=== PATIENT | male | born 1930 | race Caucasian/White ===

== ENCOUNTER 2016-05-01 14:32 | Inpatient (IN) | payer OTHER ==
[~2016-05-01] VITALS: Ht 172.7 cm; Wt 63.2 kg
[~2016-05-01 14:32] MED LIST: ETOMIDATE 20 MG INJ ONE; SUCCINYLCHOLINE CHLORIDE 100 MG/5 ML SYG IV ONE
[2016-05-01 18:00] VITALS: BP 103/57; PULSE 79; RESP 17
[2016-05-01 18:35] VITALS: Ht 172.7 cm; Wt 63.2 kg
[2016-05-01 18:42] VITALS: PULSE 85
[2016-05-01 20:00] VITALS: BP 113/59; RESP 18
[2016-05-01 20:10] VITALS: PULSE 79
--- NOTE | 2016-05-01 20:27 | QN ---
Documentation Comment [id number] HOLLI LINDER MD May 01, 2016 20:27
[2016-05-01] MEDS ORDERED: ONDANSETRON 4 MG INJ IV PRN (20:30)
[2016-05-01] MEDS ORDERED: NACL 0.9% 3 ML SYG IV SCH (20:30)
[2016-05-01] MEDS ORDERED: BISACODYL 10 MG SUPP PR PRN (20:30)
[2016-05-01] MEDS ORDERED: ACETAMINOPHEN 650 MG SUPP PR PRN (20:30)
[2016-05-01] MEDS ORDERED: MAGNESIUM HYDROXIDE 30ML CUP PO PRN (20:30)
[2016-05-01] MEDS ORDERED: NA PHOSPHATE/BIPHOS 133 ML ENEMA PR PRN (20:30)
[2016-05-01] MEDS ORDERED: BISACODYL (EC) 5 MG TAB PO PRN (20:30)
[2016-05-01] MEDS ORDERED: LEVOFLOXACIN 500MG/D5W (PMX) 100 ML IVPB SCH (20:30)
[2016-05-01 21:49] LABS: TROPONIN-I 0.02 ng/ml (0.00-0.12)
[2016-05-01 21:50] LABS: CK-MB 3.87 ng/ml (0.0-2.4)
[2016-05-01] MEDS: METHYLPREDNISOLONE 40 MG INJ IV SCH (22:27)
[2016-05-02] VITALS (13 sets, daily range): BP systolic 102–120; BP diastolic 55–78; PULSE 83–90; RESP 15–84
--- NOTE | 2016-05-02 01:03 | HP ---
DATE OF ADMISSION: 05/01/2016 HISTORY OF PRESENT ILLNESS: An elderly male who himself is unable to give any detailed history pres ented from [facility] with shortness of breath, noted to have bronchitis and is being admit aislinn for further management. There is no family member at bedside, and the record from the transferr [facility] is limited. PAST MEDICAL HISTORY: Cannot be obtained. ALLERGY HISTORY, FAMILY HISTORY, SOCIAL HISTORY: Not available. REVIEW OF SYSTEMS: Cannot be obtained. PHYSICAL EXAMINATION: GENERAL: The patient is awake, weak, slow and lethargic but is mumbling at this point. VITAL SIGNS: Pulse 85, blood pressure 103/57. HEENT: Head is atraumatic, normocephalic. Right eye is cloudy. Mouth is dry, and patient is bleed ing from mouth and has no oral thrush noted. NECK: Supple. LUNGS: Few rhonchi, some wheezes. CARDIOVASCULAR: S1, S2 normal. ABDOMEN: Soft, nontender. Bowel sounds plus. No palpable mass. EXTREMITIES: There is no cyanosis, clubbing or edema. CENTRAL NERVOUS SYSTEM: The patient is awake, alert, moving both upper and lower extremities by him self. LABORATORY DATA: From this admission are not available. IMPRESSION: 1. Incomplete database. 2. Bronchitis, rule out pneumonia, rule out underlying coronary artery disease, rule out ischemic h eart disease. 3. History of glaucoma. 4. Incomplete database. PLAN: Get detailed history when family members are available, review home medication which is not a vailable. The patient will be on bronchodilator, antibiotic, steroid, DVT prophylaxis. A 2D echo w ill be ordered. Troponin will be sent. Orders were done. Dictated By: HOLLI LINDER MD BS/NTS Conf#: [id number] DID#: [id number]
[2016-05-02 03:35] LABS: TROPONIN-I 0.026 ng/ml (0.00-0.12)
[2016-05-02 03:57] LABS: CK-MB 3.74 ng/ml (0.0-2.4)
[2016-05-02] MEDS: PANTOPRAZOLE 40 MG INJ IV SCH (05:14)
[2016-05-02] MEDS: ALBUTEROL/IPRATROPIUM (NEB) 3 ML AMP HHN SCH ×4 (05:48→21:11)
[2016-05-02 07:49] LABS: ADD SCAN DIFF NO
[2016-05-02 08:00] LABS: BASOPHILS % 0.1 % (0.0-2.0); HEMATOCRIT 43.4 % (42.0-52.0); LYMPHOCYTES # 0.6 10^3/ul (0.8-2.9); MEAN CORPUSCULAR HEMOGLOBIN 30.1 pg (29.0-33.0); MEAN CORPUSCULAR HGB CONC 32.3 g/dl (32.0-37.0); MEAN CORPUSCULAR VOLUME 93.3 fl (82.0-101.0); MEAN PLATELET VOLUME 11.4 fl (7.4-10.4); MONOCYTE # 0.5 10^3/ul (0.3-0.9); MONOCYTES % 2.4 % (0.0-11.0); NEUTROPHIL # 18.9 10^3/ul (1.6-7.5); NEUTROPHILS % 93.9 % (39.0-77.0); PLATELET COUNT 259 10^3/UL (140-415); RED BLOOD COUNT 4.65 10^6/ul (4.70-6.10); RED CELL DISTRIBUTION WIDTH 13.6 % (11.5-14.5); WHITE BLOOD COUNT 20.2 10^3/ul (4.8-10.8)
[2016-05-02 08:29] LABS: ALBUMIN 3.6 g/dl (3.3-4.9)
[2016-05-02 08:32] LABS: ALBUMIN/GLOBULIN RATIO 0.92; BILIRUBIN,INDIRECT 0.1 mg/dl (0-1.1); BILIRUBIN,TOTAL 0.1 mg/dl (0.2-1.3); CREATININE 1.23 mg/dl (0.61-1.24); TOTAL PROTEIN 7.5 g/dl (6.1-8.1)
[2016-05-02 08:33] LABS: CALCIUM 9.3 mg/dl (8.4-10.2)
[2016-05-02] MEDS: METHYLPREDNISOLONE 40 MG INJ IV SCH ×2 (08:43→22:02)
[2016-05-02] MEDS: ENOXAPARIN 30 MG/0.3 ML SYG SC SCH (08:54)
--- NOTE | 2016-05-02 11:40 | RADRPT ---
PROCEDURE: XR Chest. CLINICAL INDICATION: Cough and pneumonia. TECHNIQUE: Single frontal view. COMPARISON: None. FINDINGS: There is mild atelectasis at the lung bases. The lung bases are otherwise normal. The heart is enlarged. There is calcification in the aorta consistent with atherosclerosis. There is a right-sided dual lead permanent pacemaker. There is no pleural effusion. There is no pneumothorax. IMPRESSION: 1. Mild atelectasis at the lung bases. 2. Cardiomegaly and atherosclerosis. 3. Right-sided dual lead permanent pacemaker. RPTAT: QQ .Henrik Reyna MD, MD Date Time Electronically viewed and signed by .Henrik Reyna MD, MD on 05/02/2016 11:39 .R/
--- NOTE | 2016-05-02 20:17 | RADRPT ---
Echocardiogram Report Patient Name: MAME HERBERT Gender: Male Date: 1930 Study Date: 02-May-2016 Hand Cell Tuber: Lew Dickens [facility] [place] Location: 508 Ref. Physician: HOLLI LINDER Quality: Good Procedures: Transthoracic echocardiogram with complete 2D, M-Mode, and doppler examination. Indications: Coronary Artery Disease. 2D/M Mode Doppler Measurement Value Normal Ranges Measurement Value Normal Ranges LVIDd 2D 6.5 3.5 - 5.6 cm AV Peak Ulices 1.1 m/sec LVIDs 2D 4.5 2.1 - 4.1 cm AV Peak PG 4.8 mmHg LVPWd 2D 0.9 0.6 - 1.1 cm AI Peak PG 40.4 mmHg IVSd 2D 1.0 0.6 - 1.1 cm AI Peak Ulices 3.2 m/sec AoR Diam 2D 2.8 2.0 - 3.7 cm AI PHT 921.2 msec EDV 2D 217.9 cm3 LVOT Peak Ulices 0.7 m/sec ESV 2D 90.2 cm3 LVOT Peak PG 2.1 mmHg LA Dimen 2D 3.7 2.3 - 4.0 cm MV E Peak Ulices 0.9 m/sec MV A Peak Ulices 0.5 m/sec MV E/A 1.7 MV Decel Time 93 msec MV Decel [place] 9 MV E/A 1.7 TR Peak Ulices 2.5 m/sec TR Peak PG 24.8 mmHg RVSP 33.0 mmHg Findings Left Ventricle: Normal left ventricular wall thickness. Moderate enlargement of left ventricle cavity. Severe global left ventricular systolic dysfunction. Ejection fraction is visually estimated at 2530 %. Right Ventricle: Pacemaker right heart. Left Atrium: The left atrium is normal in size. Right Atrium: The right atrium is normal in size. Mitral Valve: Mitral valve leaflets appear mildly thickened. Mild mitral annular calcification. Moderate mitral valve regurgitation. The regurgitation jet is eccentrically directed which may underestimate the severity of mitral regurgitation. Aortic Valve: No hemodynamically significant aortic stenosis by doppler. Aortic cusps appear mildly calcified. Mild aortic valve regurgitation. Tricuspid Valve: Normal appearance and function of the tricuspid valve with trace physiologic regurgitation. Normal right ventricular systolic pressure. Pulmonic Valve: Pulmonic valve not well visualized. Pericardium: Normal pericardium with no significant pericardial effusion. Aorta: Normal aortic root. IVC: Dilated IVC with respiratory collapse consistent with elevated right atrial pressure. Conclusions 1.Normal left ventricular wall thickness. Moderate enlargement of left ventricle cavity. Severe global left ventricular dysfunction. Estimated LVEF 25-30%. 2.Moderate mitral valve regurgitation. The regurgitation jet is eccentrically directed which may underestimate the severity of mitral regurgitation. 3.Mild aortic valve regurgitation. 4.Normal appearance and function of the tricuspid valve with trace physiologic regurgitation. 5.Normal right ventricular systolic pressure. 6.Pacemaker right heart. Electronically Signed By: Clyde Kendrick 02-May-2016 20:16:22 -0800 Patient Name: MAME HERBERT Study Date: 02-May-2016 [id number]
--- NOTE | 2016-05-02 21:18 | PN ---
Date/Time of Note Date/Time of Note DATE: 05/02/16 TIME: 21:16 Assessment/Plan VTE Prophylaxis VTE Prophylaxis Intervention: other Lines/Catheters IV [facility]from [facility] Saline Lock Assessment/Plan Chief Complaint/Hosp Course IMPRESSION: The patient has 1. Chronic obstructive pulmonary disease. 2. Obesity. 3. Hypertension. 4. anxiety 5. PACEMAKER HX plan cardio eval Problems: Subjective 24 Hr Interval Summary Respiratory: no complaints Cardiovascular: no complaints Exam/Review of Systems Vital Signs Vitals Vital Signs Date Time Temp Pulse Resp B/P Pulse Ox O2 Delivery O2 Flow Rate FiO2 05/02/16 21:13 2.0 05/02/16 21:13 50 20 Nasal Cannula 05/02/16 15:04 98.8 102/55 95 05/02/16 05:49 32 Intake and Output 05/01/16 05/01/16 05/02/16 15:00 23:00 07:00 Intake Total 50 ml Output Total 1000 ml Balance -950 ml Exam Respiratory: clear to auscultation Cardiovascular: regular rate and rhythm Gastrointestinal: bowel sounds (+), soft Results Result Diagram: 05/02/16 0655 05/02/16 0655 Results 24 hrs Laboratory Tests Test 05/02/16 02:00 05/02/16 06:55 Creatine Kinase 78 Creatine Kinase Index 4.8 Creatinine Kinase MB (Mass) 3.74 H Troponin I 0.026 Alanine Aminotransferase (ALT/SGPT) 30 Albumin 3.6 Albumin/Globulin Ratio 0.92 Alkaline Phosphatase 38 L Anion Gap 19 H Aspartate Amino Transf (AST/SGOT) 32 B-Type Natriuretic Peptide 3260 H Basophils # 0.0 Basophils % 0.1 Blood Urea Nitrogen 37 H Calcium Level 9.3 Carbon Dioxide Level 25 Chloride Level 101 Creatinine 1.23 Direct Bilirubin 0.00 Eosinophils # 0.0 Eosinophils % 0.0 Globulin 3.90 H Glucose Level 137 Hematocrit 43.4 Hemoglobin 14.0 Indirect Bilirubin 0.1 Lymphocytes # 0.6 L Lymphocytes % 3.0 L Mean Corpuscular Hemoglobin 30.1 Mean Corpuscular Hemoglobin Concent 32.3 Mean Corpuscular Volume 93.3 Mean Platelet Volume 11.4 H Monocytes # 0.5 Monocytes % 2.4 Neutrophils # 18.9 H Neutrophils % 93.9 H Nucleated Red Blood Cells # 0.0 Nucleated Red Blood Cells % 0.0 Platelet Count 259 Potassium Level 4.0 Red Blood Count 4.65 L Red Cell Distribution Width 13.6 Sodium Level 141 Thyroid Stimulating Hormone (TSH) 0.785 Total Bilirubin 0.1 L Total Protein 7.5 White Blood Count 20.2 H Medications Medications Current Medications Ondansetron HCl (Zofran Inj) 4 mg Q6H PRN IV NAUSEA AND/OR VOMITING; Start 05/01 at 20:30 Acetaminophen (Tylenol Tab) 650 mg Q6H PRN PO PAIN LEVEL 1-3 OR FEVER; Start at 20:30 Acetaminophen (Tylenol Supp) 650 mg Q6H PRN ND PAIN LEVEL 1-3 OR FEVER; Start 05/01/16 at 20:30 Docusate Sodium (Colace) 100 mg Q12H PRN PO CONSTIPATION; Start 05/01/16 at 20: 30 Magnesium Hydroxide (Milk Of Mag) 30 ml DAILY PRN PO CONSTIPATION; Start at 20:30 Bisacodyl (Dulcolax) 5 mg DAILY PRN PO CONSTIPATION; Start 05/01/16 at 20:30 Bisacodyl (Dulcolax Supp) 10 mg DAILY PRN [place] CONSTIPATION; Start 05/01/16 at 20: 30 Sodium Biphosphate/ Sodium Phosphate (Fleet Enema) 133 ml DAILY PRN ND CONSTIPATION; Start 05/01/16 at 20:30 Pantoprazole (Protonix Iv) 40 mg DAILY@06 IV Last administered on 05/02/16 05: 14; Admin Dose 40 MG; Start 05/02/16 at 06:00 Enoxaparin Sodium (Lovenox) 30 mg DAILY SC Last administered on 05/02/16 08:54 ; Admin Dose 30 MG; Start 05/02/16 at 09:00 Methylprednisolone Sodium Succinate 40 mg 40 mg Q12 IV Last administered on 05/02 08:43; Admin Dose 40 MG; Start 05/01/16 at 21:00 Levofloxacin/ Dextrose (Levaquin 250 Mg/ D5W 50 ml (Pmx)) 50 ml @ 100 mls/hr Q24H IVPB ; Start 05/02/16 at 23:00 Lisinopril (Zestril) 2.5 mg DAILY PO ; Start 05/03/16 at 09:00 HOLLI LINDER MD May 02, 2016 21:18
--- NOTE | 2016-05-02 21:29 | CONS ---
DATE OF ADMISSION: 05/01/2016 DATE OF CONSULTATION: 05/02/2016 REASON FOR CONSULTATION: Permanent pacemaker, assess function, as well as shortness of breath, asse ss for congestive heart failure. REQUESTING PHYSICIAN: Dr. Bladimir Linder HISTORY OF PRESENT ILLNESS: Mr. Mcdaniels is an 85-year-old male with a history of bradycardia, status permanent pacemaker, glaucoma, legally blind, BPH, also asthma medications who initially presented t o the outside hospital with worsening shortness of breath, wheezing noted by son who is at bedside. Additionally, the patient had complaints of abdominal pain. At outside hospital, temperature 96.7, pulse of 82, respiratory rate 20, saturating 93%, blood pressure 124/82. The patient's labs with w gio cell count of 16.8, hemoglobin 13.7, platelet count 272. Sodium 139, BUN 26, creatinine 1.0. Troponin less than 0.01. K of 4.8. The patient was initially treated with bronchodilators, antibio tics of levofloxacin, and thereafter transferred to [facility] due to insurance re asons. Since arrival at [facility], the patient has had relatively stable blood p ressures in the lower end of 100 to 120, pulses in the 80s to 90s and has had a regular rhythm by te lemetry, most likely consistent with sinus rhythm versus atrial flutter due to baseline artifact. T he patient's labs are notable for white cell count elevated at 20.2, hemoglobin 14, platelet count 2 59. Negative troponin. Sodium 141, potassium 4.0, creatinine 1.23, BUN of 37. The patient has had a chest x-ray revealing mild atelectasis at the lung bases, cardiomegaly, atherosclerosis, right-si ded dual-lead permanent pacemaker. PAST MEDICAL HISTORY: As above in HPI. MEDICATIONS CURRENTLY IN HOSPITAL: 1. Levofloxacin. 2. Lovenox 30 mg subq daily. 3. DuoNebs. 4. Protonix 40 mg IV daily. 5. Solu-Medrol 40 mg IV q.12h. 6. Zofran p.r.n. 7. Tylenol p.r.n. 8. Colace p.r.n. 9. Dulcolax p.r.n. ALLERGIES: NO KNOWN DRUG ALLERGIES. SOCIAL HISTORY: Prior tobacco intake times multiple years. No ETOH or illicit drug use. FAMILY HISTORY: No history of sudden cardiac or early CAD. REVIEW OF SYSTEMS: As above in HPI. CONSTITUTIONAL: No fevers, chills. PULMONARY: Shortness of breath. CARDIOVASCULAR: No current chest pain. GASTROINTESTINAL: No vomiting. GENITOURINARY: No hematuria. MUSCULOSKELETAL: Degenerative joint disease. PSYCHIATRIC: No documented psychiatric history. NEUROLOGIC: No documented history of CVA. PHYSICAL EXAMINATION: VITAL SIGNS: Temperature 98.8, blood pressure 105/55, pulse 72, respiratory rate 20, satting 95%. GENERAL: The patient is awake, not communicating. NECK: JVP approximately 9 cm of water. CHEST: Upper airway chest rhonchorous sounds. HEART: Regular rate and rhythm. Normal S1, increased S2, I/ systolic murmur, nondisplaced PMI. ABDOMEN: Positive bowel sounds, soft. EXTREMITIES: No pitting edema, 1+ pulses bilaterally, posterior tibial. LABORATORIES: Most recent from today: Sodium 141, potassium 4.0, creatinine 1.23, BUN 27. Troponi n negative x2. White blood cell count 20.2, hemoglobin 14, platelet count 259. IMAGING STUDIES: As above in HPI. No further imaging studies for my review at this time. ELECTROCARDIOGRAM: No electrocardiograms for my review at this time. IMPRESSION: 1. Shortness of breath, assess for congestive heart failure. 2. Permanent pacemaker, assess function. 3. Possible cardiac arrhythmia. 4. History of asthma/chronic obstructive pulmonary disease. 5. Glaucoma. 6. History of bradycardia. 7. Hypertension, labile. 8. Leukocytosis. 9. Altered mental state. RECOMMENDATIONS: 1. At this time would maintain patient on telemetry monitoring to follow rhythm and rate control cl osely. 2. Would complete the patient's rule out for myocardial infarction to ensure the patient's constell ation of systems are not due to an acute coronary syndrome, such as acute myocardial infarction. Th us, send a final troponin. 3. Continue the patient's current antibiotics, steroids, and bronchodilators. 4. Check a BNP to further assess patient's current volume status. 5. Check a 2D echocardiogram to further assess patient's ejection fraction, wall motion, and rule o ut any major valve abnormalities. Thank you for allowing me to take part in the care of this patient. I will continue to follow along very closely with you with further recommendations will be made as the patient progresses through h is inpatient hospital clinical course. Dictated By: JAYA FAY/TRACY Conf#: [id number] DID#: [id number] CC: BLADIMIR LINDER MD;*EndCC*
[2016-05-03] VITALS (13 sets, daily range): BP systolic 114–142; BP diastolic 56–65; PULSE 80–91; RESP 17–20
[2016-05-03] MEDS: LEVOFLOXACIN 250MG/D5W (PMX) 50 ML IVPB SCH ×2 (01:07→23:25)
[2016-05-03 06:54] LABS: ADD SCAN DIFF NO
[2016-05-03 07:03] LABS: ABNORMAL IP MESSAGE 1; HEMATOCRIT 41.6 % (42.0-52.0); HEMOGLOBIN 13.5 g/dl (14.0-18.0); MEAN CORPUSCULAR HEMOGLOBIN 30.8 pg (29.0-33.0); MEAN CORPUSCULAR HGB CONC 32.5 g/dl (32.0-37.0); MEAN CORPUSCULAR VOLUME 94.8 fl (82.0-101.0); MEAN PLATELET VOLUME 11.5 fl (7.4-10.4); PLATELET COUNT 261 10^3/UL (140-415); RED BLOOD COUNT 4.39 10^6/ul (4.70-6.10); RED CELL DISTRIBUTION WIDTH 13.5 % (11.5-14.5); WHITE BLOOD COUNT 25.3 10^3/ul (4.8-10.8)
[2016-05-03 07:15] LABS: ALBUMIN 3.2 g/dl (3.3-4.9); POTASSIUM 4.6 mmol/L (3.5-5.1)
[2016-05-03 07:17] LABS: CREATININE 1.15 mg/dl (0.61-1.24)
[2016-05-03 07:18] LABS: BILIRUBIN,INDIRECT 0.1 mg/dl (0-1.1); BILIRUBIN,TOTAL 0.1 mg/dl (0.2-1.3); CALCIUM 9.3 mg/dl (8.4-10.2); TOTAL PROTEIN 6.4 g/dl (6.1-8.1)
[2016-05-03] MEDS: PANTOPRAZOLE 40 MG INJ IV SCH (07:29)
[2016-05-03 07:40] LABS: CHOL/HDL RATIO 2.4 RATIO
[2016-05-03] MEDS: ALBUTEROL/IPRATROPIUM (NEB) 3 ML AMP HHN SCH ×3 (08:26→20:01)
[2016-05-03] MEDS: LISINOPRIL 5 MG TAB PO SCH (09:14)
[2016-05-03] MEDS: METHYLPREDNISOLONE 40 MG INJ IV SCH ×2 (09:14→20:54)
[2016-05-03] MEDS: ENOXAPARIN 30 MG/0.3 ML SYG SC SCH (09:39)
[2016-05-03 09:58] LABS: LYMPHOCYTES # 1.5 10^3/ul (0.8-2.9); NEUTROPHIL # 22.8 10^3/ul (1.6-7.5)
[2016-05-03] MEDS: DOCUSATE SODIUM 100 MG CAP PO PRN (11:52)
--- NOTE | 2016-05-03 12:53 | CONS ---
Date/Time of Note Date/Time of Note DATE: 05/03/16 TIME: 12:46 Assessment/Plan Assessment/Plan Chief Complaint/Hosp Course IMPRESSION: 1. Shortness of breath, assess for congestive heart failure- 2.CHF-systolic acute on chronic LVEF 25-30% by echo this admit. negative troponin x 3 this admit 3. Permanent pacemaker, assess function. 4. Possible cardiac arrhythmia. 5. History of asthma/chronic obstructive pulmonary disease. 6. Glaucoma. 7. History of bradycardia. 8. Hypertension, labile. 9. Leukocytosis. 10. Altered mental state. Recc: -Tele -serial ecg's -Continue ACEI and start BB low dose -Will start gentle daily alsix diuresis and follow volume status closely -Continue steroids/bronchodilators Problems: Consultation Date/Type/Reason Admit Date/Time May 01, 2016 at 20:18 Initial Consult Date 05/02/16 Type of Consultation: Cardiology Reason for Consultation CHF/sob Referring Provider: HOLLI LINDER Exam/Review of Systems Vital Signs Vitals Vital Signs Date Time Temp Pulse Resp B/P Pulse Ox O2 Delivery O2 Flow Rate FiO2 05/03/16 12:09 80 05/03/16 11:45 97.5 18 122/60 96 05/03/16 08:27 Nasal Cannula 2.0 05/02/16 05:49 32 Intake and Output 05/02/16 05/02/16 05/03/16 15:00 23:00 07:00 Intake Total 320 ml 200 ml Output Total 350 ml 350 ml Balance -30 ml -150 ml Exam Review of Systems: CONSTITUTIONAL: No fevers, chills. PULMONARY: Mild sob CARDIOVASCULAR: No chest pain/palpitations GASTROINTESTINAL: No nausea/vomiting. GENITOURINARY: No hematuria/dysuria. MUSCULOSKELETAL: No myagias/arthalgias. PSYCHIATRIC: The patient denies depression. NEUROLOGIC: lethargic Constitutional: alert Psych: no complaints Head: normocephalic ENMT: mucosa pink and moist Neck: jvd (9cm water), supple Respiratory: diminished breath sounds (at bases/B) Cardiovascular: regular rate and rhythm Gastrointestinal: non-tender, soft Musculoskeletal: muscle tone (normal) Extremities: edema (none) Neurological: other (No focal deficits) Results Result Diagram: 05/03/16 0614 05/03/16613 Results 24 hrs Laboratory Tests Test 05/03/16 00:30 05/03/16 06:14 Troponin I 0.055 0.037 Alanine Aminotransferase (ALT/SGPT) 28 Albumin 3.2 L Albumin/Globulin Ratio 1.00 Alkaline Phosphatase 33 L Anion Gap 15 Aspartate Amino Transf (AST/SGOT) 32 Blood Urea Nitrogen 48 #H Calcium Level 9.3 Carbon Dioxide Level 29 Chloride Level 104 Cholesterol Level 105 Cholesterol/HDL Ratio 2.4 Creatinine 1.15 Direct Bilirubin 0.00 Globulin 3.20 Glucose Level 125 HDL Cholesterol 43 Hematocrit 41.6 L Hemoglobin 13.5 L Indirect Bilirubin 0.1 LDL Cholesterol, Calculated 52 Lymphocytes # 1.5 Lymphocytes % 6.0 L Mean Corpuscular Hemoglobin 30.8 Mean Corpuscular Hemoglobin Concent 32.5 Mean Corpuscular Volume 94.8 Mean Platelet Volume 11.5 H Monocytes # 1.0 H Monocytes % 4.0 Neutrophils # 22.8 H Neutrophils % 90.0 H Platelet Count 261 Potassium Level 4.6 Red Blood Count 4.39 L Red Cell Distribution Width 13.5 Sodium Level 143 Total Bilirubin 0.1 L Total Protein 6.4 # Triglycerides Level 51 White Blood Count 25.3 #H Medications Medications Current Medications Ondansetron HCl (Zofran Inj) 4 mg Q6H PRN IV NAUSEA AND/OR VOMITING; Start 05/01 at 20:30 Acetaminophen (Tylenol Tab) 650 mg Q6H PRN PO PAIN LEVEL 1-3 OR FEVER; Start at 20:30 Acetaminophen (Tylenol Supp) 650 mg Q6H PRN [place] PAIN LEVEL 1-3 OR FEVER; Start 05/01/16 at 20:30 Docusate Sodium (Colace) 100 mg Q12H PRN PO CONSTIPATION Last administered on 11:52; Admin Dose 100 MG; Start 05/01/16 at 20:30 Magnesium Hydroxide (Milk Of Mag) 30 ml DAILY PRN PO CONSTIPATION Last administered on 05/03/16 11:52; Admin Dose 30 ML; Start 05/01/16 at 20:30 Bisacodyl (Dulcolax) 5 mg DAILY PRN PO CONSTIPATION; Start 05/01/16 at 20:30 Bisacodyl (Dulcolax Supp) 10 mg DAILY PRN [place] CONSTIPATION; Start 05/01/16 at 20: 30 Sodium Biphosphate/ Sodium Phosphate (Fleet Enema) 133 ml DAILY PRN [place] CONSTIPATION; Start 05/01/16 at 20:30 Pantoprazole (Protonix Iv) 40 mg DAILY@06 IV Last administered on 05/03/16 07: 29; Admin Dose 40 MG; Start 05/02/16 at 06:00 Enoxaparin Sodium (Lovenox) 30 mg DAILY SC Last administered on 05/03/16 09:39 ; Admin Dose 30 MG; Start 05/02/16 at 09:00 Methylprednisolone Sodium Succinate 40 mg 40 mg Q12 IV Last administered on 05/03 09:14; Admin Dose 40 MG; Start 05/01/16 at 21:00 Levofloxacin/ Dextrose (Levaquin 250 Mg/ D5W 50 ml (Pmx)) 50 ml @ 100 mls/hr Q24H IVPB Last administered on 05/03/16 01:07; Admin Dose 100 MLS/HR; Start 05/02/16 at 23:00 Lisinopril (Zestril) 2.5 mg DAILY PO Last administered on 05/03/16 09:14; Admin Dose 2.5 MG; Start 05/03/16 at 09:00 JAYA GORE May 03, 2016 12:53
[2016-05-03] MEDS: METOPROLOL (XL) 25 MG TAB PO SCH (13:53)
[2016-05-03] MEDS: FUROSEMIDE 20 MG INJ IV SCH (13:54)
--- NOTE | 2016-05-03 15:32 | PN ---
Date/Time of Note Date/Time of Note DATE: 05/03/16 TIME: 15:29 Assessment/Plan VTE Prophylaxis VTE Prophylaxis Intervention: other Lines/Catheters IV Catheter Type (from Nrs): Saline Lock Urinary Cath still in place: Yes Reason Cath still needed: other (indicate) Assessment/Plan Chief Complaint/Hosp Course IMPRESSION: The patient has 1. Chronic obstructive pulmonary disease. 2. Obesity. 3. Hypertension. 4. anxiety 5. PACEMAKER HX 6 low ef 7 leucocytosis plan cardio eval dec steroid Problems: Subjective 24 Hr Interval Summary Respiratory: shortness of breath (better) Cardiovascular: no complaints Exam/Review of Systems Vital Signs Vitals Vital Signs Date Time Temp Pulse Resp B/P Pulse Ox O2 Delivery O2 Flow Rate FiO2 05/03/16 15:01 85 16 95 Nasal Cannula 2.0 05/03/16 11:45 97.5 122/60 05/02/16 05:49 32 Intake and Output 05/02/16 05/02/16 05/03/16 15:00 23:00 07:00 Intake Total 320 ml 200 ml Output Total 350 ml 350 ml Balance -30 ml -150 ml Exam Neck: supple Respiratory: clear to auscultation Cardiovascular: regular rate and rhythm Gastrointestinal: soft Musculoskeletal: nl extremities to inspection Results Result Diagram: 05/03/1614 05/03/16 0614 Results 24 hrs Laboratory Tests Test 05/03/16 00:30 05/03/16 06:14 Troponin I 0.055 0.037 Alanine Aminotransferase (ALT/SGPT) 28 Albumin 3.2 L Albumin/Globulin Ratio 1.00 Alkaline Phosphatase 33 L Anion Gap 15 Aspartate Amino Transf (AST/SGOT) 32 Blood Urea Nitrogen 48 #H Calcium Level 9.3 Carbon Dioxide Level 29 Chloride Level 104 Cholesterol Level 105 Cholesterol/HDL Ratio 2.4 Creatinine 1.15 Direct Bilirubin 0.00 Globulin 3.20 Glucose Level 125 HDL Cholesterol 43 Hematocrit 41.6 L Hemoglobin 13.5 L Indirect Bilirubin 0.1 LDL Cholesterol, Calculated 52 Lymphocytes # 1.5 Lymphocytes % 6.0 L Mean Corpuscular Hemoglobin 30.8 Mean Corpuscular Hemoglobin Concent 32.5 Mean Corpuscular Volume 94.8 Mean Platelet Volume 11.5 H Monocytes # 1.0 H Monocytes % 4.0 Neutrophils # 22.8 H Neutrophils % 90.0 H Platelet Count 261 Potassium Level 4.6 Red Blood Count 4.39 L Red Cell Distribution Width 13.5 Sodium Level 143 Total Bilirubin 0.1 L Total Protein 6.4 # Triglycerides Level 51 White Blood Count 25.3 #H Medications Medications Current Medications Ondansetron HCl (Zofran Inj) 4 mg Q6H PRN IV NAUSEA AND/OR VOMITING; Start 05/01 at 20:30 Acetaminophen (Tylenol Tab) 650 mg Q6H PRN PO PAIN LEVEL 1-3 OR FEVER; Start at 20:30 Acetaminophen (Tylenol Supp) 650 mg Q6H PRN [place] PAIN LEVEL 1-3 OR FEVER; Start 05/01/16 at 20:30 Docusate Sodium (Colace) 100 mg Q12H PRN PO CONSTIPATION Last administered on 11:52; Admin Dose 100 MG; Start 05/01/16 at 20:30 Magnesium Hydroxide (Milk Of Mag) 30 ml DAILY PRN PO CONSTIPATION Last administered on 05/03/16 11:52; Admin Dose 30 ML; Start 05/01/16 at 20:30 Bisacodyl (Dulcolax) 5 mg DAILY PRN PO CONSTIPATION; Start 05/01/16 at 20:30 Bisacodyl (Dulcolax Supp) 10 mg DAILY PRN [place] CONSTIPATION; Start 05/01/16 at 20: 30 Sodium Biphosphate/ Sodium Phosphate (Fleet Enema) 133 ml DAILY PRN PA CONSTIPATION; Start 05/01/16 at 20:30 Pantoprazole (Protonix Iv) 40 mg DAILY@06 IV Last administered on 05/03/16 07: 29; Admin Dose 40 MG; Start 05/02/16 at 06:00 Enoxaparin Sodium (Lovenox) 30 mg DAILY SC Last administered on 05/03/16 09:39 ; Admin Dose 30 MG; Start 05/02/16 at 09:00 Methylprednisolone Sodium Succinate 40 mg 40 mg Q12 IV Last administered on 05/03 09:14; Admin Dose 40 MG; Start 05/01/16 at 21:00 Levofloxacin/ Dextrose (Levaquin 250 Mg/ D5W 50 ml (Pmx)) 50 ml @ 100 mls/hr Q24H IVPB Last administered on 05/03/16 01:07; Admin Dose 100 MLS/HR; Start 05/02/16 at 23:00 Lisinopril (Zestril) 2.5 mg DAILY PO Last administered on 05/03/16 09:14; Admin Dose 2.5 MG; Start 05/03/16 at 09:00 Metoprolol Succinate (Toprol Xl) 12.5 mg DAILY PO Last administered on 13:53; Admin Dose 12.5 MG; Start 05/03/16 at 14:00 Furosemide (Lasix) 20 mg DAILY IV Last administered on 05/03/16 13:54; Admin Dose 20 MG; Start 05/03/16 at 13:00 Tamsulosin HCl (Flomax) 0.4 mg HS PO ; Start 05/03/16 at 21:00; Status HOLLI SHERIFF MD May 03, 2016 15:31
--- NOTE | 2016-05-03 16:01 | RADRPT ---
Vent Rate: 84 bpm RR Interval: 0 msec [place] Interval: 188 msec QRS Duration: 136 msec QT Interval: 476 msec QTC Interval: 562 msec P-R-T [employer]: 130 - -32 - 135 degrees Possible Atrial Flutter Left axis deviation Right bundle branch block Minimal voltage criteria for LVH, may be normal variant Septal infarct , age undetermined T wave abnormality, consider lateral ischemia Abnormal ECG Electronically Signed By: Clyde Kendrick [id number]
[2016-05-03] MEDS: TAMSULOSIN (SR) 0.4 MG CAP PO SCH (20:54)
[2016-05-04] VITALS (13 sets, daily range): BP systolic 92–159; BP diastolic 47–75; PULSE 64–100; RESP 18–26
[2016-05-04] MEDS: PANTOPRAZOLE 40 MG INJ IV SCH (07:07)
[2016-05-04] MEDS: ASPIRIN 325 MG TAB PO SCH (08:25)
[2016-05-04] MEDS: LISINOPRIL 5 MG TAB PO SCH (08:26)
[2016-05-04] MEDS: FUROSEMIDE 20 MG INJ IV SCH (08:27)
[2016-05-04] MEDS: METOPROLOL (XL) 25 MG TAB PO SCH (08:27)
[2016-05-04] MEDS: METHYLPREDNISOLONE 40 MG INJ IV SCH ×2 (08:30→20:34)
[2016-05-04] MEDS: ALBUTEROL/IPRATROPIUM (NEB) 3 ML AMP HHN SCH ×3 (08:57→20:24)
[2016-05-04] MEDS ORDERED: ENOXAPARIN 40 MG/0.4 ML SYG SC SCH (09:00)
[2016-05-04] MEDS: ACETAMINOPHEN 325 MG TAB PO PRN (12:04)
--- NOTE | 2016-05-04 13:01 | PQ ---
Date/Time of Note Date/Time of Note DATE: 05/04/16 TIME: 12:31 Physician Query Documentation Request The following is also documented in the medical record: [___] Ejection fraction of % [___] Peripheral Edema [__x_] Left ventrical enlargement [___] Systolic dysfunction [__x] Shortness of breath [___] Jugular Venous Distension (JVD) [___] AZALIA Inhibitor [___] Other: [___] In response to this query: Condition(s): Present on Admission Y N U W Heart Failure: [___] Acute Systolic (Reduced EF) Heart Failure [___] [___] [___] [___] [___] Acute Diastolic (Preserved EF) Heart Failure [___] [___] [___] [___] [___] Acute Combined Systolic & Diastolic Heart Failure [___] [___] [___] [___] [___] Chronic Systolic (Reduced EF) Heart Failure [___] [___] [___] [___] [___] Chronic Diastolic (Preserved EF) Heart Failure [___] [___] [___] [___] [___] Chronic Combined Systolic & Diastolic Heart Failure [___] [___] [___] [___ ] [___] Acute on Chronic Systolic (Reduced EF) Heart Failure [___] [___] [___] [__ _] [___] Acute on Chronic Diastolic (Preserved EF) Heart Failure [___] [___] [___] [___] [___] Acute on Chronic Combined Systolic & Diastolic Heart Failure [___] [___] [ ___] [___] [___] Congestive Heart Failure [___] [___] [___] [___] [___] Rheumatic Heart Failure [___] [___] [___] [___] [___] Heart Failure Unspecified [___] [___] [___] [___] [___] Pleural Effusion, Unspecified [___] [___] [___] [___] [___] Pleural Effusion, Malignant [___] [___] [___] [___] [___] Fluid Overload, Unspecified [___] [___] [___] [___] [___] Acute Pulmonary Edema [___] [___] [___] [___] [___] Other: [___] [___] [___] [___] BAN ALVA May 04, 2016 12:47
--- NOTE | 2016-05-04 13:17 | CONS ---
Date/Time of Note Date/Time of Note DATE: 05/04/16 TIME: 13:13 Assessment/Plan Assessment/Plan Chief Complaint/Hosp Course IMPRESSION: 1. Shortness of breath, assess for congestive heart failure- 2. 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 negative troponin x 3 this admit 3. Permanent pacemaker, assess function. 4. Possible cardiac arrhythmia. 5. History of asthma/chronic obstructive pulmonary disease. 6. Glaucoma. 7. History of bradycardia. 8. Hypertension, labile. 9. Leukocytosis. 10. Altered mental state. Recc: -Tele -serial ecg's -Continue ACEI/BB -Contineu gentle daily lasix diuresis and follow volume status closely -Continue steroids/bronchodilators Problems: Consultation Date/Type/Reason Admit Date/Time May 01, 2016 at 20:18 Initial Consult Date 05/02/16 Type of Consultation: Cardiology Reason for Consultation CHF Referring Provider: HOLLI LINDER MD Exam/Review of Systems Vital Signs Vitals Vital Signs Date Time Temp Pulse Resp B/P Pulse Ox O2 Delivery O2 Flow Rate FiO2 05/04/16 12:10 92 05/04/16 11:00 97.8 18 92/47 95 05/04/16 08:57 3.0 05/04/16 08:57 Nasal Cannula 05/02/16 05:49 32 Intake and Output 05/03/16 05/03/16 05/04/16 15:00 23:00 07:00 Intake Total 720 ml 350 ml Output Total 750 ml 500 ml Balance -30 ml -150 ml Exam Review of Systems: CONSTITUTIONAL: No fevers, chills. PULMONARY: ongoing sob CARDIOVASCULAR: No chest pain/palpitations GASTROINTESTINAL: No nausea/vomiting. GENITOURINARY: No hematuria/dysuria. MUSCULOSKELETAL: No myagias/arthalgias. PSYCHIATRIC: The patient denies depression. NEUROLOGIC: No weakness Constitutional: alert, oriented Psych: no complaints Head: normocephalic ENMT: mucosa pink and moist Neck: jvd, supple Respiratory: diminished breath sounds Cardiovascular: regular rate and rhythm Gastrointestinal: non-tender, soft Musculoskeletal: muscle tone Extremities: edema (none) Neurological: other (No foxcal deficits) Results Result Diagram: 05/03/1661305/03/16613 Medications Medications Current Medications Ondansetron HCl (Zofran Inj) 4 mg Q6H PRN IV NAUSEA AND/OR VOMITING; Start 05/01 at 20:30 Acetaminophen (Tylenol Tab) 650 mg Q6H PRN PO PAIN LEVEL 1-3 OR FEVER Last administered on 05/04/16 12:04; Admin Dose 650 MG; Start 05/01/16 at 20:30 Acetaminophen (Tylenol Supp) 650 mg Q6H PRN [place] PAIN LEVEL 1-3 OR FEVER; Start 05/01/16 at 20:30 Docusate Sodium (Colace) 100 mg Q12H PRN PO CONSTIPATION Last administered on 11:52; Admin Dose 100 MG; Start 05/01/16 at 20:30 Magnesium Hydroxide (Milk Of Mag) 30 ml DAILY PRN PO CONSTIPATION Last administered on 05/03/16 11:52; Admin Dose 30 ML; Start 05/01/16 at 20:30 Bisacodyl (Dulcolax) 5 mg DAILY PRN PO CONSTIPATION; Start 05/01/16 at 20:30 Bisacodyl (Dulcolax Supp) 10 mg DAILY PRN [place] CONSTIPATION; Start 05/01/16 at 20: 30 Sodium Biphosphate/ Sodium Phosphate (Fleet Enema) 133 ml DAILY PRN [place] CONSTIPATION; Start 05/01/16 at 20:30 Pantoprazole 40 mg 40 mg DAILY@06 IV Last administered on 05/04/16 07:07; Admin Dose 40 MG; Start 05/02/16 at 06:00 Levofloxacin/ Dextrose (Levaquin 250 Mg/ D5W 50 ml (Pmx)) 50 ml @ 100 mls/hr Q24H IVPB Last administered on 05/03/16 23:25; Admin Dose 100 MLS/HR; Start 05/02/16 at 23:00 Lisinopril (Zestril) 2.5 mg DAILY PO Last administered on 05/04/16 08:26; Admin Dose 2.5 MG; Start 05/03/16 at 09:00 Metoprolol Succinate (Toprol Xl) 12.5 mg DAILY PO Last administered on 08:27; Admin Dose 12.5 MG; Start 05/03/16 at 14:00 Furosemide (Lasix) 20 mg DAILY IV Last administered on 05/04/16 08:27; Admin Dose 20 MG; Start 05/03/16 at 13:00 Tamsulosin HCl (Flomax) 0.4 mg HS PO Last administered on 05/03/16 20:54; Admin Dose 0.4 MG; Start 05/03/16 at 21:00 Methylprednisolone Sodium Succinate (Solu-Medrol) 20 mg Q12 IV Last administered on 05/04/16 08:30; Admin Dose 20 MG; Start 05/03/16 at 21:00 Enoxaparin Sodium (Lovenox) 40 mg DAILY SC Last administered on 05/04/16 08:30 ; Admin Dose 40 MG; Start 05/04/16 at 09:00 Aspirin (Aspirin) 325 mg DAILY PO Last administered on 05/04/16 08:25; Admin Dose 325 MG; Start 05/04/16 at 09:00 JAYA GORE May 04, 2016 13:16
--- NOTE | 2016-05-04 20:35 | RADRPT ---
Vent Rate: 99 bpm RR Interval: 0 msec MD Interval: 0 msec QRS Duration: 132 msec QT Interval: 414 msec QTC Interval: 531 msec P-R-T Rarden: 0 - -41 - 99 degrees Probable sinus rhythm Left axis deviation Right bundle branch block Minimal voltage criteria for LVH, may be normal variant Septal infarct , age undetermined Abnormal ECG Electronically Signed By: Clyde Kendrick [id number]
[2016-05-04] MEDS: TAMSULOSIN (SR) 0.4 MG CAP PO SCH (21:00)
--- NOTE | 2016-05-04 21:06 | PN ---
Date/Time of Note Date/Time of Note DATE: 05/04/16 TIME: 21:04 Assessment/Plan VTE Prophylaxis VTE Prophylaxis Intervention: other Lines/Catheters IV Catheter Type (from Nrsg): Saline Lock Urinary Cath still in place: Yes Reason Cath still needed: other (indicate) Assessment/Plan Chief Complaint/Hosp Course IMPRESSION: The patient has 1. Chronic obstructive pulmonary disease. 2. Obesity. 3. Hypertension. 4. anxiety 5. PACEMAKER HX 6 low ef 7 leucocytosis plan cardio eval dec steroid Problems: Subjective 24 Hr Interval Summary Respiratory: shortness of breath (+) Exam/Review of Systems Vital Signs Vitals Vital Signs Date Time Temp Pulse Resp B/P Pulse Ox O2 Delivery O2 Flow Rate FiO2 05/04/16 20:30 82 22 96 Nasal Cannula 4.0 05/04/16 19:47 97.6 159/58 05/02/16 05:49 32 Intake and Output 05/03/16 05/03/16 05/04/16 15:00 23:00 07:00 Intake Total 720 ml 350 ml Output Total 750 ml 500 ml Balance -30 ml -150 ml Exam Respiratory: clear to auscultation Cardiovascular: regular rate and rhythm Gastrointestinal: soft Musculoskeletal: nl extremities to inspection Results Result Diagram: 05/03/1661305/03/16613 Medications Medications Current Medications Ondansetron HCl (Zofran Inj) 4 mg Q6H PRN IV NAUSEA AND/OR VOMITING; Start 05/01 at 20:30 Acetaminophen (Tylenol Tab) 650 mg Q6H PRN PO PAIN LEVEL 1-3 OR FEVER Last administered on 05/04/16 12:04; Admin Dose 650 MG; Start 05/01/16 at 20:30 Acetaminophen (Tylenol Supp) 650 mg Q6H PRN [place] PAIN LEVEL 1-3 OR FEVER; Start 05/01/16 at 20:30 Docusate Sodium (Colace) 100 mg Q12H PRN PO CONSTIPATION Last administered on 11:52; Admin Dose 100 MG; Start 05/01/16 at 20:30 Magnesium Hydroxide (Milk Of Mag) 30 ml DAILY PRN PO CONSTIPATION Last administered on 05/03/16 11:52; Admin Dose 30 ML; Start 05/01/16 at 20:30 Bisacodyl (Dulcolax) 5 mg DAILY PRN PO CONSTIPATION; Start 05/01/16 at 20:30 Bisacodyl (Dulcolax Supp) 10 mg DAILY PRN [place] CONSTIPATION; Start 05/01/16 at 20: 30 Sodium Biphosphate/ Sodium Phosphate (Fleet Enema) 133 ml DAILY PRN [place] CONSTIPATION; Start 05/01/16 at 20:30 Pantoprazole 40 mg 40 mg DAILY@06 IV Last administered on 05/04/16 07:07; Admin Dose 40 MG; Start 05/02/16 at 06:00 Levofloxacin/ Dextrose (Levaquin 250 Mg/ D5W 50 ml (Pmx)) 50 ml @ 100 mls/hr Q24H IVPB Last administered on 05/03/16 23:25; Admin Dose 100 MLS/HR; Start 05/02/16 at 23:00 Lisinopril (Zestril) 2.5 mg DAILY PO Last administered on 05/04/16 08:26; Admin Dose 2.5 MG; Start 05/03/16 at 09:00 Metoprolol Succinate (Toprol Xl) 12.5 mg DAILY PO Last administered on 08:27; Admin Dose 12.5 MG; Start 05/03/16 at 14:00 Furosemide (Lasix) 20 mg DAILY IV Last administered on 05/04/16 08:27; Admin Dose 20 MG; Start 05/03/16 at 13:00 Tamsulosin HCl (Flomax) 0.4 mg HS PO Last administered on 05/03/16 20:54; Admin Dose 0.4 MG; Start 05/03/16 at 21:00 Methylprednisolone Sodium Succinate (Solu-Medrol) 20 mg Q12 IV Last administered on 05/04/16 20:34; Admin Dose 20 MG; Start 05/03/16 at 21:00 Enoxaparin Sodium (Lovenox) 40 mg DAILY SC Last administered on 05/04/16 08:30 ; Admin Dose 40 MG; Start 05/04/16 at 09:00 Aspirin (Aspirin) 325 mg DAILY PO Last administered on 05/04/16 08:25; Admin Dose 325 MG; Start 05/04/16 at 09:00 HOLLI LINDER MD May 04, 2016 21:05
[2016-05-04 22:20] LABS: ADD SCAN DIFF NO
[2016-05-04 22:22] LABS: ABNORMAL IP MESSAGE 1; HEMOGLOBIN 14.4 g/dl (14.0-18.0); MEAN CORPUSCULAR HEMOGLOBIN 30.4 pg (29.0-33.0); MEAN CORPUSCULAR VOLUME 94.9 fl (82.0-101.0); MEAN PLATELET VOLUME 11.2 fl (7.4-10.4); PLATELET COUNT 321 10^3/UL (140-415); RED BLOOD COUNT 4.74 10^6/ul (4.70-6.10); RED CELL DISTRIBUTION WIDTH 13.5 % (11.5-14.5); WHITE BLOOD COUNT 27.9 10^3/ul (4.8-10.8)
[2016-05-04 23:07] LABS: LYMPHOCYTES # 0.3 10^3/ul (0.8-2.9); MONOCYTE # 0.6 10^3/ul (0.3-0.9); NEUTROPHIL # 27.1 10^3/ul (1.6-7.5)
[2016-05-04] MEDS: LEVOFLOXACIN 250MG/D5W (PMX) 50 ML IVPB SCH (23:11)
[2016-05-05] VITALS (61 sets, daily range): BP systolic 39–157; BP diastolic 24–88; PULSE 80–109; RESP 13–28
[2016-05-05] MEDS: PANTOPRAZOLE 40 MG INJ IV SCH (05:27)
[2016-05-05] MEDS: METHYLPREDNISOLONE 40 MG INJ IV SCH (08:28)
[2016-05-05] MEDS: FUROSEMIDE 20 MG INJ IV SCH (08:29)
[2016-05-05] MEDS: METOPROLOL (XL) 25 MG TAB PO SCH (08:30)
[2016-05-05] MEDS: ASPIRIN 325 MG TAB PO SCH (08:30)
[2016-05-05] MEDS: LISINOPRIL 5 MG TAB PO SCH (08:31)
[2016-05-05] MEDS: ALBUTEROL/IPRATROPIUM (NEB) 3 ML AMP HHN SCH ×2 (09:02→14:00)
[2016-05-05] MEDS ORDERED: REGADENOSON 0.4 MG/5 ML SYG ONE (10:53)
--- NOTE | 2016-05-05 11:34 | CONS ---
Date/Time of Note Date/Time of Note DATE: 05/05/16 TIME: 11:32 Assessment/Plan Assessment/Plan Chief Complaint/Hosp Course IMPRESSION: 1. Shortness of breath with systolic congestive heart failure acute on chronic 2. 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 negative troponin x 3 this admit 3. Permanent pacemaker, assess function. 4. Possible cardiac arrhythmia. 5. History of asthma/chronic obstructive pulmonary disease. 6. Glaucoma. 7. History of bradycardia. 8. Hypertension, labile. 9. Leukocytosis. 10. Altered mental state. Recc: -Tele -serial ecg's -Continue ACEI/BB with slight increase -Continue gentle daily lasix diuresis and follow volume status closely -Continue steroids/bronchodilators -Lexiscan stress test today Problems: Consultation Date/Type/Reason Admit Date/Time May 01, 2016 at 20:18 Initial Consult Date 05/02/16 Type of Consultation: Cardiology Reason for Consultation CHF Referring Provider: HOLLI LINDER MD Exam/Review of Systems Vital Signs Vitals Vital Signs Date Time Temp Pulse Resp B/P Pulse Ox O2 Delivery O2 Flow Rate FiO2 05/05/16 10:00 98.3 103 18 152/70 93 05/05/16 09:06 Aerosol 35 Aerosol Mask 05/05/16 07:44 8.0 Intake and Output 05/04/16 05/04/16 05/05/16 15:00 23:00 07:00 Intake Total 1200 ml 130 ml Output Total 500 ml 500 ml Balance 700 ml -370 ml Exam Review of Systems: CONSTITUTIONAL: No fevers, chills. PULMONARY: moderate sob CARDIOVASCULAR: No chest pain/palpitations GASTROINTESTINAL: No nausea/vomiting. GENITOURINARY: No hematuria/dysuria. MUSCULOSKELETAL: No myagias/arthalgias. PSYCHIATRIC: The patient denies depression. NEUROLOGIC: Gen weakness Constitutional: alert Psych: no complaints Head: normocephalic ENMT: mucosa pink and moist Neck: jvd (9-10 cm water), supple Respiratory: diminished breath sounds (at bases/B) Cardiovascular: regular rate and rhythm Gastrointestinal: non-tender, soft Musculoskeletal: muscle weakness (generalized) Extremities: edema (none) Neurological: lethargic Results Result Diagram: 05/04/16 2211 05/03/16 0614 Results 24 hrs Laboratory Tests Test 05/04/16 22:11 Hematocrit 45.0 Hemoglobin 14.4 Lymphocytes # 0.3 L Lymphocytes % 1.0 L Mean Corpuscular Hemoglobin 30.4 Mean Corpuscular Hemoglobin Concent 32.0 Mean Corpuscular Volume 94.9 Mean Platelet Volume 11.2 H Monocytes # 0.6 Monocytes % 2.0 Neutrophils # 27.1 H Neutrophils % 97.0 H Platelet Count 321 # Red Blood Count 4.74 Red Cell Distribution Width 13.5 White Blood Count 27.9 H Medications Medications Current Medications Ondansetron HCl (Zofran Inj) 4 mg Q6H PRN IV NAUSEA AND/OR VOMITING; Start 05/01 at 20:30 Acetaminophen (Tylenol Tab) 650 mg Q6H PRN PO PAIN LEVEL 1-3 OR FEVER Last administered on 05/04/16 12:04; Admin Dose 650 MG; Start 05/01/16 at 20:30 Acetaminophen (Tylenol Supp) 650 mg Q6H PRN [place] PAIN LEVEL 1-3 OR FEVER; Start 05/01/16 at 20:30 Docusate Sodium (Colace) 100 mg Q12H PRN PO CONSTIPATION Last administered on 11:52; Admin Dose 100 MG; Start 05/01/16 at 20:30 Magnesium Hydroxide (Milk Of Mag) 30 ml DAILY PRN PO CONSTIPATION Last administered on 05/03/16 11:52; Admin Dose 30 ML; Start 05/01/16 at 20:30 Bisacodyl (Dulcolax) 5 mg DAILY PRN PO CONSTIPATION; Start 05/01/16 at 20:30 Bisacodyl (Dulcolax Supp) 10 mg DAILY PRN [place] CONSTIPATION; Start 05/01/16 at 20: 30 Sodium Biphosphate/ Sodium Phosphate (Fleet Enema) 133 ml DAILY PRN [place] CONSTIPATION; Start 05/01/16 at 20:30 Pantoprazole 40 mg 40 mg DAILY@06 IV Last administered on 05/05/16 05:27; Admin Dose 40 MG; Start 05/02/16 at 06:00 Levofloxacin/ Dextrose (Levaquin 250 Mg/ D5W 50 ml (Pmx)) 50 ml @ 100 mls/hr Q24H IVPB Last administered on 05/04/16 23:11; Admin Dose 100 MLS/HR; Start 05/02/16 at 23:00 Lisinopril (Zestril) 2.5 mg DAILY PO Last administered on 05/04/16 08:26; Admin Dose 2.5 MG; Start 05/03/16 at 09:00 Metoprolol Succinate (Toprol Xl) 12.5 mg DAILY PO Last administered on 08:27; Admin Dose 12.5 MG; Start 05/03/16 at 14:00 Furosemide (Lasix) 20 mg DAILY IV Last administered on 05/05/16 08:29; Admin Dose 20 MG; Start 05/03/16 at 13:00 Tamsulosin HCl (Flomax) 0.4 mg HS PO Last administered on 05/03/16 20:54; Admin Dose 0.4 MG; Start 05/03/16 at 21:00 Aspirin (Aspirin) 325 mg DAILY PO Last administered on 05/04/16 08:25; Admin Dose 325 MG; Start 05/04/16 at 09:00 Methylprednisolone Sodium Succinate (Solu-Medrol) 20 mg DAILY IV Last administered on 05/05/16 08:28; Admin Dose 20 MG; Start 05/05/16 at 09:00 JAYA GORE May 05, 2016 11:34
--- NOTE | 2016-05-05 12:05 | CARRPT ---
DATE OF PROCEDURE: 05/05/2016 REASON FOR STRESS TESTING: Cardiomyopathy ,decreased left ventricular ejection fraction, abnormal electrocardiogram, assess for ischemia. BASELINE VITAL SIGNS AND ELECTROCARDIOGRAM: Pulse 108, blood pressure 137/81. Electrocardiogram r eveals a probable sinus rhythm, sinus tachycardia at a rate 108 with borderline left axis deviation, right bundle branch block, secondary repolarization abnormalities with deep anterior T-wave inversi ons and lateral T-wave inversions. PROCEDURE: The patient underwent standard Lexiscan infusion protocol over 10 seconds followed by ra diolabeled tracer. The patient's test was stopped due to completion of protocol. Maximal achieved blood pressure during the test 170/70. Maximal heart rate during the test 115. ELECTROCARDIOGRAM FINDINGS: During Lexiscan infusion, the patient did not develop any new Lexiscan- induced ST or T-wave changes from baseline abnormalities, taken at occasional PVCs during stress rush ting. SYMPTOMS: Patient had ongoing shortness of breath pre- and post-stress testing, no definite chest p ain. IMPRESSION: 1. No Lexiscan-induced ST or T-wave changes from baseline abnormalities diagnostic for cardiac isch emia. 2. Shortness of breath during stress testing. 3. Positive premature ventricular contractions during stress testing. 4. Report of nuclear images to follow in separate dictation. Dictated By: JAYA FAY/TRACY Conf#: [id number] DID#: [id number] CC: HOLLI LINDER MD;*EndCC*
--- NOTE | 2016-05-05 13:32 | RADRPT ---
PROCEDURE: Nuclear medicine myocardial perfusion scan CLINICAL INDICATION: Chest pain TECHNIQUE: 30.7 mCi of technetium 99m Cardiolite was administered for the stress study. 9.6 mCi o f technetium 99m Cardiolite was administered for the resting study. The patient was stressed with 0. 4 mg of Lexiscan. Images were reviewed in the short axis, vertical long axis, and horizontal long a xis views. Wall motion was assessed and ejection fraction was calculated as well. Images were revie wed on a high-resolution PACS workstation. COMPARISON: None available FINDINGS: Left ventricular size is severely dilated. There is moderate soft tissue and bowel attenuation maurice fact. The stress tomographic images demonstrate a large area of moderate diminished perfusion along the basal to distal inferior and inferolateral wall. There is a small area of diminished perfusion along the distal anteroseptal wall. The resting tomographic images demonstrate a similar pattern. There is no evidence for reversible ischemia. Wall motion is remarkable for significant inferior w all akinesis and apical hypokinesis. The ejection fraction is calculated at 22%. IMPRESSION: 1. 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 2. Small area of diminished perfusion along the distal anteroseptal wall, presumably related to an old small SC as well. 3. Severe left ventricular dilatation. 4. No definite evidence for significant reversible ischemia. 5. Severe inferior wall akinesis with distal apical hypokinesis. 6. Severely depressed ejection fraction of 22%. RPTAT: HMJB .Konstantin Acuna MD, MD Date Time Electronically viewed and signed by .Konstantin Acuna MD, MD on 05/05/2016 13:31 .B/
[2016-05-05 14:34] LABS: AADO2 Arterial 48.7 mmHg (7.0-24.0); Allen Test ACCEPTAB; Arterial Base Excess -1.3 mmol/L (-3.0-3); Arterial COHb 0.1 % (0.0-3.0); Arterial Fraction of Oxyhgb 96.3 % (93.0-99.0); Arterial HCO3 26.6 mmol/L (22.0-26.0); Arterial MetHb 0.5 % (0.0-1.5); Arterial Total Hemglobin 16.4 g/dl (12.0-18.0); MODE TRACH COLLAR
[2016-05-05] MEDS ORDERED: PROPOFOL 100 ML ONE (14:51)
[2016-05-05 14:56] LABS: ADD SCAN DIFF NO
[2016-05-05 14:59] LABS: ABNORMAL IP MESSAGE 1; HEMATOCRIT 50.6 % (42.0-52.0); HEMOGLOBIN 15.5 g/dl (14.0-18.0); MEAN CORPUSCULAR HEMOGLOBIN 30.6 pg (29.0-33.0); MEAN CORPUSCULAR HGB CONC 30.6 g/dl (32.0-37.0); MEAN PLATELET VOLUME 11.4 fl (7.4-10.4); PLATELET COUNT 324 10^3/UL (140-415); RED BLOOD COUNT 5.06 10^6/ul (4.70-6.10); RED CELL DISTRIBUTION WIDTH 13.8 % (11.5-14.5); WHITE BLOOD COUNT 25.3 10^3/ul (4.8-10.8)
[2016-05-05] MEDS ORDERED: NORepinephrine 8MG/250 ML (PMX 250 ML ONE (15:04)
[2016-05-05 15:16] LABS: CREATININE 2.27 mg/dl (0.61-1.24)
[2016-05-05 15:17] LABS: CALCIUM 9.8 mg/dl (8.4-10.2)
[2016-05-05 15:26] LABS: LYMPHOCYTES # 1.8 10^3/ul (0.8-2.9); NEUTROPHIL # 22.5 10^3/ul (1.6-7.5)
[2016-05-05] MEDS ORDERED: LIDOCAINE 1% (MDV) 20 ML INJ SC ONE (15:30)
[2016-05-05 15:52] LABS: POTASSIUM 5.4 mmol/L (3.5-5.1)
--- NOTE | 2016-05-05 15:56 | RADRPT ---
PROCEDURE: XR Chest. CLINICAL INDICATION: Shortness of breath. TECHNIQUE: Single frontal view. COMPARISON: 05/02/2016. FINDINGS: The endotracheal tube has been inserted in satisfactory position. The right-sided dual lead permane nt pacemaker is once again noted. There is mild atelectasis at the lung bases, unchanged. The lung s are otherwise clear. The heart is enlarged. There is no pleural effusion. There is no pneumothorax. IMPRESSION: 1. Endotracheal tube inserted in satisfactory position. 2. No other change from 05/02/2016. RPTAT: QQ .Henrik Reyna MD, MD Date Time Electronically viewed and signed by .Henrik Reyna MD, MD on 05/05/2016 15:56 .R/
[2016-05-05 16:07] LABS: AADO2 Arterial 233.9 mmHg (7.0-24.0); Allen Test ACCEPTAB; Arterial Base Excess -0.7 mmol/L (-3.0-3); Arterial COHb 0.2 % (0.0-3.0); Arterial Fraction of Oxyhgb 98.7 % (93.0-99.0); Arterial HCO3 25.5 mmol/L (22.0-26.0); Arterial MetHb 0.5 % (0.0-1.5); Arterial Total Hemglobin 15.4 g/dl (12.0-18.0); MODE VENT - AC
--- NOTE | 2016-05-05 16:08 | CONS ---
Date/Time of Note Date/Time of Note DATE: 05/05/16 TIME: 16:02 Assessment/Plan Assessment/Plan Additional Assessment/Plan Ventilator settings, assist control 14, tidal volume 500, PEEP of 5, 100% FiO2. Patient also is on Levophed at 15 mics per minute. Assessment recommendations; 1. Patient admitted with acute bronchitis/acute exacerbation with clinical decompensation likely from underlying cardia myopathy and congestive heart failure. Repeat chest x-ray from today is pending after intubation. 2. Prerenal azotemia with worsening renal function. 3. Cannot rule out superimposed pneumonia. 4. History of cardiac arrhythmia. 5. History of dementia. 6. Hypotension possibly from diuresis. Continue current treatment. Will obtain a chest x-ray. ABG has been done, results are pending. Once the x-ray and ABG are done , I will review them and make further recommendations. Meanwhile discontinued further diuresis. Give the patient fluid bolus of a liter D5 water. Start patient on free water via NG tube to 50 ML every 6 hours for correction of hypernatremia. Will obtain a follow-up chest x-ray daily as long as patient is intubated. Consultation Date/Type/Reason Admit Date/Time May 01, 2016 at 20:18 Date of Consultation: May 05, 2016 Type of Consultation: Pulmonary/critical care Reason for Consultation Pulmonary consultation obtained for patient with respiratory failure. History presenting any; patient is a 85-year-old white male who was admitted on the sixth of this month with complaints of not doing well. Patient was diagnosed with COPD exacerbation acute bronchitis was being treated on the medical floor however a short while with the patient decompensated a rapid response was called and the patient had to be intubated by the ER physician transferred to ICU. Apparently patient has history of advanced dementia and despite being off sedation patient is completely unresponsive currently. She was obtained from medical records. Past medical history; 1. COPD. 2. Cardiac arrhythmia status post implantation. 3. Cardio myopathy with poor ejection fraction. 4. Apparently history of dementia. 5. Patient currently developing renal insufficiency. Medications; were reviewed. Allergies; are none. Social history; patient has a history of smoking in the past. Family history; currently not available. Occupational history; not available. Review of systems; not obtainable. General exam; elderly male, orally intubated unresponsive. Respiratory: shortness of breath (+) Cardiovascular: no complaints Psychological: no complaints Social History Smoking Status: Former smoker Exam/Review of Systems Vital Signs Vitals Vital Signs Date Time Temp Pulse Resp B/P Pulse Ox O2 Delivery O2 Flow Rate FiO2 05/05/16 15:00 90 05/05/16 14:50 14 100 100 05/05/16 14:31 98.3 141/69 Mask 05/05/16 07:44 8.0 Intake and Output 05/04/16 05/04/16 05/05/16 15:00 23:00 07:00 Intake Total 1200 ml 130 ml Output Total 500 ml 500 ml Balance 700 ml -370 ml Exam HEENT exam is; supple neck, positive JVD. No lymphadenopathy. Patient is edentulous. Pupils are small bilaterally with corneal decreasing. No thyromegaly no neck masses. Orally intubated. Chest examination; diminished but clear vessel bilaterally. S1-S2 audible, no murmurs. Regular rhythm. Pacemaker in the left chest wall. Abdomen; soft, nondistended. No organomegaly. Bowel sounds audible. Extremity exam is; no peripheral edema. 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 Results Result Diagram: 05/05/16 1445 05/05/16 1445 Results 24 hrs Laboratory Tests Test 05/04/16 22:11 05/05/16 13:42 05/05/16 14:45 Hematocrit 45.0 50.6 Hemoglobin 14.4 15.5 Lymphocytes # 0.3 L 1.8 Lymphocytes % 1.0 L 7.0 L Mean Corpuscular Hemoglobin 30.4 30.6 Mean Corpuscular Hemoglobin Concent 32.0 30.6 L Mean Corpuscular Volume 94.9 100.0 Mean Platelet Volume 11.2 H 11.4 H Monocytes # 0.6 1.0 H Monocytes % 2.0 4.0 Neutrophils # 27.1 H 22.5 H Neutrophils % 97.0 H 89.0 H Platelet Count 321 # 324 Red Blood Count 4.74 5.06 Red Cell Distribution Width 13.5 13.8 White Blood Count 27.9 H 25.3 H Arterial Blood HCO3 26.6 H Arterial Blood Base Excess -1.3 Arterial Blood Oxygen Saturation 96.9 Zaid Test ACCEPTAB Arterial Blood Gas Puncture Site Right Radial Arterial Blood Carboxyhemoglobin 0.1 Arterial Blood Date Drawn 05/05/2016 2:15:17 PM Arterial Blood Methemoglobin 0.5 Arterial Blood pCO2 (Temp correct) 56.4 H Arterial Blood pH (Temp corrected) 7.291 *L Arterial Blood pO2 (Temp corrected) 98.9 H Blood Gas A-a O2 Differential 48.7 H Blood Gas Critical Value Read Back A MAGALIE RN Blood Gas Modality TRACH COLLAR Blood Gas Notified Time 05/05/2016 2:34:01 PM Blood Gas Notified Whom JLD Blood Gas Specimen Source Blood arterial Blood Gas Temperature 37.0 FiO2 30.0 Oxyhemoglobin Percent 96.3 Total Hemoglobin 16.4 Anion Gap 18 H B-Type Natriuretic Peptide 40160 H Blood Urea Nitrogen 90 H Calcium Level 9.8 Carbon Dioxide Level 35 H Chloride Level 105 Creatinine 2.27 H Glucose Level 190 Lactic Acid Level 1.7 Potassium Level 5.4 H Sodium Level 153 H Medications Medications Current Medications Ondansetron HCl (Zofran Inj) 4 mg Q6H PRN IV NAUSEA AND/OR VOMITING; Start 05/01 at 20:30 Acetaminophen (Tylenol Tab) 650 mg Q6H PRN PO PAIN LEVEL 1-3 OR FEVER Last administered on 05/04/16 12:04; Admin Dose 650 MG; Start 05/01/16 at 20:30 Acetaminophen (Tylenol Supp) 650 mg Q6H PRN [place] PAIN LEVEL 1-3 OR FEVER; Start 05/01/16 at 20:30 Docusate Sodium (Colace) 100 mg Q12H PRN PO CONSTIPATION Last administered on 11:52; Admin Dose 100 MG; Start 05/01/16 at 20:30 Magnesium Hydroxide (Milk Of Mag) 30 ml DAILY PRN PO CONSTIPATION Last administered on 05/03/16 11:52; Admin Dose 30 ML; Start 05/01/16 at 20:30 Bisacodyl (Dulcolax) 5 mg DAILY PRN PO CONSTIPATION; Start 05/01/16 at 20:30 Bisacodyl (Dulcolax Supp) 10 mg DAILY PRN [place] CONSTIPATION; Start 05/01/16 at 20: 30 Sodium Biphosphate/ Sodium Phosphate (Fleet Enema) 133 ml DAILY PRN [place] CONSTIPATION; Start 05/01/16 at 20:30 Pantoprazole 40 mg 40 mg DAILY@06 IV Last administered on 05/05/16 05:27; Admin Dose 40 MG; Start 05/02/16 at 06:00 Levofloxacin/ Dextrose (Levaquin 250 Mg/ D5W 50 ml (Pmx)) 50 ml @ 100 mls/hr Q24H IVPB Last administered on 05/04/16 23:11; Admin Dose 100 MLS/HR; Start 05/02/16 at 23:00 Lisinopril (Zestril) 2.5 mg DAILY PO Last administered on 05/04/16 08:26; Admin Dose 2.5 MG; Start 05/03/16 at 09:00 Metoprolol Succinate (Toprol Xl) 12.5 mg DAILY PO Last administered on 08:27; Admin Dose 12.5 MG; Start 05/03/16 at 14:00 Tamsulosin HCl (Flomax) 0.4 mg HS PO Last administered on 05/03/16 20:54; Admin Dose 0.4 MG; Start 05/03/16 at 21:00 Aspirin (Aspirin) 325 mg DAILY PO Last administered on 05/04/16 08:25; Admin Dose 325 MG; Start 05/04/16 at 09:00 Methylprednisolone Sodium Succinate 20 mg 20 mg DAILY IV Last administered on 08:28; Admin Dose 20 MG; Start 05/05/16 at 09:00 Norepinephrine (Levophed) 250 ml @ 1.875 mls/ hr TITRATE IV ; Start 05/05/16 at 15:30 GERALDINE CUNNINGHAM 10, 2017 16:08
[2016-05-05] MEDS ORDERED: FUROSEMIDE 20 MG INJ IV SCH (18:00)
[2016-05-05] MEDS ORDERED: SOD CHLORIDE 0.9% 1,000 ML IV SCH (18:00)
--- NOTE | 2016-05-05 18:09 | EN ---
Date/Time of Note Date/Time of Note DATE: 05/05/16 TIME: 18:07 ER Progress Note Procedure: Intubation The ICU called for an intubation. The patient is on BiPAP and is still having some respiratory difficulty with decreased mental status, low oxygenation and elevated CO2. The primary care physician requested the patient be intubated. On arrival the patient is on BiPAP with an O2 sat level of 90. He is having some agonal respirations but is not in acute respiratory distress/failure. Endotracheal Intubation by me: Pre assessment performed. See preceding note for details. Pre-oxygenation performed with 100% oxygen RSI: Performed w/o complication or hypoxic events. Medications as ordered. Blade: [Mac 4] ET Tube: [7.5] cm Depth: [23] cm at the lip Intubation confirmed by colorimetric CO2, equal breath sounds, quiet over the stomach. Patient tolerated the procedure well and no complication JAMES SENA DO May 05, 2016 18:09
--- NOTE | 2016-05-05 18:26 | PN ---
Date/Time of Note Date/Time of Note DATE: 05/05/16 TIME: 18:24 Assessment/Plan VTE Prophylaxis VTE Prophylaxis Intervention: other Lines/Catheters IV Catheter Type (from Nrs): Peripheral IV Urinary Cath still in place: Yes Reason Cath still needed: other (indicate) Assessment/Plan Chief Complaint/Hosp Course IMPRESSION: The patient has 1. ACUTE RES FAILURE 2. Obesity. 3. Hypertension. 4. anxiety 5. PACEMAKER HX 6 low ef 7 leucocytosis 8 RHINA SEPSIS plan cardio eval dec steroid TRA ICU PUL CONSULT Problems: Subjective 24 Hr Interval Summary Respiratory: shortness of breath (+) Exam/Review of Systems Vital Signs Vitals Vital Signs Date Time Temp Pulse Resp B/P Pulse Ox O2 Delivery O2 Flow Rate FiO2 05/05/16 18:00 93 14 137/77 96 05/05/16 17:50 30 05/05/16 16:00 98.6 05/05/16 14:31 Mask 05/05/16 07:44 8.0 Intake and Output 05/04/16 05/04/16 05/05/16 15:00 23:00 07:00 Intake Total 1200 ml 130 ml Output Total 500 ml 500 ml Balance 700 ml -370 ml Exam Respiratory: diminished breath sounds Cardiovascular: regular rate and rhythm Gastrointestinal: soft Musculoskeletal: nl extremities to inspection Extremities: normal pulses Results Result Diagram: 05/05/16 1445 05/05/16 1445 Results 24 hrs Laboratory Tests Test 05/04/16 22:11 05/05/16 13:42 05/05/16 14:45 05/05/16 15:45 Hematocrit 45.0 50.6 Hemoglobin 14.4 15.5 Lymphocytes # 0.3 L 1.8 Lymphocytes % 1.0 L 7.0 L Mean Corpuscular Hemoglobin 30.4 30.6 Mean Corpuscular Hemoglobin Concent 32.0 30.6 L Mean Corpuscular Volume 94.9 100.0 Mean Platelet Volume 11.2 H 11.4 H Monocytes # 0.6 1.0 H Monocytes % 2.0 4.0 Neutrophils # 27.1 H 22.5 H Neutrophils % 97.0 H 89.0 H Platelet Count 321 # 324 Red Blood Count 4.74 5.06 Red Cell Distribution Width 13.5 13.8 White Blood Count 27.9 H 25.3 H Arterial Blood HCO3 26.6 H 25.5 Arterial Blood Base Excess -1.3 -0.7 Arterial Blood Oxygen Saturation 96.9 99.4 Zaid Test ACCEPTAB ACCEPTAB Arterial Blood Gas Puncture Site Right Radial Left Radial Arterial Blood Carboxyhemoglobin 0.1 0.2 Arterial Blood Date Drawn 05/05/2016 2:15:17 PM 05/05/2016 4:02:50 PM Arterial Blood Methemoglobin 0.5 0.5 Arterial Blood pCO2 (Temp correct) 56.4 H 47.7 H Arterial Blood pH (Temp corrected) 7.291 *L 7.346 L Arterial Blood pO2 (Temp corrected) 98.9 H 431.4 H Blood Gas A-a O2 Differential 48.7 H 233.9 H Blood Gas Critical Value Read Back A MAGALIE CHRISTINE Blood Gas Modality TRACH COLLAR VENT - AC Blood Gas Notified Time 05/05/2016 2:34:01 PM 05/05/2016 4:07:33 PM Blood Gas Notified Whom JOANNA MARSHALL Blood Gas Specimen Source Blood arterial Blood arterial Blood Gas Temperature 37.0 37.0 FiO2 30.0 100.0 Oxyhemoglobin Percent 96.3 98.7 Total Hemoglobin 16.4 15.4 Anion Gap 18 H B-Type Natriuretic Peptide 86415 H Blood Urea Nitrogen 90 H Calcium Level 9.8 Carbon Dioxide Level 35 H Chloride Level 105 Creatinine 2.27 H Glucose Level 190 Lactic Acid Level 1.7 Potassium Level 5.4 H Sodium Level 153 H Blood Gas Actual Respiration Rate 14 Blood Gas Low PEEP Setting 5.0 Blood Gas Respiration Rate 14.0 Blood Gas Tidal Volume 500.0 Medications Medications Current Medications Ondansetron HCl (Zofran Inj) 4 mg Q6H PRN IV NAUSEA AND/OR VOMITING; Start 05/01 at 20:30 Acetaminophen (Tylenol Tab) 650 mg Q6H PRN PO PAIN LEVEL 1-3 OR FEVER Last administered on 05/04/16 12:04; Admin Dose 650 MG; Start 05/01/16 at 20:30 Acetaminophen (Tylenol Supp) 650 mg Q6H PRN [place] PAIN LEVEL 1-3 OR FEVER; Start 05/01/16 at 20:30 Docusate Sodium (Colace) 100 mg Q12H PRN PO CONSTIPATION Last administered on 11:52; Admin Dose 100 MG; Start 05/01/16 at 20:30 Magnesium Hydroxide (Milk Of Mag) 30 ml DAILY PRN PO CONSTIPATION Last administered on 05/03/16 11:52; Admin Dose 30 ML; Start 05/01/16 at 20:30 Bisacodyl (Dulcolax) 5 mg DAILY PRN PO CONSTIPATION; Start 05/01/16 at 20:30 Bisacodyl (Dulcolax Supp) 10 mg DAILY PRN [place] CONSTIPATION; Start 05/01/16 at 20: 30 Sodium Biphosphate/ Sodium Phosphate (Fleet Enema) 133 ml DAILY PRN [place] CONSTIPATION; Start 05/01/16 at 20:30 Pantoprazole 40 mg 40 mg DAILY@06 IV Last administered on 05/05/16 05:27; Admin Dose 40 MG; Start 05/02/16 at 06:00 Levofloxacin/ Dextrose (Levaquin 250 Mg/ D5W 50 ml (Pmx)) 50 ml @ 100 mls/hr Q24H IVPB Last administered on 05/04/16 23:11; Admin Dose 100 MLS/HR; Start 05/02/16 at 23:00 Lisinopril (Zestril) 2.5 mg DAILY PO Last administered on 05/04/16 08:26; Admin Dose 2.5 MG; Start 05/03/16 at 09:00 Metoprolol Succinate (Toprol Xl) 12.5 mg DAILY PO Last administered on 08:27; Admin Dose 12.5 MG; Start 05/03/16 at 14:00 Tamsulosin HCl (Flomax) 0.4 mg HS PO Last administered on 05/03/16 20:54; Admin Dose 0.4 MG; Start 05/03/16 at 21:00 Aspirin (Aspirin) 325 mg DAILY PO Last administered on 05/04/16 08:25; Admin Dose 325 MG; Start 05/04/16 at 09:00 Methylprednisolone Sodium Succinate 20 mg 20 mg DAILY IV Last administered on 08:28; Admin Dose 20 MG; Start 05/05/16 at 09:00 Norepinephrine 250 ml @ 1.875 mls/ hr TITRATE IV ; Start 05/05/16 at 15:30 Dextrose (D5W) 1,000 ml @ 500 mls/hr Q2H IV ; Start 05/05/16 at 16:30 Lorazepam (Ativan) 2 mg Q2 PRN IV AGITATION; Start 05/05/16 at 18:00 Morphine Sulfate 2 mg 2 mg Q2H PRN IV PAIN; Start 05/05/16 at 18:00 Sodium Chloride (NS) 1,000 ml @ 75 mls/hr [id number] IV ; Start 05/05/16 at 18:00 Sodium Polystyrene Sulfonate (Kayexalate) 30 gm ONCE ONCE PO ; Start 05/05/16 at 18:30; Stop 05/05/16 at 18:31; Status UNHOLLI ACOSTA MD May 05, 2016 18:26
[2016-05-05] MEDS ORDERED: NA POLYST SULFON 15 GM/60 ML BTL PO ONE (18:30)
[2016-05-05] MEDS: NORepinephrine 8MG/250 ML (PMX 250 ML IV SCH (18:31)
[2016-05-05] MEDS: DEXTROSE 5% 1,000 ML IV SCH ×3 (18:55→20:30)
[2016-05-05] MEDS: PROPOFOL 100 ML IV SCH (19:00)
[2016-05-05] MEDS: TAMSULOSIN (SR) 0.4 MG CAP PO SCH (21:31)
[2016-05-06] VITALS (107 sets, daily range): BP systolic 64–164; BP diastolic 43–100; PULSE 83–135; RESP 14–31
[2016-05-06] MEDS: LEVOFLOXACIN 250MG/D5W (PMX) 50 ML IVPB SCH (00:11)
[2016-05-06] MEDS: IPRATROPIUM (HFA) 12.9 GM INHALER INH SCH ×4 (02:48→19:48)
[2016-05-06] MEDS: ALBUTEROL HFA 8 GM INHALER INH SCH ×4 (02:49→19:48)
[2016-05-06] MEDS: NORepinephrine 8MG/250 ML (PMX 250 ML IV SCH ×2 (03:17→13:40)
[2016-05-06 05:00] LABS: ADD SCAN DIFF NO
[2016-05-06] MEDS: morphine 2 MG INJ IV PRN ×2 (05:15→10:23)
[2016-05-06 05:16] LABS: ABNORMAL IP MESSAGE 1; BASOPHILS % 0.1 % (0.0-2.0); HEMATOCRIT 43.8 % (42.0-52.0); LYMPHOCYTES % 3.8 % (15.0-51.0); MEAN CORPUSCULAR HEMOGLOBIN 30.2 pg (29.0-33.0); MEAN CORPUSCULAR VOLUME 94.6 fl (82.0-101.0); MEAN PLATELET VOLUME 11.7 fl (7.4-10.4); MONOCYTE # 1.1 10^3/ul (0.3-0.9); MONOCYTES % 4.4 % (0.0-11.0); PLATELET COUNT 227 10^3/UL (140-415); POTASSIUM 3.5 mmol/L (3.5-5.1); RED BLOOD COUNT 4.63 10^6/ul (4.70-6.10); RED CELL DISTRIBUTION WIDTH 13.9 % (11.5-14.5); WHITE BLOOD COUNT 25.2 10^3/ul (4.8-10.8)
[2016-05-06 05:18] LABS: CREATININE 1.95 mg/dl (0.61-1.24)
[2016-05-06 05:19] LABS: ALBUMIN/GLOBULIN RATIO 0.88; BILIRUBIN,INDIRECT 0.3 mg/dl (0-1.1); BILIRUBIN,TOTAL 0.3 mg/dl (0.2-1.3); CALCIUM 8.7 mg/dl (8.4-10.2); TOTAL PROTEIN 6.4 g/dl (6.1-8.1)
[2016-05-06] MEDS: PANTOPRAZOLE 40 MG INJ IV SCH (06:40)
[2016-05-06] MEDS: METOPROLOL (XL) 25 MG TAB PO SCH (08:14)
[2016-05-06] MEDS: LISINOPRIL 5 MG TAB PO SCH (08:14)
[2016-05-06] MEDS: METHYLPREDNISOLONE 40 MG INJ IV SCH (08:23)
[2016-05-06] MEDS: ASPIRIN 325 MG TAB PO SCH (08:23)
[2016-05-06] MEDS: PROPOFOL 100 ML IV SCH ×2 (08:23→19:00)
[2016-05-06] MEDS: ACETAMINOPHEN 325 MG TAB PO PRN (08:23)
[2016-05-06] MEDS: DEXTROSE 5%-0.45% NACL 1,000 ML IV SCH (09:24)
[2016-05-06] MEDS: VASOPRESSIN 60 UNIT in DEXTROSE 5% 57 ML IV SCH ×2 (10:41→21:26)
--- NOTE | 2016-05-06 11:08 | CONS ---
Date/Time of Note Date/Time of Note DATE: 05/06/16 TIME: 11:03 Assessment/Plan Assessment/Plan Additional Assessment/Plan Ventilator settings; AC of 14, tidal volume 500, PEEP of 5, 30% FiO2. Next Patient currently on Levophed 18 mics per minute, vasopressin 0.04 U/min, propofol 5 mics per kilogram per minute. Assessment and recommendations; 1. Patient admitted for respiratory failure due to COPD exacerbation with acute bronchitis. 2. Hypotension, requiring high-dose pressor support. 3. Acute renal insufficiency. 4. Severe leukocytosis. 5. History of hypertension. 6. Mild CHF. 7. History of BPH. Hold sedation to assess mental status. Continue current supportive care. Once the patient is off sedative effect he will be evaluated for possible weaning from ventilator if the patient is able to withstand decreasing doses of pressor support. Consultation Date/Type/Reason Admit Date/Time May 01, 2016 at 20:18 Initial Consult Date 05/05/16 Type of Consultation: Pulmonary/critical care Referring Provider: HOLLI LINDER MD 24 HR Interval Summary Free Text/Dictation Patient's condition remains critical. Still requiring full ventilator support. Also requiring pressor support with Levophed. General exam; elderly male, orally intubated, sedated. Currently in no distress. Exam/Review of Systems Vital Signs Vitals Vital Signs Date Time Temp Pulse Resp B/P Pulse Ox O2 Delivery O2 Flow Rate FiO2 05/06/16 10:00 96 21 101/70 97 Mechanical Ventilator 05/06/16 09:45 100.8 05/06/16 09:29 30 05/05/16 07:44 8.0 Intake and Output 05/05/16 05/05/16 05/06/16 15:00 23:00 07:00 Intake Total 1233.68 ml 280.5 ml Output Total 510 ml 310 ml 285 ml Balance -510 ml 923.68 ml -4.5 ml Exam HEENT exam; supple neck, has bilateral clouded cornea. Patient is edentulous. Orally intubated. No neck masses. No thyromegaly. Chest examination; diminished but clear breath sounds bilaterally. S1-S2 audible, no murmurs. Regular rhythm. Next Abdomen examination; soft, nondistended. No organomegaly. Bowel sounds audible. Extremity examination; no peripheral edema. 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 Results Result Diagram: 3/11/17 0440 05/06/16 0440 Results 24 hrs Laboratory Tests Test 05/05/16 13:42 05/05/16 14:45 05/05/16 15:45 05/06/16 04:40 Arterial Blood HCO3 26.6 H 25.5 Arterial Blood Base Excess -1.3 -0.7 Arterial Blood Oxygen Saturation 96.9 99.4 Zaid Test ACCEPTAB ACCEPTAB Arterial Blood Gas Puncture Site Right Radial Left Radial Arterial Blood Carboxyhemoglobin 0.1 0.2 Arterial Blood Date Drawn 05/05/2016 2:15:17 PM 05/05/2016 4:02:50 PM Arterial Blood Methemoglobin 0.5 0.5 Arterial Blood pCO2 (Temp correct) 56.4 H 47.7 H Arterial Blood pH (Temp corrected) 7.291 *L 7.346 L Arterial Blood pO2 (Temp corrected) 98.9 H 431.4 H Blood Gas A-a O2 Differential 48.7 H 233.9 H Blood Gas Critical Value Read Back A MAGALIE CHRISTINE Blood Gas Modality TRACH COLLAR VENT - AC Blood Gas Notified Time 05/05/2016 2:34:01 PM 05/05/2016 4:07:33 PM Blood Gas Notified Whom JOANNA MARSHALL Blood Gas Specimen Source Blood arterial Blood arterial Blood Gas Temperature 37.0 37.0 FiO2 30.0 100.0 Oxyhemoglobin Percent 96.3 98.7 Total Hemoglobin 16.4 15.4 Anion Gap 18 H 17 H B-Type Natriuretic Peptide 55291 H Blood Urea Nitrogen 90 H 94 H Calcium Level 9.8 8.7 Carbon Dioxide Level 35 H 29 Chloride Level 105 106 Creatinine 2.27 H 1.95 H Glucose Level 190 93 # Hematocrit 50.6 43.8 Hemoglobin 15.5 14.0 Lactic Acid Level 1.7 Lymphocytes # 1.8 1.0 Lymphocytes % 7.0 L 3.8 L Mean Corpuscular Hemoglobin 30.6 30.2 Mean Corpuscular Hemoglobin Concent 30.6 L 32.0 Mean Corpuscular Volume 100.0 94.6 Mean Platelet Volume 11.4 H 11.7 H Monocytes # 1.0 H 1.1 H Monocytes % 4.0 4.4 Neutrophils # 22.5 H 23.0 H Neutrophils % 89.0 H 91.0 H Platelet Count 324 227 # Potassium Level 5.4 H 3.5 Red Blood Count 5.06 4.63 L Red Cell Distribution Width 13.8 13.9 Sodium Level 153 H 148 H White Blood Count 25.3 H 25.2 H Blood Gas Actual Respiration Rate 14 Blood Gas Low PEEP Setting 5.0 Blood Gas Respiration Rate 14.0 Blood Gas Tidal Volume 500.0 Alanine Aminotransferase (ALT/SGPT) 24 Albumin 3.0 L Albumin/Globulin Ratio 0.88 Alkaline Phosphatase 33 L Aspartate Amino Transf (AST/SGOT) 32 Basophils # 0.0 Basophils % 0.1 Direct Bilirubin 0.00 Eosinophils # 0.0 Eosinophils % 0.0 Globulin 3.40 H Indirect Bilirubin 0.3 Nucleated Red Blood Cells # 0.0 Nucleated Red Blood Cells % 0.0 Total Bilirubin 0.3 Total Protein 6.4 Medications Medications Current Medications Ondansetron HCl (Zofran Inj) 4 mg Q6H PRN IV NAUSEA AND/OR VOMITING; Start 05/01 at 20:30 Acetaminophen (Tylenol Tab) 650 mg Q6H PRN PO PAIN LEVEL 1-3 OR FEVER Last administered on 05/06/16 08:23; Admin Dose 650 MG; Start 05/01/16 at 20:30 Acetaminophen (Tylenol Supp) 650 mg Q6H PRN [place] PAIN LEVEL 1-3 OR FEVER; Start 05/01/16 at 20:30 Docusate Sodium (Colace) 100 mg Q12H PRN PO CONSTIPATION Last administered on 11:52; Admin Dose 100 MG; Start 05/01/16 at 20:30 Magnesium Hydroxide (Milk Of Mag) 30 ml DAILY PRN PO CONSTIPATION Last administered on 05/03/16 11:52; Admin Dose 30 ML; Start 05/01/16 at 20:30 Bisacodyl (Dulcolax) 5 mg DAILY PRN PO CONSTIPATION; Start 05/01/16 at 20:30 Bisacodyl (Dulcolax Supp) 10 mg DAILY PRN [place] CONSTIPATION; Start 05/01/16 at 20: 30 Sodium Biphosphate/ Sodium Phosphate (Fleet Enema) 133 ml DAILY PRN [place] CONSTIPATION; Start 05/01/16 at 20:30 Pantoprazole (Protonix Iv) 40 mg DAILY@06 IV Last administered on 05/06/16 06: 40; Admin Dose 40 MG; Start 05/02/16 at 06:00 Lisinopril (Zestril) 2.5 mg DAILY PO Last administered on 05/04/16 08:26; Admin Dose 2.5 MG; Start 05/03/16 at 09:00 Metoprolol Succinate (Toprol Xl) 12.5 mg DAILY PO Last administered on 08:27; Admin Dose 12.5 MG; Start 05/03/16 at 14:00 Tamsulosin HCl (Flomax) 0.4 mg HS PO Last administered on 05/05/16 21:31; Admin Dose 0.4 MG; Start 05/03/16 at 21:00 Aspirin (Aspirin) 325 mg DAILY PO Last administered on 05/06/16 08:23; Admin Dose 325 MG; Start 05/04/16 at 09:00 Methylprednisolone Sodium Succinate 20 mg 20 mg DAILY IV Last administered on 08:23; Admin Dose 20 MG; Start 05/05/16 at 09:00 Norepinephrine (Levophed) 250 ml @ 1.875 mls/ hr TITRATE IV Last administered on 05/06/16 03:17; Admin Dose 16.688 MLS/HR; Start 05/05/16 at 15:30 Lorazepam (Ativan) 2 mg Q2 PRN IV AGITATION; Start 05/05/16 at 18:00 Morphine Sulfate 2 mg 2 mg Q2H PRN IV PAIN Last administered on 05/06/16 10:23 ; Admin Dose 2 MG; Start 05/05/16 at 18:00 Propofol 100 ml @ 1.896 mls/ hr Q12H IV Last administered on 05/06/16 08:23; Admin Dose 1.896 MLS/HR; Start 05/05/16 at 19:00 Dextrose/Sodium Chloride 1,000 ml @ 45 mls/hr [id number] IV Last administered on 05/06/16 09:24; Admin Dose 45 MLS/HR; Start 05/06/16 at 09:30 Vasopressin 60 unit/Dextrose 60 ml @ 1.2 mls/hr Q12H IV Last administered on 10:41; Admin Dose 2.4 MLS/HR; Start 05/06/16 at 10:30 Piperacillin Sod/ Tazobactam Sod (Zosyn 2.25gm/ 50ml (Pmx)) 50 ml @ 100 mls/hr Q6 IVPB ; Start 05/06/16 at 12:00 GERALDINE CUNNINGHAM May 06, 2016 11:08
--- NOTE | 2016-05-06 12:12 | RADRPT ---
PROCEDURE: XR Chest. CLINICAL INDICATION: Respiratory distress. Left PICC line placement. TECHNIQUE: AP view of the chest was performed. COMPARISON: May 05, 2016 FINDINGS: There is an ET tube in good positioning 6 cm above the letty. There is a left PICC line with the t ip in the superior vena cava. This line is ready for use. The heart size is stable. There is stable mild bibasilar atelectasis. No pneumothorax, pleural eff usion or pulmonary edema. The osseous structures are intact. IMPRESSION: Right PICC line in good positioning and ready for use. ET tube 6 cm above the letty. Mild bibasil ar atelectasis. Overall, no interval change. RPTAT: QQ. .Brandi Martell MD, Date Time Electronically viewed and signed by .Brandi Martell MD, MD on 05/06/2016 12:12 .F/
[2016-05-06] MEDS: PIPER-TAZO 2.25 GM (PMX) 50 ML IVPB SCH ×2 (12:43→18:10)
--- NOTE | 2016-05-06 13:12 | PN ---
Date/Time of Note Date/Time of Note DATE: 05/06/16 TIME: 13:06 Assessment/Plan VTE Prophylaxis VTE Prophylaxis Intervention: SCD's Lines/Catheters IV Catheter Type (from Nrsg): Peripheral IV Central line still needed: Yes Urinary Cath still in place: Yes Reason Cath still needed: urinary retention Assessment/Plan Chief Complaint/Hosp Course 1. ACUTE RES FAILURE, pt is on ventilator support, sedated with propofol 2. Obesity. 3. sepsis, pt is on pressors, new central line inserted today 4. leucocytosis, pt is on a/b. care was coordinated with dr Kaur and nursing Problems: Subjective 24 Hr Interval Summary Subjective hx not possible: pt non-verbal Exam/Review of Systems Vital Signs Vitals Vital Signs Date Time Temp Pulse Resp B/P Pulse Ox O2 Delivery O2 Flow Rate FiO2 05/06/16 10:00 96 21 101/70 97 Mechanical Ventilator 05/06/16 09:45 100.8 05/06/16 09:29 30 05/05/16 07:44 8.0 Intake and Output 05/05/16 05/05/16 05/06/16 15:00 23:00 07:00 Intake Total 1233.68 ml 280.5 ml Output Total 510 ml 310 ml 285 ml Balance -510 ml 923.68 ml -4.5 ml Exam Constitutional: other (sedated with propofol) Head: normocephalic Eyes: nl conjunctiva ENMT: nl external ears & nose Neck: supple Respiratory: crackles/rales Cardiovascular: regular rate and rhythm Gastrointestinal: other (OG tube), soft Genitourinary - Male: other (muñoz in) Musculoskeletal: nl extremities to inspection Extremities: normal pulses Results Result Diagram: 05/06/1643905/06/160 Results 24 hrs Laboratory Tests Test 05/05/16 13:42 05/05/16 14:45 05/05/16 15:45 05/06/16 04:40 Arterial Blood HCO3 26.6 H 25.5 Arterial Blood Base Excess -1.3 -0.7 Arterial Blood Oxygen Saturation 96.9 99.4 Zaid Test ACCEPTAB ACCEPTAB Arterial Blood Gas Puncture Site Right Radial Left Radial Arterial Blood Carboxyhemoglobin 0.1 0.2 Arterial Blood Date Drawn 05/05/2016 2:15:17 PM 05/05/2016 4:02:50 PM Arterial Blood Methemoglobin 0.5 0.5 Arterial Blood pCO2 (Temp correct) 56.4 H 47.7 H Arterial Blood pH (Temp corrected) 7.291 *L 7.346 L Arterial Blood pO2 (Temp corrected) 98.9 H 431.4 H Blood Gas A-a O2 Differential 48.7 H 233.9 H Blood Gas Critical Value Read Back A MAGALIE RN Blood Gas Modality TRACH COLLAR VENT - AC Blood Gas Notified Time 05/05/2016 2:34:01 PM 05/05/2016 4:07:33 PM Blood Gas Notified Whom JOANNA MARSHALL Blood Gas Specimen Source Blood arterial Blood arterial Blood Gas Temperature 37.0 37.0 FiO2 30.0 100.0 Oxyhemoglobin Percent 96.3 98.7 Total Hemoglobin 16.4 15.4 Anion Gap 18 H 17 H B-Type Natriuretic Peptide 21418 H Blood Urea Nitrogen 90 H 94 H Calcium Level 9.8 8.7 Carbon Dioxide Level 35 H 29 Chloride Level 105 106 Creatinine 2.27 H 1.95 H Glucose Level 190 93 # Hematocrit 50.6 43.8 Hemoglobin 15.5 14.0 Lactic Acid Level 1.7 Lymphocytes # 1.8 1.0 Lymphocytes % 7.0 L 3.8 L Mean Corpuscular Hemoglobin 30.6 30.2 Mean Corpuscular Hemoglobin Concent 30.6 L 32.0 Mean Corpuscular Volume 100.0 94.6 Mean Platelet Volume 11.4 H 11.7 H Monocytes # 1.0 H 1.1 H Monocytes % 4.0 4.4 Neutrophils # 22.5 H 23.0 H Neutrophils % 89.0 H 91.0 H Platelet Count 324 227 # Potassium Level 5.4 H 3.5 Red Blood Count 5.06 4.63 L Red Cell Distribution Width 13.8 13.9 Sodium Level 153 H 148 H White Blood Count 25.3 H 25.2 H Blood Gas Actual Respiration Rate 14 Blood Gas Low PEEP Setting 5.0 Blood Gas Respiration Rate 14.0 Blood Gas Tidal Volume 500.0 Alanine Aminotransferase (ALT/SGPT) 24 Albumin 3.0 L Albumin/Globulin Ratio 0.88 Alkaline Phosphatase 33 L Aspartate Amino Transf (AST/SGOT) 32 Basophils # 0.0 Basophils % 0.1 Direct Bilirubin 0.00 Eosinophils # 0.0 Eosinophils % 0.0 Globulin 3.40 H Indirect Bilirubin 0.3 Nucleated Red Blood Cells # 0.0 Nucleated Red Blood Cells % 0.0 Total Bilirubin 0.3 Total Protein 6.4 Medications Medications Current Medications Ondansetron HCl (Zofran Inj) 4 mg Q6H PRN IV NAUSEA AND/OR VOMITING; Start 05/01 at 20:30 Acetaminophen (Tylenol Tab) 650 mg Q6H PRN PO PAIN LEVEL 1-3 OR FEVER Last administered on 05/06/16 08:23; Admin Dose 650 MG; Start 05/01/16 at 20:30 Acetaminophen (Tylenol Supp) 650 mg Q6H PRN [place] PAIN LEVEL 1-3 OR FEVER; Start 05/01/16 at 20:30 Docusate Sodium (Colace) 100 mg Q12H PRN PO CONSTIPATION Last administered on 11:52; Admin Dose 100 MG; Start 05/01/16 at 20:30 Magnesium Hydroxide (Milk Of Mag) 30 ml DAILY PRN PO CONSTIPATION Last administered on 05/03/16 11:52; Admin Dose 30 ML; Start 05/01/16 at 20:30 Bisacodyl (Dulcolax) 5 mg DAILY PRN PO CONSTIPATION; Start 05/01/16 at 20:30 Bisacodyl (Dulcolax Supp) 10 mg DAILY PRN IN CONSTIPATION; Start 05/01/16 at 20: 30 Sodium Biphosphate/ Sodium Phosphate (Fleet Enema) 133 ml DAILY PRN IN CONSTIPATION; Start 05/01/16 at 20:30 Pantoprazole (Protonix Iv) 40 mg DAILY@06 IV Last administered on 05/06/16 06: 40; Admin Dose 40 MG; Start 05/02/16 at 06:00 Lisinopril (Zestril) 2.5 mg DAILY PO Last administered on 05/04/16 08:26; Admin Dose 2.5 MG; Start 05/03/16 at 09:00 Metoprolol Succinate (Toprol Xl) 12.5 mg DAILY PO Last administered on 08:27; Admin Dose 12.5 MG; Start 05/03/16 at 14:00 Tamsulosin HCl (Flomax) 0.4 mg HS PO Last administered on 05/05/16 21:31; Admin Dose 0.4 MG; Start 05/03/16 at 21:00 Aspirin (Aspirin) 325 mg DAILY PO Last administered on 05/06/16 08:23; Admin Dose 325 MG; Start 05/04/16 at 09:00 Methylprednisolone Sodium Succinate 20 mg 20 mg DAILY IV Last administered on 08:23; Admin Dose 20 MG; Start 05/05/16 at 09:00 Norepinephrine (Levophed) 250 ml @ 1.875 mls/ hr TITRATE IV Last administered on 05/06/16 03:17; Admin Dose 16.688 MLS/HR; Start 05/05/16 at 15:30 Lorazepam (Ativan) 2 mg Q2 PRN IV AGITATION; Start 05/05/16 at 18:00 Morphine Sulfate 2 mg 2 mg Q2H PRN IV PAIN Last administered on 05/06/16 10:23 ; Admin Dose 2 MG; Start 05/05/16 at 18:00 Propofol 100 ml @ 1.896 mls/ hr Q12H IV Last administered on 05/06/16 08:23; Admin Dose 1.896 MLS/HR; Start 05/05/16 at 19:00 Dextrose/Sodium Chloride 1,000 ml @ 45 mls/hr [id number] IV Last administered on 05/06/16 09:24; Admin Dose 45 MLS/HR; Start 05/06/16 at 09:30 Vasopressin 60 unit/Dextrose 60 ml @ 1.2 mls/hr Q12H IV Last administered on 10:41; Admin Dose 2.4 MLS/HR; Start 05/06/16 at 10:30 Piperacillin Sod/ Tazobactam Sod (Zosyn 2.25gm/ 50ml (Pmx)) 50 ml @ 100 mls/hr Q6 IVPB Last administered on 05/06/16 12:43; Admin Dose 100 MLS/HR; Start 01/12 at 12:00 IV Flush (NS 10 ml) 10 ml PRN PRN IV FLUSH LINE; Start 05/06/16 at 13:00 WANG BELL 11, 2017 13:12
--- NOTE | 2016-05-06 13:25 | CONS ---
Date/Time of Note Date/Time of Note DATE: 05/06/16 TIME: 13:18 Assessment/Plan Assessment/Plan Chief Complaint/Hosp Course IMPRESSION: 1. Shortness of breath with systolic congestive heart failure acute on chronic 2. 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 negative troponin x 3 this admit. s/p lexsiacn LVEF 22%/no ischemia/prior MA 3. Permanent pacemaker, assess function. 4. Possible cardiac arrhythmia-?PAFL 5. History of asthma/chronic obstructive pulmonary disease. 6. Glaucoma. 7. History of bradycardia. 8. Hypertension, labile. 9. Leukocytosis. 10. Altered mental state. 11. Fevers 12.Respiratory failure s/o intubation Recc: -Tele -serial ecg's -Hold ACEI/BB whil tam pressors -s/p intubation overnight -Continue levo/vasopressin but would try to wean vasopressin as pure afterload -Continue steroids/bronchodilators -Start lovenox Problems: Consultation Date/Type/Reason Admit Date/Time May 01, 2016 at 20:18 Initial Consult Date 05/02/16 Type of Consultation: Cardiology Reason for Consultation CHF/cardiomyopathy Referring Provider: HOLLI LINDER MD Exam/Review of Systems Vital Signs Vitals Vital Signs Date Time Temp Pulse Resp B/P Pulse Ox O2 Delivery O2 Flow Rate FiO2 05/06/16 12:00 89 05/06/16 10:00 21 101/70 97 Mechanical Ventilator 05/06/16 09:45 100.8 05/06/16 09:29 30 05/05/16 07:44 8.0 Intake and Output 05/05/16 05/05/16 05/06/16 15:00 23:00 07:00 Intake Total 1233.68 ml 280.5 ml Output Total 510 ml 310 ml 285 ml Balance -510 ml 923.68 ml -4.5 ml Exam Review of Systems: CONSTITUTIONAL: No fevers, chills. PULMONARY: intubated CARDIOVASCULAR: No obvious chest pain/palpitations GASTROINTESTINAL: No nausea/vomiting. GENITOURINARY: No hematuria/dysuria. MUSCULOSKELETAL: No obvious myagias/arthalgias. PSYCHIATRIC: No docuemented depression. NEUROLOGIC: sedated Constitutional: other (intubated) Psych: no complaints Head: normocephalic ENMT: mucosa pink and moist Neck: jvd, supple Respiratory: diminished breath sounds Gastrointestinal: non-tender, soft Musculoskeletal: muscle tone Extremities: edema (none) Neurological: other (No focal defects) Results Result Diagram: 05/06/160 05/06/16 044 Results 24 hrs Laboratory Tests Test 05/05/16 13:42 05/05/16 14:45 05/05/16 15:45 05/06/16 04:40 Arterial Blood HCO3 26.6 H 25.5 Arterial Blood Base Excess -1.3 -0.7 Arterial Blood Oxygen Saturation 96.9 99.4 Zaid Test ACCEPTAB ACCEPTAB Arterial Blood Gas Puncture Site Right Radial Left Radial Arterial Blood Carboxyhemoglobin 0.1 0.2 Arterial Blood Date Drawn 05/05/2016 2:15:17 PM 05/05/2016 4:02:50 PM Arterial Blood Methemoglobin 0.5 0.5 Arterial Blood pCO2 (Temp correct) 56.4 H 47.7 H Arterial Blood pH (Temp corrected) 7.291 *L 7.346 L Arterial Blood pO2 (Temp corrected) 98.9 H 431.4 H Blood Gas A-a O2 Differential 48.7 H 233.9 H Blood Gas Critical Value Read Back A MAGALIE RN Blood Gas Modality TRACH COLLAR VENT - AC Blood Gas Notified Time 05/05/2016 2:34:01 PM 05/05/2016 4:07:33 PM Blood Gas Notified Whom JOANNA MARSHALL Blood Gas Specimen Source Blood arterial Blood arterial Blood Gas Temperature 37.0 37.0 FiO2 30.0 100.0 Oxyhemoglobin Percent 96.3 98.7 Total Hemoglobin 16.4 15.4 Anion Gap 18 H 17 H B-Type Natriuretic Peptide 09478 H Blood Urea Nitrogen 90 H 94 H Calcium Level 9.8 8.7 Carbon Dioxide Level 35 H 29 Chloride Level 105 106 Creatinine 2.27 H 1.95 H Glucose Level 190 93 # Hematocrit 50.6 43.8 Hemoglobin 15.5 14.0 Lactic Acid Level 1.7 Lymphocytes # 1.8 1.0 Lymphocytes % 7.0 L 3.8 L Mean Corpuscular Hemoglobin 30.6 30.2 Mean Corpuscular Hemoglobin Concent 30.6 L 32.0 Mean Corpuscular Volume 100.0 94.6 Mean Platelet Volume 11.4 H 11.7 H Monocytes # 1.0 H 1.1 H Monocytes % 4.0 4.4 Neutrophils # 22.5 H 23.0 H Neutrophils % 89.0 H 91.0 H Platelet Count 324 227 # Potassium Level 5.4 H 3.5 Red Blood Count 5.06 4.63 L Red Cell Distribution Width 13.8 13.9 Sodium Level 153 H 148 H White Blood Count 25.3 H 25.2 H Blood Gas Actual Respiration Rate 14 Blood Gas Low PEEP Setting 5.0 Blood Gas Respiration Rate 14.0 Blood Gas Tidal Volume 500.0 Alanine Aminotransferase (ALT/SGPT) 24 Albumin 3.0 L Albumin/Globulin Ratio 0.88 Alkaline Phosphatase 33 L Aspartate Amino Transf (AST/SGOT) 32 Basophils # 0.0 Basophils % 0.1 Direct Bilirubin 0.00 Eosinophils # 0.0 Eosinophils % 0.0 Globulin 3.40 H Indirect Bilirubin 0.3 Nucleated Red Blood Cells # 0.0 Nucleated Red Blood Cells % 0.0 Total Bilirubin 0.3 Total Protein 6.4 Medications Medications Current Medications Ondansetron HCl (Zofran Inj) 4 mg Q6H PRN IV NAUSEA AND/OR VOMITING; Start 05/01 at 20:30 Acetaminophen (Tylenol Tab) 650 mg Q6H PRN PO PAIN LEVEL 1-3 OR FEVER Last administered on 05/06/16 08:23; Admin Dose 650 MG; Start 05/01/16 at 20:30 Acetaminophen (Tylenol Supp) 650 mg Q6H PRN [place] PAIN LEVEL 1-3 OR FEVER; Start 05/01/16 at 20:30 Docusate Sodium (Colace) 100 mg Q12H PRN PO CONSTIPATION Last administered on 11:52; Admin Dose 100 MG; Start 05/01/16 at 20:30 Magnesium Hydroxide (Milk Of Mag) 30 ml DAILY PRN PO CONSTIPATION Last administered on 05/03/16 11:52; Admin Dose 30 ML; Start 05/01/16 at 20:30 Bisacodyl (Dulcolax) 5 mg DAILY PRN PO CONSTIPATION; Start 05/01/16 at 20:30 Bisacodyl (Dulcolax Supp) 10 mg DAILY PRN [place] CONSTIPATION; Start 05/01/16 at 20: 30 Sodium Biphosphate/ Sodium Phosphate (Fleet Enema) 133 ml DAILY PRN [place] CONSTIPATION; Start 05/01/16 at 20:30 Pantoprazole (Protonix Iv) 40 mg DAILY@06 IV Last administered on 05/06/16 06: 40; Admin Dose 40 MG; Start 05/02/16 at 06:00 Lisinopril (Zestril) 2.5 mg DAILY PO Last administered on 05/04/16 08:26; Admin Dose 2.5 MG; Start 05/03/16 at 09:00 Metoprolol Succinate (Toprol Xl) 12.5 mg DAILY PO Last administered on 08:27; Admin Dose 12.5 MG; Start 05/03/16 at 14:00 Tamsulosin HCl (Flomax) 0.4 mg HS PO Last administered on 05/05/16 21:31; Admin Dose 0.4 MG; Start 05/03/16 at 21:00 Aspirin (Aspirin) 325 mg DAILY PO Last administered on 05/06/16 08:23; Admin Dose 325 MG; Start 05/04/16 at 09:00 Methylprednisolone Sodium Succinate 20 mg 20 mg DAILY IV Last administered on 08:23; Admin Dose 20 MG; Start 05/05/16 at 09:00 Norepinephrine (Levophed) 250 ml @ 1.875 mls/ hr TITRATE IV Last administered on 05/06/16 03:17; Admin Dose 16.688 MLS/HR; Start 05/05/16 at 15:30 Lorazepam (Ativan) 2 mg Q2 PRN IV AGITATION; Start 05/05/16 at 18:00 Morphine Sulfate 2 mg 2 mg Q2H PRN IV PAIN Last administered on 05/06/16 10:23 ; Admin Dose 2 MG; Start 05/05/16 at 18:00 Propofol 100 ml @ 1.896 mls/ hr Q12H IV Last administered on 05/06/16 08:23; Admin Dose 1.896 MLS/HR; Start 05/05/16 at 19:00 Dextrose/Sodium Chloride 1,000 ml @ 45 mls/hr [id number] IV Last administered on 05/06/16 09:24; Admin Dose 45 MLS/HR; Start 05/06/16 at 09:30 Vasopressin 60 unit/Dextrose 60 ml @ 1.2 mls/hr Q12H IV Last administered on 10:41; Admin Dose 2.4 MLS/HR; Start 05/06/16 at 10:30 Piperacillin Sod/ Tazobactam Sod (Zosyn 2.25gm/ 50ml (Pmx)) 50 ml @ 100 mls/hr Q6 IVPB Last administered on 05/06/16t 12:43; Admin Dose 100 MLS/HR; Start 01/12 at 12:00 IV Flush (NS 10 ml) 10 ml PRN PRN IV FLUSH LINE; Start 05/06/16 at 13:00 JAYA GORE May 06, 2016 13:25
[2016-05-06] MEDS: ENOXAPARIN 60 MG/0.6 ML SYG SC SCH (13:41)
[2016-05-06] MEDS: DIGOXIN 500 MCG INJ IV SCH ×2 (15:46→21:26)
[2016-05-06] MEDS ORDERED: SOD CHLORIDE 0.9% 100 ML ONE (16:43)
--- NOTE | 2016-05-06 17:36 | RADRPT ---
Vent Rate: 92 bpm RR Interval: 0 msec ID Interval: 170 msec QRS Duration: 142 msec QT Interval: 444 msec QTC Interval: 549 msec P-R-T [place]: 93 - -65 - 91 degrees Probabl atrail flutter Right bundle branch block Left anterior fascicular block Bifascicular block Septal infarct , age undetermined T wave abnormality, consider lateral ischemia Abnormal ECG Electronically Signed By: Clyde Kendrick [id number]
--- NOTE | 2016-05-06 17:37 | RADRPT ---
Vent Rate: 134 bpm RR Interval: 0 msec [place] Interval: 68 msec QRS Duration: 124 msec QT Interval: 370 msec QTC Interval: 552 msec P-R-T [place]: 0 - -76 - 89 degrees Sinus tachycardia with short [place] with occasional premature ventricular complexes Right bundle branch block Left anterior fascicular block Bifascicular block Septal infarct , age undetermined Abnormal ECG Electronically Signed By: Clyde Kendrick [id number]
--- NOTE | 2016-05-06 18:28 | RADRPT ---
PROCEDURE: US guidance for PICC line CLINICAL INDICATION: PICC line placement TECHNIQUE: Multiple real-time images were acquired of the patient's arm utilizing a high resolutio n transducer. This was performed by the PICC line nurse for venous access. COMPARISON: None FINDINGS: Ultrasound guidance for PICC line placement. IMPRESSION: Ultrasound guidance for PICC line placement. RPTAT: AA .Mikey Espinoza MD, MD Date Time Electronically viewed and signed by .Mikey Espinoza MD, on 05/06/2016 18:27 .S/
--- NOTE | 2016-05-06 20:35 | RADRPT ---
PROCEDURE: XR Abdomen. CLINICAL INDICATION: Abdomen pain. TECHNIQUE: AP supine abdomen x-ray. COMPARISON: None. FINDINGS: The bowel gas pattern is normal with no evidence of obstruction. There is a nasogastric tube with the tip in the second part of the duodenum. A dual lead permanent pacemaker is noted. There are no abnormal calcifications overlying the urinary tracts. There are degenerative changes of the spine and hips. IMPRESSION: 1. No evidence of bowel obstruction. Over the nasogastric tube tip in the second part of the duode num. 3. Dual lead permanent pacemaker. 4. Degenerative changes of the spine and hips. RPTAT: QQ .Henrik Reyna MD, MD Date Time Electronically viewed and signed by .Henrik Reyna MD, MD on 05/06/2016 20:35 .R/
[2016-05-06] MEDS: TAMSULOSIN (SR) 0.4 MG CAP PO SCH (21:25)
[2016-05-07] VITALS (102 sets, daily range): BP systolic 75–153; BP diastolic 44–88; PULSE 69–96; RESP 16–29
[2016-05-07] MEDS: PIPER-TAZO 2.25 GM (PMX) 50 ML IVPB SCH ×5 (00:37→23:37)
[2016-05-07] MEDS: ALBUTEROL HFA 8 GM INHALER INH SCH ×4 (01:20→19:37)
[2016-05-07] MEDS: IPRATROPIUM (HFA) 12.9 GM INHALER INH SCH ×4 (01:20→19:37)
[2016-05-07] MEDS: PANTOPRAZOLE 40 MG INJ IV SCH (06:02)
[2016-05-07] MEDS: PROPOFOL 100 ML IV SCH ×2 (06:03→17:52)
[2016-05-07] MEDS: METHYLPREDNISOLONE 40 MG INJ IV SCH (08:30)
[2016-05-07] MEDS: DEXTROSE 5%-0.45% NACL 1,000 ML IV SCH (08:30)
[2016-05-07] MEDS: ASPIRIN 325 MG TAB PO SCH (08:30)
[2016-05-07] MEDS: ENOXAPARIN 60 MG/0.6 ML SYG SC SCH (08:31)
[2016-05-07] MEDS: VASOPRESSIN 60 UNIT in DEXTROSE 5% 57 ML IV SCH ×2 (10:30→20:35)
--- NOTE | 2016-05-07 11:34 | RADRPT ---
PROCEDURE: XR Chest. CLINICAL INDICATION: Shortness of breath. TECHNIQUE: Single frontal view. COMPARISON: 05/06/2016. FINDINGS: The endotracheal tube, nasogastric tube, and left arm PICC line remain in satisfactory position. Th ere is a right-sided dual lead permanent pacemaker in satisfactory position. There is mild atelecta sis at the lung bases, unchanged. The heart size is normal. There is calcification in the aorta consistent with atherosclerosis. There is no pleural effusion. There is no pneumothorax. IMPRESSION: 1. No change from 05/06/2016. RPTAT: QQ .Henrik Reyna MD, MD Date Time Electronically viewed and signed by .Henrik Reyna MD, MD on 05/07/2016 11:34 .R/
--- NOTE | 2016-05-07 11:54 | CONS ---
Date/Time of Note Date/Time of Note DATE: 05/07/16 TIME: 11:50 Assessment/Plan Assessment/Plan Additional Assessment/Plan Chest x-ray was reviewed from today which is essentially clear. Endotracheal tube is at an adequate level. Next Ventilator settings; AC of 14, tidal volume 500, PEEP of 5, 35% FiO2. Assessment recommendations; 1. Patient admitted for COPD exacerbation leading to respiratory failure. 2. Acute bronchitis. 3. Acute renal insufficiency. 4. Hypertension. 5. History of CHF. 6. History of BPH. Switch the patient to CPAP mode, obtain blood gas in 30 minutes and if the patient meets criteria to extubate him. Meanwhile continue current supportive care. Consultation Date/Type/Reason Admit Date/Time May 01, 2016 at 20:18 Initial Consult Date 05/05/16 Type of Consultation: Pulmonary/critical care Referring Provider: HOLLI LINDER MD 24 HR Interval Summary Free Text/Dictation Patient condition is critical but stable. Patient has been off sedation since last night is awake. She was briefly assessed at bedside on CPAP mode currently has adequate weaning parameters. General exam; elderly male, orally intubated, awake. Currently in no distress. Exam/Review of Systems Vital Signs Vitals Vital Signs Date Time Temp Pulse Resp B/P Pulse Ox O2 Delivery O2 Flow Rate FiO2 05/07/16 11:00 84 18 89/52 96 05/07/16 09:30 35 05/07/16 08:00 99.0 05/07/16 04:00 Mechanical Ventilator 05/05/16 07:44 8.0 Intake and Output 05/06/16 05/06/16 05/07/16 15:00 23:00 07:00 Intake Total 469.5 ml 660 ml 61.87 ml Output Total 165 ml 230 ml 370 ml Balance 304.5 ml 430 ml -308.13 ml Exam H EENT exam; supple neck, no JVD. No lymphadenopathy. Midline trachea. No thyromegaly. Orally intubated. Patient bilateral corneal opacities. Chest examination of [place] diminished but clear breath sounds bilaterally. S1 -S2 audible, no murmurs. Regular rhythm. Abdomen examination; soft, nontender, no organomegaly. Bowel sounds audible. Extremity examination; no peripheral edema. 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 Results Result Diagram: 3/11/17 0440 3/11/17 0440 Medications Medications Current Medications Ondansetron HCl (Zofran Inj) 4 mg Q6H PRN IV NAUSEA AND/OR VOMITING; Start 05/01 at 20:30 Acetaminophen (Tylenol Tab) 650 mg Q6H PRN PO PAIN LEVEL 1-3 OR FEVER Last administered on 05/06/16 08:23; Admin Dose 650 MG; Start 05/01/16 at 20:30 Acetaminophen (Tylenol Supp) 650 mg Q6H PRN [place] PAIN LEVEL 1-3 OR FEVER; Start 05/01/16 at 20:30 Docusate Sodium (Colace) 100 mg Q12H PRN PO CONSTIPATION Last administered on 11:52; Admin Dose 100 MG; Start 05/01/16 at 20:30 Magnesium Hydroxide (Milk Of Mag) 30 ml DAILY PRN PO CONSTIPATION Last administered on 05/03/16 11:52; Admin Dose 30 ML; Start 05/01/16 at 20:30 Bisacodyl (Dulcolax) 5 mg DAILY PRN PO CONSTIPATION; Start 05/01/16 at 20:30 Bisacodyl (Dulcolax Supp) 10 mg DAILY PRN [place] CONSTIPATION; Start 05/01/16 at 20: 30 Sodium Biphosphate/ Sodium Phosphate (Fleet Enema) 133 ml DAILY PRN [place] CONSTIPATION; Start 05/01/16 at 20:30 Pantoprazole (Protonix Iv) 40 mg DAILY@06 IV Last administered on 05/07/16 06: 02; Admin Dose 40 MG; Start 05/02/16 at 06:00 Lisinopril (Zestril) 2.5 mg DAILY PO Last administered on 05/04/16 08:26; Admin Dose 2.5 MG; Start 05/03/16 at 09:00; Status Future Hold Metoprolol Succinate (Toprol Xl) 12.5 mg DAILY PO Last administered on 08:27; Admin Dose 12.5 MG; Start 05/03/16 at 14:00; Status Future Hold Tamsulosin HCl (Flomax) 0.4 mg HS PO Last administered on 05/06/16 21:25; Admin Dose 0.4 MG; Start 05/03/16 at 21:00 Aspirin (Aspirin) 325 mg DAILY PO Last administered on 05/07/16 08:30; Admin Dose 325 MG; Start 05/04/16 at 09:00 Methylprednisolone Sodium Succinate (Solu-Medrol) 20 mg DAILY IV Last administered on 05/07/16 08:30; Admin Dose 20 MG; Start 05/05/16 at 09:00 Lorazepam (Ativan) 2 mg Q2 PRN IV AGITATION; Start 05/05/16 at 18:00 Morphine Sulfate 2 mg 2 mg Q2H PRN IV PAIN Last administered on 05/06/16 10:23 ; Admin Dose 2 MG; Start 05/05/16 at 18:00 Propofol 100 ml @ 1.896 mls/ hr Q12H IV Last administered on 05/06/16 08:23; Admin Dose 1.896 MLS/HR; Start 05/05/16 at 19:00 Dextrose/Sodium Chloride 1,000 ml @ 45 mls/hr [id number] IV Last administered on 05/07/16 08:30; Admin Dose 45 MLS/HR; Start 05/06/16 at 09:30 Vasopressin 60 unit/Dextrose 60 ml @ 1.2 mls/hr Q12H IV Last administered on 10:41; Admin Dose 2.4 MLS/HR; Start 05/06/16 at 10:30 Piperacillin Sod/ Tazobactam Sod (Zosyn 2.25gm/ 50ml (Pmx)) 50 ml @ 100 mls/hr Q6 IVPB Last administered on 05/07/16 11:06; Admin Dose 100 MLS/HR; Start 01/12 at 12:00 IV Flush (NS 10 ml) 10 ml PRN PRN IV FLUSH LINE; Start 05/06/16 at 13:00 Enoxaparin Sodium 60 mg 60 mg DAILY SC Last administered on 05/07/16 08:31; Admin Dose 60 MG; Start 05/06/16 at 13:30 Norepinephrine/ Dextrose (Levophed/D5W) 500 ml @ 1.87 mls/hr TITRATE IV Last administered on 05/07/16 06:40; Admin Dose 16.83 MLS/HR; Start 05/06/16 at 16: 30 GERALDINE CUNNINGHAM 12, 2017 11:53
--- NOTE | 2016-05-07 13:04 | CONS ---
Date/Time of Note Date/Time of Note DATE: 05/07/16 TIME: 12:56 Assessment/Plan Assessment/Plan Chief Complaint/Hosp Course IMPRESSION: 1. Respiratory failure s/p intubation 2. 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 negative troponin x 3 this admit. s/p lexsican LVEF 22%/no ischemia/prior SD 3. 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 Possible cardiac arrhythmia-PAFL now rate controlled s/p IVP digoxin 5. History of asthma/chronic obstructive pulmonary disease. 6. Glaucoma. 7. History of bradycardia. 8. Hypotension on pressors 9. Leukocytosis. 10. Altered mental state. 11. Fevers 12.ARF Recc: -Tele -serial ecg's -Hold ACEI/BB while on pressors -Continue levo with weaning as tolerated -Continue steroids/bronchodilators -Continue lovenox -Follow volume status closely and renal fxn Problems: Consultation Date/Type/Reason Admit Date/Time May 01, 2016 at 20:18 Initial Consult Date 05/02/16 Type of Consultation: Cardiology Reason for Consultation cardiomyopathy/CHF Referring Provider: HOLLI LINDER MD Exam/Review of Systems Vital Signs Vitals Vital Signs Date Time Temp Pulse Resp B/P Pulse Ox O2 Delivery O2 Flow Rate FiO2 05/07/16 12:30 84 25 115/64 94 05/07/16 12:00 99.4 05/07/16 09:30 35 05/07/16 04:00 Mechanical Ventilator 05/05/16 07:44 8.0 Intake and Output 05/06/16 05/06/16 05/07/16 15:00 23:00 07:00 Intake Total 469.5 ml 660 ml 61.87 ml Output Total 165 ml 230 ml 370 ml Balance 304.5 ml 430 ml -308.13 ml Exam Review of Systems: CONSTITUTIONAL: No fevers, chills. PULMONARY: intubated CARDIOVASCULAR: No obvious chest pain/palpitations GASTROINTESTINAL: No nausea/vomiting. GENITOURINARY: No hematuria/dysuria. MUSCULOSKELETAL: No obvious myagias/arthalgias. PSYCHIATRIC: No documented depression. NEUROLOGIC: sedated Constitutional: other (sedated) Psych: no complaints Head: normocephalic ENMT: intubated Neck: jvd (9 cm water), supple Respiratory: other (upper airway rhocherous transmission) Cardiovascular: regular rate and rhythm Gastrointestinal: non-tender, soft Musculoskeletal: muscle tone (normal) Extremities: edema (none) Neurological: other (sedated) Results Result Diagram: 05/06/1643905/06/16439 Medications Medications Current Medications Ondansetron HCl (Zofran Inj) 4 mg Q6H PRN IV NAUSEA AND/OR VOMITING; Start 05/01 at 20:30 Acetaminophen (Tylenol Tab) 650 mg Q6H PRN PO PAIN LEVEL 1-3 OR FEVER Last administered on 05/06/16 08:23; Admin Dose 650 MG; Start 05/01/16 at 20:30 Acetaminophen (Tylenol Supp) 650 mg Q6H PRN [place] PAIN LEVEL 1-3 OR FEVER; Start 05/01/16 at 20:30 Docusate Sodium (Colace) 100 mg Q12H PRN PO CONSTIPATION Last administered on 11:52; Admin Dose 100 MG; Start 05/01/16 at 20:30 Magnesium Hydroxide (Milk Of Mag) 30 ml DAILY PRN PO CONSTIPATION Last administered on 05/03/16 11:52; Admin Dose 30 ML; Start 05/01/16 at 20:30 Bisacodyl (Dulcolax) 5 mg DAILY PRN PO CONSTIPATION; Start 05/01/16 at 20:30 Bisacodyl (Dulcolax Supp) 10 mg DAILY PRN [place] CONSTIPATION; Start 05/01/16 at 20: 30 Sodium Biphosphate/ Sodium Phosphate (Fleet Enema) 133 ml DAILY PRN NM CONSTIPATION; Start 05/01/16 at 20:30 Pantoprazole (Protonix Iv) 40 mg DAILY@06 IV Last administered on 05/07/16 06: 02; Admin Dose 40 MG; Start 05/02/16 at 06:00 Lisinopril (Zestril) 2.5 mg DAILY PO Last administered on 05/04/16 08:26; Admin Dose 2.5 MG; Start 05/03/16 at 09:00; Status Future Hold Metoprolol Succinate (Toprol Xl) 12.5 mg DAILY PO Last administered on 08:27; Admin Dose 12.5 MG; Start 05/03/16 at 14:00; Status Future Hold Tamsulosin HCl (Flomax) 0.4 mg HS PO Last administered on 05/06/16 21:25; Admin Dose 0.4 MG; Start 05/03/16 at 21:00 Aspirin (Aspirin) 325 mg DAILY PO Last administered on 05/07/16 08:30; Admin Dose 325 MG; Start 05/04/16 at 09:00 Methylprednisolone Sodium Succinate (Solu-Medrol) 20 mg DAILY IV Last administered on 05/07/16 08:30; Admin Dose 20 MG; Start 05/05/16 at 09:00 Lorazepam (Ativan) 2 mg Q2 PRN IV AGITATION; Start 05/05/16 at 18:00 Morphine Sulfate 2 mg 2 mg Q2H PRN IV PAIN Last administered on 05/06/16 10:23 ; Admin Dose 2 MG; Start 05/05/16 at 18:00 Propofol 100 ml @ 1.896 mls/ hr Q12H IV Last administered on 05/06/16 08:23; Admin Dose 1.896 MLS/HR; Start 05/05/16 at 19:00 Dextrose/Sodium Chloride 1,000 ml @ 45 mls/hr [id number] IV Last administered on 05/07/16 08:30; Admin Dose 45 MLS/HR; Start 05/06/16 at 09:30 Vasopressin 60 unit/Dextrose 60 ml @ 1.2 mls/hr Q12H IV Last administered on 10:41; Admin Dose 2.4 MLS/HR; Start 05/06/16 at 10:30 Piperacillin Sod/ Tazobactam Sod (Zosyn 2.25gm/ 50ml (Pmx)) 50 ml @ 100 mls/hr Q6 IVPB Last administered on 05/07/16 11:06; Admin Dose 100 MLS/HR; Start 01/12 at 12:00 IV Flush (NS 10 ml) 10 ml PRN PRN IV FLUSH LINE; Start 05/06/16 at 13:00 Enoxaparin Sodium 60 mg 60 mg DAILY SC Last administered on 05/07/16 08:31; Admin Dose 60 MG; Start 05/06/16 at 13:30 Norepinephrine/ Dextrose (Levophed/D5W) 500 ml @ 1.87 mls/hr TITRATE IV Last administered on 3/12/17at 06:40; Admin Dose 16.83 MLS/HR; Start 05/06/16 at 16: 30 JAYA GORE May 07, 2016 13:03
[2016-05-07 14:16] LABS: AADO2 Arterial 121.5 mmHg (7.0-24.0); Arterial COHb 0.3 % (0.0-3.0); Arterial Fraction of Oxyhgb 96.4 % (93.0-99.0); Arterial HCO3 23.6 mmol/L (22.0-26.0); Arterial MetHb 0.4 % (0.0-1.5); Arterial Total Hemglobin 14.8 g/dl (12.0-18.0); Blood Gas PS 10; MODE VENT - CPAP
--- NOTE | 2016-05-07 16:32 | PN ---
Date/Time of Note Date/Time of Note DATE: 05/07/16 TIME: 16:31 Assessment/Plan VTE Prophylaxis VTE Prophylaxis Intervention: other Lines/Catheters IV Catheter Type (from Nrsg): PICC Line Central line still needed: Yes Urinary Cath still in place: Yes Reason Cath still needed: other (indicate) Assessment/Plan Chief Complaint/Hosp Course IMPRESSION: The patient has 1. ACUTE RES FAILURE 2. Obesity. 3. Hypertension. 4. anxiety 5. PACEMAKER HX 6 low ef 7 leucocytosis 8 RHINA SEPSIS plan cardio eval dec steroid TRA ICU PUL CONSULT ANTIBIOTIC Problems: Subjective 24 Hr Interval Summary Subjective hx not possible: other (ON VENT) Exam/Review of Systems Vital Signs Vitals Vital Signs Date Time Temp Pulse Resp B/P Pulse Ox O2 Delivery O2 Flow Rate FiO2 05/07/16 15:45 83 24 120/68 96 05/07/16 15:26 35 05/07/16 12:00 99.4 05/07/16 04:00 Mechanical Ventilator 05/05/16 07:44 8.0 Intake and Output 05/06/16 05/06/16 05/07/16 15:00 23:00 07:00 Intake Total 469.5 ml 660 ml 61.87 ml Output Total 165 ml 230 ml 370 ml Balance 304.5 ml 430 ml -308.13 ml Exam Respiratory: diminished breath sounds Cardiovascular: regular rate and rhythm Gastrointestinal: soft Musculoskeletal: nl extremities to inspection Extremities: No calf tenderness Results Result Diagram: 05/06/160 05/06/16 0440 Results 24 hrs Laboratory Tests Test 05/07/16 14:00 Arterial Blood HCO3 23.6 Arterial Blood Base Excess 1.0 Arterial Blood Oxygen Saturation 97.1 Zaid Test N/A Arterial Blood Gas Puncture Site Right Brachial Arterial Blood Carboxyhemoglobin 0.3 Arterial Blood Date Drawn 05/07/2016 2:05:04 PM Arterial Blood Methemoglobin 0.4 Arterial Blood pCO2 (Temp correct) 31.8 L Arterial Blood pH (Temp corrected) 7.488 H Arterial Blood pO2 (Temp corrected) 91.1 H Blood Gas A-a O2 Differential 121.5 H Blood Gas Actual Respiration Rate 25 Blood Gas Low PEEP Setting 5.0 Blood Gas Modality VENT - CPAP Blood Gas Notified Time 05/07/2016 2:16:09 PM Blood Gas Notified Whom AT Blood Gas Pressure Support 10 Blood Gas Specimen Source Blood arterial Blood Gas Temperature 37.0 FiO2 35.0 Oxyhemoglobin Percent 96.4 Total Hemoglobin 14.8 Medications Medications Current Medications Ondansetron HCl (Zofran Inj) 4 mg Q6H PRN IV NAUSEA AND/OR VOMITING; Start 05/01 at 20:30 Acetaminophen (Tylenol Tab) 650 mg Q6H PRN PO PAIN LEVEL 1-3 OR FEVER Last administered on 05/06/16 08:23; Admin Dose 650 MG; Start 05/01/16 at 20:30 Acetaminophen (Tylenol Supp) 650 mg Q6H PRN [place] PAIN LEVEL 1-3 OR FEVER; Start 05/01/16 at 20:30 Docusate Sodium (Colace) 100 mg Q12H PRN PO CONSTIPATION Last administered on 11:52; Admin Dose 100 MG; Start 05/01/16 at 20:30 Magnesium Hydroxide (Milk Of Mag) 30 ml DAILY PRN PO CONSTIPATION Last administered on 05/03/16 11:52; Admin Dose 30 ML; Start 05/01/16 at 20:30 Bisacodyl (Dulcolax) 5 mg DAILY PRN PO CONSTIPATION; Start 05/01/16 at 20:30 Bisacodyl (Dulcolax Supp) 10 mg DAILY PRN [place] CONSTIPATION; Start 05/01/16 at 20: 30 Sodium Biphosphate/ Sodium Phosphate (Fleet Enema) 133 ml DAILY PRN LA CONSTIPATION; Start 05/01/16 at 20:30 Pantoprazole (Protonix Iv) 40 mg DAILY@06 IV Last administered on 05/07/16 06: 02; Admin Dose 40 MG; Start 05/02/16 at 06:00 Lisinopril (Zestril) 2.5 mg DAILY PO Last administered on 05/04/16 08:26; Admin Dose 2.5 MG; Start 05/03/16 at 09:00; Status Future Hold Metoprolol Succinate (Toprol Xl) 12.5 mg DAILY PO Last administered on 08:27; Admin Dose 12.5 MG; Start 05/03/16 at 14:00; Status Future Hold Tamsulosin HCl (Flomax) 0.4 mg HS PO Last administered on 05/06/16 21:25; Admin Dose 0.4 MG; Start 05/03/16 at 21:00 Aspirin (Aspirin) 325 mg DAILY PO Last administered on 05/07/16 08:30; Admin Dose 325 MG; Start 05/04/16 at 09:00 Methylprednisolone Sodium Succinate (Solu-Medrol) 20 mg DAILY IV Last administered on 05/07/16 08:30; Admin Dose 20 MG; Start 05/05/16 at 09:00 Lorazepam (Ativan) 2 mg Q2 PRN IV AGITATION; Start 05/05/16 at 18:00 Morphine Sulfate 2 mg 2 mg Q2H PRN IV PAIN Last administered on 05/06/16 10:23 ; Admin Dose 2 MG; Start 05/05/16 at 18:00 Propofol 100 ml @ 1.896 mls/ hr Q12H IV Last administered on 05/06/16 08:23; Admin Dose 1.896 MLS/HR; Start 05/05/16 at 19:00 Dextrose/Sodium Chloride 1,000 ml @ 45 mls/hr [id number] IV Last administered on 05/07/16 08:30; Admin Dose 45 MLS/HR; Start 05/06/16 at 09:30 Vasopressin 60 unit/Dextrose 60 ml @ 1.2 mls/hr Q12H IV Last administered on 10:41; Admin Dose 2.4 MLS/HR; Start 05/06/16 at 10:30 Piperacillin Sod/ Tazobactam Sod (Zosyn 2.25gm/ 50ml (Pmx)) 50 ml @ 100 mls/hr Q6 IVPB Last administered on 05/07/16 11:06; Admin Dose 100 MLS/HR; Start 01/12 at 12:00 IV Flush (NS 10 ml) 10 ml PRN PRN IV FLUSH LINE; Start 05/06/16 at 13:00 Enoxaparin Sodium 60 mg 60 mg DAILY SC Last administered on 05/07/16 08:31; Admin Dose 60 MG; Start 05/06/16 at 13:30 Norepinephrine/ Dextrose (Levophed/D5W) 500 ml @ 1.87 mls/hr TITRATE IV Last administered on 05/07/16 06:40; Admin Dose 16.83 MLS/HR; Start 05/06/16 at 16: 30 HOLLI LINDER MD May 07, 2016 16:32
[2016-05-07] MEDS: FLUCONAZOLE 200 MG/NS (PMX) 100 ML IVPB SCH (17:52)
--- NOTE | 2016-05-07 20:55 | CONS ---
DATE OF ADMISSION: 05/01/2016 DATE OF CONSULTATION: 05/07/2016 TYPE OF CONSULTATION: Infectious Disease. REASON FOR CONSULTATION: Antibiotic management. HISTORY OF PRESENT ILLNESS: Shira Mcdaniels is an 85-year-old male who was transferred from [facility] with shortness of breath and with bronchitis. The patient has: 1. Bronchitis. 2. History of bradycardia, status post permanent pacemaker. 3. Glaucoma, legally blind. 4. BPH. 5. Asthmatic. The patient presented to an outside hospital with shortness of breath and complaints of abdominal pa in. His white count on admission was 16.8, hemoglobin 13.7, platelet count 272,000. BUN and creati nine 26 over 1.0. He was treated initially with bronchodilators, antibiotics such as Levaquin and t ransferred to [facility]. Chest x-ray shows mild atelectasis at the lung base, cardiomegal y, right-sided dual lead permanent pacemaker. HOSPITAL COURSE: The patient was seen by a number of different consultants. He was seen by ___ _ in pulmonary consultation, who notes that he was admitted with bronchitis and had to be intubated. He decompensated, was intubated in the emergency room and transferred to the ICU, has a history of advanced dementia. The patient was completely unresponsive on 05/05. His white count on the was 25.3. He was seen again by ____ on the . Chest x-ray was essentially clear, endotrache al tube in an adequate position and was thought to be a candidate for extubation. His chest x-ray t noble showed an ET tube, NG tube, left arm PICC line, right-sided dual lead permanent pacemaker, no a cute changes. The patient is currently on fluconazole. He is on Zosyn. He was on norepinephrine f or his blood pressure. Blood cultures x2 were negative. Urine is negative. His sputum grew out a staph species but not Staph aureus and 4+ Emily albicans, which is probably just contaminant. PAST MEDICAL HISTORY: Operations as outlined. FAMILY HISTORY: Noncontributory. SOCIAL HISTORY: No history of smoking, drinking or abuse of drugs. ALLERGIES: NONE TO PENICILLIN, SULFA OR FOODS. MEDICATIONS: Per chart. REVIEW OF SYSTEMS: As per HPI. PHYSICAL EXAMINATION: GENERAL: The patient is a well-developed, well-nourished elderly-appearing male, intubated on a res pirator. He has an ET tube, NG tube. He has, as noted, a dual chamber pacemaker as well as being o n a variety of different antibiotics. VITAL SIGNS: Stable. He is afebrile. SKIN: Without generalized rash. HEENT: Within normal limits. NECK: Supple. LYMPH NODES: None palpable. CHEST: Decreased breath sounds at the bases with scattered rhonchi. HEART: Without murmur or gallop. ABDOMEN: Soft, nontender without organosplenomegaly or masses. EXTREMITIES: Without cyanosis, clubbing or edema. RECTAL AND GENITAL: Deferred. NEUROLOGIC: The patient is lethargic, barely arousable. IMPRESSION AND PLAN: Continue him on current therapy, extubate when appropriate. Will be happy to follow in his course. I will dictate my findings to Dr. Ramirez and to the consultants aforementioned . Dictated By: RASHIDA CAMPBELL MD, JD/TRACY Conf#: [id number] DID#: [id number]
[2016-05-07] MEDS: TAMSULOSIN (SR) 0.4 MG CAP PO SCH (22:25)
[2016-05-08] VITALS (94 sets, daily range): BP systolic 87–139; BP diastolic 45–87; PULSE 63–87; RESP 19–28
[2016-05-08] MEDS: IPRATROPIUM (HFA) 12.9 GM INHALER INH SCH ×4 (01:34→19:42)
[2016-05-08] MEDS: ALBUTEROL HFA 8 GM INHALER INH SCH ×4 (01:34→19:42)
[2016-05-08 04:41] LABS: ADD SCAN DIFF NO
[2016-05-08 04:54] LABS: ABNORMAL IP MESSAGE 1; BASOPHILS % 0.1 % (0.0-2.0); HEMATOCRIT 41.5 % (42.0-52.0); LYMPHOCYTES # 0.8 10^3/ul (0.8-2.9); LYMPHOCYTES % 3.1 % (15.0-51.0); MEAN CORPUSCULAR HEMOGLOBIN 30.3 pg (29.0-33.0); MEAN CORPUSCULAR HGB CONC 31.3 g/dl (32.0-37.0); MEAN CORPUSCULAR VOLUME 96.7 fl (82.0-101.0); MEAN PLATELET VOLUME 12.2 fl (7.4-10.4); MONOCYTE # 0.6 10^3/ul (0.3-0.9); MONOCYTES % 2.3 % (0.0-11.0); NEUTROPHIL # 23.3 10^3/ul (1.6-7.5); NEUTROPHILS % 93.8 % (39.0-77.0); PLATELET COUNT 162 10^3/UL (140-415); RED BLOOD COUNT 4.29 10^6/ul (4.70-6.10); RED CELL DISTRIBUTION WIDTH 14.1 % (11.5-14.5); WHITE BLOOD COUNT 24.9 10^3/ul (4.8-10.8)
[2016-05-08 05:13] LABS: CREATININE 1.56 mg/dl (0.61-1.24)
[2016-05-08 05:14] LABS: BILIRUBIN,INDIRECT 0.2 mg/dl (0-1.1); BILIRUBIN,TOTAL 0.2 mg/dl (0.2-1.3); CALCIUM 7.8 mg/dl (8.4-10.2)
[2016-05-08] MEDS: DEXTROSE 5%-0.45% NACL 1,000 ML IV SCH (05:15)
[2016-05-08] MEDS: PIPER-TAZO 2.25 GM (PMX) 50 ML IVPB SCH ×4 (05:15→23:11)
[2016-05-08] MEDS: PANTOPRAZOLE 40 MG INJ IV SCH (05:15)
[2016-05-08] MEDS: PROPOFOL 100 ML IV SCH (07:00)
[2016-05-08] MEDS: METHYLPREDNISOLONE 40 MG INJ IV SCH (08:26)
[2016-05-08] MEDS: ASPIRIN 325 MG TAB PO SCH (08:26)
[2016-05-08] MEDS: ENOXAPARIN 60 MG/0.6 ML SYG SC SCH (08:29)
[2016-05-08 08:30] LABS: ALBUMIN 2.4 g/dl (3.3-4.9); ALBUMIN/GLOBULIN RATIO 0.92
[2016-05-08 08:35] LABS: POTASSIUM 2.7 mmol/L (3.5-5.1)
[2016-05-08] MEDS ORDERED: POTASSIUM CHLORIDE 250 ML IVPB ONE (09:00)
[2016-05-08] MEDS: VASOPRESSIN 60 UNIT in DEXTROSE 5% 57 ML IV SCH (10:14)
--- NOTE | 2016-05-08 11:31 | PN ---
DATE: 05/08/2016 INFECTIOUS DISEASE PROGRESS NOTE SUBJECTIVE: No acute events, no changes. The patient is lying comfortably in bed. He is afebrile. The patient is on CPAP, still lethargic. VITAL SIGNS: Temperature 98.8, pulse 73, respirations 20, blood pressure 108/47, saturation 99% on 35 FiO2. WBC 24.9, H and H 13 and 41.5, platelets 162, neutrophils 96.8. No bands. BUN 74, creatinine 1.56. MICROBIOLOGY: Blood and urine cultures remain negative. Sputum culture grew coagulase-negative sta ph species and Emily albicans. INDWELLINGS: Endotracheal tube, NG tube, left upper extremity PICC line, Alfonso. ANTIMICROBIALS: 1. Fluconazole. 2. Zosyn. DIAGNOSTICS: Chest x-ray from yesterday revealed no change. PHYSICAL EXAMINATION: GENERAL: This is a fragile, elderly man who is lying comfortably in bed. HEENT: Head atraumatic, normocephalic. Sclerae anicteric. Buccal mucosa dry. NECK: Supple, trachea midline. CHEST: Rise symmetrical. Breath sounds diminished to bases. HEART: S1, S2. ABDOMEN: Soft, bowel tones present. EXTREMITIES: Without cyanosis. ASSESSMENT 1. Sepsis. 2. Acute respiratory failure. 3. Chronic obstructive pulmonary disease exacerbation with acute bronchitis. 4. Hypertension. 5. History of benign prostatic hypertrophy. 6. Persistent leukocytosis, likely steroids induced. 7. Acute renal failure. PLAN: The patient remains hemodynamically stable. Tolerates CPAP trials. He is covered with approp riate antimicrobials. Pulmonary on case. Continue present care. Dictated By: JOSE G CUNNINGHAM MEDICAL SURGICAL TECH for RASHIDA HUSSEIN/TRACY Conf#: [id number] DID#: [id number]
--- NOTE | 2016-05-08 11:58 | PN ---
DATE: REASON FOR FOLLOWUP: Respiratory failure. SUBJECTIVE: The patient, Mr. Mcdaniels, remains on mechanical ventilation, intubated and sedated, opens eyes, but not following commands. VITAL SIGNS: Currently afebrile, pulse is 84, blood pressure 114/59, O2 saturation 96%, FIO2 of 35% . NECK: Supple, no JVD or lymphadenopathy. HEENT: Dry mucus membranes. Pupils equal, round and reactive to light. CARDIAC: S1, S2. No added sounds or murmurs. CHEST: Diminished air entry bilaterally. ABDOMEN: Soft, nontender. No guarding or rebound. EXTREMITIES: No cyanosis, clubbing, edema. NEUROLOGIC: Generalized weakness, unable to assess. LABORATORY DATA: White count 24.9, hemoglobin 13, platelets 162. BUN 74, creatinine 1.56. Arteria l blood gas pH 7.48, pCO2 of 31, PaO2 of 91. IMPRESSION AND PLAN: 1. Hypoxemic respiratory failure. 2. Possible aspiration pneumonia. 3. History of chronic obstructive pulmonary disease. 4. History of renal failure. 5. Hypertension. PLAN: 1. Continue CPAP weaning trial. 2. Hold off extubation until reintubation status established with family. Given patient's advanced age and confusion and inability to protect airway he is at risk of a reintubation. CRITICAL CARE TIME: 40 minutes. Dictated By: KAVON BARR/TRACY Conf#: [id number] DID#: [id number]
[2016-05-08] MEDS: POTASSIUM CHLORIDE 50 ML IVPB PRN ×4 (13:41→23:10)
--- NOTE | 2016-05-08 15:29 | CONS ---
Date/Time of Note Date/Time of Note DATE: 05/08/16 TIME: 15:26 Assessment/Plan Assessment/Plan Chief Complaint/Hosp Course IMPRESSION: 1. Respiratory failure s/p intubation 2. 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 negative troponin x 3 this admit. s/p lexsican LVEF 22%/no ischemia/prior NM 3. 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 Possible cardiac arrhythmia-PAFL now rate controlled s/p IVP digoxin 5. History of asthma/chronic obstructive pulmonary disease. 6. Glaucoma. 7. History of bradycardia. 8. Hypotension on pressors 9. Leukocytosis. 10. Altered mental state. 11. Fevers 12.ARF 14.Hypokalemia 15.Hypernatremia Recc: -Tele -serial ecg's -Hold ACEI/BB while on pressors -Continue levo with weaning as tolerated -Continue steroids/bronchodilators -Continue lovenox -Follow volume status closely and renal fxn -Dose lasix and follow volume status Problems: Consultation Date/Type/Reason Admit Date/Time May 01, 2016 at 20:18 Initial Consult Date 05/02/16 Type of Consultation: Cardiology Reason for Consultation cardiomyopathy Referring Provider: HOLLI LINDER MD Exam/Review of Systems Vital Signs Vitals Vital Signs Date Time Temp Pulse Resp B/P Pulse Ox O2 Delivery O2 Flow Rate FiO2 05/08/16 15:16 85 23 98 35 05/08/16 15:00 129/77 CPAP 05/08/16 12:00 97.8 05/05/16 07:44 8.0 Intake and Output 05/07/16 05/07/16 05/08/16 15:00 23:00 07:00 Intake Total 556.25 ml 404.74 ml 505.00 ml Output Total 425 ml 325 ml 305 ml Balance 131.25 ml 79.74 ml 200.00 ml Exam Review of Systems: CONSTITUTIONAL: No fevers, chills. PULMONARY: intubated CARDIOVASCULAR: No obvious chest pain/palpitations GASTROINTESTINAL: No nausea/vomiting. GENITOURINARY: No hematuria/dysuria. MUSCULOSKELETAL: No obvious myagias/arthalgias. PSYCHIATRIC: The patient denies depression. NEUROLOGIC: No weakness Constitutional: alert Psych: no complaints Head: normocephalic ENMT: mucosa pink and moist Neck: jvd (9cm water), supple Respiratory: diminished breath sounds (at upper airway rhochi) Cardiovascular: irregular rhythm Gastrointestinal: non-tender, soft Musculoskeletal: muscle tone (normal) Extremities: edema (trace/B) Neurological: other (sedated) Results Result Diagram: 05/08/160 05/08/16 0400 Results 24 hrs Laboratory Tests Test 05/08/16 04:00 Alanine Aminotransferase (ALT/SGPT) 26 Albumin 2.4 L Albumin/Globulin Ratio 0.92 Alkaline Phosphatase 33 L Anion Gap 14 Aspartate Amino Transf (AST/SGOT) 31 Basophils # 0.0 Basophils % 0.1 Blood Urea Nitrogen 74 H Calcium Level 7.8 L Carbon Dioxide Level 30 Chloride Level 109 Creatinine 1.56 H Direct Bilirubin 0.00 Eosinophils # 0.0 Eosinophils % 0.0 Globulin 2.60 Glucose Level 153 Hematocrit 41.5 L Hemoglobin 13.0 L Indirect Bilirubin 0.2 Lymphocytes # 0.8 Lymphocytes % 3.1 L Mean Corpuscular Hemoglobin 30.3 Mean Corpuscular Hemoglobin Concent 31.3 L Mean Corpuscular Volume 96.7 Mean Platelet Volume 12.2 H Monocytes # 0.6 Monocytes % 2.3 Neutrophils # 23.3 H Neutrophils % 93.8 H Nucleated Red Blood Cells # 0.0 Nucleated Red Blood Cells % 0.0 Platelet Count 162 # Potassium Level 2.7 *L Red Blood Count 4.29 L Red Cell Distribution Width 14.1 Sodium Level 150 H Total Bilirubin 0.2 Total Protein 5.0 #L White Blood Count 24.9 H Medications Medications Current Medications Ondansetron HCl (Zofran Inj) 4 mg Q6H PRN IV NAUSEA AND/OR VOMITING; Start 05/01 at 20:30 Acetaminophen (Tylenol Tab) 650 mg Q6H PRN PO PAIN LEVEL 1-3 OR FEVER Last administered on 05/06/16 08:23; Admin Dose 650 MG; Start 05/01/16 at 20:30 Acetaminophen (Tylenol Supp) 650 mg Q6H PRN [place] PAIN LEVEL 1-3 OR FEVER; Start 05/01/16 at 20:30 Docusate Sodium (Colace) 100 mg Q12H PRN PO CONSTIPATION Last administered on 11:52; Admin Dose 100 MG; Start 05/01/16 at 20:30 Magnesium Hydroxide (Milk Of Mag) 30 ml DAILY PRN PO CONSTIPATION Last administered on 05/03/16 11:52; Admin Dose 30 ML; Start 05/01/16 at 20:30 Bisacodyl (Dulcolax) 5 mg DAILY PRN PO CONSTIPATION; Start 05/01/16 at 20:30 Bisacodyl (Dulcolax Supp) 10 mg DAILY PRN [place] CONSTIPATION; Start 05/01/16 at 20: 30 Sodium Biphosphate/ Sodium Phosphate (Fleet Enema) 133 ml DAILY PRN DC CONSTIPATION; Start 05/01/16 at 20:30 Pantoprazole (Protonix Iv) 40 mg DAILY@06 IV Last administered on 05/08/16 05: 15; Admin Dose 40 MG; Start 05/02/16 at 06:00 Lisinopril (Zestril) 2.5 mg DAILY PO Last administered on 05/04/16 08:26; Admin Dose 2.5 MG; Start 05/03/16 at 09:00; Status Future Hold Metoprolol Succinate (Toprol Xl) 12.5 mg DAILY PO Last administered on 08:27; Admin Dose 12.5 MG; Start 05/03/16 at 14:00; Status Future Hold Tamsulosin HCl (Flomax) 0.4 mg HS PO Last administered on 05/07/16 22:25; Admin Dose 0.4 MG; Start 05/03/16 at 21:00 Aspirin (Aspirin) 325 mg DAILY PO Last administered on 05/08/16 08:26; Admin Dose 325 MG; Start 05/04/16 at 09:00 Methylprednisolone Sodium Succinate (Solu-Medrol) 20 mg DAILY IV Last administered on 05/08/16 08:26; Admin Dose 20 MG; Start 05/05/16 at 09:00 Lorazepam (Ativan) 2 mg Q2 PRN IV AGITATION; Start 05/05/16 at 18:00 Morphine Sulfate 2 mg 2 mg Q2H PRN IV PAIN Last administered on 05/06/16 10:23 ; Admin Dose 2 MG; Start 05/05/16 at 18:00 Dextrose/Sodium Chloride 1,000 ml @ 45 mls/hr [id number] IV Last administered on 05/08/16 05:15; Admin Dose 45 MLS/HR; Start 05/06/16 at 09:30 Piperacillin Sod/ Tazobactam Sod (Zosyn 2.25gm/ 50ml (Pmx)) 50 ml @ 100 mls/hr Q6 IVPB Last administered on 05/08/16 13:40; Admin Dose 100 MLS/HR; Start 01/12 at 12:00 IV Flush (NS 10 ml) 10 ml PRN PRN IV FLUSH LINE; Start 05/06/16 at 13:00 Enoxaparin Sodium 60 mg 60 mg DAILY SC Last administered on 05/08/16 08:29; Admin Dose 60 MG; Start 05/06/16 at 13:30 Norepinephrine 16 mg/Dextrose 500 ml @ 1.87 mls/hr TITRATE IV Last administered on 05/07/16 06:40; Admin Dose 16.83 MLS/HR; Start 05/06/16 at 16: 30 Fluconazole (Diflucan 200 Mg/ NS (Pmx)) 100 ml @ 100 mls/hr Q24H IVPB Last administered on 05/07/16 17:52; Admin Dose 100 MLS/HR; Start 05/07/16 at 18:00 JAYA GORE 13, 2017 15:29
[2016-05-08] MEDS ORDERED: FUROSEMIDE 20 MG INJ IV ONE (15:30)
[2016-05-08] MEDS: FLUCONAZOLE 200 MG/NS (PMX) 100 ML IVPB SCH (17:12)
[2016-05-08] MEDS: TAMSULOSIN (SR) 0.4 MG CAP PO SCH (21:39)
[2016-05-08] MEDS: DOCUSATE SODIUM 10 MG/ML (10ML CUP) NGT SCH (21:39)
--- NOTE | 2016-05-08 23:07 | PN ---
Date/Time of Note Date/Time of Note DATE: 05/08/16 TIME: 23:05 Assessment/Plan VTE Prophylaxis VTE Prophylaxis Intervention: other Lines/Catheters IV Catheter Type (from Nrs): Saline Lock Urinary Cath still in place: Yes Reason Cath still needed: other (indicate) Assessment/Plan Chief Complaint/Hosp Course IMPRESSION: The patient has 1. ACUTE RES FAILURE 2. hypernatremia 3. Hypertension. 4. anxiety 5. PACEMAKER HX 6 low ef 7 leucocytosis 8 RHINA SEPSIS plan cardio eval dec steroid per id ANTIBIOTIC Problems: Subjective 24 Hr Interval Summary Respiratory: shortness of breath (+) Exam/Review of Systems Vital Signs Vitals Vital Signs Date Time Temp Pulse Resp B/P Pulse Ox O2 Delivery O2 Flow Rate FiO2 05/08/16 22:00 76 19 127/59 96 CPAP 05/08/16 20:01 35 05/08/16 20:00 98.0 05/05/16 07:44 8.0 Intake and Output 05/07/16 05/07/16 05/08/16 15:00 23:00 07:00 Intake Total 556.25 ml 404.74 ml 505.00 ml Output Total 425 ml 325 ml 305 ml Balance 131.25 ml 79.74 ml 200.00 ml Exam Neck: supple Respiratory: diminished breath sounds Cardiovascular: regular rate and rhythm Gastrointestinal: soft Extremities: No edema Results Result Diagram: 05/08/16 0400 05/08/16 1850 Results 24 hrs Laboratory Tests Test 05/08/16 04:00 05/08/16 18:50 Alanine Aminotransferase (ALT/SGPT) 26 Albumin 2.4 L Albumin/Globulin Ratio 0.92 Alkaline Phosphatase 33 L Anion Gap 14 Aspartate Amino Transf (AST/SGOT) 31 Basophils # 0.0 Basophils % 0.1 Blood Urea Nitrogen 74 H Calcium Level 7.8 L Carbon Dioxide Level 30 Chloride Level 109 Creatinine 1.56 H Direct Bilirubin 0.00 Eosinophils # 0.0 Eosinophils % 0.0 Globulin 2.60 Glucose Level 153 Hematocrit 41.5 L Hemoglobin 13.0 L Indirect Bilirubin 0.2 Lymphocytes # 0.8 Lymphocytes % 3.1 L Mean Corpuscular Hemoglobin 30.3 Mean Corpuscular Hemoglobin Concent 31.3 L Mean Corpuscular Volume 96.7 Mean Platelet Volume 12.2 H Monocytes # 0.6 Monocytes % 2.3 Neutrophils # 23.3 H Neutrophils % 93.8 H Nucleated Red Blood Cells # 0.0 Nucleated Red Blood Cells % 0.0 Platelet Count 162 # Potassium Level 2.7 *L 3.6 Red Blood Count 4.29 L Red Cell Distribution Width 14.1 Sodium Level 150 H Total Bilirubin 0.2 Total Protein 5.0 #L White Blood Count 24.9 H Medications Medications Current Medications Ondansetron HCl (Zofran Inj) 4 mg Q6H PRN IV NAUSEA AND/OR VOMITING; Start 05/01 at 20:30 Acetaminophen (Tylenol Tab) 650 mg Q6H PRN PO PAIN LEVEL 1-3 OR FEVER Last administered on 05/06/16 08:23; Admin Dose 650 MG; Start 05/01/16 at 20:30 Acetaminophen (Tylenol Supp) 650 mg Q6H PRN [place] PAIN LEVEL 1-3 OR FEVER; Start 05/01/16 at 20:30 Docusate Sodium (Colace) 100 mg Q12H PRN PO CONSTIPATION Last administered on 11:52; Admin Dose 100 MG; Start 05/01/16 at 20:30 Magnesium Hydroxide (Milk Of Mag) 30 ml DAILY PRN PO CONSTIPATION Last administered on 05/03/16 11:52; Admin Dose 30 ML; Start 05/01/16 at 20:30 Bisacodyl (Dulcolax) 5 mg DAILY PRN PO CONSTIPATION; Start 05/01/16 at 20:30 Bisacodyl (Dulcolax Supp) 10 mg DAILY PRN [place] CONSTIPATION; Start 05/01/16 at 20: 30 Sodium Biphosphate/ Sodium Phosphate (Fleet Enema) 133 ml DAILY PRN [place] CONSTIPATION; Start 05/01/16 at 20:30 Pantoprazole (Protonix Iv) 40 mg DAILY@06 IV Last administered on 05/08/16 05: 15; Admin Dose 40 MG; Start 05/02/16 at 06:00 Lisinopril (Zestril) 2.5 mg DAILY PO Last administered on 05/04/16 08:26; Admin Dose 2.5 MG; Start 05/03/16 at 09:00; Status Future Hold Metoprolol Succinate (Toprol Xl) 12.5 mg DAILY PO Last administered on 08:27; Admin Dose 12.5 MG; Start 05/03/16 at 14:00; Status Future Hold Tamsulosin HCl (Flomax) 0.4 mg HS PO Last administered on 05/08/16 21:39; Admin Dose 0.4 MG; Start 05/03/16 at 21:00 Aspirin (Aspirin) 325 mg DAILY PO Last administered on 05/08/16 08:26; Admin Dose 325 MG; Start 05/04/16 at 09:00 Methylprednisolone Sodium Succinate (Solu-Medrol) 20 mg DAILY IV Last administered on 05/08/16 08:26; Admin Dose 20 MG; Start 05/05/16 at 09:00 Lorazepam (Ativan) 2 mg Q2 PRN IV AGITATION; Start 05/05/16 at 18:00 Morphine Sulfate 2 mg 2 mg Q2H PRN IV PAIN Last administered on 05/06/16 10:23 ; Admin Dose 2 MG; Start 05/05/16 at 18:00 Dextrose/Sodium Chloride 1,000 ml @ 45 mls/hr [id number] IV Last administered on 05/08/16 05:15; Admin Dose 45 MLS/HR; Start 05/06/16 at 09:30 Piperacillin Sod/ Tazobactam Sod (Zosyn 2.25gm/ 50ml (Pmx)) 50 ml @ 100 mls/hr Q6 IVPB Last administered on 05/08/16 17:12; Admin Dose 100 MLS/HR; Start 01/12 at 12:00 IV Flush (NS 10 ml) 10 ml PRN PRN IV FLUSH LINE; Start 05/06/16 at 13:00 Enoxaparin Sodium 60 mg 60 mg DAILY SC Last administered on 05/08/16 08:29; Admin Dose 60 MG; Start 05/06/16 at 13:30 Norepinephrine 16 mg/Dextrose 500 ml @ 1.87 mls/hr TITRATE IV Last administered on 05/07/16 06:40; Admin Dose 16.83 MLS/HR; Start 05/06/16 at 16: 30 Fluconazole (Diflucan 200 Mg/ NS (Pmx)) 100 ml @ 100 mls/hr Q24H IVPB Last administered on 05/08/16 17:12; Admin Dose 100 MLS/HR; Start 05/07/16 at 18:00 Docusate Sodium (Colace Liquid Cup) 100 mg TID NGT Last administered on t 21:39; Admin Dose 100 MG; Start 05/08/16 at 21:00 Polyethylene Glycol (Miralax) 17 gm DAILY GTB ; Start 05/09/16 at 09:00 HOLLI LINDER MD May 08, 2016 23:06
[2016-05-09] VITALS (36 sets, daily range): BP systolic 89–148; BP diastolic 44–85; PULSE 68–98; RESP 14–30
[2016-05-09] MEDS: POTASSIUM CHLORIDE 50 ML IVPB PRN (00:30)
[2016-05-09] MEDS: ALBUTEROL HFA 8 GM INHALER INH SCH ×4 (01:31→19:47)
[2016-05-09] MEDS: IPRATROPIUM (HFA) 12.9 GM INHALER INH SCH ×4 (01:31→19:47)
[2016-05-09] MEDS: DEXTROSE 5%-0.45% NACL 1,000 ML IV SCH ×2 (01:35→20:32)
[2016-05-09] MEDS: morphine 2 MG INJ IV PRN (01:35)
[2016-05-09 04:52] LABS: ADD SCAN DIFF NO
[2016-05-09 05:05] LABS: RED BLOOD COUNT 3.97 10^6/ul (4.70-6.10); WHITE BLOOD COUNT 22.9 10^3/ul (4.8-10.8)
[2016-05-09 05:06] LABS: ABNORMAL IP MESSAGE 1; BASOPHILS % 0.1 % (0.0-2.0); HEMATOCRIT 39.1 % (42.0-52.0); HEMOGLOBIN 11.9 g/dl (14.0-18.0); LYMPHOCYTES # 0.7 10^3/ul (0.8-2.9); LYMPHOCYTES % 3.2 % (15.0-51.0); MEAN CORPUSCULAR HGB CONC 30.4 g/dl (32.0-37.0); MEAN CORPUSCULAR VOLUME 98.5 fl (82.0-101.0); MEAN PLATELET VOLUME 11.8 fl (7.4-10.4); MONOCYTE # 0.7 10^3/ul (0.3-0.9); MONOCYTES % 2.9 % (0.0-11.0); NEUTROPHIL # 21.2 10^3/ul (1.6-7.5); NEUTROPHILS % 92.3 % (39.0-77.0); PLATELET COUNT 120 10^3/UL (140-415); RED CELL DISTRIBUTION WIDTH 14.1 % (11.5-14.5)
[2016-05-09 05:20] LABS: ALBUMIN 2.3 g/dl (3.3-4.9); POTASSIUM 3.7 mmol/L (3.5-5.1)
[2016-05-09 05:22] LABS: CREATININE 1.67 mg/dl (0.61-1.24)
[2016-05-09 05:23] LABS: ALBUMIN/GLOBULIN RATIO 0.74; BILIRUBIN,INDIRECT 0.1 mg/dl (0-1.1); BILIRUBIN,TOTAL 0.1 mg/dl (0.2-1.3); TOTAL PROTEIN 5.4 g/dl (6.1-8.1)
[2016-05-09] MEDS: PANTOPRAZOLE 40 MG INJ IV SCH (05:41)
[2016-05-09] MEDS: PIPER-TAZO 2.25 GM (PMX) 50 ML IVPB SCH ×3 (05:41→18:24)
[2016-05-09] MEDS: DOCUSATE SODIUM 10 MG/ML (10ML CUP) NGT SCH ×3 (08:08→20:31)
[2016-05-09] MEDS: ASPIRIN 325 MG TAB PO SCH (08:08)
[2016-05-09] MEDS: POLYETHYLENE GLYCOL 17 GM PACKET GTB SCH (08:09)
[2016-05-09] MEDS: METHYLPREDNISOLONE 40 MG INJ IV SCH (08:09)
[2016-05-09] MEDS: ENOXAPARIN 60 MG/0.6 ML SYG SC SCH (08:10)
--- NOTE | 2016-05-09 08:52 | CONS ---
Date/Time of Note Date/Time of Note DATE: 05/09/16 TIME: 08:46 Assessment/Plan Assessment/Plan Additional Assessment/Plan 1. Respiratory failure s/p intubation - stable on vent, pulm team follows - con 't to follow 2. 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 negative troponin x 3 this admit. s/p lexsican LVEF 22%/no ischemia/prior [place] - con't to keep euvolemic 3. Permanent pacemaker- no signs of dysfunction - paced intermittently 4. Possible cardiac arrhythmia-PAFL now rate controlled s/p IVP digoxin - A. fib now - rate mostly controlled 5. History of asthma/chronic obstructive pulmonary disease. 6. Glaucoma. 7. History of bradycardia - pacer in place 8. Hypotension on pressors 9. Leukocytosis - on anti-bx, con't med rx. 10. Altered mental state. 11. Fevers 12.ARF - renal team follows, avoid nephrotoxic meds 14.Hypokalemia 15.Hypernatremia Consultation Date/Type/Reason Admit Date/Time May 01, 2016 at 20:18 Initial Consult Date 05/05/16 Type of Consultation: Cardiology Referring Provider: HOLLI LINDER MD 24 HR Interval Summary Free Text/Dictation NO acute change - rate controlled- still in a. fib - pacer for sundeep support. ROS: No fever, no chills, no nausea, no vomiting, no diarrhea/constipation No recent weight changes No chest pain, no PND, no orthopnea No dizziness, blurred vision No thirst, no heat or cold intolerance (per nurse) Exam/Review of Systems Vital Signs Vitals Vital Signs Date Time Temp Pulse Resp B/P Pulse Ox O2 Delivery O2 Flow Rate FiO2 05/09/16 06:00 74 15 106/63 98 05/09/16 05:25 35 05/09/16 04:00 Mechanical Ventilator 05/09/16 00:00 98.2 05/05/16 07:44 8.0 Intake and Output 05/08/16 05/08/16 05/09/16 15:00 23:00 07:00 Intake Total 298.09 ml 536.24 ml 195 ml Output Total 280 ml 705 ml 255 ml Balance 18.09 ml -168.76 ml -60 ml Exam General: WN/WD/NAD, AOx 0 HEENT: Unicetric/atraumatic/EOMI (does not follow commands) NECK: JVD elevated, no thyromegaly, intub Lymph: no lymphadenopathy HEART: regular with no S3, II/ systolic murmur at apex LUNGS: Coarse sounds ABD: soft, NT, ND, +BS : Intact Neuro: non focal SKIN: chronic changes EXT: trace edema Results Result Diagram: 05/09/16 0400 05/09/16 0400 Results 24 hrs Laboratory Tests Test 05/08/16 18:50 05/09/16 04:00 Potassium Level 3.6 3.7 Alanine Aminotransferase (ALT/SGPT) 23 Albumin 2.3 L Albumin/Globulin Ratio 0.74 Alkaline Phosphatase 37 L Anion Gap 15 Aspartate Amino Transf (AST/SGOT) 28 Basophils # 0.0 Basophils % 0.1 Blood Urea Nitrogen 72 H Calcium Level 8.0 L Carbon Dioxide Level 29 Chloride Level 114 H Creatinine 1.67 H Direct Bilirubin 0.00 Eosinophils # 0.0 Eosinophils % 0.0 Globulin 3.10 Glucose Level 141 Hematocrit 39.1 L Hemoglobin 11.9 L Indirect Bilirubin 0.1 Lymphocytes # 0.7 L Lymphocytes % 3.2 L Mean Corpuscular Hemoglobin 30.0 Mean Corpuscular Hemoglobin Concent 30.4 L Mean Corpuscular Volume 98.5 Mean Platelet Volume 11.8 H Monocytes # 0.7 Monocytes % 2.9 Neutrophils # 21.2 H Neutrophils % 92.3 H Nucleated Red Blood Cells # 0.0 Nucleated Red Blood Cells % 0.0 Platelet Count 120 #L Red Blood Count 3.97 L Red Cell Distribution Width 14.1 Sodium Level 154 H Total Bilirubin 0.1 L Total Protein 5.4 L White Blood Count 22.9 H Medications Medications Current Medications Ondansetron HCl (Zofran Inj) 4 mg Q6H PRN IV NAUSEA AND/OR VOMITING; Start 05/01 at 20:30 Acetaminophen (Tylenol Tab) 650 mg Q6H PRN PO PAIN LEVEL 1-3 OR FEVER Last administered on 05/06/16t 08:23; Admin Dose 650 MG; Start 05/01/16 at 20:30 Acetaminophen (Tylenol Supp) 650 mg Q6H PRN [place] PAIN LEVEL 1-3 OR FEVER; Start 05/01/16 at 20:30 Docusate Sodium (Colace) 100 mg Q12H PRN PO CONSTIPATION Last administered on 11:52; Admin Dose 100 MG; Start 05/01/16 at 20:30 Magnesium Hydroxide (Milk Of Mag) 30 ml DAILY PRN PO CONSTIPATION Last administered on 05/03/16 11:52; Admin Dose 30 ML; Start 05/01/16 at 20:30 Bisacodyl (Dulcolax) 5 mg DAILY PRN PO CONSTIPATION; Start 05/01/16 at 20:30 Bisacodyl (Dulcolax Supp) 10 mg DAILY PRN [place] CONSTIPATION; Start 05/01/16 at 20: 30 Sodium Biphosphate/ Sodium Phosphate (Fleet Enema) 133 ml DAILY PRN [place] CONSTIPATION; Start 05/01/16 at 20:30 Pantoprazole (Protonix Iv) 40 mg DAILY@06 IV Last administered on 05/09/16 05: 41; Admin Dose 40 MG; Start 05/02/16 at 06:00 Lisinopril (Zestril) 2.5 mg DAILY PO Last administered on 05/04/16 08:26; Admin Dose 2.5 MG; Start 05/03/16 at 09:00; Status Future Hold Metoprolol Succinate (Toprol Xl) 12.5 mg DAILY PO Last administered on 08:27; Admin Dose 12.5 MG; Start 05/03/16 at 14:00; Status Future Hold Tamsulosin HCl (Flomax) 0.4 mg HS PO Last administered on 05/08/16 21:39; Admin Dose 0.4 MG; Start 05/03/16 at 21:00 Aspirin (Aspirin) 325 mg DAILY PO Last administered on 05/09/16 08:08; Admin Dose 325 MG; Start 05/04/16 at 09:00 Methylprednisolone Sodium Succinate (Solu-Medrol) 20 mg DAILY IV Last administered on 05/09/16 08:09; Admin Dose 20 MG; Start 05/05/16 at 09:00 Lorazepam (Ativan) 2 mg Q2 PRN IV AGITATION; Start 05/05/16 at 18:00 Morphine Sulfate 2 mg 2 mg Q2H PRN IV PAIN Last administered on 05/09/16 01:35 ; Admin Dose 2 MG; Start 05/05/16 at 18:00 Dextrose/Sodium Chloride 1,000 ml @ 45 mls/hr [id number] IV Last administered on 05/09/16 01:35; Admin Dose 45 MLS/HR; Start 05/06/16 at 09:30 Piperacillin Sod/ Tazobactam Sod (Zosyn 2.25gm/ 50ml (Pmx)) 50 ml @ 100 mls/hr Q6 IVPB Last administered on 05/09/16 05:41; Admin Dose 100 MLS/HR; Start 01/12 at 12:00 IV Flush (NS 10 ml) 10 ml PRN PRN IV FLUSH LINE; Start 05/06/16 at 13:00 Enoxaparin Sodium 60 mg 60 mg DAILY SC Last administered on 05/09/16 08:10; Admin Dose 60 MG; Start 05/06/16 at 13:30 Norepinephrine 16 mg/Dextrose 500 ml @ 1.87 mls/hr TITRATE IV Last administered on 05/07/16 06:40; Admin Dose 16.83 MLS/HR; Start 05/06/16 at 16: 30 Fluconazole (Diflucan 200 Mg/ NS (Pmx)) 100 ml @ 100 mls/hr Q24H IVPB Last administered on 05/08/16 17:12; Admin Dose 100 MLS/HR; Start 05/07/16 at 18:00 Docusate Sodium (Colace Liquid Cup) 100 mg TID NGT Last administered on 08:08; Admin Dose 100 MG; Start 05/08/16 at 21:00 Polyethylene Glycol (Miralax) 17 gm DAILY GTB Last administered on 05/09/16 08 :09; Admin Dose 17 GM; Start 05/09/16 at 09:00 ZEUS CHAPPELL MD May 09, 2016 08:52
[2016-05-09] MEDS ORDERED: SOD CHLORIDE 0.9% 250 ML IV ONE (09:00)
--- NOTE | 2016-05-09 10:59 | PN ---
DATE: 05/09/2016 SUBJECTIVE: Patient remains stable. He seems more alert. Eyes open, not consistently following co mmands, but hemodynamically stable. PHYSICAL EXAMINATION: VITAL SIGNS: Temperature 98, pulse 74, blood pressure 106/63, O2 saturation 96%, FIO2 of 35%. HEENT: Dry mucous membranes. Pupils equal and reactive to light. CARDIAC: S1, S2, no added sounds or murmurs. CHEST: Diminished air entry bilaterally. ABDOMEN: Soft, nontender. No guarding or rebound. EXTREMITIES: No cyanosis, clubbing, edema. NEUROLOGIC: Generalized weakness. LABORATORY DATA: White count 22.9, hemoglobin 11.9, platelets 120, BUN 72, creatinine 1.67. Sodium 154. IMAGING: Chest x-ray was reviewed, shows bibasilar infiltrates. IMPRESSION AND PLAN: 1. Hypoxemic respiratory failure. I attempted CPAP weaning trial this morning, patient on the last 15 minutes before having significant tachypnea. 2. Possible history of aspiration pneumonia. 3. History of dementia. 4. Bradycardia with pacemaker. 5. History of heart failure with systolic dysfunction. Patient will require: 1. Continued mechanical ventilation. 2. Decrease FIO2 as tolerated. 3. Will attempt CPAP weaning trial on a daily basis. 4. Family meeting regarding goals of care, specifically code status and need for tracheostomy if th e patient is unable to come off the ventilator. Dictated By: KAVON BARR/TRACY Conf#: [id number] DID#: [id number]
[2016-05-09] MEDS ORDERED: FUROSEMIDE 20 MG INJ IV ONE (11:30)
[2016-05-09 11:55] LABS: AADO2 Arterial 106.9 mmHg (7.0-24.0); Allen Test ACCEPTAB; Arterial Base Excess 2.7 mmol/L (-3.0-3); Arterial COHb 0.3 % (0.0-3.0); Arterial Fraction of Oxyhgb 97.8 % (93.0-99.0); Arterial HCO3 23.6 mmol/L (22.0-26.0); Arterial MetHb 0.4 % (0.0-1.5); Arterial Total Hemglobin 13.6 g/dl (12.0-18.0); MODE VENT - SIMV
[2016-05-09 11:57] LABS: Blood Gas PS 14
[2016-05-09] MEDS: LORAZEPAM 2 MG INJ IV PRN (12:35)
--- NOTE | 2016-05-09 14:48 | PN ---
DATE: SUBJECTIVE: No acute changes overnight. The patient is anuric, status post fluid bolus received an d still no output. No fevers. VITAL SIGNS: Temperature 98, pulse 83, respirations 23, blood pressure 112/68, saturation 97 on 35% FIO2. WBC 22.9, H and H 11.9 and 39.1, platelets 120, neutrophils 92.3. BUN 72, creatinine 1.67. INDWELLINGS: Endotracheal tube, NG tube, Alfonso catheter, PICC line placed on 05/06. ANTIMICROBIALS: 1. Fluconazole. 2. Zosyn. PHYSICAL EXAMINATION: GENERAL: This is a chronically ill-appearing, elderly man who is lying comfortably in bed. HEENT: Head atraumatic, normocephalic. Sclerae anicteric. Buccal mucosa dry. NECK: Supple, trachea midline. CHEST: Rise symmetrical. Breath sounds diminished. HEART: S1, S2. ABDOMEN: Soft, bowel tones present. EXTREMITIES: Without cyanosis. ASSESSMENT: 1. Acute hypoxemic respiratory failure. 2. Possible aspiration pneumonia. 3. Acute renal failure with anuria. 4. Chronic obstructive pulmonary disease exacerbation. 5. Hypertension by history. 6. History of benign prostatic hypertrophy. 7. Leukocytosis; patient remains on steroids. PLAN: Patient remains hemodynamically stable now with worsening renal function and anuria. Nephrol ogy on case. Continue present care, antibiotics. Follow chest x-ray. Panculture p.r.n. Dictated By: JOSE G CUNNINGHAM PARACHUTE FOLDER for RASHIDA HUSSEIN/TRACY Conf#: [id number] DID#: [id number]
[2016-05-09] MEDS: FLUCONAZOLE 200 MG/NS (PMX) 100 ML IVPB SCH (18:54)
[2016-05-09] MEDS: TAMSULOSIN (SR) 0.4 MG CAP PO SCH (20:31)
--- NOTE | 2016-05-09 20:40 | PN ---
Date/Time of Note Date/Time of Note DATE: 05/09/16 TIME: 20:39 Assessment/Plan VTE Prophylaxis VTE Prophylaxis Intervention: other Lines/Catheters IV Catheter Type (from Nrsg): PICC Line Central line still needed: Yes Urinary Cath still in place: Yes Reason Cath still needed: other (indicate) Assessment/Plan Chief Complaint/Hosp Course IMPRESSION: The patient has 1. ACUTE RES FAILURE 2. hypernatremia 3. Hypertension. 4. anxiety 5. PACEMAKER HX 6 low ef 7 leucocytosis 8 RHINA SEPSIS plan cardio eval dec steroid per id ANTIBIOTIC Problems: Exam/Review of Systems Vital Signs Vitals Vital Signs Date Time Temp Pulse Resp B/P Pulse Ox O2 Delivery O2 Flow Rate FiO2 05/09/16 19:42 85 18 100 35 05/09/16 19:00 89/56 05/09/16 18:00 Mechanical Ventilator 05/09/16 16:00 98.5 05/05/16 07:44 8.0 Intake and Output 05/08/16 05/08/16 05/09/16 15:00 23:00 07:00 Intake Total 298.09 ml 536.24 ml 240 ml Output Total 280 ml 705 ml 285 ml Balance 18.09 ml -168.76 ml -45 ml Exam Neck: supple Respiratory: clear to auscultation, diminished breath sounds Cardiovascular: regular rate and rhythm Gastrointestinal: soft Extremities: normal pulses Results Result Diagram: 05/09/16 0400 05/09/16 0400 Results 24 hrs Laboratory Tests Test 05/09/16 04:00 05/09/16 11:30 Alanine Aminotransferase (ALT/SGPT) 23 Albumin 2.3 L Albumin/Globulin Ratio 0.74 Alkaline Phosphatase 37 L Anion Gap 15 Aspartate Amino Transf (AST/SGOT) 28 Basophils # 0.0 Basophils % 0.1 Blood Urea Nitrogen 72 H Calcium Level 8.0 L Carbon Dioxide Level 29 Chloride Level 114 H Creatinine 1.67 H Direct Bilirubin 0.00 Eosinophils # 0.0 Eosinophils % 0.0 Globulin 3.10 Glucose Level 141 Hematocrit 39.1 L Hemoglobin 11.9 L Indirect Bilirubin 0.1 Lymphocytes # 0.7 L Lymphocytes % 3.2 L Mean Corpuscular Hemoglobin 30.0 Mean Corpuscular Hemoglobin Concent 30.4 L Mean Corpuscular Volume 98.5 Mean Platelet Volume 11.8 H Monocytes # 0.7 Monocytes % 2.9 Neutrophils # 21.2 H Neutrophils % 92.3 H Nucleated Red Blood Cells # 0.0 Nucleated Red Blood Cells % 0.0 Platelet Count 120 #L Potassium Level 3.7 Red Blood Count 3.97 L Red Cell Distribution Width 14.1 Sodium Level 154 H Total Bilirubin 0.1 L Total Protein 5.4 L White Blood Count 22.9 H Arterial Blood HCO3 23.6 Arterial Blood Base Excess 2.7 Arterial Blood Oxygen Saturation 98.5 Zaid Test ACCEPTAB Arterial Blood Gas Puncture Site Right Radial Arterial Blood Carboxyhemoglobin 0.3 Arterial Blood Date Drawn 05/09/2016 11:38:00 AM Arterial Blood Methemoglobin 0.4 Arterial Blood pCO2 (Temp correct) 26.5 L Arterial Blood pH (Temp corrected) 7.567 *H Arterial Blood pO2 (Temp corrected) 111.8 H Blood Gas A-a O2 Differential 106.9 H Blood Gas Actual Respiration Rate 27 Blood Gas Critical Value Read Back Jaleesa MENJIVAR RN Blood Gas Low PEEP Setting 5.0 Blood Gas Modality VENT - SIMV Blood Gas Notified Time 05/09/2016 11:54:00 AM Blood Gas Notified Whom JLD Blood Gas Pressure Support 14 Blood Gas Respiration Rate 10.0 Blood Gas Specimen Source Blood arterial Blood Gas Temperature 37.0 Blood Gas Tidal Volume 500.0 FiO2 35.0 Oxyhemoglobin Percent 97.8 Total Hemoglobin 13.6 Medications Medications Current Medications Ondansetron HCl (Zofran Inj) 4 mg Q6H PRN IV NAUSEA AND/OR VOMITING; Start 05/01 at 20:30 Acetaminophen (Tylenol Tab) 650 mg Q6H PRN PO PAIN LEVEL 1-3 OR FEVER Last administered on 05/06/16 08:23; Admin Dose 650 MG; Start 05/01/16 at 20:30 Acetaminophen (Tylenol Supp) 650 mg Q6H PRN [place] PAIN LEVEL 1-3 OR FEVER; Start 05/01/16 at 20:30 Docusate Sodium (Colace) 100 mg Q12H PRN PO CONSTIPATION Last administered on 11:52; Admin Dose 100 MG; Start 05/01/16 at 20:30 Magnesium Hydroxide (Milk Of Mag) 30 ml DAILY PRN PO CONSTIPATION Last administered on 05/03/16 11:52; Admin Dose 30 ML; Start 05/01/16 at 20:30 Bisacodyl (Dulcolax) 5 mg DAILY PRN PO CONSTIPATION; Start 05/01/16 at 20:30 Bisacodyl (Dulcolax Supp) 10 mg DAILY PRN [place] CONSTIPATION; Start 05/01/16 at 20: 30 Sodium Biphosphate/ Sodium Phosphate (Fleet Enema) 133 ml DAILY PRN [place] CONSTIPATION; Start 05/01/16 at 20:30 Pantoprazole (Protonix Iv) 40 mg DAILY@06 IV Last administered on 05/09/16 05: 41; Admin Dose 40 MG; Start 05/02/16 at 06:00 Lisinopril (Zestril) 2.5 mg DAILY PO Last administered on 05/04/16 08:26; Admin Dose 2.5 MG; Start 05/03/16 at 09:00; Status Future Hold Metoprolol Succinate (Toprol Xl) 12.5 mg DAILY PO Last administered on 08:27; Admin Dose 12.5 MG; Start 05/03/16 at 14:00; Status Future Hold Tamsulosin HCl (Flomax) 0.4 mg HS PO Last administered on 05/09/16 20:31; Admin Dose 0.4 MG; Start 05/03/16 at 21:00 Aspirin (Aspirin) 325 mg DAILY PO Last administered on 05/09/16 08:08; Admin Dose 325 MG; Start 05/04/16 at 09:00 Methylprednisolone Sodium Succinate (Solu-Medrol) 20 mg DAILY IV Last administered on 05/09/16 08:09; Admin Dose 20 MG; Start 05/05/16 at 09:00 Lorazepam (Ativan) 2 mg Q2 PRN IV AGITATION Last administered on 05/09/16 12: 35; Admin Dose 2 MG; Start 05/05/16 at 18:00 Morphine Sulfate 2 mg 2 mg Q2H PRN IV PAIN Last administered on 05/09/16 01:35 ; Admin Dose 2 MG; Start 05/05/16 at 18:00 Dextrose/Sodium Chloride 1,000 ml @ 45 mls/hr [id number] IV Last administered on 05/09/16 20:32; Admin Dose 45 MLS/HR; Start 05/06/16 at 09:30 Piperacillin Sod/ Tazobactam Sod (Zosyn 2.25gm/ 50ml (Pmx)) 50 ml @ 100 mls/hr Q6 IVPB Last administered on 05/09/16 18:24; Admin Dose 100 MLS/HR; Start 01/12 at 12:00 IV Flush (NS 10 ml) 10 ml PRN PRN IV FLUSH LINE; Start 05/06/16 at 13:00 Enoxaparin Sodium 60 mg 60 mg DAILY SC Last administered on 05/09/16 08:10; Admin Dose 60 MG; Start 05/06/16 at 13:30 Norepinephrine 16 mg/Dextrose 500 ml @ 1.87 mls/hr TITRATE IV Last administered on 05/07/16 06:40; Admin Dose 16.83 MLS/HR; Start 05/06/16 at 16: 30 Fluconazole (Diflucan 200 Mg/ NS (Pmx)) 100 ml @ 100 mls/hr Q24H IVPB Last administered on 05/09/16 18:54; Admin Dose 100 MLS/HR; Start 05/07/16 at 18:00 Docusate Sodium (Colace Liquid Cup) 100 mg TID NGT Last administered on 20:31; Admin Dose 100 MG; Start 05/08/16 at 21:00 Polyethylene Glycol (Miralax) 17 gm DAILY GTB Last administered on 05/09/16 08 :09; Admin Dose 17 GM; Start 05/09/16 at 09:00 HOLLI LINDER MD May 09, 2016 20:40
[2016-05-10] VITALS (35 sets, daily range): BP systolic 92–137; BP diastolic 49–77; PULSE 65–100; RESP 14–32
[2016-05-10] MEDS: PIPER-TAZO 2.25 GM (PMX) 50 ML IVPB SCH ×5 (00:32→23:58)
[2016-05-10] MEDS: IPRATROPIUM (HFA) 12.9 GM INHALER INH SCH ×4 (01:30→20:20)
[2016-05-10] MEDS: ALBUTEROL HFA 8 GM INHALER INH SCH ×4 (01:30→20:20)
[2016-05-10 05:31] LABS: ADD SCAN DIFF NO
[2016-05-10] MEDS: PANTOPRAZOLE 40 MG INJ IV SCH (05:46)
[2016-05-10 05:50] LABS: ABNORMAL IP MESSAGE 1; HEMATOCRIT 39.4 % (42.0-52.0); HEMOGLOBIN 12.2 g/dl (14.0-18.0); MEAN CORPUSCULAR HEMOGLOBIN 30.5 pg (29.0-33.0); MEAN CORPUSCULAR VOLUME 98.5 fl (82.0-101.0); MEAN PLATELET VOLUME 13.1 fl (7.4-10.4); PLATELET COUNT 98 10^3/UL (140-415); WHITE BLOOD COUNT 27.8 10^3/ul (4.8-10.8)
[2016-05-10 06:03] LABS: POTASSIUM 4.1 mmol/L (3.5-5.1)
[2016-05-10 06:05] LABS: CREATININE 1.9 mg/dl (0.61-1.24)
[2016-05-10 06:06] LABS: CALCIUM 8.2 mg/dl (8.4-10.2); MAGNESIUM 2.6 mg/dl (1.7-2.5); PHOSPHORUS 3.6 mg/dl (2.5-4.9)
[2016-05-10] MEDS: ASPIRIN 325 MG TAB PO SCH (09:00)
[2016-05-10] MEDS: METHYLPREDNISOLONE 40 MG INJ IV SCH (09:02)
[2016-05-10] MEDS: POLYETHYLENE GLYCOL 17 GM PACKET GTB SCH (09:02)
[2016-05-10] MEDS: DOCUSATE SODIUM 10 MG/ML (10ML CUP) NGT SCH ×3 (09:02→21:13)
--- NOTE | 2016-05-10 09:50 | RADRPT ---
PROCEDURE: XR Chest. CLINICAL INDICATION: Respiratory failure TECHNIQUE: A single AP view of the chest was obtained. COMPARISON: Chest x-ray dated 05/07/2016 FINDINGS: The endotracheal tube tip is in the mid trachea. The letty is not well visualized. The tip of the enteric tube extends below the left diaphragm. There is a left upper extremity PICC line with tip in the mid SVC. There is a right subclavian dual chamber pacemaker. There are coarse bibasilar interstitial opacities. No pleural effusion or pneumothorax is seen. Th e cardiomediastinal silhouette is within normal limits for size. Calcifications are seen within the aortic arch. The osseous structures demonstrate senescent changes. IMPRESSION: 1. Coarse bilateral basilar interstitial opacities, suggesting chronic lung changes. Overall, no s ignificant interval change. 2. Aortic atherosclerosis. 3. Tubes and lines, as described above. RPTAT: HH .Kaitlin Vieira MD, MD Date Time Electronically viewed and signed by .Kaitlin Vieira MD, on 05/10/2016 09:49 .G/
[2016-05-10 10:36] LABS: LYMPHOCYTES # 0.8 10^3/ul (0.8-2.9); MONOCYTE # 0.6 10^3/ul (0.3-0.9); MYELOCYTES # 0.3; NEUTROPHIL # 25.6 10^3/ul (1.6-7.5)
--- NOTE | 2016-05-10 10:58 | PN ---
DATE: 05/10/2016 REASON FOR FOLLOWUP: Respiratory failure. The patient Arslan failed CPAP trial yesterday, lasting only a few minute this morning, remains largely somnolent. VITAL SIGNS: Temperature 98, pulse 74, blood pressure 128/52, O2 saturation 96% on 30% FIO2. HEENT: Orally intubated. Dry mucous membranes. Pupils are equal and reactive to light. CARDIAC: S1, S2, no added sounds or murmurs. CHEST: Diminished air entry bilaterally. ABDOMEN: Obese, soft, nontender, no guarding, no rebound. EXTREMITIES: No cyanosis, clubbing or edema. NEUROLOGIC: Generalized weakness. LABORATORY DATA: White count 27, hemoglobin 12.2, platelets of 98, BUN 75, creatinine 1.9, sodium 1 53. ABG is pending at time of this dictation. IMPRESSION AND PLAN: 1. Hypoxemic respiratory failure. 2. History of dementia. 3. Hyponatremia. 4. History of chronic obstructive pulmonary disease. PLAN: 1. Continue mechanical ventilation. At this point, it does not look like the patient will be safel y extubated. I did have an extensive discussion with the patient's next of kin at bedside yesterday . They are not grasping the severity of his illness and possible need for tracheostomy. We will jovel ve assistance from social work and palliative care if okay with primary care physician. 2. Continue tube feeding. 3. Continue DVT and GI prophylaxis. Dictated By: KAVON BARR/TRACY Conf#: [id number] DID#: [id number]
--- NOTE | 2016-05-10 11:35 | CONS ---
Date/Time of Note Date/Time of Note DATE: 05/10/16 TIME: 11:32 Assessment/Plan Assessment/Plan Chief Complaint/Hosp Course IMPRESSION: 1. Respiratory failure s/p intubation 2. 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 negative troponin x 3 this admit. s/p lexsican LVEF 22%/no ischemia/prior NM 3. 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 Possible cardiac arrhythmia-PAFL now rate controlled s/p IVP digoxin 5. History of asthma/chronic obstructive pulmonary disease. 6. Glaucoma. 7. History of bradycardia. 8. Hypotension-improved off pressors 9. Leukocytosis. 10. Altered mental state. 11. Fevers 12.ARF 14.Hemtauria 15.Hypernatremia Recc: -Tele -serial ecg's -Resume BB now that BP improved and hold ACEI given renal failure -Start hydralazine afterload reduction -Continue steroids/bronchodilators -Continue lovenox but follow for bleeding/hematuria -Follow volume status closely and renal fxn Problems: Consultation Date/Type/Reason Admit Date/Time May 01, 2016 at 20:18 Initial Consult Date 05/02/16 Type of Consultation: Cardiology Reason for Consultation Cardiomyopathy/CHF Referring Provider: HOLLI LINDER MD Exam/Review of Systems Vital Signs Vitals Vital Signs Date Time Temp Pulse Resp B/P Pulse Ox O2 Delivery O2 Flow Rate FiO2 05/10/16 10:15 66 19 98 30 05/10/16 06:00 128/52 Mechanical Ventilator 05/10/16 04:00 99.0 Intake and Output 05/09/16 05/09/16 05/10/16 15:00 23:00 07:00 Intake Total 460 ml 620 ml 700 ml Output Total 25 ml 1025 ml 230 ml Balance 435 ml -405 ml 470 ml Exam Review of Systems: CONSTITUTIONAL: No fevers, chills. PULMONARY: intubated CARDIOVASCULAR: No obvious chest pain/palpitations GASTROINTESTINAL: No nausea/vomiting. GENITOURINARY: No hematuria/dysuria. MUSCULOSKELETAL: No obvious myagias/arthalgias. PSYCHIATRIC: No documented depression. NEUROLOGIC: sedated Constitutional: other (sedated) Head: normocephalic ENMT: intubated Neck: jvd (9 cm water) Cardiovascular: irregular rhythm, other (decreased BS at bases/B), regular rate and rhythm Gastrointestinal: non-tender, soft Musculoskeletal: muscle tone Extremities: edema (none) Neurological: other (sedated) Results Result Diagram: 05/10/16 0400 05/10/16 0400 Results 24 hrs Laboratory Tests Test 05/10/16 04:00 Anion Gap 13 Band Neutrophils % 1.0 Blood Urea Nitrogen 75 H Calcium Level 8.2 L Carbon Dioxide Level 29 Chloride Level 115 H Creatinine 1.90 H Glucose Level 159 Hematocrit 39.4 L Hemoglobin 12.2 L Lymphocytes # 0.8 Lymphocytes % 3.0 L Magnesium Level 2.6 H Mean Corpuscular Hemoglobin 30.5 Mean Corpuscular Hemoglobin Concent 31.0 L Mean Corpuscular Volume 98.5 Mean Platelet Volume 13.1 H Metamyelocytes # 0.3 Metamyelocytes % 1.0 H Monocytes # 0.6 Monocytes % 2.0 Myelocytes # 0.3 Myelocytes % 1.0 H Neutrophils # 25.6 H Neutrophils % 92.0 H Phosphorus Level 3.6 Platelet Count 98 L Potassium Level 4.1 Red Blood Count 4.00 L Red Cell Distribution Width 14.0 Sodium Level 153 H White Blood Count 27.8 #H Medications Medications Current Medications Ondansetron HCl (Zofran Inj) 4 mg Q6H PRN IV NAUSEA AND/OR VOMITING; Start 05/01 at 20:30 Acetaminophen (Tylenol Tab) 650 mg Q6H PRN PO PAIN LEVEL 1-3 OR FEVER Last administered on 05/06/16 08:23; Admin Dose 650 MG; Start 05/01/16 at 20:30 Acetaminophen (Tylenol Supp) 650 mg Q6H PRN [place] PAIN LEVEL 1-3 OR FEVER; Start 05/01/16 at 20:30 Docusate Sodium (Colace) 100 mg Q12H PRN PO CONSTIPATION Last administered on 11:52; Admin Dose 100 MG; Start 05/01/16 at 20:30 Magnesium Hydroxide (Milk Of Mag) 30 ml DAILY PRN PO CONSTIPATION Last administered on 05/03/16 11:52; Admin Dose 30 ML; Start 05/01/16 at 20:30 Bisacodyl (Dulcolax) 5 mg DAILY PRN PO CONSTIPATION; Start 05/01/16 at 20:30 Bisacodyl (Dulcolax Supp) 10 mg DAILY PRN [place] CONSTIPATION; Start 05/01/16 at 20: 30 Sodium Biphosphate/ Sodium Phosphate (Fleet Enema) 133 ml DAILY PRN [place] CONSTIPATION; Start 05/01/16 at 20:30 Pantoprazole (Protonix Iv) 40 mg DAILY@06 IV Last administered on 05/10/16 05: 46; Admin Dose 40 MG; Start 05/02/16 at 06:00 Lisinopril (Zestril) 2.5 mg DAILY PO Last administered on 05/04/16 08:26; Admin Dose 2.5 MG; Start 05/03/16 at 09:00; Status Future Hold Metoprolol Succinate (Toprol Xl) 12.5 mg DAILY PO Last administered on 08:27; Admin Dose 12.5 MG; Start 05/03/16 at 14:00; Status Future Hold Tamsulosin HCl (Flomax) 0.4 mg HS PO Last administered on 05/09/16 20:31; Admin Dose 0.4 MG; Start 05/03/16 at 21:00 Aspirin (Aspirin) 325 mg DAILY PO Last administered on 05/09/16 08:08; Admin Dose 325 MG; Start 05/04/16 at 09:00 Methylprednisolone Sodium Succinate (Solu-Medrol) 20 mg DAILY IV Last administered on 05/09/16 08:09; Admin Dose 20 MG; Start 05/05/16 at 09:00 Lorazepam (Ativan) 2 mg Q2 PRN IV AGITATION Last administered on 05/09/16 12: 35; Admin Dose 2 MG; Start 05/05/16 at 18:00 Morphine Sulfate 2 mg 2 mg Q2H PRN IV PAIN Last administered on 05/09/16 01:35 ; Admin Dose 2 MG; Start 05/05/16 at 18:00 Dextrose/Sodium Chloride 1,000 ml @ 45 mls/hr [id number] IV Last administered on 05/09/16 20:32; Admin Dose 45 MLS/HR; Start 05/06/16 at 09:30 Piperacillin Sod/ Tazobactam Sod (Zosyn 2.25gm/ 50ml (Pmx)) 50 ml @ 100 mls/hr Q6 IVPB Last administered on 05/10/16 05:44; Admin Dose 100 MLS/HR; Start 01/12 at 12:00 IV Flush (NS 10 ml) 10 ml PRN PRN IV FLUSH LINE; Start 05/06/16 at 13:00 Enoxaparin Sodium 60 mg 60 mg DAILY SC Last administered on 05/09/16 08:10; Admin Dose 60 MG; Start 05/06/16 at 13:30 Norepinephrine 16 mg/Dextrose 500 ml @ 1.87 mls/hr TITRATE IV Last administered on 05/07/16 06:40; Admin Dose 16.83 MLS/HR; Start 05/06/16 at 16: 30 Fluconazole (Diflucan 200 Mg/ NS (Pmx)) 100 ml @ 100 mls/hr Q24H IVPB Last administered on 05/09/16 18:54; Admin Dose 100 MLS/HR; Start 05/07/16 at 18:00 Docusate Sodium (Colace Liquid Cup) 100 mg TID NGT Last administered on 20:31; Admin Dose 100 MG; Start 05/08/16 at 21:00 Polyethylene Glycol (Miralax) 17 gm DAILY GTB Last administered on 05/09/16 08 :09; Admin Dose 17 GM; Start 05/09/16 at 09:00 JAYA GORE May 10, 2016 11:35
--- NOTE | 2016-05-10 12:02 | CONS ---
Date/Time of Note Date/Time of Note DATE: 05/10/16 TIME: 11:59 Assessment/Plan Assessment/Plan Chief Complaint/Hosp Course SUBJECTIVE: No acute changes overnight. The patient is lying comfortably in bed. No fevers. INDWELLINGS: Endotracheal tube, NG tube, Alfonso catheter, PICC line placed on . ANTIMICROBIALS: 1. Fluconazole. 2. Zosyn. PHYSICAL EXAMINATION: GENERAL: This is a chronically ill-appearing, elderly man who is lying comfortably in bed. HEENT: Head atraumatic, normocephalic. Sclerae anicteric. Buccal mucosa dry. NECK: Supple, trachea midline. CHEST: Rise symmetrical. Breath sounds diminished. HEART: S1, S2. ABDOMEN: Soft, bowel tones present. EXTREMITIES: Without cyanosis. ASSESSMENT: 1. Acute hypoxemic respiratory failure. 2. Possible aspiration pneumonia. 3. Acute renal failure. 4. Chronic obstructive pulmonary disease exacerbation. 5. Hypertension by history. 6. History of benign prostatic hypertrophy. 7. Leukocytosis==> patient remains on steroids==> tapering. PLAN: Patient remains hemodynamically stable, continue abx, start Doxycycline for Staph that grows in his sputum. DW staff Problems: Consultation Date/Type/Reason Admit Date/Time May 01, 2016 at 20:18 Initial Consult Date 05/05/16 Type of Consultation: ID Referring Provider: HOLLI LINDER MD Exam/Review of Systems Vital Signs Vitals Vital Signs Date Time Temp Pulse Resp B/P Pulse Ox O2 Delivery O2 Flow Rate FiO2 05/10/16 10:15 66 19 98 30 05/10/16 06:00 128/52 Mechanical Ventilator 05/10/16 04:00 99.0 Intake and Output 05/09/16 05/09/16 05/10/16 15:00 23:00 07:00 Intake Total 460 ml 620 ml 700 ml Output Total 25 ml 1025 ml 230 ml Balance 435 ml -405 ml 470 ml Results Result Diagram: 05/10/160 05/10/16 0400 Results 24 hrs Laboratory Tests Test 05/10/16 04:00 Anion Gap 13 Band Neutrophils % 1.0 Blood Urea Nitrogen 75 H Calcium Level 8.2 L Carbon Dioxide Level 29 Chloride Level 115 H Creatinine 1.90 H Glucose Level 159 Hematocrit 39.4 L Hemoglobin 12.2 L Lymphocytes # 0.8 Lymphocytes % 3.0 L Magnesium Level 2.6 H Mean Corpuscular Hemoglobin 30.5 Mean Corpuscular Hemoglobin Concent 31.0 L Mean Corpuscular Volume 98.5 Mean Platelet Volume 13.1 H Metamyelocytes # 0.3 Metamyelocytes % 1.0 H Monocytes # 0.6 Monocytes % 2.0 Myelocytes # 0.3 Myelocytes % 1.0 H Neutrophils # 25.6 H Neutrophils % 92.0 H Phosphorus Level 3.6 Platelet Count 98 L Potassium Level 4.1 Red Blood Count 4.00 L Red Cell Distribution Width 14.0 Sodium Level 153 H White Blood Count 27.8 #H Medications Medications Current Medications Ondansetron HCl (Zofran Inj) 4 mg Q6H PRN IV NAUSEA AND/OR VOMITING; Start 05/01 at 20:30 Acetaminophen (Tylenol Tab) 650 mg Q6H PRN PO PAIN LEVEL 1-3 OR FEVER Last administered on 05/06/16 08:23; Admin Dose 650 MG; Start 05/01/16 at 20:30 Acetaminophen (Tylenol Supp) 650 mg Q6H PRN NE PAIN LEVEL 1-3 OR FEVER; Start 05/01/16 at 20:30 Docusate Sodium (Colace) 100 mg Q12H PRN PO CONSTIPATION Last administered on 11:52; Admin Dose 100 MG; Start 05/01/16 at 20:30 Magnesium Hydroxide (Milk Of Mag) 30 ml DAILY PRN PO CONSTIPATION Last administered on 05/03/16 11:52; Admin Dose 30 ML; Start 05/01/16 at 20:30 Bisacodyl (Dulcolax) 5 mg DAILY PRN PO CONSTIPATION; Start 05/01/16 at 20:30 Bisacodyl (Dulcolax Supp) 10 mg DAILY PRN [place] CONSTIPATION; Start 05/01/16 at 20: 30 Sodium Biphosphate/ Sodium Phosphate (Fleet Enema) 133 ml DAILY PRN [place] CONSTIPATION; Start 05/01/16 at 20:30 Pantoprazole (Protonix Iv) 40 mg DAILY@06 IV Last administered on 05/10/16 05: 46; Admin Dose 40 MG; Start 05/02/16 at 06:00 Tamsulosin HCl (Flomax) 0.4 mg HS PO Last administered on 05/09/16 20:31; Admin Dose 0.4 MG; Start 05/03/16 at 21:00 Aspirin (Aspirin) 325 mg DAILY PO Last administered on 05/09/16 08:08; Admin Dose 325 MG; Start 05/04/16 at 09:00; Status Future Hold Methylprednisolone Sodium Succinate (Solu-Medrol) 20 mg DAILY IV Last administered on 05/09/16 08:09; Admin Dose 20 MG; Start 05/05/16 at 09:00 Lorazepam (Ativan) 2 mg Q2 PRN IV AGITATION Last administered on 05/09/16 12: 35; Admin Dose 2 MG; Start 05/05/16 at 18:00 Morphine Sulfate 2 mg 2 mg Q2H PRN IV PAIN Last administered on 05/09/16 01:35 ; Admin Dose 2 MG; Start 05/05/16 at 18:00 Dextrose/Sodium Chloride 1,000 ml @ 45 mls/hr [id number] IV Last administered on 05/09/16 20:32; Admin Dose 45 MLS/HR; Start 05/06/16 at 09:30 Piperacillin Sod/ Tazobactam Sod (Zosyn 2.25gm/ 50ml (Pmx)) 50 ml @ 100 mls/hr Q6 IVPB Last administered on 05/10/16 05:44; Admin Dose 100 MLS/HR; Start 01/12 at 12:00 IV Flush (NS 10 ml) 10 ml PRN PRN IV FLUSH LINE; Start 05/06/16 at 13:00 Enoxaparin Sodium 60 mg 60 mg DAILY SC Last administered on 05/09/16 08:10; Admin Dose 60 MG; Start 05/06/16 at 13:30 Norepinephrine 16 mg/Dextrose 500 ml @ 1.87 mls/hr TITRATE IV Last administered on 05/07/16 06:40; Admin Dose 16.83 MLS/HR; Start 05/06/16 at 16: 30 Fluconazole (Diflucan 200 Mg/ NS (Pmx)) 100 ml @ 100 mls/hr Q24H IVPB Last administered on 05/09/16 18:54; Admin Dose 100 MLS/HR; Start 05/07/16 at 18:00 Docusate Sodium (Colace Liquid Cup) 100 mg TID NGT Last administered on 3/14/ 17at 20:31; Admin Dose 100 MG; Start 05/08/16 at 21:00 Polyethylene Glycol (Miralax) 17 gm DAILY GTB Last administered on 05/09/16t 08 :09; Admin Dose 17 GM; Start 05/09/16 at 09:00 Carvedilol (Coreg) 3.125 mg BID NGT ; Start 05/10/16 at 21:00 Hydralazine HCl (Apresoline) 10 mg Q8 PO ; Start 05/10/16 at 14:00 JOSE G CUNNINGHAM NP May 10, 2016 12:02
[2016-05-10] MEDS: ENOXAPARIN 60 MG/0.6 ML SYG SC SCH (13:01)
[2016-05-10] MEDS: FLUCONAZOLE 200 MG/NS (PMX) 100 ML IVPB SCH (19:52)
--- NOTE | 2016-05-10 20:11 | PN ---
Date/Time of Note Date/Time of Note DATE: 05/10/16 TIME: 20:10 Assessment/Plan VTE Prophylaxis VTE Prophylaxis Intervention: other Lines/Catheters IV Catheter Type (from Nrs): Saline Lock Urinary Cath still in place: Yes Reason Cath still needed: other (indicate) Assessment/Plan Chief Complaint/Hosp Course IMPRESSION: The patient has 1. ACUTE RES FAILURE 2. hypernatremia 3. Hypertension. 4. anxiety 5. PACEMAKER HX 6 low ef 7 leucocytosis 8 RHINA SEPSIS plan cardio eval dec steroid per id ANTIBIOTIC Problems: Subjective 24 Hr Interval Summary Subjective hx not possible: other (on vent,d/w sons) Exam/Review of Systems Vital Signs Vitals Vital Signs Date Time Temp Pulse Resp B/P Pulse Ox O2 Delivery O2 Flow Rate FiO2 05/10/16 19:00 100 18 118/77 97 05/10/16 18:00 Mechanical Ventilator 05/10/16 17:14 30 05/10/16 16:00 98.5 Intake and Output 05/09/16 05/09/16 05/10/16 15:00 23:00 07:00 Intake Total 460 ml 620 ml 700 ml Output Total 25 ml 1025 ml 230 ml Balance 435 ml -405 ml 470 ml Exam Respiratory: diminished breath sounds Cardiovascular: regular rate and rhythm Gastrointestinal: bowel sounds (+), soft Extremities: edema (+) Results Result Diagram: 05/10/16 0400 05/10/16 0400 Results 24 hrs Laboratory Tests Test 05/10/16 04:00 Anion Gap 13 Band Neutrophils % 1.0 Blood Urea Nitrogen 75 H Calcium Level 8.2 L Carbon Dioxide Level 29 Chloride Level 115 H Creatinine 1.90 H Glucose Level 159 Hematocrit 39.4 L Hemoglobin 12.2 L Lymphocytes # 0.8 Lymphocytes % 3.0 L Magnesium Level 2.6 H Mean Corpuscular Hemoglobin 30.5 Mean Corpuscular Hemoglobin Concent 31.0 L Mean Corpuscular Volume 98.5 Mean Platelet Volume 13.1 H Metamyelocytes # 0.3 Metamyelocytes % 1.0 H Monocytes # 0.6 Monocytes % 2.0 Myelocytes # 0.3 Myelocytes % 1.0 H Neutrophils # 25.6 H Neutrophils % 92.0 H Phosphorus Level 3.6 Platelet Count 98 L Potassium Level 4.1 Red Blood Count 4.00 L Red Cell Distribution Width 14.0 Sodium Level 153 H White Blood Count 27.8 #H Medications Medications Current Medications Ondansetron HCl (Zofran Inj) 4 mg Q6H PRN IV NAUSEA AND/OR VOMITING; Start 05/01 at 20:30 Acetaminophen (Tylenol Tab) 650 mg Q6H PRN PO PAIN LEVEL 1-3 OR FEVER Last administered on 05/06/16 08:23; Admin Dose 650 MG; Start 05/01/16 at 20:30 Acetaminophen (Tylenol Supp) 650 mg Q6H PRN [place] PAIN LEVEL 1-3 OR FEVER; Start 05/01/16 at 20:30 Docusate Sodium (Colace) 100 mg Q12H PRN PO CONSTIPATION Last administered on 11:52; Admin Dose 100 MG; Start 05/01/16 at 20:30 Magnesium Hydroxide (Milk Of Mag) 30 ml DAILY PRN PO CONSTIPATION Last administered on 05/03/16 11:52; Admin Dose 30 ML; Start 05/01/16 at 20:30 Bisacodyl (Dulcolax) 5 mg DAILY PRN PO CONSTIPATION; Start 05/01/16 at 20:30 Bisacodyl (Dulcolax Supp) 10 mg DAILY PRN [place] CONSTIPATION; Start 05/01/16 at 20: 30 Sodium Biphosphate/ Sodium Phosphate (Fleet Enema) 133 ml DAILY PRN [place] CONSTIPATION; Start 05/01/16 at 20:30 Pantoprazole (Protonix Iv) 40 mg DAILY@06 IV Last administered on 05/10/16 05: 46; Admin Dose 40 MG; Start 05/02/16 at 06:00 Tamsulosin HCl (Flomax) 0.4 mg HS PO Last administered on 05/09/16 20:31; Admin Dose 0.4 MG; Start 05/03/16 at 21:00 Aspirin (Aspirin) 325 mg DAILY PO Last administered on 05/09/16 08:08; Admin Dose 325 MG; Start 05/04/16 at 09:00; Status Future Hold Methylprednisolone Sodium Succinate (Solu-Medrol) 20 mg DAILY IV Last administered on 05/10/16 09:02; Admin Dose 20 MG; Start 05/05/16 at 09:00 Lorazepam (Ativan) 2 mg Q2 PRN IV AGITATION Last administered on 05/09/16 12: 35; Admin Dose 2 MG; Start 05/05/16 at 18:00 Morphine Sulfate 2 mg 2 mg Q2H PRN IV PAIN Last administered on 05/09/16 01:35 ; Admin Dose 2 MG; Start 05/05/16 at 18:00 Dextrose/Sodium Chloride 1,000 ml @ 45 mls/hr [id number] IV Last administered on 05/09/16 20:32; Admin Dose 45 MLS/HR; Start 05/06/16 at 09:30 Piperacillin Sod/ Tazobactam Sod (Zosyn 2.25gm/ 50ml (Pmx)) 50 ml @ 100 mls/hr Q6 IVPB Last administered on 05/10/16 18:04; Admin Dose 100 MLS/HR; Start 01/12 at 12:00 IV Flush (NS 10 ml) 10 ml PRN PRN IV FLUSH LINE; Start 05/06/16 at 13:00 Enoxaparin Sodium 60 mg 60 mg DAILY SC Last administered on 05/10/16 13:01; Admin Dose 60 MG; Start 05/06/16 at 13:30 Norepinephrine 16 mg/Dextrose 500 ml @ 1.87 mls/hr TITRATE IV Last administered on 05/07/16 06:40; Admin Dose 16.83 MLS/HR; Start 05/06/16 at 16: 30 Fluconazole (Diflucan 200 Mg/ NS (Pmx)) 100 ml @ 100 mls/hr Q24H IVPB Last administered on 05/10/16 19:52; Admin Dose 100 MLS/HR; Start 05/07/16 at 18:00 Docusate Sodium (Colace Liquid Cup) 100 mg TID NGT Last administered on 13:03; Admin Dose 100 MG; Start 05/08/16 at 21:00 Polyethylene Glycol (Miralax) 17 gm DAILY GTB Last administered on 05/10/16 09 :02; Admin Dose 17 GM; Start 05/09/16 at 09:00 Carvedilol (Coreg) 3.125 mg BID NGT ; Start 05/10/16 at 21:00 Hydralazine HCl (Apresoline) 10 mg Q8 PO Last administered on 05/10/16 14:15; Admin Dose 10 MG; Start 05/10/16 at 14:00 Doxycycline Hyclate (Vibramycin) 100 mg BID PO ; Start 05/10/16 at 21:00 HOLLI LINDER MD May 10, 2016 20:11
[2016-05-10] MEDS: TAMSULOSIN (SR) 0.4 MG CAP PO SCH (21:13)
[2016-05-10] MEDS: DOXYCYCLINE 100 MG TAB PO SCH (21:14)
[2016-05-10] MEDS: DEXTROSE 5%-0.45% NACL 1,000 ML IV SCH (22:49)
[2016-05-11] VITALS (42 sets, daily range): BP systolic 77–127; BP diastolic 46–74; PULSE 65–89; RESP 16–29
[2016-05-11] MEDS: IPRATROPIUM (HFA) 12.9 GM INHALER INH SCH ×3 (01:25→14:00)
[2016-05-11] MEDS: ALBUTEROL HFA 8 GM INHALER INH SCH ×3 (01:25→14:00)
[2016-05-11 04:51] LABS: ADD SCAN DIFF NO
[2016-05-11 05:06] LABS: POTASSIUM 4.2 mmol/L (3.5-5.1)
[2016-05-11 05:08] LABS: CREATININE 1.37 mg/dl (0.61-1.24)
[2016-05-11 05:09] LABS: CALCIUM 8.1 mg/dl (8.4-10.2); MAGNESIUM 2.3 mg/dl (1.7-2.5); PHOSPHORUS 2.7 mg/dl (2.5-4.9)
[2016-05-11 05:31] LABS: ABNORMAL IP MESSAGE 1; HEMATOCRIT 39.8 % (42.0-52.0); HEMOGLOBIN 12.3 g/dl (14.0-18.0); MEAN CORPUSCULAR HEMOGLOBIN 30.6 pg (29.0-33.0); MEAN CORPUSCULAR HGB CONC 30.9 g/dl (32.0-37.0); MEAN PLATELET VOLUME 11.9 fl (7.4-10.4); PLATELET COUNT 112 10^3/UL (140-415); RED BLOOD COUNT 4.02 10^6/ul (4.70-6.10); RED CELL DISTRIBUTION WIDTH 14.4 % (11.5-14.5); WHITE BLOOD COUNT 35.3 10^3/ul (4.8-10.8)
[2016-05-11] MEDS: PANTOPRAZOLE 40 MG INJ IV SCH (06:38)
[2016-05-11] MEDS: PIPER-TAZO 2.25 GM (PMX) 50 ML IVPB SCH ×3 (06:38→17:55)
--- NOTE | 2016-05-11 09:25 | RADRPT ---
PROCEDURE: XR Chest. CLINICAL INDICATION: Shortness of breath. TECHNIQUE: Single frontal view. COMPARISON: 05/10/2016. FINDINGS: The endotracheal tube, nasogastric tube, left arm PICC line, and right-sided dual lead permanent pac emaker remain in position. There is mild interstitial disease at the lung bases, unchanged. The lungs are otherwise clear. Th e heart size is normal. There is calcification in the aorta consistent with atherosclerosis. There is no pleural effusion. There is no pneumothorax. IMPRESSION: 1. No change from 05/10/2016. RPTAT: QQ .Henrik Reyna MD, MD Date Time Electronically viewed and signed by .Henrik Reyna MD, MD on 05/11/2016 09:25 .R/
--- NOTE | 2016-05-11 09:37 | CONS ---
Date/Time of Note Date/Time of Note DATE: 05/11/16 TIME: 09:26 Assessment/Plan Assessment/Plan Additional Assessment/Plan Ventilator settings; SIMV of 8, tidal volume 500, pressure support of 14, 30% FiO2, 5 of PEEP. Chest x-ray was reviewed from yesterday which is essentially unremarkable. There is Seen in right chest wall. Assessment recommendations; 1. Patient admitted for COPD exacerbation and acute respiratory failure with possibly some element of bibasilar pneumonia. Clinically and radiologically improved. 2. History of BPH. 3. History of CHF., Clinically compensated. 4. Stable hypertension. 5. History of cardiac arrhythmia. 6. Improving renal function. With normalization of serum creatinine. 7. Persistent leukocytosis. Continue current supportive care. Switch the patient to CPAP mode. Blood gas in 30 minutes. Decrease pressure support of 12. Once ABGs done I will reviewed and assessed the patient for possible weaning from ventilator. Meanwhile continue current treatment. Consultation Date/Type/Reason Admit Date/Time May 01, 2016 at 20:18 Initial Consult Date 05/05/16 Type of Consultation: Pulmonary/critical care Referring Provider: HOLLI LINDER MD 24 HR Interval Summary Free Text/Dictation Patient's condition remains critical. Still requiring full ventilator support. Patient however is not always completely awake and alert and follows commands. Has remained hemodynamically stable. General exam; elderly male, orally intubated, awake and alert. Currently in no distress. Exam/Review of Systems Vital Signs Vitals Vital Signs Date Time Temp Pulse Resp B/P Pulse Ox O2 Delivery O2 Flow Rate FiO2 05/11/16 07:42 85 19 98 30 05/11/16 07:00 108/53 Mechanical Ventilator 05/11/16 04:00 98.2 Intake and Output 05/10/16 05/10/16 05/11/16 15:00 23:00 07:00 Intake Total 830 ml 690 ml 930 ml Output Total 305 ml 330 ml 370 ml Balance 525 ml 360 ml 560 ml Exam H EENT examination; supple neck, no JVD. No lymphadenopathy. Midline trachea. There are bilateral corneal opacities present. Orally intubated. No neck masses. No thyromegaly. Chest examination; diminished but clear breath sounds bilaterally. S1-S2 audible, no murmurs. Regular rhythm. Abdomen examination; soft, nondistended. No organomegaly. Bowel sounds audible. Extremity examination; no peripheral edema. Pulses 1+ bilaterally. WEATHERCASTER exam is; no focal deficit. Results Result Diagram: 05/11/16 0400 05/11/16 0400 Results 24 hrs Laboratory Tests Test 05/11/16 04:00 Anion Gap 13 Blood Urea Nitrogen 65 H Calcium Level 8.1 L Carbon Dioxide Level 29 Chloride Level 116 H Creatinine 1.37 H Glucose Level 173 Hematocrit 39.8 L Hemoglobin 12.3 L Magnesium Level 2.3 Mean Corpuscular Hemoglobin 30.6 Mean Corpuscular Hemoglobin Concent 30.9 L Mean Corpuscular Volume 99.0 Mean Platelet Volume 11.9 H Phosphorus Level 2.7 Platelet Count 112 L Potassium Level 4.2 Red Blood Count 4.02 L Red Cell Distribution Width 14.4 Sodium Level 154 H White Blood Count 35.3 #H Medications Medications Current Medications Ondansetron HCl (Zofran Inj) 4 mg Q6H PRN IV NAUSEA AND/OR VOMITING; Start 05/01 at 20:30 Acetaminophen (Tylenol Tab) 650 mg Q6H PRN PO PAIN LEVEL 1-3 OR FEVER Last administered on 05/06/16 08:23; Admin Dose 650 MG; Start 05/01/16 at 20:30 Acetaminophen (Tylenol Supp) 650 mg Q6H PRN [place] PAIN LEVEL 1-3 OR FEVER; Start 05/01/16 at 20:30 Docusate Sodium (Colace) 100 mg Q12H PRN PO CONSTIPATION Last administered on 11:52; Admin Dose 100 MG; Start 05/01/16 at 20:30 Magnesium Hydroxide (Milk Of Mag) 30 ml DAILY PRN PO CONSTIPATION Last administered on 05/03/16 11:52; Admin Dose 30 ML; Start 05/01/16 at 20:30 Bisacodyl (Dulcolax) 5 mg DAILY PRN PO CONSTIPATION; Start 05/01/16 at 20:30 Bisacodyl (Dulcolax Supp) 10 mg DAILY PRN [place] CONSTIPATION; Start 05/01/16 at 20: 30 Sodium Biphosphate/ Sodium Phosphate (Fleet Enema) 133 ml DAILY PRN [place] CONSTIPATION; Start 05/01/16 at 20:30 Pantoprazole (Protonix Iv) 40 mg DAILY@06 IV Last administered on 05/11/16 06: 38; Admin Dose 40 MG; Start 05/02/16 at 06:00 Tamsulosin HCl (Flomax) 0.4 mg HS PO Last administered on 05/10/16 21:13; Admin Dose 0.4 MG; Start 05/03/16 at 21:00 Aspirin (Aspirin) 325 mg DAILY PO Last administered on 05/09/16 08:08; Admin Dose 325 MG; Start 05/04/16 at 09:00; Status Future Hold Methylprednisolone Sodium Succinate (Solu-Medrol) 20 mg DAILY IV Last administered on 05/10/16 09:02; Admin Dose 20 MG; Start 05/05/16 at 09:00 Lorazepam (Ativan) 2 mg Q2 PRN IV AGITATION Last administered on 05/09/16 12: 35; Admin Dose 2 MG; Start 05/05/16 at 18:00 Morphine Sulfate 2 mg 2 mg Q2H PRN IV PAIN Last administered on 05/09/16 01:35 ; Admin Dose 2 MG; Start 05/05/16 at 18:00 Dextrose/Sodium Chloride 1,000 ml @ 45 mls/hr [id number] IV Last administered on 05/10/16 22:49; Admin Dose 45 MLS/HR; Start 05/06/16 at 09:30 Piperacillin Sod/ Tazobactam Sod (Zosyn 2.25gm/ 50ml (Pmx)) 50 ml @ 100 mls/hr Q6 IVPB Last administered on 05/11/16 06:38; Admin Dose 100 MLS/HR; Start 01/12 at 12:00 IV Flush (NS 10 ml) 10 ml PRN PRN IV FLUSH LINE; Start 05/06/16 at 13:00 Enoxaparin Sodium 60 mg 60 mg DAILY SC Last administered on 05/10/16 13:01; Admin Dose 60 MG; Start 05/06/16 at 13:30 Norepinephrine 16 mg/Dextrose 500 ml @ 1.87 mls/hr TITRATE IV Last administered on 05/07/16 06:40; Admin Dose 16.83 MLS/HR; Start 05/06/16 at 16: 30 Fluconazole (Diflucan 200 Mg/ NS (Pmx)) 100 ml @ 100 mls/hr Q24H IVPB Last administered on 05/10/16 19:52; Admin Dose 100 MLS/HR; Start 05/07/16 at 18:00 Docusate Sodium (Colace Liquid Cup) 100 mg TID NGT Last administered on 21:13; Admin Dose 100 MG; Start 05/08/16 at 21:00 Polyethylene Glycol (Miralax) 17 gm DAILY GTB Last administered on 05/10/16 09 :02; Admin Dose 17 GM; Start 05/09/16 at 09:00 Carvedilol (Coreg) 3.125 mg BID NGT Last administered on 05/10/16 21:13; Admin Dose 3.125 MG; Start 05/10/16 at 21:00 Hydralazine HCl (Apresoline) 10 mg Q8 PO Last administered on 05/10/16 21:14; Admin Dose 10 MG; Start 05/10/16 at 14:00 Doxycycline Hyclate (Vibramycin) 100 mg BID PO Last administered on 05/10/16 21:14; Admin Dose 100 MG; Start 05/10/16 at 21:00 GERALDINE CUNNINGHAM May 11, 2016 09:36
[2016-05-11] MEDS: ENOXAPARIN 60 MG/0.6 ML SYG SC SCH (10:02)
[2016-05-11] MEDS: DOXYCYCLINE 100 MG TAB PO SCH ×2 (10:02→21:00)
[2016-05-11] MEDS: METHYLPREDNISOLONE 40 MG INJ IV SCH (10:02)
[2016-05-11] MEDS: DOCUSATE SODIUM 10 MG/ML (10ML CUP) NGT SCH ×3 (10:02→21:00)
[2016-05-11] MEDS: POLYETHYLENE GLYCOL 17 GM PACKET GTB SCH (10:03)
[2016-05-11 10:08] LABS: MONOCYTE # 1.1 10^3/ul (0.3-0.9); NEUTROPHIL # 34.2 10^3/ul (1.6-7.5)
[2016-05-11 10:15] LABS: AADO2 Arterial 90.1 mmHg (7.0-24.0); Allen Test ACCEPTAB; Arterial Base Excess 2.9 mmol/L (-3.0-3); Arterial COHb 0.3 % (0.0-3.0); Arterial Fraction of Oxyhgb 95.9 % (93.0-99.0); Arterial HCO3 25.7 mmol/L (22.0-26.0); Arterial MetHb 0.4 % (0.0-1.5); Arterial Total Hemglobin 13.4 g/dl (12.0-18.0); Blood Gas PS 12; MODE VENT - CPAP
--- NOTE | 2016-05-11 10:43 | CONS ---
Date/Time of Note Date/Time of Note DATE: 05/11/16 TIME: 10:41 Assessment/Plan Assessment/Plan Chief Complaint/Hosp Course IMPRESSION: 1. Respiratory failure s/p extubation 2. 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 negative troponin x 3 this admit. s/p lexsican LVEF 22%/no ischemia/prior DC 3. 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 Possible cardiac arrhythmia-PAFL now rate controlled s/p IVP digoxin 5. History of asthma/chronic obstructive pulmonary disease. 6. Glaucoma. 7. History of bradycardia. 8. Hypotension-improved off pressors 9. Leukocytosis. 10. Altered mental state. 11. Fevers 12.ARF 14.Hemtauria 15.Hypernatremia Recc: -Tele -serial ecg's -Continue BB and hydralazine afterload reduction as tolerated -Continue steroids/bronchodilators -Continue lovenox but follow for bleeding/hematuria -Follow volume status closely and renal fxn Problems: Consultation Date/Type/Reason Admit Date/Time May 01, 2016 at 20:18 Initial Consult Date 05/02/16 Type of Consultation: Cardiology Reason for Consultation CHF Referring Provider: HOLLI LINDER MD Exam/Review of Systems Vital Signs Vitals Vital Signs Date Time Temp Pulse Resp B/P Pulse Ox O2 Delivery O2 Flow Rate FiO2 05/11/16 10:00 74 27 98/56 98 Mechanical Ventilator 05/11/16 09:39 30 05/11/16 08:00 99.7 Intake and Output 05/10/16 05/10/16 05/11/16 15:00 23:00 07:00 Intake Total 830 ml 690 ml 930 ml Output Total 305 ml 330 ml 370 ml Balance 525 ml 360 ml 560 ml Exam Review of Systems: CONSTITUTIONAL: No fevers, chills. PULMONARY: s/p extubation CARDIOVASCULAR: No chest pain/palpitations GASTROINTESTINAL: No nausea/vomiting. GENITOURINARY: No hematuria/dysuria. MUSCULOSKELETAL: No myagias/arthalgias. PSYCHIATRIC: The patient denies depression. NEUROLOGIC: No weakness Constitutional: other (sleeping) Head: normocephalic ENMT: mucosa pink and moist Neck: jvd (9 cm water), supple Respiratory: diminished breath sounds Cardiovascular: regular rate and rhythm Gastrointestinal: non-tender, soft Musculoskeletal: muscle tone (normal) Extremities: edema (none) Neurological: lethargic, other (No focal deficits) Results Result Diagram: 05/11/16 0400 05/11/16 0400 Results 24 hrs Laboratory Tests Test 05/11/16 04:00 05/11/16 10:00 Anion Gap 13 Blood Urea Nitrogen 65 H Calcium Level 8.1 L Carbon Dioxide Level 29 Chloride Level 116 H Creatinine 1.37 H Glucose Level 173 Hematocrit 39.8 L Hemoglobin 12.3 L Magnesium Level 2.3 Mean Corpuscular Hemoglobin 30.6 Mean Corpuscular Hemoglobin Concent 30.9 L Mean Corpuscular Volume 99.0 Mean Platelet Volume 11.9 H Monocytes # 1.1 H Monocytes % 3.0 Neutrophils # 34.2 H Neutrophils % 97.0 H Phosphorus Level 2.7 Platelet Count 112 L Potassium Level 4.2 Red Blood Count 4.02 L Red Cell Distribution Width 14.4 Sodium Level 154 H White Blood Count 35.3 #H Arterial Blood HCO3 25.7 Arterial Blood Base Excess 2.9 Arterial Blood Oxygen Saturation 96.6 Zaid Test ACCEPTAB Arterial Blood Gas Puncture Site Right Radial Arterial Blood Carboxyhemoglobin 0.3 Arterial Blood Date Drawn 05/11/2016 10:05:27 AM Arterial Blood Methemoglobin 0.4 Arterial Blood pCO2 (Temp correct) 33.8 L Arterial Blood pH (Temp corrected) 7.499 H Arterial Blood pO2 (Temp corrected) 84.1 Blood Gas A-a O2 Differential 90.1 H Blood Gas Actual Respiration Rate 28 Blood Gas Low PEEP Setting 5.0 Blood Gas Modality VENT - CPAP Blood Gas Notified Time 05/11/2016 10:15:05 AM Blood Gas Notified Whom JLD Blood Gas Pressure Support 12 Blood Gas Specimen Source Blood arterial Blood Gas Temperature 37.0 FiO2 30.0 Oxyhemoglobin Percent 95.9 Total Hemoglobin 13.4 Medications Medications Current Medications Ondansetron HCl (Zofran Inj) 4 mg Q6H PRN IV NAUSEA AND/OR VOMITING; Start 05/01 at 20:30 Acetaminophen (Tylenol Tab) 650 mg Q6H PRN PO PAIN LEVEL 1-3 OR FEVER Last administered on 05/06/16t 08:23; Admin Dose 650 MG; Start 05/01/16 at 20:30 Acetaminophen (Tylenol Supp) 650 mg Q6H PRN [place] PAIN LEVEL 1-3 OR FEVER; Start 05/01/16 at 20:30 Docusate Sodium (Colace) 100 mg Q12H PRN PO CONSTIPATION Last administered on 11:52; Admin Dose 100 MG; Start 05/01/16 at 20:30 Magnesium Hydroxide (Milk Of Mag) 30 ml DAILY PRN PO CONSTIPATION Last administered on 05/03/16 11:52; Admin Dose 30 ML; Start 05/01/16 at 20:30 Bisacodyl (Dulcolax) 5 mg DAILY PRN PO CONSTIPATION; Start 05/01/16 at 20:30 Bisacodyl (Dulcolax Supp) 10 mg DAILY PRN [place] CONSTIPATION; Start 05/01/16 at 20: 30 Sodium Biphosphate/ Sodium Phosphate (Fleet Enema) 133 ml DAILY PRN [place] CONSTIPATION; Start 05/01/16 at 20:30 Pantoprazole (Protonix Iv) 40 mg DAILY@06 IV Last administered on 05/11/16 06: 38; Admin Dose 40 MG; Start 05/02/16 at 06:00 Tamsulosin HCl (Flomax) 0.4 mg HS PO Last administered on 05/10/16 21:13; Admin Dose 0.4 MG; Start 05/03/16 at 21:00 Aspirin (Aspirin) 325 mg DAILY PO Last administered on 05/09/16 08:08; Admin Dose 325 MG; Start 05/04/16 at 09:00; Status Future Hold Methylprednisolone Sodium Succinate (Solu-Medrol) 20 mg DAILY IV Last administered on 05/11/16 10:02; Admin Dose 20 MG; Start 05/05/16 at 09:00 Lorazepam (Ativan) 2 mg Q2 PRN IV AGITATION Last administered on 05/09/16 12: 35; Admin Dose 2 MG; Start 05/05/16 at 18:00 Morphine Sulfate 2 mg 2 mg Q2H PRN IV PAIN Last administered on 05/09/16 01:35 ; Admin Dose 2 MG; Start 05/05/16 at 18:00 Dextrose/Sodium Chloride 1,000 ml @ 45 mls/hr [id number] IV Last administered on 05/10/16 22:49; Admin Dose 45 MLS/HR; Start 05/06/16 at 09:30 Piperacillin Sod/ Tazobactam Sod (Zosyn 2.25gm/ 50ml (Pmx)) 50 ml @ 100 mls/hr Q6 IVPB Last administered on 05/11/16 06:38; Admin Dose 100 MLS/HR; Start 01/12 at 12:00 IV Flush (NS 10 ml) 10 ml PRN PRN IV FLUSH LINE; Start 05/06/16 at 13:00 Enoxaparin Sodium 60 mg 60 mg DAILY SC Last administered on 05/11/16 10:02; Admin Dose 60 MG; Start 05/06/16 at 13:30 Norepinephrine 16 mg/Dextrose 500 ml @ 1.87 mls/hr TITRATE IV Last administered on 05/07/16 06:40; Admin Dose 16.83 MLS/HR; Start 05/06/16 at 16: 30 Fluconazole (Diflucan 200 Mg/ NS (Pmx)) 100 ml @ 100 mls/hr Q24H IVPB Last administered on 05/10/16 19:52; Admin Dose 100 MLS/HR; Start 05/07/16 at 18:00 Docusate Sodium (Colace Liquid Cup) 100 mg TID NGT Last administered on 10:02; Admin Dose 100 MG; Start 05/08/16 at 21:00 Polyethylene Glycol (Miralax) 17 gm DAILY GTB Last administered on 05/11/16 10 :03; Admin Dose 17 GM; Start 05/09/16 at 09:00 Carvedilol (Coreg) 3.125 mg BID NGT Last administered on 05/10/16 21:13; Admin Dose 3.125 MG; Start 05/10/16 at 21:00 Hydralazine HCl (Apresoline) 10 mg Q8 PO Last administered on 05/10/16 21:14; Admin Dose 10 MG; Start 05/10/16 at 14:00 Doxycycline Hyclate (Vibramycin) 100 mg BID PO Last administered on 05/11/16 10:02; Admin Dose 100 MG; Start 05/10/16 at 21:00 JAYA GORE 16, 2017 10:43
--- NOTE | 2016-05-11 13:54 | CONS ---
Date/Time of Note Date/Time of Note DATE: 05/11/16 TIME: 13:52 Assessment/Plan Assessment/Plan Chief Complaint/Hosp Course SUBJECTIVE: Extubated this am, lethargic, lying comfortably in bed. No fevers. INDWELLINGS: Alfonso catheter, PICC line placed on 05/06. ANTIMICROBIALS: 1. Fluconazole. 2. Zosyn. 3. Doxycycline PHYSICAL EXAMINATION: GENERAL: This is a chronically ill-appearing, elderly man who is lying comfortably in bed. HEENT: Head atraumatic, normocephalic. Sclerae anicteric. Buccal mucosa dry. NECK: Supple, trachea midline. CHEST: Rise symmetrical. Breath sounds diminished to bases. HEART: S1, S2. ABDOMEN: Soft, bowel tones present. EXTREMITIES: Without cyanosis. ASSESSMENT: 1. Acute hypoxemic respiratory failure==> extubated. 2. Possible aspiration pneumonia. 3. Acute renal failure. 4. Chronic obstructive pulmonary disease exacerbation. 5. Hypertension 6. History of benign prostatic hypertrophy. 7. Leukocytosis==> patient remains on steroids==> tapering. PLAN: Patient remains stable post extubation, continue abx, aspiration precautions, f/u pulmonary/card rec-s. DW staff Problems: Consultation Date/Type/Reason Admit Date/Time May 01, 2016 at 20:18 Initial Consult Date 05/05/16 Type of Consultation: id Referring Provider: HOLLI LINDER MD Exam/Review of Systems Vital Signs Vitals Vital Signs Date Time Temp Pulse Resp B/P Pulse Ox O2 Delivery O2 Flow Rate FiO2 05/11/16 12:00 72 05/11/16 10:00 30 05/11/16 10:00 27 98/56 98 Mechanical Ventilator 05/11/16 08:00 99.7 Intake and Output 05/10/16 05/10/16 05/11/16 15:00 23:00 07:00 Intake Total 830 ml 690 ml 930 ml Output Total 305 ml 330 ml 370 ml Balance 525 ml 360 ml 560 ml Results Result Diagram: 05/11/16 0400 05/11/16 0400 Results 24 hrs Laboratory Tests Test 05/11/16 04:00 05/11/16 10:00 Anion Gap 13 Blood Urea Nitrogen 65 H Calcium Level 8.1 L Carbon Dioxide Level 29 Chloride Level 116 H Creatinine 1.37 H Glucose Level 173 Hematocrit 39.8 L Hemoglobin 12.3 L Magnesium Level 2.3 Mean Corpuscular Hemoglobin 30.6 Mean Corpuscular Hemoglobin Concent 30.9 L Mean Corpuscular Volume 99.0 Mean Platelet Volume 11.9 H Monocytes # 1.1 H Monocytes % 3.0 Neutrophils # 34.2 H Neutrophils % 97.0 H Phosphorus Level 2.7 Platelet Count 112 L Potassium Level 4.2 Red Blood Count 4.02 L Red Cell Distribution Width 14.4 Sodium Level 154 H White Blood Count 35.3 #H Arterial Blood HCO3 25.7 Arterial Blood Base Excess 2.9 Arterial Blood Oxygen Saturation 96.6 Zaid Test ACCEPTAB Arterial Blood Gas Puncture Site Right Radial Arterial Blood Carboxyhemoglobin 0.3 Arterial Blood Date Drawn 05/11/2016 10:05:27 AM Arterial Blood Methemoglobin 0.4 Arterial Blood pCO2 (Temp correct) 33.8 L Arterial Blood pH (Temp corrected) 7.499 H Arterial Blood pO2 (Temp corrected) 84.1 Blood Gas A-a O2 Differential 90.1 H Blood Gas Actual Respiration Rate 28 Blood Gas Low PEEP Setting 5.0 Blood Gas Modality VENT - CPAP Blood Gas Notified Time 05/11/2016 10:15:05 AM Blood Gas Notified Whom JLD Blood Gas Pressure Support 12 Blood Gas Specimen Source Blood arterial Blood Gas Temperature 37.0 FiO2 30.0 Oxyhemoglobin Percent 95.9 Total Hemoglobin 13.4 Medications Medications Current Medications Ondansetron HCl (Zofran Inj) 4 mg Q6H PRN IV NAUSEA AND/OR VOMITING; Start 05/01 at 20:30 Acetaminophen (Tylenol Tab) 650 mg Q6H PRN PO PAIN LEVEL 1-3 OR FEVER Last administered on 05/06/16 08:23; Admin Dose 650 MG; Start 05/01/16 at 20:30 Acetaminophen (Tylenol Supp) 650 mg Q6H PRN [place] PAIN LEVEL 1-3 OR FEVER; Start 05/01/16 at 20:30 Docusate Sodium (Colace) 100 mg Q12H PRN PO CONSTIPATION Last administered on 11:52; Admin Dose 100 MG; Start 05/01/16 at 20:30 Magnesium Hydroxide (Milk Of Mag) 30 ml DAILY PRN PO CONSTIPATION Last administered on 05/03/16 11:52; Admin Dose 30 ML; Start 05/01/16 at 20:30 Bisacodyl (Dulcolax) 5 mg DAILY PRN PO CONSTIPATION; Start 05/01/16 at 20:30 Bisacodyl (Dulcolax Supp) 10 mg DAILY PRN [place] CONSTIPATION; Start 05/01/16 at 20: 30 Sodium Biphosphate/ Sodium Phosphate (Fleet Enema) 133 ml DAILY PRN [place] CONSTIPATION; Start 05/01/16 at 20:30 Pantoprazole (Protonix Iv) 40 mg DAILY@06 IV Last administered on 05/11/16 06: 38; Admin Dose 40 MG; Start 05/02/16 at 06:00 Tamsulosin HCl (Flomax) 0.4 mg HS PO Last administered on 05/10/16 21:13; Admin Dose 0.4 MG; Start 05/03/16 at 21:00 Aspirin (Aspirin) 325 mg DAILY PO Last administered on 05/09/16 08:08; Admin Dose 325 MG; Start 05/04/16 at 09:00; Status Future Hold Methylprednisolone Sodium Succinate (Solu-Medrol) 20 mg DAILY IV Last administered on 05/11/16 10:02; Admin Dose 20 MG; Start 05/05/16 at 09:00 Lorazepam (Ativan) 2 mg Q2 PRN IV AGITATION Last administered on 05/09/16 12: 35; Admin Dose 2 MG; Start 05/05/16 at 18:00 Morphine Sulfate 2 mg 2 mg Q2H PRN IV PAIN Last administered on 05/09/16 01:35 ; Admin Dose 2 MG; Start 05/05/16 at 18:00 Dextrose/Sodium Chloride 1,000 ml @ 45 mls/hr [id number] IV Last administered on 05/10/16 22:49; Admin Dose 45 MLS/HR; Start 05/06/16 at 09:30 Piperacillin Sod/ Tazobactam Sod (Zosyn 2.25gm/ 50ml (Pmx)) 50 ml @ 100 mls/hr Q6 IVPB Last administered on 05/11/16 12:44; Admin Dose 100 MLS/HR; Start 01/12 at 12:00 IV Flush (NS 10 ml) 10 ml PRN PRN IV FLUSH LINE; Start 05/06/16 at 13:00 Enoxaparin Sodium 60 mg 60 mg DAILY SC Last administered on 05/11/16 10:02; Admin Dose 60 MG; Start 05/06/16 at 13:30 Norepinephrine 16 mg/Dextrose 500 ml @ 1.87 mls/hr TITRATE IV Last administered on 05/07/16 06:40; Admin Dose 16.83 MLS/HR; Start 05/06/16 at 16: 30 Fluconazole (Diflucan 200 Mg/ NS (Pmx)) 100 ml @ 100 mls/hr Q24H IVPB Last administered on 05/10/16 19:52; Admin Dose 100 MLS/HR; Start 05/07/16 at 18:00 Docusate Sodium (Colace Liquid Cup) 100 mg TID NGT Last administered on 10:02; Admin Dose 100 MG; Start 05/08/16 at 21:00 Polyethylene Glycol (Miralax) 17 gm DAILY GTB Last administered on 05/11/16 10 :03; Admin Dose 17 GM; Start 05/09/16 at 09:00 Carvedilol (Coreg) 3.125 mg BID NGT Last administered on 05/10/16 21:13; Admin Dose 3.125 MG; Start 05/10/16 at 21:00 Hydralazine HCl (Apresoline) 10 mg Q8 PO Last administered on 05/10/16 21:14; Admin Dose 10 MG; Start 05/10/16 at 14:00 Doxycycline Hyclate (Vibramycin) 100 mg BID PO Last administered on 05/11/16 10:02; Admin Dose 100 MG; Start 05/10/16 at 21:00 JOSE G CUNNINGHAM NP May 11, 2016 13:54
[2016-05-11] MEDS: FLUCONAZOLE 200 MG/NS (PMX) 100 ML IVPB SCH (17:55)
[2016-05-11] MEDS ORDERED: D5-0.2 NACL + KCL 20 MEQ 1,000 ML IV SCH (19:00)
--- NOTE | 2016-05-11 19:00 | PN ---
Date/Time of Note Date/Time of Note DATE: 05/11/16 TIME: 18:59 Assessment/Plan VTE Prophylaxis VTE Prophylaxis Intervention: other Lines/Catheters IV Catheter Type (from Nrs): PICC Line Central line still needed: Yes Urinary Cath still in place: Yes Reason Cath still needed: other (indicate) Assessment/Plan Chief Complaint/Hosp Course IMPRESSION: The patient has 1. ACUTE RES FAILURE 2. hypernatremia 3. Hypertension. 4. anxiety 5. PACEMAKER HX 6 low ef 7 leucocytosis 8 RHINA SEPSIS plan cardio eval dec steroid per id ANTIBIOTIC CHANGE IV FLUID Problems: Subjective 24 Hr Interval Summary Subjective hx not possible: other (OFF VENT) Exam/Review of Systems Vital Signs Vitals Vital Signs Date Time Temp Pulse Resp B/P Pulse Ox O2 Delivery O2 Flow Rate FiO2 05/11/16 16:00 69 05/11/16 15:00 24 108/54 99 Nasal Cannula 4.0 05/11/16 12:00 97.4 05/11/16 10:00 30 Intake and Output 05/10/16 05/10/16 05/11/16 15:00 23:00 07:00 Intake Total 830 ml 690 ml 930 ml Output Total 305 ml 330 ml 370 ml Balance 525 ml 360 ml 560 ml Exam Respiratory: clear to auscultation Cardiovascular: regular rate and rhythm Gastrointestinal: soft Musculoskeletal: nl extremities to inspection Results Result Diagram: 05/11/16 0400 05/11/16 0400 Results 24 hrs Laboratory Tests Test 05/11/16 04:00 05/11/16 10:00 Anion Gap 13 Blood Urea Nitrogen 65 H Calcium Level 8.1 L Carbon Dioxide Level 29 Chloride Level 116 H Creatinine 1.37 H Glucose Level 173 Hematocrit 39.8 L Hemoglobin 12.3 L Magnesium Level 2.3 Mean Corpuscular Hemoglobin 30.6 Mean Corpuscular Hemoglobin Concent 30.9 L Mean Corpuscular Volume 99.0 Mean Platelet Volume 11.9 H Monocytes # 1.1 H Monocytes % 3.0 Neutrophils # 34.2 H Neutrophils % 97.0 H Phosphorus Level 2.7 Platelet Count 112 L Potassium Level 4.2 Red Blood Count 4.02 L Red Cell Distribution Width 14.4 Sodium Level 154 H White Blood Count 35.3 #H Arterial Blood HCO3 25.7 Arterial Blood Base Excess 2.9 Arterial Blood Oxygen Saturation 96.6 Zaid Test ACCEPTAB Arterial Blood Gas Puncture Site Right Radial Arterial Blood Carboxyhemoglobin 0.3 Arterial Blood Date Drawn 05/11/2016 10:05:27 AM Arterial Blood Methemoglobin 0.4 Arterial Blood pCO2 (Temp correct) 33.8 L Arterial Blood pH (Temp corrected) 7.499 H Arterial Blood pO2 (Temp corrected) 84.1 Blood Gas A-a O2 Differential 90.1 H Blood Gas Actual Respiration Rate 28 Blood Gas Low PEEP Setting 5.0 Blood Gas Modality VENT - CPAP Blood Gas Notified Time 05/11/2016 10:15:05 AM Blood Gas Notified Whom JLD Blood Gas Pressure Support 12 Blood Gas Specimen Source Blood arterial Blood Gas Temperature 37.0 FiO2 30.0 Oxyhemoglobin Percent 95.9 Total Hemoglobin 13.4 Medications Medications Current Medications Ondansetron HCl (Zofran Inj) 4 mg Q6H PRN IV NAUSEA AND/OR VOMITING; Start 05/01 at 20:30 Acetaminophen (Tylenol Tab) 650 mg Q6H PRN PO PAIN LEVEL 1-3 OR FEVER Last administered on 05/06/16 08:23; Admin Dose 650 MG; Start 05/01/16 at 20:30 Acetaminophen (Tylenol Supp) 650 mg Q6H PRN [place] PAIN LEVEL 1-3 OR FEVER; Start 05/01/16 at 20:30 Docusate Sodium (Colace) 100 mg Q12H PRN PO CONSTIPATION Last administered on 11:52; Admin Dose 100 MG; Start 05/01/16 at 20:30 Magnesium Hydroxide (Milk Of Mag) 30 ml DAILY PRN PO CONSTIPATION Last administered on 05/03/16 11:52; Admin Dose 30 ML; Start 05/01/16 at 20:30 Bisacodyl (Dulcolax) 5 mg DAILY PRN PO CONSTIPATION; Start 05/01/16 at 20:30 Bisacodyl (Dulcolax Supp) 10 mg DAILY PRN [place] CONSTIPATION; Start 05/01/16 at 20: 30 Sodium Biphosphate/ Sodium Phosphate (Fleet Enema) 133 ml DAILY PRN [place] CONSTIPATION; Start 05/01/16 at 20:30 Pantoprazole (Protonix Iv) 40 mg DAILY@06 IV Last administered on 05/11/16 06: 38; Admin Dose 40 MG; Start 05/02/16 at 06:00 Tamsulosin HCl (Flomax) 0.4 mg HS PO Last administered on 05/10/16 21:13; Admin Dose 0.4 MG; Start 05/03/16 at 21:00 Aspirin (Aspirin) 325 mg DAILY PO Last administered on 05/09/16 08:08; Admin Dose 325 MG; Start 05/04/16 at 09:00; Status Future Hold Methylprednisolone Sodium Succinate (Solu-Medrol) 20 mg DAILY IV Last administered on 05/11/16 10:02; Admin Dose 20 MG; Start 05/05/16 at 09:00 Lorazepam (Ativan) 2 mg Q2 PRN IV AGITATION Last administered on 05/09/16 12: 35; Admin Dose 2 MG; Start 05/05/16 at 18:00 Morphine Sulfate 2 mg 2 mg Q2H PRN IV PAIN Last administered on 05/09/16 01:35 ; Admin Dose 2 MG; Start 05/05/16 at 18:00 Dextrose/Sodium Chloride 1,000 ml @ 45 mls/hr [id number] IV Last administered on 05/10/16 22:49; Admin Dose 45 MLS/HR; Start 05/06/16 at 09:30 Piperacillin Sod/ Tazobactam Sod (Zosyn 2.25gm/ 50ml (Pmx)) 50 ml @ 100 mls/hr Q6 IVPB Last administered on 05/11/16 17:55; Admin Dose 100 MLS/HR; Start 01/12 at 12:00 IV Flush (NS 10 ml) 10 ml PRN PRN IV FLUSH LINE; Start 05/06/16 at 13:00 Enoxaparin Sodium 60 mg 60 mg DAILY SC Last administered on 05/11/16 10:02; Admin Dose 60 MG; Start 05/06/16 at 13:30 Norepinephrine 16 mg/Dextrose 500 ml @ 1.87 mls/hr TITRATE IV Last administered on 05/07/16 06:40; Admin Dose 16.83 MLS/HR; Start 05/06/16 at 16: 30 Fluconazole (Diflucan 200 Mg/ NS (Pmx)) 100 ml @ 100 mls/hr Q24H IVPB Last administered on 05/11/16 17:55; Admin Dose 100 MLS/HR; Start 05/07/16 at 18:00 Docusate Sodium (Colace Liquid Cup) 100 mg TID NGT Last administered on 10:02; Admin Dose 100 MG; Start 05/08/16 at 21:00 Polyethylene Glycol (Miralax) 17 gm DAILY GTB Last administered on 05/11/16 10 :03; Admin Dose 17 GM; Start 05/09/16 at 09:00 Carvedilol (Coreg) 3.125 mg BID NGT Last administered on 05/10/16 21:13; Admin Dose 3.125 MG; Start 05/10/16 at 21:00 Hydralazine HCl (Apresoline) 10 mg Q8 PO Last administered on 05/10/16 21:14; Admin Dose 10 MG; Start 05/10/16 at 14:00 Doxycycline Hyclate (Vibramycin) 100 mg BID PO Last administered on 05/11/16 10:02; Admin Dose 100 MG; Start 05/10/16 at 21:00 HOLLI LINDER MD May 11, 2016 19:00
[2016-05-11 19:17] LABS: AADO2 Arterial 104.4 mmHg (7.0-24.0); Allen Test ACCEPTAB; Arterial Base Excess 3.4 mmol/L (-3.0-3); Arterial COHb 0.3 % (0.0-3.0); Arterial Fraction of Oxyhgb 94.4 % (93.0-99.0); Arterial HCO3 26.1 mmol/L (22.0-26.0); Arterial MetHb 0.4 % (0.0-1.5); Arterial Total Hemglobin 12.9 g/dl (12.0-18.0); MODE NASAL CANNULA
[2016-05-11] MEDS: TAMSULOSIN (SR) 0.4 MG CAP PO SCH (21:00)
[2016-05-12] VITALS (22 sets, daily range): BP systolic 105–125; BP diastolic 51–66; PULSE 63–74; RESP 14–28
[2016-05-12] MEDS: PIPER-TAZO 2.25 GM (PMX) 50 ML IVPB SCH ×5 (00:45→22:58)
[2016-05-12 05:24] LABS: ADD SCAN DIFF NO
[2016-05-12 05:38] LABS: ABNORMAL IP MESSAGE 1; HEMATOCRIT 37.8 % (42.0-52.0); HEMOGLOBIN 11.4 g/dl (14.0-18.0); MEAN CORPUSCULAR HGB CONC 30.2 g/dl (32.0-37.0); MEAN CORPUSCULAR VOLUME 99.5 fl (82.0-101.0); MEAN PLATELET VOLUME 13.2 fl (7.4-10.4); PLATELET COUNT 90 10^3/UL (140-415); RED CELL DISTRIBUTION WIDTH 14.6 % (11.5-14.5)
[2016-05-12 05:51] LABS: ALBUMIN 2.2 g/dl (3.3-4.9)
[2016-05-12 05:53] LABS: CREATININE 1.27 mg/dl (0.61-1.24)
[2016-05-12 05:54] LABS: ALBUMIN/GLOBULIN RATIO 0.73; BILIRUBIN,INDIRECT 0.1 mg/dl (0-1.1); BILIRUBIN,TOTAL 0.1 mg/dl (0.2-1.3); TOTAL PROTEIN 5.2 g/dl (6.1-8.1)
[2016-05-12 05:55] LABS: CALCIUM 7.9 mg/dl (8.4-10.2)
[2016-05-12] MEDS: PANTOPRAZOLE 40 MG INJ IV SCH (06:33)
[2016-05-12 07:39] LABS: LYMPHOCYTES # 1.6 10^3/ul (0.8-2.9); MONOCYTE # 0.8 10^3/ul (0.3-0.9); NEUTROPHIL # 37.6 10^3/ul (1.6-7.5)
--- NOTE | 2016-05-12 07:48 | CONS ---
Date/Time of Note Date/Time of Note DATE: 05/12/16 TIME: 07:45 Assessment/Plan Assessment/Plan Additional Assessment/Plan Labs were reviewed from today patient still mildly hyponatremic. Renal function is markedly improved. Still has significant leukocytosis. Next Assessment recommendations; 1. Patient admitted for respiratory failure secondary to COPD exacerbation possibly some element of aspiration pneumonia with marked overall clinical improvement. Extremities yesterday afternoon. 2. History of renal insufficiency, much improved now. 3. Hyponatremia. 4. History of BPH 5. History of hypertension. 6. History of COPD. Continue current treatment. Monitor white cell count. Administer free water for correction of hypernatremia. Patient was transferred to the medical floor. Consultation Date/Type/Reason Admit Date/Time May 01, 2016 at 20:18 Initial Consult Date 05/05/16 Type of Consultation: Pulmonary/critical care Referring Provider: HOLLI LINDER MD 24 HR Interval Summary Free Text/Dictation Patient condition is stable. Remains awake and alert. Was successfully extubated yesterday afternoon. General exam; elderly male, currently in no distress. Awake. Patient however is appearing to be a phasic possibly from recent endotracheal intubation. Exam/Review of Systems Vital Signs Vitals Vital Signs Date Time Temp Pulse Resp B/P Pulse Ox O2 Delivery O2 Flow Rate FiO2 05/12/16 07:00 67 20 114/60 96 Nasal Cannula 3.0 05/12/16 04:00 97.8 05/11/16 10:00 30 Intake and Output 05/11/16 05/11/16 05/12/16 15:00 23:00 07:00 Intake Total 442.5 ml 520 ml 660 ml Output Total 410 ml 325 ml 380 ml Balance 32.5 ml 195 ml 280 ml Exam H EENT examination; supple neck, no lymphadenopathy. No thyromegaly. Midline trachea. Patient is edentulous. Has bilateral corneal opacities. No neck masses. Chest examination; diminished but clear breath sounds bilaterally. No added salt. S1-S2 audible, no murmurs. Regular rhythm. Abdomen examination of [place] soft, nondistended. No organomegaly. Bowel sounds audible. Nontender. Extremity exam is; no peripheral edema. [employer] examination a micro patient is awake alert follows simple commands moves all 4 extremities. Results Result Diagram: 05/12/16 0445 05/12/16 0445 Results 24 hrs Laboratory Tests Test 05/11/16 10:00 05/11/16 19:07 05/12/16 04:45 Arterial Blood HCO3 25.7 26.1 H Arterial Blood Base Excess 2.9 3.4 H Arterial Blood Oxygen Saturation 96.6 95.1 Zaid Test ACCEPTAB ACCEPTAB Arterial Blood Gas Puncture Site Right Radial Left Radial Arterial Blood Carboxyhemoglobin 0.3 0.3 Arterial Blood Date Drawn 05/11/2016 10:05:27 AM 05/11/2016 7:00:50 PM Arterial Blood Methemoglobin 0.4 0.4 Arterial Blood pCO2 (Temp correct) 33.8 L 33.6 L Arterial Blood pH (Temp corrected) 7.499 H 7.508 H Arterial Blood pO2 (Temp corrected) 84.1 70.0 L Blood Gas A-a O2 Differential 90.1 H 104.4 H Blood Gas Actual Respiration Rate 28 Blood Gas Low PEEP Setting 5.0 Blood Gas Modality VENT - CPAP NASAL CANNULA Blood Gas Notified Time 05/11/2016 10:15:05 AM 05/11/2016 7:17:39 PM Blood Gas Notified Whom JOANNA SLATER Blood Gas Pressure Support 12 Blood Gas Specimen Source Blood arterial Blood arterial Blood Gas Temperature 37.0 37.0 FiO2 30.0 30.0 Oxyhemoglobin Percent 95.9 94.4 Total Hemoglobin 13.4 12.9 Alanine Aminotransferase (ALT/SGPT) 29 Albumin 2.2 L Albumin/Globulin Ratio 0.73 Alkaline Phosphatase 47 Anion Gap 12 Aspartate Amino Transf (AST/SGOT) 26 Blood Urea Nitrogen 52 H Calcium Level 7.9 L Carbon Dioxide Level 30 Chloride Level 115 H Creatinine 1.27 H Direct Bilirubin 0.00 Globulin 3.00 Glucose Level 113 # Hematocrit 37.8 L Hemoglobin 11.4 L Indirect Bilirubin 0.1 Lymphocytes # 1.6 Lymphocytes % 4.0 L Mean Corpuscular Hemoglobin 30.0 Mean Corpuscular Hemoglobin Concent 30.2 L Mean Corpuscular Volume 99.5 Mean Platelet Volume 13.2 H Monocytes # 0.8 Monocytes % 2.0 Neutrophils # 37.6 H Neutrophils % 94.0 H Platelet Count 90 L Potassium Level 4.0 Red Blood Count 3.80 L Red Cell Distribution Width 14.6 H Sodium Level 153 H Total Bilirubin 0.1 L Total Protein 5.2 L White Blood Count 40.0 H Medications Medications Current Medications Ondansetron HCl (Zofran Inj) 4 mg Q6H PRN IV NAUSEA AND/OR VOMITING; Start 05/01 at 20:30 Acetaminophen (Tylenol Tab) 650 mg Q6H PRN PO PAIN LEVEL 1-3 OR FEVER Last administered on 05/06/16 08:23; Admin Dose 650 MG; Start 05/01/16 at 20:30 Acetaminophen (Tylenol Supp) 650 mg Q6H PRN [place] PAIN LEVEL 1-3 OR FEVER; Start 05/01/16 at 20:30 Docusate Sodium (Colace) 100 mg Q12H PRN PO CONSTIPATION Last administered on 11:52; Admin Dose 100 MG; Start 05/01/16 at 20:30 Magnesium Hydroxide (Milk Of Mag) 30 ml DAILY PRN PO CONSTIPATION Last administered on 05/03/16 11:52; Admin Dose 30 ML; Start 05/01/16 at 20:30 Bisacodyl (Dulcolax) 5 mg DAILY PRN PO CONSTIPATION; Start 05/01/16 at 20:30 Bisacodyl (Dulcolax Supp) 10 mg DAILY PRN [place] CONSTIPATION; Start 05/01/16 at 20: 30 Sodium Biphosphate/ Sodium Phosphate (Fleet Enema) 133 ml DAILY PRN [place] CONSTIPATION; Start 05/01/16 at 20:30 Pantoprazole (Protonix Iv) 40 mg DAILY@06 IV Last administered on 05/12/16 06: 33; Admin Dose 40 MG; Start 05/02/16 at 06:00 Tamsulosin HCl (Flomax) 0.4 mg HS PO Last administered on 05/10/16 21:13; Admin Dose 0.4 MG; Start 05/03/16 at 21:00 Aspirin (Aspirin) 325 mg DAILY PO Last administered on 05/09/16 08:08; Admin Dose 325 MG; Start 05/04/16 at 09:00; Status Future Hold Methylprednisolone Sodium Succinate (Solu-Medrol) 20 mg DAILY IV Last administered on 05/11/16 10:02; Admin Dose 20 MG; Start 05/05/16 at 09:00 Lorazepam (Ativan) 2 mg Q2 PRN IV AGITATION Last administered on 05/09/16 12: 35; Admin Dose 2 MG; Start 05/05/16 at 18:00 Morphine Sulfate 2 mg 2 mg Q2H PRN IV PAIN Last administered on 05/09/16 01:35 ; Admin Dose 2 MG; Start 05/05/16 at 18:00 Piperacillin Sod/ Tazobactam Sod (Zosyn 2.25gm/ 50ml (Pmx)) 50 ml @ 100 mls/hr Q6 IVPB Last administered on 05/12/16 06:33; Admin Dose 100 MLS/HR; Start 01/12 at 12:00 IV Flush (NS 10 ml) 10 ml PRN PRN IV FLUSH LINE; Start 05/06/16 at 13:00 Enoxaparin Sodium 60 mg 60 mg DAILY SC Last administered on 05/11/16 10:02; Admin Dose 60 MG; Start 05/06/16 at 13:30 Norepinephrine 16 mg/Dextrose 500 ml @ 1.87 mls/hr TITRATE IV Last administered on 05/07/16 06:40; Admin Dose 16.83 MLS/HR; Start 05/06/16 at 16: 30 Fluconazole (Diflucan 200 Mg/ NS (Pmx)) 100 ml @ 100 mls/hr Q24H IVPB Last administered on 05/11/16 17:55; Admin Dose 100 MLS/HR; Start 05/07/16 at 18:00 Docusate Sodium (Colace Liquid Cup) 100 mg TID NGT Last administered on 10:02; Admin Dose 100 MG; Start 05/08/16 at 21:00 Polyethylene Glycol (Miralax) 17 gm DAILY GTB Last administered on 05/11/16 10 :03; Admin Dose 17 GM; Start 05/09/16 at 09:00 Carvedilol (Coreg) 3.125 mg BID NGT Last administered on 05/10/16 21:13; Admin Dose 3.125 MG; Start 05/10/16 at 21:00 Hydralazine HCl (Apresoline) 10 mg Q8 PO Last administered on 05/10/16 21:14; Admin Dose 10 MG; Start 05/10/16 at 14:00 Doxycycline Hyclate 100 mg 100 mg BID PO Last administered on 05/11/16 10:02; Admin Dose 100 MG; Start 05/10/16 at 21:00 Potassium Chloride/Dextrose/ Sod Cl (D5-1/4ns + KCl 20 Meq) 1,000 ml @ 70 mls/ hr [id number] IV Last administered on 05/11/16t 19:00; Admin Dose 70 MLS/HR; Start 05/11/16 at 19:00 GERALDINE CUNNINGHAM May 12, 2016 07:48
[2016-05-12] MEDS: DOCUSATE SODIUM 10 MG/ML (10ML CUP) NGT SCH ×3 (09:00→21:00)
[2016-05-12] MEDS: POLYETHYLENE GLYCOL 17 GM PACKET GTB SCH (09:00)
[2016-05-12] MEDS: DOXYCYCLINE 100 MG TAB PO SCH ×2 (09:00→21:00)
--- NOTE | 2016-05-12 09:05 | PN ---
Date/Time of Note Date/Time of Note DATE: 05/12/16 TIME: 09:00 Assessment/Plan VTE Prophylaxis VTE Prophylaxis Intervention: SCD's Lines/Catheters IV Catheter Type (from Nrsg): PICC Line Central line still needed: Yes Urinary Cath still in place: Yes Reason Cath still needed: urinary retention Assessment/Plan Chief Complaint/Hosp Course 1. ACUTE RES FAILURE, improvement 2. hypernatremia, change IVF to Dextrose 5 water 50 ml hour 3. Hypertension. 4. anxiety 5. pt will undergo swallow evaluatio for nutrition 6.SEPSIS, increase WBC comparing yesterday, ID per Dr Kapadia Care was coordinated with dr Kaur and nursing Problems: Subjective 24 Hr Interval Summary Constitutional: other (lethargic) Eyes: no complaints ENT: no complaints Respiratory: no complaints Cardiovascular: no complaints Gastrointestinal: no complaints Genitourinary: no complaints Musculoskeletal: no complaints Skin: no complaints Exam/Review of Systems Vital Signs Vitals Vital Signs Date Time Temp Pulse Resp B/P Pulse Ox O2 Delivery O2 Flow Rate FiO2 05/12/16 07:00 67 20 114/60 96 Nasal Cannula 3.0 05/12/16 04:00 97.8 05/11/16 10:00 30 Intake and Output 05/11/16 05/11/16 05/12/16 15:00 23:00 07:00 Intake Total 442.5 ml 520 ml 660 ml Output Total 410 ml 325 ml 380 ml Balance 32.5 ml 195 ml 280 ml Exam Constitutional: alert Psych: nl mood/affect, no complaints Head: atraumatic, normocephalic Eyes: EOMI, nl conjunctiva, nl lids Neck: supple Respiratory: clear to auscultation Cardiovascular: regular rate and rhythm Gastrointestinal: nl liver, spleen, soft Genitourinary - Male: nl penis Extremities: normal pulses Results Result Diagram: 05/12/16 0445 05/12/16 0445 Results 24 hrs Laboratory Tests Test 05/11/16 10:00 05/11/16 19:07 05/12/16 04:45 Arterial Blood HCO3 25.7 26.1 H Arterial Blood Base Excess 2.9 3.4 H Arterial Blood Oxygen Saturation 96.6 95.1 Zaid Test ACCEPTAB ACCEPTAB Arterial Blood Gas Puncture Site Right Radial Left Radial Arterial Blood Carboxyhemoglobin 0.3 0.3 Arterial Blood Date Drawn 05/11/2016 10:05:27 AM 05/11/2016 7:00:50 PM Arterial Blood Methemoglobin 0.4 0.4 Arterial Blood pCO2 (Temp correct) 33.8 L 33.6 L Arterial Blood pH (Temp corrected) 7.499 H 7.508 H Arterial Blood pO2 (Temp corrected) 84.1 70.0 L Blood Gas A-a O2 Differential 90.1 H 104.4 H Blood Gas Actual Respiration Rate 28 Blood Gas Low PEEP Setting 5.0 Blood Gas Modality VENT - CPAP NASAL CANNULA Blood Gas Notified Time 05/11/2016 10:15:05 AM 05/11/2016 7:17:39 PM Blood Gas Notified Whom JOANNA SLATER Blood Gas Pressure Support 12 Blood Gas Specimen Source Blood arterial Blood arterial Blood Gas Temperature 37.0 37.0 FiO2 30.0 30.0 Oxyhemoglobin Percent 95.9 94.4 Total Hemoglobin 13.4 12.9 Alanine Aminotransferase (ALT/SGPT) 29 Albumin 2.2 L Albumin/Globulin Ratio 0.73 Alkaline Phosphatase 47 Anion Gap 12 Aspartate Amino Transf (AST/SGOT) 26 Blood Urea Nitrogen 52 H Calcium Level 7.9 L Carbon Dioxide Level 30 Chloride Level 115 H Creatinine 1.27 H Direct Bilirubin 0.00 Globulin 3.00 Glucose Level 113 # Hematocrit 37.8 L Hemoglobin 11.4 L Indirect Bilirubin 0.1 Lymphocytes # 1.6 Lymphocytes % 4.0 L Mean Corpuscular Hemoglobin 30.0 Mean Corpuscular Hemoglobin Concent 30.2 L Mean Corpuscular Volume 99.5 Mean Platelet Volume 13.2 H Monocytes # 0.8 Monocytes % 2.0 Neutrophils # 37.6 H Neutrophils % 94.0 H Platelet Count 90 L Potassium Level 4.0 Red Blood Count 3.80 L Red Cell Distribution Width 14.6 H Sodium Level 153 H Total Bilirubin 0.1 L Total Protein 5.2 L White Blood Count 40.0 H Medications Medications Current Medications Ondansetron HCl (Zofran Inj) 4 mg Q6H PRN IV NAUSEA AND/OR VOMITING; Start 05/01 at 20:30 Acetaminophen (Tylenol Tab) 650 mg Q6H PRN PO PAIN LEVEL 1-3 OR FEVER Last administered on 05/06/16 08:23; Admin Dose 650 MG; Start 05/01/16 at 20:30 Acetaminophen (Tylenol Supp) 650 mg Q6H PRN [place] PAIN LEVEL 1-3 OR FEVER; Start 05/01/16 at 20:30 Docusate Sodium (Colace) 100 mg Q12H PRN PO CONSTIPATION Last administered on 11:52; Admin Dose 100 MG; Start 05/01/16 at 20:30 Magnesium Hydroxide (Milk Of Mag) 30 ml DAILY PRN PO CONSTIPATION Last administered on 05/03/16 11:52; Admin Dose 30 ML; Start 05/01/16 at 20:30 Bisacodyl (Dulcolax) 5 mg DAILY PRN PO CONSTIPATION; Start 05/01/16 at 20:30 Bisacodyl (Dulcolax Supp) 10 mg DAILY PRN [place] CONSTIPATION; Start 05/01/16 at 20: 30 Sodium Biphosphate/ Sodium Phosphate (Fleet Enema) 133 ml DAILY PRN [place] CONSTIPATION; Start 05/01/16 at 20:30 Pantoprazole (Protonix Iv) 40 mg DAILY@06 IV Last administered on 05/12/16 06: 33; Admin Dose 40 MG; Start 05/02/16 at 06:00 Tamsulosin HCl (Flomax) 0.4 mg HS PO Last administered on 05/10/16 21:13; Admin Dose 0.4 MG; Start 05/03/16 at 21:00 Aspirin (Aspirin) 325 mg DAILY PO Last administered on 05/09/16 08:08; Admin Dose 325 MG; Start 05/04/16 at 09:00; Status Future Hold Lorazepam (Ativan) 2 mg Q2 PRN IV AGITATION Last administered on 05/09/16 12: 35; Admin Dose 2 MG; Start 05/05/16 at 18:00 Morphine Sulfate 2 mg 2 mg Q2H PRN IV PAIN Last administered on 05/09/16 01:35 ; Admin Dose 2 MG; Start 05/05/16 at 18:00 Piperacillin Sod/ Tazobactam Sod (Zosyn 2.25gm/ 50ml (Pmx)) 50 ml @ 100 mls/hr Q6 IVPB Last administered on 05/12/16 06:33; Admin Dose 100 MLS/HR; Start 01/12 at 12:00 IV Flush (NS 10 ml) 10 ml PRN PRN IV FLUSH LINE; Start 05/06/16 at 13:00 Enoxaparin Sodium 60 mg 60 mg DAILY SC Last administered on 05/11/16 10:02; Admin Dose 60 MG; Start 05/06/16 at 13:30 Norepinephrine 16 mg/Dextrose 500 ml @ 1.87 mls/hr TITRATE IV Last administered on 05/07/16 06:40; Admin Dose 16.83 MLS/HR; Start 05/06/16 at 16: 30 Fluconazole (Diflucan 200 Mg/ NS (Pmx)) 100 ml @ 100 mls/hr Q24H IVPB Last administered on 05/11/16 17:55; Admin Dose 100 MLS/HR; Start 05/07/16 at 18:00 Docusate Sodium (Colace Liquid Cup) 100 mg TID NGT Last administered on 10:02; Admin Dose 100 MG; Start 05/08/16 at 21:00 Polyethylene Glycol (Miralax) 17 gm DAILY GTB Last administered on 05/11/16 10 :03; Admin Dose 17 GM; Start 05/09/16 at 09:00 Carvedilol (Coreg) 3.125 mg BID NGT Last administered on 05/10/16 21:13; Admin Dose 3.125 MG; Start 05/10/16 at 21:00 Hydralazine HCl (Apresoline) 10 mg Q8 PO Last administered on 05/10/16 21:14; Admin Dose 10 MG; Start 05/10/16 at 14:00 Doxycycline Hyclate 100 mg 100 mg BID PO Last administered on 05/11/16 10:02; Admin Dose 100 MG; Start 05/10/16 at 21:00 Potassium Chloride/Dextrose/ Sod Cl (D5-1/4ns + KCl 20 Meq) 1,000 ml @ 70 mls/ hr [id number] IV Last administered on 05/11/16 19:00; Admin Dose 70 MLS/HR; Start 05/11/16 at 19:00 WANG BELL 17, 2017 09:05
[2016-05-12] MEDS: DEXTROSE 5% 1,000 ML IV SCH ×2 (09:59→21:55)
[2016-05-12] MEDS: ENOXAPARIN 60 MG/0.6 ML SYG SC SCH (10:01)
--- NOTE | 2016-05-12 11:21 | CONS ---
Date/Time of Note Date/Time of Note DATE: 05/12/16 TIME: 11:20 Assessment/Plan Assessment/Plan Chief Complaint/Hosp Course IMPRESSION: 1. Respiratory failure s/p extubation 2. 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 negative troponin x 3 this admit. s/p lexsican LVEF 22%/no ischemia/prior SD 3. 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 Possible cardiac arrhythmia-PAFL now rate controlled s/p IVP digoxin 5. History of asthma/chronic obstructive pulmonary disease. 6. Glaucoma. 7. History of bradycardia. 8. Hypotension-improved off pressors 9. Leukocytosis. 10. Altered mental state. 11. Fevers 12.ARF 14.Hemtauria 15.Hypernatremia Recc: -Tele -serial ecg's -Continue BB and hydralazine afterload reduction as tolerated -Continue steroids/bronchodilators -Continue lovenox but follow for bleeding/hematuria -Follow volume status closely and renal fxn Problems: Consultation Date/Type/Reason Admit Date/Time May 01, 2016 at 20:18 Initial Consult Date 05/02/16 Type of Consultation: Cardiology Reason for Consultation chf./cmy Referring Provider: HOLLI LINDER MD Exam/Review of Systems Vital Signs Vitals Vital Signs Date Time Temp Pulse Resp B/P Pulse Ox O2 Delivery O2 Flow Rate FiO2 05/12/16 09:00 68 16 125/62 97 Nasal Cannula 3.0 05/12/16 08:00 98.2 05/11/16 10:00 30 Intake and Output 05/11/16 05/11/16 05/12/16 15:00 23:00 07:00 Intake Total 442.5 ml 520 ml 660 ml Output Total 410 ml 325 ml 380 ml Balance 32.5 ml 195 ml 280 ml Exam Review of Systems: CONSTITUTIONAL: No fevers, chills. PULMONARY: No sob CARDIOVASCULAR: No chest pain/palpitations GASTROINTESTINAL: No nausea/vomiting. GENITOURINARY: No hematuria/dysuria. MUSCULOSKELETAL: No myagias/arthalgias. PSYCHIATRIC: The patient denies depression. NEUROLOGIC: No weakness Constitutional: alert Psych: no complaints Head: normocephalic ENMT: mucosa pink and moist Neck: jvd (9 cm water4) Respiratory: diminished breath sounds (at bases/B) Cardiovascular: regular rate and rhythm Gastrointestinal: non-tender, soft Musculoskeletal: muscle tone (Normal) Extremities: edema (none) Neurological: lethargic Results Result Diagram: 05/12/16 0445 05/12/165 Results 24 hrs Laboratory Tests Test 05/11/16 19:07 05/12/16 04:45 Arterial Blood HCO3 26.1 H Arterial Blood Base Excess 3.4 H Arterial Blood Oxygen Saturation 95.1 Zaid Test ACCEPTAB Arterial Blood Gas Puncture Site Left Radial Arterial Blood Carboxyhemoglobin 0.3 Arterial Blood Date Drawn 05/11/2016 7:00:50 PM Arterial Blood Methemoglobin 0.4 Arterial Blood pCO2 (Temp correct) 33.6 L Arterial Blood pH (Temp corrected) 7.508 H Arterial Blood pO2 (Temp corrected) 70.0 L Blood Gas A-a O2 Differential 104.4 H Blood Gas Modality NASAL CANNULA Blood Gas Notified Time 05/11/2016 7:17:39 PM Blood Gas Notified Whom MA Blood Gas Specimen Source Blood arterial Blood Gas Temperature 37.0 FiO2 30.0 Oxyhemoglobin Percent 94.4 Total Hemoglobin 12.9 Alanine Aminotransferase (ALT/SGPT) 29 Albumin 2.2 L Albumin/Globulin Ratio 0.73 Alkaline Phosphatase 47 Anion Gap 12 Aspartate Amino Transf (AST/SGOT) 26 Blood Urea Nitrogen 52 H Calcium Level 7.9 L Carbon Dioxide Level 30 Chloride Level 115 H Creatinine 1.27 H Direct Bilirubin 0.00 Globulin 3.00 Glucose Level 113 # Hematocrit 37.8 L Hemoglobin 11.4 L Indirect Bilirubin 0.1 Lymphocytes # 1.6 Lymphocytes % 4.0 L Mean Corpuscular Hemoglobin 30.0 Mean Corpuscular Hemoglobin Concent 30.2 L Mean Corpuscular Volume 99.5 Mean Platelet Volume 13.2 H Monocytes # 0.8 Monocytes % 2.0 Neutrophils # 37.6 H Neutrophils % 94.0 H Platelet Count 90 L Potassium Level 4.0 Red Blood Count 3.80 L Red Cell Distribution Width 14.6 H Sodium Level 153 H Total Bilirubin 0.1 L Total Protein 5.2 L White Blood Count 40.0 H Medications Medications Current Medications Ondansetron HCl (Zofran Inj) 4 mg Q6H PRN IV NAUSEA AND/OR VOMITING; Start 05/01 at 20:30 Acetaminophen (Tylenol Tab) 650 mg Q6H PRN PO PAIN LEVEL 1-3 OR FEVER Last administered on 05/06/16 08:23; Admin Dose 650 MG; Start 05/01/16 at 20:30 Acetaminophen (Tylenol Supp) 650 mg Q6H PRN [place] PAIN LEVEL 1-3 OR FEVER; Start 05/01/16 at 20:30 Docusate Sodium (Colace) 100 mg Q12H PRN PO CONSTIPATION Last administered on 11:52; Admin Dose 100 MG; Start 05/01/16 at 20:30 Magnesium Hydroxide (Milk Of Mag) 30 ml DAILY PRN PO CONSTIPATION Last administered on 05/03/16 11:52; Admin Dose 30 ML; Start 05/01/16 at 20:30 Bisacodyl (Dulcolax) 5 mg DAILY PRN PO CONSTIPATION; Start 05/01/16 at 20:30 Bisacodyl (Dulcolax Supp) 10 mg DAILY PRN [place] CONSTIPATION; Start 05/01/16 at 20: 30 Sodium Biphosphate/ Sodium Phosphate (Fleet Enema) 133 ml DAILY PRN [place] CONSTIPATION; Start 05/01/16 at 20:30 Pantoprazole (Protonix Iv) 40 mg DAILY@06 IV Last administered on 05/12/16 06: 33; Admin Dose 40 MG; Start 05/02/16 at 06:00 Tamsulosin HCl (Flomax) 0.4 mg HS PO Last administered on 05/10/16 21:13; Admin Dose 0.4 MG; Start 05/03/16 at 21:00 Aspirin (Aspirin) 325 mg DAILY PO Last administered on 05/09/16 08:08; Admin Dose 325 MG; Start 05/04/16 at 09:00; Status Future Hold Lorazepam (Ativan) 2 mg Q2 PRN IV AGITATION Last administered on 05/09/16 12: 35; Admin Dose 2 MG; Start 05/05/16 at 18:00 Morphine Sulfate 2 mg 2 mg Q2H PRN IV PAIN Last administered on 05/09/16 01:35 ; Admin Dose 2 MG; Start 05/05/16 at 18:00 Piperacillin Sod/ Tazobactam Sod (Zosyn 2.25gm/ 50ml (Pmx)) 50 ml @ 100 mls/hr Q6 IVPB Last administered on 05/12/16 06:33; Admin Dose 100 MLS/HR; Start 01/12 at 12:00 IV Flush (NS 10 ml) 10 ml PRN PRN IV FLUSH LINE; Start 05/06/16 at 13:00 Enoxaparin Sodium 60 mg 60 mg DAILY SC Last administered on 05/12/16 10:01; Admin Dose 60 MG; Start 05/06/16 at 13:30 Norepinephrine 16 mg/Dextrose 500 ml @ 1.87 mls/hr TITRATE IV Last administered on 05/07/16 06:40; Admin Dose 16.83 MLS/HR; Start 05/06/16 at 16: 30 Fluconazole (Diflucan 200 Mg/ NS (Pmx)) 100 ml @ 100 mls/hr Q24H IVPB Last administered on 05/11/16 17:55; Admin Dose 100 MLS/HR; Start 05/07/16 at 18:00 Docusate Sodium (Colace Liquid Cup) 100 mg TID NGT Last administered on 10:02; Admin Dose 100 MG; Start 05/08/16 at 21:00 Polyethylene Glycol (Miralax) 17 gm DAILY GTB Last administered on 05/11/16 10 :03; Admin Dose 17 GM; Start 05/09/16 at 09:00 Carvedilol (Coreg) 3.125 mg BID NGT Last administered on 05/10/16 21:13; Admin Dose 3.125 MG; Start 05/10/16 at 21:00 Hydralazine HCl (Apresoline) 10 mg Q8 PO Last administered on 05/10/16 21:14; Admin Dose 10 MG; Start 05/10/16 at 14:00 Doxycycline Hyclate 100 mg 100 mg BID PO Last administered on 05/11/16 10:02; Admin Dose 100 MG; Start 05/10/16 at 21:00 Dextrose (D5W) 1,000 ml @ 50 mls/hr Q20H IV Last administered on 05/12/16 09: 59; Admin Dose 50 MLS/HR; Start 05/12/16 at 09:30 JAYA GORE 17, 2017 11:21
[2016-05-12] MEDS ORDERED: FUROSEMIDE 20 MG INJ IV ONE (11:30)
--- NOTE | 2016-05-12 14:11 | CONS ---
Date/Time of Note Date/Time of Note DATE: 05/12/16 TIME: 14:10 Assessment/Plan Assessment/Plan Chief Complaint/Hosp Course SUBJECTIVE: lethargic, lying comfortably in bed. No fevers. INDWELLINGS: Alfonso catheter, PICC line placed on 05/06. ANTIMICROBIALS: 1. Fluconazole. 2. Zosyn. 3. Doxycycline PHYSICAL EXAMINATION: GENERAL: This is a chronically ill-appearing, elderly man who is lying comfortably in bed. HEENT: Head atraumatic, normocephalic. Sclerae anicteric. Buccal mucosa dry. NECK: Supple, trachea midline. CHEST: Rise symmetrical. Breath sounds diminished to bases. HEART: S1, S2. ABDOMEN: Soft, bowel tones present. EXTREMITIES: Without cyanosis. ASSESSMENT: 1. Acute hypoxemic respiratory failure==> extubated. 2. Possible aspiration pneumonia. 3. Acute renal failure. 4. Chronic obstructive pulmonary disease exacerbation. 5. Hypertension 6. History of benign prostatic hypertrophy. 7. Leukocytosis==> s/p steroids. PLAN: Patient remains stable post extubation, continue abx, aspiration precautions, f/u pulmonary/card rec-s, repeat cultures. DW staff Problems: Consultation Date/Type/Reason Admit Date/Time May 01, 2016 at 20:18 Initial Consult Date 05/05/16 Type of Consultation: id Referring Provider: HOLLI LINDER MD Exam/Review of Systems Vital Signs Vitals Vital Signs Date Time Temp Pulse Resp B/P Pulse Ox O2 Delivery O2 Flow Rate FiO2 05/12/16 09:00 68 16 125/62 97 Nasal Cannula 3.0 05/12/16 08:00 98.2 05/11/16 10:00 30 Intake and Output 05/11/16 05/11/16 05/12/16 15:00 23:00 07:00 Intake Total 442.5 ml 520 ml 660 ml Output Total 410 ml 325 ml 380 ml Balance 32.5 ml 195 ml 280 ml Results Result Diagram: 05/12/16 0445 05/12/16 0445 Results 24 hrs Laboratory Tests Test 05/11/16 19:07 05/12/16 04:45 Arterial Blood HCO3 26.1 H Arterial Blood Base Excess 3.4 H Arterial Blood Oxygen Saturation 95.1 Zaid Test ACCEPTAB Arterial Blood Gas Puncture Site Left Radial Arterial Blood Carboxyhemoglobin 0.3 Arterial Blood Date Drawn 05/11/2016 7:00:50 PM Arterial Blood Methemoglobin 0.4 Arterial Blood pCO2 (Temp correct) 33.6 L Arterial Blood pH (Temp corrected) 7.508 H Arterial Blood pO2 (Temp corrected) 70.0 L Blood Gas A-a O2 Differential 104.4 H Blood Gas Modality NASAL CANNULA Blood Gas Notified Time 05/11/2016 7:17:39 PM Blood Gas Notified Whom MA Blood Gas Specimen Source Blood arterial Blood Gas Temperature 37.0 FiO2 30.0 Oxyhemoglobin Percent 94.4 Total Hemoglobin 12.9 Alanine Aminotransferase (ALT/SGPT) 29 Albumin 2.2 L Albumin/Globulin Ratio 0.73 Alkaline Phosphatase 47 Anion Gap 12 Aspartate Amino Transf (AST/SGOT) 26 B-Type Natriuretic Peptide 5890 H Blood Urea Nitrogen 52 H Calcium Level 7.9 L Carbon Dioxide Level 30 Chloride Level 115 H Creatinine 1.27 H Direct Bilirubin 0.00 Globulin 3.00 Glucose Level 113 # Hematocrit 37.8 L Hemoglobin 11.4 L Indirect Bilirubin 0.1 Lymphocytes # 1.6 Lymphocytes % 4.0 L Mean Corpuscular Hemoglobin 30.0 Mean Corpuscular Hemoglobin Concent 30.2 L Mean Corpuscular Volume 99.5 Mean Platelet Volume 13.2 H Monocytes # 0.8 Monocytes % 2.0 Neutrophils # 37.6 H Neutrophils % 94.0 H Platelet Count 90 L Potassium Level 4.0 Red Blood Count 3.80 L Red Cell Distribution Width 14.6 H Sodium Level 153 H Total Bilirubin 0.1 L Total Protein 5.2 L White Blood Count 40.0 H Medications Medications Current Medications Ondansetron HCl (Zofran Inj) 4 mg Q6H PRN IV NAUSEA AND/OR VOMITING; Start 05/01 at 20:30 Acetaminophen (Tylenol Tab) 650 mg Q6H PRN [place] PAIN LEVEL 1-3 OR FEVER Last administered on 05/06/16 08:23; Admin Dose 650 MG; Start 05/01/16 at 20:30 Acetaminophen (Tylenol Supp) 650 mg Q6H PRN [place] PAIN LEVEL 1-3 OR FEVER; Start 05/01/16 at 20:30 Docusate Sodium (Colace) 100 mg Q12H PRN PO CONSTIPATION Last administered on 11:52; Admin Dose 100 MG; Start 05/01/16 at 20:30 Magnesium Hydroxide (Milk Of Mag) 30 ml DAILY PRN PO CONSTIPATION Last administered on 05/03/16 11:52; Admin Dose 30 ML; Start 05/01/16 at 20:30 Bisacodyl (Dulcolax) 5 mg DAILY PRN PO CONSTIPATION; Start 05/01/16 at 20:30 Bisacodyl (Dulcolax Supp) 10 mg DAILY PRN [place] CONSTIPATION; Start 05/01/16 at 20: 30 Sodium Biphosphate/ Sodium Phosphate (Fleet Enema) 133 ml DAILY PRN [place] CONSTIPATION; Start 05/01/16 at 20:30 Pantoprazole (Protonix Iv) 40 mg DAILY@06 IV Last administered on 05/12/16 06: 33; Admin Dose 40 MG; Start 05/02/16 at 06:00 Tamsulosin HCl (Flomax) 0.4 mg HS PO Last administered on 05/10/16 21:13; Admin Dose 0.4 MG; Start 05/03/16 at 21:00 Aspirin (Aspirin) 325 mg DAILY PO Last administered on 05/09/16 08:08; Admin Dose 325 MG; Start 05/04/16 at 09:00; Status Future Hold Lorazepam (Ativan) 2 mg Q2 PRN IV AGITATION Last administered on 05/09/16 12: 35; Admin Dose 2 MG; Start 05/05/16 at 18:00 Morphine Sulfate 2 mg 2 mg Q2H PRN IV PAIN Last administered on 05/09/16 01:35 ; Admin Dose 2 MG; Start 05/05/16 at 18:00 Piperacillin Sod/ Tazobactam Sod (Zosyn 2.25gm/ 50ml (Pmx)) 50 ml @ 100 mls/hr Q6 IVPB Last administered on 05/12/16 11:48; Admin Dose 100 MLS/HR; Start 01/12 at 12:00 IV Flush (NS 10 ml) 10 ml PRN PRN IV FLUSH LINE; Start 05/06/16 at 13:00 Enoxaparin Sodium 60 mg 60 mg DAILY SC Last administered on 05/12/16 10:01; Admin Dose 60 MG; Start 05/06/16 at 13:30 Norepinephrine 16 mg/Dextrose 500 ml @ 1.87 mls/hr TITRATE IV Last administered on 05/07/16 06:40; Admin Dose 16.83 MLS/HR; Start 05/06/16 at 16: 30 Fluconazole (Diflucan 200 Mg/ NS (Pmx)) 100 ml @ 100 mls/hr Q24H IVPB Last administered on 05/11/16 17:55; Admin Dose 100 MLS/HR; Start 05/07/16 at 18:00 Docusate Sodium (Colace Liquid Cup) 100 mg TID NGT Last administered on 10:02; Admin Dose 100 MG; Start 05/08/16 at 21:00 Polyethylene Glycol (Miralax) 17 gm DAILY GTB Last administered on 05/11/16 10 :03; Admin Dose 17 GM; Start 05/09/16 at 09:00 Carvedilol (Coreg) 3.125 mg BID NGT Last administered on 05/10/16 21:13; Admin Dose 3.125 MG; Start 05/10/16 at 21:00 Hydralazine HCl (Apresoline) 10 mg Q8 PO Last administered on 05/10/16 21:14; Admin Dose 10 MG; Start 05/10/16 at 14:00 Doxycycline Hyclate 100 mg 100 mg BID PO Last administered on 05/11/16 10:02; Admin Dose 100 MG; Start 05/10/16 at 21:00 Dextrose (D5W) 1,000 ml @ 50 mls/hr Q20H IV Last administered on 05/12/16 09: 59; Admin Dose 50 MLS/HR; Start 05/12/16 at 09:30 JOSE G CUNNINGHAM NP May 12, 2016 14:11
[2016-05-12] MEDS: TAMSULOSIN (SR) 0.4 MG CAP PO SCH (21:00)
[2016-05-12] MEDS: FLUCONAZOLE 200 MG/NS (PMX) 100 ML IVPB SCH (21:56)
[2016-05-13] VITALS (13 sets, daily range): BP systolic 104–146; BP diastolic 58–73; PULSE 69–87; RESP 17–20
[2016-05-13] MEDS: PANTOPRAZOLE 40 MG INJ IV SCH (05:36)
[2016-05-13] MEDS: PIPER-TAZO 2.25 GM (PMX) 50 ML IVPB SCH ×2 (05:37→11:33)
[2016-05-13] MEDS: POLYETHYLENE GLYCOL 17 GM PACKET GTB SCH (08:42)
[2016-05-13] MEDS: DOCUSATE SODIUM 10 MG/ML (10ML CUP) NGT SCH ×3 (08:42→21:36)
[2016-05-13] MEDS: DOXYCYCLINE 100 MG TAB PO SCH (08:42)
[2016-05-13] MEDS: ENOXAPARIN 60 MG/0.6 ML SYG SC SCH (08:51)
--- NOTE | 2016-05-13 12:21 | PN ---
DATE: REASON FOR FOLLOWUP: Respiratory failure. SUBJECTIVE: The patient remains largely unchanged. He is confused, not consistently following comm ands. PHYSICAL EXAMINATION: VITAL SIGNS: Temperature 98, pulse 90, blood pressure 131/60, O2 saturation 96% on FIO2 of 3 liters . NECK: Supple. No JVD or lymphadenopathy. Moist mucous membranes. Pupils are equal and reactive t o light. CARDIAC EXAM: S1, S2. No added sounds or murmurs. CHEST: Diminished air entry bilaterally. ABDOMEN: Soft, nontender. No guarding or rebound. EXTREMITIES: No cyanosis, clubbing or edema. NEUROLOGIC: Generalized weakness. LABORATORY: White count 40, hemoglobin 11.4, platelets of 90. BUN 52, creatinine 1.27. Arterial b lood gas is pending at the time of this dictation. Chest x-ray was reviewed, shows mild interstitial edema. IMPRESSION AND PLAN: 1. Status post hypoxemic respiratory failure, with intubation and mechanical ventilation. 2. Significant leukocytosis. Questionable underlying malignancy. 3. Dementia. 4. Dysphagia. 5. History of renal insufficiency. 6. History of chronic obstructive pulmonary disease. The patient will need: 1. Continued broad-spectrum antibiotic coverage. 2. Continue bronchodilators. 3. Consider hematology/oncology evaluation for significant leukocytosis. This is unlikely to be re lated to steroids and/or infection. Dictated By: KAVON BARR/TRACY Conf#: [id number] DID#: [id number]
--- NOTE | 2016-05-13 13:41 | PN ---
Date/Time of Note Date/Time of Note DATE: 05/13/16 TIME: 13:36 Assessment/Plan VTE Prophylaxis VTE Prophylaxis Intervention: SCD's Lines/Catheters IV Catheter Type (from Nrsg): PICC Line Central line still needed: Yes Urinary Cath still in place: Yes Reason Cath still needed: urinary retention Assessment/Plan Chief Complaint/Hosp Course 1. ACUTE RES FAILURE, improvement 2. hypernatremia,better 3. Hypertension, stable. 4. anxiety 5. pt will undergo swallow evaluation for nutrition possible aspiration pneumonia. If family agrees NG tube will be placed for nutrition 6.SEPSIS, increased WBC comparing yesterday, ID per Dr Kapadia 7. Acute renal failure Care was coordinated with dr Kaur and nursing Problems: Assessment/Plan 1. Swallow evaluation and possible NG tube placement 2. Continue A/b, IV hydration Subjective 24 Hr Interval Summary Constitutional: no complaints Eyes: no complaints ENT: no complaints Exam/Review of Systems Vital Signs Vitals Vital Signs Date Time Temp Pulse Resp B/P Pulse Ox O2 Delivery O2 Flow Rate FiO2 05/13/16 12:31 87 05/13/16 11:52 98.4 20 131/58 96 05/13/16 09:38 Nasal Cannula 3.0 05/11/16 10:00 30 Intake and Output 05/12/16 05/12/16 05/13/16 15:00 23:00 07:00 Intake Total 490 ml 100 ml Output Total 1025 ml 525 ml Balance -535 ml -425 ml Exam Constitutional: alert, oriented Psych: no complaints Head: normocephalic Eyes: nl conjunctiva Respiratory: diminished breath sounds Cardiovascular: regular rate and rhythm Gastrointestinal: soft Genitourinary - Male: nl penis Extremities: normal pulses Results Result Diagram: 05/12/165 05/12/16444 Medications Medications Current Medications Ondansetron HCl (Zofran Inj) 4 mg Q6H PRN IV NAUSEA AND/OR VOMITING; Start 05/01 at 20:30 Acetaminophen (Tylenol Tab) 650 mg Q6H PRN PO PAIN LEVEL 1-3 OR FEVER Last administered on 05/06/16 08:23; Admin Dose 650 MG; Start 05/01/16 at 20:30 Acetaminophen (Tylenol Supp) 650 mg Q6H PRN [place] PAIN LEVEL 1-3 OR FEVER; Start 05/01/16 at 20:30 Docusate Sodium (Colace) 100 mg Q12H PRN PO CONSTIPATION Last administered on 11:52; Admin Dose 100 MG; Start 05/01/16 at 20:30 Magnesium Hydroxide (Milk Of Mag) 30 ml DAILY PRN PO CONSTIPATION Last administered on 05/03/16 11:52; Admin Dose 30 ML; Start 05/01/16 at 20:30 Bisacodyl (Dulcolax) 5 mg DAILY PRN PO CONSTIPATION; Start 05/01/16 at 20:30 Bisacodyl (Dulcolax Supp) 10 mg DAILY PRN [place] CONSTIPATION; Start 05/01/16 at 20: 30 Sodium Biphosphate/ Sodium Phosphate (Fleet Enema) 133 ml DAILY PRN [place] CONSTIPATION; Start 05/01/16 at 20:30 Pantoprazole (Protonix Iv) 40 mg DAILY@06 IV Last administered on 05/13/16 05: 36; Admin Dose 40 MG; Start 05/02/16 at 06:00 Tamsulosin HCl (Flomax) 0.4 mg HS PO Last administered on 05/10/16 21:13; Admin Dose 0.4 MG; Start 05/03/16 at 21:00 Aspirin (Aspirin) 325 mg DAILY PO Last administered on 05/09/16 08:08; Admin Dose 325 MG; Start 05/04/16 at 09:00; Status Future Hold Lorazepam (Ativan) 2 mg Q2 PRN IV AGITATION Last administered on 05/09/16 12: 35; Admin Dose 2 MG; Start 05/05/16 at 18:00 Morphine Sulfate 2 mg 2 mg Q2H PRN IV PAIN Last administered on 05/09/16 01:35 ; Admin Dose 2 MG; Start 05/05/16 at 18:00 Piperacillin Sod/ Tazobactam Sod (Zosyn 2.25gm/ 50ml (Pmx)) 50 ml @ 100 mls/hr Q6 IVPB Last administered on 05/13/16 11:33; Admin Dose 100 MLS/HR; Start 01/12 at 12:00 IV Flush (NS 10 ml) 10 ml PRN PRN IV FLUSH LINE; Start 05/06/16 at 13:00 Enoxaparin Sodium 60 mg 60 mg DAILY SC Last administered on 05/13/16 08:51; Admin Dose 60 MG; Start 05/06/16 at 13:30 Fluconazole (Diflucan 200 Mg/ NS (Pmx)) 100 ml @ 100 mls/hr Q24H IVPB Last administered on 05/12/16 21:56; Admin Dose 100 MLS/HR; Start 05/07/16 at 18:00 Docusate Sodium (Colace Liquid Cup) 100 mg TID NGT Last administered on 10:02; Admin Dose 100 MG; Start 05/08/16 at 21:00 Polyethylene Glycol (Miralax) 17 gm DAILY GTB Last administered on 05/11/16 10 :03; Admin Dose 17 GM; Start 05/09/16 at 09:00 Carvedilol (Coreg) 3.125 mg BID NGT Last administered on 05/10/16 21:13; Admin Dose 3.125 MG; Start 05/10/16 at 21:00 Hydralazine HCl (Apresoline) 10 mg Q8 PO Last administered on 05/10/16 21:14; Admin Dose 10 MG; Start 05/10/16 at 14:00 Doxycycline Hyclate 100 mg 100 mg BID PO Last administered on 05/11/16 10:02; Admin Dose 100 MG; Start 05/10/16 at 21:00 Dextrose (D5W) 1,000 ml @ 50 mls/hr Q20H IV Last administered on 05/12/16 21: 55; Admin Dose 50 MLS/HR; Start 05/12/16 at 09:30 WANG BELL 18, 2017 13:40
--- NOTE | 2016-05-13 14:45 | CONS ---
Date/Time of Note Date/Time of Note DATE: 05/13/16 TIME: 14:43 Assessment/Plan Assessment/Plan Additional Assessment/Plan 1. Respiratory failure s/p extubation - better now, stable resp status 2. 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 negative troponin x 3 this admit. s/p lexsican LVEF 22%/no ischemia/prior SC - NO CP, no significant ectopy noted 3. 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 Possible cardiac arrhythmia-PAFL now rate controlled s/p IVP digoxin 5. History of asthma/chronic obstructive pulmonary disease. 6. Glaucoma. 7. History of bradycardia- pacer noted 8. Hypotension-improved off pressors 0- IMPROVED 9. Leukocytosis. 10. Altered mental state. 11. Fevers 12.ARF 14.Hemtauria 15.Hypernatremia Consultation Date/Type/Reason Admit Date/Time May 01, 2016 at 20:18 Initial Consult Date 05/05/16 Type of Consultation: id Referring Provider: HOLLI LINDER MD 24 HR Interval Summary Free Text/Dictation NO acute change - out of ICU to tele - pacer in place - BP stable ROS: No fever, no chills, no nausea, no vomiting, no diarrhea/constipation No recent weight changes No chest pain, no PND, no orthopnea No dizziness, blurred vision No thirst, no heat or cold intolerance Exam/Review of Systems Vital Signs Vitals Vital Signs Date Time Temp Pulse Resp B/P Pulse Ox O2 Delivery O2 Flow Rate FiO2 05/13/16 12:31 87 05/13/16 11:52 98.4 20 131/58 96 05/13/16 09:38 Nasal Cannula 3.0 05/11/16 10:00 30 Intake and Output 05/12/16 05/12/16 05/13/16 15:00 23:00 07:00 Intake Total 490 ml 100 ml Output Total 1025 ml 525 ml Balance -535 ml -425 ml Exam General: WN/WD/NAD, AOx 0 HEENT: Unicetric/atraumatic/EOMI (does not follow commands) NECK: JVD elevated, no thyromegaly Lymph: no lymphadenopathy HEART: regular with no S3, II/ systolic murmur at apex LUNGS: Coarse sounds ABD: soft, NT, ND, +BS : Intact Neuro: non focal SKIN: chronic changes EXT: trace edema Results Result Diagram: 05/12/1644405/12/16444 Medications Medications Current Medications Ondansetron HCl (Zofran Inj) 4 mg Q6H PRN IV NAUSEA AND/OR VOMITING; Start 05/01 at 20:30 Acetaminophen (Tylenol Tab) 650 mg Q6H PRN PO PAIN LEVEL 1-3 OR FEVER Last administered on 05/06/16 08:23; Admin Dose 650 MG; Start 05/01/16 at 20:30 Acetaminophen (Tylenol Supp) 650 mg Q6H PRN [place] PAIN LEVEL 1-3 OR FEVER; Start 05/01/16 at 20:30 Docusate Sodium (Colace) 100 mg Q12H PRN PO CONSTIPATION Last administered on 11:52; Admin Dose 100 MG; Start 05/01/16 at 20:30 Magnesium Hydroxide (Milk Of Mag) 30 ml DAILY PRN PO CONSTIPATION Last administered on 05/03/16 11:52; Admin Dose 30 ML; Start 05/01/16 at 20:30 Bisacodyl (Dulcolax) 5 mg DAILY PRN PO CONSTIPATION; Start 05/01/16 at 20:30 Bisacodyl (Dulcolax Supp) 10 mg DAILY PRN [place] CONSTIPATION; Start 05/01/16 at 20: 30 Sodium Biphosphate/ Sodium Phosphate (Fleet Enema) 133 ml DAILY PRN [place] CONSTIPATION; Start 05/01/16 at 20:30 Pantoprazole (Protonix Iv) 40 mg DAILY@06 IV Last administered on 05/13/16 05: 36; Admin Dose 40 MG; Start 05/02/16 at 06:00 Tamsulosin HCl (Flomax) 0.4 mg HS PO Last administered on 05/10/16 21:13; Admin Dose 0.4 MG; Start 05/03/16 at 21:00 Aspirin (Aspirin) 325 mg DAILY PO Last administered on 05/09/16 08:08; Admin Dose 325 MG; Start 05/04/16 at 09:00; Status Future Hold Lorazepam (Ativan) 2 mg Q2 PRN IV AGITATION Last administered on 05/09/16 12: 35; Admin Dose 2 MG; Start 05/05/16 at 18:00 Morphine Sulfate 2 mg 2 mg Q2H PRN IV PAIN Last administered on 05/09/16 01:35 ; Admin Dose 2 MG; Start 05/05/16 at 18:00 Piperacillin Sod/ Tazobactam Sod (Zosyn 2.25gm/ 50ml (Pmx)) 50 ml @ 100 mls/hr Q6 IVPB Last administered on 05/13/16 11:33; Admin Dose 100 MLS/HR; Start 01/12 at 12:00 IV Flush (NS 10 ml) 10 ml PRN PRN IV FLUSH LINE; Start 05/06/16 at 13:00 Enoxaparin Sodium 60 mg 60 mg DAILY SC Last administered on 05/13/16 08:51; Admin Dose 60 MG; Start 05/06/16 at 13:30 Fluconazole (Diflucan 200 Mg/ NS (Pmx)) 100 ml @ 100 mls/hr Q24H IVPB Last administered on 05/12/16 21:56; Admin Dose 100 MLS/HR; Start 05/07/16 at 18:00 Docusate Sodium (Colace Liquid Cup) 100 mg TID NGT Last administered on 10:02; Admin Dose 100 MG; Start 05/08/16 at 21:00 Polyethylene Glycol (Miralax) 17 gm DAILY GTB Last administered on 05/11/16 10 :03; Admin Dose 17 GM; Start 05/09/16 at 09:00 Carvedilol (Coreg) 3.125 mg BID NGT Last administered on 05/10/16 21:13; Admin Dose 3.125 MG; Start 05/10/16 at 21:00 Hydralazine HCl (Apresoline) 10 mg Q8 PO Last administered on 05/10/16 21:14; Admin Dose 10 MG; Start 05/10/16 at 14:00 Doxycycline Hyclate 100 mg 100 mg BID PO Last administered on 05/11/16 10:02; Admin Dose 100 MG; Start 05/10/16 at 21:00 Dextrose (D5W) 1,000 ml @ 50 mls/hr Q20H IV Last administered on 05/12/16 21: 55; Admin Dose 50 MLS/HR; Start 05/12/16 at 09:30 ZEUS CHAPPELL MD May 13, 2016 14:44
--- NOTE | 2016-05-13 15:19 | CONS ---
Date/Time of Note Date/Time of Note DATE: 05/13/16 TIME: 15:18 Assessment/Plan Assessment/Plan Chief Complaint/Hosp Course SUBJECTIVE: lethargic, lying comfortably in bed. No fevers. INDWELLINGS: Alfonso catheter, PICC line placed on 05/06. ANTIMICROBIALS: 1. Fluconazole. 2. Zosyn. 3. Doxycycline PHYSICAL EXAMINATION: GENERAL: This is a chronically ill-appearing, elderly man who is lying comfortably in bed. HEENT: Head atraumatic, normocephalic. Sclerae anicteric. Buccal mucosa dry. NECK: Supple, trachea midline. CHEST: Rise symmetrical. Breath sounds diminished to bases. HEART: S1, S2. ABDOMEN: Soft, bowel tones present. EXTREMITIES: Without cyanosis. ASSESSMENT: 1. Acute hypoxemic respiratory failure==> extubated. 2. Possible aspiration pneumonia. 3. Acute renal failure. 4. Chronic obstructive pulmonary disease exacerbation. 5. Hypertension 6. History of benign prostatic hypertrophy. 7. Leukocytosis==> s/p steroids ?Leukemoid r-n ? C dif. PLAN: Clinically stable, will start empiric Flagyl, dc abx, f/u repeat cx's, continue abx, aspiration precautions, f/u pulmonary/card rec-s DW staff Problems: Consultation Date/Type/Reason Admit Date/Time May 01, 2016 at 20:18 Initial Consult Date 05/05/16 Type of Consultation: id Referring Provider: HOLLI LINDER MD Exam/Review of Systems Vital Signs Vitals Vital Signs Date Time Temp Pulse Resp B/P Pulse Ox O2 Delivery O2 Flow Rate FiO2 05/13/16 12:31 87 05/13/16 11:52 98.4 20 131/58 96 05/13/16 09:38 Nasal Cannula 3.0 05/11/16 10:00 30 Intake and Output 05/12/16 05/12/16 05/13/16 15:00 23:00 07:00 Intake Total 490 ml 100 ml Output Total 1025 ml 525 ml Balance -535 ml -425 ml Results Result Diagram: 05/12/16 0445 05/12/165 Medications Medications Current Medications Ondansetron HCl (Zofran Inj) 4 mg Q6H PRN IV NAUSEA AND/OR VOMITING; Start 05/01 at 20:30 Acetaminophen (Tylenol Tab) 650 mg Q6H PRN PO PAIN LEVEL 1-3 OR FEVER Last administered on 05/06/16 08:23; Admin Dose 650 MG; Start 05/01/16 at 20:30 Acetaminophen (Tylenol Supp) 650 mg Q6H PRN [place] PAIN LEVEL 1-3 OR FEVER; Start 05/01/16 at 20:30 Docusate Sodium (Colace) 100 mg Q12H PRN PO CONSTIPATION Last administered on 11:52; Admin Dose 100 MG; Start 05/01/16 at 20:30 Magnesium Hydroxide (Milk Of Mag) 30 ml DAILY PRN PO CONSTIPATION Last administered on 05/03/16 11:52; Admin Dose 30 ML; Start 05/01/16 at 20:30 Bisacodyl (Dulcolax) 5 mg DAILY PRN PO CONSTIPATION; Start 05/01/16 at 20:30 Bisacodyl (Dulcolax Supp) 10 mg DAILY PRN [place] CONSTIPATION; Start 05/01/16 at 20: 30 Sodium Biphosphate/ Sodium Phosphate (Fleet Enema) 133 ml DAILY PRN [place] CONSTIPATION; Start 05/01/16 at 20:30 Pantoprazole (Protonix Iv) 40 mg DAILY@06 IV Last administered on 05/13/16 05: 36; Admin Dose 40 MG; Start 05/02/16 at 06:00 Tamsulosin HCl (Flomax) 0.4 mg HS PO Last administered on 05/10/16 21:13; Admin Dose 0.4 MG; Start 05/03/16 at 21:00 Aspirin (Aspirin) 325 mg DAILY PO Last administered on 05/09/16 08:08; Admin Dose 325 MG; Start 05/04/16 at 09:00; Status Future Hold Lorazepam (Ativan) 2 mg Q2 PRN IV AGITATION Last administered on 05/09/16 12: 35; Admin Dose 2 MG; Start 05/05/16 at 18:00 Morphine Sulfate 2 mg 2 mg Q2H PRN IV PAIN Last administered on 05/09/16 01:35 ; Admin Dose 2 MG; Start 05/05/16 at 18:00 Piperacillin Sod/ Tazobactam Sod (Zosyn 2.25gm/ 50ml (Pmx)) 50 ml @ 100 mls/hr Q6 IVPB Last administered on 05/13/16 11:33; Admin Dose 100 MLS/HR; Start 01/12 at 12:00 IV Flush (NS 10 ml) 10 ml PRN PRN IV FLUSH LINE; Start 05/06/16 at 13:00 Enoxaparin Sodium 60 mg 60 mg DAILY SC Last administered on 05/13/16 08:51; Admin Dose 60 MG; Start 05/06/16 at 13:30 Fluconazole (Diflucan 200 Mg/ NS (Pmx)) 100 ml @ 100 mls/hr Q24H IVPB Last administered on 05/12/16 21:56; Admin Dose 100 MLS/HR; Start 05/07/16 at 18:00 Docusate Sodium (Colace Liquid Cup) 100 mg TID NGT Last administered on 10:02; Admin Dose 100 MG; Start 05/08/16 at 21:00 Polyethylene Glycol (Miralax) 17 gm DAILY GTB Last administered on 05/11/16 10 :03; Admin Dose 17 GM; Start 05/09/16 at 09:00 Carvedilol (Coreg) 3.125 mg BID NGT Last administered on 05/10/16 21:13; Admin Dose 3.125 MG; Start 05/10/16 at 21:00 Hydralazine HCl (Apresoline) 10 mg Q8 PO Last administered on 05/10/16 21:14; Admin Dose 10 MG; Start 05/10/16 at 14:00 Doxycycline Hyclate 100 mg 100 mg BID PO Last administered on 05/11/16 10:02; Admin Dose 100 MG; Start 05/10/16 at 21:00 Dextrose (D5W) 1,000 ml @ 50 mls/hr Q20H IV Last administered on 05/12/16 21: 55; Admin Dose 50 MLS/HR; Start 05/12/16 at 09:30 JOSE G CUNNINGHAM NP May 13, 2016 15:19
[2016-05-13] MEDS: FLUCONAZOLE 200 MG/NS (PMX) 100 ML IVPB SCH (17:37)
--- NOTE | 2016-05-13 21:16 | RADRPT ---
PROCEDURE: XR Chest. CLINICAL INDICATION: Check nasogastric tube position. TECHNIQUE: Single frontal view. COMPARISON: 05/11/2016. FINDINGS: The nasogastric tube tip is in the stomach and the left arm PICC line tip is in the superior vena ca va. The endotracheal tube has been removed. The right side permanent pacemaker with leads in the r ight atrium and right ventricle is unchanged. Mild interstitial disease at the lung bases is slight ly worse than seen previously. The lungs are otherwise clear. The heart size is normal. There is calcification in the aorta consistent with atherosclerosis. There are new small bilateral pleural effusions. There is no pneumothorax. IMPRESSION: 1. Nasogastric tube tip in the stomach. 2. Endotracheal tube removed. 3. New small bilateral pleural effusions. 4. Slightly worse appearance of the lung bases. RPTAT: QQ .Henrik Reyna MD, MD Date Time Electronically viewed and signed by .Henrik Reyna MD, on 05/13/2016 21:16 .R/
[2016-05-13] MEDS: TAMSULOSIN (SR) 0.4 MG CAP PO SCH (21:35)
[2016-05-13] MEDS: metroNIDAZOLE 500 MG TAB NGT SCH (21:36)
[2016-05-13] MEDS: DEXTROSE 5% 1,000 ML IV SCH (22:16)
--- NOTE | 2016-05-13 23:56 | RADRPT ---
PROCEDURE: XR Chest. CLINICAL INDICATION: Nasogastric tube placement. TECHNIQUE: Single frontal view of the chest was obtained COMPARISON: Plain film chest dated 05/13/2016. FINDINGS: New nasogastric tube again seen with tip and sideport likely in the distal stomach versus proximal d uodenum. Tip and side port off the bottom of the film. Right anterior chest wall dual chamber cardiac pacer again seen with lead tips overlying the expecte d location the right atrium right ventricle, without significant change in position over interval. Left central venous line again seen with tip in the right atrium, and the tip appears to have been a dvanced over interval. Recommend withdrawing same about 5 cm and re-imaging. Cardiomegaly and atherosclerotic calcifications in the tortuous thoracic aorta. Mild bilateral patc hy air space disease and small bilateral pleural effusions. There is no pneumothorax. IMPRESSION: 1. New nasogastric tube in place with tip and sideport likely in the distal stomach versus proximal duodenum. 2. Mild bibasilar air space disease and small bilateral pleural effusions. 3. Recommend withdrawing left central venous line about 5 cm and re-imaging, and is tip currently p rojects over expected location of the right atrium. RPTAT: [facility] Physician Blessing Date Time Electronically viewed and signed by Physician Blessing on 05/13/2016 23:56 RS/
[2016-05-14] VITALS (13 sets, daily range): BP systolic 87–116; BP diastolic 51–57; PULSE 66–88; RESP 16–18
[2016-05-14] MEDS: DEXTROSE 5% 1,000 ML IV SCH ×2 (01:30→21:30)
[2016-05-14] MEDS: PANTOPRAZOLE 40 MG INJ IV SCH (05:30)
[2016-05-14] MEDS: metroNIDAZOLE 500 MG TAB NGT SCH ×3 (05:30→22:07)
[2016-05-14 07:47] LABS: ADD SCAN DIFF NO
[2016-05-14 07:59] LABS: ABNORMAL IP MESSAGE 1; HEMOGLOBIN 11.3 g/dl (14.0-18.0); MEAN CORPUSCULAR HEMOGLOBIN 29.8 pg (29.0-33.0); MEAN CORPUSCULAR HGB CONC 30.5 g/dl (32.0-37.0); MEAN CORPUSCULAR VOLUME 97.6 fl (82.0-101.0); MEAN PLATELET VOLUME 13.2 fl (7.4-10.4); PLATELET COUNT 140 10^3/UL (140-415); RED BLOOD COUNT 3.79 10^6/ul (4.70-6.10); RED CELL DISTRIBUTION WIDTH 14.5 % (11.5-14.5); WHITE BLOOD COUNT 24.8 10^3/ul (4.8-10.8)
[2016-05-14 08:30] LABS: POTASSIUM 3.2 mmol/L (3.5-5.1)
[2016-05-14 08:32] LABS: CREATININE 1.5 mg/dl (0.61-1.24)
[2016-05-14 08:33] LABS: PHOSPHORUS 3.6 mg/dl (2.5-4.9)
[2016-05-14 08:34] LABS: CALCIUM 7.9 mg/dl (8.4-10.2); MAGNESIUM 2.2 mg/dl (1.7-2.5)
[2016-05-14] MEDS: POLYETHYLENE GLYCOL 17 GM PACKET GTB SCH (08:34)
[2016-05-14] MEDS: DOCUSATE SODIUM 10 MG/ML (10ML CUP) NGT SCH ×3 (08:34→21:00)
[2016-05-14] MEDS: ENOXAPARIN 60 MG/0.6 ML SYG SC SCH (08:39)
[2016-05-14 09:21] LABS: LYMPHOCYTES # 0.7 10^3/ul (0.8-2.9); MONOCYTE # 0.2 10^3/ul (0.3-0.9); NEUTROPHIL # 23.8 10^3/ul (1.6-7.5)
[2016-05-14] MEDS: POTASSIUM CHLORIDE 50 ML IVPB SCH ×3 (12:09→13:55)
--- NOTE | 2016-05-14 15:09 | PN ---
Date/Time of Note Date/Time of Note DATE: 05/14/16 TIME: 15:06 Assessment/Plan VTE Prophylaxis VTE Prophylaxis Intervention: other Lines/Catheters IV Catheter Type (from Nrs): PICC Line Central line still needed: Yes Urinary Cath still in place: Yes Reason Cath still needed: other (indicate) Assessment/Plan Chief Complaint/Hosp Course IMPRESSION: The patient has 1. s/p ACUTE RES FAILURE 2. hypernatremia better 3. Hypertension. 4. anxiety 5. PACEMAKER HX 6 low ef 7 leucocytosis 8 RHINA 9 hypokalemia 10 SEPSIS plan cardio eval kcl peg Problems: Subjective 24 Hr Interval Summary Subjective hx not possible: other (weakness,will need peg family refused for now) Exam/Review of Systems Vital Signs Vitals Vital Signs Date Time Temp Pulse Resp B/P Pulse Ox O2 Delivery O2 Flow Rate FiO2 05/14/16 12:07 73 05/14/16 12:03 97.8 18 97/54 94 05/14/16 08:28 3.0 05/14/16 08:00 Nasal Cannula 05/11/16 10:00 30 Intake and Output 05/13/16 05/13/16 05/14/16 15:00 23:00 07:00 Intake Total 700 ml 960 ml Output Total 500 ml 400 ml Balance 200 ml 560 ml Exam Respiratory: diminished breath sounds Cardiovascular: regular rate and rhythm Gastrointestinal: soft Musculoskeletal: nl extremities to inspection Extremities: normal pulses Results Result Diagram: 05/14/16 0644 05/14/16 0643 Results 24 hrs Laboratory Tests Test 05/14/16 06:43 05/14/16 06:44 Anion Gap 14 Blood Urea Nitrogen 44 H Calcium Level 7.9 L Carbon Dioxide Level 26 Chloride Level 111 H Creatinine 1.50 H Glucose Level 152 Magnesium Level 2.2 Phosphorus Level 3.6 Potassium Level 3.2 L Sodium Level 148 H Hematocrit 37.0 L Hemoglobin 11.3 L Lymphocytes # 0.7 L Lymphocytes % 3.0 L Mean Corpuscular Hemoglobin 29.8 Mean Corpuscular Hemoglobin Concent 30.5 L Mean Corpuscular Volume 97.6 Mean Platelet Volume 13.2 H Monocytes # 0.2 L Monocytes % 1.0 Neutrophils # 23.8 H Neutrophils % 96.0 H Platelet Count 140 # Red Blood Count 3.79 L Red Cell Distribution Width 14.5 White Blood Count 24.8 #H Medications Medications Current Medications Ondansetron HCl (Zofran Inj) 4 mg Q6H PRN IV NAUSEA AND/OR VOMITING; Start 05/01 at 20:30 Acetaminophen (Tylenol Tab) 650 mg Q6H PRN PO PAIN LEVEL 1-3 OR FEVER Last administered on 05/06/16 08:23; Admin Dose 650 MG; Start 05/01/16 at 20:30 Acetaminophen (Tylenol Supp) 650 mg Q6H PRN [place] PAIN LEVEL 1-3 OR FEVER; Start 05/01/16 at 20:30 Docusate Sodium (Colace) 100 mg Q12H PRN PO CONSTIPATION Last administered on 11:52; Admin Dose 100 MG; Start 05/01/16 at 20:30 Magnesium Hydroxide (Milk Of Mag) 30 ml DAILY PRN PO CONSTIPATION Last administered on 05/03/16 11:52; Admin Dose 30 ML; Start 05/01/16 at 20:30 Bisacodyl (Dulcolax) 5 mg DAILY PRN PO CONSTIPATION; Start 05/01/16 at 20:30 Bisacodyl (Dulcolax Supp) 10 mg DAILY PRN [place] CONSTIPATION; Start 05/01/16 at 20: 30 Sodium Biphosphate/ Sodium Phosphate (Fleet Enema) 133 ml DAILY PRN [place] CONSTIPATION; Start 05/01/16 at 20:30 Pantoprazole (Protonix Iv) 40 mg DAILY@06 IV Last administered on 05/14/16 05: 30; Admin Dose 40 MG; Start 05/02/16 at 06:00 Tamsulosin HCl (Flomax) 0.4 mg HS PO Last administered on 05/13/16 21:35; Admin Dose 0.4 MG; Start 05/03/16 at 21:00 Aspirin (Aspirin) 325 mg DAILY PO Last administered on 05/09/16 08:08; Admin Dose 325 MG; Start 05/04/16 at 09:00; Status Future Hold Lorazepam (Ativan) 2 mg Q2 PRN IV AGITATION Last administered on 05/09/16 12: 35; Admin Dose 2 MG; Start 05/05/16 at 18:00 Morphine Sulfate (morphine) 2 mg Q2H PRN IV PAIN Last administered on 01:35; Admin Dose 2 MG; Start 05/05/16 at 18:00 IV Flush (NS 10 ml) 10 ml PRN PRN IV FLUSH LINE; Start 05/06/16 at 13:00 Enoxaparin Sodium 60 mg 60 mg DAILY SC Last administered on 05/14/16 08:39; Admin Dose 60 MG; Start 05/06/16 at 13:30 Fluconazole (Diflucan 200 Mg/ NS (Pmx)) 100 ml @ 100 mls/hr Q24H IVPB Last administered on 05/13/16 17:37; Admin Dose 100 MLS/HR; Start 05/07/16 at 18:00 Docusate Sodium (Colace Liquid Cup) 100 mg TID NGT Last administered on 08:34; Admin Dose 100 MG; Start 05/08/16 at 21:00 Polyethylene Glycol (Miralax) 17 gm DAILY GTB Last administered on 05/14/16 08 :34; Admin Dose 17 GM; Start 05/09/16 at 09:00 Carvedilol (Coreg) 3.125 mg BID NGT Last administered on 05/13/16 21:35; Admin Dose 3.125 MG; Start 05/10/16 at 21:00 Hydralazine HCl 10 mg 10 mg Q8 PO Last administered on 05/13/16 21:36; Admin Dose 10 MG; Start 05/10/16 at 14:00 Dextrose (D5W) 1,000 ml @ 50 mls/hr Q20H IV Last administered on 05/13/16 22: 16; Admin Dose 50 MLS/HR; Start 05/12/16 at 09:30 Metronidazole (Flagyl) 500 mg Q8 NGT Last administered on 05/14/16 13:51; Admin Dose 500 MG; Start 05/13/16 at 22:00 HOLLI LINDER MD May 14, 2016 15:09
--- NOTE | 2016-05-14 15:29 | CONS ---
Date/Time of Note Date/Time of Note DATE: 05/14/16 TIME: 15:28 Assessment/Plan Assessment/Plan Chief Complaint/Hosp Course SUBJECTIVE: lethargic, opens eyes to voice, lying comfortably in bed. No fevers. INDWELLINGS: Alfonso catheter, PICC line placed on 05/06. ANTIMICROBIALS: Flagyl, Diflucan PHYSICAL EXAMINATION: GENERAL: This is a chronically ill-appearing, elderly man who is lying comfortably in bed. HEENT: Head atraumatic, normocephalic. Sclerae anicteric. Buccal mucosa dry. NECK: Supple, trachea midline. CHEST: Rise symmetrical. Breath sounds diminished to bases. HEART: S1, S2. ABDOMEN: Soft, bowel tones present. EXTREMITIES: Without cyanosis. ASSESSMENT: 1. Acute hypoxemic respiratory failure==> extubated. 2. Possible aspiration pneumonia. 3. Acute renal failure. 4. Chronic obstructive pulmonary disease exacerbation. 5. Hypertension 6. History of benign prostatic hypertrophy. 7. Leukocytosis==> s/p steroids ?Leukemoid r-n ? C dif. PLAN: Clinically stable, wbc decreasing, continue abx, aspiration precautions , f/u pulmonary/card rec-s DW staff Problems: Consultation Date/Type/Reason Admit Date/Time May 01, 2016 at 20:18 Initial Consult Date 05/05/16 Type of Consultation: id Referring Provider: HOLLI LINDER MD Exam/Review of Systems Vital Signs Vitals Vital Signs Date Time Temp Pulse Resp B/P Pulse Ox O2 Delivery O2 Flow Rate FiO2 05/14/16 15:23 3.0 05/14/16 12:07 73 05/14/16 12:03 97.8 18 97/54 94 05/14/16 08:00 Nasal Cannula 05/11/16 10:00 30 Intake and Output 05/13/16 05/13/16 05/14/16 15:00 23:00 07:00 Intake Total 700 ml 960 ml Output Total 500 ml 400 ml Balance 200 ml 560 ml Results Result Diagram: 05/14/16 0644 05/14/16 0643 Results 24 hrs Laboratory Tests Test 05/14/16 06:43 05/14/16 06:44 Anion Gap 14 Blood Urea Nitrogen 44 H Calcium Level 7.9 L Carbon Dioxide Level 26 Chloride Level 111 H Creatinine 1.50 H Glucose Level 152 Magnesium Level 2.2 Phosphorus Level 3.6 Potassium Level 3.2 L Sodium Level 148 H Hematocrit 37.0 L Hemoglobin 11.3 L Lymphocytes # 0.7 L Lymphocytes % 3.0 L Mean Corpuscular Hemoglobin 29.8 Mean Corpuscular Hemoglobin Concent 30.5 L Mean Corpuscular Volume 97.6 Mean Platelet Volume 13.2 H Monocytes # 0.2 L Monocytes % 1.0 Neutrophils # 23.8 H Neutrophils % 96.0 H Platelet Count 140 # Red Blood Count 3.79 L Red Cell Distribution Width 14.5 White Blood Count 24.8 #H Medications Medications Current Medications Ondansetron HCl (Zofran Inj) 4 mg Q6H PRN IV NAUSEA AND/OR VOMITING; Start 05/01 at 20:30 Acetaminophen (Tylenol Tab) 650 mg Q6H PRN PO PAIN LEVEL 1-3 OR FEVER Last administered on 05/06/16 08:23; Admin Dose 650 MG; Start 05/01/16 at 20:30 Acetaminophen (Tylenol Supp) 650 mg Q6H PRN [place] PAIN LEVEL 1-3 OR FEVER; Start 05/01/16 at 20:30 Docusate Sodium (Colace) 100 mg Q12H PRN PO CONSTIPATION Last administered on 11:52; Admin Dose 100 MG; Start 05/01/16 at 20:30 Magnesium Hydroxide (Milk Of Mag) 30 ml DAILY PRN PO CONSTIPATION Last administered on 05/03/16 11:52; Admin Dose 30 ML; Start 05/01/16 at 20:30 Bisacodyl (Dulcolax) 5 mg DAILY PRN PO CONSTIPATION; Start 05/01/16 at 20:30 Bisacodyl (Dulcolax Supp) 10 mg DAILY PRN [place] CONSTIPATION; Start 05/01/16 at 20: 30 Sodium Biphosphate/ Sodium Phosphate (Fleet Enema) 133 ml DAILY PRN [place] CONSTIPATION; Start 05/01/16 at 20:30 Pantoprazole (Protonix Iv) 40 mg DAILY@06 IV Last administered on 05/14/16 05: 30; Admin Dose 40 MG; Start 05/02/16 at 06:00 Tamsulosin HCl (Flomax) 0.4 mg HS PO Last administered on 05/13/16 21:35; Admin Dose 0.4 MG; Start 05/03/16 at 21:00 Aspirin (Aspirin) 325 mg DAILY PO Last administered on 05/09/16 08:08; Admin Dose 325 MG; Start 05/04/16 at 09:00; Status Future Hold Lorazepam (Ativan) 2 mg Q2 PRN IV AGITATION Last administered on 05/09/16 12: 35; Admin Dose 2 MG; Start 05/05/16 at 18:00 Morphine Sulfate (morphine) 2 mg Q2H PRN IV PAIN Last administered on 01:35; Admin Dose 2 MG; Start 05/05/16 at 18:00 IV Flush (NS 10 ml) 10 ml PRN PRN IV FLUSH LINE; Start 05/06/16 at 13:00 Enoxaparin Sodium 60 mg 60 mg DAILY SC Last administered on 05/14/16 08:39; Admin Dose 60 MG; Start 05/06/16 at 13:30 Fluconazole (Diflucan 200 Mg/ NS (Pmx)) 100 ml @ 100 mls/hr Q24H IVPB Last administered on 05/13/16 17:37; Admin Dose 100 MLS/HR; Start 05/07/16 at 18:00 Docusate Sodium (Colace Liquid Cup) 100 mg TID NGT Last administered on 08:34; Admin Dose 100 MG; Start 05/08/16 at 21:00 Polyethylene Glycol (Miralax) 17 gm DAILY GTB Last administered on 05/14/16 08 :34; Admin Dose 17 GM; Start 05/09/16 at 09:00 Carvedilol (Coreg) 3.125 mg BID NGT Last administered on 05/13/16 21:35; Admin Dose 3.125 MG; Start 05/10/16 at 21:00 Hydralazine HCl 10 mg 10 mg Q8 PO Last administered on 05/13/16 21:36; Admin Dose 10 MG; Start 05/10/16 at 14:00 Dextrose (D5W) 1,000 ml @ 50 mls/hr Q20H IV Last administered on 05/13/16 22: 16; Admin Dose 50 MLS/HR; Start 05/12/16 at 09:30 Metronidazole (Flagyl) 500 mg Q8 NGT Last administered on 05/14/16 13:51; Admin Dose 500 MG; Start 05/13/16 at 22:00 JOSE G CUNNINGHAM NP May 14, 2016 15:29
--- NOTE | 2016-05-14 17:19 | PN ---
DATE: 05/14/2016 SUBJECTIVE: Patient now remains clinically stable, still confused, which may be his baseline. PHYSICAL EXAMINATION: VITAL SIGNS: Temperature 98, pulse is 73, blood pressure 97/54, O2 saturation 96% on 3 liters. NECK: Supple. No JVD or lymphadenopathy. CARDIAC: S1, S2, II/ systolic ejection murmur. CHEST: Diminished air entry bilaterally. ABDOMEN: Soft, nontender. No guarding or rebound. EXTREMITIES: No cyanosis, clubbing. Edema +1. NEUROLOGIC: Unable to assess. LABORATORY DATA: White count 24.8, hemoglobin 11.3, platelets of 140. Chemistry: Sodium 148, pota ssium 3.2, BUN 44, creatinine 1.5. IMAGING: Chest x-ray was reviewed, shows small bilateral pleural effusions. IMPRESSION AND PLAN: 1. Status post hypoxemic respiratory failure. 2. Possible aspiration pneumonia. 3. Encephalopathy, possible component of underlying dementia. 4. History of dysphagia. PLAN: 1. Continue antibiotics. 2. Aspiration precautions. 3. Correct electrolyte disturbance. 4. Discuss goals of care with the patient's family. Overall prognosis is guarded. Dictated By: KAVON TROY MD SV/NTS Conf#: [id number] DID#: [id number] CC: HOLLI LINDER MD;*EndCC*
[2016-05-14] MEDS: FLUCONAZOLE 200 MG/NS (PMX) 100 ML IVPB SCH (18:01)
--- NOTE | 2016-05-14 19:03 | RADRPT ---
PROCEDURE: XR Chest. CLINICAL INDICATION: Shortness of breath. TECHNIQUE: Single frontal view. COMPARISON: 05/13/2016. FINDINGS: The nasogastric tube tip is in the stomach and the left arm PICC line tip is in the superior vena ca va. There is a right-sided dual lead permanent pacemaker, unchanged. The heart is enlarged. There is calcification in the aorta consistent with atherosclerosis. Mild atelectasis at the lung bases is worse than seen previously. Superimposed pneumonia cannot be excluded. The lungs are otherwise clear. There are small bilateral pleural effusions. There is no pneumothorax. IMPRESSION: 1. Worse appearance of the lung bases. 2. No other change from 05/13/2016. RPTAT: QQ .Henrik Reyna MD, MD Date Time Electronically viewed and signed by .Henrik Reyna MD, MD on 05/14/2016 19:03 .R/
--- NOTE | 2016-05-14 19:13 | CONS ---
Date/Time of Note Date/Time of Note DATE: 05/14/16 TIME: 19:11 Assessment/Plan Assessment/Plan Additional Assessment/Plan 1. Respiratory failure s/p extubation - better now, stable resp status - pulmonary team follows 2. 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 negative troponin x 3 this admit. s/p lexsican LVEF 22%/no ischemia/prior PA - NO CP, no significant ectopy noted 3. 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 Possible cardiac arrhythmia-PAFL now rate controlled s/p IVP digoxin 5. History of asthma/chronic obstructive pulmonary disease. 6. Glaucoma. 7. History of bradycardia- pacer noted 8. Hypotension-improved off pressors - IMPROVED 9. Leukocytosis - on antibx per ID 10. Altered mental state- lethargic,. 11. Fevers 12.ARF 14.Hemtauria 15.Hypernatremia Consultation Date/Type/Reason Admit Date/Time May 01, 2016 at 20:18 Initial Consult Date 05/05/16 Type of Consultation: id Referring Provider: HOLLI LINDER MD 24 HR Interval Summary Free Text/Dictation NO acute change - VS stable - lethargic. On anti-bx. Resp Rx in place. ROS: No fever, no chills, no nausea, no vomiting, no diarrhea/constipation No recent weight changes No chest pain, no PND, no orthopnea No dizziness, blurred vision No thirst, no heat or cold intolerance (per nurse) Exam/Review of Systems Vital Signs Vitals Vital Signs Date Time Temp Pulse Resp B/P Pulse Ox O2 Delivery O2 Flow Rate FiO2 05/14/16 16:13 98.1 72 18 101/52 93 05/14/16 15:23 3.0 05/14/16 08:00 Nasal Cannula 05/11/16 10:00 30 Intake and Output 05/13/16 05/13/16 05/14/16 15:00 23:00 07:00 Intake Total 700 ml 960 ml Output Total 500 ml 400 ml Balance 200 ml 560 ml Exam General: WN/WD/NAD, AOx 0 HEENT: Unicetric/atraumatic/EOMI (does not follow commands) NECK: JVD elevated, no thyromegaly Lymph: no lymphadenopathy HEART: regular with no S3, II/ systolic murmur at apex LUNGS: Coarse sounds ABD: soft, NT, ND, +BS : Intact Neuro: non focal SKIN: chronic changes EXT: trace edema Results Result Diagram: 05/14/16 0644 05/14/16 0643 Results 24 hrs Laboratory Tests Test 05/14/16 06:43 05/14/16 06:44 Anion Gap 14 Blood Urea Nitrogen 44 H Calcium Level 7.9 L Carbon Dioxide Level 26 Chloride Level 111 H Creatinine 1.50 H Glucose Level 152 Magnesium Level 2.2 Phosphorus Level 3.6 Potassium Level 3.2 L Sodium Level 148 H Hematocrit 37.0 L Hemoglobin 11.3 L Lymphocytes # 0.7 L Lymphocytes % 3.0 L Mean Corpuscular Hemoglobin 29.8 Mean Corpuscular Hemoglobin Concent 30.5 L Mean Corpuscular Volume 97.6 Mean Platelet Volume 13.2 H Monocytes # 0.2 L Monocytes % 1.0 Neutrophils # 23.8 H Neutrophils % 96.0 H Platelet Count 140 # Red Blood Count 3.79 L Red Cell Distribution Width 14.5 White Blood Count 24.8 #H Medications Medications Current Medications Ondansetron HCl (Zofran Inj) 4 mg Q6H PRN IV NAUSEA AND/OR VOMITING; Start 05/01 at 20:30 Acetaminophen (Tylenol Tab) 650 mg Q6H PRN PO PAIN LEVEL 1-3 OR FEVER Last administered on 05/06/16 08:23; Admin Dose 650 MG; Start 05/01/16 at 20:30 Acetaminophen (Tylenol Supp) 650 mg Q6H PRN [place] PAIN LEVEL 1-3 OR FEVER; Start 05/01/16 at 20:30 Docusate Sodium (Colace) 100 mg Q12H PRN PO CONSTIPATION Last administered on 11:52; Admin Dose 100 MG; Start 05/01/16 at 20:30 Magnesium Hydroxide (Milk Of Mag) 30 ml DAILY PRN PO CONSTIPATION Last administered on 05/03/16 11:52; Admin Dose 30 ML; Start 05/01/16 at 20:30 Bisacodyl (Dulcolax) 5 mg DAILY PRN PO CONSTIPATION; Start 05/01/16 at 20:30 Bisacodyl (Dulcolax Supp) 10 mg DAILY PRN [place] CONSTIPATION; Start 05/01/16 at 20: 30 Sodium Biphosphate/ Sodium Phosphate (Fleet Enema) 133 ml DAILY PRN [place] CONSTIPATION; Start 05/01/16 at 20:30 Pantoprazole (Protonix Iv) 40 mg DAILY@06 IV Last administered on 05/14/16 05: 30; Admin Dose 40 MG; Start 05/02/16 at 06:00 Tamsulosin HCl (Flomax) 0.4 mg HS PO Last administered on 05/13/16 21:35; Admin Dose 0.4 MG; Start 05/03/16 at 21:00 Aspirin (Aspirin) 325 mg DAILY PO Last administered on 05/09/16 08:08; Admin Dose 325 MG; Start 05/04/16 at 09:00; Status Future Hold Lorazepam (Ativan) 2 mg Q2 PRN IV AGITATION Last administered on 05/09/16 12: 35; Admin Dose 2 MG; Start 05/05/16 at 18:00 Morphine Sulfate (morphine) 2 mg Q2H PRN IV PAIN Last administered on 01:35; Admin Dose 2 MG; Start 05/05/16 at 18:00 IV Flush (NS 10 ml) 10 ml PRN PRN IV FLUSH LINE; Start 05/06/16 at 13:00 Enoxaparin Sodium 60 mg 60 mg DAILY SC Last administered on 05/14/16 08:39; Admin Dose 60 MG; Start 05/06/16 at 13:30 Fluconazole (Diflucan 200 Mg/ NS (Pmx)) 100 ml @ 100 mls/hr Q24H IVPB Last administered on 05/14/16 18:01; Admin Dose 100 MLS/HR; Start 05/07/16 at 18:00 Docusate Sodium (Colace Liquid Cup) 100 mg TID NGT Last administered on 08:34; Admin Dose 100 MG; Start 05/08/16 at 21:00 Polyethylene Glycol (Miralax) 17 gm DAILY GTB Last administered on 05/14/16 08 :34; Admin Dose 17 GM; Start 05/09/16 at 09:00 Carvedilol (Coreg) 3.125 mg BID NGT Last administered on 05/13/16 21:35; Admin Dose 3.125 MG; Start 05/10/16 at 21:00 Hydralazine HCl 10 mg 10 mg Q8 PO Last administered on 05/13/16 21:36; Admin Dose 10 MG; Start 05/10/16 at 14:00 Dextrose (D5W) 1,000 ml @ 50 mls/hr Q20H IV Last administered on 05/13/16 22: 16; Admin Dose 50 MLS/HR; Start 05/12/16 at 09:30 Metronidazole (Flagyl) 500 mg Q8 NGT Last administered on 05/14/16 13:51; Admin Dose 500 MG; Start 05/13/16 at 22:00 ZEUS CHAPPELL MD May 14, 2016 19:13
--- NOTE | 2016-05-14 19:55 | CONS ---
DATE OF ADMISSION: 05/01/2016 DATE OF CONSULTATION: TYPE OF CONSULTATION: Gastroenterology. REFERRING PHYSICIAN: Dr. Bladimir Linder REASON FOR CONSULTATION: Dysphagia and placement of G-tube. HISTORY OF PRESENT ILLNESS: The patient is an 85-year-old male admitted on 05/02/2016 with a diagno sis of shortness of breath. The patient was found to have bronchitis. He was treated initially wit h a bronchodilator, cardiology consult was called in. Patient has a pacemaker which is functional. A 2D echo was done, ejection fraction was 25 to 50%. Patient's condition deteriorated and went int o respiratory failure requiring intubation, ID consult and pulmonary consult was called in. The srinivas gnosis of aspiration pneumonia was made. Subsequently, the patient got stabilized, extubated and tr ansferred to the floor. He failed swallow study, so GI consult was called in for replacement of G-tu be. At present, patient is being fed through the NG tube. PAST MEDICAL HISTORY: BPH, glaucoma, legally blind. Pacemaker insertion. Asthmatic bronchitis. ALLERGIES: NONE. SOCIAL HISTORY: Does not smoke or drink. MEDICATIONS: As per reconciliation list. PHYSICAL EXAMINATION GENERAL: Patient is lying comfortably, has got an NG tube. CARDIOVASCULAR: No murmur, gallop or click. LUNGS: Air entry diminished. ABDOMEN: Benign. EXTREMITIES: No edema. CENTRAL NERVOUS SYSTEM: Moves all the extremities. The patient is legally blind. LABORATORY DATA: The patent's BUN is 44, creatinine is 1.5. WBC is 24,000, hematocrit is 37. MEDICATIONS: The medication all reviewed. Patient is on: 1. Flagyl. 2. Coreg. 3. Miralax. 4. Hydralazine. 5. Lovenox. 6. Fluconazole. 7. Flomax. 8. Protonix. Chest x-ray showed bilateral infiltrates. IMPRESSION: 1. Aspiration pneumonia. 2. Leukocytosis. 3. Status post pacemaker insertion. 4. Benign prostatic hypertrophy. 5. Legally blind. 6. Status post extubation. 7. History of bronchial asthma. 8. Cardiomyopathy with EF of 25% to 30%. PLAN: At this point, is to continue antibiotics. Once the patient agrees will put G-tube. Patient 's condition needs to be optimized before placing the G-tube. Dictated By: NEVAEH CHIN/TRACY Conf#: [id number] DID#: [id number] CC: BLADIMIR LINDER MD;*End*
[2016-05-14] MEDS: TAMSULOSIN (SR) 0.4 MG CAP PO SCH (22:08)
[2016-05-15] VITALS (12 sets, daily range): BP systolic 88–116; BP diastolic 49–60; PULSE 66–85; RESP 16–18
[2016-05-15] MEDS: PANTOPRAZOLE 40 MG INJ IV SCH (05:25)
[2016-05-15] MEDS: metroNIDAZOLE 500 MG TAB NGT SCH ×3 (05:25→21:27)
[2016-05-15 08:06] LABS: CREATININE 1.22 mg/dl (0.61-1.24)
[2016-05-15 08:07] LABS: CALCIUM 7.4 mg/dl (8.4-10.2)
[2016-05-15 08:15] LABS: POTASSIUM 2.9 mmol/L (3.5-5.1)
[2016-05-15] MEDS ORDERED: POTASSIUM CHLORIDE 250 ML IVPB ONE (08:30)
[2016-05-15] MEDS: POLYETHYLENE GLYCOL 17 GM PACKET GTB SCH (09:01)
[2016-05-15] MEDS: DOCUSATE SODIUM 10 MG/ML (10ML CUP) NGT SCH ×3 (09:01→20:13)
[2016-05-15] MEDS: ENOXAPARIN 60 MG/0.6 ML SYG SC SCH (09:02)
--- NOTE | 2016-05-15 13:21 | CONS ---
Date/Time of Note Date/Time of Note DATE: 05/15/16 TIME: 13:20 Assessment/Plan Assessment/Plan Chief Complaint/Hosp Course SUBJECTIVE: lethargic, opens eyes to voice, lying comfortably in bed. No fevers. INDWELLINGS: Alfonso catheter, PICC line placed on 05/06. ANTIMICROBIALS: Flagyl, Diflucan PHYSICAL EXAMINATION: GENERAL: This is a chronically ill-appearing, elderly man who is lying comfortably in bed. HEENT: Head atraumatic, normocephalic. Sclerae anicteric. Buccal mucosa dry. NECK: Supple, trachea midline. CHEST: Rise symmetrical. Breath sounds diminished to bases. HEART: S1, S2. ABDOMEN: Soft, bowel tones present. EXTREMITIES: Without cyanosis. ASSESSMENT: 1. Acute hypoxemic respiratory failure==> extubated. 2. Possible aspiration pneumonia. 3. Acute renal failure. 4. Chronic obstructive pulmonary disease exacerbation. 5. Hypertension 6. History of benign prostatic hypertrophy. 7. Leukocytosis==> s/p steroids ?Leukemoid r-n ? C dif. PLAN: Clinically stable, continue abx, aspiration precautions, f/u pulmonary/ card rec-s, dc Diflucan. Will order labs in am DW staff Problems: Consultation Date/Type/Reason Admit Date/Time May 01, 2016 at 20:18 Initial Consult Date 05/05/16 Type of Consultation: id Referring Provider: HOLLI LINDER MD Exam/Review of Systems Vital Signs Vitals Vital Signs Date Time Temp Pulse Resp B/P Pulse Ox O2 Delivery O2 Flow Rate FiO2 05/15/16 12:32 98.3 62 18 116/56 94 05/15/16 09:50 Nasal Cannula 3.0 05/11/16 10:00 30 Intake and Output 05/14/16 05/14/16 05/15/16 15:00 23:00 07:00 Intake Total 100 ml 1080 ml 1130 ml Output Total 300 ml 500 ml Balance 100 ml 780 ml 630 ml Results Result Diagram: 05/14/16 0644 05/15/16 0640 Results 24 hrs Laboratory Tests Test 05/15/16 06:40 Anion Gap 13 Blood Urea Nitrogen 39 H Calcium Level 7.4 L Carbon Dioxide Level 25 Chloride Level 108 Creatinine 1.22 Glucose Level 123 Potassium Level 2.9 *L Sodium Level 143 Medications Medications Current Medications Ondansetron HCl (Zofran Inj) 4 mg Q6H PRN IV NAUSEA AND/OR VOMITING; Start 05/01 at 20:30 Acetaminophen (Tylenol Tab) 650 mg Q6H PRN PO PAIN LEVEL 1-3 OR FEVER Last administered on 05/06/16 08:23; Admin Dose 650 MG; Start 05/01/16 at 20:30 Acetaminophen (Tylenol Supp) 650 mg Q6H PRN [place] PAIN LEVEL 1-3 OR FEVER; Start 05/01/16 at 20:30 Docusate Sodium (Colace) 100 mg Q12H PRN PO CONSTIPATION Last administered on 11:52; Admin Dose 100 MG; Start 05/01/16 at 20:30 Magnesium Hydroxide (Milk Of Mag) 30 ml DAILY PRN PO CONSTIPATION Last administered on 05/03/16 11:52; Admin Dose 30 ML; Start 05/01/16 at 20:30 Bisacodyl (Dulcolax) 5 mg DAILY PRN PO CONSTIPATION; Start 05/01/16 at 20:30 Bisacodyl (Dulcolax Supp) 10 mg DAILY PRN [place] CONSTIPATION; Start 05/01/16 at 20: 30 Sodium Biphosphate/ Sodium Phosphate (Fleet Enema) 133 ml DAILY PRN [place] CONSTIPATION; Start 05/01/16 at 20:30 Pantoprazole (Protonix Iv) 40 mg DAILY@06 IV Last administered on 05/15/16 05: 25; Admin Dose 40 MG; Start 05/02/16 at 06:00 Tamsulosin HCl (Flomax) 0.4 mg HS PO Last administered on 05/14/16 22:08; Admin Dose 0.4 MG; Start 05/03/16 at 21:00 Aspirin (Aspirin) 325 mg DAILY PO Last administered on 05/09/16 08:08; Admin Dose 325 MG; Start 05/04/16 at 09:00; Status Future Hold Lorazepam (Ativan) 2 mg Q2 PRN IV AGITATION Last administered on 05/09/16 12: 35; Admin Dose 2 MG; Start 05/05/16 at 18:00 Morphine Sulfate (morphine) 2 mg Q2H PRN IV PAIN Last administered on 01:35; Admin Dose 2 MG; Start 05/05/16 at 18:00 IV Flush (NS 10 ml) 10 ml PRN PRN IV FLUSH LINE; Start 05/06/16 at 13:00 Enoxaparin Sodium 60 mg 60 mg DAILY SC Last administered on 05/15/16 09:02; Admin Dose 60 MG; Start 05/06/16 at 13:30 Fluconazole (Diflucan 200 Mg/ NS (Pmx)) 100 ml @ 100 mls/hr Q24H IVPB Last administered on 05/14/16 18:01; Admin Dose 100 MLS/HR; Start 05/07/16 at 18:00 Docusate Sodium (Colace Liquid Cup) 100 mg TID NGT Last administered on 13:13; Admin Dose 100 MG; Start 05/08/16 at 21:00 Polyethylene Glycol (Miralax) 17 gm DAILY GTB Last administered on 05/15/16 09 :01; Admin Dose 17 GM; Start 05/09/16 at 09:00 Carvedilol (Coreg) 3.125 mg BID NGT Last administered on 05/15/16 09:01; Admin Dose 3.125 MG; Start 05/10/16 at 21:00 Hydralazine HCl 10 mg 10 mg Q8 PO Last administered on 05/15/16 13:13; Admin Dose 10 MG; Start 05/10/16 at 14:00 Dextrose (D5W) 1,000 ml @ 50 mls/hr Q20H IV Last administered on 05/14/16 21: 30; Admin Dose 50 MLS/HR; Start 05/12/16 at 09:30 Metronidazole (Flagyl) 500 mg Q8 NGT Last administered on 05/15/16 13:13; Admin Dose 500 MG; Start 05/13/16 at 22:00 JOSE G CUNNINGHAM NP May 15, 2016 13:20
--- NOTE | 2016-05-15 14:35 | CONS ---
Date/Time of Note Date/Time of Note DATE: 05/15/16 TIME: 14:33 Assessment/Plan Assessment/Plan Additional Assessment/Plan Assessment recommendations; 1. Patient admitted for bilateral pneumonia status post extubation with continually improving clinical status. 2. Renal insufficiency, with continually improving serum creatinine level as well. 3. Persistent leukocytosis, patient currently on appropriate antibiotic regimen. With a slight downward trend today. 4. BPH. 5. COPD. 6. Hypertension. 7. Hypernatremia, with interval improvement. 8. Hypokalemia, patient currently on replacement treatment. Continue current treatment. Consultation Date/Type/Reason Admit Date/Time May 01, 2016 at 20:18 Initial Consult Date 05/05/16 Type of Consultation: Pulmonary Referring Provider: HOLLI LINDER MD 24 HR Interval Summary Free Text/Dictation Patient condition is stable. Still requiring BiPAP off and on. He remains awake and alert. Able to talk. Also able to eat. General exam; elderly male, currently in no distress. Exam/Review of Systems Vital Signs Vitals Vital Signs Date Time Temp Pulse Resp B/P Pulse Ox O2 Delivery O2 Flow Rate FiO2 05/15/16 12:32 98.3 62 18 116/56 94 05/15/16 09:50 Nasal Cannula 3.0 05/11/16 10:00 30 Intake and Output 05/14/16 05/14/16 05/15/16 15:00 23:00 07:00 Intake Total 100 ml 1080 ml 1130 ml Output Total 300 ml 500 ml Balance 100 ml 780 ml 630 ml Exam HEENT examination; supple neck, no JVD. No lymphadenopathy. Midline trachea. Patient is edentulous. Pupils are small bilaterally. No neck masses. Chest examination; diminished but clear breath sounds bilaterally. S1-S2 audible, no murmurs. Regular rhythm. Abdomen examination; soft, nontender. No organomegaly. Bowel sounds audible. Extremity exam is; no peripheral edema. 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 Results Result Diagram: 05/14/16 0644 05/15/16 0640 Results 24 hrs Laboratory Tests Test 05/15/16 06:40 Anion Gap 13 Blood Urea Nitrogen 39 H Calcium Level 7.4 L Carbon Dioxide Level 25 Chloride Level 108 Creatinine 1.22 Glucose Level 123 Potassium Level 2.9 *L Sodium Level 143 Medications Medications Current Medications Ondansetron HCl (Zofran Inj) 4 mg Q6H PRN IV NAUSEA AND/OR VOMITING; Start 05/01 at 20:30 Acetaminophen (Tylenol Tab) 650 mg Q6H PRN PO PAIN LEVEL 1-3 OR FEVER Last administered on 05/06/16 08:23; Admin Dose 650 MG; Start 05/01/16 at 20:30 Acetaminophen (Tylenol Supp) 650 mg Q6H PRN [place] PAIN LEVEL 1-3 OR FEVER; Start 05/01/16 at 20:30 Docusate Sodium (Colace) 100 mg Q12H PRN PO CONSTIPATION Last administered on 11:52; Admin Dose 100 MG; Start 05/01/16 at 20:30 Magnesium Hydroxide (Milk Of Mag) 30 ml DAILY PRN PO CONSTIPATION Last administered on 05/03/16 11:52; Admin Dose 30 ML; Start 05/01/16 at 20:30 Bisacodyl (Dulcolax) 5 mg DAILY PRN PO CONSTIPATION; Start 05/01/16 at 20:30 Bisacodyl (Dulcolax Supp) 10 mg DAILY PRN [place] CONSTIPATION; Start 05/01/16 at 20: 30 Sodium Biphosphate/ Sodium Phosphate (Fleet Enema) 133 ml DAILY PRN [place] CONSTIPATION; Start 05/01/16 at 20:30 Pantoprazole (Protonix Iv) 40 mg DAILY@06 IV Last administered on 05/15/16 05: 25; Admin Dose 40 MG; Start 05/02/16 at 06:00 Tamsulosin HCl (Flomax) 0.4 mg HS PO Last administered on 05/14/16 22:08; Admin Dose 0.4 MG; Start 05/03/16 at 21:00 Aspirin (Aspirin) 325 mg DAILY PO Last administered on 05/09/16 08:08; Admin Dose 325 MG; Start 05/04/16 at 09:00; Status Future Hold Lorazepam (Ativan) 2 mg Q2 PRN IV AGITATION Last administered on 05/09/16 12: 35; Admin Dose 2 MG; Start 05/05/16 at 18:00 Morphine Sulfate (morphine) 2 mg Q2H PRN IV PAIN Last administered on 01:35; Admin Dose 2 MG; Start 05/05/16 at 18:00 IV Flush (NS 10 ml) 10 ml PRN PRN IV FLUSH LINE; Start 05/06/16 at 13:00 Enoxaparin Sodium (Lovenox) 60 mg DAILY SC Last administered on 05/15/16 09:02 ; Admin Dose 60 MG; Start 05/06/16 at 13:30 Docusate Sodium (Colace Liquid Cup) 100 mg TID NGT Last administered on 13:13; Admin Dose 100 MG; Start 05/08/16 at 21:00 Polyethylene Glycol (Miralax) 17 gm DAILY GTB Last administered on 05/15/16 09 :01; Admin Dose 17 GM; Start 05/09/16 at 09:00 Carvedilol (Coreg) 3.125 mg BID NGT Last administered on 05/15/16 09:01; Admin Dose 3.125 MG; Start 05/10/16 at 21:00 Hydralazine HCl 10 mg 10 mg Q8 PO Last administered on 05/15/16 13:13; Admin Dose 10 MG; Start 05/10/16 at 14:00 Dextrose (D5W) 1,000 ml @ 50 mls/hr Q20H IV Last administered on 05/14/16 21: 30; Admin Dose 50 MLS/HR; Start 05/12/16 at 09:30 Metronidazole (Flagyl) 500 mg Q8 NGT Last administered on 05/15/16 13:13; Admin Dose 500 MG; Start 05/13/16 at 22:00 GERALDINE CUNNINGHAM 20, 2017 14:35
--- NOTE | 2016-05-15 16:38 | CONS ---
Date/Time of Note Date/Time of Note DATE: 05/15/16 TIME: 16:36 Assessment/Plan Assessment/Plan Additional Assessment/Plan IMPRESSION: 1. Aspiration pneumonia. 2. Leukocytosis. 3. Status post pacemaker insertion. 4. Benign prostatic hypertrophy. 5. Legally blind. 6. Status post extubation. 7. History of bronchial asthma. 8. Cardiomyopathy with EF of 25% to 30%. 9.hypokalemia Plan continue present care correction of electrolytes PEG once family signs consent Consultation Date/Type/Reason Admit Date/Time May 01, 2016 at 20:18 Initial Consult Date 05/05/16 Type of Consultation: Pulmonary Referring Provider: HOLLI LINDER MD 24 HR Interval Summary Constitutional: no complaints Exam/Review of Systems Vital Signs Vitals Vital Signs Date Time Temp Pulse Resp B/P Pulse Ox O2 Delivery O2 Flow Rate FiO2 05/15/16 15:43 98.2 63 16 107/60 05/15/16 12:32 94 05/15/16 09:50 Nasal Cannula 3.0 05/11/16 10:00 30 Intake and Output 05/14/16 05/14/16 05/15/16 15:00 23:00 07:00 Intake Total 100 ml 1080 ml 1130 ml Output Total 300 ml 500 ml Balance 100 ml 780 ml 630 ml Exam Constitutional: alert, oriented, well developed Psych: nl mood/affect, no complaints Head: atraumatic, normocephalic Eyes: EOMI, PERRL, nl conjunctiva, nl lids, nl sclera ENMT: nl external ears & nose, nl lips & teeth, nl nasal mucosa & septum Neck: non-tender, supple Respiratory: clear to auscultation, normal air movement Cardiovascular: nl pulses, regular rate and rhythm Gastrointestinal: nl liver, spleen, non-tender, soft Musculoskeletal: nl extremities to inspection, nl gait and stance Extremities: normal pulses Neurological: [employer] II-XII intact, nl mental status, nl speech, nl strength Skin: nl turgor, No rash or lesions Lymph: nl lymph nodes Results Result Diagram: 05/14/16 0644 05/15/16 0640 Results 24 hrs Laboratory Tests Test 05/15/16 06:40 Anion Gap 13 Blood Urea Nitrogen 39 H Calcium Level 7.4 L Carbon Dioxide Level 25 Chloride Level 108 Creatinine 1.22 Glucose Level 123 Potassium Level 2.9 *L Sodium Level 143 Medications Medications Current Medications Ondansetron HCl (Zofran Inj) 4 mg Q6H PRN IV NAUSEA AND/OR VOMITING; Start 05/01 at 20:30 Acetaminophen (Tylenol Tab) 650 mg Q6H PRN PO PAIN LEVEL 1-3 OR FEVER Last administered on 05/06/16 08:23; Admin Dose 650 MG; Start 05/01/16 at 20:30 Acetaminophen (Tylenol Supp) 650 mg Q6H PRN [place] PAIN LEVEL 1-3 OR FEVER; Start 05/01/16 at 20:30 Docusate Sodium (Colace) 100 mg Q12H PRN PO CONSTIPATION Last administered on 11:52; Admin Dose 100 MG; Start 05/01/16 at 20:30 Magnesium Hydroxide (Milk Of Mag) 30 ml DAILY PRN PO CONSTIPATION Last administered on 05/03/16 11:52; Admin Dose 30 ML; Start 05/01/16 at 20:30 Bisacodyl (Dulcolax) 5 mg DAILY PRN PO CONSTIPATION; Start 05/01/16 at 20:30 Bisacodyl (Dulcolax Supp) 10 mg DAILY PRN [place] CONSTIPATION; Start 05/01/16 at 20: 30 Sodium Biphosphate/ Sodium Phosphate (Fleet Enema) 133 ml DAILY PRN [place] CONSTIPATION; Start 05/01/16 at 20:30 Pantoprazole (Protonix Iv) 40 mg DAILY@06 IV Last administered on 05/15/16 05: 25; Admin Dose 40 MG; Start 05/02/16 at 06:00 Tamsulosin HCl (Flomax) 0.4 mg HS PO Last administered on 05/14/16 22:08; Admin Dose 0.4 MG; Start 05/03/16 at 21:00 Aspirin (Aspirin) 325 mg DAILY PO Last administered on 05/09/16 08:08; Admin Dose 325 MG; Start 05/04/16 at 09:00; Status Future Hold Lorazepam (Ativan) 2 mg Q2 PRN IV AGITATION Last administered on 05/09/16 12: 35; Admin Dose 2 MG; Start 05/05/16 at 18:00 Morphine Sulfate (morphine) 2 mg Q2H PRN IV PAIN Last administered on 01:35; Admin Dose 2 MG; Start 05/05/16 at 18:00 IV Flush (NS 10 ml) 10 ml PRN PRN IV FLUSH LINE; Start 05/06/16 at 13:00 Enoxaparin Sodium (Lovenox) 60 mg DAILY SC Last administered on 05/15/16 09:02 ; Admin Dose 60 MG; Start 05/06/16 at 13:30 Docusate Sodium (Colace Liquid Cup) 100 mg TID NGT Last administered on 13:13; Admin Dose 100 MG; Start 05/08/16 at 21:00 Polyethylene Glycol (Miralax) 17 gm DAILY GTB Last administered on 05/15/16 09 :01; Admin Dose 17 GM; Start 05/09/16 at 09:00 Carvedilol (Coreg) 3.125 mg BID NGT Last administered on 05/15/16 09:01; Admin Dose 3.125 MG; Start 05/10/16 at 21:00 Hydralazine HCl 10 mg 10 mg Q8 PO Last administered on 05/15/16 13:13; Admin Dose 10 MG; Start 05/10/16 at 14:00 Dextrose (D5W) 1,000 ml @ 50 mls/hr Q20H IV Last administered on 05/14/16 21: 30; Admin Dose 50 MLS/HR; Start 05/12/16 at 09:30 Metronidazole (Flagyl) 500 mg Q8 NGT Last administered on 05/15/16 13:13; Admin Dose 500 MG; Start 05/13/16 at 22:00 NEVAEH WOODSON MD May 15, 2016 16:38
[2016-05-15] MEDS: DEXTROSE 5% 1,000 ML IV SCH (16:40)
--- NOTE | 2016-05-15 17:08 | CONS ---
Date/Time of Note Date/Time of Note DATE: 05/15/16 TIME: 17:05 Assessment/Plan Assessment/Plan Chief Complaint/Hosp Course IMPRESSION: 1. Respiratory failure s/p extubation 2. 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 negative troponin x 3 this admit. s/p lexsican LVEF 22%/no ischemia/prior [place] 3. 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 Possible cardiac arrhythmia-PAFL now rate controlled s/p IVP digoxin 5. History of asthma/chronic obstructive pulmonary disease. 6. Glaucoma. 7. History of bradycardia. 8. Hypotension-improved off pressors 9. Leukocytosis. 10. Altered mental state. 11. Fevers 12.ARF-slowly improving 14.Hypernatremia Recc: -Tele -serial ecg's -Continue BB and hydralazine afterload reduction as tolerated -Continue steroids/bronchodilators -Continue lovenox but follow for bleeding/hematuria -Follow volume status closely and renal fxn closely which is slowly improving Problems: Consultation Date/Type/Reason Admit Date/Time May 01, 2016 at 20:18 Initial Consult Date 05/02/16 Type of Consultation: Cardiology Reason for Consultation CHF Referring Provider: HOLLI LINDER MD Exam/Review of Systems Vital Signs Vitals Vital Signs Date Time Temp Pulse Resp B/P Pulse Ox O2 Delivery O2 Flow Rate FiO2 05/15/16 16:38 85 05/15/16 15:43 98.2 16 107/60 05/15/16 12:32 94 05/15/16 09:50 Nasal Cannula 3.0 05/11/16 10:00 30 Intake and Output 05/14/16 05/14/16 05/15/16 15:00 23:00 07:00 Intake Total 100 ml 1080 ml 1130 ml Output Total 300 ml 500 ml Balance 100 ml 780 ml 630 ml Exam Review of Systems: CONSTITUTIONAL: No fevers, chills. PULMONARY: No sob CARDIOVASCULAR: No chest pain/palpitations GASTROINTESTINAL: No nausea/vomiting. GENITOURINARY: No hematuria/dysuria. MUSCULOSKELETAL: No myagias/arthalgias. PSYCHIATRIC: The patient denies depression. NEUROLOGIC: encephalopathic Constitutional: other (sleeping) Head: normocephalic ENMT: mucosa pink and moist Neck: jvd (9 cm water), supple Respiratory: diminished breath sounds (at bases/B) Cardiovascular: regular rate and rhythm Gastrointestinal: non-tender, soft Musculoskeletal: muscle weakness (generalized) Extremities: edema (none) Neurological: lethargic Results Result Diagram: 05/14/16 0644 05/15/16 0640 Results 24 hrs Laboratory Tests Test 05/15/16 06:40 Anion Gap 13 Blood Urea Nitrogen 39 H Calcium Level 7.4 L Carbon Dioxide Level 25 Chloride Level 108 Creatinine 1.22 Glucose Level 123 Potassium Level 2.9 *L Sodium Level 143 Medications Medications Current Medications Ondansetron HCl (Zofran Inj) 4 mg Q6H PRN IV NAUSEA AND/OR VOMITING; Start 05/01 at 20:30 Acetaminophen (Tylenol Tab) 650 mg Q6H PRN PO PAIN LEVEL 1-3 OR FEVER Last administered on 05/06/16 08:23; Admin Dose 650 MG; Start 05/01/16 at 20:30 Acetaminophen (Tylenol Supp) 650 mg Q6H PRN [place] PAIN LEVEL 1-3 OR FEVER; Start 05/01/16 at 20:30 Docusate Sodium (Colace) 100 mg Q12H PRN PO CONSTIPATION Last administered on 11:52; Admin Dose 100 MG; Start 05/01/16 at 20:30 Magnesium Hydroxide (Milk Of Mag) 30 ml DAILY PRN PO CONSTIPATION Last administered on 05/03/16 11:52; Admin Dose 30 ML; Start 05/01/16 at 20:30 Bisacodyl (Dulcolax) 5 mg DAILY PRN PO CONSTIPATION; Start 05/01/16 at 20:30 Bisacodyl (Dulcolax Supp) 10 mg DAILY PRN [place] CONSTIPATION; Start 05/01/16 at 20: 30 Sodium Biphosphate/ Sodium Phosphate (Fleet Enema) 133 ml DAILY PRN [place] CONSTIPATION; Start 05/01/16 at 20:30 Pantoprazole (Protonix Iv) 40 mg DAILY@06 IV Last administered on 05/15/16 05: 25; Admin Dose 40 MG; Start 05/02/16 at 06:00 Tamsulosin HCl (Flomax) 0.4 mg HS PO Last administered on 05/14/16 22:08; Admin Dose 0.4 MG; Start 05/03/16 at 21:00 Aspirin (Aspirin) 325 mg DAILY PO Last administered on 05/09/16 08:08; Admin Dose 325 MG; Start 05/04/16 at 09:00; Status Future Hold Lorazepam (Ativan) 2 mg Q2 PRN IV AGITATION Last administered on 05/09/16 12: 35; Admin Dose 2 MG; Start 05/05/16 at 18:00 Morphine Sulfate (morphine) 2 mg Q2H PRN IV PAIN Last administered on 01:35; Admin Dose 2 MG; Start 05/05/16 at 18:00 IV Flush (NS 10 ml) 10 ml PRN PRN IV FLUSH LINE; Start 05/06/16 at 13:00 Enoxaparin Sodium (Lovenox) 60 mg DAILY SC Last administered on 05/15/16 09:02 ; Admin Dose 60 MG; Start 05/06/16 at 13:30 Docusate Sodium (Colace Liquid Cup) 100 mg TID NGT Last administered on 13:13; Admin Dose 100 MG; Start 05/08/16 at 21:00 Polyethylene Glycol (Miralax) 17 gm DAILY GTB Last administered on 05/15/16 09 :01; Admin Dose 17 GM; Start 05/09/16 at 09:00 Carvedilol (Coreg) 3.125 mg BID NGT Last administered on 05/15/16 09:01; Admin Dose 3.125 MG; Start 05/10/16 at 21:00 Hydralazine HCl 10 mg 10 mg Q8 PO Last administered on 05/15/16 13:13; Admin Dose 10 MG; Start 05/10/16 at 14:00 Dextrose (D5W) 1,000 ml @ 50 mls/hr Q20H IV Last administered on 05/14/16 21: 30; Admin Dose 50 MLS/HR; Start 05/12/16 at 09:30 Metronidazole (Flagyl) 500 mg Q8 NGT Last administered on 05/15/16 13:13; Admin Dose 500 MG; Start 05/13/16 at 22:00 JAYA GORE 20, 2017 17:08
[2016-05-15] MEDS: TAMSULOSIN (SR) 0.4 MG CAP PO SCH (20:06)
[2016-05-16] VITALS (13 sets, daily range): BP systolic 93–147; BP diastolic 53–70; PULSE 64–127; RESP 15–19
[2016-05-16] MEDS: metroNIDAZOLE 500 MG TAB NGT SCH ×3 (04:36→21:34)
[2016-05-16] MEDS: PANTOPRAZOLE 40 MG INJ IV SCH (04:36)
[2016-05-16 07:44] LABS: ADD SCAN DIFF NO
[2016-05-16 07:52] LABS: ABNORMAL IP MESSAGE 1; HEMOGLOBIN 10.3 g/dl (14.0-18.0); MEAN CORPUSCULAR HEMOGLOBIN 30.4 pg (29.0-33.0); MEAN CORPUSCULAR HGB CONC 32.2 g/dl (32.0-37.0); MEAN CORPUSCULAR VOLUME 94.4 fl (82.0-101.0); MEAN PLATELET VOLUME 12.7 fl (7.4-10.4); PLATELET COUNT 124 10^3/UL (140-415); RED BLOOD COUNT 3.39 10^6/ul (4.70-6.10); RED CELL DISTRIBUTION WIDTH 14.3 % (11.5-14.5)
--- NOTE | 2016-05-16 09:03 | CONS ---
Date/Time of Note Date/Time of Note DATE: 05/16/16 TIME: 08:57 Assessment/Plan Assessment/Plan Additional Assessment/Plan 1. Respiratory failure s/p extubation - better now, stable resp status - pulmonary team follows - improved overall. 2. 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 negative troponin x 3 this admit. s/p lexsican LVEF 22%/no ischemia/prior [place] - NO CP, no significant ectopy noted 3. Permanent pacemaker- no signs of dysfunction - paced at times - will monitor clinically 4. Possible cardiac arrhythmia-PAFL now rate controlled s/p IVP digoxin 5. History of asthma/chronic obstructive pulmonary disease. 6. Glaucoma. 7. History of bradycardia- pacer noted 8. Hypotension-improved off pressors - IMPROVED 9. Leukocytosis - on antibx per ID=- unchanged 10. Altered mental state- lethargic,. 11. Fevers 12.ARF 14.Hemtauria 15.Hypernatremia Consultation Date/Type/Reason Admit Date/Time May 01, 2016 at 20:18 Initial Consult Date 05/05/16 Type of Consultation: Cardiology Referring Provider: HOLLI LINDER MD 24 HR Interval Summary Free Text/Dictation NO acute change - intermittent pacing noted. ROS: No fever, no chills, no nausea, no vomiting, no diarrhea/constipation No recent weight changes No chest pain, no PND, no orthopnea No dizziness, blurred vision No thirst, no heat or cold intolerance Exam/Review of Systems Vital Signs Vitals Vital Signs Date Time Temp Pulse Resp B/P Pulse Ox O2 Delivery O2 Flow Rate FiO2 05/16/16 08:36 98.5 68 18 129/60 96 05/16/16 02:20 3.0 05/15/16 19:53 Nasal Cannula Intake and Output 05/15/16 05/15/16 05/16/16 15:00 23:00 07:00 Intake Total 250 ml 580 ml Output Total 450 ml Balance 250 ml 130 ml Exam General: WN/WD/NAD, AOx 2-3 HEENT: Unicetric/atraumatic/EOMI (follows commands) NECK: JVD elevated, no thyromegaly Lymph: no lymphadenopathy HEART: regular with no S3, II/ systolic murmur at apex, pacer LUNGS: Coarse sounds ABD: soft, NT, ND, +BS : Intact Neuro: non focal SKIN: chronic changes EXT: trace edema Results Result Diagram: 05/16/16 0633 05/15/16 0640 Results 24 hrs Laboratory Tests Test 05/16/16 06:33 Hematocrit 32.0 L Hemoglobin 10.3 L Mean Corpuscular Hemoglobin 30.4 Mean Corpuscular Hemoglobin Concent 32.2 Mean Corpuscular Volume 94.4 Mean Platelet Volume 12.7 H Platelet Count 124 L Red Blood Count 3.39 L Red Cell Distribution Width 14.3 White Blood Count 25.0 H Medications Medications Current Medications Ondansetron HCl (Zofran Inj) 4 mg Q6H PRN IV NAUSEA AND/OR VOMITING; Start 05/01 at 20:30 Acetaminophen (Tylenol Tab) 650 mg Q6H PRN PO PAIN LEVEL 1-3 OR FEVER Last administered on 05/06/16 08:23; Admin Dose 650 MG; Start 05/01/16 at 20:30 Acetaminophen (Tylenol Supp) 650 mg Q6H PRN [place] PAIN LEVEL 1-3 OR FEVER; Start 05/01/16 at 20:30 Docusate Sodium (Colace) 100 mg Q12H PRN PO CONSTIPATION Last administered on 11:52; Admin Dose 100 MG; Start 05/01/16 at 20:30 Magnesium Hydroxide (Milk Of Mag) 30 ml DAILY PRN PO CONSTIPATION Last administered on 05/03/16 11:52; Admin Dose 30 ML; Start 05/01/16 at 20:30 Bisacodyl (Dulcolax) 5 mg DAILY PRN PO CONSTIPATION; Start 05/01/16 at 20:30 Bisacodyl (Dulcolax Supp) 10 mg DAILY PRN [place] CONSTIPATION; Start 05/01/16 at 20: 30 Sodium Biphosphate/ Sodium Phosphate (Fleet Enema) 133 ml DAILY PRN [place] CONSTIPATION; Start 05/01/16 at 20:30 Pantoprazole (Protonix Iv) 40 mg DAILY@06 IV Last administered on 05/16/16 04: 36; Admin Dose 40 MG; Start 05/02/16 at 06:00 Tamsulosin HCl (Flomax) 0.4 mg HS PO Last administered on 05/15/16 20:06; Admin Dose 0.4 MG; Start 05/03/16 at 21:00 Aspirin (Aspirin) 325 mg DAILY PO Last administered on 05/09/16 08:08; Admin Dose 325 MG; Start 05/04/16 at 09:00; Status Future Hold Lorazepam (Ativan) 2 mg Q2 PRN IV AGITATION Last administered on 05/09/16 12: 35; Admin Dose 2 MG; Start 05/05/16 at 18:00 Morphine Sulfate (morphine) 2 mg Q2H PRN IV PAIN Last administered on 01:35; Admin Dose 2 MG; Start 05/05/16 at 18:00 IV Flush (NS 10 ml) 10 ml PRN PRN IV FLUSH LINE; Start 05/06/16 at 13:00 Enoxaparin Sodium (Lovenox) 60 mg DAILY SC Last administered on 05/15/16 09:02 ; Admin Dose 60 MG; Start 05/06/16 at 13:30 Docusate Sodium (Colace Liquid Cup) 100 mg TID NGT Last administered on 20:13; Admin Dose 100 MG; Start 05/08/16 at 21:00 Polyethylene Glycol (Miralax) 17 gm DAILY GTB Last administered on 05/15/16 09 :01; Admin Dose 17 GM; Start 05/09/16 at 09:00 Carvedilol (Coreg) 3.125 mg BID NGT Last administered on 05/15/16 09:01; Admin Dose 3.125 MG; Start 05/10/16 at 21:00 Hydralazine HCl 10 mg 10 mg Q8 PO Last administered on 05/16/16 04:43; Admin Dose 10 MG; Start 05/10/16 at 14:00 Dextrose (D5W) 1,000 ml @ 50 mls/hr Q20H IV Last administered on 05/14/16 21: 30; Admin Dose 50 MLS/HR; Start 05/12/16 at 09:30 Metronidazole (Flagyl) 500 mg Q8 NGT Last administered on 05/16/16 04:36; Admin Dose 500 MG; Start 05/13/16 at 22:00 ZEUS CHAPPELL MD May 16, 2016 09:03
[2016-05-16] MEDS: DOCUSATE SODIUM 10 MG/ML (10ML CUP) NGT SCH ×3 (10:37→20:50)
[2016-05-16] MEDS: ENOXAPARIN 60 MG/0.6 ML SYG SC SCH (10:37)
[2016-05-16] MEDS: POLYETHYLENE GLYCOL 17 GM PACKET GTB SCH (10:37)
--- NOTE | 2016-05-16 11:01 | PN ---
DATE: 05/16/2016 SUBJECTIVE: The patient remains largely somnolent. Continues nasogastric tube feeding. OBJECTIVE: VITAL SIGNS: Temperature 98, pulse is 68, blood pressure 129/60, O2 saturation 96%, FIO 2 of 2 liters. NECK: Supple. No JVD or lymphadenopathy. CARDIAC: S1, S2, no added sounds or murmurs. CHEST: Diminished air entry bilaterally. ABDOMEN: Soft, nontender. No guarding or rebound. EXTREMITIES: No cyanosis, clubbing or edema. NEUROLOGIC: Generalized weakness. LABORATORY DATA: White count 25, hemoglobin 10, hematocrit ____, platelets of 124, BUN 39, creatini ne 1.2. IMPRESSION AND PLAN: 1. Status post hypoxemic respiratory failure. 2. Advanced dementia. 3. Dysphagia. 4. Renal insufficiency. 5. History of chronic obstructive pulmonary disease. PLAN: 1. Continued supplemental O2. 2. Continue aspiration precautions. 3. Speech therapy and GI recommendations. Patient will likely need PEG tube. 4. DVT and GI prophylaxis. Dictated By: KAVON BARR/TRACY Conf#: [id number] DID#: [id number]
--- NOTE | 2016-05-16 11:23 | CONS ---
Date/Time of Note Date/Time of Note DATE: 05/16/16 TIME: 11:21 Assessment/Plan Assessment/Plan Additional Assessment/Plan Additional Assessment/Plan IMPRESSION: 1. Aspiration pneumonia. 2. Leukocytosis. 3. Status post pacemaker insertion. 4. Benign prostatic hypertrophy. 5. Legally blind. 6. Status post extubation. 7. History of bronchial asthma. 8. Cardiomyopathy with EF of 25% 9.hypokalemia,better Plan continue present care correction of electrolytes PEG once family signs consent discussed with son and wants to wait for few more days before he signs consent Consultation Date/Type/Reason Admit Date/Time May 01, 2016 at 20:18 Initial Consult Date 05/05/16 Type of Consultation: Cardiology Referring Provider: HOLLI LINDER MD 24 HR Interval Summary Constitutional: no complaints Exam/Review of Systems Vital Signs Vitals Vital Signs Date Time Temp Pulse Resp B/P Pulse Ox O2 Delivery O2 Flow Rate FiO2 05/16/16 08:36 98.5 68 18 129/60 96 05/16/16 02:20 3.0 05/15/16 19:53 Nasal Cannula Intake and Output 05/15/16 05/15/16 05/16/16 15:00 23:00 07:00 Intake Total 250 ml 580 ml Output Total 450 ml Balance 250 ml 130 ml Exam Constitutional: alert, oriented, well developed Psych: nl mood/affect, no complaints Head: atraumatic, normocephalic Eyes: EOMI, PERRL, nl conjunctiva, nl lids, nl sclera ENMT: nl external ears & nose, nl lips & teeth, nl nasal mucosa & septum Neck: non-tender, supple Respiratory: clear to auscultation, normal air movement Cardiovascular: nl pulses, regular rate and rhythm Gastrointestinal: nl liver, spleen, non-tender, soft Musculoskeletal: nl extremities to inspection, nl gait and stance Extremities: normal pulses Neurological: 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 II-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 intact, nl mental status, nl speech, nl strength Skin: nl turgor, No rash or lesions Lymph: nl lymph nodes Results Result Diagram: 05/16/16 0633 05/15/16 0640 Results 24 hrs Laboratory Tests Test 05/16/16 06:33 Hematocrit 32.0 L Hemoglobin 10.3 L Mean Corpuscular Hemoglobin 30.4 Mean Corpuscular Hemoglobin Concent 32.2 Mean Corpuscular Volume 94.4 Mean Platelet Volume 12.7 H Platelet Count 124 L Red Blood Count 3.39 L Red Cell Distribution Width 14.3 White Blood Count 25.0 H Medications Medications Current Medications Ondansetron HCl (Zofran Inj) 4 mg Q6H PRN IV NAUSEA AND/OR VOMITING; Start 05/01 at 20:30 Acetaminophen (Tylenol Tab) 650 mg Q6H PRN PO PAIN LEVEL 1-3 OR FEVER Last administered on 05/06/16 08:23; Admin Dose 650 MG; Start 05/01/16 at 20:30 Acetaminophen (Tylenol Supp) 650 mg Q6H PRN [place] PAIN LEVEL 1-3 OR FEVER; Start 05/01/16 at 20:30 Docusate Sodium (Colace) 100 mg Q12H PRN PO CONSTIPATION Last administered on 11:52; Admin Dose 100 MG; Start 05/01/16 at 20:30 Magnesium Hydroxide (Milk Of Mag) 30 ml DAILY PRN PO CONSTIPATION Last administered on 05/03/16 11:52; Admin Dose 30 ML; Start 05/01/16 at 20:30 Bisacodyl (Dulcolax) 5 mg DAILY PRN PO CONSTIPATION; Start 05/01/16 at 20:30 Bisacodyl (Dulcolax Supp) 10 mg DAILY PRN [place] CONSTIPATION; Start 05/01/16 at 20: 30 Sodium Biphosphate/ Sodium Phosphate (Fleet Enema) 133 ml DAILY PRN [place] CONSTIPATION; Start 05/01/16 at 20:30 Pantoprazole (Protonix Iv) 40 mg DAILY@06 IV Last administered on 05/16/16 04: 36; Admin Dose 40 MG; Start 05/02/16 at 06:00 Tamsulosin HCl (Flomax) 0.4 mg HS PO Last administered on 05/15/16 20:06; Admin Dose 0.4 MG; Start 05/03/16 at 21:00 Aspirin (Aspirin) 325 mg DAILY PO Last administered on 05/09/16 08:08; Admin Dose 325 MG; Start 05/04/16 at 09:00; Status Future Hold Lorazepam (Ativan) 2 mg Q2 PRN IV AGITATION Last administered on 05/09/16 12: 35; Admin Dose 2 MG; Start 05/05/16 at 18:00 Morphine Sulfate (morphine) 2 mg Q2H PRN IV PAIN Last administered on 01:35; Admin Dose 2 MG; Start 05/05/16 at 18:00 IV Flush (NS 10 ml) 10 ml PRN PRN IV FLUSH LINE; Start 05/06/16 at 13:00 Enoxaparin Sodium (Lovenox) 60 mg DAILY SC Last administered on 05/16/16 10:37 ; Admin Dose 60 MG; Start 05/06/16 at 13:30 Docusate Sodium (Colace Liquid Cup) 100 mg TID NGT Last administered on 10:37; Admin Dose 100 MG; Start 05/08/16 at 21:00 Polyethylene Glycol (Miralax) 17 gm DAILY GTB Last administered on 05/16/16 10 :37; Admin Dose 17 GM; Start 05/09/16 at 09:00 Carvedilol (Coreg) 3.125 mg BID NGT Last administered on 05/16/16 10:38; Admin Dose 3.125 MG; Start 05/10/16 at 21:00 Hydralazine HCl 10 mg 10 mg Q8 PO Last administered on 05/16/16 04:43; Admin Dose 10 MG; Start 05/10/16 at 14:00 Dextrose (D5W) 1,000 ml @ 50 mls/hr Q20H IV Last administered on 05/14/16 21: 30; Admin Dose 50 MLS/HR; Start 05/12/16 at 09:30 Metronidazole (Flagyl) 500 mg Q8 NGT Last administered on 05/16/16 04:36; Admin Dose 500 MG; Start 05/13/16 at 22:00 NEVAEH WOODSON MD May 16, 2016 11:22
[2016-05-16 11:35] LABS: NEUTROPHIL # 23.5 10^3/ul (1.6-7.5)
[2016-05-16] MEDS: DEXTROSE 5% 1,000 ML IV SCH (13:30)
--- NOTE | 2016-05-16 13:59 | RADRPT ---
PROCEDURE: XR Chest. CLINICAL INDICATION: Shortness of breath. TECHNIQUE: Single frontal view. COMPARISON: 05/14/2016. FINDINGS: The nasogastric tube tip is in the stomach and the left arm PICC line tip is in the lower superior v anel cava. There is a right-sided dual lead permanent pacemaker, unchanged. The heart is enlarged. There is calcification in the aorta consistent with atherosclerosis. Mild atelectasis at the lung bases is unchanged. Superimposed pneumonia cannot be excluded. The nubia ngs are otherwise clear. There are small bilateral pleural effusions. There is no pneumothorax. There are degenerative changes of both shoulders. IMPRESSION: 1. No change from 05/14/2016. RPTAT: QQ .Henrik Reyna MD, MD Date Time Electronically viewed and signed by .Henrik Reyna MD, MD on 05/16/2016 13:58 .R/
--- NOTE | 2016-05-16 14:16 | CONS ---
Date/Time of Note Date/Time of Note DATE: 05/16/16 TIME: 14:14 Assessment/Plan Assessment/Plan Chief Complaint/Hosp Course SUBJECTIVE: lethargic, lying comfortably in bed. No fevers. INDWELLINGS: Alfonso catheter, PICC line placed on 05/06. ANTIMICROBIALS: Flagyl PHYSICAL EXAMINATION: GENERAL: This is a chronically ill-appearing, elderly man who is lying comfortably in bed. HEENT: Head atraumatic, normocephalic. Sclerae anicteric. Buccal mucosa dry. NECK: Supple, trachea midline. CHEST: Rise symmetrical. Breath sounds diminished to bases. HEART: S1, S2. ABDOMEN: Soft, bowel tones present. EXTREMITIES: Without cyanosis. ASSESSMENT: 1. Acute hypoxemic respiratory failure==> extubated. 2. Possible aspiration pneumonia. 3. Acute renal failure. 4. Chronic obstructive pulmonary disease exacerbation. 5. Hypertension 6. History of benign prostatic hypertrophy. 7. Leukocytosis==> s/p steroids ?Leukemoid r-n ? C dif. PLAN: Clinically unchanged, continue abx, aspiration precautions, f/u pulmonary/card rec-s DW staff Problems: Consultation Date/Type/Reason Admit Date/Time May 01, 2016 at 20:18 Initial Consult Date 05/05/16 Type of Consultation: id Referring Provider: HOLLI LINDER MD Exam/Review of Systems Vital Signs Vitals Vital Signs Date Time Temp Pulse Resp B/P Pulse Ox O2 Delivery O2 Flow Rate FiO2 05/16/16 12:00 64 05/16/16 11:49 97.8 18 147/70 95 05/16/16 02:20 3.0 05/15/16 19:53 Nasal Cannula Intake and Output 05/15/16 05/15/16 05/16/16 15:00 23:00 07:00 Intake Total 250 ml 580 ml Output Total 450 ml Balance 250 ml 130 ml Results Result Diagram: 05/16/16 0633 05/15/16 0640 Results 24 hrs Laboratory Tests Test 05/16/16 06:33 Band Neutrophils % 2.0 Hematocrit 32.0 L Hemoglobin 10.3 L Lymphocytes # 1.0 Lymphocytes % 4.0 L Mean Corpuscular Hemoglobin 30.4 Mean Corpuscular Hemoglobin Concent 32.2 Mean Corpuscular Volume 94.4 Mean Platelet Volume 12.7 H Neutrophils # 23.5 H Neutrophils % 94.0 H Platelet Count 124 L Red Blood Count 3.39 L Red Cell Distribution Width 14.3 White Blood Count 25.0 H Medications Medications Current Medications Ondansetron HCl (Zofran Inj) 4 mg Q6H PRN IV NAUSEA AND/OR VOMITING; Start 05/01 at 20:30 Acetaminophen (Tylenol Tab) 650 mg Q6H PRN PO PAIN LEVEL 1-3 OR FEVER Last administered on 05/06/16 08:23; Admin Dose 650 MG; Start 05/01/16 at 20:30 Acetaminophen (Tylenol Supp) 650 mg Q6H PRN [place] PAIN LEVEL 1-3 OR FEVER; Start 05/01/16 at 20:30 Docusate Sodium (Colace) 100 mg Q12H PRN PO CONSTIPATION Last administered on 11:52; Admin Dose 100 MG; Start 05/01/16 at 20:30 Magnesium Hydroxide (Milk Of Mag) 30 ml DAILY PRN PO CONSTIPATION Last administered on 05/03/16 11:52; Admin Dose 30 ML; Start 05/01/16 at 20:30 Bisacodyl (Dulcolax) 5 mg DAILY PRN PO CONSTIPATION; Start 05/01/16 at 20:30 Bisacodyl (Dulcolax Supp) 10 mg DAILY PRN [place] CONSTIPATION; Start 05/01/16 at 20: 30 Sodium Biphosphate/ Sodium Phosphate (Fleet Enema) 133 ml DAILY PRN [place] CONSTIPATION; Start 05/01/16 at 20:30 Pantoprazole (Protonix Iv) 40 mg DAILY@06 IV Last administered on 05/16/16 04: 36; Admin Dose 40 MG; Start 05/02/16 at 06:00 Tamsulosin HCl (Flomax) 0.4 mg HS PO Last administered on 05/15/16 20:06; Admin Dose 0.4 MG; Start 05/03/16 at 21:00 Aspirin (Aspirin) 325 mg DAILY PO Last administered on 05/09/16 08:08; Admin Dose 325 MG; Start 05/04/16 at 09:00; Status Future Hold Lorazepam (Ativan) 2 mg Q2 PRN IV AGITATION Last administered on 05/09/16 12: 35; Admin Dose 2 MG; Start 05/05/16 at 18:00 Morphine Sulfate (morphine) 2 mg Q2H PRN IV PAIN Last administered on 01:35; Admin Dose 2 MG; Start 05/05/16 at 18:00 IV Flush (NS 10 ml) 10 ml PRN PRN IV FLUSH LINE; Start 05/06/16 at 13:00 Enoxaparin Sodium (Lovenox) 60 mg DAILY SC Last administered on 05/16/16 10:37 ; Admin Dose 60 MG; Start 05/06/16 at 13:30 Docusate Sodium (Colace Liquid Cup) 100 mg TID NGT Last administered on 13:18; Admin Dose 100 MG; Start 05/08/16 at 21:00 Polyethylene Glycol (Miralax) 17 gm DAILY GTB Last administered on 05/16/16 10 :37; Admin Dose 17 GM; Start 05/09/16 at 09:00 Carvedilol (Coreg) 3.125 mg BID NGT Last administered on 05/16/16 10:38; Admin Dose 3.125 MG; Start 05/10/16 at 21:00 Hydralazine HCl 10 mg 10 mg Q8 PO Last administered on 05/16/16 13:19; Admin Dose 10 MG; Start 05/10/16 at 14:00 Dextrose (D5W) 1,000 ml @ 50 mls/hr Q20H IV Last administered on 05/14/16 21: 30; Admin Dose 50 MLS/HR; Start 05/12/16 at 09:30 Metronidazole (Flagyl) 500 mg Q8 NGT Last administered on 05/16/16 13:18; Admin Dose 500 MG; Start 05/13/16 at 22:00 JOSE G CUNNINGHAM NP May 16, 2016 14:15
[2016-05-16] MEDS: TAMSULOSIN (SR) 0.4 MG CAP PO SCH (20:53)
--- NOTE | 2016-05-16 22:28 | PN ---
Date/Time of Note Date/Time of Note DATE: 05/16/16 TIME: 22:26 Assessment/Plan VTE Prophylaxis VTE Prophylaxis Intervention: other Lines/Catheters IV Catheter Type (from Nrsg): PICC Line Central line still needed: Yes Urinary Cath still in place: Yes Reason Cath still needed: other (indicate) Assessment/Plan Chief Complaint/Hosp Course IMPRESSION: The patient has 1. s/p ACUTE RES FAILURE 2. hypernatremia better 3. Hypertension. 4. anxiety 5. PACEMAKER HX 6 low ef 7 leucocytosis 8 RHINA 9 hypokalemia 10 SEPSIS plan cardio eval bmp peg Problems: Subjective 24 Hr Interval Summary Subjective hx not possible: other (peg refused by family for now) Exam/Review of Systems Vital Signs Vitals Vital Signs Date Time Temp Pulse Resp B/P Pulse Ox O2 Delivery O2 Flow Rate FiO2 05/16/16 20:32 76 05/16/16 19:44 3.0 05/16/16 19:28 Nasal Cannula 05/16/16 17:17 97.8 18 93/55 95 Intake and Output 05/15/16 05/15/16 05/16/16 14:59 22:59 06:59 Intake Total 250 ml 580 ml Output Total 450 ml Balance 250 ml 130 ml Exam Respiratory: clear to auscultation Cardiovascular: regular rate and rhythm Gastrointestinal: soft Results Result Diagram: 05/16/16 0633 05/15/16 0640 Results 24 hrs Laboratory Tests Test 05/16/16 06:33 Band Neutrophils % 2.0 Hematocrit 32.0 L Hemoglobin 10.3 L Lymphocytes # 1.0 Lymphocytes % 4.0 L Mean Corpuscular Hemoglobin 30.4 Mean Corpuscular Hemoglobin Concent 32.2 Mean Corpuscular Volume 94.4 Mean Platelet Volume 12.7 H Neutrophils # 23.5 H Neutrophils % 94.0 H Platelet Count 124 L Red Blood Count 3.39 L Red Cell Distribution Width 14.3 White Blood Count 25.0 H Medications Medications Current Medications Ondansetron HCl (Zofran Inj) 4 mg Q6H PRN IV NAUSEA AND/OR VOMITING; Start 05/01 at 20:30 Acetaminophen (Tylenol Tab) 650 mg Q6H PRN PO PAIN LEVEL 1-3 OR FEVER Last administered on 05/06/16t 08:23; Admin Dose 650 MG; Start 05/01/16 at 20:30 Acetaminophen (Tylenol Supp) 650 mg Q6H PRN [place] PAIN LEVEL 1-3 OR FEVER; Start 05/01/16 at 20:30 Docusate Sodium (Colace) 100 mg Q12H PRN PO CONSTIPATION Last administered on 11:52; Admin Dose 100 MG; Start 05/01/16 at 20:30 Magnesium Hydroxide (Milk Of Mag) 30 ml DAILY PRN PO CONSTIPATION Last administered on 05/03/16 11:52; Admin Dose 30 ML; Start 05/01/16 at 20:30 Bisacodyl (Dulcolax) 5 mg DAILY PRN PO CONSTIPATION; Start 05/01/16 at 20:30 Bisacodyl (Dulcolax Supp) 10 mg DAILY PRN [place] CONSTIPATION; Start 05/01/16 at 20: 30 Sodium Biphosphate/ Sodium Phosphate (Fleet Enema) 133 ml DAILY PRN [place] CONSTIPATION; Start 05/01/16 at 20:30 Pantoprazole (Protonix Iv) 40 mg DAILY@06 IV Last administered on 05/16/16 04: 36; Admin Dose 40 MG; Start 05/02/16 at 06:00 Tamsulosin HCl (Flomax) 0.4 mg HS PO Last administered on 05/16/16 20:53; Admin Dose 0.4 MG; Start 05/03/16 at 21:00 Aspirin (Aspirin) 325 mg DAILY PO Last administered on 05/09/16 08:08; Admin Dose 325 MG; Start 05/04/16 at 09:00; Status Future Hold Lorazepam (Ativan) 2 mg Q2 PRN IV AGITATION Last administered on 05/09/16 12: 35; Admin Dose 2 MG; Start 05/05/16 at 18:00 Morphine Sulfate (morphine) 2 mg Q2H PRN IV PAIN Last administered on 01:35; Admin Dose 2 MG; Start 05/05/16 at 18:00 IV Flush (NS 10 ml) 10 ml PRN PRN IV FLUSH LINE; Start 05/06/16 at 13:00 Enoxaparin Sodium (Lovenox) 60 mg DAILY SC Last administered on 05/16/16 10:37 ; Admin Dose 60 MG; Start 05/06/16 at 13:30 Docusate Sodium (Colace Liquid Cup) 100 mg TID NGT Last administered on 13:18; Admin Dose 100 MG; Start 05/08/16 at 21:00 Polyethylene Glycol (Miralax) 17 gm DAILY GTB Last administered on 05/16/16 10 :37; Admin Dose 17 GM; Start 05/09/16 at 09:00 Carvedilol (Coreg) 3.125 mg BID NGT Last administered on 05/16/16 10:38; Admin Dose 3.125 MG; Start 05/10/16 at 21:00 Hydralazine HCl 10 mg 10 mg Q8 PO Last administered on 05/16/16 21:34; Admin Dose 10 MG; Start 05/10/16 at 14:00 Dextrose (D5W) 1,000 ml @ 50 mls/hr Q20H IV Last administered on 05/14/16 21: 30; Admin Dose 50 MLS/HR; Start 05/12/16 at 09:30 Metronidazole (Flagyl) 500 mg Q8 NGT Last administered on 05/16/16 21:34; Admin Dose 500 MG; Start 05/13/16 at 22:00 HOLLI LINDER MD May 16, 2016 22:28
[2016-05-17] VITALS (12 sets, daily range): BP systolic 103–165; BP diastolic 5–69; PULSE 63–82; RESP 15–20
[2016-05-17] MEDS: PANTOPRAZOLE 40 MG INJ IV SCH (05:18)
[2016-05-17] MEDS: metroNIDAZOLE 500 MG TAB NGT SCH ×3 (05:18→21:22)
[2016-05-17 07:55] LABS: POTASSIUM 3.2 mmol/L (3.5-5.1)
[2016-05-17 07:58] LABS: CALCIUM 7.5 mg/dl (8.4-10.2); CREATININE 0.98 mg/dl (0.61-1.24)
[2016-05-17] MEDS: DOCUSATE SODIUM 10 MG/ML (10ML CUP) NGT SCH ×3 (09:27→21:21)
[2016-05-17] MEDS: POLYETHYLENE GLYCOL 17 GM PACKET GTB SCH (09:27)
[2016-05-17] MEDS: ENOXAPARIN 60 MG/0.6 ML SYG SC SCH (09:29)
[2016-05-17] MEDS: DEXTROSE 5% 1,000 ML IV SCH (09:30)
--- NOTE | 2016-05-17 11:15 | PN ---
DATE: 05/17/2016 SUBJECTIVE: Patient May relatively unchanged, remains somnolent, nasogastric tube in place. VITAL SIGNS: Temperature 98, pulse 82, blood pressure 165/70, O2 saturation 96% on 3 liters. NECK: Supple. No JVD or lymphadenopathy. CARDIAC: S1, S2, no added sounds or murmurs. CHEST: Diminished air entry bilaterally. ABDOMEN: Soft, nontender. No guarding or rebound. EXTREMITIES: No cyanosis, clubbing, edema. NEUROLOGIC: Generalized weakness. LABORATORY DATA: Pending at time of this dictation. IMPRESSION: 1. Recent aspiration pneumonia. 2. Status post hypoxemic respiratory failure. 3. Hypoxemia. 4. Dysphagia. 5. Dementia. PLAN: 1. Continue tube feeding. 2. Continue antibiotics. 3. Aspiration precautions. 4. Consider palliative care consult. His overall prognosis is very poor. Dictated By: KAVON BARR/TRACY Conf#: [id number] DID#: [id number]
--- NOTE | 2016-05-17 14:02 | PN ---
DATE: 05/17/2016 INFECTIOUS DISEASE PROGRESS NOTE SUBJECTIVE: No acute events. The patient is noncommunicative. Opens eyes, looks comfortable. As pe r staff, he has copious secretions and requires suctioning. INDWELLINGS: NG tube, Alfonso catheter, PICC line. ANTIMICROBIALS: The patient had been on Flagyl; however, no more diarrhea. PHYSICAL EXAMINATION: GENERAL: This is a fragile, elderly man in no distress. HEENT: Head atraumatic, normocephalic. Sclerae anicteric. Buccal mucosa dry. NECK: Supple, trachea midline. CHEST: Rise symmetrical. Breath sounds diminished to bases. HEART: S1, S2. ABDOMEN: Soft, bowel tones present. EXTREMITIES: Without cyanosis. ASSESSMENT: 1. Persistent leukocytosis, status post steroids, blood culture on May 12 negative. 2. Status post pneumonia. 3. Respiratory failure. 4. Dysphagia. 5. History of benign prostatic hypertrophy. PLAN: The patient remains stable. Chest x-ray from yesterday revealed no change. He is being foll owed by multiple consultants, pending PEG placement. With repeat urine culture today. Dictated By: JOSE G CUNNINGHAM CELL BIOLOGIST for RASHIDA CAMPBELL MD NI/NTS Conf#: [id number] DID#: [id number]
--- NOTE | 2016-05-17 19:24 | CONS ---
Date/Time of Note Date/Time of Note DATE: 05/17/16 TIME: 19:23 Assessment/Plan Assessment/Plan Additional Assessment/Plan IMPRESSION: 1. Aspiration pneumonia. 2. Leukocytosis. 3. Status post pacemaker insertion. 4. Benign prostatic hypertrophy. 5. Legally blind. 6. Status post extubation. 7. History of bronchial asthma. 8. 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 dysphagia ,tolerating NG tube feeding Plan continue present care correction of electrolytes PEG once family signs consent discussed with son and wants to wait for few more days before he signs consent Consultation Date/Type/Reason Admit Date/Time May 01, 2016 at 20:18 Initial Consult Date 05/05/16 Type of Consultation: id Referring Provider: HOLLI LINDER MD 24 HR Interval Summary Constitutional: no complaints Exam/Review of Systems Vital Signs Vitals Vital Signs Date Time Temp Pulse Resp B/P Pulse Ox O2 Delivery O2 Flow Rate FiO2 05/17/16 16:16 82 05/17/16 16:00 98.6 19 125/59 94 05/17/16 14:16 3.0 05/17/16 08:00 Nasal Cannula Intake and Output 05/16/16 05/16/16 05/17/16 15:00 23:00 07:00 Intake Total 580 ml Output Total 800 ml Balance -220 ml Exam Constitutional: alert, oriented, well developed Psych: nl mood/affect, no complaints Head: atraumatic, normocephalic Eyes: EOMI, PERRL, nl conjunctiva, nl lids, nl sclera ENMT: nl external ears & nose, nl lips & teeth, nl nasal mucosa & septum Neck: non-tender, supple Respiratory: clear to auscultation, normal air movement Cardiovascular: nl pulses, regular rate and rhythm Gastrointestinal: nl liver, spleen, non-tender, soft Musculoskeletal: nl extremities to inspection, nl gait and stance Extremities: normal pulses Neurological: 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 intact, nl mental status, nl speech, nl strength Skin: nl turgor, No rash or lesions Lymph: nl lymph nodes Results Result Diagram: 05/16/16 0633 05/17/16 0703 Results 24 hrs Laboratory Tests Test 05/17/16 07:03 Sodium Level 138 Potassium Level 3.2 L Chloride Level 103 Carbon Dioxide Level 27 Anion Gap 11 Blood Urea Nitrogen 26 H Creatinine 0.98 Glucose Level 131 Calcium Level 7.5 L Medications Medications Current Medications Ondansetron HCl (Zofran Inj) 4 mg Q6H PRN IV NAUSEA AND/OR VOMITING; Start 05/01 at 20:30 Acetaminophen (Tylenol Tab) 650 mg Q6H PRN PO PAIN LEVEL 1-3 OR FEVER Last administered on 05/06/16 08:23; Admin Dose 650 MG; Start 05/01/16 at 20:30 Acetaminophen (Tylenol Supp) 650 mg Q6H PRN [place] PAIN LEVEL 1-3 OR FEVER; Start 05/01/16 at 20:30 Docusate Sodium (Colace) 100 mg Q12H PRN PO CONSTIPATION Last administered on 11:52; Admin Dose 100 MG; Start 05/01/16 at 20:30 Magnesium Hydroxide (Milk Of Mag) 30 ml DAILY PRN PO CONSTIPATION Last administered on 05/03/16 11:52; Admin Dose 30 ML; Start 05/01/16 at 20:30 Bisacodyl (Dulcolax) 5 mg DAILY PRN PO CONSTIPATION; Start 05/01/16 at 20:30 Bisacodyl (Dulcolax Supp) 10 mg DAILY PRN [place] CONSTIPATION; Start 05/01/16 at 20: 30 Sodium Biphosphate/ Sodium Phosphate (Fleet Enema) 133 ml DAILY PRN [place] CONSTIPATION; Start 05/01/16 at 20:30 Pantoprazole (Protonix Iv) 40 mg DAILY@06 IV Last administered on 05/17/16 05: 18; Admin Dose 40 MG; Start 05/02/16 at 06:00 Tamsulosin HCl (Flomax) 0.4 mg HS PO Last administered on 05/16/16 20:53; Admin Dose 0.4 MG; Start 05/03/16 at 21:00 Aspirin (Aspirin) 325 mg DAILY PO Last administered on 05/09/16 08:08; Admin Dose 325 MG; Start 05/04/16 at 09:00; Status Future Hold Lorazepam (Ativan) 2 mg Q2 PRN IV AGITATION Last administered on 05/09/16 12: 35; Admin Dose 2 MG; Start 05/05/16 at 18:00 Morphine Sulfate (morphine) 2 mg Q2H PRN IV PAIN Last administered on 3/14/ 17at 01:35; Admin Dose 2 MG; Start 05/05/16 at 18:00 IV Flush (NS 10 ml) 10 ml PRN PRN IV FLUSH LINE; Start 05/06/16 at 13:00 Enoxaparin Sodium (Lovenox) 60 mg DAILY SC Last administered on 05/17/16 09:29 ; Admin Dose 60 MG; Start 05/06/16 at 13:30 Docusate Sodium (Colace Liquid Cup) 100 mg TID NGT Last administered on 15:07; Admin Dose 100 MG; Start 05/08/16 at 21:00 Polyethylene Glycol (Miralax) 17 gm DAILY GTB Last administered on 05/17/16 09 :27; Admin Dose 17 GM; Start 05/09/16 at 09:00 Carvedilol (Coreg) 3.125 mg BID NGT Last administered on 05/17/16 09:27; Admin Dose 3.125 MG; Start 05/10/16 at 21:00 Hydralazine HCl 10 mg 10 mg Q8 PO Last administered on 05/17/16 15:08; Admin Dose 10 MG; Start 05/10/16 at 14:00 Dextrose (D5W) 1,000 ml @ 50 mls/hr Q20H IV Last administered on 05/14/16 21: 30; Admin Dose 50 MLS/HR; Start 05/12/16 at 09:30 Metronidazole (Flagyl) 500 mg Q8 NGT Last administered on 05/17/16 15:07; Admin Dose 500 MG; Start 05/13/16 at 22:00 NEVAEH WOODSON MD May 17, 2016 19:24
--- NOTE | 2016-05-17 19:24 | CONS ---
Date/Time of Note Date/Time of Note DATE: 05/17/16 TIME: 19:18 Assessment/Plan Assessment/Plan Chief Complaint/Hosp Course IMPRESSION: 1. Respiratory failure s/p extubation 2. 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 negative troponin x 3 this admit. s/p lexsican LVEF 22%/no ischemia/prior [place] 3. 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 Possible cardiac arrhythmia-AFL/AF now rate controlled s/p IVP digoxin 5. History of asthma/chronic obstructive pulmonary disease. 6. Glaucoma. 7. History of bradycardia. 8. Hypotension-improved off pressors 9. Leukocytosis. 10. Altered mental state. 11. 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 -Continue steroids/bronchodilators -Continue lovenox but follow for bleeding/hematuria -Follow volume status closely and renal fxn closely which is slowly improving Problems: Consultation Date/Type/Reason Admit Date/Time May 01, 2016 at 20:18 Initial Consult Date 05/02/16 Type of Consultation: Cardiology Reason for Consultation cardiomyopathy Referring Provider: HOLLI LINDER MD Exam/Review of Systems Vital Signs Vitals Vital Signs Date Time Temp Pulse Resp B/P Pulse Ox O2 Delivery O2 Flow Rate FiO2 05/17/16 16:16 82 05/17/16 16:00 98.6 19 125/59 94 05/17/16 14:16 3.0 05/17/16 08:00 Nasal Cannula Intake and Output 05/16/16 05/16/16 05/17/16 15:00 23:00 07:00 Intake Total 580 ml Output Total 800 ml Balance -220 ml Exam Review of Systems: CONSTITUTIONAL: No fevers, chills. PULMONARY: No sob CARDIOVASCULAR: No chest pain/palpitations GASTROINTESTINAL: No nausea/vomiting. GENITOURINARY: No hematuria/dysuria. MUSCULOSKELETAL: No myagias/arthalgias. PSYCHIATRIC: The patient denies depression. NEUROLOGIC: No weakness Constitutional: alert Psych: no complaints Head: normocephalic ENMT: mucosa pink and moist Neck: jvd (9 cm water), supple Respiratory: diminished breath sounds (at bases/B) Cardiovascular: regular rate and rhythm Gastrointestinal: non-tender, soft Musculoskeletal: muscle tone Extremities: normal pulses Neurological: lethargic Results Result Diagram: 05/16/16 0633 05/17/16 0703 Results 24 hrs Laboratory Tests Test 05/17/16 07:03 Sodium Level 138 Potassium Level 3.2 L Chloride Level 103 Carbon Dioxide Level 27 Anion Gap 11 Blood Urea Nitrogen 26 H Creatinine 0.98 Glucose Level 131 Calcium Level 7.5 L Medications Medications Current Medications Ondansetron HCl (Zofran Inj) 4 mg Q6H PRN IV NAUSEA AND/OR VOMITING; Start 05/01 at 20:30 Acetaminophen (Tylenol Tab) 650 mg Q6H PRN PO PAIN LEVEL 1-3 OR FEVER Last administered on 05/06/16 08:23; Admin Dose 650 MG; Start 05/01/16 at 20:30 Acetaminophen (Tylenol Supp) 650 mg Q6H PRN [place] PAIN LEVEL 1-3 OR FEVER; Start 05/01/16 at 20:30 Docusate Sodium (Colace) 100 mg Q12H PRN PO CONSTIPATION Last administered on 11:52; Admin Dose 100 MG; Start 05/01/16 at 20:30 Magnesium Hydroxide (Milk Of Mag) 30 ml DAILY PRN PO CONSTIPATION Last administered on 05/03/16 11:52; Admin Dose 30 ML; Start 05/01/16 at 20:30 Bisacodyl (Dulcolax) 5 mg DAILY PRN PO CONSTIPATION; Start 05/01/16 at 20:30 Bisacodyl (Dulcolax Supp) 10 mg DAILY PRN [place] CONSTIPATION; Start 05/01/16 at 20: 30 Sodium Biphosphate/ Sodium Phosphate (Fleet Enema) 133 ml DAILY PRN [place] CONSTIPATION; Start 05/01/16 at 20:30 Pantoprazole (Protonix Iv) 40 mg DAILY@06 IV Last administered on 05/17/16 05: 18; Admin Dose 40 MG; Start 05/02/16 at 06:00 Tamsulosin HCl (Flomax) 0.4 mg HS PO Last administered on 05/16/16 20:53; Admin Dose 0.4 MG; Start 05/03/16 at 21:00 Aspirin (Aspirin) 325 mg DAILY PO Last administered on 05/09/16 08:08; Admin Dose 325 MG; Start 05/04/16 at 09:00; Status Future Hold Lorazepam (Ativan) 2 mg Q2 PRN IV AGITATION Last administered on 05/09/16 12: 35; Admin Dose 2 MG; Start 05/05/16 at 18:00 Morphine Sulfate (morphine) 2 mg Q2H PRN IV PAIN Last administered on 01:35; Admin Dose 2 MG; Start 05/05/16 at 18:00 IV Flush (NS 10 ml) 10 ml PRN PRN IV FLUSH LINE; Start 05/06/16 at 13:00 Enoxaparin Sodium (Lovenox) 60 mg DAILY SC Last administered on 05/17/16 09:29 ; Admin Dose 60 MG; Start 05/06/16 at 13:30 Docusate Sodium (Colace Liquid Cup) 100 mg TID NGT Last administered on 15:07; Admin Dose 100 MG; Start 05/08/16 at 21:00 Polyethylene Glycol (Miralax) 17 gm DAILY GTB Last administered on 05/17/16 09 :27; Admin Dose 17 GM; Start 05/09/16 at 09:00 Carvedilol (Coreg) 3.125 mg BID NGT Last administered on 05/17/16 09:27; Admin Dose 3.125 MG; Start 05/10/16 at 21:00 Hydralazine HCl 10 mg 10 mg Q8 PO Last administered on 05/17/16 15:08; Admin Dose 10 MG; Start 05/10/16 at 14:00 Dextrose (D5W) 1,000 ml @ 50 mls/hr Q20H IV Last administered on 05/14/16 21: 30; Admin Dose 50 MLS/HR; Start 05/12/16 at 09:30 Metronidazole (Flagyl) 500 mg Q8 NGT Last administered on 05/17/16 15:07; Admin Dose 500 MG; Start 05/13/16 at 22:00 JAYA GORE May 17, 2016 19:24
[2016-05-17] MEDS ORDERED: POTASSIUM CHLORIDE 250 ML IVPB ONE (20:00)
[2016-05-17] MEDS: TAMSULOSIN (SR) 0.4 MG CAP PO SCH (21:22)
--- NOTE | 2016-05-17 23:48 | PN ---
Date/Time of Note Date/Time of Note DATE: 05/17/16 TIME: 23:47 Assessment/Plan VTE Prophylaxis VTE Prophylaxis Intervention: other Lines/Catheters IV Catheter Type (from Nrsg): PICC Line Central line still needed: Yes Urinary Cath still in place: Yes Reason Cath still needed: other (indicate) Assessment/Plan Chief Complaint/Hosp Course IMPRESSION: The patient has 1. s/p ACUTE RES FAILURE 2. hypernatremia better 3. Hypertension. 4. anxiety 5. PACEMAKER HX 6 low ef 7 leucocytosis 8 RHINA 9 hypokalemia 10 SEPSIS plan cardio eval bmp peg kcl Problems: Subjective 24 Hr Interval Summary Subjective hx not possible: pt non-verbal Respiratory: shortness of breath (+) Gastrointestinal: no complaints Exam/Review of Systems Vital Signs Vitals Vital Signs Date Time Temp Pulse Resp B/P Pulse Ox O2 Delivery O2 Flow Rate FiO2 05/17/16 23:18 3.0 05/17/16 20:46 76 05/17/16 20:15 98.7 18 103/53 92 05/17/16 08:00 Nasal Cannula Intake and Output 05/16/16 05/16/16 05/17/16 15:00 23:00 07:00 Intake Total 580 ml Output Total 800 ml Balance -220 ml Exam Respiratory: diminished breath sounds Cardiovascular: regular rate and rhythm Gastrointestinal: bowel sounds (+), soft Results Result Diagram: 05/16/16 0633 05/17/16 0703 Results 24 hrs Laboratory Tests Test 05/17/16 07:03 Sodium Level 138 Potassium Level 3.2 L Chloride Level 103 Carbon Dioxide Level 27 Anion Gap 11 Blood Urea Nitrogen 26 H Creatinine 0.98 Glucose Level 131 Calcium Level 7.5 L Medications Medications Current Medications Ondansetron HCl (Zofran Inj) 4 mg Q6H PRN IV NAUSEA AND/OR VOMITING; Start 05/01 at 20:30 Acetaminophen (Tylenol Tab) 650 mg Q6H PRN PO PAIN LEVEL 1-3 OR FEVER Last administered on 05/06/16 08:23; Admin Dose 650 MG; Start 05/01/16 at 20:30 Acetaminophen (Tylenol Supp) 650 mg Q6H PRN [place] PAIN LEVEL 1-3 OR FEVER; Start 05/01/16 at 20:30 Docusate Sodium (Colace) 100 mg Q12H PRN PO CONSTIPATION Last administered on 11:52; Admin Dose 100 MG; Start 05/01/16 at 20:30 Magnesium Hydroxide (Milk Of Mag) 30 ml DAILY PRN PO CONSTIPATION Last administered on 05/03/16 11:52; Admin Dose 30 ML; Start 05/01/16 at 20:30 Bisacodyl (Dulcolax) 5 mg DAILY PRN PO CONSTIPATION; Start 05/01/16 at 20:30 Bisacodyl (Dulcolax Supp) 10 mg DAILY PRN [place] CONSTIPATION; Start 05/01/16 at 20: 30 Sodium Biphosphate/ Sodium Phosphate (Fleet Enema) 133 ml DAILY PRN [place] CONSTIPATION; Start 05/01/16 at 20:30 Pantoprazole (Protonix Iv) 40 mg DAILY@06 IV Last administered on 05/17/16 05: 18; Admin Dose 40 MG; Start 05/02/16 at 06:00 Tamsulosin HCl (Flomax) 0.4 mg HS PO Last administered on 05/17/16 21:22; Admin Dose 0.4 MG; Start 05/03/16 at 21:00 Aspirin (Aspirin) 325 mg DAILY PO Last administered on 05/09/16 08:08; Admin Dose 325 MG; Start 05/04/16 at 09:00; Status Future Hold Lorazepam (Ativan) 2 mg Q2 PRN IV AGITATION Last administered on 05/09/16 12: 35; Admin Dose 2 MG; Start 05/05/16 at 18:00 Morphine Sulfate (morphine) 2 mg Q2H PRN IV PAIN Last administered on 01:35; Admin Dose 2 MG; Start 05/05/16 at 18:00 IV Flush (NS 10 ml) 10 ml PRN PRN IV FLUSH LINE; Start 05/06/16 at 13:00 Enoxaparin Sodium (Lovenox) 60 mg DAILY SC Last administered on 05/17/16 09:29 ; Admin Dose 60 MG; Start 05/06/16 at 13:30 Docusate Sodium (Colace Liquid Cup) 100 mg TID NGT Last administered on 21:21; Admin Dose 100 MG; Start 05/08/16 at 21:00 Polyethylene Glycol (Miralax) 17 gm DAILY GTB Last administered on 05/17/16 09 :27; Admin Dose 17 GM; Start 05/09/16 at 09:00 Carvedilol (Coreg) 3.125 mg BID NGT Last administered on 05/17/16 21:22; Admin Dose 3.125 MG; Start 05/10/16 at 21:00 Hydralazine HCl 10 mg 10 mg Q8 PO Last administered on 05/17/16 21:22; Admin Dose 10 MG; Start 05/10/16 at 14:00 Dextrose (D5W) 1,000 ml @ 50 mls/hr Q20H IV Last administered on 05/14/16 21: 30; Admin Dose 50 MLS/HR; Start 05/12/16 at 09:30 Metronidazole 500 mg 500 mg Q8 NGT Last administered on 05/17/16 21:22; Admin Dose 500 MG; Start 05/13/16 at 22:00 Potassium Chloride (KCl 40 MEQ/250 ML NS) 250 ml @ 62.5 mls/hr ONCE ONCE IVPB Last administered on 05/17/16 21:06; Admin Dose 62.5 MLS/HR; Start 05/17/16 at 20:00; Stop 05/17/16 at 23:59 Benazepril HCl (Lotensin) 10 mg DAILY PO ; Start 05/18/16 at 09:00 HOLLI LINDER MD May 17, 2016 23:48
[2016-05-18] VITALS (12 sets, daily range): BP systolic 90–133; BP diastolic 53–61; PULSE 60–83; RESP 18–20
[2016-05-18] MEDS: DEXTROSE 5% 1,000 ML IV SCH ×2 (05:30→14:59)
[2016-05-18] MEDS: metroNIDAZOLE 500 MG TAB NGT SCH ×2 (05:56→13:19)
[2016-05-18] MEDS: PANTOPRAZOLE 40 MG INJ IV SCH (05:56)
[2016-05-18 06:54] LABS: ADD SCAN DIFF NO
[2016-05-18 07:05] LABS: BASOPHILS % 0.1 % (0.0-2.0); EOSINOPHILS # 0.1 10^3/ul (0.0-0.5); EOSINOPHILS % 0.5 % (0.0-7.0); HEMATOCRIT 33.2 % (42.0-52.0); HEMOGLOBIN 10.9 g/dl (14.0-18.0); LYMPHOCYTES % 5.3 % (15.0-51.0); MEAN CORPUSCULAR HEMOGLOBIN 30.6 pg (29.0-33.0); MEAN CORPUSCULAR HGB CONC 32.8 g/dl (32.0-37.0); MEAN CORPUSCULAR VOLUME 93.3 fl (82.0-101.0); MEAN PLATELET VOLUME 12.4 fl (7.4-10.4); MONOCYTE # 0.9 10^3/ul (0.3-0.9); MONOCYTES % 4.7 % (0.0-11.0); NEUTROPHIL # 16.7 10^3/ul (1.6-7.5); NEUTROPHILS % 87.6 % (39.0-77.0); PLATELET COUNT 116 10^3/UL (140-415); RED BLOOD COUNT 3.56 10^6/ul (4.70-6.10); RED CELL DISTRIBUTION WIDTH 14.2 % (11.5-14.5)
[2016-05-18 07:06] LABS: POTASSIUM 3.8 mmol/L (3.5-5.1)
[2016-05-18 07:09] LABS: CREATININE 0.9 mg/dl (0.61-1.24)
[2016-05-18 07:10] LABS: CALCIUM 7.5 mg/dl (8.4-10.2)
[2016-05-18] MEDS: ENOXAPARIN 60 MG/0.6 ML SYG SC SCH (09:00)
[2016-05-18] MEDS: DOCUSATE SODIUM 10 MG/ML (10ML CUP) NGT SCH ×3 (10:39→21:06)
[2016-05-18] MEDS: POTASSIUM CHLORIDE (SR) 8 MEQ CAP PO SCH (10:39)
[2016-05-18] MEDS: POLYETHYLENE GLYCOL 17 GM PACKET GTB SCH (10:39)
[2016-05-18] MEDS: BENAZEPRIL 10 MG TAB PO SCH (10:42)
[2016-05-18] MEDS: DOCUSATE SODIUM 100 MG CAP PO PRN (13:14)
--- NOTE | 2016-05-18 13:56 | CONS ---
Date/Time of Note Date/Time of Note DATE: 05/18/16 TIME: 13:52 Assessment/Plan Assessment/Plan Chief Complaint/Hosp Course INFECTIOUS DISEASE PROGRESS NOTE SUBJECTIVE: No acute events. The patient is noncommunicative. Opens eyes, looks comfortable. As per staff, he has copious secretions and requires suctioning. INDWELLINGS: NG tube, Alfonso catheter, PICC line. PHYSICAL EXAMINATION: GENERAL: This is a fragile, elderly man in no distress. HEENT: Head atraumatic, normocephalic. Sclerae anicteric. Buccal mucosa dry. NECK: Supple, trachea midline. CHEST: Rise symmetrical. Breath sounds diminished to bases. HEART: S1, S2. ABDOMEN: Soft, bowel tones present. EXTREMITIES: Without cyanosis. ASSESSMENT: 1. Persistent leukocytosis, status post steroids, blood culture on May 12 negative. 2. Status post pneumonia. 3. Respiratory failure. 4. Dysphagia. 5. History of benign prostatic hypertrophy. PLAN: The patient remains stable. Continue present care, aspiration precautions , pending PEG. 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 Problems: Consultation Date/Type/Reason Admit Date/Time May 01, 2016 at 20:18 Initial Consult Date 05/05/16 Type of Consultation: id Referring Provider: HOLLI LINDER MD Exam/Review of Systems Vital Signs Vitals Vital Signs Date Time Temp Pulse Resp B/P Pulse Ox O2 Delivery O2 Flow Rate FiO2 05/18/16 12:29 83 05/18/16 12:01 98.3 19 90/53 96 05/17/16 23:18 3.0 05/17/16 20:00 Nasal Cannula Intake and Output 05/17/16 05/17/16 05/18/16 15:00 23:00 07:00 Intake Total 560 ml 1160 ml Output Total 950 ml 650 ml Balance -390 ml 510 ml Results Result Diagram: 05/18/16 0619 05/18/16 0619 Results 24 hrs Laboratory Tests Test 05/18/16 06:19 White Blood Count 19.0 #H Red Blood Count 3.56 L Hemoglobin 10.9 L Hematocrit 33.2 L Mean Corpuscular Volume 93.3 Mean Corpuscular Hemoglobin 30.6 Mean Corpuscular Hemoglobin Concent 32.8 Red Cell Distribution Width 14.2 Platelet Count 116 L Mean Platelet Volume 12.4 H Neutrophils % 87.6 H Lymphocytes % 5.3 L Monocytes % 4.7 Eosinophils % 0.5 Basophils % 0.1 Nucleated Red Blood Cells % 0.0 Neutrophils # 16.7 H Lymphocytes # 1.0 Monocytes # 0.9 Eosinophils # 0.1 Basophils # 0.0 Nucleated Red Blood Cells # 0.0 Sodium Level 138 Potassium Level 3.8 Chloride Level 103 Carbon Dioxide Level 27 Anion Gap 12 Blood Urea Nitrogen 25 H Creatinine 0.90 Glucose Level 101 Calcium Level 7.5 L Medications Medications Current Medications Ondansetron HCl (Zofran Inj) 4 mg Q6H PRN IV NAUSEA AND/OR VOMITING; Start 05/01 at 20:30 Acetaminophen (Tylenol Tab) 650 mg Q6H PRN PO PAIN LEVEL 1-3 OR FEVER Last administered on 05/06/16 08:23; Admin Dose 650 MG; Start 05/01/16 at 20:30 Acetaminophen (Tylenol Supp) 650 mg Q6H PRN [place] PAIN LEVEL 1-3 OR FEVER; Start 05/01/16 at 20:30 Docusate Sodium (Colace) 100 mg Q12H PRN PO CONSTIPATION Last administered on 13:14; Admin Dose 100 MG; Start 05/01/16 at 20:30 Magnesium Hydroxide (Milk Of Mag) 30 ml DAILY PRN PO CONSTIPATION Last administered on 05/03/16 11:52; Admin Dose 30 ML; Start 05/01/16 at 20:30 Bisacodyl (Dulcolax) 5 mg DAILY PRN PO CONSTIPATION; Start 05/01/16 at 20:30 Bisacodyl (Dulcolax Supp) 10 mg DAILY PRN [place] CONSTIPATION; Start 05/01/16 at 20: 30 Sodium Biphosphate/ Sodium Phosphate (Fleet Enema) 133 ml DAILY PRN [place] CONSTIPATION; Start 05/01/16 at 20:30 Pantoprazole (Protonix Iv) 40 mg DAILY@06 IV Last administered on 05/18/16 05: 56; Admin Dose 40 MG; Start 05/02/16 at 06:00 Tamsulosin HCl (Flomax) 0.4 mg HS PO Last administered on 05/17/16 21:22; Admin Dose 0.4 MG; Start 05/03/16 at 21:00 Aspirin (Aspirin) 325 mg DAILY PO Last administered on 05/09/16 08:08; Admin Dose 325 MG; Start 05/04/16 at 09:00; Status Future Hold Lorazepam (Ativan) 2 mg Q2 PRN IV AGITATION Last administered on 05/09/16 12: 35; Admin Dose 2 MG; Start 05/05/16 at 18:00 Morphine Sulfate (morphine) 2 mg Q2H PRN IV PAIN Last administered on 01:35; Admin Dose 2 MG; Start 05/05/16 at 18:00 IV Flush (NS 10 ml) 10 ml PRN PRN IV FLUSH LINE; Start 05/06/16 at 13:00 Enoxaparin Sodium (Lovenox) 60 mg DAILY SC Last administered on 05/17/16 09:29 ; Admin Dose 60 MG; Start 05/06/16 at 13:30 Docusate Sodium (Colace Liquid Cup) 100 mg TID NGT Last administered on 13:14; Admin Dose 100 MG; Start 05/08/16 at 21:00 Polyethylene Glycol (Miralax) 17 gm DAILY GTB Last administered on 05/18/16 10 :39; Admin Dose 17 GM; Start 05/09/16 at 09:00 Carvedilol (Coreg) 3.125 mg BID NGT Last administered on 05/18/16 10:40; Admin Dose 3.125 MG; Start 05/10/16 at 21:00 Hydralazine HCl 10 mg 10 mg Q8 PO Last administered on 05/18/16 05:57; Admin Dose 10 MG; Start 05/10/16 at 14:00 Dextrose (D5W) 1,000 ml @ 50 mls/hr Q20H IV Last administered on 05/14/16 21: 30; Admin Dose 50 MLS/HR; Start 05/12/16 at 09:30 Metronidazole (Flagyl) 500 mg Q8 NGT Last administered on 05/18/16 13:19; Admin Dose 500 MG; Start 05/13/16 at 22:00 Benazepril HCl (Lotensin) 10 mg DAILY PO Last administered on 05/18/16 10:42; Admin Dose 10 MG; Start 05/18/16 at 09:00 Potassium Chloride (Micro-K) 24 meq DAILY PO Last administered on 05/18/16 10: 39; Admin Dose 24 MEQ; Start 05/18/16 at 09:00 JOSE G CUNNINGHAM NP May 18, 2016 13:56
--- NOTE | 2016-05-18 17:45 | CONS ---
Date/Time of Note Date/Time of Note DATE: 05/18/16 TIME: 17:42 Assessment/Plan Assessment/Plan Chief Complaint/Hosp Course IMPRESSION: 1. Respiratory failure s/p extubation 2. 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 negative troponin x 3 this admit. s/p lexsican LVEF 22%/no ischemia/prior [place] 3. 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 Possible cardiac arrhythmia-AFL/AF now rate controlled s/p IVP digoxin 5. History of asthma/chronic obstructive pulmonary disease. 6. Glaucoma. 7. History of bradycardia. 8. Hypotension-improved off pressors 9. Leukocytosis. 10. Altered mental state. 11. Fevers 12.ARF-slowly improving 14.Hypernatremia Recc: -Tele -serial ecg's -Continue BB -Continue ACEI now that erp pm improved -Continue steroids/bronchodilators -Continue lovenox but follow for bleeding/hematuria -Follow volume status closely and renal fxn closely which is slowly improving Problems: Consultation Date/Type/Reason Admit Date/Time May 01, 2016 at 20:18 Initial Consult Date 05/02/16 Type of Consultation: Cardiology Reason for Consultation Cardiomyopathy Referring Provider: HOLLI LINDER MD Exam/Review of Systems Vital Signs Vitals Vital Signs Date Time Temp Pulse Resp B/P Pulse Ox O2 Delivery O2 Flow Rate FiO2 05/18/16 16:19 77 05/18/16 12:01 98.3 19 90/53 96 05/18/16 08:20 Nasal Cannula 3.0 Intake and Output 05/17/16 05/17/16 05/18/16 15:00 23:00 07:00 Intake Total 560 ml 1160 ml Output Total 950 ml 650 ml Balance -390 ml 510 ml Exam Review of Systems: CONSTITUTIONAL: No fevers, chills. PULMONARY: No sob CARDIOVASCULAR: No chest pain/palpitations GASTROINTESTINAL: No nausea/vomiting. GENITOURINARY: No hematuria/dysuria. MUSCULOSKELETAL: No myalgias/arthalgias. PSYCHIATRIC: The patient denies depression. NEUROLOGIC: lethargic Psych: no complaints Head: normocephalic ENMT: mucosa pink and moist Neck: jvd (9 cm water), supple Respiratory: diminished breath sounds (at bases/ZB) Cardiovascular: regular rate and rhythm Gastrointestinal: non-tender, soft Musculoskeletal: muscle tone (normal) Extremities: edema Neurological: other Results Result Diagram: 05/18/16 0619 05/18/16 0619 Results 24 hrs Laboratory Tests Test 05/18/16 06:19 White Blood Count 19.0 #H Red Blood Count 3.56 L Hemoglobin 10.9 L Hematocrit 33.2 L Mean Corpuscular Volume 93.3 Mean Corpuscular Hemoglobin 30.6 Mean Corpuscular Hemoglobin Concent 32.8 Red Cell Distribution Width 14.2 Platelet Count 116 L Mean Platelet Volume 12.4 H Neutrophils % 87.6 H Lymphocytes % 5.3 L Monocytes % 4.7 Eosinophils % 0.5 Basophils % 0.1 Nucleated Red Blood Cells % 0.0 Neutrophils # 16.7 H Lymphocytes # 1.0 Monocytes # 0.9 Eosinophils # 0.1 Basophils # 0.0 Nucleated Red Blood Cells # 0.0 Sodium Level 138 Potassium Level 3.8 Chloride Level 103 Carbon Dioxide Level 27 Anion Gap 12 Blood Urea Nitrogen 25 H Creatinine 0.90 Glucose Level 101 Calcium Level 7.5 L Medications Medications Current Medications Ondansetron HCl (Zofran Inj) 4 mg Q6H PRN IV NAUSEA AND/OR VOMITING; Start 05/01 at 20:30 Acetaminophen (Tylenol Tab) 650 mg Q6H PRN PO PAIN LEVEL 1-3 OR FEVER Last administered on 05/06/16 08:23; Admin Dose 650 MG; Start 05/01/16 at 20:30 Acetaminophen (Tylenol Supp) 650 mg Q6H PRN [place] PAIN LEVEL 1-3 OR FEVER; Start 05/01/16 at 20:30 Docusate Sodium (Colace) 100 mg Q12H PRN PO CONSTIPATION Last administered on 13:14; Admin Dose 100 MG; Start 05/01/16 at 20:30 Magnesium Hydroxide (Milk Of Mag) 30 ml DAILY PRN PO CONSTIPATION Last administered on 05/03/16 11:52; Admin Dose 30 ML; Start 05/01/16 at 20:30 Bisacodyl (Dulcolax) 5 mg DAILY PRN PO CONSTIPATION; Start 05/01/16 at 20:30 Bisacodyl (Dulcolax Supp) 10 mg DAILY PRN [place] CONSTIPATION; Start 05/01/16 at 20: 30 Sodium Biphosphate/ Sodium Phosphate (Fleet Enema) 133 ml DAILY PRN [place] CONSTIPATION; Start 05/01/16 at 20:30 Pantoprazole (Protonix Iv) 40 mg DAILY@06 IV Last administered on 05/18/16 05: 56; Admin Dose 40 MG; Start 05/02/16 at 06:00 Tamsulosin HCl (Flomax) 0.4 mg HS PO Last administered on 05/17/16 21:22; Admin Dose 0.4 MG; Start 05/03/16 at 21:00 Aspirin (Aspirin) 325 mg DAILY PO Last administered on 05/09/16 08:08; Admin Dose 325 MG; Start 05/04/16 at 09:00; Status Future Hold Lorazepam (Ativan) 2 mg Q2 PRN IV AGITATION Last administered on 05/09/16 12: 35; Admin Dose 2 MG; Start 05/05/16 at 18:00 Morphine Sulfate (morphine) 2 mg Q2H PRN IV PAIN Last administered on 01:35; Admin Dose 2 MG; Start 05/05/16 at 18:00 IV Flush (NS 10 ml) 10 ml PRN PRN IV FLUSH LINE; Start 05/06/16 at 13:00 Enoxaparin Sodium (Lovenox) 60 mg DAILY SC Last administered on 05/17/16 09:29 ; Admin Dose 60 MG; Start 05/06/16 at 13:30 Docusate Sodium (Colace Liquid Cup) 100 mg TID NGT Last administered on 13:14; Admin Dose 100 MG; Start 05/08/16 at 21:00 Polyethylene Glycol (Miralax) 17 gm DAILY GTB Last administered on 05/18/16 10 :39; Admin Dose 17 GM; Start 05/09/16 at 09:00 Carvedilol (Coreg) 3.125 mg BID NGT Last administered on 05/18/16 10:40; Admin Dose 3.125 MG; Start 05/10/16 at 21:00 Hydralazine HCl 10 mg 10 mg Q8 PO Last administered on 05/18/16 05:57; Admin Dose 10 MG; Start 05/10/16 at 14:00 Dextrose (D5W) 1,000 ml @ 50 mls/hr Q20H IV Last administered on 05/18/16 14: 59; Admin Dose 50 MLS/HR; Start 05/12/16 at 09:30 Benazepril HCl (Lotensin) 10 mg DAILY PO Last administered on 05/18/16 10:42; Admin Dose 10 MG; Start 05/18/16 at 09:00 Potassium Chloride (Micro-K) 24 meq DAILY PO Last administered on 05/18/16 10: 39; Admin Dose 24 MEQ; Start 05/18/16 at 09:00 JAYA GORE May 18, 2016 17:45
[2016-05-18] MEDS: TAMSULOSIN (SR) 0.4 MG CAP PO SCH (21:08)
--- NOTE | 2016-05-18 23:08 | PN ---
Date/Time of Note Date/Time of Note DATE: 05/18/16 TIME: 23:00 Assessment/Plan VTE Prophylaxis VTE Prophylaxis Intervention: other Lines/Catheters IV Catheter Type (from Nrsg): PICC Line Central line still needed: Yes Urinary Cath still in place: Yes Reason Cath still needed: urinary retention, other (indicate) Assessment/Plan Chief Complaint/Hosp Course IMPRESSION: The patient has 1. s/p ACUTE RES FAILURE 2. hypernatremia better 3. Hypertension. 4. anxiety 5. PACEMAKER HX 6 low ef 7 leucocytosis 8 RHINA 9 hypokalemia 10 SEPSIS plan cardio eval bmp peg kcl Problems: Exam/Review of Systems Vital Signs Vitals Vital Signs Date Time Temp Pulse Resp B/P Pulse Ox O2 Delivery O2 Flow Rate FiO2 05/18/16 20:41 75 05/18/16 20:07 97.8 18 128/60 93 05/18/16 20:03 4.0 05/18/16 19:15 Nasal Cannula Intake and Output 05/17/16 05/17/16 05/18/16 15:00 23:00 07:00 Intake Total 560 ml 1160 ml Output Total 950 ml 650 ml Balance -390 ml 510 ml Exam Respiratory: diminished breath sounds Cardiovascular: regular rate and rhythm Gastrointestinal: soft Results Result Diagram: 05/18/16 0619 05/18/16 0619 Results 24 hrs Laboratory Tests Test 05/18/16 06:19 White Blood Count 19.0 #H Red Blood Count 3.56 L Hemoglobin 10.9 L Hematocrit 33.2 L Mean Corpuscular Volume 93.3 Mean Corpuscular Hemoglobin 30.6 Mean Corpuscular Hemoglobin Concent 32.8 Red Cell Distribution Width 14.2 Platelet Count 116 L Mean Platelet Volume 12.4 H Neutrophils % 87.6 H Lymphocytes % 5.3 L Monocytes % 4.7 Eosinophils % 0.5 Basophils % 0.1 Nucleated Red Blood Cells % 0.0 Neutrophils # 16.7 H Lymphocytes # 1.0 Monocytes # 0.9 Eosinophils # 0.1 Basophils # 0.0 Nucleated Red Blood Cells # 0.0 Sodium Level 138 Potassium Level 3.8 Chloride Level 103 Carbon Dioxide Level 27 Anion Gap 12 Blood Urea Nitrogen 25 H Creatinine 0.90 Glucose Level 101 Calcium Level 7.5 L Medications Medications Current Medications Ondansetron HCl (Zofran Inj) 4 mg Q6H PRN IV NAUSEA AND/OR VOMITING; Start 3/6 /17 at 20:30 Acetaminophen (Tylenol Tab) 650 mg Q6H PRN PO PAIN LEVEL 1-3 OR FEVER Last administered on 05/06/16 08:23; Admin Dose 650 MG; Start 05/01/16 at 20:30 Acetaminophen (Tylenol Supp) 650 mg Q6H PRN [place] PAIN LEVEL 1-3 OR FEVER; Start 05/01/16 at 20:30 Docusate Sodium (Colace) 100 mg Q12H PRN PO CONSTIPATION Last administered on 13:14; Admin Dose 100 MG; Start 05/01/16 at 20:30 Magnesium Hydroxide (Milk Of Mag) 30 ml DAILY PRN PO CONSTIPATION Last administered on 05/03/16 11:52; Admin Dose 30 ML; Start 05/01/16 at 20:30 Bisacodyl (Dulcolax) 5 mg DAILY PRN PO CONSTIPATION; Start 05/01/16 at 20:30 Bisacodyl (Dulcolax Supp) 10 mg DAILY PRN [place] CONSTIPATION; Start 05/01/16 at 20: 30 Sodium Biphosphate/ Sodium Phosphate (Fleet Enema) 133 ml DAILY PRN [place] CONSTIPATION; Start 05/01/16 at 20:30 Pantoprazole (Protonix Iv) 40 mg DAILY@06 IV Last administered on 05/18/16 05: 56; Admin Dose 40 MG; Start 05/02/16 at 06:00 Tamsulosin HCl (Flomax) 0.4 mg HS PO Last administered on 05/18/16 21:08; Admin Dose 0.4 MG; Start 05/03/16 at 21:00 Aspirin (Aspirin) 325 mg DAILY PO Last administered on 05/09/16 08:08; Admin Dose 325 MG; Start 05/04/16 at 09:00; Status Future Hold Lorazepam (Ativan) 2 mg Q2 PRN IV AGITATION Last administered on 05/09/16 12: 35; Admin Dose 2 MG; Start 05/05/16 at 18:00 Morphine Sulfate (morphine) 2 mg Q2H PRN IV PAIN Last administered on 01:35; Admin Dose 2 MG; Start 05/05/16 at 18:00 IV Flush (NS 10 ml) 10 ml PRN PRN IV FLUSH LINE; Start 05/06/16 at 13:00 Enoxaparin Sodium (Lovenox) 60 mg DAILY SC Last administered on 05/18/16 09:00 ; Admin Dose 60 MG; Start 05/06/16 at 13:30 Docusate Sodium (Colace Liquid Cup) 100 mg TID NGT Last administered on 21:06; Admin Dose 100 MG; Start 05/08/16 at 21:00 Polyethylene Glycol (Miralax) 17 gm DAILY GTB Last administered on 05/18/16 10 :39; Admin Dose 17 GM; Start 05/09/16 at 09:00 Carvedilol 3.125 mg 3.125 mg BID NGT Last administered on 05/18/16 21:06; Admin Dose 3.125 MG; Start 05/10/16 at 21:00 Dextrose (D5W) 1,000 ml @ 50 mls/hr Q20H IV Last administered on 05/18/16 14: 59; Admin Dose 50 MLS/HR; Start 05/12/16 at 09:30 Benazepril HCl (Lotensin) 10 mg DAILY PO Last administered on 05/18/16 10:42; Admin Dose 10 MG; Start 05/18/16 at 09:00 Potassium Chloride (Micro-K) 24 meq DAILY PO Last administered on 05/18/16 10: 39; Admin Dose 24 MEQ; Start 05/18/16 at 09:00 HOLLI LINDER MD May 18, 2016 23:08
[2016-05-19] VITALS (13 sets, daily range): BP systolic 102–128; BP diastolic 57–87; PULSE 63–92; RESP 18–21
[2016-05-19] MEDS: DEXTROSE 5% 1,000 ML IV SCH ×3 (00:32→20:51)
[2016-05-19] MEDS: PANTOPRAZOLE 40 MG INJ IV SCH (05:38)
[2016-05-19 07:55] LABS: ADD SCAN DIFF NO
[2016-05-19 07:58] LABS: ABNORMAL IP MESSAGE 1; BASOPHILS % 0.2 % (0.0-2.0); EOSINOPHILS # 0.2 10^3/ul (0.0-0.5); EOSINOPHILS % 0.8 % (0.0-7.0); HEMATOCRIT 37.5 % (42.0-52.0); HEMOGLOBIN 11.8 g/dl (14.0-18.0); MEAN CORPUSCULAR HEMOGLOBIN 29.8 pg (29.0-33.0); MEAN CORPUSCULAR HGB CONC 31.5 g/dl (32.0-37.0); MEAN CORPUSCULAR VOLUME 94.7 fl (82.0-101.0); MEAN PLATELET VOLUME 13.7 fl (7.4-10.4); MONOCYTES % 5.1 % (0.0-11.0); NEUTROPHIL # 16.7 10^3/ul (1.6-7.5); NEUTROPHILS % 87.5 % (39.0-77.0); PLATELET COUNT 77 10^3/UL (140-415); RED BLOOD COUNT 3.96 10^6/ul (4.70-6.10); RED CELL DISTRIBUTION WIDTH 14.3 % (11.5-14.5)
[2016-05-19] MEDS: POLYETHYLENE GLYCOL 17 GM PACKET GTB SCH (10:22)
[2016-05-19] MEDS: POTASSIUM CHLORIDE (SR) 8 MEQ CAP PO SCH (10:22)
[2016-05-19] MEDS: BENAZEPRIL 10 MG TAB PO SCH (10:23)
[2016-05-19] MEDS: DOCUSATE SODIUM 10 MG/ML (10ML CUP) NGT SCH ×3 (10:23→20:51)
[2016-05-19] MEDS: ENOXAPARIN 60 MG/0.6 ML SYG SC SCH (10:34)
--- NOTE | 2016-05-19 12:37 | CONS ---
Date/Time of Note Date/Time of Note DATE: 05/19/16 TIME: 12:34 Assessment/Plan Assessment/Plan Chief Complaint/Hosp Course IMPRESSION: 1. Respiratory failure s/p extubation-stable 2. 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 negative troponin x 3 this admit. s/p lexsican LVEF 22%/no ischemia/prior [place] 3. 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 Possible cardiac arrhythmia-AFL/AF now rate controlled s/p IVP digoxin 5. History of asthma/chronic obstructive pulmonary disease. 6. Glaucoma. 7. History of bradycardia. 8. Hypotension-improved off pressors 9. Leukocytosis. 10. Altered mental state. 11. Fevers 12.ARF-slowly improving 14.Hypernatremia Recc: -Tele -serial ecg's -Continue BB/ACEI -Continue steroids/bronchodilators -Continue lovenox but follow for bleeding/hematuria -Follow volume status closely and renal fxn closely which is significantly improved with additional lasix as necessary Problems: Consultation Date/Type/Reason Admit Date/Time May 01, 2016 at 20:18 Initial Consult Date 05/02/16 Type of Consultation: Cardiology Reason for Consultation Cardiomyopathy Referring Provider: HOLLI LINDER MD Exam/Review of Systems Vital Signs Vitals Vital Signs Date Time Temp Pulse Resp B/P Pulse Ox O2 Delivery O2 Flow Rate FiO2 05/19/16 12:30 98.0 81 21 122/58 96 05/19/16 09:54 4.0 05/18/16 19:15 Nasal Cannula Intake and Output 05/18/16 05/18/16 05/19/16 15:00 23:00 07:00 Intake Total 380 ml 1500 ml Output Total 850 ml 600 ml Balance -470 ml 900 ml Exam Review of Systems: CONSTITUTIONAL: No fevers, chills. PULMONARY: No sob CARDIOVASCULAR: No chest pain/palpitations GASTROINTESTINAL: No nausea/vomiting. GENITOURINARY: No hematuria/dysuria. MUSCULOSKELETAL: No myagias/arthalgias. PSYCHIATRIC: The patient denies depression. NEUROLOGIC: lethargic Constitutional: other (sleeping) Psych: no complaints Head: normocephalic ENMT: mucosa pink and moist Neck: jvd (9 cm water), supple Respiratory: diminished breath sounds (at bases/B) Cardiovascular: regular rate and rhythm Gastrointestinal: non-tender, soft Musculoskeletal: muscle weakness (generalized) Extremities: edema (trace/B) Neurological: lethargic Results Result Diagram: 05/19/16 0652 05/18/16 0619 Results 24 hrs Laboratory Tests Test 05/19/16 06:52 White Blood Count 19.0 H Red Blood Count 3.96 L Hemoglobin 11.8 L Hematocrit 37.5 L Mean Corpuscular Volume 94.7 Mean Corpuscular Hemoglobin 29.8 Mean Corpuscular Hemoglobin Concent 31.5 L Red Cell Distribution Width 14.3 Platelet Count 77 #L Mean Platelet Volume 13.7 H Neutrophils % 87.5 H Lymphocytes % 5.0 L Monocytes % 5.1 Eosinophils % 0.8 Basophils % 0.2 Nucleated Red Blood Cells % 0.0 Neutrophils # 16.7 H Lymphocytes # 1.0 Monocytes # 1.0 H Eosinophils # 0.2 Basophils # 0.0 Nucleated Red Blood Cells # 0.0 Medications Medications Current Medications Ondansetron HCl (Zofran Inj) 4 mg Q6H PRN IV NAUSEA AND/OR VOMITING; Start 05/01 at 20:30 Acetaminophen (Tylenol Tab) 650 mg Q6H PRN PO PAIN LEVEL 1-3 OR FEVER Last administered on 05/06/16 08:23; Admin Dose 650 MG; Start 05/01/16 at 20:30 Acetaminophen (Tylenol Supp) 650 mg Q6H PRN [place] PAIN LEVEL 1-3 OR FEVER; Start 05/01/16 at 20:30 Docusate Sodium (Colace) 100 mg Q12H PRN PO CONSTIPATION Last administered on 13:14; Admin Dose 100 MG; Start 05/01/16 at 20:30 Magnesium Hydroxide (Milk Of Mag) 30 ml DAILY PRN PO CONSTIPATION Last administered on 05/03/16 11:52; Admin Dose 30 ML; Start 05/01/16 at 20:30 Bisacodyl (Dulcolax) 5 mg DAILY PRN PO CONSTIPATION; Start 05/01/16 at 20:30 Bisacodyl (Dulcolax Supp) 10 mg DAILY PRN [place] CONSTIPATION; Start 05/01/16 at 20: 30 Sodium Biphosphate/ Sodium Phosphate (Fleet Enema) 133 ml DAILY PRN [place] CONSTIPATION; Start 05/01/16 at 20:30 Pantoprazole (Protonix Iv) 40 mg DAILY@06 IV Last administered on 05/19/16 05: 38; Admin Dose 40 MG; Start 05/02/16 at 06:00 Tamsulosin HCl (Flomax) 0.4 mg HS PO Last administered on 05/18/16 21:08; Admin Dose 0.4 MG; Start 05/03/16 at 21:00 Aspirin (Aspirin) 325 mg DAILY PO Last administered on 05/09/16 08:08; Admin Dose 325 MG; Start 05/04/16 at 09:00; Status Future Hold Lorazepam (Ativan) 2 mg Q2 PRN IV AGITATION Last administered on 05/09/16 12: 35; Admin Dose 2 MG; Start 05/05/16 at 18:00 Morphine Sulfate (morphine) 2 mg Q2H PRN IV PAIN Last administered on 01:35; Admin Dose 2 MG; Start 05/05/16 at 18:00 IV Flush (NS 10 ml) 10 ml PRN PRN IV FLUSH LINE; Start 05/06/16 at 13:00 Enoxaparin Sodium (Lovenox) 60 mg DAILY SC Last administered on 05/19/16 10:34 ; Admin Dose 60 MG; Start 05/06/16 at 13:30 Docusate Sodium (Colace Liquid Cup) 100 mg TID NGT Last administered on 10:23; Admin Dose 100 MG; Start 05/08/16 at 21:00 Polyethylene Glycol (Miralax) 17 gm DAILY GTB Last administered on 05/19/16 10 :22; Admin Dose 17 GM; Start 05/09/16 at 09:00 Carvedilol 3.125 mg 3.125 mg BID NGT Last administered on 05/19/16 10:23; Admin Dose 3.125 MG; Start 05/10/16 at 21:00 Dextrose (D5W) 1,000 ml @ 50 mls/hr Q20H IV Last administered on 05/19/16 05: 50; Admin Dose 50 MLS/HR; Start 05/12/16 at 09:30 Benazepril HCl (Lotensin) 10 mg DAILY PO Last administered on 05/19/16 10:23; Admin Dose 10 MG; Start 05/18/16 at 09:00 Potassium Chloride (Micro-K) 24 meq DAILY PO Last administered on 05/19/16t 10: 22; Admin Dose 24 MEQ; Start 05/18/16 at 09:00 JAYA GORE May 19, 2016 12:37
--- NOTE | 2016-05-19 12:56 | CONS ---
Date/Time of Note Date/Time of Note DATE: 05/19/16 TIME: 12:55 Assessment/Plan Assessment/Plan Chief Complaint/Hosp Course INFECTIOUS DISEASE PROGRESS NOTE SUBJECTIVE: No acute events. The patient is noncommunicative. INDWELLINGS: NG tube, Alfonso catheter, PICC line. PHYSICAL EXAMINATION: GENERAL: This is a fragile, elderly man in no distress. HEENT: Head atraumatic, normocephalic. Sclerae anicteric. Buccal mucosa dry. NECK: Supple, trachea midline. CHEST: Rise symmetrical. Breath sounds diminished to bases. HEART: S1, S2. ABDOMEN: Soft, bowel tones present. EXTREMITIES: Without cyanosis. ASSESSMENT: 1. Persistent leukocytosis, status post steroids, repeat cx negative 2. Status post pneumonia. 3. Respiratory failure. 4. Dysphagia. 5. History of benign prostatic hypertrophy. PLAN: The patient remains stable. Off abx. Continue present care, aspiration precautions, pending PEG. DW staff Problems: Consultation Date/Type/Reason Admit Date/Time May 01, 2016 at 20:18 Initial Consult Date 05/05/16 Type of Consultation: ID Referring Provider: HOLLI LINDER MD Exam/Review of Systems Vital Signs Vitals Vital Signs Date Time Temp Pulse Resp B/P Pulse Ox O2 Delivery O2 Flow Rate FiO2 05/19/16 12:30 98.0 81 21 122/58 96 05/19/16 09:54 4.0 05/18/16 19:15 Nasal Cannula Intake and Output 05/18/16 05/18/16 05/19/16 15:00 23:00 07:00 Intake Total 380 ml 1500 ml Output Total 850 ml 600 ml Balance -470 ml 900 ml Results Result Diagram: 05/19/16 0652 05/18/16 0619 Results 24 hrs Laboratory Tests Test 05/19/16 06:52 White Blood Count 19.0 H Red Blood Count 3.96 L Hemoglobin 11.8 L Hematocrit 37.5 L Mean Corpuscular Volume 94.7 Mean Corpuscular Hemoglobin 29.8 Mean Corpuscular Hemoglobin Concent 31.5 L Red Cell Distribution Width 14.3 Platelet Count 77 #L Mean Platelet Volume 13.7 H Neutrophils % 87.5 H Lymphocytes % 5.0 L Monocytes % 5.1 Eosinophils % 0.8 Basophils % 0.2 Nucleated Red Blood Cells % 0.0 Neutrophils # 16.7 H Lymphocytes # 1.0 Monocytes # 1.0 H Eosinophils # 0.2 Basophils # 0.0 Nucleated Red Blood Cells # 0.0 Medications Medications Current Medications Ondansetron HCl (Zofran Inj) 4 mg Q6H PRN IV NAUSEA AND/OR VOMITING; Start 05/01 at 20:30 Acetaminophen (Tylenol Tab) 650 mg Q6H PRN PO PAIN LEVEL 1-3 OR FEVER Last administered on 05/06/16 08:23; Admin Dose 650 MG; Start 05/01/16 at 20:30 Acetaminophen (Tylenol Supp) 650 mg Q6H PRN [place] PAIN LEVEL 1-3 OR FEVER; Start 05/01/16 at 20:30 Docusate Sodium (Colace) 100 mg Q12H PRN PO CONSTIPATION Last administered on 13:14; Admin Dose 100 MG; Start 05/01/16 at 20:30 Magnesium Hydroxide (Milk Of Mag) 30 ml DAILY PRN PO CONSTIPATION Last administered on 05/03/16 11:52; Admin Dose 30 ML; Start 05/01/16 at 20:30 Bisacodyl (Dulcolax) 5 mg DAILY PRN PO CONSTIPATION; Start 05/01/16 at 20:30 Bisacodyl (Dulcolax Supp) 10 mg DAILY PRN [place] CONSTIPATION; Start 05/01/16 at 20: 30 Sodium Biphosphate/ Sodium Phosphate (Fleet Enema) 133 ml DAILY PRN [place] CONSTIPATION; Start 05/01/16 at 20:30 Pantoprazole (Protonix Iv) 40 mg DAILY@06 IV Last administered on 05/19/16 05: 38; Admin Dose 40 MG; Start 05/02/16 at 06:00 Tamsulosin HCl (Flomax) 0.4 mg HS PO Last administered on 05/18/16 21:08; Admin Dose 0.4 MG; Start 05/03/16 at 21:00 Aspirin (Aspirin) 325 mg DAILY PO Last administered on 05/09/16 08:08; Admin Dose 325 MG; Start 05/04/16 at 09:00; Status Future Hold Lorazepam (Ativan) 2 mg Q2 PRN IV AGITATION Last administered on 05/09/16 12: 35; Admin Dose 2 MG; Start 05/05/16 at 18:00 Morphine Sulfate (morphine) 2 mg Q2H PRN IV PAIN Last administered on 01:35; Admin Dose 2 MG; Start 05/05/16 at 18:00 IV Flush (NS 10 ml) 10 ml PRN PRN IV FLUSH LINE; Start 05/06/16 at 13:00 Enoxaparin Sodium (Lovenox) 60 mg DAILY SC Last administered on 05/19/16 10:34 ; Admin Dose 60 MG; Start 05/06/16 at 13:30 Docusate Sodium (Colace Liquid Cup) 100 mg TID NGT Last administered on 10:23; Admin Dose 100 MG; Start 05/08/16 at 21:00 Polyethylene Glycol (Miralax) 17 gm DAILY GTB Last administered on 05/19/16 10 :22; Admin Dose 17 GM; Start 05/09/16 at 09:00 Carvedilol 3.125 mg 3.125 mg BID NGT Last administered on 05/19/16 10:23; Admin Dose 3.125 MG; Start 05/10/16 at 21:00 Dextrose (D5W) 1,000 ml @ 50 mls/hr Q20H IV Last administered on 05/19/16 05: 50; Admin Dose 50 MLS/HR; Start 05/12/16 at 09:30 Benazepril HCl (Lotensin) 10 mg DAILY PO Last administered on 05/19/16 10:23; Admin Dose 10 MG; Start 05/18/16 at 09:00 Potassium Chloride (Micro-K) 24 meq DAILY PO Last administered on 05/19/16 10: 22; Admin Dose 24 MEQ; Start 05/18/16 at 09:00 JOSE G CUNNINGHAM NP May 19, 2016 12:56
--- NOTE | 2016-05-19 14:25 | CONS ---
Date/Time of Note Date/Time of Note DATE: 05/19/16 TIME: 14:25 Assessment/Plan Assessment/Plan Additional Assessment/Plan Assessment/Plan Additional Assessment/Plan IMPRESSION: 1. Aspiration pneumonia. 2. Leukocytosis. 3. Status post pacemaker insertion. 4. Benign prostatic hypertrophy. 5. Legally blind. 6. Status post extubation. 7. History of bronchial asthma. 8. 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 dysphagia ,tolerating NG tube feeding Plan continue present care correction of electrolytes PEG ,family agreed Consultation Date/Type/Reason Admit Date/Time May 01, 2016 at 20:18 Initial Consult Date 05/05/16 Type of Consultation: ID Referring Provider: HOLLI LINDER MD 24 HR Interval Summary Constitutional: no complaints Exam/Review of Systems Vital Signs Vitals Vital Signs Date Time Temp Pulse Resp B/P Pulse Ox O2 Delivery O2 Flow Rate FiO2 05/19/16 12:30 98.0 81 21 122/58 96 05/19/16 09:54 4.0 05/19/16 08:00 Nasal Cannula Intake and Output 05/18/16 05/18/16 05/19/16 15:00 23:00 07:00 Intake Total 380 ml 1500 ml Output Total 850 ml 600 ml Balance -470 ml 900 ml Exam Constitutional: alert, oriented, well developed Psych: nl mood/affect, no complaints Head: atraumatic, normocephalic Eyes: EOMI, PERRL, nl conjunctiva, nl lids, nl sclera ENMT: nl external ears & nose, nl lips & teeth, nl nasal mucosa & septum Neck: non-tender, supple Respiratory: clear to auscultation, normal air movement Cardiovascular: nl pulses, regular rate and rhythm Gastrointestinal: nl liver, spleen, non-tender, soft Musculoskeletal: nl extremities to inspection, nl gait and stance Extremities: normal pulses Neurological: STAFF RADIOGRAPHER II-XII intact, nl mental status, nl speech, nl strength Skin: nl turgor, No rash or lesions Lymph: nl lymph nodes Results Result Diagram: 05/19/16 0652 05/18/16 0619 Results 24 hrs Laboratory Tests Test 05/19/16 06:52 White Blood Count 19.0 H Red Blood Count 3.96 L Hemoglobin 11.8 L Hematocrit 37.5 L Mean Corpuscular Volume 94.7 Mean Corpuscular Hemoglobin 29.8 Mean Corpuscular Hemoglobin Concent 31.5 L Red Cell Distribution Width 14.3 Platelet Count 77 #L Mean Platelet Volume 13.7 H Neutrophils % 87.5 H Lymphocytes % 5.0 L Monocytes % 5.1 Eosinophils % 0.8 Basophils % 0.2 Nucleated Red Blood Cells % 0.0 Neutrophils # 16.7 H Lymphocytes # 1.0 Monocytes # 1.0 H Eosinophils # 0.2 Basophils # 0.0 Nucleated Red Blood Cells # 0.0 Medications Medications Current Medications Ondansetron HCl (Zofran Inj) 4 mg Q6H PRN IV NAUSEA AND/OR VOMITING; Start 05/01 at 20:30 Acetaminophen (Tylenol Tab) 650 mg Q6H PRN PO PAIN LEVEL 1-3 OR FEVER Last administered on 05/06/16 08:23; Admin Dose 650 MG; Start 05/01/16 at 20:30 Acetaminophen (Tylenol Supp) 650 mg Q6H PRN [place] PAIN LEVEL 1-3 OR FEVER; Start 05/01/16 at 20:30 Docusate Sodium (Colace) 100 mg Q12H PRN PO CONSTIPATION Last administered on 13:14; Admin Dose 100 MG; Start 05/01/16 at 20:30 Magnesium Hydroxide (Milk Of Mag) 30 ml DAILY PRN PO CONSTIPATION Last administered on 05/03/16 11:52; Admin Dose 30 ML; Start 05/01/16 at 20:30 Bisacodyl (Dulcolax) 5 mg DAILY PRN PO CONSTIPATION; Start 05/01/16 at 20:30 Bisacodyl (Dulcolax Supp) 10 mg DAILY PRN [place] CONSTIPATION; Start 05/01/16 at 20: 30 Sodium Biphosphate/ Sodium Phosphate (Fleet Enema) 133 ml DAILY PRN [place] CONSTIPATION; Start 05/01/16 at 20:30 Pantoprazole (Protonix Iv) 40 mg DAILY@06 IV Last administered on 05/19/16 05: 38; Admin Dose 40 MG; Start 05/02/16 at 06:00 Tamsulosin HCl (Flomax) 0.4 mg HS PO Last administered on 05/18/16 21:08; Admin Dose 0.4 MG; Start 05/03/16 at 21:00 Aspirin (Aspirin) 325 mg DAILY PO Last administered on 05/09/16 08:08; Admin Dose 325 MG; Start 05/04/16 at 09:00; Status Future Hold Lorazepam (Ativan) 2 mg Q2 PRN IV AGITATION Last administered on 05/09/16 12: 35; Admin Dose 2 MG; Start 05/05/16 at 18:00 Morphine Sulfate (morphine) 2 mg Q2H PRN IV PAIN Last administered on 01:35; Admin Dose 2 MG; Start 05/05/16 at 18:00 IV Flush (NS 10 ml) 10 ml PRN PRN IV FLUSH LINE; Start 05/06/16 at 13:00 Enoxaparin Sodium (Lovenox) 60 mg DAILY SC Last administered on 05/19/16 10:34 ; Admin Dose 60 MG; Start 05/06/16 at 13:30 Docusate Sodium (Colace Liquid Cup) 100 mg TID NGT Last administered on 14:23; Admin Dose 100 MG; Start 05/08/16 at 21:00 Polyethylene Glycol (Miralax) 17 gm DAILY GTB Last administered on 05/19/16 10 :22; Admin Dose 17 GM; Start 05/09/16 at 09:00 Carvedilol 3.125 mg 3.125 mg BID NGT Last administered on 05/19/16 10:23; Admin Dose 3.125 MG; Start 05/10/16 at 21:00 Dextrose (D5W) 1,000 ml @ 50 mls/hr Q20H IV Last administered on 05/19/16 05: 50; Admin Dose 50 MLS/HR; Start 05/12/16 at 09:30 Benazepril HCl (Lotensin) 10 mg DAILY PO Last administered on 05/19/16 10:23; Admin Dose 10 MG; Start 05/18/16 at 09:00 Potassium Chloride (Micro-K) 24 meq DAILY PO Last administered on 05/19/16 10: 22; Admin Dose 24 MEQ; Start 05/18/16 at 09:00 NEVAEH WOODSON MD May 19, 2016 14:25
--- NOTE | 2016-05-19 14:39 | PN ---
Date/Time of Note Date/Time of Note DATE: 05/19/16 TIME: 14:36 Assessment/Plan VTE Prophylaxis VTE Prophylaxis Intervention: SCD's Lines/Catheters IV [facility]): P[facility] Line Central line still needed: Yes Urinary Cath still in place: Yes Reason Cath still needed: urinary retention Assessment/Plan Chief Complaint/Hosp Course 1. Aspirational pneumonia. improved 2. Status post pneumonia. 3. Respiratory failure. 4. Dysphagia, NG tube in for feeding. 5. History of benign prostatic hypertrophy. Problems: Assessment/Plan 1. GT placement, son signed consent for PEG 2. After procedure transfer to [facility] Subjective 24 Hr Interval Summary Constitutional: improved, no complaints Eyes: no complaints ENT: no complaints Respiratory: no complaints Exam/Review of Systems Vital Signs Vitals Vital Signs Date Time Temp Pulse Resp B/P Pulse Ox O2 Delivery O2 Flow Rate FiO2 05/19/16 12:30 98.0 81 21 122/58 96 05/19/16 09:54 4.0 05/19/16 08:00 Nasal Cannula Intake and Output 05/18/16 05/18/16 05/19/16 15:00 23:00 07:00 Intake Total 380 ml 1500 ml Output Total 850 ml 600 ml Balance -470 ml 900 ml Exam Constitutional: alert, oriented Psych: no complaints Head: atraumatic, normocephalic Eyes: nl conjunctiva ENMT: nl external ears & nose, nl lips & teeth Neck: non-tender, supple Respiratory: clear to auscultation, diminished breath sounds, normal air movement Cardiovascular: regular rate and rhythm Gastrointestinal: other (NG tube), soft Genitourinary - Male: nl penis Extremities: normal pulses Results Result Diagram: 05/19/16 0652 05/18/16 0619 Results 24 hrs Laboratory Tests Test 05/19/16 06:52 White Blood Count 19.0 H Red Blood Count 3.96 L Hemoglobin 11.8 L Hematocrit 37.5 L Mean Corpuscular Volume 94.7 Mean Corpuscular Hemoglobin 29.8 Mean Corpuscular Hemoglobin Concent 31.5 L Red Cell Distribution Width 14.3 Platelet Count 77 #L Mean Platelet Volume 13.7 H Neutrophils % 87.5 H Lymphocytes % 5.0 L Monocytes % 5.1 Eosinophils % 0.8 Basophils % 0.2 Nucleated Red Blood Cells % 0.0 Neutrophils # 16.7 H Lymphocytes # 1.0 Monocytes # 1.0 H Eosinophils # 0.2 Basophils # 0.0 Nucleated Red Blood Cells # 0.0 Medications Medications Current Medications Ondansetron HCl (Zofran Inj) 4 mg Q6H PRN IV NAUSEA AND/OR VOMITING; Start 05/01 at 20:30 Acetaminophen (Tylenol Tab) 650 mg Q6H PRN PO PAIN LEVEL 1-3 OR FEVER Last administered on 05/06/16 08:23; Admin Dose 650 MG; Start 05/01/16 at 20:30 Acetaminophen (Tylenol Supp) 650 mg Q6H PRN [place] PAIN LEVEL 1-3 OR FEVER; Start 05/01/16 at 20:30 Docusate Sodium (Colace) 100 mg Q12H PRN PO CONSTIPATION Last administered on 13:14; Admin Dose 100 MG; Start 05/01/16 at 20:30 Magnesium Hydroxide (Milk Of Mag) 30 ml DAILY PRN PO CONSTIPATION Last administered on 05/03/16 11:52; Admin Dose 30 ML; Start 05/01/16 at 20:30 Bisacodyl (Dulcolax) 5 mg DAILY PRN PO CONSTIPATION; Start 05/01/16 at 20:30 Bisacodyl (Dulcolax Supp) 10 mg DAILY PRN [place] CONSTIPATION; Start 05/01/16 at 20: 30 Sodium Biphosphate/ Sodium Phosphate (Fleet Enema) 133 ml DAILY PRN [place] CONSTIPATION; Start 05/01/16 at 20:30 Pantoprazole (Protonix Iv) 40 mg DAILY@06 IV Last administered on 05/19/16 05: 38; Admin Dose 40 MG; Start 05/02/16 at 06:00 Tamsulosin HCl (Flomax) 0.4 mg HS PO Last administered on 05/18/16 21:08; Admin Dose 0.4 MG; Start 05/03/16 at 21:00 Aspirin (Aspirin) 325 mg DAILY PO Last administered on 05/09/16 08:08; Admin Dose 325 MG; Start 05/04/16 at 09:00; Status Future Hold Lorazepam (Ativan) 2 mg Q2 PRN IV AGITATION Last administered on 05/09/16 12: 35; Admin Dose 2 MG; Start 05/05/16 at 18:00 Morphine Sulfate (morphine) 2 mg Q2H PRN IV PAIN Last administered on 01:35; Admin Dose 2 MG; Start 05/05/16 at 18:00 IV Flush (NS 10 ml) 10 ml PRN PRN IV FLUSH LINE; Start 05/06/16 at 13:00 Enoxaparin Sodium (Lovenox) 60 mg DAILY SC Last administered on 05/19/16 10:34 ; Admin Dose 60 MG; Start 05/06/16 at 13:30 Docusate Sodium (Colace Liquid Cup) 100 mg TID NGT Last administered on 14:23; Admin Dose 100 MG; Start 05/08/16 at 21:00 Polyethylene Glycol (Miralax) 17 gm DAILY GTB Last administered on 05/19/16 10 :22; Admin Dose 17 GM; Start 05/09/16 at 09:00 Carvedilol 3.125 mg 3.125 mg BID NGT Last administered on 05/19/16 10:23; Admin Dose 3.125 MG; Start 05/10/16 at 21:00 Dextrose (D5W) 1,000 ml @ 50 mls/hr Q20H IV Last administered on 05/19/16 05: 50; Admin Dose 50 MLS/HR; Start 05/12/16 at 09:30 Benazepril HCl (Lotensin) 10 mg DAILY PO Last administered on 05/19/16 10:23; Admin Dose 10 MG; Start 05/18/16 at 09:00 Potassium Chloride (Micro-K) 24 meq DAILY PO Last administered on 05/19/16 10: 22; Admin Dose 24 MEQ; Start 05/18/16 at 09:00 WANG BELL 24, 2017 14:39
[2016-05-19] MEDS: TAMSULOSIN (SR) 0.4 MG CAP PO SCH (20:50)
[2016-05-20] VITALS (79 sets, daily range): BP systolic 40–130; BP diastolic 28–87; PULSE 58–95; RESP 16–33
[2016-05-20] MEDS: DEXTROSE 5% 1,000 ML IV SCH (03:28)
[2016-05-20] MEDS ORDERED: NORepinephrine 8MG/250 ML (PMX 250 ML ONE (05:30)
--- NOTE | 2016-05-20 05:58 | EN ---
Date/Time of Note Date/Time of Note DATE: 05/20/16 TIME: 05:48 Event Note Medicine Medicine Event Note RAPID RESPONSE TEAM: Rapid Response Team called at about 0448 to [facility] Room 5558. Patient was found to be pal, mouth breathing and had been placed on NRB at 15 LPM. He had been suctioned and his BP dropped. The first machine read 35/25, we could not get the second machine to read, but during attempts, patient was placed in a modified Trendelenberg position. His respirations became Agonal. He was satting at 94% and his HR was 60 BPM. Patient has a history of Pneumonia and CHF and an EF = 25% this admission, and he had already been intubated and extubated, spending time in the ICU. He is a Full Code. A bolus of NS was started. Patient's BP cam up to 61/35 with a HR = 60, still on 15 LPM via NRB. A Lia Cat was called, and Dr. Vasquez came up from the ED and successfully intubated patient. By 0509, patient had been intubated, underwent CPR with 1 round of Epi and he was taken to the ICU. His BP was still low despite the IVF and he was started on a Levophed Drip but maxed out quickly. Neosynepherine is on hand. His family was called about 0455 and notified that he was being moved to the ICU. SHEELA KLEIN DO May 20, 2016 05:58
[2016-05-20] MEDS ORDERED: PHENYLephrine 20MG IN 250 ML 250 ML IV SCH (06:00)
[2016-05-20] MEDS ORDERED: SOD CHLORIDE 0.9% 1,000 ML IV ONE (06:00)
[2016-05-20 06:08] LABS: Allen Test ACCEPTAB; Arterial Base Excess -6.2 mmol/L (-3.0-3); Arterial COHb 0.3 % (0.0-3.0); Arterial Fraction of Oxyhgb 98.6 % (93.0-99.0); Arterial HCO3 21.6 mmol/L (22.0-26.0); Arterial MetHb 0.5 % (0.0-1.5); Arterial Total Hemglobin 13.1 g/dl (12.0-18.0); MODE VENT - AC
[2016-05-20] MEDS: NORepinephrine 8MG/250 ML (PMX 250 ML IV SCH ×2 (06:16→11:30)
[2016-05-20] MEDS: PANTOPRAZOLE 40 MG INJ IV SCH (06:25)
--- NOTE | 2016-05-20 06:42 | QN ---
Documentation Comment Chief complaint: Acute respiratory distress History of present illness: The patient is a 55-year-old, presenting with acute respiratory distress, I was asked to evaluate patient. Upon arrival to the bedside, he was having agonal breathing, he was in immediately intubated. He then went to a systole. The code started at 5 AM and ended at 5:07 AM. He was treated with epinephrine 1 mg IV, Accu-Chek was 249. He had return of spontaneous circulation Cardiopulmonary Resuscitation by me: See code documentation for specific details. ACLS and BLS were performed with high quality chest compressions and minimal interruptions. Reversible causes were assessed and treated. Endotracheal Intubation by me: Pre assessment performed. See preceding note for details. Pre-oxygenation performed with 100% oxygen RSI: Performed w/o complication or hypoxic events. Medications as ordered. Blade: [place] scope ET Tube: 7.5 cm Depth: 23cm at the lip Intubation confirmed by colorimetric CO2, equal breath sounds, quiet over the stomach. Chest x-ray is pending\ Impression: #1 acute respiratory failure #2 s/p systole Disposition: I will not transfer the patient back to his physician for continued care. DEVORA ORTEGA MD May 20, 2016 06:42
[2016-05-20] MEDS ORDERED: ETOMIDATE 20 MG INJ ONE (07:00)
[2016-05-20] MEDS ORDERED: ROCURONIUM 50 MG INJ ONE (07:00)
[2016-05-20 08:39] LABS: ADD SCAN DIFF NO
[2016-05-20 08:52] LABS: ABNORMAL IP MESSAGE 1; BASOPHILS % 0.1 % (0.0-2.0); EOSINOPHILS % 0.1 % (0.0-7.0); HEMATOCRIT 33.7 % (42.0-52.0); HEMOGLOBIN 10.6 g/dl (14.0-18.0); LYMPHOCYTES # 0.9 10^3/ul (0.8-2.9); LYMPHOCYTES % 3.5 % (15.0-51.0); MEAN CORPUSCULAR HEMOGLOBIN 29.8 pg (29.0-33.0); MEAN CORPUSCULAR HGB CONC 31.5 g/dl (32.0-37.0); MEAN CORPUSCULAR VOLUME 94.7 fl (82.0-101.0); MONOCYTES % 3.7 % (0.0-11.0); NEUTROPHIL # 24.1 10^3/ul (1.6-7.5); NEUTROPHILS % 90.9 % (39.0-77.0); PLATELET COUNT 119 10^3/UL (140-415); RED BLOOD COUNT 3.56 10^6/ul (4.70-6.10); RED CELL DISTRIBUTION WIDTH 14.3 % (11.5-14.5); WHITE BLOOD COUNT 26.5 10^3/ul (4.8-10.8)
[2016-05-20 08:53] LABS: POTASSIUM 4.1 mmol/L (3.5-5.1)
[2016-05-20 08:55] LABS: CREATININE 1.08 mg/dl (0.61-1.24)
[2016-05-20 08:56] LABS: CALCIUM 7.4 mg/dl (8.4-10.2); INR 1.14; PROTIME 14.6 Sec (12.2-14.2); PT RATIO 1.1
[2016-05-20 08:57] LABS: PARTIAL THROMBOPLASTIN TIME 44.7 Sec (25.0-35.0)
[2016-05-20] MEDS: POLYETHYLENE GLYCOL 17 GM PACKET GTB SCH (09:00)
[2016-05-20] MEDS: BENAZEPRIL 10 MG TAB PO SCH (09:00)
[2016-05-20] MEDS: DOCUSATE SODIUM 10 MG/ML (10ML CUP) NGT SCH (09:00)
[2016-05-20] MEDS: POTASSIUM CHLORIDE (SR) 8 MEQ CAP PO SCH (09:00)
--- NOTE | 2016-05-20 09:01 | RADRPT ---
PROCEDURE: XR Chest. CLINICAL INDICATION: Post intubation. TECHNIQUE: Single frontal view of the chest was obtained COMPARISON: Chest x-ray 05/16/2016 01:13 p.m. FINDINGS: The soft tissues are normal. There are osteophytes in the thoracic spine. There is a dual chamber cardiac pacemaker over the upper right chest wall. The the heart is mildly enlarged but unchanged. The cardiomediastinal silhouette and hilar structures are normal. The pulmonary vasculature is uppe r limits of normal. There are vascular calcifications in the less aorta para there are interstitial infiltrates and atelectasis in the bases of the lungs which are stable. There are small pleural eff usions. IMPRESSION: 1. Satisfactory positioning of the endotracheal tube and nasogastric tube. 2. Mild cardiomegaly with bibasilar interstitial infiltrates and intermixed sub segmental atelectas is in the bases of the lungs. Bilateral small pleural effusions. 3. Dual chamber cardiac pacemaker. 4. No significant change as compared to 05/16/2016. RPTAT:AAJJ Physician Chema Date Time Electronically viewed and signed by Physician Chema on 05/20/2016 09:01 /
[2016-05-20] MEDS: ENOXAPARIN 60 MG/0.6 ML SYG SC SCH (10:39)
--- NOTE | 2016-05-20 10:41 | PN ---
Date/Time of Note Date/Time of Note DATE: 05/20/16 TIME: 10:37 Assessment/Plan VTE Prophylaxis VTE Prophylaxis Intervention: SCD's Lines/Catheters IV Catheter Type (from Nrs): PICC Line Central line still needed: Yes Urinary Cath still in place: Yes Reason Cath still needed: urinary retention Assessment/Plan Chief Complaint/Hosp Course 1. S/ p code, transfered Icu. CRITICAL CONDITION 2. Status post pneumonia. 3. Respiratory failure, INTUBATED ON ac MODE. 4. Dysphagia, NG tube in for feeding, npo NO FEED TODAY. 5. History of benign prostatic hypertrophy 6. IV hydration normal saline 50 ml/hour. Hypotension, on levophed support Problems: Assessment/Plan 1. Poor prognosis 2. 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 D/c lovenox due to low platelets and possible bleeding Subjective 24 Hr Interval Summary Subjective hx not possible: pt non-verbal Exam/Review of Systems Vital Signs Vitals Vital Signs Date Time Temp Pulse Resp B/P Pulse Ox O2 Delivery O2 Flow Rate FiO2 05/20/16 08:45 92 25 100/68 95 05/20/16 08:00 97.7 Mechanical Ventilator 05/20/16 05:20 50 05/20/16 00:40 5.0 Intake and Output 05/19/16 05/19/16 05/20/16 15:00 23:00 07:00 Intake Total 380 ml 1056.25 ml Output Total 850 ml Balance -470 ml 1056.25 ml Exam Constitutional: alert Psych: no complaints Head: normocephalic Eyes: nl conjunctiva ENMT: intubated Neck: supple Respiratory: diminished breath sounds Cardiovascular: irregular rhythm Gastrointestinal: other (NG tube), soft Genitourinary - Male: nl penis, other (muñoz in) Musculoskeletal: muscle weakness Results Result Diagram: 05/20/16 0815 05/20/16 0815 Results 24 hrs Laboratory Tests Test 05/20/16 05:06 05/20/16 05:36 05/20/16 08:15 Bedside Glucose 249 H Blood Gas Specimen Source Blood arterial Arterial Blood Date Drawn 05/20/2016 6:00:18 AM Arterial Blood pH (Temp corrected) 7.234 *L Arterial Blood pCO2 (Temp correct) 52.3 H Arterial Blood pO2 (Temp corrected) 366.7 H Arterial Blood HCO3 21.6 L Arterial Blood Base Excess -6.2 L Arterial Blood Oxygen Saturation 99.4 Zaid Test ACCEPTAB Arterial Blood Gas Puncture Site Right Radial Arterial Blood Carboxyhemoglobin 0.3 Arterial Blood Methemoglobin 0.5 Blood Gas A-a O2 Differential 294.0 H Oxyhemoglobin Percent 98.6 Total Hemoglobin 13.1 Blood Gas Temperature 37.0 Blood Gas Respiration Rate 16.0 Blood Gas Actual Respiration Rate 16 Blood Gas Modality VENT - AC FiO2 100.0 Blood Gas Tidal Volume 500.0 Blood Gas Low PEEP Setting 5.0 Blood Gas Inspiratory Pressure 26.0 Blood Gas Critical Value Read Back Aj CADET Blood Gas Notified Whom LW Blood Gas Notified Time 05/20/2016 6:07:33 AM White Blood Count 26.5 #H Red Blood Count 3.56 L Hemoglobin 10.6 L Hematocrit 33.7 L Mean Corpuscular Volume 94.7 Mean Corpuscular Hemoglobin 29.8 Mean Corpuscular Hemoglobin Concent 31.5 L Red Cell Distribution Width 14.3 Platelet Count 119 #L Mean Platelet Volume 13.0 H Neutrophils % 90.9 H Lymphocytes % 3.5 L Monocytes % 3.7 Eosinophils % 0.1 Basophils % 0.1 Nucleated Red Blood Cells % 0.0 Neutrophils # 24.1 H Lymphocytes # 0.9 Monocytes # 1.0 H Eosinophils # 0.0 Basophils # 0.0 Nucleated Red Blood Cells # 0.0 Prothrombin Time 14.6 H Prothrombin Time Ratio 1.1 INR International Normalized Ratio 1.14 Activated Partial Thromboplast Time 44.7 H Sodium Level 135 Potassium Level 4.1 Chloride Level 103 Carbon Dioxide Level 24 Anion Gap 12 Blood Urea Nitrogen 28 H Creatinine 1.08 Glucose Level 195 Calcium Level 7.4 L Medications Medications Current Medications Ondansetron HCl (Zofran Inj) 4 mg Q6H PRN IV NAUSEA AND/OR VOMITING; Start 05/01 at 20:30 Acetaminophen (Tylenol Tab) 650 mg Q6H PRN PO PAIN LEVEL 1-3 OR FEVER Last administered on 05/06/16 08:23; Admin Dose 650 MG; Start 05/01/16 at 20:30 Acetaminophen (Tylenol Supp) 650 mg Q6H PRN PA PAIN LEVEL 1-3 OR FEVER; Start 05/01/16 at 20:30 Docusate Sodium (Colace) 100 mg Q12H PRN PO CONSTIPATION Last administered on 13:14; Admin Dose 100 MG; Start 05/01/16 at 20:30 Magnesium Hydroxide (Milk Of Mag) 30 ml DAILY PRN PO CONSTIPATION Last administered on 05/03/16 11:52; Admin Dose 30 ML; Start 05/01/16 at 20:30 Bisacodyl (Dulcolax) 5 mg DAILY PRN PO CONSTIPATION; Start 05/01/16 at 20:30 Bisacodyl (Dulcolax Supp) 10 mg DAILY PRN PA CONSTIPATION; Start 05/01/16 at 20: 30 Sodium Biphosphate/ Sodium Phosphate (Fleet Enema) 133 ml DAILY PRN PA CONSTIPATION; Start 05/01/16 at 20:30 Pantoprazole (Protonix Iv) 40 mg DAILY@06 IV Last administered on 05/20/16 06: 25; Admin Dose 40 MG; Start 05/02/16 at 06:00 Tamsulosin HCl (Flomax) 0.4 mg HS PO Last administered on 05/19/16 20:50; Admin Dose 0.4 MG; Start 05/03/16 at 21:00 Aspirin (Aspirin) 325 mg DAILY PO Last administered on 05/09/16 08:08; Admin Dose 325 MG; Start 05/04/16 at 09:00; Status Future Hold Lorazepam (Ativan) 2 mg Q2 PRN IV AGITATION Last administered on 05/09/16 12: 35; Admin Dose 2 MG; Start 05/05/16 at 18:00 Morphine Sulfate (morphine) 2 mg Q2H PRN IV PAIN Last administered on 01:35; Admin Dose 2 MG; Start 05/05/16 at 18:00 IV Flush (NS 10 ml) 10 ml PRN PRN IV FLUSH LINE; Start 05/06/16 at 13:00 Enoxaparin Sodium (Lovenox) 60 mg DAILY SC Last administered on 05/19/16 10:34 ; Admin Dose 60 MG; Start 05/06/16 at 13:30 Docusate Sodium (Colace Liquid Cup) 100 mg TID NGT Last administered on 20:51; Admin Dose 100 MG; Start 05/08/16 at 21:00 Polyethylene Glycol (Miralax) 17 gm DAILY GTB Last administered on 05/19/16 10 :22; Admin Dose 17 GM; Start 05/09/16 at 09:00 Carvedilol 3.125 mg 3.125 mg BID NGT Last administered on 05/19/16 20:51; Admin Dose 3.125 MG; Start 05/10/16 at 21:00 Dextrose (D5W) 1,000 ml @ 50 mls/hr Q20H IV Last administered on 05/20/16 03: 28; Admin Dose 50 MLS/HR; Start 05/12/16 at 09:30 Benazepril HCl 10 mg 10 mg DAILY PO Last administered on 05/19/16 10:23; Admin Dose 10 MG; Start 05/18/16 at 09:00 Norepinephrine 250 ml @ 1.875 mls/ hr TITRATE IV Last administered on 06:16; Admin Dose 56.25 MLS/HR; Start 05/20/16 at 06:00; Stop 05/20/16 at 11:59 Phenylephrine HCl 250 ml @ 75 mls/hr TITRATE IV ; Start 05/20/16 at 06:00; Stop 05/20/16 at 11:59 Norepinephrine 16 mg/Dextrose 500 ml @ 1.87 mls/hr TITRATE IV ; Start 05/20/16 at 12:00 Phenylephrine HCl/ Dextrose (Nate-Syneph/D5W) 500 ml @ 75 mls/hr TITRATE IV ; Start 05/20/16 at 12:00 Potassium Chloride (Potassium Chloride Pwd/Soln) 20 meq DAILY NGT ; Start at 09:30 WANG BELL 25, 2017 10:41
[2016-05-20] MEDS: SOD CHLORIDE 0.9% 1,000 ML IV SCH (11:00)
[2016-05-20] MEDS ORDERED: PHENYLephrine 40 MG in DEXTROSE 5% 496 ML IV SCH (12:00)
--- NOTE | 2016-05-20 12:38 | CONS ---
Date/Time of Note Date/Time of Note DATE: 05/20/16 TIME: 12:35 Assessment/Plan Assessment/Plan Additional Assessment/Plan Additional Assessment/Plan IMPRESSION: 1. Aspiration pneumonia. 2. Leukocytosis. 3. Status post pacemaker insertion. 4. Benign prostatic hypertrophy. 5. Legally blind. 6. Status post extubation. 7. History of bronchial asthma. 8. 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 dysphagia ,tolerating NG tube feeding 11.respiratory failure on vent Plan continue present care correction of electrolytes PEG ,family agreed pt.responding to command,will proceed with PEG on Sunday,discussed with diamond broker and agreed. Consultation Date/Type/Reason Admit Date/Time May 01, 2016 at 20:18 Initial Consult Date 05/05/16 Type of Consultation: ID Referring Provider: HOLLI LINDER MD 24 HR Interval Summary Free Text/Dictation pr.went in to respiratory failure,requiring intubation Exam/Review of Systems Vital Signs Vitals Vital Signs Date Time Temp Pulse Resp B/P Pulse Ox O2 Delivery O2 Flow Rate FiO2 05/20/16 12:00 78 05/20/16 08:45 25 100/68 95 05/20/16 08:00 97.7 Mechanical Ventilator 05/20/16 05:20 50 05/20/16 00:40 5.0 Intake and Output 05/19/16 05/19/16 05/20/16 15:00 23:00 07:00 Intake Total 380 ml 1056.25 ml Output Total 850 ml Balance -470 ml 1056.25 ml Exam Constitutional: alert, oriented, well developed Psych: nl mood/affect, no complaints Head: atraumatic, normocephalic Eyes: EOMI, PERRL, nl conjunctiva, nl lids, nl sclera ENMT: nl external ears & nose, nl lips & teeth, nl nasal mucosa & septum Neck: non-tender, supple Respiratory: clear to auscultation, normal air movement Cardiovascular: nl pulses, regular rate and rhythm Gastrointestinal: nl liver, spleen, non-tender, soft Musculoskeletal: nl extremities to inspection, nl gait and stance Extremities: normal pulses 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, nl mental status, nl speech, nl strength Skin: nl turgor, No rash or lesions Lymph: nl lymph nodes Results Result Diagram: 05/20/16 0815 05/20/16 0815 Results 24 hrs Laboratory Tests Test 05/20/16 05:06 05/20/16 05:36 05/20/16 08:15 Bedside Glucose 249 H Blood Gas Specimen Source Blood arterial Arterial Blood Date Drawn 05/20/2016 6:00:18 AM Arterial Blood pH (Temp corrected) 7.234 *L Arterial Blood pCO2 (Temp correct) 52.3 H Arterial Blood pO2 (Temp corrected) 366.7 H Arterial Blood HCO3 21.6 L Arterial Blood Base Excess -6.2 L Arterial Blood Oxygen Saturation 99.4 Zaid Test ACCEPTAB Arterial Blood Gas Puncture Site Right Radial Arterial Blood Carboxyhemoglobin 0.3 Arterial Blood Methemoglobin 0.5 Blood Gas A-a O2 Differential 294.0 H Oxyhemoglobin Percent 98.6 Total Hemoglobin 13.1 Blood Gas Temperature 37.0 Blood Gas Respiration Rate 16.0 Blood Gas Actual Respiration Rate 16 Blood Gas Modality VENT - AC FiO2 100.0 Blood Gas Tidal Volume 500.0 Blood Gas Low PEEP Setting 5.0 Blood Gas Inspiratory Pressure 26.0 Blood Gas Critical Value Read Back Aj CADET Blood Gas Notified Whom LW Blood Gas Notified Time 05/20/2016 6:07:33 AM White Blood Count 26.5 #H Red Blood Count 3.56 L Hemoglobin 10.6 L Hematocrit 33.7 L Mean Corpuscular Volume 94.7 Mean Corpuscular Hemoglobin 29.8 Mean Corpuscular Hemoglobin Concent 31.5 L Red Cell Distribution Width 14.3 Platelet Count 119 #L Mean Platelet Volume 13.0 H Neutrophils % 90.9 H Lymphocytes % 3.5 L Monocytes % 3.7 Eosinophils % 0.1 Basophils % 0.1 Nucleated Red Blood Cells % 0.0 Neutrophils # 24.1 H Lymphocytes # 0.9 Monocytes # 1.0 H Eosinophils # 0.0 Basophils # 0.0 Nucleated Red Blood Cells # 0.0 Prothrombin Time 14.6 H Prothrombin Time Ratio 1.1 INR International Normalized Ratio 1.14 Activated Partial Thromboplast Time 44.7 H Sodium Level 135 Potassium Level 4.1 Chloride Level 103 Carbon Dioxide Level 24 Anion Gap 12 Blood Urea Nitrogen 28 H Creatinine 1.08 Glucose Level 195 Calcium Level 7.4 L Medications Medications Current Medications Ondansetron HCl (Zofran Inj) 4 mg Q6H PRN IV NAUSEA AND/OR VOMITING; Start 05/01 at 20:30 Acetaminophen (Tylenol Tab) 650 mg Q6H PRN PO PAIN LEVEL 1-3 OR FEVER Last administered on 05/06/16 08:23; Admin Dose 650 MG; Start 05/01/16 at 20:30 Acetaminophen (Tylenol Supp) 650 mg Q6H PRN [place] PAIN LEVEL 1-3 OR FEVER; Start 05/01/16 at 20:30 Docusate Sodium (Colace) 100 mg Q12H PRN PO CONSTIPATION Last administered on 13:14; Admin Dose 100 MG; Start 05/01/16 at 20:30 Magnesium Hydroxide (Milk Of Mag) 30 ml DAILY PRN PO CONSTIPATION Last administered on 05/03/16 11:52; Admin Dose 30 ML; Start 05/01/16 at 20:30 Bisacodyl (Dulcolax) 5 mg DAILY PRN PO CONSTIPATION; Start 05/01/16 at 20:30 Bisacodyl (Dulcolax Supp) 10 mg DAILY PRN [place] CONSTIPATION; Start 05/01/16 at 20: 30 Sodium Biphosphate/ Sodium Phosphate (Fleet Enema) 133 ml DAILY PRN GA CONSTIPATION; Start 05/01/16 at 20:30 Pantoprazole (Protonix Iv) 40 mg DAILY@06 IV Last administered on 05/20/16 06: 25; Admin Dose 40 MG; Start 05/02/16 at 06:00 Tamsulosin HCl (Flomax) 0.4 mg HS PO Last administered on 05/19/16 20:50; Admin Dose 0.4 MG; Start 05/03/16 at 21:00 Aspirin (Aspirin) 325 mg DAILY PO Last administered on 05/09/16 08:08; Admin Dose 325 MG; Start 05/04/16 at 09:00; Status Future Hold Lorazepam (Ativan) 2 mg Q2 PRN IV AGITATION Last administered on 05/09/16 12: 35; Admin Dose 2 MG; Start 05/05/16 at 18:00 Morphine Sulfate (morphine) 2 mg Q2H PRN IV PAIN Last administered on 01:35; Admin Dose 2 MG; Start 05/05/16 at 18:00 IV Flush (NS 10 ml) 10 ml PRN PRN IV FLUSH LINE; Start 05/06/16 at 13:00 Carvedilol (Coreg) 3.125 mg BID NGT Last administered on 05/19/16 20:51; Admin Dose 3.125 MG; Start 05/10/16 at 21:00 Benazepril HCl 10 mg 10 mg DAILY PO Last administered on 05/19/16 10:23; Admin Dose 10 MG; Start 05/18/16 at 09:00 Norepinephrine 16 mg/Dextrose 500 ml @ 1.87 mls/hr TITRATE IV ; Start 05/20/16 at 12:00 Phenylephrine HCl/ Dextrose (Nate-Syneph/D5W) 500 ml @ 75 mls/hr TITRATE IV ; Start 05/20/16 at 12:00 Potassium Chloride 20 meq 20 meq DAILY NGT ; Start 05/20/16 at 09:30 Sodium Chloride (NS) 1,000 ml @ 50 mls/hr Q20H IV ; Start 05/20/16 at 11:00 NEVAEH WOODSON MD May 20, 2016 12:38
--- NOTE | 2016-05-20 12:46 | CONS ---
Date/Time of Note Date/Time of Note DATE: 05/20/16 TIME: 12:41 Assessment/Plan Assessment/Plan Additional Assessment/Plan Chest x-ray was reviewed from today which is essentially clear. There is a pacemaker in the right chest wall. Endotracheal tube is at an adequate level. Ventilator settings; AC of 20, tidal volume 500, PEEP of 5, 50% FiO2. Next Assessment recommendations; 1. Patient initially admitted with bilateral pneumonia was successfully extubated and transferred to medical floor with the patient this morning had a cardiac arrest event. Possibly aspiration. 2. Hypotension, requiring high-dose Levophed. 3. Multiple other comorbidities including hypertension, COPD, arrhythmia, status post pacemaker. 4. Hypernatremia with interval resolution. 5. Persistent leukocytosis of indeterminate etiology. Continue current treatment. Wean down FiO2 to keep O2 saturation around 90-94% . The patient's family apparently has decided not to pursue a G-tube placement. Patient prognosis remains poor. Code status needs were discussed with the family. Consultation Date/Type/Reason Admit Date/Time May 01, 2016 at 20:18 Initial Consult Date 05/05/16 Type of Consultation: Pulmonary/critical care Reason for Consultation Patient condition is critical. The patient had a cardiac arrest event around 5 AM this morning CPR was done with revival of vital signs patient had to be intubated and transferred to ICU. By the time I saw him the patient is awake and somewhat responsive. Has remained hypotensive requiring Levophed drip. General exam; elderly male, awake. Orally intubated. Currently in no distress. Referring Provider: HOLLI LINDER MD Exam/Review of Systems Vital Signs Vitals Vital Signs Date Time Temp Pulse Resp B/P Pulse Ox O2 Delivery O2 Flow Rate FiO2 05/20/16 12:00 78 05/20/16 08:45 25 100/68 95 05/20/16 08:00 97.7 Mechanical Ventilator 05/20/16 05:20 50 05/20/16 00:40 5.0 Intake and Output 05/19/16 05/19/16 05/20/16 15:00 23:00 07:00 Intake Total 380 ml 1056.25 ml Output Total 850 ml Balance -470 ml 1056.25 ml Exam HEENT exam; supple neck, no JVD. No lymphadenopathy. Midline trachea. Orally intubated. Patient is edentulous. Has bilateral corneal opacities. No neck masses, or thyromegaly. Chest examination; diminished but clear breath sounds bilaterally. S1-S2 audible, no murmurs. Regular rhythm. Abdomen examination; no organomegaly. Nondistended. Bowel sounds audible. Extremity examination; no peripheral edema. 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 Results Result Diagram: 05/20/16 0815 05/20/16 0815 Results 24 hrs Laboratory Tests Test 05/20/16 05:06 05/20/16 05:36 05/20/16 08:15 Bedside Glucose 249 H Blood Gas Specimen Source Blood arterial Arterial Blood Date Drawn 05/20/2016 6:00:18 AM Arterial Blood pH (Temp corrected) 7.234 *L Arterial Blood pCO2 (Temp correct) 52.3 H Arterial Blood pO2 (Temp corrected) 366.7 H Arterial Blood HCO3 21.6 L Arterial Blood Base Excess -6.2 L Arterial Blood Oxygen Saturation 99.4 Zaid Test ACCEPTAB Arterial Blood Gas Puncture Site Right Radial Arterial Blood Carboxyhemoglobin 0.3 Arterial Blood Methemoglobin 0.5 Blood Gas A-a O2 Differential 294.0 H Oxyhemoglobin Percent 98.6 Total Hemoglobin 13.1 Blood Gas Temperature 37.0 Blood Gas Respiration Rate 16.0 Blood Gas Actual Respiration Rate 16 Blood Gas Modality VENT - AC FiO2 100.0 Blood Gas Tidal Volume 500.0 Blood Gas Low PEEP Setting 5.0 Blood Gas Inspiratory Pressure 26.0 Blood Gas Critical Value Read Back Aj CADET Blood Gas Notified Whom LW Blood Gas Notified Time 05/20/2016 6:07:33 AM White Blood Count 26.5 #H Red Blood Count 3.56 L Hemoglobin 10.6 L Hematocrit 33.7 L Mean Corpuscular Volume 94.7 Mean Corpuscular Hemoglobin 29.8 Mean Corpuscular Hemoglobin Concent 31.5 L Red Cell Distribution Width 14.3 Platelet Count 119 #L Mean Platelet Volume 13.0 H Neutrophils % 90.9 H Lymphocytes % 3.5 L Monocytes % 3.7 Eosinophils % 0.1 Basophils % 0.1 Nucleated Red Blood Cells % 0.0 Neutrophils # 24.1 H Lymphocytes # 0.9 Monocytes # 1.0 H Eosinophils # 0.0 Basophils # 0.0 Nucleated Red Blood Cells # 0.0 Prothrombin Time 14.6 H Prothrombin Time Ratio 1.1 INR International Normalized Ratio 1.14 Activated Partial Thromboplast Time 44.7 H Sodium Level 135 Potassium Level 4.1 Chloride Level 103 Carbon Dioxide Level 24 Anion Gap 12 Blood Urea Nitrogen 28 H Creatinine 1.08 Glucose Level 195 Calcium Level 7.4 L Medications Medications Current Medications Ondansetron HCl (Zofran Inj) 4 mg Q6H PRN IV NAUSEA AND/OR VOMITING; Start 05/01 at 20:30 Acetaminophen (Tylenol Tab) 650 mg Q6H PRN PO PAIN LEVEL 1-3 OR FEVER Last administered on 05/06/16 08:23; Admin Dose 650 MG; Start 05/01/16 at 20:30 Acetaminophen (Tylenol Supp) 650 mg Q6H PRN [place] PAIN LEVEL 1-3 OR FEVER; Start 05/01/16 at 20:30 Docusate Sodium (Colace) 100 mg Q12H PRN PO CONSTIPATION Last administered on 13:14; Admin Dose 100 MG; Start 05/01/16 at 20:30 Magnesium Hydroxide (Milk Of Mag) 30 ml DAILY PRN PO CONSTIPATION Last administered on 05/03/16 11:52; Admin Dose 30 ML; Start 05/01/16 at 20:30 Bisacodyl (Dulcolax) 5 mg DAILY PRN PO CONSTIPATION; Start 05/01/16 at 20:30 Bisacodyl (Dulcolax Supp) 10 mg DAILY PRN [place] CONSTIPATION; Start 05/01/16 at 20: 30 Sodium Biphosphate/ Sodium Phosphate (Fleet Enema) 133 ml DAILY PRN DE CONSTIPATION; Start 05/01/16 at 20:30 Pantoprazole (Protonix Iv) 40 mg DAILY@06 IV Last administered on 05/20/16 06: 25; Admin Dose 40 MG; Start 05/02/16 at 06:00 Tamsulosin HCl (Flomax) 0.4 mg HS PO Last administered on 05/19/16 20:50; Admin Dose 0.4 MG; Start 05/03/16 at 21:00 Aspirin (Aspirin) 325 mg DAILY PO Last administered on 05/09/16 08:08; Admin Dose 325 MG; Start 05/04/16 at 09:00; Status Future Hold Lorazepam (Ativan) 2 mg Q2 PRN IV AGITATION Last administered on 05/09/16 12: 35; Admin Dose 2 MG; Start 05/05/16 at 18:00 Morphine Sulfate (morphine) 2 mg Q2H PRN IV PAIN Last administered on 01:35; Admin Dose 2 MG; Start 05/05/16 at 18:00 IV Flush (NS 10 ml) 10 ml PRN PRN IV FLUSH LINE; Start 05/06/16 at 13:00 Carvedilol (Coreg) 3.125 mg BID NGT Last administered on 05/19/16 20:51; Admin Dose 3.125 MG; Start 05/10/16 at 21:00 Benazepril HCl 10 mg 10 mg DAILY PO Last administered on 05/19/16 10:23; Admin Dose 10 MG; Start 05/18/16 at 09:00 Norepinephrine 16 mg/Dextrose 500 ml @ 1.87 mls/hr TITRATE IV ; Start 05/20/16 at 12:00 Phenylephrine HCl/ Dextrose (Nate-Syneph/D5W) 500 ml @ 75 mls/hr TITRATE IV ; Start 05/20/16 at 12:00 Potassium Chloride 20 meq 20 meq DAILY NGT ; Start 05/20/16 at 09:30 Sodium Chloride (NS) 1,000 ml @ 50 mls/hr Q20H IV ; Start 05/20/16 at 11:00 GERALDINE CUNNINGHAM 25, 2017 12:46
[2016-05-20] MEDS: POTASSIUM CHLORIDE 20 MEQ POWDER FOR ORAL SOLN NGT SCH (12:47)
--- NOTE | 2016-05-20 14:09 | PN ---
DATE: 05/20/2016 CARDIOLOGY FOLLOWUP SUBJECTIVE: The patient apparently coded on the floor this morning and was intubated. The patient was transferred to ICU. He is on vasopressors and is unresponsive at this stage to all stimuli. He is not able to give any history. PHYSICAL EXAMINATION: VITAL SIGNS: Blood pressure is 100/68, heart rate of 78. He is afebrile. NECK: JVP is not raised. Carotid pulses with weak upstrokes without any bruits or murmurs. CHEST: Bilaterally symmetrical and nontender. HEART: PMI localized in the fourth intercostal space and 1 cm medial to midclavicular line. S1 and S2 regular. A I to II/ systolic murmur is heard at the apex. LUNGS: Clear to percussion and auscultation. ABDOMEN: Soft and nontender belly with bowel sounds present. No organomegaly appreciated. No abdo iggy palpable. No abdominal bruits are heard. EXTREMITIES: Good femoral and good pedal pulses. No femoral bruits. No pedal edema. No clubbing, no cyanosis. LABORATORY DATA: Reveals that his white count has gone up to 26,500, hemoglobin is low at 10.6, jimmy telet count is better than yesterday at 119,000. His chemistries reveal a slightly high BUN of 28. His telemetry is revealing ventricular-paced rhythm and atrial fibrillation at times in between. IMPRESSION: 1. Status post cardiorespiratory arrest, followed by intubation. 2. Congestive heart failure, systolic, acute on chronic, with ejection fraction of 25% to 30% by ec hocardiogram. Status post Lexiscan, revealed no ischemia. 3. Permanent pacemaker. 4. Atrial fibrillation at times. 5. Hypotension for which the patient is on vasopressors at this stage. RECOMMENDATIONS: 1. We will do serial enzymes to rule out the possibility of an acute myocardial infarction. 2. We will continue with the vasopressors that he is on. We will hold off the benazepril. Dictated By: GURJIT HAMILTON MD, RA/TRACY Conf#: [id number] DID#: [id number]
[2016-05-20] MEDS: PIPER-TAZO 3.375 GM IV (PMX) 100 ML IVPB SCH ×2 (15:23→21:40)
--- NOTE | 2016-05-20 17:08 | CONS ---
Date/Time of Note Date/Time of Note DATE: 05/20/16 TIME: 17:07 Assessment/Plan Assessment/Plan Chief Complaint/Hosp Course ID PROGRESS NOTE CURRENT ABX=> Zosyn #1 24H INTERVAL SUMMARY * 85 yo M transferred to ICU this am s/p cardiopulmonary arrest followed by ROSC. Patient is now orally intubated on the Ventilator. * CXR 05/20/16: IMPRESSION: 1. Satisfactory positioning of the endotracheal tube and nasogastric tube. 2. Mild cardiomegaly with bibasilar interstitial infiltrates and intermixed sub segmental atelectasis in the bases of the lungs. Bilateral small pleural effusions. 3. Dual chamber cardiac pacemaker. 4. No significant change as compared to 05/16/2016. PHYSICAL EXAMINATION: GENERAL:VSS, NAD HEENT: ETT->Secure to vent. NECK: Supple, trachea midline. CHEST: Rise symmetrical, without dyspnea on observation HEART: Pulse RRR ABDOMEN: soft EXTREMITIES: Warm ID ASSESSMENT 85 yo M admit with: 1. s/p 05/20/16 am cardiopulmonary arrest followed by ROSC. Patient is now orally intubated on the Ventilator. 2. Hypotensive shock -> cardiogenic (+/-) sepsis? * Persistent leukocytosis, status post steroids 3. Respiratory failure. 4. Dysphagia = Aspiration syndrome suspected, pending peg placement 5. Status post pneumonia-> now at risk for recurrent ASP PNA post oral intubation 6. Congestive heart failure, systolic, acute on chronic=> EFf 25%-30% by echocardiogram. * Status post Lexiscan, revealed no ischemia. 7. Paroxysmal Afib indwelling pacemaker (?ICD?) device (-)MRSA Nares INVASIVES: PIV, PICC, NGT, FC ABX ALLERGY: KNDA CURRENT ABX: Zosyn #1 ID RECOMMENDATIONS 1. Continue current ABX 2. Cardiology on the case w/cardiac enzymes on order 3. Repeat sputum in either tomorrow or Sunday am post intubation 4. Noted: remains on Full Code Status . Problems: Consultation Date/Type/Reason Admit Date/Time May 01, 2016 at 20:18 Initial Consult Date 05/05/16 Type of Consultation: ID Referring Provider: HOLLI LINDER MD Exam/Review of Systems Vital Signs Vitals Vital Signs Date Time Temp Pulse Resp B/P Pulse Ox O2 Delivery O2 Flow Rate FiO2 05/20/16 16:00 50 05/20/16 16:00 79 05/20/16 14:45 18 121/55 05/20/16 14:30 100 05/20/16 14:00 Mechanical Ventilator 05/20/16 12:00 97.7 05/20/16 00:40 5.0 Intake and Output 05/19/16 05/19/16 05/20/16 15:00 23:00 07:00 Intake Total 380 ml 1056.25 ml Output Total 850 ml Balance -470 ml 1056.25 ml Results Result Diagram: 05/20/16 0815 05/20/16 0815 Results 24 hrs Laboratory Tests Test 05/20/16 05:06 05/20/16 05:36 05/20/16 08:15 05/20/16 15:30 Bedside Glucose 249 H Blood Gas Specimen Source Blood arterial Arterial Blood Date Drawn 05/20/2016 6:00:18 AM Arterial Blood pH (Temp corrected) 7.234 *L Arterial Blood pCO2 (Temp correct) 52.3 H Arterial Blood pO2 (Temp corrected) 366.7 H Arterial Blood HCO3 21.6 L Arterial Blood Base Excess -6.2 L Arterial Blood Oxygen Saturation 99.4 Zaid Test ACCEPTAB Arterial Blood Gas Puncture Site Right Radial Arterial Blood Carboxyhemoglobin 0.3 Arterial Blood Methemoglobin 0.5 Blood Gas A-a O2 Differential 294.0 H Oxyhemoglobin Percent 98.6 Total Hemoglobin 13.1 Blood Gas Temperature 37.0 Blood Gas Respiration Rate 16.0 Blood Gas Actual Respiration Rate 16 Blood Gas Modality VENT - AC FiO2 100.0 Blood Gas Tidal Volume 500.0 Blood Gas Low PEEP Setting 5.0 Blood Gas Inspiratory Pressure 26.0 Blood Gas Critical Value Read Back Aj CADET Blood Gas Notified Whom LW Blood Gas Notified Time 05/20/2016 6:07:33 AM White Blood Count 26.5 #H Red Blood Count 3.56 L Hemoglobin 10.6 L Hematocrit 33.7 L Mean Corpuscular Volume 94.7 Mean Corpuscular Hemoglobin 29.8 Mean Corpuscular Hemoglobin Concent 31.5 L Red Cell Distribution Width 14.3 Platelet Count 119 #L Mean Platelet Volume 13.0 H Neutrophils % 90.9 H Lymphocytes % 3.5 L Monocytes % 3.7 Eosinophils % 0.1 Basophils % 0.1 Nucleated Red Blood Cells % 0.0 Neutrophils # 24.1 H Lymphocytes # 0.9 Monocytes # 1.0 H Eosinophils # 0.0 Basophils # 0.0 Nucleated Red Blood Cells # 0.0 Prothrombin Time 14.6 H Prothrombin Time Ratio 1.1 INR International Normalized Ratio 1.14 Activated Partial Thromboplast Time 44.7 H Sodium Level 135 Potassium Level 4.1 Chloride Level 103 Carbon Dioxide Level 24 Anion Gap 12 Blood Urea Nitrogen 28 H Creatinine 1.08 Glucose Level 195 Calcium Level 7.4 L Troponin I 0.084 Medications Medications Current Medications Ondansetron HCl (Zofran Inj) 4 mg Q6H PRN IV NAUSEA AND/OR VOMITING; Start 05/01 at 20:30 Acetaminophen (Tylenol Tab) 650 mg Q6H PRN PO PAIN LEVEL 1-3 OR FEVER Last administered on 05/06/16 08:23; Admin Dose 650 MG; Start 05/01/16 at 20:30 Acetaminophen (Tylenol Supp) 650 mg Q6H PRN [place] PAIN LEVEL 1-3 OR FEVER; Start 05/01/16 at 20:30 Docusate Sodium (Colace) 100 mg Q12H PRN PO CONSTIPATION Last administered on 13:14; Admin Dose 100 MG; Start 05/01/16 at 20:30 Magnesium Hydroxide (Milk Of Mag) 30 ml DAILY PRN PO CONSTIPATION Last administered on 05/03/16 11:52; Admin Dose 30 ML; Start 05/01/16 at 20:30 Bisacodyl (Dulcolax) 5 mg DAILY PRN PO CONSTIPATION; Start 05/01/16 at 20:30 Bisacodyl (Dulcolax Supp) 10 mg DAILY PRN [place] CONSTIPATION; Start 05/01/16 at 20: 30 Sodium Biphosphate/ Sodium Phosphate (Fleet Enema) 133 ml DAILY PRN ME CONSTIPATION; Start 05/01/16 at 20:30 Pantoprazole (Protonix Iv) 40 mg DAILY@06 IV Last administered on 05/20/16 06: 25; Admin Dose 40 MG; Start 05/02/16 at 06:00 Tamsulosin HCl (Flomax) 0.4 mg HS PO Last administered on 05/19/16 20:50; Admin Dose 0.4 MG; Start 05/03/16 at 21:00 Aspirin (Aspirin) 325 mg DAILY PO Last administered on 05/09/16 08:08; Admin Dose 325 MG; Start 05/04/16 at 09:00; Status Future Hold Lorazepam (Ativan) 2 mg Q2 PRN IV AGITATION Last administered on 05/09/16 12: 35; Admin Dose 2 MG; Start 05/05/16 at 18:00 Morphine Sulfate (morphine) 2 mg Q2H PRN IV PAIN Last administered on 01:35; Admin Dose 2 MG; Start 05/05/16 at 18:00 IV Flush 10 ml 10 ml PRN PRN IV FLUSH LINE; Start 05/06/16 at 13:00 Norepinephrine 16 mg/Dextrose 500 ml @ 1.87 mls/hr TITRATE IV ; Start 05/20/16 at 12:00 Phenylephrine HCl/ Dextrose (Nate-Syneph/D5W) 500 ml @ 75 mls/hr TITRATE IV ; Start 05/20/16 at 12:00 Potassium Chloride 20 meq 20 meq DAILY NGT Last administered on 05/20/16 12:47 ; Admin Dose 20 MEQ; Start 05/20/16 at 09:30 Sodium Chloride 1,000 ml @ 50 mls/hr Q20H IV Last administered on 05/20/16 11 :00; Admin Dose 50 MLS/HR; Start 05/20/16 at 11:00 Piperacillin Sod/ Tazobactam Sod (Zosyn 3.375gm/ 100 ml (Pmx)) 100 ml @ 200 mls /hr Q8 IVPB Last administered on 05/20/16 15:23; Admin Dose 200 MLS/HR; Start 05/20/16 at 14:00 LINDSAY LAGUNAS NP May 20, 2016 17:08
[2016-05-20] MEDS: TAMSULOSIN (SR) 0.4 MG CAP PO SCH (21:40)
[2016-05-21] VITALS (85 sets, daily range): BP systolic 76–145; BP diastolic 42–85; PULSE 40–89; RESP 18–27
[2016-05-21 04:39] LABS: ADD SCAN DIFF NO
[2016-05-21 04:56] LABS: ALBUMIN 1.9 g/dl (3.3-4.9)
[2016-05-21 04:57] LABS: BASOPHIL # 0.1 10^3/ul (0.0-0.1); BASOPHILS % 0.3 % (0.0-2.0); EOSINOPHILS # 0.1 10^3/ul (0.0-0.5); EOSINOPHILS % 0.4 % (0.0-7.0); HEMATOCRIT 30.1 % (42.0-52.0); HEMOGLOBIN 9.8 g/dl (14.0-18.0); LYMPHOCYTES # 1.4 10^3/ul (0.8-2.9); LYMPHOCYTES % 7.2 % (15.0-51.0); MEAN CORPUSCULAR HEMOGLOBIN 30.2 pg (29.0-33.0); MEAN CORPUSCULAR HGB CONC 32.6 g/dl (32.0-37.0); MEAN CORPUSCULAR VOLUME 92.6 fl (82.0-101.0); MONOCYTE # 0.9 10^3/ul (0.3-0.9); MONOCYTES % 4.5 % (0.0-11.0); NEUTROPHIL # 16.3 10^3/ul (1.6-7.5); NEUTROPHILS % 86.5 % (39.0-77.0); PLATELET COUNT 116 10^3/UL (140-415); POTASSIUM 4.2 mmol/L (3.5-5.1); RED BLOOD COUNT 3.25 10^6/ul (4.70-6.10); RED CELL DISTRIBUTION WIDTH 14.1 % (11.5-14.5); WHITE BLOOD COUNT 18.9 10^3/ul (4.8-10.8)
[2016-05-21 04:59] LABS: ALBUMIN/GLOBULIN RATIO 0.67; BILIRUBIN,INDIRECT 0.3 mg/dl (0-1.1); BILIRUBIN,TOTAL 0.3 mg/dl (0.2-1.3); CREATININE 1.03 mg/dl (0.61-1.24); TOTAL PROTEIN 4.7 g/dl (6.1-8.1)
[2016-05-21 05:00] LABS: CALCIUM 7.1 mg/dl (8.4-10.2)
[2016-05-21] MEDS: PIPER-TAZO 3.375 GM IV (PMX) 100 ML IVPB SCH ×3 (05:35→21:31)
[2016-05-21] MEDS: PANTOPRAZOLE 40 MG INJ IV SCH (05:35)
[2016-05-21] MEDS: SOD CHLORIDE 0.9% 1,000 ML IV SCH (05:35)
[2016-05-21] MEDS: morphine 2 MG INJ IV PRN (07:55)
[2016-05-21] MEDS ORDERED: FUROSEMIDE 20 MG INJ IV ONE (08:00)
[2016-05-21] MEDS: POTASSIUM CHLORIDE 20 MEQ POWDER FOR ORAL SOLN NGT SCH (09:00)
--- NOTE | 2016-05-21 09:58 | CONS ---
Date/Time of Note Date/Time of Note DATE: 05/21/16 TIME: 09:54 Assessment/Plan Assessment/Plan Additional Assessment/Plan Ventilator settings; AC of 20, tidal volume 500, PEEP of 5, 30% FiO2. Assessment recommendations; 1. Patient admitted for severe bilateral pneumonia was successfully extubated transferred to medical floor however the patient did have a cardiac arrest event requiring intubation and transfer to ICU. 2. Leukocytosis with slight interval improvement. Source is unclear. Patient chest x-ray are essentially unremarkable. 3. History of COPD. 4. History of cardiac arrhythmia. 5. History of hypertension. Continue current treatment. Will obtain a follow-up chest x-ray. Consultation Date/Type/Reason Admit Date/Time May 01, 2016 at 20:18 Initial Consult Date 05/05/16 Type of Consultation: Pulmonary/critical care Referring Provider: HOLLI LINDER MD 24 HR Interval Summary Free Text/Dictation Patient condition remains critical. Still requiring Levophed for blood pressure maintenance. General exam; elderly male, or intubated, currently in no distress. Awake. Exam/Review of Systems Vital Signs Vitals Vital Signs Date Time Temp Pulse Resp B/P Pulse Ox O2 Delivery O2 Flow Rate FiO2 05/21/16 08:15 71 05/21/16 06:30 23 105/52 95 05/21/16 06:00 Mechanical Ventilator 05/21/16 06:00 30 05/21/16 04:00 98.0 05/20/16 00:40 5.0 Intake and Output 05/20/16 05/20/16 05/21/16 15:00 23:00 07:00 Intake Total 487.725 ml 820.325 ml 612 ml Output Total 455 ml 435 ml 290 ml Balance 32.725 ml 385.325 ml 322 ml Exam HEENT examination; supple neck, no JVD. Edentulous. Orally intubated. Has bilateral corneal opacities. No neck masses. No thyromegaly. Chest examination; clear to auscultation bilaterally. S1-S2 audible, no murmurs. Regular rhythm. Abdomen examination; soft, no organomegaly. Bowel sounds audible. Extremity examination; no peripheral edema. [employer] OFF[employer] examination; patient is awake. Results Result Diagram: 05/21/16 0400 05/21/16 0400 Results 24 hrs Laboratory Tests Test 05/20/16 15:30 05/20/16 23:00 05/21/16 04:00 Troponin I 0.084 0.088 0.079 White Blood Count 18.9 #H Red Blood Count 3.25 L Hemoglobin 9.8 L Hematocrit 30.1 L Mean Corpuscular Volume 92.6 Mean Corpuscular Hemoglobin 30.2 Mean Corpuscular Hemoglobin Concent 32.6 Red Cell Distribution Width 14.1 Platelet Count 116 L Mean Platelet Volume 12.0 H Neutrophils % 86.5 H Lymphocytes % 7.2 L Monocytes % 4.5 Eosinophils % 0.4 Basophils % 0.3 Nucleated Red Blood Cells % 0.0 Neutrophils # 16.3 H Lymphocytes # 1.4 Monocytes # 0.9 Eosinophils # 0.1 Basophils # 0.1 Nucleated Red Blood Cells # 0.0 Sodium Level 136 Potassium Level 4.2 Chloride Level 108 Carbon Dioxide Level 23 Anion Gap 9 Blood Urea Nitrogen 29 H Creatinine 1.03 Glucose Level 149 # Calcium Level 7.1 L Total Bilirubin 0.3 Direct Bilirubin 0.00 Indirect Bilirubin 0.3 Aspartate Amino Transf (AST/SGOT) 38 Alanine Aminotransferase (ALT/SGPT) 41 Alkaline Phosphatase 67 Total Protein 4.7 L Albumin 1.9 L Globulin 2.80 Albumin/Globulin Ratio 0.67 Medications Medications Current Medications Ondansetron HCl (Zofran Inj) 4 mg Q6H PRN IV NAUSEA AND/OR VOMITING; Start 05/01 at 20:30 Acetaminophen (Tylenol Tab) 650 mg Q6H PRN PO PAIN LEVEL 1-3 OR FEVER Last administered on 05/06/16 08:23; Admin Dose 650 MG; Start 05/01/16 at 20:30 Acetaminophen (Tylenol Supp) 650 mg Q6H PRN [place] PAIN LEVEL 1-3 OR FEVER; Start 05/01/16 at 20:30 Docusate Sodium (Colace) 100 mg Q12H PRN PO CONSTIPATION Last administered on 13:14; Admin Dose 100 MG; Start 05/01/16 at 20:30 Magnesium Hydroxide (Milk Of Mag) 30 ml DAILY PRN PO CONSTIPATION Last administered on 05/03/16 11:52; Admin Dose 30 ML; Start 05/01/16 at 20:30 Bisacodyl (Dulcolax) 5 mg DAILY PRN PO CONSTIPATION; Start 05/01/16 at 20:30 Bisacodyl (Dulcolax Supp) 10 mg DAILY PRN [place] CONSTIPATION; Start 05/01/16 at 20: 30 Sodium Biphosphate/ Sodium Phosphate (Fleet Enema) 133 ml DAILY PRN AL CONSTIPATION; Start 05/01/16 at 20:30 Pantoprazole (Protonix Iv) 40 mg DAILY@06 IV Last administered on 05/21/16 05: 35; Admin Dose 40 MG; Start 05/02/16 at 06:00 Tamsulosin HCl (Flomax) 0.4 mg HS PO Last administered on 05/20/16 21:40; Admin Dose 0.4 MG; Start 05/03/16 at 21:00 Aspirin (Aspirin) 325 mg DAILY PO Last administered on 05/09/16 08:08; Admin Dose 325 MG; Start 05/04/16 at 09:00; Status Future Hold Lorazepam (Ativan) 2 mg Q2 PRN IV AGITATION Last administered on 05/09/16 12: 35; Admin Dose 2 MG; Start 05/05/16 at 18:00 Morphine Sulfate (morphine) 2 mg Q2H PRN IV PAIN Last administered on 07:55; Admin Dose 2 MG; Start 05/05/16 at 18:00 IV Flush 10 ml 10 ml PRN PRN IV FLUSH LINE; Start 05/06/16 at 13:00 Norepinephrine 16 mg/Dextrose 500 ml @ 1.87 mls/hr TITRATE IV Last administered on 05/20/16 18:25; Admin Dose 33.75 MLS/HR; Start 05/20/16 at 12: 00 Phenylephrine HCl/ Dextrose (Nate-Syneph/D5W) 500 ml @ 75 mls/hr TITRATE IV ; Start 05/20/16 at 12:00 Potassium Chloride 20 meq 20 meq DAILY NGT Last administered on 05/20/16 12:47 ; Admin Dose 20 MEQ; Start 05/20/16 at 09:30 Sodium Chloride 1,000 ml @ 50 mls/hr Q20H IV Last administered on 05/21/16 05 :35; Admin Dose 50 MLS/HR; Start 05/20/16 at 11:00 Piperacillin Sod/ Tazobactam Sod (Zosyn 3.375gm/ 100 ml (Pmx)) 100 ml @ 200 mls /hr Q8 IVPB Last administered on 05/21/16t 05:35; Admin Dose 200 MLS/HR; Start 05/20/16 at 14:00 GERALDINE CUNNINGHAM May 21, 2016 09:58
--- NOTE | 2016-05-21 11:31 | RADRPT ---
Vent Rate: 72 bpm RR Interval: 0 msec MS Interval: 352 msec QRS Duration: 118 msec QT Interval: 504 msec QTC Interval: 551 msec P-R-T [place]: 1 - -46 - 156 degrees Electronic ventricular pacemaker VVI Pacing Underlying Sinus rhythm with marked 1st degree block. No previous tracing available for comparison Electronically Signed By: Jaime Moreau [id number]
--- NOTE | 2016-05-21 11:35 | RADRPT ---
Vent Rate: 83 bpm RR Interval: 0 msec NE Interval: 0 msec QRS Duration: 148 msec QT Interval: 470 msec QTC Interval: 552 msec P-R-T [place]: 0 - -84 - 82 degrees Electronic ventricular pacemaker underlying sinus rhythm No previous tracing available for comparison Electronically Signed By: Jaime Moreau [id number]
--- NOTE | 2016-05-21 15:16 | PN ---
Date/Time of Note Date/Time of Note DATE: 05/21/16 TIME: 15:14 Assessment/Plan VTE Prophylaxis VTE Prophylaxis Intervention: other Lines/Catheters IV Catheter Type (from Nrs): PICC Line Central line still needed: Yes Urinary Cath still in place: Yes Reason Cath still needed: other (indicate) Assessment/Plan Chief Complaint/Hosp Course IMPRESSION: The patient has 1. ACUTE RES FAILURE 2. hypernatremia better 3. Hypertension. 4. anxiety 5. PACEMAKER HX 6 low ef 7 leucocytosis 8 RHINA 9 VDRF 10 SEPSIS plan cardio eval bmp peg Problems: Subjective 24 Hr Interval Summary Subjective hx not possible: other (ON VENT) Exam/Review of Systems Vital Signs Vitals Vital Signs Date Time Temp Pulse Resp B/P Pulse Ox O2 Delivery O2 Flow Rate FiO2 05/21/16 15:00 58 21 98/45 93 Mechanical Ventilator 05/21/16 12:15 97.5 05/21/16 06:00 30 05/20/16 00:40 5.0 Intake and Output 05/20/16 05/20/16 05/21/16 14:59 22:59 06:59 Intake Total 411.100 ml 827.950 ml 690 ml Output Total 230 ml 605 ml 345 ml Balance 181.100 ml 222.950 ml 345 ml Exam Respiratory: diminished breath sounds Cardiovascular: regular rate and rhythm Gastrointestinal: bowel sounds (+), soft Musculoskeletal: nl extremities to inspection Results Result Diagram: 05/21/16 0400 05/21/16 0400 Results 24 hrs Laboratory Tests Test 05/20/16 15:30 05/20/16 23:00 05/21/16 04:00 Troponin I 0.084 0.088 0.079 White Blood Count 18.9 #H Red Blood Count 3.25 L Hemoglobin 9.8 L Hematocrit 30.1 L Mean Corpuscular Volume 92.6 Mean Corpuscular Hemoglobin 30.2 Mean Corpuscular Hemoglobin Concent 32.6 Red Cell Distribution Width 14.1 Platelet Count 116 L Mean Platelet Volume 12.0 H Neutrophils % 86.5 H Lymphocytes % 7.2 L Monocytes % 4.5 Eosinophils % 0.4 Basophils % 0.3 Nucleated Red Blood Cells % 0.0 Neutrophils # 16.3 H Lymphocytes # 1.4 Monocytes # 0.9 Eosinophils # 0.1 Basophils # 0.1 Nucleated Red Blood Cells # 0.0 Sodium Level 136 Potassium Level 4.2 Chloride Level 108 Carbon Dioxide Level 23 Anion Gap 9 Blood Urea Nitrogen 29 H Creatinine 1.03 Glucose Level 149 # Calcium Level 7.1 L Total Bilirubin 0.3 Direct Bilirubin 0.00 Indirect Bilirubin 0.3 Aspartate Amino Transf (AST/SGOT) 38 Alanine Aminotransferase (ALT/SGPT) 41 Alkaline Phosphatase 67 Total Protein 4.7 L Albumin 1.9 L Globulin 2.80 Albumin/Globulin Ratio 0.67 Medications Medications Current Medications Ondansetron HCl (Zofran Inj) 4 mg Q6H PRN IV NAUSEA AND/OR VOMITING; Start 05/01 at 20:30 Acetaminophen (Tylenol Tab) 650 mg Q6H PRN PO PAIN LEVEL 1-3 OR FEVER Last administered on 05/06/16 08:23; Admin Dose 650 MG; Start 05/01/16 at 20:30 Acetaminophen (Tylenol Supp) 650 mg Q6H PRN [place] PAIN LEVEL 1-3 OR FEVER; Start 05/01/16 at 20:30 Docusate Sodium (Colace) 100 mg Q12H PRN PO CONSTIPATION Last administered on 13:14; Admin Dose 100 MG; Start 05/01/16 at 20:30 Magnesium Hydroxide (Milk Of Mag) 30 ml DAILY PRN PO CONSTIPATION Last administered on 05/03/16 11:52; Admin Dose 30 ML; Start 05/01/16 at 20:30 Bisacodyl (Dulcolax) 5 mg DAILY PRN PO CONSTIPATION; Start 05/01/16 at 20:30 Bisacodyl (Dulcolax Supp) 10 mg DAILY PRN ID CONSTIPATION; Start 05/01/16 at 20: 30 Sodium Biphosphate/ Sodium Phosphate (Fleet Enema) 133 ml DAILY PRN ID CONSTIPATION; Start 05/01/16 at 20:30 Pantoprazole (Protonix Iv) 40 mg DAILY@06 IV Last administered on 05/21/16 05: 35; Admin Dose 40 MG; Start 05/02/16 at 06:00 Tamsulosin HCl (Flomax) 0.4 mg HS PO Last administered on 05/20/16 21:40; Admin Dose 0.4 MG; Start 05/03/16 at 21:00 Aspirin (Aspirin) 325 mg DAILY PO Last administered on 05/09/16 08:08; Admin Dose 325 MG; Start 05/04/16 at 09:00; Status Future Hold Lorazepam (Ativan) 2 mg Q2 PRN IV AGITATION Last administered on 05/09/16 12: 35; Admin Dose 2 MG; Start 05/05/16 at 18:00 Morphine Sulfate (morphine) 2 mg Q2H PRN IV PAIN Last administered on 07:55; Admin Dose 2 MG; Start 05/05/16 at 18:00 IV Flush 10 ml 10 ml PRN PRN IV FLUSH LINE; Start 05/06/16 at 13:00 Norepinephrine 16 mg/Dextrose 500 ml @ 1.87 mls/hr TITRATE IV Last administered on 05/20/16 18:25; Admin Dose 33.75 MLS/HR; Start 05/20/16 at 12: 00 Phenylephrine HCl/ Dextrose (Nate-Syneph/D5W) 500 ml @ 75 mls/hr TITRATE IV ; Start 05/20/16 at 12:00 Potassium Chloride 20 meq 20 meq DAILY NGT Last administered on 05/21/16 09:00 ; Admin Dose 20 MEQ; Start 05/20/16 at 09:30 Sodium Chloride 1,000 ml @ 50 mls/hr Q20H IV Last administered on 05/21/16 05 :35; Admin Dose 50 MLS/HR; Start 05/20/16 at 11:00 Piperacillin Sod/ Tazobactam Sod (Zosyn 3.375gm/ 100 ml (Pmx)) 100 ml @ 200 mls /hr Q8 IVPB Last administered on 05/21/16 13:50; Admin Dose 200 MLS/HR; Start 05/20/16 at 14:00 HOLLI LINDER MD May 21, 2016 15:16
--- NOTE | 2016-05-21 16:23 | CONS ---
Date/Time of Note Date/Time of Note DATE: 05/21/16 TIME: 16:19 Assessment/Plan Assessment/Plan Chief Complaint/Hosp Course ID PROGRESS NOTE CURRENT ABX=> Zosyn #2 Result Diagram: 05/21/16 0400 05/21/16 0400 Results 24 hrs 24H INTERVAL SUMMARY * Stable post CPA 05/20/16 am => 85 yo M s/p cardiopulmonary arrest 05/20/16 followed by ROSC. Patient is now orally intubated on the Ventilator. * WBC slightly down -- started on Zosyn -- BCx, Urine, C.Diff still pending, UA not even available from order last night? PHYSICAL EXAMINATION: GENERAL:VSS, NAD HEENT: ETT->Secure to vent. NECK: Supple, trachea midline. CHEST: Rise symmetrical, without dyspnea on observation HEART: Pulse RRR ABDOMEN: soft EXTREMITIES: Warm ID ASSESSMENT 85 yo M admit with: 1. s/p 05/20/16 am cardiopulmonary arrest followed by ROSC. Patient is now orally intubated on the Ventilator. 2. Hypotensive shock -> cardiogenic (+/-) sepsis? * Persistent leukocytosis, status post steroids 3. Respiratory failure. 4. Dysphagia = Aspiration syndrome suspected, pending peg placement 5. Status post pneumonia-> now at risk for recurrent ASP PNA post oral intubation 6. Congestive heart failure, systolic, acute on chronic=> EFf 25%-30% by echocardiogram. * Status post Lexiscan, revealed no ischemia. 7. Paroxysmal Afib indwelling pacemaker (?ICD?) device (-)MRSA Nares INVASIVES: PIV, PICC, NGT, FC ABX ALLERGY: KNDA CURRENT ABX: Zosyn #2 ID RECOMMENDATIONS 1. Continue current ABX 2. Cardiology on the case w/cardiac enzymes on order 3. Repeat micro cultures sent and still pending: Blood, Urine, Respiratory, Stool for C.Diff (not collected yet) 4. Noted: remains on Full Code Status . Problems: Consultation Date/Type/Reason Admit Date/Time May 01, 2016 at 20:18 Initial Consult Date 05/05/16 Type of Consultation: ID Referring Provider: HOLLI LINDER MD Exam/Review of Systems Vital Signs Vitals Vital Signs Date Time Temp Pulse Resp B/P Pulse Ox O2 Delivery O2 Flow Rate FiO2 05/21/16 16:18 51 05/21/16 15:00 21 98/45 93 Mechanical Ventilator 05/21/16 12:15 97.5 05/21/16 06:00 30 05/20/16 00:40 5.0 Intake and Output 05/20/16 05/20/16 05/21/16 14:59 22:59 06:59 Intake Total 411.100 ml 827.950 ml 690 ml Output Total 230 ml 605 ml 345 ml Balance 181.100 ml 222.950 ml 345 ml Results Result Diagram: 05/21/16 0400 05/21/16 0400 Results 24 hrs Laboratory Tests Test 05/20/16 23:00 05/21/16 04:00 Troponin I 0.088 0.079 White Blood Count 18.9 #H Red Blood Count 3.25 L Hemoglobin 9.8 L Hematocrit 30.1 L Mean Corpuscular Volume 92.6 Mean Corpuscular Hemoglobin 30.2 Mean Corpuscular Hemoglobin Concent 32.6 Red Cell Distribution Width 14.1 Platelet Count 116 L Mean Platelet Volume 12.0 H Neutrophils % 86.5 H Lymphocytes % 7.2 L Monocytes % 4.5 Eosinophils % 0.4 Basophils % 0.3 Nucleated Red Blood Cells % 0.0 Neutrophils # 16.3 H Lymphocytes # 1.4 Monocytes # 0.9 Eosinophils # 0.1 Basophils # 0.1 Nucleated Red Blood Cells # 0.0 Sodium Level 136 Potassium Level 4.2 Chloride Level 108 Carbon Dioxide Level 23 Anion Gap 9 Blood Urea Nitrogen 29 H Creatinine 1.03 Glucose Level 149 # Calcium Level 7.1 L Total Bilirubin 0.3 Direct Bilirubin 0.00 Indirect Bilirubin 0.3 Aspartate Amino Transf (AST/SGOT) 38 Alanine Aminotransferase (ALT/SGPT) 41 Alkaline Phosphatase 67 Total Protein 4.7 L Albumin 1.9 L Globulin 2.80 Albumin/Globulin Ratio 0.67 Medications Medications Current Medications Ondansetron HCl (Zofran Inj) 4 mg Q6H PRN IV NAUSEA AND/OR VOMITING; Start 05/01 at 20:30 Acetaminophen (Tylenol Tab) 650 mg Q6H PRN PO PAIN LEVEL 1-3 OR FEVER Last administered on 05/06/16t 08:23; Admin Dose 650 MG; Start 05/01/16 at 20:30 Acetaminophen (Tylenol Supp) 650 mg Q6H PRN [place] PAIN LEVEL 1-3 OR FEVER; Start 05/01/16 at 20:30 Docusate Sodium (Colace) 100 mg Q12H PRN PO CONSTIPATION Last administered on 13:14; Admin Dose 100 MG; Start 05/01/16 at 20:30 Magnesium Hydroxide (Milk Of Mag) 30 ml DAILY PRN PO CONSTIPATION Last administered on 05/03/16 11:52; Admin Dose 30 ML; Start 05/01/16 at 20:30 Bisacodyl (Dulcolax) 5 mg DAILY PRN PO CONSTIPATION; Start 05/01/16 at 20:30 Bisacodyl (Dulcolax Supp) 10 mg DAILY PRN [place] CONSTIPATION; Start 05/01/16 at 20: 30 Sodium Biphosphate/ Sodium Phosphate (Fleet Enema) 133 ml DAILY PRN [place] CONSTIPATION; Start 05/01/16 at 20:30 Pantoprazole (Protonix Iv) 40 mg DAILY@06 IV Last administered on 05/21/16 05: 35; Admin Dose 40 MG; Start 05/02/16 at 06:00 Tamsulosin HCl (Flomax) 0.4 mg HS PO Last administered on 05/20/16 21:40; Admin Dose 0.4 MG; Start 05/03/16 at 21:00 Aspirin (Aspirin) 325 mg DAILY PO Last administered on 05/09/16 08:08; Admin Dose 325 MG; Start 05/04/16 at 09:00; Status Future Hold Lorazepam (Ativan) 2 mg Q2 PRN IV AGITATION Last administered on 05/09/16 12: 35; Admin Dose 2 MG; Start 05/05/16 at 18:00 Morphine Sulfate (morphine) 2 mg Q2H PRN IV PAIN Last administered on 07:55; Admin Dose 2 MG; Start 05/05/16 at 18:00 IV Flush 10 ml 10 ml PRN PRN IV FLUSH LINE; Start 05/06/16 at 13:00 Norepinephrine 16 mg/Dextrose 500 ml @ 1.87 mls/hr TITRATE IV Last administered on 05/20/16 18:25; Admin Dose 33.75 MLS/HR; Start 05/20/16 at 12: 00 Phenylephrine HCl/ Dextrose (Nate-Syneph/D5W) 500 ml @ 75 mls/hr TITRATE IV ; Start 05/20/16 at 12:00 Potassium Chloride 20 meq 20 meq DAILY NGT Last administered on 05/21/16 09:00 ; Admin Dose 20 MEQ; Start 05/20/16 at 09:30 Sodium Chloride 1,000 ml @ 50 mls/hr Q20H IV Last administered on 05/21/16 05 :35; Admin Dose 50 MLS/HR; Start 05/20/16 at 11:00 Piperacillin Sod/ Tazobactam Sod (Zosyn 3.375gm/ 100 ml (Pmx)) 100 ml @ 200 mls /hr Q8 IVPB Last administered on 05/21/16 13:50; Admin Dose 200 MLS/HR; Start 05/20/16 at 14:00 LINDSAY LAGUNAS NP May 21, 2016 16:23
--- NOTE | 2016-05-21 16:25 | PN ---
DATE: 05/21/2016 CARDIOLOGY FOLLOWUP SUBJECTIVE: On questioning, the patient is noncommunicating and only responds to painful stimuli. OBJECTIVE: GENERAL: The patient is intubated. VITAL SIGNS: His last vital signs showed blood pressure of 145/67, temperature of 98.2 degrees Fahr enheit. NECK: JVP is not raised. Carotid pulses with normal upstrokes. CHEST: Bilaterally symmetrical. HEART: S1, S2 are regular and a I/ systolic murmur is heard at the apex. LUNGS: Clear anteriorly to auscultation. ABDOMEN: Soft, nontender belly. EXTREMITIES: No edema. Good femoral pulses. LABORATORY DATA: Telemetry is revealing ventricular paced rhythm and at times there is AV pacing as well. White count is down to 18.9 today. Hemoglobin is slightly down at 9.8, platelet count is sl ightly lower at 116,000 and the BUN is slightly elevated at 29. IMAGING: His chest x-ray done yesterday showed mild cardiomegaly with bibasilar interstitial infilt rates and subsequent atelectasis and bilateral small pleural effusions, with a dual-chamber pace adelso er in place. IMPRESSION: 1. Respiratory insufficiency. 2. History of permanent pacemaker. 3. Congestive heart failure systolic acute on chronic, which is at present. Ejection fractio n of 25% to 20% by echo. Status post Lexiscan was negative for ischemia. 4. Permanent pacemaker. 5. Anemia. 6. Hypotension in the past, which is better now. RECOMMENDATIONS: Continue same treatment from cardiac standpoint. Dictated By: GURJIT HAMILTON MD, RA/TRACY Conf#: [id number] DID#: [id number]
--- NOTE | 2016-05-21 19:01 | CONS ---
Date/Time of Note Date/Time of Note DATE: 05/21/16 TIME: 19:00 Assessment/Plan Assessment/Plan Additional Assessment/Plan Additional Assessment/Plan IMPRESSION: 1. Aspiration pneumonia. 2. Leukocytosis. 3. Status post pacemaker insertion. 4. Benign prostatic hypertrophy. 5. Legally blind. 6. Status post extubation. 7. History of bronchial asthma. 8. 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 dysphagia ,tolerating NG tube feeding 11.respiratory failure on vent Plan continue present care correction of electrolytes PEG ,family agreed pt.responding to command,will proceed with PEG on Sunday,discussed with atomic physics professor and agreed. Consultation Date/Type/Reason Admit Date/Time May 01, 2016 at 20:18 Initial Consult Date 05/05/16 Type of Consultation: ID Referring Provider: HOLLI LINDER MD 24 HR Interval Summary Subjective hx not possible: pt non-verbal, pt critical Exam/Review of Systems Vital Signs Vitals Vital Signs Date Time Temp Pulse Resp B/P Pulse Ox O2 Delivery O2 Flow Rate FiO2 05/21/16 18:15 72 21 117/55 97 05/21/16 18:00 Mechanical Ventilator 05/21/16 16:00 99.5 05/21/16 06:00 30 05/20/16 00:40 5.0 Intake and Output 05/20/16 05/20/16 05/21/16 15:00 23:00 07:00 Intake Total 487.725 ml 820.325 ml 612 ml Output Total 455 ml 435 ml 320 ml Balance 32.725 ml 385.325 ml 292 ml Exam Constitutional: alert, oriented, well developed Psych: nl mood/affect, no complaints Head: atraumatic, normocephalic Eyes: EOMI, PERRL, nl conjunctiva, nl lids, nl sclera ENMT: nl external ears & nose, nl lips & teeth, nl nasal mucosa & septum Neck: non-tender, supple Respiratory: clear to auscultation, normal air movement Cardiovascular: nl pulses, regular rate and rhythm Gastrointestinal: nl liver, spleen, non-tender, soft Musculoskeletal: nl extremities to inspection, nl gait and stance Extremities: normal pulses Neurological: SILVER LAP MACHINE TENDER II-XII intact, nl mental status, nl speech, nl strength Skin: nl turgor, No rash or lesions Lymph: nl lymph nodes Results Result Diagram: 05/21/16 0400 05/21/16 0400 Results 24 hrs Laboratory Tests Test 05/20/16 23:00 05/21/16 04:00 Troponin I 0.088 0.079 White Blood Count 18.9 #H Red Blood Count 3.25 L Hemoglobin 9.8 L Hematocrit 30.1 L Mean Corpuscular Volume 92.6 Mean Corpuscular Hemoglobin 30.2 Mean Corpuscular Hemoglobin Concent 32.6 Red Cell Distribution Width 14.1 Platelet Count 116 L Mean Platelet Volume 12.0 H Neutrophils % 86.5 H Lymphocytes % 7.2 L Monocytes % 4.5 Eosinophils % 0.4 Basophils % 0.3 Nucleated Red Blood Cells % 0.0 Neutrophils # 16.3 H Lymphocytes # 1.4 Monocytes # 0.9 Eosinophils # 0.1 Basophils # 0.1 Nucleated Red Blood Cells # 0.0 Sodium Level 136 Potassium Level 4.2 Chloride Level 108 Carbon Dioxide Level 23 Anion Gap 9 Blood Urea Nitrogen 29 H Creatinine 1.03 Glucose Level 149 # Calcium Level 7.1 L Total Bilirubin 0.3 Direct Bilirubin 0.00 Indirect Bilirubin 0.3 Aspartate Amino Transf (AST/SGOT) 38 Alanine Aminotransferase (ALT/SGPT) 41 Alkaline Phosphatase 67 Total Protein 4.7 L Albumin 1.9 L Globulin 2.80 Albumin/Globulin Ratio 0.67 Medications Medications Current Medications Ondansetron HCl (Zofran Inj) 4 mg Q6H PRN IV NAUSEA AND/OR VOMITING; Start 05/01 at 20:30 Acetaminophen (Tylenol Tab) 650 mg Q6H PRN PO PAIN LEVEL 1-3 OR FEVER Last administered on 05/06/16 08:23; Admin Dose 650 MG; Start 05/01/16 at 20:30 Acetaminophen (Tylenol Supp) 650 mg Q6H PRN [place] PAIN LEVEL 1-3 OR FEVER; Start 05/01/16 at 20:30 Docusate Sodium (Colace) 100 mg Q12H PRN PO CONSTIPATION Last administered on 13:14; Admin Dose 100 MG; Start 05/01/16 at 20:30 Magnesium Hydroxide (Milk Of Mag) 30 ml DAILY PRN PO CONSTIPATION Last administered on 05/03/16 11:52; Admin Dose 30 ML; Start 05/01/16 at 20:30 Bisacodyl (Dulcolax) 5 mg DAILY PRN PO CONSTIPATION; Start 05/01/16 at 20:30 Bisacodyl (Dulcolax Supp) 10 mg DAILY PRN [place] CONSTIPATION; Start 05/01/16 at 20: 30 Sodium Biphosphate/ Sodium Phosphate (Fleet Enema) 133 ml DAILY PRN [place] CONSTIPATION; Start 05/01/16 at 20:30 Pantoprazole (Protonix Iv) 40 mg DAILY@06 IV Last administered on 05/21/16 05: 35; Admin Dose 40 MG; Start 05/02/16 at 06:00 Tamsulosin HCl (Flomax) 0.4 mg HS PO Last administered on 05/20/16 21:40; Admin Dose 0.4 MG; Start 05/03/16 at 21:00 Aspirin (Aspirin) 325 mg DAILY PO Last administered on 05/09/16 08:08; Admin Dose 325 MG; Start 05/04/16 at 09:00; Status Future Hold Lorazepam (Ativan) 2 mg Q2 PRN IV AGITATION Last administered on 05/09/16 12: 35; Admin Dose 2 MG; Start 05/05/16 at 18:00 Morphine Sulfate (morphine) 2 mg Q2H PRN IV PAIN Last administered on 07:55; Admin Dose 2 MG; Start 05/05/16 at 18:00 IV Flush 10 ml 10 ml PRN PRN IV FLUSH LINE; Start 05/06/16 at 13:00 Norepinephrine 16 mg/Dextrose 500 ml @ 1.87 mls/hr TITRATE IV Last administered on 05/20/16 18:25; Admin Dose 33.75 MLS/HR; Start 05/20/16 at 12: 00 Phenylephrine HCl/ Dextrose (Nate-Syneph/D5W) 500 ml @ 75 mls/hr TITRATE IV ; Start 05/20/16 at 12:00 Potassium Chloride 20 meq 20 meq DAILY NGT Last administered on 05/21/16 09:00 ; Admin Dose 20 MEQ; Start 05/20/16 at 09:30 Sodium Chloride 1,000 ml @ 50 mls/hr Q20H IV Last administered on 05/21/16 05 :35; Admin Dose 50 MLS/HR; Start 05/20/16 at 11:00 Piperacillin Sod/ Tazobactam Sod (Zosyn 3.375gm/ 100 ml (Pmx)) 100 ml @ 200 mls /hr Q8 IVPB Last administered on 05/21/16t 13:50; Admin Dose 200 MLS/HR; Start 05/20/16 at 14:00 NEVAEH WOODSON MD May 21, 2016 19:01
[2016-05-21] MEDS: TAMSULOSIN (SR) 0.4 MG CAP PO SCH (21:31)
[2016-05-22] VITALS (90 sets, daily range): BP systolic 84–144; BP diastolic 29–85; PULSE 51–90; RESP 19–27
[2016-05-22] MEDS: SOD CHLORIDE 0.9% 1,000 ML IV SCH (03:40)
[2016-05-22 05:17] LABS: ADD SCAN DIFF NO
[2016-05-22 05:26] LABS: BASOPHILS % 0.2 % (0.0-2.0); EOSINOPHILS # 0.1 10^3/ul (0.0-0.5); HEMATOCRIT 27.9 % (42.0-52.0); HEMOGLOBIN 8.8 g/dl (14.0-18.0); LYMPHOCYTES # 1.1 10^3/ul (0.8-2.9); MEAN CORPUSCULAR HEMOGLOBIN 29.5 pg (29.0-33.0); MEAN CORPUSCULAR HGB CONC 31.5 g/dl (32.0-37.0); MEAN CORPUSCULAR VOLUME 93.6 fl (82.0-101.0); MEAN PLATELET VOLUME 11.9 fl (7.4-10.4); MONOCYTE # 0.6 10^3/ul (0.3-0.9); MONOCYTES % 4.1 % (0.0-11.0); NEUTROPHIL # 11.7 10^3/ul (1.6-7.5); NEUTROPHILS % 86.1 % (39.0-77.0); PLATELET COUNT 144 10^3/UL (140-415); RED BLOOD COUNT 2.98 10^6/ul (4.70-6.10); RED CELL DISTRIBUTION WIDTH 14.6 % (11.5-14.5); WHITE BLOOD COUNT 13.6 10^3/ul (4.8-10.8)
[2016-05-22] MEDS: PIPER-TAZO 3.375 GM IV (PMX) 100 ML IVPB SCH ×3 (05:26→20:58)
[2016-05-22] MEDS: PANTOPRAZOLE 40 MG INJ IV SCH (05:26)
[2016-05-22 05:41] LABS: POTASSIUM 3.8 mmol/L (3.5-5.1)
[2016-05-22 05:43] LABS: BILIRUBIN,INDIRECT 0.3 mg/dl (0-1.1); BILIRUBIN,TOTAL 0.3 mg/dl (0.2-1.3); CREATININE 1.13 mg/dl (0.61-1.24)
[2016-05-22 05:44] LABS: ALBUMIN/GLOBULIN RATIO 0.66; CALCIUM 7.3 mg/dl (8.4-10.2)
--- NOTE | 2016-05-22 08:37 | RADRPT ---
PROCEDURE: XR Chest 1 View. CLINICAL INDICATION: Shortness of breath, pneumonia TECHNIQUE: AP view of the chest was obtained. COMPARISON: May 20, 2016 FINDINGS: The heart size is within normal limits. Calcified atherosclerosis is noted in the aorta. Endotrache al and nasogastric tubes are stable and appear in grossly appropriate location. Right-sided dual [place] pacemaker has its leads over the heart and is stable. Diffuse mild interstitial prominence in both lungs is unchanged. Patchy lower lobe infiltrates and small pleural effusions are unchanged. The osseous structures are stable. IMPRESSION: Calcified atherosclerosis in the aorta. Stable bilateral lower lobe infiltrates and small pleural effusions. Stable mild interstitial prominence in both lungs. RPTAT: AA .Fernando Santiago MD, Date Time Electronically viewed and signed by .Fernando Santiago MD, MD on 05/22/2016 08:37 .P/
[2016-05-22] MEDS: POTASSIUM CHLORIDE 20 MEQ POWDER FOR ORAL SOLN NGT SCH (09:00)
--- NOTE | 2016-05-22 11:00 | CONS ---
Date/Time of Note Date/Time of Note DATE: 05/22/16 TIME: 10:57 Consult Date/Type/Reason Admit Date/Time May 01, 2016 at 20:18 Initial Consult Date 05/05/16 Type of Consultation: intensive care/pulmonary Ordering Provider: HOLLI LINDER MD Subjective Patient remains somnolent on mechanical ventilation Currently still requiring vasopressor support Neurologically unchanged Objective Vital Signs Date Time Temp Pulse Resp B/P Pulse Ox O2 Delivery O2 Flow Rate FiO2 05/22/16 09:38 62 20 100 30 05/22/16 08:45 127/54 05/22/16 08:00 99.2 Mechanical Ventilator 05/20/16 00:40 5.0 Intake and Output 05/21/16 05/21/16 05/22/16 15:00 23:00 07:00 Intake Total 535.25 ml 417.50 ml 545.6 ml Output Total 380 ml 340 ml 285 ml Balance 155.25 ml 77.50 ml 260.6 ml Exam PHYSICAL EXAMINATION GENERAL: Elderly gentleman, intubated on mechanical ventilation, not opening eyes or following commands VITAL SIGNS: see below. HEENT: Pupils equal, round, and reactive to light. CARDIAC: S1, S2, 2 systolic ejection murmur CHEST: Diminished air entry bilaterally. ABDOMEN: Mildly distended. Bowel sounds present EXTREMITIES: No cyanosis, clubbing edema +1 NEUROLOGIC: Unable to assess Results/Medications Result Diagram: 05/22/16 0400 05/22/16 0400 Results 24 hrs Laboratory Tests Test 05/22/16 04:00 White Blood Count 13.6 #H Red Blood Count 2.98 L Hemoglobin 8.8 L Hematocrit 27.9 L Mean Corpuscular Volume 93.6 Mean Corpuscular Hemoglobin 29.5 Mean Corpuscular Hemoglobin Concent 31.5 L Red Cell Distribution Width 14.6 H Platelet Count 144 # Mean Platelet Volume 11.9 H Neutrophils % 86.1 H Lymphocytes % 8.0 L Monocytes % 4.1 Eosinophils % 1.0 Basophils % 0.2 Nucleated Red Blood Cells % 0.0 Neutrophils # 11.7 H Lymphocytes # 1.1 Monocytes # 0.6 Eosinophils # 0.1 Basophils # 0.0 Nucleated Red Blood Cells # 0.0 Sodium Level 140 Potassium Level 3.8 Chloride Level 111 H Carbon Dioxide Level 23 Anion Gap 10 Blood Urea Nitrogen 24 H Creatinine 1.13 Glucose Level 91 # Calcium Level 7.3 L Total Bilirubin 0.3 Direct Bilirubin 0.00 Indirect Bilirubin 0.3 Aspartate Amino Transf (AST/SGOT) 29 Alanine Aminotransferase (ALT/SGPT) 35 Alkaline Phosphatase 58 Total Protein 5.0 L Albumin 2.0 L Globulin 3.00 Albumin/Globulin Ratio 0.66 Medications Current Medications Ondansetron HCl (Zofran Inj) 4 mg Q6H PRN IV NAUSEA AND/OR VOMITING; Start 05/01 at 20:30 Acetaminophen (Tylenol Tab) 650 mg Q6H PRN PO PAIN LEVEL 1-3 OR FEVER Last administered on 05/06/16 08:23; Admin Dose 650 MG; Start 05/01/16 at 20:30 Acetaminophen (Tylenol Supp) 650 mg Q6H PRN [place] PAIN LEVEL 1-3 OR FEVER; Start 05/01/16 at 20:30 Docusate Sodium (Colace) 100 mg Q12H PRN PO CONSTIPATION Last administered on 13:14; Admin Dose 100 MG; Start 05/01/16 at 20:30 Magnesium Hydroxide (Milk Of Mag) 30 ml DAILY PRN PO CONSTIPATION Last administered on 05/03/16 11:52; Admin Dose 30 ML; Start 05/01/16 at 20:30 Bisacodyl (Dulcolax) 5 mg DAILY PRN PO CONSTIPATION; Start 05/01/16 at 20:30 Bisacodyl (Dulcolax Supp) 10 mg DAILY PRN [place] CONSTIPATION; Start 05/01/16 at 20: 30 Sodium Biphosphate/ Sodium Phosphate (Fleet Enema) 133 ml DAILY PRN [place] CONSTIPATION; Start 05/01/16 at 20:30 Pantoprazole (Protonix Iv) 40 mg DAILY@06 IV Last administered on 05/22/16 05: 26; Admin Dose 40 MG; Start 05/02/16 at 06:00 Tamsulosin HCl (Flomax) 0.4 mg HS PO Last administered on 05/21/16 21:31; Admin Dose 0.4 MG; Start 05/03/16 at 21:00 Aspirin (Aspirin) 325 mg DAILY PO Last administered on 05/09/16 08:08; Admin Dose 325 MG; Start 05/04/16 at 09:00; Status Future Hold Lorazepam (Ativan) 2 mg Q2 PRN IV AGITATION Last administered on 05/09/16 12: 35; Admin Dose 2 MG; Start 05/05/16 at 18:00 Morphine Sulfate (morphine) 2 mg Q2H PRN IV PAIN Last administered on 07:55; Admin Dose 2 MG; Start 05/05/16 at 18:00 IV Flush 10 ml 10 ml PRN PRN IV FLUSH LINE; Start 05/06/16 at 13:00 Norepinephrine 16 mg/Dextrose 500 ml @ 1.87 mls/hr TITRATE IV Last administered on 05/22/16 04:33; Admin Dose 9.37 MLS/HR; Start 05/20/16 at 12:00 Phenylephrine HCl/ Dextrose (Nate-Syneph/D5W) 500 ml @ 75 mls/hr TITRATE IV ; Start 05/20/16 at 12:00 Potassium Chloride 20 meq 20 meq DAILY NGT Last administered on 05/21/16 09:00 ; Admin Dose 20 MEQ; Start 05/20/16 at 09:30 Sodium Chloride 1,000 ml @ 50 mls/hr Q20H IV Last administered on 05/22/16 03 :40; Admin Dose 50 MLS/HR; Start 05/20/16 at 11:00 Piperacillin Sod/ Tazobactam Sod (Zosyn 3.375gm/ 100 ml (Pmx)) 100 ml @ 200 mls /hr Q8 IVPB Last administered on 05/22/16 05:26; Admin Dose 200 MLS/HR; Start 05/20/16 at 14:00 Assessment/Plan Chief Complaint/Hosp Course Assessment 1. Hypoxemic and hypercapnic respiratory failure 2. Likely recurrent aspiration 3. Dementia 4. History of dysphagia 5. Failure to thrive Plan 1. Continue mechanical ventilation.Primary care patient has stated patient scheduled for tracheostomy and PEG tube as per family's wishes 2. Continue to feeding as tolerated 3. Continue vasopressor support 4. DVT and GI prophylaxis Disposition Continue ICU care Consider palliative care consult as overall prognosis for this patient is very poor Problems: KAVON TROY MD, [facility] May 22, 2016 11:00
--- NOTE | 2016-05-22 11:17 | PN ---
DATE: 05/22/2016 SUBJECTIVE: The patient was reintubated over weekend he is on Levophed drip, sedated, in no distres s. No fevers. VITAL SIGNS: Temperature 99.2, pulse 62, respirations 20, blood pressure 127/54, saturation 96% on 30 FIO2. LABORATORIES: WBC 13.6, H and H 8.8 and 27.9, platelets 144, neutrophils 86.1, BUN 24, creatinine 1 .13 INDWELLINGS: Endotracheal tube, NG tube, Alfonso, PICC line placed on 05/06/2016. ANTIMICROBIALS: The patient is on Zosyn. PHYSICAL EXAMINATION: GENERAL: This is a chronically ill-appearing, elderly man who is lying comfortably in bed. HEENT: Head atraumatic, normocephalic. Sclerae anicteric. Buccal mucosa dry. NECK: Supple. CHEST: Rise symmetrical. Breath sounds diminished with scattered crackles to bases. HEART: S1, S2. ABDOMEN: Soft, bowel tones present. EXTREMITIES: Without cyanosis, mottled and cold to touch. ASSESSMENT: 1. Septic shock. 2. Recurrent pneumonia, possibly aspiration type. 3. Dysphagia. 4. Respiratory failure. 5. Paroxysmal atrial fibrillation status post permanent pacemaker. PLAN: The patient remains hemodynamically unstable. He is being seen by multiple consultants. Shahzad HAWLEY and trach. Dictated By: JOSE G C[place] HYDROELECTRIC MACHINERY MECHANIC for RASHIDA HUSSEIN/TRACY Conf#: [id number] DID#: [id number]
[2016-05-22] MEDS ORDERED: PROPOFOL 20 ML ONE (11:25)
[2016-05-22] MEDS ORDERED: GLYCOPYRROLATE 0.4 MG INJ ONE (11:26)
[2016-05-22] MEDS ORDERED: EPHEDrine SULFATE 50 MG/5 ML SYG ONE (11:26)
[2016-05-22] MEDS ORDERED: ETOMIDATE 20 MG INJ ONE (11:26)
[2016-05-22] MEDS ORDERED: LIDOCAINE 2% (SDV) 5 ML INJ ONE (11:26)
[2016-05-22] MEDS ORDERED: CEFAZOLIN 1 GM/50 ML (PMX) 50 ML IVPB ONE (11:28)
[2016-05-22] MEDS ORDERED: FENTAnyl 50 MCG/ML VIAL ONE (11:53)
[2016-05-22] MEDS ORDERED: PHENYLephrine (100 MCG/ML) 5ML SYG ONE (11:53)
--- NOTE | 2016-05-22 17:54 | CONS ---
Date/Time of Note Date/Time of Note DATE: 05/22/16 TIME: 17:47 Assessment/Plan Assessment/Plan Chief Complaint/Hosp Course IMPRESSION: 1. Respiratory failure s/p re-intubation 2. 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 negative troponin x 3 this admit. s/p lexsican LVEF 22%/no ischemia/prior [place] 3. 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 Possible cardiac arrhythmia-AFL/AF now rate controlled s/p IVP digoxin 5. History of asthma/chronic obstructive pulmonary disease. 6. Glaucoma. 7. History of bradycardia. 8. Hypotension-on low dose pressors 9. Leukocytosis. 10. Altered mental state. 11. Fevers 12.ARF-slowly improving 14.Hypernatremia Recc: -Now in ICU -Maintain Tele monitoring -Wean pressors as tolerated -Will hold on re-inititation of lovenox given acute drop in Hgb -Continue abx's and f/u cx data Problems: Consultation Date/Type/Reason Admit Date/Time May 01, 2016 at 20:18 Initial Consult Date 05/02/16 Type of Consultation: Cardiology Reason for Consultation CHF/cardiomyopathy Referring Provider: HOLLI LINDER MD Exam/Review of Systems Vital Signs Vitals Vital Signs Date Time Temp Pulse Resp B/P Pulse Ox O2 Delivery O2 Flow Rate FiO2 05/22/16 17:15 65 22 116/70 100 05/22/16 17:14 30 05/22/16 16:15 99.0 05/22/16 08:00 Mechanical Ventilator 05/20/16 00:40 5.0 Intake and Output 05/21/16 05/21/16 05/22/16 15:00 23:00 07:00 Intake Total 535.25 ml 417.50 ml 554.6 ml Output Total 380 ml 340 ml 315 ml Balance 155.25 ml 77.50 ml 239.6 ml Exam Review of Systems: CONSTITUTIONAL: No fevers, chills. PULMONARY: No sob CARDIOVASCULAR: No chest pain/palpitations GASTROINTESTINAL: No nausea/vomiting. GENITOURINARY: No hematuria/dysuria. MUSCULOSKELETAL: No myagias/arthalgias. PSYCHIATRIC: The patient denies depression. NEUROLOGIC: No weakness Constitutional: other (intubated) Psych: no complaints Head: normocephalic ENMT: mucosa pink and moist Neck: jvd (9 cm water), supple Respiratory: diminished breath sounds (at bases/B) Cardiovascular: regular rate and rhythm Gastrointestinal: non-tender, soft Musculoskeletal: muscle tone (normal) Extremities: edema (none) Neurological: other (No focal defiucits) Results Result Diagram: 05/22/16 0400 05/22/16 0400 Results 24 hrs Laboratory Tests Test 05/22/16 04:00 White Blood Count 13.6 #H Red Blood Count 2.98 L Hemoglobin 8.8 L Hematocrit 27.9 L Mean Corpuscular Volume 93.6 Mean Corpuscular Hemoglobin 29.5 Mean Corpuscular Hemoglobin Concent 31.5 L Red Cell Distribution Width 14.6 H Platelet Count 144 # Mean Platelet Volume 11.9 H Neutrophils % 86.1 H Lymphocytes % 8.0 L Monocytes % 4.1 Eosinophils % 1.0 Basophils % 0.2 Nucleated Red Blood Cells % 0.0 Neutrophils # 11.7 H Lymphocytes # 1.1 Monocytes # 0.6 Eosinophils # 0.1 Basophils # 0.0 Nucleated Red Blood Cells # 0.0 Sodium Level 140 Potassium Level 3.8 Chloride Level 111 H Carbon Dioxide Level 23 Anion Gap 10 Blood Urea Nitrogen 24 H Creatinine 1.13 Glucose Level 91 # Calcium Level 7.3 L Total Bilirubin 0.3 Direct Bilirubin 0.00 Indirect Bilirubin 0.3 Aspartate Amino Transf (AST/SGOT) 29 Alanine Aminotransferase (ALT/SGPT) 35 Alkaline Phosphatase 58 Total Protein 5.0 L Albumin 2.0 L Globulin 3.00 Albumin/Globulin Ratio 0.66 Medications Medications Current Medications Ondansetron HCl (Zofran Inj) 4 mg Q6H PRN IV NAUSEA AND/OR VOMITING; Start 05/01 at 20:30 Acetaminophen (Tylenol Tab) 650 mg Q6H PRN PO PAIN LEVEL 1-3 OR FEVER Last administered on 05/06/16 08:23; Admin Dose 650 MG; Start 05/01/16 at 20:30 Acetaminophen (Tylenol Supp) 650 mg Q6H PRN [place] PAIN LEVEL 1-3 OR FEVER; Start 05/01/16 at 20:30 Docusate Sodium (Colace) 100 mg Q12H PRN PO CONSTIPATION Last administered on 13:14; Admin Dose 100 MG; Start 05/01/16 at 20:30 Magnesium Hydroxide (Milk Of Mag) 30 ml DAILY PRN PO CONSTIPATION Last administered on 05/03/16 11:52; Admin Dose 30 ML; Start 05/01/16 at 20:30 Bisacodyl (Dulcolax) 5 mg DAILY PRN PO CONSTIPATION; Start 05/01/16 at 20:30 Bisacodyl (Dulcolax Supp) 10 mg DAILY PRN [place] CONSTIPATION; Start 05/01/16 at 20: 30 Sodium Biphosphate/ Sodium Phosphate (Fleet Enema) 133 ml DAILY PRN [place] CONSTIPATION; Start 05/01/16 at 20:30 Pantoprazole (Protonix Iv) 40 mg DAILY@06 IV Last administered on 05/22/16 05: 26; Admin Dose 40 MG; Start 05/02/16 at 06:00 Tamsulosin HCl (Flomax) 0.4 mg HS PO Last administered on 05/21/16 21:31; Admin Dose 0.4 MG; Start 05/03/16 at 21:00 Aspirin (Aspirin) 325 mg DAILY PO Last administered on 05/09/16 08:08; Admin Dose 325 MG; Start 05/04/16 at 09:00; Status Future Hold Lorazepam (Ativan) 2 mg Q2 PRN IV AGITATION Last administered on 05/09/16 12: 35; Admin Dose 2 MG; Start 05/05/16 at 18:00 Morphine Sulfate (morphine) 2 mg Q2H PRN IV PAIN Last administered on 07:55; Admin Dose 2 MG; Start 05/05/16 at 18:00 IV Flush 10 ml 10 ml PRN PRN IV FLUSH LINE; Start 05/06/16 at 13:00 Norepinephrine 16 mg/Dextrose 500 ml @ 1.87 mls/hr TITRATE IV Last administered on 05/22/16 04:33; Admin Dose 9.37 MLS/HR; Start 05/20/16 at 12:00 Phenylephrine HCl/ Dextrose (Nate-Syneph/D5W) 500 ml @ 75 mls/hr TITRATE IV ; Start 05/20/16 at 12:00 Potassium Chloride 20 meq 20 meq DAILY NGT Last administered on 05/21/16 09:00 ; Admin Dose 20 MEQ; Start 05/20/16 at 09:30 Sodium Chloride 1,000 ml @ 50 mls/hr Q20H IV Last administered on 05/22/16 03 :40; Admin Dose 50 MLS/HR; Start 05/20/16 at 11:00 Piperacillin Sod/ Tazobactam Sod (Zosyn 3.375gm/ 100 ml (Pmx)) 100 ml @ 200 mls /hr Q8 IVPB Last administered on 05/22/16 14:00; Admin Dose 200 MLS/HR; Start 05/20/16 at 14:00 JAYA GORE May 22, 2016 17:54
--- NOTE | 2016-05-22 18:10 | PN ---
Date/Time of Note Date/Time of Note DATE: 05/22/16 TIME: 18:09 Assessment/Plan VTE Prophylaxis VTE Prophylaxis Intervention: other Lines/Catheters IV Catheter Type (from Nrs): PICC Line Central line still needed: Yes Urinary Cath still in place: Yes Reason Cath still needed: other (indicate) Assessment/Plan Chief Complaint/Hosp Course IMPRESSION: The patient has 1. ACUTE RES FAILURE 2. hypernatremia better 3. Hypertension. 4. anxiety 5. PACEMAKER HX 6 low ef 7 leucocytosis 8 RHINA 9 VDRF 10 SEPSIS plan bmp peg and trac per id and pulmonary Problems: Subjective 24 Hr Interval Summary Subjective hx not possible: other (on vent) Exam/Review of Systems Vital Signs Vitals Vital Signs Date Time Temp Pulse Resp B/P Pulse Ox O2 Delivery O2 Flow Rate FiO2 05/22/16 17:15 65 22 116/70 100 05/22/16 17:14 30 05/22/16 16:15 99.0 05/22/16 08:00 Mechanical Ventilator 05/20/16 00:40 5.0 Intake and Output 05/21/16 05/21/16 05/22/16 14:59 22:59 06:59 Intake Total 424 ml 467.50 ml 606.85 ml Output Total 360 ml 345 ml 330 ml Balance 64 ml 122.50 ml 276.85 ml Exam Neck: supple Respiratory: diminished breath sounds Cardiovascular: regular rate and rhythm Musculoskeletal: nl extremities to inspection Extremities: normal pulses Results Result Diagram: 05/22/16 0400 05/22/16 0400 Results 24 hrs Laboratory Tests Test 05/22/16 04:00 White Blood Count 13.6 #H Red Blood Count 2.98 L Hemoglobin 8.8 L Hematocrit 27.9 L Mean Corpuscular Volume 93.6 Mean Corpuscular Hemoglobin 29.5 Mean Corpuscular Hemoglobin Concent 31.5 L Red Cell Distribution Width 14.6 H Platelet Count 144 # Mean Platelet Volume 11.9 H Neutrophils % 86.1 H Lymphocytes % 8.0 L Monocytes % 4.1 Eosinophils % 1.0 Basophils % 0.2 Nucleated Red Blood Cells % 0.0 Neutrophils # 11.7 H Lymphocytes # 1.1 Monocytes # 0.6 Eosinophils # 0.1 Basophils # 0.0 Nucleated Red Blood Cells # 0.0 Sodium Level 140 Potassium Level 3.8 Chloride Level 111 H Carbon Dioxide Level 23 Anion Gap 10 Blood Urea Nitrogen 24 H Creatinine 1.13 Glucose Level 91 # Calcium Level 7.3 L Total Bilirubin 0.3 Direct Bilirubin 0.00 Indirect Bilirubin 0.3 Aspartate Amino Transf (AST/SGOT) 29 Alanine Aminotransferase (ALT/SGPT) 35 Alkaline Phosphatase 58 Total Protein 5.0 L Albumin 2.0 L Globulin 3.00 Albumin/Globulin Ratio 0.66 Medications Medications Current Medications Ondansetron HCl (Zofran Inj) 4 mg Q6H PRN IV NAUSEA AND/OR VOMITING; Start 05/01 at 20:30 Acetaminophen (Tylenol Tab) 650 mg Q6H PRN PO PAIN LEVEL 1-3 OR FEVER Last administered on 05/06/16 08:23; Admin Dose 650 MG; Start 05/01/16 at 20:30 Acetaminophen (Tylenol Supp) 650 mg Q6H PRN [place] PAIN LEVEL 1-3 OR FEVER; Start 05/01/16 at 20:30 Docusate Sodium (Colace) 100 mg Q12H PRN PO CONSTIPATION Last administered on 13:14; Admin Dose 100 MG; Start 05/01/16 at 20:30 Magnesium Hydroxide (Milk Of Mag) 30 ml DAILY PRN PO CONSTIPATION Last administered on 05/03/16 11:52; Admin Dose 30 ML; Start 05/01/16 at 20:30 Bisacodyl (Dulcolax) 5 mg DAILY PRN PO CONSTIPATION; Start 05/01/16 at 20:30 Bisacodyl (Dulcolax Supp) 10 mg DAILY PRN [place] CONSTIPATION; Start 05/01/16 at 20: 30 Sodium Biphosphate/ Sodium Phosphate (Fleet Enema) 133 ml DAILY PRN [place] CONSTIPATION; Start 05/01/16 at 20:30 Pantoprazole (Protonix Iv) 40 mg DAILY@06 IV Last administered on 05/22/16 05: 26; Admin Dose 40 MG; Start 05/02/16 at 06:00 Tamsulosin HCl (Flomax) 0.4 mg HS PO Last administered on 05/21/16 21:31; Admin Dose 0.4 MG; Start 05/03/16 at 21:00 Aspirin (Aspirin) 325 mg DAILY PO Last administered on 05/09/16 08:08; Admin Dose 325 MG; Start 05/04/16 at 09:00; Status Future Hold Lorazepam (Ativan) 2 mg Q2 PRN IV AGITATION Last administered on 05/09/16 12: 35; Admin Dose 2 MG; Start 05/05/16 at 18:00 Morphine Sulfate (morphine) 2 mg Q2H PRN IV PAIN Last administered on 07:55; Admin Dose 2 MG; Start 05/05/16 at 18:00 IV Flush 10 ml 10 ml PRN PRN IV FLUSH LINE; Start 05/06/16 at 13:00 Norepinephrine/ Dextrose (Levophed/D5W) 500 ml @ 1.87 mls/hr TITRATE IV Last administered on 05/22/16 04:33; Admin Dose 9.37 MLS/HR; Start 05/20/16 at 12:00 Potassium Chloride 20 meq 20 meq DAILY NGT Last administered on 05/21/16 09:00 ; Admin Dose 20 MEQ; Start 05/20/16 at 09:30 Piperacillin Sod/ Tazobactam Sod (Zosyn 3.375gm/ 100 ml (Pmx)) 100 ml @ 200 mls /hr Q8 IVPB Last administered on 05/22/16 14:00; Admin Dose 200 MLS/HR; Start 05/20/16 at 14:00 HOLLI LINDER MD May 22, 2016 18:10
[2016-05-22] MEDS: TAMSULOSIN (SR) 0.4 MG CAP PO SCH (20:52)
[2016-05-23] VITALS (67 sets, daily range): BP systolic 82–116; BP diastolic 40–87; PULSE 67–90; RESP 16–25
--- NOTE | 2016-05-23 02:59 | GILP ---
DATE OF PROCEDURE: An 85-year-old male undergoing this procedure for dysphagia. He is intubated a second time. The ri sk of the procedure, related and unrelated complications, anesthetic risks, alternatives discussed a nd informed consent was obtained. The patient was brought to the GI lab, sedated by STEVE Cole, was given NSAID prior to the procedure. After optimum sedation, scope was passed with much ease int o esophagus, advanced further down into stomach and duodenum. There was no evidence of obstruction. Stomach mucosa had erosions produced by the NG tube. By transillumination and digital palpation t echnique, appropriate site was chosen on the anterior abdominal wall. Site was sterilized thoroughl y with chlorhexidine solution, 2% Xylocaine instilled by safe method. There were no organs coming b etween the anterior abdominal wall and the stomach. A small incision was made. Through that incisi on, trocar stylus passed into the stomach. Stylet was removed through the hole over the tip of the catheter. Insertion wire was passed and the entire procedure was completed by modified Sharlene techn ique. The patient was rescoped. The position of the internal bumper confirmed. External bumper se cured. The patient tolerated the procedure very well. IMPRESSION: Successful placement of G-tube done. PLAN: Resume feeding at 8:00 p.m. and all the medication at 6:00 a.m. Abdominal binder all the mae e. Dictated By: NEVAEH CHIN/NTS Conf#: [id number] DID#: [id number]
[2016-05-23 05:56] LABS: ADD SCAN DIFF NO
[2016-05-23] MEDS: PANTOPRAZOLE 40 MG INJ IV SCH (05:56)
[2016-05-23] MEDS: PIPER-TAZO 3.375 GM IV (PMX) 100 ML IVPB SCH ×3 (05:56→21:20)
[2016-05-23 06:01] LABS: BASOPHILS % 0.2 % (0.0-2.0); EOSINOPHILS # 0.1 10^3/ul (0.0-0.5); EOSINOPHILS % 0.6 % (0.0-7.0); HEMATOCRIT 27.1 % (42.0-52.0); HEMOGLOBIN 8.8 g/dl (14.0-18.0); LYMPHOCYTES # 0.9 10^3/ul (0.8-2.9); LYMPHOCYTES % 8.5 % (15.0-51.0); MEAN CORPUSCULAR HEMOGLOBIN 30.6 pg (29.0-33.0); MEAN CORPUSCULAR HGB CONC 32.5 g/dl (32.0-37.0); MEAN CORPUSCULAR VOLUME 94.1 fl (82.0-101.0); MEAN PLATELET VOLUME 11.6 fl (7.4-10.4); MONOCYTE # 0.4 10^3/ul (0.3-0.9); MONOCYTES % 3.9 % (0.0-11.0); NEUTROPHIL # 8.9 10^3/ul (1.6-7.5); NEUTROPHILS % 86.2 % (39.0-77.0); PLATELET COUNT 139 10^3/UL (140-415); RED BLOOD COUNT 2.88 10^6/ul (4.70-6.10); RED CELL DISTRIBUTION WIDTH 14.6 % (11.5-14.5); WHITE BLOOD COUNT 10.3 10^3/ul (4.8-10.8)
[2016-05-23 07:00] LABS: ALBUMIN 2.1 g/dl (3.3-4.9)
[2016-05-23 07:01] LABS: POTASSIUM 3.3 mmol/L (3.5-5.1)
[2016-05-23 07:03] LABS: ALBUMIN/GLOBULIN RATIO 0.67; BILIRUBIN,INDIRECT 0.3 mg/dl (0-1.1); BILIRUBIN,TOTAL 0.3 mg/dl (0.2-1.3); CALCIUM 7.5 mg/dl (8.4-10.2); CREATININE 0.98 mg/dl (0.61-1.24); TOTAL PROTEIN 5.2 g/dl (6.1-8.1)
--- NOTE | 2016-05-23 08:46 | CONS ---
Date/Time of Note Date/Time of Note DATE: 05/23/16 TIME: 08:43 Assessment/Plan Assessment/Plan Additional Assessment/Plan 1. Respiratory failure s/p re-intubation - likely will reqiuie trach - OK to proceed as needed 2. 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 negative troponin x 3 this admit. s/p lexsican LVEF 22%/no ischemia/prior [place] 3. Permanent pacemaker- no signs of dysfunction - now high % paced 4. Possible cardiac arrhythmia-AFL/AF now rate controlled s/p IVP digoxin 5. History of asthma/chronic obstructive pulmonary disease. 6. Glaucoma. 7. History of bradycardia- pacer 8. Hypotension-on low dose pressors- keep euvolemic 9. Leukocytosis - on anti-Bx 10. Altered mental state. 11. Fevers 12.ARF-slowly improving 14.Hypernatremia Consultation Date/Type/Reason Admit Date/Time May 01, 2016 at 20:18 Initial Consult Date 05/05/16 Type of Consultation: Cardiology Referring Provider: HOLLI LINDER MD 24 HR Interval Summary Free Text/Dictation No acute events - paced on tele - trach likely to follow ROS: No fever, no chills, no nausea, no vomiting, no diarrhea/constipation No recent weight changes No chest pain, no PND, no orthopnea No dizziness, blurred vision No thirst, no heat or cold intolerance (per nurse) Exam/Review of Systems Vital Signs Vitals Vital Signs Date Time Temp Pulse Resp B/P Pulse Ox O2 Delivery O2 Flow Rate FiO2 05/23/16 07:35 79 20 99 30 05/23/16 06:15 94/58 05/23/16 05:00 Mechanical Ventilator 05/23/16 04:00 97.9 05/20/16 00:40 5.0 Intake and Output 05/22/16 05/22/16 05/23/16 15:00 23:00 07:00 Intake Total 164 ml 179.35 ml 447.85 ml Output Total 405 ml 370 ml 280 ml Balance -241 ml -190.65 ml 167.85 ml Exam General: WN/WD/NAD, AOx 0 HEENT: Unicetric/atraumatic/EOMI (does not follow commands) NECK: JVD elevated, no thyromegaly, intubated Lymph: no lymphadenopathy HEART: regular with no S3, II/ systolic murmur at apex LUNGS: Coarse sounds ABD: soft, NT, ND, +BS : Intact Neuro: non focal SKIN: chronic changes EXT: trace edema Results Result Diagram: 05/23/1642905/23/16 043 Results 24 hrs Laboratory Tests Test 05/23/16 04:30 White Blood Count 10.3 # Red Blood Count 2.88 L Hemoglobin 8.8 L Hematocrit 27.1 L Mean Corpuscular Volume 94.1 Mean Corpuscular Hemoglobin 30.6 Mean Corpuscular Hemoglobin Concent 32.5 Red Cell Distribution Width 14.6 H Platelet Count 139 L Mean Platelet Volume 11.6 H Neutrophils % 86.2 H Lymphocytes % 8.5 L Monocytes % 3.9 Eosinophils % 0.6 Basophils % 0.2 Nucleated Red Blood Cells % 0.0 Neutrophils # 8.9 H Lymphocytes # 0.9 Monocytes # 0.4 Eosinophils # 0.1 Basophils # 0.0 Nucleated Red Blood Cells # 0.0 Sodium Level 137 Potassium Level 3.3 L Chloride Level 109 Carbon Dioxide Level 22 Anion Gap 9 Blood Urea Nitrogen 21 H Creatinine 0.98 Glucose Level 97 Calcium Level 7.5 L Total Bilirubin 0.3 Direct Bilirubin 0.00 Indirect Bilirubin 0.3 Aspartate Amino Transf (AST/SGOT) 44 # Alanine Aminotransferase (ALT/SGPT) 36 Alkaline Phosphatase 78 Total Protein 5.2 L Albumin 2.1 L Globulin 3.10 Albumin/Globulin Ratio 0.67 Medications Medications Current Medications Ondansetron HCl (Zofran Inj) 4 mg Q6H PRN IV NAUSEA AND/OR VOMITING; Start 05/01 at 20:30 Acetaminophen (Tylenol Tab) 650 mg Q6H PRN PO PAIN LEVEL 1-3 OR FEVER Last administered on 05/06/16 08:23; Admin Dose 650 MG; Start 05/01/16 at 20:30 Acetaminophen (Tylenol Supp) 650 mg Q6H PRN [place] PAIN LEVEL 1-3 OR FEVER; Start 05/01/16 at 20:30 Docusate Sodium (Colace) 100 mg Q12H PRN PO CONSTIPATION Last administered on 13:14; Admin Dose 100 MG; Start 05/01/16 at 20:30 Magnesium Hydroxide (Milk Of Mag) 30 ml DAILY PRN PO CONSTIPATION Last administered on 05/03/16 11:52; Admin Dose 30 ML; Start 05/01/16 at 20:30 Bisacodyl (Dulcolax) 5 mg DAILY PRN PO CONSTIPATION; Start 05/01/16 at 20:30 Bisacodyl (Dulcolax Supp) 10 mg DAILY PRN [place] CONSTIPATION; Start 05/01/16 at 20: 30 Sodium Biphosphate/ Sodium Phosphate (Fleet Enema) 133 ml DAILY PRN [place] CONSTIPATION; Start 05/01/16 at 20:30 Pantoprazole (Protonix Iv) 40 mg DAILY@06 IV Last administered on 05/23/16 05: 56; Admin Dose 40 MG; Start 05/02/16 at 06:00 Tamsulosin HCl (Flomax) 0.4 mg HS PO Last administered on 05/22/16 20:52; Admin Dose 0.4 MG; Start 05/03/16 at 21:00 Aspirin (Aspirin) 325 mg DAILY PO Last administered on 05/09/16 08:08; Admin Dose 325 MG; Start 05/04/16 at 09:00; Status Future Hold Lorazepam (Ativan) 2 mg Q2 PRN IV AGITATION Last administered on 05/09/16 12: 35; Admin Dose 2 MG; Start 05/05/16 at 18:00 Morphine Sulfate (morphine) 2 mg Q2H PRN IV PAIN Last administered on 07:55; Admin Dose 2 MG; Start 05/05/16 at 18:00 IV Flush 10 ml 10 ml PRN PRN IV FLUSH LINE; Start 05/06/16 at 13:00 Norepinephrine/ Dextrose (Levophed/D5W) 500 ml @ 1.87 mls/hr TITRATE IV Last administered on 05/22/16 04:33; Admin Dose 9.37 MLS/HR; Start 05/20/16 at 12:00 Potassium Chloride 20 meq 20 meq DAILY NGT Last administered on 05/21/16 09:00 ; Admin Dose 20 MEQ; Start 05/20/16 at 09:30 Piperacillin Sod/ Tazobactam Sod (Zosyn 3.375gm/ 100 ml (Pmx)) 100 ml @ 200 mls /hr Q8 IVPB Last administered on 05/23/16 05:56; Admin Dose 200 MLS/HR; Start 05/20/16 at 14:00 ZEUS CHAPPELL MD May 23, 2016 08:46
[2016-05-23] MEDS: POTASSIUM CHLORIDE 20 MEQ POWDER FOR ORAL SOLN NGT SCH (09:12)
--- NOTE | 2016-05-23 09:30 | RADRPT ---
PROCEDURE: XR Chest 1 view. CLINICAL INDICATION: Shortness of breath TECHNIQUE: AP views of the chest was obtained. COMPARISON: Yesterday FINDINGS: The heart is large. Calcified atherosclerosis is noted in the aorta. Endotracheal tube is stable an d appears in grossly appropriate location. Right-sided pacemaker has its leads over the heart and i s unchanged. Patchy infiltrates in the bilateral lower lobes are stable, given differences in techni que. Small left pleural effusion is likely present. The osseous structures are unchanged. IMPRESSION: Cardiomegaly with calcified atherosclerosis in the aorta. Stable patchy bilateral lower lobe infiltrates and small left pleural effusion. RPTAT: AA .Fernando Santiago MD, MD Date Time Electronically viewed and signed by .Fernando Santiago MD, on 05/23/2016 09:30 .P/
--- NOTE | 2016-05-23 10:45 | CONS ---
Date/Time of Note Date/Time of Note DATE: 05/23/16 TIME: 10:43 Consult Date/Type/Reason Admit Date/Time May 01, 2016 at 20:18 Initial Consult Date 05/05/16 Type of Consultation: pulmonary/intensive care Ordering Provider: HOLLI LINDER MD Subjective Patient has had PEG tube placed to feeding has been started Continues oral intubation and mechanical ventilation pending tracheostomy Neurologically unchanged Currently hemodynamically stable Objective Vital Signs Date Time Temp Pulse Resp B/P Pulse Ox O2 Delivery O2 Flow Rate FiO2 05/23/16 10:00 75 18 100/47 99 Mechanical Ventilator 05/23/16 08:00 99.2 05/23/16 07:35 30 05/20/16 00:40 5.0 Intake and Output 05/22/16 05/22/16 05/23/16 15:00 23:00 07:00 Intake Total 164 ml 179.35 ml 447.85 ml Output Total 405 ml 370 ml 280 ml Balance -241 ml -190.65 ml 167.85 ml Exam PHYSICAL EXAMINATION GENERAL: Elderly gentleman, intubated on mechanical ventilation, not opening eyes or following commands VITAL SIGNS: see below. HEENT: Pupils equal, round, and reactive to light. CARDIAC: S1, S2, 2 systolic ejection murmur CHEST: Diminished air entry bilaterally. ABDOMEN: Mildly distended. Bowel sounds present G-tube in place EXTREMITIES: No cyanosis, clubbing edema +1 NEUROLOGIC: Unable to assess Results/Medications Result Diagram: 05/23/16 0430 05/23/16 0430 Results 24 hrs Laboratory Tests Test 05/23/16 04:30 White Blood Count 10.3 # Red Blood Count 2.88 L Hemoglobin 8.8 L Hematocrit 27.1 L Mean Corpuscular Volume 94.1 Mean Corpuscular Hemoglobin 30.6 Mean Corpuscular Hemoglobin Concent 32.5 Red Cell Distribution Width 14.6 H Platelet Count 139 L Mean Platelet Volume 11.6 H Neutrophils % 86.2 H Lymphocytes % 8.5 L Monocytes % 3.9 Eosinophils % 0.6 Basophils % 0.2 Nucleated Red Blood Cells % 0.0 Neutrophils # 8.9 H Lymphocytes # 0.9 Monocytes # 0.4 Eosinophils # 0.1 Basophils # 0.0 Nucleated Red Blood Cells # 0.0 Sodium Level 137 Potassium Level 3.3 L Chloride Level 109 Carbon Dioxide Level 22 Anion Gap 9 Blood Urea Nitrogen 21 H Creatinine 0.98 Glucose Level 97 Calcium Level 7.5 L Total Bilirubin 0.3 Direct Bilirubin 0.00 Indirect Bilirubin 0.3 Aspartate Amino Transf (AST/SGOT) 44 # Alanine Aminotransferase (ALT/SGPT) 36 Alkaline Phosphatase 78 Total Protein 5.2 L Albumin 2.1 L Globulin 3.10 Albumin/Globulin Ratio 0.67 Medications Current Medications Ondansetron HCl (Zofran Inj) 4 mg Q6H PRN IV NAUSEA AND/OR VOMITING; Start 05/01 at 20:30 Acetaminophen (Tylenol Tab) 650 mg Q6H PRN PO PAIN LEVEL 1-3 OR FEVER Last administered on 05/06/16 08:23; Admin Dose 650 MG; Start 05/01/16 at 20:30 Acetaminophen (Tylenol Supp) 650 mg Q6H PRN [place] PAIN LEVEL 1-3 OR FEVER; Start 05/01/16 at 20:30 Docusate Sodium (Colace) 100 mg Q12H PRN PO CONSTIPATION Last administered on 13:14; Admin Dose 100 MG; Start 05/01/16 at 20:30 Magnesium Hydroxide (Milk Of Mag) 30 ml DAILY PRN PO CONSTIPATION Last administered on 05/03/16 11:52; Admin Dose 30 ML; Start 05/01/16 at 20:30 Bisacodyl (Dulcolax) 5 mg DAILY PRN PO CONSTIPATION; Start 05/01/16 at 20:30 Bisacodyl (Dulcolax Supp) 10 mg DAILY PRN [place] CONSTIPATION; Start 05/01/16 at 20: 30 Sodium Biphosphate/ Sodium Phosphate (Fleet Enema) 133 ml DAILY PRN [place] CONSTIPATION; Start 05/01/16 at 20:30 Pantoprazole (Protonix Iv) 40 mg DAILY@06 IV Last administered on 05/23/16 05: 56; Admin Dose 40 MG; Start 05/02/16 at 06:00 Tamsulosin HCl (Flomax) 0.4 mg HS PO Last administered on 05/22/16 20:52; Admin Dose 0.4 MG; Start 05/03/16 at 21:00 Aspirin (Aspirin) 325 mg DAILY PO Last administered on 05/09/16 08:08; Admin Dose 325 MG; Start 05/04/16 at 09:00; Status Future Hold Lorazepam (Ativan) 2 mg Q2 PRN IV AGITATION Last administered on 05/09/16 12: 35; Admin Dose 2 MG; Start 05/05/16 at 18:00 Morphine Sulfate (morphine) 2 mg Q2H PRN IV PAIN Last administered on 07:55; Admin Dose 2 MG; Start 05/05/16 at 18:00 IV Flush 10 ml 10 ml PRN PRN IV FLUSH LINE; Start 05/06/16 at 13:00 Norepinephrine/ Dextrose (Levophed/D5W) 500 ml @ 1.87 mls/hr TITRATE IV Last administered on 05/22/16 04:33; Admin Dose 9.37 MLS/HR; Start 05/20/16 at 12:00 Potassium Chloride 20 meq 20 meq DAILY NGT Last administered on 05/23/16 09:12 ; Admin Dose 20 MEQ; Start 05/20/16 at 09:30 Piperacillin Sod/ Tazobactam Sod (Zosyn 3.375gm/ 100 ml (Pmx)) 100 ml @ 200 mls /hr Q8 IVPB Last administered on 05/23/16 05:56; Admin Dose 200 MLS/HR; Start 05/20/16 at 14:00 Assessment/Plan Chief Complaint/Hosp Course Assessment 1. Hypoxemic and hypercapnic respiratory failure 2. Likely recurrent aspiration 3. Dementia 4. History of dysphagia now with G-tube in place 5. Failure to thrive Plan 1. Continue mechanical ventilation. Pending tracheostomy 2. Continue to feeding as tolerated, GI recommendations 3. Vasopressors if needed 4. DVT and GI prophylaxis Disposition Continue ICU care Problems: KAVON TROY MD, [facility] May 23, 2016 10:45
--- NOTE | 2016-05-23 11:11 | CONS ---
DATE OF ADMISSION: 05/01/2016 DATE OF CONSULTATION: REASON FOR CONSULTATION: Evaluation for tracheostomy. Thank you, Dr. Ramirez, for asking me to see this patient. HISTORY OF PRESENT ILLNESS: This is an 85-year-old male with a history of bradycardia. The patient has had a pacemaker. The patient is being admitted with frequent aspiration and pneumonia, unable to keep up with his secretions. The patient just underwent a percutaneous gastrostomy tube. He christy l be needing long-term tracheostomy for pulmonary toilet. PAST MEDICAL HISTORY: Hypertension, hyperlipidemia, glaucoma, COPD, renal insufficiency, hyponatrem ia. PAST SURGICAL HISTORY: PEG. ALLERGIES: NONE. SOCIAL HISTORY: No smoking, drinking or drug use. MEDICATIONS: List reviewed. PHYSICAL EXAMINATION: GENERAL: The patient is intubated, unresponsive. VITAL SIGNS: Blood pressure is 94/58, pulse is 85, respirations 20, saturation is 99% on 30% FIO2. CARDIOVASCULAR: Regular rate and rhythm. LUNGS: Clear. ABDOMEN: Soft. EXTREMITIES: Warm. LABORATORY VALUES: Significant for a white count of 10.3, hemoglobin 8.8, platelet count 139. IMPRESSION: Respiratory failure, unable to clear secretions, multiple bouts of pneumonia. RECOMMENDATIONS: We will proceed with the tracheostomy when consent is available. Discussed with t nursing staff. Dictated By: JO ANN CHOE/TRACY Conf#: [id number] DID#: [id number]
--- NOTE | 2016-05-23 12:25 | CONS ---
Date/Time of Note Date/Time of Note DATE: 05/23/16 TIME: 12:23 Assessment/Plan Assessment/Plan Chief Complaint/Hosp Course SUBJECTIVE: No acute events, looks comfortable, no fevers INDWELLINGS: Endotracheal tube, PEG, Alfonso, PICC line placed on 05/06/2016. ANTIMICROBIALS: Zosyn. PHYSICAL EXAMINATION: GENERAL: This is a chronically ill-appearing, elderly man who is lying comfortably in bed. HEENT: Head atraumatic, normocephalic. Sclerae anicteric. Buccal mucosa dry. NECK: Supple. CHEST: Rise symmetrical. Breath sounds diminished with scattered crackles to bases. HEART: S1, S2. ABDOMEN: Soft, bowel tones present. EXTREMITIES: Without cyanosis, mottled and cold to touch. ASSESSMENT: 1. Septic shock. 2. Recurrent pneumonia, possibly aspiration type. 3. Dysphagia==> s/p PEG 4. Respiratory failure. 5. Paroxysmal atrial fibrillation status post permanent pacemaker. PLAN: Stable off pressors, add Diflucan for C alb + sputum, continue abx, pending trach. DW staff Problems: Consultation Date/Type/Reason Admit Date/Time May 01, 2016 at 20:18 Initial Consult Date 05/05/16 Type of Consultation: ID Referring Provider: HOLLI LINDER MD Exam/Review of Systems Vital Signs Vitals Vital Signs Date Time Temp Pulse Resp B/P Pulse Ox O2 Delivery O2 Flow Rate FiO2 05/23/16 11:25 70 20 96 30 05/23/16 10:00 100/47 Mechanical Ventilator 05/23/16 08:00 99.2 05/20/16 00:40 5.0 Intake and Output 05/22/16 05/22/16 05/23/16 15:00 23:00 07:00 Intake Total 164 ml 179.35 ml 467.85 ml Output Total 405 ml 370 ml 330 ml Balance -241 ml -190.65 ml 137.85 ml Results Result Diagram: 05/23/16 0430 05/23/16 0430 Results 24 hrs Laboratory Tests Test 05/23/16 04:30 White Blood Count 10.3 # Red Blood Count 2.88 L Hemoglobin 8.8 L Hematocrit 27.1 L Mean Corpuscular Volume 94.1 Mean Corpuscular Hemoglobin 30.6 Mean Corpuscular Hemoglobin Concent 32.5 Red Cell Distribution Width 14.6 H Platelet Count 139 L Mean Platelet Volume 11.6 H Neutrophils % 86.2 H Lymphocytes % 8.5 L Monocytes % 3.9 Eosinophils % 0.6 Basophils % 0.2 Nucleated Red Blood Cells % 0.0 Neutrophils # 8.9 H Lymphocytes # 0.9 Monocytes # 0.4 Eosinophils # 0.1 Basophils # 0.0 Nucleated Red Blood Cells # 0.0 Sodium Level 137 Potassium Level 3.3 L Chloride Level 109 Carbon Dioxide Level 22 Anion Gap 9 Blood Urea Nitrogen 21 H Creatinine 0.98 Glucose Level 97 Calcium Level 7.5 L Total Bilirubin 0.3 Direct Bilirubin 0.00 Indirect Bilirubin 0.3 Aspartate Amino Transf (AST/SGOT) 44 # Alanine Aminotransferase (ALT/SGPT) 36 Alkaline Phosphatase 78 Total Protein 5.2 L Albumin 2.1 L Globulin 3.10 Albumin/Globulin Ratio 0.67 Medications Medications Current Medications Ondansetron HCl (Zofran Inj) 4 mg Q6H PRN IV NAUSEA AND/OR VOMITING; Start 05/01 at 20:30 Acetaminophen (Tylenol Tab) 650 mg Q6H PRN PO PAIN LEVEL 1-3 OR FEVER Last administered on 05/06/16 08:23; Admin Dose 650 MG; Start 05/01/16 at 20:30 Acetaminophen (Tylenol Supp) 650 mg Q6H PRN [place] PAIN LEVEL 1-3 OR FEVER; Start 05/01/16 at 20:30 Docusate Sodium (Colace) 100 mg Q12H PRN PO CONSTIPATION Last administered on 13:14; Admin Dose 100 MG; Start 05/01/16 at 20:30 Magnesium Hydroxide (Milk Of Mag) 30 ml DAILY PRN PO CONSTIPATION Last administered on 05/03/16 11:52; Admin Dose 30 ML; Start 05/01/16 at 20:30 Bisacodyl (Dulcolax) 5 mg DAILY PRN PO CONSTIPATION; Start 05/01/16 at 20:30 Bisacodyl (Dulcolax Supp) 10 mg DAILY PRN [place] CONSTIPATION; Start 05/01/16 at 20: 30 Sodium Biphosphate/ Sodium Phosphate (Fleet Enema) 133 ml DAILY PRN [place] CONSTIPATION; Start 05/01/16 at 20:30 Pantoprazole (Protonix Iv) 40 mg DAILY@06 IV Last administered on 05/23/16 05: 56; Admin Dose 40 MG; Start 05/02/16 at 06:00 Tamsulosin HCl (Flomax) 0.4 mg HS PO Last administered on 05/22/16 20:52; Admin Dose 0.4 MG; Start 05/03/16 at 21:00 Aspirin (Aspirin) 325 mg DAILY PO Last administered on 05/09/16 08:08; Admin Dose 325 MG; Start 05/04/16 at 09:00; Status Future Hold Lorazepam (Ativan) 2 mg Q2 PRN IV AGITATION Last administered on 05/09/16 12: 35; Admin Dose 2 MG; Start 05/05/16 at 18:00 Morphine Sulfate (morphine) 2 mg Q2H PRN IV PAIN Last administered on 07:55; Admin Dose 2 MG; Start 05/05/16 at 18:00 IV Flush 10 ml 10 ml PRN PRN IV FLUSH LINE; Start 05/06/16 at 13:00 Norepinephrine/ Dextrose (Levophed/D5W) 500 ml @ 1.87 mls/hr TITRATE IV Last administered on 05/22/16 04:33; Admin Dose 9.37 MLS/HR; Start 05/20/16 at 12:00 Potassium Chloride 20 meq 20 meq DAILY NGT Last administered on 05/23/16 09:12 ; Admin Dose 20 MEQ; Start 05/20/16 at 09:30 Piperacillin Sod/ Tazobactam Sod (Zosyn 3.375gm/ 100 ml (Pmx)) 100 ml @ 200 mls /hr Q8 IVPB Last administered on 05/23/16 05:56; Admin Dose 200 MLS/HR; Start 05/20/16 at 14:00 JOSE G CUNNINGHAM NP May 23, 2016 12:25
[2016-05-23] MEDS: FLUCONAZOLE 100 MG TAB PO SCH (12:30)
--- NOTE | 2016-05-23 17:59 | PN ---
Date/Time of Note Date/Time of Note DATE: 05/23/16 TIME: 17:58 Assessment/Plan Lines/Catheters IV Catheter Type (from Nrsg): PICC Line Alfonso in Place (from Nrsg): Yes Assessment/Plan Chief Complaint/Hosp Course IMPRESSION: Respiratory failure, unable to clear secretions, multiple bouts of pneumonia. RECOMMENDATIONS: We will proceed with the tracheostomy when consent is available. Discussed with the nursing staff. Problems: Subjective 24 Hr Interval Summary Constitutional: improved Pain Control: mild Exam/Review of Systems Vital Signs Vitals Vital Signs Date Time Temp Pulse Resp B/P Pulse Ox O2 Delivery O2 Flow Rate FiO2 05/23/16 17:20 78 20 98 30 05/23/16 15:00 96/40 Mechanical Ventilator 05/23/16 12:00 99.0 05/20/16 00:40 5.0 Intake and Output 05/22/16 05/22/16 05/23/16 15:00 23:00 07:00 Intake Total 164 ml 179.35 ml 467.85 ml Output Total 405 ml 370 ml 330 ml Balance -241 ml -190.65 ml 137.85 ml Exam Neck: non-tender, supple Respiratory: clear to auscultation, normal air movement Cardiovascular: nl pulses, regular rate and rhythm Gastrointestinal: nl liver, spleen, non-tender, soft Results Result Diagram: 05/23/1642905/23/16429 JO ANN KING MD May 23, 2016 17:59
--- NOTE | 2016-05-23 18:12 | PN ---
Date/Time of Note Date/Time of Note DATE: 05/23/16 TIME: 18:10 Assessment/Plan VTE Prophylaxis VTE Prophylaxis Intervention: other Lines/Catheters IV Catheter Type (from Nrs): PICC Line Central line still needed: Yes Urinary Cath still in place: Yes Reason Cath still needed: other (indicate) Assessment/Plan Chief Complaint/Hosp Course IMPRESSION: The patient has 1. ACUTE RES FAILURE 2. hypernatremia better 3. Hypertension. 4. anxiety 5. PACEMAKER HX 6 low ef 7 leucocytosis 8 RHINA 9 VDRF 10 SEPSIS plan bmp peg and trac per id and pulmonary d/w family Problems: Subjective 24 Hr Interval Summary Subjective hx not possible: other (on vent,d/w family they will decide about trac) Exam/Review of Systems Vital Signs Vitals Vital Signs Date Time Temp Pulse Resp B/P Pulse Ox O2 Delivery O2 Flow Rate FiO2 05/23/16 17:20 78 20 98 30 05/23/16 15:00 96/40 Mechanical Ventilator 05/23/16 12:00 99.0 05/20/16 00:40 5.0 Intake and Output 05/22/16 05/22/16 05/23/16 15:00 23:00 07:00 Intake Total 164 ml 179.35 ml 467.85 ml Output Total 405 ml 370 ml 330 ml Balance -241 ml -190.65 ml 137.85 ml Exam Neck: supple Respiratory: diminished breath sounds Cardiovascular: regular rate and rhythm Gastrointestinal: soft Musculoskeletal: nl extremities to inspection Extremities: normal pulses Results Result Diagram: 05/23/16 0430 05/23/16 0430 Results 24 hrs Laboratory Tests Test 05/23/16 04:30 White Blood Count 10.3 # Red Blood Count 2.88 L Hemoglobin 8.8 L Hematocrit 27.1 L Mean Corpuscular Volume 94.1 Mean Corpuscular Hemoglobin 30.6 Mean Corpuscular Hemoglobin Concent 32.5 Red Cell Distribution Width 14.6 H Platelet Count 139 L Mean Platelet Volume 11.6 H Neutrophils % 86.2 H Lymphocytes % 8.5 L Monocytes % 3.9 Eosinophils % 0.6 Basophils % 0.2 Nucleated Red Blood Cells % 0.0 Neutrophils # 8.9 H Lymphocytes # 0.9 Monocytes # 0.4 Eosinophils # 0.1 Basophils # 0.0 Nucleated Red Blood Cells # 0.0 Sodium Level 137 Potassium Level 3.3 L Chloride Level 109 Carbon Dioxide Level 22 Anion Gap 9 Blood Urea Nitrogen 21 H Creatinine 0.98 Glucose Level 97 Calcium Level 7.5 L Total Bilirubin 0.3 Direct Bilirubin 0.00 Indirect Bilirubin 0.3 Aspartate Amino Transf (AST/SGOT) 44 # Alanine Aminotransferase (ALT/SGPT) 36 Alkaline Phosphatase 78 Total Protein 5.2 L Albumin 2.1 L Globulin 3.10 Albumin/Globulin Ratio 0.67 Medications Medications Current Medications Ondansetron HCl (Zofran Inj) 4 mg Q6H PRN IV NAUSEA AND/OR VOMITING; Start 05/01 at 20:30 Acetaminophen (Tylenol Tab) 650 mg Q6H PRN PO PAIN LEVEL 1-3 OR FEVER Last administered on 05/06/16 08:23; Admin Dose 650 MG; Start 05/01/16 at 20:30 Acetaminophen (Tylenol Supp) 650 mg Q6H PRN [place] PAIN LEVEL 1-3 OR FEVER; Start 05/01/16 at 20:30 Docusate Sodium (Colace) 100 mg Q12H PRN PO CONSTIPATION Last administered on 13:14; Admin Dose 100 MG; Start 05/01/16 at 20:30 Magnesium Hydroxide (Milk Of Mag) 30 ml DAILY PRN PO CONSTIPATION Last administered on 05/03/16 11:52; Admin Dose 30 ML; Start 05/01/16 at 20:30 Bisacodyl (Dulcolax) 5 mg DAILY PRN PO CONSTIPATION; Start 05/01/16 at 20:30 Bisacodyl (Dulcolax Supp) 10 mg DAILY PRN [place] CONSTIPATION; Start 05/01/16 at 20: 30 Sodium Biphosphate/ Sodium Phosphate (Fleet Enema) 133 ml DAILY PRN [place] CONSTIPATION; Start 05/01/16 at 20:30 Pantoprazole (Protonix Iv) 40 mg DAILY@06 IV Last administered on 05/23/16 05: 56; Admin Dose 40 MG; Start 05/02/16 at 06:00 Tamsulosin HCl (Flomax) 0.4 mg HS PO Last administered on 05/22/16 20:52; Admin Dose 0.4 MG; Start 05/03/16 at 21:00 Aspirin (Aspirin) 325 mg DAILY PO Last administered on 05/09/16 08:08; Admin Dose 325 MG; Start 05/04/16 at 09:00; Status Future Hold Lorazepam (Ativan) 2 mg Q2 PRN IV AGITATION Last administered on 05/09/16 12: 35; Admin Dose 2 MG; Start 05/05/16 at 18:00 Morphine Sulfate (morphine) 2 mg Q2H PRN IV PAIN Last administered on 07:55; Admin Dose 2 MG; Start 05/05/16 at 18:00 IV Flush 10 ml 10 ml PRN PRN IV FLUSH LINE; Start 05/06/16 at 13:00 Norepinephrine/ Dextrose (Levophed/D5W) 500 ml @ 1.87 mls/hr TITRATE IV Last administered on 05/22/16 04:33; Admin Dose 9.37 MLS/HR; Start 05/20/16 at 12:00 Potassium Chloride 20 meq 20 meq DAILY NGT Last administered on 05/23/16 09:12 ; Admin Dose 20 MEQ; Start 05/20/16 at 09:30 Piperacillin Sod/ Tazobactam Sod (Zosyn 3.375gm/ 100 ml (Pmx)) 100 ml @ 200 mls /hr Q8 IVPB Last administered on 05/23/16 14:00; Admin Dose 200 MLS/HR; Start 05/20/16 at 14:00 Fluconazole (Diflucan) 100 mg DAILY PO Last administered on 05/23/16 12:30; Admin Dose 100 MG; Start 05/23/16 at 12:30 HOLLI LINDER MD May 23, 2016 18:12
[2016-05-23] MEDS: TAMSULOSIN (SR) 0.4 MG CAP PO SCH (21:20)
--- NOTE | 2016-05-23 23:10 | CONS ---
Date/Time of Note Date/Time of Note DATE: 05/23/16 TIME: 23:08 Assessment/Plan Assessment/Plan Additional Assessment/Plan IMPRESSION: 1. Aspiration pneumonia. 2. Leukocytosis. 3. Status post pacemaker insertion. 4. Benign prostatic hypertrophy. 5. Legally blind. 6. Status post extubation. 7. History of bronchial asthma. 8. 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 dysphagia ,s/p PEG,tolerating feeding 11.respiratory failure on vent Plan continue present care Consultation Date/Type/Reason Admit Date/Time May 01, 2016 at 20:18 Initial Consult Date 05/05/16 Type of Consultation: ID Referring Provider: HOLLI LINDER MD 24 HR Interval Summary Subjective hx not possible: pt non-verbal, pt critical Exam/Review of Systems Vital Signs Vitals Vital Signs Date Time Temp Pulse Resp B/P Pulse Ox O2 Delivery O2 Flow Rate FiO2 05/23/16 21:32 82 22 97 30 05/23/16 19:00 94/48 Mechanical Ventilator 05/23/16 16:00 98.8 05/20/16 00:40 5.0 Intake and Output 05/22/16 05/22/16 05/23/16 15:00 23:00 07:00 Intake Total 164 ml 179.35 ml 467.85 ml Output Total 405 ml 370 ml 330 ml Balance -241 ml -190.65 ml 137.85 ml Exam Constitutional: alert, oriented, well developed Psych: nl mood/affect, no complaints Head: atraumatic, normocephalic Eyes: EOMI, PERRL, nl conjunctiva, nl lids, nl sclera ENMT: nl external ears & nose, nl lips & teeth, nl nasal mucosa & septum Neck: non-tender, supple Respiratory: clear to auscultation, normal air movement Cardiovascular: nl pulses, regular rate and rhythm Gastrointestinal: nl liver, spleen, non-tender, soft Musculoskeletal: nl extremities to inspection, nl gait and stance Extremities: normal pulses Neurological: BLOCK PILER II-XII intact, nl mental status, nl speech, nl strength Skin: nl turgor, No rash or lesions Lymph: nl lymph nodes Results Result Diagram: 05/23/16 0430 05/23/16 0430 Results 24 hrs Laboratory Tests Test 05/23/16 04:30 White Blood Count 10.3 # Red Blood Count 2.88 L Hemoglobin 8.8 L Hematocrit 27.1 L Mean Corpuscular Volume 94.1 Mean Corpuscular Hemoglobin 30.6 Mean Corpuscular Hemoglobin Concent 32.5 Red Cell Distribution Width 14.6 H Platelet Count 139 L Mean Platelet Volume 11.6 H Neutrophils % 86.2 H Lymphocytes % 8.5 L Monocytes % 3.9 Eosinophils % 0.6 Basophils % 0.2 Nucleated Red Blood Cells % 0.0 Neutrophils # 8.9 H Lymphocytes # 0.9 Monocytes # 0.4 Eosinophils # 0.1 Basophils # 0.0 Nucleated Red Blood Cells # 0.0 Sodium Level 137 Potassium Level 3.3 L Chloride Level 109 Carbon Dioxide Level 22 Anion Gap 9 Blood Urea Nitrogen 21 H Creatinine 0.98 Glucose Level 97 Calcium Level 7.5 L Total Bilirubin 0.3 Direct Bilirubin 0.00 Indirect Bilirubin 0.3 Aspartate Amino Transf (AST/SGOT) 44 # Alanine Aminotransferase (ALT/SGPT) 36 Alkaline Phosphatase 78 Total Protein 5.2 L Albumin 2.1 L Globulin 3.10 Albumin/Globulin Ratio 0.67 Medications Medications Current Medications Ondansetron HCl (Zofran Inj) 4 mg Q6H PRN IV NAUSEA AND/OR VOMITING; Start 05/01 at 20:30 Acetaminophen (Tylenol Tab) 650 mg Q6H PRN PO PAIN LEVEL 1-3 OR FEVER Last administered on 05/06/16 08:23; Admin Dose 650 MG; Start 05/01/16 at 20:30 Acetaminophen (Tylenol Supp) 650 mg Q6H PRN [place] PAIN LEVEL 1-3 OR FEVER; Start 05/01/16 at 20:30 Docusate Sodium (Colace) 100 mg Q12H PRN PO CONSTIPATION Last administered on 13:14; Admin Dose 100 MG; Start 05/01/16 at 20:30 Magnesium Hydroxide (Milk Of Mag) 30 ml DAILY PRN PO CONSTIPATION Last administered on 05/03/16 11:52; Admin Dose 30 ML; Start 05/01/16 at 20:30 Bisacodyl (Dulcolax) 5 mg DAILY PRN PO CONSTIPATION; Start 05/01/16 at 20:30 Bisacodyl (Dulcolax Supp) 10 mg DAILY PRN [place] CONSTIPATION; Start 05/01/16 at 20: 30 Sodium Biphosphate/ Sodium Phosphate (Fleet Enema) 133 ml DAILY PRN [place] CONSTIPATION; Start 05/01/16 at 20:30 Pantoprazole (Protonix Iv) 40 mg DAILY@06 IV Last administered on 05/23/16 05: 56; Admin Dose 40 MG; Start 05/02/16 at 06:00 Tamsulosin HCl (Flomax) 0.4 mg HS PO Last administered on 05/23/16 21:20; Admin Dose 0.4 MG; Start 05/03/16 at 21:00 Aspirin (Aspirin) 325 mg DAILY PO Last administered on 05/09/16 08:08; Admin Dose 325 MG; Start 05/04/16 at 09:00; Status Future Hold Lorazepam (Ativan) 2 mg Q2 PRN IV AGITATION Last administered on 05/09/16 12: 35; Admin Dose 2 MG; Start 05/05/16 at 18:00 Morphine Sulfate (morphine) 2 mg Q2H PRN IV PAIN Last administered on 07:55; Admin Dose 2 MG; Start 05/05/16 at 18:00 IV Flush 10 ml 10 ml PRN PRN IV FLUSH LINE; Start 05/06/16 at 13:00 Norepinephrine/ Dextrose (Levophed/D5W) 500 ml @ 1.87 mls/hr TITRATE IV Last administered on 05/22/16 04:33; Admin Dose 9.37 MLS/HR; Start 05/20/16 at 12:00 Potassium Chloride 20 meq 20 meq DAILY NGT Last administered on 05/23/16 09:12 ; Admin Dose 20 MEQ; Start 05/20/16 at 09:30 Piperacillin Sod/ Tazobactam Sod (Zosyn 3.375gm/ 100 ml (Pmx)) 100 ml @ 200 mls /hr Q8 IVPB Last administered on 05/23/16 21:20; Admin Dose 200 MLS/HR; Start 05/20/16 at 14:00 Fluconazole (Diflucan) 100 mg DAILY PO Last administered on 05/23/16 12:30; Admin Dose 100 MG; Start 05/23/16 at 12:30 NEVAEH WOODSON MD May 23, 2016 23:10
[2016-05-24] VITALS (95 sets, daily range): BP systolic 76–124; BP diastolic 43–89; PULSE 45–93; RESP 16–32
[2016-05-24] MEDS: PANTOPRAZOLE 40 MG INJ IV SCH (05:41)
[2016-05-24] MEDS: PIPER-TAZO 3.375 GM IV (PMX) 100 ML IVPB SCH ×3 (05:42→22:23)
[2016-05-24 05:49] LABS: ADD SCAN DIFF NO
[2016-05-24 06:07] LABS: ABNORMAL IP MESSAGE 1; BASOPHILS % 0.2 % (0.0-2.0); EOSINOPHILS # 0.1 10^3/ul (0.0-0.5); EOSINOPHILS % 1.2 % (0.0-7.0); HEMATOCRIT 26.4 % (42.0-52.0); HEMOGLOBIN 8.3 g/dl (14.0-18.0); LYMPHOCYTES # 1.1 10^3/ul (0.8-2.9); LYMPHOCYTES % 10.4 % (15.0-51.0); MEAN CORPUSCULAR HEMOGLOBIN 29.6 pg (29.0-33.0); MEAN CORPUSCULAR HGB CONC 31.4 g/dl (32.0-37.0); MEAN CORPUSCULAR VOLUME 94.3 fl (82.0-101.0); MEAN PLATELET VOLUME 12.2 fl (7.4-10.4); MONOCYTE # 0.5 10^3/ul (0.3-0.9); MONOCYTES % 4.5 % (0.0-11.0); NEUTROPHIL # 8.8 10^3/ul (1.6-7.5); NEUTROPHILS % 83.1 % (39.0-77.0); PLATELET COUNT 94 10^3/UL (140-415); RED CELL DISTRIBUTION WIDTH 14.8 % (11.5-14.5); WHITE BLOOD COUNT 10.6 10^3/ul (4.8-10.8)
[2016-05-24 06:15] LABS: POTASSIUM 3.8 mmol/L (3.5-5.1)
[2016-05-24 06:17] LABS: CREATININE 1.01 mg/dl (0.61-1.24)
[2016-05-24 06:18] LABS: CALCIUM 7.7 mg/dl (8.4-10.2)
[2016-05-24] MEDS: POTASSIUM CHLORIDE 20 MEQ POWDER FOR ORAL SOLN NGT SCH (08:32)
[2016-05-24] MEDS: FLUCONAZOLE 100 MG TAB PO SCH (08:32)
--- NOTE | 2016-05-24 09:32 | CONS ---
Date/Time of Note Date/Time of Note DATE: 05/24/16 TIME: 09:28 Assessment/Plan Assessment/Plan Additional Assessment/Plan Ventilator settings are: AC of 20, tidal volume 500, PEEP of 5, 30% FiO2. Assessment and recommendations; 1. Patient initially admitted with severe bilateral pneumonia was successfully extubated transferred to the medical floor with the patient again had pneumonia possibly aspiration now requiring again invasive mechanical ventilation. 2. History of cardiac arrhythmia. 3. History of COPD. Next 4. Mild hypotension with interval improvement. Currently on 2 mics of Levophed per minute. Continue current treatment. The patient does have adequate weaning parameters however this is a second aspiration pneumonia the patient is a good candidate for tracheostomy and G-tube placement. Family is going to decide for that soon. Meanwhile continue current treatment. Consultation Date/Type/Reason Admit Date/Time May 01, 2016 at 20:18 Initial Consult Date 05/05/16 Type of Consultation: Pulmonary/critical care Referring Provider: HOLLI LINDER MD 24 HR Interval Summary Free Text/Dictation Patient condition remains critical but stable. Patient has remained hemodynamically stable. Currently on low-dose Levophed drip. Despite being on sedation patient is mildly arousable. General exam; elderly male, orally intubated, currently in no distress. Exam/Review of Systems Vital Signs Vitals Vital Signs Date Time Temp Pulse Resp B/P Pulse Ox O2 Delivery O2 Flow Rate FiO2 05/24/16 08:30 72 20 99 30 05/24/16 08:15 99/57 Mechanical Ventilator 05/24/16 08:00 99.2 Intake and Output 05/23/16 05/23/16 05/24/16 15:00 23:00 07:00 Intake Total 340 ml 267.48 ml 483.91 ml Output Total 430 ml 290 ml 275 ml Balance -90 ml -22.52 ml 208.91 ml Exam HEENT examination; supple neck, no JVD. No lymphadenopathy. Midline trachea. No thyromegaly. Patient is edentulous. Has bilateral corneal opacities present. No neck masses. Chest examination; diminished but clear breath sounds bilaterally. S1-S2 audible, no murmurs. Regular rhythm. There is a pacemaker in the right chest wall. Abdomen examination; soft, nondistended. No organomegaly. Bowel sounds audible. Extremity examination; no peripheral edema. [facility] examination; patient is sedated. Results Result Diagram: 3/29/17 0520 05/24/16 0520 Results 24 hrs Laboratory Tests Test 05/24/16 05:20 White Blood Count 10.6 Red Blood Count 2.80 L Hemoglobin 8.3 L Hematocrit 26.4 L Mean Corpuscular Volume 94.3 Mean Corpuscular Hemoglobin 29.6 Mean Corpuscular Hemoglobin Concent 31.4 L Red Cell Distribution Width 14.8 H Platelet Count 94 #L Mean Platelet Volume 12.2 H Neutrophils % 83.1 H Lymphocytes % 10.4 L Monocytes % 4.5 Eosinophils % 1.2 Basophils % 0.2 Nucleated Red Blood Cells % 0.0 Neutrophils # 8.8 H Lymphocytes # 1.1 Monocytes # 0.5 Eosinophils # 0.1 Basophils # 0.0 Nucleated Red Blood Cells # 0.0 Sodium Level 138 Potassium Level 3.8 Chloride Level 110 Carbon Dioxide Level 23 Anion Gap 9 Blood Urea Nitrogen 20 Creatinine 1.01 Glucose Level 142 # Calcium Level 7.7 L Medications Medications Current Medications Ondansetron HCl (Zofran Inj) 4 mg Q6H PRN IV NAUSEA AND/OR VOMITING; Start 05/01 at 20:30 Acetaminophen (Tylenol Tab) 650 mg Q6H PRN PO PAIN LEVEL 1-3 OR FEVER Last administered on 05/06/16 08:23; Admin Dose 650 MG; Start 05/01/16 at 20:30 Acetaminophen (Tylenol Supp) 650 mg Q6H PRN [place] PAIN LEVEL 1-3 OR FEVER; Start 05/01/16 at 20:30 Docusate Sodium (Colace) 100 mg Q12H PRN PO CONSTIPATION Last administered on 13:14; Admin Dose 100 MG; Start 05/01/16 at 20:30 Magnesium Hydroxide (Milk Of Mag) 30 ml DAILY PRN PO CONSTIPATION Last administered on 05/03/16 11:52; Admin Dose 30 ML; Start 05/01/16 at 20:30 Bisacodyl (Dulcolax) 5 mg DAILY PRN PO CONSTIPATION; Start 05/01/16 at 20:30 Bisacodyl (Dulcolax Supp) 10 mg DAILY PRN [place] CONSTIPATION; Start 05/01/16 at 20: 30 Sodium Biphosphate/ Sodium Phosphate (Fleet Enema) 133 ml DAILY PRN [place] CONSTIPATION; Start 05/01/16 at 20:30 Pantoprazole (Protonix Iv) 40 mg DAILY@06 IV Last administered on 05/24/16 05: 41; Admin Dose 40 MG; Start 05/02/16 at 06:00 Tamsulosin HCl (Flomax) 0.4 mg HS PO Last administered on 05/23/16 21:20; Admin Dose 0.4 MG; Start 05/03/16 at 21:00 Aspirin (Aspirin) 325 mg DAILY PO Last administered on 05/09/16 08:08; Admin Dose 325 MG; Start 05/04/16 at 09:00; Status Future Hold Lorazepam (Ativan) 2 mg Q2 PRN IV AGITATION Last administered on 05/09/16 12: 35; Admin Dose 2 MG; Start 05/05/16 at 18:00 Morphine Sulfate (morphine) 2 mg Q2H PRN IV PAIN Last administered on 07:55; Admin Dose 2 MG; Start 05/05/16 at 18:00 IV Flush 10 ml 10 ml PRN PRN IV FLUSH LINE; Start 05/06/16 at 13:00 Norepinephrine/ Dextrose (Levophed/D5W) 500 ml @ 1.87 mls/hr TITRATE IV Last administered on 05/23/16 19:00; Admin Dose 1.87 MLS/HR; Start 05/20/16 at 12:00 Potassium Chloride 20 meq 20 meq DAILY NGT Last administered on 05/24/16 08:32 ; Admin Dose 20 MEQ; Start 05/20/16 at 09:30 Piperacillin Sod/ Tazobactam Sod (Zosyn 3.375gm/ 100 ml (Pmx)) 100 ml @ 200 mls /hr Q8 IVPB Last administered on 05/24/16 05:42; Admin Dose 200 MLS/HR; Start 05/20/16 at 14:00 Fluconazole (Diflucan) 100 mg DAILY PO Last administered on 05/24/16 08:32; Admin Dose 100 MG; Start 05/23/16 at 12:30 GERALDINE CUNINNGHAM May 24, 2016 09:31
--- NOTE | 2016-05-24 09:58 | PN ---
Date/Time of Note Date/Time of Note DATE: 05/24/16 TIME: 09:57 Assessment/Plan Lines/Catheters IV Catheter Type (from Nrsg): PICC Line Alfonso in Place (from Nrsg): Yes Assessment/Plan Chief Complaint/Hosp Course IMPRESSION: Respiratory failure, unable to clear secretions, multiple bouts of pneumonia. RECOMMENDATIONS: We will proceed with the tracheostomy . Discussed with the nursing staff. Problems: Subjective 24 Hr Interval Summary Constitutional: improved Pain Control: mild Exam/Review of Systems Vital Signs Vitals Vital Signs Date Time Temp Pulse Resp B/P Pulse Ox O2 Delivery O2 Flow Rate FiO2 05/24/16 09:30 61 23 112/47 100 Mechanical Ventilator 05/24/16 08:30 30 05/24/16 08:00 99.2 Intake and Output 05/23/16 05/23/16 05/24/16 15:00 23:00 07:00 Intake Total 340 ml 267.48 ml 487.66 ml Output Total 430 ml 290 ml 275 ml Balance -90 ml -22.52 ml 212.66 ml Exam Neck: non-tender, supple Respiratory: clear to auscultation, normal air movement Cardiovascular: nl pulses, regular rate and rhythm Gastrointestinal: nl liver, spleen, non-tender, soft Results Result Diagram: 05/24/1651905/24/16519 JO ANN KING MD May 24, 2016 09:58
--- NOTE | 2016-05-24 12:24 | PN ---
DATE: 05/24/2016 SUBJECTIVE: No events overnight. The patient is intubated, lying comfortably in bed, tolerates tube feeding. He is afebrile. OBJECTIVE: VITAL SIGNS: Temperature 99.2, pulse 68, respirations 20, blood pressure 103/54, saturation 100 on 30 FIO2. WBC 10.6, H and H 8.3 and 26.4, platelets 94, neutrophils 83.1, no bands. BUN 20, creatinine 1.01. ANTIMICROBIALS: 1. Zosyn. 2. Fluconazole. INDWELLINGS: Endotracheal tube, PEG, Alfonso, PICC line. PHYSICAL EXAMINATION: GENERAL: This is a chronically ill-appearing, elderly man who is in no distress. HEENT: Head atraumatic, normocephalic. Sclerae anicteric. Buccal mucosa dry. NECK: Supple, trachea midline. CHEST: Rise symmetrical. Breath sounds diminished to bases. HEART: S1, S2. ABDOMEN: Soft, bowel tones present. EXTREMITIES: Without cyanosis. SKIN: No jaundice, no cyanosis. NEUROMUSCULAR: Generalized edema. ASSESSMENT: 1. Sepsis with shock. 2. Acute respiratory failure. 3. Pneumonia, possibly aspiration type. 4. Dysphagia, status post percutaneous endoscopic gastrostomy. 5. Coronary artery disease with a history of pacemaker placement. PLAN: The patient remains unchanged, pending trach. Continue present care, antibiotics. Follow recommendations of consultants. Dictated By: JOSE G CUNNINGHAM INK BLENDER for RASHIDA HUSSEIN/NTS Conf#: [id number] DID#: [id number]
--- NOTE | 2016-05-24 14:28 | CONS ---
Date/Time of Note Date/Time of Note DATE: 05/24/16 TIME: 14:24 Assessment/Plan Assessment/Plan Chief Complaint/Hosp Course IMPRESSION: 1. Respiratory failure s/p re-intubation 2. 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 negative troponin x 3 this admit. s/p lexsican LVEF 22%/no ischemia/prior SC 3. 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 Possible cardiac arrhythmia-AFL/AF currently rate controlled 5. History of asthma/chronic obstructive pulmonary disease. 6. Glaucoma. 7. History of bradycardia. 8. Hypotension-on low dose pressors 9. Leukocytosis. 10. Altered mental state. 11. Fevers 12.ARF-improved Recc: -Now in ICU -Maintain Tele monitoring -Wean pressors as tolerated -Will hold on re-inititation of lovenox given recent acute drop in Hgb -Continue abx's and f/u cx data Problems: Consultation Date/Type/Reason Admit Date/Time May 01, 2016 at 20:18 Initial Consult Date 05/02/16 Type of Consultation: Cardiology Reason for Consultation cardiomyopathy Referring Provider: HOLLI LINDER MD Exam/Review of Systems Vital Signs Vitals Vital Signs Date Time Temp Pulse Resp B/P Pulse Ox O2 Delivery O2 Flow Rate FiO2 05/24/16 13:40 88 20 100 30 05/24/16 12:30 110/59 Mechanical Ventilator 05/24/16 12:00 98.0 Intake and Output 05/23/16 05/23/16 05/24/16 15:00 23:00 07:00 Intake Total 340 ml 267.48 ml 487.66 ml Output Total 430 ml 290 ml 275 ml Balance -90 ml -22.52 ml 212.66 ml Exam Review of Systems: CONSTITUTIONAL: No fevers, chills. PULMONARY: No sob CARDIOVASCULAR: No chest pain/palpitations GASTROINTESTINAL: No nausea/vomiting. GENITOURINARY: No hematuria/dysuria. MUSCULOSKELETAL: No myagias/arthalgias. PSYCHIATRIC: The patient denies depression. NEUROLOGIC: lethargic Constitutional: other (sleeping) Psych: no complaints Head: normocephalic ENMT: intubated, mucosa pink and moist Neck: supple Respiratory: other (upper airway rhocherous sounds) Cardiovascular: irregular rhythm Gastrointestinal: non-tender, soft Musculoskeletal: muscle weakness (generalized) Extremities: other (none) Neurological: lethargic Results Result Diagram: 05/24/16 0520 05/24/16 0520 Results 24 hrs Laboratory Tests Test 05/24/16 05:20 White Blood Count 10.6 Red Blood Count 2.80 L Hemoglobin 8.3 L Hematocrit 26.4 L Mean Corpuscular Volume 94.3 Mean Corpuscular Hemoglobin 29.6 Mean Corpuscular Hemoglobin Concent 31.4 L Red Cell Distribution Width 14.8 H Platelet Count 94 #L Mean Platelet Volume 12.2 H Neutrophils % 83.1 H Lymphocytes % 10.4 L Monocytes % 4.5 Eosinophils % 1.2 Basophils % 0.2 Nucleated Red Blood Cells % 0.0 Neutrophils # 8.8 H Lymphocytes # 1.1 Monocytes # 0.5 Eosinophils # 0.1 Basophils # 0.0 Nucleated Red Blood Cells # 0.0 Sodium Level 138 Potassium Level 3.8 Chloride Level 110 Carbon Dioxide Level 23 Anion Gap 9 Blood Urea Nitrogen 20 Creatinine 1.01 Glucose Level 142 # Calcium Level 7.7 L Medications Medications Current Medications Ondansetron HCl (Zofran Inj) 4 mg Q6H PRN IV NAUSEA AND/OR VOMITING; Start 05/01 at 20:30 Acetaminophen (Tylenol Tab) 650 mg Q6H PRN PO PAIN LEVEL 1-3 OR FEVER Last administered on 05/06/16 08:23; Admin Dose 650 MG; Start 05/01/16 at 20:30 Acetaminophen (Tylenol Supp) 650 mg Q6H PRN [place] PAIN LEVEL 1-3 OR FEVER; Start 05/01/16 at 20:30 Docusate Sodium (Colace) 100 mg Q12H PRN PO CONSTIPATION Last administered on 13:14; Admin Dose 100 MG; Start 05/01/16 at 20:30 Magnesium Hydroxide (Milk Of Mag) 30 ml DAILY PRN PO CONSTIPATION Last administered on 05/03/16 11:52; Admin Dose 30 ML; Start 05/01/16 at 20:30 Bisacodyl (Dulcolax) 5 mg DAILY PRN PO CONSTIPATION; Start 05/01/16 at 20:30 Bisacodyl (Dulcolax Supp) 10 mg DAILY PRN [place] CONSTIPATION; Start 05/01/16 at 20: 30 Sodium Biphosphate/ Sodium Phosphate (Fleet Enema) 133 ml DAILY PRN [place] CONSTIPATION; Start 05/01/16 at 20:30 Pantoprazole (Protonix Iv) 40 mg DAILY@06 IV Last administered on 05/24/16 05: 41; Admin Dose 40 MG; Start 05/02/16 at 06:00 Tamsulosin HCl (Flomax) 0.4 mg HS PO Last administered on 05/23/16 21:20; Admin Dose 0.4 MG; Start 05/03/16 at 21:00 Aspirin (Aspirin) 325 mg DAILY PO Last administered on 05/09/16 08:08; Admin Dose 325 MG; Start 05/04/16 at 09:00; Status Future Hold Lorazepam (Ativan) 2 mg Q2 PRN IV AGITATION Last administered on 05/09/16 12: 35; Admin Dose 2 MG; Start 05/05/16 at 18:00 Morphine Sulfate (morphine) 2 mg Q2H PRN IV PAIN Last administered on 07:55; Admin Dose 2 MG; Start 05/05/16 at 18:00 IV Flush 10 ml 10 ml PRN PRN IV FLUSH LINE; Start 05/06/16 at 13:00 Norepinephrine/ Dextrose (Levophed/D5W) 500 ml @ 1.87 mls/hr TITRATE IV Last administered on 05/23/16 19:00; Admin Dose 1.87 MLS/HR; Start 05/20/16 at 12:00 Potassium Chloride 20 meq 20 meq DAILY NGT Last administered on 05/24/16 08:32 ; Admin Dose 20 MEQ; Start 05/20/16 at 09:30 Piperacillin Sod/ Tazobactam Sod (Zosyn 3.375gm/ 100 ml (Pmx)) 100 ml @ 200 mls /hr Q8 IVPB Last administered on 05/24/16 05:42; Admin Dose 200 MLS/HR; Start 05/20/16 at 14:00 Fluconazole (Diflucan) 100 mg DAILY PO Last administered on 05/24/16 08:32; Admin Dose 100 MG; Start 05/23/16 at 12:30 JAYA GORE 29, 2017 14:28
--- NOTE | 2016-05-24 17:42 | CONS ---
Date/Time of Note Date/Time of Note DATE: 05/24/16 TIME: 17:42 Assessment/Plan Assessment/Plan Additional Assessment/Plan Additional Assessment/Plan IMPRESSION: 1. Aspiration pneumonia. 2. Leukocytosis. 3. Status post pacemaker insertion. 4. Benign prostatic hypertrophy. 5. Legally blind. 6. Status post extubation. 7. History of bronchial asthma. 8. 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 dysphagia ,s/p PEG,tolerating feeding 11.respiratory failure on vent Plan continue present care increase feeding to 50 ml /hr. Consultation Date/Type/Reason Admit Date/Time May 01, 2016 at 20:18 Initial Consult Date 05/05/16 Type of Consultation: Cardiology Referring Provider: HOLLI LINDER MD 24 HR Interval Summary Subjective hx not possible: pt critical Constitutional: improved Exam/Review of Systems Vital Signs Vitals Vital Signs Date Time Temp Pulse Resp B/P Pulse Ox O2 Delivery O2 Flow Rate FiO2 05/24/16 16:45 75 25 120/50 100 Mechanical Ventilator 05/24/16 16:00 98.6 05/24/16 15:31 30 Intake and Output 05/23/16 05/23/16 05/24/16 15:00 23:00 07:00 Intake Total 340 ml 267.48 ml 487.66 ml Output Total 430 ml 290 ml 275 ml Balance -90 ml -22.52 ml 212.66 ml Exam Constitutional: alert, oriented, well developed Psych: nl mood/affect, no complaints Head: atraumatic, normocephalic Eyes: EOMI, PERRL, nl conjunctiva, nl lids, nl sclera ENMT: nl external ears & nose, nl lips & teeth, nl nasal mucosa & septum Neck: non-tender, supple Respiratory: clear to auscultation, normal air movement Cardiovascular: nl pulses, regular rate and rhythm Gastrointestinal: nl liver, spleen, non-tender, soft Musculoskeletal: nl extremities to inspection, nl gait and stance Extremities: normal pulses Neurological: INDUSTRIAL DESIGN ENGINEER II-XII intact, nl mental status, nl speech, nl strength Skin: nl turgor, No rash or lesions Lymph: nl lymph nodes Results Result Diagram: 05/24/16 0520 05/24/16 0520 Results 24 hrs Laboratory Tests Test 05/24/16 05:20 White Blood Count 10.6 Red Blood Count 2.80 L Hemoglobin 8.3 L Hematocrit 26.4 L Mean Corpuscular Volume 94.3 Mean Corpuscular Hemoglobin 29.6 Mean Corpuscular Hemoglobin Concent 31.4 L Red Cell Distribution Width 14.8 H Platelet Count 94 #L Mean Platelet Volume 12.2 H Neutrophils % 83.1 H Lymphocytes % 10.4 L Monocytes % 4.5 Eosinophils % 1.2 Basophils % 0.2 Nucleated Red Blood Cells % 0.0 Neutrophils # 8.8 H Lymphocytes # 1.1 Monocytes # 0.5 Eosinophils # 0.1 Basophils # 0.0 Nucleated Red Blood Cells # 0.0 Sodium Level 138 Potassium Level 3.8 Chloride Level 110 Carbon Dioxide Level 23 Anion Gap 9 Blood Urea Nitrogen 20 Creatinine 1.01 Glucose Level 142 # Calcium Level 7.7 L Medications Medications Current Medications Ondansetron HCl (Zofran Inj) 4 mg Q6H PRN IV NAUSEA AND/OR VOMITING; Start 05/01 at 20:30 Acetaminophen (Tylenol Tab) 650 mg Q6H PRN PO PAIN LEVEL 1-3 OR FEVER Last administered on 05/06/16 08:23; Admin Dose 650 MG; Start 05/01/16 at 20:30 Acetaminophen (Tylenol Supp) 650 mg Q6H PRN [place] PAIN LEVEL 1-3 OR FEVER; Start 05/01/16 at 20:30 Docusate Sodium (Colace) 100 mg Q12H PRN PO CONSTIPATION Last administered on 13:14; Admin Dose 100 MG; Start 05/01/16 at 20:30 Magnesium Hydroxide (Milk Of Mag) 30 ml DAILY PRN PO CONSTIPATION Last administered on 05/03/16 11:52; Admin Dose 30 ML; Start 05/01/16 at 20:30 Bisacodyl (Dulcolax) 5 mg DAILY PRN PO CONSTIPATION; Start 05/01/16 at 20:30 Bisacodyl (Dulcolax Supp) 10 mg DAILY PRN [place] CONSTIPATION; Start 05/01/16 at 20: 30 Sodium Biphosphate/ Sodium Phosphate (Fleet Enema) 133 ml DAILY PRN [place] CONSTIPATION; Start 05/01/16 at 20:30 Pantoprazole (Protonix Iv) 40 mg DAILY@06 IV Last administered on 05/24/16 05: 41; Admin Dose 40 MG; Start 05/02/16 at 06:00 Tamsulosin HCl (Flomax) 0.4 mg HS PO Last administered on 05/23/16 21:20; Admin Dose 0.4 MG; Start 05/03/16 at 21:00 Aspirin (Aspirin) 325 mg DAILY PO Last administered on 05/09/16 08:08; Admin Dose 325 MG; Start 05/04/16 at 09:00; Status Future Hold Lorazepam (Ativan) 2 mg Q2 PRN IV AGITATION Last administered on 05/09/16 12: 35; Admin Dose 2 MG; Start 05/05/16 at 18:00 Morphine Sulfate (morphine) 2 mg Q2H PRN IV PAIN Last administered on 07:55; Admin Dose 2 MG; Start 05/05/16 at 18:00 IV Flush 10 ml 10 ml PRN PRN IV FLUSH LINE; Start 05/06/16 at 13:00 Norepinephrine/ Dextrose (Levophed/D5W) 500 ml @ 1.87 mls/hr TITRATE IV Last administered on 05/23/16 19:00; Admin Dose 1.87 MLS/HR; Start 05/20/16 at 12:00 Potassium Chloride 20 meq 20 meq DAILY NGT Last administered on 05/24/16 08:32 ; Admin Dose 20 MEQ; Start 05/20/16 at 09:30 Piperacillin Sod/ Tazobactam Sod (Zosyn 3.375gm/ 100 ml (Pmx)) 100 ml @ 200 mls /hr Q8 IVPB Last administered on 05/24/16 14:53; Admin Dose 200 MLS/HR; Start 05/20/16 at 14:00 Fluconazole (Diflucan) 100 mg DAILY PO Last administered on 05/24/16 08:32; Admin Dose 100 MG; Start 05/23/16 at 12:30 NEVAEH WOODSON MD May 24, 2016 17:42
--- NOTE | 2016-05-24 19:06 | PN ---
Date/Time of Note Date/Time of Note DATE: 05/24/16 TIME: 19:03 Assessment/Plan VTE Prophylaxis VTE Prophylaxis Intervention: other Lines/Catheters IV Catheter Type (from Nrs): PICC Line Central line still needed: Yes Urinary Cath still in place: Yes Reason Cath still needed: other (indicate) Assessment/Plan Chief Complaint/Hosp Course IMPRESSION: The patient has 1. ACUTE RES FAILURE on vent 2. hypernatremia better 3. Hypertension. 4. anxiety 5. PACEMAKER HX 6 low ef 7 leucocytosis 8 RHINA 9 VDRF 10 SEPSIS 11 s/p peg plan bmp per id and pulmonary d/w family Problems: Subjective 24 Hr Interval Summary Subjective hx not possible: other (on vent) Exam/Review of Systems Vital Signs Vitals Vital Signs Date Time Temp Pulse Resp B/P Pulse Ox O2 Delivery O2 Flow Rate FiO2 05/24/16 18:00 83 22 117/68 100 Mechanical Ventilator 05/24/16 17:25 30 05/24/16 16:00 98.6 Intake and Output 05/23/16 05/23/16 05/24/16 15:00 23:00 07:00 Intake Total 340 ml 267.48 ml 487.66 ml Output Total 430 ml 290 ml 275 ml Balance -90 ml -22.52 ml 212.66 ml Exam Respiratory: diminished breath sounds Cardiovascular: regular rate and rhythm Gastrointestinal: bowel sounds (+), other (peg+), soft Musculoskeletal: nl extremities to inspection Extremities: normal pulses Results Result Diagram: 05/24/16 0520 05/24/16 0520 Results 24 hrs Laboratory Tests Test 05/24/16 05:20 White Blood Count 10.6 Red Blood Count 2.80 L Hemoglobin 8.3 L Hematocrit 26.4 L Mean Corpuscular Volume 94.3 Mean Corpuscular Hemoglobin 29.6 Mean Corpuscular Hemoglobin Concent 31.4 L Red Cell Distribution Width 14.8 H Platelet Count 94 #L Mean Platelet Volume 12.2 H Neutrophils % 83.1 H Lymphocytes % 10.4 L Monocytes % 4.5 Eosinophils % 1.2 Basophils % 0.2 Nucleated Red Blood Cells % 0.0 Neutrophils # 8.8 H Lymphocytes # 1.1 Monocytes # 0.5 Eosinophils # 0.1 Basophils # 0.0 Nucleated Red Blood Cells # 0.0 Sodium Level 138 Potassium Level 3.8 Chloride Level 110 Carbon Dioxide Level 23 Anion Gap 9 Blood Urea Nitrogen 20 Creatinine 1.01 Glucose Level 142 # Calcium Level 7.7 L Medications Medications Current Medications Ondansetron HCl (Zofran Inj) 4 mg Q6H PRN IV NAUSEA AND/OR VOMITING; Start 05/01 at 20:30 Acetaminophen (Tylenol Tab) 650 mg Q6H PRN PO PAIN LEVEL 1-3 OR FEVER Last administered on 05/06/16 08:23; Admin Dose 650 MG; Start 05/01/16 at 20:30 Acetaminophen (Tylenol Supp) 650 mg Q6H PRN [place] PAIN LEVEL 1-3 OR FEVER; Start 05/01/16 at 20:30 Docusate Sodium (Colace) 100 mg Q12H PRN PO CONSTIPATION Last administered on 13:14; Admin Dose 100 MG; Start 05/01/16 at 20:30 Magnesium Hydroxide (Milk Of Mag) 30 ml DAILY PRN PO CONSTIPATION Last administered on 05/03/16 11:52; Admin Dose 30 ML; Start 05/01/16 at 20:30 Bisacodyl (Dulcolax) 5 mg DAILY PRN PO CONSTIPATION; Start 05/01/16 at 20:30 Bisacodyl (Dulcolax Supp) 10 mg DAILY PRN [place] CONSTIPATION; Start 05/01/16 at 20: 30 Sodium Biphosphate/ Sodium Phosphate (Fleet Enema) 133 ml DAILY PRN [place] CONSTIPATION; Start 05/01/16 at 20:30 Pantoprazole (Protonix Iv) 40 mg DAILY@06 IV Last administered on 05/24/16 05: 41; Admin Dose 40 MG; Start 05/02/16 at 06:00 Tamsulosin HCl (Flomax) 0.4 mg HS PO Last administered on 05/23/16 21:20; Admin Dose 0.4 MG; Start 05/03/16 at 21:00 Aspirin (Aspirin) 325 mg DAILY PO Last administered on 05/09/16 08:08; Admin Dose 325 MG; Start 05/04/16 at 09:00; Status Future Hold Lorazepam (Ativan) 2 mg Q2 PRN IV AGITATION Last administered on 05/09/16 12: 35; Admin Dose 2 MG; Start 05/05/16 at 18:00 Morphine Sulfate (morphine) 2 mg Q2H PRN IV PAIN Last administered on 07:55; Admin Dose 2 MG; Start 05/05/16 at 18:00 IV Flush 10 ml 10 ml PRN PRN IV FLUSH LINE; Start 05/06/16 at 13:00 Norepinephrine/ Dextrose (Levophed/D5W) 500 ml @ 1.87 mls/hr TITRATE IV Last administered on 05/23/16 19:00; Admin Dose 1.87 MLS/HR; Start 05/20/16 at 12:00 Potassium Chloride 20 meq 20 meq DAILY NGT Last administered on 05/24/16 08:32 ; Admin Dose 20 MEQ; Start 05/20/16 at 09:30 Piperacillin Sod/ Tazobactam Sod (Zosyn 3.375gm/ 100 ml (Pmx)) 100 ml @ 200 mls /hr Q8 IVPB Last administered on 05/24/16 14:53; Admin Dose 200 MLS/HR; Start 05/20/16 at 14:00 Fluconazole (Diflucan) 100 mg DAILY PO Last administered on 05/24/16 08:32; Admin Dose 100 MG; Start 05/23/16 at 12:30 HOLLI LINDER MD May 24, 2016 19:06
[2016-05-24] MEDS: TAMSULOSIN (SR) 0.4 MG CAP PO SCH (21:11)
[2016-05-25] VITALS (104 sets, daily range): BP systolic 72–115; BP diastolic 37–75; PULSE 47–89; RESP 16–29
[2016-05-25 05:41] LABS: ADD SCAN DIFF NO
[2016-05-25] MEDS: PANTOPRAZOLE 40 MG INJ IV SCH (05:48)
[2016-05-25] MEDS: PIPER-TAZO 3.375 GM IV (PMX) 100 ML IVPB SCH ×3 (05:48→21:30)
[2016-05-25 05:54] LABS: BASOPHILS % 0.1 % (0.0-2.0); EOSINOPHILS # 0.2 10^3/ul (0.0-0.5); EOSINOPHILS % 1.6 % (0.0-7.0); HEMOGLOBIN 8.2 g/dl (14.0-18.0); LYMPHOCYTES # 1.3 10^3/ul (0.8-2.9); LYMPHOCYTES % 13.6 % (15.0-51.0); MEAN CORPUSCULAR HEMOGLOBIN 29.5 pg (29.0-33.0); MEAN CORPUSCULAR HGB CONC 31.5 g/dl (32.0-37.0); MEAN CORPUSCULAR VOLUME 93.5 fl (82.0-101.0); MONOCYTE # 0.5 10^3/ul (0.3-0.9); MONOCYTES % 4.8 % (0.0-11.0); NEUTROPHIL # 7.8 10^3/ul (1.6-7.5); NEUTROPHILS % 79.3 % (39.0-77.0); PLATELET COUNT 161 10^3/UL (140-415); RED BLOOD COUNT 2.78 10^6/ul (4.70-6.10); RED CELL DISTRIBUTION WIDTH 14.7 % (11.5-14.5); WHITE BLOOD COUNT 9.8 10^3/ul (4.8-10.8)
[2016-05-25] MEDS ORDERED: SOD CHLORIDE 0.9% 500 ML IV ONE (09:00)
[2016-05-25] MEDS: POTASSIUM CHLORIDE 20 MEQ POWDER FOR ORAL SOLN NGT SCH (09:25)
[2016-05-25] MEDS: FLUCONAZOLE 100 MG TAB PO SCH (09:25)
--- NOTE | 2016-05-25 09:36 | CONS ---
Date/Time of Note Date/Time of Note DATE: 05/25/16 TIME: 09:34 Assessment/Plan Assessment/Plan Additional Assessment/Plan Ventilator settings; AC of 20, tidal volume 500, PEEP of 5, 30% FiO2. Assessment recommendations; 1. Patient initially admitted with bilateral pneumonia was successfully extubated transferred to medical floor with the patient apparently developed aspiration pneumonia. 2. Likely dysphagia. Status post G-tube placement. 3. History of COPD. 4. History of cardiac arrhythmia. 5. Mild hypotension, currently on Levophed at 2 mics per minute. Continue current treatment. Give the patient half a liter of normal saline fluid bolus and taper off the Levophed as tolerated. Patient's family has agreed for tracheostomy. Prognosis remains guarded. Consultation Date/Type/Reason Admit Date/Time May 01, 2016 at 20:18 Initial Consult Date 05/05/16 Type of Consultation: Pulmonary/critical care Referring Provider: HOLLI LINDER MD 24 HR Interval Summary Free Text/Dictation Patient condition remains critical. Still requiring Levophed however at a very low-dose. Patient is somewhat arousable. Has been off sedation. General exam; elderly male, orally intubated, somewhat arousable. Currently in no distress. Exam/Review of Systems Vital Signs Vitals Vital Signs Date Time Temp Pulse Resp B/P Pulse Ox O2 Delivery O2 Flow Rate FiO2 05/25/16 09:00 60 20 97/48 100 Mechanical Ventilator 05/25/16 08:39 30 05/25/16 08:00 98.3 Intake and Output 05/24/16 05/24/16 05/25/16 15:00 23:00 07:00 Intake Total 286.24 ml 433.74 ml 426.84 ml Output Total 410 ml 360 ml 470 ml Balance -123.76 ml 73.74 ml -43.16 ml Exam HEENT examination; supple neck, no JVD. No lymphadenopathy. Midline trachea. Orally intubated. Patient is edentulous. Has bilateral corneal opacities. Chest examination; diminished but clear breath sounds. S1-S2 audible, no murmurs. Regular rhythm. Abdomen examination; soft, G-tube in place. Bowel sounds audible. No organomegaly. Extremity exam is; no peripheral edema. Next FREIGHT ENGINEER examination; patient is somewhat arousable. Still exhibiting poor mental status. Results Result Diagram: 05/25/16 0450 05/24/16 0520 Results 24 hrs Laboratory Tests Test 05/25/16 04:50 White Blood Count 9.8 Red Blood Count 2.78 L Hemoglobin 8.2 L Hematocrit 26.0 L Mean Corpuscular Volume 93.5 Mean Corpuscular Hemoglobin 29.5 Mean Corpuscular Hemoglobin Concent 31.5 L Red Cell Distribution Width 14.7 H Platelet Count 161 # Mean Platelet Volume 12.0 H Neutrophils % 79.3 H Lymphocytes % 13.6 L Monocytes % 4.8 Eosinophils % 1.6 Basophils % 0.1 Nucleated Red Blood Cells % 0.0 Neutrophils # 7.8 H Lymphocytes # 1.3 Monocytes # 0.5 Eosinophils # 0.2 Basophils # 0.0 Nucleated Red Blood Cells # 0.0 Medications Medications Current Medications Ondansetron HCl (Zofran Inj) 4 mg Q6H PRN IV NAUSEA AND/OR VOMITING; Start 05/01 at 20:30 Acetaminophen (Tylenol Tab) 650 mg Q6H PRN PO PAIN LEVEL 1-3 OR FEVER Last administered on 05/06/16 08:23; Admin Dose 650 MG; Start 05/01/16 at 20:30 Acetaminophen (Tylenol Supp) 650 mg Q6H PRN [place] PAIN LEVEL 1-3 OR FEVER; Start 05/01/16 at 20:30 Docusate Sodium (Colace) 100 mg Q12H PRN PO CONSTIPATION Last administered on 13:14; Admin Dose 100 MG; Start 05/01/16 at 20:30 Magnesium Hydroxide (Milk Of Mag) 30 ml DAILY PRN PO CONSTIPATION Last administered on 05/03/16 11:52; Admin Dose 30 ML; Start 05/01/16 at 20:30 Bisacodyl (Dulcolax) 5 mg DAILY PRN PO CONSTIPATION; Start 05/01/16 at 20:30 Bisacodyl (Dulcolax Supp) 10 mg DAILY PRN [place] CONSTIPATION; Start 05/01/16 at 20: 30 Sodium Biphosphate/ Sodium Phosphate (Fleet Enema) 133 ml DAILY PRN [place] CONSTIPATION; Start 05/01/16 at 20:30 Pantoprazole (Protonix Iv) 40 mg DAILY@06 IV Last administered on 05/25/16 05: 48; Admin Dose 40 MG; Start 05/02/16 at 06:00 Tamsulosin HCl (Flomax) 0.4 mg HS PO Last administered on 05/24/16 21:11; Admin Dose 0.4 MG; Start 05/03/16 at 21:00 Aspirin (Aspirin) 325 mg DAILY PO Last administered on 05/09/16 08:08; Admin Dose 325 MG; Start 05/04/16 at 09:00; Status Future Hold Lorazepam (Ativan) 2 mg Q2 PRN IV AGITATION Last administered on 05/09/16 12: 35; Admin Dose 2 MG; Start 05/05/16 at 18:00 Morphine Sulfate (morphine) 2 mg Q2H PRN IV PAIN Last administered on 07:55; Admin Dose 2 MG; Start 05/05/16 at 18:00 IV Flush 10 ml 10 ml PRN PRN IV FLUSH LINE; Start 05/06/16 at 13:00 Norepinephrine/ Dextrose (Levophed/D5W) 500 ml @ 1.87 mls/hr TITRATE IV Last administered on 05/23/16 19:00; Admin Dose 1.87 MLS/HR; Start 05/20/16 at 12:00 Potassium Chloride 20 meq 20 meq DAILY NGT Last administered on 05/25/16 09:25 ; Admin Dose 20 MEQ; Start 05/20/16 at 09:30 Piperacillin Sod/ Tazobactam Sod (Zosyn 3.375gm/ 100 ml (Pmx)) 100 ml @ 200 mls /hr Q8 IVPB Last administered on 05/25/16 05:48; Admin Dose 200 MLS/HR; Start 05/20/16 at 14:00 Fluconazole 100 mg 100 mg DAILY PO Last administered on 05/25/16 09:25; Admin Dose 100 MG; Start 05/23/16 at 12:30 Sodium Chloride (NS) 500 ml @ 500 mls/hr Q1H ONCE IV Last administered on 05/25 09:26; Admin Dose 500 MLS/HR; Start 05/25/16 at 09:00; Stop 05/25/16 at 09 :59 GERALDINE CUNNINGHAM May 25, 2016 09:36
--- NOTE | 2016-05-25 10:29 | CONS ---
Date/Time of Note Date/Time of Note DATE: 05/25/16 TIME: 10:28 Assessment/Plan Assessment/Plan Additional Assessment/Plan Assessment/Plan Additional Assessment/Plan Additional Assessment/Plan IMPRESSION: 1. Aspiration pneumonia. 2. Leukocytosis. 3. Status post pacemaker insertion. 4. Benign prostatic hypertrophy. 5. Legally blind. 6. Status post extubation. 7. History of bronchial asthma. 8. 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 dysphagia ,s/p PEG,tolerating feeding 11.respiratory failure on vent Plan continue present care increase feeding to 50 ml /hr. patient was still on feeding at 20 cc/h. I have discussed with the staff to increase to 50 cc/h and for some reason it was not done. I discussed with the staff again and she has agreed to increase it. Consultation Date/Type/Reason Admit Date/Time May 01, 2016 at 20:18 Initial Consult Date 05/05/16 Type of Consultation: Pulmonary/critical care Referring Provider: HOLLI LINDER MD 24 HR Interval Summary Subjective hx not possible: pt critical Constitutional: no complaints Exam/Review of Systems Vital Signs Vitals Vital Signs Date Time Temp Pulse Resp B/P Pulse Ox O2 Delivery O2 Flow Rate FiO2 05/25/16 10:20 67 20 100 30 05/25/16 10:15 104/55 05/25/16 10:00 Mechanical Ventilator 05/25/16 08:00 98.3 Intake and Output 05/24/16 05/24/16 05/25/16 15:00 23:00 07:00 Intake Total 286.24 ml 433.74 ml 428.84 ml Output Total 410 ml 360 ml 470 ml Balance -123.76 ml 73.74 ml -41.16 ml Exam Constitutional: alert, oriented, well developed Psych: nl mood/affect, no complaints Head: atraumatic, normocephalic Eyes: EOMI, PERRL, nl conjunctiva, nl lids, nl sclera ENMT: nl external ears & nose, nl lips & teeth, nl nasal mucosa & septum Neck: non-tender, supple Respiratory: clear to auscultation, normal air movement Cardiovascular: nl pulses, regular rate and rhythm Gastrointestinal: nl liver, spleen, non-tender, soft Musculoskeletal: nl extremities to inspection, nl gait and stance Extremities: normal pulses Neurological: SUSTAINABILITY ANALYST II-XII intact, nl mental status, nl speech, nl strength Skin: nl turgor, No rash or lesions Lymph: nl lymph nodes Results Result Diagram: 05/25/16 0450 05/24/16 0520 Results 24 hrs Laboratory Tests Test 05/25/16 04:50 White Blood Count 9.8 Red Blood Count 2.78 L Hemoglobin 8.2 L Hematocrit 26.0 L Mean Corpuscular Volume 93.5 Mean Corpuscular Hemoglobin 29.5 Mean Corpuscular Hemoglobin Concent 31.5 L Red Cell Distribution Width 14.7 H Platelet Count 161 # Mean Platelet Volume 12.0 H Neutrophils % 79.3 H Lymphocytes % 13.6 L Monocytes % 4.8 Eosinophils % 1.6 Basophils % 0.1 Nucleated Red Blood Cells % 0.0 Neutrophils # 7.8 H Lymphocytes # 1.3 Monocytes # 0.5 Eosinophils # 0.2 Basophils # 0.0 Nucleated Red Blood Cells # 0.0 Medications Medications Current Medications Ondansetron HCl (Zofran Inj) 4 mg Q6H PRN IV NAUSEA AND/OR VOMITING; Start 05/01 at 20:30 Acetaminophen (Tylenol Tab) 650 mg Q6H PRN PO PAIN LEVEL 1-3 OR FEVER Last administered on 05/06/16 08:23; Admin Dose 650 MG; Start 05/01/16 at 20:30 Acetaminophen (Tylenol Supp) 650 mg Q6H PRN [place] PAIN LEVEL 1-3 OR FEVER; Start 05/01/16 at 20:30 Docusate Sodium (Colace) 100 mg Q12H PRN PO CONSTIPATION Last administered on 13:14; Admin Dose 100 MG; Start 05/01/16 at 20:30 Magnesium Hydroxide (Milk Of Mag) 30 ml DAILY PRN PO CONSTIPATION Last administered on 05/03/16 11:52; Admin Dose 30 ML; Start 05/01/16 at 20:30 Bisacodyl (Dulcolax) 5 mg DAILY PRN PO CONSTIPATION; Start 05/01/16 at 20:30 Bisacodyl (Dulcolax Supp) 10 mg DAILY PRN [place] CONSTIPATION; Start 05/01/16 at 20: 30 Sodium Biphosphate/ Sodium Phosphate (Fleet Enema) 133 ml DAILY PRN [place] CONSTIPATION; Start 05/01/16 at 20:30 Pantoprazole (Protonix Iv) 40 mg DAILY@06 IV Last administered on 05/25/16 05: 48; Admin Dose 40 MG; Start 05/02/16 at 06:00 Tamsulosin HCl (Flomax) 0.4 mg HS PO Last administered on 05/24/16 21:11; Admin Dose 0.4 MG; Start 05/03/16 at 21:00 Aspirin (Aspirin) 325 mg DAILY PO Last administered on 05/09/16 08:08; Admin Dose 325 MG; Start 05/04/16 at 09:00; Status Future Hold Lorazepam (Ativan) 2 mg Q2 PRN IV AGITATION Last administered on 05/09/16 12: 35; Admin Dose 2 MG; Start 05/05/16 at 18:00 Morphine Sulfate (morphine) 2 mg Q2H PRN IV PAIN Last administered on 07:55; Admin Dose 2 MG; Start 05/05/16 at 18:00 IV Flush 10 ml 10 ml PRN PRN IV FLUSH LINE; Start 05/06/16 at 13:00 Norepinephrine/ Dextrose (Levophed/D5W) 500 ml @ 1.87 mls/hr TITRATE IV Last administered on 05/23/16 19:00; Admin Dose 1.87 MLS/HR; Start 05/20/16 at 12:00 Potassium Chloride 20 meq 20 meq DAILY NGT Last administered on 05/25/16 09:25 ; Admin Dose 20 MEQ; Start 05/20/16 at 09:30 Piperacillin Sod/ Tazobactam Sod (Zosyn 3.375gm/ 100 ml (Pmx)) 100 ml @ 200 mls /hr Q8 IVPB Last administered on 05/25/16 05:48; Admin Dose 200 MLS/HR; Start 05/20/16 at 14:00 Fluconazole (Diflucan) 100 mg DAILY PO Last administered on 05/25/16 09:25; Admin Dose 100 MG; Start 05/23/16 at 12:30 NEVAEH WOODSON MD May 25, 2016 10:29
--- NOTE | 2016-05-25 11:30 | PN ---
DATE: 05/25/2016 SUBJECTIVE: No events overnight. The patient remains intubated on low dose of Levophed drip. No f harris. VITAL SIGNS: Temperature 98.3, pulse 67, respirations 20, blood pressure 104/55, saturation 100 on 30 FIO2. WBC 9.8, H and H 8.2 and 26, platelets 161, neutrophils 79.3, BUN 20, creatinine 1.01. ANTIMICROBIALS: 1. Zosyn. 2. Fluconazole. INDWELLINGS: Endotracheal tube, PEG, Alfonso, PICC line. PHYSICAL EXAMINATION: GENERAL: This is a chronically ill-appearing, elderly man who is in no distress. HEENT: Head atraumatic, normocephalic. Sclerae anicteric. Buccal mucosa dry. NECK: Supple, trachea midline. CHEST: Rise symmetrical. Breath sounds diminished to bases. HEART: S1, S2. ABDOMEN: Soft, bowel tones present. EXTREMITIES: Without cyanosis. Bilateral trace edema. ASSESSMENT: 1. Septic shock. 2. Acute respiratory failure. 3. Healthcare-acquired pneumonia, also aspiration pneumonia. 4. Dysphagia, status post percutaneous endoscopic gastrostomy. 5. History of permanent pacemaker placement. 6. Dementia. PLAN: The patient remains hemodynamically unstable and clinically unchanged. He is on appropriate antimicrobials pending tracheostomy. Dictated By: JOSE G CUNNINGHAM [employer] OPERATOR for RASHIDA HUSSEIN/TRACY Conf#: [id number] DID#: [id number]
--- NOTE | 2016-05-25 12:09 | CONS ---
Date/Time of Note Date/Time of Note DATE: 05/25/16 TIME: 12:04 Assessment/Plan Assessment/Plan Chief Complaint/Hosp Course IMPRESSION: 1. Respiratory failure s/p re-intubation 2. 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 negative troponin x 3 this admit. s/p lexsican LVEF 22%/no ischemia/prior [place] 3. 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 Possible cardiac arrhythmia-AFL/AF currently rate controlled 5. History of asthma/chronic obstructive pulmonary disease. 6. Glaucoma. 7. History of bradycardia. 8. Hypotension-currrently ogg levo but with low BP.marginal BP 9. Leukocytosis. 10. Altered mental state. 11. Fevers 12.ARF-improved Recc: -Now in ICU -Maintain Tele monitoring -Follow BP closely with possible need to restart pressors -Will hold on re-inititation of lovenox given recent acute drop in Hgb -Continue abx's and f/u cx data -Give small IVF bolus and follow BP closely as above -pnding trach Problems: Consultation Date/Type/Reason Admit Date/Time May 01, 2016 at 20:18 Initial Consult Date 05/02/16 Type of Consultation: Cardiology Reason for Consultation CHF/cardiomyopathy Referring Provider: HOLLI LINDER MD Exam/Review of Systems Vital Signs Vitals Vital Signs Date Time Temp Pulse Resp B/P Pulse Ox O2 Delivery O2 Flow Rate FiO2 05/25/16 10:20 67 20 100 30 05/25/16 10:15 104/55 05/25/16 10:00 Mechanical Ventilator 05/25/16 08:00 98.3 Intake and Output 05/24/16 05/24/16 05/25/16 15:00 23:00 07:00 Intake Total 286.24 ml 433.74 ml 428.84 ml Output Total 410 ml 360 ml 470 ml Balance -123.76 ml 73.74 ml -41.16 ml Exam Review of Systems: CONSTITUTIONAL: No fevers, chills. PULMONARY: intubated CARDIOVASCULAR: No obviouos chest pain/palpitations GASTROINTESTINAL: No nausea/vomiting. GENITOURINARY: No hematuria/dysuria. MUSCULOSKELETAL: No obvious myagias/arthalgias. PSYCHIATRIC: The patient denies depression. NEUROLOGIC: No weakness Constitutional: alert Psych: no complaints Head: normocephalic ENMT: mucosa pink and moist Neck: jvd (9 cm water), supple Respiratory: diminished breath sounds (at bases/B) Cardiovascular: regular rate and rhythm Gastrointestinal: soft Musculoskeletal: muscle tone Extremities: normal pulses Neurological: other (No focal deficits) Results Result Diagram: 05/25/16 0450 05/24/16 0520 Results 24 hrs Laboratory Tests Test 05/25/16 04:50 White Blood Count 9.8 Red Blood Count 2.78 L Hemoglobin 8.2 L Hematocrit 26.0 L Mean Corpuscular Volume 93.5 Mean Corpuscular Hemoglobin 29.5 Mean Corpuscular Hemoglobin Concent 31.5 L Red Cell Distribution Width 14.7 H Platelet Count 161 # Mean Platelet Volume 12.0 H Neutrophils % 79.3 H Lymphocytes % 13.6 L Monocytes % 4.8 Eosinophils % 1.6 Basophils % 0.1 Nucleated Red Blood Cells % 0.0 Neutrophils # 7.8 H Lymphocytes # 1.3 Monocytes # 0.5 Eosinophils # 0.2 Basophils # 0.0 Nucleated Red Blood Cells # 0.0 Medications Medications Current Medications Ondansetron HCl (Zofran Inj) 4 mg Q6H PRN IV NAUSEA AND/OR VOMITING; Start 05/01 at 20:30 Acetaminophen (Tylenol Tab) 650 mg Q6H PRN PO PAIN LEVEL 1-3 OR FEVER Last administered on 05/06/16 08:23; Admin Dose 650 MG; Start 05/01/16 at 20:30 Acetaminophen (Tylenol Supp) 650 mg Q6H PRN [place] PAIN LEVEL 1-3 OR FEVER; Start 05/01/16 at 20:30 Docusate Sodium (Colace) 100 mg Q12H PRN PO CONSTIPATION Last administered on 13:14; Admin Dose 100 MG; Start 05/01/16 at 20:30 Magnesium Hydroxide (Milk Of Mag) 30 ml DAILY PRN PO CONSTIPATION Last administered on 05/03/16 11:52; Admin Dose 30 ML; Start 05/01/16 at 20:30 Bisacodyl (Dulcolax) 5 mg DAILY PRN PO CONSTIPATION; Start 05/01/16 at 20:30 Bisacodyl (Dulcolax Supp) 10 mg DAILY PRN [place] CONSTIPATION; Start 05/01/16 at 20: 30 Sodium Biphosphate/ Sodium Phosphate (Fleet Enema) 133 ml DAILY PRN [place] CONSTIPATION; Start 05/01/16 at 20:30 Pantoprazole (Protonix Iv) 40 mg DAILY@06 IV Last administered on 05/25/16 05: 48; Admin Dose 40 MG; Start 05/02/16 at 06:00 Tamsulosin HCl (Flomax) 0.4 mg HS PO Last administered on 05/24/16 21:11; Admin Dose 0.4 MG; Start 05/03/16 at 21:00 Aspirin (Aspirin) 325 mg DAILY PO Last administered on 05/09/16 08:08; Admin Dose 325 MG; Start 05/04/16 at 09:00; Status Future Hold Lorazepam (Ativan) 2 mg Q2 PRN IV AGITATION Last administered on 05/09/16 12: 35; Admin Dose 2 MG; Start 05/05/16 at 18:00 Morphine Sulfate (morphine) 2 mg Q2H PRN IV PAIN Last administered on 07:55; Admin Dose 2 MG; Start 05/05/16 at 18:00 IV Flush 10 ml 10 ml PRN PRN IV FLUSH LINE; Start 05/06/16 at 13:00 Norepinephrine/ Dextrose (Levophed/D5W) 500 ml @ 1.87 mls/hr TITRATE IV Last administered on 05/23/16 19:00; Admin Dose 1.87 MLS/HR; Start 05/20/16 at 12:00 Potassium Chloride 20 meq 20 meq DAILY NGT Last administered on 05/25/16 09:25 ; Admin Dose 20 MEQ; Start 05/20/16 at 09:30 Piperacillin Sod/ Tazobactam Sod (Zosyn 3.375gm/ 100 ml (Pmx)) 100 ml @ 200 mls /hr Q8 IVPB Last administered on 05/25/16 05:48; Admin Dose 200 MLS/HR; Start 05/20/16 at 14:00 Fluconazole (Diflucan) 100 mg DAILY PO Last administered on 05/25/16 09:25; Admin Dose 100 MG; Start 05/23/16 at 12:30 JAYA GORE May 25, 2016 12:09
[2016-05-25] MEDS ORDERED: SOD CHLORIDE 0.9% 250 ML IV ONE (12:30)
--- NOTE | 2016-05-25 20:07 | PN ---
Date/Time of Note Date/Time of Note DATE: 05/25/16 TIME: 20:06 Assessment/Plan VTE Prophylaxis VTE Prophylaxis Intervention: other Lines/Catheters IV Catheter Type (from Nrsg): PICC Line Central line still needed: Yes Urinary Cath still in place: Yes Reason Cath still needed: other (indicate) Assessment/Plan Chief Complaint/Hosp Course IMPRESSION: The patient has 1. ACUTE RES FAILURE on vent 2. hypernatremia better 3. Hypertension. 4. anxiety 5. PACEMAKER HX 6 low ef 7 leucocytosis 8 RHINA 9 VDRF 10 SEPSIS 11 s/p peg plan bmp per id and pulmonary d/w family [facility] am Problems: Subjective 24 Hr Interval Summary Subjective hx not possible: other (d/w dr harrison [facility] am) Exam/Review of Systems Vital Signs Vitals Vital Signs Date Time Temp Pulse Resp B/P Pulse Ox O2 Delivery O2 Flow Rate FiO2 05/25/16 20:00 98.2 73 21 83/50 98 Mechanical Ventilator 05/25/16 19:15 30 Intake and Output 05/24/16 05/24/16 05/25/16 15:00 23:00 07:00 Intake Total 286.24 ml 433.74 ml 428.84 ml Output Total 410 ml 360 ml 470 ml Balance -123.76 ml 73.74 ml -41.16 ml Exam Neck: supple Respiratory: clear to auscultation Cardiovascular: regular rate and rhythm Gastrointestinal: soft Musculoskeletal: nl extremities to inspection Extremities: normal pulses Results Result Diagram: 05/25/16 0450 05/24/16 0520 Results 24 hrs Laboratory Tests Test 05/25/16 04:50 White Blood Count 9.8 Red Blood Count 2.78 L Hemoglobin 8.2 L Hematocrit 26.0 L Mean Corpuscular Volume 93.5 Mean Corpuscular Hemoglobin 29.5 Mean Corpuscular Hemoglobin Concent 31.5 L Red Cell Distribution Width 14.7 H Platelet Count 161 # Mean Platelet Volume 12.0 H Neutrophils % 79.3 H Lymphocytes % 13.6 L Monocytes % 4.8 Eosinophils % 1.6 Basophils % 0.1 Nucleated Red Blood Cells % 0.0 Neutrophils # 7.8 H Lymphocytes # 1.3 Monocytes # 0.5 Eosinophils # 0.2 Basophils # 0.0 Nucleated Red Blood Cells # 0.0 Medications Medications Current Medications Ondansetron HCl (Zofran Inj) 4 mg Q6H PRN IV NAUSEA AND/OR VOMITING; Start 05/01 at 20:30 Acetaminophen (Tylenol Tab) 650 mg Q6H PRN PO PAIN LEVEL 1-3 OR FEVER Last administered on 05/06/16 08:23; Admin Dose 650 MG; Start 05/01/16 at 20:30 Acetaminophen (Tylenol Supp) 650 mg Q6H PRN [place] PAIN LEVEL 1-3 OR FEVER; Start 05/01/16 at 20:30 Docusate Sodium (Colace) 100 mg Q12H PRN PO CONSTIPATION Last administered on 13:14; Admin Dose 100 MG; Start 05/01/16 at 20:30 Magnesium Hydroxide (Milk Of Mag) 30 ml DAILY PRN PO CONSTIPATION Last administered on 05/03/16 11:52; Admin Dose 30 ML; Start 05/01/16 at 20:30 Bisacodyl (Dulcolax) 5 mg DAILY PRN PO CONSTIPATION; Start 05/01/16 at 20:30 Bisacodyl (Dulcolax Supp) 10 mg DAILY PRN [place] CONSTIPATION; Start 05/01/16 at 20: 30 Sodium Biphosphate/ Sodium Phosphate (Fleet Enema) 133 ml DAILY PRN [place] CONSTIPATION; Start 05/01/16 at 20:30 Pantoprazole (Protonix Iv) 40 mg DAILY@06 IV Last administered on 05/25/16 05: 48; Admin Dose 40 MG; Start 05/02/16 at 06:00 Tamsulosin HCl (Flomax) 0.4 mg HS PO Last administered on 05/24/16 21:11; Admin Dose 0.4 MG; Start 05/03/16 at 21:00 Aspirin (Aspirin) 325 mg DAILY PO Last administered on 05/09/16 08:08; Admin Dose 325 MG; Start 05/04/16 at 09:00; Status Future Hold Lorazepam (Ativan) 2 mg Q2 PRN IV AGITATION Last administered on 05/09/16 12: 35; Admin Dose 2 MG; Start 05/05/16 at 18:00 Morphine Sulfate (morphine) 2 mg Q2H PRN IV PAIN Last administered on 07:55; Admin Dose 2 MG; Start 05/05/16 at 18:00 IV Flush 10 ml 10 ml PRN PRN IV FLUSH LINE; Start 05/06/16 at 13:00 Norepinephrine/ Dextrose (Levophed/D5W) 500 ml @ 1.87 mls/hr TITRATE IV Last administered on 05/23/16 19:00; Admin Dose 1.87 MLS/HR; Start 05/20/16 at 12:00 Potassium Chloride 20 meq 20 meq DAILY NGT Last administered on 05/25/16 09:25 ; Admin Dose 20 MEQ; Start 05/20/16 at 09:30 Piperacillin Sod/ Tazobactam Sod (Zosyn 3.375gm/ 100 ml (Pmx)) 100 ml @ 200 mls /hr Q8 IVPB Last administered on 05/25/16 14:36; Admin Dose 200 MLS/HR; Start 05/20/16 at 14:00 Fluconazole (Diflucan) 100 mg DAILY PO Last administered on 05/25/16 09:25; Admin Dose 100 MG; Start 05/23/16 at 12:30 HOLLI LINDER MD May 25, 2016 20:07
[2016-05-25] MEDS: TAMSULOSIN (SR) 0.4 MG CAP PO SCH (20:37)
--- NOTE | 2016-05-25 21:43 | PN ---
Date/Time of Note Date/Time of Note DATE: 05/25/16 TIME: 21:42 Assessment/Plan VTE Prophylaxis VTE Prophylaxis Intervention: other Lines/Catheters IV [facility]ter Type (from [facility]): Central line still needed: No Urinary Cath still in place: No Assessment/Plan Chief Complaint/Hosp Course IMPRESSION: Respiratory failure, unable to clear secretions, multiple bouts of pneumonia. RECOMMENDATIONS: We will proceed with the tracheostomy tomorrow . Discussed with the nursing staff. Problems: Subjective 24 Hr Interval Summary Cardiovascular: no complaints Gastrointestinal: no complaints Genitourinary: no complaints Musculoskeletal: no complaints Skin: no complaints Exam/Review of Systems Vital Signs Vitals Vital Signs Date Time Temp Pulse Resp B/P Pulse Ox O2 Delivery O2 Flow Rate FiO2 05/25/16 21:22 60 25 100 30 05/25/16 21:15 90/47 Mechanical Ventilator 05/25/16 20:00 98.2 Intake and Output 05/24/16 05/24/16 05/25/16 15:00 23:00 07:00 Intake Total 286.24 ml 433.74 ml 428.84 ml Output Total 410 ml 360 ml 470 ml Balance -123.76 ml 73.74 ml -41.16 ml Exam Neck: non-tender, supple Respiratory: clear to auscultation, normal air movement Cardiovascular: nl pulses, regular rate and rhythm Gastrointestinal: nl liver, spleen, non-tender, soft Results Result Diagram: 05/25/16 0450 05/24/16 0520 Results 24 hrs Laboratory Tests Test 05/25/16 04:50 White Blood Count 9.8 Red Blood Count 2.78 L Hemoglobin 8.2 L Hematocrit 26.0 L Mean Corpuscular Volume 93.5 Mean Corpuscular Hemoglobin 29.5 Mean Corpuscular Hemoglobin Concent 31.5 L Red Cell Distribution Width 14.7 H Platelet Count 161 # Mean Platelet Volume 12.0 H Neutrophils % 79.3 H Lymphocytes % 13.6 L Monocytes % 4.8 Eosinophils % 1.6 Basophils % 0.1 Nucleated Red Blood Cells % 0.0 Neutrophils # 7.8 H Lymphocytes # 1.3 Monocytes # 0.5 Eosinophils # 0.2 Basophils # 0.0 Nucleated Red Blood Cells # 0.0 Medications Medications Current Medications Ondansetron HCl (Zofran Inj) 4 mg Q6H PRN IV NAUSEA AND/OR VOMITING; Start 05/01 at 20:30 Acetaminophen (Tylenol Tab) 650 mg Q6H PRN PO PAIN LEVEL 1-3 OR FEVER Last administered on 05/06/16 08:23; Admin Dose 650 MG; Start 05/01/16 at 20:30 Acetaminophen (Tylenol Supp) 650 mg Q6H PRN [place] PAIN LEVEL 1-3 OR FEVER; Start 05/01/16 at 20:30 Docusate Sodium (Colace) 100 mg Q12H PRN PO CONSTIPATION Last administered on 13:14; Admin Dose 100 MG; Start 05/01/16 at 20:30 Magnesium Hydroxide (Milk Of Mag) 30 ml DAILY PRN PO CONSTIPATION Last administered on 05/03/16 11:52; Admin Dose 30 ML; Start 05/01/16 at 20:30 Bisacodyl (Dulcolax) 5 mg DAILY PRN PO CONSTIPATION; Start 05/01/16 at 20:30 Bisacodyl (Dulcolax Supp) 10 mg DAILY PRN [place] CONSTIPATION; Start 05/01/16 at 20: 30 Sodium Biphosphate/ Sodium Phosphate (Fleet Enema) 133 ml DAILY PRN [place] CONSTIPATION; Start 05/01/16 at 20:30 Pantoprazole (Protonix Iv) 40 mg DAILY@06 IV Last administered on 05/25/16 05: 48; Admin Dose 40 MG; Start 05/02/16 at 06:00 Tamsulosin HCl (Flomax) 0.4 mg HS PO Last administered on 05/25/16 20:37; Admin Dose 0.4 MG; Start 05/03/16 at 21:00 Aspirin (Aspirin) 325 mg DAILY PO Last administered on 05/09/16 08:08; Admin Dose 325 MG; Start 05/04/16 at 09:00; Status Future Hold Lorazepam (Ativan) 2 mg Q2 PRN IV AGITATION Last administered on 05/09/16 12: 35; Admin Dose 2 MG; Start 05/05/16 at 18:00 Morphine Sulfate (morphine) 2 mg Q2H PRN IV PAIN Last administered on 07:55; Admin Dose 2 MG; Start 05/05/16 at 18:00 IV Flush 10 ml 10 ml PRN PRN IV FLUSH LINE; Start 05/06/16 at 13:00 Norepinephrine/ Dextrose (Levophed/D5W) 500 ml @ 1.87 mls/hr TITRATE IV Last administered on 05/23/16 19:00; Admin Dose 1.87 MLS/HR; Start 05/20/16 at 12:00 Potassium Chloride 20 meq 20 meq DAILY NGT Last administered on 05/25/16 09:25 ; Admin Dose 20 MEQ; Start 05/20/16 at 09:30 Piperacillin Sod/ Tazobactam Sod (Zosyn 3.375gm/ 100 ml (Pmx)) 100 ml @ 200 mls /hr Q8 IVPB Last administered on 05/25/16 21:30; Admin Dose 200 MLS/HR; Start 05/20/16 at 14:00 Fluconazole (Diflucan) 100 mg DAILY PO Last administered on 05/25/16 09:25; Admin Dose 100 MG; Start 05/23/16 at 12:30 JO ANN KING MD May 25, 2016 21:43
[2016-05-26] VITALS (112 sets, daily range): BP systolic 66–145; BP diastolic 34–119; PULSE 60–121; RESP 17–30
[2016-05-26 04:56] LABS: ADD SCAN DIFF NO
[2016-05-26 05:00] LABS: BASOPHILS % 0.2 % (0.0-2.0); EOSINOPHILS # 0.2 10^3/ul (0.0-0.5); EOSINOPHILS % 1.9 % (0.0-7.0); HEMATOCRIT 24.1 % (42.0-52.0); HEMOGLOBIN 7.8 g/dl (14.0-18.0); LYMPHOCYTES # 1.3 10^3/ul (0.8-2.9); MEAN CORPUSCULAR HEMOGLOBIN 30.2 pg (29.0-33.0); MEAN CORPUSCULAR HGB CONC 32.4 g/dl (32.0-37.0); MEAN CORPUSCULAR VOLUME 93.4 fl (82.0-101.0); MEAN PLATELET VOLUME 11.1 fl (7.4-10.4); MONOCYTE # 0.6 10^3/ul (0.3-0.9); MONOCYTES % 5.6 % (0.0-11.0); NEUTROPHIL # 7.9 10^3/ul (1.6-7.5); NEUTROPHILS % 78.2 % (39.0-77.0); PLATELET COUNT 164 10^3/UL (140-415); RED BLOOD COUNT 2.58 10^6/ul (4.70-6.10); RED CELL DISTRIBUTION WIDTH 14.8 % (11.5-14.5); WHITE BLOOD COUNT 10.1 10^3/ul (4.8-10.8)
[2016-05-26 05:10] LABS: INR 1.19; PROTIME 15.2 Sec (12.2-14.2); PT RATIO 1.2
[2016-05-26 05:11] LABS: PARTIAL THROMBOPLASTIN TIME 39.8 Sec (25.0-35.0)
[2016-05-26 05:21] LABS: POTASSIUM 3.8 mmol/L (3.5-5.1)
[2016-05-26 05:23] LABS: CREATININE 0.96 mg/dl (0.61-1.24)
[2016-05-26 05:24] LABS: CALCIUM 7.7 mg/dl (8.4-10.2)
[2016-05-26] MEDS: PIPER-TAZO 3.375 GM IV (PMX) 100 ML IVPB SCH ×3 (05:51→22:08)
[2016-05-26] MEDS: PANTOPRAZOLE 40 MG INJ IV SCH (05:51)
[2016-05-26] MEDS: FLUCONAZOLE 100 MG TAB PO SCH (08:02)
[2016-05-26] MEDS: POTASSIUM CHLORIDE 20 MEQ POWDER FOR ORAL SOLN NGT SCH (08:02)
--- NOTE | 2016-05-26 08:19 | CONS ---
Date/Time of Note Date/Time of Note DATE: 05/26/16 TIME: 08:16 Assessment/Plan Assessment/Plan Additional Assessment/Plan Data settings; AC of 20, tidal volume 500, PEEP of 5, 30% FiO2. Assessment and recommendations; 1. Patient initially admitted with bilateral pneumonia with respiratory failure was successfully extubated and transferred to medical floor with the patient had likely another aspiration event requiring reintubation. 2. Underlying COPD. 3. History of dementia. 4. History of cardiac arrhythmia. 5. Status post G-tube placement. 6. Recurrent pneumonia and respiratory failure. 7. Anemia. Continue current treatment. Continue current supportive care , ventilator setting. Patient will be transfused 1 unit of packed RBC today and is scheduled for tracheostomy. Overall prognosis remains guarded. Consultation Date/Type/Reason Admit Date/Time May 01, 2016 at 20:18 Initial Consult Date 05/05/16 Type of Consultation: Pulmonary/critical care Referring Provider: HOLLI LINDER MD 24 HR Interval Summary Free Text/Dictation Patient condition remains critical. Patient still requiring very low-dose Levophed for blood pressure maintenance. He is scheduled for tracheostomy today. General exam; elderly male, orally intubated, somewhat arousable. Currently in no distress. Exam/Review of Systems Vital Signs Vitals Vital Signs Date Time Temp Pulse Resp B/P Pulse Ox O2 Delivery O2 Flow Rate FiO2 05/26/16 06:00 72 20 96/51 99 Mechanical Ventilator 05/26/16 05:20 30 05/26/16 04:00 98.7 Intake and Output 05/25/16 05/25/16 05/26/16 15:00 23:00 07:00 Intake Total 1275 ml 705 ml 153.87 ml Output Total 475 ml 425 ml 560 ml Balance 800 ml 280 ml -406.13 ml Exam HEENT exam is; supple neck, no JVD. No lymphadenopathy. Midline trachea. No thyromegaly. Patient bilateral corneal opacities. He is edentulous. Orally intubated. No neck masses. Chest examination; diminished but clear vessel bilaterally. S1-S2 audible, no murmurs. Abdomen examination; soft, G-tube in place. No organomegaly. Bowel sounds are audible. Extremity examination; no peripheral edema. Patient has multiple ecchymosis involving all 4 extremities. Pulses 1+ bilaterally. 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 Results Result Diagram: 05/26/16 0445 05/26/16 0445 Results 24 hrs Laboratory Tests Test 05/26/16 04:45 White Blood Count 10.1 Red Blood Count 2.58 L Hemoglobin 7.8 L Hematocrit 24.1 L Mean Corpuscular Volume 93.4 Mean Corpuscular Hemoglobin 30.2 Mean Corpuscular Hemoglobin Concent 32.4 Red Cell Distribution Width 14.8 H Platelet Count 164 Mean Platelet Volume 11.1 H Neutrophils % 78.2 H Lymphocytes % 13.0 L Monocytes % 5.6 Eosinophils % 1.9 Basophils % 0.2 Nucleated Red Blood Cells % 0.0 Neutrophils # 7.9 H Lymphocytes # 1.3 Monocytes # 0.6 Eosinophils # 0.2 Basophils # 0.0 Nucleated Red Blood Cells # 0.0 Prothrombin Time 15.2 H Prothrombin Time Ratio 1.2 INR International Normalized Ratio 1.19 Activated Partial Thromboplast Time 39.8 H Sodium Level 135 Potassium Level 3.8 Chloride Level 106 Carbon Dioxide Level 25 Anion Gap 8 Blood Urea Nitrogen 18 Creatinine 0.96 Glucose Level 84 # Calcium Level 7.7 L Medications Medications Current Medications Ondansetron HCl (Zofran Inj) 4 mg Q6H PRN IV NAUSEA AND/OR VOMITING; Start 05/01 at 20:30 Acetaminophen (Tylenol Tab) 650 mg Q6H PRN PO PAIN LEVEL 1-3 OR FEVER Last administered on 05/06/16 08:23; Admin Dose 650 MG; Start 05/01/16 at 20:30 Acetaminophen (Tylenol Supp) 650 mg Q6H PRN [place] PAIN LEVEL 1-3 OR FEVER; Start 05/01/16 at 20:30 Docusate Sodium (Colace) 100 mg Q12H PRN PO CONSTIPATION Last administered on 13:14; Admin Dose 100 MG; Start 05/01/16 at 20:30 Magnesium Hydroxide (Milk Of Mag) 30 ml DAILY PRN PO CONSTIPATION Last administered on 05/03/16 11:52; Admin Dose 30 ML; Start 05/01/16 at 20:30 Bisacodyl (Dulcolax) 5 mg DAILY PRN PO CONSTIPATION; Start 05/01/16 at 20:30 Bisacodyl (Dulcolax Supp) 10 mg DAILY PRN [place] CONSTIPATION; Start 05/01/16 at 20: 30 Sodium Biphosphate/ Sodium Phosphate (Fleet Enema) 133 ml DAILY PRN [place] CONSTIPATION; Start 05/01/16 at 20:30 Pantoprazole (Protonix Iv) 40 mg DAILY@06 IV Last administered on 05/26/16 05: 51; Admin Dose 40 MG; Start 05/02/16 at 06:00 Tamsulosin HCl (Flomax) 0.4 mg HS PO Last administered on 05/25/16 20:37; Admin Dose 0.4 MG; Start 05/03/16 at 21:00 Aspirin (Aspirin) 325 mg DAILY PO Last administered on 05/09/16 08:08; Admin Dose 325 MG; Start 05/04/16 at 09:00; Status Future Hold Lorazepam (Ativan) 2 mg Q2 PRN IV AGITATION Last administered on 05/09/16 12: 35; Admin Dose 2 MG; Start 05/05/16 at 18:00 Morphine Sulfate (morphine) 2 mg Q2H PRN IV PAIN Last administered on 07:55; Admin Dose 2 MG; Start 05/05/16 at 18:00 IV Flush 10 ml 10 ml PRN PRN IV FLUSH LINE; Start 05/06/16 at 13:00 Norepinephrine/ Dextrose (Levophed/D5W) 500 ml @ 1.87 mls/hr TITRATE IV Last administered on 05/23/16 19:00; Admin Dose 1.87 MLS/HR; Start 05/20/16 at 12:00 Potassium Chloride 20 meq 20 meq DAILY NGT Last administered on 05/26/16 08:02 ; Admin Dose 20 MEQ; Start 05/20/16 at 09:30 Piperacillin Sod/ Tazobactam Sod (Zosyn 3.375gm/ 100 ml (Pmx)) 100 ml @ 200 mls /hr Q8 IVPB Last administered on 05/26/16 05:51; Admin Dose 200 MLS/HR; Start 05/20/16 at 14:00 Fluconazole (Diflucan) 100 mg DAILY PO Last administered on 05/26/16 08:02; Admin Dose 100 MG; Start 05/23/16 at 12:30 GERALDINE CUNNINGHAM May 26, 2016 08:19
--- NOTE | 2016-05-26 10:45 | CONS ---
Date/Time of Note Date/Time of Note DATE: 05/26/16 TIME: 10:41 Assessment/Plan Assessment/Plan Chief Complaint/Hosp Course IMPRESSION: 1. Respiratory failure s/p re-intubation 2. 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 negative troponin x 3 this admit. s/p lexsican LVEF 22%/no ischemia/prior [place] 3. 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 Possible cardiac arrhythmia-AFL/AF currently rate controlled 5. History of asthma/chronic obstructive pulmonary disease. 6. Glaucoma. 7. History of bradycardia. 8. Hypotension-currrently ogg levo but with low BP.marginal BP 9. Leukocytosis. 10. Altered mental state. 11. Fevers 12.ARF-improved 14. Anemia-worsening getting transfusion PRBC's Recc: -Now in ICU -Maintain Tele monitoring -Follow BP closely with possible need to restart pressors -Will hold on re-inititation of lovenox given recent acute drop in Hgb with patient ow receiving transfusion -Continue abx's and f/u cx data -pnding trach today Problems: Consultation Date/Type/Reason Admit Date/Time May 01, 2016 at 20:18 Initial Consult Date 05/02/16 Type of Consultation: Cardiology Reason for Consultation Hypotension/cardiomyopathy/CHF Referring Provider: HOLLI LINDER MD Exam/Review of Systems Vital Signs Vitals Vital Signs Date Time Temp Pulse Resp B/P Pulse Ox O2 Delivery O2 Flow Rate FiO2 05/26/16 10:30 98.9 98 25 105/46 100 05/26/16 10:00 Mechanical Ventilator 05/26/16 08:30 30 Intake and Output 05/25/16 05/25/16 05/26/16 15:00 23:00 07:00 Intake Total 1275 ml 705 ml 153.87 ml Output Total 475 ml 425 ml 670 ml Balance 800 ml 280 ml -516.13 ml Exam Review of Systems: CONSTITUTIONAL: No fevers, chills. PULMONARY: intubated CARDIOVASCULAR: No obvious chest pain/palpitations GASTROINTESTINAL: No nausea/vomiting. GENITOURINARY: No hematuria/dysuria. MUSCULOSKELETAL: No obvious myagias/arthalgias. PSYCHIATRIC: The patient denies depression. NEUROLOGIC: Encephlopathy Constitutional: alert Psych: no complaints Head: normocephalic ENMT: mucosa pink and moist Neck: jvd, supple Respiratory: diminished breath sounds (at bases/B) Cardiovascular: irregular rhythm Gastrointestinal: non-tender Musculoskeletal: muscle tone (normal) Extremities: edema (trace/B) Neurological: lethargic Results Result Diagram: 05/26/1644405/26/16444 Results 24 hrs Laboratory Tests Test 05/26/16 04:45 White Blood Count 10.1 Red Blood Count 2.58 L Hemoglobin 7.8 L Hematocrit 24.1 L Mean Corpuscular Volume 93.4 Mean Corpuscular Hemoglobin 30.2 Mean Corpuscular Hemoglobin Concent 32.4 Red Cell Distribution Width 14.8 H Platelet Count 164 Mean Platelet Volume 11.1 H Neutrophils % 78.2 H Lymphocytes % 13.0 L Monocytes % 5.6 Eosinophils % 1.9 Basophils % 0.2 Nucleated Red Blood Cells % 0.0 Neutrophils # 7.9 H Lymphocytes # 1.3 Monocytes # 0.6 Eosinophils # 0.2 Basophils # 0.0 Nucleated Red Blood Cells # 0.0 Prothrombin Time 15.2 H Prothrombin Time Ratio 1.2 INR International Normalized Ratio 1.19 Activated Partial Thromboplast Time 39.8 H Sodium Level 135 Potassium Level 3.8 Chloride Level 106 Carbon Dioxide Level 25 Anion Gap 8 Blood Urea Nitrogen 18 Creatinine 0.96 Glucose Level 84 # Calcium Level 7.7 L Medications Medications Current Medications Ondansetron HCl (Zofran Inj) 4 mg Q6H PRN IV NAUSEA AND/OR VOMITING; Start 05/01 at 20:30 Acetaminophen (Tylenol Tab) 650 mg Q6H PRN PO PAIN LEVEL 1-3 OR FEVER Last administered on 05/06/16 08:23; Admin Dose 650 MG; Start 05/01/16 at 20:30 Acetaminophen (Tylenol Supp) 650 mg Q6H PRN [place] PAIN LEVEL 1-3 OR FEVER; Start 05/01/16 at 20:30 Docusate Sodium (Colace) 100 mg Q12H PRN PO CONSTIPATION Last administered on 13:14; Admin Dose 100 MG; Start 05/01/16 at 20:30 Magnesium Hydroxide (Milk Of Mag) 30 ml DAILY PRN PO CONSTIPATION Last administered on 05/03/16 11:52; Admin Dose 30 ML; Start 05/01/16 at 20:30 Bisacodyl (Dulcolax) 5 mg DAILY PRN PO CONSTIPATION; Start 05/01/16 at 20:30 Bisacodyl (Dulcolax Supp) 10 mg DAILY PRN [place] CONSTIPATION; Start 05/01/16 at 20: 30 Sodium Biphosphate/ Sodium Phosphate (Fleet Enema) 133 ml DAILY PRN [place] CONSTIPATION; Start 05/01/16 at 20:30 Pantoprazole (Protonix Iv) 40 mg DAILY@06 IV Last administered on 05/26/16 05: 51; Admin Dose 40 MG; Start 05/02/16 at 06:00 Tamsulosin HCl (Flomax) 0.4 mg HS PO Last administered on 05/25/16 20:37; Admin Dose 0.4 MG; Start 05/03/16 at 21:00 Aspirin (Aspirin) 325 mg DAILY PO Last administered on 05/09/16 08:08; Admin Dose 325 MG; Start 05/04/16 at 09:00; Status Future Hold Lorazepam (Ativan) 2 mg Q2 PRN IV AGITATION Last administered on 05/09/16 12: 35; Admin Dose 2 MG; Start 05/05/16 at 18:00 Morphine Sulfate (morphine) 2 mg Q2H PRN IV PAIN Last administered on 07:55; Admin Dose 2 MG; Start 05/05/16 at 18:00 IV Flush 10 ml 10 ml PRN PRN IV FLUSH LINE; Start 05/06/16 at 13:00 Norepinephrine/ Dextrose (Levophed/D5W) 500 ml @ 1.87 mls/hr TITRATE IV Last administered on 05/26/16 07:30; Admin Dose 1.87 MLS/HR; Start 05/20/16 at 12:00 Potassium Chloride 20 meq 20 meq DAILY NGT Last administered on 05/26/16 08:02 ; Admin Dose 20 MEQ; Start 05/20/16 at 09:30 Piperacillin Sod/ Tazobactam Sod (Zosyn 3.375gm/ 100 ml (Pmx)) 100 ml @ 200 mls /hr Q8 IVPB Last administered on 05/26/16 05:51; Admin Dose 200 MLS/HR; Start 05/20/16 at 14:00 Fluconazole (Diflucan) 100 mg DAILY PO Last administered on 3/31/17at 08:02; Admin Dose 100 MG; Start 05/23/16 at 12:30 JAYA GORE May 26, 2016 10:45
[2016-05-26] MEDS ORDERED: ETOMIDATE 20 MG INJ ONE (11:13)
[2016-05-26] MEDS ORDERED: FENTAnyl 50 MCG/ML VIAL ONE ×2 (11:13→11:14)
[2016-05-26] MEDS ORDERED: PHENYLephrine (100 MCG/ML) 5ML SYG ONE (11:14)
[2016-05-26] MEDS ORDERED: LIDOCAINE 2%/EPI (MDV) 20ML INJ ONE (11:35)
[2016-05-26] MEDS ORDERED: LIDOCAINE 1%/EPI (MDV) 20 ML INJ ONE (11:47)
[2016-05-26] MEDS ORDERED: POTASSIUM CHLORIDE (SR) 20 MEQ TAB PO STA (12:18)
--- NOTE | 2016-05-26 12:24 | PN ---
Date/Time of Note Date/Time of Note DATE: 05/26/16 TIME: 12:20 Assessment/Plan VTE Prophylaxis VTE Prophylaxis Intervention: SCD's Lines/Catheters IV Catheter Type (from Nrs): PICC Line Central line still needed: Yes Urinary Cath still in place: Yes Reason Cath still needed: urinary retention Assessment/Plan Chief Complaint/Hosp Course 1. S/p tracheostomy, still under anesthesia 2. Renal failure 3. Respiratory failure on vent 4. anxiety 5. PACEMAKER HX 6 low ef 7 leucocytosis 8. SEPSIS 11 s/p peg Problems: Assessment/Plan 1. Continue ICU 2. Continue vent support and a/biotics 3. Continue levophed support 4 mcg/min Subjective 24 Hr Interval Summary Subjective hx not possible: other (recent anesthesia) Exam/Review of Systems Vital Signs Vitals Vital Signs Date Time Temp Pulse Resp B/P Pulse Ox O2 Delivery O2 Flow Rate FiO2 05/26/16 12:15 99.2 05/26/16 10:30 98 25 105/46 100 05/26/16 10:00 Mechanical Ventilator 05/26/16 08:30 30 Intake and Output 05/25/16 05/25/16 05/26/16 15:00 23:00 07:00 Intake Total 1275 ml 705 ml 153.87 ml Output Total 475 ml 425 ml 670 ml Balance 800 ml 280 ml -516.13 ml Exam Constitutional: other (lethargic) Head: normocephalic Eyes: nl conjunctiva ENMT: other (tracheostomy midline) Respiratory: diminished breath sounds Cardiovascular: regular rate and rhythm Gastrointestinal: soft Extremities: normal pulses Results Result Diagram: 05/26/16 0445 05/26/16 0445 Results 24 hrs Laboratory Tests Test 05/26/16 04:45 White Blood Count 10.1 Red Blood Count 2.58 L Hemoglobin 7.8 L Hematocrit 24.1 L Mean Corpuscular Volume 93.4 Mean Corpuscular Hemoglobin 30.2 Mean Corpuscular Hemoglobin Concent 32.4 Red Cell Distribution Width 14.8 H Platelet Count 164 Mean Platelet Volume 11.1 H Neutrophils % 78.2 H Lymphocytes % 13.0 L Monocytes % 5.6 Eosinophils % 1.9 Basophils % 0.2 Nucleated Red Blood Cells % 0.0 Neutrophils # 7.9 H Lymphocytes # 1.3 Monocytes # 0.6 Eosinophils # 0.2 Basophils # 0.0 Nucleated Red Blood Cells # 0.0 Prothrombin Time 15.2 H Prothrombin Time Ratio 1.2 INR International Normalized Ratio 1.19 Activated Partial Thromboplast Time 39.8 H Sodium Level 135 Potassium Level 3.8 Chloride Level 106 Carbon Dioxide Level 25 Anion Gap 8 Blood Urea Nitrogen 18 Creatinine 0.96 Glucose Level 84 # Calcium Level 7.7 L Medications Medications Current Medications Ondansetron HCl (Zofran Inj) 4 mg Q6H PRN IV NAUSEA AND/OR VOMITING; Start 05/01 at 20:30 Acetaminophen (Tylenol Tab) 650 mg Q6H PRN PO PAIN LEVEL 1-3 OR FEVER Last administered on 05/06/16 08:23; Admin Dose 650 MG; Start 05/01/16 at 20:30 Acetaminophen (Tylenol Supp) 650 mg Q6H PRN [place] PAIN LEVEL 1-3 OR FEVER; Start 05/01/16 at 20:30 Docusate Sodium (Colace) 100 mg Q12H PRN PO CONSTIPATION Last administered on 13:14; Admin Dose 100 MG; Start 05/01/16 at 20:30 Magnesium Hydroxide (Milk Of Mag) 30 ml DAILY PRN PO CONSTIPATION Last administered on 05/03/16 11:52; Admin Dose 30 ML; Start 05/01/16 at 20:30 Bisacodyl (Dulcolax) 5 mg DAILY PRN PO CONSTIPATION; Start 05/01/16 at 20:30 Bisacodyl (Dulcolax Supp) 10 mg DAILY PRN MD CONSTIPATION; Start 05/01/16 at 20: 30 Sodium Biphosphate/ Sodium Phosphate (Fleet Enema) 133 ml DAILY PRN MD CONSTIPATION; Start 05/01/16 at 20:30 Pantoprazole (Protonix Iv) 40 mg DAILY@06 IV Last administered on 05/26/16 05: 51; Admin Dose 40 MG; Start 05/02/16 at 06:00 Tamsulosin HCl (Flomax) 0.4 mg HS PO Last administered on 05/25/16 20:37; Admin Dose 0.4 MG; Start 05/03/16 at 21:00 Aspirin (Aspirin) 325 mg DAILY PO Last administered on 05/09/16 08:08; Admin Dose 325 MG; Start 05/04/16 at 09:00; Status Future Hold Lorazepam (Ativan) 2 mg Q2 PRN IV AGITATION Last administered on 05/09/16 12: 35; Admin Dose 2 MG; Start 05/05/16 at 18:00 Morphine Sulfate (morphine) 2 mg Q2H PRN IV PAIN Last administered on 07:55; Admin Dose 2 MG; Start 05/05/16 at 18:00 IV Flush 10 ml 10 ml PRN PRN IV FLUSH LINE; Start 05/06/16 at 13:00 Norepinephrine/ Dextrose (Levophed/D5W) 500 ml @ 1.87 mls/hr TITRATE IV Last administered on 05/26/16 07:30; Admin Dose 1.87 MLS/HR; Start 05/20/16 at 12:00 Potassium Chloride 20 meq 20 meq DAILY NGT Last administered on 05/26/16 08:02 ; Admin Dose 20 MEQ; Start 05/20/16 at 09:30 Piperacillin Sod/ Tazobactam Sod (Zosyn 3.375gm/ 100 ml (Pmx)) 100 ml @ 200 mls /hr Q8 IVPB Last administered on 05/26/16 05:51; Admin Dose 200 MLS/HR; Start 05/20/16 at 14:00 Fluconazole (Diflucan) 100 mg DAILY PO Last administered on 05/26/16 08:02; Admin Dose 100 MG; Start 05/23/16 at 12:30 WANG BELL May 26, 2016 12:24
[2016-05-26] MEDS ORDERED: MIDAZOLAM 1 MG/ML 2 ML INJ IV PRN (13:00)
[2016-05-26] MEDS ORDERED: EPHEDrine SULFATE 50 MG/5 ML SYG IV PRN (13:00)
[2016-05-26] MEDS ORDERED: FENTAnyl 50 MCG/ML VIAL IV PRN ×3 (13:00)
[2016-05-26] MEDS ORDERED: POTASSIUM CHLORIDE 20 MEQ POWDER FOR ORAL SOLN PEG ONE (13:30)
--- NOTE | 2016-05-26 14:51 | PN ---
DATE: 05/26/2016 SUBJECTIVE: No acute changes. The patient is lying comfortably in bed. He is arousable. No fever s. He is in no distress. VITAL SIGNS: Temperature 99.2, pulse 91, respirations 20, blood pressure 91/57, saturation 98 on 30 % FIO2. LABORATORY DATA: WBC 10.1, H and H 7.8 and 24.1, platelets 164, neutrophils 78.2. BUN 18, creatini ne 0.96. ANTIMICROBIALS: 1. Fluconazole. 2. Zosyn. INDWELLINGS: Endotracheal tube, PEG, Alfonso, PICC line. PHYSICAL EXAMINATION: GENERAL: This is a chronically ill-appearing, elderly man who is in no distress. HEENT: Head atraumatic, normocephalic. Sclerae anicteric. Buccal mucosa dry. NECK: Supple, trachea midline. CHEST: Rise symmetrical. Breath sounds diminished to bases. HEART: S1, S2. ABDOMEN: Soft. Bowel sounds present. EXTREMITIES: Without cyanosis. ASSESSMENT: 1. Sepsis. 2. Acute respiratory failure. 3. Pneumonia, possibly aspiration type. 4. Coronary artery disease with a history of permanent pacemaker. 5. Dysphagia, status post percutaneous endoscopic gastrostomy. PLAN: The patient remains unchanged. Continue present care. Complete antibiotics. Pending trach placement. Dictated By: JOSE G CUNNINGHAM FLEXIBLE NANNY for RASHIDA HUSSEIN/TRACY Conf#: [id number] DID#: [id number]
[2016-05-26] MEDS: ALTEPLASE (CATHFLO) 2 MG INJ CATHETER PRN ×2 (15:51→15:54)
--- NOTE | 2016-05-26 19:19 | CONS ---
Date/Time of Note Date/Time of Note DATE: 05/26/16 TIME: 19:18 Assessment/Plan Assessment/Plan Additional Assessment/Plan Additional Assessment/Plan IMPRESSION: 1. Aspiration pneumonia. 2. Leukocytosis. 3. Status post pacemaker insertion. 4. Benign prostatic hypertrophy. 5. Legally blind. 6. Status post extubation. 7. History of bronchial asthma. 8. 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 dysphagia ,s/p PEG,tolerating feeding 11.respiratory failure on vent 12. Status post trach Plan continue present care Patient is tolerating feeding at 50 cc/h Consultation Date/Type/Reason Admit Date/Time May 01, 2016 at 20:18 Initial Consult Date 05/05/16 Type of Consultation: Cardiology Referring Provider: HOLLI LINDER MD 24 HR Interval Summary Subjective hx not possible: pt non-verbal, pt critical Constitutional: improved, no complaints Exam/Review of Systems Vital Signs Vitals Vital Signs Date Time Temp Pulse Resp B/P Pulse Ox O2 Delivery O2 Flow Rate FiO2 05/26/16 18:45 101 23 86/48 100 05/26/16 18:00 Mechanical Ventilator 05/26/16 16:30 30 05/26/16 16:00 98.9 Intake and Output 05/25/16 05/25/16 05/26/16 15:00 23:00 07:00 Intake Total 1275 ml 705 ml 153.87 ml Output Total 475 ml 425 ml 670 ml Balance 800 ml 280 ml -516.13 ml Exam Constitutional: alert, oriented, well developed Psych: nl mood/affect, no complaints Head: atraumatic, normocephalic Eyes: EOMI, PERRL, nl conjunctiva, nl lids, nl sclera ENMT: nl external ears & nose, nl lips & teeth, nl nasal mucosa & septum Neck: non-tender, supple Respiratory: clear to auscultation, normal air movement Cardiovascular: nl pulses, regular rate and rhythm Gastrointestinal: nl liver, spleen, non-tender, soft Musculoskeletal: nl extremities to inspection, nl gait and stance Extremities: normal pulses Neurological: HE[employer] INFORMATION MANAGERS II-XII intact, nl mental status, nl speech, nl strength Skin: nl turgor, No rash or lesions Lymph: nl lymph nodes Results Result Diagram: 05/26/165 05/26/16444 Results 24 hrs Laboratory Tests Test 05/26/16 04:45 White Blood Count 10.1 Red Blood Count 2.58 L Hemoglobin 7.8 L Hematocrit 24.1 L Mean Corpuscular Volume 93.4 Mean Corpuscular Hemoglobin 30.2 Mean Corpuscular Hemoglobin Concent 32.4 Red Cell Distribution Width 14.8 H Platelet Count 164 Mean Platelet Volume 11.1 H Neutrophils % 78.2 H Lymphocytes % 13.0 L Monocytes % 5.6 Eosinophils % 1.9 Basophils % 0.2 Nucleated Red Blood Cells % 0.0 Neutrophils # 7.9 H Lymphocytes # 1.3 Monocytes # 0.6 Eosinophils # 0.2 Basophils # 0.0 Nucleated Red Blood Cells # 0.0 Prothrombin Time 15.2 H Prothrombin Time Ratio 1.2 INR International Normalized Ratio 1.19 Activated Partial Thromboplast Time 39.8 H Sodium Level 135 Potassium Level 3.8 Chloride Level 106 Carbon Dioxide Level 25 Anion Gap 8 Blood Urea Nitrogen 18 Creatinine 0.96 Glucose Level 84 # Calcium Level 7.7 L Medications Medications Current Medications Ondansetron HCl (Zofran Inj) 4 mg Q6H PRN IV NAUSEA AND/OR VOMITING; Start 05/01 at 20:30 Acetaminophen (Tylenol Tab) 650 mg Q6H PRN PO PAIN LEVEL 1-3 OR FEVER Last administered on 05/06/16 08:23; Admin Dose 650 MG; Start 05/01/16 at 20:30 Acetaminophen (Tylenol Supp) 650 mg Q6H PRN [place] PAIN LEVEL 1-3 OR FEVER; Start 05/01/16 at 20:30 Docusate Sodium (Colace) 100 mg Q12H PRN PO CONSTIPATION Last administered on 13:14; Admin Dose 100 MG; Start 05/01/16 at 20:30 Magnesium Hydroxide (Milk Of Mag) 30 ml DAILY PRN PO CONSTIPATION Last administered on 05/03/16 11:52; Admin Dose 30 ML; Start 05/01/16 at 20:30 Bisacodyl (Dulcolax) 5 mg DAILY PRN PO CONSTIPATION; Start 05/01/16 at 20:30 Bisacodyl (Dulcolax Supp) 10 mg DAILY PRN [place] CONSTIPATION; Start 05/01/16 at 20: 30 Sodium Biphosphate/ Sodium Phosphate (Fleet Enema) 133 ml DAILY PRN [place] CONSTIPATION; Start 05/01/16 at 20:30 Pantoprazole (Protonix Iv) 40 mg DAILY@06 IV Last administered on 05/26/16 05: 51; Admin Dose 40 MG; Start 05/02/16 at 06:00 Tamsulosin HCl (Flomax) 0.4 mg HS PO Last administered on 05/25/16 20:37; Admin Dose 0.4 MG; Start 05/03/16 at 21:00 Aspirin (Aspirin) 325 mg DAILY PO Last administered on 05/09/16 08:08; Admin Dose 325 MG; Start 05/04/16 at 09:00; Status Future Hold Lorazepam (Ativan) 2 mg Q2 PRN IV AGITATION Last administered on 05/09/16 12: 35; Admin Dose 2 MG; Start 05/05/16 at 18:00 Morphine Sulfate (morphine) 2 mg Q2H PRN IV PAIN Last administered on 07:55; Admin Dose 2 MG; Start 05/05/16 at 18:00 IV Flush 10 ml 10 ml PRN PRN IV FLUSH LINE; Start 05/06/16 at 13:00 Norepinephrine/ Dextrose (Levophed/D5W) 500 ml @ 1.87 mls/hr TITRATE IV Last administered on 05/26/16 18:06; Admin Dose 1.87 MLS/HR; Start 05/20/16 at 12:00 Potassium Chloride 20 meq 20 meq DAILY NGT Last administered on 05/26/16 08:02 ; Admin Dose 20 MEQ; Start 05/20/16 at 09:30 Piperacillin Sod/ Tazobactam Sod (Zosyn 3.375gm/ 100 ml (Pmx)) 100 ml @ 200 mls /hr Q8 IVPB Last administered on 05/26/16 14:10; Admin Dose 200 MLS/HR; Start 05/20/16 at 14:00 Fluconazole (Diflucan) 100 mg DAILY PO Last administered on 05/26/16 08:02; Admin Dose 100 MG; Start 05/23/16 at 12:30 NEVAEH WOODSON MD May 26, 2016 19:18
[2016-05-26] MEDS: DIGOXIN 500 MCG INJ IV SCH (20:12)
[2016-05-26] MEDS: TAMSULOSIN (SR) 0.4 MG CAP PO SCH (20:12)
[2016-05-26] MEDS: LORAZEPAM 2 MG INJ IV PRN (20:47)
[2016-05-27] VITALS (102 sets, daily range): BP systolic 72–140; BP diastolic 41–98; PULSE 74–99; RESP 12–35
[2016-05-27] MEDS: DIGOXIN 500 MCG INJ IV SCH (00:11)
--- NOTE | 2016-05-27 02:03 | OPR ---
DATE OF OPERATION: PREOPERATIVE DIAGNOSIS: Respiratory failure. POSTOPERATIVE DIAGNOSIS: Respiratory failure. PROCEDURE: Tracheostomy. SURGEON: Jo Ann Fam MD ANESTHESIA: Local. INFORMED CONSENT: Risks, benefits, complications, alternative therapies explained to the patient an d the family, consent obtained. OPERATIVE TECHNIQUE: The patient was placed in supine position, prepped and draped in the usual deborah rile fashion, 1% lidocaine was used throughout the operation for local anesthesia. I made a 2 cm in cision 1 fingerbreadth superior to the sternal notch. Incision was taken down to subcutaneous tissu e which was then opened using Metzenbaum scissors. Access was gained into the trachea. Guidewire w as advanced through without any difficulty. Subcutaneous tissues dilated using progressively larger dilators. Endotracheal tube removed, 8 cuffed tube was placed into the trachea, secured to the ski n using 4-0 nylon sutures and a trach tie. Adequate ventilation was obtained. The patient tolerate d procedure well. Dictated By: JO ANN FAM MD FM/NTS Conf#: [id number] DID#: [id number] CC: HOLLI LINDER MD; NEVAEH WOODSON MD;*End*
[2016-05-27 04:35] LABS: ADD SCAN DIFF NO
[2016-05-27 04:41] LABS: BASOPHILS % 0.2 % (0.0-2.0); EOSINOPHILS # 0.2 10^3/ul (0.0-0.5); EOSINOPHILS % 1.4 % (0.0-7.0); HEMATOCRIT 29.1 % (42.0-52.0); HEMOGLOBIN 9.3 g/dl (14.0-18.0); LYMPHOCYTES # 1.9 10^3/ul (0.8-2.9); LYMPHOCYTES % 16.2 % (15.0-51.0); MEAN CORPUSCULAR HEMOGLOBIN 29.4 pg (29.0-33.0); MEAN CORPUSCULAR VOLUME 92.1 fl (82.0-101.0); MEAN PLATELET VOLUME 11.6 fl (7.4-10.4); MONOCYTE # 0.9 10^3/ul (0.3-0.9); MONOCYTES % 7.2 % (0.0-11.0); NEUTROPHIL # 8.8 10^3/ul (1.6-7.5); NEUTROPHILS % 73.7 % (39.0-77.0); PLATELET COUNT 215 10^3/UL (140-415); RED BLOOD COUNT 3.16 10^6/ul (4.70-6.10); WHITE BLOOD COUNT 11.9 10^3/ul (4.8-10.8)
[2016-05-27 04:53] LABS: POTASSIUM 4.1 mmol/L (3.5-5.1)
[2016-05-27 04:55] LABS: CREATININE 1.1 mg/dl (0.61-1.24)
[2016-05-27 04:56] LABS: CALCIUM 7.7 mg/dl (8.4-10.2)
[2016-05-27] MEDS: PANTOPRAZOLE 40 MG INJ IV SCH (06:26)
[2016-05-27] MEDS: PIPER-TAZO 3.375 GM IV (PMX) 100 ML IVPB SCH ×3 (06:26→21:30)
[2016-05-27] MEDS: LORAZEPAM 2 MG INJ IV PRN (08:08)
[2016-05-27] MEDS: FLUCONAZOLE 100 MG TAB PO SCH (08:15)
[2016-05-27] MEDS: POTASSIUM CHLORIDE 20 MEQ POWDER FOR ORAL SOLN NGT SCH (08:16)
[2016-05-27] MEDS: ASPIRIN 325 MG TAB PO SCH (09:51)
--- NOTE | 2016-05-27 12:06 | PN ---
Date/Time of Note Date/Time of Note DATE: 05/27/16 TIME: 12:00 Assessment/Plan VTE Prophylaxis VTE Prophylaxis Intervention: SCD's Lines/Catheters IV [facility]ter [facility]from [facility] Saline Lock Urinary Cath still in place: Yes Reason Cath still needed: urinary retention Assessment/Plan Chief Complaint/Hosp Course 1. S/p tracheostomy 2. Renal failure 3. Respiratory failure on vent 4. anxiety 5. PACEMAKER HX 6 low ef 7 leucocytosis 8. SEPSIS 11 s/p peg Problems: Assessment/Plan 1. Cont vent support 2. Titrate down levophed and start midodrine 5 mg BID via GT Subjective 24 Hr Interval Summary Subjective hx not possible: pt non-verbal, other (tracheostomy cuffed) Exam/Review of Systems Vital Signs Vitals Vital Signs Date Time Temp Pulse Resp B/P Pulse Ox O2 Delivery O2 Flow Rate FiO2 05/27/16 11:30 97 31 96/70 99 05/27/16 11:00 30 05/27/16 11:00 Mechanical Ventilator 05/27/16 08:00 98.3 Intake and Output 05/26/16 05/26/16 05/27/16 15:00 23:00 07:00 Intake Total 775 ml 504.87 ml 449.99 ml Output Total 642 ml 760 ml 700 ml Balance 133 ml -255.13 ml -250.01 ml Exam Constitutional: alert Psych: no complaints Head: normocephalic Eyes: nl conjunctiva ENMT: nl external ears & nose Neck: other (tracheostomy) Respiratory: diminished breath sounds Cardiovascular: regular rate and rhythm Gastrointestinal: other (GT with feeding), soft Genitourinary - Male: other (muñoz cath) Results Result Diagram: 05/27/16 0355 05/27/16 0355 Results 24 hrs Laboratory Tests Test 05/27/16 03:55 White Blood Count 11.9 H Red Blood Count 3.16 #L Hemoglobin 9.3 L Hematocrit 29.1 #L Mean Corpuscular Volume 92.1 Mean Corpuscular Hemoglobin 29.4 Mean Corpuscular Hemoglobin Concent 32.0 Red Cell Distribution Width 16.0 H Platelet Count 215 # Mean Platelet Volume 11.6 H Neutrophils % 73.7 Lymphocytes % 16.2 Monocytes % 7.2 Eosinophils % 1.4 Basophils % 0.2 Nucleated Red Blood Cells % 0.0 Neutrophils # 8.8 H Lymphocytes # 1.9 Monocytes # 0.9 Eosinophils # 0.2 Basophils # 0.0 Nucleated Red Blood Cells # 0.0 Sodium Level 135 Potassium Level 4.1 Chloride Level 105 Carbon Dioxide Level 24 Anion Gap 10 Blood Urea Nitrogen 17 Creatinine 1.10 Glucose Level 152 Calcium Level 7.7 L Medications Medications Current Medications Ondansetron HCl (Zofran Inj) 4 mg Q6H PRN IV NAUSEA AND/OR VOMITING; Start 05/01 at 20:30 Acetaminophen (Tylenol Tab) 650 mg Q6H PRN PO PAIN LEVEL 1-3 OR FEVER Last administered on 05/06/16 08:23; Admin Dose 650 MG; Start 05/01/16 at 20:30 Acetaminophen (Tylenol Supp) 650 mg Q6H PRN [place] PAIN LEVEL 1-3 OR FEVER; Start 05/01/16 at 20:30 Docusate Sodium (Colace) 100 mg Q12H PRN PO CONSTIPATION Last administered on 13:14; Admin Dose 100 MG; Start 05/01/16 at 20:30 Magnesium Hydroxide (Milk Of Mag) 30 ml DAILY PRN PO CONSTIPATION Last administered on 05/03/16 11:52; Admin Dose 30 ML; Start 05/01/16 at 20:30 Bisacodyl (Dulcolax) 5 mg DAILY PRN PO CONSTIPATION; Start 05/01/16 at 20:30 Bisacodyl (Dulcolax Supp) 10 mg DAILY PRN [place] CONSTIPATION; Start 05/01/16 at 20: 30 Sodium Biphosphate/ Sodium Phosphate (Fleet Enema) 133 ml DAILY PRN [place] CONSTIPATION; Start 05/01/16 at 20:30 Pantoprazole (Protonix Iv) 40 mg DAILY@06 IV Last administered on 05/27/16 06: 26; Admin Dose 40 MG; Start 05/02/16 at 06:00 Tamsulosin HCl (Flomax) 0.4 mg HS PO Last administered on 05/26/16 20:12; Admin Dose 0.4 MG; Start 05/03/16 at 21:00 Aspirin (Aspirin) 325 mg DAILY PO Last administered on 05/27/16 09:51; Admin Dose 325 MG; Start 05/04/16 at 09:00; Status Future hold Lorazepam (Ativan) 2 mg Q2 PRN IV AGITATION Last administered on 05/27/16 08:08 ; Admin Dose 2 MG; Start 05/05/16 at 18:00 Morphine Sulfate (morphine) 2 mg Q2H PRN IV PAIN Last administered on 07:55; Admin Dose 2 MG; Start 05/05/16 at 18:00 IV Flush 10 ml 10 ml PRN PRN IV FLUSH LINE; Start 05/06/16 at 13:00 Norepinephrine/ Dextrose (Levophed/D5W) 500 ml @ 1.87 mls/hr TITRATE IV Last administered on 05/26/16 18:06; Admin Dose 1.87 MLS/HR; Start 05/20/16 at 12:00 Potassium Chloride 20 meq 20 meq DAILY NGT Last administered on 05/27/16 08:16 ; Admin Dose 20 MEQ; Start 05/20/16 at 09:30 Piperacillin Sod/ Tazobactam Sod (Zosyn 3.375gm/ 100 ml (Pmx)) 100 ml @ 200 mls /hr Q8 IVPB Last administered on 05/27/16 06:26; Admin Dose 200 MLS/HR; Start 05/20/16 at 14:00 Fluconazole (Diflucan) 100 mg DAILY PO Last administered on 05/27/16 08:15; Admin Dose 100 MG; Start 05/23/16 at 12:30 WANG BELL May 27, 2016 12:06
[2016-05-27] MEDS: morphine 2 MG INJ IV PRN (13:35)
--- NOTE | 2016-05-27 13:43 | CONS ---
Date/Time of Note Date/Time of Note DATE: 05/27/16 TIME: 13:40 Consult Date/Type/Reason Admit Date/Time May 01, 2016 at 20:18 Initial Consult Date 05/05/16 Type of Consultation: Pulm Ordering Provider: HOLLI LIDNER MD Subjective s/p trach. No events otherwise. Objective Vital Signs Date Time Temp Pulse Resp B/P Pulse Ox O2 Delivery O2 Flow Rate FiO2 05/27/16 13:06 94 27 100 30 05/27/16 11:30 96/70 05/27/16 11:00 Mechanical Ventilator 05/27/16 08:00 98.3 Intake and Output 05/26/16 05/26/16 05/27/16 15:00 23:00 07:00 Intake Total 775 ml 504.87 ml 449.99 ml Output Total 642 ml 760 ml 700 ml Balance 133 ml -255.13 ml -250.01 ml Exam HEENT: Neck supple; no JVD; no LAD, trach site clean CVS: RRR, S1 and S2 CHEST: Clear ABD: Soft, NT, + BS EXT: No c/c/e Results/Medications Result Diagram: 05/27/16 0355 05/27/16 0355 Results 24 hrs Laboratory Tests Test 05/27/16 03:55 White Blood Count 11.9 H Red Blood Count 3.16 #L Hemoglobin 9.3 L Hematocrit 29.1 #L Mean Corpuscular Volume 92.1 Mean Corpuscular Hemoglobin 29.4 Mean Corpuscular Hemoglobin Concent 32.0 Red Cell Distribution Width 16.0 H Platelet Count 215 # Mean Platelet Volume 11.6 H Neutrophils % 73.7 Lymphocytes % 16.2 Monocytes % 7.2 Eosinophils % 1.4 Basophils % 0.2 Nucleated Red Blood Cells % 0.0 Neutrophils # 8.8 H Lymphocytes # 1.9 Monocytes # 0.9 Eosinophils # 0.2 Basophils # 0.0 Nucleated Red Blood Cells # 0.0 Sodium Level 135 Potassium Level 4.1 Chloride Level 105 Carbon Dioxide Level 24 Anion Gap 10 Blood Urea Nitrogen 17 Creatinine 1.10 Glucose Level 152 Calcium Level 7.7 L Medications Current Medications Ondansetron HCl (Zofran Inj) 4 mg Q6H PRN IV NAUSEA AND/OR VOMITING; Start 05/01 at 20:30 Acetaminophen (Tylenol Tab) 650 mg Q6H PRN PO PAIN LEVEL 1-3 OR FEVER Last administered on 05/06/16 08:23; Admin Dose 650 MG; Start 05/01/16 at 20:30 Acetaminophen (Tylenol Supp) 650 mg Q6H PRN [place] PAIN LEVEL 1-3 OR FEVER; Start 05/01/16 at 20:30 Docusate Sodium (Colace) 100 mg Q12H PRN PO CONSTIPATION Last administered on 13:14; Admin Dose 100 MG; Start 05/01/16 at 20:30 Magnesium Hydroxide (Milk Of Mag) 30 ml DAILY PRN PO CONSTIPATION Last administered on 05/03/16 11:52; Admin Dose 30 ML; Start 05/01/16 at 20:30 Bisacodyl (Dulcolax) 5 mg DAILY PRN PO CONSTIPATION; Start 05/01/16 at 20:30 Bisacodyl (Dulcolax Supp) 10 mg DAILY PRN [place] CONSTIPATION; Start 05/01/16 at 20: 30 Sodium Biphosphate/ Sodium Phosphate (Fleet Enema) 133 ml DAILY PRN [place] CONSTIPATION; Start 05/01/16 at 20:30 Pantoprazole (Protonix Iv) 40 mg DAILY@06 IV Last administered on 05/27/16 06: 26; Admin Dose 40 MG; Start 05/02/16 at 06:00 Tamsulosin HCl (Flomax) 0.4 mg HS PO Last administered on 05/26/16 20:12; Admin Dose 0.4 MG; Start 05/03/16 at 21:00 Aspirin (Aspirin) 325 mg DAILY PO Last administered on 05/27/16 09:51; Admin Dose 325 MG; Start 05/04/16 at 09:00; Status Future hold Lorazepam (Ativan) 2 mg Q2 PRN IV AGITATION Last administered on 05/27/16 08:08 ; Admin Dose 2 MG; Start 05/05/16 at 18:00 Morphine Sulfate (morphine) 2 mg Q2H PRN IV PAIN Last administered on 05/27/16 13:35; Admin Dose 2 MG; Start 05/05/16 at 18:00 IV Flush 10 ml 10 ml PRN PRN IV FLUSH LINE; Start 05/06/16 at 13:00 Norepinephrine/ Dextrose (Levophed/D5W) 500 ml @ 1.87 mls/hr TITRATE IV Last administered on 05/26/16 18:06; Admin Dose 1.87 MLS/HR; Start 05/20/16 at 12:00 Potassium Chloride 20 meq 20 meq DAILY NGT Last administered on 05/27/16 08:16 ; Admin Dose 20 MEQ; Start 05/20/16 at 09:30 Piperacillin Sod/ Tazobactam Sod (Zosyn 3.375gm/ 100 ml (Pmx)) 100 ml @ 200 mls /hr Q8 IVPB Last administered on 05/27/16 06:26; Admin Dose 200 MLS/HR; Start 05/20/16 at 14:00 Fluconazole (Diflucan) 100 mg DAILY PO Last administered on 05/27/16 08:15; Admin Dose 100 MG; Start 05/23/16 at 12:30 Midodrine (Proamatine) 5 mg BID@09,17 GTB ; Start 05/27/16 at 17:00 Assessment/Plan Additional Assessment/Plan 1. Respiratory Failure/Vent--s/p trach 2. Shock 3. COPD 4. Arrhythmia 5. Aspiration pna 7. Anemia. RECS: 1. Obtain post-trach CXR 2. Am labs 3. Abx per ID 4. BD's/CPT 5. TF/Free H20 35 min cc time ARTHUR BANKS MD May 27, 2016 13:43
--- NOTE | 2016-05-27 13:54 | PN ---
DATE: 05/27/2016 SUBJECTIVE: Patient is lying comfortably in bed, status post tracheostomy, Levophed at 2 mcg per m inute. No fevers. VITAL SIGNS: Temperature 98.3, pulse 97, respirations 22, blood pressure 96/70, saturation 99 on 30 FIO2. LABORATORY DATA: WBC 11.9, platelets 215. No shift, no bands. BUN 17, creatinine 1.10. INDWELLINGS: Trach, PEG, Alfonso, left upper extremity PICC line placed on 05/06/2016. ANTIMICROBIALS: Patient remains on: 1. Zosyn 2. Zyvox. PHYSICAL EXAMINATION: GENERAL: Fragile, elderly man in no distress. HEENT: Atraumatic, normocephalic. Sclerae anicteric. Buccal mucosa dry. NECK: Supple. Tracheostomy present. CHEST: Symmetrical. Breath sounds diminished bases. HEART: S1, S2. ABDOMEN: Soft, bowel sounds present. EXTREMITIES: No cyanosis. ASSESSMENT: 1. Respiratory failure, status post tracheostomy. 2. Recurrent healthcare-associated pneumonia versus possible aspiration. 3. Dementia. 4. Dysphagia. 5. Coronary artery disease, history of permanent pacemaker placement. PLAN: The patient remains hemodynamically unstable, still requiring low dose of Levophed for blood pressure support. He is on appropriate antimicrobials. Continue vent management as per pulmonary. Dictated By: JOSE G CUNNINGHAM [employer]TERN[employer]ER [employer] for RASHIDA HUSSEIN/TRACY Conf#: [id number] DID#: [id number]
--- NOTE | 2016-05-27 14:36 | RADRPT ---
PROCEDURE: XR Chest. CLINICAL INDICATION: Tracheostomy placement TECHNIQUE: Single frontal chest x-ray. COMPARISON: 05/23/2016 FINDINGS: Endotracheal tube has been removed. Tracheostomy tube has been placed, with tip in the mid trachea. No acute infiltrate, pleural effusion or pneumothorax is identified. Left-sided PICC line remains in place. Cardiomediastinal silhouette is within normal limits. Right-sided dual lead pacemaker r emains in place. Aortic atherosclerotic calcifications are noted. The osseous structures are remar kable for degenerative spondylosis of the spine. IMPRESSION: 1. Tracheostomy tube in good position. 2. No evidence of acute cardiopulmonary process. 3. Aortic atherosclerosis. 4. Left-sided PICC line remains in place. RPTAT: QQ .Doron Saenz MD, Date Time Electronically viewed and signed by .Doron Saenz MD, MD on 05/27/2016 14:35 .R/
--- NOTE | 2016-05-27 15:40 | CONS ---
Date/Time of Note Date/Time of Note DATE: 05/27/16 TIME: 15:35 Assessment/Plan Assessment/Plan Additional Assessment/Plan VDRF CHF Atrial fibrillation s/p PPM Asthma COPD Hypotension Glaucoma AMS Anemia s/p Blood Transfusion Hemodynamically Unstable Heart Failure Clinically Compensated Continue Norepinephrine Continue Antibiotics Continue Vent Support Continue Pulmonary Toiletry Continue GI and DVT Prophylaxis Keep K > 4 and Mag > 2 Consultation Date/Type/Reason Admit Date/Time May 01, 2016 at 20:18 Constitutional: improved, no complaints Eyes: no complaints ENT: no complaints Respiratory: no complaints Cardiovascular: no complaints Gastrointestinal: no complaints Genitourinary: no complaints Musculoskeletal: no complaints Skin: no complaints Psychological: no complaints Social History Smoking Status: Former smoker Exam/Review of Systems Vital Signs Vitals Vital Signs Date Time Temp Pulse Resp B/P Pulse Ox O2 Delivery O2 Flow Rate FiO2 05/27/16 15:25 86 22 100 30 05/27/16 13:30 112/72 05/27/16 13:00 Mechanical Ventilator 05/27/16 12:00 98.9 Intake and Output 05/26/16 05/26/16 05/27/16 15:00 23:00 07:00 Intake Total 775 ml 504.87 ml 449.99 ml Output Total 642 ml 760 ml 700 ml Balance 133 ml -255.13 ml -250.01 ml Exam Constitutional: non-verbal Head: atraumatic, normocephalic Neck: other (Trach on Ventilator) Respiratory: other (Mechanical Breath sounds heard bilaterally) Cardiovascular: regular rate and rhythm Gastrointestinal: nl liver, spleen, non-tender, soft Extremities: normal pulses Results Result Diagram: 05/27/16 0355 05/27/16 0355 Results 24 hrs Laboratory Tests Test 05/27/16 03:55 White Blood Count 11.9 H Red Blood Count 3.16 #L Hemoglobin 9.3 L Hematocrit 29.1 #L Mean Corpuscular Volume 92.1 Mean Corpuscular Hemoglobin 29.4 Mean Corpuscular Hemoglobin Concent 32.0 Red Cell Distribution Width 16.0 H Platelet Count 215 # Mean Platelet Volume 11.6 H Neutrophils % 73.7 Lymphocytes % 16.2 Monocytes % 7.2 Eosinophils % 1.4 Basophils % 0.2 Nucleated Red Blood Cells % 0.0 Neutrophils # 8.8 H Lymphocytes # 1.9 Monocytes # 0.9 Eosinophils # 0.2 Basophils # 0.0 Nucleated Red Blood Cells # 0.0 Sodium Level 135 Potassium Level 4.1 Chloride Level 105 Carbon Dioxide Level 24 Anion Gap 10 Blood Urea Nitrogen 17 Creatinine 1.10 Glucose Level 152 Calcium Level 7.7 L Medications Medications Current Medications Ondansetron HCl (Zofran Inj) 4 mg Q6H PRN IV NAUSEA AND/OR VOMITING; Start 05/01 at 20:30 Acetaminophen (Tylenol Tab) 650 mg Q6H PRN PO PAIN LEVEL 1-3 OR FEVER Last administered on 05/06/16 08:23; Admin Dose 650 MG; Start 05/01/16 at 20:30 Acetaminophen (Tylenol Supp) 650 mg Q6H PRN [place] PAIN LEVEL 1-3 OR FEVER; Start 05/01/16 at 20:30 Docusate Sodium (Colace) 100 mg Q12H PRN PO CONSTIPATION Last administered on 13:14; Admin Dose 100 MG; Start 05/01/16 at 20:30 Magnesium Hydroxide (Milk Of Mag) 30 ml DAILY PRN PO CONSTIPATION Last administered on 05/03/16 11:52; Admin Dose 30 ML; Start 05/01/16 at 20:30 Bisacodyl (Dulcolax) 5 mg DAILY PRN PO CONSTIPATION; Start 05/01/16 at 20:30 Bisacodyl (Dulcolax Supp) 10 mg DAILY PRN [place] CONSTIPATION; Start 05/01/16 at 20: 30 Sodium Biphosphate/ Sodium Phosphate (Fleet Enema) 133 ml DAILY PRN [place] CONSTIPATION; Start 05/01/16 at 20:30 Pantoprazole (Protonix Iv) 40 mg DAILY@06 IV Last administered on 05/27/16 06: 26; Admin Dose 40 MG; Start 05/02/16 at 06:00 Tamsulosin HCl (Flomax) 0.4 mg HS PO Last administered on 05/26/16 20:12; Admin Dose 0.4 MG; Start 05/03/16 at 21:00 Aspirin (Aspirin) 325 mg DAILY PO Last administered on 05/27/16 09:51; Admin Dose 325 MG; Start 05/04/16 at 09:00; Status Future hold Lorazepam (Ativan) 2 mg Q2 PRN IV AGITATION Last administered on 05/27/16 08:08 ; Admin Dose 2 MG; Start 05/05/16 at 18:00 Morphine Sulfate (morphine) 2 mg Q2H PRN IV PAIN Last administered on 05/27/16 13:35; Admin Dose 2 MG; Start 05/05/16 at 18:00 IV Flush 10 ml 10 ml PRN PRN IV FLUSH LINE; Start 05/06/16 at 13:00 Norepinephrine/ Dextrose (Levophed/D5W) 500 ml @ 1.87 mls/hr TITRATE IV Last administered on 05/26/16 18:06; Admin Dose 1.87 MLS/HR; Start 05/20/16 at 12:00 Potassium Chloride 20 meq 20 meq DAILY NGT Last administered on 05/27/16 08:16 ; Admin Dose 20 MEQ; Start 05/20/16 at 09:30 Piperacillin Sod/ Tazobactam Sod (Zosyn 3.375gm/ 100 ml (Pmx)) 100 ml @ 200 mls /hr Q8 IVPB Last administered on 05/27/16 06:26; Admin Dose 200 MLS/HR; Start 05/20/16 at 14:00 Fluconazole (Diflucan) 100 mg DAILY PO Last administered on 05/27/16 08:15; Admin Dose 100 MG; Start 05/23/16 at 12:30 Midodrine (Proamatine) 5 mg BID@,17 GTB ; Start 05/27/16 at 17:00 CHRISTIAN FERMIN M.D. May 27, 2016 15:40
[2016-05-27] MEDS: MIDODRINE 5 MG TAB GTB SCH (17:26)
--- NOTE | 2016-05-27 19:57 | CONS ---
Date/Time of Note Date/Time of Note DATE: 05/27/16 TIME: 19:56 Assessment/Plan Assessment/Plan Additional Assessment/Plan Additional Assessment/Plan Additional Assessment/Plan IMPRESSION: 1. Aspiration pneumonia. 2. Leukocytosis. 3. Status post pacemaker insertion. 4. Benign prostatic hypertrophy. 5. Legally blind. 6. Status post extubation. 7. History of bronchial asthma. 8. 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 dysphagia ,s/p PEG,tolerating feeding 11.respiratory failure on vent 12. Status post trach Plan continue present care Patient is tolerating feeding at 50 cc/h ok to transfer to tele floor. Consultation Date/Type/Reason Admit Date/Time May 01, 2016 at 20:18 Initial Consult Date 05/05/16 Type of Consultation: Pulm Referring Provider: HOLLI LINDER MD 24 HR Interval Summary Constitutional: no complaints Exam/Review of Systems Vital Signs Vitals Vital Signs Date Time Temp Pulse Resp B/P Pulse Ox O2 Delivery O2 Flow Rate FiO2 05/27/16 18:30 79 24 97/67 98 05/27/16 18:00 Mechanical Ventilator 05/27/16 17:30 30 05/27/16 16:00 98.6 Intake and Output 05/26/16 05/26/16 05/27/16 15:00 23:00 07:00 Intake Total 775 ml 504.87 ml 449.99 ml Output Total 642 ml 760 ml 700 ml Balance 133 ml -255.13 ml -250.01 ml Exam Constitutional: alert, oriented, well developed Psych: nl mood/affect, no complaints Head: atraumatic, normocephalic Eyes: EOMI, PERRL, nl conjunctiva, nl lids, nl sclera ENMT: nl external ears & nose, nl lips & teeth, nl nasal mucosa & septum Neck: non-tender, supple Respiratory: clear to auscultation, normal air movement Cardiovascular: nl pulses, regular rate and rhythm Gastrointestinal: nl liver, spleen, non-tender, soft Musculoskeletal: nl extremities to inspection, nl gait and stance Extremities: normal pulses Neurological: [employer]IC II-XII intact, nl mental status, nl speech, nl strength Skin: nl turgor, No rash or lesions Lymph: nl lymph nodes Results Result Diagram: 05/27/16 0355 05/27/16 0355 Results 24 hrs Laboratory Tests Test 05/27/16 03:55 White Blood Count 11.9 H Red Blood Count 3.16 #L Hemoglobin 9.3 L Hematocrit 29.1 #L Mean Corpuscular Volume 92.1 Mean Corpuscular Hemoglobin 29.4 Mean Corpuscular Hemoglobin Concent 32.0 Red Cell Distribution Width 16.0 H Platelet Count 215 # Mean Platelet Volume 11.6 H Neutrophils % 73.7 Lymphocytes % 16.2 Monocytes % 7.2 Eosinophils % 1.4 Basophils % 0.2 Nucleated Red Blood Cells % 0.0 Neutrophils # 8.8 H Lymphocytes # 1.9 Monocytes # 0.9 Eosinophils # 0.2 Basophils # 0.0 Nucleated Red Blood Cells # 0.0 Sodium Level 135 Potassium Level 4.1 Chloride Level 105 Carbon Dioxide Level 24 Anion Gap 10 Blood Urea Nitrogen 17 Creatinine 1.10 Glucose Level 152 Calcium Level 7.7 L Medications Medications Current Medications Ondansetron HCl (Zofran Inj) 4 mg Q6H PRN IV NAUSEA AND/OR VOMITING; Start 05/01 at 20:30 Acetaminophen (Tylenol Tab) 650 mg Q6H PRN PO PAIN LEVEL 1-3 OR FEVER Last administered on 05/06/16 08:23; Admin Dose 650 MG; Start 05/01/16 at 20:30 Acetaminophen (Tylenol Supp) 650 mg Q6H PRN [place] PAIN LEVEL 1-3 OR FEVER; Start 05/01/16 at 20:30 Docusate Sodium (Colace) 100 mg Q12H PRN PO CONSTIPATION Last administered on 13:14; Admin Dose 100 MG; Start 05/01/16 at 20:30 Magnesium Hydroxide (Milk Of Mag) 30 ml DAILY PRN PO CONSTIPATION Last administered on 05/03/16 11:52; Admin Dose 30 ML; Start 05/01/16 at 20:30 Bisacodyl (Dulcolax) 5 mg DAILY PRN PO CONSTIPATION; Start 05/01/16 at 20:30 Bisacodyl (Dulcolax Supp) 10 mg DAILY PRN [place] CONSTIPATION; Start 05/01/16 at 20: 30 Sodium Biphosphate/ Sodium Phosphate (Fleet Enema) 133 ml DAILY PRN [place] CONSTIPATION; Start 05/01/16 at 20:30 Pantoprazole (Protonix Iv) 40 mg DAILY@06 IV Last administered on 05/27/16 06: 26; Admin Dose 40 MG; Start 05/02/16 at 06:00 Tamsulosin HCl (Flomax) 0.4 mg HS PO Last administered on 05/26/16 20:12; Admin Dose 0.4 MG; Start 05/03/16 at 21:00 Aspirin (Aspirin) 325 mg DAILY PO Last administered on 05/27/16 09:51; Admin Dose 325 MG; Start 05/04/16 at 09:00; Status Future hold Lorazepam (Ativan) 2 mg Q2 PRN IV AGITATION Last administered on 05/27/16 08:08 ; Admin Dose 2 MG; Start 05/05/16 at 18:00 Morphine Sulfate (morphine) 2 mg Q2H PRN IV PAIN Last administered on 05/27/16 13:35; Admin Dose 2 MG; Start 05/05/16 at 18:00 IV Flush 10 ml 10 ml PRN PRN IV FLUSH LINE; Start 05/06/16 at 13:00 Norepinephrine/ Dextrose (Levophed/D5W) 500 ml @ 1.87 mls/hr TITRATE IV Last administered on 05/26/16 18:06; Admin Dose 1.87 MLS/HR; Start 05/20/16 at 12:00 Potassium Chloride 20 meq 20 meq DAILY NGT Last administered on 05/27/16 08:16 ; Admin Dose 20 MEQ; Start 05/20/16 at 09:30 Piperacillin Sod/ Tazobactam Sod (Zosyn 3.375gm/ 100 ml (Pmx)) 100 ml @ 200 mls /hr Q8 IVPB Last administered on 05/27/16 14:26; Admin Dose 200 MLS/HR; Start 05/20/16 at 14:00 Fluconazole (Diflucan) 100 mg DAILY PO Last administered on 05/27/16 08:15; Admin Dose 100 MG; Start 05/23/16 at 12:30 Midodrine (Proamatine) 5 mg BID@09,17 GTB Last administered on 05/27/16 17:26; Admin Dose 5 MG; Start 05/27/16 at 17:00 NEVAEH WOODSON MD May 27, 2016 19:57
--- NOTE | 2016-05-27 20:51 | PN ---
Date/Time of Note Date/Time of Note DATE: 05/27/16 TIME: 20:50 Assessment/Plan Lines/Catheters IV Catheter Type (from Nrsg): Saline Lock Alfonso in Place (from Nrsg): Yes Assessment/Plan Chief Complaint/Hosp Course IMPRESSION: Respiratory failure, unable to clear secretions, multiple bouts of pneumonia. Sp Tracheostomy RECOMMENDATIONS: pulm toilet trach care. Discussed with the nursing staff. Problems: Subjective 24 Hr Interval Summary Constitutional: improved Pain Control: mild Exam/Review of Systems Vital Signs Vitals Vital Signs Date Time Temp Pulse Resp B/P Pulse Ox O2 Delivery O2 Flow Rate FiO2 05/27/16 18:30 79 24 97/67 98 05/27/16 18:00 Mechanical Ventilator 05/27/16 17:30 30 05/27/16 16:00 98.6 Intake and Output 05/26/16 05/26/16 05/27/16 15:00 23:00 07:00 Intake Total 775 ml 504.87 ml 449.99 ml Output Total 642 ml 760 ml 700 ml Balance 133 ml -255.13 ml -250.01 ml Exam ENMT: mucosa pink and moist, nl external ears & nose, nl lips & teeth, nl nasal mucosa & septum Neck: non-tender, supple Respiratory: clear to auscultation, normal air movement Cardiovascular: nl pulses, regular rate and rhythm Results Result Diagram: 05/27/16 0355 05/27/16 0355 JO ANN KING MD May 27, 2016 20:51
[2016-05-27] MEDS: TAMSULOSIN (SR) 0.4 MG CAP PO SCH (21:19)
[2016-05-28] VITALS (90 sets, daily range): BP systolic 79–160; BP diastolic 45–134; PULSE 61–110; RESP 15–30
[2016-05-28 04:59] LABS: ADD SCAN DIFF NO
[2016-05-28 05:11] LABS: BASOPHILS % 0.2 % (0.0-2.0); EOSINOPHILS # 0.3 10^3/ul (0.0-0.5); EOSINOPHILS % 2.8 % (0.0-7.0); HEMATOCRIT 27.8 % (42.0-52.0); HEMOGLOBIN 8.8 g/dl (14.0-18.0); LYMPHOCYTES # 1.8 10^3/ul (0.8-2.9); LYMPHOCYTES % 15.8 % (15.0-51.0); MEAN CORPUSCULAR HEMOGLOBIN 29.5 pg (29.0-33.0); MEAN CORPUSCULAR HGB CONC 31.7 g/dl (32.0-37.0); MEAN CORPUSCULAR VOLUME 93.3 fl (82.0-101.0); MEAN PLATELET VOLUME 11.4 fl (7.4-10.4); MONOCYTE # 0.8 10^3/ul (0.3-0.9); MONOCYTES % 7.1 % (0.0-11.0); NEUTROPHIL # 8.4 10^3/ul (1.6-7.5); PLATELET COUNT 226 10^3/UL (140-415); RED BLOOD COUNT 2.98 10^6/ul (4.70-6.10); RED CELL DISTRIBUTION WIDTH 15.9 % (11.5-14.5); WHITE BLOOD COUNT 11.6 10^3/ul (4.8-10.8)
[2016-05-28] MEDS: PANTOPRAZOLE 40 MG INJ IV SCH (05:32)
[2016-05-28] MEDS: PIPER-TAZO 3.375 GM IV (PMX) 100 ML IVPB SCH ×3 (05:39→22:46)
[2016-05-28 05:45] LABS: POTASSIUM 4.2 mmol/L (3.5-5.1)
[2016-05-28 05:48] LABS: CREATININE 1.04 mg/dl (0.61-1.24)
[2016-05-28 05:49] LABS: CALCIUM 7.7 mg/dl (8.4-10.2)
[2016-05-28] MEDS: FLUCONAZOLE 100 MG TAB PO SCH (08:12)
[2016-05-28] MEDS: POTASSIUM CHLORIDE 20 MEQ POWDER FOR ORAL SOLN NGT SCH (08:12)
[2016-05-28] MEDS: ASPIRIN 325 MG TAB PO SCH (08:13)
[2016-05-28] MEDS: MIDODRINE 5 MG TAB GTB SCH ×2 (08:13→22:46)
--- NOTE | 2016-05-28 11:03 | PN ---
Date/Time of Note Date/Time of Note DATE: 05/28/16 TIME: 11:01 Assessment/Plan Lines/Catheters IV Catheter Type (from Nrsg): Saline Lock Alfonso in Place (from Nrsg): Yes Assessment/Plan Chief Complaint/Hosp Course IMPRESSION: Respiratory failure, unable to clear secretions, multiple bouts of pneumonia. Sp Tracheostomy RECOMMENDATIONS: pulm toilet trach care. Discussed with the nursing staff. Problems: Subjective 24 Hr Interval Summary Constitutional: improved Pain Control: mild Exam/Review of Systems Vital Signs Vitals Vital Signs Date Time Temp Pulse Resp B/P Pulse Ox O2 Delivery O2 Flow Rate FiO2 05/28/16 10:15 73 20 108/51 99 05/28/16 10:00 Mechanical Ventilator 05/28/16 09:45 30 05/28/16 08:00 97.9 Intake and Output 05/27/16 05/27/16 05/28/16 15:00 23:00 07:00 Intake Total 614.96 ml 630.00 ml 731.48 ml Output Total 750 ml 960 ml 910 ml Balance -135.04 ml -330.00 ml -178.52 ml Exam Neck: non-tender, supple Respiratory: clear to auscultation, normal air movement Cardiovascular: nl pulses, regular rate and rhythm Gastrointestinal: nl liver, spleen, non-tender, soft Results Result Diagram: 05/28/16 0350 05/28/16 0350 JO ANN KING MD May 28, 2016 11:03
--- NOTE | 2016-05-28 12:52 | CONS ---
Date/Time of Note Date/Time of Note DATE: 05/28/16 TIME: 12:51 Consult Date/Type/Reason Admit Date/Time May 01, 2016 at 20:18 Initial Consult Date 05/05/16 Type of Consultation: Pulm/CCM Ordering Provider: HOLLI LINDER MD Subjective No events on [facility] vent. Objective Vital Signs Date Time Temp Pulse Resp B/P Pulse Ox O2 Delivery O2 Flow Rate FiO2 05/28/16 12:00 98.0 61 20 90/48 98 Mechanical Ventilator 05/28/16 11:15 30 Intake and Output 05/27/16 05/27/16 05/28/16 15:00 23:00 07:00 Intake Total 614.96 ml 630.00 ml 731.48 ml Output Total 750 ml 960 ml 910 ml Balance -135.04 ml -330.00 ml -178.52 ml Exam HEENT: Neck supple; no JVD; no LAD, trach site clean CVS: RRR, S1 and S2 CHEST: Clear ABD: Soft, NT, + BS EXT: No c/c/e Results/Medications Result Diagram: 05/28/16 0350 05/28/16 0350 Results 24 hrs Laboratory Tests Test 05/28/16 03:50 White Blood Count 11.6 H Red Blood Count 2.98 L Hemoglobin 8.8 L Hematocrit 27.8 L Mean Corpuscular Volume 93.3 Mean Corpuscular Hemoglobin 29.5 Mean Corpuscular Hemoglobin Concent 31.7 L Red Cell Distribution Width 15.9 H Platelet Count 226 Mean Platelet Volume 11.4 H Neutrophils % 72.0 Lymphocytes % 15.8 Monocytes % 7.1 Eosinophils % 2.8 Basophils % 0.2 Nucleated Red Blood Cells % 0.0 Neutrophils # 8.4 H Lymphocytes # 1.8 Monocytes # 0.8 Eosinophils # 0.3 Basophils # 0.0 Nucleated Red Blood Cells # 0.0 Sodium Level 133 L Potassium Level 4.2 Chloride Level 104 Carbon Dioxide Level 26 Anion Gap 7 L Blood Urea Nitrogen 20 Creatinine 1.04 Glucose Level 152 Calcium Level 7.7 L Medications Current Medications Ondansetron HCl (Zofran Inj) 4 mg Q6H PRN IV NAUSEA AND/OR VOMITING; Start 05/01 at 20:30 Acetaminophen (Tylenol Tab) 650 mg Q6H PRN PO PAIN LEVEL 1-3 OR FEVER Last administered on 05/06/16 08:23; Admin Dose 650 MG; Start 05/01/16 at 20:30 Acetaminophen (Tylenol Supp) 650 mg Q6H PRN [place] PAIN LEVEL 1-3 OR FEVER; Start 05/01/16 at 20:30 Docusate Sodium (Colace) 100 mg Q12H PRN PO CONSTIPATION Last administered on 13:14; Admin Dose 100 MG; Start 05/01/16 at 20:30 Magnesium Hydroxide (Milk Of Mag) 30 ml DAILY PRN PO CONSTIPATION Last administered on 05/03/16 11:52; Admin Dose 30 ML; Start 05/01/16 at 20:30 Bisacodyl (Dulcolax) 5 mg DAILY PRN PO CONSTIPATION; Start 05/01/16 at 20:30 Bisacodyl (Dulcolax Supp) 10 mg DAILY PRN [place] CONSTIPATION; Start 05/01/16 at 20: 30 Sodium Biphosphate/ Sodium Phosphate (Fleet Enema) 133 ml DAILY PRN [place] CONSTIPATION; Start 05/01/16 at 20:30 Pantoprazole (Protonix Iv) 40 mg DAILY@06 IV Last administered on 05/28/16 05: 32; Admin Dose 40 MG; Start 05/02/16 at 06:00 Tamsulosin HCl (Flomax) 0.4 mg HS PO Last administered on 05/27/16 21:19; Admin Dose 0.4 MG; Start 05/03/16 at 21:00 Aspirin (Aspirin) 325 mg DAILY PO Last administered on 05/28/16 08:13; Admin Dose 325 MG; Start 05/04/16 at 09:00; Status Future hold Lorazepam (Ativan) 2 mg Q2 PRN IV AGITATION Last administered on 05/27/16 08:08 ; Admin Dose 2 MG; Start 05/05/16 at 18:00 Morphine Sulfate (morphine) 2 mg Q2H PRN IV PAIN Last administered on 05/27/16 13:35; Admin Dose 2 MG; Start 05/05/16 at 18:00 IV Flush 10 ml 10 ml PRN PRN IV FLUSH LINE; Start 05/06/16 at 13:00 Norepinephrine/ Dextrose (Levophed/D5W) 500 ml @ 1.87 mls/hr TITRATE IV Last administered on 05/26/16 18:06; Admin Dose 1.87 MLS/HR; Start 05/20/16 at 12:00 Potassium Chloride 20 meq 20 meq DAILY NGT Last administered on 05/28/16 08:12 ; Admin Dose 20 MEQ; Start 05/20/16 at 09:30 Piperacillin Sod/ Tazobactam Sod (Zosyn 3.375gm/ 100 ml (Pmx)) 100 ml @ 200 mls /hr Q8 IVPB Last administered on 05/28/16 05:39; Admin Dose 200 MLS/HR; Start 05/20/16 at 14:00 Fluconazole (Diflucan) 100 mg DAILY PO Last administered on 05/28/16 08:12; Admin Dose 100 MG; Start 05/23/16 at 12:30 Midodrine (Proamatine) 5 mg BID@17 GTB Last administered on 05/28/16 08:13; Admin Dose 5 MG; Start 05/27/16 at 17:00 Assessment/Plan Additional Assessment/Plan IMP: 1. Respiratory Failure/Vent--s/p trach 2. Shock 3. COPD 4. Arrhythmia 5. Aspiration pna 7. Anemia. RECS: 1. Obtain post-trach CXR 2. Titrate pressors to MAP > 65 mm Hg 3. Abx per ID 4. BD's/CPT 5. TF/Free H20 6. Am labs 35 min cc time ARTHUR BANKS MD May 28, 2016 12:52
--- NOTE | 2016-05-28 13:42 | CONS ---
Date/Time of Note Date/Time of Note DATE: 05/28/16 TIME: 13:39 Assessment/Plan Assessment/Plan Additional Assessment/Plan VDRF CHF Atrial fibrillation s/p PPM Asthma COPD Hypotension Glaucoma AMS Anemia s/p Blood Transfusion Hemodynamically Unstable Heart Failure Clinically Compensated Continue Vent Support Continue Pulmonary Toiletry Continue Norepinephrine Continue Antibiotics Keep K > 4 and Mag > 2 Continue GI and DVT Prophylaxis Consultation Date/Type/Reason Admit Date/Time May 01, 2016 at 20:18 Initial Consult Date 05/05/16 Type of Consultation: Pulm/CCM Referring Provider: HOLLI LINDER MD Exam/Review of Systems Vital Signs Vitals Vital Signs Date Time Temp Pulse Resp B/P Pulse Ox O2 Delivery O2 Flow Rate FiO2 05/28/16 13:14 70 20 98 30 05/28/16 12:00 98.0 90/48 Mechanical Ventilator Intake and Output 05/27/16 05/27/16 05/28/16 15:00 23:00 07:00 Intake Total 614.96 ml 630.00 ml 731.48 ml Output Total 750 ml 960 ml 910 ml Balance -135.04 ml -330.00 ml -178.52 ml Exam Constitutional: non-verbal Head: atraumatic, normocephalic Neck: other (Trach on Ventilator) Respiratory: other (Mechanical Breath sounds heard bilaterally) Cardiovascular: regular rate and rhythm, No m/r/g Gastrointestinal: nl liver, spleen, non-tender, soft Extremities: normal pulses Results Result Diagram: 05/28/16 0350 05/28/16 0350 Results 24 hrs Laboratory Tests Test 05/28/16 03:50 White Blood Count 11.6 H Red Blood Count 2.98 L Hemoglobin 8.8 L Hematocrit 27.8 L Mean Corpuscular Volume 93.3 Mean Corpuscular Hemoglobin 29.5 Mean Corpuscular Hemoglobin Concent 31.7 L Red Cell Distribution Width 15.9 H Platelet Count 226 Mean Platelet Volume 11.4 H Neutrophils % 72.0 Lymphocytes % 15.8 Monocytes % 7.1 Eosinophils % 2.8 Basophils % 0.2 Nucleated Red Blood Cells % 0.0 Neutrophils # 8.4 H Lymphocytes # 1.8 Monocytes # 0.8 Eosinophils # 0.3 Basophils # 0.0 Nucleated Red Blood Cells # 0.0 Sodium Level 133 L Potassium Level 4.2 Chloride Level 104 Carbon Dioxide Level 26 Anion Gap 7 L Blood Urea Nitrogen 20 Creatinine 1.04 Glucose Level 152 Calcium Level 7.7 L Medications Medications Current Medications Ondansetron HCl (Zofran Inj) 4 mg Q6H PRN IV NAUSEA AND/OR VOMITING; Start 05/01 at 20:30 Acetaminophen (Tylenol Tab) 650 mg Q6H PRN PO PAIN LEVEL 1-3 OR FEVER Last administered on 05/06/16 08:23; Admin Dose 650 MG; Start 05/01/16 at 20:30 Acetaminophen (Tylenol Supp) 650 mg Q6H PRN [place] PAIN LEVEL 1-3 OR FEVER; Start 05/01/16 at 20:30 Docusate Sodium (Colace) 100 mg Q12H PRN PO CONSTIPATION Last administered on 13:14; Admin Dose 100 MG; Start 05/01/16 at 20:30 Magnesium Hydroxide (Milk Of Mag) 30 ml DAILY PRN PO CONSTIPATION Last administered on 05/03/16 11:52; Admin Dose 30 ML; Start 05/01/16 at 20:30 Bisacodyl (Dulcolax) 5 mg DAILY PRN PO CONSTIPATION; Start 05/01/16 at 20:30 Bisacodyl (Dulcolax Supp) 10 mg DAILY PRN [place] CONSTIPATION; Start 05/01/16 at 20: 30 Sodium Biphosphate/ Sodium Phosphate (Fleet Enema) 133 ml DAILY PRN [place] CONSTIPATION; Start 05/01/16 at 20:30 Pantoprazole (Protonix Iv) 40 mg DAILY@06 IV Last administered on 05/28/16 05: 32; Admin Dose 40 MG; Start 05/02/16 at 06:00 Tamsulosin HCl (Flomax) 0.4 mg HS PO Last administered on 05/27/16 21:19; Admin Dose 0.4 MG; Start 05/03/16 at 21:00 Aspirin (Aspirin) 325 mg DAILY PO Last administered on 05/28/16 08:13; Admin Dose 325 MG; Start 05/04/16 at 09:00; Status Future hold Lorazepam (Ativan) 2 mg Q2 PRN IV AGITATION Last administered on 05/27/16 08:08 ; Admin Dose 2 MG; Start 05/05/16 at 18:00 Morphine Sulfate (morphine) 2 mg Q2H PRN IV PAIN Last administered on 05/27/16 13:35; Admin Dose 2 MG; Start 05/05/16 at 18:00 IV Flush 10 ml 10 ml PRN PRN IV FLUSH LINE; Start 05/06/16 at 13:00 Norepinephrine/ Dextrose (Levophed/D5W) 500 ml @ 1.87 mls/hr TITRATE IV Last administered on 05/26/16 18:06; Admin Dose 1.87 MLS/HR; Start 05/20/16 at 12:00 Potassium Chloride 20 meq 20 meq DAILY NGT Last administered on 05/28/16 08:12 ; Admin Dose 20 MEQ; Start 05/20/16 at 09:30 Piperacillin Sod/ Tazobactam Sod (Zosyn 3.375gm/ 100 ml (Pmx)) 100 ml @ 200 mls /hr Q8 IVPB Last administered on 05/28/16 05:39; Admin Dose 200 MLS/HR; Start 05/20/16 at 14:00 Fluconazole (Diflucan) 100 mg DAILY PO Last administered on 05/28/16 08:12; Admin Dose 100 MG; Start 05/23/16 at 12:30 Midodrine (Proamatine) 5 mg BID@09,17 GTB Last administered on 05/28/16 08:13; Admin Dose 5 MG; Start 05/27/16 at 17:00 CHRISTIAN FERMIN M.D. May 28, 2016 13:42
--- NOTE | 2016-05-28 14:47 | PN ---
DATE: 05/28/2016 SUBJECTIVE: No events overnight. No fevers. The patient is lying comfortably in bed, still on low dose of Levophed. WBC today 11.6, H and H 8.8 and 27.8, platelets 226, neutrophils 72. BUN 20, cr eatinine 1.04. INDWELLINGS: Trach, PEG, Alfonso, PICC line placed on 05/06/2016. ANTIMICROBIALS: 1. Zosyn. 2. Fluconazole. PHYSICAL EXAMINATION: GENERAL: Fragile, elderly man in no distress. HEENT: Head atraumatic, normocephalic. Sclerae anicteric. Buccal mucosa dry. NECK: Supple, tracheostomy present. CHEST: Rise symmetrical. Breath sounds diminished to bases. HEART: S1, S2. ABDOMEN: Soft, bowel sounds present. EXTREMITIES: Trace edema. ASSESSMENT: 1. Septic shock. 2. Healthcare-associated pneumonia. 3. Chronic respiratory failure, status post tracheostomy. 4. Dysphagia, status post percutaneous endoscopic gastrostomy. 5. Dementia. 6. History of permanent pacemaker, with arrhythmia. PLAN: The patient remains unchanged. Continue present care. Complete antibiotics for a couple mor e days. Follow recommendations of consultants. Dictated By: JOSE G CUNNINGHAM COORDINATOR OF REHABILITATION SERVICES for RASHIDA CAMPBELL MD NI/NTS Conf#: [id number] DID#: [id number] CC: HOLLI LINDER MD; ARSHIDA CAMPBELL MD;*EndCC*
--- NOTE | 2016-05-28 16:32 | PN ---
Date/Time of Note Date/Time of Note DATE: 05/28/16 TIME: 16:31 Assessment/Plan VTE Prophylaxis VTE Prophylaxis Intervention: other Lines/Catheters IV Catheter Type (from Rust): Saline Lock Urinary Cath still in place: Yes Reason Cath still needed: other (indicate) Assessment/Plan Chief Complaint/Hosp Course IMPRESSION: The patient has 1. ACUTE RES FAILURE on vent 2. hypernatremia better 3. Hypertension. 4. anxiety 5. PACEMAKER HX 6 low ef 7 leucocytosis 8 RHINA 9 VDRF 10 SEPSIS 11 s/p peg plan bmp per id and pulmonary d/w family wean pressor Problems: Subjective 24 Hr Interval Summary Subjective hx not possible: other (on vent) Exam/Review of Systems Vital Signs Vitals Vital Signs Date Time Temp Pulse Resp B/P Pulse Ox O2 Delivery O2 Flow Rate FiO2 05/28/16 16:15 71 20 104/48 98 05/28/16 16:00 98.9 Mechanical Ventilator 05/28/16 15:39 30 Intake and Output 05/27/16 05/27/16 05/28/16 15:00 23:00 07:00 Intake Total 614.96 ml 630.00 ml 731.48 ml Output Total 750 ml 960 ml 910 ml Balance -135.04 ml -330.00 ml -178.52 ml Exam Neck: supple Respiratory: clear to auscultation Cardiovascular: regular rate and rhythm Gastrointestinal: soft Musculoskeletal: nl extremities to inspection Extremities: normal pulses Results Result Diagram: 05/28/16 0350 05/28/16 0350 Results 24 hrs Laboratory Tests Test 05/28/16 03:50 White Blood Count 11.6 H Red Blood Count 2.98 L Hemoglobin 8.8 L Hematocrit 27.8 L Mean Corpuscular Volume 93.3 Mean Corpuscular Hemoglobin 29.5 Mean Corpuscular Hemoglobin Concent 31.7 L Red Cell Distribution Width 15.9 H Platelet Count 226 Mean Platelet Volume 11.4 H Neutrophils % 72.0 Lymphocytes % 15.8 Monocytes % 7.1 Eosinophils % 2.8 Basophils % 0.2 Nucleated Red Blood Cells % 0.0 Neutrophils # 8.4 H Lymphocytes # 1.8 Monocytes # 0.8 Eosinophils # 0.3 Basophils # 0.0 Nucleated Red Blood Cells # 0.0 Sodium Level 133 L Potassium Level 4.2 Chloride Level 104 Carbon Dioxide Level 26 Anion Gap 7 L Blood Urea Nitrogen 20 Creatinine 1.04 Glucose Level 152 Calcium Level 7.7 L Medications Medications Current Medications Ondansetron HCl (Zofran Inj) 4 mg Q6H PRN IV NAUSEA AND/OR VOMITING; Start 05/01 at 20:30 Acetaminophen (Tylenol Tab) 650 mg Q6H PRN PO PAIN LEVEL 1-3 OR FEVER Last administered on 05/06/16 08:23; Admin Dose 650 MG; Start 05/01/16 at 20:30 Acetaminophen (Tylenol Supp) 650 mg Q6H PRN [place] PAIN LEVEL 1-3 OR FEVER; Start 05/01/16 at 20:30 Docusate Sodium (Colace) 100 mg Q12H PRN PO CONSTIPATION Last administered on 13:14; Admin Dose 100 MG; Start 05/01/16 at 20:30 Magnesium Hydroxide (Milk Of Mag) 30 ml DAILY PRN PO CONSTIPATION Last administered on 05/03/16 11:52; Admin Dose 30 ML; Start 05/01/16 at 20:30 Bisacodyl (Dulcolax) 5 mg DAILY PRN PO CONSTIPATION; Start 05/01/16 at 20:30 Bisacodyl (Dulcolax Supp) 10 mg DAILY PRN [place] CONSTIPATION; Start 05/01/16 at 20: 30 Sodium Biphosphate/ Sodium Phosphate (Fleet Enema) 133 ml DAILY PRN [place] CONSTIPATION; Start 05/01/16 at 20:30 Pantoprazole (Protonix Iv) 40 mg DAILY@06 IV Last administered on 05/28/16 05: 32; Admin Dose 40 MG; Start 05/02/16 at 06:00 Tamsulosin HCl (Flomax) 0.4 mg HS PO Last administered on 05/27/16 21:19; Admin Dose 0.4 MG; Start 05/03/16 at 21:00 Aspirin (Aspirin) 325 mg DAILY PO Last administered on 05/28/16 08:13; Admin Dose 325 MG; Start 05/04/16 at 09:00; Status Future hold Lorazepam (Ativan) 2 mg Q2 PRN IV AGITATION Last administered on 05/27/16 08:08 ; Admin Dose 2 MG; Start 05/05/16 at 18:00 Morphine Sulfate (morphine) 2 mg Q2H PRN IV PAIN Last administered on 05/27/16 13:35; Admin Dose 2 MG; Start 05/05/16 at 18:00 IV Flush (NS 10 ml) 10 ml PRN PRN IV FLUSH LINE; Start 05/06/16 at 13:00 Potassium Chloride 20 meq 20 meq DAILY NGT Last administered on 05/28/16 08:12 ; Admin Dose 20 MEQ; Start 05/20/16 at 09:30 Piperacillin Sod/ Tazobactam Sod (Zosyn 3.375gm/ 100 ml (Pmx)) 100 ml @ 200 mls /hr Q8 IVPB Last administered on 05/28/16 14:57; Admin Dose 200 MLS/HR; Start 05/20/16 at 14:00 Fluconazole 100 mg 100 mg DAILY PO Last administered on 05/28/16 08:12; Admin Dose 100 MG; Start 05/23/16 at 12:30 Norepinephrine/ Dextrose (Levophed/D5W) 500 ml @ 1.87 mls/hr TITRATE IV ; Start 05/28/16 at 15:00 Midodrine (Proamatine) 10 mg TID GTB ; Start 05/28/16 at 21:00 HOLLI LINDER MD May 28, 2016 16:32
--- NOTE | 2016-05-28 16:50 | CONS ---
Date/Time of Note Date/Time of Note DATE: 05/28/16 TIME: 16:49 Assessment/Plan Assessment/Plan Additional Assessment/Plan Additional Assessment/Plan IMPRESSION: 1. Aspiration pneumonia. 2. Leukocytosis. 3. Status post pacemaker insertion. 4. Benign prostatic hypertrophy. 5. Legally blind. 6. Status post extubation. 7. History of bronchial asthma. 8. 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 dysphagia ,s/p PEG,tolerating feeding 11.respiratory failure on vent 12. Status post trach Plan continue present care Patient is tolerating feeding at 50 cc/h ok to transfer to tele floor, if his blood pressure is stable Consultation Date/Type/Reason Admit Date/Time May 01, 2016 at 20:18 Initial Consult Date 05/05/16 Type of Consultation: Pulm/CCM Referring Provider: HOLLI LINDER MD 24 HR Interval Summary Free Text/Dictation Discussed with the staff no abdominal pain, no diarrhea, no vomiting, no GI bleeding. Patient is still on pressor support. Exam/Review of Systems Vital Signs Vitals Vital Signs Date Time Temp Pulse Resp B/P Pulse Ox O2 Delivery O2 Flow Rate FiO2 05/28/16 16:15 71 20 104/48 98 05/28/16 16:00 98.9 Mechanical Ventilator 05/28/16 15:39 30 Intake and Output 05/27/16 05/27/16 05/28/16 15:00 23:00 07:00 Intake Total 614.96 ml 630.00 ml 731.48 ml Output Total 750 ml 960 ml 910 ml Balance -135.04 ml -330.00 ml -178.52 ml Exam Neck: non-tender, supple Respiratory: clear to auscultation, normal air movement, other (Patient is on vent) Gastrointestinal: nl liver, spleen, non-tender, other (G-tube site clean tolerating G-tube feeding abdomen is benign), soft Musculoskeletal: nl extremities to inspection, nl gait and stance Extremities: normal pulses Results Result Diagram: 05/28/16 0350 05/28/16 0350 Results 24 hrs Laboratory Tests Test 05/28/16 03:50 White Blood Count 11.6 H Red Blood Count 2.98 L Hemoglobin 8.8 L Hematocrit 27.8 L Mean Corpuscular Volume 93.3 Mean Corpuscular Hemoglobin 29.5 Mean Corpuscular Hemoglobin Concent 31.7 L Red Cell Distribution Width 15.9 H Platelet Count 226 Mean Platelet Volume 11.4 H Neutrophils % 72.0 Lymphocytes % 15.8 Monocytes % 7.1 Eosinophils % 2.8 Basophils % 0.2 Nucleated Red Blood Cells % 0.0 Neutrophils # 8.4 H Lymphocytes # 1.8 Monocytes # 0.8 Eosinophils # 0.3 Basophils # 0.0 Nucleated Red Blood Cells # 0.0 Sodium Level 133 L Potassium Level 4.2 Chloride Level 104 Carbon Dioxide Level 26 Anion Gap 7 L Blood Urea Nitrogen 20 Creatinine 1.04 Glucose Level 152 Calcium Level 7.7 L Medications Medications Current Medications Ondansetron HCl (Zofran Inj) 4 mg Q6H PRN IV NAUSEA AND/OR VOMITING; Start 05/01 at 20:30 Acetaminophen (Tylenol Tab) 650 mg Q6H PRN PO PAIN LEVEL 1-3 OR FEVER Last administered on 05/06/16 08:23; Admin Dose 650 MG; Start 05/01/16 at 20:30 Acetaminophen (Tylenol Supp) 650 mg Q6H PRN [place] PAIN LEVEL 1-3 OR FEVER; Start 05/01/16 at 20:30 Docusate Sodium (Colace) 100 mg Q12H PRN PO CONSTIPATION Last administered on 13:14; Admin Dose 100 MG; Start 05/01/16 at 20:30 Magnesium Hydroxide (Milk Of Mag) 30 ml DAILY PRN PO CONSTIPATION Last administered on 05/03/16 11:52; Admin Dose 30 ML; Start 05/01/16 at 20:30 Bisacodyl (Dulcolax) 5 mg DAILY PRN PO CONSTIPATION; Start 05/01/16 at 20:30 Bisacodyl (Dulcolax Supp) 10 mg DAILY PRN [place] CONSTIPATION; Start 05/01/16 at 20: 30 Sodium Biphosphate/ Sodium Phosphate (Fleet Enema) 133 ml DAILY PRN [place] CONSTIPATION; Start 05/01/16 at 20:30 Pantoprazole (Protonix Iv) 40 mg DAILY@06 IV Last administered on 05/28/16 05: 32; Admin Dose 40 MG; Start 05/02/16 at 06:00 Tamsulosin HCl (Flomax) 0.4 mg HS PO Last administered on 05/27/16 21:19; Admin Dose 0.4 MG; Start 05/03/16 at 21:00 Aspirin (Aspirin) 325 mg DAILY PO Last administered on 05/28/16 08:13; Admin Dose 325 MG; Start 05/04/16 at 09:00; Status Future hold Lorazepam (Ativan) 2 mg Q2 PRN IV AGITATION Last administered on 05/27/16 08:08 ; Admin Dose 2 MG; Start 05/05/16 at 18:00 Morphine Sulfate (morphine) 2 mg Q2H PRN IV PAIN Last administered on 05/27/16 13:35; Admin Dose 2 MG; Start 05/05/16 at 18:00 IV Flush (NS 10 ml) 10 ml PRN PRN IV FLUSH LINE; Start 05/06/16 at 13:00 Potassium Chloride 20 meq 20 meq DAILY NGT Last administered on 05/28/16 08:12 ; Admin Dose 20 MEQ; Start 05/20/16 at 09:30 Piperacillin Sod/ Tazobactam Sod (Zosyn 3.375gm/ 100 ml (Pmx)) 100 ml @ 200 mls /hr Q8 IVPB Last administered on 05/28/16 14:57; Admin Dose 200 MLS/HR; Start 05/20/16 at 14:00 Fluconazole 100 mg 100 mg DAILY PO Last administered on 05/28/16 08:12; Admin Dose 100 MG; Start 05/23/16 at 12:30 Norepinephrine/ Dextrose (Levophed/D5W) 500 ml @ 1.87 mls/hr TITRATE IV ; Start 05/28/16 at 15:00 Midodrine (Proamatine) 10 mg TID GTB ; Start 05/28/16 at 21:00 NEVAEH WOODSON MD May 28, 2016 16:50
[2016-05-28] MEDS: morphine 2 MG INJ IV PRN (18:30)
[2016-05-28] MEDS: TAMSULOSIN (SR) 0.4 MG CAP PO SCH (20:38)
[2016-05-29] VITALS (58 sets, daily range): BP systolic 82–136; BP diastolic 37–95; PULSE 60–112; RESP 13–35
[2016-05-29 04:44] LABS: Allen Test ACCEPTAB; Arterial Base Excess 5.7 mmol/L (-3.0-3); Arterial COHb 0.3 % (0.0-3.0); Arterial Fraction of Oxyhgb 96.6 % (93.0-99.0); Arterial HCO3 27.4 mmol/L (22.0-26.0); Arterial MetHb 0.3 % (0.0-1.5); Arterial Total Hemglobin 11.3 g/dl (12.0-18.0); MODE VENT - AC
[2016-05-29 04:45] LABS: ADD SCAN DIFF NO
[2016-05-29 04:48] LABS: BASOPHIL # 0.1 10^3/ul (0.0-0.1); BASOPHILS % 0.4 % (0.0-2.0); EOSINOPHILS # 0.5 10^3/ul (0.0-0.5); EOSINOPHILS % 4.1 % (0.0-7.0); HEMATOCRIT 27.6 % (42.0-52.0); HEMOGLOBIN 8.9 g/dl (14.0-18.0); LYMPHOCYTES # 2.2 10^3/ul (0.8-2.9); LYMPHOCYTES % 19.6 % (15.0-51.0); MEAN CORPUSCULAR HEMOGLOBIN 29.9 pg (29.0-33.0); MEAN CORPUSCULAR HGB CONC 32.2 g/dl (32.0-37.0); MEAN CORPUSCULAR VOLUME 92.6 fl (82.0-101.0); MEAN PLATELET VOLUME 11.5 fl (7.4-10.4); MONOCYTE # 0.9 10^3/ul (0.3-0.9); MONOCYTES % 7.6 % (0.0-11.0); NEUTROPHIL # 7.5 10^3/ul (1.6-7.5); NEUTROPHILS % 66.2 % (39.0-77.0); PLATELET COUNT 282 10^3/UL (140-415); RED BLOOD COUNT 2.98 10^6/ul (4.70-6.10); RED CELL DISTRIBUTION WIDTH 15.8 % (11.5-14.5); WHITE BLOOD COUNT 11.3 10^3/ul (4.8-10.8)
[2016-05-29 05:13] LABS: POTASSIUM 3.7 mmol/L (3.5-5.1)
[2016-05-29 05:15] LABS: CREATININE 1.05 mg/dl (0.61-1.24)
[2016-05-29] MEDS: PANTOPRAZOLE 40 MG INJ IV SCH (06:49)
[2016-05-29] MEDS: PIPER-TAZO 3.375 GM IV (PMX) 100 ML IVPB SCH (06:49)
[2016-05-29] MEDS ORDERED: SOD CHLORIDE 0.9% 500 ML IV ONE (09:00)
[2016-05-29] MEDS: POTASSIUM CHLORIDE 20 MEQ POWDER FOR ORAL SOLN NGT SCH (09:26)
[2016-05-29] MEDS: ASPIRIN 325 MG TAB PO SCH (09:26)
[2016-05-29] MEDS: FLUCONAZOLE 100 MG TAB PO SCH (09:28)
[2016-05-29] MEDS: MIDODRINE 5 MG TAB GTB SCH ×3 (09:30→21:19)
--- NOTE | 2016-05-29 09:39 | CONS ---
Date/Time of Note Date/Time of Note DATE: 05/29/16 TIME: 09:38 Consult Date/Type/Reason Admit Date/Time May 01, 2016 at 20:18 Initial Consult Date 05/05/16 Type of Consultation: Pulm/CCM Ordering Provider: HOLLI LINDER MD Subjective Patient remains on mechanical ventilation with little sedation Still on low-dose vasopressors Still has profound neurological deficits with neuromuscular weakness Objective Vital Signs Date Time Temp Pulse Resp B/P Pulse Ox O2 Delivery O2 Flow Rate FiO2 05/29/16 09:09 78 18 98 30 05/29/16 08:15 97/40 05/29/16 08:00 97.5 Mechanical Ventilator Intake and Output 05/28/16 05/28/16 05/29/16 15:00 23:00 07:00 Intake Total 523.22 ml 605.61 ml 300 ml Output Total 825 ml 300 ml 1400 ml Balance -301.78 ml 305.61 ml -1100 ml Exam PHYSICAL EXAMINATION GENERAL: Elderly gentleman, tracheostomy on mechanical ventilation VITAL SIGNS: see below. HEENT: Pupils equal, round, and reactive to light. CARDIAC: S1, S2, 2 systolic ejection murmur CHEST: Diminished air entry bilaterally. ABDOMEN: Mildly distended. Bowel sounds present G-tube in place EXTREMITIES: No cyanosis, clubbing edema +1 NEUROLOGIC: Unable to assess Results/Medications Result Diagram: 05/29/16 0412 05/29/16 0412 Results 24 hrs Laboratory Tests Test 05/29/16 04:12 05/29/16 05:00 White Blood Count 11.3 H Red Blood Count 2.98 L Hemoglobin 8.9 L Hematocrit 27.6 L Mean Corpuscular Volume 92.6 Mean Corpuscular Hemoglobin 29.9 Mean Corpuscular Hemoglobin Concent 32.2 Red Cell Distribution Width 15.8 H Platelet Count 282 # Mean Platelet Volume 11.5 H Neutrophils % 66.2 Lymphocytes % 19.6 Monocytes % 7.6 Eosinophils % 4.1 Basophils % 0.4 Nucleated Red Blood Cells % 0.0 Neutrophils # 7.5 Lymphocytes # 2.2 Monocytes # 0.9 Eosinophils # 0.5 Basophils # 0.1 Nucleated Red Blood Cells # 0.0 Sodium Level 135 Potassium Level 3.7 Chloride Level 102 Carbon Dioxide Level 27 Anion Gap 10 Blood Urea Nitrogen 23 H Creatinine 1.05 Glucose Level 126 Lactic Acid Level 1.3 Calcium Level 8.0 L Blood Gas Specimen Source Blood arterial Arterial Blood Date Drawn 05/29/2016 4:30:09 AM Arterial Blood pH (Temp corrected) 7.573 *H Arterial Blood pCO2 (Temp correct) 30.4 L Arterial Blood pO2 (Temp corrected) 89.2 Arterial Blood HCO3 27.4 H Arterial Blood Base Excess 5.7 H Arterial Blood Oxygen Saturation 97.2 Zaid Test ACCEPTAB Arterial Blood Gas Puncture Site Right Radial Arterial Blood Carboxyhemoglobin 0.3 Arterial Blood Methemoglobin 0.3 Blood Gas A-a O2 Differential 89.0 H Oxyhemoglobin Percent 96.6 Total Hemoglobin 11.3 L Blood Gas Temperature 37.0 Blood Gas Respiration Rate 20.0 Blood Gas Actual Respiration Rate 20 Blood Gas Modality VENT - AC FiO2 30.0 Blood Gas Tidal Volume 500.0 Blood Gas Low PEEP Setting 5.0 Blood Gas Inspiratory Pressure 22.0 Blood Gas Critical Value Read Back Sam DIAZ RN Blood Gas Notified Whom MG Blood Gas Notified Time 05/29/2016 4:42:27 AM Medications Current Medications Ondansetron HCl (Zofran Inj) 4 mg Q6H PRN IV NAUSEA AND/OR VOMITING; Start 05/01 at 20:30 Acetaminophen (Tylenol Tab) 650 mg Q6H PRN PO PAIN LEVEL 1-3 OR FEVER Last administered on 05/06/16 08:23; Admin Dose 650 MG; Start 05/01/16 at 20:30 Acetaminophen (Tylenol Supp) 650 mg Q6H PRN [place] PAIN LEVEL 1-3 OR FEVER; Start 05/01/16 at 20:30 Docusate Sodium (Colace) 100 mg Q12H PRN PO CONSTIPATION Last administered on 13:14; Admin Dose 100 MG; Start 05/01/16 at 20:30 Magnesium Hydroxide (Milk Of Mag) 30 ml DAILY PRN PO CONSTIPATION Last administered on 05/03/16 11:52; Admin Dose 30 ML; Start 05/01/16 at 20:30 Bisacodyl (Dulcolax) 5 mg DAILY PRN PO CONSTIPATION; Start 05/01/16 at 20:30 Bisacodyl (Dulcolax Supp) 10 mg DAILY PRN [place] CONSTIPATION; Start 05/01/16 at 20: 30 Sodium Biphosphate/ Sodium Phosphate (Fleet Enema) 133 ml DAILY PRN [place] CONSTIPATION; Start 05/01/16 at 20:30 Pantoprazole (Protonix Iv) 40 mg DAILY@06 IV Last administered on 05/29/16 06: 49; Admin Dose 40 MG; Start 05/02/16 at 06:00 Tamsulosin HCl (Flomax) 0.4 mg HS PO Last administered on 05/28/16 20:38; Admin Dose 0.4 MG; Start 05/03/16 at 21:00 Aspirin (Aspirin) 325 mg DAILY PO Last administered on 05/29/16 09:26; Admin Dose 325 MG; Start 05/04/16 at 09:00; Status Future hold Lorazepam (Ativan) 2 mg Q2 PRN IV AGITATION Last administered on 05/27/16 08:08 ; Admin Dose 2 MG; Start 05/05/16 at 18:00 Morphine Sulfate (morphine) 2 mg Q2H PRN IV PAIN Last administered on 05/28/16 18:30; Admin Dose 2 MG; Start 05/05/16 at 18:00 IV Flush (NS 10 ml) 10 ml PRN PRN IV FLUSH LINE; Start 05/06/16 at 13:00 Potassium Chloride 20 meq 20 meq DAILY NGT Last administered on 05/29/16 09:26 ; Admin Dose 20 MEQ; Start 05/20/16 at 09:30 Piperacillin Sod/ Tazobactam Sod (Zosyn 3.375gm/ 100 ml (Pmx)) 100 ml @ 200 mls /hr Q8 IVPB Last administered on 05/29/16 06:49; Admin Dose 200 MLS/HR; Start 05/20/16 at 14:00 Fluconazole 100 mg 100 mg DAILY PO Last administered on 05/29/16 09:28; Admin Dose 100 MG; Start 05/23/16 at 12:30 Norepinephrine/ Dextrose (Levophed/D5W) 500 ml @ 1.87 mls/hr TITRATE IV ; Start 05/28/16 at 15:00 Midodrine 10 mg 10 mg TID GTB Last administered on 05/29/16 09:30; Admin Dose 10 MG; Start 05/28/16 at 21:00 Sodium Chloride (NS) 500 ml @ 500 mls/hr Q1H ONCE IV Last administered on 09:26; Admin Dose 500 MLS/HR; Start 05/29/16 at 09:00; Stop 05/29/16 at 09:59 Assessment/Plan Chief Complaint/Hosp Course Assessment 1. Hypoxemic and hypercapnic respiratory failure 2. Likely recurrent aspiration 3. Dementia 4. History of dysphagia now with G-tube in place 5. Failure to thrive Plan 1. Continue mechanical ventilation. Tracheostomy site care 2. Continue to feeding as tolerated, GI recommendations 3. Vasopressors as needed, check lactic acid and serum cortisol 4. DVT and GI prophylaxis Disposition Continue ICU care Problems: KAVON TROY MD, [facility] May 29, 2016 09:39
[2016-05-29] MEDS: POTASSIUM CHLORIDE 50 ML IVPB PRN (11:26)
--- NOTE | 2016-05-29 12:31 | CONS ---
Date/Time of Note Date/Time of Note DATE: 05/29/16 TIME: 12:25 Assessment/Plan Assessment/Plan Chief Complaint/Hosp Course IMPRESSION: 1. Respiratory failure s/p now trach 2. 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 negative troponin x 3 this admit. s/p lexsican LVEF 22%/no ischemia/prior SC. Currently improved volume status 3. 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 History of asthma/chronic obstructive pulmonary disease. 6. Glaucoma. 7. History of bradycardia. 8. Hypotension-currrently improved but on midodrine 9. Leukocytosis. 10. Altered mental state. 11. Fevers 12.ARF-improved 14. Anemia-s/p transfusion PRBC's Recc: -Now in ICU -Maintain Tele monitoring -Follow BP closely with possible need to restart pressors -Will hold on re-inititation of lovenox given recent acute drop in Hgb with patient recent receiving transfusion but will continue asa as tolerated -Continue abx's and f/u cx data -Will continue midodrine at this time but would like to wean as tolerated as is pure afterload Problems: Consultation Date/Type/Reason Admit Date/Time May 01, 2016 at 20:18 Initial Consult Date 05/02/16 Type of Consultation: Cardiology Reason for Consultation CHF Referring Provider: HOLLI LINDER MD Exam/Review of Systems Vital Signs Vitals Vital Signs Date Time Temp Pulse Resp B/P Pulse Ox O2 Delivery O2 Flow Rate FiO2 05/29/16 11:20 77 20 98 30 05/29/16 08:15 97/40 05/29/16 08:00 97.5 Mechanical Ventilator Intake and Output 05/28/16 05/28/16 05/29/16 15:00 23:00 07:00 Intake Total 523.22 ml 605.61 ml 300 ml Output Total 825 ml 300 ml 1500 ml Balance -301.78 ml 305.61 ml -1200 ml Exam Review of Systems: CONSTITUTIONAL: No fevers, chills. PULMONARY: intubated CARDIOVASCULAR: No chest pain/palpitations GASTROINTESTINAL: No nausea/vomiting. GENITOURINARY: No hematuria/dysuria. MUSCULOSKELETAL: No myagias/arthalgias. PSYCHIATRIC: The patient denies depression. NEUROLOGIC: No weakness Constitutional: other (sleeping) ENMT: mucosa pink and moist Neck: other (trached) Respiratory: diminished breath sounds (at bases/B) Cardiovascular: regular rate and rhythm Gastrointestinal: non-tender, soft Musculoskeletal: muscle weakness (generalized) Extremities: edema (none) Neurological: other (No focal deficits) Results Result Diagram: 05/29/16 0412 05/29/16 0412 Results 24 hrs Laboratory Tests Test 05/29/16 04:12 05/29/16 05:00 05/29/16 10:05 White Blood Count 11.3 H Red Blood Count 2.98 L Hemoglobin 8.9 L Hematocrit 27.6 L Mean Corpuscular Volume 92.6 Mean Corpuscular Hemoglobin 29.9 Mean Corpuscular Hemoglobin Concent 32.2 Red Cell Distribution Width 15.8 H Platelet Count 282 # Mean Platelet Volume 11.5 H Neutrophils % 66.2 Lymphocytes % 19.6 Monocytes % 7.6 Eosinophils % 4.1 Basophils % 0.4 Nucleated Red Blood Cells % 0.0 Neutrophils # 7.5 Lymphocytes # 2.2 Monocytes # 0.9 Eosinophils # 0.5 Basophils # 0.1 Nucleated Red Blood Cells # 0.0 Sodium Level 135 Potassium Level 3.7 Chloride Level 102 Carbon Dioxide Level 27 Anion Gap 10 Blood Urea Nitrogen 23 H Creatinine 1.05 Glucose Level 126 Lactic Acid Level 1.3 1.1 Calcium Level 8.0 L Blood Gas Specimen Source Blood arterial Arterial Blood Date Drawn 05/29/2016 4:30:09 AM Arterial Blood pH (Temp corrected) 7.573 *H Arterial Blood pCO2 (Temp correct) 30.4 L Arterial Blood pO2 (Temp corrected) 89.2 Arterial Blood HCO3 27.4 H Arterial Blood Base Excess 5.7 H Arterial Blood Oxygen Saturation 97.2 Zaid Test ACCEPTAB Arterial Blood Gas Puncture Site Right Radial Arterial Blood Carboxyhemoglobin 0.3 Arterial Blood Methemoglobin 0.3 Blood Gas A-a O2 Differential 89.0 H Oxyhemoglobin Percent 96.6 Total Hemoglobin 11.3 L Blood Gas Temperature 37.0 Blood Gas Respiration Rate 20.0 Blood Gas Actual Respiration Rate 20 Blood Gas Modality VENT - AC FiO2 30.0 Blood Gas Tidal Volume 500.0 Blood Gas Low PEEP Setting 5.0 Blood Gas Inspiratory Pressure 22.0 Blood Gas Critical Value Read Back Sam DIAZ RN Blood Gas Notified Whom MG Blood Gas Notified Time 05/29/2016 4:42:27 AM Random Cortisol 19.8 Medications Medications Current Medications Ondansetron HCl (Zofran Inj) 4 mg Q6H PRN IV NAUSEA AND/OR VOMITING; Start 05/01 at 20:30 Acetaminophen (Tylenol Tab) 650 mg Q6H PRN PO PAIN LEVEL 1-3 OR FEVER Last administered on 05/06/16 08:23; Admin Dose 650 MG; Start 05/01/16 at 20:30 Acetaminophen (Tylenol Supp) 650 mg Q6H PRN [place] PAIN LEVEL 1-3 OR FEVER; Start 05/01/16 at 20:30 Docusate Sodium (Colace) 100 mg Q12H PRN PO CONSTIPATION Last administered on 13:14; Admin Dose 100 MG; Start 05/01/16 at 20:30 Magnesium Hydroxide (Milk Of Mag) 30 ml DAILY PRN PO CONSTIPATION Last administered on 05/03/16 11:52; Admin Dose 30 ML; Start 05/01/16 at 20:30 Bisacodyl (Dulcolax) 5 mg DAILY PRN PO CONSTIPATION; Start 05/01/16 at 20:30 Bisacodyl (Dulcolax Supp) 10 mg DAILY PRN [place] CONSTIPATION; Start 05/01/16 at 20: 30 Sodium Biphosphate/ Sodium Phosphate (Fleet Enema) 133 ml DAILY PRN [place] CONSTIPATION; Start 05/01/16 at 20:30 Pantoprazole (Protonix Iv) 40 mg DAILY@06 IV Last administered on 05/29/16 06: 49; Admin Dose 40 MG; Start 05/02/16 at 06:00 Tamsulosin HCl (Flomax) 0.4 mg HS PO Last administered on 05/28/16 20:38; Admin Dose 0.4 MG; Start 05/03/16 at 21:00 Aspirin (Aspirin) 325 mg DAILY PO Last administered on 05/29/16 09:26; Admin Dose 325 MG; Start 05/04/16 at 09:00; Status Future hold Lorazepam (Ativan) 2 mg Q2 PRN IV AGITATION Last administered on 05/27/16 08:08 ; Admin Dose 2 MG; Start 05/05/16 at 18:00 Morphine Sulfate (morphine) 2 mg Q2H PRN IV PAIN Last administered on 05/28/16 18:30; Admin Dose 2 MG; Start 05/05/16 at 18:00 IV Flush (NS 10 ml) 10 ml PRN PRN IV FLUSH LINE; Start 05/06/16 at 13:00 Potassium Chloride (Potassium Chloride Pwd/Soln) 20 meq DAILY NGT Last administered on 05/29/16 09:26; Admin Dose 20 MEQ; Start 05/20/16 at 09:30 Fluconazole 100 mg 100 mg DAILY PO Last administered on 05/29/16 09:28; Admin Dose 100 MG; Start 05/23/16 at 12:30 Norepinephrine/ Dextrose (Levophed/D5W) 500 ml @ 1.87 mls/hr TITRATE IV ; Start 05/28/16 at 15:00 Midodrine (Proamatine) 10 mg TID GTB Last administered on 05/29/16 09:30; Admin Dose 10 MG; Start 05/28/16 at 21:00 JAYA GORE May 29, 2016 12:30
--- NOTE | 2016-05-29 14:34 | PN ---
DATE: 05/29/2016 INFECTIOUS DISEASE PROGRESS NOTE SUBJECTIVE: No acute events. The patient is lying comfortably in bed. He is off pressors, afebril e. VITAL SIGNS: Temperature 97.5, pulse 79, respirations 18, blood pressure 97/40, saturation 98 on 30 FIO2. LABORATORY DATA: WBC 11.3, H and H 8.9 and 27.6, platelets 282, neutrophils 66.2, BUN 23, creatinin e 1.05. INDWELLINGS: Trach, PEG, Alfonso, PICC line placed on May 06. ANTIMICROBIALS: The patient is on: 1. Zosyn day #10. 2. Fluconazole. MICROBIOLOGY: Sputum culture grew Emily albicans. PHYSICAL EXAMINATION: GENERAL: This is a fragile, elderly man who is lying comfortably in bed. HEENT: Head atraumatic, normocephalic. Sclerae anicteric. Buccal mucosa dry. NECK: Supple, tracheostomy present. CHEST: Rise symmetrical. Breath sounds diminished to bases. HEART: S1, S2. ABDOMEN: Soft, bowel sounds present. EXTREMITIES: No cyanosis. Trace edema. ASSESSMENT: 1. Resolving sepsis. 2. Resolving pneumonia. 3. Acute respiratory failure. 4. Dysphagia with secretion retention. 5. Dementia. 6. Coronary artery disease, history of permanent pacemaker placement. PLAN: The patient remains stable off pressors. We are going to discontinue antibiotics and observe him. Dictated By: JOSE G CUNNINGHAM [employer] WORKER for RASHIDA CAMPBELL MD NI/NTS Conf#: [id number] DID#: [id number]
--- NOTE | 2016-05-29 19:01 | CONS ---
Date/Time of Note Date/Time of Note DATE: 05/29/16 TIME: 19:00 Assessment/Plan Assessment/Plan Additional Assessment/Plan IMPRESSION: 1. Aspiration pneumonia. 2. Leukocytosis.better 3. Status post pacemaker insertion. 4. Benign prostatic hypertrophy. 5. Legally blind. 6. hypotension ,resolved 7. History of bronchial asthma. 8. 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 dysphagia ,s/p PEG,tolerating feeding 11.respiratory failure on vent 12. Status post trach Plan continue present care Patient is tolerating feeding at 50 cc/h Consultation Date/Type/Reason Admit Date/Time May 01, 2016 at 20:18 Initial Consult Date 05/05/16 Type of Consultation: Cardiology Referring Provider: HOLLI LINDER MD 24 HR Interval Summary Subjective hx not possible: pt non-verbal Constitutional: improved, no complaints Exam/Review of Systems Vital Signs Vitals Vital Signs Date Time Temp Pulse Resp B/P Pulse Ox O2 Delivery O2 Flow Rate FiO2 05/29/16 17:41 60 14 100 30 05/29/16 16:00 98.1 121/55 05/29/16 08:00 Mechanical Ventilator Intake and Output 05/28/16 05/28/16 05/29/16 15:00 23:00 07:00 Intake Total 523.22 ml 605.61 ml 350 ml Output Total 825 ml 300 ml 1500 ml Balance -301.78 ml 305.61 ml -1150 ml Exam Constitutional: alert, oriented, well developed Psych: nl mood/affect, no complaints Head: atraumatic, normocephalic Eyes: EOMI, PERRL, nl conjunctiva, nl lids, nl sclera ENMT: nl external ears & nose, nl lips & teeth, nl nasal mucosa & septum Neck: non-tender, supple Respiratory: clear to auscultation, normal air movement Cardiovascular: nl pulses, regular rate and rhythm Gastrointestinal: nl liver, spleen, non-tender, soft Musculoskeletal: nl extremities to inspection, nl gait and stance Extremities: normal pulses Neurological: 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 II-XII intact, nl mental status, nl speech, nl strength Skin: nl turgor, No rash or lesions Lymph: nl lymph nodes Results Result Diagram: 05/29/16 0412 05/29/16 0412 Results 24 hrs Laboratory Tests Test 05/29/16 04:12 05/29/16 05:00 05/29/16 10:05 White Blood Count 11.3 H Red Blood Count 2.98 L Hemoglobin 8.9 L Hematocrit 27.6 L Mean Corpuscular Volume 92.6 Mean Corpuscular Hemoglobin 29.9 Mean Corpuscular Hemoglobin Concent 32.2 Red Cell Distribution Width 15.8 H Platelet Count 282 # Mean Platelet Volume 11.5 H Neutrophils % 66.2 Lymphocytes % 19.6 Monocytes % 7.6 Eosinophils % 4.1 Basophils % 0.4 Nucleated Red Blood Cells % 0.0 Neutrophils # 7.5 Lymphocytes # 2.2 Monocytes # 0.9 Eosinophils # 0.5 Basophils # 0.1 Nucleated Red Blood Cells # 0.0 Sodium Level 135 Potassium Level 3.7 Chloride Level 102 Carbon Dioxide Level 27 Anion Gap 10 Blood Urea Nitrogen 23 H Creatinine 1.05 Glucose Level 126 Lactic Acid Level 1.3 1.1 Calcium Level 8.0 L Blood Gas Specimen Source Blood arterial Arterial Blood Date Drawn 05/29/2016 4:30:09 AM Arterial Blood pH (Temp corrected) 7.573 *H Arterial Blood pCO2 (Temp correct) 30.4 L Arterial Blood pO2 (Temp corrected) 89.2 Arterial Blood HCO3 27.4 H Arterial Blood Base Excess 5.7 H Arterial Blood Oxygen Saturation 97.2 Zaid Test ACCEPTAB Arterial Blood Gas Puncture Site Right Radial Arterial Blood Carboxyhemoglobin 0.3 Arterial Blood Methemoglobin 0.3 Blood Gas A-a O2 Differential 89.0 H Oxyhemoglobin Percent 96.6 Total Hemoglobin 11.3 L Blood Gas Temperature 37.0 Blood Gas Respiration Rate 20.0 Blood Gas Actual Respiration Rate 20 Blood Gas Modality VENT - AC FiO2 30.0 Blood Gas Tidal Volume 500.0 Blood Gas Low PEEP Setting 5.0 Blood Gas Inspiratory Pressure 22.0 Blood Gas Critical Value Read Back Sam DIAZ RN Blood Gas Notified Whom MG Blood Gas Notified Time 05/29/2016 4:42:27 AM Random Cortisol 19.8 Medications Medications Current Medications Ondansetron HCl (Zofran Inj) 4 mg Q6H PRN IV NAUSEA AND/OR VOMITING; Start 05/01 at 20:30 Acetaminophen (Tylenol Tab) 650 mg Q6H PRN PO PAIN LEVEL 1-3 OR FEVER Last administered on 05/06/16t 08:23; Admin Dose 650 MG; Start 05/01/16 at 20:30 Acetaminophen (Tylenol Supp) 650 mg Q6H PRN [place] PAIN LEVEL 1-3 OR FEVER; Start 05/01/16 at 20:30 Docusate Sodium (Colace) 100 mg Q12H PRN PO CONSTIPATION Last administered on 13:14; Admin Dose 100 MG; Start 05/01/16 at 20:30 Magnesium Hydroxide (Milk Of Mag) 30 ml DAILY PRN PO CONSTIPATION Last administered on 05/03/16 11:52; Admin Dose 30 ML; Start 05/01/16 at 20:30 Bisacodyl (Dulcolax) 5 mg DAILY PRN PO CONSTIPATION; Start 05/01/16 at 20:30 Bisacodyl (Dulcolax Supp) 10 mg DAILY PRN [place] CONSTIPATION; Start 05/01/16 at 20: 30 Sodium Biphosphate/ Sodium Phosphate (Fleet Enema) 133 ml DAILY PRN [place] CONSTIPATION; Start 05/01/16 at 20:30 Pantoprazole (Protonix Iv) 40 mg DAILY@06 IV Last administered on 05/29/16 06: 49; Admin Dose 40 MG; Start 05/02/16 at 06:00 Tamsulosin HCl (Flomax) 0.4 mg HS PO Last administered on 05/28/16 20:38; Admin Dose 0.4 MG; Start 05/03/16 at 21:00 Aspirin (Aspirin) 325 mg DAILY PO Last administered on 05/29/16 09:26; Admin Dose 325 MG; Start 05/04/16 at 09:00; Status Future hold Lorazepam (Ativan) 2 mg Q2 PRN IV AGITATION Last administered on 05/27/16 08:08 ; Admin Dose 2 MG; Start 05/05/16 at 18:00 Morphine Sulfate (morphine) 2 mg Q2H PRN IV PAIN Last administered on 05/28/16 18:30; Admin Dose 2 MG; Start 05/05/16 at 18:00 IV Flush (NS 10 ml) 10 ml PRN PRN IV FLUSH LINE; Start 05/06/16 at 13:00 Potassium Chloride (Potassium Chloride Pwd/Soln) 20 meq DAILY NGT Last administered on 05/29/16 09:26; Admin Dose 20 MEQ; Start 05/20/16 at 09:30 Fluconazole 100 mg 100 mg DAILY PO Last administered on 05/29/16 09:28; Admin Dose 100 MG; Start 05/23/16 at 12:30 Norepinephrine/ Dextrose (Levophed/D5W) 500 ml @ 1.87 mls/hr TITRATE IV ; Start 05/28/16 at 15:00 Midodrine (Proamatine) 10 mg TID GTB Last administered on 05/29/16 12:27; Admin Dose 10 MG; Start 05/28/16 at 21:00 NEVAEH WOODSON MD May 29, 2016 19:01
--- NOTE | 2016-05-29 19:06 | PN ---
Date/Time of Note Date/Time of Note DATE: 05/29/16 TIME: 19:05 Assessment/Plan VTE Prophylaxis VTE Prophylaxis Intervention: other Lines/Catheters IV [facility]from [facility] Saline Lock Urinary Cath still in place: Yes Reason Cath still needed: other (indicate) Assessment/Plan Chief Complaint/Hosp Course IMPRESSION: The patient has 1. ACUTE RES FAILURE on vent 2. hypernatremia better 3. Hypertension. 4. anxiety 5. PACEMAKER HX 6 low ef 7 leucocytosis 8 RHINA 9 VDRF 10 SEPSIS 11 s/p peg plan bmp per id and pulmonary d/w family off pressor tele Problems: Subjective 24 Hr Interval Summary Subjective hx not possible: other (on vent) Exam/Review of Systems Vital Signs Vitals Vital Signs Date Time Temp Pulse Resp B/P Pulse Ox O2 Delivery O2 Flow Rate FiO2 05/29/16 17:41 60 14 100 30 05/29/16 16:00 98.1 121/55 05/29/16 08:00 Mechanical Ventilator Intake and Output 05/28/16 05/28/16 05/29/16 15:00 23:00 07:00 Intake Total 523.22 ml 605.61 ml 350 ml Output Total 825 ml 300 ml 1500 ml Balance -301.78 ml 305.61 ml -1150 ml Exam Neck: supple Respiratory: clear to auscultation Cardiovascular: regular rate and rhythm Gastrointestinal: soft Musculoskeletal: nl extremities to inspection Extremities: normal pulses Results Result Diagram: 05/29/16 0412 05/29/16 0412 Results 24 hrs Laboratory Tests Test 05/29/16 04:12 05/29/16 05:00 05/29/16 10:05 White Blood Count 11.3 H Red Blood Count 2.98 L Hemoglobin 8.9 L Hematocrit 27.6 L Mean Corpuscular Volume 92.6 Mean Corpuscular Hemoglobin 29.9 Mean Corpuscular Hemoglobin Concent 32.2 Red Cell Distribution Width 15.8 H Platelet Count 282 # Mean Platelet Volume 11.5 H Neutrophils % 66.2 Lymphocytes % 19.6 Monocytes % 7.6 Eosinophils % 4.1 Basophils % 0.4 Nucleated Red Blood Cells % 0.0 Neutrophils # 7.5 Lymphocytes # 2.2 Monocytes # 0.9 Eosinophils # 0.5 Basophils # 0.1 Nucleated Red Blood Cells # 0.0 Sodium Level 135 Potassium Level 3.7 Chloride Level 102 Carbon Dioxide Level 27 Anion Gap 10 Blood Urea Nitrogen 23 H Creatinine 1.05 Glucose Level 126 Lactic Acid Level 1.3 1.1 Calcium Level 8.0 L Blood Gas Specimen Source Blood arterial Arterial Blood Date Drawn 05/29/2016 4:30:09 AM Arterial Blood pH (Temp corrected) 7.573 *H Arterial Blood pCO2 (Temp correct) 30.4 L Arterial Blood pO2 (Temp corrected) 89.2 Arterial Blood HCO3 27.4 H Arterial Blood Base Excess 5.7 H Arterial Blood Oxygen Saturation 97.2 Zaid Test ACCEPTAB Arterial Blood Gas Puncture Site Right Radial Arterial Blood Carboxyhemoglobin 0.3 Arterial Blood Methemoglobin 0.3 Blood Gas A-a O2 Differential 89.0 H Oxyhemoglobin Percent 96.6 Total Hemoglobin 11.3 L Blood Gas Temperature 37.0 Blood Gas Respiration Rate 20.0 Blood Gas Actual Respiration Rate 20 Blood Gas Modality VENT - AC FiO2 30.0 Blood Gas Tidal Volume 500.0 Blood Gas Low PEEP Setting 5.0 Blood Gas Inspiratory Pressure 22.0 Blood Gas Critical Value Read Back Sam DIAZ RN Blood Gas Notified Whom MG Blood Gas Notified Time 05/29/2016 4:42:27 AM Random Cortisol 19.8 Medications Medications Current Medications Ondansetron HCl (Zofran Inj) 4 mg Q6H PRN IV NAUSEA AND/OR VOMITING; Start 05/01 at 20:30 Acetaminophen (Tylenol Tab) 650 mg Q6H PRN PO PAIN LEVEL 1-3 OR FEVER Last administered on 05/06/16 08:23; Admin Dose 650 MG; Start 05/01/16 at 20:30 Acetaminophen (Tylenol Supp) 650 mg Q6H PRN [place] PAIN LEVEL 1-3 OR FEVER; Start 05/01/16 at 20:30 Docusate Sodium (Colace) 100 mg Q12H PRN PO CONSTIPATION Last administered on 13:14; Admin Dose 100 MG; Start 05/01/16 at 20:30 Magnesium Hydroxide (Milk Of Mag) 30 ml DAILY PRN PO CONSTIPATION Last administered on 05/03/16 11:52; Admin Dose 30 ML; Start 05/01/16 at 20:30 Bisacodyl (Dulcolax) 5 mg DAILY PRN PO CONSTIPATION; Start 05/01/16 at 20:30 Bisacodyl (Dulcolax Supp) 10 mg DAILY PRN [place] CONSTIPATION; Start 05/01/16 at 20: 30 Sodium Biphosphate/ Sodium Phosphate (Fleet Enema) 133 ml DAILY PRN [place] CONSTIPATION; Start 05/01/16 at 20:30 Pantoprazole (Protonix Iv) 40 mg DAILY@06 IV Last administered on 05/29/16 06: 49; Admin Dose 40 MG; Start 05/02/16 at 06:00 Tamsulosin HCl (Flomax) 0.4 mg HS PO Last administered on 05/28/16 20:38; Admin Dose 0.4 MG; Start 05/03/16 at 21:00 Aspirin (Aspirin) 325 mg DAILY PO Last administered on 05/29/16 09:26; Admin Dose 325 MG; Start 05/04/16 at 09:00; Status Future hold Lorazepam (Ativan) 2 mg Q2 PRN IV AGITATION Last administered on 05/27/16 08:08 ; Admin Dose 2 MG; Start 05/05/16 at 18:00 Morphine Sulfate (morphine) 2 mg Q2H PRN IV PAIN Last administered on 05/28/16 18:30; Admin Dose 2 MG; Start 05/05/16 at 18:00 IV Flush (NS 10 ml) 10 ml PRN PRN IV FLUSH LINE; Start 05/06/16 at 13:00 Potassium Chloride (Potassium Chloride Pwd/Soln) 20 meq DAILY NGT Last administered on 05/29/16 09:26; Admin Dose 20 MEQ; Start 05/20/16 at 09:30 Fluconazole (Diflucan) 100 mg DAILY PO Last administered on 05/29/16 09:28; Admin Dose 100 MG; Start 05/23/16 at 12:30 Midodrine (Proamatine) 10 mg TID GTB Last administered on 05/29/16 12:27; Admin Dose 10 MG; Start 05/28/16 at 21:00 HOLLI LINDER MD May 29, 2016 19:06
[2016-05-29] MEDS: TAMSULOSIN (SR) 0.4 MG CAP PO SCH (21:19)
--- NOTE | 2016-05-29 22:20 | PN ---
Date/Time of Note Date/Time of Note DATE: 05/29/16 TIME: 22:19 Assessment/Plan Lines/Catheters IV Catheter Type (from Nrsg): Saline Lock Alfonso in Place (from Nrsg): Yes Assessment/Plan Chief Complaint/Hosp Course IMPRESSION: Respiratory failure, unable to clear secretions, multiple bouts of pneumonia. Sp Tracheostomy RECOMMENDATIONS: pulm toilet trach care. Discussed with the nursing staff. Problems: Subjective 24 Hr Interval Summary Constitutional: improved Pain Control: mild Exam/Review of Systems Vital Signs Vitals Vital Signs Date Time Temp Pulse Resp B/P Pulse Ox O2 Delivery O2 Flow Rate FiO2 05/29/16 20:00 65 05/29/16 17:41 14 100 30 05/29/16 16:00 98.1 121/55 05/29/16 08:00 Mechanical Ventilator Intake and Output 05/28/16 05/28/16 05/29/16 15:00 23:00 07:00 Intake Total 523.22 ml 605.61 ml 350 ml Output Total 825 ml 300 ml 1500 ml Balance -301.78 ml 305.61 ml -1150 ml Exam Neck: non-tender, supple Respiratory: clear to auscultation, normal air movement Cardiovascular: nl pulses, regular rate and rhythm Gastrointestinal: nl liver, spleen, non-tender, soft Results Result Diagram: 05/29/16 0412 05/29/16 0412 JO ANN KING MD May 29, 2016 22:20
[2016-05-30] VITALS (53 sets, daily range): BP systolic 86–142; BP diastolic 37–68; PULSE 60–91; RESP 12–46
[2016-05-30 04:55] LABS: ADD SCAN DIFF NO
[2016-05-30 05:29] LABS: BASOPHIL # 0.1 10^3/ul (0.0-0.1); BASOPHILS % 0.5 % (0.0-2.0); EOSINOPHILS # 0.6 10^3/ul (0.0-0.5); EOSINOPHILS % 5.8 % (0.0-7.0); HEMATOCRIT 26.5 % (42.0-52.0); HEMOGLOBIN 8.4 g/dl (14.0-18.0); LYMPHOCYTES # 1.9 10^3/ul (0.8-2.9); LYMPHOCYTES % 19.3 % (15.0-51.0); MEAN CORPUSCULAR HEMOGLOBIN 29.6 pg (29.0-33.0); MEAN CORPUSCULAR HGB CONC 31.7 g/dl (32.0-37.0); MEAN CORPUSCULAR VOLUME 93.3 fl (82.0-101.0); MEAN PLATELET VOLUME 11.6 fl (7.4-10.4); MONOCYTE # 0.8 10^3/ul (0.3-0.9); NEUTROPHIL # 6.3 10^3/ul (1.6-7.5); NEUTROPHILS % 64.3 % (39.0-77.0); PLATELET COUNT 297 10^3/UL (140-415); RED BLOOD COUNT 2.84 10^6/ul (4.70-6.10); RED CELL DISTRIBUTION WIDTH 15.6 % (11.5-14.5); WHITE BLOOD COUNT 9.8 10^3/ul (4.8-10.8)
[2016-05-30] MEDS: PANTOPRAZOLE 40 MG INJ IV SCH (05:30)
[2016-05-30 05:31] LABS: CREATININE 0.96 mg/dl (0.61-1.24)
[2016-05-30 05:32] LABS: CALCIUM 7.8 mg/dl (8.4-10.2); MAGNESIUM 1.9 mg/dl (1.7-2.5)
--- NOTE | 2016-05-30 08:53 | RADRPT ---
PROCEDURE: Chest Radiograph. CLINICAL INDICATION: Pneumonia. CHF. TECHNIQUE: Single frontal chest radiograph. COMPARISON: Chest radiograph 05/27/2016 FINDINGS: A tracheostomy tube remains in place. A right chest wall dual lead implantable pacer is unchanged. A left upper extremity PICC is stable. The heart is magnified. Atherosclerotic calcifications are present. Lung volumes are decreased in there is basilar atelectasis. There is a questionable super imposed left basilar infiltrate.. The bones are intact. IMPRESSION: 1. Questionable left basilar infiltrate compatible with pneumonia given history of pneumonia. 2. Low lung volumes with basilar atelectasis. 3. Atherosclerotic vascular disease. RPTAT: KK .Bert Noyola MD, MD Date Time Electronically viewed and signed by .Bert Noyola MD, on 05/30/2016 08:52 .B/
--- NOTE | 2016-05-30 08:55 | CONS ---
Date/Time of Note Date/Time of Note DATE: 05/30/16 TIME: 08:53 Assessment/Plan Assessment/Plan Additional Assessment/Plan Ventilator settings; assist control of 14, tidal volume 500, PEEP of 5, 30% FiO2. Assessment recommendations; next 1. Patient admitted for respiratory failure with recurrence requiring a tracheostomy eventually. 2. Status post G-tube placement. 3. Dementia. 3. Status post pneumonia. Continue current supportive care. Switch the patient to CPAP with pressure support of 14 as tolerated. Patient will be transferred to rehab center soon. Overall prognosis remains poor. Consultation Date/Type/Reason Admit Date/Time May 01, 2016 at 20:18 Initial Consult Date 05/05/16 Type of Consultation: Pulmonary/critical care Referring Provider: HOLLI LINDER MD 24 HR Interval Summary Free Text/Dictation Patient condition remains critical. Underwent tracheostomy. Patient is somewhat arousable. Has remained hemodynamically stable. General exam; elderly male, on ventilator via tracheostomy currently in no distress. Exam/Review of Systems Vital Signs Vitals Vital Signs Date Time Temp Pulse Resp B/P Pulse Ox O2 Delivery O2 Flow Rate FiO2 05/30/16 08:27 68 22 99 30 05/30/16 06:15 105/55 05/30/16 04:17 98.1 05/29/16 08:00 Mechanical Ventilator Intake and Output 05/29/16 05/29/16 05/30/16 14:59 22:59 06:59 Intake Total 650 ml 450 ml 650 ml Output Total 1025 ml 960 ml 1100 ml Balance -375 ml -510 ml -450 ml Exam H EENT exam; supple neck, no JVD. No lymphadenopathy. Midline trachea. Has bilateral corneal opacities. Patient is edentulous. Tracheostomy in place with clean insertion site. Chest examination; diminished but clear breath sounds bilaterally. S1-S2 audible, no murmurs. Regular rhythm. Abdomen examination; soft, nondistended. No organomegaly. G-tube in place. Bowel is audible. Extremity exam is; no peripheral edema. 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 Still exhibiting profound muscular weakness. Results Result Diagram: 05/30/16 0400 05/30/16 0400 Results 24 hrs Laboratory Tests Test 05/29/16 10:05 05/30/16 04:00 Lactic Acid Level 1.1 Random Cortisol 19.8 White Blood Count 9.8 Red Blood Count 2.84 L Hemoglobin 8.4 L Hematocrit 26.5 L Mean Corpuscular Volume 93.3 Mean Corpuscular Hemoglobin 29.6 Mean Corpuscular Hemoglobin Concent 31.7 L Red Cell Distribution Width 15.6 H Platelet Count 297 Mean Platelet Volume 11.6 H Neutrophils % 64.3 Lymphocytes % 19.3 Monocytes % 8.0 Eosinophils % 5.8 Basophils % 0.5 Nucleated Red Blood Cells % 0.0 Neutrophils # 6.3 Lymphocytes # 1.9 Monocytes # 0.8 Eosinophils # 0.6 H Basophils # 0.1 Nucleated Red Blood Cells # 0.0 Sodium Level 133 L Potassium Level 4.0 Chloride Level 105 Carbon Dioxide Level 25 Anion Gap 7 L Blood Urea Nitrogen 22 H Creatinine 0.96 Glucose Level 125 Calcium Level 7.8 L Phosphorus Level 3.0 Magnesium Level 1.9 Medications Medications Current Medications Ondansetron HCl (Zofran Inj) 4 mg Q6H PRN IV NAUSEA AND/OR VOMITING; Start 05/01 at 20:30 Acetaminophen (Tylenol Tab) 650 mg Q6H PRN PO PAIN LEVEL 1-3 OR FEVER Last administered on 05/06/16 08:23; Admin Dose 650 MG; Start 05/01/16 at 20:30 Acetaminophen (Tylenol Supp) 650 mg Q6H PRN [place] PAIN LEVEL 1-3 OR FEVER; Start 05/01/16 at 20:30 Docusate Sodium (Colace) 100 mg Q12H PRN PO CONSTIPATION Last administered on 13:14; Admin Dose 100 MG; Start 05/01/16 at 20:30 Magnesium Hydroxide (Milk Of Mag) 30 ml DAILY PRN PO CONSTIPATION Last administered on 05/03/16 11:52; Admin Dose 30 ML; Start 05/01/16 at 20:30 Bisacodyl (Dulcolax) 5 mg DAILY PRN PO CONSTIPATION; Start 05/01/16 at 20:30 Bisacodyl (Dulcolax Supp) 10 mg DAILY PRN [place] CONSTIPATION; Start 05/01/16 at 20: 30 Sodium Biphosphate/ Sodium Phosphate (Fleet Enema) 133 ml DAILY PRN [place] CONSTIPATION; Start 05/01/16 at 20:30 Pantoprazole (Protonix Iv) 40 mg DAILY@06 IV Last administered on 05/30/16 05: 30; Admin Dose 40 MG; Start 05/02/16 at 06:00 Tamsulosin HCl (Flomax) 0.4 mg HS PO Last administered on 05/29/16 21:19; Admin Dose 0.4 MG; Start 05/03/16 at 21:00 Aspirin (Aspirin) 325 mg DAILY PO Last administered on 05/29/16 09:26; Admin Dose 325 MG; Start 05/04/16 at 09:00; Status Future hold Lorazepam (Ativan) 2 mg Q2 PRN IV AGITATION Last administered on 05/27/16 08:08 ; Admin Dose 2 MG; Start 05/05/16 at 18:00 Morphine Sulfate (morphine) 2 mg Q2H PRN IV PAIN Last administered on 05/28/16 18:30; Admin Dose 2 MG; Start 05/05/16 at 18:00 IV Flush (NS 10 ml) 10 ml PRN PRN IV FLUSH LINE; Start 05/06/16 at 13:00 Potassium Chloride (Potassium Chloride Pwd/Soln) 20 meq DAILY NGT Last administered on 05/29/16 09:26; Admin Dose 20 MEQ; Start 05/20/16 at 09:30 Fluconazole (Diflucan) 100 mg DAILY PO Last administered on 05/29/16 09:28; Admin Dose 100 MG; Start 05/23/16 at 12:30 Midodrine (Proamatine) 10 mg TID GTB Last administered on 05/29/16 21:19; Admin Dose 10 MG; Start 05/28/16 at 21:00 GERALDINE CUNNINGHAM May 30, 2016 08:55
[2016-05-30] MEDS: ASPIRIN 325 MG TAB PO SCH (09:47)
[2016-05-30] MEDS: FLUCONAZOLE 100 MG TAB PO SCH (09:47)
[2016-05-30] MEDS: MIDODRINE 5 MG TAB GTB SCH ×3 (09:47→21:54)
[2016-05-30] MEDS: POTASSIUM CHLORIDE 20 MEQ POWDER FOR ORAL SOLN NGT SCH (09:47)
--- NOTE | 2016-05-30 12:00 | CONS ---
Date/Time of Note Date/Time of Note DATE: 05/30/16 TIME: 11:58 Assessment/Plan Assessment/Plan Chief Complaint/Hosp Course SUBJECTIVE: No acute events, looks comfortable, no fevers INDWELLINGS: Endotracheal tube, PEG, Alfonso, PICC line placed on 05/06/2016. ANTIMICROBIALS: Diflucan s/p Zosyn. PHYSICAL EXAMINATION: GENERAL: This is a chronically ill-appearing, elderly man who is lying comfortably in bed. HEENT: Head atraumatic, normocephalic. Sclerae anicteric. Buccal mucosa dry. NECK: Supple. CHEST: Rise symmetrical. Breath sounds diminished with scattered crackles to bases. HEART: S1, S2. ABDOMEN: Soft, bowel tones present. EXTREMITIES: Without cyanosis, mottled and cold to touch. ASSESSMENT: 1. S/p septic shock. 2. S/p recurrent pneumonia, possibly aspiration type. 3. Dysphagia==> s/p PEG 4. Respiratory failure. 5. Paroxysmal atrial fibrillation status post permanent pacemaker. PLAN: Remains stable off pressors, continue Diflucan for couple more days, vent per pulmonary. DW staff Problems: Consultation Date/Type/Reason Admit Date/Time May 01, 2016 at 20:18 Initial Consult Date 05/05/16 Type of Consultation: ID Referring Provider: HOLLI LINDER MD Exam/Review of Systems Vital Signs Vitals Vital Signs Date Time Temp Pulse Resp B/P Pulse Ox O2 Delivery O2 Flow Rate FiO2 05/30/16 10:35 60 46 96 30 05/30/16 06:15 105/55 05/30/16 04:17 98.1 05/29/16 08:00 Mechanical Ventilator Intake and Output 05/29/16 05/29/16 05/30/16 15:00 23:00 07:00 Intake Total 650 ml 400 ml 650 ml Output Total 1125 ml 760 ml 1100 ml Balance -475 ml -360 ml -450 ml Results Result Diagram: 05/30/16 0400 05/30/16 0400 Results 24 hrs Laboratory Tests Test 05/30/16 04:00 White Blood Count 9.8 Red Blood Count 2.84 L Hemoglobin 8.4 L Hematocrit 26.5 L Mean Corpuscular Volume 93.3 Mean Corpuscular Hemoglobin 29.6 Mean Corpuscular Hemoglobin Concent 31.7 L Red Cell Distribution Width 15.6 H Platelet Count 297 Mean Platelet Volume 11.6 H Neutrophils % 64.3 Lymphocytes % 19.3 Monocytes % 8.0 Eosinophils % 5.8 Basophils % 0.5 Nucleated Red Blood Cells % 0.0 Neutrophils # 6.3 Lymphocytes # 1.9 Monocytes # 0.8 Eosinophils # 0.6 H Basophils # 0.1 Nucleated Red Blood Cells # 0.0 Sodium Level 133 L Potassium Level 4.0 Chloride Level 105 Carbon Dioxide Level 25 Anion Gap 7 L Blood Urea Nitrogen 22 H Creatinine 0.96 Glucose Level 125 Calcium Level 7.8 L Phosphorus Level 3.0 Magnesium Level 1.9 Medications Medications Current Medications Ondansetron HCl (Zofran Inj) 4 mg Q6H PRN IV NAUSEA AND/OR VOMITING; Start 05/01 at 20:30 Acetaminophen (Tylenol Tab) 650 mg Q6H PRN PO PAIN LEVEL 1-3 OR FEVER Last administered on 05/06/16 08:23; Admin Dose 650 MG; Start 05/01/16 at 20:30 Acetaminophen (Tylenol Supp) [address] PAIN LEVEL 1-3 OR FEVER; Start 05/01/16 at 20:30 Docusate Sodium (Colace) 100 mg Q12H PRN PO CONSTIPATION Last administered on 13:14; Admin Dose 100 MG; Start 05/01/16 at 20:30 Magnesium Hydroxide (Milk Of Mag) 30 ml DAILY PRN PO CONSTIPATION Last administered on 05/03/16 11:52; Admin Dose 30 ML; Start 05/01/16 at 20:30 Bisacodyl (Dulcolax) 5 mg DAILY PRN PO CONSTIPATION; Start 05/01/16 at 20:30 Bisacodyl (Dulcolax Supp) [address] CONSTIPATION; Start 05/01/16 at 20: 30 Sodium Biphosphate/ Sodium Phosphate (Fleet Enema) [address] CONSTIPATION; Start 05/01/16 at 20:30 Pantoprazole (Protonix Iv) 40 mg DAILY@06 IV Last administered on 05/30/16 05: 30; Admin Dose 40 MG; Start 05/02/16 at 06:00 Tamsulosin HCl (Flomax) 0.4 mg HS PO Last administered on 05/29/16 21:19; Admin Dose 0.4 MG; Start 05/03/16 at 21:00 Aspirin (Aspirin) 325 mg DAILY PO Last administered on 05/30/16 09:47; Admin Dose 325 MG; Start 05/04/16 at 09:00; Status Future hold Lorazepam (Ativan) 2 mg Q2 PRN IV AGITATION Last administered on 05/27/16 08:08 ; Admin Dose 2 MG; Start 05/05/16 at 18:00 Morphine Sulfate (morphine) 2 mg Q2H PRN IV PAIN Last administered on 05/28/16 18:30; Admin Dose 2 MG; Start 05/05/16 at 18:00 IV Flush (NS 10 ml) 10 ml PRN PRN IV FLUSH LINE; Start 05/06/16 at 13:00 Potassium Chloride (Potassium Chloride Pwd/Soln) 20 meq DAILY NGT Last administered on 05/30/16 09:47; Admin Dose 20 MEQ; Start 05/20/16 at 09:30 Fluconazole (Diflucan) 100 mg DAILY PO Last administered on 05/30/16 09:47; Admin Dose 100 MG; Start 05/23/16 at 12:30 Midodrine (Proamatine) 10 mg TID GTB Last administered on 05/30/16 09:47; Admin Dose 10 MG; Start 05/28/16 at 21:00 JOSE G CUNNINGHAM NP May 30, 2016 12:00
--- NOTE | 2016-05-30 15:57 | CONS ---
Date/Time of Note Date/Time of Note DATE: 05/30/16 TIME: 15:54 Assessment/Plan Assessment/Plan Additional Assessment/Plan 1. Respiratory failure s/p now trach - con't resp Rx 2. 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 negative troponin x 3 this admit. s/p lexsican LVEF 22%/no ischemia/prior NE. Currently improved volume status - better fluid staus. 3. Permanent pacemaker- no signs of dysfunction - paced now. 4. 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 History of asthma/chronic obstructive pulmonary disease. 6. Glaucoma. 7. History of bradycardia - pacer with good function 8. Hypotension-currrently improved but on midodrine 9. Leukocytosis. 10. Altered mental state. 11. Fevers 12.ARF-improved 14. Anemia-s/p transfusion PRBC's Consultation Date/Type/Reason Admit Date/Time May 01, 2016 at 20:18 Initial Consult Date 05/05/16 Type of Consultation: ID Referring Provider: HOLLI LINDER MD 24 HR Interval Summary Free Text/Dictation No acute events. BP stable - con't MEd rx . ROS: No fever, no chills, no nausea, no vomiting, no diarrhea/constipation No recent weight changes No chest pain, no PND, no orthopnea No dizziness, blurred vision No thirst, no heat or cold intolerance (per nurse) Exam/Review of Systems Vital Signs Vitals Vital Signs Date Time Temp Pulse Resp B/P Pulse Ox O2 Delivery O2 Flow Rate FiO2 05/30/16 15:25 60 18 100 30 05/30/16 06:15 105/55 05/30/16 04:17 98.1 05/29/16 08:00 Mechanical Ventilator Intake and Output 05/29/16 05/29/16 05/30/16 15:00 23:00 07:00 Intake Total 650 ml 400 ml 650 ml Output Total 1125 ml 760 ml 1100 ml Balance -475 ml -360 ml -450 ml Exam General: WN/WD/NAD, AOx 0 HEENT: Unicetric/atraumatic/EOMI (does not follow commands) NECK: JVD elevated, sandee Lymph: no lymphadenopathy HEART: regular with no S3, II/ systolic murmur at apex LUNGS: Coarse sounds ABD: soft, NT, ND, +BS : Intact Neuro: non focal SKIN: chronic changes EXT: trace edema Results Result Diagram: 05/30/16 0400 05/30/16 0400 Results 24 hrs Laboratory Tests Test 05/30/16 04:00 White Blood Count 9.8 Red Blood Count 2.84 L Hemoglobin 8.4 L Hematocrit 26.5 L Mean Corpuscular Volume 93.3 Mean Corpuscular Hemoglobin 29.6 Mean Corpuscular Hemoglobin Concent 31.7 L Red Cell Distribution Width 15.6 H Platelet Count 297 Mean Platelet Volume 11.6 H Neutrophils % 64.3 Lymphocytes % 19.3 Monocytes % 8.0 Eosinophils % 5.8 Basophils % 0.5 Nucleated Red Blood Cells % 0.0 Neutrophils # 6.3 Lymphocytes # 1.9 Monocytes # 0.8 Eosinophils # 0.6 H Basophils # 0.1 Nucleated Red Blood Cells # 0.0 Sodium Level 133 L Potassium Level 4.0 Chloride Level 105 Carbon Dioxide Level 25 Anion Gap 7 L Blood Urea Nitrogen 22 H Creatinine 0.96 Glucose Level 125 Calcium Level 7.8 L Phosphorus Level 3.0 Magnesium Level 1.9 Medications Medications Current Medications Ondansetron HCl (Zofran Inj) 4 mg Q6H PRN IV NAUSEA AND/OR VOMITING; Start 05/01 at 20:30 Acetaminophen (Tylenol Tab) 650 mg Q6H PRN PO PAIN LEVEL 1-3 OR FEVER Last administered on 05/06/16 08:23; Admin Dose 650 MG; Start 05/01/16 at 20:30 Acetaminophen (Tylenol Supp) 650 mg Q6H PRN [place] PAIN LEVEL 1-3 OR FEVER; Start 05/01/16 at 20:30 Docusate Sodium (Colace) 100 mg Q12H PRN PO CONSTIPATION Last administered on 13:14; Admin Dose 100 MG; Start 05/01/16 at 20:30 Magnesium Hydroxide (Milk Of Mag) 30 ml DAILY PRN PO CONSTIPATION Last administered on 05/03/16 11:52; Admin Dose 30 ML; Start 05/01/16 at 20:30 Bisacodyl (Dulcolax) 5 mg DAILY PRN PO CONSTIPATION; Start 05/01/16 at 20:30 Bisacodyl (Dulcolax Supp) 10 mg DAILY PRN [place] CONSTIPATION; Start 05/01/16 at 20: 30 Sodium Biphosphate/ Sodium Phosphate (Fleet Enema) 133 ml DAILY PRN [place] CONSTIPATION; Start 05/01/16 at 20:30 Pantoprazole (Protonix Iv) 40 mg DAILY@06 IV Last administered on 05/30/16 05: 30; Admin Dose 40 MG; Start 05/02/16 at 06:00 Tamsulosin HCl (Flomax) 0.4 mg HS PO Last administered on 05/29/16 21:19; Admin Dose 0.4 MG; Start 05/03/16 at 21:00 Aspirin (Aspirin) 325 mg DAILY PO Last administered on 05/30/16 09:47; Admin Dose 325 MG; Start 05/04/16 at 09:00; Status Future hold Lorazepam (Ativan) 2 mg Q2 PRN IV AGITATION Last administered on 05/27/16 08:08 ; Admin Dose 2 MG; Start 05/05/16 at 18:00 Morphine Sulfate (morphine) 2 mg Q2H PRN IV PAIN Last administered on 05/28/16 18:30; Admin Dose 2 MG; Start 05/05/16 at 18:00 IV Flush (NS 10 ml) 10 ml PRN PRN IV FLUSH LINE; Start 05/06/16 at 13:00 Potassium Chloride (Potassium Chloride Pwd/Soln) 20 meq DAILY NGT Last administered on 05/30/16 09:47; Admin Dose 20 MEQ; Start 05/20/16 at 09:30 Fluconazole (Diflucan) 100 mg DAILY PO Last administered on 05/30/16 09:47; Admin Dose 100 MG; Start 05/23/16 at 12:30 Midodrine (Proamatine) 10 mg TID GTB Last administered on 05/30/16 14:09; Admin Dose 10 MG; Start 05/28/16 at 21:00 ZEUS CHAPPELL MD May 30, 2016 15:57
--- NOTE | 2016-05-30 19:10 | PN ---
Date/Time of Note Date/Time of Note DATE: 05/30/16 TIME: 19:10 Assessment/Plan Lines/Catheters IV Catheter Type (from Nrsg): PICC Line Alfonso in Place (from Nrsg): Yes Assessment/Plan Chief Complaint/Hosp Course IMPRESSION: Respiratory failure, unable to clear secretions, multiple bouts of pneumonia. Sp Tracheostomy RECOMMENDATIONS: pulm toilet trach care. Discussed with the nursing staff. Problems: Subjective 24 Hr Interval Summary Constitutional: improved Pain Control: mild Exam/Review of Systems Vital Signs Vitals Vital Signs Date Time Temp Pulse Resp B/P Pulse Ox O2 Delivery O2 Flow Rate FiO2 05/30/16 18:00 60 31 108/47 100 Mechanical Ventilator 05/30/16 17:35 30 05/30/16 16:30 98.7 Intake and Output 05/29/16 05/29/16 05/30/16 15:00 23:00 07:00 Intake Total 650 ml 400 ml 700 ml Output Total 1125 ml 760 ml 1175 ml Balance -475 ml -360 ml -475 ml Exam Neck: non-tender, supple Respiratory: clear to auscultation, normal air movement Cardiovascular: nl pulses, regular rate and rhythm Gastrointestinal: nl liver, spleen, non-tender, soft Results Result Diagram: 05/30/1639905/30/16399 JO ANN KING MD May 30, 2016 19:10
--- NOTE | 2016-05-30 19:12 | CONS ---
Date/Time of Note Date/Time of Note DATE: 05/30/16 TIME: 19:12 Assessment/Plan Assessment/Plan Additional Assessment/Plan Additional Assessment/Plan IMPRESSION: 1. Aspiration pneumonia. 2. Leukocytosis.better 3. Status post pacemaker insertion. 4. Benign prostatic hypertrophy. 5. Legally blind. 6. hypotension ,resolved 7. History of bronchial asthma. 8. 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 dysphagia ,s/p PEG,tolerating feeding 11.respiratory failure on vent 12. Status post trach Plan continue present care Patient is tolerating feeding at 50 cc/h Consultation Date/Type/Reason Admit Date/Time May 01, 2016 at 20:18 Initial Consult Date 05/05/16 Type of Consultation: ID Referring Provider: HOLLI LINDER MD 24 HR Interval Summary Subjective hx not possible: pt non-verbal, pt critical Constitutional: no complaints Exam/Review of Systems Vital Signs Vitals Vital Signs Date Time Temp Pulse Resp B/P Pulse Ox O2 Delivery O2 Flow Rate FiO2 05/30/16 18:00 60 31 108/47 100 Mechanical Ventilator 05/30/16 17:35 30 05/30/16 16:30 98.7 Intake and Output 05/29/16 05/29/16 05/30/16 15:00 23:00 07:00 Intake Total 650 ml 400 ml 700 ml Output Total 1125 ml 760 ml 1175 ml Balance -475 ml -360 ml -475 ml Exam Constitutional: alert, oriented, well developed Psych: nl mood/affect, no complaints Head: atraumatic, normocephalic Eyes: EOMI, PERRL, nl conjunctiva, nl lids, nl sclera ENMT: nl external ears & nose, nl lips & teeth, nl nasal mucosa & septum Neck: non-tender, supple Respiratory: clear to auscultation, normal air movement Cardiovascular: nl pulses, regular rate and rhythm Gastrointestinal: nl liver, spleen, non-tender, soft Musculoskeletal: nl extremities to inspection, nl gait and stance Extremities: normal pulses Neurological: [employer] II-XII intact, nl mental status, nl speech, nl strength Skin: nl turgor, No rash or lesions Lymph: nl lymph nodes Results Result Diagram: 05/30/16 0400 05/30/16 0400 Results 24 hrs Laboratory Tests Test 05/30/16 04:00 White Blood Count 9.8 Red Blood Count 2.84 L Hemoglobin 8.4 L Hematocrit 26.5 L Mean Corpuscular Volume 93.3 Mean Corpuscular Hemoglobin 29.6 Mean Corpuscular Hemoglobin Concent 31.7 L Red Cell Distribution Width 15.6 H Platelet Count 297 Mean Platelet Volume 11.6 H Neutrophils % 64.3 Lymphocytes % 19.3 Monocytes % 8.0 Eosinophils % 5.8 Basophils % 0.5 Nucleated Red Blood Cells % 0.0 Neutrophils # 6.3 Lymphocytes # 1.9 Monocytes # 0.8 Eosinophils # 0.6 H Basophils # 0.1 Nucleated Red Blood Cells # 0.0 Sodium Level 133 L Potassium Level 4.0 Chloride Level 105 Carbon Dioxide Level 25 Anion Gap 7 L Blood Urea Nitrogen 22 H Creatinine 0.96 Glucose Level 125 Calcium Level 7.8 L Phosphorus Level 3.0 Magnesium Level 1.9 Medications Medications Current Medications Ondansetron HCl (Zofran Inj) 4 mg Q6H PRN IV NAUSEA AND/OR VOMITING; Start 05/01 at 20:30 Acetaminophen (Tylenol Tab) 650 mg Q6H PRN PO PAIN LEVEL 1-3 OR FEVER Last administered on 05/06/16 08:23; Admin Dose 650 MG; Start 05/01/16 at 20:30 Acetaminophen (Tylenol Supp) 650 mg Q6H PRN [place] PAIN LEVEL 1-3 OR FEVER; Start 05/01/16 at 20:30 Docusate Sodium (Colace) 100 mg Q12H PRN PO CONSTIPATION Last administered on 13:14; Admin Dose 100 MG; Start 05/01/16 at 20:30 Magnesium Hydroxide (Milk Of Mag) 30 ml DAILY PRN PO CONSTIPATION Last administered on 05/03/16 11:52; Admin Dose 30 ML; Start 05/01/16 at 20:30 Bisacodyl (Dulcolax) 5 mg DAILY PRN PO CONSTIPATION; Start 05/01/16 at 20:30 Bisacodyl (Dulcolax Supp) 10 mg DAILY PRN [place] CONSTIPATION; Start 05/01/16 at 20: 30 Sodium Biphosphate/ Sodium Phosphate (Fleet Enema) 133 ml DAILY PRN [place] CONSTIPATION; Start 05/01/16 at 20:30 Pantoprazole (Protonix Iv) 40 mg DAILY@06 IV Last administered on 05/30/16 05: 30; Admin Dose 40 MG; Start 05/02/16 at 06:00 Tamsulosin HCl (Flomax) 0.4 mg HS PO Last administered on 05/29/16 21:19; Admin Dose 0.4 MG; Start 05/03/16 at 21:00 Aspirin (Aspirin) 325 mg DAILY PO Last administered on 05/30/16 09:47; Admin Dose 325 MG; Start 05/04/16 at 09:00; Status Future hold Lorazepam (Ativan) 2 mg Q2 PRN IV AGITATION Last administered on 05/27/16 08:08 ; Admin Dose 2 MG; Start 05/05/16 at 18:00 Morphine Sulfate (morphine) 2 mg Q2H PRN IV PAIN Last administered on 05/28/16 18:30; Admin Dose 2 MG; Start 05/05/16 at 18:00 IV Flush (NS 10 ml) 10 ml PRN PRN IV FLUSH LINE; Start 05/06/16 at 13:00 Potassium Chloride (Potassium Chloride Pwd/Soln) 20 meq DAILY NGT Last administered on 05/30/16 09:47; Admin Dose 20 MEQ; Start 05/20/16 at 09:30 Fluconazole (Diflucan) 100 mg DAILY PO Last administered on 05/30/16 09:47; Admin Dose 100 MG; Start 05/23/16 at 12:30 Midodrine (Proamatine) 10 mg TID GTB Last administered on 05/30/16 14:09; Admin Dose 10 MG; Start 05/28/16 at 21:00 NEVAEH WOODSON MD May 30, 2016 19:12
--- NOTE | 2016-05-30 21:37 | PN ---
Date/Time of Note Date/Time of Note DATE: 05/30/16 TIME: 21:37 Assessment/Plan VTE Prophylaxis VTE Prophylaxis Intervention: other Lines/Catheters IV Catheter Type (from Nrs): PICC Line Central line still needed: Yes Urinary Cath still in place: Yes Reason Cath still needed: other (indicate) Assessment/Plan Chief Complaint/Hosp Course IMPRESSION: The patient has 1. ACUTE RES FAILURE on vent 2. hypernatremia better 3. Hypertension. 4. anxiety 5. PACEMAKER HX 6 low ef 7 leucocytosis 8 RHINA 9 VDRF 10 SEPSIS 11 s/p peg plan bmp per id and pulmonary d/w family tele Problems: Subjective 24 Hr Interval Summary Constitutional: no complaints Exam/Review of Systems Vital Signs Vitals Vital Signs Date Time Temp Pulse Resp B/P Pulse Ox O2 Delivery O2 Flow Rate FiO2 05/30/16 20:00 60 05/30/16 20:00 30 05/30/16 18:00 31 108/47 100 Mechanical Ventilator 05/30/16 16:30 98.7 Intake and Output 05/29/16 05/29/16 05/30/16 15:00 23:00 07:00 Intake Total 650 ml 400 ml 700 ml Output Total 1125 ml 760 ml 1175 ml Balance -475 ml -360 ml -475 ml Exam Respiratory: clear to auscultation Cardiovascular: regular rate and rhythm Gastrointestinal: bowel sounds (+), soft Extremities: No edema Results Result Diagram: 05/30/16 0400 05/30/16 0400 Results 24 hrs Laboratory Tests Test 05/30/16 04:00 White Blood Count 9.8 Red Blood Count 2.84 L Hemoglobin 8.4 L Hematocrit 26.5 L Mean Corpuscular Volume 93.3 Mean Corpuscular Hemoglobin 29.6 Mean Corpuscular Hemoglobin Concent 31.7 L Red Cell Distribution Width 15.6 H Platelet Count 297 Mean Platelet Volume 11.6 H Neutrophils % 64.3 Lymphocytes % 19.3 Monocytes % 8.0 Eosinophils % 5.8 Basophils % 0.5 Nucleated Red Blood Cells % 0.0 Neutrophils # 6.3 Lymphocytes # 1.9 Monocytes # 0.8 Eosinophils # 0.6 H Basophils # 0.1 Nucleated Red Blood Cells # 0.0 Sodium Level 133 L Potassium Level 4.0 Chloride Level 105 Carbon Dioxide Level 25 Anion Gap 7 L Blood Urea Nitrogen 22 H Creatinine 0.96 Glucose Level 125 Calcium Level 7.8 L Phosphorus Level 3.0 Magnesium Level 1.9 Medications Medications Current Medications Ondansetron HCl (Zofran Inj) 4 mg Q6H PRN IV NAUSEA AND/OR VOMITING; Start 05/01 at 20:30 Acetaminophen (Tylenol Tab) 650 mg Q6H PRN PO PAIN LEVEL 1-3 OR FEVER Last administered on 05/06/16 08:23; Admin Dose 650 MG; Start 05/01/16 at 20:30 Acetaminophen (Tylenol Supp) 650 mg Q6H PRN [place] PAIN LEVEL 1-3 OR FEVER; Start 05/01/16 at 20:30 Docusate Sodium (Colace) 100 mg Q12H PRN PO CONSTIPATION Last administered on 13:14; Admin Dose 100 MG; Start 05/01/16 at 20:30 Magnesium Hydroxide (Milk Of Mag) 30 ml DAILY PRN PO CONSTIPATION Last administered on 05/03/16 11:52; Admin Dose 30 ML; Start 05/01/16 at 20:30 Bisacodyl (Dulcolax) 5 mg DAILY PRN PO CONSTIPATION; Start 05/01/16 at 20:30 Bisacodyl (Dulcolax Supp) 10 mg DAILY PRN [place] CONSTIPATION; Start 05/01/16 at 20: 30 Sodium Biphosphate/ Sodium Phosphate (Fleet Enema) 133 ml DAILY PRN [place] CONSTIPATION; Start 05/01/16 at 20:30 Pantoprazole (Protonix Iv) 40 mg DAILY@06 IV Last administered on 05/30/16 05: 30; Admin Dose 40 MG; Start 05/02/16 at 06:00 Tamsulosin HCl (Flomax) 0.4 mg HS PO Last administered on 05/29/16 21:19; Admin Dose 0.4 MG; Start 05/03/16 at 21:00 Aspirin (Aspirin) 325 mg DAILY PO Last administered on 05/30/16 09:47; Admin Dose 325 MG; Start 05/04/16 at 09:00; Status Future hold Lorazepam (Ativan) 2 mg Q2 PRN IV AGITATION Last administered on 05/27/16 08:08 ; Admin Dose 2 MG; Start 05/05/16 at 18:00 Morphine Sulfate (morphine) 2 mg Q2H PRN IV PAIN Last administered on 05/28/16 18:30; Admin Dose 2 MG; Start 05/05/16 at 18:00 IV Flush (NS 10 ml) 10 ml PRN PRN IV FLUSH LINE; Start 05/06/16 at 13:00 Potassium Chloride (Potassium Chloride Pwd/Soln) 20 meq DAILY NGT Last administered on 05/30/16 09:47; Admin Dose 20 MEQ; Start 05/20/16 at 09:30 Fluconazole (Diflucan) 100 mg DAILY PO Last administered on 05/30/16 09:47; Admin Dose 100 MG; Start 05/23/16 at 12:30 Midodrine (Proamatine) 10 mg TID GTB Last administered on 05/30/16 14:09; Admin Dose 10 MG; Start 05/28/16 at 21:00 HOLLI LINDER MD May 30, 2016 21:37
[2016-05-30] MEDS: TAMSULOSIN (SR) 0.4 MG CAP PO SCH (21:54)
[2016-05-31] VITALS (25 sets, daily range): BP systolic 100–145; BP diastolic 61–86; PULSE 74–165; RESP 14–27
[2016-05-31] MEDS: morphine 2 MG INJ IV PRN ×4 (00:09→20:52)
[2016-05-31] MEDS: PANTOPRAZOLE 40 MG INJ IV SCH (04:57)
[2016-05-31] MEDS: FLUCONAZOLE 100 MG TAB PO SCH (08:59)
[2016-05-31] MEDS: POTASSIUM CHLORIDE 20 MEQ POWDER FOR ORAL SOLN NGT SCH (08:59)
[2016-05-31] MEDS: ASPIRIN 325 MG TAB PO SCH (08:59)
[2016-05-31] MEDS: MIDODRINE 5 MG TAB GTB SCH ×3 (08:59→20:52)
--- NOTE | 2016-05-31 11:32 | CONS ---
Date/Time of Note Date/Time of Note DATE: 05/31/16 TIME: 11:26 Consult Date/Type/Reason Admit Date/Time May 01, 2016 at 20:18 Initial Consult Date 05/05/16 Type of Consultation: pulmonary Ordering Provider: HOLLI LINDER MD Subjective Patient remains somnolent on mechanical ventilation No significant events overnight Neurologically unchanged Objective Vital Signs Date Time Temp Pulse Resp B/P Pulse Ox O2 Delivery O2 Flow Rate FiO2 05/31/16 10:55 98.1 61 18 108/86 96 05/31/16 09:10 29 05/30/16 22:46 Mechanical Ventilator Intake and Output 05/30/16 05/30/16 05/31/16 15:00 23:00 07:00 Intake Total 500 ml 500 ml 600 ml Output Total 900 ml 950 ml 400 ml Balance -400 ml -450 ml 200 ml Exam PHYSICAL EXAMINATION GENERAL: Elderly gentleman, tracheostomy on mechanical ventilation VITAL SIGNS: see below. HEENT: Pupils equal, round, and reactive to light. Tracheostomy site clean and intact. CARDIAC: S1, S2, 2/6 systolic ejection murmur CHEST: Diminished air entry bilaterally. ABDOMEN: Mildly distended. No bowel sounds. EXTREMITIES: No cyanosis, clubbing, edema +1 NEUROLOGIC: Unable to asses Results/Medications Result Diagram: 05/30/16 0400 05/30/16 0400 Medications Current Medications Ondansetron HCl (Zofran Inj) 4 mg Q6H PRN IV NAUSEA AND/OR VOMITING; Start 05/01 at 20:30 Acetaminophen (Tylenol Tab) 650 mg Q6H PRN PO PAIN LEVEL 1-3 OR FEVER Last administered on 05/06/16 08:23; Admin Dose 650 MG; Start 05/01/16 at 20:30 Acetaminophen (Tylenol Supp) 650 mg Q6H PRN [place] PAIN LEVEL 1-3 OR FEVER; Start 05/01/16 at 20:30 Docusate Sodium (Colace) 100 mg Q12H PRN PO CONSTIPATION Last administered on 13:14; Admin Dose 100 MG; Start 05/01/16 at 20:30 Magnesium Hydroxide (Milk Of Mag) 30 ml DAILY PRN PO CONSTIPATION Last administered on 05/03/16 11:52; Admin Dose 30 ML; Start 05/01/16 at 20:30 Bisacodyl (Dulcolax) 5 mg DAILY PRN PO CONSTIPATION; Start 05/01/16 at 20:30 Bisacodyl (Dulcolax Supp) 10 mg DAILY PRN [place] CONSTIPATION; Start 05/01/16 at 20: 30 Sodium Biphosphate/ Sodium Phosphate (Fleet Enema) 133 ml DAILY PRN [place] CONSTIPATION; Start 05/01/16 at 20:30 Pantoprazole (Protonix Iv) 40 mg DAILY@06 IV Last administered on 05/31/16 04: 57; Admin Dose 40 MG; Start 05/02/16 at 06:00 Tamsulosin HCl (Flomax) 0.4 mg HS PO Last administered on 05/30/16 21:54; Admin Dose 0.4 MG; Start 05/03/16 at 21:00 Aspirin (Aspirin) 325 mg DAILY PO Last administered on 05/31/16 08:59; Admin Dose 325 MG; Start 05/04/16 at 09:00; Status Future hold Lorazepam (Ativan) 2 mg Q2 PRN IV AGITATION Last administered on 05/27/16 08:08 ; Admin Dose 2 MG; Start 05/05/16 at 18:00 Morphine Sulfate (morphine) 2 mg Q2H PRN IV PAIN Last administered on 05/31/16 04:54; Admin Dose 2 MG; Start 05/05/16 at 18:00 IV Flush (NS 10 ml) 10 ml PRN PRN IV FLUSH LINE; Start 05/06/16 at 13:00 Potassium Chloride (Potassium Chloride Pwd/Soln) 20 meq DAILY NGT Last administered on 05/31/16 08:59; Admin Dose 20 MEQ; Start 05/20/16 at 09:30 Fluconazole (Diflucan) 100 mg DAILY PO Last administered on 05/31/16 08:59; Admin Dose 100 MG; Start 05/23/16 at 12:30 Midodrine (Proamatine) 10 mg TID GTB Last administered on 05/31/16 08:59; Admin Dose 10 MG; Start 05/28/16 at 21:00 Assessment/Plan Chief Complaint/Hosp Course Assessment 1. Hypoxemic and hypercapnic respiratory failure now with tracheostomy 2. Likely recurrent aspiration 3. Dementia 4. History of dysphagia now with G-tube in place 5. Failure to thrive Plan 1. Continue mechanical ventilation. Tracheostomy site care 2. Continue to feeding as tolerated, GI recommendations 3. Continue IV fluids and blood pressure monitoring 4. DVT and GI prophylaxis Disposition Transfer to subacute okay from pulmonary standpoint Problems: KAVON TROY MD, [facility] May 31, 2016 11:32
--- NOTE | 2016-05-31 13:51 | CONS ---
Date/Time of Note Date/Time of Note DATE: 05/31/16 TIME: 13:49 Assessment/Plan Assessment/Plan Chief Complaint/Hosp Course IMPRESSION: 1. Respiratory failure s/p now trach 2. 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 negative troponin x 3 this admit. s/p lexsican LVEF 22%/no ischemia/prior [place]. Currently improved volume status 3. 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 History of asthma/chronic obstructive pulmonary disease. 6. Glaucoma. 7. History of bradycardia. 8. Hypotension-currrently improved but on midodrine 9. Leukocytosis. 10. Altered mental state. 11. Fevers 12.ARF-improved 14. Anemia-s/p transfusion PRBC's Recc: -Now in ICU -Maintain Tele monitoring -Follow BP closely with possible need to restart pressors -Will hold on re-inititation of lovenox given recent acute drop in Hgb with patient recent receiving transfusion but will continue asa as tolerated -Continue abx's and f/u cx data -Will continue midodrine at this time but would like to wean as tolerated as is pure afterload Problems: Consultation Date/Type/Reason Admit Date/Time May 01, 2016 at 20:18 Initial Consult Date 05/02/16 Type of Consultation: Cardiology Reason for Consultation PPM Referring Provider: HOLLI LINDER MD Exam/Review of Systems Vital Signs Vitals Vital Signs Date Time Temp Pulse Resp B/P Pulse Ox O2 Delivery O2 Flow Rate FiO2 05/31/16 13:23 98 14 99 30 05/31/16 10:55 98.1 108/86 05/30/16 22:46 Mechanical Ventilator Intake and Output 05/30/16 05/30/16 05/31/16 15:00 23:00 07:00 Intake Total 500 ml 500 ml 600 ml Output Total 900 ml 950 ml 400 ml Balance -400 ml -450 ml 200 ml Exam Review of Systems: CONSTITUTIONAL: No fevers, chills. PULMONARY: No sob CARDIOVASCULAR: No chest pain/palpitations GASTROINTESTINAL: No nausea/vomiting. GENITOURINARY: No hematuria/dysuria. MUSCULOSKELETAL: No myagias/arthalgias. PSYCHIATRIC: The patient denies depression. NEUROLOGIC: No weakness Constitutional: alert, oriented Psych: no complaints Head: normocephalic ENMT: mucosa pink and moist Neck: jvd, supple Respiratory: diminished breath sounds Cardiovascular: regular rate and rhythm Gastrointestinal: non-tender, soft Musculoskeletal: muscle tone Extremities: normal pulses Neurological: other (No focal deficits) Results Result Diagram: 05/30/160 05/30/160 Medications Medications Current Medications Ondansetron HCl (Zofran Inj) 4 mg Q6H PRN IV NAUSEA AND/OR VOMITING; Start 05/01 at 20:30 Acetaminophen (Tylenol Tab) 650 mg Q6H PRN PO PAIN LEVEL 1-3 OR FEVER Last administered on 05/06/16 08:23; Admin Dose 650 MG; Start 05/01/16 at 20:30 Acetaminophen (Tylenol Supp) 650 mg Q6H PRN [place] PAIN LEVEL 1-3 OR FEVER; Start 05/01/16 at 20:30 Docusate Sodium (Colace) 100 mg Q12H PRN PO CONSTIPATION Last administered on 13:14; Admin Dose 100 MG; Start 05/01/16 at 20:30 Magnesium Hydroxide (Milk Of Mag) 30 ml DAILY PRN PO CONSTIPATION Last administered on 05/03/16 11:52; Admin Dose 30 ML; Start 05/01/16 at 20:30 Bisacodyl (Dulcolax) 5 mg DAILY PRN PO CONSTIPATION; Start 05/01/16 at 20:30 Bisacodyl (Dulcolax Supp) 10 mg DAILY PRN [place] CONSTIPATION; Start 05/01/16 at 20: 30 Sodium Biphosphate/ Sodium Phosphate (Fleet Enema) 133 ml DAILY PRN [place] CONSTIPATION; Start 05/01/16 at 20:30 Pantoprazole (Protonix Iv) 40 mg DAILY@06 IV Last administered on 05/31/16 04: 57; Admin Dose 40 MG; Start 05/02/16 at 06:00 Tamsulosin HCl (Flomax) 0.4 mg HS PO Last administered on 05/30/16 21:54; Admin Dose 0.4 MG; Start 05/03/16 at 21:00 Aspirin (Aspirin) 325 mg DAILY PO Last administered on 05/31/16 08:59; Admin Dose 325 MG; Start 05/04/16 at 09:00; Status Future hold Lorazepam (Ativan) 2 mg Q2 PRN IV AGITATION Last administered on 05/27/16 08:08 ; Admin Dose 2 MG; Start 05/05/16 at 18:00 Morphine Sulfate (morphine) 2 mg Q2H PRN IV PAIN Last administered on 05/31/16 04:54; Admin Dose 2 MG; Start 05/05/16 at 18:00 IV Flush (NS 10 ml) 10 ml PRN PRN IV FLUSH LINE; Start 05/06/16 at 13:00 Potassium Chloride (Potassium Chloride Pwd/Soln) 20 meq DAILY NGT Last administered on 05/31/16 08:59; Admin Dose 20 MEQ; Start 05/20/16 at 09:30 Fluconazole (Diflucan) 100 mg DAILY PO Last administered on 05/31/16 08:59; Admin Dose 100 MG; Start 05/23/16 at 12:30 Midodrine (Proamatine) 10 mg TID GTB Last administered on 05/31/16 12:48; Admin Dose 10 MG; Start 05/28/16 at 21:00 JAYA GORE May 31, 2016 13:51
--- NOTE | 2016-05-31 15:33 | CONS ---
Date/Time of Note Date/Time of Note DATE: 05/31/16 TIME: 15:33 Assessment/Plan Assessment/Plan Chief Complaint/Hosp Course SUBJECTIVE: No acute events, looks comfortable, no fevers INDWELLINGS: Trach, PEG, Alfonso, PICC line placed on 05/06/2016. ANTIMICROBIALS: Diflucan s/p Zosyn. PHYSICAL EXAMINATION: GENERAL: This is a chronically ill-appearing, elderly man who is lying comfortably in bed. HEENT: Head atraumatic, normocephalic. Sclerae anicteric. Buccal mucosa dry. NECK: Supple. CHEST: Rise symmetrical. Breath sounds diminished with scattered crackles to bases. HEART: S1, S2. ABDOMEN: Soft, bowel tones present. EXTREMITIES: Without cyanosis, mottled and cold to touch. ASSESSMENT: 1. S/p septic shock. 2. S/p recurrent pneumonia, possibly aspiration type. 3. Dysphagia==> s/p PEG 4. Respiratory failure. 5. Paroxysmal atrial fibrillation status post permanent pacemaker. PLAN: Remains stable, continue Diflucan, vent per pulmonary. DW staff Problems: Consultation Date/Type/Reason Admit Date/Time May 01, 2016 at 20:18 Initial Consult Date 05/05/16 Type of Consultation: ID Referring Provider: HOLLI LINDER MD Exam/Review of Systems Vital Signs Vitals Vital Signs Date Time Temp Pulse Resp B/P Pulse Ox O2 Delivery O2 Flow Rate FiO2 05/31/16 15:31 98.5 72 18 134/66 94 05/31/16 13:23 30 05/30/16 22:46 Mechanical Ventilator Intake and Output 05/30/16 05/30/16 05/31/16 15:00 23:00 07:00 Intake Total 500 ml 500 ml 600 ml Output Total 900 ml 950 ml 400 ml Balance -400 ml -450 ml 200 ml Results Result Diagram: 05/30/16 0400 05/30/16 0400 Medications Medications Current Medications Ondansetron HCl (Zofran Inj) 4 mg Q6H PRN IV NAUSEA AND/OR VOMITING; Start 05/01 at 20:30 Acetaminophen (Tylenol Tab) 650 mg Q6H PRN PO PAIN LEVEL 1-3 OR FEVER Last administered on 05/06/16t 08:23; Admin Dose 650 MG; Start 05/01/16 at 20:30 Acetaminophen (Tylenol Supp) 650 mg Q6H PRN [place] PAIN LEVEL 1-3 OR FEVER; Start 05/01/16 at 20:30 Docusate Sodium (Colace) 100 mg Q12H PRN PO CONSTIPATION Last administered on 13:14; Admin Dose 100 MG; Start 05/01/16 at 20:30 Magnesium Hydroxide (Milk Of Mag) 30 ml DAILY PRN PO CONSTIPATION Last administered on 05/03/16 11:52; Admin Dose 30 ML; Start 05/01/16 at 20:30 Bisacodyl (Dulcolax) 5 mg DAILY PRN PO CONSTIPATION; Start 05/01/16 at 20:30 Bisacodyl (Dulcolax Supp) 10 mg DAILY PRN [place] CONSTIPATION; Start 05/01/16 at 20: 30 Sodium Biphosphate/ Sodium Phosphate (Fleet Enema) 133 ml DAILY PRN [place] CONSTIPATION; Start 05/01/16 at 20:30 Pantoprazole (Protonix Iv) 40 mg DAILY@06 IV Last administered on 05/31/16 04: 57; Admin Dose 40 MG; Start 05/02/16 at 06:00 Tamsulosin HCl (Flomax) 0.4 mg HS PO Last administered on 05/30/16 21:54; Admin Dose 0.4 MG; Start 05/03/16 at 21:00 Aspirin (Aspirin) 325 mg DAILY PO Last administered on 05/31/16 08:59; Admin Dose 325 MG; Start 05/04/16 at 09:00; Status Future hold Lorazepam (Ativan) 2 mg Q2 PRN IV AGITATION Last administered on 05/27/16 08:08 ; Admin Dose 2 MG; Start 05/05/16 at 18:00 Morphine Sulfate (morphine) 2 mg Q2H PRN IV PAIN Last administered on 05/31/16 04:54; Admin Dose 2 MG; Start 05/05/16 at 18:00 IV Flush (NS 10 ml) 10 ml PRN PRN IV FLUSH LINE; Start 05/06/16 at 13:00 Potassium Chloride (Potassium Chloride Pwd/Soln) 20 meq DAILY NGT Last administered on 05/31/16 08:59; Admin Dose 20 MEQ; Start 05/20/16 at 09:30 Fluconazole (Diflucan) 100 mg DAILY PO Last administered on 05/31/16 08:59; Admin Dose 100 MG; Start 05/23/16 at 12:30 Midodrine (Proamatine) 7.5 mg TID GTB ; Start 05/31/16 at 21:00 JOSE G CUNNINGHAM NP May 31, 2016 15:33
--- NOTE | 2016-05-31 19:12 | CONS ---
Date/Time of Note Date/Time of Note DATE: 05/31/16 TIME: 19:12 Assessment/Plan Assessment/Plan Additional Assessment/Plan IMPRESSION: 1. Aspiration pneumonia. 2. Leukocytosis.better 3. Status post pacemaker insertion. 4. Benign prostatic hypertrophy. 5. Legally blind. 6. hypotension ,resolved 7. History of bronchial asthma. 8. 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 dysphagia ,s/p PEG,tolerating feeding 11.respiratory failure on vent 12. Status post trach Plan continue present care Patient on Diflucan Consultation Date/Type/Reason Admit Date/Time May 01, 2016 at 20:18 Initial Consult Date 05/05/16 Type of Consultation: ID Referring Provider: HOLLI LINDER MD 24 HR Interval Summary Subjective hx not possible: pt non-verbal Exam/Review of Systems Vital Signs Vitals Vital Signs Date Time Temp Pulse Resp B/P Pulse Ox O2 Delivery O2 Flow Rate FiO2 05/31/16 17:20 73 14 100 60 05/31/16 15:31 98.5 134/66 05/30/16 22:46 Mechanical Ventilator Intake and Output 05/30/16 05/30/16 05/31/16 15:00 23:00 07:00 Intake Total 500 ml 500 ml 600 ml Output Total 900 ml 950 ml 400 ml Balance -400 ml -450 ml 200 ml Exam Constitutional: alert, oriented, well developed Psych: nl mood/affect, no complaints Head: atraumatic, normocephalic Eyes: EOMI, PERRL, nl conjunctiva, nl lids, nl sclera ENMT: nl external ears & nose, nl lips & teeth, nl nasal mucosa & septum Neck: non-tender, supple Respiratory: clear to auscultation, normal air movement Cardiovascular: nl pulses, regular rate and rhythm Gastrointestinal: nl liver, spleen, non-tender, soft Musculoskeletal: nl extremities to inspection, nl gait and stance Extremities: normal pulses Neurological: 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 II-XII intact, nl mental status, nl speech, nl strength Skin: nl turgor, No rash or lesions Lymph: nl lymph nodes Results Result Diagram: 05/30/16 0400 05/30/16 0400 Medications Medications Current Medications Ondansetron HCl (Zofran Inj) 4 mg Q6H PRN IV NAUSEA AND/OR VOMITING; Start 05/01 at 20:30 Acetaminophen (Tylenol Tab) 650 mg Q6H PRN PO PAIN LEVEL 1-3 OR FEVER Last administered on 05/06/16 08:23; Admin Dose 650 MG; Start 05/01/16 at 20:30 Acetaminophen (Tylenol Supp) 650 mg Q6H PRN [place] PAIN LEVEL 1-3 OR FEVER; Start 05/01/16 at 20:30 Docusate Sodium (Colace) 100 mg Q12H PRN PO CONSTIPATION Last administered on 13:14; Admin Dose 100 MG; Start 05/01/16 at 20:30 Magnesium Hydroxide (Milk Of Mag) 30 ml DAILY PRN PO CONSTIPATION Last administered on 05/03/16 11:52; Admin Dose 30 ML; Start 05/01/16 at 20:30 Bisacodyl (Dulcolax) 5 mg DAILY PRN PO CONSTIPATION; Start 05/01/16 at 20:30 Bisacodyl (Dulcolax Supp) 10 mg DAILY PRN [place] CONSTIPATION; Start 05/01/16 at 20: 30 Sodium Biphosphate/ Sodium Phosphate (Fleet Enema) 133 ml DAILY PRN [place] CONSTIPATION; Start 05/01/16 at 20:30 Pantoprazole (Protonix Iv) 40 mg DAILY@06 IV Last administered on 05/31/16 04: 57; Admin Dose 40 MG; Start 05/02/16 at 06:00 Tamsulosin HCl (Flomax) 0.4 mg HS PO Last administered on 05/30/16 21:54; Admin Dose 0.4 MG; Start 05/03/16 at 21:00 Aspirin (Aspirin) 325 mg DAILY PO Last administered on 05/31/16 08:59; Admin Dose 325 MG; Start 05/04/16 at 09:00; Status Future hold Lorazepam (Ativan) 2 mg Q2 PRN IV AGITATION Last administered on 05/27/16 08:08 ; Admin Dose 2 MG; Start 05/05/16 at 18:00 Morphine Sulfate (morphine) 2 mg Q2H PRN IV PAIN Last administered on 05/31/16 04:54; Admin Dose 2 MG; Start 05/05/16 at 18:00 IV Flush (NS 10 ml) 10 ml PRN PRN IV FLUSH LINE; Start 05/06/16 at 13:00 Potassium Chloride (Potassium Chloride Pwd/Soln) 20 meq DAILY NGT Last administered on 05/31/16 08:59; Admin Dose 20 MEQ; Start 05/20/16 at 09:30 Fluconazole (Diflucan) 100 mg DAILY PO Last administered on 05/31/16 08:59; Admin Dose 100 MG; Start 05/23/16 at 12:30 Midodrine (Proamatine) 7.5 mg TID GTB ; Start 05/31/16 at 21:00 NEVAEH WOODSON MD May 31, 2016 19:12
--- NOTE | 2016-05-31 20:05 | PN ---
Date/Time of Note Date/Time of Note DATE: 05/31/16 TIME: 20:02 Assessment/Plan VTE Prophylaxis VTE Prophylaxis Intervention: other Lines/Catheters IV Catheter Type (from Nrsg): PICC Line Central line still needed: Yes Urinary Cath still in place: Yes Reason Cath still needed: other (indicate) Assessment/Plan Chief Complaint/Hosp Course IMPRESSION: The patient has 1. ACUTE RES FAILURE on vent 2. hypernatremia better 3. Hypertension. 4. anxiety 5. PACEMAKER HX 6 low ef 7 leucocytosis 8 RHINA 9 VDRF 10 SEPSIS 11 s/p peg plan bmp per id and pulmonary d/w family tele barlor eval Problems: Subjective 24 Hr Interval Summary Respiratory: no complaints Exam/Review of Systems Vital Signs Vitals Vital Signs Date Time Temp Pulse Resp B/P Pulse Ox O2 Delivery O2 Flow Rate FiO2 05/31/16 19:46 98.2 50 20 119/61 92 05/31/16 17:20 60 05/30/16 22:46 Mechanical Ventilator Intake and Output 05/30/16 05/30/16 05/31/16 14:59 22:59 06:59 Intake Total 500 ml 550 ml 600 ml Output Total 825 ml 1100 ml 400 ml Balance -325 ml -550 ml 200 ml Exam Respiratory: clear to auscultation Cardiovascular: regular rate and rhythm Gastrointestinal: soft Extremities: No edema Results Result Diagram: 05/30/16 0400 05/30/16 0400 Medications Medications Current Medications Ondansetron HCl (Zofran Inj) 4 mg Q6H PRN IV NAUSEA AND/OR VOMITING; Start 05/01 at 20:30 Acetaminophen (Tylenol Tab) 650 mg Q6H PRN PO PAIN LEVEL 1-3 OR FEVER Last administered on 05/06/16 08:23; Admin Dose 650 MG; Start 05/01/16 at 20:30 Acetaminophen (Tylenol Supp) 650 mg Q6H PRN [place] PAIN LEVEL 1-3 OR FEVER; Start 05/01/16 at 20:30 Docusate Sodium (Colace) 100 mg Q12H PRN PO CONSTIPATION Last administered on 13:14; Admin Dose 100 MG; Start 05/01/16 at 20:30 Magnesium Hydroxide (Milk Of Mag) 30 ml DAILY PRN PO CONSTIPATION Last administered on 05/03/16 11:52; Admin Dose 30 ML; Start 05/01/16 at 20:30 Bisacodyl (Dulcolax) 5 mg DAILY PRN PO CONSTIPATION; Start 05/01/16 at 20:30 Bisacodyl (Dulcolax Supp) 10 mg DAILY PRN [place] CONSTIPATION; Start 05/01/16 at 20: 30 Sodium Biphosphate/ Sodium Phosphate (Fleet Enema) 133 ml DAILY PRN [place] CONSTIPATION; Start 05/01/16 at 20:30 Pantoprazole (Protonix Iv) 40 mg DAILY@06 IV Last administered on 05/31/16 04: 57; Admin Dose 40 MG; Start 05/02/16 at 06:00 Tamsulosin HCl (Flomax) 0.4 mg HS PO Last administered on 05/30/16 21:54; Admin Dose 0.4 MG; Start 05/03/16 at 21:00 Aspirin (Aspirin) 325 mg DAILY PO Last administered on 05/31/16 08:59; Admin Dose 325 MG; Start 05/04/16 at 09:00; Status Future hold Lorazepam (Ativan) 2 mg Q2 PRN IV AGITATION Last administered on 05/27/16 08:08 ; Admin Dose 2 MG; Start 05/05/16 at 18:00 Morphine Sulfate (morphine) 2 mg Q2H PRN IV PAIN Last administered on 05/31/16 04:54; Admin Dose 2 MG; Start 05/05/16 at 18:00 IV Flush (NS 10 ml) 10 ml PRN PRN IV FLUSH LINE; Start 05/06/16 at 13:00 Potassium Chloride (Potassium Chloride Pwd/Soln) 20 meq DAILY NGT Last administered on 05/31/16 08:59; Admin Dose 20 MEQ; Start 05/20/16 at 09:30 Fluconazole (Diflucan) 100 mg DAILY PO Last administered on 05/31/16 08:59; Admin Dose 100 MG; Start 05/23/16 at 12:30 Midodrine (Proamatine) 7.5 mg TID GTB ; Start 05/31/16 at 21:00 HOLLI LINDER MD May 31, 2016 20:05
[2016-05-31] MEDS: TAMSULOSIN (SR) 0.4 MG CAP PO SCH (20:52)
[2016-06-01] VITALS (17 sets, daily range): BP systolic 109–128; BP diastolic 59–76; PULSE 73–113; RESP 18–34
[2016-06-01] MEDS: PANTOPRAZOLE 40 MG INJ IV SCH (06:41)
[2016-06-01] MEDS: POTASSIUM CHLORIDE 20 MEQ POWDER FOR ORAL SOLN NGT SCH (09:07)
[2016-06-01] MEDS: ASPIRIN 325 MG TAB PO SCH (09:08)
[2016-06-01] MEDS: MIDODRINE 5 MG TAB GTB SCH ×2 (09:08→12:51)
[2016-06-01] MEDS: FLUCONAZOLE 100 MG TAB PO SCH (09:09)
--- NOTE | 2016-06-01 11:09 | CONS ---
Date/Time of Note Date/Time of Note DATE: 06/01/16 TIME: 11:07 Assessment/Plan Assessment/Plan Additional Assessment/Plan Ventilator setting; if you feel, gallop 500, PEEP of 5, 30% FiO2. Assessment recommendations; 1. Patient admitted for bilateral pneumonia was successfully extubated and transferred to medical floor when the patient again developed respiratory failure requiring tracheostomy. 2. History of CVA and dementia. 3. Status post G-tube placement. Continue supportive care. Awaiting transfer to rehab facility. Consultation Date/Type/Reason Admit Date/Time May 01, 2016 at 20:18 Initial Consult Date 05/05/16 Type of Consultation: Coronary/critical care Referring Provider: HOLLI LINDER MD 24 HR Interval Summary Free Text/Dictation Patient condition remained stable. Now remains ventilator dependent. General exam; elderly male, currently in no distress. On ventilator via tracheostomy. Exam/Review of Systems Vital Signs Vitals Vital Signs Date Time Temp Pulse Resp B/P Pulse Ox O2 Delivery O2 Flow Rate FiO2 06/01/16 09:25 113 06/01/16 09:00 29 100 30 06/01/16 07:33 97.9 109/76 05/30/16 22:46 Mechanical Ventilator Intake and Output 05/31/16 05/31/16 06/01/16 15:00 23:00 07:00 Intake Total 600 ml 765 ml Output Total 410 ml 750 ml Balance 190 ml 15 ml Exam H EENT exam; supple neck, no JVD. No lymphadenopathy. Midline trachea. No thyromegaly. Tracheostomy in place at the insertion site. Patient is edentulous. Has bilateral corneal opacities. Chest examination; diminished but clear breath sounds bilaterally. S1-S2 audible, no murmurs. Regular rhythm. Abdomen examination; soft, nondistended. G-tube in place. Bowels are good. No organomegaly. Extremity exam; no peripheral edema. Venous examination : patient is occasionally responsive. Results Result Diagram: 05/30/1639905/30/16399 Medications Medications Current Medications Ondansetron HCl (Zofran Inj) 4 mg Q6H PRN IV NAUSEA AND/OR VOMITING; Start 05/01 at 20:30 Acetaminophen (Tylenol Tab) 650 mg Q6H PRN PO PAIN LEVEL 1-3 OR FEVER Last administered on 05/06/16t 08:23; Admin Dose 650 MG; Start 05/01/16 at 20:30 Acetaminophen (Tylenol Supp) 650 mg Q6H PRN [place] PAIN LEVEL 1-3 OR FEVER; Start 05/01/16 at 20:30 Docusate Sodium (Colace) 100 mg Q12H PRN PO CONSTIPATION Last administered on 13:14; Admin Dose 100 MG; Start 05/01/16 at 20:30 Magnesium Hydroxide (Milk Of Mag) 30 ml DAILY PRN PO CONSTIPATION Last administered on 05/03/16 11:52; Admin Dose 30 ML; Start 05/01/16 at 20:30 Bisacodyl (Dulcolax) 5 mg DAILY PRN PO CONSTIPATION; Start 05/01/16 at 20:30 Bisacodyl (Dulcolax Supp) 10 mg DAILY PRN [place] CONSTIPATION; Start 05/01/16 at 20: 30 Sodium Biphosphate/ Sodium Phosphate (Fleet Enema) 133 ml DAILY PRN [place] CONSTIPATION; Start 05/01/16 at 20:30 Pantoprazole (Protonix Iv) 40 mg DAILY@06 IV Last administered on 06/01/16 06: 41; Admin Dose 40 MG; Start 05/02/16 at 06:00 Tamsulosin HCl (Flomax) 0.4 mg HS PO Last administered on 05/31/16 20:52; Admin Dose 0.4 MG; Start 05/03/16 at 21:00 Aspirin (Aspirin) 325 mg DAILY PO Last administered on 06/01/16 09:08; Admin Dose 325 MG; Start 05/04/16 at 09:00; Status Future hold Lorazepam (Ativan) 2 mg Q2 PRN IV AGITATION Last administered on 05/27/16 08:08 ; Admin Dose 2 MG; Start 05/05/16 at 18:00 Morphine Sulfate (morphine) 2 mg Q2H PRN IV PAIN Last administered on 05/31/16 20:52; Admin Dose 2 MG; Start 05/05/16 at 18:00 IV Flush (NS 10 ml) 10 ml PRN PRN IV FLUSH LINE; Start 05/06/16 at 13:00 Potassium Chloride (Potassium Chloride Pwd/Soln) 20 meq DAILY NGT Last administered on 06/01/16 09:07; Admin Dose 20 MEQ; Start 05/20/16 at 09:30 Fluconazole (Diflucan) 100 mg DAILY PO Last administered on 06/01/16 09:09; Admin Dose 100 MG; Start 05/23/16 at 12:30 Midodrine (Proamatine) 7.5 mg TID GTB Last administered on 06/01/16 09:08; Admin Dose 7.5 MG; Start 05/31/16 at 21:00 GERALDINE CUNNINGHAM Jun 01, 2016 11:09
--- NOTE | 2016-06-01 12:55 | CONS ---
Date/Time of Note Date/Time of Note DATE: 06/01/16 TIME: 12:50 Assessment/Plan Assessment/Plan Chief Complaint/Hosp Course IMPRESSION: 1. Respiratory failure s/p now trach 2. 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 negative troponin x 3 this admit. s/p lexiscan LVEF 22%/no ischemia/prior [place]. Currently improved volume status 3. 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 History of asthma/chronic obstructive pulmonary disease. 6. Glaucoma. 7. History of bradycardia. 8. Hypotension-currrently improved but on midodrine 9. Leukocytosis. 10. Altered mental state. 11. Fevers 12.ARF-improved 14. Anemia-s/p transfusion PRBC's Recc: -Maintain Tele monitoring -Follow BP closely -Follow volume status closely -Will hold on re-inititation of lovenox given recent acute drop in Hgb with patient recent receiving transfusion but will continue asa as tolerated -Continue abx's and f/u cx data -Will continue midodrine at this time but would like to wean as tolerated as is pure afterload Problems: Consultation Date/Type/Reason Admit Date/Time May 01, 2016 at 20:18 Initial Consult Date 05/02/16 Type of Consultation: Cardiology Reason for Consultation CHF/PAF Referring Provider: HOLLI LINDER MD Exam/Review of Systems Vital Signs Vitals Vital Signs Date Time Temp Pulse Resp B/P Pulse Ox O2 Delivery O2 Flow Rate FiO2 06/01/16 12:45 103 06/01/16 11:33 31 100 30 06/01/16 11:30 97.9 128/69 05/30/16 22:46 Mechanical Ventilator Intake and Output 05/31/16 05/31/16 06/01/16 14:59 22:59 06:59 Intake Total 600 ml 765 ml Output Total 410 ml 750 ml Balance 190 ml 15 ml Exam Review of Systems: CONSTITUTIONAL: No fevers, chills. PULMONARY: No sob CARDIOVASCULAR: No chest pain/palpitations GASTROINTESTINAL: No nausea/vomiting. GENITOURINARY: No hematuria/dysuria. MUSCULOSKELETAL: No myagias/arthalgias. PSYCHIATRIC: The patient denies depression. NEUROLOGIC: No weakness Constitutional: alert Psych: no complaints ENMT: mucosa pink and moist Neck: jvd (9 cm water), other (trached), supple Respiratory: diminished breath sounds (at bases/B) Cardiovascular: irregular rhythm Gastrointestinal: non-tender, soft Musculoskeletal: muscle weakness (Generalized) Extremities: edema (none) Neurological: other (No focal deficits) Results Result Diagram: 05/30/160 05/30/160 Medications Medications Current Medications Ondansetron HCl (Zofran Inj) 4 mg Q6H PRN IV NAUSEA AND/OR VOMITING; Start 05/01 at 20:30 Acetaminophen (Tylenol Tab) 650 mg Q6H PRN PO PAIN LEVEL 1-3 OR FEVER Last administered on 05/06/16 08:23; Admin Dose 650 MG; Start 05/01/16 at 20:30 Acetaminophen (Tylenol Supp) 650 mg Q6H PRN [place] PAIN LEVEL 1-3 OR FEVER; Start 05/01/16 at 20:30 Docusate Sodium (Colace) 100 mg Q12H PRN PO CONSTIPATION Last administered on 13:14; Admin Dose 100 MG; Start 05/01/16 at 20:30 Magnesium Hydroxide (Milk Of Mag) 30 ml DAILY PRN PO CONSTIPATION Last administered on 05/03/16 11:52; Admin Dose 30 ML; Start 05/01/16 at 20:30 Bisacodyl (Dulcolax) 5 mg DAILY PRN PO CONSTIPATION; Start 05/01/16 at 20:30 Bisacodyl (Dulcolax Supp) 10 mg DAILY PRN [place] CONSTIPATION; Start 05/01/16 at 20: 30 Sodium Biphosphate/ Sodium Phosphate (Fleet Enema) 133 ml DAILY PRN [place] CONSTIPATION; Start 05/01/16 at 20:30 Pantoprazole (Protonix Iv) 40 mg DAILY@06 IV Last administered on 06/01/16 06: 41; Admin Dose 40 MG; Start 05/02/16 at 06:00 Tamsulosin HCl (Flomax) 0.4 mg HS PO Last administered on 05/31/16 20:52; Admin Dose 0.4 MG; Start 05/03/16 at 21:00 Aspirin (Aspirin) 325 mg DAILY PO Last administered on 06/01/16 09:08; Admin Dose 325 MG; Start 05/04/16 at 09:00; Status Future hold Lorazepam (Ativan) 2 mg Q2 PRN IV AGITATION Last administered on 05/27/16 08:08 ; Admin Dose 2 MG; Start 05/05/16 at 18:00 Morphine Sulfate (morphine) 2 mg Q2H PRN IV PAIN Last administered on 05/31/16 20:52; Admin Dose 2 MG; Start 05/05/16 at 18:00 IV Flush (NS 10 ml) 10 ml PRN PRN IV FLUSH LINE; Start 05/06/16 at 13:00 Potassium Chloride (Potassium Chloride Pwd/Soln) 20 meq DAILY NGT Last administered on 06/01/16 09:07; Admin Dose 20 MEQ; Start 05/20/16 at 09:30 Fluconazole (Diflucan) 100 mg DAILY PO Last administered on 06/01/16 09:09; Admin Dose 100 MG; Start 05/23/16 at 12:30 Midodrine (Proamatine) 7.5 mg TID GTB Last administered on 06/01/16 09:08; Admin Dose 7.5 MG; Start 05/31/16 at 21:00 JAYA GORE Jun 01, 2016 12:54
--- NOTE | 2016-06-01 15:13 | CONS ---
Date/Time of Note Date/Time of Note DATE: 06/01/16 TIME: 15:12 Assessment/Plan Assessment/Plan Chief Complaint/Hosp Course SUBJECTIVE: No acute events, looks comfortable, no fevers INDWELLINGS: Trach, PEG, Alfonso, PICC line placed on 05/06/2016. ANTIMICROBIALS: Diflucan s/p Zosyn. PHYSICAL EXAMINATION: GENERAL: This is a chronically ill-appearing, elderly man who is lying comfortably in bed. HEENT: Head atraumatic, normocephalic. Sclerae anicteric. Buccal mucosa dry. NECK: Supple. CHEST: Rise symmetrical. Breath sounds diminished with scattered crackles to bases. HEART: S1, S2. ABDOMEN: Soft, bowel tones present. EXTREMITIES: Without cyanosis, mottled and cold to touch. ASSESSMENT: 1. S/p septic shock. 2. S/p recurrent pneumonia, possibly aspiration type. 3. Dysphagia==> s/p PEG 4. Respiratory failure. 5. Paroxysmal atrial fibrillation status post permanent pacemaker. PLAN: Remains stable, dc Diflucan, continue vent per pulmonary. DW staff Problems: Consultation Date/Type/Reason Admit Date/Time May 01, 2016 at 20:18 Initial Consult Date 05/05/16 Type of Consultation: id Referring Provider: HOLLI LINDER MD Exam/Review of Systems Vital Signs Vitals Vital Signs Date Time Temp Pulse Resp B/P Pulse Ox O2 Delivery O2 Flow Rate FiO2 06/01/16 12:45 103 06/01/16 11:33 31 100 30 06/01/16 11:30 97.9 128/69 05/30/16 22:46 Mechanical Ventilator Intake and Output 05/31/16 05/31/16 06/01/16 15:00 23:00 07:00 Intake Total 600 ml 765 ml Output Total 410 ml 750 ml Balance 190 ml 15 ml Results Result Diagram: 05/30/16 0400 05/30/16 0400 Medications Medications Current Medications Ondansetron HCl (Zofran Inj) 4 mg Q6H PRN IV NAUSEA AND/OR VOMITING; Start 05/01 at 20:30 Acetaminophen (Tylenol Tab) 650 mg Q6H PRN PO PAIN LEVEL 1-3 OR FEVER Last administered on 05/06/16t 08:23; Admin Dose 650 MG; Start 05/01/16 at 20:30 Acetaminophen (Tylenol Supp) 650 mg Q6H PRN [place] PAIN LEVEL 1-3 OR FEVER; Start 05/01/16 at 20:30 Docusate Sodium (Colace) 100 mg Q12H PRN PO CONSTIPATION Last administered on 13:14; Admin Dose 100 MG; Start 05/01/16 at 20:30 Magnesium Hydroxide (Milk Of Mag) 30 ml DAILY PRN PO CONSTIPATION Last administered on 05/03/16 11:52; Admin Dose 30 ML; Start 05/01/16 at 20:30 Bisacodyl (Dulcolax) 5 mg DAILY PRN PO CONSTIPATION; Start 05/01/16 at 20:30 Bisacodyl (Dulcolax Supp) 10 mg DAILY PRN [place] CONSTIPATION; Start 05/01/16 at 20: 30 Sodium Biphosphate/ Sodium Phosphate (Fleet Enema) 133 ml DAILY PRN [place] CONSTIPATION; Start 05/01/16 at 20:30 Tamsulosin HCl (Flomax) 0.4 mg HS PO Last administered on 05/31/16 20:52; Admin Dose 0.4 MG; Start 05/03/16 at 21:00 Aspirin (Aspirin) 325 mg DAILY PO Last administered on 06/01/16 09:08; Admin Dose 325 MG; Start 05/04/16 at 09:00; Status Future hold Lorazepam (Ativan) 2 mg Q2 PRN IV AGITATION Last administered on 05/27/16 08:08 ; Admin Dose 2 MG; Start 05/05/16 at 18:00 Morphine Sulfate (morphine) 2 mg Q2H PRN IV PAIN Last administered on 05/31/16 20:52; Admin Dose 2 MG; Start 05/05/16 at 18:00 IV Flush (NS 10 ml) 10 ml PRN PRN IV FLUSH LINE; Start 05/06/16 at 13:00 Potassium Chloride (Potassium Chloride Pwd/Soln) 20 meq DAILY NGT Last administered on 06/01/16 09:07; Admin Dose 20 MEQ; Start 05/20/16 at 09:30 Fluconazole (Diflucan) 100 mg DAILY PO Last administered on 06/01/16 09:09; Admin Dose 100 MG; Start 05/23/16 at 12:30 Midodrine (Proamatine) 5 mg TID GTB ; Start 06/01/16 at 21:00 Lansoprazole (Prevacid) 30 mg DAILY@06 GTB ; Start 06/02/16 at 06:00 JOSE G CUNNINGHAM NP Jun 01, 2016 15:13
--- NOTE | 2016-06-01 18:09 | PDOCDIS ---
Discharge Instructions CONDITION Patient Condition: Stable HOME CARE INSTRUCTIONS: Special Diet: Tube Feeding ACTIVITY: Activity Restrictions: Slowly Increase Activity FOLLOW UP/APPOINTMENTS Appointments f/u pcp and snf storage and backup administrator HOLLI LINDER MD Jun 01, 2016 18:09
[2016-06-01] MEDS ORDERED: MIDODRINE 5 MG TAB GTB SCH (21:00)
[2016-06-02] MEDS ORDERED: LANSOPRAZOLE 30 MG CAP GTB SCH (06:00)
== END 2016-06-01 19:15 | DRG 4 ==
LOC: TEL 17:09 → OBSVTOIN 20:18 → ICU 05-05 14:58 → MS4 05-12 18:21 → ICU 05-20 06:05 → TEL 05-30 23:07
PROVIDERS: ADMIT Internal Medicine Nephrology; ATTEND Internal Medicine Nephrology
PROC: 5A1955Z Respiratory Ventilation, Greater than 96 Consecutive Hours (ICD-10-PCS; 2016-05-05)
PROC: 0BH17EZ Insertion of Endotracheal Airway into Trachea, Via Natural or Artificial Opening (ICD-10-PCS; 2016-05-05)
PROC: 02HV33Z Insertion of Infusion Device into Superior Vena Cava, Percutaneous Approach (ICD-10-PCS; 2016-05-06)
PROC: 0BH17EZ Insertion of Endotracheal Airway into Trachea, Via Natural or Artificial Opening (ICD-10-PCS; 2016-05-20)
PROC: 5A1955Z Respiratory Ventilation, Greater than 96 Consecutive Hours (ICD-10-PCS; 2016-05-20)
PROC: 0DH63UZ Insertion of Feeding Device into Stomach, Percutaneous Approach (ICD-10-PCS; 2016-05-22)
PROC: 30233N1 Transfusion of Nonautologous Red Blood Cells into Peripheral Vein, Percutaneous Approach (ICD-10-PCS; 2016-05-26)
PROC: 0B113F4 Bypass Trachea to Cutaneous with Tracheostomy Device, Percutaneous Approach (ICD-10-PCS; principal; 2016-05-26 15:30)
DX: A41.9 Sepsis, unspecified organism (principal); J69.0 Pneumonitis due to inhalation of food and vomit; R65.21 Severe sepsis with septic shock; N17.9 Acute kidney failure, unspecified; I50.23 Acute on chronic systolic (congestive) heart failure; G93.40 Encephalopathy, unspecified; E87.0 Hyperosmolality and hypernatremia; R13.10 Dysphagia, unspecified; J96.00 Acute respiratory failure, unspecified whether with hypoxia or hypercapnia; I46.9 Cardiac arrest, cause unspecified; I42.9 Cardiomyopathy, unspecified; J44.0 Chronic obstructive pulmonary disease with (acute) lower respiratory infection; J44.1 Chronic obstructive pulmonary disease with (acute) exacerbation; R71.0 Precipitous drop in hematocrit; F03.90 Unspecified dementia, unspecified severity, without behavioral disturbance, psychotic disturbance, mood disturbance, and anxiety; H40.9 Unspecified glaucoma; F41.9 Anxiety disorder, unspecified; Z95.0 Presence of cardiac pacemaker; H54.8 Legal blindness, as defined in USA; Z87.891 Personal history of nicotine dependence; D72.829 Elevated white blood cell count, unspecified; J20.9 Acute bronchitis, unspecified; R65.20 Severe sepsis without septic shock; I11.0 Hypertensive heart disease with heart failure; N40.0 Benign prostatic hyperplasia without lower urinary tract symptoms; E87.6 Hypokalemia; R31.9 Hematuria, unspecified
CPT/HCPCS: 31500; 36430; 36569; 36600; 71010; 74000; 76937; 78452; 80048; 80053; 80061; 82533; 82550; 82553; 82803; 82962; 83605; 83735; 83880; 84100; 84132; 84443; 84484; 85025; 85610; 85730; 86850; 86900; 86901; 86920; 87040; 87070; 87075; 87081; 87086; 89220; 92526; 92610; 92950; 93005; 93017; 93306; 94002; 94003; 94640; 94660; 94664; 94770; 94799; G0378; J1940; A4310; A9500; A9505; C9113; J0330; J0690; J1650; J1956; J2060; J2270; J2370; J2543; J2785; J2920; J3010; J3480; J7030; J7040; J7042; J7060; J7070; P9016

== ENCOUNTER 2016-06-06 06:26 | Inpatient (IN) | payer OTHER ==
[2016-06-06] VITALS (35 sets, daily range): BP systolic 84–123; BP diastolic 44–103; PULSE 62–150; RESP 15–28
[~2016-06-06] VITALS: Ht 172.7 cm; Wt 75.0 kg
[2016-06-06] MEDS ORDERED: morphine 4 MG/ML VIAL IV STA ×2 (06:33→07:26)
[2016-06-06] MEDS ORDERED: SOD CHLORIDE 0.9% 1,000 ML IV ONE (07:00)
[2016-06-06] MEDS ORDERED: VANCOMYCIN 1 GM (PMX) 250 ML IVPB SCH (07:00)
[2016-06-06] MEDS ORDERED: PIPER-TAZO 3.375 GM IV (PMX) 100 ML IVPB ONE (07:00)
[2016-06-06] MEDS ORDERED: LEVOFLOXACIN 750MG/D5W (PMX) 150 ML IVPB ONE (07:00)
[2016-06-06] MEDS ORDERED: LIDOCAINE 1% (MDV) 20 ML INJ SC ONE ×2 (07:00→17:00)
[2016-06-06 07:23] LABS: ADD SCAN DIFF NO
--- NOTE | 2016-06-06 07:27 | RADRPT ---
PROCEDURE: XR Chest. CLINICAL INDICATION: Sepsis TECHNIQUE: A single AP view of the chest was obtained. COMPARISON: Chest x-ray dated 05/30/2016 FINDINGS: A tracheostomy tube is in place. There is a right subclavian dual chamber pacemaker. There is mild coarsening of the interstitial markings. There is a rounded consolidation of the righ t lower lobe. No pleural effusion or pneumothorax is seen. The cardiomediastinal silhouette is wit hin normal limits for size. Calcifications are seen within the aortic arch. The osseous structures d emonstrate senescent changes. IMPRESSION: 1. Rounded alveolar opacities in the right lower lobe, concerning for pneumonia. Findings are new when compared to the prior examination. 2. Chronic-appearing underlying interstitial changes. 3. Aortic atherosclerosis. 4. Tubes and lines, as described above. RPTAT: HH .Kaitlin Vieira MD, MD Date Time Electronically viewed and signed by .Kaitlin Vieira MD, on 06/06/2016 07:27 .G/
[2016-06-06 07:29] LABS: ADD UMIC YES; URINE BILIRUBIN (Dip) NEGATIVE (NEGATIVE); URINE BLOOD (Dip) 3+ (NEGATIVE); URINE COLOR YELLOW (YELLOW); URINE GLUCOSE (Dip) NEGATIVE (NEGATIVE); URINE KETONES (Dip) NEGATIVE (NEGATIVE); URINE LEUKOCYTE ESTERASE (Dip) TRACE (NEGATIVE); URINE NITRITE (Dip) NEGATIVE (NEGATIVE); URINE TOTAL PROTEIN (Dip) 1+ (NEGATIVE); URINE UROBILINOGEN (Dip) 0.2 E.U./dL (0.1-1.0)
[2016-06-06 07:30] LABS: ABNORMAL IP MESSAGE 1; HEMATOCRIT 34.7 % (42.0-52.0); HEMOGLOBIN 10.8 g/dl (14.0-18.0); MEAN CORPUSCULAR HEMOGLOBIN 29.3 pg (29.0-33.0); MEAN CORPUSCULAR HGB CONC 31.1 g/dl (32.0-37.0); MEAN CORPUSCULAR VOLUME 94.3 fl (82.0-101.0); MEAN PLATELET VOLUME 10.5 fl (7.4-10.4); PLATELET COUNT 398 10^3/UL (140-415); RED BLOOD COUNT 3.68 10^6/ul (4.70-6.10); RED CELL DISTRIBUTION WIDTH 15.3 % (11.5-14.5); WHITE BLOOD COUNT 36.2 10^3/ul (4.8-10.8)
[2016-06-06 07:40] LABS: INR 1.19; PROTIME 15.2 Sec (12.2-14.2); PT RATIO 1.2
[2016-06-06 07:41] LABS: PARTIAL THROMBOPLASTIN TIME 41.8 Sec (25.0-35.0)
[2016-06-06 07:42] LABS: ALBUMIN 3.1 g/dl (3.3-4.9); ALBUMIN/GLOBULIN RATIO 0.72; BILIRUBIN,INDIRECT 0.4 mg/dl (0-1.1); BILIRUBIN,TOTAL 0.4 mg/dl (0.2-1.3); CALCIUM 8.9 mg/dl (8.4-10.2); CREATININE 1.14 mg/dl (0.61-1.24); TOTAL PROTEIN 7.4 g/dl (6.1-8.1)
[2016-06-06 07:53] LABS: TROPONIN-I 0.07 ng/ml (0.00-0.12)
[2016-06-06 07:56] LABS: BACTERIA,URINE FEW; URINE RBCS >200 /HPF (0)
[2016-06-06] MEDS ORDERED: ASPI325T4 GTB (07:56)
[2016-06-06] MEDS ORDERED: LANS30CA GTB (07:57)
[2016-06-06] MEDS ORDERED: MIDO5TAB19 GTB (07:58)
[2016-06-06] MEDS ORDERED: ONDA4TAB8 GTB (07:59)
[2016-06-06] MEDS ORDERED: TAMS0.4C2 GTB (07:59)
[2016-06-06] MEDS ORDERED: SOD CHLORIDE 0.9% 2,330 ML IV ONE (08:00)
[2016-06-06] MEDS ORDERED: POTA20TA96 GTB (08:00)
[2016-06-06 08:01] LABS: AADO2 Arterial 400.9 mmHg (7.0-24.0); Arterial Base Excess -1.9 mmol/L (-3.0-3); Arterial COHb 0.2 % (0.0-3.0); Arterial Fraction of Oxyhgb 98.6 % (93.0-99.0); Arterial HCO3 20.1 mmol/L (22.0-26.0); Arterial MetHb 0.4 % (0.0-1.5); Arterial Total Hemglobin 11.2 g/dl (12.0-18.0); MODE VENT - AC
[2016-06-06] MEDS ORDERED: AMIN887L GTB (08:01)
[2016-06-06] MEDS ORDERED: ASCO500C7 GTB (08:02)
[2016-06-06] MEDS ORDERED: MULTI GTB (08:02)
[2016-06-06] MEDS ORDERED: ZINC220T GTB (08:03)
--- NOTE | 2016-06-06 08:19 | ERA ---
ER Documentation Chief Complaint Date/Time DATE: 06/06/16 TIME: 627 Chief Complaint LOW O2 SAT PER SNF HPI 85-year-old male brought to the emergency department by ambulance for evaluation of low O2 saturation. Patient is unable to provide any meaningful history as he is nonverbal and tracheostomy and ventilator dependent. According to the paramedics, the patient was found with saturations in the 50s at the care facility. [id number] was performed through the tracheostomy that brought the patient's saturations up into the 90s and patient was brought to the emergency department for evaluation. No further history is available for the transfer paperwork, the care facility, the paramedics. I have reviewed the pecan picker pre-hospital care. Pre-hospital vital signs were reviewed. Pre-hospital diagnostic tests were reviewed. ROS All systems reviewed and are negative except as per history of present illness. Medications Home Meds Reported Medications Zinc Sulfate* (Zinc Sulfate*) 220 Mg Tablet, 220 MG GTB DAILY, TAB 06/06/16 Ascorbic Acid* (Vitamin C*) 500 Mg Capsule.sa, 500 MG GTB DAILY, CAP 06/06/16 Multivitamins* (Theragran*) 1 Tab Tab, 1 TAB GTB DAILY, TAB 06/06/16 Amino Acids/Protein Hydrolys (Pro-Stat 64 Liquid) 887 Ml Liquid, 30 ML GTB DAILY 06/06/16 Potassium Chloride* (Potassium Chloride*) 20 Meq Tablet.er, 20 MEQ GTB DAILY, TAB.SA 06/06/16 Tamsulosin Hcl* (Tamsulosin Hcl*) 0.4 Mg Cap.er.24h, 0.4 MG GTB HS, CAP 06/06/16 Ondansetron Hcl* (Zofran*) 4 Mg Tablet, 4 MG GTB Q6H Y for NAUSEA AND OR VOMITING, TAB 06/06/16 Midodrine* (Midodrine*) 5 Mg Tablet, 5 MG GTB TID, TAB HOLD FOR SBP>140 06/06/16 Lansoprazole* (Lansoprazole*) 30 Mg Capsule.dr, 30 MG GTB DAILY, CAP 06/06/16 Aspirin* (Aspirin*) 325 Mg Tablet, 325 MG GTB DAILY, TAB 06/06/16 Allergies Allergies: Coded Allergies: No Known Allergies (Verified Allergy, Unknown, 05/20/16) PMhx/Soc Anesthesia Reaction: No Hx Respiratory Disorders: Yes (COPD, EMPHYSEMA) Hx Cardiac Disorders: Yes (CHF, PPM) Hx Miscellaneous Medical Probl: Yes (VENT DEPENDENT) Hx Alcohol Use: No Hx Substance Use: No Hx Tobacco Use: No Smoking Status: Unknown if ever smoked FmHx Noncontributory for chief complaint Physical Exam Vitals Vital Signs Date Time Temp Pulse Resp B/P Pulse Ox O2 Delivery O2 Flow Rate FiO2 06/06/16 07:17 102 20 98/55 89 Mechanical Ventilator 06/06/16 06:45 37 100 06/06/16 06:28 99.4 117 22 121/108 83 Physical Exam General: frail, bed bound, ill appearing HEENT: Mucous membranes dry, sclera nonicteric Neck: Tracheostomy noted. Ostomy patent. No inflammatory changes noted. No JVD. Cardiovascular: Tachycardic with no murmurs rubs or gallops Lungs: Transmission of upper airway sounds. Abdomen: Soft with G-tube appreciated. Nontender to palpation. Bowel sounds noted. : Diaper in place and incontinent. Extremities: Atrophic but atraumatic with no edema, cyanosis or clubbing. Neurologic: Baseline organic brain syndrome noted. Gag reflex week. Motor strength diminished in all 4 extremities but otherwise nonfocal. Skin: Skin breakdown noted per nursing note. Result Diagram: 06/06/16 0639 06/06/16 0659 Results 24 hrs Laboratory Tests Test 06/06/16 06:33 06/06/16 06:39 06/06/16 06:51 06/06/16 06:59 Blood Gas Specimen Source Blood arterial Arterial Blood Date Drawn 06/06/2016 7:50:42 AM Arterial Blood pH (Temp corrected) 7.507 Arterial Blood pCO2 (Temp correct) 25.9mmhg Arterial Blood pO2 (Temp corrected) 286.2mmHG Arterial Blood HCO3 20.1mmol/L Arterial Blood Base Excess -1.9mmol/L Arterial Blood Oxygen Saturation 99.2mmHG Zaid Test N/A Arterial Blood Gas Puncture Site LB Arterial Blood Carboxyhemoglobin 0.2% Arterial Blood Methemoglobin 0.4% Blood Gas A-a O2 Differential 400.9mmHg Oxyhemoglobin Percent 98.6% Total Hemoglobin 11.2g/dl Blood Gas Temperature 37.0C Blood Gas Respiration Rate 16.0 Blood Gas Actual Respiration Rate 22 Blood Gas Modality VENT - AC FiO2 100.0% Blood Gas Tidal Volume 600.0mL Blood Gas Low PEEP Setting 5.0cmH2O Blood Gas Notified Whom JLD Blood Gas Notified Time 06/06/2016 8:00:37 AM White Blood Count 36.210^3/ul Red Blood Count 3.6810^6/ul Hemoglobin 10.8g/dl Hematocrit 34.7% Mean Corpuscular Volume 94.3fl Mean Corpuscular Hemoglobin 29.3pg Mean Corpuscular Hemoglobin Concent 31.1g/dl Red Cell Distribution Width 15.3% Platelet Count 90109^3/UL Mean Platelet Volume 10.5fl Neutrophils % % Eosinophils % % Neutrophils # 10^3/ul Eosinophils # 10^3/ul Urine Color YELLOW Urine Clarity SLIGHTLY CLOUDY Urine pH 5.5 Urine Specific [place] 1.015 Urine Ketones NEGATIVE Urine Nitrite NEGATIVE Urine Bilirubin NEGATIVE Urine Urobilinogen 0.2 E.U./dL Urine Leukocyte Esterase TRACE Urine Microscopic RBC >200/HPF Urine Microscopic WBC 2-5/HPF Urine Epithelial Cells RARE Urine Calcium Oxalate Crystals FEW Urine Amorphous Urates FEW Urine Bacteria FEW Urine Hemoglobin 3+ Urine Glucose NEGATIVE% Urine Total Protein 1+ Prothrombin Time 15.2Sec Prothrombin Time Ratio 1.2 INR International Normalized Ratio 1.19 Activated Partial Thromboplast Time 41.8Sec Sodium Level 135mmol/L Potassium Level 5.0mmol/L Chloride Level 98mmol/L Carbon Dioxide Level 25mmol/L Anion Gap 17 Blood Urea Nitrogen 36mg/dl Creatinine 1.14mg/dl Glucose Level 108mg/dl Lactic Acid Level 5.4mmol/L Calcium Level 8.9mg/dl Total Bilirubin 0.4mg/dl Direct Bilirubin 0.00mg/dl Indirect Bilirubin 0.4mg/dl Aspartate Amino Transf (AST/SGOT) 46IU/L Alanine Aminotransferase (ALT/SGPT) 29IU/L Alkaline Phosphatase 106IU/L Troponin I 0.070ng/ml Total Protein 7.4g/dl Albumin 3.1g/dl Globulin 4.30g/dl Albumin/Globulin Ratio 0.72 Current Medications Medications (Trade) Dose Ordered Sig/Deanna Route PRN Reason Start Time Stop Time Status Last Admin Dose Admin Sodium Chloride (NS) 1,000 ml @ 1,000 mls/hr Q1H ONCE IV 06/06/16 07:00 06/06/16 07:00 DC Morphine Sulfate 4 mg 4 mg ONCE STAT IV 06/06/16 06:33 06/06/16 06:35 DC 06/06/16 06:47 Piperacillin Sod/ Tazobactam Sod 100 ml @ 200 mls/hr ONCE ONCE IVPB 06/06/16 07:00 06/06/16 07:29 DC 06/06/16 07:12 Vancomycin HCl 250 ml @ 125 mls/hr ONCE IVPB 06/06/16 07:00 06/06/16 08:59 Levofloxacin/ Dextrose (Levaquin 750 Mg/ D5W 150 ml (Pmx)) 150 ml @ 100 mls/hr ONCE ONCE IVPB 06/06/16 07:00 06/06/16 08:29 06/06/16 08:11 Lidocaine (Xylocaine 1% (Mdv) 20 ml) 20 ml ONCE ONCE SC 06/06/16 07:00 06/06/16 07:01 DC Morphine Sulfate 4 mg 4 mg ONCE STAT IV 06/06/16 07:26 06/06/16 07:27 DC 06/06/16 07:31 Sodium Chloride (NS) 2,330 ml @ 776.666 mls/hr BOLUS X1 ONCE IV 06/06/16 08:00 06/06/16 10:59 Procedures/MDM Patient was taken to a room, seen and evaluated. Comfort measures were initiated. Diagnostic tests were ordered and reviewed. 3 LEAD RHYTHM STRIP: Sinus tachycardia then noted to be in atrial flutter with controlled ventricular response EK lead EKG reviewed by myself: Atrial flutter with controlled ventricular response Normal [place] and intervals ST depressions in the anterior leads without ST elevation Impression: Abnormal nonspecific EKG. RADIOLOGY: reviewed with the radiologist CONSULTATION: Dr. Ramirez was notified for admission REEVALUATION: Patient's initial blood pressure was normal and his last discharge summary indicated he had a significant cardiomyopathy with a decreased ejection fraction. I therefore withheld fluids until diagnostic tests were available. At approximately 0805, patient's elevated white blood cell count and lactic acid was noted and I noted severe sepsis. Patient was then started on aggressive fluid resuscitation with 30 cc/kg, I had ordered antibiotics initially for healthcare associated/ventilator associated pneumonia. Patient's blood pressure continues to be monitored for need for pressors. I have requested a PICC line which is pending. From an oxygen standpoint, patient's ventilator management has been performed by myself with O2 saturations that are improving MEDICAL DECISION MAKIN-year-old ventilator dependent male with multiple comorbid conditions including congestive heart failure presents to the emergency department with decreased O2 saturation. Differential diagnosis was broad and potential high acuity but ultimately demonstrates evidence of a severe sepsis/septic shock likely secondary from a ventilator associated/ healthcare associated pneumonia complicated by his underlying heart disease and comorbid conditions. Patient is required aggressive fluid management, antibiotics, ventilator management, as well as comfort measures with morphine. Patient will require further admission to the hospital for ongoing treatment as he is full CODE STATUS. Severe Sepsis Critical Care: Assessment: Infectious Source: Ventilator associated/healthcare associated pneumonia End organ damage indicated by: Initial Lactate: reviewed, respiratory failure with hypoxemia Severe Sepsis Managment: Blood Cultures X 2 before broad spectrum antibiotics initiated within 3 hours of recognition. 30 ml/kg NS bolus ongoing Initial Lactate: reviewed Repeat Lactate pending Critical Care: Time: > 35 minutes Treatments/Evaluations: Emergent fluid management, while maintaining close respiratory support. Immediate broad spectrum antibiotic therapy. Simultaneous assessment for possible sources in order to direct therapy. Consideration for invasive and chemical support to prevent respiratory or cardiac collapse. Septic Shock Assessment (1 hour post 30 ml/kg fluid bolus): Time of repeat evaluation 08 20 Hypotension (SBP < 90 or 40 mmHg drop, MAP < 65): No Lactic acid > 4.0: Yes Perfusion Reassessment for Septic Shock: Vital signs noted per nursing note Heart Exam: Ventricular rate controlled Lung Exam: Transmission of upper airway sounds, ventilated Capillary Refill: Delayed Peripheral Pulses: Radially present Departure Diagnosis: Primary Impression: Severe sepsis Additional Impressions: Acute hypoxemic respiratory failure Ventilator associated pneumonia Healthcare-associated pneumonia Condition: Critical BONG SPENCER Jun 06, 2016 08:19
[2016-06-06 08:59] LABS: LYMPHOCYTES # 0.7 10^3/ul (0.8-2.9); MONOCYTE # 0.4 10^3/ul (0.3-0.9); MYELOCYTES # 0.4; NEUTROPHIL # 31.1 10^3/ul (1.6-7.5)
[2016-06-06] MEDS ORDERED: ONDANSETRON 4 MG INJ IV PRN (10:30)
[2016-06-06] MEDS ORDERED: MAGNESIUM HYDROXIDE 30ML CUP PO PRN (10:30)
[2016-06-06] MEDS ORDERED: NALOXONE (0.4 MG/ML) INJ IV PRN (10:30)
[2016-06-06] MEDS ORDERED: NITROGLYCERIN (SL) 0.4 MG TAB SL PRN (10:30)
[2016-06-06] MEDS ORDERED: DOCUSATE SODIUM 100 MG CAP PO PRN (10:30)
[2016-06-06] MEDS ORDERED: BISACODYL (EC) 5 MG TAB PO PRN (10:30)
[2016-06-06] MEDS ORDERED: FLUMAZENIL 0.5 MG INJ IV PRN (10:30)
[2016-06-06] MEDS: SOD CHLORIDE 0.45% 1,000 ML IV SCH (10:45)
[2016-06-06] MEDS: METHYLPREDNISOLONE 125 MG INJ IV SCH ×3 (12:03→23:40)
[2016-06-06] MEDS ORDERED: VANCOMYCIN IV PER PHARMACY XX SCH (12:30)
[2016-06-06] MEDS ORDERED: ALBUTEROL/IPRATROPIUM (NEB) 3 ML AMP NEB SCH (13:00)
[2016-06-06] MEDS ORDERED: IPRATROPIUM (NEB) 0.5 MG/2.5 ML AMP NEB SCH (13:00)
--- NOTE | 2016-06-06 13:14 | PN ---
DATE: 06/06/2016 SUBJECTIVE: Patient was recently discharged from the hospital and readmitted with sepsis and shock. White blood cell count 36.2, H and H 10.8 and 34.7, platelets 398, neutrophils 86, bands 9. Lenka l electrolytes. BUN 36, creatinine 1.14. Lactic acid 5.4. Urinalysis positive for trace leukocyte esterase, WBC, few bacteria. MICROBIOLOGY: Urine culture preliminary negative. DIAGNOSTICS: Chest x-ray this morning revealed rounded alveolar opacities in the right lower lobe c oncerning for pneumonia. INDWELLINGS: Trach, PEG, Alfonso. ANTIMICROBIALS: The patient is on Zosyn and steroids. PHYSICAL EXAMINATION: GENERAL: This is a chronically ill-appearing, elderly man who is in no distress. HEENT: Head atraumatic, normocephalic. Sclerae anicteric. Buccal mucosa dry. NECK: Supple. Tracheostomy present. CHEST: Rise symmetrical. Breath sounds diminished to bases. HEART: S1, S2. ABDOMEN: Soft, bowel tones present. EXTREMITIES: Without cyanosis. ASSESSMENT: 1. Severe sepsis with shock, responding to IV fluids. 2. Recurrent pneumonia. 3. Urinary tract infection as per urinalysis. 4. Chronic respiratory failure. 5. Dysphagia, status post percutaneous endoscopic gastrostomy. 6. Coronary artery disease with a history of permanent pacemaker. PLAN: We are going to start the patient on meropenem and vancomycin. We will send blood and sputum culture. Continue present care. Follow recommendations of consultants. Dictated By: JOSE G CUNNINGHAM ASSISTANT BRANCH MANAGER for RASHIDA HUSSEIN/TRACY Conf#: [id number] DID#: [id number]
[2016-06-06] MEDS: MEROPENEM 500 MG/100 ML (PMX) 100 ML IVPB SCH ×2 (14:22→21:50)
[2016-06-06] MEDS ORDERED: PIPER-TAZO 3.375 GM IV (PMX) 100 ML IVPB SCH (14:30)
[2016-06-06] MEDS ORDERED: PENDING SANTYL ORDER FOR WOUND CARE XX PRN (15:30)
[2016-06-06] MEDS ORDERED: ALBUTEROL 18 GM INHALER INH SCH (17:00)
[2016-06-06] MEDS ORDERED: ALBUTEROL HFA 8 GM INHALER ONE (17:04)
[2016-06-06] MEDS: IPRATROPIUM (HFA) 12.9 GM INHALER INH SCH ×2 (17:10→20:59)
[2016-06-06] MEDS: ALBUTEROL 18 GM INHALER INH SCH ×3 (17:11→20:59)
--- NOTE | 2016-06-06 22:06 | QN ---
Documentation Comment [id number] HOLLI LINDER MD Jun 06, 2016 22:06
[2016-06-06] MEDS: VANCOMYCIN 1.25 GM in SOD CHLORIDE 0.9% 250 ML IVPB SCH (23:40)
[2016-06-07] VITALS (59 sets, daily range): BP systolic 82–136; BP diastolic 48–114; PULSE 75–118; RESP 17–33
[2016-06-07] MEDS: IPRATROPIUM (HFA) 12.9 GM INHALER INH SCH ×6 (01:11→21:40)
[2016-06-07] MEDS: ALBUTEROL 18 GM INHALER INH SCH ×6 (01:11→21:52)
[2016-06-07] MEDS: SOD CHLORIDE 0.45% 1,000 ML IV SCH ×2 (01:36→14:40)
[2016-06-07 04:52] LABS: ADD SCAN DIFF NO
[2016-06-07 05:01] LABS: ABNORMAL IP MESSAGE 1; HEMATOCRIT 26.5 % (42.0-52.0); HEMOGLOBIN 8.6 g/dl (14.0-18.0); MEAN CORPUSCULAR HEMOGLOBIN 29.8 pg (29.0-33.0); MEAN CORPUSCULAR HGB CONC 32.5 g/dl (32.0-37.0); MEAN CORPUSCULAR VOLUME 91.7 fl (82.0-101.0); PLATELET COUNT 315 10^3/UL (140-415); RED BLOOD COUNT 2.89 10^6/ul (4.70-6.10); RED CELL DISTRIBUTION WIDTH 15.4 % (11.5-14.5)
[2016-06-07 05:29] LABS: ALBUMIN 2.3 g/dl (3.3-4.9)
[2016-06-07 05:30] LABS: POTASSIUM 3.4 mmol/L (3.5-5.1)
[2016-06-07 05:32] LABS: ALBUMIN/GLOBULIN RATIO 0.63; BILIRUBIN,INDIRECT 0.2 mg/dl (0-1.1); BILIRUBIN,TOTAL 0.2 mg/dl (0.2-1.3); TOTAL PROTEIN 5.9 g/dl (6.1-8.1)
[2016-06-07 05:33] LABS: CALCIUM 7.9 mg/dl (8.4-10.2)
[2016-06-07 05:36] LABS: WHITE BLOOD COUNT 31.1 10^3/ul (4.8-10.8)
--- NOTE | 2016-06-07 05:42 | RADRPT ---
PROCEDURE: XR Chest. CLINICAL INDICATION: Line placement TECHNIQUE: A single AP view of the chest was obtained. COMPARISON: Chest x-ray performed earlier on the same date FINDINGS: A tracheostomy tube is in place. There is a right subclavian dual chamber pacemaker. There has bee n interval insertion of a left upper extremity PICC line, the tip is coiled within the SVC. There is prominence of the central pulmonary vascular and interstitial markings. There are right lo wer lobe alveolar opacities. There are small bilateral pleural effusions. The cardiomediastinal compa houette is mildly enlarged. Calcifications are seen within the aortic arch. The osseous structures demonstrate senescent changes. IMPRESSION: 1. Findings suggestive of pulmonary vascular congestion with small bilateral pleural effusions, inc reased when compared to the prior examination. 2. Right lower lobe alveolar opacities, concerning for pneumonia, also mildly increased. The 3 mil d cardiomegaly and aortic atherosclerosis. 4. Tubes and lines, as described above. RPTAT: .Kaitlin Vieira MD, MD Date Time Electronically viewed and signed by .Kaitlin Vieira MD, on 06/07/2016 05:42 .G/
--- NOTE | 2016-06-07 05:43 | RADRPT ---
PROCEDURE: XR Chest. CLINICAL INDICATION: Line placement TECHNIQUE: A single AP view of the chest was obtained. COMPARISON: Chest x-ray performed earlier on the same date FINDINGS: A tracheostomy tube is in place. There is a right subclavian dual chamber pacemaker. There has bee n interval repositioning of a left upper extremity PICC line, the tip is now directed superiorly wit hin the upper SVC. There is prominence of the central pulmonary vascular and interstitial markings. There are right lo wer lobe alveolar opacities. There are small bilateral pleural effusions. The cardiomediastinal compa houette is mildly enlarged. Calcifications are seen within the aortic arch. The osseous structures demonstrate senescent changes. IMPRESSION: 1. Findings suggestive of pulmonary vascular congestion with small bilateral pleural effusions, no significant interval change. 2. Right lower lobe alveolar opacities, concerning for pneumonia, also mildly increased. 3. Mild cardiomegaly and aortic atherosclerosis. 4. Tubes and lines, as described above. RPTAT: > .Kaitlin Vieira MD, MD Date Time Electronically viewed and signed by .Kaitlin Vieira MD, on 06/07/2016 05:43 .G/
--- NOTE | 2016-06-07 05:44 | RADRPT ---
PROCEDURE: XR Chest. CLINICAL INDICATION: Line placement TECHNIQUE: A single AP view of the chest was obtained. COMPARISON: Chest x-ray performed earlier on the same date FINDINGS: A tracheostomy tube is in place. There is a right subclavian dual chamber pacemaker. There has bee n interval repositioning of a left upper extremity PICC line, the tip is now near the cavoatrial bhupendra ction. There is prominence of the central pulmonary vascular and interstitial markings. There are right lo wer lobe alveolar opacities. There are small bilateral pleural effusions. The cardiomediastinal compa houette is mildly enlarged. Calcifications are seen within the aortic arch. The osseous structures demonstrate senescent changes. IMPRESSION: 1. Findings suggestive of pulmonary vascular congestion with small bilateral pleural effusions, no significant interval change. 2. Right lower lobe alveolar opacities, concerning for pneumonia, also mildly increased. 3. Mild cardiomegaly and aortic atherosclerosis. 4. Tubes and lines, as described above. RPTAT: > .Kaitlin Vieira MD, MD Date Time Electronically viewed and signed by .Kaitlin Vieira MD, MD on 06/07/2016 05:44 .G/
[2016-06-07] MEDS: PANTOPRAZOLE 40 MG INJ IV SCH (06:02)
[2016-06-07] MEDS: METHYLPREDNISOLONE 125 MG INJ IV SCH ×4 (06:02→23:40)
--- NOTE | 2016-06-07 07:32 | HP ---
DATE OF ADMISSION: 06/06/2016 HISTORY OF PRESENT ILLNESS: The patient is an 85-year-old male recently discharged from this hospital with diagnosis of congestive heart failure, atrial fibrillation, decreased ejection fraction, G-tube placement, tracheostomy , sepsis, pneumonia. The patient was seen previously by Dr. Kapadia, Dr. Etienne and Dr. Kendrick for status post septic shock, status post recurrent pneumonia, dysphagia, respiratory failure, paroxysmal atrial fibrillation. The patient's other diagnoses include the patient has respiratory failure; CHF, systolic, acute on chronic; left ventricular ejection fraction 25% to 30%. The patient status post Lexiscan, also no ischemia. The patient has history of cardiac arrhythmia, history of asthma, history of COPD, history of glaucoma, history of tachycardia, history of anemia and blood transfusion. PAST MEDICAL HISTORY: As mentioned above. Briefly, tracheostomy, G-tube placement, PAF, congestive heart failure, pneumonia. ALLERGY HISTORY: NEGATIVE. FAMILY HISTORY: Negative. SOCIAL HISTORY: Negative. At this point, this patient is unable to give any detailed history. MEDICATION HISTORY: Home medication, patient is on: 1. Ascorbic acid. 2. Aspirin. 3. Prevacid. 4. Midodrine. 5. Multiple ointments. 6. Zofran. 7. Protonix. 8. Flomax. 9. Zinc sulfate. The patient now on: 1. Bisacodyl. 2. Santyl. 3. ____ sodium. 4. Lovenox. 5. Romazicon. 6. Methylprednisolone. 7. Morphine. 8. Nitroglycerin. 9. Protonix. 10. Vancomycin. REVIEW OF SYSTEMS: Cannot be obtained. PHYSICAL EXAMINATION: GENERAL: The patient is awake, on vent. VITAL SIGNS: Pulse 100, blood pressure stable. HEENT: Head is atraumatic, normocephalic. Pupils equal and reac_ both eyes. NECK: Supple. CARDIOVASCULAR: S1, S2 are normal, irregular. ABDOMEN: Soft, nontender. Bowel sounds present. No palpable mass. EXTREMITIES: No cyanosis, clubbing, edema, trace. The patient had decubitus noted in the back sacral area wound+ LABORATORY DATA: WBC count is 6.2, hematocrit 34.7, platelet count of 398. Sodium 135, potassium 5, lactic acid 5.4. ABG . IMAGING: The patient has a chest x-ray, shows rounded alveolar opacity in the right lower lobe and chronic-appearing interstitial changes, aortic atherosclerosis. IMPRESSION: 1. Septic shock. 2. Pneumonia. 3. Leukocytosis. 4. Hematuria. 5. Lactic acidosis. 6. Respiratory failure. 7. Gastrostomy tube placement. 8. Anemia. 9. Atrial fibrillation. 10. History of congestive heart failure with decreased ejection fraction. 11. History ____ negative. 12. History of paroxysmal atrial fibrillation. 13. The patient now has decubitus. PLAN: Continue wound care, antibiotic. Cardiology consultation, pulmonary consultation. G-tube feeding. Will continue home medication. Orders were done. Dictated By: HOLLI LINDER MD BS/TRACY Conf#: [id number] DID#: [id number] MTDD
--- NOTE | 2016-06-07 08:00 | CONS ---
DATE OF ADMISSION: 06/06/2016 DATE OF CONSULTATION: 06/06/2016 TYPE OF CONSULTATION: Cardiology. REFERRING PHYSICIAN: Bladimir Ramirez MD REASON FOR EVALUATION: Atrial flutter HISTORY OF PRESENT ILLNESS: Mr. Mcdaniels is an 85-year-old gentleman known to me from multiple prior a dmissions, history of palpitations, dyslipidemia, history of bradycardia, prior history of pacemaker placement, history of hypertension, comes to the hospital now for evaluation of the infection-relat ed hypertension. I have been asked to see patient in consultation because of atrial flutter as well as a pacemaker. The patient appears to be in flutter now. He is fairly tachycardic with appropriat e rate conduction. The patient's blood pressure improved to 90s with hydration. The patient is not on any anticoagulation except for Lovenox 40 and aspirin. I think for now, conservative therapy is expected. The patient has aspirin 325 and is ____ for DVT prophylaxis. There is no evidence of pa cemaker malfunction. Conservative therapy now is expected to support his blood pressure. Other todd n that, the patient will be on antibiotics again due to his multiple debilitating illnesses. I do n ot think he would be a good candidate for any invasive therapy right now. PAST MEDICAL HISTORY: 1. Hypertension. 2. Coronary artery disease. 3. History of respiratory failure with chronic trach. 4. History of pacemaker placement. 5. History of bradycardia. 6. ____ 7. Congestive heart failure. ALLERGIES: NONE. SOCIAL HISTORY: The patient does not smoke, does not drink, does not use drugs. FAMILY HISTORY: Negative for sudden cardiac , premature coronary artery disease. MEDICATIONS: The patient is on: 1. Zinc sulfide. 2. Ascorbic acid. 3. Multivitamins. 4. Potassium chloride. 5. Tamsulosin. 6. Midodrine 5 mg p.o. as needed 3 times a day. 7. Aspirin 325 mg once a day. 8. Lovenox 40 mg subcutaneous once a day. REVIEW OF SYSTEMS: The patient is not able to provide any review of system because of his debilitat ed state. CONSTITUTIONAL: No fevers, but some possible chills. The patient is with infection. HEENT: ____. CARDIAC: Tachycardia, pacemaker. RESPIRATORY: Short of breath, acute on chronic. GASTROINTESTINAL: No nausea, vomiting or dysphagia. GENITOURINARY: No dysuria, hematuria. NEUROLOGIC: Prior history of CVA. PSYCHIATRIC: No known history of psychiatric illness. PHYSICAL EXAMINATION: VITAL SIGNS: Temperature is 98.6, heart rate 68, and blood pressure 90/59. GENERAL: He is a thin gentleman in no acute distress, alert and oriented x0, not aware of his condi tion. HEAD: Normocephalic, atraumatic.. NECK: With a trach. LYMPH: No lymphadenopathy. HEART: Irregular with occasional irregularities. PMI is nondisplaced. The patient is ____ LUNGS: Coarse with scattered wheezes. ABDOMEN: Distended, bowel sounds are present. ____ Exam is intact. EXTREMITIES: Show no clubbing, cyanosis or edema. ECG read by me shows atrial flutter with a regularized response. I do not appreciate any pacing spi kes, which is appropriate. LABORATORY DATA: Sodium 135, potassium 5.0, BUN is ____, creatinine 1.4. Troponin is negative at 0 .07. White blood cell count 36.3, hemoglobin is 10.8, platelets 398. ASSESSMENT AND PLAN: 1. Atrial flutter. The patient is in atrial flutter now , he is on aspirin. Reasonable to proceed for now. He is also on Lovenox at a dose of 40 once a day, which is subtherapeutic for full antico agulation, but it is reasonable to follow for now. 2. Hypotension. Blood pressure is in the 90s. Will use midodrine as indicated. The patient is not on pressors now. Continue to treat his infection. 3. Coronary artery disease. The patient has history of coronary artery disease. Troponin is negat millicent, no signs of ischemia now. 4. Respiratory failure. Continue to adjust vent settings as needed. Continue respiratory support. 5. Anemia, no evidence of bleeding. We will follow. 6. Leukocytosis. ____ 36, continue antibiotics. Continue treatment for presumed infectious proces s. The patient is awaiting peripheral insertion of central catheter for optimization of fluids and antibiotics. I would like to thank Dr. Bladimir Ramirez for referring this patient for my evaluation. Dictated By: ZEUS CHAPPELL MD ML/NTS Conf#: [id number] DID#: [id number]
[2016-06-07 09:49] LABS: LYMPHOCYTES # 0.6 10^3/ul (0.8-2.9); MONOCYTE # 0.6 10^3/ul (0.3-0.9); NEUTROPHIL # 28.9 10^3/ul (1.6-7.5)
[2016-06-07 09:50] LABS: POLYCHROMASIA OCCASIONAL
[2016-06-07] MEDS ORDERED: POTASSIUM CHLORIDE 250 ML IVPB ONE (10:00)
[2016-06-07] MEDS: ZINC SULFATE 220 MG CAP GTB SCH (10:19)
[2016-06-07] MEDS: ASPIRIN 325 MG TAB GTB SCH (10:19)
[2016-06-07] MEDS: MULTIVITAMINS 5 ML CUP GTB SCH (10:19)
[2016-06-07] MEDS: ASCORBIC ACID 500 MG TAB GTB SCH (10:19)
[2016-06-07] MEDS: MEROPENEM 500 MG/100 ML (PMX) 100 ML IVPB SCH ×2 (10:19→21:12)
[2016-06-07] MEDS: COLLAGENASE 30 GM TUBE TOP SCH (10:30)
[2016-06-07] MEDS: ENOXAPARIN 40 MG/0.4 ML SYG SC SCH (10:30)
--- NOTE | 2016-06-07 10:48 | CONS ---
Date/Time of Note Date/Time of Note DATE: 06/07/16 TIME: 10:44 Assessment/Plan Assessment/Plan Additional Assessment/Plan Data settings; AC of 16, tidal volume 500, PEEP of 5, 30% FiO2. Chest x-ray was reviewed from yesterday which is essentially unremarkable except for very scant right lower lobe infiltrate. Assessment recommendations; next 1. Patient admitted for sepsis possibly from sacral ulcer. 2. Multiple other comorbidities including atrial fibrillation, recurrent sepsis , respiratory failure, advanced dementia, and cardiomyopathy. Continue current treatment. Ventilator settings have been adjusted, AC rate has been switched down to 14, with tidal volume of 400 as the patient is now mildly alkalotic. Overall prognosis remains extremely poor. Continue broad spectrum antibiotic coverage for now. Consultation Date/Type/Reason Admit Date/Time Jun 06, 2016 at 08:08 Date of Consultation: Jun 07, 2016 Type of Consultation: Pulmonary/critical care Reason for Consultation Pulmonary consultation obtained for evaluation of respiratory failure and sepsis. History presenting; patient is a 85-year-old white male who was recently discharged to [facility] after a prolonged stay at [facility] for respiratory failure pneumonia and sepsis. The patient was sent over because of hypotension. Upon evaluation here the patient does have significant leukocytosis however chest x-ray was done which is essentially unremarkable patient has been admitted to ICU and started on broad-spectrum antibiotic coverage. There is no history of severe dementia patient is unresponsive and unable to give any history whatsoever. History was obtained from medical records. Past medical history; 1. Patient with a history of chronic respiratory failure status post tracheostomy and G-tube. 2. Advanced dementia. 3. Recurrent pneumonia and sepsis. 4. Atrial fib relation. 5. Sacral decubitus ulcer. 6. Congestive heart failure. Medications; were reviewed. Allergies; are none. Social history, family history not available. Review systems; unable to be obtained. General exam; elderly male, on ventilator via tracheostomy currently in no distress unresponsive. Social History Smoking Status: Unknown if ever smoked Exam/Review of Systems Vital Signs Vitals Vital Signs Date Time Temp Pulse Resp B/P Pulse Ox O2 Delivery O2 Flow Rate FiO2 06/07/16 09:30 88 31 98 30 06/07/16 06:30 116/48 Mechanical Ventilator 06/07/16 04:00 98.7 06/06/16 17:29 15.0 Intake and Output 06/06/16 06/06/16 06/07/16 15:00 23:00 07:00 Intake Total 450 ml 1210 ml 1044.666 ml Output Total 205 ml 340 ml 190 ml Balance 245 ml 870 ml 854.666 ml Exam HEENT exam; supple neck, tracheostomy placed with clean insertion site. Patient is edentulous. Has bilateral corneal opacities. No neck masses, no thyromegaly no neck bruits. Pharynx is clear. Chest examination [place]: Clear to auscultation. S1-S2 audible, no murmurs. Irregular rhythm. Abdomen examination; soft, G-tube in place. Nondistended. No organomegaly. Bowel sounds audible. Extremity exam is; no peripheral edema. Back examination reveals ulcer involving the sacrum. TOUR COORDINATOR examination; patient remains unresponsive. Results Result Diagram: 06/07/16 0400 06/07/16 0400 Results 24 hrs Laboratory Tests Test 06/06/16 12:24 06/07/16 04:00 Lactic Acid Level 3.1 H White Blood Count 31.1 H Red Blood Count 2.89 #L Hemoglobin 8.6 #L Hematocrit 26.5 #L Mean Corpuscular Volume 91.7 Mean Corpuscular Hemoglobin 29.8 Mean Corpuscular Hemoglobin Concent 32.5 Red Cell Distribution Width 15.4 H Platelet Count 315 # Mean Platelet Volume 11.0 H Neutrophils % 93.0 H Band Neutrophils % 3.0 Lymphocytes % 2.0 L Monocytes % 2.0 Neutrophils # 28.9 H Lymphocytes # 0.6 L Monocytes # 0.6 Giant Platelets RARE Polychromasia OCCASIONAL Sodium Level 136 Potassium Level 3.4 L Chloride Level 104 Carbon Dioxide Level 22 Anion Gap 13 Blood Urea Nitrogen 31 H Creatinine 1.00 Glucose Level 169 Calcium Level 7.9 L Total Bilirubin 0.2 Direct Bilirubin 0.00 Indirect Bilirubin 0.2 Aspartate Amino Transf (AST/SGOT) 27 Alanine Aminotransferase (ALT/SGPT) 28 Alkaline Phosphatase 70 Total Protein 5.9 #L Albumin 2.3 L Globulin 3.60 H Albumin/Globulin Ratio 0.63 Medications Medications Current Medications Sodium Chloride (1/2 NS) 1,000 ml @ 80 mls/hr [id number] IV Last administered on 06/07/16t 01:36; Admin Dose 80 MLS/HR; Start 06/06/16 at 10:01 Flumazenil (Romazicon) 0.2 mg Q1M PRN IV BENZODIAZEPINE OVERDOSE; Start at 10:30 Naloxone HCl (Narcan) 0.4 mg Q3M PRN IV DECREASED REPIRATORY RATE; Start at 10:30 Ondansetron HCl (Zofran Inj) 4 mg Q6H PRN IV NAUSEA AND/OR VOMITING; Start 01/12 at 10:30 Methylprednisolone Sodium Succinate (Solu-Medrol) 125 mg Q6 IV Last administered on 06/07/16 06:02; Admin Dose 125 MG; Start 06/06/16 at 12:00 Nitroglycerin (Nitroglycerin (Sl Tab) 0.4 Mg) 1 tab Q5M PRN SL CHEST PAIN; Start 06/06/16 at 10:30 Acetaminophen (Tylenol Liquid) 650 mg Q6H PRN PO PAIN LEVEL 1-3 OR FEVER; Start 06/06/16 at 10:30 Morphine Sulfate (morphine) 2 mg Q4H PRN IV PAIN LEVEL 7-10; Start 06/06/16 at 10:30 Docusate Sodium (Colace) 100 mg Q12H PRN PO CONSTIPATION; Start 06/06/16 at 10: 30 Magnesium Hydroxide (Milk Of Mag) 30 ml DAILY PRN PO CONSTIPATION; Start at 10:30 Bisacodyl (Dulcolax) 5 mg DAILY PRN PO CONSTIPATION; Start 06/06/16 at 10:30 Pantoprazole (Protonix Iv) 40 mg DAILY@06 IV Last administered on 06/07/16 06: 02; Admin Dose 40 MG; Start 06/07/16 at 06:00 Enoxaparin Sodium 40 mg 40 mg DAILY SC Last administered on 06/07/16 10:30; Admin Dose 40 MG; Start 06/07/16 at 09:00 Meropenem 100 ml @ 200 mls/hr Q12 IVPB Last administered on 06/07/16 10:19; Admin Dose 200 MLS/HR; Start 06/06/16 at 13:00 Vancomycin HCl/ Sodium Chloride (Vancocin/NS) 250 ml @ 83.333 mls/ hr Q24H IVPB Last administered on 06/06/16 23:40; Admin Dose 83.333 MLS/HR; Start 01/12 at 23:00 Collagenase (Santyl) 1 applic DAILY TOP Last administered on 06/07/16 10:30; Admin Dose 1 APPLIC; Start 06/07/16 at 09:00 Collagenase (Santyl) 1 applic PRN PRN TOP WOUND CARE; Start 06/06/16 at 16:00 IV Flush (NS 10 ml) 10 ml PRN PRN IV IV PROTOCOL; Start 06/06/16 at 18:30 Ascorbic Acid (Vitamin C) 500 mg DAILY GTB Last administered on 06/07/16 10:19 ; Admin Dose 500 MG; Start 06/07/16 at 09:00 Aspirin (Aspirin) 325 mg DAILY GTB Last administered on 06/07/16 10:19; Admin Dose 325 MG; Start 06/07/16 at 09:00 Multivitamins (Thera-Plus) 5 ml DAILY GTB Last administered on 06/07/16 10:19 ; Admin Dose 5 ML; Start 06/07/16 at 09:00 Tamsulosin HCl (Flomax) 0.4 mg HS PO ; Start 06/07/16 at 21:00 Zinc Sulfate 220 mg 220 mg DAILY GTB Last administered on 06/07/16 10:19; Admin Dose 220 MG; Start 06/07/16 at 09:00 Potassium Chloride (KCl 40 MEQ/250 ML NS) 250 ml @ 62.5 mls/hr ONCE ONCE IVPB ; Start 06/07/16 at 10:00; Stop 06/07/16 at 13:59 GERALDINE CUNNINGHAM Jun 07, 2016 10:48
[2016-06-07] MEDS: morphine 2 MG INJ IV PRN (11:58)
--- NOTE | 2016-06-07 12:31 | CONS ---
Date/Time of Note Date/Time of Note DATE: 06/07/16 TIME: 12:22 Assessment/Plan Assessment/Plan Chief Complaint/Hosp Course IMp: 1.CHF-systolic acute on chonic-reasonable volume status at this time 2.Resp failure s/p trach on vent 3.Cardiomyopathy-LVEF 25-30% 4.HTN-with episodes of borderline Hotn 5.PPM 6.Leukocytosis Recc: -Tele -Follow BP/Volume status closely -Continue abx's and f/u cx data -Contineu gentle IVF hydration and follow volume status closely Problems: Consultation Date/Type/Reason Admit Date/Time Jun 06, 2016 at 08:08 Initial Consult Date 06/07/16 Type of Consultation: Cardiology Reason for Consultation AFL Referring Provider: HOLLI LINDER MD Exam/Review of Systems Vital Signs Vitals Vital Signs Date Time Temp Pulse Resp B/P Pulse Ox O2 Delivery O2 Flow Rate FiO2 06/07/16 12:00 80 06/07/16 09:30 31 98 30 06/07/16 06:30 116/48 Mechanical Ventilator 06/07/16 04:00 98.7 06/06/16 17:29 15.0 Intake and Output 06/06/16 06/06/16 06/07/16 15:00 23:00 07:00 Intake Total 450 ml 1210 ml 1044.666 ml Output Total 205 ml 340 ml 190 ml Balance 245 ml 870 ml 854.666 ml Exam Review of Systems: CONSTITUTIONAL: No fevers, chills. PULMONARY: trached CARDIOVASCULAR: No chest pain/palpitations GASTROINTESTINAL: No nausea/vomiting. GENITOURINARY: No hematuria/dysuria. MUSCULOSKELETAL: No myagias/arthalgias. PSYCHIATRIC: The patient denies depression. NEUROLOGIC: No weakness Constitutional: other (sedated) Psych: no complaints Head: normocephalic ENMT: mucosa pink and moist Neck: other (trached), supple Respiratory: diminished breath sounds Cardiovascular: irregular rhythm Gastrointestinal: non-tender, soft Musculoskeletal: muscle tone (normal) Extremities: edema (none) Neurological: other (encephalopathic) Results Result Diagram: 06/07/16 0400 06/07/16 0400 Results 24 hrs Laboratory Tests Test 06/06/16 12:24 06/07/16 04:00 Lactic Acid Level 3.1 H White Blood Count 31.1 H Red Blood Count 2.89 #L Hemoglobin 8.6 #L Hematocrit 26.5 #L Mean Corpuscular Volume 91.7 Mean Corpuscular Hemoglobin 29.8 Mean Corpuscular Hemoglobin Concent 32.5 Red Cell Distribution Width 15.4 H Platelet Count 315 # Mean Platelet Volume 11.0 H Neutrophils % 93.0 H Band Neutrophils % 3.0 Lymphocytes % 2.0 L Monocytes % 2.0 Neutrophils # 28.9 H Lymphocytes # 0.6 L Monocytes # 0.6 Giant Platelets RARE Polychromasia OCCASIONAL Sodium Level 136 Potassium Level 3.4 L Chloride Level 104 Carbon Dioxide Level 22 Anion Gap 13 Blood Urea Nitrogen 31 H Creatinine 1.00 Glucose Level 169 Calcium Level 7.9 L Total Bilirubin 0.2 Direct Bilirubin 0.00 Indirect Bilirubin 0.2 Aspartate Amino Transf (AST/SGOT) 27 Alanine Aminotransferase (ALT/SGPT) 28 Alkaline Phosphatase 70 Total Protein 5.9 #L Albumin 2.3 L Globulin 3.60 H Albumin/Globulin Ratio 0.63 Medications Medications Current Medications Sodium Chloride (1/2 NS) 1,000 ml @ 80 mls/hr [id number] IV Last administered on 06/07/16 01:36; Admin Dose 80 MLS/HR; Start 06/06/16 at 10:01 Flumazenil (Romazicon) 0.2 mg Q1M PRN IV BENZODIAZEPINE OVERDOSE; Start at 10:30 Naloxone HCl (Narcan) 0.4 mg Q3M PRN IV DECREASED REPIRATORY RATE; Start at 10:30 Ondansetron HCl (Zofran Inj) 4 mg Q6H PRN IV NAUSEA AND/OR VOMITING; Start 01/12 at 10:30 Methylprednisolone Sodium Succinate (Solu-Medrol) 125 mg Q6 IV Last administered on 06/07/16 11:58; Admin Dose 125 MG; Start 06/06/16 at 12:00 Nitroglycerin (Nitroglycerin (Sl Tab) 0.4 Mg) 1 tab Q5M PRN SL CHEST PAIN; Start 06/06/16 at 10:30 Acetaminophen (Tylenol Liquid) 650 mg Q6H PRN PO PAIN LEVEL 1-3 OR FEVER; Start 06/06/16 at 10:30 Morphine Sulfate (morphine) 2 mg Q4H PRN IV PAIN LEVEL 7-10 Last administered on 06/07/16 11:58; Admin Dose 2 MG; Start 06/06/16 at 10:30 Docusate Sodium (Colace) 100 mg Q12H PRN PO CONSTIPATION; Start 06/06/16 at 10: 30 Magnesium Hydroxide (Milk Of Mag) 30 ml DAILY PRN PO CONSTIPATION; Start at 10:30 Bisacodyl (Dulcolax) 5 mg DAILY PRN PO CONSTIPATION; Start 06/06/16 at 10:30 Pantoprazole (Protonix Iv) 40 mg DAILY@06 IV Last administered on 06/07/16 06: 02; Admin Dose 40 MG; Start 06/07/16 at 06:00 Enoxaparin Sodium 40 mg 40 mg DAILY SC Last administered on 06/07/16 10:30; Admin Dose 40 MG; Start 06/07/16 at 09:00 Meropenem 100 ml @ 200 mls/hr Q12 IVPB Last administered on 06/07/16 10:19; Admin Dose 200 MLS/HR; Start 06/06/16 at 13:00 Vancomycin HCl/ Sodium Chloride (Vancocin/NS) 250 ml @ 83.333 mls/ hr Q24H IVPB Last administered on 06/06/16 23:40; Admin Dose 83.333 MLS/HR; Start 01/12 at 23:00 Collagenase (Santyl) 1 applic DAILY TOP Last administered on 06/07/16 10:30; Admin Dose 1 APPLIC; Start 06/07/16 at 09:00 Collagenase (Santyl) 1 applic PRN PRN TOP WOUND CARE; Start 06/06/16 at 16:00 IV Flush (NS 10 ml) 10 ml PRN PRN IV IV PROTOCOL; Start 06/06/16 at 18:30 Ascorbic Acid (Vitamin C) 500 mg DAILY GTB Last administered on 06/07/16 10:19 ; Admin Dose 500 MG; Start 06/07/16 at 09:00 Aspirin (Aspirin) 325 mg DAILY GTB Last administered on 06/07/16 10:19; Admin Dose 325 MG; Start 06/07/16 at 09:00 Multivitamins (Thera-Plus) 5 ml DAILY GTB Last administered on 06/07/16 10:19 ; Admin Dose 5 ML; Start 06/07/16 at 09:00 Tamsulosin HCl (Flomax) 0.4 mg HS PO ; Start 06/07/16 at 21:00 Zinc Sulfate 220 mg 220 mg DAILY GTB Last administered on 06/07/16 10:19; Admin Dose 220 MG; Start 06/07/16 at 09:00 Potassium Chloride (KCl 40 MEQ/250 ML NS) 250 ml @ 62.5 mls/hr ONCE ONCE IVPB Last administered on 06/07/16 11:36; Admin Dose 62.5 MLS/HR; Start 06/07/16 at 10:00; Stop 06/07/16 at 13:59 JAYA GORE Jun 07, 2016 12:31
--- NOTE | 2016-06-07 12:40 | RADRPT ---
PROCEDURE: Ultrasound guidance for placement of needle in left upper extremity vein. CLINICAL INDICATION: Venous access. TECHNIQUE: Limited sonography of the left upper extremity was performed. Ultrasound images were recorded and s tored in the patient's medical record. COMPARISON: None. FINDINGS: The ultrasound images demonstrate a patent left upper extremity vein. The PICC line was inserted by the PICC line nurse. IMPRESSION: 1. Ultrasound guidance for a needle placement in a left upper extremity vein. 2. The left upper extremity vein is patent. RPTAT: QQ .Henrik Reyna MD, MD Date Time Electronically viewed and signed by .Henrik Reyna MD, MD on 06/07/2016 12:39 .R/
--- NOTE | 2016-06-07 14:50 | PN ---
DATE: 06/07/2016 INFECTIOUS DISEASE PROGRESS NOTE SUBJECTIVE: The patient is status post CT of the abdomen and pelvis this afternoon. Tube feeding i s still on hold. He is in no distress. No fevers. VITAL SIGNS: Temperature 98.7, pulse 83, respirations 25, blood pressure 116/48, saturation 100% on 30 FIO2. LABORATORY DATA: WBC 31.1, H and H 8.6 and 26.5, platelets 315, neutrophils 93, bands 3, lymphs 2, monos 2. BUN 31, creatinine 1.0. Lactic acid went down to 3.1. MICROBIOLOGY: Blood culture preliminary growing gram-positive cocci in clusters. Urine culture rocky wing enterococcus species. Nares swab came back positive for MRSA. DIAGNOSTICS: Chest x-ray yesterday revealed chronic appearing interstitial changes and right lower lobe pneumonia. ANTIMICROBIALS: The patient is on 1. IV vancomycin. 2. Topical Bactroban to nares. 3. Meropenem. 4. He is also getting IV steroids. OBJECTIVE: GENERAL: This is a well-developed, chronically ill-appearing, elderly man who is in no distress. HEENT: Head atraumatic, normocephalic. Sclerae anicteric. Buccal mucosa dry. NECK: Supple. Tracheostomy present. CHEST: Rise symmetrical. Breath sounds diminished to bases. HEART: S1, S2. ABDOMEN: Distended, bowel tones are hypoactive. EXTREMITIES: With trace edema. ASSESSMENT: 1. Severe sepsis with shock, off pressors. 2. Gram-positive cocci bacteremia, possibly secondary to #3. 3. Enterococcal urinary tract infection. 4. Healthcare-associated pneumonia. 5. Abdominal distention status post CT of the abdomen this afternoon. 6. History of coronary artery disease and permanent pacemaker placement. 7. Chronic encephalopathy. PLAN: The patient is on appropriate antimicrobials. Cultures are pending. He is being followed by multiple consultants. He is getting Bactroban to nares. CT of the abdomen and pelvis was done, re sults pending. We will repeat blood cultures and wait for final workup. Dictated By: JOSE G CUNNINGHAM SHEET METAL TECHNICIAN for RASHIDA CAMPBELL MD NI/NTS Conf#: [id number] DID#: [id number]
--- NOTE | 2016-06-07 19:19 | PN ---
Date/Time of Note Date/Time of Note DATE: 06/07/16 TIME: 19:17 Assessment/Plan VTE Prophylaxis VTE Prophylaxis Intervention: other Lines/Catheters IV Catheter Type (from Nrsg): PICC Line Central line still needed: Yes Urinary Cath still in place: Yes Reason Cath still needed: other (indicate) Assessment/Plan Chief Complaint/Hosp Course IMPRESSION: 1. Septic shock. 2. Pneumonia. 3. Leukocytosis. 4. Hematuria. better 5. Lactic acidosis. 6. Respiratory failure. 7. Gastrostomy tube placement. 8. Anemia. 9. Atrial fibrillation. 10. History of congestive heart failure with decreased ejection fraction. 11. vdrf 12. History of paroxysmal atrial fibrillation. 13. The patient now has decubitus. 14 uti plan antibiotic per id Problems: Subjective 24 Hr Interval Summary Subjective hx not possible: other (on vent) Exam/Review of Systems Vital Signs Vitals Vital Signs Date Time Temp Pulse Resp B/P Pulse Ox O2 Delivery O2 Flow Rate FiO2 06/07/16 17:10 89 25 100 30 06/07/16 15:30 91/58 06/07/16 15:00 Mechanical Ventilator 06/07/16 12:00 98.2 06/06/16 17:29 15.0 Intake and Output 06/06/16 06/06/16 06/07/16 15:00 23:00 07:00 Intake Total 450 ml 1210 ml 1124.666 ml Output Total 205 ml 340 ml 190 ml Balance 245 ml 870 ml 934.666 ml Exam Neck: supple Respiratory: diminished breath sounds Cardiovascular: regular rate and rhythm Gastrointestinal: bowel sounds (+), soft Extremities: edema (tr) Results Result Diagram: 06/07/16 0400 06/07/16 0400 Results 24 hrs Laboratory Tests Test 06/07/16 04:00 White Blood Count 31.1 H Red Blood Count 2.89 #L Hemoglobin 8.6 #L Hematocrit 26.5 #L Mean Corpuscular Volume 91.7 Mean Corpuscular Hemoglobin 29.8 Mean Corpuscular Hemoglobin Concent 32.5 Red Cell Distribution Width 15.4 H Platelet Count 315 # Mean Platelet Volume 11.0 H Neutrophils % 93.0 H Band Neutrophils % 3.0 Lymphocytes % 2.0 L Monocytes % 2.0 Neutrophils # 28.9 H Lymphocytes # 0.6 L Monocytes # 0.6 Giant Platelets RARE Polychromasia OCCASIONAL Sodium Level 136 Potassium Level 3.4 L Chloride Level 104 Carbon Dioxide Level 22 Anion Gap 13 Blood Urea Nitrogen 31 H Creatinine 1.00 Glucose Level 169 Calcium Level 7.9 L Total Bilirubin 0.2 Direct Bilirubin 0.00 Indirect Bilirubin 0.2 Aspartate Amino Transf (AST/SGOT) 27 Alanine Aminotransferase (ALT/SGPT) 28 Alkaline Phosphatase 70 Total Protein 5.9 #L Albumin 2.3 L Globulin 3.60 H Albumin/Globulin Ratio 0.63 Medications Medications Current Medications Sodium Chloride (1/2 NS) 1,000 ml @ 80 mls/hr [id number] IV Last administered on 06/07/16 14:40; Admin Dose 80 MLS/HR; Start 06/06/16 at 10:01 Flumazenil (Romazicon) 0.2 mg Q1M PRN IV BENZODIAZEPINE OVERDOSE; Start at 10:30 Naloxone HCl (Narcan) 0.4 mg Q3M PRN IV DECREASED REPIRATORY RATE; Start at 10:30 Ondansetron HCl (Zofran Inj) 4 mg Q6H PRN IV NAUSEA AND/OR VOMITING; Start 01/12 at 10:30 Methylprednisolone Sodium Succinate (Solu-Medrol) 125 mg Q6 IV Last administered on 06/07/16 11:58; Admin Dose 125 MG; Start 06/06/16 at 12:00 Nitroglycerin (Nitroglycerin (Sl Tab) 0.4 Mg) 1 tab Q5M PRN SL CHEST PAIN; Start 06/06/16 at 10:30 Acetaminophen (Tylenol Liquid) 650 mg Q6H PRN PO PAIN LEVEL 1-3 OR FEVER; Start 06/06/16 at 10:30 Morphine Sulfate (morphine) 2 mg Q4H PRN IV PAIN LEVEL 7-10 Last administered on 06/07/16 11:58; Admin Dose 2 MG; Start 06/06/16 at 10:30 Docusate Sodium (Colace) 100 mg Q12H PRN PO CONSTIPATION; Start 06/06/16 at 10: 30 Magnesium Hydroxide (Milk Of Mag) 30 ml DAILY PRN PO CONSTIPATION; Start at 10:30 Bisacodyl (Dulcolax) 5 mg DAILY PRN PO CONSTIPATION; Start 06/06/16 at 10:30 Pantoprazole (Protonix Iv) 40 mg DAILY@06 IV Last administered on 06/07/16 06: 02; Admin Dose 40 MG; Start 06/07/16 at 06:00 Enoxaparin Sodium 40 mg 40 mg DAILY SC Last administered on 06/07/16 10:30; Admin Dose 40 MG; Start 06/07/16 at 09:00 Meropenem 100 ml @ 200 mls/hr Q12 IVPB Last administered on 06/07/16 10:19; Admin Dose 200 MLS/HR; Start 06/06/16 at 13:00 Vancomycin HCl/ Sodium Chloride (Vancocin/NS) 250 ml @ 83.333 mls/ hr Q24H IVPB Last administered on 06/06/16 23:40; Admin Dose 83.333 MLS/HR; Start 01/12 at 23:00 Collagenase (Santyl) 1 applic DAILY TOP Last administered on 06/07/16 10:30; Admin Dose 1 APPLIC; Start 06/07/16 at 09:00 Collagenase (Santyl) 1 applic PRN PRN TOP WOUND CARE; Start 06/06/16 at 16:00 IV Flush (NS 10 ml) 10 ml PRN PRN IV IV PROTOCOL; Start 06/06/16 at 18:30 Ascorbic Acid (Vitamin C) 500 mg DAILY GTB Last administered on 06/07/16 10:19 ; Admin Dose 500 MG; Start 06/07/16 at 09:00 Aspirin (Aspirin) 325 mg DAILY GTB Last administered on 06/07/16 10:19; Admin Dose 325 MG; Start 06/07/16 at 09:00 Multivitamins (Thera-Plus) 5 ml DAILY GTB Last administered on 06/07/16 10:19 ; Admin Dose 5 ML; Start 06/07/16 at 09:00 Tamsulosin HCl (Flomax) 0.4 mg HS PO ; Start 06/07/16 at 21:00 Zinc Sulfate (Zinc Sulfate) 220 mg DAILY GTB Last administered on 06/07/16 10: 19; Admin Dose 220 MG; Start 06/07/16 at 09:00 Mupirocin (Bactroban) 1 applic BID TOP ; Start 06/07/16 at 21:00 HOLLI LINDER MD Jun 07, 2016 19:19
[2016-06-07] MEDS: MUPIROCIN 2% 22 GM OINT TOP SCH (21:12)
[2016-06-07] MEDS: TAMSULOSIN (SR) 0.4 MG CAP PO SCH (21:12)
[2016-06-07] MEDS: VANCOMYCIN 1.25 GM in SOD CHLORIDE 0.9% 250 ML IVPB SCH (23:35)
[2016-06-08] VITALS (47 sets, daily range): BP systolic 75–153; BP diastolic 35–83; PULSE 60–161; RESP 16–39
[2016-06-08] MEDS: IPRATROPIUM (HFA) 12.9 GM INHALER INH SCH ×6 (00:37→21:52)
[2016-06-08] MEDS: ALBUTEROL 18 GM INHALER INH SCH ×6 (00:37→21:52)
[2016-06-08] MEDS: SOD CHLORIDE 0.45% 1,000 ML IV SCH ×3 (03:23→17:00)
[2016-06-08 04:39] LABS: ADD SCAN DIFF NO
[2016-06-08 04:51] LABS: ABNORMAL IP MESSAGE 1; BASOPHIL # 0.1 10^3/ul (0.0-0.1); BASOPHILS % 0.2 % (0.0-2.0); HEMATOCRIT 28.6 % (42.0-52.0); LYMPHOCYTES # 1.1 10^3/ul (0.8-2.9); LYMPHOCYTES % 3.4 % (15.0-51.0); MEAN CORPUSCULAR HEMOGLOBIN 28.8 pg (29.0-33.0); MEAN CORPUSCULAR HGB CONC 31.5 g/dl (32.0-37.0); MEAN CORPUSCULAR VOLUME 91.4 fl (82.0-101.0); MEAN PLATELET VOLUME 11.3 fl (7.4-10.4); MONOCYTE # 0.4 10^3/ul (0.3-0.9); MONOCYTES % 1.3 % (0.0-11.0); NEUTROPHIL # 30.5 10^3/ul (1.6-7.5); NEUTROPHILS % 92.1 % (39.0-77.0); NUCLEATED RED BLOOD CELLS% 0.1 /100WBC (0.0-0.0); PLATELET COUNT 269 10^3/UL (140-415); RED BLOOD COUNT 3.13 10^6/ul (4.70-6.10); RED CELL DISTRIBUTION WIDTH 15.3 % (11.5-14.5); WHITE BLOOD COUNT 33.1 10^3/ul (4.8-10.8)
[2016-06-08 04:53] LABS: POTASSIUM 4.2 mmol/L (3.5-5.1)
[2016-06-08 04:56] LABS: CREATININE 0.77 mg/dl (0.61-1.24)
[2016-06-08 04:57] LABS: CALCIUM 7.6 mg/dl (8.4-10.2)
[2016-06-08] MEDS: PANTOPRAZOLE 40 MG INJ IV SCH (05:04)
[2016-06-08] MEDS: METHYLPREDNISOLONE 125 MG INJ IV SCH ×4 (05:04→23:41)
[2016-06-08] MEDS: morphine 2 MG INJ IV PRN (05:05)
[2016-06-08] MEDS ORDERED: morphine 2 MG INJ IV ONE (08:00)
--- NOTE | 2016-06-08 08:35 | CONS ---
Date/Time of Note Date/Time of Note DATE: 06/08/16 TIME: 08:32 Assessment/Plan Assessment/Plan Additional Assessment/Plan Ventilator settings are AC of 14, tidal volume 400, PEEP of 5, 30% FiO2. Assessment recommendations; next 1. Patient admitted for sepsis source is likely sacral decubitus ulcer. With persistent significant leukocytosis. 2. Chronic respiratory failure, status post tracheostomy and G-tube placement. 3. Atrial fibrillation. 4. Dementia 5. Anemia. Continue current supportive care. Prognosis is poor. Consultation Date/Type/Reason Admit Date/Time Jun 06, 2016 at 08:08 Initial Consult Date 06/07/16 Type of Consultation: Pulmonary/critical care Referring Provider: HOLLI LINDER MD 24 HR Interval Summary Free Text/Dictation Patient condition remains tenuous at best. Still requiring full ventilator support. Has remained hemodynamically stable not requiring any pressor support. General exam; elderly male, on ventilator via tracheostomy awake but does not follow any commands. Exam/Review of Systems Vital Signs Vitals Vital Signs Date Time Temp Pulse Resp B/P Pulse Ox O2 Delivery O2 Flow Rate FiO2 06/08/16 08:00 161 06/08/16 06:00 22 100/63 99 Mechanical Ventilator 06/08/16 05:30 30 06/08/16 04:00 98.7 06/06/16 17:29 15.0 Intake and Output 06/07/16 06/07/16 06/08/16 15:00 23:00 07:00 Intake Total 1050 ml 800 ml 970 ml Output Total 220 ml 370 ml 315 ml Balance 830 ml 430 ml 655 ml Exam HEENT exam is; supple neck, patient had bilateral mild corneal opacities. Tracheostomy in place. He is edentulous. No neck masses. No thyromegaly. No neck bruits. Chest examination; diminished breath sound bilaterally. S1-S2 audible, irregular rhythm. No murmurs. Abdomen exam is; soft, G-tube in place. Scaphoid. No organomegaly. Extremity exam; no peripheral edema. ENVIRONMENTAL ASSOCIATE exam is; patient is awake but does not follow any commands. Results Result Diagram: 06/08/16 0415 06/08/16 0415 Results 24 hrs Laboratory Tests Test 06/07/16 18:50 06/08/16 00:39 06/08/16 04:15 Troponin I 0.022 0.013 White Blood Count 33.1 H Red Blood Count 3.13 L Hemoglobin 9.0 L Hematocrit 28.6 L Mean Corpuscular Volume 91.4 Mean Corpuscular Hemoglobin 28.8 L Mean Corpuscular Hemoglobin Concent 31.5 L Red Cell Distribution Width 15.3 H Platelet Count 269 Mean Platelet Volume 11.3 H Neutrophils % 92.1 H Lymphocytes % 3.4 L Monocytes % 1.3 Eosinophils % 0.0 Basophils % 0.2 Nucleated Red Blood Cells % 0.1 H Neutrophils # 30.5 H Lymphocytes # 1.1 Monocytes # 0.4 Eosinophils # 0.0 Basophils # 0.1 Nucleated Red Blood Cells # 0.0 Sodium Level 136 Potassium Level 4.2 Chloride Level 106 Carbon Dioxide Level 20 L Anion Gap 14 Blood Urea Nitrogen 35 H Creatinine 0.77 Glucose Level 120 # Calcium Level 7.6 L Medications Medications Current Medications Sodium Chloride (1/2 NS) 1,000 ml @ 80 mls/hr [id number] IV Last administered on 06/08/16 03:23; Admin Dose 80 MLS/HR; Start 06/06/16 at 10:01 Flumazenil (Romazicon) 0.2 mg Q1M PRN IV BENZODIAZEPINE OVERDOSE; Start at 10:30 Naloxone HCl (Narcan) 0.4 mg Q3M PRN IV DECREASED REPIRATORY RATE; Start at 10:30 Ondansetron HCl (Zofran Inj) 4 mg Q6H PRN IV NAUSEA AND/OR VOMITING; Start 01/12 at 10:30 Methylprednisolone Sodium Succinate (Solu-Medrol) 125 mg Q6 IV Last administered on 06/08/16 05:04; Admin Dose 125 MG; Start 06/06/16 at 12:00 Nitroglycerin (Nitroglycerin (Sl Tab) 0.4 Mg) 1 tab Q5M PRN SL CHEST PAIN; Start 06/06/16 at 10:30 Acetaminophen (Tylenol Liquid) 650 mg Q6H PRN PO PAIN LEVEL 1-3 OR FEVER; Start 06/06/16 at 10:30 Morphine Sulfate (morphine) 2 mg Q4H PRN IV PAIN LEVEL 7-10 Last administered on 06/08/16 05:05; Admin Dose 2 MG; Start 06/06/16 at 10:30 Docusate Sodium (Colace) 100 mg Q12H PRN PO CONSTIPATION; Start 06/06/16 at 10: 30 Magnesium Hydroxide (Milk Of Mag) 30 ml DAILY PRN PO CONSTIPATION; Start at 10:30 Bisacodyl (Dulcolax) 5 mg DAILY PRN PO CONSTIPATION; Start 06/06/16 at 10:30 Pantoprazole (Protonix Iv) 40 mg DAILY@06 IV Last administered on 06/08/16 05: 04; Admin Dose 40 MG; Start 06/07/16 at 06:00 Enoxaparin Sodium 40 mg 40 mg DAILY SC Last administered on 06/07/16 10:30; Admin Dose 40 MG; Start 06/07/16 at 09:00 Meropenem 100 ml @ 200 mls/hr Q12 IVPB Last administered on 06/07/16 21:12; Admin Dose 200 MLS/HR; Start 06/06/16 at 13:00 Vancomycin HCl/ Sodium Chloride (Vancocin/NS) 250 ml @ 83.333 mls/ hr Q24H IVPB Last administered on 06/07/16 23:35; Admin Dose 83.333 MLS/HR; Start 01/12 at 23:00 Collagenase (Santyl) 1 applic DAILY TOP Last administered on 06/07/16 10:30; Admin Dose 1 APPLIC; Start 06/07/16 at 09:00 Collagenase (Santyl) 1 applic PRN PRN TOP WOUND CARE; Start 06/06/16 at 16:00 IV Flush (NS 10 ml) 10 ml PRN PRN IV IV PROTOCOL; Start 06/06/16 at 18:30 Ascorbic Acid (Vitamin C) 500 mg DAILY GTB Last administered on 06/07/16 10:19 ; Admin Dose 500 MG; Start 06/07/16 at 09:00 Aspirin (Aspirin) 325 mg DAILY GTB Last administered on 06/07/16 10:19; Admin Dose 325 MG; Start 06/07/16 at 09:00 Multivitamins (Thera-Plus) 5 ml DAILY GTB Last administered on 06/07/16 10:19 ; Admin Dose 5 ML; Start 06/07/16 at 09:00 Tamsulosin HCl (Flomax) 0.4 mg HS PO Last administered on 4/12/17at 21:12; Admin Dose 0.4 MG; Start 06/07/16 at 21:00 Zinc Sulfate (Zinc Sulfate) 220 mg DAILY GTB Last administered on 06/07/16 10: 19; Admin Dose 220 MG; Start 06/07/16 at 09:00 Mupirocin (Bactroban) 1 applic BID TOP Last administered on 06/07/16 21:12; Admin Dose 1 APPLIC; Start 06/07/16 at 21:00 GERALDINE CUNNINGHAM Jun 08, 2016 08:34
[2016-06-08] MEDS: ASCORBIC ACID 500 MG TAB GTB SCH (09:04)
[2016-06-08] MEDS: ASPIRIN 325 MG TAB GTB SCH (09:04)
[2016-06-08] MEDS: MEROPENEM 500 MG/100 ML (PMX) 100 ML IVPB SCH ×2 (09:04→20:48)
[2016-06-08] MEDS: MULTIVITAMINS 5 ML CUP GTB SCH (09:04)
[2016-06-08] MEDS: ZINC SULFATE 220 MG CAP GTB SCH (09:04)
[2016-06-08] MEDS: COLLAGENASE 30 GM TUBE TOP SCH (09:05)
[2016-06-08] MEDS: MUPIROCIN 2% 22 GM OINT TOP SCH ×2 (09:05→20:48)
[2016-06-08] MEDS: ENOXAPARIN 40 MG/0.4 ML SYG SC SCH (09:08)
[2016-06-08] MEDS: PROPOFOL 100 ML IV SCH ×2 (09:11→19:57)
[2016-06-08] MEDS ORDERED: METOCLOPRAMIDE 10 MG INJ IV PRN (09:30)
--- NOTE | 2016-06-08 11:28 | CONS ---
Date/Time of Note Date/Time of Note DATE: 06/08/16 TIME: : Assessment/Plan Assessment/Plan Chief Complaint/Hosp Course IMp: 1.CHF-systolic acute on chonic-reasonable volume status at this time 2.Resp failure s/p trach on vent 3.Cardiomyopathy-LVEF 25-30% 4.HTN-with episodes of borderline Hotn 5.PPM 6.Leukocytosis 7.Tachycardia-PAF Recc: -Tele -Follow BP/Volume status closely -Continue abx's and f/u cx data -Will start low dose BB/give dose of digoxin IVP -Continue asa/low dose lovenox -Continue gentle IVF hydration and follow volume status closely Problems: Consultation Date/Type/Reason Admit Date/Time Jun 06, 2016 at 08:08 Initial Consult Date 06/07/16 Type of Consultation: Cardiology Reason for Consultation cardiomyopathy Referring Provider: HOLLI LINDER MD Exam/Review of Systems Vital Signs Vitals Vital Signs Date Time Temp Pulse Resp B/P Pulse Ox O2 Delivery O2 Flow Rate FiO2 06/08/16 10:30 134 39 98 06/08/16 10:00 95/54 Mechanical Ventilator 06/08/16 09:40 30 06/08/16 08:00 98.2 06/06/16 17:29 15.0 Intake and Output 06/07/16 06/07/16 06/08/16 15:00 23:00 07:00 Intake Total 1050 ml 800 ml 970 ml Output Total 220 ml 370 ml 315 ml Balance 830 ml 430 ml 655 ml Exam Review of Systems: CONSTITUTIONAL: No fevers, chills. PULMONARY: trached CARDIOVASCULAR: No obvious chest pain/palpitations GASTROINTESTINAL: No nausea/vomiting. GENITOURINARY: No hematuria/dysuria. MUSCULOSKELETAL: No obvious myagias/arthalgias. PSYCHIATRIC: The patient denies depression. NEUROLOGIC: Encephalopathic Constitutional: other (sedated) Head: normocephalic ENMT: other (trached) Neck: jvd (9 cm water) Respiratory: diminished breath sounds Cardiovascular: regular rate and rhythm Gastrointestinal: non-tender, soft Musculoskeletal: muscle tone Extremities: edema (none) Neurological: other (No focal deficits) Results Result Diagram: 06/08/16 0415 06/08/16 0415 Results 24 hrs Laboratory Tests Test 06/07/16 18:50 06/08/16 00:39 06/08/16 04:15 Troponin I 0.022 0.013 White Blood Count 33.1 H Red Blood Count 3.13 L Hemoglobin 9.0 L Hematocrit 28.6 L Mean Corpuscular Volume 91.4 Mean Corpuscular Hemoglobin 28.8 L Mean Corpuscular Hemoglobin Concent 31.5 L Red Cell Distribution Width 15.3 H Platelet Count 269 Mean Platelet Volume 11.3 H Neutrophils % 92.1 H Lymphocytes % 3.4 L Monocytes % 1.3 Eosinophils % 0.0 Basophils % 0.2 Nucleated Red Blood Cells % 0.1 H Neutrophils # 30.5 H Lymphocytes # 1.1 Monocytes # 0.4 Eosinophils # 0.0 Basophils # 0.1 Nucleated Red Blood Cells # 0.0 Sodium Level 136 Potassium Level 4.2 Chloride Level 106 Carbon Dioxide Level 20 L Anion Gap 14 Blood Urea Nitrogen 35 H Creatinine 0.77 Glucose Level 120 # Calcium Level 7.6 L Medications Medications Current Medications Sodium Chloride (1/2 NS) 1,000 ml @ 80 mls/hr [id number] IV Last administered on 06/08/16 03:23; Admin Dose 80 MLS/HR; Start 06/06/16 at 10:01 Flumazenil (Romazicon) 0.2 mg Q1M PRN IV BENZODIAZEPINE OVERDOSE; Start at 10:30 Naloxone HCl (Narcan) 0.4 mg Q3M PRN IV DECREASED REPIRATORY RATE; Start at 10:30 Ondansetron HCl (Zofran Inj) 4 mg Q6H PRN IV NAUSEA AND/OR VOMITING; Start 01/12 at 10:30 Methylprednisolone Sodium Succinate (Solu-Medrol) 125 mg Q6 IV Last administered on 06/08/16 05:04; Admin Dose 125 MG; Start 06/06/16 at 12:00 Nitroglycerin (Nitroglycerin (Sl Tab) 0.4 Mg) 1 tab Q5M PRN SL CHEST PAIN; Start 06/06/16 at 10:30 Acetaminophen (Tylenol Liquid) 650 mg Q6H PRN PO PAIN LEVEL 1-3 OR FEVER; Start 06/06/16 at 10:30 Morphine Sulfate (morphine) 2 mg Q4H PRN IV PAIN LEVEL 7-10 Last administered on 06/08/16 05:05; Admin Dose 2 MG; Start 06/06/16 at 10:30 Docusate Sodium (Colace) 100 mg Q12H PRN PO CONSTIPATION; Start 06/06/16 at 10: 30 Magnesium Hydroxide (Milk Of Mag) 30 ml DAILY PRN PO CONSTIPATION; Start at 10:30 Bisacodyl (Dulcolax) 5 mg DAILY PRN PO CONSTIPATION; Start 06/06/16 at 10:30 Pantoprazole (Protonix Iv) 40 mg DAILY@06 IV Last administered on 06/08/16 05: 04; Admin Dose 40 MG; Start 06/07/16 at 06:00 Enoxaparin Sodium 40 mg 40 mg DAILY SC Last administered on 06/08/16 09:08; Admin Dose 40 MG; Start 06/07/16 at 09:00 Meropenem 100 ml @ 200 mls/hr Q12 IVPB Last administered on 06/08/16 09:04; Admin Dose 200 MLS/HR; Start 06/06/16 at 13:00 Vancomycin HCl/ Sodium Chloride (Vancocin/NS) 250 ml @ 83.333 mls/ hr Q24H IVPB Last administered on 06/07/16 23:35; Admin Dose 83.333 MLS/HR; Start 01/12 at 23:00 Collagenase (Santyl) 1 applic DAILY TOP Last administered on 06/08/16 09:05; Admin Dose 1 APPLIC; Start 06/07/16 at 09:00 Collagenase (Santyl) 1 applic PRN PRN TOP WOUND CARE; Start 06/06/16 at 16:00 IV Flush (NS 10 ml) 10 ml PRN PRN IV IV PROTOCOL; Start 06/06/16 at 18:30 Ascorbic Acid (Vitamin C) 500 mg DAILY GTB Last administered on 06/08/16 09:04 ; Admin Dose 500 MG; Start 06/07/16 at 09:00 Aspirin (Aspirin) 325 mg DAILY GTB Last administered on 06/08/16 09:04; Admin Dose 325 MG; Start 06/07/16 at 09:00 Multivitamins (Thera-Plus) 5 ml DAILY GTB Last administered on 06/08/16 09:04 ; Admin Dose 5 ML; Start 06/07/16 at 09:00 Tamsulosin HCl (Flomax) 0.4 mg HS PO Last administered on 06/07/16 21:12; Admin Dose 0.4 MG; Start 06/07/16 at 21:00 Zinc Sulfate (Zinc Sulfate) 220 mg DAILY GTB Last administered on 06/08/16 09: 04; Admin Dose 220 MG; Start 06/07/16 at 09:00 Mupirocin 1 applic 1 applic BID TOP Last administered on 06/08/16 09:05; Admin Dose 1 APPLIC; Start 06/07/16 at 21:00 Propofol (Diprivan) 100 ml @ 2.25 mls/hr Q12H IV Last administered on 09:11; Admin Dose 2.25 MLS/HR; Start 06/08/16 at 09:00 Metoclopramide HCl (Reglan) 10 mg Q6H PRN IV NAUSEA AND/OR VOMITING; Start at 09:30 JAYA GORE Jun 08, 2016 11:27
[2016-06-08] MEDS ORDERED: DIGOXIN 500 MCG INJ IV ONE (11:30)
[2016-06-08] MEDS: ATENOLOL 25 MG TAB PO SCH (12:06)
--- NOTE | 2016-06-08 13:57 | PN ---
DATE: 06/08/2016 SUBJECTIVE: No acute changes. The patient is lying comfortably in bed. No fevers. VITAL SIGNS: Temperature 98.2, pulse 80, respirations 23, blood pressure 98/46, saturation 100 on v ent. WBC 33.1, H and H 9 and 28.6, platelets 269, neutrophils 92.1, no bands. BUN 35, creatinine 0.77. MICROBIOLOGY: Blood culture growing Staphylococcus aureus. Urine culture growing enterococcus spec ies. MRSA swab positive. ANTIMICROBIALS: The patient is on: 1. Topical Bactroban to nares. 2. Vancomycin. 3. Meropenem. 4. He is also getting Solu-Medrol. INDWELLINGS: The patient had PICC line placed on 06/06/2016, as well as trach, PEG and Alfonso. PHYSICAL EXAMINATION: GENERAL: This is a chronically ill-appearing, elderly man who is in no distress. HEENT: Head atraumatic, normocephalic. Sclerae anicteric. Buccal mucosa dry. NECK: Supple. Tracheostomy present. CHEST: Rise symmetrical. Breath sounds diminished to bases. HEART: S1, S2. ABDOMEN: Soft. Bowel sounds present. EXTREMITIES: Without cyanosis. Trace edema. ASSESSMENT: 1. Sepsis with Staphylococcus aureus bacteremia, possibly methicillin-resistant Staphylococcus sheyla us. 2. Enterococcal urinary tract infection. 3. Methicillin-resistant Staphylococcus aureus nares colonization. 4. Sacral decubitus. 5. Chronic respiratory failure. 6. History of coronary artery disease and permanent pacemaker placement. 7. Chronic encephalopathy. PLAN: The patient remains hemodynamically stable. He is being seen by multiple consultants. Armando gonzalez blood cultures in progress. We are going to continue him on current regimen. Order a 2D echo. C ontinue local wound care, vent management as per pulmonary. Dictated By: JOSE G CUNNINGHAM PLANNED GIVING OFFICER for RASHIDA HUSSEIN/NTS Conf#: [id number] DID#: [id number]
--- NOTE | 2016-06-08 19:21 | RADRPT ---
Echocardiogram Report Patient Name: MAME HERBERT Gender: Male Date: 1930 Study Date: 08-Jun-2016 Energy Engineer: Lew Dickens RDCS Location: Ref. Physician: JOSE G CUNNINGHAM Quality: Good Procedures: Transthoracic echocardiogram examination. Indications: r/o vegetations. 2D/M Mode Doppler Measurement Value Normal Range Measurement Value Normal Range TR Peak Ulices 3.3 m/sec TR Peak PG 43.0 mmHg Findings Left Ventricle: Moderate global left ventricular systolic dysfunction. The left ventricular ejection fraction is visually estimated at 30 %. Right Ventricle: Normal right ventricular size. Normal right ventricular systolic function. Left Atrium: The left atrium is normal in size and appearance. Right Atrium: The right atrium is normal in size and appearance. Atrial Septum: Normal atrial septum. Mitral Valve: Normal appearance of the mitral valve leaflets. Anterior mitral valve leaflet appear mildly thickened. Mild mitral regurgitation. Aortic Valve: Normal appearance and function of the aortic valve. Aortic cusps appear mildly calcified. Mild aortic regurgitation. Tricuspid Valve: There is moderate tricuspid regurgitation. Pulmonic Valve: Normal pulmonic valve appearance and function with trivial (physiologic) regurgitation. Pericardium: Normal pericardium with no significant pericardial effusion. Aorta: Normal aortic root. Normal ascending aorta. Normal aortic arch. Normal descending aorta. IVC: Inferior vena cava without respiratory collapse, however, patient on ventilator. Pulmonary Artery: Normal pulmonary artery size. Conclusions Moderate to severe global left ventricular systolic dysfunction. The left ventricular ejection fraction is visually estimated at 30 %. Normal appearance of the mitral valve leaflets. Anterior mitral valve leaflet appear mildly thickened. Mild mitral regurgitation. Mild aortic regurgitation. There is moderate tricuspid regurgitation. Normal pulmonic valve appearance and function with trivial (physiologic) regurgitation. No definite vegetations on any of the well visualized valvular apparati. Electronically Signed By: Clyde Kendrick 08-Jun-2016 19:20:50 -0700 Patient Name: MAME HERBERT Study Date: 08-Jun-[id number]
[2016-06-08] MEDS: TAMSULOSIN (SR) 0.4 MG CAP PO SCH (20:48)
[2016-06-08] MEDS: VANCOMYCIN 1.25 GM in SOD CHLORIDE 0.9% 250 ML IVPB SCH (23:41)
[2016-06-09] VITALS (46 sets, daily range): BP systolic 97–162; BP diastolic 48–106; PULSE 65–96; RESP 15–38
[2016-06-09] MEDS: IPRATROPIUM (HFA) 12.9 GM INHALER INH SCH ×6 (01:00→21:35)
[2016-06-09] MEDS: ALBUTEROL 18 GM INHALER INH SCH ×6 (01:00→21:36)
[2016-06-09] MEDS: SOD CHLORIDE 0.45% 1,000 ML IV SCH ×2 (03:36→17:21)
[2016-06-09 04:46] LABS: ADD SCAN DIFF NO
[2016-06-09 04:51] LABS: ABNORMAL IP MESSAGE 1; BASOPHILS % 0.1 % (0.0-2.0); HEMATOCRIT 26.1 % (42.0-52.0); LYMPHOCYTES # 0.9 10^3/ul (0.8-2.9); LYMPHOCYTES % 2.9 % (15.0-51.0); MEAN CORPUSCULAR HEMOGLOBIN 29.1 pg (29.0-33.0); MEAN CORPUSCULAR HGB CONC 30.7 g/dl (32.0-37.0); MEAN CORPUSCULAR VOLUME 94.9 fl (82.0-101.0); MEAN PLATELET VOLUME 11.1 fl (7.4-10.4); MONOCYTE # 0.4 10^3/ul (0.3-0.9); MONOCYTES % 1.4 % (0.0-11.0); NEUTROPHIL # 27.1 10^3/ul (1.6-7.5); NUCLEATED RED BLOOD CELLS% 0.1 /100WBC (0.0-0.0); PLATELET COUNT 279 10^3/UL (140-415); RED BLOOD COUNT 2.75 10^6/ul (4.70-6.10); RED CELL DISTRIBUTION WIDTH 15.6 % (11.5-14.5)
[2016-06-09 05:19] LABS: CALCIUM 7.3 mg/dl (8.4-10.2); CREATININE 0.81 mg/dl (0.61-1.24); POTASSIUM 4.3 mmol/L (3.5-5.1)
[2016-06-09 05:27] LABS: NEUTROPHILS % 91.6 % (39.0-77.0); WHITE BLOOD COUNT 29.6 10^3/ul (4.8-10.8)
[2016-06-09] MEDS: PANTOPRAZOLE 40 MG INJ IV SCH (06:17)
[2016-06-09] MEDS: METHYLPREDNISOLONE 125 MG INJ IV SCH ×4 (06:17→23:52)
[2016-06-09] MEDS: PROPOFOL 100 ML IV SCH ×2 (09:00→11:00)
[2016-06-09] MEDS: ASPIRIN 325 MG TAB GTB SCH (09:06)
[2016-06-09] MEDS: MULTIVITAMINS 5 ML CUP GTB SCH (09:06)
[2016-06-09] MEDS: ASCORBIC ACID 500 MG TAB GTB SCH (09:07)
[2016-06-09] MEDS: ZINC SULFATE 220 MG CAP GTB SCH (09:07)
[2016-06-09] MEDS: ATENOLOL 25 MG TAB PO SCH (09:07)
[2016-06-09] MEDS: MUPIROCIN 2% 22 GM OINT TOP SCH ×2 (09:09→21:07)
[2016-06-09] MEDS: COLLAGENASE 30 GM TUBE TOP SCH (09:09)
[2016-06-09] MEDS: ENOXAPARIN 40 MG/0.4 ML SYG SC SCH (09:12)
[2016-06-09] MEDS: MEROPENEM 500 MG/100 ML (PMX) 100 ML IVPB SCH ×2 (09:16→21:08)
--- NOTE | 2016-06-09 09:18 | CONS ---
Date/Time of Note Date/Time of Note DATE: 06/09/16 TIME: 09:15 Assessment/Plan Assessment/Plan Additional Assessment/Plan Ventilator settings; AC of 14, tidal volume 400, PEEP of 5, 30% FiO2. Assessment recommendations; 1. Patient admitted with respiratory failure not requiring tracheostomy. 2. Sepsis, sources sacral decubitus ulcer. 3. Scant right lower lobe pneumonia. 4. Atrial fibrillation. 5. Advanced dementia. 6. Anemia. Continue current supportive care. Patient's prognosis is extremely poor. Consultation Date/Type/Reason Admit Date/Time Jun 06, 2016 at 08:08 Initial Consult Date 06/07/16 Type of Consultation: Pulmonary/critical care Referring Provider: HOLLI LINDER MD 24 HR Interval Summary Free Text/Dictation Patient condition remains stable. No requiring full ventilator support. Patient is not much responsive. Exam; elderly man, on ventilator via tracheostomy currently in no distress. Exam/Review of Systems Vital Signs Vitals Vital Signs Date Time Temp Pulse Resp B/P Pulse Ox O2 Delivery O2 Flow Rate FiO2 06/09/16 06:00 68 21 111/65 100 Mechanical Ventilator 06/09/16 05:55 30 06/09/16 04:00 97.8 06/06/16 17:29 15.0 Intake and Output 06/08/16 06/08/16 06/09/16 15:00 23:00 07:00 Intake Total 1125.50 ml 1070.50 ml 1117.250 ml Output Total 505 ml 1050 ml 430 ml Balance 620.50 ml 20.50 ml 687.250 ml Exam HEENT examination; supple neck, no JVD. No lymphadenopathy. Midline trachea. Patient bilateral corneal opacities. He is edentulous. Tracheostomy in place with clean insertion site. Chest exam; diminished but clear breath sound bilaterally. No added sound. S1- S2 audible, irregular rhythm. No murmurs. Abdomen exam is; soft, G-tube in place. No organomegaly. Bowel sounds audible. Extremity exam; no peripheral edema. Next CHURCH ORGANIST exam; patient remains barely responsive. Results Result Diagram: 06/09/16 0400 06/09/16 0400 Results 24 hrs Laboratory Tests Test 06/08/16 22:00 06/09/16 04:00 06/09/16 09:01 Vancomycin Level Trough 14.5 White Blood Count 29.6 H Red Blood Count 2.75 L Hemoglobin 8.0 L Hematocrit 26.1 L Mean Corpuscular Volume 94.9 Mean Corpuscular Hemoglobin 29.1 Mean Corpuscular Hemoglobin Concent 30.7 L Red Cell Distribution Width 15.6 H Platelet Count 279 Mean Platelet Volume 11.1 H Neutrophils % 91.6 H Lymphocytes % 2.9 L Monocytes % 1.4 Eosinophils % 0.0 Basophils % 0.1 Nucleated Red Blood Cells % 0.1 H Neutrophils # 27.1 H Lymphocytes # 0.9 Monocytes # 0.4 Eosinophils # 0.0 Basophils # 0.0 Nucleated Red Blood Cells # 0.0 Sodium Level 138 Potassium Level 4.3 Chloride Level 114 H Carbon Dioxide Level 22 Anion Gap 6 #L Blood Urea Nitrogen 36 H Creatinine 0.81 Glucose Level 143 Calcium Level 7.3 L Bedside Glucose 142 Medications Medications Current Medications Sodium Chloride (1/2 NS) 1,000 ml @ 80 mls/hr [id number] IV Last administered on 06/09/16 03:36; Admin Dose 80 MLS/HR; Start 06/06/16 at 10:01 Flumazenil (Romazicon) 0.2 mg Q1M PRN IV BENZODIAZEPINE OVERDOSE; Start at 10:30 Naloxone HCl (Narcan) 0.4 mg Q3M PRN IV DECREASED REPIRATORY RATE; Start at 10:30 Ondansetron HCl (Zofran Inj) 4 mg Q6H PRN IV NAUSEA AND/OR VOMITING; Start 01/12 at 10:30 Methylprednisolone Sodium Succinate (Solu-Medrol) 125 mg Q6 IV Last administered on 06/09/16 06:17; Admin Dose 125 MG; Start 06/06/16 at 12:00 Nitroglycerin (Nitroglycerin (Sl Tab) 0.4 Mg) 1 tab Q5M PRN SL CHEST PAIN; Start 06/06/16 at 10:30 Acetaminophen (Tylenol Liquid) 650 mg Q6H PRN PO PAIN LEVEL 1-3 OR FEVER; Start 06/06/16 at 10:30 Morphine Sulfate (morphine) 2 mg Q4H PRN IV PAIN LEVEL 7-10 Last administered on 06/08/16 05:05; Admin Dose 2 MG; Start 06/06/16 at 10:30 Docusate Sodium (Colace) 100 mg Q12H PRN PO CONSTIPATION; Start 06/06/16 at 10: 30 Magnesium Hydroxide (Milk Of Mag) 30 ml DAILY PRN PO CONSTIPATION; Start at 10:30 Bisacodyl (Dulcolax) 5 mg DAILY PRN PO CONSTIPATION; Start 06/06/16 at 10:30 Pantoprazole (Protonix Iv) 40 mg DAILY@06 IV Last administered on 06/09/16 06: 17; Admin Dose 40 MG; Start 06/07/16 at 06:00 Enoxaparin Sodium 40 mg 40 mg DAILY SC Last administered on 06/09/16 09:12; Admin Dose 40 MG; Start 06/07/16 at 09:00 Meropenem 100 ml @ 200 mls/hr Q12 IVPB Last administered on 06/08/16 20:48; Admin Dose 200 MLS/HR; Start 06/06/16 at 13:00 Vancomycin HCl/ Sodium Chloride (Vancocin/NS) 250 ml @ 83.333 mls/ hr Q24H IVPB Last administered on 06/08/16 23:41; Admin Dose 83.333 MLS/HR; Start 01/12 at 23:00 Collagenase (Santyl) 1 applic DAILY TOP Last administered on 06/09/16 09:09; Admin Dose 1 APPLIC; Start 06/07/16 at 09:00 Collagenase (Santyl) 1 applic PRN PRN TOP WOUND CARE; Start 06/06/16 at 16:00 IV Flush (NS 10 ml) 10 ml PRN PRN IV IV PROTOCOL; Start 06/06/16 at 18:30 Ascorbic Acid (Vitamin C) 500 mg DAILY GTB Last administered on 06/09/16 09:07 ; Admin Dose 500 MG; Start 06/07/16 at 09:00 Aspirin (Aspirin) 325 mg DAILY GTB Last administered on 06/09/16 09:06; Admin Dose 325 MG; Start 06/07/16 at 09:00 Multivitamins (Thera-Plus) 5 ml DAILY GTB Last administered on 06/09/16 09:06 ; Admin Dose 5 ML; Start 06/07/16 at 09:00 Tamsulosin HCl (Flomax) 0.4 mg HS PO Last administered on 06/08/16 20:48; Admin Dose 0.4 MG; Start 06/07/16 at 21:00 Zinc Sulfate (Zinc Sulfate) 220 mg DAILY GTB Last administered on 06/09/16 09: 07; Admin Dose 220 MG; Start 06/07/16 at 09:00 Mupirocin 1 applic 1 applic BID TOP Last administered on 06/09/16 09:09; Admin Dose 1 APPLIC; Start 06/07/16 at 21:00 Propofol (Diprivan) 100 ml @ 2.25 mls/hr Q12H IV Last administered on 19:57; Admin Dose 6.75 MLS/HR; Start 06/08/16 at 09:00 Metoclopramide HCl (Reglan) 10 mg Q6H PRN IV NAUSEA AND/OR VOMITING Last administered on 06/08/16 18:00; Admin Dose 10 MG; Start 06/08/16 at 09:30 Atenolol (Tenormin) 25 mg DAILY PO Last administered on 06/09/16 09:07; Admin Dose 25 MG; Start 06/08/16 at 11:30 GERALDINE CUNNINGHAM Jun 09, 2016 09:18
--- NOTE | 2016-06-09 12:40 | CONS ---
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-reasonable volume status at this time 2.Resp failure s/p trach on vent 3.Cardiomyopathy-LVEF 25-30% 4.HTN-with episodes of borderline Hotn 5.PPM 6.Leukocytosis 7.Tachycardia-PAF Recc: -Tele -Follow BP/Volume status closely -Continue abx's and f/u cx data -Continue atenolol -Continue asa/low dose lovenox -Continue gentle IVF hydration and follow volume status closely Problems: Consultation Date/Type/Reason Admit Date/Time Jun 06, 2016 at 08:08 Initial Consult Date 06/07/16 Type of Consultation: Cardiology Reason for Consultation cardiomyopathy/CHF Referring Provider: HOLLI LINDER MD Exam/Review of Systems Vital Signs Vitals Vital Signs Date Time Temp Pulse Resp B/P Pulse Ox O2 Delivery O2 Flow Rate FiO2 06/09/16 11:10 83 25 100 30 06/09/16 11:00 123/55 Mechanical Ventilator 06/09/16 08:00 98.5 06/06/16 17:29 15.0 Intake and Output 06/08/16 06/08/16 06/09/16 15:00 23:00 07:00 Intake Total 1125.50 ml 1070.50 ml 1234.000 ml Output Total 505 ml 1050 ml 480 ml Balance 620.50 ml 20.50 ml 754.000 ml Exam Review of Systems: CONSTITUTIONAL: No fevers, chills. PULMONARY: No sob CARDIOVASCULAR: No chest pain/palpitations GASTROINTESTINAL: No nausea/vomiting. GENITOURINARY: No hematuria/dysuria. MUSCULOSKELETAL: No myagias/arthalgias. PSYCHIATRIC: The patient denies depression. NEUROLOGIC: No weakness Constitutional: alert Psych: no complaints Head: normocephalic ENMT: mucosa pink and moist Neck: jvd (9 cm water), other (trached), supple Respiratory: diminished breath sounds (at bases/B) Cardiovascular: regular rate and rhythm Gastrointestinal: non-tender, soft Musculoskeletal: muscle tone (normal) Extremities: edema (none) Neurological: other (No focal deficits) Results Result Diagram: 06/09/160 06/09/16 0400 Results 24 hrs Laboratory Tests Test 06/08/16 22:00 06/09/16 04:00 06/09/16 09:01 Vancomycin Level Trough 14.5 White Blood Count 29.6 H Red Blood Count 2.75 L Hemoglobin 8.0 L Hematocrit 26.1 L Mean Corpuscular Volume 94.9 Mean Corpuscular Hemoglobin 29.1 Mean Corpuscular Hemoglobin Concent 30.7 L Red Cell Distribution Width 15.6 H Platelet Count 279 Mean Platelet Volume 11.1 H Neutrophils % 91.6 H Lymphocytes % 2.9 L Monocytes % 1.4 Eosinophils % 0.0 Basophils % 0.1 Nucleated Red Blood Cells % 0.1 H Neutrophils # 27.1 H Lymphocytes # 0.9 Monocytes # 0.4 Eosinophils # 0.0 Basophils # 0.0 Nucleated Red Blood Cells # 0.0 Sodium Level 138 Potassium Level 4.3 Chloride Level 114 H Carbon Dioxide Level 22 Anion Gap 6 #L Blood Urea Nitrogen 36 H Creatinine 0.81 Glucose Level 143 Calcium Level 7.3 L Bedside Glucose 142 Medications Medications Current Medications Sodium Chloride (1/2 NS) 1,000 ml @ 80 mls/hr [id number] IV Last administered on 06/09/16 03:36; Admin Dose 80 MLS/HR; Start 06/06/16 at 10:01 Flumazenil (Romazicon) 0.2 mg Q1M PRN IV BENZODIAZEPINE OVERDOSE; Start at 10:30 Naloxone HCl (Narcan) 0.4 mg Q3M PRN IV DECREASED REPIRATORY RATE; Start at 10:30 Ondansetron HCl (Zofran Inj) 4 mg Q6H PRN IV NAUSEA AND/OR VOMITING; Start 01/12 at 10:30 Methylprednisolone Sodium Succinate (Solu-Medrol) 125 mg Q6 IV Last administered on 06/09/16 12:32; Admin Dose 125 MG; Start 06/06/16 at 12:00 Nitroglycerin (Nitroglycerin (Sl Tab) 0.4 Mg) 1 tab Q5M PRN SL CHEST PAIN; Start 06/06/16 at 10:30 Acetaminophen (Tylenol Liquid) 650 mg Q6H PRN PO PAIN LEVEL 1-3 OR FEVER; Start 06/06/16 at 10:30 Morphine Sulfate (morphine) 2 mg Q4H PRN IV PAIN LEVEL 7-10 Last administered on 06/08/16 05:05; Admin Dose 2 MG; Start 06/06/16 at 10:30 Docusate Sodium (Colace) 100 mg Q12H PRN PO CONSTIPATION; Start 06/06/16 at 10: 30 Magnesium Hydroxide (Milk Of Mag) 30 ml DAILY PRN PO CONSTIPATION; Start at 10:30 Bisacodyl (Dulcolax) 5 mg DAILY PRN PO CONSTIPATION; Start 06/06/16 at 10:30 Pantoprazole (Protonix Iv) 40 mg DAILY@06 IV Last administered on 06/09/16 06: 17; Admin Dose 40 MG; Start 06/07/16 at 06:00 Enoxaparin Sodium 40 mg 40 mg DAILY SC Last administered on 06/09/16 09:12; Admin Dose 40 MG; Start 06/07/16 at 09:00 Meropenem 100 ml @ 200 mls/hr Q12 IVPB Last administered on 06/09/16 09:16; Admin Dose 200 MLS/HR; Start 06/06/16 at 13:00 Vancomycin HCl/ Sodium Chloride (Vancocin/NS) 250 ml @ 83.333 mls/ hr Q24H IVPB Last administered on 06/08/16 23:41; Admin Dose 83.333 MLS/HR; Start 01/12 at 23:00 Collagenase (Santyl) 1 applic DAILY TOP Last administered on 06/09/16 09:09; Admin Dose 1 APPLIC; Start 06/07/16 at 09:00 Collagenase (Santyl) 1 applic PRN PRN TOP WOUND CARE; Start 06/06/16 at 16:00 IV Flush (NS 10 ml) 10 ml PRN PRN IV IV PROTOCOL; Start 06/06/16 at 18:30 Ascorbic Acid (Vitamin C) 500 mg DAILY GTB Last administered on 06/09/16 09:07 ; Admin Dose 500 MG; Start 06/07/16 at 09:00 Aspirin (Aspirin) 325 mg DAILY GTB Last administered on 06/09/16 09:06; Admin Dose 325 MG; Start 06/07/16 at 09:00 Multivitamins (Thera-Plus) 5 ml DAILY GTB Last administered on 06/09/16 09:06 ; Admin Dose 5 ML; Start 06/07/16 at 09:00 Tamsulosin HCl (Flomax) 0.4 mg HS PO Last administered on 06/08/16 20:48; Admin Dose 0.4 MG; Start 06/07/16 at 21:00 Zinc Sulfate (Zinc Sulfate) 220 mg DAILY GTB Last administered on 06/09/16 09: 07; Admin Dose 220 MG; Start 06/07/16 at 09:00 Mupirocin 1 applic 1 applic BID TOP Last administered on 06/09/16 09:09; Admin Dose 1 APPLIC; Start 06/07/16 at 21:00 Propofol (Diprivan) 100 ml @ 2.25 mls/hr Q12H IV Last administered on 11:00; Admin Dose 9 MLS/HR; Start 06/08/16 at 09:00 Metoclopramide HCl (Reglan) 10 mg Q6H PRN IV NAUSEA AND/OR VOMITING Last administered on 06/08/16 18:00; Admin Dose 10 MG; Start 06/08/16 at 09:30 Atenolol (Tenormin) 25 mg DAILY PO Last administered on 06/09/16 09:07; Admin Dose 25 MG; Start 06/08/16 at 11:30 JAYA GORE Jun 09, 2016 12:40
--- NOTE | 2016-06-09 15:03 | PN ---
DATE: 06/09/2016 SUBJECTIVE: No acute changes. No fevers. The patient is nonverbal, noncommunicative, lying comfor tably in bed. VITAL SIGNS: Temperature 98.3, pulse 75, respirations 28, blood pressure 130/69, saturation 99% on vent. LABORATORY DATA: WBC 29.6, H and H 8 and 26.1, platelets 279, neutrophils 91.6. BUN 36, creatinine 0.81. MICROBIOLOGY: Blood cultures repeated on 06/07/2016 negative. INDWELLINGS: Trach, PEG, Alfonso, PICC line placed on 06/06/2016. ANTIMICROBIALS: 1. Topical Bactroban to nares. 2. Vancomycin 3. Merrem. PHYSICAL EXAMINATION: GENERAL: A chronically ill-appearing elderly man who is in no distress. HEENT: Head atraumatic, normocephalic. Sclerae anicteric. Buccal mucosa dry. NECK: Supple. Tracheostomy present. CHEST: Rise symmetrical. Breath sounds diminished to bases. HEART: S1, S2. ABDOMEN: Soft. Bowel sounds present. EXTREMITIES: No cyanosis. ASSESSMENT: 1. Sepsis with methicillin-resistant Staphylococcus aureus bacteremia. Repeat blood cultures negat millicent. 2. Enterococcal urinary tract infection. 3. Methicillin-resistant Staphylococcus aureus nares colonization. 4. Right lower lobe pneumonia. 5. Sacral decubitus. 6. Dementia. 7. History of permanent pacemaker placement. PLAN: The patient remains stable. Repeat blood cultures negative. A 2D echo revealed no vegetatio ns. Continue present care, antibiotics. Follow recommendations of consultants. Dictated By: JOSE G CUNNINGHAM MATERIAL CLERK for [employer]HS[employer] HUSSEIN/TRACY Conf#: [id number] DID#: [id number]
[2016-06-09] MEDS: morphine 2 MG INJ IV PRN ×2 (15:14→22:42)
[2016-06-09] MEDS: TAMSULOSIN (SR) 0.4 MG CAP PO SCH (21:07)
--- NOTE | 2016-06-09 22:20 | PN ---
Date/Time of Note Date/Time of Note DATE: 06/09/16 TIME: 22:19 Assessment/Plan VTE Prophylaxis VTE Prophylaxis Intervention: other Lines/Catheters IV C[facility]ter Type (from [facility]): Saline Lock Urinary Cath still in place: Yes Reason Cath still needed: other (indicate) Assessment/Plan Chief Complaint/Hosp Course IMPRESSION: 1. Septic shock. 2. Pneumonia. 3. Leukocytosis. 4. Hematuria. better 5. Lactic acidosis. 6. Respiratory failure. 7. Gastrostomy tube placement. 8. Anemia. 9. Atrial fibrillation. 10. History of congestive heart failure with decreased ejection fraction. 11. vdrf 12. History of paroxysmal atrial fibrillation. 13. The patient now has decubitus. 14 uti plan antibiotic per id weaning Problems: Subjective 24 Hr Interval Summary Subjective hx not possible: other (pt seen note missing) Exam/Review of Systems Vital Signs Vitals Vital Signs Date Time Temp Pulse Resp B/P Pulse Ox O2 Delivery O2 Flow Rate FiO2 06/09/16 20:00 85 06/09/16 19:03 28 135/67 98 Mechanical Ventilator 06/09/16 17:10 30 06/09/16 16:00 98.4 06/06/16 17:29 15.0 Intake and Output 06/08/16 06/08/16 06/09/16 15:00 23:00 07:00 Intake Total 1125.50 ml 1070.50 ml 1234.000 ml Output Total 505 ml 1050 ml 480 ml Balance 620.50 ml 20.50 ml 754.000 ml Exam Neck: supple Respiratory: clear to auscultation Cardiovascular: regular rate and rhythm Gastrointestinal: soft Musculoskeletal: nl extremities to inspection Results Result Diagram: 06/09/16 0400 06/09/16 0400 Results 24 hrs Laboratory Tests Test 06/09/16 04:00 06/09/16 09:01 White Blood Count 29.6 H Red Blood Count 2.75 L Hemoglobin 8.0 L Hematocrit 26.1 L Mean Corpuscular Volume 94.9 Mean Corpuscular Hemoglobin 29.1 Mean Corpuscular Hemoglobin Concent 30.7 L Red Cell Distribution Width 15.6 H Platelet Count 279 Mean Platelet Volume 11.1 H Neutrophils % 91.6 H Lymphocytes % 2.9 L Monocytes % 1.4 Eosinophils % 0.0 Basophils % 0.1 Nucleated Red Blood Cells % 0.1 H Neutrophils # 27.1 H Lymphocytes # 0.9 Monocytes # 0.4 Eosinophils # 0.0 Basophils # 0.0 Nucleated Red Blood Cells # 0.0 Sodium Level 138 Potassium Level 4.3 Chloride Level 114 H Carbon Dioxide Level 22 Anion Gap 6 #L Blood Urea Nitrogen 36 H Creatinine 0.81 Glucose Level 143 Calcium Level 7.3 L Bedside Glucose 142 Medications Medications Current Medications Sodium Chloride (1/2 NS) 1,000 ml @ 80 mls/hr [id number] IV Last administered on 06/09/16 17:21; Admin Dose 80 MLS/HR; Start 06/06/16 at 10:01 Flumazenil (Romazicon) 0.2 mg Q1M PRN IV BENZODIAZEPINE OVERDOSE; Start at 10:30 Naloxone HCl (Narcan) 0.4 mg Q3M PRN IV DECREASED REPIRATORY RATE; Start at 10:30 Ondansetron HCl (Zofran Inj) 4 mg Q6H PRN IV NAUSEA AND/OR VOMITING; Start 01/12 at 10:30 Methylprednisolone Sodium Succinate (Solu-Medrol) 125 mg Q6 IV Last administered on 06/09/16 17:21; Admin Dose 125 MG; Start 06/06/16 at 12:00 Nitroglycerin (Nitroglycerin (Sl Tab) 0.4 Mg) 1 tab Q5M PRN SL CHEST PAIN; Start 06/06/16 at 10:30 Acetaminophen (Tylenol Liquid) 650 mg Q6H PRN PO PAIN LEVEL 1-3 OR FEVER; Start 06/06/16 at 10:30 Morphine Sulfate (morphine) 2 mg Q4H PRN IV PAIN LEVEL 7-10 Last administered on 06/09/16 15:14; Admin Dose 2 MG; Start 06/06/16 at 10:30 Docusate Sodium (Colace) 100 mg Q12H PRN PO CONSTIPATION; Start 06/06/16 at 10: 30 Magnesium Hydroxide (Milk Of Mag) 30 ml DAILY PRN PO CONSTIPATION; Start at 10:30 Bisacodyl (Dulcolax) 5 mg DAILY PRN PO CONSTIPATION; Start 06/06/16 at 10:30 Pantoprazole (Protonix Iv) 40 mg DAILY@06 IV Last administered on 06/09/16 06: 17; Admin Dose 40 MG; Start 06/07/16 at 06:00 Enoxaparin Sodium 40 mg 40 mg DAILY SC Last administered on 06/09/16 09:12; Admin Dose 40 MG; Start 06/07/16 at 09:00 Meropenem 100 ml @ 200 mls/hr Q12 IVPB Last administered on 06/09/16 21:08; Admin Dose 200 MLS/HR; Start 06/06/16 at 13:00 Vancomycin HCl/ Sodium Chloride (Vancocin/NS) 250 ml @ 83.333 mls/ hr Q24H IVPB Last administered on 06/08/16 23:41; Admin Dose 83.333 MLS/HR; Start 01/12 at 23:00 Collagenase (Santyl) 1 applic DAILY TOP Last administered on 06/09/16 09:09; Admin Dose 1 APPLIC; Start 06/07/16 at 09:00 Collagenase (Santyl) 1 applic PRN PRN TOP WOUND CARE; Start 06/06/16 at 16:00 IV Flush (NS 10 ml) 10 ml PRN PRN IV IV PROTOCOL; Start 06/06/16 at 18:30 Ascorbic Acid (Vitamin C) 500 mg DAILY GTB Last administered on 06/09/16 09:07 ; Admin Dose 500 MG; Start 06/07/16 at 09:00 Aspirin (Aspirin) 325 mg DAILY GTB Last administered on 06/09/16 09:06; Admin Dose 325 MG; Start 06/07/16 at 09:00 Multivitamins (Thera-Plus) 5 ml DAILY GTB Last administered on 06/09/16 09:06 ; Admin Dose 5 ML; Start 06/07/16 at 09:00 Tamsulosin HCl (Flomax) 0.4 mg HS PO Last administered on 06/09/16 21:07; Admin Dose 0.4 MG; Start 06/07/16 at 21:00 Zinc Sulfate (Zinc Sulfate) 220 mg DAILY GTB Last administered on 06/09/16 09: 07; Admin Dose 220 MG; Start 06/07/16 at 09:00 Mupirocin (Bactroban) 1 applic BID TOP Last administered on 06/09/16 21:07; Admin Dose 1 APPLIC; Start 06/07/16 at 21:00 Metoclopramide HCl (Reglan) 10 mg Q6H PRN IV NAUSEA AND/OR VOMITING Last administered on 06/08/16 18:00; Admin Dose 10 MG; Start 06/08/16 at 09:30 Atenolol (Tenormin) 25 mg DAILY PO Last administered on 06/09/16 09:07; Admin Dose 25 MG; Start 06/08/16 at 11:30 Lorazepam (Ativan) 1 mg Q6H PRN IV AGITATION/ANXIETY; Start 06/09/16 at 13:30 HOLLI LINDER MD Jun 09, 2016 22:20
--- NOTE | 2016-06-09 22:24 | PN ---
Date/Time of Note Date/Time of Note DATE: 06/09/16 TIME: 22:22 Assessment/Plan VTE Prophylaxis VTE Prophylaxis Intervention: other Lines/Catheters IV Catheter Type (from Nrs): Saline Lock Urinary Cath still in place: Yes Reason Cath still needed: other (indicate) Assessment/Plan Chief Complaint/Hosp Course IMPRESSION: 1. Septic shock.better 2. Pneumonia. 3. Leukocytosis. 4. Hematuria. better 5. Lactic acidosis. 6. Respiratory failure. 7. Gastrostomy tube placement. 8. Anemia. 9. Atrial fibrillation. 10. History of congestive heart failure with decreased ejection fraction. 11. vdrf 12. History of paroxysmal atrial fibrillation. 13. The patient now has decubitus. 14 uti mrsa sepsis plan antibiotic per id weaning Problems: Subjective 24 Hr Interval Summary Subjective hx not possible: other (on vent) Exam/Review of Systems Vital Signs Vitals Vital Signs Date Time Temp Pulse Resp B/P Pulse Ox O2 Delivery O2 Flow Rate FiO2 06/09/16 20:00 85 06/09/16 19:03 28 135/67 98 Mechanical Ventilator 06/09/16 17:10 30 06/09/16 16:00 98.4 06/06/16 17:29 15.0 Intake and Output 06/08/16 06/08/16 06/09/16 15:00 23:00 07:00 Intake Total 1125.50 ml 1070.50 ml 1234.000 ml Output Total 505 ml 1050 ml 480 ml Balance 620.50 ml 20.50 ml 754.000 ml Exam Neck: supple Respiratory: clear to auscultation Cardiovascular: regular rate and rhythm Gastrointestinal: bowel sounds (+), soft Extremities: edema (tr) Results Result Diagram: 06/09/16 0400 06/09/16 0400 Results 24 hrs Laboratory Tests Test 06/09/16 04:00 06/09/16 09:01 White Blood Count 29.6 H Red Blood Count 2.75 L Hemoglobin 8.0 L Hematocrit 26.1 L Mean Corpuscular Volume 94.9 Mean Corpuscular Hemoglobin 29.1 Mean Corpuscular Hemoglobin Concent 30.7 L Red Cell Distribution Width 15.6 H Platelet Count 279 Mean Platelet Volume 11.1 H Neutrophils % 91.6 H Lymphocytes % 2.9 L Monocytes % 1.4 Eosinophils % 0.0 Basophils % 0.1 Nucleated Red Blood Cells % 0.1 H Neutrophils # 27.1 H Lymphocytes # 0.9 Monocytes # 0.4 Eosinophils # 0.0 Basophils # 0.0 Nucleated Red Blood Cells # 0.0 Sodium Level 138 Potassium Level 4.3 Chloride Level 114 H Carbon Dioxide Level 22 Anion Gap 6 #L Blood Urea Nitrogen 36 H Creatinine 0.81 Glucose Level 143 Calcium Level 7.3 L Bedside Glucose 142 Medications Medications Current Medications Sodium Chloride (1/2 NS) 1,000 ml @ 80 mls/hr [id number] IV Last administered on 06/09/16 17:21; Admin Dose 80 MLS/HR; Start 06/06/16 at 10:01 Flumazenil (Romazicon) 0.2 mg Q1M PRN IV BENZODIAZEPINE OVERDOSE; Start at 10:30 Naloxone HCl (Narcan) 0.4 mg Q3M PRN IV DECREASED REPIRATORY RATE; Start at 10:30 Ondansetron HCl (Zofran Inj) 4 mg Q6H PRN IV NAUSEA AND/OR VOMITING; Start 01/12 at 10:30 Methylprednisolone Sodium Succinate (Solu-Medrol) 125 mg Q6 IV Last administered on 06/09/16 17:21; Admin Dose 125 MG; Start 06/06/16 at 12:00 Nitroglycerin (Nitroglycerin (Sl Tab) 0.4 Mg) 1 tab Q5M PRN SL CHEST PAIN; Start 06/06/16 at 10:30 Acetaminophen (Tylenol Liquid) 650 mg Q6H PRN PO PAIN LEVEL 1-3 OR FEVER; Start 06/06/16 at 10:30 Morphine Sulfate (morphine) 2 mg Q4H PRN IV PAIN LEVEL 7-10 Last administered on 06/09/16 15:14; Admin Dose 2 MG; Start 06/06/16 at 10:30 Docusate Sodium (Colace) 100 mg Q12H PRN PO CONSTIPATION; Start 06/06/16 at 10: 30 Magnesium Hydroxide (Milk Of Mag) 30 ml DAILY PRN PO CONSTIPATION; Start at 10:30 Bisacodyl (Dulcolax) 5 mg DAILY PRN PO CONSTIPATION; Start 06/06/16 at 10:30 Pantoprazole (Protonix Iv) 40 mg DAILY@06 IV Last administered on 06/09/16 06: 17; Admin Dose 40 MG; Start 06/07/16 at 06:00 Enoxaparin Sodium 40 mg 40 mg DAILY SC Last administered on 06/09/16 09:12; Admin Dose 40 MG; Start 06/07/16 at 09:00 Meropenem 100 ml @ 200 mls/hr Q12 IVPB Last administered on 06/09/16 21:08; Admin Dose 200 MLS/HR; Start 06/06/16 at 13:00 Vancomycin HCl/ Sodium Chloride (Vancocin/NS) 250 ml @ 83.333 mls/ hr Q24H IVPB Last administered on 06/08/16 23:41; Admin Dose 83.333 MLS/HR; Start 01/12 at 23:00 Collagenase (Santyl) 1 applic DAILY TOP Last administered on 06/09/16 09:09; Admin Dose 1 APPLIC; Start 06/07/16 at 09:00 Collagenase (Santyl) 1 applic PRN PRN TOP WOUND CARE; Start 06/06/16 at 16:00 IV Flush (NS 10 ml) 10 ml PRN PRN IV IV PROTOCOL; Start 06/06/16 at 18:30 Ascorbic Acid (Vitamin C) 500 mg DAILY GTB Last administered on 06/09/16 09:07 ; Admin Dose 500 MG; Start 06/07/16 at 09:00 Aspirin (Aspirin) 325 mg DAILY GTB Last administered on 06/09/16 09:06; Admin Dose 325 MG; Start 06/07/16 at 09:00 Multivitamins (Thera-Plus) 5 ml DAILY GTB Last administered on 06/09/16 09:06 ; Admin Dose 5 ML; Start 06/07/16 at 09:00 Tamsulosin HCl (Flomax) 0.4 mg HS PO Last administered on 06/09/16 21:07; Admin Dose 0.4 MG; Start 06/07/16 at 21:00 Zinc Sulfate (Zinc Sulfate) 220 mg DAILY GTB Last administered on 06/09/16 09: 07; Admin Dose 220 MG; Start 06/07/16 at 09:00 Mupirocin (Bactroban) 1 applic BID TOP Last administered on 06/09/16 21:07; Admin Dose 1 APPLIC; Start 06/07/16 at 21:00 Metoclopramide HCl (Reglan) 10 mg Q6H PRN IV NAUSEA AND/OR VOMITING Last administered on 06/08/16 18:00; Admin Dose 10 MG; Start 06/08/16 at 09:30 Atenolol (Tenormin) 25 mg DAILY PO Last administered on 06/09/16 09:07; Admin Dose 25 MG; Start 06/08/16 at 11:30 Lorazepam (Ativan) 1 mg Q6H PRN IV AGITATION/ANXIETY; Start 06/09/16 at 13:30 HOLLI LINDER MD Jun 09, 2016 22:24
[2016-06-09] MEDS: VANCOMYCIN 1.25 GM in SOD CHLORIDE 0.9% 250 ML IVPB SCH (22:45)
[2016-06-09] MEDS: LORAZEPAM 2 MG INJ IV PRN (23:52)
[2016-06-10] VITALS (68 sets, daily range): BP systolic 72–163; BP diastolic 45–102; PULSE 0–110; RESP 24–34
[2016-06-10] MEDS: IPRATROPIUM (HFA) 12.9 GM INHALER INH SCH ×6 (01:41→21:07)
[2016-06-10] MEDS: ALBUTEROL 18 GM INHALER INH SCH ×6 (01:41→21:07)
[2016-06-10] MEDS: SOD CHLORIDE 0.45% 1,000 ML IV SCH ×2 (03:45→06:15)
[2016-06-10] MEDS: morphine 2 MG INJ IV PRN (05:10)
[2016-06-10 05:27] LABS: ADD SCAN DIFF NO
[2016-06-10 05:34] LABS: ABNORMAL IP MESSAGE 1; HEMATOCRIT 27.9 % (42.0-52.0); HEMOGLOBIN 8.5 g/dl (14.0-18.0); MEAN CORPUSCULAR HGB CONC 30.5 g/dl (32.0-37.0); MEAN CORPUSCULAR VOLUME 95.2 fl (82.0-101.0); MEAN PLATELET VOLUME 11.4 fl (7.4-10.4); PLATELET COUNT 308 10^3/UL (140-415); RED BLOOD COUNT 2.93 10^6/ul (4.70-6.10); RED CELL DISTRIBUTION WIDTH 15.5 % (11.5-14.5); WHITE BLOOD COUNT 42.4 10^3/ul (4.8-10.8)
[2016-06-10 05:59] LABS: ALBUMIN 2.3 g/dl (3.3-4.9)
[2016-06-10 06:00] LABS: POTASSIUM 4.1 mmol/L (3.5-5.1)
[2016-06-10 06:02] LABS: ALBUMIN/GLOBULIN RATIO 0.69; BILIRUBIN,INDIRECT 0.1 mg/dl (0-1.1); BILIRUBIN,TOTAL 0.1 mg/dl (0.2-1.3); CREATININE 0.8 mg/dl (0.61-1.24); TOTAL PROTEIN 5.6 g/dl (6.1-8.1)
[2016-06-10 06:03] LABS: CALCIUM 7.6 mg/dl (8.4-10.2)
[2016-06-10] MEDS: METHYLPREDNISOLONE 125 MG INJ IV SCH (06:11)
[2016-06-10] MEDS: PANTOPRAZOLE 40 MG INJ IV SCH (06:11)
--- NOTE | 2016-06-10 07:54 | CONS ---
Date/Time of Note Date/Time of Note DATE: 06/10/16 TIME: 07:52 Assessment/Plan Assessment/Plan Additional Assessment/Plan Ventilator settings; AC of 14, tidal volume 400, PEEP of 5, 30% FiO2. Next Assessment recommendations; Number. Patient admitted for respiratory failure requiring tracheostomy 2. Status post G-tube present. 3. Sepsis. 4. Right lower lobe pneumonia. 5. History of atrial fibrillation, anemia and dementia. Continue current medications. Obtain a chest x-ray. Patient is having significant leukocytosis, currently on broad-spectrum antibiotic coverage. I would recommend adding antifungal treatment as well. Patient also would need to be sedated, propofol drip will be initiated on an as-needed basis. Overall prognosis remains extremely poor. Consultation Date/Type/Reason Admit Date/Time Jun 06, 2016 at 08:08 Initial Consult Date 06/07/16 Type of Consultation: Pulmonary/critical care Referring Provider: HOLLI LINDER MD 24 HR Interval Summary Free Text/Dictation Patient condition is tenuous at best. Remains tachypneic. Remains essentially unresponsive. General exam; elderly male, on ventilator via tracheostomy appears tachypneic. Exam/Review of Systems Vital Signs Vitals Vital Signs Date Time Temp Pulse Resp B/P Pulse Ox O2 Delivery O2 Flow Rate FiO2 06/10/16 07:00 87 28 131/63 98 Mechanical Ventilator 06/10/16 05:41 30 06/10/16 04:00 98.3 06/06/16 17:29 15.0 Intake and Output 06/09/16 06/09/16 06/10/16 15:00 23:00 07:00 Intake Total 1013.75 ml 1210 ml 1250.00 ml Output Total 730 ml 610 ml 390 ml Balance 283.75 ml 600 ml 860.00 ml Exam HEENT exam is; supple neck, no JVD. No lymphadenopathy. Midline trachea. Patient is edentulous. Has bilateral corneal opacities. Edentulous. No neck masses. No thyromegaly. Chest exam is; diminished but clear vessel bilaterally. S1-S2 audible, irregular rhythm. Abdomen exam is; scaphoid, G-tube in place. Bowel sounds audible. No organomegaly. Extremity exam; no peripheral edema. SUPPORT MERCHANDISER exam; patient remains unresponsive. Back examination reveals sacral decubitus ulcer. Stage III Results Result Diagram: 06/10/16 0410 06/10/16 0410 Results 24 hrs Laboratory Tests Test 06/09/16 09:01 06/10/16 04:10 Bedside Glucose 142 White Blood Count 42.4 #H Red Blood Count 2.93 L Hemoglobin 8.5 L Hematocrit 27.9 L Mean Corpuscular Volume 95.2 Mean Corpuscular Hemoglobin 29.0 Mean Corpuscular Hemoglobin Concent 30.5 L Red Cell Distribution Width 15.5 H Platelet Count 308 Mean Platelet Volume 11.4 H Neutrophils % Eosinophils % Neutrophils # Eosinophils # Sodium Level 140 Potassium Level 4.1 Chloride Level 110 Carbon Dioxide Level 20 L Anion Gap 14 # Blood Urea Nitrogen 39 H Creatinine 0.80 Glucose Level 187 Calcium Level 7.6 L Total Bilirubin 0.1 L Direct Bilirubin 0.00 Indirect Bilirubin 0.1 Aspartate Amino Transf (AST/SGOT) 30 Alanine Aminotransferase (ALT/SGPT) 31 Alkaline Phosphatase 78 Total Protein 5.6 L Albumin 2.3 L Globulin 3.30 H Albumin/Globulin Ratio 0.69 Medications Medications Current Medications Sodium Chloride (1/2 NS) 1,000 ml @ 80 mls/hr [id number] IV Last administered on 06/10/16 06:15; Admin Dose 80 MLS/HR; Start 06/06/16 at 10:01 Flumazenil (Romazicon) 0.2 mg Q1M PRN IV BENZODIAZEPINE OVERDOSE; Start at 10:30 Naloxone HCl (Narcan) 0.4 mg Q3M PRN IV DECREASED REPIRATORY RATE; Start at 10:30 Ondansetron HCl (Zofran Inj) 4 mg Q6H PRN IV NAUSEA AND/OR VOMITING; Start 01/12 at 10:30 Methylprednisolone Sodium Succinate (Solu-Medrol) 125 mg Q6 IV Last administered on 06/10/16 06:11; Admin Dose 125 MG; Start 06/06/16 at 12:00 Nitroglycerin (Nitroglycerin (Sl Tab) 0.4 Mg) 1 tab Q5M PRN SL CHEST PAIN; Start 06/06/16 at 10:30 Acetaminophen (Tylenol Liquid) 650 mg Q6H PRN PO PAIN LEVEL 1-3 OR FEVER; Start 06/06/16 at 10:30 Morphine Sulfate (morphine) 2 mg Q4H PRN IV PAIN LEVEL 7-10 Last administered on 06/10/16 05:10; Admin Dose 2 MG; Start 06/06/16 at 10:30 Docusate Sodium (Colace) 100 mg Q12H PRN PO CONSTIPATION; Start 06/06/16 at 10: 30 Magnesium Hydroxide (Milk Of Mag) 30 ml DAILY PRN PO CONSTIPATION; Start at 10:30 Bisacodyl (Dulcolax) 5 mg DAILY PRN PO CONSTIPATION; Start 06/06/16 at 10:30 Pantoprazole (Protonix Iv) 40 mg DAILY@06 IV Last administered on 06/10/16 06: 11; Admin Dose 40 MG; Start 06/07/16 at 06:00 Enoxaparin Sodium 40 mg 40 mg DAILY SC Last administered on 06/09/16 09:12; Admin Dose 40 MG; Start 06/07/16 at 09:00 Meropenem 100 ml @ 200 mls/hr Q12 IVPB Last administered on 06/09/16 21:08; Admin Dose 200 MLS/HR; Start 06/06/16 at 13:00 Vancomycin HCl/ Sodium Chloride (Vancocin/NS) 250 ml @ 83.333 mls/ hr Q24H IVPB Last administered on 06/09/16 22:45; Admin Dose 83.333 MLS/HR; Start 01/12 at 23:00 Collagenase (Santyl) 1 applic DAILY TOP Last administered on 06/09/16 09:09; Admin Dose 1 APPLIC; Start 06/07/16 at 09:00 Collagenase (Santyl) 1 applic PRN PRN TOP WOUND CARE; Start 06/06/16 at 16:00 IV Flush (NS 10 ml) 10 ml PRN PRN IV IV PROTOCOL; Start 06/06/16 at 18:30 Ascorbic Acid (Vitamin C) 500 mg DAILY GTB Last administered on 06/09/16 09:07 ; Admin Dose 500 MG; Start 06/07/16 at 09:00 Aspirin (Aspirin) 325 mg DAILY GTB Last administered on 06/09/16 09:06; Admin Dose 325 MG; Start 06/07/16 at 09:00 Multivitamins (Thera-Plus) 5 ml DAILY GTB Last administered on 06/09/16 09:06 ; Admin Dose 5 ML; Start 06/07/16 at 09:00 Tamsulosin HCl (Flomax) 0.4 mg HS PO Last administered on 06/09/16 21:07; Admin Dose 0.4 MG; Start 06/07/16 at 21:00 Zinc Sulfate (Zinc Sulfate) 220 mg DAILY GTB Last administered on 06/09/16 09: 07; Admin Dose 220 MG; Start 06/07/16 at 09:00 Mupirocin (Bactroban) 1 applic BID TOP Last administered on 06/09/16 21:07; Admin Dose 1 APPLIC; Start 06/07/16 at 21:00 Metoclopramide HCl (Reglan) 10 mg Q6H PRN IV NAUSEA AND/OR VOMITING Last administered on 06/08/16 18:00; Admin Dose 10 MG; Start 06/08/16 at 09:30 Atenolol (Tenormin) 25 mg DAILY PO Last administered on 06/09/16 09:07; Admin Dose 25 MG; Start 06/08/16 at 11:30 Lorazepam (Ativan) 1 mg Q6H PRN IV AGITATION/ANXIETY Last administered on 23:52; Admin Dose 1 MG; Start 06/09/16 at 13:30 GERALDINE CUNNINGHAM Jun 10, 2016 07:54
[2016-06-10] MEDS: LORAZEPAM 2 MG INJ IV PRN (08:27)
[2016-06-10] MEDS: PROPOFOL 100 ML IV SCH (08:34)
[2016-06-10] MEDS: COLLAGENASE 30 GM TUBE TOP SCH (09:00)
[2016-06-10] MEDS: ASPIRIN 325 MG TAB GTB SCH (09:00)
[2016-06-10] MEDS: ASCORBIC ACID 500 MG TAB GTB SCH (09:00)
[2016-06-10] MEDS: ATENOLOL 25 MG TAB PO SCH (09:00)
[2016-06-10] MEDS: MULTIVITAMINS 5 ML CUP GTB SCH (09:00)
[2016-06-10] MEDS: ZINC SULFATE 220 MG CAP GTB SCH (09:00)
--- NOTE | 2016-06-10 09:02 | RADRPT ---
PROCEDURE: XR Chest. CLINICAL INDICATION: Follow-up. TECHNIQUE: Single frontal portable chest was obtained. COMPARISON: 06/06/2016.. FINDINGS: There is cardiomegaly. There is calcification and unfolding of the thoracic aorta. There is pulmon rebecca vascular congestion with diffuse interstitial infiltrates bilaterally. There is some minimal ai rspace opacities in the lower lung nick[place] bilaterally with tiny bilateral pleural effusions. There i s a tracheostomy tube with the tip in the mid trachea. A left-sided PICC line appears unchanged. R ight-sided dual chamber pacemaker appears stable. IMPRESSION: 1. Cardiomegaly with vascular congestion and diffuse interstitial opacities, this likely reflects c ongestion and edema slightly more prominent than the prior study. 2. Minimal airspace opacities in the lower lung nickerson bilaterally. 3. Small bilateral pleural effusions. RPTAT: [facility] Physician Ralph Date Time Electronically viewed and signed by Physician Ralph on 06/10/2016 09:01 /
[2016-06-10 09:14] LABS: Allen Test ACCEPTAB; Arterial Base Excess -5.9 mmol/L (-3.0-3); Arterial COHb 0.3 % (0.0-3.0); Arterial Fraction of Oxyhgb 94.4 % (93.0-99.0); Arterial HCO3 17.7 mmol/L (22.0-26.0); Arterial MetHb 0.3 % (0.0-1.5); Arterial Total Hemglobin 11.6 g/dl (12.0-18.0); MODE VENT - AC
[2016-06-10 09:50] LABS: LYMPHOCYTES # 2.1 10^3/ul (0.8-2.9); MONOCYTE # 0.8 10^3/ul (0.3-0.9); MYELOCYTES # 0.8; NEUTROPHIL # 36.5 10^3/ul (1.6-7.5)
[2016-06-10] MEDS: MEROPENEM 500 MG/100 ML (PMX) 100 ML IVPB SCH ×2 (09:51→21:22)
[2016-06-10] MEDS: FLUCONAZOLE 200 MG/NS (PMX) 100 ML IVPB SCH (09:51)
[2016-06-10] MEDS: ENOXAPARIN 40 MG/0.4 ML SYG SC SCH (09:54)
[2016-06-10] MEDS: MUPIROCIN 2% 22 GM OINT TOP SCH ×2 (09:55→21:19)
[2016-06-10] MEDS ORDERED: FUROSEMIDE 40 MG INJ IV ONE (11:30)
--- NOTE | 2016-06-10 13:26 | CONS ---
Date/Time of Note Date/Time of Note DATE: 06/10/16 TIME: 13:20 Assessment/Plan Assessment/Plan Additional Assessment/Plan VDRF CHF Cardiomyopathy Atrial fibrillation s/p PPM Anemia Aspiration Pneumonia Bolus with 25% albumin with 50cc Pacemaker Check Continue Antibiotics Lasix IV Once Continue Vent support and aggressive pulmonary toiletry If hypotensive will consider Levophed No anticoagulation for now Keep Mag > 2 and Potassium > 4 Consultation Date/Type/Reason Admit Date/Time Jun 06, 2016 at 08:08 Subjective hx not possible: pt non-verbal Psychological: no complaints Social History Smoking Status: Unknown if ever smoked Exam/Review of Systems Vital Signs Vitals Vital Signs Date Time Temp Pulse Resp B/P Pulse Ox O2 Delivery O2 Flow Rate FiO2 06/10/16 11:30 0 28 98/72 94 Mechanical Ventilator 06/10/16 09:00 30 06/10/16 08:00 97.6 06/06/16 17:29 15.0 Intake and Output 06/09/16 06/09/16 06/10/16 14:59 22:59 06:59 Intake Total 1010.50 ml 1190 ml 1310.00 ml Output Total 680 ml 650 ml 450 ml Balance 330.50 ml 540 ml 860.00 ml Exam Non verbal Neck Trach on Vent Heart Tachycardiac, No M/R/G Chest Mechaical Breath sounds heard bilaterally Abdomen: Soft BS heard Ext No pedal edema Results Result Diagram: 06/10/16 0410 06/10/16 0410 Results 24 hrs Laboratory Tests Test 06/10/16 04:10 06/10/16 08:49 White Blood Count 42.4 #H Red Blood Count 2.93 L Hemoglobin 8.5 L Hematocrit 27.9 L Mean Corpuscular Volume 95.2 Mean Corpuscular Hemoglobin 29.0 Mean Corpuscular Hemoglobin Concent 30.5 L Red Cell Distribution Width 15.5 H Platelet Count 308 Mean Platelet Volume 11.4 H Neutrophils % 86.0 H Band Neutrophils % 4.0 Lymphocytes % 5.0 L Monocytes % 2.0 Eosinophils % Metamyelocytes % 1.0 H Myelocytes % 2.0 H Nucleated Red Blood Cells % 1.0 H Neutrophils # 36.5 H Lymphocytes # 2.1 Monocytes # 0.8 Eosinophils # Metamyelocytes # 0.4 Myelocytes # 0.8 Sodium Level 140 Potassium Level 4.1 Chloride Level 110 Carbon Dioxide Level 20 L Anion Gap 14 # Blood Urea Nitrogen 39 H Creatinine 0.80 Glucose Level 187 Calcium Level 7.6 L Total Bilirubin 0.1 L Direct Bilirubin 0.00 Indirect Bilirubin 0.1 Aspartate Amino Transf (AST/SGOT) 30 Alanine Aminotransferase (ALT/SGPT) 31 Alkaline Phosphatase 78 Total Protein 5.6 L Albumin 2.3 L Globulin 3.30 H Albumin/Globulin Ratio 0.69 Blood Gas Specimen Source Blood arterial Arterial Blood Date Drawn 06/10/2016 9:05:58 AM Arterial Blood pH (Temp corrected) 7.402 Arterial Blood pCO2 (Temp correct) 29.1 L Arterial Blood pO2 (Temp corrected) 77.7 L Arterial Blood HCO3 17.7 L Arterial Blood Base Excess -5.9 L Arterial Blood Oxygen Saturation 95.0 Zaid Test ACCEPTAB Arterial Blood Gas Puncture Site Right Radial Arterial Blood Carboxyhemoglobin 0.3 Arterial Blood Methemoglobin 0.3 Blood Gas A-a O2 Differential 102.0 H Oxyhemoglobin Percent 94.4 Total Hemoglobin 11.6 L Blood Gas Temperature 37.0 Blood Gas Respiration Rate 14.0 Blood Gas Actual Respiration Rate 30 Blood Gas Modality VENT - AC FiO2 30.0 Blood Gas Tidal Volume 400.0 Blood Gas Low PEEP Setting 5.0 Blood Gas Notified Whom CW Blood Gas Notified Time 06/10/2016 9:14:04 AM Medications Medications Current Medications Sodium Chloride (1/2 NS) 1,000 ml @ 80 mls/hr [id number] IV Last administered on 06/10/16t 06:15; Admin Dose 80 MLS/HR; Start 06/06/16 at 10:01 Flumazenil (Romazicon) 0.2 mg Q1M PRN IV BENZODIAZEPINE OVERDOSE; Start at 10:30 Naloxone HCl (Narcan) 0.4 mg Q3M PRN IV DECREASED REPIRATORY RATE; Start at 10:30 Ondansetron HCl (Zofran Inj) 4 mg Q6H PRN IV NAUSEA AND/OR VOMITING; Start 01/12 at 10:30 Nitroglycerin (Nitroglycerin (Sl Tab) 0.4 Mg) 1 tab Q5M PRN SL CHEST PAIN; Start 06/06/16 at 10:30 Acetaminophen (Tylenol Liquid) 650 mg Q6H PRN PO PAIN LEVEL 1-3 OR FEVER; Start 06/06/16 at 10:30 Morphine Sulfate (morphine) 2 mg Q4H PRN IV PAIN LEVEL 7-10 Last administered on 06/10/16 05:10; Admin Dose 2 MG; Start 06/06/16 at 10:30 Docusate Sodium (Colace) 100 mg Q12H PRN PO CONSTIPATION; Start 06/06/16 at 10: 30 Magnesium Hydroxide (Milk Of Mag) 30 ml DAILY PRN PO CONSTIPATION; Start at 10:30 Bisacodyl (Dulcolax) 5 mg DAILY PRN PO CONSTIPATION; Start 06/06/16 at 10:30 Pantoprazole (Protonix Iv) 40 mg DAILY@06 IV Last administered on 06/10/16 06: 11; Admin Dose 40 MG; Start 06/07/16 at 06:00 Enoxaparin Sodium 40 mg 40 mg DAILY SC Last administered on 06/10/16 09:54; Admin Dose 40 MG; Start 06/07/16 at 09:00 Meropenem 100 ml @ 200 mls/hr Q12 IVPB Last administered on 06/10/16 09:51; Admin Dose 200 MLS/HR; Start 06/06/16 at 13:00 Vancomycin HCl/ Sodium Chloride (Vancocin/NS) 250 ml @ 83.333 mls/ hr Q24H IVPB Last administered on 06/09/16 22:45; Admin Dose 83.333 MLS/HR; Start 01/12 at 23:00 Collagenase (Santyl) 1 applic DAILY TOP Last administered on 06/09/16 09:09; Admin Dose 1 APPLIC; Start 06/07/16 at 09:00 Collagenase (Santyl) 1 applic PRN PRN TOP WOUND CARE; Start 06/06/16 at 16:00 IV Flush (NS 10 ml) 10 ml PRN PRN IV IV PROTOCOL; Start 06/06/16 at 18:30 Ascorbic Acid (Vitamin C) 500 mg DAILY GTB Last administered on 06/09/16 09:07 ; Admin Dose 500 MG; Start 06/07/16 at 09:00 Aspirin (Aspirin) 325 mg DAILY GTB Last administered on 06/09/16 09:06; Admin Dose 325 MG; Start 06/07/16 at 09:00 Multivitamins (Thera-Plus) 5 ml DAILY GTB Last administered on 06/09/16 09:06 ; Admin Dose 5 ML; Start 06/07/16 at 09:00 Tamsulosin HCl (Flomax) 0.4 mg HS PO Last administered on 06/09/16 21:07; Admin Dose 0.4 MG; Start 06/07/16 at 21:00 Zinc Sulfate (Zinc Sulfate) 220 mg DAILY GTB Last administered on 06/09/16 09: 07; Admin Dose 220 MG; Start 06/07/16 at 09:00 Mupirocin (Bactroban) 1 applic BID TOP Last administered on 06/10/16 09:55; Admin Dose 1 APPLIC; Start 06/07/16 at 21:00 Metoclopramide HCl (Reglan) 10 mg Q6H PRN IV NAUSEA AND/OR VOMITING Last administered on 06/08/16 18:00; Admin Dose 10 MG; Start 06/08/16 at 09:30 Atenolol (Tenormin) 25 mg DAILY PO Last administered on 06/09/16 09:07; Admin Dose 25 MG; Start 06/08/16 at 11:30 Lorazepam 1 mg 1 mg Q6H PRN IV AGITATION/ANXIETY Last administered on 08:27; Admin Dose 1 MG; Start 06/09/16 at 13:30 Propofol 100 ml @ 2.25 mls/hr Q12H IV Last administered on 06/10/16 08:34; Admin Dose 2.25 MLS/HR; Start 06/10/16 at 08:00 Fluconazole 100 ml @ 100 mls/hr Q24H IVPB Last administered on 06/10/16 09:51 ; Admin Dose 100 MLS/HR; Start 06/10/16 at 09:00 Albumin Human (Albumin Human 25%) 50 ml @ 100 mls/hr ONCE ONCE IV ; Start at 13:30; Stop 06/10/16 at 13:59 CHRISTIAN FERMIN M.D. Jun 10, 2016 13:26
[2016-06-10] MEDS ORDERED: ALBUMIN HUMAN 25% 50 ML IV ONE ×2 (13:30→15:00)
--- NOTE | 2016-06-10 16:50 | PN ---
Date/Time of Note Date/Time of Note DATE: 06/10/16 TIME: 16:48 Assessment/Plan VTE Prophylaxis VTE Prophylaxis Intervention: other Lines/Catheters IV Catheter Type (from Nrsg): PICC Line Central line still needed: Yes Urinary Cath still in place: Yes Reason Cath still needed: other (indicate) Assessment/Plan Chief Complaint/Hosp Course IMPRESSION: 1. Septic shock.better 2. Pneumonia. aspiration 3. Leukocytosis. 4. Hematuria. better 5. Lactic acidosis. 6. Respiratory failure. 7. Gastrostomy tube placement. 8. Anemia. 9. Atrial fibrillation. 10. History of congestive heart failure with decreased ejection fraction. 11. vdrf 12. History of paroxysmal atrial fibrillation. 13. The patient now has decubitus. 14 uti mrsa sepsis plan antibiotic per id weaning per pulmonary and cardio Problems: Subjective 24 Hr Interval Summary Subjective hx not possible: other (on vent) Exam/Review of Systems Vital Signs Vitals Vital Signs Date Time Temp Pulse Resp B/P Pulse Ox O2 Delivery O2 Flow Rate FiO2 06/10/16 16:00 98.6 90 34 93/58 97 Mechanical Ventilator 06/10/16 13:00 30 06/06/16 17:29 15.0 Intake and Output 06/09/16 06/09/16 06/10/16 15:00 23:00 07:00 Intake Total 1013.75 ml 1210 ml 1290.00 ml Output Total 730 ml 610 ml 425 ml Balance 283.75 ml 600 ml 865.00 ml Exam Neck: supple Respiratory: diminished breath sounds Cardiovascular: regular rate and rhythm Gastrointestinal: soft Musculoskeletal: nl extremities to inspection Extremities: normal pulses Results Result Diagram: 06/10/16 0410 06/10/16 0410 Results 24 hrs Laboratory Tests Test 06/10/16 04:10 06/10/16 08:49 White Blood Count 42.4 #H Red Blood Count 2.93 L Hemoglobin 8.5 L Hematocrit 27.9 L Mean Corpuscular Volume 95.2 Mean Corpuscular Hemoglobin 29.0 Mean Corpuscular Hemoglobin Concent 30.5 L Red Cell Distribution Width 15.5 H Platelet Count 308 Mean Platelet Volume 11.4 H Neutrophils % 86.0 H Band Neutrophils % 4.0 Lymphocytes % 5.0 L Monocytes % 2.0 Eosinophils % Metamyelocytes % 1.0 H Myelocytes % 2.0 H Nucleated Red Blood Cells % 1.0 H Neutrophils # 36.5 H Lymphocytes # 2.1 Monocytes # 0.8 Eosinophils # Metamyelocytes # 0.4 Myelocytes # 0.8 Sodium Level 140 Potassium Level 4.1 Chloride Level 110 Carbon Dioxide Level 20 L Anion Gap 14 # Blood Urea Nitrogen 39 H Creatinine 0.80 Glucose Level 187 Calcium Level 7.6 L Total Bilirubin 0.1 L Direct Bilirubin 0.00 Indirect Bilirubin 0.1 Aspartate Amino Transf (AST/SGOT) 30 Alanine Aminotransferase (ALT/SGPT) 31 Alkaline Phosphatase 78 Total Protein 5.6 L Albumin 2.3 L Globulin 3.30 H Albumin/Globulin Ratio 0.69 Blood Gas Specimen Source Blood arterial Arterial Blood Date Drawn 06/10/2016 9:05:58 AM Arterial Blood pH (Temp corrected) 7.402 Arterial Blood pCO2 (Temp correct) 29.1 L Arterial Blood pO2 (Temp corrected) 77.7 L Arterial Blood HCO3 17.7 L Arterial Blood Base Excess -5.9 L Arterial Blood Oxygen Saturation 95.0 Zaid Test ACCEPTAB Arterial Blood Gas Puncture Site Right Radial Arterial Blood Carboxyhemoglobin 0.3 Arterial Blood Methemoglobin 0.3 Blood Gas A-a O2 Differential 102.0 H Oxyhemoglobin Percent 94.4 Total Hemoglobin 11.6 L Blood Gas Temperature 37.0 Blood Gas Respiration Rate 14.0 Blood Gas Actual Respiration Rate 30 Blood Gas Modality VENT - AC FiO2 30.0 Blood Gas Tidal Volume 400.0 Blood Gas Low PEEP Setting 5.0 Blood Gas Notified Whom CW Blood Gas Notified Time 06/10/2016 9:14:04 AM Medications Medications Current Medications Sodium Chloride (1/2 NS) 1,000 ml @ 80 mls/hr [id number] IV Last administered on 06/10/16t 06:15; Admin Dose 80 MLS/HR; Start 06/06/16 at 10:01 Flumazenil (Romazicon) 0.2 mg Q1M PRN IV BENZODIAZEPINE OVERDOSE; Start at 10:30 Naloxone HCl (Narcan) 0.4 mg Q3M PRN IV DECREASED REPIRATORY RATE; Start at 10:30 Ondansetron HCl (Zofran Inj) 4 mg Q6H PRN IV NAUSEA AND/OR VOMITING; Start 01/12 at 10:30 Nitroglycerin (Nitroglycerin (Sl Tab) 0.4 Mg) 1 tab Q5M PRN SL CHEST PAIN; Start 06/06/16 at 10:30 Acetaminophen (Tylenol Liquid) 650 mg Q6H PRN PO PAIN LEVEL 1-3 OR FEVER; Start 06/06/16 at 10:30 Morphine Sulfate (morphine) 2 mg Q4H PRN IV PAIN LEVEL 7-10 Last administered on 06/10/16 05:10; Admin Dose 2 MG; Start 06/06/16 at 10:30 Docusate Sodium (Colace) 100 mg Q12H PRN PO CONSTIPATION; Start 06/06/16 at 10: 30 Magnesium Hydroxide (Milk Of Mag) 30 ml DAILY PRN PO CONSTIPATION; Start at 10:30 Bisacodyl (Dulcolax) 5 mg DAILY PRN PO CONSTIPATION; Start 06/06/16 at 10:30 Pantoprazole (Protonix Iv) 40 mg DAILY@06 IV Last administered on 06/10/16 06: 11; Admin Dose 40 MG; Start 06/07/16 at 06:00 Enoxaparin Sodium 40 mg 40 mg DAILY SC Last administered on 06/10/16 09:54; Admin Dose 40 MG; Start 06/07/16 at 09:00 Meropenem 100 ml @ 200 mls/hr Q12 IVPB Last administered on 06/10/16 09:51; Admin Dose 200 MLS/HR; Start 06/06/16 at 13:00 Vancomycin HCl/ Sodium Chloride (Vancocin/NS) 250 ml @ 83.333 mls/ hr Q24H IVPB Last administered on 06/09/16 22:45; Admin Dose 83.333 MLS/HR; Start 01/12 at 23:00 Collagenase (Santyl) 1 applic DAILY TOP Last administered on 06/09/16 09:09; Admin Dose 1 APPLIC; Start 06/07/16 at 09:00 Collagenase (Santyl) 1 applic PRN PRN TOP WOUND CARE; Start 06/06/16 at 16:00 IV Flush (NS 10 ml) 10 ml PRN PRN IV IV PROTOCOL; Start 06/06/16 at 18:30 Ascorbic Acid (Vitamin C) 500 mg DAILY GTB Last administered on 06/09/16 09:07 ; Admin Dose 500 MG; Start 06/07/16 at 09:00 Aspirin (Aspirin) 325 mg DAILY GTB Last administered on 06/09/16 09:06; Admin Dose 325 MG; Start 06/07/16 at 09:00 Multivitamins (Thera-Plus) 5 ml DAILY GTB Last administered on 06/09/16 09:06 ; Admin Dose 5 ML; Start 06/07/16 at 09:00 Tamsulosin HCl (Flomax) 0.4 mg HS PO Last administered on 06/09/16 21:07; Admin Dose 0.4 MG; Start 06/07/16 at 21:00 Zinc Sulfate (Zinc Sulfate) 220 mg DAILY GTB Last administered on 06/09/16 09: 07; Admin Dose 220 MG; Start 06/07/16 at 09:00 Mupirocin (Bactroban) 1 applic BID TOP Last administered on 06/10/16 09:55; Admin Dose 1 APPLIC; Start 06/07/16 at 21:00 Metoclopramide HCl (Reglan) 10 mg Q6H PRN IV NAUSEA AND/OR VOMITING Last administered on 06/08/16 18:00; Admin Dose 10 MG; Start 06/08/16 at 09:30 Atenolol (Tenormin) 25 mg DAILY PO Last administered on 06/09/16 09:07; Admin Dose 25 MG; Start 06/08/16 at 11:30 Lorazepam 1 mg 1 mg Q6H PRN IV AGITATION/ANXIETY Last administered on 08:27; Admin Dose 1 MG; Start 06/09/16 at 13:30 Propofol 100 ml @ 2.25 mls/hr Q12H IV Last administered on 06/10/16 08:34; Admin Dose 2.25 MLS/HR; Start 06/10/16 at 08:00 Fluconazole (Diflucan 200 Mg/ NS (Pmx)) 100 ml @ 100 mls/hr Q24H IVPB Last administered on 06/10/16 09:51; Admin Dose 100 MLS/HR; Start 06/10/16 at 09:00 HOLLI LINDER MD Jun 10, 2016 16:50
--- NOTE | 2016-06-10 17:39 | RADRPT ---
PROCEDURE: XR Abdomen 1 View. CLINICAL INDICATION: Abdominal pain, bowel obstruction TECHNIQUE: AP abdomen x-ray. COMPARISON: May 06, 2016 FINDINGS: Gastrostomy tube has its distal end over the expected location of the stomach. Air and stool are se en scattered in the colon. Multiple air-filled loops of small bowel are seen in the abdomen. A few loops of small bowel appear dilated and measure up to approximately 3.1 cm in diameter. No organo megaly is identified. Vascular calcifications are noted in the left upper quadrant. Degenerative ch anges are seen in the hips and spine. Alfonso catheter is identified over the pelvis. IMPRESSION: Multiple air-filled loops of small bowel in the abdomen, a few which appear dilated. Finding could reflect small bowel ileus or obstruction. If further characterization is needed CT is recommended. Call report: A call report of the findings was made to the patient's nurse, Lea, at 5:35 PM on 06/10/2016 . RPTAT: AA .Fernando Santiago MD, Date Time Electronically viewed and signed by .Fernando Santiago MD, on 06/10/2016 17:38 .P/
[2016-06-10] MEDS: DEXTROSE 5%-0.45% NACL 1,000 ML IV SCH (18:13)
[2016-06-10] MEDS ORDERED: BARIUM SULF 2% 450 ML BTL (BERRY SMOOTHIE) PO ONE (18:30)
[2016-06-10] MEDS ORDERED: SOD CHLORIDE 0.9% 100 ML ONE (19:58)
[2016-06-10] MEDS ORDERED: IOHEXOL 300MG/ML 150 ML BTL ONE (19:58)
[2016-06-10] MEDS ORDERED: IOHEXOL 300MG/ML 30 ML BTL PO STA (20:07)
[2016-06-10] MEDS ORDERED: IOHEXOL 14.3 MG(I)/ML (ADULT) BTL PO ONE (21:00)
[2016-06-10] MEDS: TAMSULOSIN (SR) 0.4 MG CAP PO SCH (21:00)
[2016-06-11] VITALS (81 sets, daily range): BP systolic 90–130; BP diastolic 40–92; PULSE 60–105; RESP 14–32
--- NOTE | 2016-06-11 01:23 | RADRPT ---
AMENDMENT: 06/11/2016 2:13:30 AM Jaime Diaz M.d Addendum: For clarification, In the left anterior mid pelvis there is an approximate 6.3 x 3.2 x 4.7 cm air and fluid collection which does not appear to be bowel, and is suspicious for an abscess/loc alized perforation. Orally administered contrast is seen in small bowel loops to the level of the pe lvis and is not seen in the colon. No dilated small bowel loops suggestive of small bowel obstructi on are seen. Discussed with the patient's ICU nurse. PROCEDURE: CT Abdomen and Pelvis with contrast. CLINICAL INDICATION: Abdominal pain, abnormal abdominal radiographs, evaluate for ileus/bowel obst ruction. TECHNIQUE: CT scan of the abdomen and pelvis with contrast was performed on a multi-detector high- resolution CT scanner. The patient was scanned following the intravenous administration of 100 cc o f Omnipaque 300. The patient ingested 15 cc of Omnipaque-300 and 1 liter of water oral contrast. Cor onal and sagittal reformatted images were obtained from the axial source images. Images were reviewe d on a high-resolution PACS workstation. The total exam CTDI equals 20.61 mGy and the total exam DLP equals 1224.92 mGy-cm. One or more the following dose reduction techniques were utilized: Automated exposure control, adjus tment of the mA/ or kV according to patient's size, or use of iterative reconstruction technique. COMPARISON: Abdominal radiographs of 06/10/2016 FINDINGS: CT abdomen: Dual chamber cardiac pacemaker leads. Small bilateral pleural effusions left larger than right. Bi lateral lower lobe partial atelectasis. The heart size is normal, without pericardial thickening or effusion. The liver is normal in size and density without focal mass or intrahepatic biliary dilata tion. The spleen is normal in size and homogeneous in density. Gastrostomy tube in stomach. Small amount of air in gastric wall which could be secondary to gastrostomy. No orally administered contr ast is seen outside of the intestinal tract. No free pneumoperitoneum is seen. The pancreas as vis ualized is normal. There is cholelithiasis apparent. The adrenal glands are symmetric and normal. 2 mm low density structure too small to characterize in the upper right kidney. No imaging follow- up of this is recommended. There is an approximate 1.6 cm rounded relatively low density structure in the upper left kidney which could represent a hyperattenuating cyst or solid mass. There is mild bilateral renal cortical thinning bilaterally. The aorta is of normal caliber. Aortic vascular calcifications are present. Calcification in branch es of the abdominal aorta including the iliac arteries. There is no retroperitoneal lymphadenopathy. The bebeto hepatis region is clear. Diverticula in sigmoid, descending colon. CT pelvis: The small bowel loops situated within the pelvis are unremarkable. The pelvic organs are normal. T he pelvic sidewalls and inguinal regions are clear. The sigmoid colon and rectum are remarkable for sigmoid diverticulosis. Small amount of ascites. Alfonso catheter in bladder. Subcutaneous edema. Small foci of air subcutaneous fat right anterior pelvic wall likely second to recent injections. In the left anterior mid pelvis there is an approximate 6.3 x 3.2 x 4.7 cm air and fluid collection not definitely bowel suspicious for an abscess/localized perforation. Lumbar spondylosis. Degenerative changes at sacroiliac joints and hips. Small scattered likely bon [place] islands. Spinal stenosis in lumbar spine at apparent L2-3. Large vertebral body osteophytes. IMPRESSION: In the left anterior mid pelvis there is an approximate 6.3 x 3.2 x 4.7 cm air and fluid collection not definitely bowel suspicious for an abscess/localized perforation. Diverticula in sigmoid and de scending colon. Small amount of ascites. Gastrostomy tube in stomach. Small amount of air in gastr ic wall which could be secondary to the gastrostomy. No orally administered contrast is seen outside of the intestinal tract. No free pneumoperitoneum is seen. 1.6 cm rounded relatively low density s tructure in the upper left kidney which could represent a hyperattenuating cyst or solid mass. Claudine l ultrasound is recommended. Cholelithiasis. Atherosclerosis. Critical result discussed with Becca Benites at 01:18 a.m. on 06/11/2016. RPTAT: HJES .Jaime Diaz MD, Date Time Electronically viewed and signed by .Jaime Diaz MD, MD on 06/11/2016 02:13 .S/
[2016-06-11] MEDS: IPRATROPIUM (HFA) 12.9 GM INHALER INH SCH ×6 (01:41→21:03)
[2016-06-11] MEDS: ALBUTEROL 18 GM INHALER INH SCH ×6 (01:42→21:03)
--- NOTE | 2016-06-11 04:44 | PN ---
DATE: 06/10/2016 SUBJECTIVE: The patient developed acute respiratory distress, possibly aspirated. He also had an e pisode of vomiting. He is unresponsive, lying comfortably in bed. LABORATORY DATA: WBC today 42.4, platelets 308, neutrophils 86, bands 4, lymphs 5, monos 2. BUN is 39 and creatinine 0.80. DIAGNOSTICS: Chest x-ray revealed cardiomegaly with diffuse opacities, small bilateral pleural effu sions. The patient also had a KUB that showed multiple air-filled loops of small bowel in the abdom en, questionable small bowel ileus or obstruction. INDWELLINGS: Trache, PEG, Alfonso, PICC line placed on 06/03/2016 to 06/06/2016. ANTIMICROBIALS: The patient is on: 1. Vancomycin. 2. Fluconazole. 3. Topical Bactroban. 4. . 5. Meropenem. PHYSICAL EXAMINATION: GENERAL: This is a chronically ill-appearing, elderly man who is in no distress. HEENT: Head atraumatic, normocephalic. Sclerae are anicteric. Buccal mucosa dry. NECK: Supple. CHEST: Rise symmetrical. Breath sounds diminished to bases. HEART: S1, S2. ABDOMEN: Distended. Bowel sounds hypoactive. EXTREMITIES: With trace edema. ASSESSMENT: 1. Sepsis with acute on chronic respiratory failure. 2. Ileus, possible small-bowel obstruction. 3. Healthcare-associated pneumonia with possible aspiration. 4. Methicillin-resistant Staphylococcus aureus bacteremia on admission with repeat blood cultures n egative. 4. Methicillin-resistant Staphylococcus aureus nares colonization. 5. Enterococcal urinary tract infection. 6. Sacral decubitus ulcer. 7. History of permanent pacemaker placement. PLAN: The patient is doing poorly. He is being seen by multiple consultants. He is on broad spect rum antibiotics. Recommend GI evaluation and CT of the abdomen and pelvis. Prognosis guarded. Dictated By: JOSE G CUNNINGHAM [employer] for RASHIDA HUSSEIN/TRACY Conf#: [id number] DID#: [id number]
[2016-06-11 05:23] LABS: ADD SCAN DIFF NO
[2016-06-11] MEDS: PROPOFOL 100 ML IV SCH ×3 (05:33→20:00)
[2016-06-11] MEDS: VANCOMYCIN 1.25 GM in SOD CHLORIDE 0.9% 250 ML IVPB SCH (05:33)
[2016-06-11] MEDS: PANTOPRAZOLE 40 MG INJ IV SCH (05:33)
[2016-06-11 05:37] LABS: INR 1.21; PARTIAL THROMBOPLASTIN TIME 33.7 Sec (25.0-35.0); PROTIME 15.4 Sec (12.2-14.2); PT RATIO 1.2
[2016-06-11 05:48] LABS: ALBUMIN 2.1 g/dl (3.3-4.9)
[2016-06-11 05:49] LABS: ABNORMAL IP MESSAGE 1; HEMOGLOBIN 7.2 g/dl (14.0-18.0); MEAN CORPUSCULAR HEMOGLOBIN 29.4 pg (29.0-33.0); MEAN CORPUSCULAR HGB CONC 31.3 g/dl (32.0-37.0); MEAN CORPUSCULAR VOLUME 93.9 fl (82.0-101.0); MEAN PLATELET VOLUME 11.3 fl (7.4-10.4); PLATELET COUNT 221 10^3/UL (140-415); POTASSIUM 3.4 mmol/L (3.5-5.1); RED BLOOD COUNT 2.45 10^6/ul (4.70-6.10); RED CELL DISTRIBUTION WIDTH 15.4 % (11.5-14.5); WHITE BLOOD COUNT 35.8 10^3/ul (4.8-10.8)
[2016-06-11 05:51] LABS: ALBUMIN/GLOBULIN RATIO 0.84; BILIRUBIN,INDIRECT 0.1 mg/dl (0-1.1); BILIRUBIN,TOTAL 0.1 mg/dl (0.2-1.3); CREATININE 0.8 mg/dl (0.61-1.24); TOTAL PROTEIN 4.6 g/dl (6.1-8.1)
[2016-06-11] MEDS ORDERED: POTASSIUM CHLORIDE 250 ML IVPB ONE ×3 (08:30→14:30)
[2016-06-11] MEDS: MULTIVITAMINS 5 ML CUP GTB SCH (09:00)
[2016-06-11] MEDS: ENOXAPARIN 40 MG/0.4 ML SYG SC SCH (09:00)
[2016-06-11] MEDS: ZINC SULFATE 220 MG CAP GTB SCH (09:00)
[2016-06-11] MEDS: ATENOLOL 25 MG TAB PO SCH (09:00)
[2016-06-11] MEDS: ASPIRIN 325 MG TAB GTB SCH (09:00)
[2016-06-11] MEDS: ASCORBIC ACID 500 MG TAB GTB SCH (09:00)
[2016-06-11] MEDS: MUPIROCIN 2% 22 GM OINT TOP SCH ×2 (09:27→22:21)
[2016-06-11] MEDS: MEROPENEM 500 MG/100 ML (PMX) 100 ML IVPB SCH ×2 (09:33→22:21)
[2016-06-11] MEDS: FLUCONAZOLE 200 MG/NS (PMX) 100 ML IVPB SCH (09:33)
[2016-06-11 09:49] LABS: LYMPHOCYTES # 1.8 10^3/ul (0.8-2.9); MONOCYTE # 0.7 10^3/ul (0.3-0.9); MYELOCYTES # 1.1; NEUTROPHIL # 30.4 10^3/ul (1.6-7.5)
--- NOTE | 2016-06-11 10:36 | RADRPT ---
Echocardiogram Report Patient Name: MAME HERBERT Gender: Male Date: 1930 Study Date: 10-Jun-2016 Php Mysql Developer: VASILE Location: I Ref. Physician: RYAN FERMIN Quality: Adequate Procedures: Transthoracic echocardiogram with complete 2D, M-Mode, and Doppler examination. Indications: Evaluate Left Ventricular function. 2D/M Mode Doppler Measurement Value Normal Ranges Measurement Value Normal Ranges AoR Diam MM 3.8 cm AV Peak Ulices 0.8 m/sec ACS MM 1.9 cm AV Peak PG 2.3 mmHg LVIDd 2D 5.0 3.5 - 5.6 cm LVOT Peak Ulices 0.5 m/sec LVIDs 2D 4.1 2.1 - 4.1 cm LVOT Peak PG 0.8 mmHg LVPWd 2D 1.1 0.6 - 1.1 cm MV E Peak Ulices 0.5 m/sec IVSd 2D 1.1 0.6 - 1.1 cm MV A Peak Ulices 0.8 m/sec EDV 2D 119.8 cm3 MV E/A 0.6 ESV 2D 70.4 cm3 MV Decel Time 295 msec LA Dimen 2D 3.4 2.3 - 4.0 cm MV Decel Hawkins 2 MV E/A 0.6 TR Peak Ulices 2.9 m/sec TR Peak PG 33.4 mmHg RVSP 36.4 mmHg Findings Left Ventricle: Normal left ventricular cavity size. Normal left ventricular wall thickness. Severe left ventricular systolic dysfunction. Ejection fraction is visually estimated at 25 %. Tissue Doppler/Mitral Doppler indices are consistent with impaired relaxation (Stage I diastolic dysfunction). E/E`=6. Multiple segmental wall motion abnormalities. Right Ventricle: Normal right ventricular size. Normal right ventricular systolic function. Left Atrium: The left atrium is normal in size. Right Atrium: The right atrium is normal in size. Atrial Septum: Normal atrial septum. Mitral Valve: Normal appearance of the mitral valve. Severe mitral valve regurgitation. Aortic Valve: Normal trileaflet aortic valve structure. No hemodynamically significant aortic stenosis by doppler. Aortic cusps appear mildly calcified. Trace aortic valve regurgitation. Tricuspid Valve: Normal appearance of the tricuspid valve. Estimated peak PA systolic pressure 36 mmHg. There is moderate tricuspid regurgitation. Pulmonic Valve: Pulmonic valve not well visualized. There is trace pulmonic regurgitation. Pericardium: Normal pericardium with no significant pericardial effusion. Pleural effusion seen. Aorta: Normal aortic root. IVC: Normal size and normal respiratory collapse consistent with normal right atrial pressure. Pulmonary Artery: Normal pulmonary artery size. Conclusions 1.Normal left ventricular cavity size. Normal left ventricular wall thickness. Severe left ventricular systolic dysfunction. Ejection fraction is visually estimated at 20- 25 %. Tissue Doppler/Mitral Doppler indices are consistent with impaired relaxation (Stage I diastolic dysfunction). E/E`=6. Multiple segmental wall motion abnormalities. 2.Normal appearance of the mitral valve. Severe mitral valve regurgitation. 3.Normal trileaflet aortic valve structure. No hemodynamically significant aortic stenosis by doppler. Aortic cusps appear mildly calcified. Trace aortic valve regurgitation. 4.Normal appearance of the tricuspid valve. Estimated peak PA systolic pressure 36 mmHg. There is moderate tricuspid regurgitation. 5.Normal pericardium with no significant pericardial effusion. Pleural effusion seen. Electronically Signed By: Ryan Fermin 11-Jun-2016 10:34:54 -0700 Patient Name: MAME EHRBERT Study Date: 10-Jun-2016 [id number]
--- NOTE | 2016-06-11 11:48 | CONS ---
Date/Time of Note Date/Time of Note DATE: 06/11/16 TIME: 11:45 Assessment/Plan Assessment/Plan Additional Assessment/Plan Ventilator settings are AC of 14, tidal volume 400, PEEP of 5, 30% FiO2. Assessment recommendations; 1. Patient admitted for pneumonia and sepsis status post tracheostomy and G- tube placement. 2. Possibly bowel perforation. 3. Chronic atrial fib relation. 4. Sacral decubitus ulcer possibly a source of infection. 5. Advanced dementia. 6. Anemia. Transfuse 1 unit packed RBC. Continue current supportive care. Patient's prognosis is poor. Consultation Date/Type/Reason Admit Date/Time Jun 06, 2016 at 08:08 Initial Consult Date 06/07/16 Type of Consultation: Pulmonary/critical care Referring Provider: HOLLI LINDER MD 24 HR Interval Summary Free Text/Dictation Patient condition remains critical. Pain essentially unresponsive. Pharynx additional with propofol drip. Patient has developed bowel perforation. General exam; elderly male, on ventilator via tracheostomy sedated. Currently in no distress. Exam/Review of Systems Vital Signs Vitals Vital Signs Date Time Temp Pulse Resp B/P Pulse Ox O2 Delivery O2 Flow Rate FiO2 06/11/16 11:00 60 27 100 30 06/11/16 11:00 114/46 Mechanical Ventilator 06/11/16 04:00 98.5 Intake and Output 06/10/16 06/10/16 06/11/16 15:00 23:00 07:00 Intake Total 460.16 ml 1586.0 ml 560.33 ml Output Total 1110 ml 1125 ml 925 ml Balance -649.84 ml 461.0 ml -364.67 ml Exam HEENT examination; supple neck, no JVD. No lymphadenopathy. Midline trachea. Patient has a tracheostomy in place with clean insertion site. He is edentulous. Has bilateral corneal opacities. Chest examined; diminished but clear breath sounds. S1-S2 audible, irregular rhythm. There is a pacemaker in the right chest wall. Abdomen exam is; soft, G-tube in place. Bowel sounds are very sluggish to absent. No organomegaly. Extremity exam is; no peripheral edema. Back examination reveals dressing applied over sacrum. [employer] REPA[employer]ER examination; patient remains sedated. Results Result Diagram: 06/11/16 0350 06/11/16 0350 Results 24 hrs Laboratory Tests Test 06/11/16 03:50 06/11/16 04:15 White Blood Count 35.8 H Red Blood Count 2.45 L Hemoglobin 7.2 L Hematocrit 23.0 L Mean Corpuscular Volume 93.9 Mean Corpuscular Hemoglobin 29.4 Mean Corpuscular Hemoglobin Concent 31.3 L Red Cell Distribution Width 15.4 H Platelet Count 221 # Mean Platelet Volume 11.3 H Neutrophils % 85.0 H Band Neutrophils % 4.0 Lymphocytes % 5.0 L Monocytes % 2.0 Eosinophils % Metamyelocytes % 1.0 H Myelocytes % 3.0 H Nucleated Red Blood Cells % 1.0 H Neutrophils # 30.4 H Lymphocytes # 1.8 Monocytes # 0.7 Eosinophils # Metamyelocytes # 0.4 Myelocytes # 1.1 Sodium Level 138 Potassium Level 3.4 L Chloride Level 107 Carbon Dioxide Level 24 Anion Gap 10 Blood Urea Nitrogen 42 H Creatinine 0.80 Glucose Level 102 # Calcium Level 7.0 L Total Bilirubin 0.1 L Direct Bilirubin 0.00 Indirect Bilirubin 0.1 Aspartate Amino Transf (AST/SGOT) 30 Alanine Aminotransferase (ALT/SGPT) 33 Alkaline Phosphatase 44 Total Protein 4.6 #L Albumin 2.1 L Globulin 2.50 Albumin/Globulin Ratio 0.84 Prothrombin Time 15.4 H Prothrombin Time Ratio 1.2 INR International Normalized Ratio 1.21 Activated Partial Thromboplast Time 33.7 Medications Medications Current Medications Flumazenil (Romazicon) 0.2 mg Q1M PRN IV BENZODIAZEPINE OVERDOSE; Start at 10:30 Naloxone HCl (Narcan) 0.4 mg Q3M PRN IV DECREASED REPIRATORY RATE; Start at 10:30 Ondansetron HCl (Zofran Inj) 4 mg Q6H PRN IV NAUSEA AND/OR VOMITING; Start 01/12 at 10:30 Nitroglycerin (Nitroglycerin (Sl Tab) 0.4 Mg) 1 tab Q5M PRN SL CHEST PAIN; Start 06/06/16 at 10:30 Acetaminophen (Tylenol Liquid) 650 mg Q6H PRN PO PAIN LEVEL 1-3 OR FEVER; Start 06/06/16 at 10:30 Morphine Sulfate (morphine) 2 mg Q4H PRN IV PAIN LEVEL 7-10 Last administered on 06/10/16t 05:10; Admin Dose 2 MG; Start 06/06/16 at 10:30 Docusate Sodium (Colace) 100 mg Q12H PRN PO CONSTIPATION; Start 06/06/16 at 10: 30 Magnesium Hydroxide (Milk Of Mag) 30 ml DAILY PRN PO CONSTIPATION; Start at 10:30 Bisacodyl (Dulcolax) 5 mg DAILY PRN PO CONSTIPATION; Start 06/06/16 at 10:30 Pantoprazole (Protonix Iv) 40 mg DAILY@06 IV Last administered on 06/11/16 05: 33; Admin Dose 40 MG; Start 06/07/16 at 06:00 Enoxaparin Sodium 40 mg 40 mg DAILY SC Last administered on 06/10/16 09:54; Admin Dose 40 MG; Start 06/07/16 at 09:00 Meropenem (Merrem 500 Mg/ 100 ml (Pmx)) 100 ml @ 200 mls/hr Q12 IVPB Last administered on 06/11/16 09:33; Admin Dose 200 MLS/HR; Start 06/06/16 at 13:00 Collagenase (Santyl) 1 applic DAILY TOP Last administered on 06/09/16 09:09; Admin Dose 1 APPLIC; Start 06/07/16 at 09:00 Collagenase (Santyl) 1 applic PRN PRN TOP WOUND CARE; Start 06/06/16 at 16:00 IV Flush (NS 10 ml) 10 ml PRN PRN IV IV PROTOCOL; Start 06/06/16 at 18:30 Ascorbic Acid (Vitamin C) 500 mg DAILY GTB Last administered on 06/09/16 09:07 ; Admin Dose 500 MG; Start 06/07/16 at 09:00 Aspirin (Aspirin) 325 mg DAILY GTB Last administered on 06/09/16 09:06; Admin Dose 325 MG; Start 06/07/16 at 09:00 Multivitamins (Thera-Plus) 5 ml DAILY GTB Last administered on 06/09/16 09:06 ; Admin Dose 5 ML; Start 06/07/16 at 09:00 Tamsulosin HCl (Flomax) 0.4 mg HS PO Last administered on 06/09/16 21:07; Admin Dose 0.4 MG; Start 06/07/16 at 21:00 Zinc Sulfate (Zinc Sulfate) 220 mg DAILY GTB Last administered on 06/09/16 09: 07; Admin Dose 220 MG; Start 06/07/16 at 09:00 Mupirocin (Bactroban) 1 applic BID TOP Last administered on 06/11/16 09:27; Admin Dose 1 APPLIC; Start 06/07/16 at 21:00 Metoclopramide HCl (Reglan) 10 mg Q6H PRN IV NAUSEA AND/OR VOMITING Last administered on 06/08/16 18:00; Admin Dose 10 MG; Start 06/08/16 at 09:30 Atenolol (Tenormin) 25 mg DAILY PO Last administered on 06/09/16 09:07; Admin Dose 25 MG; Start 06/08/16 at 11:30 Lorazepam 1 mg 1 mg Q6H PRN IV AGITATION/ANXIETY Last administered on 08:27; Admin Dose 1 MG; Start 06/09/16 at 13:30 Propofol 100 ml @ 2.25 mls/hr Q12H IV Last administered on 06/11/16 05:33; Admin Dose 4.5 MLS/HR; Start 06/10/16 at 08:00 Fluconazole 100 ml @ 100 mls/hr Q24H IVPB Last administered on 06/11/16 09:33 ; Admin Dose 100 MLS/HR; Start 06/10/16 at 09:00 Dextrose/Sodium Chloride 1,000 ml @ 50 mls/hr Q20H IV Last administered on 18:13; Admin Dose 50 MLS/HR; Start 06/10/16 at 18:00 Norepinephrine 16 mg/Dextrose 500 ml @ 1.87 mls/hr TITRATE IV ; Start 06/10/16 at 20:30 Potassium Chloride 250 ml @ 62.5 mls/hr ONCE ONCE IVPB Last administered on 09:25; Admin Dose 62.5 MLS/HR; Start 06/11/16 at 08:30; Stop 06/11/16 at 12:29 Vancomycin HCl/ Sodium Chloride (Vancocin/NS) 250 ml @ 83.333 mls/ hr Q24H IVPB ; Start 06/12/16 at 05:00 GERALDINE CUNNINGHAM Jun 11, 2016 11:48
[2016-06-11] MEDS ORDERED: IOHEXOL 300MG/ML 30 ML BTL ONE (12:21)
[2016-06-11] MEDS ORDERED: SOD CHLORIDE 0.9% 100 ML ONE (12:21)
--- NOTE | 2016-06-11 12:30 | CONS ---
Date/Time of Note Date/Time of Note DATE: 06/11/16 TIME: 12:24 Assessment/Plan Assessment/Plan Additional Assessment/Plan VDRF CHF Cardiomyopathy Atrial fibrillation s/p PPM Anemia Aspiration Pneumonia Hypotension resolved with albumin bolus Pacemaker function normally Continue Vent support and aggressive pulmonary toiletry Continue Antibiotics Awaiting Blood Transfusion If hypotensive will consider Levophed No anticoagulation for now Keep Mag > 2 and Potassium > [address] Abdomen and Pelvis later today Consultation Date/Type/Reason Admit Date/Time Jun 06, 2016 at 08:08 Initial Consult Date 06/07/16 Type of Consultation: Pulmonary/critical care Referring Provider: HOLLI LINDER MD Exam/Review of Systems Vital Signs Vitals Vital Signs Date Time Temp Pulse Resp B/P Pulse Ox O2 Delivery O2 Flow Rate FiO2 06/11/16 12:00 62 06/11/16 11:00 27 100 30 06/11/16 11:00 114/46 Mechanical Ventilator 06/11/16 04:00 98.5 Intake and Output 06/10/16 06/10/16 06/11/16 15:00 23:00 07:00 Intake Total 460.16 ml 1586.0 ml 560.33 ml Output Total 1110 ml 1125 ml 925 ml Balance -649.84 ml 461.0 ml -364.67 ml Exam Non verbal Neck Trach on Vent Heart RRR, No M/R/G Chest Mechanical Breath sounds heard bilaterally Abdomen: Soft BS heard but distended Ext No pedal edema Results Result Diagram: 06/11/16 0350 06/11/16 0350 Results 24 hrs Laboratory Tests Test 06/11/16 03:50 06/11/16 04:15 White Blood Count 35.8 H Red Blood Count 2.45 L Hemoglobin 7.2 L Hematocrit 23.0 L Mean Corpuscular Volume 93.9 Mean Corpuscular Hemoglobin 29.4 Mean Corpuscular Hemoglobin Concent 31.3 L Red Cell Distribution Width 15.4 H Platelet Count 221 # Mean Platelet Volume 11.3 H Neutrophils % 85.0 H Band Neutrophils % 4.0 Lymphocytes % 5.0 L Monocytes % 2.0 Eosinophils % Metamyelocytes % 1.0 H Myelocytes % 3.0 H Nucleated Red Blood Cells % 1.0 H Neutrophils # 30.4 H Lymphocytes # 1.8 Monocytes # 0.7 Eosinophils # Metamyelocytes # 0.4 Myelocytes # 1.1 Sodium Level 138 Potassium Level 3.4 L Chloride Level 107 Carbon Dioxide Level 24 Anion Gap 10 Blood Urea Nitrogen 42 H Creatinine 0.80 Glucose Level 102 # Calcium Level 7.0 L Total Bilirubin 0.1 L Direct Bilirubin 0.00 Indirect Bilirubin 0.1 Aspartate Amino Transf (AST/SGOT) 30 Alanine Aminotransferase (ALT/SGPT) 33 Alkaline Phosphatase 44 Total Protein 4.6 #L Albumin 2.1 L Globulin 2.50 Albumin/Globulin Ratio 0.84 Prothrombin Time 15.4 H Prothrombin Time Ratio 1.2 INR International Normalized Ratio 1.21 Activated Partial Thromboplast Time 33.7 Medications Medications Current Medications Flumazenil (Romazicon) 0.2 mg Q1M PRN IV BENZODIAZEPINE OVERDOSE; Start at 10:30 Naloxone HCl (Narcan) 0.4 mg Q3M PRN IV DECREASED REPIRATORY RATE; Start at 10:30 Ondansetron HCl (Zofran Inj) 4 mg Q6H PRN IV NAUSEA AND/OR VOMITING; Start 01/12 at 10:30 Nitroglycerin (Nitroglycerin (Sl Tab) 0.4 Mg) 1 tab Q5M PRN SL CHEST PAIN; Start 06/06/16 at 10:30 Acetaminophen (Tylenol Liquid) 650 mg Q6H PRN PO PAIN LEVEL 1-3 OR FEVER; Start 06/06/16 at 10:30 Morphine Sulfate (morphine) 2 mg Q4H PRN IV PAIN LEVEL 7-10 Last administered on 06/10/16 05:10; Admin Dose 2 MG; Start 06/06/16 at 10:30 Docusate Sodium (Colace) 100 mg Q12H PRN PO CONSTIPATION; Start 06/06/16 at 10: 30 Magnesium Hydroxide (Milk Of Mag) 30 ml DAILY PRN PO CONSTIPATION; Start at 10:30 Bisacodyl (Dulcolax) 5 mg DAILY PRN PO CONSTIPATION; Start 06/06/16 at 10:30 Pantoprazole (Protonix Iv) 40 mg DAILY@06 IV Last administered on 06/11/16 05: 33; Admin Dose 40 MG; Start 06/07/16 at 06:00 Enoxaparin Sodium 40 mg 40 mg DAILY SC Last administered on 06/10/16 09:54; Admin Dose 40 MG; Start 06/07/16 at 09:00 Meropenem (Merrem 500 Mg/ 100 ml (Pmx)) 100 ml @ 200 mls/hr Q12 IVPB Last administered on 06/11/16 09:33; Admin Dose 200 MLS/HR; Start 06/06/16 at 13:00 Collagenase (Santyl) 1 applic DAILY TOP Last administered on 06/09/16 09:09; Admin Dose 1 APPLIC; Start 06/07/16 at 09:00 Collagenase (Santyl) 1 applic PRN PRN TOP WOUND CARE; Start 06/06/16 at 16:00 IV Flush (NS 10 ml) 10 ml PRN PRN IV IV PROTOCOL; Start 06/06/16 at 18:30 Ascorbic Acid (Vitamin C) 500 mg DAILY GTB Last administered on 06/09/16 09:07 ; Admin Dose 500 MG; Start 06/07/16 at 09:00 Aspirin (Aspirin) 325 mg DAILY GTB Last administered on 06/09/16 09:06; Admin Dose 325 MG; Start 06/07/16 at 09:00 Multivitamins (Thera-Plus) 5 ml DAILY GTB Last administered on 06/09/16 09:06 ; Admin Dose 5 ML; Start 06/07/16 at 09:00 Tamsulosin HCl (Flomax) 0.4 mg HS PO Last administered on 06/09/16 21:07; Admin Dose 0.4 MG; Start 06/07/16 at 21:00 Zinc Sulfate (Zinc Sulfate) 220 mg DAILY GTB Last administered on 06/09/16 09: 07; Admin Dose 220 MG; Start 06/07/16 at 09:00 Mupirocin (Bactroban) 1 applic BID TOP Last administered on 06/11/16 09:27; Admin Dose 1 APPLIC; Start 06/07/16 at 21:00 Metoclopramide HCl (Reglan) 10 mg Q6H PRN IV NAUSEA AND/OR VOMITING Last administered on 06/08/16 18:00; Admin Dose 10 MG; Start 06/08/16 at 09:30 Atenolol (Tenormin) 25 mg DAILY PO Last administered on 06/09/16 09:07; Admin Dose 25 MG; Start 06/08/16 at 11:30 Lorazepam 1 mg 1 mg Q6H PRN IV AGITATION/ANXIETY Last administered on 08:27; Admin Dose 1 MG; Start 06/09/16 at 13:30 Propofol 100 ml @ 2.25 mls/hr Q12H IV Last administered on 06/11/16 05:33; Admin Dose 4.5 MLS/HR; Start 06/10/16 at 08:00 Fluconazole 100 ml @ 100 mls/hr Q24H IVPB Last administered on 06/11/16 09:33 ; Admin Dose 100 MLS/HR; Start 06/10/16 at 09:00 Dextrose/Sodium Chloride 1,000 ml @ 50 mls/hr Q20H IV Last administered on 18:13; Admin Dose 50 MLS/HR; Start 06/10/16 at 18:00 Norepinephrine 16 mg/Dextrose 500 ml @ 1.87 mls/hr TITRATE IV ; Start 06/10/16 at 20:30 Potassium Chloride 250 ml @ 62.5 mls/hr ONCE ONCE IVPB Last administered on 09:25; Admin Dose 62.5 MLS/HR; Start 06/11/16 at 08:30; Stop 06/11/16 at 12:29 Vancomycin HCl/ Sodium Chloride (Vancocin/NS) 250 ml @ 83.333 mls/ hr Q24H IVPB ; Start 06/12/16 at 05:00 CHRISTIAN FERMIN M.D. Jun 11, 2016 12:30
--- NOTE | 2016-06-11 13:50 | PN ---
Date/Time of Note Date/Time of Note DATE: 06/11/16 TIME: 13:48 Assessment/Plan VTE Prophylaxis VTE Prophylaxis Intervention: other Lines/Catheters IV Catheter Type (from Nrs): PICC Line Central line still needed: Yes Urinary Cath still in place: Yes Reason Cath still needed: other (indicate) Assessment/Plan Chief Complaint/Hosp Course IMPRESSION: 1. Septic shock.better 2. Pneumonia. aspiration 3. Leukocytosis. 4. Hematuria. better 5. Lactic acidosis. 6. Respiratory failure. 7. Gastrostomy tube placement. 8. Anemia. 9. Atrial fibrillation. 10. History of congestive heart failure with decreased ejection fraction. 11. vdrf 12. History of paroxysmal atrial fibrillation. 13. The patient now has decubitus. 14 uti 15 In the left anterior mid pelvis there is an approximate 6.3 x 3.2 x 4.7 cm air and fluid collection not definitely bowel suspicious for an abscess/ localized perforation. Diverticula in sigmoid and descending colon. Small amount of ascites. Gastrostomy tube in stomach. Small amount of air in gastric wall which could be secondary to the gastrostomy. No orally administered contrast is seen outside of the intestinal tract. No free pneumoperitoneum is seen. 1.6 cm rounded relatively low density structure in the upper left kidney which could represent a hyperattenuating cyst or solid mass. plan antibiotic per id weaning per pulmonary and cardio surgery consult npo Problems: Subjective 24 Hr Interval Summary Subjective hx not possible: other (awake on vent chemical code per family) Exam/Review of Systems Vital Signs Vitals Vital Signs Date Time Temp Pulse Resp B/P Pulse Ox O2 Delivery O2 Flow Rate FiO2 06/11/16 13:15 60 29 110/50 100 06/11/16 12:00 97.7 06/11/16 11:00 30 06/11/16 11:00 Mechanical Ventilator Intake and Output 06/10/16 06/10/16 06/11/16 15:00 23:00 07:00 Intake Total 460.16 ml 1586.0 ml 560.33 ml Output Total 1110 ml 1125 ml 1025 ml Balance -649.84 ml 461.0 ml -464.67 ml Exam Cardiovascular: regular rate and rhythm Gastrointestinal: bowel sounds (+), soft, No tender Extremities: No edema Results Result Diagram: 06/11/16 0350 06/11/16 0350 Results 24 hrs Laboratory Tests Test 06/11/16 03:50 06/11/16 04:15 White Blood Count 35.8 H Red Blood Count 2.45 L Hemoglobin 7.2 L Hematocrit 23.0 L Mean Corpuscular Volume 93.9 Mean Corpuscular Hemoglobin 29.4 Mean Corpuscular Hemoglobin Concent 31.3 L Red Cell Distribution Width 15.4 H Platelet Count 221 # Mean Platelet Volume 11.3 H Neutrophils % 85.0 H Band Neutrophils % 4.0 Lymphocytes % 5.0 L Monocytes % 2.0 Eosinophils % Metamyelocytes % 1.0 H Myelocytes % 3.0 H Nucleated Red Blood Cells % 1.0 H Neutrophils # 30.4 H Lymphocytes # 1.8 Monocytes # 0.7 Eosinophils # Metamyelocytes # 0.4 Myelocytes # 1.1 Sodium Level 138 Potassium Level 3.4 L Chloride Level 107 Carbon Dioxide Level 24 Anion Gap 10 Blood Urea Nitrogen 42 H Creatinine 0.80 Glucose Level 102 # Calcium Level 7.0 L Magnesium Level 2.0 Total Bilirubin 0.1 L Direct Bilirubin 0.00 Indirect Bilirubin 0.1 Aspartate Amino Transf (AST/SGOT) 30 Alanine Aminotransferase (ALT/SGPT) 33 Alkaline Phosphatase 44 Total Protein 4.6 #L Albumin 2.1 L Globulin 2.50 Albumin/Globulin Ratio 0.84 Prothrombin Time 15.4 H Prothrombin Time Ratio 1.2 INR International Normalized Ratio 1.21 Activated Partial Thromboplast Time 33.7 Medications Medications Current Medications Flumazenil (Romazicon) 0.2 mg Q1M PRN IV BENZODIAZEPINE OVERDOSE; Start at 10:30 Naloxone HCl (Narcan) 0.4 mg Q3M PRN IV DECREASED REPIRATORY RATE; Start at 10:30 Ondansetron HCl (Zofran Inj) 4 mg Q6H PRN IV NAUSEA AND/OR VOMITING; Start 01/12 at 10:30 Nitroglycerin (Nitroglycerin (Sl Tab) 0.4 Mg) 1 tab Q5M PRN SL CHEST PAIN; Start 06/06/16 at 10:30 Acetaminophen (Tylenol Liquid) 650 mg Q6H PRN PO PAIN LEVEL 1-3 OR FEVER; Start 06/06/16 at 10:30 Morphine Sulfate (morphine) 2 mg Q4H PRN IV PAIN LEVEL 7-10 Last administered on 06/10/16 05:10; Admin Dose 2 MG; Start 06/06/16 at 10:30 Docusate Sodium (Colace) 100 mg Q12H PRN PO CONSTIPATION; Start 06/06/16 at 10: 30 Magnesium Hydroxide (Milk Of Mag) 30 ml DAILY PRN PO CONSTIPATION; Start at 10:30 Bisacodyl (Dulcolax) 5 mg DAILY PRN PO CONSTIPATION; Start 06/06/16 at 10:30 Pantoprazole (Protonix Iv) 40 mg DAILY@06 IV Last administered on 06/11/16 05: 33; Admin Dose 40 MG; Start 06/07/16 at 06:00 Enoxaparin Sodium 40 mg 40 mg DAILY SC Last administered on 06/10/16 09:54; Admin Dose 40 MG; Start 06/07/16 at 09:00 Meropenem (Merrem 500 Mg/ 100 ml (Pmx)) 100 ml @ 200 mls/hr Q12 IVPB Last administered on 06/11/16 09:33; Admin Dose 200 MLS/HR; Start 06/06/16 at 13:00 Collagenase (Santyl) 1 applic DAILY TOP Last administered on 06/09/16 09:09; Admin Dose 1 APPLIC; Start 06/07/16 at 09:00 Collagenase (Santyl) 1 applic PRN PRN TOP WOUND CARE; Start 06/06/16 at 16:00 IV Flush (NS 10 ml) 10 ml PRN PRN IV IV PROTOCOL; Start 06/06/16 at 18:30 Ascorbic Acid (Vitamin C) 500 mg DAILY GTB Last administered on 06/09/16 09:07 ; Admin Dose 500 MG; Start 06/07/16 at 09:00 Aspirin (Aspirin) 325 mg DAILY GTB Last administered on 06/09/16 09:06; Admin Dose 325 MG; Start 06/07/16 at 09:00 Multivitamins (Thera-Plus) 5 ml DAILY GTB Last administered on 06/09/16 09:06 ; Admin Dose 5 ML; Start 06/07/16 at 09:00 Tamsulosin HCl (Flomax) 0.4 mg HS PO Last administered on 06/09/16 21:07; Admin Dose 0.4 MG; Start 06/07/16 at 21:00 Zinc Sulfate (Zinc Sulfate) 220 mg DAILY GTB Last administered on 06/09/16 09: 07; Admin Dose 220 MG; Start 06/07/16 at 09:00 Mupirocin (Bactroban) 1 applic BID TOP Last administered on 06/11/16 09:27; Admin Dose 1 APPLIC; Start 06/07/16 at 21:00 Metoclopramide HCl (Reglan) 10 mg Q6H PRN IV NAUSEA AND/OR VOMITING Last administered on 06/08/16 18:00; Admin Dose 10 MG; Start 06/08/16 at 09:30 Atenolol (Tenormin) 25 mg DAILY PO Last administered on 06/09/16 09:07; Admin Dose 25 MG; Start 06/08/16 at 11:30 Lorazepam 1 mg 1 mg Q6H PRN IV AGITATION/ANXIETY Last administered on 08:27; Admin Dose 1 MG; Start 06/09/16 at 13:30 Propofol 100 ml @ 2.25 mls/hr Q12H IV Last administered on 06/11/16 05:33; Admin Dose 4.5 MLS/HR; Start 06/10/16 at 08:00 Fluconazole 100 ml @ 100 mls/hr Q24H IVPB Last administered on 06/11/16 09:33 ; Admin Dose 100 MLS/HR; Start 06/10/16 at 09:00 Dextrose/Sodium Chloride 1,000 ml @ 50 mls/hr Q20H IV Last administered on 18:13; Admin Dose 50 MLS/HR; Start 06/10/16 at 18:00 Norepinephrine 16 mg/Dextrose 500 ml @ 1.87 mls/hr TITRATE IV ; Start 06/10/16 at 20:30 Vancomycin HCl 1.25 gm/Sodium Chloride 250 ml @ 83.333 mls/ hr Q24H IVPB ; Start 06/12/16 at 05:00 Potassium Chloride (KCl 40 MEQ/250 ML NS) 250 ml @ 62.5 mls/hr ONCE ONCE IVPB ; Start 06/11/16 at 13:30; Stop 06/11/16 at 17:29 HOLLI LINDER MD Jun 11, 2016 13:50
[2016-06-11] MEDS: DEXTROSE 5%-0.45% NACL 1,000 ML IV SCH ×2 (14:00→22:53)
[2016-06-11] MEDS ORDERED: LIDOCAINE 1% (MDV) 20 ML INJ ONE (15:26)
--- NOTE | 2016-06-11 17:43 | RADRPT ---
PROCEDURE: CT guided abdominal abscess drainage CLINICAL INDICATION: Elevated white blood cell count, abdominal pain, intra-abdominal fluid collect ion with air-fluid levels seen on recent CT scan.. TECHNIQUE: Telephone consent was obtained. The risks, benefits, and alternatives of the procedure were explained to the patient's son. The patient's son agreed to the procedure. A time-out was per formed. A preliminary steel rigger CT scan of the abdomen was performed. Markers were placed on the skin for localization. The overlying skin of the left lower quadrant of the abdomen was prepped and drap ed in the usual sterile fashion. 10 cc of 1% lidocaine was injected locally for pain control. 10 c m long 18-gauge Chiba needle was advanced into the fluid collection using CT guidance. A 70 cm long 0.035 inch Amplatz superstiff guide wire was placed through the needle and into the fluid collectio n., the tract was dilated, and an 8.5 Hebrew locking pigtail catheter was placed into the fluid jenn ection without difficulty. Liquid stool was aspirated without difficulty and sent to the laboratory for further analysis. 3 cc of Isovue 350 contrast liver with 17 cc sterile saline was injected into the cavity at the end of the procedure. The patient tolerated procedure well. No complications occur red. Postprocedural CT scan revealed no complications. No significant hemorrhage or other abnormal ity was seen. Exam CTDI equals 169 mGy, and exam and DLP equals 5527 mGy-cm. COMPARISON: None available FINDINGS: Successful percutaneous placement of 8.5 Hebrew pigtail catheter to left lower quadrant fluid collec tion with air-fluid level. Preprocedural diagnosis: Intra-abdominal abscess. Postprocedural diagnosis: Bowel perforation with monica stool in the collection previously identifie d as abscess. Surgeon: Linus COELLO. Condition: Stable Estimated blood loss: 0 cc. Specimens removed: 30 cc of liquid stool. Complications: None 20 cc dilute contrast was injected into the cavity at the end of the procedure to delineate the dina ins of the cavity. Contrast is seen within the cavity. No extravasation into other parts of the ab domen is identified. None of the injected contrast is seen entering into adjacent bowel loops. No fistula tract is identified. IMPRESSION: 1. Successful CT guided abdominal fluid collection drainage and pigtail catheter placement to the l eft lower quadrant. The fluid drained was monica stool, suggesting bowel perforation. 2. No immediate complications. Findings discussed with Dr. Kelsey 06/11/2016 at 1735 hours. RPTAT: QQ .Neptali Barriga MD, Date Time Electronically viewed and signed by .Neptali Barriga MD, on 06/11/2016 17:42 .M/
[2016-06-11] MEDS: COLLAGENASE 30 GM TUBE TOP SCH (18:00)
--- NOTE | 2016-06-11 19:53 | PN ---
DATE: 06/11/2016 INFECTIOUS DISEASE PROGRESS NOTE SUBJECTIVE: No acute events overnight. The patient is lying comfortably in bed. He is afebrile. WBC today is 35.8, H and H 7.2 and 23, platelets 221, neutrophils 85, bands 4, lymphs 5, monos 2. B UN 42, creatinine 0.80. MICROBIOLOGY: Repeat blood culture on 06/07 negative. DIAGNOSTICS: CT of the abdomen and pelvis yesterday revealed questionable abscess versus localized perforation, diverticula in sigmoid and descending colon, small amount of ascites, small amount of a ir in gastric wall, which could be secondary to gastrostomy, no free pneumoperitoneum seen, cholelit hiasis. INDWELLINGS: Trach, PEG, Alfonso, PICC line. ANTIMICROBIALS: The patient remains on IV vancomycin, IV fluconazole, meropenem. He is also gettin g topical Bactroban to nares. PHYSICAL EXAMINATION: GENERAL: This is a fragile, chronically ill-appearing, elderly man who is lying comfortably in bed. HEENT: Head atraumatic, normocephalic. Sclerae anicteric. Buccal mucosa dry. NECK: Supple. Tracheostomy present. CHEST: Rise symmetrical. Breath sounds diminished to bases. HEART: S1, S2. ABDOMEN: Distended, soft. Bowel tones hypoactive. EXTREMITIES: Bilateral trace edema. ASSESSMENT: 1. Sepsis. 2. Pelvic abscess, questionable localized perforation. 3. Methicillin-resistant Staphylococcus aureus bacteremia on admission. 4. Urinary tract infection. 5. Methicillin-resistant Staphylococcus aureus nares colonization. 6. Healthcare-associated pneumonia, possibly aspiration. 7. Coronary artery disease and history of permanent pacemaker. 8. Ileus. PLAN: Patient remains unchanged, covered with appropriate antimicrobials. He is being followed by multiple consultants pending surgical evaluation, pending CT-guided abscess drainage. Dictated By: JOSE G CUNNINGHAM SUPERVISOR [employer]ILTING for RASHIDA CAMPBELL MD NI/NTS Conf#: [id number] DID#: [id number] CC: HOLLI LINDER MD;*EndCC*
[2016-06-11] MEDS: TAMSULOSIN (SR) 0.4 MG CAP PO SCH (21:00)
--- NOTE | 2016-06-11 21:54 | PN ---
Date/Time of Note Date/Time of Note DATE: 06/11/16 TIME: 21:45 Assessment/Plan Lines/Catheters IV Catheter Type (from [facility]): PICC Line Alfonso in Place (from [facility]): Yes Assessment/Plan Chief Complaint/Hosp Course 1. Contained perforated viscous s/p IR drain -drain -abx -supportive 2. Pneumonia -pulmonary toilette -abx 3. Sepsis, significant leukocytosis -abx -as above 4. Sacral decubitus ulcer -off load -nutrition optimization -vit c -local care 5. Chronic AFib -rate control -optimize electrolytes -tx infections 6. Anemia -monitor 7. Hypoalbuminemia -eventual nutritional optimization 8. CHF -judicious fluid management -cardiac optimization Thank you Dictation #: [id number] Problems: Subjective 24 Hr Interval Summary s/p IR drain today (06/11). CT noted. No f/c. No cough. No sz. No rashes. No bloating. No vomiting. No bleeding. Leukocytosis slowly improving. Exam/Review of Systems Vital Signs Vitals Vital Signs Date Time Temp Pulse Resp B/P Pulse Ox O2 Delivery O2 Flow Rate FiO2 06/12/16 17:14 60 20 100 30 06/12/16 16:00 98.4 116/54 06/12/16 06:00 Mechanical Ventilator Intake and Output 06/11/16 06/11/16 06/12/16 15:00 23:00 07:00 Intake Total 786.0 ml 531.5 ml 277.0 ml Output Total 1075 ml 875 ml 655 ml Balance -289.0 ml -343.5 ml -378.0 ml Exam Constitutional: No alert, No distress, No oriented Psych: confusion, No anxiety Head: atraumatic, normocephalic Eyes: PERRL, nl conjunctiva, No icteric ENMT: mucosa pink and moist, nl external ears & nose, nl lips & teeth Neck: jvd (min), non-tender Respiratory: No congested cough, No labored breathing Cardiovascular: No edema, No regular rate and rhythm Gastrointestinal: soft, No distended, No firm, No rebound or guarding Musculoskeletal: No joint tenderness, No nl gait and stance Extremities: No calf tenderness, No cyanosis Neurological: No nl mental status, No nl speech, No nl strength Skin: nl turgor, rash or lesions (Sacral and LE decubitus ulcerations), No diaphoresis Lymph: nl lymph nodes Results Free Text/Dictation CT: In the left anterior mid pelvis there is an approximate 6.3 x 3.2 x 4.7 cm air and fluid collection not definitely bowel suspicious for an abscess/localized perforation. Diverticula in sigmoid and descending colon. Small amount of ascites. Gastrostomy tube in stomach. Small amount of air in gastric wall which could be secondary to the gastrostomy. No orally administered contrast is seen outside of the intestinal tract. No free pneumoperitoneum is seen. 1.6 cm rounded relatively low density structure in the upper left kidney which could represent a hyperattenuating cyst or solid mass. Renal ultrasound is recommended. Cholelithiasis. Atherosclerosis. Critical result discussed with Shoaib Benites at 01:18 a.m. on 06/11/2016. Result Diagram: 06/12/16 0330 06/12/16 0330 DAREK AHMADI MD Jun 11, 2016 21:54
[2016-06-12] VITALS (98 sets, daily range): BP systolic 101–149; BP diastolic 44–75; PULSE 60–105; RESP 18–34
[2016-06-12] MEDS: ALBUTEROL 18 GM INHALER INH SCH ×6 (01:11→21:23)
[2016-06-12] MEDS: IPRATROPIUM (HFA) 12.9 GM INHALER INH SCH ×6 (01:12→21:23)
[2016-06-12 04:30] LABS: ADD SCAN DIFF NO
[2016-06-12 04:35] LABS: ABNORMAL IP MESSAGE 1; BASOPHIL # 0.1 10^3/ul (0.0-0.1); BASOPHILS % 0.4 % (0.0-2.0); EOSINOPHILS % 0.1 % (0.0-7.0); HEMATOCRIT 27.8 % (42.0-52.0); HEMOGLOBIN 8.8 g/dl (14.0-18.0); LYMPHOCYTES # 1.5 10^3/ul (0.8-2.9); LYMPHOCYTES % 5.5 % (15.0-51.0); MEAN CORPUSCULAR HEMOGLOBIN 29.3 pg (29.0-33.0); MEAN CORPUSCULAR HGB CONC 31.7 g/dl (32.0-37.0); MEAN CORPUSCULAR VOLUME 92.7 fl (82.0-101.0); MONOCYTE # 0.4 10^3/ul (0.3-0.9); MONOCYTES % 1.3 % (0.0-11.0); NEUTROPHILS % 81.8 % (39.0-77.0); NUCLEATED RED BLOOD CELLS # 0.1 10^3/ul (0.0-0.0); NUCLEATED RED BLOOD CELLS% 0.2 /100WBC (0.0-0.0); PLATELET COUNT 192 10^3/UL (140-415); RED CELL DISTRIBUTION WIDTH 14.9 % (11.5-14.5); WHITE BLOOD COUNT 28.1 10^3/ul (4.8-10.8)
[2016-06-12 04:53] LABS: ALBUMIN/GLOBULIN RATIO 0.76; BILIRUBIN,INDIRECT 0.1 mg/dl (0-1.1); BILIRUBIN,TOTAL 0.1 mg/dl (0.2-1.3); CALCIUM 6.8 mg/dl (8.4-10.2); CREATININE 0.67 mg/dl (0.61-1.24); POTASSIUM 3.9 mmol/L (3.5-5.1); TOTAL PROTEIN 4.6 g/dl (6.1-8.1)
[2016-06-12] MEDS: PANTOPRAZOLE 40 MG INJ IV SCH (05:30)
[2016-06-12] MEDS: VANCOMYCIN 1.25 GM in SOD CHLORIDE 0.9% 250 ML IVPB SCH (05:31)
[2016-06-12] MEDS: PROPOFOL 100 ML IV SCH ×2 (08:00→20:00)
[2016-06-12] MEDS: MULTIVITAMINS 5 ML CUP GTB SCH (08:33)
[2016-06-12] MEDS: ASPIRIN 325 MG TAB GTB SCH (08:33)
[2016-06-12] MEDS: ZINC SULFATE 220 MG CAP GTB SCH (08:34)
[2016-06-12] MEDS: ASCORBIC ACID 500 MG TAB GTB SCH (08:34)
[2016-06-12] MEDS: ATENOLOL 25 MG TAB PO SCH (09:00)
--- NOTE | 2016-06-12 10:03 | CONS ---
Date/Time of Note Date/Time of Note DATE: 06/12/16 TIME: 10:01 Consult Date/Type/Reason Admit Date/Time Jun 06, 2016 at 08:08 Initial Consult Date 06/07/16 Type of Consultation: Pulmonary/critical care Ordering Provider: HOLLI LINDER MD Subjective Continues mechanical ventilation Remains somnolent Moderate oral secretions No vasopressors at present Status post bowel perforation with drainage Objective Vital Signs Date Time Temp Pulse Resp B/P Pulse Ox O2 Delivery O2 Flow Rate FiO2 06/12/16 08:49 60 06/12/16 08:30 31 131/75 100 06/12/16 08:00 98.9 06/12/16 07:34 30 06/12/16 06:00 Mechanical Ventilator Intake and Output 06/11/16 06/11/16 06/12/16 15:00 23:00 07:00 Intake Total 786.0 ml 531.5 ml 277.0 ml Output Total 1075 ml 875 ml 655 ml Balance -289.0 ml -343.5 ml -378.0 ml Exam PHYSICAL EXAMINATION GENERAL: Elderly gentleman, on mechanical ventilation via tracheostomy VITAL SIGNS: see below. HEENT: Pupils equal, round, and reactive to light. Tracheostomy site clean and intact. CARDIAC: S1, S2, tachycardia. CHEST: Diminished air entry bilaterally. Rales bilaterally ABDOMEN: Mildly distended. Decreased bowel sounds no guarding or rebound EXTREMITIES: No cyanosis, clubbing edema +1 NEUROLOGIC: Unable to assess Results/Medications Result Diagram: 06/12/16 0330 06/12/16 0330 Results 24 hrs Laboratory Tests Test 06/12/16 03:30 White Blood Count 28.1 #H Red Blood Count 3.00 #L Hemoglobin 8.8 #L Hematocrit 27.8 #L Mean Corpuscular Volume 92.7 Mean Corpuscular Hemoglobin 29.3 Mean Corpuscular Hemoglobin Concent 31.7 L Red Cell Distribution Width 14.9 H Platelet Count 192 Mean Platelet Volume 11.0 H Neutrophils % 81.8 H Lymphocytes % 5.5 L Monocytes % 1.3 Eosinophils % 0.1 Basophils % 0.4 Nucleated Red Blood Cells % 0.2 H Neutrophils # 23.0 H Lymphocytes # 1.5 Monocytes # 0.4 Eosinophils # 0.0 Basophils # 0.1 Nucleated Red Blood Cells # 0.1 H Sodium Level 137 Potassium Level 3.9 Chloride Level 111 H Carbon Dioxide Level 25 Anion Gap 5 L Blood Urea Nitrogen 31 #H Creatinine 0.67 Glucose Level 70 Calcium Level 6.8 L Total Bilirubin 0.1 L Direct Bilirubin 0.00 Indirect Bilirubin 0.1 Aspartate Amino Transf (AST/SGOT) 31 Alanine Aminotransferase (ALT/SGPT) 44 Alkaline Phosphatase 38 L Total Protein 4.6 L Albumin 2.0 L Globulin 2.60 Albumin/Globulin Ratio 0.76 Medications Current Medications Flumazenil (Romazicon) 0.2 mg Q1M PRN IV BENZODIAZEPINE OVERDOSE; Start at 10:30 Naloxone HCl (Narcan) 0.4 mg Q3M PRN IV DECREASED REPIRATORY RATE; Start at 10:30 Ondansetron HCl (Zofran Inj) 4 mg Q6H PRN IV NAUSEA AND/OR VOMITING; Start 01/12 at 10:30 Nitroglycerin (Nitroglycerin (Sl Tab) 0.4 Mg) 1 tab Q5M PRN SL CHEST PAIN; Start 06/06/16 at 10:30 Acetaminophen (Tylenol Liquid) 650 mg Q6H PRN PO PAIN LEVEL 1-3 OR FEVER; Start 06/06/16 at 10:30 Morphine Sulfate (morphine) 2 mg Q4H PRN IV PAIN LEVEL 7-10 Last administered on 06/10/16 05:10; Admin Dose 2 MG; Start 06/06/16 at 10:30 Docusate Sodium (Colace) 100 mg Q12H PRN PO CONSTIPATION; Start 06/06/16 at 10: 30 Magnesium Hydroxide (Milk Of Mag) 30 ml DAILY PRN PO CONSTIPATION; Start at 10:30 Bisacodyl (Dulcolax) 5 mg DAILY PRN PO CONSTIPATION; Start 06/06/16 at 10:30 Pantoprazole (Protonix Iv) 40 mg DAILY@06 IV Last administered on 06/12/16 05: 30; Admin Dose 40 MG; Start 06/07/16 at 06:00 Enoxaparin Sodium 40 mg 40 mg DAILY SC Last administered on 06/10/16 09:54; Admin Dose 40 MG; Start 06/07/16 at 09:00 Meropenem (Merrem 500 Mg/ 100 ml (Pmx)) 100 ml @ 200 mls/hr Q12 IVPB Last administered on 06/11/16 22:21; Admin Dose 200 MLS/HR; Start 06/06/16 at 13:00 Collagenase (Santyl) 1 applic DAILY TOP Last administered on 06/11/16 18:00; Admin Dose 1 APPLIC; Start 06/07/16 at 09:00 Collagenase (Santyl) 1 applic PRN PRN TOP WOUND CARE; Start 06/06/16 at 16:00 IV Flush (NS 10 ml) 10 ml PRN PRN IV IV PROTOCOL; Start 06/06/16 at 18:30 Ascorbic Acid (Vitamin C) 500 mg DAILY GTB Last administered on 06/09/16 09:07 ; Admin Dose 500 MG; Start 06/07/16 at 09:00 Aspirin (Aspirin) 325 mg DAILY GTB Last administered on 06/09/16 09:06; Admin Dose 325 MG; Start 06/07/16 at 09:00 Multivitamins (Thera-Plus) 5 ml DAILY GTB Last administered on 06/09/16 09:06 ; Admin Dose 5 ML; Start 06/07/16 at 09:00 Tamsulosin HCl (Flomax) 0.4 mg HS PO Last administered on 06/09/16 21:07; Admin Dose 0.4 MG; Start 06/07/16 at 21:00 Zinc Sulfate (Zinc Sulfate) 220 mg DAILY GTB Last administered on 06/09/16 09: 07; Admin Dose 220 MG; Start 06/07/16 at 09:00 Mupirocin (Bactroban) 1 applic BID TOP Last administered on 06/11/16 22:21; Admin Dose 1 APPLIC; Start 06/07/16 at 21:00 Metoclopramide HCl (Reglan) 10 mg Q6H PRN IV NAUSEA AND/OR VOMITING Last administered on 06/08/16 18:00; Admin Dose 10 MG; Start 06/08/16 at 09:30 Atenolol (Tenormin) 25 mg DAILY PO Last administered on 06/09/16 09:07; Admin Dose 25 MG; Start 06/08/16 at 11:30 Lorazepam 1 mg 1 mg Q6H PRN IV AGITATION/ANXIETY Last administered on 08:27; Admin Dose 1 MG; Start 06/09/16 at 13:30 Propofol 100 ml @ 2.25 mls/hr Q12H IV Last administered on 06/11/16 05:33; Admin Dose 4.5 MLS/HR; Start 06/10/16 at 08:00 Fluconazole 100 ml @ 100 mls/hr Q24H IVPB Last administered on 06/11/16 09:33 ; Admin Dose 100 MLS/HR; Start 06/10/16 at 09:00 Dextrose/Sodium Chloride 1,000 ml @ 50 mls/hr Q20H IV Last administered on 22:53; Admin Dose 50 MLS/HR; Start 06/10/16 at 18:00 Norepinephrine 16 mg/Dextrose 500 ml @ 1.87 mls/hr TITRATE IV ; Start 06/10/16 at 20:30 Vancomycin HCl/ Sodium Chloride (Vancocin/NS) 250 ml @ 83.333 mls/ hr Q24H IVPB Last administered on 06/12/16 05:31; Admin Dose 83.333 MLS/HR; Start at 05:00 Assessment/Plan Chief Complaint/Hosp Course Assessment 1. Vent dependent respiratory failure with evidence of healthcare associated pneumonia 2. Status post bowel perforation with drainage 3. Persistent leukocytosis sepsis 4. Chronic atrial fibrillation 5. Decubitus ulcers 6. Dysphagia with G-tube 7. Anemia likely of chronic disease Plan 1. Continue mechanical ventilation 2. Continue broad-spectrum antibiotics 3. Surgical recommendations 4. Palliative care consult 5. DVT and GI prophylaxis Disposition Consider transfer to telemetry 1. Patient admitted for pneumonia and sepsis status post tracheostomy and G- tube placement. 2. Possibly bowel perforation. 3. Chronic atrial fib relation. 4. Sacral decubitus ulcer possibly a source of infection. 5. Advanced dementia. 6. Anemia. Problems: KAVON TROY MD, [facility] Jun 12, 2016 10:03
[2016-06-12] MEDS: FLUCONAZOLE 200 MG/NS (PMX) 100 ML IVPB SCH (11:25)
[2016-06-12] MEDS: ENOXAPARIN 40 MG/0.4 ML SYG SC SCH (11:26)
[2016-06-12] MEDS: MUPIROCIN 2% 22 GM OINT TOP SCH ×2 (11:26→21:08)
--- NOTE | 2016-06-12 13:00 | CONS ---
Date/Time of Note Date/Time of Note DATE: 06/12/16 TIME: 12:48 Assessment/Plan Assessment/Plan Chief Complaint/Hosp Course IMp: 1.CHF-systolic acute on chonic-reasonable volume status at this time 2.Resp failure s/p trach on vent 3.Cardiomyopathy-LVEF 25-30% 4.HTN-with episodes of borderline Hotn 5.PPM-s/p interogation with proper function-episodes of SVT and shot episode VT 06/09/16/good battery life 6.Leukocytosis 7.Tachycardia-PAF 8.Perforated viscous s/p IR drain placement Recc: -Tele -Follow BP/Volume status closely -Continue abx's and f/u cx data -Continue atenolol as tolerated/possible only -Continue asa/low dose lovenox -Continue abx's/f/u cx data -Follow IR drainage output Problems: Consultation Date/Type/Reason Admit Date/Time Jun 06, 2016 at 08:08 Initial Consult Date 06/07/16 Type of Consultation: Cardiology Reason for Consultation AFL/cardiomyopathy Referring Provider: HOLLI LINDER MD Exam/Review of Systems Vital Signs Vitals Vital Signs Date Time Temp Pulse Resp B/P Pulse Ox O2 Delivery O2 Flow Rate FiO2 06/12/16 12:28 61 23 100 30 06/12/16 11:30 130/63 06/12/16 08:00 98.9 06/12/16 06:00 Mechanical Ventilator Intake and Output 06/11/16 06/11/16 06/12/16 15:00 23:00 07:00 Intake Total 786.0 ml 531.5 ml 277.0 ml Output Total 1075 ml 875 ml 655 ml Balance -289.0 ml -343.5 ml -378.0 ml Exam Review of Systems: CONSTITUTIONAL: No fevers, chills. PULMONARY: trached CARDIOVASCULAR: No obvious chest pain/palpitations GASTROINTESTINAL: No nausea/vomiting. GENITOURINARY: No hematuria/dysuria. MUSCULOSKELETAL: No obvious myagias/arthalgias. PSYCHIATRIC: No documented depression. NEUROLOGIC: encephalopathic Constitutional: other (sleeping) Head: normocephalic Neck: other (trach in place) Respiratory: other (upper airway rhoncherous sounds) Cardiovascular: regular rate and rhythm Gastrointestinal: non-tender, soft Musculoskeletal: muscle weakness (generalized) Extremities: edema (trace/B) Neurological: other (encephalopathy) Results Result Diagram: 06/12/16 0330 06/12/16 0330 Results 24 hrs Laboratory Tests Test 06/12/16 03:30 White Blood Count 28.1 #H Red Blood Count 3.00 #L Hemoglobin 8.8 #L Hematocrit 27.8 #L Mean Corpuscular Volume 92.7 Mean Corpuscular Hemoglobin 29.3 Mean Corpuscular Hemoglobin Concent 31.7 L Red Cell Distribution Width 14.9 H Platelet Count 192 Mean Platelet Volume 11.0 H Neutrophils % 81.8 H Lymphocytes % 5.5 L Monocytes % 1.3 Eosinophils % 0.1 Basophils % 0.4 Nucleated Red Blood Cells % 0.2 H Neutrophils # 23.0 H Lymphocytes # 1.5 Monocytes # 0.4 Eosinophils # 0.0 Basophils # 0.1 Nucleated Red Blood Cells # 0.1 H Sodium Level 137 Potassium Level 3.9 Chloride Level 111 H Carbon Dioxide Level 25 Anion Gap 5 L Blood Urea Nitrogen 31 #H Creatinine 0.67 Glucose Level 70 Calcium Level 6.8 L Total Bilirubin 0.1 L Direct Bilirubin 0.00 Indirect Bilirubin 0.1 Aspartate Amino Transf (AST/SGOT) 31 Alanine Aminotransferase (ALT/SGPT) 44 Alkaline Phosphatase 38 L Total Protein 4.6 L Albumin 2.0 L Globulin 2.60 Albumin/Globulin Ratio 0.76 Medications Medications Current Medications Flumazenil (Romazicon) 0.2 mg Q1M PRN IV BENZODIAZEPINE OVERDOSE; Start at 10:30 Naloxone HCl (Narcan) 0.4 mg Q3M PRN IV DECREASED REPIRATORY RATE; Start at 10:30 Ondansetron HCl (Zofran Inj) 4 mg Q6H PRN IV NAUSEA AND/OR VOMITING; Start 01/12 at 10:30 Nitroglycerin (Nitroglycerin (Sl Tab) 0.4 Mg) 1 tab Q5M PRN SL CHEST PAIN; Start 06/06/16 at 10:30 Acetaminophen (Tylenol Liquid) 650 mg Q6H PRN PO PAIN LEVEL 1-3 OR FEVER; Start 06/06/16 at 10:30 Morphine Sulfate (morphine) 2 mg Q4H PRN IV PAIN LEVEL 7-10 Last administered on 06/10/16t 05:10; Admin Dose 2 MG; Start 06/06/16 at 10:30 Docusate Sodium (Colace) 100 mg Q12H PRN PO CONSTIPATION; Start 06/06/16 at 10: 30 Magnesium Hydroxide (Milk Of Mag) 30 ml DAILY PRN PO CONSTIPATION; Start at 10:30 Bisacodyl (Dulcolax) 5 mg DAILY PRN PO CONSTIPATION; Start 06/06/16 at 10:30 Pantoprazole (Protonix Iv) 40 mg DAILY@06 IV Last administered on 06/12/16 05: 30; Admin Dose 40 MG; Start 06/07/16 at 06:00 Enoxaparin Sodium 40 mg 40 mg DAILY SC Last administered on 06/12/16 11:26; Admin Dose 40 MG; Start 06/07/16 at 09:00 Meropenem (Merrem 500 Mg/ 100 ml (Pmx)) 100 ml @ 200 mls/hr Q12 IVPB Last administered on 06/11/16 22:21; Admin Dose 200 MLS/HR; Start 06/06/16 at 13:00 Collagenase (Santyl) 1 applic DAILY TOP Last administered on 06/11/16 18:00; Admin Dose 1 APPLIC; Start 06/07/16 at 09:00 Collagenase (Santyl) 1 applic PRN PRN TOP WOUND CARE; Start 06/06/16 at 16:00 IV Flush (NS 10 ml) 10 ml PRN PRN IV IV PROTOCOL; Start 06/06/16 at 18:30 Ascorbic Acid (Vitamin C) 500 mg DAILY GTB Last administered on 06/09/16 09:07 ; Admin Dose 500 MG; Start 06/07/16 at 09:00 Aspirin (Aspirin) 325 mg DAILY GTB Last administered on 06/09/16 09:06; Admin Dose 325 MG; Start 06/07/16 at 09:00 Multivitamins (Thera-Plus) 5 ml DAILY GTB Last administered on 06/09/16 09:06 ; Admin Dose 5 ML; Start 06/07/16 at 09:00 Tamsulosin HCl (Flomax) 0.4 mg HS PO Last administered on 06/09/16 21:07; Admin Dose 0.4 MG; Start 06/07/16 at 21:00 Zinc Sulfate (Zinc Sulfate) 220 mg DAILY GTB Last administered on 06/09/16 09: 07; Admin Dose 220 MG; Start 06/07/16 at 09:00 Mupirocin (Bactroban) 1 applic BID TOP Last administered on 06/12/16 11:26; Admin Dose 1 APPLIC; Start 06/07/16 at 21:00 Metoclopramide HCl (Reglan) 10 mg Q6H PRN IV NAUSEA AND/OR VOMITING Last administered on 06/08/16 18:00; Admin Dose 10 MG; Start 06/08/16 at 09:30 Atenolol (Tenormin) 25 mg DAILY PO Last administered on 06/09/16 09:07; Admin Dose 25 MG; Start 06/08/16 at 11:30 Lorazepam 1 mg 1 mg Q6H PRN IV AGITATION/ANXIETY Last administered on 08:27; Admin Dose 1 MG; Start 06/09/16 at 13:30 Propofol 100 ml @ 2.25 mls/hr Q12H IV Last administered on 06/11/16 05:33; Admin Dose 4.5 MLS/HR; Start 06/10/16 at 08:00 Fluconazole 100 ml @ 100 mls/hr Q24H IVPB Last administered on 06/12/16 11:25 ; Admin Dose 100 MLS/HR; Start 06/10/16 at 09:00 Dextrose/Sodium Chloride 1,000 ml @ 50 mls/hr Q20H IV Last administered on 22:53; Admin Dose 50 MLS/HR; Start 06/10/16 at 18:00 Norepinephrine 16 mg/Dextrose 500 ml @ 1.87 mls/hr TITRATE IV ; Start 06/10/16 at 20:30 Vancomycin HCl/ Sodium Chloride (Vancocin/NS) 250 ml @ 83.333 mls/ hr Q24H IVPB Last administered on 06/12/16 05:31; Admin Dose 83.333 MLS/HR; Start at 05:00 Miscellaneous Information (*Rx Drug Level Order Reminder*) 1 ONCE ONCE XX ; Start 06/13/16 at 04:00; Stop 06/13/16 at 04:01 JAYA GORE Jun 12, 2016 12:58
[2016-06-12] MEDS: morphine 2 MG INJ IV PRN (13:29)
[2016-06-12] MEDS: MEROPENEM 500 MG/100 ML (PMX) 100 ML IVPB SCH ×2 (13:40→21:06)
--- NOTE | 2016-06-12 14:50 | PN ---
DATE: 06/12/2016 SUBJECTIVE: No acute changes. The patient is lying comfortably in bed. No fevers. LABORATORY: WBC today 28.1, platelets 192, neutrophils 81.8, no bands. BUN 31, creatinine 0.67. MICROBIOLOGY: Intra-abdominal fluid cultures preliminary growing gram-negative rods. Blood culture s since 06/07/2016 negative. INDWELLINGS: Trach, PEG, Alfonso, PICC line and left-sided intra-abdominal catheter. ANTIMICROBIALS: 1. Vancomycin. 2. Fluconazole. 3. Meropenem. 4. Topical Bactroban to nares. PHYSICAL EXAMINATION: GENERAL: This is a chronically ill-appearing, elderly man who is in no distress. HEENT: Head atraumatic, normocephalic. Sclerae anicteric. Buccal mucosa dry. NECK: Supple. Tracheostomy present. CHEST: Rise symmetrical. Breath sounds diminished at the bases. HEART: S1, S2. ABDOMEN: Obese, soft, bowel tones present. EXTREMITIES: Bilateral trace edema. ASSESSMENT: 1. Sepsis. 2. Healthcare-associated pneumonia. 3. Pelvic abscess with questionable localized perforation, status post CT-guided drainage aspiratio n with cultures growing gram-negative rods, preliminary. 4. Methicillin-resistant Staphylococcus aureus bacteremia on admission with repeat blood cultures n egative. 5. Urinary tract infection. 6. Methicillin-resistant Staphylococcus aureus nares colonization. 7. History of permanent pacemaker placement. PLAN: The patient remains stable. White blood cell count tracing down. Continue present care, ant ibiotics. Follow recommendations of consultants, await for final cultures. Dictated By: JOSE G CUNNINGHAM [employer] for RASHIDA HUSSEIN/TRACY Conf#: [id number] DID#: [id number]
[2016-06-12] MEDS: ACCU-CHEK XX SCH ×2 (17:00→21:23)
--- NOTE | 2016-06-12 17:46 | PN ---
Date/Time of Note Date/Time of Note DATE: 06/12/16 TIME: 17:44 Assessment/Plan VTE Prophylaxis VTE Prophylaxis Intervention: other Lines/Catheters IV Catheter Type (from Nrs): PICC Line Central line still needed: Yes Urinary Cath still in place: Yes Reason Cath still needed: other (indicate) Assessment/Plan Chief Complaint/Hosp Course IMPRESSION: 1. Septic shock.better 2. Pneumonia. aspiration 3. Leukocytosis. 4. Hematuria. better 5. Lactic acidosis. 6. Respiratory failure. 7. Gastrostomy tube placement. 8. Anemia. 9. Atrial fibrillation. 10. History of congestive heart failure with decreased ejection fraction. 11. vdrf 12. History of paroxysmal atrial fibrillation. 13. The patient now has decubitus. 14 uti 15 In the left anterior mid pelvis there is an approximate 6.3 x 3.2 x 4.7 cm air and fluid collection not definitely bowel suspicious for an abscess/ localized perforation. Diverticula in sigmoid and descending colon. Small amount of ascites. Gastrostomy tube in stomach. Small amount of air in gastric wall which could be secondary to the gastrostomy. No orally administered contrast is seen outside of the intestinal tract. No free pneumoperitoneum is seen. 1.6 cm rounded relatively low density structure in the upper left kidney which could represent a hyperattenuating cyst or solid mass. plan antibiotic per id weaning per pulmonary and cardio surgery consult npo tpn Problems: Subjective 24 Hr Interval Summary Subjective hx not possible: other (on vent) Cardiovascular: no complaints Gastrointestinal: no complaints Genitourinary: no complaints Exam/Review of Systems Vital Signs Vitals Vital Signs Date Time Temp Pulse Resp B/P Pulse Ox O2 Delivery O2 Flow Rate FiO2 06/12/16 17:14 60 20 100 30 06/12/16 16:00 98.4 116/54 06/12/16 06:00 Mechanical Ventilator Intake and Output 06/11/16 06/11/16 06/12/16 15:00 23:00 07:00 Intake Total 786.0 ml 531.5 ml 277.0 ml Output Total 1075 ml 875 ml 655 ml Balance -289.0 ml -343.5 ml -378.0 ml Exam Neck: supple Respiratory: diminished breath sounds Cardiovascular: regular rate and rhythm Gastrointestinal: bowel sounds (+), soft Extremities: edema (tr) Results Result Diagram: 06/12/16 0330 06/12/16 0330 Results 24 hrs Laboratory Tests Test 06/12/16 03:30 White Blood Count 28.1 #H Red Blood Count 3.00 #L Hemoglobin 8.8 #L Hematocrit 27.8 #L Mean Corpuscular Volume 92.7 Mean Corpuscular Hemoglobin 29.3 Mean Corpuscular Hemoglobin Concent 31.7 L Red Cell Distribution Width 14.9 H Platelet Count 192 Mean Platelet Volume 11.0 H Neutrophils % 81.8 H Lymphocytes % 5.5 L Monocytes % 1.3 Eosinophils % 0.1 Basophils % 0.4 Nucleated Red Blood Cells % 0.2 H Neutrophils # 23.0 H Lymphocytes # 1.5 Monocytes # 0.4 Eosinophils # 0.0 Basophils # 0.1 Nucleated Red Blood Cells # 0.1 H Sodium Level 137 Potassium Level 3.9 Chloride Level 111 H Carbon Dioxide Level 25 Anion Gap 5 L Blood Urea Nitrogen 31 #H Creatinine 0.67 Glucose Level 70 Calcium Level 6.8 L Total Bilirubin 0.1 L Direct Bilirubin 0.00 Indirect Bilirubin 0.1 Aspartate Amino Transf (AST/SGOT) 31 Alanine Aminotransferase (ALT/SGPT) 44 Alkaline Phosphatase 38 L Total Protein 4.6 L Albumin 2.0 L Globulin 2.60 Albumin/Globulin Ratio 0.76 Medications Medications Current Medications Flumazenil (Romazicon) 0.2 mg Q1M PRN IV BENZODIAZEPINE OVERDOSE; Start at 10:30 Naloxone HCl (Narcan) 0.4 mg Q3M PRN IV DECREASED REPIRATORY RATE; Start at 10:30 Ondansetron HCl (Zofran Inj) 4 mg Q6H PRN IV NAUSEA AND/OR VOMITING; Start 01/12 at 10:30 Nitroglycerin (Nitroglycerin (Sl Tab) 0.4 Mg) 1 tab Q5M PRN SL CHEST PAIN; Start 06/06/16 at 10:30 Acetaminophen (Tylenol Liquid) 650 mg Q6H PRN PO PAIN LEVEL 1-3 OR FEVER; Start 06/06/16 at 10:30 Morphine Sulfate (morphine) 2 mg Q4H PRN IV PAIN LEVEL 7-10 Last administered on 06/12/16t 13:29; Admin Dose 2 MG; Start 06/06/16 at 10:30 Docusate Sodium (Colace) 100 mg Q12H PRN PO CONSTIPATION; Start 06/06/16 at 10: 30 Magnesium Hydroxide (Milk Of Mag) 30 ml DAILY PRN PO CONSTIPATION; Start at 10:30 Bisacodyl (Dulcolax) 5 mg DAILY PRN PO CONSTIPATION; Start 06/06/16 at 10:30 Pantoprazole (Protonix Iv) 40 mg DAILY@06 IV Last administered on 06/12/16 05: 30; Admin Dose 40 MG; Start 06/07/16 at 06:00 Enoxaparin Sodium 40 mg 40 mg DAILY SC Last administered on 06/12/16 11:26; Admin Dose 40 MG; Start 06/07/16 at 09:00 Meropenem (Merrem 500 Mg/ 100 ml (Pmx)) 100 ml @ 200 mls/hr Q12 IVPB Last administered on 06/12/16 13:40; Admin Dose 200 MLS/HR; Start 06/06/16 at 13:00 Collagenase (Santyl) 1 applic DAILY TOP Last administered on 06/11/16 18:00; Admin Dose 1 APPLIC; Start 06/07/16 at 09:00 Collagenase (Santyl) 1 applic PRN PRN TOP WOUND CARE; Start 06/06/16 at 16:00 IV Flush (NS 10 ml) 10 ml PRN PRN IV IV PROTOCOL; Start 06/06/16 at 18:30 Ascorbic Acid (Vitamin C) 500 mg DAILY GTB Last administered on 06/09/16 09:07 ; Admin Dose 500 MG; Start 06/07/16 at 09:00 Aspirin (Aspirin) 325 mg DAILY GTB Last administered on 06/09/16 09:06; Admin Dose 325 MG; Start 06/07/16 at 09:00 Multivitamins (Thera-Plus) 5 ml DAILY GTB Last administered on 06/09/16 09:06 ; Admin Dose 5 ML; Start 06/07/16 at 09:00 Tamsulosin HCl (Flomax) 0.4 mg HS PO Last administered on 06/09/16 21:07; Admin Dose 0.4 MG; Start 06/07/16 at 21:00 Zinc Sulfate (Zinc Sulfate) 220 mg DAILY GTB Last administered on 06/09/16 09: 07; Admin Dose 220 MG; Start 06/07/16 at 09:00 Mupirocin (Bactroban) 1 applic BID TOP Last administered on 06/12/16 11:26; Admin Dose 1 APPLIC; Start 06/07/16 at 21:00 Metoclopramide HCl (Reglan) 10 mg Q6H PRN IV NAUSEA AND/OR VOMITING Last administered on 06/08/16 18:00; Admin Dose 10 MG; Start 06/08/16 at 09:30 Atenolol (Tenormin) 25 mg DAILY PO Last administered on 06/09/16 09:07; Admin Dose 25 MG; Start 06/08/16 at 11:30 Lorazepam 1 mg 1 mg Q6H PRN IV AGITATION/ANXIETY Last administered on 08:27; Admin Dose 1 MG; Start 06/09/16 at 13:30 Propofol 100 ml @ 2.25 mls/hr Q12H IV Last administered on 06/11/16 05:33; Admin Dose 4.5 MLS/HR; Start 06/10/16 at 08:00 Fluconazole 100 ml @ 100 mls/hr Q24H IVPB Last administered on 06/12/16 11:25 ; Admin Dose 100 MLS/HR; Start 06/10/16 at 09:00 Dextrose/Sodium Chloride 1,000 ml @ 50 mls/hr Q20H IV Last administered on 22:53; Admin Dose 50 MLS/HR; Start 06/10/16 at 18:00; Status Future Hold Norepinephrine 16 mg/Dextrose 500 ml @ 1.87 mls/hr TITRATE IV ; Start 06/10/16 at 20:30 Vancomycin HCl/ Sodium Chloride (Vancocin/NS) 250 ml @ 83.333 mls/ hr Q24H IVPB Last administered on 06/12/16 05:31; Admin Dose 83.333 MLS/HR; Start at 05:00 Miscellaneous Information 1 ONCE ONCE XX ; Start 06/13/16 at 04:00; Stop at 04:01 Total Parenteral Nutrition 1,000 ml @ 40 mls/hr Q24H IV ; Start 06/12/16 at 18: 00 Fat Emulsion Intravenous (Liposyn Ii 20%) 500 ml @ 21 mls/hr [id number] IV ; Start 06/12/16 at 18:00 Diagnostic Test (Pha) (Accu-Chek) 1 ea Q4 XX ; Start 06/12/16 at 17:00 HOLLI LIDNER MD Jun 12, 2016 17:46
[2016-06-12] MEDS: COLLAGENASE 30 GM TUBE TOP SCH (17:55)
[2016-06-12] MEDS: FAT EMULSION 20% 500 ML IV SCH (17:55)
[2016-06-12] MEDS: TPN 1,000 ML IV SCH (18:05)
--- NOTE | 2016-06-12 19:54 | PN ---
Date/Time of Note Date/Time of Note DATE: 06/12/16 TIME: 19:53 Assessment/Plan Lines/Catheters IV Catheter Type (from [facility]): PICC Line Alfonso in Place (from [facility]): Yes Assessment/Plan Chief Complaint/Hosp Course 1. Contained perforated viscous s/p IR drain 06/11 -drain -abx -supportive 2. Pneumonia -pulmonary toilette -abx 3. Sepsis, significant leukocytosis -abx -as above 4. Sacral decubitus ulcer -off load -nutrition optimization -vit c -local care 5. Chronic AFib -rate control -optimize electrolytes -tx infections 6. Anemia -monitor 7. Hypoalbuminemia -eventual nutritional optimization 8. CHF -judicious fluid management -cardiac optimization Thank you, Problems: Subjective 24 Hr Interval Summary s/p IR drain 06/11. No f/c. No cough. No sz. No rashes. No bloating. No vomiting. No bleeding. Leukocytosis slowly improving. Exam/Review of Systems Vital Signs Vitals Vital Signs Date Time Temp Pulse Resp B/P Pulse Ox O2 Delivery O2 Flow Rate FiO2 06/12/16 17:14 60 20 100 30 06/12/16 16:00 98.4 116/54 06/12/16 06:00 Mechanical Ventilator Intake and Output 06/11/16 06/11/16 06/12/16 15:00 23:00 07:00 Intake Total 786.0 ml 531.5 ml 277.0 ml Output Total 1075 ml 875 ml 655 ml Balance -289.0 ml -343.5 ml -378.0 ml Exam Free Text/Dictation Constitutional: No alert, No distress, No oriented Psych: confusion, No anxiety Head: atraumatic, normocephalic Eyes: PERRL, nl conjunctiva, No icteric ENMT: mucosa pink and moist, nl external ears & nose, nl lips & teeth Neck: jvd (min), non-tender Respiratory: No congested cough, No labored breathing Cardiovascular: No edema, No regular rate and rhythm Gastrointestinal: soft, drain Left side, PEG No distended, No firm, No rebound or guarding Musculoskeletal: No joint tenderness, No nl gait and stance Extremities: No calf tenderness, No cyanosis Neurological: No nl mental status, No nl speech, No nl strength Skin: nl turgor, rash or lesions (Sacral and LE decubitus ulcerations), No diaphoresis Lymph: nl lymph nodes Results Result Diagram: 06/12/16 03306/12/16 033 DAREK AHMADI MD Jun 12, 2016 19:54
[2016-06-12] MEDS: TAMSULOSIN (SR) 0.4 MG CAP PO SCH (21:00)
[2016-06-13] VITALS (32 sets, daily range): BP systolic 114–148; BP diastolic 50–96; PULSE 60–105; RESP 16–33
--- NOTE | 2016-06-13 00:22 | CONS ---
DATE OF ADMISSION: 06/06/2016 DATE OF CONSULTATION: 06/10/2016 TYPE OF CONSULTATION: Surgical. REFERRING PHYSICIAN: Bladimir Ramirez MD CHIEF COMPLAINT: 1. Multiple air-filled loops of small bowel in the abdomen with possible ileus versus obstruction. 2. Significant leukocytosis. 3. Sepsis. 4. Aspiration pneumonia. 5. Anemia. 6. Initial lactic acidosis. 7. Hypoalbuminemia. HISTORY OF PRESENT ILLNESS: Shira Mcdaniels is an 85-year-old male with multiple significant comorbidit ies with recent hospitalization and discharge who was readmitted with significant leukocytosis, anem ia, hypotension, lactic acidosis and found to be septic due to aspiration pneumonia. He was on ster oids at some point as well. The patient has been in the ICU. On recent KUB he was found to have di lated small bowel loops and surgical consultation is obtained for a possible ileus versus obstructio n. The patient is not communicating Most of the information is obtained from chart and staff. The patient has been having some bowel function and his blood pressure has been somewhat on the low side , but not tachycardic. His blood work identified initial white count of 36, which has gone to 42.4. H and H are 8/28, bands are 4. His chemistries have some abnormalities. Coags are mostly within normal. Urine showed trace leukocyte esterase. PAST MEDICAL HISTORY: 1. Congestive heart failure. 2. Chronic obstructive pulmonary disease. 3. Emphysema. 4. Gastrointestinal bleed. 5. Sepsis with shock. 6. Aspiration pneumonia. 7. Decubitus ulceration. 8. Dysphagia. 9. Urinary tract infection. 10. Electrolyte abnormalities. 11. Hypoalbuminemia. 12. Hypocalcemia. 13. Lactic acidosis. 14. Anemia. 15. Significant leukocytosis. 16. Atrial fibrillation 17. Cardiomyopathy with EF of 25% to 30%. 18. 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 19. Glaucoma. 20. Blood transfusions. PAST SURGICAL HISTORY: 1. PEG. 2. Trach. MEDICATIONS: As per APR. ALLERGIES: NONE. SOCIAL HISTORY: No current alcohol, drugs or tobacco. FAMILY HISTORY: Noncontributory. REVIEW OF SYSTEMS: A 12-point review of systems negative unless addressed otherwise. No blood per mouth or rectum. No weight changes. PHYSICAL EXAMINATION: VITAL SIGNS: Temperature is 98.3, pulse 70s to 90s, blood pressure 80s to 100s over 40s to 50s, sat ting 99% on vent, FIO2 0.3. GENERAL: Noncommunicative, ventilated. HEENT: Pupils are sluggish, round, and reactive. No scleral icterus. Mucous membranes are moist. NECK: Minimal JVD. No crepitus. Trach in place. PULMONARY: No wheezing. Normal respiratory effort. CARDIAC: S1, S2 present. ABDOMEN: Soft, somewhat distended. No guarding, not rigid. PEG in place. EXTREMITIES: No edema. VASCULAR: Capillary refill is 3 seconds. NEUROLOGIC: Does not follow commands. SKIN: No rashes. No jaundice. Sacral decubitus ulcer. Lower extremity decubitus ulcers. LABORATORY AND RADIOGRAPHIC: As per chart and HPI. ASSESSMENT AND PLAN: Shira Mcdaniels is an 85-year-old male with multiple significant comorbidities. 1. Sepsis with significant leukocytosis initially attributed to aspiration pneumonia and steroids. Continue antibiotics, supportive care, judicious fluid management. Pending CT scan of the abdomen and pelvis to rule out intra-abdominal source. 2. Aspiration pneumonia. Continue ventilator management, pulmonary toilet and antibiotics. 3. Severe decubitus ulceration. Continue offloading, nutrition optimization, Vitamin C, and local care and may benefit from eventual debridement. 4. Chronic atrial fibrillation, rate controlled. Continue electrolyte optimization and treatment o f underlying infections. 5. Anemia. Monitor and transfuse as needed. 6. Hypoalbuminemia, is multifactorial. Questionable benefit from eventual nutritional optimization . 7. Congestive heart failure. Continue judicious fluid management and cardiac optimization. Thank you very much for consulting me in this patient's care. Dictated By: DAREK GODWIN/TRACY Conf#: [id number] DID#: [id number]
[2016-06-13] MEDS: ACCU-CHEK XX SCH ×6 (01:00→22:00)
[2016-06-13] MEDS: ALBUTEROL 18 GM INHALER INH SCH ×6 (01:07→21:14)
[2016-06-13] MEDS: IPRATROPIUM (HFA) 12.9 GM INHALER INH SCH ×6 (01:07→21:14)
[2016-06-13] MEDS: morphine 2 MG INJ IV PRN ×2 (03:08→20:12)
[2016-06-13 03:53] LABS: ADD SCAN DIFF NO
[2016-06-13 03:54] LABS: ABNORMAL IP MESSAGE 1; BASOPHIL # 0.1 10^3/ul (0.0-0.1); BASOPHILS % 0.3 % (0.0-2.0); EOSINOPHILS % 0.1 % (0.0-7.0); HEMATOCRIT 27.6 % (42.0-52.0); HEMOGLOBIN 9.1 g/dl (14.0-18.0); LYMPHOCYTES # 1.5 10^3/ul (0.8-2.9); LYMPHOCYTES % 6.1 % (15.0-51.0); MEAN CORPUSCULAR HEMOGLOBIN 30.5 pg (29.0-33.0); MEAN CORPUSCULAR VOLUME 92.6 fl (82.0-101.0); MEAN PLATELET VOLUME 10.8 fl (7.4-10.4); MONOCYTE # 0.4 10^3/ul (0.3-0.9); MONOCYTES % 1.6 % (0.0-11.0); NEUTROPHIL # 18.8 10^3/ul (1.6-7.5); NUCLEATED RED BLOOD CELLS% 0.2 /100WBC (0.0-0.0); PLATELET COUNT 180 10^3/UL (140-415); RED BLOOD COUNT 2.98 10^6/ul (4.70-6.10); RED CELL DISTRIBUTION WIDTH 15.3 % (11.5-14.5)
[2016-06-13 04:09] LABS: CALCIUM 6.7 mg/dl (8.4-10.2); CREATININE 0.6 mg/dl (0.61-1.24); MAGNESIUM 1.8 mg/dl (1.7-2.5); PHOSPHORUS 2.8 mg/dl (2.5-4.9); POTASSIUM 3.4 mmol/L (3.5-5.1); WHITE BLOOD COUNT 24.1 10^3/ul (4.8-10.8)
[2016-06-13] MEDS: VANCOMYCIN 1.25 GM in SOD CHLORIDE 0.9% 250 ML IVPB SCH (04:54)
[2016-06-13] MEDS: PANTOPRAZOLE 40 MG INJ IV SCH (04:54)
[2016-06-13] MEDS: PROPOFOL 100 ML IV SCH ×2 (07:32→23:29)
[2016-06-13] MEDS: ASCORBIC ACID 500 MG TAB GTB SCH (09:00)
[2016-06-13] MEDS: MULTIVITAMINS 5 ML CUP GTB SCH (09:00)
[2016-06-13] MEDS: ASPIRIN 325 MG TAB GTB SCH (09:00)
[2016-06-13] MEDS ORDERED: VANCOMYCIN 1 GM in NS 250 ML IVPB SCH (09:00)
[2016-06-13] MEDS: ZINC SULFATE 220 MG CAP GTB SCH (09:00)
[2016-06-13] MEDS: ATENOLOL 25 MG TAB PO SCH (09:00)
[2016-06-13] MEDS: FLUCONAZOLE 200 MG/NS (PMX) 100 ML IVPB SCH (10:05)
[2016-06-13] MEDS: MEROPENEM 500 MG/100 ML (PMX) 100 ML IVPB SCH ×2 (10:12→21:35)
[2016-06-13] MEDS: MUPIROCIN 2% 22 GM OINT TOP SCH ×2 (10:16→21:36)
[2016-06-13] MEDS: COLLAGENASE 30 GM TUBE TOP SCH (10:16)
--- NOTE | 2016-06-13 10:28 | CONS ---
Date/Time of Note Date/Time of Note DATE: 06/13/16 TIME: 10:28 Consult Date/Type/Reason Admit Date/Time Jun 06, 2016 at 08:08 Initial Consult Date 06/07/16 Type of Consultation: pulmonary ICU Ordering Provider: HOLLI LINDER MD Subjective No significant changes continues mechanical ventilation remains mostly somnolent No vasopressor support Family conference scheduled Objective Vital Signs Date Time Temp Pulse Resp B/P Pulse Ox O2 Delivery O2 Flow Rate FiO2 06/13/16 08:00 60 06/13/16 07:00 18 125/59 100 Mechanical Ventilator 06/13/16 04:56 30 06/13/16 04:00 98.1 Intake and Output 06/12/16 06/12/16 06/13/16 15:00 23:00 07:00 Intake Total 502.25 ml 666 ml 549 ml Output Total 690 ml 680 ml 530 ml Balance -187.75 ml -14 ml 19 ml Exam PHYSICAL EXAMINATION GENERAL: Elderly gentleman, on mechanical ventilation via tracheostomy VITAL SIGNS: see below. HEENT: Pupils equal, round, and reactive to light. Tracheostomy site clean and intact. CARDIAC: S1, S2, tachycardia. CHEST: Diminished air entry bilaterally. Rales bilaterally ABDOMEN: Mildly distended. Decreased bowel sounds no guarding or rebound EXTREMITIES: No cyanosis, clubbing edema +1 NEUROLOGIC: Unable to assess Results/Medications Result Diagram: 06/13/16 0335 06/13/16 0335 Results 24 hrs Laboratory Tests Test 06/12/16 18:05 06/12/16 21:14 06/13/16 00:49 06/13/16 03:35 Bedside Glucose 82 87 111 White Blood Count 24.1 H Red Blood Count 2.98 L Hemoglobin 9.1 L Hematocrit 27.6 L Mean Corpuscular Volume 92.6 Mean Corpuscular Hemoglobin 30.5 Mean Corpuscular Hemoglobin Concent 33.0 Red Cell Distribution Width 15.3 H Platelet Count 180 Mean Platelet Volume 10.8 H Neutrophils % 78.0 H Lymphocytes % 6.1 L Monocytes % 1.6 Eosinophils % 0.1 Basophils % 0.3 Nucleated Red Blood Cells % 0.2 H Neutrophils # 18.8 H Lymphocytes # 1.5 Monocytes # 0.4 Eosinophils # 0.0 Basophils # 0.1 Nucleated Red Blood Cells # 0.0 Sodium Level 135 Potassium Level 3.4 L Chloride Level 108 Carbon Dioxide Level 25 Anion Gap 5 L Blood Urea Nitrogen 21 H Creatinine 0.60 L Glucose Level 114 # Lactic Acid Level 0.8 Calcium Level 6.7 L Phosphorus Level 2.8 Magnesium Level 1.8 Vancomycin Level Trough 19.9 Test 06/13/16 04:54 Bedside Glucose 107 Medications Current Medications Flumazenil (Romazicon) 0.2 mg Q1M PRN IV BENZODIAZEPINE OVERDOSE; Start at 10:30 Naloxone HCl (Narcan) 0.4 mg Q3M PRN IV DECREASED REPIRATORY RATE; Start at 10:30 Ondansetron HCl (Zofran Inj) 4 mg Q6H PRN IV NAUSEA AND/OR VOMITING; Start 01/12 at 10:30 Nitroglycerin (Nitroglycerin (Sl Tab) 0.4 Mg) 1 tab Q5M PRN SL CHEST PAIN; Start 06/06/16 at 10:30 Acetaminophen (Tylenol Liquid) 650 mg Q6H PRN PO PAIN LEVEL 1-3 OR FEVER; Start 06/06/16 at 10:30 Morphine Sulfate (morphine) 2 mg Q4H PRN IV PAIN LEVEL 7-10 Last administered on 06/13/16 03:08; Admin Dose 2 MG; Start 06/06/16 at 10:30 Docusate Sodium (Colace) 100 mg Q12H PRN PO CONSTIPATION; Start 06/06/16 at 10: 30 Magnesium Hydroxide (Milk Of Mag) 30 ml DAILY PRN PO CONSTIPATION; Start at 10:30 Bisacodyl (Dulcolax) 5 mg DAILY PRN PO CONSTIPATION; Start 06/06/16 at 10:30 Pantoprazole (Protonix Iv) 40 mg DAILY@06 IV Last administered on 06/13/16 04: 54; Admin Dose 40 MG; Start 06/07/16 at 06:00 Enoxaparin Sodium 40 mg 40 mg DAILY SC Last administered on 06/12/16 11:26; Admin Dose 40 MG; Start 06/07/16 at 09:00 Meropenem (Merrem 500 Mg/ 100 ml (Pmx)) 100 ml @ 200 mls/hr Q12 IVPB Last administered on 06/13/16 10:12; Admin Dose 200 MLS/HR; Start 06/06/16 at 13:00 Collagenase (Santyl) 1 applic DAILY TOP Last administered on 06/13/16 10:16; Admin Dose 1 APPLIC; Start 06/07/16 at 09:00 Collagenase (Santyl) 1 applic PRN PRN TOP WOUND CARE; Start 06/06/16 at 16:00 IV Flush (NS 10 ml) 10 ml PRN PRN IV IV PROTOCOL; Start 06/06/16 at 18:30 Ascorbic Acid (Vitamin C) 500 mg DAILY GTB Last administered on 06/09/16 09:07 ; Admin Dose 500 MG; Start 06/07/16 at 09:00 Aspirin (Aspirin) 325 mg DAILY GTB Last administered on 06/09/16 09:06; Admin Dose 325 MG; Start 06/07/16 at 09:00 Multivitamins (Thera-Plus) 5 ml DAILY GTB Last administered on 06/09/16 09:06 ; Admin Dose 5 ML; Start 06/07/16 at 09:00 Tamsulosin HCl (Flomax) 0.4 mg HS PO Last administered on 06/09/16 21:07; Admin Dose 0.4 MG; Start 06/07/16 at 21:00 Zinc Sulfate (Zinc Sulfate) 220 mg DAILY GTB Last administered on 06/09/16 09: 07; Admin Dose 220 MG; Start 06/07/16 at 09:00 Mupirocin (Bactroban) 1 applic BID TOP Last administered on 06/13/16 10:16; Admin Dose 1 APPLIC; Start 06/07/16 at 21:00 Metoclopramide HCl (Reglan) 10 mg Q6H PRN IV NAUSEA AND/OR VOMITING Last administered on 06/08/16 18:00; Admin Dose 10 MG; Start 06/08/16 at 09:30 Atenolol (Tenormin) 25 mg DAILY PO Last administered on 06/09/16 09:07; Admin Dose 25 MG; Start 06/08/16 at 11:30 Lorazepam 1 mg 1 mg Q6H PRN IV AGITATION/ANXIETY Last administered on 08:27; Admin Dose 1 MG; Start 06/09/16 at 13:30 Propofol 100 ml @ 2.25 mls/hr Q12H IV Last administered on 06/11/16 05:33; Admin Dose 4.5 MLS/HR; Start 06/10/16 at 08:00 Fluconazole 100 ml @ 100 mls/hr Q24H IVPB Last administered on 06/13/16 10:05 ; Admin Dose 100 MLS/HR; Start 06/10/16 at 09:00 Dextrose/Sodium Chloride 1,000 ml @ 50 mls/hr Q20H IV Last administered on 22:53; Admin Dose 50 MLS/HR; Start 06/10/16 at 18:00; Status Future Hold Norepinephrine 16 mg/Dextrose 500 ml @ 1.87 mls/hr TITRATE IV ; Start 06/10/16 at 20:30 Total Parenteral Nutrition 1,000 ml @ 40 mls/hr Q24H IV Last administered on 18:05; Admin Dose 40 MLS/HR; Start 06/12/16 at 18:00 Fat Emulsion Intravenous (Liposyn Ii 20%) 500 ml @ 21 mls/hr [id number] IV Last administered on 06/12/16 17:55; Admin Dose 21 MLS/HR; Start 06/12/16 at 18:00 Diagnostic Test (Pha) 1 ea 1 ea Q4 XX Last administered on 06/12/16 21:23; Admin Dose 1 EA; Start 06/12/16 at 17:00 Vancomycin HCl (Vancocin) 250 ml @ 125 mls/hr Q24H IVPB ; Start 06/13/16 at 13: 00 Assessment/Plan Chief Complaint/Hosp Course Assessment 1. Vent dependent respiratory failure with evidence of healthcare associated pneumonia 2. Status post bowel perforation with drainage 3. Persistent leukocytosis sepsis 4. Chronic atrial fibrillation 5. Decubitus ulcers 6. Dysphagia with G-tube 7. Anemia likely of chronic disease Plan 1. Continue mechanical ventilation 2. Continue broad-spectrum antibiotics 3. Surgical recommendations 4. Palliative care consult 5. DVT and GI prophylaxis Disposition Consider transfer to telemetry Problems: KAVON TROY MD, [facility] Jun 13, 2016 10:28
--- NOTE | 2016-06-13 10:34 | CONS ---
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-reasonable volume status at this time - con't to keep euvolemic 2.Resp failure s/p trach on vent - con't ICU care 3.Cardiomyopathy-LVEF 25-30%- keep euvolemic 4.HTN-with episodes of borderline Hotn 5.PPM-s/p interogation with proper function-episodes of SVT and shot episode VT 06/09/16/good battery life 6.Leukocytosis - on anti-bx 7.Tachycardia-PAF 8.Perforated viscous s/p IR drain placement Consultation Date/Type/Reason Admit Date/Time Jun 06, 2016 at 08:08 Initial Consult Date 06/07/16 Type of Consultation: pulmonary ICU Referring Provider: HOLLI LINDER MD 24 HR Interval Summary Free Text/Dictation No acute events - BP in good range - will adjust Rx as needed ROS: No fever, no chills, no nausea, no vomiting, no diarrhea/constipation No recent weight changes No chest pain, no PND, no orthopnea No dizziness, blurred vision No thirst, no heat or cold intolerance (per nurse) Exam/Review of Systems Vital Signs Vitals Vital Signs Date Time Temp Pulse Resp B/P Pulse Ox O2 Delivery O2 Flow Rate FiO2 06/13/16 08:00 60 06/13/16 07:00 18 125/59 100 Mechanical Ventilator 06/13/16 04:56 30 06/13/16 04:00 98.1 Intake and Output 06/12/16 06/12/16 06/13/16 15:00 23:00 07:00 Intake Total 502.25 ml 666 ml 549 ml Output Total 690 ml 680 ml 530 ml Balance -187.75 ml -14 ml 19 ml Exam General: WN/WD/NAD, AOx 0 HEENT: Unicetric/atraumatic/EOMI (does not follow commands) NECK: tarch Lymph: no lymphadenopathy HEART: regular with no S3, II/ systolic murmur at apex LUNGS: Coarse sounds ABD: soft, NT, ND, +BS : Intact Neuro: non focal SKIN: chronic changes EXT: trace edema Results Result Diagram: 06/13/16 0335 06/13/16 0335 Results 24 hrs Laboratory Tests Test 06/12/16 18:05 06/12/16 21:14 06/13/16 00:49 06/13/16 03:35 Bedside Glucose 82 87 111 White Blood Count 24.1 H Red Blood Count 2.98 L Hemoglobin 9.1 L Hematocrit 27.6 L Mean Corpuscular Volume 92.6 Mean Corpuscular Hemoglobin 30.5 Mean Corpuscular Hemoglobin Concent 33.0 Red Cell Distribution Width 15.3 H Platelet Count 180 Mean Platelet Volume 10.8 H Neutrophils % 78.0 H Lymphocytes % 6.1 L Monocytes % 1.6 Eosinophils % 0.1 Basophils % 0.3 Nucleated Red Blood Cells % 0.2 H Neutrophils # 18.8 H Lymphocytes # 1.5 Monocytes # 0.4 Eosinophils # 0.0 Basophils # 0.1 Nucleated Red Blood Cells # 0.0 Sodium Level 135 Potassium Level 3.4 L Chloride Level 108 Carbon Dioxide Level 25 Anion Gap 5 L Blood Urea Nitrogen 21 H Creatinine 0.60 L Glucose Level 114 # Lactic Acid Level 0.8 Calcium Level 6.7 L Phosphorus Level 2.8 Magnesium Level 1.8 Vancomycin Level Trough 19.9 Test 06/13/16 04:54 Bedside Glucose 107 Medications Medications Current Medications Flumazenil (Romazicon) 0.2 mg Q1M PRN IV BENZODIAZEPINE OVERDOSE; Start at 10:30 Naloxone HCl (Narcan) 0.4 mg Q3M PRN IV DECREASED REPIRATORY RATE; Start at 10:30 Ondansetron HCl (Zofran Inj) 4 mg Q6H PRN IV NAUSEA AND/OR VOMITING; Start 01/12 at 10:30 Nitroglycerin (Nitroglycerin (Sl Tab) 0.4 Mg) 1 tab Q5M PRN SL CHEST PAIN; Start 06/06/16 at 10:30 Acetaminophen (Tylenol Liquid) 650 mg Q6H PRN PO PAIN LEVEL 1-3 OR FEVER; Start 06/06/16 at 10:30 Morphine Sulfate (morphine) 2 mg Q4H PRN IV PAIN LEVEL 7-10 Last administered on 06/13/16t 03:08; Admin Dose 2 MG; Start 06/06/16 at 10:30 Docusate Sodium (Colace) 100 mg Q12H PRN PO CONSTIPATION; Start 06/06/16 at 10: 30 Magnesium Hydroxide (Milk Of Mag) 30 ml DAILY PRN PO CONSTIPATION; Start at 10:30 Bisacodyl (Dulcolax) 5 mg DAILY PRN PO CONSTIPATION; Start 06/06/16 at 10:30 Pantoprazole (Protonix Iv) 40 mg DAILY@06 IV Last administered on 06/13/16 04: 54; Admin Dose 40 MG; Start 06/07/16 at 06:00 Enoxaparin Sodium 40 mg 40 mg DAILY SC Last administered on 06/12/16 11:26; Admin Dose 40 MG; Start 06/07/16 at 09:00 Meropenem (Merrem 500 Mg/ 100 ml (Pmx)) 100 ml @ 200 mls/hr Q12 IVPB Last administered on 06/13/16 10:12; Admin Dose 200 MLS/HR; Start 06/06/16 at 13:00 Collagenase (Santyl) 1 applic DAILY TOP Last administered on 06/13/16 10:16; Admin Dose 1 APPLIC; Start 06/07/16 at 09:00 Collagenase (Santyl) 1 applic PRN PRN TOP WOUND CARE; Start 06/06/16 at 16:00 IV Flush (NS 10 ml) 10 ml PRN PRN IV IV PROTOCOL; Start 06/06/16 at 18:30 Ascorbic Acid (Vitamin C) 500 mg DAILY GTB Last administered on 06/09/16 09:07 ; Admin Dose 500 MG; Start 06/07/16 at 09:00 Aspirin (Aspirin) 325 mg DAILY GTB Last administered on 06/09/16 09:06; Admin Dose 325 MG; Start 06/07/16 at 09:00 Multivitamins (Thera-Plus) 5 ml DAILY GTB Last administered on 06/09/16 09:06 ; Admin Dose 5 ML; Start 06/07/16 at 09:00 Tamsulosin HCl (Flomax) 0.4 mg HS PO Last administered on 06/09/16 21:07; Admin Dose 0.4 MG; Start 06/07/16 at 21:00 Zinc Sulfate (Zinc Sulfate) 220 mg DAILY GTB Last administered on 06/09/16 09: 07; Admin Dose 220 MG; Start 06/07/16 at 09:00 Mupirocin (Bactroban) 1 applic BID TOP Last administered on 06/13/16 10:16; Admin Dose 1 APPLIC; Start 06/07/16 at 21:00 Metoclopramide HCl (Reglan) 10 mg Q6H PRN IV NAUSEA AND/OR VOMITING Last administered on 06/08/16 18:00; Admin Dose 10 MG; Start 06/08/16 at 09:30 Atenolol (Tenormin) 25 mg DAILY PO Last administered on 06/09/16 09:07; Admin Dose 25 MG; Start 06/08/16 at 11:30 Lorazepam 1 mg 1 mg Q6H PRN IV AGITATION/ANXIETY Last administered on 08:27; Admin Dose 1 MG; Start 06/09/16 at 13:30 Propofol 100 ml @ 2.25 mls/hr Q12H IV Last administered on 06/11/16 05:33; Admin Dose 4.5 MLS/HR; Start 06/10/16 at 08:00 Fluconazole 100 ml @ 100 mls/hr Q24H IVPB Last administered on 06/13/16 10:05 ; Admin Dose 100 MLS/HR; Start 06/10/16 at 09:00 Dextrose/Sodium Chloride 1,000 ml @ 50 mls/hr Q20H IV Last administered on 22:53; Admin Dose 50 MLS/HR; Start 06/10/16 at 18:00; Status Future Hold Norepinephrine 16 mg/Dextrose 500 ml @ 1.87 mls/hr TITRATE IV ; Start 06/10/16 at 20:30 Total Parenteral Nutrition 1,000 ml @ 40 mls/hr Q24H IV Last administered on 18:05; Admin Dose 40 MLS/HR; Start 06/12/16 at 18:00 Fat Emulsion Intravenous (Liposyn Ii 20%) 500 ml @ 21 mls/hr [id number] IV Last administered on 06/12/16 17:55; Admin Dose 21 MLS/HR; Start 06/12/16 at 18:00 Diagnostic Test (Pha) 1 ea 1 ea Q4 XX Last administered on 06/12/16 21:23; Admin Dose 1 EA; Start 06/12/16 at 17:00 Vancomycin HCl (Vancocin) 250 ml @ 125 mls/hr Q24H IVPB ; Start 06/13/16 at 13: 00 ZEUS CHAPPELL MD Jun 13, 2016 10:34
[2016-06-13] MEDS: ENOXAPARIN 40 MG/0.4 ML SYG SC SCH (10:40)
--- NOTE | 2016-06-13 12:27 | PN ---
Date/Time of Note Date/Time of Note DATE: 06/13/16 TIME: 12:26 Assessment/Plan Lines/Catheters IV Catheter Type (from [facility]): PICC Line Alfonso in Place (from [facility]): Yes Assessment/Plan Chief Complaint/Hosp Course 1. Contained perforated viscous s/p IR drain 06/11 -drain -abx -supportive 2. Pneumonia -pulmonary toilette -abx 3. Sepsis, significant leukocytosis -abx -as above 4. Sacral decubitus ulcer -off load -nutrition optimization -vit c -local care 5. Chronic AFib -rate control -optimize electrolytes -tx infections 6. Anemia -monitor 7. Hypoalbuminemia -eventual nutritional optimization 8. CHF -judicious fluid management -cardiac optimization Thank you, Problems: Subjective 24 Hr Interval Summary s/p IR drain 06/11. No f/c. No cough. No sz. No rashes. No bloating. No vomiting. No bleeding. Leukocytosis slowly improving. Exam/Review of Systems Vital Signs Vitals Vital Signs Date Time Temp Pulse Resp B/P Pulse Ox O2 Delivery O2 Flow Rate FiO2 06/13/16 08:00 60 06/13/16 07:00 18 125/59 100 Mechanical Ventilator 06/13/16 04:56 30 06/13/16 04:00 98.1 Intake and Output 06/12/16 06/12/16 06/13/16 14:59 22:59 06:59 Intake Total 406.75 ml 705 ml 610 ml Output Total 715 ml 645 ml 615 ml Balance -308.25 ml 60 ml -5 ml Exam Free Text/Dictation Constitutional: No alert, No distress, No oriented Psych: confusion, No anxiety Head: atraumatic, normocephalic Eyes: PERRL, nl conjunctiva, No icteric ENMT: mucosa pink and moist, nl external ears & nose, nl lips & teeth Neck: jvd (min), non-tender Respiratory: No congested cough, No labored breathing Cardiovascular: No edema, No regular rate and rhythm Gastrointestinal: soft, drain Left side, PEG No distended, No firm, No rebound or guarding Musculoskeletal: No joint tenderness, No nl gait and stance Extremities: No calf tenderness, No cyanosis Neurological: No nl mental status, No nl speech, No nl strength Skin: nl turgor, rash or lesions (Sacral and LE decubitus ulcerations), No diaphoresis Lymph: nl lymph nodes Results Result Diagram: 06/13/16 0335 06/13/16 0335 DAREK AHMADI MD Jun 13, 2016 12:27
[2016-06-13] MEDS: VANCOMYCIN 1 GM in NS 250 ML IVPB SCH (12:51)
--- NOTE | 2016-06-13 17:34 | PN ---
DATE: 06/13/2016 SUBJECTIVE: No events overnight. No fevers. The patient is lying comfortably in bed. VITAL SIGNS: Temperature 98.1, pulse 72, respirations 22, blood pressure 125/59, saturation 100 on 30 FIO2. WBC 24.1, H and H 9.1 and 27.6, platelets 180, neutrophils 78, BUN 21, creatinine 0.60. MICROBIOLOGY: Intra-abdominal fluid collection growing Enterococcus species of Bacteroides fragilis . INDWELLINGS: Trach, PEG, intra-abdominal drainage catheter on the left, Alfonso and PICC line. ANTIMICROBIALS: The patient remains on: 1. IV vancomycin. 2. Fluconazole. 3. Meropenem. PHYSICAL EXAMINATION: GENERAL: This is a fragile, chronically ill-appearing, elderly man who is nonverbal, noncommunicati ve and in no distress. HEENT: Head atraumatic, normocephalic. Sclerae anicteric. Buccal mucosa dry. NECK: Supple, trachea midline. CHEST: Rise symmetrical. Tracheostomy present. Chest rise symmetrical. Breath sounds diminished to bases. HEART: S1, S2. ABDOMEN: Soft, bowel tones present. EXTREMITIES: Without cyanosis with trace edema. ASSESSMENT: 1. Sepsis with methicillin-resistant Staphylococcus aureus bacteremia on admission. 2. Enterococcal urinary tract infection. 3. Perforated viscus status post CT-guided drainage catheter placement. 4. Chronic respiratory failure, pneumonia. 5. Chronic encephalopathy. 6. Methicillin-resistant Staphylococcus aureus nares colonization. 7. History of permanent pacemaker placement. PLAN: The patient remains hemodynamically stable. We will continue him on current antimicrobials, await for final cultures. Follow recommendations of consultants. Dictated By: JOSE G CUNNINGHAM LIGHTING DESIGNER for RASHIDA HUSSEIN/TRACY Conf#: [id number] DID#: [id number]
--- NOTE | 2016-06-13 18:03 | PN ---
Date/Time of Note Date/Time of Note DATE: 06/13/16 TIME: 18:02 Assessment/Plan VTE Prophylaxis VTE Prophylaxis Intervention: other Lines/Catheters IV Catheter Type (from Nrs): PICC Line Central line still needed: Yes Urinary Cath still in place: Yes Reason Cath still needed: other (indicate) Assessment/Plan Chief Complaint/Hosp Course IMPRESSION: 1. Septic shock.better 2. Pneumonia. aspiration 3. Leukocytosis.better 4. Hematuria. better 5. Lactic acidosis. 6. Respiratory failure. 7. Gastrostomy tube placement. 8. Anemia. 9. Atrial fibrillation. 10. History of congestive heart failure with decreased ejection fraction. 11. vdrf 12. History of paroxysmal atrial fibrillation. 13. The patient now has decubitus. 14 uti 15 In the left anterior mid pelvis there is an approximate 6.3 x 3.2 x 4.7 cm air and fluid collection not definitely bowel suspicious for an abscess/ localized perforation. Diverticula in sigmoid and descending colon. Small amount of ascites. Gastrostomy tube in stomach. Small amount of air in gastric wall which could be secondary to the gastrostomy. No orally administered contrast is seen outside of the intestinal tract. No free pneumoperitoneum is seen. 1.6 cm rounded relatively low density structure in the upper left kidney which could represent a hyperattenuating cyst or solid mass. plan antibiotic per id weaning per pulmonary and cardio surgery consult npo tpn Problems: Subjective 24 Hr Interval Summary Subjective hx not possible: other (on vent) Exam/Review of Systems Vital Signs Vitals Vital Signs Date Time Temp Pulse Resp B/P Pulse Ox O2 Delivery O2 Flow Rate FiO2 06/13/16 17:20 66 19 100 30 06/13/16 07:00 125/59 Mechanical Ventilator 06/13/16 04:00 98.1 Intake and Output 06/12/16 06/12/16 06/13/16 15:00 23:00 07:00 Intake Total 502.25 ml 666 ml 549 ml Output Total 690 ml 680 ml 610 ml Balance -187.75 ml -14 ml -61 ml Exam Respiratory: diminished breath sounds Cardiovascular: regular rate and rhythm Gastrointestinal: bowel sounds (+), soft Extremities: edema (+) Results Result Diagram: 06/13/16 0335 06/13/16 0335 Results 24 hrs Laboratory Tests Test 06/12/16 18:05 06/12/16 21:14 06/13/16 00:49 06/13/16 03:35 Bedside Glucose 82 87 111 White Blood Count 24.1 H Red Blood Count 2.98 L Hemoglobin 9.1 L Hematocrit 27.6 L Mean Corpuscular Volume 92.6 Mean Corpuscular Hemoglobin 30.5 Mean Corpuscular Hemoglobin Concent 33.0 Red Cell Distribution Width 15.3 H Platelet Count 180 Mean Platelet Volume 10.8 H Neutrophils % 78.0 H Lymphocytes % 6.1 L Monocytes % 1.6 Eosinophils % 0.1 Basophils % 0.3 Nucleated Red Blood Cells % 0.2 H Neutrophils # 18.8 H Lymphocytes # 1.5 Monocytes # 0.4 Eosinophils # 0.0 Basophils # 0.1 Nucleated Red Blood Cells # 0.0 Sodium Level 135 Potassium Level 3.4 L Chloride Level 108 Carbon Dioxide Level 25 Anion Gap 5 L Blood Urea Nitrogen 21 H Creatinine 0.60 L Glucose Level 114 # Lactic Acid Level 0.8 Calcium Level 6.7 L Phosphorus Level 2.8 Magnesium Level 1.8 Vancomycin Level Trough 19.9 Test 06/13/16 04:54 06/13/16 10:46 06/13/16 12:44 06/13/16 17:01 Bedside Glucose 107 121 112 114 Medications Medications Current Medications Flumazenil (Romazicon) 0.2 mg Q1M PRN IV BENZODIAZEPINE OVERDOSE; Start at 10:30 Naloxone HCl (Narcan) 0.4 mg Q3M PRN IV DECREASED REPIRATORY RATE; Start at 10:30 Ondansetron HCl (Zofran Inj) 4 mg Q6H PRN IV NAUSEA AND/OR VOMITING; Start 01/12 at 10:30 Nitroglycerin (Nitroglycerin (Sl Tab) 0.4 Mg) 1 tab Q5M PRN SL CHEST PAIN; Start 06/06/16 at 10:30 Acetaminophen (Tylenol Liquid) 650 mg Q6H PRN PO PAIN LEVEL 1-3 OR FEVER; Start 06/06/16 at 10:30 Morphine Sulfate (morphine) 2 mg Q4H PRN IV PAIN LEVEL 7-10 Last administered on 06/13/16t 03:08; Admin Dose 2 MG; Start 06/06/16 at 10:30 Docusate Sodium (Colace) 100 mg Q12H PRN PO CONSTIPATION; Start 06/06/16 at 10: 30 Magnesium Hydroxide (Milk Of Mag) 30 ml DAILY PRN PO CONSTIPATION; Start at 10:30 Bisacodyl (Dulcolax) 5 mg DAILY PRN PO CONSTIPATION; Start 06/06/16 at 10:30 Pantoprazole (Protonix Iv) 40 mg DAILY@06 IV Last administered on 06/13/16 04: 54; Admin Dose 40 MG; Start 06/07/16 at 06:00 Enoxaparin Sodium 40 mg 40 mg DAILY SC Last administered on 06/13/16 10:40; Admin Dose 40 MG; Start 06/07/16 at 09:00 Meropenem (Merrem 500 Mg/ 100 ml (Pmx)) 100 ml @ 200 mls/hr Q12 IVPB Last administered on 06/13/16 10:12; Admin Dose 200 MLS/HR; Start 06/06/16 at 13:00 Collagenase (Santyl) 1 applic DAILY TOP Last administered on 06/13/16 10:16; Admin Dose 1 APPLIC; Start 06/07/16 at 09:00 Collagenase (Santyl) 1 applic PRN PRN TOP WOUND CARE; Start 06/06/16 at 16:00 IV Flush (NS 10 ml) 10 ml PRN PRN IV IV PROTOCOL; Start 06/06/16 at 18:30 Ascorbic Acid (Vitamin C) 500 mg DAILY GTB Last administered on 06/09/16 09:07 ; Admin Dose 500 MG; Start 06/07/16 at 09:00 Aspirin (Aspirin) 325 mg DAILY GTB Last administered on 06/09/16 09:06; Admin Dose 325 MG; Start 06/07/16 at 09:00 Multivitamins (Thera-Plus) 5 ml DAILY GTB Last administered on 06/09/16 09:06 ; Admin Dose 5 ML; Start 06/07/16 at 09:00 Tamsulosin HCl (Flomax) 0.4 mg HS PO Last administered on 06/09/16 21:07; Admin Dose 0.4 MG; Start 06/07/16 at 21:00 Zinc Sulfate (Zinc Sulfate) 220 mg DAILY GTB Last administered on 06/09/16 09: 07; Admin Dose 220 MG; Start 06/07/16 at 09:00 Mupirocin (Bactroban) 1 applic BID TOP Last administered on 06/13/16 10:16; Admin Dose 1 APPLIC; Start 06/07/16 at 21:00 Metoclopramide HCl (Reglan) 10 mg Q6H PRN IV NAUSEA AND/OR VOMITING Last administered on 06/08/16 18:00; Admin Dose 10 MG; Start 06/08/16 at 09:30 Atenolol (Tenormin) 25 mg DAILY PO Last administered on 06/09/16 09:07; Admin Dose 25 MG; Start 06/08/16 at 11:30 Lorazepam 1 mg 1 mg Q6H PRN IV AGITATION/ANXIETY Last administered on 08:27; Admin Dose 1 MG; Start 06/09/16 at 13:30 Propofol 100 ml @ 2.25 mls/hr Q12H IV Last administered on 06/11/16 05:33; Admin Dose 4.5 MLS/HR; Start 06/10/16 at 08:00 Fluconazole 100 ml @ 100 mls/hr Q24H IVPB Last administered on 06/13/16 10:05 ; Admin Dose 100 MLS/HR; Start 06/10/16 at 09:00 Dextrose/Sodium Chloride 1,000 ml @ 50 mls/hr Q20H IV Last administered on 22:53; Admin Dose 50 MLS/HR; Start 06/10/16 at 18:00; Status Future Hold Norepinephrine 16 mg/Dextrose 500 ml @ 1.87 mls/hr TITRATE IV ; Start 06/10/16 at 20:30 Total Parenteral Nutrition 1,000 ml @ 40 mls/hr Q24H IV Last administered on 18:05; Admin Dose 40 MLS/HR; Start 06/12/16 at 18:00 Fat Emulsion Intravenous (Liposyn Ii 20%) 500 ml @ 21 mls/hr [id number] IV Last administered on 06/12/16 17:55; Admin Dose 21 MLS/HR; Start 06/12/16 at 18:00 Diagnostic Test (Pha) 1 ea 1 ea Q4 XX Last administered on 06/13/16 12:44; Admin Dose 1 EA; Start 06/12/16 at 17:00 Vancomycin HCl (Vancocin) 250 ml @ 125 mls/hr Q24H IVPB Last administered on t 12:51; Admin Dose 125 MLS/HR; Start 06/13/16 at 13:00 HOLLI LINDER MD Jun 13, 2016 18:03
[2016-06-13] MEDS: TPN 1,000 ML IV SCH (19:28)
[2016-06-13] MEDS: FAT EMULSION 20% 500 ML IV SCH (19:28)
[2016-06-13] MEDS: TAMSULOSIN (SR) 0.4 MG CAP PO SCH ×2 (21:00→21:35)
[2016-06-14] VITALS (29 sets, daily range): BP systolic 96–135; BP diastolic 45–74; PULSE 60–96; RESP 17–30
[2016-06-14] MEDS: ACCU-CHEK XX SCH ×6 (01:00→20:51)
[2016-06-14] MEDS: IPRATROPIUM (HFA) 12.9 GM INHALER INH SCH ×6 (01:02→21:44)
[2016-06-14] MEDS: ALBUTEROL 18 GM INHALER INH SCH ×6 (01:02→21:44)
[2016-06-14 04:33] LABS: ADD SCAN DIFF NO
[2016-06-14 04:56] LABS: CREATININE 0.59 mg/dl (0.61-1.24)
[2016-06-14 04:57] LABS: CALCIUM 6.9 mg/dl (8.4-10.2); MAGNESIUM 1.7 mg/dl (1.7-2.5); PHOSPHORUS 2.8 mg/dl (2.5-4.9)
[2016-06-14 05:16] LABS: ABNORMAL IP MESSAGE 1; BASOPHIL # 0.1 10^3/ul (0.0-0.1); BASOPHILS % 0.3 % (0.0-2.0); EOSINOPHILS # 0.1 10^3/ul (0.0-0.5); EOSINOPHILS % 0.5 % (0.0-7.0); HEMATOCRIT 27.2 % (42.0-52.0); HEMOGLOBIN 8.6 g/dl (14.0-18.0); LYMPHOCYTES # 1.8 10^3/ul (0.8-2.9); LYMPHOCYTES % 8.1 % (15.0-51.0); MEAN CORPUSCULAR HEMOGLOBIN 29.4 pg (29.0-33.0); MEAN CORPUSCULAR HGB CONC 31.6 g/dl (32.0-37.0); MEAN CORPUSCULAR VOLUME 92.8 fl (82.0-101.0); MEAN PLATELET VOLUME 11.4 fl (7.4-10.4); MONOCYTE # 0.4 10^3/ul (0.3-0.9); MONOCYTES % 1.6 % (0.0-11.0); NEUTROPHIL # 16.7 10^3/ul (1.6-7.5); NEUTROPHILS % 75.3 % (39.0-77.0); NUCLEATED RED BLOOD CELLS% 0.1 /100WBC (0.0-0.0); PLATELET COUNT 177 10^3/UL (140-415); RED BLOOD COUNT 2.93 10^6/ul (4.70-6.10); RED CELL DISTRIBUTION WIDTH 15.5 % (11.5-14.5); WHITE BLOOD COUNT 22.1 10^3/ul (4.8-10.8)
[2016-06-14] MEDS: PANTOPRAZOLE 40 MG INJ IV SCH (06:42)
[2016-06-14] MEDS: PROPOFOL 100 ML IV SCH (08:00)
--- NOTE | 2016-06-14 09:04 | CONS ---
Date/Time of Note Date/Time of Note DATE: 06/14/16 TIME: 09:02 Assessment/Plan Assessment/Plan Additional Assessment/Plan Ventilator settings are AC of 14, tidal volume 400, PEEP of 5, 30% FiO2. Assessment recommendations; 1. Patient with history of chronic respiratory failure admitted for sepsis due to sacral decubitus ulcer. 2. Paroxysmal atrial fibrillation 3. Advanced dementia. 4. Anemia. 5. Bowel perforation. Continue current supportive care. Prognosis is extremely poor. A family conference is to be held this afternoon. Consultation Date/Type/Reason Admit Date/Time Jun 06, 2016 at 08:08 Initial Consult Date 06/07/16 Type of Consultation: pulmonary ICU Referring Provider: HOLLI LINDER MD 24 HR Interval Summary Free Text/Dictation Patient condition remains critical. Still requiring full ventilator support. Remains unresponsive. General exam; elderly male, on ventilator via tracheostomy currently in no distress. Exam/Review of Systems Vital Signs Vitals Vital Signs Date Time Temp Pulse Resp B/P Pulse Ox O2 Delivery O2 Flow Rate FiO2 06/14/16 07:00 81 30 135/60 98 06/14/16 04:40 30 06/14/16 04:00 98.1 06/13/16 12:00 Mechanical Ventilator Intake and Output 06/13/16 06/13/16 06/14/16 15:00 23:00 07:00 Intake Total 313.5 ml 468.85 ml Output Total 925 ml 1200 ml 1020 ml Balance -925 ml -886.5 ml -551.15 ml Exam HEENT exam; supple neck, tracheostomy in place with clean insertion site. Patient is edentulous, has bilateral corneal opacities. No neck masses, no thyromegaly no neck bruits. Chest exam; diminished but clear vessel. S1-S2 audible, no murmurs. Irregular rhythm. Abdomen exam is; soft, mildly distended. G-tube in place. Bowel sounds are absent. Extremity exam; no peripheral edema. 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 Results Result Diagram: 06/14/16 0410 06/14/16 0410 Results 24 hrs Laboratory Tests Test 06/13/16 10:46 06/13/16 12:44 06/13/16 17:01 06/13/16 21:49 Bedside Glucose 121 112 114 142 Test 06/14/16 04:10 White Blood Count 22.1 H Red Blood Count 2.93 L Hemoglobin 8.6 L Hematocrit 27.2 L Mean Corpuscular Volume 92.8 Mean Corpuscular Hemoglobin 29.4 Mean Corpuscular Hemoglobin Concent 31.6 L Red Cell Distribution Width 15.5 H Platelet Count 177 Mean Platelet Volume 11.4 H Neutrophils % 75.3 Lymphocytes % 8.1 L Monocytes % 1.6 Eosinophils % 0.5 Basophils % 0.3 Nucleated Red Blood Cells % 0.1 H Neutrophils # 16.7 H Lymphocytes # 1.8 Monocytes # 0.4 Eosinophils # 0.1 Basophils # 0.1 Nucleated Red Blood Cells # 0.0 Sodium Level 137 Potassium Level 3.0 L Chloride Level 104 Carbon Dioxide Level 28 Anion Gap 8 Blood Urea Nitrogen 18 Creatinine 0.59 L Glucose Level 111 Calcium Level 6.9 L Phosphorus Level 2.8 Magnesium Level 1.7 Medications Medications Current Medications Flumazenil (Romazicon) 0.2 mg Q1M PRN IV BENZODIAZEPINE OVERDOSE; Start at 10:30 Naloxone HCl (Narcan) 0.4 mg Q3M PRN IV DECREASED REPIRATORY RATE; Start at 10:30 Ondansetron HCl (Zofran Inj) 4 mg Q6H PRN IV NAUSEA AND/OR VOMITING; Start 01/12 at 10:30 Nitroglycerin (Nitroglycerin (Sl Tab) 0.4 Mg) 1 tab Q5M PRN SL CHEST PAIN; Start 06/06/16 at 10:30 Acetaminophen (Tylenol Liquid) 650 mg Q6H PRN PO PAIN LEVEL 1-3 OR FEVER; Start 06/06/16 at 10:30 Morphine Sulfate (morphine) 2 mg Q4H PRN IV PAIN LEVEL 7-10 Last administered on 06/13/16 20:12; Admin Dose 2 MG; Start 06/06/16 at 10:30 Docusate Sodium (Colace) 100 mg Q12H PRN PO CONSTIPATION; Start 06/06/16 at 10: 30 Magnesium Hydroxide (Milk Of Mag) 30 ml DAILY PRN PO CONSTIPATION; Start at 10:30 Bisacodyl (Dulcolax) 5 mg DAILY PRN PO CONSTIPATION; Start 06/06/16 at 10:30 Pantoprazole (Protonix Iv) 40 mg DAILY@06 IV Last administered on 06/14/16 06: 42; Admin Dose 40 MG; Start 06/07/16 at 06:00 Enoxaparin Sodium 40 mg 40 mg DAILY SC Last administered on 06/13/16 10:40; Admin Dose 40 MG; Start 06/07/16 at 09:00 Meropenem (Merrem 500 Mg/ 100 ml (Pmx)) 100 ml @ 200 mls/hr Q12 IVPB Last administered on 06/13/16 21:35; Admin Dose 200 MLS/HR; Start 06/06/16 at 13:00 Collagenase (Santyl) 1 applic DAILY TOP Last administered on 06/13/16 10:16; Admin Dose 1 APPLIC; Start 06/07/16 at 09:00 Collagenase (Santyl) 1 applic PRN PRN TOP WOUND CARE; Start 06/06/16 at 16:00 IV Flush (NS 10 ml) 10 ml PRN PRN IV IV PROTOCOL; Start 06/06/16 at 18:30 Ascorbic Acid (Vitamin C) 500 mg DAILY GTB Last administered on 06/09/16 09:07 ; Admin Dose 500 MG; Start 06/07/16 at 09:00 Aspirin (Aspirin) 325 mg DAILY GTB Last administered on 06/09/16 09:06; Admin Dose 325 MG; Start 06/07/16 at 09:00 Multivitamins (Thera-Plus) 5 ml DAILY GTB Last administered on 06/09/16 09:06 ; Admin Dose 5 ML; Start 06/07/16 at 09:00 Tamsulosin HCl (Flomax) 0.4 mg HS PO Last administered on 06/09/16 21:07; Admin Dose 0.4 MG; Start 06/07/16 at 21:00 Zinc Sulfate (Zinc Sulfate) 220 mg DAILY GTB Last administered on 06/09/16 09: 07; Admin Dose 220 MG; Start 06/07/16 at 09:00 Mupirocin (Bactroban) 1 applic BID TOP Last administered on 06/13/16 21:36; Admin Dose 1 APPLIC; Start 06/07/16 at 21:00 Metoclopramide HCl (Reglan) 10 mg Q6H PRN IV NAUSEA AND/OR VOMITING Last administered on 06/08/16 18:00; Admin Dose 10 MG; Start 06/08/16 at 09:30 Atenolol (Tenormin) 25 mg DAILY PO Last administered on 06/09/16 09:07; Admin Dose 25 MG; Start 06/08/16 at 11:30 Lorazepam 1 mg 1 mg Q6H PRN IV AGITATION/ANXIETY Last administered on 08:27; Admin Dose 1 MG; Start 06/09/16 at 13:30 Propofol 100 ml @ 2.25 mls/hr Q12H IV Last administered on 06/13/16 23:29; Admin Dose 4.5 MLS/HR; Start 06/10/16 at 08:00 Fluconazole 100 ml @ 100 mls/hr Q24H IVPB Last administered on 06/13/16 10:05 ; Admin Dose 100 MLS/HR; Start 06/10/16 at 09:00 Dextrose/Sodium Chloride 1,000 ml @ 50 mls/hr Q20H IV Last administered on 22:53; Admin Dose 50 MLS/HR; Start 06/10/16 at 18:00; Status Future Hold Norepinephrine 16 mg/Dextrose 500 ml @ 1.87 mls/hr TITRATE IV ; Start 06/10/16 at 20:30 Total Parenteral Nutrition 1,000 ml @ 40 mls/hr Q24H IV Last administered on 19:28; Admin Dose 40 MLS/HR; Start 06/12/16 at 18:00 Fat Emulsion Intravenous (Liposyn Ii 20%) 500 ml @ 21 mls/hr [id number] IV Last administered on 06/13/16 19:28; Admin Dose 21 MLS/HR; Start 06/12/16 at 18:00 Diagnostic Test (Pha) 1 ea 1 ea Q4 XX Last administered on 06/14/16 05:43; Admin Dose 1 EA; Start 06/12/16 at 17:00 Vancomycin HCl 250 ml @ 125 mls/hr Q24H IVPB Last administered on 06/13/16 12 :51; Admin Dose 125 MLS/HR; Start 06/13/16 at 13:00 Potassium Chloride (KCl 40 MEQ/250 ML NS) 250 ml @ 62.5 mls/hr ONCE ONCE IVPB ; Start 06/14/16 at 10:00; Stop 06/14/16 at 13:59 GERALDINE CUNNINGHAM Apr 19, 2017 09:04
[2016-06-14] MEDS: ASPIRIN 325 MG TAB GTB SCH (09:26)
[2016-06-14] MEDS: ZINC SULFATE 220 MG CAP GTB SCH (09:26)
[2016-06-14] MEDS: FLUCONAZOLE 200 MG/NS (PMX) 100 ML IVPB SCH ×2 (09:26→18:20)
[2016-06-14] MEDS: MULTIVITAMINS 5 ML CUP GTB SCH (09:26)
[2016-06-14] MEDS: MEROPENEM 500 MG/100 ML (PMX) 100 ML IVPB SCH (09:26)
[2016-06-14] MEDS: ATENOLOL 25 MG TAB PO SCH (09:26)
[2016-06-14] MEDS: MUPIROCIN 2% 22 GM OINT TOP SCH ×2 (09:28→20:51)
[2016-06-14] MEDS: COLLAGENASE 30 GM TUBE TOP SCH (09:28)
[2016-06-14] MEDS: ENOXAPARIN 40 MG/0.4 ML SYG SC SCH (09:30)
[2016-06-14] MEDS: ASCORBIC ACID 500 MG TAB GTB SCH (09:51)
[2016-06-14] MEDS ORDERED: POTASSIUM CHLORIDE 250 ML IVPB ONE (10:00)
[2016-06-14] MEDS: LORAZEPAM 2 MG INJ IV PRN (12:34)
[2016-06-14] MEDS: VANCOMYCIN 1 GM in NS 250 ML IVPB SCH (12:38)
--- NOTE | 2016-06-14 12:57 | PN ---
Date/Time of Note Date/Time of Note DATE: 06/14/16 TIME: 12:56 Assessment/Plan Lines/Catheters IV Catheter Type (from [facility]): PICC Line Alfonso in Place (from [facility]): Yes Assessment/Plan Chief Complaint/Hosp Course 1. Contained perforated viscous s/p IR drain 06/11. Cx noted -continue drain -abx per ID -supportive 2. Pneumonia -pulmonary toilette -abx 3. Sepsis, significant leukocytosis -abx -as above 4. Sacral decubitus ulcer -off load -nutrition optimization -vit c -local care 5. Chronic AFib -rate control -optimize electrolytes -tx infections 6. Anemia -monitor 7. Hypoalbuminemia -eventual nutritional optimization 8. CHF -judicious fluid management -cardiac optimization Thank you, Problems: Subjective 24 Hr Interval Summary s/p IR drain 06/11. No f/c. No cough. No sz. No rashes. No bloating. No vomiting. No bleeding. Leukocytosis slowly improving. Exam/Review of Systems Vital Signs Vitals Vital Signs Date Time Temp Pulse Resp B/P Pulse Ox O2 Delivery O2 Flow Rate FiO2 06/14/16 11:00 62 21 100 30 06/14/16 07:00 135/60 06/14/16 04:00 98.1 06/13/16 12:00 Mechanical Ventilator Intake and Output 06/13/16 06/13/16 06/14/16 15:00 23:00 07:00 Intake Total 313.5 ml 468.85 ml Output Total 925 ml 1200 ml 1020 ml Balance -925 ml -886.5 ml -551.15 ml Exam Free Text/Dictation Constitutional: No alert, No distress, No oriented Psych: confusion, No anxiety Head: atraumatic, normocephalic Eyes: PERRL, nl conjunctiva, No icteric ENMT: mucosa pink and moist, nl external ears & nose, nl lips & teeth Neck: jvd (min), non-tender Respiratory: No congested cough, No labored breathing Cardiovascular: No edema, No regular rate and rhythm Gastrointestinal: soft, drain Left side, PEG No distended, No firm, No rebound or guarding Musculoskeletal: No joint tenderness, No nl gait and stance Extremities: No calf tenderness, No cyanosis Neurological: No nl mental status, No nl speech, No nl strength Skin: nl turgor, rash or lesions (Sacral and LE decubitus ulcerations), No diaphoresis Lymph: nl lymph nodes Results Result Diagram: 06/14/16 0410 06/14/16 0410 DAREK AHMADI MD Jun 14, 2016 12:57
--- NOTE | 2016-06-14 13:05 | PN ---
Date/Time of Note Date/Time of Note DATE: 06/14/16 TIME: 13:03 Assessment/Plan VTE Prophylaxis VTE Prophylaxis Intervention: other Lines/Catheters IV Catheter Type (from Nrs): PICC Line Central line still needed: Yes Urinary Cath still in place: Yes Reason Cath still needed: urinary retention, other (indicate) Assessment/Plan Chief Complaint/Hosp Course IMPRESSION: 1. Septic shock.better 2. Pneumonia. aspiration 3. Leukocytosis.better 4. Hematuria. better 5. Lactic acidosis. 6. Respiratory failure. 7. Gastrostomy tube placement. 8. Anemia. 9. Atrial fibrillation. 10. History of congestive heart failure with decreased ejection fraction. 11. vdrf 12. History of paroxysmal atrial fibrillation. 13. The patient now has decubitus. 14 uti 15 In the left anterior mid pelvis there is an approximate 6.3 x 3.2 x 4.7 cm air and fluid collection not definitely bowel suspicious for an abscess/ localized perforation. Diverticula in sigmoid and descending colon. Small amount of ascites. Gastrostomy tube in stomach. Small amount of air in gastric wall which could be secondary to the gastrostomy. No orally administered contrast is seen outside of the intestinal tract. No free pneumoperitoneum is seen. 1.6 cm rounded relatively low density structure in the upper left kidney which could represent a hyperattenuating cyst or solid mass. plan antibiotic per id weaning per pulmonary and cardio surgery consult npo tpn kcl Problems: Subjective 24 Hr Interval Summary Subjective hx not possible: other (on vent stable) Exam/Review of Systems Vital Signs Vitals Vital Signs Date Time Temp Pulse Resp B/P Pulse Ox O2 Delivery O2 Flow Rate FiO2 06/14/16 11:00 62 21 100 30 06/14/16 07:00 135/60 06/14/16 04:00 98.1 06/13/16 12:00 Mechanical Ventilator Intake and Output 06/13/16 06/13/16 06/14/16 15:00 23:00 07:00 Intake Total 313.5 ml 468.85 ml Output Total 925 ml 1200 ml 1020 ml Balance -925 ml -886.5 ml -551.15 ml Exam Neck: supple Respiratory: diminished breath sounds Cardiovascular: regular rate and rhythm Gastrointestinal: bowel sounds (+), soft Results Result Diagram: 06/14/16 0410 06/14/16 041 Results 24 hrs Laboratory Tests Test 06/13/16 17:01 06/13/16 21:49 06/14/16 04:10 06/14/16 09:48 Bedside Glucose 114 142 117 White Blood Count 22.1 H Red Blood Count 2.93 L Hemoglobin 8.6 L Hematocrit 27.2 L Mean Corpuscular Volume 92.8 Mean Corpuscular Hemoglobin 29.4 Mean Corpuscular Hemoglobin Concent 31.6 L Red Cell Distribution Width 15.5 H Platelet Count 177 Mean Platelet Volume 11.4 H Neutrophils % 75.3 Lymphocytes % 8.1 L Monocytes % 1.6 Eosinophils % 0.5 Basophils % 0.3 Nucleated Red Blood Cells % 0.1 H Neutrophils # 16.7 H Lymphocytes # 1.8 Monocytes # 0.4 Eosinophils # 0.1 Basophils # 0.1 Nucleated Red Blood Cells # 0.0 Sodium Level 137 Potassium Level 3.0 L Chloride Level 104 Carbon Dioxide Level 28 Anion Gap 8 Blood Urea Nitrogen 18 Creatinine 0.59 L Glucose Level 111 Calcium Level 6.9 L Phosphorus Level 2.8 Magnesium Level 1.7 Medications Medications Current Medications Flumazenil (Romazicon) 0.2 mg Q1M PRN IV BENZODIAZEPINE OVERDOSE; Start at 10:30 Naloxone HCl (Narcan) 0.4 mg Q3M PRN IV DECREASED REPIRATORY RATE; Start at 10:30 Ondansetron HCl (Zofran Inj) 4 mg Q6H PRN IV NAUSEA AND/OR VOMITING; Start 01/12 at 10:30 Nitroglycerin (Nitroglycerin (Sl Tab) 0.4 Mg) 1 tab Q5M PRN SL CHEST PAIN; Start 06/06/16 at 10:30 Acetaminophen (Tylenol Liquid) 650 mg Q6H PRN PO PAIN LEVEL 1-3 OR FEVER; Start 06/06/16 at 10:30 Morphine Sulfate (morphine) 2 mg Q4H PRN IV PAIN LEVEL 7-10 Last administered on 06/13/16t 20:12; Admin Dose 2 MG; Start 06/06/16 at 10:30 Docusate Sodium (Colace) 100 mg Q12H PRN PO CONSTIPATION; Start 06/06/16 at 10: 30 Magnesium Hydroxide (Milk Of Mag) 30 ml DAILY PRN PO CONSTIPATION; Start at 10:30 Bisacodyl (Dulcolax) 5 mg DAILY PRN PO CONSTIPATION; Start 06/06/16 at 10:30 Pantoprazole (Protonix Iv) 40 mg DAILY@06 IV Last administered on 06/14/16 06: 42; Admin Dose 40 MG; Start 06/07/16 at 06:00 Enoxaparin Sodium 40 mg 40 mg DAILY SC Last administered on 06/14/16 09:30; Admin Dose 40 MG; Start 06/07/16 at 09:00 Meropenem (Merrem 500 Mg/ 100 ml (Pmx)) 100 ml @ 200 mls/hr Q12 IVPB Last administered on 06/14/16 09:26; Admin Dose 200 MLS/HR; Start 06/06/16 at 13:00 Collagenase (Santyl) 1 applic DAILY TOP Last administered on 06/14/16 09:28; Admin Dose 1 APPLIC; Start 06/07/16 at 09:00 Collagenase (Santyl) 1 applic PRN PRN TOP WOUND CARE; Start 06/06/16 at 16:00 IV Flush (NS 10 ml) 10 ml PRN PRN IV IV PROTOCOL; Start 06/06/16 at 18:30 Ascorbic Acid (Vitamin C) 500 mg DAILY GTB Last administered on 06/14/16 09:51 ; Admin Dose 500 MG; Start 06/07/16 at 09:00 Aspirin (Aspirin) 325 mg DAILY GTB Last administered on 06/14/16 09:26; Admin Dose 325 MG; Start 06/07/16 at 09:00 Multivitamins (Thera-Plus) 5 ml DAILY GTB Last administered on 06/14/16 09:26 ; Admin Dose 5 ML; Start 06/07/16 at 09:00 Tamsulosin HCl (Flomax) 0.4 mg HS PO Last administered on 06/09/16 21:07; Admin Dose 0.4 MG; Start 06/07/16 at 21:00 Zinc Sulfate (Zinc Sulfate) 220 mg DAILY GTB Last administered on 06/14/16 09: 26; Admin Dose 220 MG; Start 06/07/16 at 09:00 Mupirocin (Bactroban) 1 applic BID TOP Last administered on 06/14/16 09:28; Admin Dose 1 APPLIC; Start 06/07/16 at 21:00 Metoclopramide HCl (Reglan) 10 mg Q6H PRN IV NAUSEA AND/OR VOMITING Last administered on 06/08/16 18:00; Admin Dose 10 MG; Start 06/08/16 at 09:30 Atenolol (Tenormin) 25 mg DAILY PO Last administered on 06/14/16 09:26; Admin Dose 25 MG; Start 06/08/16 at 11:30 Lorazepam 1 mg 1 mg Q6H PRN IV AGITATION/ANXIETY Last administered on 12:34; Admin Dose 1 MG; Start 06/09/16 at 13:30 Propofol 100 ml @ 2.25 mls/hr Q12H IV Last administered on 06/13/16 23:29; Admin Dose 4.5 MLS/HR; Start 06/10/16 at 08:00 Fluconazole 100 ml @ 100 mls/hr Q24H IVPB Last administered on 06/14/16 09:26 ; Admin Dose 100 MLS/HR; Start 06/10/16 at 09:00 Dextrose/Sodium Chloride 1,000 ml @ 50 mls/hr Q20H IV Last administered on 22:53; Admin Dose 50 MLS/HR; Start 06/10/16 at 18:00; Status Future Hold Norepinephrine 16 mg/Dextrose 500 ml @ 1.87 mls/hr TITRATE IV ; Start 06/10/16 at 20:30 Total Parenteral Nutrition 1,000 ml @ 40 mls/hr Q24H IV Last administered on 19:28; Admin Dose 40 MLS/HR; Start 06/12/16 at 18:00 Fat Emulsion Intravenous (Liposyn Ii 20%) 500 ml @ 21 mls/hr [id number] IV Last administered on 06/13/16 19:28; Admin Dose 21 MLS/HR; Start 06/12/16 at 18:00 Diagnostic Test (Pha) 1 ea 1 ea Q4 XX Last administered on 06/14/16 09:51; Admin Dose 1 EA; Start 06/12/16 at 17:00 Vancomycin HCl 250 ml @ 125 mls/hr Q24H IVPB Last administered on 06/14/16 12 :38; Admin Dose 125 MLS/HR; Start 06/13/16 at 13:00 Potassium Chloride (KCl 40 MEQ/250 ML NS) 250 ml @ 62.5 mls/hr ONCE ONCE IVPB ; Start 06/14/16 at 10:00; Stop 06/14/16 at 13:59 HOLLI LINDER MD Jun 14, 2016 13:05
--- NOTE | 2016-06-14 14:00 | CONS ---
Date/Time of Note Date/Time of Note DATE: 06/14/16 TIME: 13:52 Assessment/Plan Assessment/Plan Chief Complaint/Hosp Course IMp: 1.CHF-systolic acute on chonic-reasonable volume status at this time 2.Resp failure s/p trach on vent 3.Cardiomyopathy-LVEF 25-30% 4.HTN-with episodes of borderline Hotn 5.PPM-s/p interrogation with proper function-episodes of SVT and shot episode VT 06/09/16/good battery life 6.Leukocytosis 7.Tachycardia-PAF 8.Perforated viscous s/p IR drain placement Recc: -Tele -Follow BP/Volume status closely -Continue abx's and f/u cx data -Continue atenolol as tolerated/possible only -Continue asa/low dose lovenox -Continue abx's/f/u cx data -Follow IR drainage output Problems: Consultation Date/Type/Reason Admit Date/Time Jun 06, 2016 at 08:08 Initial Consult Date 06/07/16 Type of Consultation: Cardiology Reason for Consultation PAFL/cardiomyopathy Referring Provider: HOLLI LINDER MD Exam/Review of Systems Vital Signs Vitals Vital Signs Date Time Temp Pulse Resp B/P Pulse Ox O2 Delivery O2 Flow Rate FiO2 06/14/16 13:00 74 22 126/74 99 Mechanical Ventilator Nasal Cannula 06/14/16 12:00 98.1 06/14/16 11:00 30 Intake and Output 06/13/16 06/13/16 06/14/16 15:00 23:00 07:00 Intake Total 313.5 ml 468.85 ml Output Total 925 ml 1200 ml 1020 ml Balance -925 ml -886.5 ml -551.15 ml Exam Review of Systems: CONSTITUTIONAL: No fevers, chills. PULMONARY: intubated CARDIOVASCULAR: No obvious chest pain/palpitations GASTROINTESTINAL: No nausea/vomiting. GENITOURINARY: No hematuria/dysuria. MUSCULOSKELETAL: No obvious myagias/arthalgias. PSYCHIATRIC: The patient denies depression. NEUROLOGIC: sedated Constitutional: other (sedated) Head: normocephalic ENMT: mucosa pink and moist Neck: jvd (9 cm water), supple Respiratory: diminished breath sounds (at bases/B) Cardiovascular: regular rate and rhythm Gastrointestinal: non-tender, soft Musculoskeletal: muscle tone Extremities: edema (none) Neurological: other (sedated) Results Result Diagram: 06/14/16 0410 06/14/16 0410 Results 24 hrs Laboratory Tests Test 06/13/16 17:01 06/13/16 21:49 06/14/16 04:10 06/14/16 09:48 Bedside Glucose 114 142 117 White Blood Count 22.1 H Red Blood Count 2.93 L Hemoglobin 8.6 L Hematocrit 27.2 L Mean Corpuscular Volume 92.8 Mean Corpuscular Hemoglobin 29.4 Mean Corpuscular Hemoglobin Concent 31.6 L Red Cell Distribution Width 15.5 H Platelet Count 177 Mean Platelet Volume 11.4 H Neutrophils % 75.3 Lymphocytes % 8.1 L Monocytes % 1.6 Eosinophils % 0.5 Basophils % 0.3 Nucleated Red Blood Cells % 0.1 H Neutrophils # 16.7 H Lymphocytes # 1.8 Monocytes # 0.4 Eosinophils # 0.1 Basophils # 0.1 Nucleated Red Blood Cells # 0.0 Sodium Level 137 Potassium Level 3.0 L Chloride Level 104 Carbon Dioxide Level 28 Anion Gap 8 Blood Urea Nitrogen 18 Creatinine 0.59 L Glucose Level 111 Calcium Level 6.9 L Phosphorus Level 2.8 Magnesium Level 1.7 Medications Medications Current Medications Flumazenil (Romazicon) 0.2 mg Q1M PRN IV BENZODIAZEPINE OVERDOSE; Start at 10:30 Naloxone HCl (Narcan) 0.4 mg Q3M PRN IV DECREASED REPIRATORY RATE; Start at 10:30 Ondansetron HCl (Zofran Inj) 4 mg Q6H PRN IV NAUSEA AND/OR VOMITING; Start 01/12 at 10:30 Nitroglycerin (Nitroglycerin (Sl Tab) 0.4 Mg) 1 tab Q5M PRN SL CHEST PAIN; Start 06/06/16 at 10:30 Acetaminophen (Tylenol Liquid) 650 mg Q6H PRN PO PAIN LEVEL 1-3 OR FEVER; Start 06/06/16 at 10:30 Morphine Sulfate (morphine) 2 mg Q4H PRN IV PAIN LEVEL 7-10 Last administered on 06/13/16t 20:12; Admin Dose 2 MG; Start 06/06/16 at 10:30 Docusate Sodium (Colace) 100 mg Q12H PRN PO CONSTIPATION; Start 06/06/16 at 10: 30 Magnesium Hydroxide (Milk Of Mag) 30 ml DAILY PRN PO CONSTIPATION; Start at 10:30 Bisacodyl (Dulcolax) 5 mg DAILY PRN PO CONSTIPATION; Start 06/06/16 at 10:30 Pantoprazole (Protonix Iv) 40 mg DAILY@06 IV Last administered on 06/14/16 06: 42; Admin Dose 40 MG; Start 06/07/16 at 06:00 Enoxaparin Sodium 40 mg 40 mg DAILY SC Last administered on 06/14/16 09:30; Admin Dose 40 MG; Start 06/07/16 at 09:00 Meropenem (Merrem 500 Mg/ 100 ml (Pmx)) 100 ml @ 200 mls/hr Q12 IVPB Last administered on 06/14/16 09:26; Admin Dose 200 MLS/HR; Start 06/06/16 at 13:00 Collagenase (Santyl) 1 applic DAILY TOP Last administered on 06/14/16 09:28; Admin Dose 1 APPLIC; Start 06/07/16 at 09:00 Collagenase (Santyl) 1 applic PRN PRN TOP WOUND CARE; Start 06/06/16 at 16:00 IV Flush (NS 10 ml) 10 ml PRN PRN IV IV PROTOCOL; Start 06/06/16 at 18:30 Ascorbic Acid (Vitamin C) 500 mg DAILY GTB Last administered on 06/14/16 09:51 ; Admin Dose 500 MG; Start 06/07/16 at 09:00 Aspirin (Aspirin) 325 mg DAILY GTB Last administered on 06/14/16 09:26; Admin Dose 325 MG; Start 06/07/16 at 09:00 Multivitamins (Thera-Plus) 5 ml DAILY GTB Last administered on 06/14/16 09:26 ; Admin Dose 5 ML; Start 06/07/16 at 09:00 Tamsulosin HCl (Flomax) 0.4 mg HS PO Last administered on 06/09/16 21:07; Admin Dose 0.4 MG; Start 06/07/16 at 21:00 Zinc Sulfate (Zinc Sulfate) 220 mg DAILY GTB Last administered on 06/14/16 09: 26; Admin Dose 220 MG; Start 06/07/16 at 09:00 Mupirocin (Bactroban) 1 applic BID TOP Last administered on 06/14/16 09:28; Admin Dose 1 APPLIC; Start 06/07/16 at 21:00 Metoclopramide HCl (Reglan) 10 mg Q6H PRN IV NAUSEA AND/OR VOMITING Last administered on 06/08/16 18:00; Admin Dose 10 MG; Start 06/08/16 at 09:30 Atenolol (Tenormin) 25 mg DAILY PO Last administered on 06/14/16 09:26; Admin Dose 25 MG; Start 06/08/16 at 11:30 Lorazepam 1 mg 1 mg Q6H PRN IV AGITATION/ANXIETY Last administered on 12:34; Admin Dose 1 MG; Start 06/09/16 at 13:30 Propofol 100 ml @ 2.25 mls/hr Q12H IV Last administered on 06/13/16 23:29; Admin Dose 4.5 MLS/HR; Start 06/10/16 at 08:00 Fluconazole 100 ml @ 100 mls/hr Q24H IVPB Last administered on 06/14/16 09:26 ; Admin Dose 100 MLS/HR; Start 06/10/16 at 09:00 Dextrose/Sodium Chloride 1,000 ml @ 50 mls/hr Q20H IV Last administered on 22:53; Admin Dose 50 MLS/HR; Start 06/10/16 at 18:00; Status Future Hold Norepinephrine 16 mg/Dextrose 500 ml @ 1.87 mls/hr TITRATE IV ; Start 06/10/16 at 20:30 Total Parenteral Nutrition 1,000 ml @ 40 mls/hr Q24H IV Last administered on 19:28; Admin Dose 40 MLS/HR; Start 06/12/16 at 18:00 Fat Emulsion Intravenous (Liposyn Ii 20%) 500 ml @ 21 mls/hr [id number] IV Last administered on 06/13/16 19:28; Admin Dose 21 MLS/HR; Start 06/12/16 at 18:00 Diagnostic Test (Pha) 1 ea 1 ea Q4 XX Last administered on 06/14/16 09:51; Admin Dose 1 EA; Start 06/12/16 at 17:00 Vancomycin HCl 250 ml @ 125 mls/hr Q24H IVPB Last administered on 4/19/17at 12 :38; Admin Dose 125 MLS/HR; Start 06/13/16 at 13:00 Potassium Chloride (KCl 40 MEQ/250 ML NS) 250 ml @ 62.5 mls/hr ONCE ONCE IVPB ; Start 06/14/16 at 10:00; Stop 06/14/16 at 13:59 JAYA GORE Jun 14, 2016 14:00
--- NOTE | 2016-06-14 14:34 | CONS ---
DATE OF ADMISSION: 06/06/2016 DATE OF CONSULTATION: 06/14/2016 HISTORY OF PRESENT ILLNESS: This is an unfortunate 85-year-old gentleman who is in the intensive ca re unit at [facility] [place] [facility] who is chronically PEG trached, who came in [facility] who comes in in septic shock, presumably secondary to HCAP. The patient presents with the physical examination and laboratory tests consistent with septic shock, including leukocyt osis, hypotension, atrial fibrillation, presumed to be secondary to septic shock. He has had a rece nt hospitalization for respiratory failure and congestive heart failure. He has an EF of less than 30%. The patient was admitted to the intensive care unit on 06/06/2016. I consulted on this gentle man on 06/09/2016. MEDICATIONS: Please refer to reconciliation sheet. ALLERGIES: NO KNOWN DRUG ALLERGIES. MAJOR MEDICAL PROBLEMS IN THE PAST: Extensive, including history of chronic PEG, trach, anemia of chronic disease, atrial fibrillation, congestive heart failure, recent bout of sepsis. SOCIAL HISTORY: Lives in a subacute facility. FAMILY HISTORY: Unknown. REVIEW OF SYSTEMS: Cannot be obtained. PHYSICAL EXAMINATION: GENERAL: Shows an ashen-appearing elderly gentleman who is minimally responsive to verbal stimulati on. VITAL SIGNS: Blood pressure of 126/74, pulse is 74 and regular, respirations of 22, temperature 98. 1 degrees, 99% saturation on 30% FIO2. HEENT: Normocephalic and atraumatic. Anicteric, acyanotic. CHEST: Shows bilateral distant inspiratory and expiratory breath sounds, rhonchi throughout both nubia ng nickerson. COR: S1, S2, rapid rate. Difficult to ascertain rhythm, but irregular rhythm. ABDOMEN: Grossly benign. PALLIATIVE CARE ISSUES: 1. This is an elderly gentleman with respiratory failure, recurrent pneumonia, second hospitalizati on within a short period of time with hospital-acquired pneumonia. Other issues with this gentleman includes from a palliative care standpoint, at this time there are no family members who are immedi ately available to speak on his behalf. My understanding is that one son mentioned that he wanted h is father to stay alive, per the father's prior request, but I have no documentation of that. The p atient is currently a CHEMICAL CODE ONLY, participants none. For background and social history, ple ase refer to the above. It is difficult to ascertain if the patient understands the gravity of his current medical issues, hope, successful quality of life has been deferred, fears, concerns and wor sanchez have been deferred, strength low with spirituality deferred, culture which was deferred, commun ication preferences deferred until I speak with family members in more detail. When a family conference is set up, we will discuss goals of care in spite of the fact that patient is a CHEMICAL CODE ONLY. His overall prognosis is extremely poor with a PPS of less than 10%. Dictated By: HENRY GUPTA MD LP/NTS Conf#: [id number] DID#: [id number]
--- NOTE | 2016-06-14 17:17 | PN ---
DATE: 06/14/2016 SUBJECTIVE: No acute changes. The patient is awake, looks comfortable, no fevers. WBC today 22.1, platelets 177, neutrophils 75.3, BUN 18, creatinine 0.59. MICROBIOLOGY: Intra-abdominal fluid collection growing alpha hemolytic strep species, enterococcus, Klebsiella, multi-drug resistant. INDWELLINGS: Trach, PEG, Alfonso, PICC line, and left intra-abdominal catheter. ANTIMICROBIALS: The patient is on 1. Fluconazole. 2. IV vancomycin. 3. Meropenem. OBJECTIVE: GENERAL: This is a chronically ill-appearing, elderly man who is lethargic but more awake today. T he patient is in no distress. HEENT: Head atraumatic, normocephalic. Sclerae anicteric. Buccal mucosa dry. NECK: Supple. Tracheostomy present. CHEST: Rise symmetrical. Breath sounds diminished to bases. HEART: S1, S2. ABDOMEN: Soft, bowel tones present. EXTREMITIES: No cyanosis. Bilateral trace edema. ASSESSMENT: 1. Sepsis, status post shock. 2. Perforated viscus status post CT-guided drainage placement with cultures growing multi-drug resi stant organisms. 3. Status post methicillin-resistant Staphylococcus aureus bacteremia on admission. 4. Enterococcal urinary tract infection. 5. Chronic respiratory failure. 6. Dysphagia. 7. Healthcare-associated pneumonia. PLAN: The patient remains hemodynamically stable. White blood cell count tracing down. He is grow ing multi-drug resistant organisms from his abdominal fluid cultures. We are going to change antibi otics to IV colistin to cover Klebsiella pneumoniae, Carbapenem-resistant bacteria that he is growin g in his abdominal fluid, add Flagyl for anaerobic coverage, change vancomycin to Zyvox to preserve renal function, and add Flagyl for Bacteroides fragilis. Monitor renal function. Follow recommenda tions of consultants. Dictated By: JOSE G CUNNINGHAM SQUEAK [employer] REPAIRER for RASHIDA CAMPBELL MD NI/NTS Conf#: [id number] DID#: [id number]
[2016-06-14] MEDS: metroNIDAZOLE 500 MG/NS (PMX) 100 ML IVPB SCH ×2 (18:00→23:30)
[2016-06-14] MEDS: FAT EMULSION 20% 500 ML IV SCH (18:03)
[2016-06-14] MEDS: TPN 1,000 ML IV SCH (18:03)
[2016-06-14] MEDS: TAMSULOSIN (SR) 0.4 MG CAP PO SCH (20:51)
[2016-06-14] MEDS: COLISTIMETHATE 75 MG in SOD CHLORIDE 0.9% 100 ML IVPB SCH (21:00)
[2016-06-14] MEDS: LINEZOLID 600 MG/D5W (PMX) 300 ML IVPB SCH (21:30)
[2016-06-15] VITALS (36 sets, daily range): BP systolic 99–155; BP diastolic 41–121; PULSE 60–99; RESP 18–31
[2016-06-15] MEDS: morphine 2 MG INJ IV PRN (00:22)
[2016-06-15] MEDS: ACCU-CHEK XX SCH ×6 (00:36→21:17)
[2016-06-15] MEDS: IPRATROPIUM (HFA) 12.9 GM INHALER INH SCH ×6 (01:56→21:21)
[2016-06-15] MEDS: ALBUTEROL 18 GM INHALER INH SCH ×6 (01:56→21:21)
[2016-06-15 04:46] LABS: ADD SCAN DIFF NO
[2016-06-15 04:55] LABS: ABNORMAL IP MESSAGE 1; BASOPHIL # 0.1 10^3/ul (0.0-0.1); BASOPHILS % 0.4 % (0.0-2.0); EOSINOPHILS # 0.3 10^3/ul (0.0-0.5); EOSINOPHILS % 1.2 % (0.0-7.0); HEMOGLOBIN 8.9 g/dl (14.0-18.0); LYMPHOCYTES # 1.7 10^3/ul (0.8-2.9); LYMPHOCYTES % 8.1 % (15.0-51.0); MEAN CORPUSCULAR HGB CONC 31.8 g/dl (32.0-37.0); MEAN CORPUSCULAR VOLUME 94.3 fl (82.0-101.0); MEAN PLATELET VOLUME 11.2 fl (7.4-10.4); MONOCYTE # 0.6 10^3/ul (0.3-0.9); NEUTROPHIL # 15.3 10^3/ul (1.6-7.5); NEUTROPHILS % 73.2 % (39.0-77.0); PLATELET COUNT 173 10^3/UL (140-415); RED BLOOD COUNT 2.97 10^6/ul (4.70-6.10); RED CELL DISTRIBUTION WIDTH 15.9 % (11.5-14.5); WHITE BLOOD COUNT 20.8 10^3/ul (4.8-10.8)
[2016-06-15] MEDS: PANTOPRAZOLE 40 MG INJ IV SCH (05:09)
[2016-06-15 05:24] LABS: POTASSIUM 3.5 mmol/L (3.5-5.1)
[2016-06-15 05:26] LABS: ALBUMIN/GLOBULIN RATIO 0.71; BILIRUBIN,INDIRECT 0.2 mg/dl (0-1.1); BILIRUBIN,TOTAL 0.2 mg/dl (0.2-1.3); CREATININE 0.57 mg/dl (0.61-1.24); TOTAL PROTEIN 4.8 g/dl (6.1-8.1)
[2016-06-15 05:27] LABS: CALCIUM 7.1 mg/dl (8.4-10.2)
[2016-06-15] MEDS: metroNIDAZOLE 500 MG/NS (PMX) 100 ML IVPB SCH ×3 (05:33→17:26)
[2016-06-15] MEDS: FAT EMULSION 20% 500 ML IV SCH (06:11)
[2016-06-15] MEDS: COLISTIMETHATE 75 MG in SOD CHLORIDE 0.9% 100 ML IVPB SCH ×2 (09:42→21:18)
[2016-06-15] MEDS: ASCORBIC ACID 500 MG TAB GTB SCH (09:43)
[2016-06-15] MEDS: ASPIRIN 325 MG TAB GTB SCH (09:43)
[2016-06-15] MEDS: LINEZOLID 600 MG/D5W (PMX) 300 ML IVPB SCH ×2 (09:43→21:27)
[2016-06-15] MEDS: ZINC SULFATE 220 MG CAP GTB SCH (09:44)
[2016-06-15] MEDS: ATENOLOL 25 MG TAB PO SCH (09:44)
[2016-06-15] MEDS: MULTIVITAMINS 5 ML CUP GTB SCH (09:44)
[2016-06-15] MEDS: ENOXAPARIN 40 MG/0.4 ML SYG SC SCH (09:46)
[2016-06-15] MEDS: MUPIROCIN 2% 22 GM OINT TOP SCH ×2 (09:52→21:09)
[2016-06-15] MEDS: COLLAGENASE 30 GM TUBE TOP SCH (09:52)
--- NOTE | 2016-06-15 10:41 | CONS ---
Date/Time of Note Date/Time of Note DATE: 06/15/16 TIME: 10:40 Consult Date/Type/Reason Admit Date/Time Jun 06, 2016 at 08:08 Initial Consult Date 06/07/16 Type of Consultation: pulmonary ICU Ordering Provider: HOLLI LINDER MD Subjective Patient continues mechanical ventilation Neurologically unchanged Remains hemodynamically stable Discussed with respiratory staff evidence of cuff leak Objective Vital Signs Date Time Temp Pulse Resp B/P Pulse Ox O2 Delivery O2 Flow Rate FiO2 06/15/16 08:00 64 06/15/16 07:00 26 125/58 97 Mechanical Ventilator 06/15/16 05:49 30 06/15/16 04:00 98.1 Intake and Output 06/14/16 06/14/16 06/15/16 15:00 23:00 07:00 Intake Total 700.0 ml 1515 ml 688 ml Output Total 30 ml 2505 ml 1220 ml Balance 670.0 ml -990 ml -532 ml Exam PHYSICAL EXAMINATION GENERAL: Elderly gentleman, on mechanical ventilation via tracheostomy VITAL SIGNS: see below. HEENT: Pupils equal, round, and reactive to light. Tracheostomy site clean and intact. CARDIAC: S1, S2, tachycardia. CHEST: Diminished air entry bilaterally. Rales bilaterally ABDOMEN: Mildly distended. Decreased bowel sounds no guarding or rebound EXTREMITIES: No cyanosis, clubbing edema +1 NEUROLOGIC: Unable to assess Results/Medications Result Diagram: 06/15/16 0330 06/15/16 0330 Results 24 hrs Laboratory Tests Test 06/14/16 17:37 06/14/16 20:52 06/15/16 00:36 06/15/16 03:30 Bedside Glucose 114 121 139 White Blood Count 20.8 H Red Blood Count 2.97 L Hemoglobin 8.9 L Hematocrit 28.0 L Mean Corpuscular Volume 94.3 Mean Corpuscular Hemoglobin 30.0 Mean Corpuscular Hemoglobin Concent 31.8 L Red Cell Distribution Width 15.9 H Platelet Count 173 Mean Platelet Volume 11.2 H Neutrophils % 73.2 Lymphocytes % 8.1 L Monocytes % 3.0 Eosinophils % 1.2 Basophils % 0.4 Nucleated Red Blood Cells % 0.0 Neutrophils # 15.3 H Lymphocytes # 1.7 Monocytes # 0.6 Eosinophils # 0.3 Basophils # 0.1 Nucleated Red Blood Cells # 0.0 Sodium Level 136 Potassium Level 3.5 Chloride Level 101 Carbon Dioxide Level 26 Anion Gap 13 Blood Urea Nitrogen 16 Creatinine 0.57 L Glucose Level 92 Calcium Level 7.1 L Total Bilirubin 0.2 Direct Bilirubin 0.00 Indirect Bilirubin 0.2 Aspartate Amino Transf (AST/SGOT) 24 Alanine Aminotransferase (ALT/SGPT) 27 Alkaline Phosphatase 45 Total Protein 4.8 L Albumin 2.0 L Globulin 2.80 Albumin/Globulin Ratio 0.71 Test 06/15/16 05:10 06/15/16 10:02 Bedside Glucose 110 95 Medications Current Medications Naloxone HCl (Narcan) 0.4 mg Q3M PRN IV DECREASED REPIRATORY RATE; Start at 10:30 Ondansetron HCl (Zofran Inj) 4 mg Q6H PRN IV NAUSEA AND/OR VOMITING; Start 01/12 at 10:30 Nitroglycerin (Nitroglycerin (Sl Tab) 0.4 Mg) 1 tab Q5M PRN SL CHEST PAIN; Start 06/06/16 at 10:30 Acetaminophen (Tylenol Liquid) 650 mg Q6H PRN PO PAIN LEVEL 1-3 OR FEVER; Start 06/06/16 at 10:30 Morphine Sulfate (morphine) 2 mg Q4H PRN IV PAIN LEVEL 7-10 Last administered on 06/15/16 00:22; Admin Dose 2 MG; Start 06/06/16 at 10:30 Docusate Sodium (Colace) 100 mg Q12H PRN PO CONSTIPATION; Start 06/06/16 at 10: 30 Magnesium Hydroxide (Milk Of Mag) 30 ml DAILY PRN PO CONSTIPATION; Start at 10:30 Bisacodyl (Dulcolax) 5 mg DAILY PRN PO CONSTIPATION; Start 06/06/16 at 10:30 Pantoprazole (Protonix Iv) 40 mg DAILY@06 IV Last administered on 06/15/16 05: 09; Admin Dose 40 MG; Start 06/07/16 at 06:00 Enoxaparin Sodium (Lovenox) 40 mg DAILY SC Last administered on 06/15/16 09:46 ; Admin Dose 40 MG; Start 06/07/16 at 09:00 Collagenase (Santyl) 1 applic DAILY TOP Last administered on 06/15/16 09:52; Admin Dose 1 APPLIC; Start 06/07/16 at 09:00 Collagenase (Santyl) 1 applic PRN PRN TOP WOUND CARE; Start 06/06/16 at 16:00 IV Flush (NS 10 ml) 10 ml PRN PRN IV IV PROTOCOL; Start 06/06/16 at 18:30 Ascorbic Acid (Vitamin C) 500 mg DAILY GTB Last administered on 06/15/16 09:43 ; Admin Dose 500 MG; Start 06/07/16 at 09:00 Aspirin (Aspirin) 325 mg DAILY GTB Last administered on 06/15/16 09:43; Admin Dose 325 MG; Start 06/07/16 at 09:00 Multivitamins (Thera-Plus) 5 ml DAILY GTB Last administered on 06/15/16 09:44 ; Admin Dose 5 ML; Start 06/07/16 at 09:00 Tamsulosin HCl (Flomax) 0.4 mg HS PO Last administered on 06/14/16 20:51; Admin Dose 0.4 MG; Start 06/07/16 at 21:00 Zinc Sulfate (Zinc Sulfate) 220 mg DAILY GTB Last administered on 06/15/16 09: 44; Admin Dose 220 MG; Start 06/07/16 at 09:00 Mupirocin (Bactroban) 1 applic BID TOP Last administered on 06/15/16 09:52; Admin Dose 1 APPLIC; Start 06/07/16 at 21:00 Metoclopramide HCl (Reglan) 10 mg Q6H PRN IV NAUSEA AND/OR VOMITING Last administered on 06/08/16 18:00; Admin Dose 10 MG; Start 06/08/16 at 09:30 Atenolol (Tenormin) 25 mg DAILY PO Last administered on 06/15/16 09:44; Admin Dose 25 MG; Start 06/08/16 at 11:30 Lorazepam 1 mg 1 mg Q6H PRN IV AGITATION/ANXIETY Last administered on 12:34; Admin Dose 1 MG; Start 06/09/16 at 13:30 Fluconazole 100 ml @ 100 mls/hr Q24H IVPB Last administered on 06/14/16 18:20 ; Admin Dose 100 MLS/HR; Start 06/10/16 at 09:00 Total Parenteral Nutrition 1,000 ml @ 40 mls/hr Q24H IV Last administered on 4 /19/17at 18:03; Admin Dose 40 MLS/HR; Start 06/12/16 at 18:00 Fat Emulsion Intravenous (Liposyn Ii 20%) 500 ml @ 21 mls/hr [id number] IV Last administered on 06/15/16 06:11; Admin Dose 21 MLS/HR; Start 06/12/16 at 18:00 Diagnostic Test (Pha) 1 ea 1 ea Q4 XX Last administered on 06/15/16 09:00; Admin Dose 1 EA; Start 06/12/16 at 17:00 Linezolid 300 ml @ 300 mls/hr Q12 IVPB Last administered on 06/15/16 09:43; Admin Dose 300 MLS/HR; Start 06/14/16 at 21:00 Colistimethate Sodium 75 mg/ Sodium Chloride 100 ml @ 200 mls/hr Q12 IVPB Last administered on 06/15/16 09:42; Admin Dose 200 MLS/HR; Start 06/14/16 at 21:00 Metronidazole (Flagyl 500 Mg (Pmx)) 100 ml @ 100 mls/hr Q6 IVPB Last administered on 06/15/16 05:33; Admin Dose 100 MLS/HR; Start 06/14/16 at 18:00 Assessment/Plan Chief Complaint/Hosp Course Assessment 1. Vent dependent respiratory failure with evidence of healthcare associated pneumonia 2. Status post bowel perforation with drainage, persistent leukocytosis 3. Persistent leukocytosis sepsis 4. Chronic atrial fibrillation 5. Decubitus ulcers 6. Dysphagia with G-tube 7. Anemia likely of chronic disease Plan 1. Continue mechanical ventilation tracheostomy change 2. Continue broad-spectrum antibiotics per infectious diseases 3. Surgical recommendations 4. Palliative care consult pending 5. DVT and GI prophylaxis Disposition Transfer to telemetry [facility] Critical care time 35 minutes Problems: KAVON TROY MD, [facility] Jun 15, 2016 10:41
--- NOTE | 2016-06-15 11:01 | CONS ---
Date/Time of Note Date/Time of Note DATE: 06/15/16 TIME: 10:58 Assessment/Plan Assessment/Plan Chief Complaint/Hosp Course IMp: 1.CHF-systolic acute on chonic-reasonable volume status at this time 2.Resp failure s/p trach on vent 3.Cardiomyopathy-LVEF 25-30% 4.HTN-with episodes of borderline Hotn 5.PPM-s/p interrogation with proper function-episodes of SVT and shot episode VT 06/09/16/good battery life 6.Leukocytosis 7.Tachycardia-PAF 8.Perforated viscous s/p IR drain placement Recc: -Tele -Follow BP/Volume status closely -Continue abx's and f/u cx data -Continue atenolol as tolerated/possible only -Continue asa/low dose lovenox -Continue abx's/f/u cx data -Follow IR drainage output Problems: Consultation Date/Type/Reason Admit Date/Time Jun 06, 2016 at 08:08 Initial Consult Date 06/07/16 Type of Consultation: Cardiology Reason for Consultation CHF/cardiomyopathy Referring Provider: HOLLI LINDER MD Exam/Review of Systems Vital Signs Vitals Vital Signs Date Time Temp Pulse Resp B/P Pulse Ox O2 Delivery O2 Flow Rate FiO2 06/15/16 08:00 64 06/15/16 07:00 26 125/58 97 Mechanical Ventilator 06/15/16 05:49 30 06/15/16 04:00 98.1 Intake and Output 06/14/16 06/14/16 06/15/16 15:00 23:00 07:00 Intake Total 700.0 ml 1515 ml 688 ml Output Total 30 ml 2505 ml 1220 ml Balance 670.0 ml -990 ml -532 ml Exam Review of Systems: CONSTITUTIONAL: No fevers, chills. PULMONARY: trached CARDIOVASCULAR: No obvious chest pain/palpitations GASTROINTESTINAL: No nausea/vomiting. GENITOURINARY: No hematuria/dysuria. MUSCULOSKELETAL: No obvious myagias/arthalgias. PSYCHIATRIC: The patient denies depression. NEUROLOGIC: Encephalopathic Constitutional: other (sleeping) Psych: no complaints ENMT: mucosa pink and moist Neck: other (tracehd) Respiratory: diminished breath sounds Cardiovascular: regular rate and rhythm Gastrointestinal: non-tender, soft Musculoskeletal: muscle tone (normal) Extremities: edema (trace/B) Neurological: other (No focal deficits) Results Result Diagram: 06/15/16 0330 06/15/16 0330 Results 24 hrs Laboratory Tests Test 06/14/16 17:37 06/14/16 20:52 06/15/16 00:36 06/15/16 03:30 Bedside Glucose 114 121 139 White Blood Count 20.8 H Red Blood Count 2.97 L Hemoglobin 8.9 L Hematocrit 28.0 L Mean Corpuscular Volume 94.3 Mean Corpuscular Hemoglobin 30.0 Mean Corpuscular Hemoglobin Concent 31.8 L Red Cell Distribution Width 15.9 H Platelet Count 173 Mean Platelet Volume 11.2 H Neutrophils % 73.2 Lymphocytes % 8.1 L Monocytes % 3.0 Eosinophils % 1.2 Basophils % 0.4 Nucleated Red Blood Cells % 0.0 Neutrophils # 15.3 H Lymphocytes # 1.7 Monocytes # 0.6 Eosinophils # 0.3 Basophils # 0.1 Nucleated Red Blood Cells # 0.0 Sodium Level 136 Potassium Level 3.5 Chloride Level 101 Carbon Dioxide Level 26 Anion Gap 13 Blood Urea Nitrogen 16 Creatinine 0.57 L Glucose Level 92 Calcium Level 7.1 L Total Bilirubin 0.2 Direct Bilirubin 0.00 Indirect Bilirubin 0.2 Aspartate Amino Transf (AST/SGOT) 24 Alanine Aminotransferase (ALT/SGPT) 27 Alkaline Phosphatase 45 Total Protein 4.8 L Albumin 2.0 L Globulin 2.80 Albumin/Globulin Ratio 0.71 Test 06/15/16 05:10 06/15/16 10:02 Bedside Glucose 110 95 Medications Medications Current Medications Naloxone HCl (Narcan) 0.4 mg Q3M PRN IV DECREASED REPIRATORY RATE; Start at 10:30 Ondansetron HCl (Zofran Inj) 4 mg Q6H PRN IV NAUSEA AND/OR VOMITING; Start 01/12 at 10:30 Nitroglycerin (Nitroglycerin (Sl Tab) 0.4 Mg) 1 tab Q5M PRN SL CHEST PAIN; Start 06/06/16 at 10:30 Acetaminophen (Tylenol Liquid) 650 mg Q6H PRN PO PAIN LEVEL 1-3 OR FEVER; Start 06/06/16 at 10:30 Morphine Sulfate (morphine) 2 mg Q4H PRN IV PAIN LEVEL 7-10 Last administered on 06/15/16t 00:22; Admin Dose 2 MG; Start 06/06/16 at 10:30 Docusate Sodium (Colace) 100 mg Q12H PRN PO CONSTIPATION; Start 06/06/16 at 10: 30 Magnesium Hydroxide (Milk Of Mag) 30 ml DAILY PRN PO CONSTIPATION; Start at 10:30 Bisacodyl (Dulcolax) 5 mg DAILY PRN PO CONSTIPATION; Start 06/06/16 at 10:30 Pantoprazole (Protonix Iv) 40 mg DAILY@06 IV Last administered on 06/15/16 05: 09; Admin Dose 40 MG; Start 06/07/16 at 06:00 Enoxaparin Sodium (Lovenox) 40 mg DAILY SC Last administered on 06/15/16 09:46 ; Admin Dose 40 MG; Start 06/07/16 at 09:00 Collagenase (Santyl) 1 applic DAILY TOP Last administered on 06/15/16 09:52; Admin Dose 1 APPLIC; Start 06/07/16 at 09:00 Collagenase (Santyl) 1 applic PRN PRN TOP WOUND CARE; Start 06/06/16 at 16:00 IV Flush (NS 10 ml) 10 ml PRN PRN IV IV PROTOCOL; Start 06/06/16 at 18:30 Ascorbic Acid (Vitamin C) 500 mg DAILY GTB Last administered on 06/15/16 09:43 ; Admin Dose 500 MG; Start 06/07/16 at 09:00 Aspirin (Aspirin) 325 mg DAILY GTB Last administered on 06/15/16 09:43; Admin Dose 325 MG; Start 06/07/16 at 09:00 Multivitamins (Thera-Plus) 5 ml DAILY GTB Last administered on 06/15/16 09:44 ; Admin Dose 5 ML; Start 06/07/16 at 09:00 Tamsulosin HCl (Flomax) 0.4 mg HS PO Last administered on 06/14/16 20:51; Admin Dose 0.4 MG; Start 06/07/16 at 21:00 Zinc Sulfate (Zinc Sulfate) 220 mg DAILY GTB Last administered on 06/15/16 09: 44; Admin Dose 220 MG; Start 06/07/16 at 09:00 Mupirocin (Bactroban) 1 applic BID TOP Last administered on 06/15/16 09:52; Admin Dose 1 APPLIC; Start 06/07/16 at 21:00 Metoclopramide HCl (Reglan) 10 mg Q6H PRN IV NAUSEA AND/OR VOMITING Last administered on 06/08/16 18:00; Admin Dose 10 MG; Start 06/08/16 at 09:30 Atenolol (Tenormin) 25 mg DAILY PO Last administered on 06/15/16 09:44; Admin Dose 25 MG; Start 06/08/16 at 11:30 Lorazepam 1 mg 1 mg Q6H PRN IV AGITATION/ANXIETY Last administered on 12:34; Admin Dose 1 MG; Start 06/09/16 at 13:30 Fluconazole 100 ml @ 100 mls/hr Q24H IVPB Last administered on 06/14/16 18:20 ; Admin Dose 100 MLS/HR; Start 06/10/16 at 09:00 Total Parenteral Nutrition 1,000 ml @ 40 mls/hr Q24H IV Last administered on 18:03; Admin Dose 40 MLS/HR; Start 06/12/16 at 18:00 Fat Emulsion Intravenous (Liposyn Ii 20%) 500 ml @ 21 mls/hr [id number] IV Last administered on 06/15/16 06:11; Admin Dose 21 MLS/HR; Start 06/12/16 at 18:00 Diagnostic Test (Pha) 1 ea 1 ea Q4 XX Last administered on 06/15/16 09:00; Admin Dose 1 EA; Start 06/12/16 at 17:00 Linezolid 300 ml @ 300 mls/hr Q12 IVPB Last administered on 06/15/16 09:43; Admin Dose 300 MLS/HR; Start 06/14/16 at 21:00 Colistimethate Sodium 75 mg/ Sodium Chloride 100 ml @ 200 mls/hr Q12 IVPB Last administered on 06/15/16 09:42; Admin Dose 200 MLS/HR; Start 06/14/16 at 21:00 Metronidazole (Flagyl 500 Mg (Pmx)) 100 ml @ 100 mls/hr Q6 IVPB Last administered on 06/15/16 05:33; Admin Dose 100 MLS/HR; Start 06/14/16 at 18:00 JAYA GORE Jun 15, 2016 11:01
--- NOTE | 2016-06-15 14:16 | PN ---
DATE: 06/15/2016 Mr. Mcdaniels with his son, this was done 06/14/2016. The patient's overall medical condition was reviewed with patient's son and patient's son was very a badillo of his underlying major medical condition. Participants were case management, myself and Shira 's son. There is a second son was is not involved with the decision making on his father's behalf. He has an understanding which is clear of his father's underlying condition. His father was conver elena and was able to do all of his ADLs prior to this catastrophic hospitalization. His meaning and purpose for his father is to make sure he does not suffer and his primary concern is to maintain an acceptable quality of life. He does not see his father living in a senior care unit for the re st of his life. His fears are that his father would suffer. There are no cultural issues, communic ation is open with son, he is very conversant and able to express his concerns for his father's ongo ing level of care and quality of care. Goals of care at this time, continue with this level of care until discussion is done once again wit h patient's son. I have asked him to review what we have spoken about and that would be to continue with the CHEMICAL CODE ONLY, but also consider whether or not they want their father to continue to live in this condition, vent dependent and overall poor quality of life. Estimated prognosis is ex tremely poor. PPS score is not helpful, but if we would rate him, it is less than 10%. Psychologic al, social, spiritual issues have been addressed. There are no ethical issues are involved here. Thalia hinds's son is the decision maker and the decision on his father's ongoing level of care was deferr ed to this son. It is important to obtain a POLST form before patient is discharged. Dictated By: HENRY GUPTA MD, LP/TRACY Conf#: [id number] DID#: [id number]
--- NOTE | 2016-06-15 14:35 | PN ---
DATE: 06/15/2016 INFECTIOUS DISEASE PROGRESS NOTE SUBJECTIVE: Patient was lying comfortably in bed. No fevers. WBC today 20.8, platelets 173, neutrophils 73.2, BUN 16, creatinine 0.57. MICROBIOLOGY: Intra-abdominal fluid growing multi-drug resistant Klebsiella pneumoniae, enterococcu s leuconostoc, Bacteroides fragilis. Blood cultures since June 07 remain negative. INDWELLINGS: Trach, PEG, Alfonso, PICC line, intra-abdominal drainage catheter. ANTIMICROBIALS: The patient is on: 1. Zyvox. 2. Colistin. 3. Flagyl. 4. Fluconazole. PHYSICAL EXAMINATION: GENERAL: Fragile, elderly man who is in no distress. HEENT: Head atraumatic, normocephalic. Sclerae anicteric. Buccal mucosa dry. NECK: Supple. Tracheostomy present. CHEST: Rise symmetrical. Breath sounds diminished to bases. HEART: S1, S2. ABDOMEN: Soft, bowel tones present. EXTREMITIES: Without cyanosis. ASSESSMENT: 1. Sepsis, resolving. 2. Perforated viscus with abscess, status post CT-guided drainage catheter placement. 3. Status post methicillin-resistant Staphylococcus aureus bacteremia on admission. 4. Status post enterococcal urinary tract infection. 5. Dysphagia. 6. Resolving pneumonia. 7. Chronic respiratory failure. PLAN: The patient remains stable. Continue present care. Continue on current antimicrobials. Cecilio brennan recommendations of consultants. Dictated By: JOSE G CUNNINGHAM STATUS CONTROLLER for RASHIDA CAMPBELL MD NI/NTS Conf#: [id number] DID#: [id number]
[2016-06-15] MEDS: TPN 1,000 ML IV SCH (17:27)
--- NOTE | 2016-06-15 19:43 | PN ---
Date/Time of Note Date/Time of Note DATE: 06/15/16 TIME: 19:42 Assessment/Plan VTE Prophylaxis VTE Prophylaxis Intervention: other Lines/Catheters IV Catheter Type (from Nrs): PICC Line Central line still needed: Yes Urinary Cath still in place: Yes Reason Cath still needed: other (indicate) Assessment/Plan Chief Complaint/Hosp Course IMPRESSION: 1. Septic shock.better 2. Pneumonia. aspiration 3. Leukocytosis.better 4. Hematuria. better 5. Lactic acidosis. 6. Respiratory failure. 7. Gastrostomy tube placement. 8. Anemia. 9. Atrial fibrillation. 10. History of congestive heart failure with decreased ejection fraction. 11. vdrf 12. History of paroxysmal atrial fibrillation. 13. The patient now has decubitus. 14 uti 15 In the left anterior mid pelvis there is an approximate 6.3 x 3.2 x 4.7 cm air and fluid collection not definitely bowel suspicious for an abscess/ localized perforation. Diverticula in sigmoid and descending colon. Small amount of ascites. Gastrostomy tube in stomach. Small amount of air in gastric wall which could be secondary to the gastrostomy. No orally administered contrast is seen outside of the intestinal tract. No free pneumoperitoneum is seen. 1.6 cm rounded relatively low density structure in the upper left kidney which could represent a hyperattenuating cyst or solid mass. plan antibiotic per id weaning per pulmonary and cardio surgery consult npo tpn per id Problems: Subjective 24 Hr Interval Summary Subjective hx not possible: other (on vent) Exam/Review of Systems Vital Signs Vitals Vital Signs Date Time Temp Pulse Resp B/P Pulse Ox O2 Delivery O2 Flow Rate FiO2 06/15/16 19:29 62 28 100 30 06/15/16 17:00 148/61 Mechanical Ventilator 06/15/16 16:00 98.1 Intake and Output 06/14/16 06/14/16 06/15/16 15:00 23:00 07:00 Intake Total 700.0 ml 1515 ml 688 ml Output Total 30 ml 2505 ml 1220 ml Balance 670.0 ml -990 ml -532 ml Exam Respiratory: clear to auscultation Cardiovascular: regular rate and rhythm Gastrointestinal: soft Musculoskeletal: nl extremities to inspection Extremities: normal pulses Results Result Diagram: 06/15/16 0330 06/15/16 0330 Results 24 hrs Laboratory Tests Test 06/14/16 20:52 06/15/16 00:36 06/15/16 03:30 06/15/16 05:10 Bedside Glucose 121 139 110 White Blood Count 20.8 H Red Blood Count 2.97 L Hemoglobin 8.9 L Hematocrit 28.0 L Mean Corpuscular Volume 94.3 Mean Corpuscular Hemoglobin 30.0 Mean Corpuscular Hemoglobin Concent 31.8 L Red Cell Distribution Width 15.9 H Platelet Count 173 Mean Platelet Volume 11.2 H Neutrophils % 73.2 Lymphocytes % 8.1 L Monocytes % 3.0 Eosinophils % 1.2 Basophils % 0.4 Nucleated Red Blood Cells % 0.0 Neutrophils # 15.3 H Lymphocytes # 1.7 Monocytes # 0.6 Eosinophils # 0.3 Basophils # 0.1 Nucleated Red Blood Cells # 0.0 Sodium Level 136 Potassium Level 3.5 Chloride Level 101 Carbon Dioxide Level 26 Anion Gap 13 Blood Urea Nitrogen 16 Creatinine 0.57 L Glucose Level 92 Calcium Level 7.1 L Total Bilirubin 0.2 Direct Bilirubin 0.00 Indirect Bilirubin 0.2 Aspartate Amino Transf (AST/SGOT) 24 Alanine Aminotransferase (ALT/SGPT) 27 Alkaline Phosphatase 45 Total Protein 4.8 L Albumin 2.0 L Globulin 2.80 Albumin/Globulin Ratio 0.71 Test 06/15/16 10:02 06/15/16 13:49 06/15/16 17:20 Bedside Glucose 95 102 99 Medications Medications Current Medications Naloxone HCl (Narcan) 0.4 mg Q3M PRN IV DECREASED REPIRATORY RATE; Start at 10:30 Ondansetron HCl (Zofran Inj) 4 mg Q6H PRN IV NAUSEA AND/OR VOMITING; Start 01/12 at 10:30 Nitroglycerin (Nitroglycerin (Sl Tab) 0.4 Mg) 1 tab Q5M PRN SL CHEST PAIN; Start 06/06/16 at 10:30 Acetaminophen (Tylenol Liquid) 650 mg Q6H PRN PO PAIN LEVEL 1-3 OR FEVER; Start 06/06/16 at 10:30 Morphine Sulfate (morphine) 2 mg Q4H PRN IV PAIN LEVEL 7-10 Last administered on 06/15/16t 00:22; Admin Dose 2 MG; Start 06/06/16 at 10:30 Docusate Sodium (Colace) 100 mg Q12H PRN PO CONSTIPATION; Start 06/06/16 at 10: 30 Magnesium Hydroxide (Milk Of Mag) 30 ml DAILY PRN PO CONSTIPATION; Start at 10:30 Bisacodyl (Dulcolax) 5 mg DAILY PRN PO CONSTIPATION; Start 06/06/16 at 10:30 Pantoprazole (Protonix Iv) 40 mg DAILY@06 IV Last administered on 06/15/16 05: 09; Admin Dose 40 MG; Start 06/07/16 at 06:00 Enoxaparin Sodium (Lovenox) 40 mg DAILY SC Last administered on 06/15/16 09:46 ; Admin Dose 40 MG; Start 06/07/16 at 09:00 Collagenase (Santyl) 1 applic DAILY TOP Last administered on 06/15/16 09:52; Admin Dose 1 APPLIC; Start 06/07/16 at 09:00 Collagenase (Santyl) 1 applic PRN PRN TOP WOUND CARE; Start 06/06/16 at 16:00 IV Flush (NS 10 ml) 10 ml PRN PRN IV IV PROTOCOL; Start 06/06/16 at 18:30 Ascorbic Acid (Vitamin C) 500 mg DAILY GTB Last administered on 06/15/16 09:43 ; Admin Dose 500 MG; Start 06/07/16 at 09:00 Aspirin (Aspirin) 325 mg DAILY GTB Last administered on 06/15/16 09:43; Admin Dose 325 MG; Start 06/07/16 at 09:00 Multivitamins (Thera-Plus) 5 ml DAILY GTB Last administered on 06/15/16 09:44 ; Admin Dose 5 ML; Start 06/07/16 at 09:00 Tamsulosin HCl (Flomax) 0.4 mg HS PO Last administered on 06/14/16 20:51; Admin Dose 0.4 MG; Start 06/07/16 at 21:00 Zinc Sulfate (Zinc Sulfate) 220 mg DAILY GTB Last administered on 06/15/16 09: 44; Admin Dose 220 MG; Start 06/07/16 at 09:00 Mupirocin (Bactroban) 1 applic BID TOP Last administered on 06/15/16 09:52; Admin Dose 1 APPLIC; Start 06/07/16 at 21:00 Metoclopramide HCl (Reglan) 10 mg Q6H PRN IV NAUSEA AND/OR VOMITING Last administered on 06/08/16 18:00; Admin Dose 10 MG; Start 06/08/16 at 09:30 Atenolol (Tenormin) 25 mg DAILY PO Last administered on 06/15/16 09:44; Admin Dose 25 MG; Start 06/08/16 at 11:30 Lorazepam 1 mg 1 mg Q6H PRN IV AGITATION/ANXIETY Last administered on 12:34; Admin Dose 1 MG; Start 06/09/16 at 13:30 Fluconazole 100 ml @ 100 mls/hr Q24H IVPB Last administered on 06/14/16 18:20 ; Admin Dose 100 MLS/HR; Start 06/10/16 at 09:00 Total Parenteral Nutrition 1,000 ml @ 40 mls/hr Q24H IV Last administered on 17:27; Admin Dose 40 MLS/HR; Start 06/12/16 at 18:00 Fat Emulsion Intravenous (Liposyn Ii 20%) 500 ml @ 21 mls/hr [id number] IV Last administered on 06/15/16 06:11; Admin Dose 21 MLS/HR; Start 06/12/16 at 18:00 Diagnostic Test (Pha) 1 ea 1 ea Q4 XX Last administered on 06/15/16 17:21; Admin Dose 1 EA; Start 06/12/16 at 17:00 Linezolid 300 ml @ 300 mls/hr Q12 IVPB Last administered on 06/15/16 09:43; Admin Dose 300 MLS/HR; Start 06/14/16 at 21:00 Colistimethate Sodium 75 mg/ Sodium Chloride 100 ml @ 200 mls/hr Q12 IVPB Last administered on 06/15/16 09:42; Admin Dose 200 MLS/HR; Start 06/14/16 at 21:00 Metronidazole (Flagyl 500 Mg (Pmx)) 100 ml @ 100 mls/hr Q6 IVPB Last administered on 06/15/16 17:26; Admin Dose 100 MLS/HR; Start 06/14/16 at 18:00 HOLLI LINDER MD Jun 15, 2016 19:43
--- NOTE | 2016-06-15 20:27 | PN ---
Date/Time of Note Date/Time of Note DATE: 06/15/16 TIME: 20:26 Assessment/Plan Lines/Catheters IV Catheter Type (from [facility]): PICC Line Alfonso in Place (from [facility]): Yes Assessment/Plan Chief Complaint/Hosp Course 1. Contained perforated viscous s/p IR drain 06/11. Cx noted -continue drain -abx per ID -supportive 2. Pneumonia -pulmonary toilette -abx 3. Sepsis, significant leukocytosis -abx -as above 4. Sacral decubitus ulcer -off load -nutrition optimization -vit c -local care 5. Chronic AFib -rate control -optimize electrolytes -tx infections 6. Anemia -monitor 7. Hypoalbuminemia -eventual nutritional optimization 8. CHF -judicious fluid management -cardiac optimization Thank you, Problems: Subjective 24 Hr Interval Summary No f/c. No cough. No sz. No rashes. No bloating. No vomiting. No bleeding. Leukocytosis slowly improving. Exam/Review of Systems Vital Signs Vitals Vital Signs Date Time Temp Pulse Resp B/P Pulse Ox O2 Delivery O2 Flow Rate FiO2 06/15/16 19:29 62 28 100 30 06/15/16 17:00 148/61 Mechanical Ventilator 06/15/16 16:00 98.1 Intake and Output 06/14/16 06/14/16 06/15/16 15:00 23:00 07:00 Intake Total 700.0 ml 1515 ml 688 ml Output Total 30 ml 2505 ml 1220 ml Balance 670.0 ml -990 ml -532 ml Exam Free Text/Dictation Constitutional: No alert, No distress, No oriented Psych: confusion, No anxiety Head: atraumatic, normocephalic Eyes: PERRL, nl conjunctiva, No icteric ENMT: mucosa pink and moist, nl external ears & nose, nl lips & teeth Neck: jvd (min), non-tender Respiratory: No congested cough, No labored breathing Cardiovascular: No edema, No regular rate and rhythm Gastrointestinal: soft, drain Left side, PEG No distended, No firm, No rebound or guarding Musculoskeletal: No joint tenderness, No nl gait and stance Extremities: No calf tenderness, No cyanosis Neurological: No nl mental status, No nl speech, No nl strength Skin: nl turgor, rash or lesions (Sacral and LE decubitus ulcerations), No diaphoresis Lymph: nl lymph nodes Results Result Diagram: 06/15/16 0330 06/15/16 0330 DAREK AHMADI MD Jun 15, 2016 20:26
[2016-06-15] MEDS: TAMSULOSIN (SR) 0.4 MG CAP PO SCH (21:07)
[2016-06-16] VITALS (37 sets, daily range): BP systolic 101–149; BP diastolic 46–77; PULSE 60–78; RESP 19–35
[2016-06-16] MEDS: metroNIDAZOLE 500 MG/NS (PMX) 100 ML IVPB SCH ×4 (00:21→17:41)
[2016-06-16] MEDS: ACCU-CHEK XX SCH ×6 (00:32→21:04)
[2016-06-16] MEDS: ALBUTEROL 18 GM INHALER INH SCH ×6 (01:07→21:24)
[2016-06-16] MEDS: IPRATROPIUM (HFA) 12.9 GM INHALER INH SCH ×6 (01:07→21:24)
[2016-06-16] MEDS: FAT EMULSION 20% 500 ML IV SCH ×2 (05:38→17:28)
[2016-06-16 06:06] LABS: ADD SCAN DIFF NO
[2016-06-16] MEDS: PANTOPRAZOLE 40 MG INJ IV SCH (06:09)
[2016-06-16 06:31] LABS: ABNORMAL IP MESSAGE 1; HEMATOCRIT 29.1 % (42.0-52.0); HEMOGLOBIN 9.4 g/dl (14.0-18.0); MEAN CORPUSCULAR HEMOGLOBIN 29.9 pg (29.0-33.0); MEAN CORPUSCULAR HGB CONC 32.3 g/dl (32.0-37.0); MEAN CORPUSCULAR VOLUME 92.7 fl (82.0-101.0); MEAN PLATELET VOLUME 11.6 fl (7.4-10.4); PLATELET COUNT 193 10^3/UL (140-415); RED BLOOD COUNT 3.14 10^6/ul (4.70-6.10); RED CELL DISTRIBUTION WIDTH 15.8 % (11.5-14.5); WHITE BLOOD COUNT 26.8 10^3/ul (4.8-10.8)
[2016-06-16 06:57] LABS: CALCIUM 7.5 mg/dl (8.4-10.2); CREATININE 0.62 mg/dl (0.61-1.24); MAGNESIUM 1.6 mg/dl (1.7-2.5); PHOSPHORUS 3.3 mg/dl (2.5-4.9); POTASSIUM 3.9 mmol/L (3.5-5.1)
--- NOTE | 2016-06-16 07:47 | RADRPT ---
PROCEDURE: XR Chest. CLINICAL INDICATION: pna chf TECHNIQUE: Single frontal view of the chest was obtained. 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 A left-sided PICC line is again noted. There is stable cardiomegaly. There is mildly increased prominence of interstitial markings consistent with mild congestive change s. There are stable small bilateral pleural effusions with increased bibasilar atelectasis. IMPRESSION: Stable small bilateral pleural effusions with increased bibasilar atelectasis. Mild congestive changes which have increased. RPTAT: EE Physician Letha Date Time Electronically viewed and signed by Physician Letha on 06/16/2016 07:47 RA/
[2016-06-16] MEDS: COLISTIMETHATE 75 MG in SOD CHLORIDE 0.9% 100 ML IVPB SCH ×2 (09:00→20:42)
--- NOTE | 2016-06-16 09:48 | CONS ---
Date/Time of Note Date/Time of Note DATE: 06/16/16 TIME: 09:46 Consult Date/Type/Reason Admit Date/Time Jun 06, 2016 at 08:08 Initial Consult Date 06/07/16 Type of Consultation: pulmonary ICU Ordering Provider: HOLLI LINDER MD Subjective Patient remains stable in intensive care unit. Continues TPN Continues mechanical ventilation Status post trach change with no evidence of cuff leak Objective Vital Signs Date Time Temp Pulse Resp B/P Pulse Ox O2 Delivery O2 Flow Rate FiO2 06/16/16 09:25 63 26 97 30 06/16/16 07:00 121/58 Mechanical Ventilator 06/16/16 04:00 98.8 Intake and Output 06/15/16 06/15/16 06/16/16 15:00 23:00 07:00 Intake Total 500 ml 1626 ml 649 ml Output Total 15 ml 2220 ml 1380 ml Balance 485 ml -594 ml -731 ml Exam PHYSICAL EXAMINATION GENERAL: Elderly gentleman, on mechanical ventilation via tracheostomy VITAL SIGNS: see below. HEENT: Pupils equal, round, and reactive to light. Tracheostomy site clean and intact. CARDIAC: S1, S2, tachycardia. CHEST: Diminished air entry bilaterally. Rales bilaterally ABDOMEN: Mildly distended. Decreased bowel sounds no guarding or rebound EXTREMITIES: No cyanosis, clubbing edema +1 NEUROLOGIC: Unable to assess Results/Medications Result Diagram: 06/16/16 0550 06/16/16 0550 Results 24 hrs Chest x-ray bilateral patchy infiltrates Laboratory Tests Test 06/15/16 10:02 06/15/16 13:49 06/15/16 17:20 06/15/16 21:17 Bedside Glucose 95 102 99 94 Test 06/16/16 00:30 06/16/16 04:58 06/16/16 05:50 Bedside Glucose 121 102 White Blood Count 26.8 #H Red Blood Count 3.14 L Hemoglobin 9.4 L Hematocrit 29.1 L Mean Corpuscular Volume 92.7 Mean Corpuscular Hemoglobin 29.9 Mean Corpuscular Hemoglobin Concent 32.3 Red Cell Distribution Width 15.8 H Platelet Count 193 Mean Platelet Volume 11.6 H Neutrophils % Lymphocytes % Monocytes % Eosinophils % Neutrophils # Lymphocytes # Monocytes # Eosinophils # Sodium Level 131 L Potassium Level 3.9 Chloride Level 100 Carbon Dioxide Level 28 Anion Gap 7 L Blood Urea Nitrogen 16 Creatinine 0.62 Glucose Level 99 Calcium Level 7.5 L Phosphorus Level 3.3 Magnesium Level 1.6 L Medications Current Medications Naloxone HCl (Narcan) 0.4 mg Q3M PRN IV DECREASED REPIRATORY RATE; Start at 10:30 Ondansetron HCl (Zofran Inj) 4 mg Q6H PRN IV NAUSEA AND/OR VOMITING; Start 01/12 at 10:30 Nitroglycerin (Nitroglycerin (Sl Tab) 0.4 Mg) 1 tab Q5M PRN SL CHEST PAIN; Start 06/06/16 at 10:30 Acetaminophen (Tylenol Liquid) 650 mg Q6H PRN PO PAIN LEVEL 1-3 OR FEVER; Start 06/06/16 at 10:30 Morphine Sulfate (morphine) 2 mg Q4H PRN IV PAIN LEVEL 7-10 Last administered on 06/15/16 00:22; Admin Dose 2 MG; Start 06/06/16 at 10:30 Docusate Sodium (Colace) 100 mg Q12H PRN PO CONSTIPATION; Start 06/06/16 at 10: 30 Magnesium Hydroxide (Milk Of Mag) 30 ml DAILY PRN PO CONSTIPATION; Start at 10:30 Bisacodyl (Dulcolax) 5 mg DAILY PRN PO CONSTIPATION; Start 06/06/16 at 10:30 Pantoprazole (Protonix Iv) 40 mg DAILY@06 IV Last administered on 06/16/16 06: 09; Admin Dose 40 MG; Start 06/07/16 at 06:00 Enoxaparin Sodium (Lovenox) 40 mg DAILY SC Last administered on 06/15/16 09:46 ; Admin Dose 40 MG; Start 06/07/16 at 09:00 Collagenase (Santyl) 1 applic DAILY TOP Last administered on 06/15/16 09:52; Admin Dose 1 APPLIC; Start 06/07/16 at 09:00 Collagenase (Santyl) 1 applic PRN PRN TOP WOUND CARE; Start 06/06/16 at 16:00 IV Flush (NS 10 ml) 10 ml PRN PRN IV IV PROTOCOL; Start 06/06/16 at 18:30 Ascorbic Acid (Vitamin C) 500 mg DAILY GTB Last administered on 06/15/16 09:43 ; Admin Dose 500 MG; Start 06/07/16 at 09:00 Aspirin (Aspirin) 325 mg DAILY GTB Last administered on 06/15/16 09:43; Admin Dose 325 MG; Start 06/07/16 at 09:00 Multivitamins (Thera-Plus) 5 ml DAILY GTB Last administered on 06/15/16 09:44 ; Admin Dose 5 ML; Start 06/07/16 at 09:00 Tamsulosin HCl (Flomax) 0.4 mg HS PO Last administered on 06/15/16 21:07; Admin Dose 0.4 MG; Start 06/07/16 at 21:00 Zinc Sulfate (Zinc Sulfate) 220 mg DAILY GTB Last administered on 06/15/16 09: 44; Admin Dose 220 MG; Start 06/07/16 at 09:00 Mupirocin (Bactroban) 1 applic BID TOP Last administered on 06/15/16 21:09; Admin Dose 1 APPLIC; Start 06/07/16 at 21:00 Metoclopramide HCl (Reglan) 10 mg Q6H PRN IV NAUSEA AND/OR VOMITING Last administered on 06/08/16 18:00; Admin Dose 10 MG; Start 06/08/16 at 09:30 Atenolol (Tenormin) 25 mg DAILY PO Last administered on 06/15/16 09:44; Admin Dose 25 MG; Start 06/08/16 at 11:30 Lorazepam 1 mg 1 mg Q6H PRN IV AGITATION/ANXIETY Last administered on 12:34; Admin Dose 1 MG; Start 06/09/16 at 13:30 Fluconazole 100 ml @ 100 mls/hr Q24H IVPB Last administered on 06/14/16 18:20 ; Admin Dose 100 MLS/HR; Start 06/10/16 at 09:00 Total Parenteral Nutrition 1,000 ml @ 40 mls/hr Q24H IV Last administered on 17:27; Admin Dose 40 MLS/HR; Start 06/12/16 at 18:00 Fat Emulsion Intravenous (Liposyn Ii 20%) 500 ml @ 21 mls/hr [id number] IV Last administered on 06/16/16 05:38; Admin Dose 21 MLS/HR; Start 06/12/16 at 18:00 Diagnostic Test (Pha) 1 ea 1 ea Q4 XX Last administered on 06/16/16 05:06; Admin Dose 1 EA; Start 06/12/16 at 17:00 Linezolid 300 ml @ 300 mls/hr Q12 IVPB Last administered on 06/15/16 21:27; Admin Dose 300 MLS/HR; Start 06/14/16 at 21:00 Colistimethate Sodium 75 mg/ Sodium Chloride 100 ml @ 200 mls/hr Q12 IVPB Last administered on 06/15/16 21:18; Admin Dose 200 MLS/HR; Start 06/14/16 at 21:00 Metronidazole (Flagyl 500 Mg (Pmx)) 100 ml @ 100 mls/hr Q6 IVPB Last administered on 06/16/16 06:09; Admin Dose 100 MLS/HR; Start 06/14/16 at 18:00 Assessment/Plan Chief Complaint/Hosp Course Assessment 1. Vent dependent respiratory failure with evidence of healthcare associated pneumonia 2. Status post bowel perforation with drainage, persistent leukocytosis 3. Persistent leukocytosis sepsis likely secondary to bowel abscesses VIET drains in place decreased output 4. Chronic atrial fibrillation 5. Decubitus ulcers 6. Dysphagia with G-tube 7. Anemia likely of chronic disease Plan 1. Continue mechanical ventilation tracheostomy change 2. Continue broad-spectrum antibiotics per infectious diseases 3. Surgical recommendations regarding abdominal drains 4. Palliative care consult 5. DVT and GI prophylaxis Disposition Transfer to telemetry [facility] Critical care time 35 minutes Problems: KAVON TROY MD, [facility] Jun 16, 2016 09:48
[2016-06-16] MEDS: MUPIROCIN 2% 22 GM OINT TOP SCH ×2 (09:53→20:49)
[2016-06-16] MEDS: ASCORBIC ACID 500 MG TAB GTB SCH (09:54)
[2016-06-16] MEDS: ASPIRIN 325 MG TAB GTB SCH (09:54)
[2016-06-16] MEDS: LINEZOLID 600 MG/D5W (PMX) 300 ML IVPB SCH ×2 (09:54→20:48)
[2016-06-16] MEDS: MULTIVITAMINS 5 ML CUP GTB SCH (09:54)
[2016-06-16] MEDS: ZINC SULFATE 220 MG CAP GTB SCH (09:54)
[2016-06-16] MEDS: COLLAGENASE 30 GM TUBE TOP SCH (09:54)
[2016-06-16] MEDS: FLUCONAZOLE 200 MG/NS (PMX) 100 ML IVPB SCH (09:54)
[2016-06-16] MEDS: ATENOLOL 25 MG TAB PO SCH (09:55)
[2016-06-16] MEDS: ENOXAPARIN 40 MG/0.4 ML SYG SC SCH (09:56)
--- NOTE | 2016-06-16 10:09 | PN ---
Date/Time of Note Date/Time of Note DATE: 06/16/16 TIME: 10:08 Assessment/Plan Lines/Catheters IV Catheter Type (from [facility]): PICC Line Alfonso in Place (from [facility]): Yes Assessment/Plan Chief Complaint/Hosp Course 1. Contained perforated viscous s/p IR drain 06/11. Cx noted. WBC elevated again. -continue drain -abx per ID -supportive 2. Pneumonia -pulmonary toilette -abx 3. Sepsis, significant leukocytosis -abx -as above -if wbc continues to increase may need to repeat imaging and paredes cx 4. Sacral decubitus ulcer -off load -nutrition optimization -vit c -local care 5. Chronic AFib -rate control -optimize electrolytes -tx infections 6. Anemia -monitor 7. Hypoalbuminemia -eventual nutritional optimization 8. CHF -judicious fluid management -cardiac optimization Thank you, Problems: Subjective 24 Hr Interval Summary No f/c. No cough. No sz. No rashes. No bloating. No vomiting. No bleeding. Leukocytosis Exam/Review of Systems Vital Signs Vitals Vital Signs Date Time Temp Pulse Resp B/P Pulse Ox O2 Delivery O2 Flow Rate FiO2 06/16/16 09:25 63 26 97 30 06/16/16 07:00 121/58 Mechanical Ventilator 06/16/16 04:00 98.8 Intake and Output 06/15/16 06/15/16 06/16/16 15:00 23:00 07:00 Intake Total 500 ml 1626 ml 649 ml Output Total 15 ml 2220 ml 1380 ml Balance 485 ml -594 ml -731 ml Exam Free Text/Dictation Constitutional: No alert, No distress, No oriented Psych: confusion, No anxiety Head: atraumatic, normocephalic Eyes: PERRL, nl conjunctiva, No icteric ENMT: mucosa pink and moist, nl external ears & nose, nl lips & teeth Neck: jvd (min), non-tender Respiratory: No congested cough, No labored breathing Cardiovascular: No edema, No regular rate and rhythm Gastrointestinal: soft, drain Left side, PEG No distended, No firm, No rebound or guarding Musculoskeletal: No joint tenderness, No nl gait and stance Extremities: No calf tenderness, No cyanosis Neurological: No nl mental status, No nl speech, No nl strength Skin: nl turgor, rash or lesions (Sacral and LE decubitus ulcerations), No diaphoresis Lymph: nl lymph nodes Results Result Diagram: 06/16/16 0550 06/16/16 0550 DAREK AHMADI MD Jun 16, 2016 10:09
[2016-06-16 10:36] LABS: EOSINOPHILS # 0.3 10^3/ul (0.0-0.5); LYMPHOCYTES # 0.5 10^3/ul (0.8-2.9); MONOCYTE # 1.3 10^3/ul (0.3-0.9); MYELOCYTES # 1.1
--- NOTE | 2016-06-16 10:37 | CONS ---
Date/Time of Note Date/Time of Note DATE: 06/16/16 TIME: 10:33 Assessment/Plan Assessment/Plan Chief Complaint/Hosp Course IMp: 1.CHF-systolic acute on chonic-reasonable volume status at this time 2.Resp failure s/p trach on vent 3.Cardiomyopathy-LVEF 25-30% 4.HTN-with episodes of borderline Hotn 5.PPM-s/p interrogation with proper function-episodes of SVT and shot episode VT 06/09/16/good battery life 6.Leukocytosis 7.Tachycardia-PAF 8.Perforated viscous s/p IR drain placement Recc: -Tele -Follow BP/Volume status closely -Continue abx's and f/u cx data -Continue atenolol as tolerated/possible only -Continue asa/low dose lovenox -Continue abx's/f/u cx data -Follow IR drainage output Problems: Consultation Date/Type/Reason Admit Date/Time Jun 06, 2016 at 08:08 Initial Consult Date 06/07/16 Type of Consultation: Cardiology Reason for Consultation Cardiomyopathy/CHF Referring Provider: HOLLI LINDER MD Exam/Review of Systems Vital Signs Vitals Vital Signs Date Time Temp Pulse Resp B/P Pulse Ox O2 Delivery O2 Flow Rate FiO2 06/16/16 09:25 63 26 97 30 06/16/16 07:00 121/58 Mechanical Ventilator 06/16/16 04:00 98.8 Intake and Output 06/15/16 06/15/16 06/16/16 15:00 23:00 07:00 Intake Total 500 ml 1626 ml 649 ml Output Total 15 ml 2220 ml 1380 ml Balance 485 ml -594 ml -731 ml Exam Review of Systems: CONSTITUTIONAL: No fevers, chills. PULMONARY: Trached CARDIOVASCULAR: No obvious chest pain/palpitations GASTROINTESTINAL: No nausea/vomiting. GENITOURINARY: No hematuria/dysuria. MUSCULOSKELETAL: No obvious myagias/arthalgias. PSYCHIATRIC: No documented depression. NEUROLOGIC: Encephalopathic Constitutional: alert, oriented Psych: no complaints Head: normocephalic ENMT: mucosa pink and moist Neck: jvd (9 cm water), supple Respiratory: diminished breath sounds (at bases/B) Cardiovascular: regular rate and rhythm Gastrointestinal: non-tender, soft Musculoskeletal: muscle tone (normal) Extremities: edema (trace/B) Neurological: other (No focal deficits) Results Result Diagram: 06/16/16 0550 06/16/16 0550 Results 24 hrs Laboratory Tests Test 06/15/16 13:49 06/15/16 17:20 06/15/16 21:17 06/16/16 00:30 Bedside Glucose 102 99 94 121 Test 06/16/16 04:58 06/16/16 05:50 06/16/16 10:09 Bedside Glucose 102 113 White Blood Count 26.8 #H Red Blood Count 3.14 L Hemoglobin 9.4 L Hematocrit 29.1 L Mean Corpuscular Volume 92.7 Mean Corpuscular Hemoglobin 29.9 Mean Corpuscular Hemoglobin Concent 32.3 Red Cell Distribution Width 15.8 H Platelet Count 193 Mean Platelet Volume 11.6 H Neutrophils % Lymphocytes % Monocytes % Eosinophils % Neutrophils # Lymphocytes # Monocytes # Eosinophils # Sodium Level 131 L Potassium Level 3.9 Chloride Level 100 Carbon Dioxide Level 28 Anion Gap 7 L Blood Urea Nitrogen 16 Creatinine 0.62 Glucose Level 99 Calcium Level 7.5 L Phosphorus Level 3.3 Magnesium Level 1.6 L Medications Medications Current Medications Naloxone HCl (Narcan) 0.4 mg Q3M PRN IV DECREASED REPIRATORY RATE; Start at 10:30 Ondansetron HCl (Zofran Inj) 4 mg Q6H PRN IV NAUSEA AND/OR VOMITING; Start 01/12 at 10:30 Nitroglycerin (Nitroglycerin (Sl Tab) 0.4 Mg) 1 tab Q5M PRN SL CHEST PAIN; Start 06/06/16 at 10:30 Acetaminophen (Tylenol Liquid) 650 mg Q6H PRN PO PAIN LEVEL 1-3 OR FEVER; Start 06/06/16 at 10:30 Morphine Sulfate (morphine) 2 mg Q4H PRN IV PAIN LEVEL 7-10 Last administered on 06/15/16t 00:22; Admin Dose 2 MG; Start 06/06/16 at 10:30 Docusate Sodium (Colace) 100 mg Q12H PRN PO CONSTIPATION; Start 06/06/16 at 10: 30 Magnesium Hydroxide (Milk Of Mag) 30 ml DAILY PRN PO CONSTIPATION; Start at 10:30 Bisacodyl (Dulcolax) 5 mg DAILY PRN PO CONSTIPATION; Start 06/06/16 at 10:30 Pantoprazole (Protonix Iv) 40 mg DAILY@06 IV Last administered on 06/16/16 06: 09; Admin Dose 40 MG; Start 06/07/16 at 06:00 Enoxaparin Sodium (Lovenox) 40 mg DAILY SC Last administered on 06/16/16 09:56 ; Admin Dose 40 MG; Start 06/07/16 at 09:00 Collagenase (Santyl) 1 applic DAILY TOP Last administered on 06/16/16 09:54; Admin Dose 1 APPLIC; Start 06/07/16 at 09:00 Collagenase (Santyl) 1 applic PRN PRN TOP WOUND CARE; Start 06/06/16 at 16:00 IV Flush (NS 10 ml) 10 ml PRN PRN IV IV PROTOCOL; Start 06/06/16 at 18:30 Ascorbic Acid (Vitamin C) 500 mg DAILY GTB Last administered on 06/16/16 09:54 ; Admin Dose 500 MG; Start 06/07/16 at 09:00 Aspirin (Aspirin) 325 mg DAILY GTB Last administered on 06/16/16 09:54; Admin Dose 325 MG; Start 06/07/16 at 09:00 Multivitamins (Thera-Plus) 5 ml DAILY GTB Last administered on 06/16/16 09:54 ; Admin Dose 5 ML; Start 06/07/16 at 09:00 Tamsulosin HCl (Flomax) 0.4 mg HS PO Last administered on 06/15/16 21:07; Admin Dose 0.4 MG; Start 06/07/16 at 21:00 Zinc Sulfate (Zinc Sulfate) 220 mg DAILY GTB Last administered on 06/16/16 09: 54; Admin Dose 220 MG; Start 06/07/16 at 09:00 Mupirocin (Bactroban) 1 applic BID TOP Last administered on 06/16/16 09:53; Admin Dose 1 APPLIC; Start 06/07/16 at 21:00 Metoclopramide HCl (Reglan) 10 mg Q6H PRN IV NAUSEA AND/OR VOMITING Last administered on 06/08/16 18:00; Admin Dose 10 MG; Start 06/08/16 at 09:30 Atenolol (Tenormin) 25 mg DAILY PO Last administered on 06/16/16 09:55; Admin Dose 25 MG; Start 06/08/16 at 11:30 Lorazepam 1 mg 1 mg Q6H PRN IV AGITATION/ANXIETY Last administered on 12:34; Admin Dose 1 MG; Start 06/09/16 at 13:30 Fluconazole 100 ml @ 100 mls/hr Q24H IVPB Last administered on 06/16/16 09:54 ; Admin Dose 100 MLS/HR; Start 06/10/16 at 09:00 Total Parenteral Nutrition 1,000 ml @ 40 mls/hr Q24H IV Last administered on 17:27; Admin Dose 40 MLS/HR; Start 06/12/16 at 18:00 Fat Emulsion Intravenous (Liposyn Ii 20%) 500 ml @ 21 mls/hr [id number] IV Last administered on 06/16/16 05:38; Admin Dose 21 MLS/HR; Start 06/12/16 at 18:00 Diagnostic Test (Pha) 1 ea 1 ea Q4 XX Last administered on 06/16/16 09:50; Admin Dose 1 EA; Start 06/12/16 at 17:00 Linezolid 300 ml @ 300 mls/hr Q12 IVPB Last administered on 06/16/16 09:54; Admin Dose 300 MLS/HR; Start 06/14/16 at 21:00 Colistimethate Sodium 75 mg/ Sodium Chloride 100 ml @ 200 mls/hr Q12 IVPB Last administered on 06/16/16 09:00; Admin Dose 200 MLS/HR; Start 06/14/16 at 21:00 Metronidazole (Flagyl 500 Mg (Pmx)) 100 ml @ 100 mls/hr Q6 IVPB Last administered on 06/16/16 06:09; Admin Dose 100 MLS/HR; Start 06/14/16 at 18:00 JAYA GORE Jun 16, 2016 10:37
--- NOTE | 2016-06-16 10:51 | PN ---
Date/Time of Note Date/Time of Note DATE: 06/16/16 TIME: 10:48 Assessment/Plan VTE Prophylaxis VTE Prophylaxis Intervention: SCD's Lines/Catheters IV Catheter Type (from Nrs): PICC Line Central line still needed: Yes Urinary Cath still in place: Yes Reason Cath still needed: pres ulcer contaminated by urine Assessment/Plan Chief Complaint/Hosp Course 1. Septic shock.better 2. Pneumonia. aspiration 3. Leukocytosis.better 4. Hematuria. better 5. Lactic acidosis. 6. Respiratory failure. 7. Gastrostomy tube placement. 8. Anemia. 9. Atrial fibrillation. 10. History of congestive heart failure with decreased ejection fraction. 11. vdrf 12. History of paroxysmal atrial fibrillation. 13. The patient now has decubitus. 14 uti Problems: Assessment/Plan 1. Transfer is pending 2. Continue TPN 3. Continue wound care Subjective 24 Hr Interval Summary Free Text/Dictation poor historian, weak voice Exam/Review of Systems Vital Signs Vitals Vital Signs Date Time Temp Pulse Resp B/P Pulse Ox O2 Delivery O2 Flow Rate FiO2 06/16/16 09:25 63 26 97 30 06/16/16 07:00 121/58 Mechanical Ventilator 06/16/16 04:00 98.8 Intake and Output 06/15/16 06/15/16 06/16/16 15:00 23:00 07:00 Intake Total 500 ml 1626 ml 649 ml Output Total 15 ml 2220 ml 1380 ml Balance 485 ml -594 ml -731 ml Exam Constitutional: alert, oriented (1) Psych: no complaints Head: atraumatic, normocephalic Eyes: EOMI, nl conjunctiva ENMT: nl external ears & nose, other Neck: other (tracheostomy) Respiratory: diminished breath sounds Cardiovascular: other (paced) Gastrointestinal: soft, surgical scars Genitourinary - Male: nl penis, other (muñoz) Musculoskeletal: muscle tone (decreased) Extremities: normal pulses Skin: other (decubitus) Results Result Diagram: 06/16/16 0550 06/16/16 0550 Results 24 hrs Laboratory Tests Test 06/15/16 13:49 06/15/16 17:20 06/15/16 21:17 06/16/16 00:30 Bedside Glucose 102 99 94 121 Test 06/16/16 04:58 06/16/16 05:50 06/16/16 10:09 Bedside Glucose 102 113 White Blood Count 26.8 #H Red Blood Count 3.14 L Hemoglobin 9.4 L Hematocrit 29.1 L Mean Corpuscular Volume 92.7 Mean Corpuscular Hemoglobin 29.9 Mean Corpuscular Hemoglobin Concent 32.3 Red Cell Distribution Width 15.8 H Platelet Count 193 Mean Platelet Volume 11.6 H Neutrophils % 82.0 H Band Neutrophils % 3.0 Lymphocytes % 2.0 L Monocytes % 5.0 Eosinophils % 1.0 Metamyelocytes % 3.0 H Myelocytes % 4.0 H Neutrophils # 22.0 H Lymphocytes # 0.5 L Monocytes # 1.3 H Eosinophils # 0.3 Metamyelocytes # 0.8 Myelocytes # 1.1 Differential Comment MANUAL DIFF Large Platelets OCCASIONAL Sodium Level 131 L Potassium Level 3.9 Chloride Level 100 Carbon Dioxide Level 28 Anion Gap 7 L Blood Urea Nitrogen 16 Creatinine 0.62 Glucose Level 99 Calcium Level 7.5 L Phosphorus Level 3.3 Magnesium Level 1.6 L Medications Medications Current Medications Naloxone HCl (Narcan) 0.4 mg Q3M PRN IV DECREASED REPIRATORY RATE; Start at 10:30 Ondansetron HCl (Zofran Inj) 4 mg Q6H PRN IV NAUSEA AND/OR VOMITING; Start 01/12 at 10:30 Nitroglycerin (Nitroglycerin (Sl Tab) 0.4 Mg) 1 tab Q5M PRN SL CHEST PAIN; Start 06/06/16 at 10:30 Acetaminophen (Tylenol Liquid) 650 mg Q6H PRN PO PAIN LEVEL 1-3 OR FEVER; Start 06/06/16 at 10:30 Morphine Sulfate (morphine) 2 mg Q4H PRN IV PAIN LEVEL 7-10 Last administered on 06/15/16 00:22; Admin Dose 2 MG; Start 06/06/16 at 10:30 Docusate Sodium (Colace) 100 mg Q12H PRN PO CONSTIPATION; Start 06/06/16 at 10: 30 Magnesium Hydroxide (Milk Of Mag) 30 ml DAILY PRN PO CONSTIPATION; Start at 10:30 Bisacodyl (Dulcolax) 5 mg DAILY PRN PO CONSTIPATION; Start 06/06/16 at 10:30 Pantoprazole (Protonix Iv) 40 mg DAILY@06 IV Last administered on 06/16/16 06: 09; Admin Dose 40 MG; Start 06/07/16 at 06:00 Enoxaparin Sodium (Lovenox) 40 mg DAILY SC Last administered on 06/16/16 09:56 ; Admin Dose 40 MG; Start 06/07/16 at 09:00 Collagenase (Santyl) 1 applic DAILY TOP Last administered on 06/16/16 09:54; Admin Dose 1 APPLIC; Start 06/07/16 at 09:00 Collagenase (Santyl) 1 applic PRN PRN TOP WOUND CARE; Start 06/06/16 at 16:00 IV Flush (NS 10 ml) 10 ml PRN PRN IV IV PROTOCOL; Start 06/06/16 at 18:30 Ascorbic Acid (Vitamin C) 500 mg DAILY GTB Last administered on 06/16/16 09:54 ; Admin Dose 500 MG; Start 06/07/16 at 09:00 Aspirin (Aspirin) 325 mg DAILY GTB Last administered on 06/16/16 09:54; Admin Dose 325 MG; Start 06/07/16 at 09:00 Multivitamins (Thera-Plus) 5 ml DAILY GTB Last administered on 06/16/16 09:54 ; Admin Dose 5 ML; Start 06/07/16 at 09:00 Tamsulosin HCl (Flomax) 0.4 mg HS PO Last administered on 06/15/16 21:07; Admin Dose 0.4 MG; Start 06/07/16 at 21:00 Zinc Sulfate (Zinc Sulfate) 220 mg DAILY GTB Last administered on 06/16/16 09: 54; Admin Dose 220 MG; Start 06/07/16 at 09:00 Mupirocin (Bactroban) 1 applic BID TOP Last administered on 06/16/16 09:53; Admin Dose 1 APPLIC; Start 06/07/16 at 21:00 Metoclopramide HCl (Reglan) 10 mg Q6H PRN IV NAUSEA AND/OR VOMITING Last administered on 06/08/16 18:00; Admin Dose 10 MG; Start 06/08/16 at 09:30 Atenolol (Tenormin) 25 mg DAILY PO Last administered on 06/16/16 09:55; Admin Dose 25 MG; Start 06/08/16 at 11:30 Lorazepam 1 mg 1 mg Q6H PRN IV AGITATION/ANXIETY Last administered on 12:34; Admin Dose 1 MG; Start 06/09/16 at 13:30 Fluconazole 100 ml @ 100 mls/hr Q24H IVPB Last administered on 06/16/16 09:54 ; Admin Dose 100 MLS/HR; Start 06/10/16 at 09:00 Total Parenteral Nutrition 1,000 ml @ 40 mls/hr Q24H IV Last administered on 17:27; Admin Dose 40 MLS/HR; Start 06/12/16 at 18:00 Fat Emulsion Intravenous (Liposyn Ii 20%) 500 ml @ 21 mls/hr [id number] IV Last administered on 06/16/16 05:38; Admin Dose 21 MLS/HR; Start 06/12/16 at 18:00 Diagnostic Test (Pha) 1 ea 1 ea Q4 XX Last administered on 06/16/16 09:50; Admin Dose 1 EA; Start 06/12/16 at 17:00 Linezolid 300 ml @ 300 mls/hr Q12 IVPB Last administered on 06/16/16 09:54; Admin Dose 300 MLS/HR; Start 06/14/16 at 21:00 Colistimethate Sodium 75 mg/ Sodium Chloride 100 ml @ 200 mls/hr Q12 IVPB Last administered on 06/16/16 09:00; Admin Dose 200 MLS/HR; Start 06/14/16 at 21:00 Metronidazole (Flagyl 500 Mg (Pmx)) 100 ml @ 100 mls/hr Q6 IVPB Last administered on 06/16/16 06:09; Admin Dose 100 MLS/HR; Start 06/14/16 at 18:00 WANG BELL Jun 16, 2016 10:51
--- NOTE | 2016-06-16 17:20 | PN ---
DATE: 06/16/2016 SUBJECTIVE: No acute changes. The patient is lying comfortably in bed. No fevers. WBC is 26.8, platelets 193, neutrophils 82, bands 3, lymphs 2, monos 5. BUN 16, creatinine 0.62. MICROBIOLOGY: Abdominal fluid culture growing gram-negative rods, Klebsiella, enterococcus species Leuconostoc. DIAGNOSTICS: Chest x-ray revealed stable small bilateral pleural effusions with increased CHF. INDWELLINGS: Trach, PEG, Alfonso, intra-abdominal drainage catheter, and PICC line. ANTIMICROBIALS: The patient was started on: 1. Colistin. 2. Zyvox. 3. Flagyl. 4. Fluconazole. PHYSICAL EXAMINATION: GENERAL: This is a chronically ill-appearing, elderly man who is in no distress. HEENT: Head atraumatic, normocephalic. Sclerae anicteric. Buccal mucosa dry. NECK: Supple. Tracheostomy present. CHEST: Rise symmetrical. Breath sounds diminished to bases. HEART: S1, S2. ABDOMEN: Distended, soft. Bowel tones present. EXTREMITIES: With trace edema. ASSESSMENT: 1. Sepsis with persistent leukocytosis. 2. Perforated viscus, status post CT-guided drainage catheter placement with drainage of abscess. 3. Methicillin-resistant Staphylococcus aureus bacteremia on admission with repeat blood cultures n egative. 4. Enterococcal urinary tract infection. 5. Dysphagia. 6. Respiratory failure. 7. Pneumonia. PLAN: The patient remains clinically and hemodynamically stable. He is being followed by multiple consultants. We will continue him on current regimen. If white blood cell count continues to incre ase, we may consider repeat CT of the abdomen. Dictated By: [facility] ACCOUNT LIAISON for RASHIDA HUSSEIN/TRACY Conf#: [id number] DID#: [id number]
[2016-06-16] MEDS: TPN 1,000 ML IV SCH (17:34)
[2016-06-16] MEDS ORDERED: MAGNESIUM SULFATE 2 GM/50 ML 50 ML IVPB ONE (18:30)
[2016-06-16] MEDS: TAMSULOSIN (SR) 0.4 MG CAP PO SCH (20:48)
[2016-06-17] VITALS (28 sets, daily range): BP systolic 102–130; BP diastolic 49–88; PULSE 60–85; RESP 15–32
[2016-06-17] MEDS: metroNIDAZOLE 500 MG/NS (PMX) 100 ML IVPB SCH ×4 (00:27→17:53)
[2016-06-17] MEDS: ACCU-CHEK XX SCH ×6 (00:29→21:16)
[2016-06-17] MEDS: IPRATROPIUM (HFA) 12.9 GM INHALER INH SCH ×4 (01:18→21:41)
[2016-06-17] MEDS: ALBUTEROL 18 GM INHALER INH SCH ×4 (01:18→21:41)
[2016-06-17] MEDS: PANTOPRAZOLE 40 MG INJ IV SCH (06:03)
[2016-06-17 06:23] LABS: ADD SCAN DIFF NO
[2016-06-17 06:35] LABS: ABNORMAL IP MESSAGE 1; HEMATOCRIT 27.2 % (42.0-52.0); HEMOGLOBIN 8.7 g/dl (14.0-18.0); MEAN CORPUSCULAR HEMOGLOBIN 29.9 pg (29.0-33.0); MEAN CORPUSCULAR VOLUME 93.5 fl (82.0-101.0); MEAN PLATELET VOLUME 11.7 fl (7.4-10.4); PLATELET COUNT 170 10^3/UL (140-415); RED BLOOD COUNT 2.91 10^6/ul (4.70-6.10); WHITE BLOOD COUNT 25.1 10^3/ul (4.8-10.8)
[2016-06-17 06:50] LABS: CALCIUM 7.4 mg/dl (8.4-10.2); CREATININE 0.65 mg/dl (0.61-1.24); POTASSIUM 3.5 mmol/L (3.5-5.1)
[2016-06-17 06:54] LABS: MAGNESIUM 1.9 mg/dl (1.7-2.5); PHOSPHORUS 3.7 mg/dl (2.5-4.9)
--- NOTE | 2016-06-17 08:37 | CONS ---
Date/Time of Note Date/Time of Note DATE: 06/17/16 TIME: 08:33 Assessment/Plan Assessment/Plan Chief Complaint/Hosp Course ID PROGRESS NOTE TOTAL ABX DAY # => 1. Colistin. 2. Zyvox. 3. Flagyl.4. Fluconazole. 24H INTERVAL SUMMARY * Frail 85 yo elder male with chronic co-morbidities, Trach-Vent, lethargic, noncommunicative * VSS, no fevers, WBC down today, renal fx stable * MICROBIOLOGY: Abdominal fluid culture growing gram-negative rods, Klebsiella , enterococcus species Leuconostoc. * DIAGNOSTICS: Chest x-ray revealed stable small bilateral pleural effusions with increased CHF. * 06/17/16 0500 06/17/16 0500 PHYSICAL EXAMINATION: GENERAL: This is a chronically ill-appearing, elderly man who is in no distress. HEENT: Head atraumatic, normocephalic. Sclerae anicteric. Buccal mucosa dry. NECK: Supple. Tracheostomy present. CHEST: Rise symmetrical. Breath sounds diminished to bases. HEART: S1, S2. ABDOMEN: Distended, soft. Bowel tones present. EXTREMITIES: With trace edema. ASSESSMENT: PHYSICAL EXAMINATION: GENERAL: VSS, NADm, no fevers HEENT: Unremarkable, missing teeth NECK: Supple, trach-> Vent CHEST: Equal chest rise bilaterally, without dyspnea on observation HEART: Pulse RRR ABDOMEN: Soft, peg EXTREMITIES: Warm, PICC LUEXT w/TPN SKIN: Warm, dry ID ASSESSMENT: 85 yo M admitted with: 1. Sepsis with persistent leukocytosis. 2. Perforated viscus, status post CT-guided drainage catheter placement with drainage of abscess. 3. Methicillin-resistant Staphylococcus aureus bacteremia on admission with repeat blood cultures negative. 4. Enterococcal urinary tract infection. 5. Dysphagia. 6. Respiratory failure. 7. Pneumonia. INVASIVES: * Trach, PEG, FC, Intra-ABD drain, PICC LUEXT ABX ALLERGIES: KNDA CURRENT ABX: DAY # => 1. Colistin. 2. Zyvox. 3. Flagyl.4. Fluconazole. s/p ID RECOMMENDATIONS: 1. Continue current ABX over the weekend and monitor clinical status . Problems: Consultation Date/Type/Reason Admit Date/Time Jun 06, 2016 at 08:08 Initial Consult Date 06/07/16 Type of Consultation: ID Referring Provider: HOLLI LINDER MD Exam/Review of Systems Vital Signs Vitals Vital Signs Date Time Temp Pulse Resp B/P Pulse Ox O2 Delivery O2 Flow Rate FiO2 06/17/16 08:09 30 06/17/16 06:30 74 22 99 06/17/16 06:00 130/66 Mechanical Ventilator Trach Collar 06/17/16 04:00 97.7 Intake and Output 06/16/16 06/16/16 06/17/16 15:00 23:00 07:00 Intake Total 600 ml 1561 ml 427 ml Output Total 10 ml 2765 ml 1415 ml Balance 590 ml -1204 ml -988 ml Results Result Diagram: 06/17/16 0500 06/17/16 0500 Results 24 hrs Laboratory Tests Test 06/16/16 10:09 06/16/16 14:32 06/16/16 17:27 06/16/16 21:03 Bedside Glucose 113 99 93 102 Test 06/17/16 00:29 06/17/16 04:58 06/17/16 05:00 Bedside Glucose 132 95 White Blood Count 25.1 H Red Blood Count 2.91 L Hemoglobin 8.7 L Hematocrit 27.2 L Mean Corpuscular Volume 93.5 Mean Corpuscular Hemoglobin 29.9 Mean Corpuscular Hemoglobin Concent 32.0 Red Cell Distribution Width 16.0 H Platelet Count 170 Mean Platelet Volume 11.7 H Sodium Level 130 L Potassium Level 3.5 Chloride Level 101 Carbon Dioxide Level 27 Anion Gap 6 L Blood Urea Nitrogen 16 Creatinine 0.65 Glucose Level 93 Calcium Level 7.4 L Phosphorus Level 3.7 Magnesium Level 1.9 Medications Medications Current Medications Naloxone HCl (Narcan) 0.4 mg Q3M PRN IV DECREASED REPIRATORY RATE; Start at 10:30 Ondansetron HCl (Zofran Inj) 4 mg Q6H PRN IV NAUSEA AND/OR VOMITING; Start 01/12 at 10:30 Nitroglycerin (Nitroglycerin (Sl Tab) 0.4 Mg) 1 tab Q5M PRN SL CHEST PAIN; Start 06/06/16 at 10:30 Acetaminophen (Tylenol Liquid) 650 mg Q6H PRN PO PAIN LEVEL 1-3 OR FEVER; Start 06/06/16 at 10:30 Morphine Sulfate (morphine) 2 mg Q4H PRN IV PAIN LEVEL 7-10 Last administered on 06/15/16 00:22; Admin Dose 2 MG; Start 06/06/16 at 10:30 Docusate Sodium (Colace) 100 mg Q12H PRN PO CONSTIPATION; Start 06/06/16 at 10: 30 Magnesium Hydroxide (Milk Of Mag) 30 ml DAILY PRN PO CONSTIPATION; Start at 10:30 Bisacodyl (Dulcolax) 5 mg DAILY PRN PO CONSTIPATION; Start 06/06/16 at 10:30 Pantoprazole (Protonix Iv) 40 mg DAILY@06 IV Last administered on 06/17/16 06: 03; Admin Dose 40 MG; Start 06/07/16 at 06:00 Enoxaparin Sodium (Lovenox) 40 mg DAILY SC Last administered on 06/16/16 09:56 ; Admin Dose 40 MG; Start 06/07/16 at 09:00 Collagenase (Santyl) 1 applic DAILY TOP Last administered on 06/16/16 09:54; Admin Dose 1 APPLIC; Start 06/07/16 at 09:00 Collagenase (Santyl) 1 applic PRN PRN TOP WOUND CARE; Start 06/06/16 at 16:00 IV Flush (NS 10 ml) 10 ml PRN PRN IV IV PROTOCOL; Start 06/06/16 at 18:30 Ascorbic Acid (Vitamin C) 500 mg DAILY GTB Last administered on 06/16/16 09:54 ; Admin Dose 500 MG; Start 06/07/16 at 09:00 Aspirin (Aspirin) 325 mg DAILY GTB Last administered on 06/16/16 09:54; Admin Dose 325 MG; Start 06/07/16 at 09:00 Multivitamins (Thera-Plus) 5 ml DAILY GTB Last administered on 06/16/16 09:54 ; Admin Dose 5 ML; Start 06/07/16 at 09:00 Tamsulosin HCl (Flomax) 0.4 mg HS PO Last administered on 06/16/16 20:48; Admin Dose 0.4 MG; Start 06/07/16 at 21:00 Zinc Sulfate (Zinc Sulfate) 220 mg DAILY GTB Last administered on 06/16/16 09: 54; Admin Dose 220 MG; Start 06/07/16 at 09:00 Mupirocin (Bactroban) 1 applic BID TOP Last administered on 06/16/16 20:49; Admin Dose 1 APPLIC; Start 06/07/16 at 21:00 Metoclopramide HCl (Reglan) 10 mg Q6H PRN IV NAUSEA AND/OR VOMITING Last administered on 06/08/16 18:00; Admin Dose 10 MG; Start 06/08/16 at 09:30 Atenolol (Tenormin) 25 mg DAILY PO Last administered on 06/16/16 09:55; Admin Dose 25 MG; Start 06/08/16 at 11:30 Lorazepam 1 mg 1 mg Q6H PRN IV AGITATION/ANXIETY Last administered on 12:34; Admin Dose 1 MG; Start 06/09/16 at 13:30 Fluconazole 100 ml @ 100 mls/hr Q24H IVPB Last administered on 06/16/16 09:54 ; Admin Dose 100 MLS/HR; Start 06/10/16 at 09:00 Total Parenteral Nutrition 1,000 ml @ 40 mls/hr Q24H IV Last administered on 17:34; Admin Dose 40 MLS/HR; Start 06/12/16 at 18:00 Fat Emulsion Intravenous (Liposyn Ii 20%) 500 ml @ 21 mls/hr [id number] IV Last administered on 06/16/16 17:28; Admin Dose 21 MLS/HR; Start 06/12/16 at 18:00 Diagnostic Test (Pha) 1 ea 1 ea Q4 XX Last administered on 06/17/16 05:00; Admin Dose 1 EA; Start 06/12/16 at 17:00 Linezolid 300 ml @ 300 mls/hr Q12 IVPB Last administered on 06/16/16 20:48; Admin Dose 300 MLS/HR; Start 06/14/16 at 21:00 Colistimethate Sodium 75 mg/ Sodium Chloride 100 ml @ 200 mls/hr Q12 IVPB Last administered on 06/16/16 20:42; Admin Dose 200 MLS/HR; Start 06/14/16 at 21:00 Metronidazole (Flagyl 500 Mg (Pmx)) 100 ml @ 100 mls/hr Q6 IVPB Last administered on 06/17/16 06:03; Admin Dose 100 MLS/HR; Start 06/14/16 at 18:00 LINDSAY LAGUNAS NP Jun 17, 2016 08:37
[2016-06-17] MEDS: LINEZOLID 600 MG/D5W (PMX) 300 ML IVPB SCH ×2 (09:00→21:08)
[2016-06-17] MEDS: ENOXAPARIN 40 MG/0.4 ML SYG SC SCH (09:48)
[2016-06-17] MEDS: COLLAGENASE 30 GM TUBE TOP SCH (09:49)
[2016-06-17] MEDS: MULTIVITAMINS 5 ML CUP GTB SCH (10:11)
[2016-06-17] MEDS: ASPIRIN 325 MG TAB GTB SCH (10:13)
[2016-06-17] MEDS: ZINC SULFATE 220 MG CAP GTB SCH (10:13)
[2016-06-17] MEDS: ASCORBIC ACID 500 MG TAB GTB SCH (10:13)
[2016-06-17] MEDS: ATENOLOL 25 MG TAB PO SCH (10:14)
[2016-06-17] MEDS: FLUCONAZOLE 200 MG/NS (PMX) 100 ML IVPB SCH (10:19)
[2016-06-17 10:21] LABS: LYMPHOCYTES # 1.8 10^3/ul (0.8-2.9); MONOCYTE # 1.3 10^3/ul (0.3-0.9); MYELOCYTES # 0.8; NEUTROPHIL # 20.6 10^3/ul (1.6-7.5)
[2016-06-17] MEDS: MUPIROCIN 2% 22 GM OINT TOP SCH ×2 (10:43→21:08)
--- NOTE | 2016-06-17 11:16 | RADRPT ---
PROCEDURE: XR Chest. CLINICAL INDICATION: Pneumonia, CHF TECHNIQUE: An AP view of the chest was obtained. COMPARISON: Chest x-ray dated 06/16/2016 FINDINGS: There is a right subclavian dual chamber pacemaker. A tracheostomy tube is in place. There is prominence of the interstitial markings. There are small bilateral pleural effusions. No pneumothorax is seen. The cardiomediastinal silhouette is mildly enlarged . Calcifications are se en within the aortic arch. The osseous structures demonstrate senescent changes. IMPRESSION: 1. Findings suggesting interstitial edema with small bilateral pleural effusions. Lung aeration is improved when compared to the prior examination. 2. Mild cardiomegaly and aortic atherosclerosis. 3. Tubes and lines, as described above. RPTAT: HH .Kaitlin Vieira MD, Date Time Electronically viewed and signed by .Kaitlin Vieira MD, on 06/17/2016 11:16 .G/
[2016-06-17] MEDS: COLISTIMETHATE 75 MG in SOD CHLORIDE 0.9% 100 ML IVPB SCH ×2 (11:59→21:07)
--- NOTE | 2016-06-17 12:37 | PN ---
Date/Time of Note Date/Time of Note DATE: 06/17/16 TIME: 12:35 Assessment/Plan VTE Prophylaxis VTE Prophylaxis Intervention: SCD's Lines/Catheters IV Catheter Type (from Nrs): PICC Line Central line still needed: Yes Urinary Cath still in place: Yes Reason Cath still needed: urinary retention Assessment/Plan Chief Complaint/Hosp Course 1. Septic shock.better 2. Pneumonia. aspiration 3. Leukocytosis.better 4. Hematuria. better 5. Lactic acidosis. 6. Respiratory failure. 7. Gastrostomy tube placement. 8. Anemia. 9. Atrial fibrillation. 10. History of congestive heart failure with decreased ejection fraction. 11. vdrf 12. History of paroxysmal atrial fibrillation. 13. The patient now has decubitus. 14 uti Problems: Assessment/Plan 1. waiting transfer to [place] 2. Spoke to dr Garcia Subjective 24 Hr Interval Summary Subjective hx not possible: pt non-verbal Exam/Review of Systems Vital Signs Vitals Vital Signs Date Time Temp Pulse Resp B/P Pulse Ox O2 Delivery O2 Flow Rate FiO2 06/17/16 12:22 67 06/17/16 11:05 22 97 30 06/17/16 06:00 130/66 Mechanical Ventilator Trach Collar 06/17/16 04:00 97.7 Intake and Output 06/16/16 06/16/16 06/17/16 15:00 23:00 07:00 Intake Total 600 ml 1561 ml 427 ml Output Total 10 ml 2765 ml 1415 ml Balance 590 ml -1204 ml -988 ml Exam Constitutional: alert, non-verbal Head: normocephalic Eyes: nl conjunctiva ENMT: nl external ears & nose Neck: other (tracheostomy) Cardiovascular: other (paced 100 %) Gastrointestinal: soft Genitourinary - Male: nl penis Musculoskeletal: nl extremities to inspection Results Result Diagram: 06/17/16 0500 06/17/16 0500 Results 24 hrs Laboratory Tests Test 06/16/16 14:32 06/16/16 17:27 06/16/16 21:03 06/17/16 00:29 Bedside Glucose 99 93 102 132 Test 06/17/16 04:58 06/17/16 05:00 06/17/16 08:50 Bedside Glucose 95 93 White Blood Count 25.1 H Red Blood Count 2.91 L Hemoglobin 8.7 L Hematocrit 27.2 L Mean Corpuscular Volume 93.5 Mean Corpuscular Hemoglobin 29.9 Mean Corpuscular Hemoglobin Concent 32.0 Red Cell Distribution Width 16.0 H Platelet Count 170 Mean Platelet Volume 11.7 H Neutrophils % 82.0 H Band Neutrophils % 2.0 Lymphocytes % 7.0 L Monocytes % 5.0 Metamyelocytes % 1.0 H Myelocytes % 3.0 H Neutrophils # 20.6 H Lymphocytes # 1.8 Monocytes # 1.3 H Metamyelocytes # 0.3 Myelocytes # 0.8 Sodium Level 130 L Potassium Level 3.5 Chloride Level 101 Carbon Dioxide Level 27 Anion Gap 6 L Blood Urea Nitrogen 16 Creatinine 0.65 Glucose Level 93 Calcium Level 7.4 L Phosphorus Level 3.7 Magnesium Level 1.9 Medications Medications Current Medications Naloxone HCl (Narcan) 0.4 mg Q3M PRN IV DECREASED REPIRATORY RATE; Start at 10:30 Ondansetron HCl (Zofran Inj) 4 mg Q6H PRN IV NAUSEA AND/OR VOMITING; Start 01/12 at 10:30 Nitroglycerin (Nitroglycerin (Sl Tab) 0.4 Mg) 1 tab Q5M PRN SL CHEST PAIN; Start 06/06/16 at 10:30 Acetaminophen (Tylenol Liquid) 650 mg Q6H PRN PO PAIN LEVEL 1-3 OR FEVER; Start 06/06/16 at 10:30 Morphine Sulfate (morphine) 2 mg Q4H PRN IV PAIN LEVEL 7-10 Last administered on 06/15/16 00:22; Admin Dose 2 MG; Start 06/06/16 at 10:30 Docusate Sodium (Colace) 100 mg Q12H PRN PO CONSTIPATION; Start 06/06/16 at 10: 30 Magnesium Hydroxide (Milk Of Mag) 30 ml DAILY PRN PO CONSTIPATION; Start at 10:30 Bisacodyl (Dulcolax) 5 mg DAILY PRN PO CONSTIPATION; Start 06/06/16 at 10:30 Pantoprazole (Protonix Iv) 40 mg DAILY@06 IV Last administered on 06/17/16 06: 03; Admin Dose 40 MG; Start 06/07/16 at 06:00 Enoxaparin Sodium (Lovenox) 40 mg DAILY SC Last administered on 06/17/16 09:48 ; Admin Dose 40 MG; Start 06/07/16 at 09:00 Collagenase (Santyl) 1 applic DAILY TOP Last administered on 06/17/16 09:49; Admin Dose 1 APPLIC; Start 06/07/16 at 09:00 Collagenase (Santyl) 1 applic PRN PRN TOP WOUND CARE; Start 06/06/16 at 16:00 IV Flush (NS 10 ml) 10 ml PRN PRN IV IV PROTOCOL; Start 06/06/16 at 18:30 Ascorbic Acid (Vitamin C) 500 mg DAILY GTB Last administered on 06/17/16 10:13 ; Admin Dose 500 MG; Start 06/07/16 at 09:00 Aspirin (Aspirin) 325 mg DAILY GTB Last administered on 06/17/16 10:13; Admin Dose 325 MG; Start 06/07/16 at 09:00 Multivitamins (Thera-Plus) 5 ml DAILY GTB Last administered on 06/17/16 10:11 ; Admin Dose 5 ML; Start 06/07/16 at 09:00 Tamsulosin HCl (Flomax) 0.4 mg HS PO Last administered on 06/16/16 20:48; Admin Dose 0.4 MG; Start 06/07/16 at 21:00 Zinc Sulfate (Zinc Sulfate) 220 mg DAILY GTB Last administered on 06/17/16 10: 13; Admin Dose 220 MG; Start 06/07/16 at 09:00 Mupirocin (Bactroban) 1 applic BID TOP Last administered on 06/17/16 10:43; Admin Dose 1 APPLIC; Start 06/07/16 at 21:00 Metoclopramide HCl (Reglan) 10 mg Q6H PRN IV NAUSEA AND/OR VOMITING Last administered on 06/08/16 18:00; Admin Dose 10 MG; Start 06/08/16 at 09:30 Atenolol (Tenormin) 25 mg DAILY PO Last administered on 06/17/16 10:14; Admin Dose 25 MG; Start 06/08/16 at 11:30 Lorazepam 1 mg 1 mg Q6H PRN IV AGITATION/ANXIETY Last administered on 12:34; Admin Dose 1 MG; Start 06/09/16 at 13:30 Fluconazole 100 ml @ 100 mls/hr Q24H IVPB Last administered on 06/17/16 10:19 ; Admin Dose 100 MLS/HR; Start 06/10/16 at 09:00 Total Parenteral Nutrition 1,000 ml @ 40 mls/hr Q24H IV Last administered on 17:34; Admin Dose 40 MLS/HR; Start 06/12/16 at 18:00 Fat Emulsion Intravenous (Liposyn Ii 20%) 500 ml @ 21 mls/hr [id number] IV Last administered on 06/16/16 17:28; Admin Dose 21 MLS/HR; Start 06/12/16 at 18:00 Diagnostic Test (Pha) 1 ea 1 ea Q4 XX Last administered on 06/17/16 09:00; Admin Dose 1 EA; Start 06/12/16 at 17:00 Linezolid 300 ml @ 300 mls/hr Q12 IVPB Last administered on 06/17/16 09:00; Admin Dose 300 MLS/HR; Start 06/14/16 at 21:00 Colistimethate Sodium 75 mg/ Sodium Chloride 100 ml @ 200 mls/hr Q12 IVPB Last administered on 06/17/16 11:59; Admin Dose 200 MLS/HR; Start 06/14/16 at 21:00 Metronidazole (Flagyl 500 Mg (Pmx)) 100 ml @ 100 mls/hr Q6 IVPB Last administered on 06/17/16 12:01; Admin Dose 100 MLS/HR; Start 06/14/16 at 18:00 WANG BELL Jun 17, 2016 12:37
[2016-06-17] MEDS: POTASSIUM CHLORIDE 250 ML IVPB SCH ×2 (13:12→17:53)
--- NOTE | 2016-06-17 15:37 | CONS ---
Date/Time of Note Date/Time of Note DATE: 06/17/16 TIME: 15:35 Assessment/Plan Assessment/Plan Additional Assessment/Plan 1.CHF-systolic acute on chonic-reasonable volume status at this time - con'tto keep euvolemic. 2.Resp failure s/p trach on vent - con't resp rx - stable 3.Cardiomyopathy-LVEF 25-30%- no intervention planned now 4.HTN-with episodes of borderline Hotn 5.PPM-s/p interrogation with proper function-episodes of SVT and shot episode VT 06/09/16/good battery life - good function 6.Leukocytosis 7.Tachycardia-PAF- rate controlled 8.Perforated viscous s/p IR drain placement Consultation Date/Type/Reason Admit Date/Time Jun 06, 2016 at 08:08 Initial Consult Date 06/07/16 Type of Consultation: ID Referring Provider: HOLLI LINDER MD 24 HR Interval Summary Free Text/Dictation NO acute change - out of ICU to tele now - con't to monitor closely ROS: No fever, no chills, no nausea, no vomiting, no diarrhea/constipation No recent weight changes No chest pain, no PND, no orthopnea No dizziness, blurred vision No thirst, no heat or cold intolerance (per nurse) Exam/Review of Systems Vital Signs Vitals Vital Signs Date Time Temp Pulse Resp B/P Pulse Ox O2 Delivery O2 Flow Rate FiO2 06/17/16 13:20 65 24 96 30 06/17/16 06:00 130/66 Mechanical Ventilator Trach Collar 06/17/16 04:00 97.7 Intake and Output 06/16/16 06/16/16 06/17/16 15:00 23:00 07:00 Intake Total 600 ml 1561 ml 427 ml Output Total 10 ml 2765 ml 1415 ml Balance 590 ml -1204 ml -988 ml Exam General: WN/WD/NAD, AOx 0 HEENT: Unicetric/atraumatic/EOMI (does not follow commands) NECK: no thyromegaly, trach Lymph: no lymphadenopathy HEART: regular with no S3, II/ systolic murmur at apex LUNGS: Coarse sounds ABD: soft, NT, ND, +BS : Intact Neuro: non focal SKIN: chronic changes EXT: trace edema Results Result Diagram: 06/17/16 0500 06/17/16 0500 Results 24 hrs Laboratory Tests Test 4/21/17 17:27 06/16/16 21:03 06/17/16 00:29 06/17/16 04:58 Bedside Glucose 93 102 132 95 Test 06/17/16 05:00 06/17/16 08:50 06/17/16 13:13 White Blood Count 25.1 H Red Blood Count 2.91 L Hemoglobin 8.7 L Hematocrit 27.2 L Mean Corpuscular Volume 93.5 Mean Corpuscular Hemoglobin 29.9 Mean Corpuscular Hemoglobin Concent 32.0 Red Cell Distribution Width 16.0 H Platelet Count 170 Mean Platelet Volume 11.7 H Neutrophils % 82.0 H Band Neutrophils % 2.0 Lymphocytes % 7.0 L Monocytes % 5.0 Metamyelocytes % 1.0 H Myelocytes % 3.0 H Neutrophils # 20.6 H Lymphocytes # 1.8 Monocytes # 1.3 H Metamyelocytes # 0.3 Myelocytes # 0.8 Sodium Level 130 L Potassium Level 3.5 Chloride Level 101 Carbon Dioxide Level 27 Anion Gap 6 L Blood Urea Nitrogen 16 Creatinine 0.65 Glucose Level 93 Calcium Level 7.4 L Phosphorus Level 3.7 Magnesium Level 1.9 Bedside Glucose 93 130 Medications Medications Current Medications Naloxone HCl (Narcan) 0.4 mg Q3M PRN IV DECREASED REPIRATORY RATE; Start at 10:30 Ondansetron HCl (Zofran Inj) 4 mg Q6H PRN IV NAUSEA AND/OR VOMITING; Start 01/12 at 10:30 Nitroglycerin (Nitroglycerin (Sl Tab) 0.4 Mg) 1 tab Q5M PRN SL CHEST PAIN; Start 06/06/16 at 10:30 Acetaminophen (Tylenol Liquid) 650 mg Q6H PRN PO PAIN LEVEL 1-3 OR FEVER; Start 06/06/16 at 10:30 Morphine Sulfate (morphine) 2 mg Q4H PRN IV PAIN LEVEL 7-10 Last administered on 06/15/16t 00:22; Admin Dose 2 MG; Start 06/06/16 at 10:30 Docusate Sodium (Colace) 100 mg Q12H PRN PO CONSTIPATION; Start 06/06/16 at 10: 30 Magnesium Hydroxide (Milk Of Mag) 30 ml DAILY PRN PO CONSTIPATION; Start at 10:30 Bisacodyl (Dulcolax) 5 mg DAILY PRN PO CONSTIPATION; Start 06/06/16 at 10:30 Pantoprazole (Protonix Iv) 40 mg DAILY@06 IV Last administered on 06/17/16 06: 03; Admin Dose 40 MG; Start 06/07/16 at 06:00 Enoxaparin Sodium (Lovenox) 40 mg DAILY SC Last administered on 06/17/16 09:48 ; Admin Dose 40 MG; Start 06/07/16 at 09:00 Collagenase (Santyl) 1 applic DAILY TOP Last administered on 06/17/16 09:49; Admin Dose 1 APPLIC; Start 06/07/16 at 09:00 Collagenase (Santyl) 1 applic PRN PRN TOP WOUND CARE; Start 06/06/16 at 16:00 IV Flush (NS 10 ml) 10 ml PRN PRN IV IV PROTOCOL; Start 06/06/16 at 18:30 Ascorbic Acid (Vitamin C) 500 mg DAILY GTB Last administered on 06/17/16 10:13 ; Admin Dose 500 MG; Start 06/07/16 at 09:00 Aspirin (Aspirin) 325 mg DAILY GTB Last administered on 06/17/16 10:13; Admin Dose 325 MG; Start 06/07/16 at 09:00 Multivitamins (Thera-Plus) 5 ml DAILY GTB Last administered on 06/17/16 10:11 ; Admin Dose 5 ML; Start 06/07/16 at 09:00 Tamsulosin HCl (Flomax) 0.4 mg HS PO Last administered on 06/16/16 20:48; Admin Dose 0.4 MG; Start 06/07/16 at 21:00 Zinc Sulfate (Zinc Sulfate) 220 mg DAILY GTB Last administered on 06/17/16 10: 13; Admin Dose 220 MG; Start 06/07/16 at 09:00 Mupirocin (Bactroban) 1 applic BID TOP Last administered on 06/17/16 10:43; Admin Dose 1 APPLIC; Start 06/07/16 at 21:00 Metoclopramide HCl (Reglan) 10 mg Q6H PRN IV NAUSEA AND/OR VOMITING Last administered on 06/08/16 18:00; Admin Dose 10 MG; Start 06/08/16 at 09:30 Atenolol (Tenormin) 25 mg DAILY PO Last administered on 06/17/16 10:14; Admin Dose 25 MG; Start 06/08/16 at 11:30 Lorazepam 1 mg 1 mg Q6H PRN IV AGITATION/ANXIETY Last administered on 12:34; Admin Dose 1 MG; Start 06/09/16 at 13:30 Fluconazole 100 ml @ 100 mls/hr Q24H IVPB Last administered on 06/17/16 10:19 ; Admin Dose 100 MLS/HR; Start 06/10/16 at 09:00 Total Parenteral Nutrition 1,000 ml @ 40 mls/hr Q24H IV Last administered on 17:34; Admin Dose 40 MLS/HR; Start 06/12/16 at 18:00 Fat Emulsion Intravenous (Liposyn Ii 20%) 500 ml @ 21 mls/hr [id number] IV Last administered on 06/16/16 17:28; Admin Dose 21 MLS/HR; Start 06/12/16 at 18:00 Diagnostic Test (Pha) 1 ea 1 ea Q4 XX Last administered on 06/17/16 13:13; Admin Dose 1 EA; Start 06/12/16 at 17:00 Linezolid 300 ml @ 300 mls/hr Q12 IVPB Last administered on 06/17/16 09:00; Admin Dose 300 MLS/HR; Start 06/14/16 at 21:00 Colistimethate Sodium 75 mg/ Sodium Chloride 100 ml @ 200 mls/hr Q12 IVPB Last administered on 06/17/16 11:59; Admin Dose 200 MLS/HR; Start 06/14/16 at 21:00 Metronidazole 100 ml @ 100 mls/hr Q6 IVPB Last administered on 06/17/16 12:01 ; Admin Dose 100 MLS/HR; Start 06/14/16 at 18:00 Potassium Chloride (KCl 40 MEQ/250 ML NS) 250 ml @ 62.5 mls/hr Q4H IVPB Last administered on 06/17/16 13:12; Admin Dose 62.5 MLS/HR; Start 06/17/16 at 13:00 ; Stop 06/17/16 at 20:59 ZEUS CHAPPELL MD Jun 17, 2016 15:37
[2016-06-17] MEDS: TPN 1,000 ML IV SCH (16:58)
[2016-06-17] MEDS: TAMSULOSIN (SR) 0.4 MG CAP PO SCH (21:07)
[2016-06-18] VITALS (24 sets, daily range): BP systolic 105–128; BP diastolic 56–66; PULSE 60–88; RESP 15–32
[2016-06-18] MEDS: metroNIDAZOLE 500 MG/NS (PMX) 100 ML IVPB SCH ×4 (01:00→17:17)
[2016-06-18] MEDS: ALBUTEROL 18 GM INHALER INH SCH ×5 (01:04→20:55)
[2016-06-18] MEDS: IPRATROPIUM (HFA) 12.9 GM INHALER INH SCH ×5 (01:04→20:55)
[2016-06-18] MEDS: ACCU-CHEK XX SCH ×6 (01:32→21:51)
[2016-06-18] MEDS: PANTOPRAZOLE 40 MG INJ IV SCH (06:09)
[2016-06-18 07:58] LABS: ABNORMAL IP MESSAGE 1; BASOPHILS % 0.1 % (0.0-2.0); EOSINOPHILS # 0.1 10^3/ul (0.0-0.5); HEMATOCRIT 38.3 % (42.0-52.0); HEMOGLOBIN 11.9 g/dl (14.0-18.0); LYMPHOCYTES % 7.2 % (15.0-51.0); MEAN CORPUSCULAR HEMOGLOBIN 28.7 pg (29.0-33.0); MEAN CORPUSCULAR HGB CONC 31.1 g/dl (32.0-37.0); MEAN CORPUSCULAR VOLUME 92.5 fl (82.0-101.0); MEAN PLATELET VOLUME 11.7 fl (7.4-10.4); MONOCYTE # 0.6 10^3/ul (0.3-0.9); MONOCYTES % 4.6 % (0.0-11.0); NEUTROPHIL # 11.2 10^3/ul (1.6-7.5); PLATELET COUNT 121 10^3/UL (140-415); RED BLOOD COUNT 4.14 10^6/ul (4.70-6.10); RED CELL DISTRIBUTION WIDTH 16.3 % (11.5-14.5); WHITE BLOOD COUNT 13.7 10^3/ul (4.8-10.8)
[2016-06-18 08:04] LABS: ADD SCAN DIFF YES
[2016-06-18 08:14] LABS: CALCIUM 7.6 mg/dl (8.4-10.2); CREATININE 0.71 mg/dl (0.61-1.24); POTASSIUM 4.4 mmol/L (3.5-5.1)
[2016-06-18] MEDS: COLLAGENASE 30 GM TUBE TOP SCH (09:00)
[2016-06-18] MEDS: ASCORBIC ACID 500 MG TAB GTB SCH (10:02)
[2016-06-18] MEDS: MULTIVITAMINS 5 ML CUP GTB SCH (10:02)
[2016-06-18] MEDS: FLUCONAZOLE 200 MG/NS (PMX) 100 ML IVPB SCH (10:02)
[2016-06-18] MEDS: ASPIRIN 325 MG TAB GTB SCH (10:02)
[2016-06-18] MEDS: LINEZOLID 600 MG/D5W (PMX) 300 ML IVPB SCH ×2 (10:02→21:51)
[2016-06-18] MEDS: ZINC SULFATE 220 MG CAP GTB SCH (10:02)
[2016-06-18] MEDS: MUPIROCIN 2% 22 GM OINT TOP SCH ×2 (10:03→21:51)
[2016-06-18] MEDS: ATENOLOL 25 MG TAB PO SCH (10:03)
[2016-06-18] MEDS: ENOXAPARIN 40 MG/0.4 ML SYG SC SCH (10:10)
[2016-06-18] MEDS: COLISTIMETHATE 75 MG in SOD CHLORIDE 0.9% 100 ML IVPB SCH ×2 (10:11→21:51)
--- NOTE | 2016-06-18 14:53 | PN ---
Date/Time of Note Date/Time of Note DATE: 06/17/16 TIME: 14:51 Assessment/Plan Lines/Catheters IV Catheter Type (from [facility], [place]): PICC Line Alfonso in Place (from [facility], [place]): Yes Assessment/Plan Chief Complaint/Hosp Course 1. Contained perforated viscous s/p IR drain 06/11. Cx noted. Leukocytosis -continue drain -abx per ID -supportive 2. Pneumonia -pulmonary toilette -abx 3. Sepsis, significant leukocytosis -abx -as above 4. Sacral decubitus ulcer -off load -nutrition optimization -vit c -local care 5. Chronic AFib -rate control -optimize electrolytes -tx infections 6. Anemia -monitor 7. Hypoalbuminemia -eventual nutritional optimization 8. CHF -judicious fluid management -cardiac optimization Thank you, Late entry 06/17 Problems: Subjective 24 Hr Interval Summary No f/c. No cough. No sz. No rashes. No bloating. No vomiting. No bleeding. Leukocytosis Exam/Review of Systems Vital Signs Vitals Vital Signs Date Time Temp Pulse Resp B/P Pulse Ox O2 Delivery O2 Flow Rate FiO2 06/18/16 13:15 79 32 96 30 06/18/16 12:00 98.9 128/60 06/17/16 06:00 Mechanical Ventilator Trach Collar Intake and Output 06/17/16 06/17/16 06/18/16 15:00 23:00 07:00 Intake Total 400 ml 400 ml 0 ml Output Total 10 ml 1075 ml 1900 ml Balance 390 ml -675 ml -1900 ml Exam Free Text/Dictation Constitutional: No alert, No distress, No oriented Psych: confusion, No anxiety Head: atraumatic, normocephalic Eyes: PERRL, nl conjunctiva, No icteric ENMT: mucosa pink and moist, nl external ears & nose, nl lips & teeth Neck: jvd (min), non-tender Respiratory: No congested cough, No labored breathing Cardiovascular: No edema, No regular rate and rhythm Gastrointestinal: soft, drain Left side, PEG No distended, No firm, No rebound or guarding Musculoskeletal: No joint tenderness, No nl gait and stance Extremities: No calf tenderness, No cyanosis Neurological: No nl mental status, No nl speech, No nl strength Skin: nl turgor, rash or lesions (Sacral and LE decubitus ulcerations), No diaphoresis Lymph: nl lymph nodes Results Result Diagram: 06/18/16 0635 06/18/16 0700 DAREK AHMADI MD Jun 18, 2016 14:53
--- NOTE | 2016-06-18 14:54 | PN ---
Date/Time of Note Date/Time of Note DATE: 06/18/16 TIME: 14:53 Assessment/Plan Lines/Catheters IV Catheter Type (from [facility]): PICC Line Alfonso in Place (from [facility]): Yes Assessment/Plan Chief Complaint/Hosp Course 1. Contained perforated viscous s/p IR drain 06/11. Cx noted. Leukocytosis improving/ -continue drain -abx per ID -supportive 2. Pneumonia -pulmonary toilette -abx 3. Sepsis, significant leukocytosis -abx -as above 4. Sacral decubitus ulcer -off load -nutrition optimization -vit c -local care 5. Chronic AFib -rate control -optimize electrolytes -tx infections 6. Anemia -monitor 7. Hypoalbuminemia -eventual nutritional optimization 8. CHF -judicious fluid management -cardiac optimization Thank you, Problems: Subjective 24 Hr Interval Summary No f/c. No cough. No sz. No rashes. No bloating. No vomiting. No bleeding. Leukocytosis improving Exam/Review of Systems Vital Signs Vitals Vital Signs Date Time Temp Pulse Resp B/P Pulse Ox O2 Delivery O2 Flow Rate FiO2 06/18/16 13:15 79 32 96 30 06/18/16 12:00 98.9 128/60 06/17/16 06:00 Mechanical Ventilator Trach Collar Intake and Output 06/17/16 06/17/16 06/18/16 15:00 23:00 07:00 Intake Total 400 ml 400 ml 0 ml Output Total 10 ml 1075 ml 1900 ml Balance 390 ml -675 ml -1900 ml Exam Free Text/Dictation Constitutional: No alert, No distress, No oriented Psych: confusion, No anxiety Head: atraumatic, normocephalic Eyes: PERRL, nl conjunctiva, No icteric ENMT: mucosa pink and moist, nl external ears & nose, nl lips & teeth Neck: jvd (min), non-tender Respiratory: No congested cough, No labored breathing Cardiovascular: No edema, No regular rate and rhythm Gastrointestinal: soft, drain Left side, PEG No distended, No firm, No rebound or guarding Musculoskeletal: No joint tenderness, No nl gait and stance Extremities: No calf tenderness, No cyanosis Neurological: No nl mental status, No nl speech, No nl strength Skin: nl turgor, rash or lesions (Sacral and LE decubitus ulcerations), No diaphoresis Lymph: nl lymph nodes Results Result Diagram: 06/18/16 0635 06/18/16 0700 DAREK AHMADI MD Jun 18, 2016 14:54
--- NOTE | 2016-06-18 15:11 | CONS ---
Date/Time of Note Date/Time of Note DATE: 06/18/16 TIME: 15:09 Assessment/Plan Assessment/Plan Additional Assessment/Plan 1.CHF-systolic acute on chonic-reasonable volume status at this time - con'tto keep euvolemic. BETTER NOW. 2.Resp failure s/p trach on vent - con't resp rx - stable 3.Cardiomyopathy-LVEF 25-30%- no intervention planned now 4.HTN-with episodes of borderline Hotn 5.PPM-s/p interrogation with proper function-episodes of SVT and shot episode VT 06/09/16/good battery life - good function INTERMITTENT PACING 6.Leukocytosis 7.Tachycardia-PAF- rate controlled 8.Perforated viscous s/p IR drain placement Consultation Date/Type/Reason Admit Date/Time Jun 06, 2016 at 08:08 Initial Consult Date 06/07/16 Type of Consultation: ID Referring Provider: HOLLI LINDER MD 24 HR Interval Summary Free Text/Dictation NO acute events - stable fluid status - intermittently paced. ROS: No fever, no chills, no nausea, no vomiting, no diarrhea/constipation No recent weight changes No chest pain, no PND, no orthopnea No dizziness, blurred vision No thirst, no heat or cold intolerance (per nurse) Exam/Review of Systems Vital Signs Vitals Vital Signs Date Time Temp Pulse Resp B/P Pulse Ox O2 Delivery O2 Flow Rate FiO2 06/18/16 13:15 79 32 96 30 06/18/16 12:00 98.9 128/60 06/17/16 06:00 Mechanical Ventilator Trach Collar Intake and Output 06/17/16 06/17/16 06/18/16 15:00 23:00 07:00 Intake Total 400 ml 400 ml 0 ml Output Total 10 ml 1075 ml 1900 ml Balance 390 ml -675 ml -1900 ml Exam General: WN/WD/NAD, AOx 0 HEENT: Unicetric/atraumatic/EOMI (does not follow commands) NECK: no thyromegaly, trach Lymph: no lymphadenopathy HEART: regular with no S3, II/ systolic murmur at apex, pacer LUNGS: Coarse sounds ABD: soft, NT, ND, +BS : Intact Neuro: non focal SKIN: chronic changes EXT: trace edema Results Result Diagram: 06/18/16 0635 06/18/16 0700 Results 24 hrs Laboratory Tests Test 06/17/16 18:14 06/17/16 21:15 06/18/16 01:28 06/18/16 06:06 Bedside Glucose 111 93 120 98 Test 06/18/16 06:35 06/18/16 07:00 06/18/16 10:05 06/18/16 14:08 White Blood Count 13.7 #H Red Blood Count 4.14 #L Hemoglobin 11.9 #L Hematocrit 38.3 #L Mean Corpuscular Volume 92.5 Mean Corpuscular Hemoglobin 28.7 L Mean Corpuscular Hemoglobin Concent 31.1 L Red Cell Distribution Width 16.3 H Platelet Count 121 #L Mean Platelet Volume 11.7 H Neutrophils % 82.0 H Lymphocytes % 7.2 L Monocytes % 4.6 Eosinophils % 1.0 Basophils % 0.1 Nucleated Red Blood Cells % 0.0 Neutrophils # 11.2 H Lymphocytes # 1.0 Monocytes # 0.6 Eosinophils # 0.1 Basophils # 0.0 Nucleated Red Blood Cells # 0.0 Sodium Level 130 L Potassium Level 4.4 Chloride Level 103 Carbon Dioxide Level 24 Anion Gap 7 L Blood Urea Nitrogen 18 Creatinine 0.71 Glucose Level 89 Calcium Level 7.6 L Bedside Glucose 92 110 Medications Medications Current Medications Naloxone HCl (Narcan) 0.4 mg Q3M PRN IV DECREASED REPIRATORY RATE; Start at 10:30 Ondansetron HCl (Zofran Inj) 4 mg Q6H PRN IV NAUSEA AND/OR VOMITING; Start 01/12 at 10:30 Nitroglycerin (Nitroglycerin (Sl Tab) 0.4 Mg) 1 tab Q5M PRN SL CHEST PAIN; Start 06/06/16 at 10:30 Acetaminophen (Tylenol Liquid) 650 mg Q6H PRN PO PAIN LEVEL 1-3 OR FEVER; Start 06/06/16 at 10:30 Morphine Sulfate (morphine) 2 mg Q4H PRN IV PAIN LEVEL 7-10 Last administered on 06/15/16t 00:22; Admin Dose 2 MG; Start 06/06/16 at 10:30 Docusate Sodium (Colace) 100 mg Q12H PRN PO CONSTIPATION; Start 06/06/16 at 10: 30 Magnesium Hydroxide (Milk Of Mag) 30 ml DAILY PRN PO CONSTIPATION; Start at 10:30 Bisacodyl (Dulcolax) 5 mg DAILY PRN PO CONSTIPATION; Start 06/06/16 at 10:30 Pantoprazole (Protonix Iv) 40 mg DAILY@06 IV Last administered on 06/18/16 06: 09; Admin Dose 40 MG; Start 06/07/16 at 06:00 Enoxaparin Sodium (Lovenox) 40 mg DAILY SC Last administered on 06/18/16 10:10 ; Admin Dose 40 MG; Start 06/07/16 at 09:00 Collagenase (Santyl) 1 applic DAILY TOP Last administered on 06/18/16 09:00; Admin Dose 1 APPLIC; Start 06/07/16 at 09:00 Collagenase (Santyl) 1 applic PRN PRN TOP WOUND CARE; Start 06/06/16 at 16:00 IV Flush (NS 10 ml) 10 ml PRN PRN IV IV PROTOCOL; Start 06/06/16 at 18:30 Ascorbic Acid (Vitamin C) 500 mg DAILY GTB Last administered on 06/18/16 10:02 ; Admin Dose 500 MG; Start 06/07/16 at 09:00 Aspirin (Aspirin) 325 mg DAILY GTB Last administered on 06/18/16 10:02; Admin Dose 325 MG; Start 06/07/16 at 09:00 Multivitamins (Thera-Plus) 5 ml DAILY GTB Last administered on 06/18/16 10:02 ; Admin Dose 5 ML; Start 06/07/16 at 09:00 Tamsulosin HCl (Flomax) 0.4 mg HS PO Last administered on 06/17/16 21:07; Admin Dose 0.4 MG; Start 06/07/16 at 21:00 Zinc Sulfate (Zinc Sulfate) 220 mg DAILY GTB Last administered on 06/18/16 10: 02; Admin Dose 220 MG; Start 06/07/16 at 09:00 Mupirocin (Bactroban) 1 applic BID TOP Last administered on 06/18/16 10:03; Admin Dose 1 APPLIC; Start 06/07/16 at 21:00 Metoclopramide HCl (Reglan) 10 mg Q6H PRN IV NAUSEA AND/OR VOMITING Last administered on 06/08/16 18:00; Admin Dose 10 MG; Start 06/08/16 at 09:30 Atenolol (Tenormin) 25 mg DAILY PO Last administered on 06/18/16 10:03; Admin Dose 25 MG; Start 06/08/16 at 11:30 Lorazepam 1 mg 1 mg Q6H PRN IV AGITATION/ANXIETY Last administered on 12:34; Admin Dose 1 MG; Start 06/09/16 at 13:30 Fluconazole 100 ml @ 100 mls/hr Q24H IVPB Last administered on 06/18/16 10:02 ; Admin Dose 100 MLS/HR; Start 06/10/16 at 09:00 Total Parenteral Nutrition 1,000 ml @ 40 mls/hr Q24H IV Last administered on 16:58; Admin Dose 40 MLS/HR; Start 06/12/16 at 18:00 Fat Emulsion Intravenous (Liposyn Ii 20%) 500 ml @ 21 mls/hr [id number] IV Last administered on 06/16/16 17:28; Admin Dose 21 MLS/HR; Start 06/12/16 at 18:00 Diagnostic Test (Pha) 1 ea 1 ea Q4 XX Last administered on 06/18/16 12:39; Admin Dose 1 EA; Start 06/12/16 at 17:00 Linezolid 300 ml @ 300 mls/hr Q12 IVPB Last administered on 06/18/16 10:02; Admin Dose 300 MLS/HR; Start 06/14/16 at 21:00 Colistimethate Sodium 75 mg/ Sodium Chloride 100 ml @ 200 mls/hr Q12 IVPB Last administered on 06/18/16 10:11; Admin Dose 200 MLS/HR; Start 06/14/16 at 21:00 Metronidazole (Flagyl 500 Mg (Pmx)) 100 ml @ 100 mls/hr Q6 IVPB Last administered on 06/18/16 12:39; Admin Dose 100 MLS/HR; Start 06/14/16 at 18:00 ZEUS CHAPPELL MD Jun 18, 2016 15:10
[2016-06-18] MEDS: FAT EMULSION 20% 500 ML IV SCH (16:20)
--- NOTE | 2016-06-18 16:50 | CONS ---
Date/Time of Note Date/Time of Note DATE: 06/18/16 TIME: 16:47 Consult Date/Type/Reason Admit Date/Time Jun 06, 2016 at 08:08 Initial Consult Date 06/07/16 Type of Consultation: Pulm Ordering Provider: HOLLI LINDER MD Subjective No events. Objective Vital Signs Date Time Temp Pulse Resp B/P Pulse Ox O2 Delivery O2 Flow Rate FiO2 06/18/16 16:30 72 06/18/16 16:00 30 06/18/16 15:55 98.2 22 105/59 98 06/17/16 06:00 Mechanical Ventilator Trach Collar Intake and Output 06/17/16 06/17/16 06/18/16 15:00 23:00 07:00 Intake Total 400 ml 400 ml 0 ml Output Total 10 ml 1075 ml 1900 ml Balance 390 ml -675 ml -1900 ml Exam HEENT: Pupils equal, round, and reactive to light. Tracheostomy site clean and intact. CARDIAC: S1, S2, tachycardia. CHEST: Diminished air entry bilaterally. Rales bilaterally ABDOMEN: Mildly distended. Decreased bowel sounds no guarding or rebound EXTREMITIES: No cyanosis, clubbing edema +1 Results/Medications Result Diagram: 06/18/16 0635 06/18/16 0700 Results 24 hrs Laboratory Tests Test 06/17/16 18:14 06/17/16 21:15 06/18/16 01:28 06/18/16 06:06 Bedside Glucose 111 93 120 98 Test 06/18/16 06:35 06/18/16 07:00 06/18/16 10:05 06/18/16 14:08 White Blood Count 13.7 #H Red Blood Count 4.14 #L Hemoglobin 11.9 #L Hematocrit 38.3 #L Mean Corpuscular Volume 92.5 Mean Corpuscular Hemoglobin 28.7 L Mean Corpuscular Hemoglobin Concent 31.1 L Red Cell Distribution Width 16.3 H Platelet Count 121 #L Mean Platelet Volume 11.7 H Neutrophils % 82.0 H Lymphocytes % 7.2 L Monocytes % 4.6 Eosinophils % 1.0 Basophils % 0.1 Nucleated Red Blood Cells % 0.0 Neutrophils # 11.2 H Lymphocytes # 1.0 Monocytes # 0.6 Eosinophils # 0.1 Basophils # 0.0 Nucleated Red Blood Cells # 0.0 Sodium Level 130 L Potassium Level 4.4 Chloride Level 103 Carbon Dioxide Level 24 Anion Gap 7 L Blood Urea Nitrogen 18 Creatinine 0.71 Glucose Level 89 Calcium Level 7.6 L Bedside Glucose 92 110 Test 06/18/16 16:28 Bedside Glucose 96 Medications Current Medications Naloxone HCl (Narcan) 0.4 mg Q3M PRN IV DECREASED REPIRATORY RATE; Start at 10:30 Ondansetron HCl (Zofran Inj) 4 mg Q6H PRN IV NAUSEA AND/OR VOMITING; Start 01/12 at 10:30 Nitroglycerin (Nitroglycerin (Sl Tab) 0.4 Mg) 1 tab Q5M PRN SL CHEST PAIN; Start 06/06/16 at 10:30 Acetaminophen (Tylenol Liquid) 650 mg Q6H PRN PO PAIN LEVEL 1-3 OR FEVER; Start 06/06/16 at 10:30 Morphine Sulfate (morphine) 2 mg Q4H PRN IV PAIN LEVEL 7-10 Last administered on 06/15/16 00:22; Admin Dose 2 MG; Start 06/06/16 at 10:30 Docusate Sodium (Colace) 100 mg Q12H PRN PO CONSTIPATION; Start 06/06/16 at 10: 30 Magnesium Hydroxide (Milk Of Mag) 30 ml DAILY PRN PO CONSTIPATION; Start at 10:30 Bisacodyl (Dulcolax) 5 mg DAILY PRN PO CONSTIPATION; Start 06/06/16 at 10:30 Pantoprazole (Protonix Iv) 40 mg DAILY@06 IV Last administered on 06/18/16 06: 09; Admin Dose 40 MG; Start 06/07/16 at 06:00 Enoxaparin Sodium (Lovenox) 40 mg DAILY SC Last administered on 06/18/16 10:10 ; Admin Dose 40 MG; Start 06/07/16 at 09:00 Collagenase (Santyl) 1 applic DAILY TOP Last administered on 06/18/16 09:00; Admin Dose 1 APPLIC; Start 06/07/16 at 09:00 Collagenase (Santyl) 1 applic PRN PRN TOP WOUND CARE; Start 06/06/16 at 16:00 IV Flush (NS 10 ml) 10 ml PRN PRN IV IV PROTOCOL; Start 06/06/16 at 18:30 Ascorbic Acid (Vitamin C) 500 mg DAILY GTB Last administered on 06/18/16 10:02 ; Admin Dose 500 MG; Start 06/07/16 at 09:00 Aspirin (Aspirin) 325 mg DAILY GTB Last administered on 06/18/16 10:02; Admin Dose 325 MG; Start 06/07/16 at 09:00 Multivitamins (Thera-Plus) 5 ml DAILY GTB Last administered on 06/18/16 10:02 ; Admin Dose 5 ML; Start 06/07/16 at 09:00 Tamsulosin HCl (Flomax) 0.4 mg HS PO Last administered on 06/17/16 21:07; Admin Dose 0.4 MG; Start 06/07/16 at 21:00 Zinc Sulfate (Zinc Sulfate) 220 mg DAILY GTB Last administered on 06/18/16 10: 02; Admin Dose 220 MG; Start 06/07/16 at 09:00 Mupirocin (Bactroban) 1 applic BID TOP Last administered on 06/18/16 10:03; Admin Dose 1 APPLIC; Start 06/07/16 at 21:00 Metoclopramide HCl (Reglan) 10 mg Q6H PRN IV NAUSEA AND/OR VOMITING Last administered on 06/08/16 18:00; Admin Dose 10 MG; Start 06/08/16 at 09:30 Atenolol (Tenormin) 25 mg DAILY PO Last administered on 06/18/16 10:03; Admin Dose 25 MG; Start 06/08/16 at 11:30 Lorazepam 1 mg 1 mg Q6H PRN IV AGITATION/ANXIETY Last administered on 12:34; Admin Dose 1 MG; Start 06/09/16 at 13:30 Fluconazole 100 ml @ 100 mls/hr Q24H IVPB Last administered on 06/18/16 10:02 ; Admin Dose 100 MLS/HR; Start 06/10/16 at 09:00 Total Parenteral Nutrition 1,000 ml @ 40 mls/hr Q24H IV Last administered on 16:58; Admin Dose 40 MLS/HR; Start 06/12/16 at 18:00 Fat Emulsion Intravenous (Liposyn Ii 20%) 500 ml @ 21 mls/hr [id number] IV Last administered on 06/18/16 16:20; Admin Dose 21 MLS/HR; Start 06/12/16 at 18:00 Diagnostic Test (Pha) 1 ea 1 ea Q4 XX Last administered on 06/18/16 16:29; Admin Dose 1 EA; Start 06/12/16 at 17:00 Linezolid 300 ml @ 300 mls/hr Q12 IVPB Last administered on 06/18/16 10:02; Admin Dose 300 MLS/HR; Start 06/14/16 at 21:00 Colistimethate Sodium 75 mg/ Sodium Chloride 100 ml @ 200 mls/hr Q12 IVPB Last administered on 06/18/16 10:11; Admin Dose 200 MLS/HR; Start 06/14/16 at 21:00 Metronidazole (Flagyl 500 Mg (Pmx)) 100 ml @ 100 mls/hr Q6 IVPB Last administered on 06/18/16 12:39; Admin Dose 100 MLS/HR; Start 06/14/16 at 18:00 Assessment/Plan Additional Assessment/Plan IMP: 1. Vent dependent respiratory failure with evidence of healthcare associated pneumonia 2. Status post bowel perforation with drainage, persistent leukocytosis 3. Persistent leukocytosis sepsis likely secondary to bowel abscesses VIET drains in place decreased output 4. Chronic atrial fibrillation 5. Decubitus ulcers 6. Dysphagia with G-tube 7. Anemia likely of chronic disease RECS: 1. Vent support/BD's 2. Continue broad-spectrum antibiotics per infectious diseases 3. Follow Na+ 4. Wound care ARTHUR BANKS MD Jun 18, 2016 16:49
[2016-06-18] MEDS: TPN 1,000 ML IV SCH (17:17)
--- NOTE | 2016-06-18 18:22 | PN ---
Date/Time of Note Date/Time of Note DATE: 06/18/16 TIME: 18:21 Assessment/Plan VTE Prophylaxis VTE Prophylaxis Intervention: other Lines/Catheters IV Catheter Type (from Nrs): PICC Line Central line still needed: Yes Urinary Cath still in place: Yes Reason Cath still needed: other (indicate) Assessment/Plan Chief Complaint/Hosp Course IMPRESSION: 1. Septic shock.better 2. Pneumonia. aspiration 3. Leukocytosis.better 4. Hematuria. better 5. Lactic acidosis. 6. Respiratory failure. 7. Gastrostomy tube placement. 8. Anemia. 9. Atrial fibrillation. 10. History of congestive heart failure with decreased ejection fraction. 11. vdrf 12. History of paroxysmal atrial fibrillation. 13. The patient now has decubitus. 14 uti 15 In the left anterior mid pelvis there is an approximate 6.3 x 3.2 x 4.7 cm air and fluid collection not definitely bowel suspicious for an abscess/ localized perforation. Diverticula in sigmoid and descending colon. Small amount of ascites. Gastrostomy tube in stomach. Small amount of air in gastric wall which could be secondary to the gastrostomy. No orally administered contrast is seen outside of the intestinal tract. No free pneumoperitoneum is seen. 1.6 cm rounded relatively low density structure in the upper left kidney which could represent a hyperattenuating cyst or solid mass. 15 polymirobial sepsis 16 pul edema plan antibiotic per id weaning per pulmonary and cardio surgery consult npo tpn per id lasix Problems: Subjective 24 Hr Interval Summary Subjective hx not possible: other (on vent) Exam/Review of Systems Vital Signs Vitals Vital Signs Date Time Temp Pulse Resp B/P Pulse Ox O2 Delivery O2 Flow Rate FiO2 06/18/16 16:30 72 06/18/16 16:00 30 06/18/16 15:55 98.2 22 105/59 98 06/17/16 06:00 Mechanical Ventilator Trach Collar Intake and Output 06/17/16 06/17/16 06/18/16 15:00 23:00 07:00 Intake Total 400 ml 400 ml 0 ml Output Total 10 ml 1075 ml 1900 ml Balance 390 ml -675 ml -1900 ml Exam Respiratory: diminished breath sounds Cardiovascular: regular rate and rhythm Gastrointestinal: bowel sounds (+), soft Extremities: edema (+) Results Result Diagram: 06/18/16 0635 06/18/16 0700 Results 24 hrs Laboratory Tests Test 06/17/16 21:15 06/18/16 01:28 06/18/16 06:06 06/18/16 06:35 Bedside Glucose 93 120 98 White Blood Count 13.7 #H Red Blood Count 4.14 #L Hemoglobin 11.9 #L Hematocrit 38.3 #L Mean Corpuscular Volume 92.5 Mean Corpuscular Hemoglobin 28.7 L Mean Corpuscular Hemoglobin Concent 31.1 L Red Cell Distribution Width 16.3 H Platelet Count 121 #L Mean Platelet Volume 11.7 H Neutrophils % 82.0 H Lymphocytes % 7.2 L Monocytes % 4.6 Eosinophils % 1.0 Basophils % 0.1 Nucleated Red Blood Cells % 0.0 Neutrophils # 11.2 H Lymphocytes # 1.0 Monocytes # 0.6 Eosinophils # 0.1 Basophils # 0.0 Nucleated Red Blood Cells # 0.0 Test 06/18/16 07:00 06/18/16 10:05 06/18/16 14:08 06/18/16 16:28 Sodium Level 130 L Potassium Level 4.4 Chloride Level 103 Carbon Dioxide Level 24 Anion Gap 7 L Blood Urea Nitrogen 18 Creatinine 0.71 Glucose Level 89 Calcium Level 7.6 L Bedside Glucose 92 110 96 Medications Medications Current Medications Naloxone HCl (Narcan) 0.4 mg Q3M PRN IV DECREASED REPIRATORY RATE; Start at 10:30 Ondansetron HCl (Zofran Inj) 4 mg Q6H PRN IV NAUSEA AND/OR VOMITING; Start 01/12 at 10:30 Nitroglycerin (Nitroglycerin (Sl Tab) 0.4 Mg) 1 tab Q5M PRN SL CHEST PAIN; Start 06/06/16 at 10:30 Acetaminophen (Tylenol Liquid) 650 mg Q6H PRN PO PAIN LEVEL 1-3 OR FEVER; Start 06/06/16 at 10:30 Morphine Sulfate (morphine) 2 mg Q4H PRN IV PAIN LEVEL 7-10 Last administered on 06/15/16t 00:22; Admin Dose 2 MG; Start 06/06/16 at 10:30 Docusate Sodium (Colace) 100 mg Q12H PRN PO CONSTIPATION; Start 06/06/16 at 10: 30 Magnesium Hydroxide (Milk Of Mag) 30 ml DAILY PRN PO CONSTIPATION; Start at 10:30 Bisacodyl (Dulcolax) 5 mg DAILY PRN PO CONSTIPATION; Start 06/06/16 at 10:30 Pantoprazole (Protonix Iv) 40 mg DAILY@06 IV Last administered on 06/18/16 06: 09; Admin Dose 40 MG; Start 06/07/16 at 06:00 Enoxaparin Sodium (Lovenox) 40 mg DAILY SC Last administered on 06/18/16 10:10 ; Admin Dose 40 MG; Start 06/07/16 at 09:00 Collagenase (Santyl) 1 applic DAILY TOP Last administered on 06/18/16 09:00; Admin Dose 1 APPLIC; Start 06/07/16 at 09:00 Collagenase (Santyl) 1 applic PRN PRN TOP WOUND CARE; Start 06/06/16 at 16:00 IV Flush (NS 10 ml) 10 ml PRN PRN IV IV PROTOCOL; Start 06/06/16 at 18:30 Ascorbic Acid (Vitamin C) 500 mg DAILY GTB Last administered on 06/18/16 10:02 ; Admin Dose 500 MG; Start 06/07/16 at 09:00 Aspirin (Aspirin) 325 mg DAILY GTB Last administered on 06/18/16 10:02; Admin Dose 325 MG; Start 06/07/16 at 09:00 Multivitamins (Thera-Plus) 5 ml DAILY GTB Last administered on 06/18/16 10:02 ; Admin Dose 5 ML; Start 06/07/16 at 09:00 Tamsulosin HCl (Flomax) 0.4 mg HS PO Last administered on 06/17/16 21:07; Admin Dose 0.4 MG; Start 06/07/16 at 21:00 Zinc Sulfate (Zinc Sulfate) 220 mg DAILY GTB Last administered on 06/18/16 10: 02; Admin Dose 220 MG; Start 06/07/16 at 09:00 Mupirocin (Bactroban) 1 applic BID TOP Last administered on 06/18/16 10:03; Admin Dose 1 APPLIC; Start 06/07/16 at 21:00 Metoclopramide HCl (Reglan) 10 mg Q6H PRN IV NAUSEA AND/OR VOMITING Last administered on 06/08/16 18:00; Admin Dose 10 MG; Start 06/08/16 at 09:30 Atenolol (Tenormin) 25 mg DAILY PO Last administered on 06/18/16 10:03; Admin Dose 25 MG; Start 06/08/16 at 11:30 Lorazepam 1 mg 1 mg Q6H PRN IV AGITATION/ANXIETY Last administered on 12:34; Admin Dose 1 MG; Start 06/09/16 at 13:30 Fluconazole 100 ml @ 100 mls/hr Q24H IVPB Last administered on 06/18/16 10:02 ; Admin Dose 100 MLS/HR; Start 06/10/16 at 09:00 Total Parenteral Nutrition 1,000 ml @ 40 mls/hr Q24H IV Last administered on 17:17; Admin Dose 40 MLS/HR; Start 06/12/16 at 18:00 Fat Emulsion Intravenous (Liposyn Ii 20%) 500 ml @ 21 mls/hr [id number] IV Last administered on 06/18/16 16:20; Admin Dose 21 MLS/HR; Start 06/12/16 at 18:00 Diagnostic Test (Pha) 1 ea 1 ea Q4 XX Last administered on 06/18/16 16:29; Admin Dose 1 EA; Start 06/12/16 at 17:00 Linezolid 300 ml @ 300 mls/hr Q12 IVPB Last administered on 06/18/16 10:02; Admin Dose 300 MLS/HR; Start 06/14/16 at 21:00 Colistimethate Sodium 75 mg/ Sodium Chloride 100 ml @ 200 mls/hr Q12 IVPB Last administered on 06/18/16 10:11; Admin Dose 200 MLS/HR; Start 06/14/16 at 21:00 Metronidazole (Flagyl 500 Mg (Pmx)) 100 ml @ 100 mls/hr Q6 IVPB Last administered on 06/18/16 17:17; Admin Dose 100 MLS/HR; Start 06/14/16 at 18:00 HOLLI LINDER MD Jun 18, 2016 18:22
--- NOTE | 2016-06-18 20:21 | CONS ---
Date/Time of Note Date/Time of Note DATE: 06/18/16 TIME: 20:19 Assessment/Plan Assessment/Plan Chief Complaint/Hosp Course ID PROGRESS NOTE TOTAL ABX DAY # => 1. Colistin. 2. Zyvox. 3. Flagyl.4. Fluconazole. 24H INTERVAL SUMMARY * Clinically status quo -- Frail 85 yo elder male with chronic co-morbidities, Trach-Vent, lethargic, noncommunicative * VSS, no fevers, WBC down today, renal fx stable PHYSICAL EXAMINATION: GENERAL: VSS, NADm, no fevers HEENT: Unremarkable, missing teeth NECK: Supple, trach-> Vent CHEST: Equal chest rise bilaterally, without dyspnea on observation HEART: Pulse RRR ABDOMEN: Soft, peg EXTREMITIES: Warm, PICC LUEXT w/TPN SKIN: Warm, dry ID ASSESSMENT: 85 yo M admitted with: 1. Sepsis with persistent leukocytosis = RESOLVING 2. Perforated viscus, status post CT-guided drainage catheter placement with drainage of abscess. * Abdominal fluid culture growing gram-negative rods, Klebsiella, enterococcus species Leuconostoc. 3. Methicillin-resistant Staphylococcus aureus bacteremia on admission with repeat blood cultures negative. 4. Enterococcal urinary tract infection. 5. Dysphagia. 6. Respiratory failure. 7. Pneumonia. * Chest x-ray revealed stable small bilateral pleural effusions with increased CHF. INVASIVES: * Trach, PEG, FC, Intra-ABD drain, PICC LUEXT ABX ALLERGIES: KNDA CURRENT ABX: DAY # => 1. Colistin. 2. Zyvox. 3. Flagyl.4. Fluconazole. s/p ID RECOMMENDATIONS: 1. Continue current ABX over the weekend and monitor clinical status . Problems: Consultation Date/Type/Reason Admit Date/Time Jun 06, 2016 at 08:08 Initial Consult Date 06/07/16 Type of Consultation: ID Referring Provider: HOLLI LINDER MD Exam/Review of Systems Vital Signs Vitals Vital Signs Date Time Temp Pulse Resp B/P Pulse Ox O2 Delivery O2 Flow Rate FiO2 06/18/16 17:20 74 23 95 30 06/18/16 15:55 98.2 105/59 06/17/16 06:00 Mechanical Ventilator Trach Collar Intake and Output 06/17/16 06/17/16 06/18/16 15:00 23:00 07:00 Intake Total 400 ml 400 ml 0 ml Output Total 10 ml 1075 ml 1900 ml Balance 390 ml -675 ml -1900 ml Results Result Diagram: 06/18/16 0635 06/18/16 0700 Results 24 hrs Laboratory Tests Test 06/17/16 21:15 06/18/16 01:28 06/18/16 06:06 06/18/16 06:35 Bedside Glucose 93 120 98 White Blood Count 13.7 #H Red Blood Count 4.14 #L Hemoglobin 11.9 #L Hematocrit 38.3 #L Mean Corpuscular Volume 92.5 Mean Corpuscular Hemoglobin 28.7 L Mean Corpuscular Hemoglobin Concent 31.1 L Red Cell Distribution Width 16.3 H Platelet Count 121 #L Mean Platelet Volume 11.7 H Neutrophils % 82.0 H Lymphocytes % 7.2 L Monocytes % 4.6 Eosinophils % 1.0 Basophils % 0.1 Nucleated Red Blood Cells % 0.0 Neutrophils # 11.2 H Lymphocytes # 1.0 Monocytes # 0.6 Eosinophils # 0.1 Basophils # 0.0 Nucleated Red Blood Cells # 0.0 Test 06/18/16 07:00 06/18/16 10:05 06/18/16 14:08 06/18/16 16:28 Sodium Level 130 L Potassium Level 4.4 Chloride Level 103 Carbon Dioxide Level 24 Anion Gap 7 L Blood Urea Nitrogen 18 Creatinine 0.71 Glucose Level 89 Calcium Level 7.6 L Bedside Glucose 92 110 96 Medications Medications Current Medications Naloxone HCl (Narcan) 0.4 mg Q3M PRN IV DECREASED REPIRATORY RATE; Start at 10:30 Ondansetron HCl (Zofran Inj) 4 mg Q6H PRN IV NAUSEA AND/OR VOMITING; Start 01/12 at 10:30 Nitroglycerin (Nitroglycerin (Sl Tab) 0.4 Mg) 1 tab Q5M PRN SL CHEST PAIN; Start 06/06/16 at 10:30 Acetaminophen (Tylenol Liquid) 650 mg Q6H PRN PO PAIN LEVEL 1-3 OR FEVER; Start 06/06/16 at 10:30 Morphine Sulfate (morphine) 2 mg Q4H PRN IV PAIN LEVEL 7-10 Last administered on 06/15/16t 00:22; Admin Dose 2 MG; Start 06/06/16 at 10:30 Docusate Sodium (Colace) 100 mg Q12H PRN PO CONSTIPATION; Start 06/06/16 at 10: 30 Magnesium Hydroxide (Milk Of Mag) 30 ml DAILY PRN PO CONSTIPATION; Start at 10:30 Bisacodyl (Dulcolax) 5 mg DAILY PRN PO CONSTIPATION; Start 06/06/16 at 10:30 Pantoprazole (Protonix Iv) 40 mg DAILY@06 IV Last administered on 06/18/16 06: 09; Admin Dose 40 MG; Start 06/07/16 at 06:00 Enoxaparin Sodium (Lovenox) 40 mg DAILY SC Last administered on 06/18/16 10:10 ; Admin Dose 40 MG; Start 06/07/16 at 09:00 Collagenase (Santyl) 1 applic DAILY TOP Last administered on 06/18/16 09:00; Admin Dose 1 APPLIC; Start 06/07/16 at 09:00 Collagenase (Santyl) 1 applic PRN PRN TOP WOUND CARE; Start 06/06/16 at 16:00 IV Flush (NS 10 ml) 10 ml PRN PRN IV IV PROTOCOL; Start 06/06/16 at 18:30 Ascorbic Acid (Vitamin C) 500 mg DAILY GTB Last administered on 06/18/16 10:02 ; Admin Dose 500 MG; Start 06/07/16 at 09:00 Aspirin (Aspirin) 325 mg DAILY GTB Last administered on 06/18/16 10:02; Admin Dose 325 MG; Start 06/07/16 at 09:00 Multivitamins (Thera-Plus) 5 ml DAILY GTB Last administered on 06/18/16 10:02 ; Admin Dose 5 ML; Start 06/07/16 at 09:00 Tamsulosin HCl (Flomax) 0.4 mg HS PO Last administered on 06/17/16 21:07; Admin Dose 0.4 MG; Start 06/07/16 at 21:00 Zinc Sulfate (Zinc Sulfate) 220 mg DAILY GTB Last administered on 06/18/16 10: 02; Admin Dose 220 MG; Start 06/07/16 at 09:00 Mupirocin (Bactroban) 1 applic BID TOP Last administered on 06/18/16 10:03; Admin Dose 1 APPLIC; Start 06/07/16 at 21:00 Metoclopramide HCl (Reglan) 10 mg Q6H PRN IV NAUSEA AND/OR VOMITING Last administered on 06/08/16 18:00; Admin Dose 10 MG; Start 06/08/16 at 09:30 Atenolol (Tenormin) 25 mg DAILY PO Last administered on 06/18/16 10:03; Admin Dose 25 MG; Start 06/08/16 at 11:30 Lorazepam 1 mg 1 mg Q6H PRN IV AGITATION/ANXIETY Last administered on 12:34; Admin Dose 1 MG; Start 06/09/16 at 13:30 Fluconazole 100 ml @ 100 mls/hr Q24H IVPB Last administered on 06/18/16 10:02 ; Admin Dose 100 MLS/HR; Start 06/10/16 at 09:00 Total Parenteral Nutrition 1,000 ml @ 40 mls/hr Q24H IV Last administered on 17:17; Admin Dose 40 MLS/HR; Start 06/12/16 at 18:00 Fat Emulsion Intravenous (Liposyn Ii 20%) 500 ml @ 21 mls/hr [id number] IV Last administered on 06/18/16 16:20; Admin Dose 21 MLS/HR; Start 06/12/16 at 18:00 Diagnostic Test (Pha) 1 ea 1 ea Q4 XX Last administered on 06/18/16 16:29; Admin Dose 1 EA; Start 06/12/16 at 17:00 Linezolid 300 ml @ 300 mls/hr Q12 IVPB Last administered on 06/18/16 10:02; Admin Dose 300 MLS/HR; Start 06/14/16 at 21:00 Colistimethate Sodium 75 mg/ Sodium Chloride 100 ml @ 200 mls/hr Q12 IVPB Last administered on 06/18/16 10:11; Admin Dose 200 MLS/HR; Start 06/14/16 at 21:00 Metronidazole (Flagyl 500 Mg (Pmx)) 100 ml @ 100 mls/hr Q6 IVPB Last administered on 06/18/16 17:17; Admin Dose 100 MLS/HR; Start 06/14/16 at 18:00 Furosemide (Lasix) 20 mg DAILY@06 IV ; Start 06/19/16 at 06:00 LINDSAY LAGUNAS NP Jun 18, 2016 20:21
[2016-06-18] MEDS: TAMSULOSIN (SR) 0.4 MG CAP PO SCH (21:51)
[2016-06-19] VITALS (29 sets, daily range): BP systolic 90–125; BP diastolic 53–66; PULSE 60–133; RESP 15–33
[2016-06-19] MEDS: metroNIDAZOLE 500 MG/NS (PMX) 100 ML IVPB SCH ×4 (00:15→18:00)
[2016-06-19] MEDS: ACCU-CHEK XX SCH ×6 (00:18→21:00)
[2016-06-19] MEDS: IPRATROPIUM (HFA) 12.9 GM INHALER INH SCH ×6 (01:36→20:58)
[2016-06-19] MEDS: ALBUTEROL 18 GM INHALER INH SCH ×6 (01:37→20:58)
[2016-06-19] MEDS: FUROSEMIDE 20 MG INJ IV SCH (05:41)
[2016-06-19] MEDS: PANTOPRAZOLE 40 MG INJ IV SCH (05:41)
[2016-06-19 06:53] LABS: ADD SCAN DIFF NO
[2016-06-19 07:07] LABS: BASOPHILS % 0.1 % (0.0-2.0); EOSINOPHILS # 0.3 10^3/ul (0.0-0.5); EOSINOPHILS % 1.8 % (0.0-7.0); HEMATOCRIT 26.7 % (42.0-52.0); HEMOGLOBIN 8.4 g/dl (14.0-18.0); LYMPHOCYTES # 1.6 10^3/ul (0.8-2.9); LYMPHOCYTES % 9.4 % (15.0-51.0); MEAN CORPUSCULAR HEMOGLOBIN 29.2 pg (29.0-33.0); MEAN CORPUSCULAR HGB CONC 31.5 g/dl (32.0-37.0); MEAN CORPUSCULAR VOLUME 92.7 fl (82.0-101.0); MEAN PLATELET VOLUME 11.6 fl (7.4-10.4); MONOCYTE # 0.8 10^3/ul (0.3-0.9); MONOCYTES % 4.8 % (0.0-11.0); NEUTROPHIL # 13.7 10^3/ul (1.6-7.5); NEUTROPHILS % 79.7 % (39.0-77.0); PLATELET COUNT 144 10^3/UL (140-415); RED BLOOD COUNT 2.88 10^6/ul (4.70-6.10); RED CELL DISTRIBUTION WIDTH 16.2 % (11.5-14.5); WHITE BLOOD COUNT 17.1 10^3/ul (4.8-10.8)
[2016-06-19 07:20] LABS: ALBUMIN 2.2 g/dl (3.3-4.9)
[2016-06-19 07:21] LABS: POTASSIUM 3.8 mmol/L (3.5-5.1)
[2016-06-19 07:23] LABS: ALBUMIN/GLOBULIN RATIO 0.68; BILIRUBIN,INDIRECT 0.1 mg/dl (0-1.1); BILIRUBIN,TOTAL 0.1 mg/dl (0.2-1.3); CREATININE 0.85 mg/dl (0.61-1.24); TOTAL PROTEIN 5.4 g/dl (6.1-8.1)
[2016-06-19 07:24] LABS: CALCIUM 7.9 mg/dl (8.4-10.2)
[2016-06-19] MEDS: COLLAGENASE 30 GM TUBE TOP SCH ×2 (09:00→15:02)
[2016-06-19] MEDS: MULTIVITAMINS 5 ML CUP GTB SCH (09:28)
[2016-06-19] MEDS: ASPIRIN 325 MG TAB GTB SCH (09:28)
[2016-06-19] MEDS: ASCORBIC ACID 500 MG TAB GTB SCH (09:29)
[2016-06-19] MEDS: ATENOLOL 25 MG TAB PO SCH (09:29)
[2016-06-19] MEDS: COLISTIMETHATE 75 MG in SOD CHLORIDE 0.9% 100 ML IVPB SCH ×2 (09:30→21:41)
[2016-06-19] MEDS: MUPIROCIN 2% 22 GM OINT TOP SCH ×2 (09:31→21:45)
[2016-06-19] MEDS: FLUCONAZOLE 200 MG/NS (PMX) 100 ML IVPB SCH (09:57)
[2016-06-19] MEDS: LINEZOLID 600 MG/D5W (PMX) 300 ML IVPB SCH ×2 (09:57→22:00)
[2016-06-19] MEDS: ZINC SULFATE 220 MG CAP GTB SCH (09:57)
[2016-06-19] MEDS: ENOXAPARIN 40 MG/0.4 ML SYG SC SCH (09:59)
--- NOTE | 2016-06-19 11:16 | PN ---
Date/Time of Note Date/Time of Note DATE: 06/19/16 TIME: 11:15 Assessment/Plan Lines/Catheters IV Catheter Type (from Rust): PICC Line Alfonso in Place (from Rust): Yes Assessment/Plan Chief Complaint/Hosp Course 1. Contained perforated viscous s/p IR drain 06/11. Cx noted. Leukocytosis improving/ -continue drain -abx per ID -supportive 2. Pneumonia -pulmonary toilette -abx 3. Sepsis, significant leukocytosis. Improving -abx -as above 4. Sacral decubitus ulcer -off load -nutrition optimization -vit c -local care 5. Chronic AFib -rate control -optimize electrolytes -tx infections 6. Anemia -monitor 7. Hypoalbuminemia -eventual nutritional optimization 8. CHF -judicious fluid management -cardiac optimization Thank you, Problems: Subjective 24 Hr Interval Summary No f/c. No cough. No sz. No rashes. No bloating. No vomiting. No bleeding. Leukocytosis. Exam/Review of Systems Vital Signs Vitals Vital Signs Date Time Temp Pulse Resp B/P Pulse Ox O2 Delivery O2 Flow Rate FiO2 06/19/16 09:00 75 32 97 30 06/19/16 07:48 98.9 122/63 06/17/16 06:00 Mechanical Ventilator Trach Collar Intake and Output 06/18/16 06/18/16 06/19/16 15:00 23:00 07:00 Intake Total 100 ml 1822 ml 100 ml Output Total 25 ml 1910 ml 2300 ml Balance 75 ml -88 ml -2200 ml Exam Free Text/Dictation Constitutional: No alert, No distress, No oriented Psych: confusion, No anxiety Head: atraumatic, normocephalic Eyes: PERRL, nl conjunctiva, No icteric ENMT: mucosa pink and moist, nl external ears & nose, nl lips & teeth Neck: jvd (min), non-tender Respiratory: No congested cough, No labored breathing Cardiovascular: No edema, No regular rate and rhythm Gastrointestinal: soft, drain Left side, PEG No distended, No firm, No rebound or guarding Musculoskeletal: No joint tenderness, No nl gait and stance Extremities: No calf tenderness, No cyanosis Neurological: No nl mental status, No nl speech, No nl strength Skin: nl turgor, rash or lesions (Sacral and LE decubitus ulcerations), No diaphoresis Lymph: nl lymph nodes Results Result Diagram: 06/19/16 0545 06/19/16 0545 DAREK AHMADI MD Jun 19, 2016 11:15
--- NOTE | 2016-06-19 11:29 | CONS ---
Date/Time of Note Date/Time of Note DATE: 06/19/16 TIME: 11:28 Consult Date/Type/Reason Admit Date/Time Jun 06, 2016 at 08:08 Initial Consult Date 06/07/16 Type of Consultation: pulmonary Ordering Provider: HOLLI LINDER MD Subjective Patient stable this morning no new events Objective Vital Signs Date Time Temp Pulse Resp B/P Pulse Ox O2 Delivery O2 Flow Rate FiO2 06/19/16 09:00 75 32 97 30 06/19/16 07:48 98.9 122/63 06/17/16 06:00 Mechanical Ventilator Trach Collar Intake and Output 06/18/16 06/18/16 06/19/16 15:00 23:00 07:00 Intake Total 100 ml 1822 ml 100 ml Output Total 25 ml 1910 ml 2300 ml Balance 75 ml -88 ml -2200 ml Exam GENERAL: Elderly gentleman on mechanical ventilation via tracheostomy VITAL SIGNS: per chart NECK: Supple. No JVD or lymphadenopathy. CARDIAC EXAM: S1, S2. No added sounds or murmurs. CHEST: clear bilaterally, No added sounds, rales or wheezes ABDOMEN: Soft, nontender. No guarding or rebound. EXTREMITIES: No cyanosis, clubbing edema +1 NEUROLOGIC: Generalized weakness. Results/Medications Result Diagram: 06/19/16 0545 06/19/16 0545 Results 24 hrs Laboratory Tests Test 06/18/16 14:08 06/18/16 16:28 06/18/16 21:50 06/19/16 00:17 Bedside Glucose 110 96 93 144 Test 06/19/16 04:36 06/19/16 05:45 06/19/16 08:26 Bedside Glucose 103 113 White Blood Count 17.1 #H Red Blood Count 2.88 #L Hemoglobin 8.4 #L Hematocrit 26.7 #L Mean Corpuscular Volume 92.7 Mean Corpuscular Hemoglobin 29.2 Mean Corpuscular Hemoglobin Concent 31.5 L Red Cell Distribution Width 16.2 H Platelet Count 144 Mean Platelet Volume 11.6 H Neutrophils % 79.7 H Lymphocytes % 9.4 L Monocytes % 4.8 Eosinophils % 1.8 Basophils % 0.1 Nucleated Red Blood Cells % 0.0 Neutrophils # 13.7 H Lymphocytes # 1.6 Monocytes # 0.8 Eosinophils # 0.3 Basophils # 0.0 Nucleated Red Blood Cells # 0.0 Sodium Level 131 L Potassium Level 3.8 Chloride Level 99 Carbon Dioxide Level 23 Anion Gap 13 Blood Urea Nitrogen 18 Creatinine 0.85 Glucose Level 95 Calcium Level 7.9 L Total Bilirubin 0.1 L Direct Bilirubin 0.00 Indirect Bilirubin 0.1 Aspartate Amino Transf (AST/SGOT) 27 Alanine Aminotransferase (ALT/SGPT) 25 Alkaline Phosphatase 53 Total Protein 5.4 L Albumin 2.2 L Globulin 3.20 Albumin/Globulin Ratio 0.68 Medications Current Medications Naloxone HCl (Narcan) 0.4 mg Q3M PRN IV DECREASED REPIRATORY RATE; Start at 10:30 Ondansetron HCl (Zofran Inj) 4 mg Q6H PRN IV NAUSEA AND/OR VOMITING; Start 01/12 at 10:30 Nitroglycerin (Nitroglycerin (Sl Tab) 0.4 Mg) 1 tab Q5M PRN SL CHEST PAIN; Start 06/06/16 at 10:30 Acetaminophen (Tylenol Liquid) 650 mg Q6H PRN PO PAIN LEVEL 1-3 OR FEVER; Start 06/06/16 at 10:30 Morphine Sulfate (morphine) 2 mg Q4H PRN IV PAIN LEVEL 7-10 Last administered on 06/15/16 00:22; Admin Dose 2 MG; Start 06/06/16 at 10:30 Docusate Sodium (Colace) 100 mg Q12H PRN PO CONSTIPATION; Start 06/06/16 at 10: 30 Magnesium Hydroxide (Milk Of Mag) 30 ml DAILY PRN PO CONSTIPATION; Start at 10:30 Bisacodyl (Dulcolax) 5 mg DAILY PRN PO CONSTIPATION; Start 06/06/16 at 10:30 Pantoprazole (Protonix Iv) 40 mg DAILY@06 IV Last administered on 06/19/16 05: 41; Admin Dose 40 MG; Start 06/07/16 at 06:00 Enoxaparin Sodium (Lovenox) 40 mg DAILY SC Last administered on 06/19/16 09:59 ; Admin Dose 40 MG; Start 06/07/16 at 09:00 Collagenase (Santyl) 1 applic DAILY TOP Last administered on 06/18/16 09:00; Admin Dose 1 APPLIC; Start 06/07/16 at 09:00 Collagenase (Santyl) 1 applic PRN PRN TOP WOUND CARE; Start 06/06/16 at 16:00 IV Flush (NS 10 ml) 10 ml PRN PRN IV IV PROTOCOL; Start 06/06/16 at 18:30 Ascorbic Acid (Vitamin C) 500 mg DAILY GTB Last administered on 06/19/16 09:29 ; Admin Dose 500 MG; Start 06/07/16 at 09:00 Aspirin (Aspirin) 325 mg DAILY GTB Last administered on 06/19/16 09:28; Admin Dose 325 MG; Start 06/07/16 at 09:00 Multivitamins (Thera-Plus) 5 ml DAILY GTB Last administered on 06/19/16 09:28 ; Admin Dose 5 ML; Start 06/07/16 at 09:00 Tamsulosin HCl (Flomax) 0.4 mg HS PO Last administered on 06/18/16 21:51; Admin Dose 0.4 MG; Start 06/07/16 at 21:00 Zinc Sulfate (Zinc Sulfate) 220 mg DAILY GTB Last administered on 06/19/16 09: 57; Admin Dose 220 MG; Start 06/07/16 at 09:00 Mupirocin (Bactroban) 1 applic BID TOP Last administered on 06/19/16 09:31; Admin Dose 1 APPLIC; Start 06/07/16 at 21:00 Metoclopramide HCl (Reglan) 10 mg Q6H PRN IV NAUSEA AND/OR VOMITING Last administered on 06/08/16 18:00; Admin Dose 10 MG; Start 06/08/16 at 09:30 Atenolol (Tenormin) 25 mg DAILY PO Last administered on 06/19/16 09:29; Admin Dose 25 MG; Start 06/08/16 at 11:30 Lorazepam 1 mg 1 mg Q6H PRN IV AGITATION/ANXIETY Last administered on 12:34; Admin Dose 1 MG; Start 06/09/16 at 13:30 Fluconazole 100 ml @ 100 mls/hr Q24H IVPB Last administered on 06/19/16 09:57 ; Admin Dose 100 MLS/HR; Start 06/10/16 at 09:00 Total Parenteral Nutrition 1,000 ml @ 40 mls/hr Q24H IV Last administered on 17:17; Admin Dose 40 MLS/HR; Start 06/12/16 at 18:00 Fat Emulsion Intravenous (Liposyn Ii 20%) 500 ml @ 21 mls/hr [id number] IV Last administered on 06/18/16 16:20; Admin Dose 21 MLS/HR; Start 06/12/16 at 18:00 Diagnostic Test (Pha) 1 ea 1 ea Q4 XX Last administered on 06/19/16 05:20; Admin Dose 1 EA; Start 06/12/16 at 17:00 Linezolid 300 ml @ 300 mls/hr Q12 IVPB Last administered on 06/19/16 09:57; Admin Dose 300 MLS/HR; Start 06/14/16 at 21:00 Colistimethate Sodium 75 mg/ Sodium Chloride 100 ml @ 200 mls/hr Q12 IVPB Last administered on 06/19/16 09:30; Admin Dose 200 MLS/HR; Start 06/14/16 at 21:00 Metronidazole (Flagyl 500 Mg (Pmx)) 100 ml @ 100 mls/hr Q6 IVPB Last administered on 06/19/16 05:41; Admin Dose 100 MLS/HR; Start 06/14/16 at 18:00 Furosemide (Lasix) 20 mg DAILY@06 IV Last administered on 06/19/16 05:41; Admin Dose 20 MG; Start 06/19/16 at 06:00 Assessment/Plan Chief Complaint/Hosp Course Assessment 1. Vent dependent respiratory failure with evidence of healthcare associated pneumonia 2. Status post bowel perforation with drainage, persistent leukocytosis 3. Persistent leukocytosis sepsis likely secondary to bowel abscesses VIET drains in place decreased output 4. Chronic atrial fibrillation 5. Decubitus ulcers 6. Dysphagia with G-tube 7. Anemia likely of chronic disease Plan 1. Continue mechanical ventilation tracheostomy change 2. Continue broad-spectrum antibiotics per infectious diseases 3. Surgical recommendations regarding abdominal drains 4. Palliative care consult 5. DVT and GI prophylaxis Disposition Pending transfer to [place] Problems: KAVON TROY MD, [facility] Jun 19, 2016 11:29
--- NOTE | 2016-06-19 16:12 | PN ---
Date/Time of Note Date/Time of Note DATE: 06/19/16 TIME: 16:09 Assessment/Plan VTE Prophylaxis VTE Prophylaxis Intervention: other Lines/Catheters IV Catheter Type (from Nrs): PICC Line Central line still needed: Yes Urinary Cath still in place: Yes Reason Cath still needed: other (indicate) Assessment/Plan Chief Complaint/Hosp Course IMPRESSION: 1. Septic shock.better 2. Pneumonia. aspiration 3. Leukocytosis.better 4. Hematuria. better 5. Lactic acidosis. 6. Respiratory failure. 7. Gastrostomy tube placement. 8. Anemia. 9. Atrial fibrillation. 10. History of congestive heart failure with decreased ejection fraction. 11. vdrf 12. History of paroxysmal atrial fibrillation. 13. The patient now has decubitus. 14 uti 15 In the left anterior mid pelvis there is an approximate 6.3 x 3.2 x 4.7 cm air and fluid collection not definitely bowel suspicious for an abscess/ localized perforation. Diverticula in sigmoid and descending colon. Small amount of ascites. 15 polymirobial sepsis 16 pul edema plan antibiotic per id weaning per pulmonary and cardio surgery consult npo tpn per id lasix Problems: Subjective 24 Hr Interval Summary Subjective hx not possible: other (on vent) Exam/Review of Systems Vital Signs Vitals Vital Signs Date Time Temp Pulse Resp B/P Pulse Ox O2 Delivery O2 Flow Rate FiO2 06/19/16 15:44 98.1 69 20 90/58 94 06/19/16 13:01 30 06/17/16 06:00 Mechanical Ventilator Trach Collar Intake and Output 06/18/16 06/18/16 06/19/16 15:00 23:00 07:00 Intake Total 100 ml 1822 ml 100 ml Output Total 25 ml 1910 ml 2300 ml Balance 75 ml -88 ml -2200 ml Exam Neck: supple Respiratory: diminished breath sounds Cardiovascular: regular rate and rhythm Gastrointestinal: bowel sounds (+), soft Musculoskeletal: nl extremities to inspection Extremities: No edema Results Result Diagram: 06/19/16 0545 06/19/16 0545 Results 24 hrs Laboratory Tests Test 06/18/16 16:28 06/18/16 21:50 06/19/16 00:17 06/19/16 04:36 Bedside Glucose 96 93 144 103 Test 06/19/16 05:45 06/19/16 08:26 06/19/16 11:58 White Blood Count 17.1 #H Red Blood Count 2.88 #L Hemoglobin 8.4 #L Hematocrit 26.7 #L Mean Corpuscular Volume 92.7 Mean Corpuscular Hemoglobin 29.2 Mean Corpuscular Hemoglobin Concent 31.5 L Red Cell Distribution Width 16.2 H Platelet Count 144 Mean Platelet Volume 11.6 H Neutrophils % 79.7 H Lymphocytes % 9.4 L Monocytes % 4.8 Eosinophils % 1.8 Basophils % 0.1 Nucleated Red Blood Cells % 0.0 Neutrophils # 13.7 H Lymphocytes # 1.6 Monocytes # 0.8 Eosinophils # 0.3 Basophils # 0.0 Nucleated Red Blood Cells # 0.0 Sodium Level 131 L Potassium Level 3.8 Chloride Level 99 Carbon Dioxide Level 23 Anion Gap 13 Blood Urea Nitrogen 18 Creatinine 0.85 Glucose Level 95 Calcium Level 7.9 L Total Bilirubin 0.1 L Direct Bilirubin 0.00 Indirect Bilirubin 0.1 Aspartate Amino Transf (AST/SGOT) 27 Alanine Aminotransferase (ALT/SGPT) 25 Alkaline Phosphatase 53 Total Protein 5.4 L Albumin 2.2 L Globulin 3.20 Albumin/Globulin Ratio 0.68 Bedside Glucose 113 191 Medications Medications Current Medications Naloxone HCl (Narcan) 0.4 mg Q3M PRN IV DECREASED REPIRATORY RATE; Start at 10:30 Ondansetron HCl (Zofran Inj) 4 mg Q6H PRN IV NAUSEA AND/OR VOMITING; Start 01/12 at 10:30 Nitroglycerin (Nitroglycerin (Sl Tab) 0.4 Mg) 1 tab Q5M PRN SL CHEST PAIN; Start 06/06/16 at 10:30 Acetaminophen (Tylenol Liquid) 650 mg Q6H PRN PO PAIN LEVEL 1-3 OR FEVER; Start 06/06/16 at 10:30 Morphine Sulfate (morphine) 2 mg Q4H PRN IV PAIN LEVEL 7-10 Last administered on 06/15/16t 00:22; Admin Dose 2 MG; Start 06/06/16 at 10:30 Docusate Sodium (Colace) 100 mg Q12H PRN PO CONSTIPATION; Start 06/06/16 at 10: 30 Magnesium Hydroxide (Milk Of Mag) 30 ml DAILY PRN PO CONSTIPATION; Start at 10:30 Bisacodyl (Dulcolax) 5 mg DAILY PRN PO CONSTIPATION; Start 06/06/16 at 10:30 Pantoprazole (Protonix Iv) 40 mg DAILY@06 IV Last administered on 06/19/16 05: 41; Admin Dose 40 MG; Start 06/07/16 at 06:00 Enoxaparin Sodium (Lovenox) 40 mg DAILY SC Last administered on 06/19/16 09:59 ; Admin Dose 40 MG; Start 06/07/16 at 09:00 Collagenase (Santyl) 1 applic DAILY TOP Last administered on 06/19/16 15:02; Admin Dose 1 APPLIC; Start 06/07/16 at 09:00 Collagenase (Santyl) 1 applic PRN PRN TOP WOUND CARE; Start 06/06/16 at 16:00 IV Flush (NS 10 ml) 10 ml PRN PRN IV IV PROTOCOL; Start 06/06/16 at 18:30 Ascorbic Acid (Vitamin C) 500 mg DAILY GTB Last administered on 06/19/16 09:29 ; Admin Dose 500 MG; Start 06/07/16 at 09:00 Aspirin (Aspirin) 325 mg DAILY GTB Last administered on 06/19/16 09:28; Admin Dose 325 MG; Start 06/07/16 at 09:00 Multivitamins (Thera-Plus) 5 ml DAILY GTB Last administered on 06/19/16 09:28 ; Admin Dose 5 ML; Start 06/07/16 at 09:00 Tamsulosin HCl (Flomax) 0.4 mg HS PO Last administered on 06/18/16 21:51; Admin Dose 0.4 MG; Start 06/07/16 at 21:00 Zinc Sulfate (Zinc Sulfate) 220 mg DAILY GTB Last administered on 06/19/16 09: 57; Admin Dose 220 MG; Start 06/07/16 at 09:00 Mupirocin (Bactroban) 1 applic BID TOP Last administered on 06/19/16 09:31; Admin Dose 1 APPLIC; Start 06/07/16 at 21:00 Metoclopramide HCl (Reglan) 10 mg Q6H PRN IV NAUSEA AND/OR VOMITING Last administered on 06/08/16 18:00; Admin Dose 10 MG; Start 06/08/16 at 09:30 Atenolol (Tenormin) 25 mg DAILY PO Last administered on 06/19/16 09:29; Admin Dose 25 MG; Start 06/08/16 at 11:30 Lorazepam 1 mg 1 mg Q6H PRN IV AGITATION/ANXIETY Last administered on 12:34; Admin Dose 1 MG; Start 06/09/16 at 13:30 Fluconazole 100 ml @ 100 mls/hr Q24H IVPB Last administered on 06/19/16 09:57 ; Admin Dose 100 MLS/HR; Start 06/10/16 at 09:00 Total Parenteral Nutrition 1,000 ml @ 40 mls/hr Q24H IV Last administered on 17:17; Admin Dose 40 MLS/HR; Start 06/12/16 at 18:00 Fat Emulsion Intravenous (Liposyn Ii 20%) 500 ml @ 21 mls/hr [id number] IV Last administered on 06/18/16 16:20; Admin Dose 21 MLS/HR; Start 06/12/16 at 18:00 Diagnostic Test (Pha) 1 ea 1 ea Q4 XX Last administered on 06/19/16 05:20; Admin Dose 1 EA; Start 06/12/16 at 17:00 Linezolid 300 ml @ 300 mls/hr Q12 IVPB Last administered on 06/19/16 09:57; Admin Dose 300 MLS/HR; Start 06/14/16 at 21:00 Colistimethate Sodium 75 mg/ Sodium Chloride 100 ml @ 200 mls/hr Q12 IVPB Last administered on 06/19/16 09:30; Admin Dose 200 MLS/HR; Start 06/14/16 at 21:00 Metronidazole (Flagyl 500 Mg (Pmx)) 100 ml @ 100 mls/hr Q6 IVPB Last administered on 06/19/16 12:40; Admin Dose 100 MLS/HR; Start 06/14/16 at 18:00 Furosemide (Lasix) 20 mg DAILY@06 IV Last administered on 06/19/16 05:41; Admin Dose 20 MG; Start 06/19/16 at 06:00 HOLLI LINDER MD Jun 19, 2016 16:12
[2016-06-19] MEDS: FAT EMULSION 20% 500 ML IV SCH (17:04)
--- NOTE | 2016-06-19 17:33 | CONS ---
Date/Time of Note Date/Time of Note DATE: 06/19/16 TIME: 17:23 Assessment/Plan Assessment/Plan Chief Complaint/Hosp Course ID PROGRESS NOTE TOTAL ABX DAY # 9 => Colistin #6, Zyvox, Flagyl, Diflucan 24H INTERVAL SUMMARY * Clinically status quo -- Frail 85 yo elder male with chronic co-morbidities, Trach-Vent, lethargic, noncommunicative * VSS, no fevers, WBC down today, renal fx stable * POD #9 =>s/p 06/11/16 CT guided ABD Abscess drainage PHYSICAL EXAMINATION: GENERAL: VSS, NADm, no fevers HEENT: Unremarkable, missing teeth NECK: Supple, trach-> Vent CHEST: Equal chest rise bilaterally, without dyspnea on observation HEART: Pulse RRR ABDOMEN: Soft, peg EXTREMITIES: Warm, PICC LUEXT w/TPN SKIN: Warm, dry ID ASSESSMENT: 85 yo M admitted with: 1. Sepsis with persistent leukocytosis = RESOLVING * (+)MRSA septicemia w/BCx(+) MRSA on admission * Repeat BCx (-) 2. Perforated viscus, POD #9 =>s/p 06/11/16 CT guided ABD abscess drainage catheter placement * Abdominal fluid culture growing gram-negative rods, Klebsiella, enterococcus species Leuconostoc. * Late posted Cx result ANAEROBIC CULTURE Final Organism 1 BACTEROIDES FRAGILIS 3. Respiratory failure= chronic VDRF 4. HCAP - suspect aspiration Pneumonia. * Chest x-ray revealed stable small bilateral pleural effusions with increased CHF. 5. Dysphagia. 6. Enterococcal urinary tract infection. 7. Candidiasis oral, skin folds INVASIVES: * Trach, PEG, FC, Intra-ABD drain, PICC LUEXT ABX ALLERGIES: KNDA CURRENT ABX: DAY # 9 => Colistin #6, Zyvox, Flagyl, Diflucan ID RECOMMENDATIONS: 1. Continue current ABX -- await surgical recs on de-escalation of ABX * Colistin -> CRKP - MDRO * Zyvox ->Enterococcus * Flagyl -> Bacteroides * . . Problems: Consultation Date/Type/Reason Admit Date/Time Jun 06, 2016 at 08:08 Initial Consult Date 06/07/16 Type of Consultation: ID Referring Provider: HOLLI LINDER MD Exam/Review of Systems Vital Signs Vitals Vital Signs Date Time Temp Pulse Resp B/P Pulse Ox O2 Delivery O2 Flow Rate FiO2 06/19/16 17:00 60 23 98 30 06/19/16 15:44 98.1 90/58 06/17/16 06:00 Mechanical Ventilator Trach Collar Intake and Output 06/18/16 06/18/16 06/19/16 15:00 23:00 07:00 Intake Total 100 ml 1822 ml 100 ml Output Total 25 ml 1910 ml 2300 ml Balance 75 ml -88 ml -2200 ml Results Result Diagram: 06/19/16 0545 06/19/16 0545 Results 24 hrs Laboratory Tests Test 06/18/16 21:50 06/19/16 00:17 06/19/16 04:36 06/19/16 05:45 Bedside Glucose 93 144 103 White Blood Count 17.1 #H Red Blood Count 2.88 #L Hemoglobin 8.4 #L Hematocrit 26.7 #L Mean Corpuscular Volume 92.7 Mean Corpuscular Hemoglobin 29.2 Mean Corpuscular Hemoglobin Concent 31.5 L Red Cell Distribution Width 16.2 H Platelet Count 144 Mean Platelet Volume 11.6 H Neutrophils % 79.7 H Lymphocytes % 9.4 L Monocytes % 4.8 Eosinophils % 1.8 Basophils % 0.1 Nucleated Red Blood Cells % 0.0 Neutrophils # 13.7 H Lymphocytes # 1.6 Monocytes # 0.8 Eosinophils # 0.3 Basophils # 0.0 Nucleated Red Blood Cells # 0.0 Sodium Level 131 L Potassium Level 3.8 Chloride Level 99 Carbon Dioxide Level 23 Anion Gap 13 Blood Urea Nitrogen 18 Creatinine 0.85 Glucose Level 95 Calcium Level 7.9 L Total Bilirubin 0.1 L Direct Bilirubin 0.00 Indirect Bilirubin 0.1 Aspartate Amino Transf (AST/SGOT) 27 Alanine Aminotransferase (ALT/SGPT) 25 Alkaline Phosphatase 53 Total Protein 5.4 L Albumin 2.2 L Globulin 3.20 Albumin/Globulin Ratio 0.68 Test 06/19/16 08:26 06/19/16 11:58 06/19/16 16:48 Bedside Glucose 113 191 107 Medications Medications Current Medications Naloxone HCl (Narcan) 0.4 mg Q3M PRN IV DECREASED REPIRATORY RATE; Start at 10:30 Ondansetron HCl (Zofran Inj) 4 mg Q6H PRN IV NAUSEA AND/OR VOMITING; Start 01/12 at 10:30 Nitroglycerin (Nitroglycerin (Sl Tab) 0.4 Mg) 1 tab Q5M PRN SL CHEST PAIN; Start 06/06/16 at 10:30 Acetaminophen (Tylenol Liquid) 650 mg Q6H PRN PO PAIN LEVEL 1-3 OR FEVER; Start 06/06/16 at 10:30 Morphine Sulfate (morphine) 2 mg Q4H PRN IV PAIN LEVEL 7-10 Last administered on 06/15/16 00:22; Admin Dose 2 MG; Start 06/06/16 at 10:30 Docusate Sodium (Colace) 100 mg Q12H PRN PO CONSTIPATION; Start 06/06/16 at 10: 30 Magnesium Hydroxide (Milk Of Mag) 30 ml DAILY PRN PO CONSTIPATION; Start at 10:30 Bisacodyl (Dulcolax) 5 mg DAILY PRN PO CONSTIPATION; Start 06/06/16 at 10:30 Pantoprazole (Protonix Iv) 40 mg DAILY@06 IV Last administered on 06/19/16 05: 41; Admin Dose 40 MG; Start 06/07/16 at 06:00 Enoxaparin Sodium (Lovenox) 40 mg DAILY SC Last administered on 06/19/16 09:59 ; Admin Dose 40 MG; Start 06/07/16 at 09:00 Collagenase (Santyl) 1 applic DAILY TOP Last administered on 06/19/16 15:02; Admin Dose 1 APPLIC; Start 06/07/16 at 09:00 Collagenase (Santyl) 1 applic PRN PRN TOP WOUND CARE; Start 06/06/16 at 16:00 IV Flush (NS 10 ml) 10 ml PRN PRN IV IV PROTOCOL; Start 06/06/16 at 18:30 Ascorbic Acid (Vitamin C) 500 mg DAILY GTB Last administered on 06/19/16 09:29 ; Admin Dose 500 MG; Start 06/07/16 at 09:00 Aspirin (Aspirin) 325 mg DAILY GTB Last administered on 06/19/16 09:28; Admin Dose 325 MG; Start 06/07/16 at 09:00 Multivitamins (Thera-Plus) 5 ml DAILY GTB Last administered on 06/19/16 09:28 ; Admin Dose 5 ML; Start 06/07/16 at 09:00 Tamsulosin HCl (Flomax) 0.4 mg HS PO Last administered on 06/18/16 21:51; Admin Dose 0.4 MG; Start 06/07/16 at 21:00 Zinc Sulfate (Zinc Sulfate) 220 mg DAILY GTB Last administered on 06/19/16 09: 57; Admin Dose 220 MG; Start 06/07/16 at 09:00 Mupirocin (Bactroban) 1 applic BID TOP Last administered on 06/19/16 09:31; Admin Dose 1 APPLIC; Start 06/07/16 at 21:00 Metoclopramide HCl (Reglan) 10 mg Q6H PRN IV NAUSEA AND/OR VOMITING Last administered on 06/08/16 18:00; Admin Dose 10 MG; Start 06/08/16 at 09:30 Atenolol (Tenormin) 25 mg DAILY PO Last administered on 06/19/16 09:29; Admin Dose 25 MG; Start 06/08/16 at 11:30 Lorazepam 1 mg 1 mg Q6H PRN IV AGITATION/ANXIETY Last administered on 12:34; Admin Dose 1 MG; Start 06/09/16 at 13:30 Fluconazole 100 ml @ 100 mls/hr Q24H IVPB Last administered on 06/19/16 09:57 ; Admin Dose 100 MLS/HR; Start 06/10/16 at 09:00 Total Parenteral Nutrition 1,000 ml @ 40 mls/hr Q24H IV Last administered on 17:17; Admin Dose 40 MLS/HR; Start 06/12/16 at 18:00 Fat Emulsion Intravenous (Liposyn Ii 20%) 500 ml @ 21 mls/hr [id number] IV Last administered on 06/19/16 17:04; Admin Dose 21 MLS/HR; Start 06/12/16 at 18:00 Diagnostic Test (Pha) 1 ea 1 ea Q4 XX Last administered on 06/19/16 05:20; Admin Dose 1 EA; Start 06/12/16 at 17:00 Linezolid 300 ml @ 300 mls/hr Q12 IVPB Last administered on 06/19/16 09:57; Admin Dose 300 MLS/HR; Start 06/14/16 at 21:00 Colistimethate Sodium 75 mg/ Sodium Chloride 100 ml @ 200 mls/hr Q12 IVPB Last administered on 06/19/16 09:30; Admin Dose 200 MLS/HR; Start 06/14/16 at 21:00 Metronidazole (Flagyl 500 Mg (Pmx)) 100 ml @ 100 mls/hr Q6 IVPB Last administered on 06/19/16 12:40; Admin Dose 100 MLS/HR; Start 06/14/16 at 18:00 Furosemide (Lasix) 20 mg DAILY@06 IV Last administered on 06/19/16 05:41; Admin Dose 20 MG; Start 06/19/16 at 06:00 LINDSAY LAGUNAS NP Jun 19, 2016 17:33
[2016-06-19] MEDS: TPN 1,000 ML IV SCH (18:00)
--- NOTE | 2016-06-19 18:01 | CONS ---
Date/Time of Note Date/Time of Note DATE: 06/19/16 TIME: 17:59 Assessment/Plan Assessment/Plan Chief Complaint/Hosp Course IMp: 1.CHF-systolic acute on chonic-reasonable volume status at this time 2.Resp failure s/p trach on vent 3.Cardiomyopathy-LVEF 25-30% 4.HTN-with episodes of borderline Hotn 5.PPM-s/p interrogation with proper function-episodes of SVT and shot episode VT 06/09/16/good battery life 6.Leukocytosis 7.Tachycardia-PAF 8.Perforated viscous s/p IR drain placement Recc: -Tele -Follow BP/Volume status closely -Continue abx's and f/u cx data -Continue atenolol as tolerated/possible only -Continue asa/low dose lovenox -Continue abx's/f/u cx data -Follow IR drainage output -Palliative care following Problems: Consultation Date/Type/Reason Admit Date/Time Jun 06, 2016 at 08:08 Initial Consult Date 06/07/16 Type of Consultation: Cardiology Reason for Consultation AFL/CHF Referring Provider: HOLLI LINDER MD Exam/Review of Systems Vital Signs Vitals Vital Signs Date Time Temp Pulse Resp B/P Pulse Ox O2 Delivery O2 Flow Rate FiO2 06/19/16 17:00 60 23 98 30 06/19/16 15:44 98.1 90/58 06/17/16 06:00 Mechanical Ventilator Trach Collar Intake and Output 06/18/16 06/18/16 06/19/16 15:00 23:00 07:00 Intake Total 100 ml 1822 ml 100 ml Output Total 25 ml 1910 ml 2300 ml Balance 75 ml -88 ml -2200 ml Exam Review of Systems: CONSTITUTIONAL: No fevers, chills. PULMONARY: No sob CARDIOVASCULAR: No chest pain/palpitations GASTROINTESTINAL: No nausea/vomiting. GENITOURINARY: No hematuria/dysuria. MUSCULOSKELETAL: No myagias/arthalgias. PSYCHIATRIC: The patient denies depression. NEUROLOGIC: lethargic Constitutional: other (sleeping) ENMT: mucosa pink and moist Neck: jvd (9 cm water), other (trached) Respiratory: diminished breath sounds (at bases/B) Cardiovascular: regular rate and rhythm Gastrointestinal: non-tender, soft Musculoskeletal: muscle weakness (generalized) Extremities: edema (none) Neurological: confused, lethargic Results Result Diagram: 06/19/16 0545 06/19/16 0545 Results 24 hrs Laboratory Tests Test 06/18/16 21:50 06/19/16 00:17 06/19/16 04:36 06/19/16 05:45 Bedside Glucose 93 144 103 White Blood Count 17.1 #H Red Blood Count 2.88 #L Hemoglobin 8.4 #L Hematocrit 26.7 #L Mean Corpuscular Volume 92.7 Mean Corpuscular Hemoglobin 29.2 Mean Corpuscular Hemoglobin Concent 31.5 L Red Cell Distribution Width 16.2 H Platelet Count 144 Mean Platelet Volume 11.6 H Neutrophils % 79.7 H Lymphocytes % 9.4 L Monocytes % 4.8 Eosinophils % 1.8 Basophils % 0.1 Nucleated Red Blood Cells % 0.0 Neutrophils # 13.7 H Lymphocytes # 1.6 Monocytes # 0.8 Eosinophils # 0.3 Basophils # 0.0 Nucleated Red Blood Cells # 0.0 Sodium Level 131 L Potassium Level 3.8 Chloride Level 99 Carbon Dioxide Level 23 Anion Gap 13 Blood Urea Nitrogen 18 Creatinine 0.85 Glucose Level 95 Calcium Level 7.9 L Total Bilirubin 0.1 L Direct Bilirubin 0.00 Indirect Bilirubin 0.1 Aspartate Amino Transf (AST/SGOT) 27 Alanine Aminotransferase (ALT/SGPT) 25 Alkaline Phosphatase 53 Total Protein 5.4 L Albumin 2.2 L Globulin 3.20 Albumin/Globulin Ratio 0.68 Test 06/19/16 08:26 06/19/16 11:58 06/19/16 16:48 Bedside Glucose 113 191 107 Medications Medications Current Medications Naloxone HCl (Narcan) 0.4 mg Q3M PRN IV DECREASED REPIRATORY RATE; Start at 10:30 Ondansetron HCl (Zofran Inj) 4 mg Q6H PRN IV NAUSEA AND/OR VOMITING; Start 01/12 at 10:30 Nitroglycerin (Nitroglycerin (Sl Tab) 0.4 Mg) 1 tab Q5M PRN SL CHEST PAIN; Start 06/06/16 at 10:30 Acetaminophen (Tylenol Liquid) 650 mg Q6H PRN PO PAIN LEVEL 1-3 OR FEVER; Start 06/06/16 at 10:30 Morphine Sulfate (morphine) 2 mg Q4H PRN IV PAIN LEVEL 7-10 Last administered on 06/15/16t 00:22; Admin Dose 2 MG; Start 06/06/16 at 10:30 Docusate Sodium (Colace) 100 mg Q12H PRN PO CONSTIPATION; Start 06/06/16 at 10: 30 Magnesium Hydroxide (Milk Of Mag) 30 ml DAILY PRN PO CONSTIPATION; Start at 10:30 Bisacodyl (Dulcolax) 5 mg DAILY PRN PO CONSTIPATION; Start 06/06/16 at 10:30 Pantoprazole (Protonix Iv) 40 mg DAILY@06 IV Last administered on 06/19/16 05: 41; Admin Dose 40 MG; Start 06/07/16 at 06:00 Enoxaparin Sodium (Lovenox) 40 mg DAILY SC Last administered on 06/19/16 09:59 ; Admin Dose 40 MG; Start 06/07/16 at 09:00 Collagenase (Santyl) 1 applic DAILY TOP Last administered on 06/19/16 15:02; Admin Dose 1 APPLIC; Start 06/07/16 at 09:00 Collagenase (Santyl) 1 applic PRN PRN TOP WOUND CARE; Start 06/06/16 at 16:00 IV Flush (NS 10 ml) 10 ml PRN PRN IV IV PROTOCOL; Start 06/06/16 at 18:30 Ascorbic Acid (Vitamin C) 500 mg DAILY GTB Last administered on 06/19/16 09:29 ; Admin Dose 500 MG; Start 06/07/16 at 09:00 Aspirin (Aspirin) 325 mg DAILY GTB Last administered on 06/19/16 09:28; Admin Dose 325 MG; Start 06/07/16 at 09:00 Multivitamins (Thera-Plus) 5 ml DAILY GTB Last administered on 06/19/16 09:28 ; Admin Dose 5 ML; Start 06/07/16 at 09:00 Tamsulosin HCl (Flomax) 0.4 mg HS PO Last administered on 06/18/16 21:51; Admin Dose 0.4 MG; Start 06/07/16 at 21:00 Zinc Sulfate (Zinc Sulfate) 220 mg DAILY GTB Last administered on 06/19/16 09: 57; Admin Dose 220 MG; Start 06/07/16 at 09:00 Mupirocin (Bactroban) 1 applic BID TOP Last administered on 06/19/16 09:31; Admin Dose 1 APPLIC; Start 06/07/16 at 21:00 Metoclopramide HCl (Reglan) 10 mg Q6H PRN IV NAUSEA AND/OR VOMITING Last administered on 06/08/16 18:00; Admin Dose 10 MG; Start 06/08/16 at 09:30 Atenolol (Tenormin) 25 mg DAILY PO Last administered on 06/19/16 09:29; Admin Dose 25 MG; Start 06/08/16 at 11:30 Lorazepam 1 mg 1 mg Q6H PRN IV AGITATION/ANXIETY Last administered on 12:34; Admin Dose 1 MG; Start 06/09/16 at 13:30 Fluconazole 100 ml @ 100 mls/hr Q24H IVPB Last administered on 06/19/16 09:57 ; Admin Dose 100 MLS/HR; Start 06/10/16 at 09:00 Total Parenteral Nutrition 1,000 ml @ 40 mls/hr Q24H IV Last administered on 17:17; Admin Dose 40 MLS/HR; Start 06/12/16 at 18:00 Fat Emulsion Intravenous (Liposyn Ii 20%) 500 ml @ 21 mls/hr [id number] IV Last administered on 06/19/16 17:04; Admin Dose 21 MLS/HR; Start 06/12/16 at 18:00 Diagnostic Test (Pha) 1 ea 1 ea Q4 XX Last administered on 06/19/16 05:20; Admin Dose 1 EA; Start 06/12/16 at 17:00 Linezolid 300 ml @ 300 mls/hr Q12 IVPB Last administered on 06/19/16 09:57; Admin Dose 300 MLS/HR; Start 06/14/16 at 21:00 Colistimethate Sodium 75 mg/ Sodium Chloride 100 ml @ 200 mls/hr Q12 IVPB Last administered on 06/19/16 09:30; Admin Dose 200 MLS/HR; Start 06/14/16 at 21:00 Metronidazole (Flagyl 500 Mg (Pmx)) 100 ml @ 100 mls/hr Q6 IVPB Last administered on 06/19/16 12:40; Admin Dose 100 MLS/HR; Start 06/14/16 at 18:00 Furosemide (Lasix) 20 mg DAILY@06 IV Last administered on 06/19/16t 05:41; Admin Dose 20 MG; Start 06/19/16 at 06:00 JAYA GORE Jun 19, 2016 18:01
[2016-06-19] MEDS: TAMSULOSIN (SR) 0.4 MG CAP PO SCH (21:42)
[2016-06-20] VITALS (25 sets, daily range): BP systolic 103–131; BP diastolic 52–63; PULSE 60–85; RESP 16–35
[2016-06-20] MEDS: metroNIDAZOLE 500 MG/NS (PMX) 100 ML IVPB SCH ×4 (00:17→17:56)
[2016-06-20] MEDS: IPRATROPIUM (HFA) 12.9 GM INHALER INH SCH ×6 (00:42→21:27)
[2016-06-20] MEDS: ALBUTEROL 18 GM INHALER INH SCH ×6 (00:42→21:27)
[2016-06-20] MEDS: ACCU-CHEK XX SCH ×6 (01:00→22:06)
[2016-06-20] MEDS: FUROSEMIDE 20 MG INJ IV SCH (05:54)
[2016-06-20] MEDS: PANTOPRAZOLE 40 MG INJ IV SCH (05:54)
[2016-06-20 07:27] LABS: ADD SCAN DIFF NO
[2016-06-20 07:42] LABS: BASOPHILS % 0.1 % (0.0-2.0); EOSINOPHILS # 0.4 10^3/ul (0.0-0.5); EOSINOPHILS % 2.4 % (0.0-7.0); HEMATOCRIT 27.1 % (42.0-52.0); HEMOGLOBIN 8.6 g/dl (14.0-18.0); LYMPHOCYTES # 1.5 10^3/ul (0.8-2.9); LYMPHOCYTES % 10.6 % (15.0-51.0); MEAN CORPUSCULAR HEMOGLOBIN 29.5 pg (29.0-33.0); MEAN CORPUSCULAR HGB CONC 31.7 g/dl (32.0-37.0); MEAN CORPUSCULAR VOLUME 92.8 fl (82.0-101.0); MEAN PLATELET VOLUME 11.8 fl (7.4-10.4); MONOCYTE # 0.9 10^3/ul (0.3-0.9); MONOCYTES % 6.4 % (0.0-11.0); NEUTROPHILS % 76.1 % (39.0-77.0); PLATELET COUNT 136 10^3/UL (140-415); RED BLOOD COUNT 2.92 10^6/ul (4.70-6.10); RED CELL DISTRIBUTION WIDTH 16.2 % (11.5-14.5); WHITE BLOOD COUNT 14.5 10^3/ul (4.8-10.8)
[2016-06-20 07:51] LABS: CALCIUM 8.2 mg/dl (8.4-10.2); CREATININE 1.01 mg/dl (0.61-1.24); MAGNESIUM 1.7 mg/dl (1.7-2.5); PHOSPHORUS 5.1 mg/dl (2.5-4.9); POTASSIUM 4.1 mmol/L (3.5-5.1)
[2016-06-20] MEDS: COLLAGENASE 30 GM TUBE TOP SCH ×2 (08:30→17:55)
[2016-06-20] MEDS: COLISTIMETHATE 75 MG in SOD CHLORIDE 0.9% 100 ML IVPB SCH ×2 (08:30→22:13)
[2016-06-20] MEDS: FLUCONAZOLE 200 MG/NS (PMX) 100 ML IVPB SCH (08:31)
[2016-06-20] MEDS: ZINC SULFATE 220 MG CAP GTB SCH (08:31)
[2016-06-20] MEDS: ASCORBIC ACID 500 MG TAB GTB SCH (08:31)
[2016-06-20] MEDS: ASPIRIN 325 MG TAB GTB SCH (08:31)
[2016-06-20] MEDS: ATENOLOL 25 MG TAB PO SCH (08:32)
[2016-06-20] MEDS: LINEZOLID 600 MG/D5W (PMX) 300 ML IVPB SCH ×2 (10:19→22:05)
[2016-06-20] MEDS: MULTIVITAMINS 5 ML CUP GTB SCH (10:19)
[2016-06-20] MEDS: MUPIROCIN 2% 22 GM OINT TOP SCH ×2 (10:20→22:05)
[2016-06-20] MEDS: ENOXAPARIN 40 MG/0.4 ML SYG SC SCH (10:22)
--- NOTE | 2016-06-20 12:58 | CONS ---
Date/Time of Note Date/Time of Note DATE: 06/20/16 TIME: 12:57 Assessment/Plan Assessment/Plan Additional Assessment/Plan 1.CHF-systolic acute on chonic-reasonable volume status at this time - con'tto keep euvolemic. BETTER NOW. 2.Resp failure s/p trach on vent - con't resp rx - stable - Pulmonary Follows 3.Cardiomyopathy-LVEF 25-30%- no intervention planned now 4.HTN-with episodes of borderline Hotn - better now 5.PPM-s/p interrogation with proper function-episodes of SVT and shot episode VT 06/09/16/good battery life - good function INTERMITTENT PACING 6.Leukocytosis 7.Tachycardia-PAF- rate controlled 8.Perforated viscous s/p IR drain placement Consultation Date/Type/Reason Admit Date/Time Jun 06, 2016 at 08:08 Initial Consult Date 06/07/16 Type of Consultation: Cardiology Referring Provider: HOLLI LINDER MD 24 HR Interval Summary Free Text/Dictation No acute events - stable on ttele - con't Med rx ROS: No fever, no chills, no nausea, no vomiting, no diarrhea/constipation No recent weight changes No chest pain, no PND, no orthopnea No dizziness, blurred vision No thirst, no heat or cold intolerance Exam/Review of Systems Vital Signs Vitals Vital Signs Date Time Temp Pulse Resp B/P Pulse Ox O2 Delivery O2 Flow Rate FiO2 06/20/16 12:52 85 06/20/16 11:50 25 97 30 06/20/16 11:02 97.6 103/54 06/17/16 06:00 Mechanical Ventilator Trach Collar Intake and Output 06/19/16 06/19/16 06/20/16 15:00 23:00 07:00 Intake Total 550 ml 1600 ml 1382 ml Output Total 2000 ml 1060 ml Balance 550 ml -400 ml 322 ml Exam General: WN/WD/NAD, AOx 0 HEENT: Unicetric/atraumatic/EOMI (does not follow commands) NECK: no thyromegaly, trach Lymph: no lymphadenopathy HEART: regular with no S3, II/ systolic murmur at apex LUNGS: Coarse sounds ABD: soft, NT, ND, +BS : Intact Neuro: non focal SKIN: chronic changes EXT: trace edema Results Result Diagram: 06/20/1664406/20/16644 Results 24 hrs Laboratory Tests Test 06/19/16 16:48 06/19/16 21:49 06/20/16 01:06 06/20/16 05:52 Bedside Glucose 107 102 115 94 Test 06/20/16 06:45 06/20/16 08:28 06/20/16 12:12 White Blood Count 14.5 H Red Blood Count 2.92 L Hemoglobin 8.6 L Hematocrit 27.1 L Mean Corpuscular Volume 92.8 Mean Corpuscular Hemoglobin 29.5 Mean Corpuscular Hemoglobin Concent 31.7 L Red Cell Distribution Width 16.2 H Platelet Count 136 L Mean Platelet Volume 11.8 H Neutrophils % 76.1 Lymphocytes % 10.6 L Monocytes % 6.4 Eosinophils % 2.4 Basophils % 0.1 Nucleated Red Blood Cells % 0.0 Neutrophils # 11.0 H Lymphocytes # 1.5 Monocytes # 0.9 Eosinophils # 0.4 Basophils # 0.0 Nucleated Red Blood Cells # 0.0 Sodium Level 129 L Potassium Level 4.1 Chloride Level 100 Carbon Dioxide Level 24 Anion Gap 9 Blood Urea Nitrogen 21 H Creatinine 1.01 Glucose Level 99 Calcium Level 8.2 L Phosphorus Level 5.1 H Magnesium Level 1.7 Bedside Glucose 97 102 Medications Medications Current Medications Naloxone HCl (Narcan) 0.4 mg Q3M PRN IV DECREASED REPIRATORY RATE; Start at 10:30 Ondansetron HCl (Zofran Inj) 4 mg Q6H PRN IV NAUSEA AND/OR VOMITING; Start 01/12 at 10:30 Nitroglycerin (Nitroglycerin (Sl Tab) 0.4 Mg) 1 tab Q5M PRN SL CHEST PAIN; Start 06/06/16 at 10:30 Acetaminophen (Tylenol Liquid) 650 mg Q6H PRN PO PAIN LEVEL 1-3 OR FEVER; Start 06/06/16 at 10:30 Morphine Sulfate (morphine) 2 mg Q4H PRN IV PAIN LEVEL 7-10 Last administered on 06/15/16t 00:22; Admin Dose 2 MG; Start 06/06/16 at 10:30 Docusate Sodium (Colace) 100 mg Q12H PRN PO CONSTIPATION; Start 06/06/16 at 10: 30 Magnesium Hydroxide (Milk Of Mag) 30 ml DAILY PRN PO CONSTIPATION; Start at 10:30 Bisacodyl (Dulcolax) 5 mg DAILY PRN PO CONSTIPATION; Start 06/06/16 at 10:30 Pantoprazole (Protonix Iv) 40 mg DAILY@06 IV Last administered on 06/20/16 05: 54; Admin Dose 40 MG; Start 06/07/16 at 06:00 Enoxaparin Sodium (Lovenox) 40 mg DAILY SC Last administered on 06/20/16 10:22 ; Admin Dose 40 MG; Start 06/07/16 at 09:00 Collagenase (Santyl) 1 applic DAILY TOP Last administered on 06/19/16 15:02; Admin Dose 1 APPLIC; Start 06/07/16 at 09:00 Collagenase (Santyl) 1 applic PRN PRN TOP WOUND CARE; Start 06/06/16 at 16:00 IV Flush (NS 10 ml) 10 ml PRN PRN IV IV PROTOCOL; Start 06/06/16 at 18:30 Ascorbic Acid (Vitamin C) 500 mg DAILY GTB Last administered on 06/20/16 08:31 ; Admin Dose 500 MG; Start 06/07/16 at 09:00 Aspirin (Aspirin) 325 mg DAILY GTB Last administered on 06/20/16 08:31; Admin Dose 325 MG; Start 06/07/16 at 09:00 Multivitamins (Thera-Plus) 5 ml DAILY GTB Last administered on 06/20/16 10:19 ; Admin Dose 5 ML; Start 06/07/16 at 09:00 Tamsulosin HCl (Flomax) 0.4 mg HS PO Last administered on 06/19/16 21:42; Admin Dose 0.4 MG; Start 06/07/16 at 21:00 Zinc Sulfate (Zinc Sulfate) 220 mg DAILY GTB Last administered on 06/20/16 08: 31; Admin Dose 220 MG; Start 06/07/16 at 09:00 Mupirocin (Bactroban) 1 applic BID TOP Last administered on 06/20/16 10:20; Admin Dose 1 APPLIC; Start 06/07/16 at 21:00 Metoclopramide HCl (Reglan) 10 mg Q6H PRN IV NAUSEA AND/OR VOMITING Last administered on 06/08/16 18:00; Admin Dose 10 MG; Start 06/08/16 at 09:30 Atenolol (Tenormin) 25 mg DAILY PO Last administered on 06/20/16 08:32; Admin Dose 25 MG; Start 06/08/16 at 11:30 Lorazepam 1 mg 1 mg Q6H PRN IV AGITATION/ANXIETY Last administered on 12:34; Admin Dose 1 MG; Start 06/09/16 at 13:30 Fluconazole 100 ml @ 100 mls/hr Q24H IVPB Last administered on 06/20/16 08:31 ; Admin Dose 100 MLS/HR; Start 06/10/16 at 09:00 Total Parenteral Nutrition 1,000 ml @ 40 mls/hr Q24H IV Last administered on 18:00; Admin Dose 40 MLS/HR; Start 06/12/16 at 18:00 Fat Emulsion Intravenous (Liposyn Ii 20%) 500 ml @ 21 mls/hr [id number] IV Last administered on 06/19/16 17:04; Admin Dose 21 MLS/HR; Start 06/12/16 at 18:00 Diagnostic Test (Pha) 1 ea 1 ea Q4 XX Last administered on 06/19/16 05:20; Admin Dose 1 EA; Start 06/12/16 at 17:00 Linezolid 300 ml @ 300 mls/hr Q12 IVPB Last administered on 06/20/16 10:19; Admin Dose 300 MLS/HR; Start 06/14/16 at 21:00 Colistimethate Sodium 75 mg/ Sodium Chloride 100 ml @ 200 mls/hr Q12 IVPB Last administered on 06/20/16 08:30; Admin Dose 200 MLS/HR; Start 06/14/16 at 21:00 Metronidazole (Flagyl 500 Mg (Pmx)) 100 ml @ 100 mls/hr Q6 IVPB Last administered on 06/20/16 12:15; Admin Dose 100 MLS/HR; Start 06/14/16 at 18:00 Furosemide (Lasix) 20 mg DAILY@06 IV Last administered on 06/20/16 05:54; Admin Dose 20 MG; Start 06/19/16 at 06:00 ZEUS CHAPPELL MD Jun 20, 2016 12:58
--- NOTE | 2016-06-20 14:32 | CONS ---
Date/Time of Note Date/Time of Note DATE: 06/20/16 TIME: 14:31 Consult Date/Type/Reason Admit Date/Time Jun 06, 2016 at 08:08 Initial Consult Date 06/07/16 Type of Consultation: pulmonary Ordering Provider: HOLLI LINDER MD Subjective Transfer to telemetry yesterday remained stable no new events Objective Vital Signs Date Time Temp Pulse Resp B/P Pulse Ox O2 Delivery O2 Flow Rate FiO2 06/20/16 13:45 58 28 95 30 06/20/16 11:02 97.6 103/54 06/17/16 06:00 Mechanical Ventilator Trach Collar Intake and Output 06/19/16 06/19/16 06/20/16 15:00 23:00 07:00 Intake Total 550 ml 1600 ml 1382 ml Output Total 2000 ml 1060 ml Balance 550 ml -400 ml 322 ml Exam GENERAL: Elderly gentleman on mechanical ventilation via tracheostomy VITAL SIGNS: per chart NECK: Supple. No JVD or lymphadenopathy. CARDIAC EXAM: S1, S2. No added sounds or murmurs. CHEST: clear bilaterally, No added sounds, rales or wheezes ABDOMEN: Soft, nontender. No guarding or rebound. EXTREMITIES: No cyanosis, clubbing edema +1 NEUROLOGIC: Generalized weakness. Results/Medications Result Diagram: 06/20/16 0645 06/20/16 0645 Results 24 hrs Laboratory Tests Test 06/19/16 16:48 06/19/16 21:49 06/20/16 01:06 06/20/16 05:52 Bedside Glucose 107 102 115 94 Test 06/20/16 06:45 06/20/16 08:28 06/20/16 12:12 White Blood Count 14.5 H Red Blood Count 2.92 L Hemoglobin 8.6 L Hematocrit 27.1 L Mean Corpuscular Volume 92.8 Mean Corpuscular Hemoglobin 29.5 Mean Corpuscular Hemoglobin Concent 31.7 L Red Cell Distribution Width 16.2 H Platelet Count 136 L Mean Platelet Volume 11.8 H Neutrophils % 76.1 Lymphocytes % 10.6 L Monocytes % 6.4 Eosinophils % 2.4 Basophils % 0.1 Nucleated Red Blood Cells % 0.0 Neutrophils # 11.0 H Lymphocytes # 1.5 Monocytes # 0.9 Eosinophils # 0.4 Basophils # 0.0 Nucleated Red Blood Cells # 0.0 Sodium Level 129 L Potassium Level 4.1 Chloride Level 100 Carbon Dioxide Level 24 Anion Gap 9 Blood Urea Nitrogen 21 H Creatinine 1.01 Glucose Level 99 Calcium Level 8.2 L Phosphorus Level 5.1 H Magnesium Level 1.7 Bedside Glucose 97 102 Medications Current Medications Naloxone HCl (Narcan) 0.4 mg Q3M PRN IV DECREASED REPIRATORY RATE; Start at 10:30 Ondansetron HCl (Zofran Inj) 4 mg Q6H PRN IV NAUSEA AND/OR VOMITING; Start 01/12 at 10:30 Nitroglycerin (Nitroglycerin (Sl Tab) 0.4 Mg) 1 tab Q5M PRN SL CHEST PAIN; Start 06/06/16 at 10:30 Acetaminophen (Tylenol Liquid) 650 mg Q6H PRN PO PAIN LEVEL 1-3 OR FEVER; Start 06/06/16 at 10:30 Morphine Sulfate (morphine) 2 mg Q4H PRN IV PAIN LEVEL 7-10 Last administered on 06/15/16 00:22; Admin Dose 2 MG; Start 06/06/16 at 10:30 Docusate Sodium (Colace) 100 mg Q12H PRN PO CONSTIPATION; Start 06/06/16 at 10: 30 Magnesium Hydroxide (Milk Of Mag) 30 ml DAILY PRN PO CONSTIPATION; Start at 10:30 Bisacodyl (Dulcolax) 5 mg DAILY PRN PO CONSTIPATION; Start 06/06/16 at 10:30 Pantoprazole (Protonix Iv) 40 mg DAILY@06 IV Last administered on 06/20/16 05: 54; Admin Dose 40 MG; Start 06/07/16 at 06:00 Enoxaparin Sodium (Lovenox) 40 mg DAILY SC Last administered on 06/20/16 10:22 ; Admin Dose 40 MG; Start 06/07/16 at 09:00 Collagenase (Santyl) 1 applic DAILY TOP Last administered on 06/19/16 15:02; Admin Dose 1 APPLIC; Start 06/07/16 at 09:00 Collagenase (Santyl) 1 applic PRN PRN TOP WOUND CARE; Start 06/06/16 at 16:00 IV Flush (NS 10 ml) 10 ml PRN PRN IV IV PROTOCOL; Start 06/06/16 at 18:30 Ascorbic Acid (Vitamin C) 500 mg DAILY GTB Last administered on 06/20/16 08:31 ; Admin Dose 500 MG; Start 06/07/16 at 09:00 Aspirin (Aspirin) 325 mg DAILY GTB Last administered on 06/20/16 08:31; Admin Dose 325 MG; Start 06/07/16 at 09:00 Multivitamins (Thera-Plus) 5 ml DAILY GTB Last administered on 06/20/16 10:19 ; Admin Dose 5 ML; Start 06/07/16 at 09:00 Tamsulosin HCl (Flomax) 0.4 mg HS PO Last administered on 06/19/16 21:42; Admin Dose 0.4 MG; Start 06/07/16 at 21:00 Zinc Sulfate (Zinc Sulfate) 220 mg DAILY GTB Last administered on 06/20/16 08: 31; Admin Dose 220 MG; Start 06/07/16 at 09:00 Mupirocin (Bactroban) 1 applic BID TOP Last administered on 06/20/16 10:20; Admin Dose 1 APPLIC; Start 06/07/16 at 21:00 Metoclopramide HCl (Reglan) 10 mg Q6H PRN IV NAUSEA AND/OR VOMITING Last administered on 06/08/16 18:00; Admin Dose 10 MG; Start 06/08/16 at 09:30 Atenolol (Tenormin) 25 mg DAILY PO Last administered on 06/20/16 08:32; Admin Dose 25 MG; Start 06/08/16 at 11:30 Lorazepam 1 mg 1 mg Q6H PRN IV AGITATION/ANXIETY Last administered on 12:34; Admin Dose 1 MG; Start 06/09/16 at 13:30 Fluconazole 100 ml @ 100 mls/hr Q24H IVPB Last administered on 06/20/16 08:31 ; Admin Dose 100 MLS/HR; Start 06/10/16 at 09:00 Total Parenteral Nutrition 1,000 ml @ 40 mls/hr Q24H IV Last administered on 18:00; Admin Dose 40 MLS/HR; Start 06/12/16 at 18:00 Fat Emulsion Intravenous (Liposyn Ii 20%) 500 ml @ 21 mls/hr [id number] IV Last administered on 06/19/16 17:04; Admin Dose 21 MLS/HR; Start 06/12/16 at 18:00 Diagnostic Test (Pha) 1 ea 1 ea Q4 XX Last administered on 06/19/16 05:20; Admin Dose 1 EA; Start 06/12/16 at 17:00 Linezolid 300 ml @ 300 mls/hr Q12 IVPB Last administered on 06/20/16 10:19; Admin Dose 300 MLS/HR; Start 06/14/16 at 21:00 Colistimethate Sodium 75 mg/ Sodium Chloride 100 ml @ 200 mls/hr Q12 IVPB Last administered on 06/20/16 08:30; Admin Dose 200 MLS/HR; Start 06/14/16 at 21:00 Metronidazole (Flagyl 500 Mg (Pmx)) 100 ml @ 100 mls/hr Q6 IVPB Last administered on 06/20/16 12:15; Admin Dose 100 MLS/HR; Start 06/14/16 at 18:00 Furosemide (Lasix) 20 mg DAILY@06 IV Last administered on 06/20/16 05:54; Admin Dose 20 MG; Start 06/19/16 at 06:00 Assessment/Plan Chief Complaint/Hosp Course Assessment 1. Vent dependent respiratory failure with evidence of healthcare associated pneumonia 2. Status post bowel perforation with drainage, persistent leukocytosis 3. Persistent leukocytosis sepsis likely secondary to bowel abscesses VIET drains in place decreased output 4. Chronic atrial fibrillation 5. Decubitus ulcers 6. Dysphagia with G-tube 7. Anemia likely of chronic disease Plan 1. Continue mechanical ventilation tracheostomy change 2. Continue broad-spectrum antibiotics per infectious diseases 3. Surgical recommendations regarding abdominal drains 4. Palliative care consult 5. DVT and GI prophylaxis Disposition Pending transfer to [place] Discussed With staff Problems: KAVON TROY MD, [facility] Jun 20, 2016 14:32
--- NOTE | 2016-06-20 14:59 | PN ---
Date/Time of Note Date/Time of Note DATE: 06/20/16 TIME: 14:57 Assessment/Plan Lines/Catheters IV Catheter Type (from [facility]): PICC Line Alfonso in Place (from [facility]): Yes Assessment/Plan Chief Complaint/Hosp Course 1. Contained perforated viscous s/p IR drain 06/11. Cx noted. Leukocytosis improving/ -continue drain -abx per ID -supportive 2. Pneumonia -pulmonary toilette -abx 3. Sepsis, significant leukocytosis. Improving -abx -as above 4. Sacral decubitus ulcer -off load -nutrition optimization -vit c -local care 5. Chronic AFib -rate control -optimize electrolytes -tx infections 6. Anemia -monitor 7. Hypoalbuminemia -eventual nutritional optimization 8. CHF -judicious fluid management -cardiac optimization Thank you, Problems: Subjective 24 Hr Interval Summary Transferred out of ICU. No f/c. No cough. No sz. No rashes. No bloating. No vomiting. No bleeding. Leukocytosis. Drain output decreasing. Exam/Review of Systems Vital Signs Vitals Vital Signs Date Time Temp Pulse Resp B/P Pulse Ox O2 Delivery O2 Flow Rate FiO2 06/20/16 13:45 58 28 95 30 06/20/16 11:02 97.6 103/54 06/17/16 06:00 Mechanical Ventilator Trach Collar Intake and Output 06/19/16 06/19/16 06/20/16 15:00 23:00 07:00 Intake Total 550 ml 1600 ml 1382 ml Output Total 2000 ml 1060 ml Balance 550 ml -400 ml 322 ml Exam Free Text/Dictation Constitutional: No alert, No distress, No oriented Psych: confusion, No anxiety Head: atraumatic, normocephalic Eyes: PERRL, nl conjunctiva, No icteric ENMT: mucosa pink and moist, nl external ears & nose, nl lips & teeth Neck: jvd (min), non-tender Respiratory: No congested cough, No labored breathing Cardiovascular: No edema, No regular rate and rhythm Gastrointestinal: soft, drain Left side, PEG No distended, No firm, No rebound or guarding Musculoskeletal: No joint tenderness, No nl gait and stance Extremities: No calf tenderness, No cyanosis Neurological: No nl mental status, No nl speech, No nl strength Skin: nl turgor, rash or lesions (Sacral and LE decubitus ulcerations), No diaphoresis Lymph: nl lymph nodes Results Result Diagram: 06/20/16 0645 06/20/16 0645 DAREK AHMADI MD Jun 20, 2016 14:59
[2016-06-20] MEDS: TPN 1,000 ML IV SCH (17:56)
[2016-06-20] MEDS: FAT EMULSION 20% 500 ML IV SCH (17:56)
--- NOTE | 2016-06-20 18:54 | CONS ---
Date/Time of Note Date/Time of Note DATE: 06/20/16 TIME: 18:50 Assessment/Plan Assessment/Plan Chief Complaint/Hosp Course ID PROGRESS NOTE TOTAL ABX DAY #10=> Colistin #7, Zyvox, Flagyl, Diflucan 24H INTERVAL SUMMARY POD #10 =>s/p 06/11/16 CT guided ABD Abscess drainage * Overall improving clinical indicators -- no fevers, WBC down, less drainage output * Noncommunicative on the Vent, lethargic * VSS, no fevers, WBC down today, renal fx stable * 06/20/16 0645 06/20/16 0645 PHYSICAL EXAMINATION: GENERAL: VSS, NADm, no fevers HEENT: Unremarkable, missing teeth NECK: Supple, trach-> Vent CHEST: Equal chest rise bilaterally, without dyspnea on observation HEART: Pulse RRR ABDOMEN: Soft, peg EXTREMITIES: Warm, PICC LUEXT w/TPN SKIN: Warm, dry ID ASSESSMENT: 85 yo M admitted with: 1. Sepsis with persistent leukocytosis = RESOLVING * (+)MRSA septicemia w/BCx(+) MRSA on admission * Repeat BCx (-) 2. Perforated viscus, POD #10 =>s/p 06/11/16 CT guided ABD abscess drainage catheter placement * Abdominal fluid culture growing gram-negative rods, Klebsiella, enterococcus species Leuconostoc. * Late posted Cx result ANAEROBIC CULTURE Final Organism 1 BACTEROIDES FRAGILIS 3. Respiratory failure= chronic VDRF 4. HCAP - suspect aspiration Pneumonia. * Chest x-ray revealed stable small bilateral pleural effusions with increased CHF. 5. Dysphagia. 6. Enterococcal urinary tract infection. 7. Candidiasis oral, skin folds INVASIVES: * Trach, PEG, FC, Intra-ABD drain, PICC LUEXT ABX ALLERGIES: KNDA CURRENT ABX: DAY #10=> Colistin #7, Zyvox, Flagyl, Diflucan ID RECOMMENDATIONS: 1. Continue current ABX -- anticipate de-escalation of ABX when WBC improved and drainage resolves - follow surgery recs * Colistin -> CRKP - MDRO * Zyvox ->Enterococcus * Flagyl -> Bacteroides * . . Problems: Consultation Date/Type/Reason Admit Date/Time Jun 06, 2016 at 08:08 Initial Consult Date 06/07/16 Type of Consultation: ID Referring Provider: HOLLI LINDER MD Exam/Review of Systems Vital Signs Vitals Vital Signs Date Time Temp Pulse Resp B/P Pulse Ox O2 Delivery O2 Flow Rate FiO2 06/20/16 17:06 62 33 95 30 06/20/16 15:42 98.6 108/54 06/17/16 06:00 Mechanical Ventilator Trach Collar Intake and Output 06/19/16 06/19/16 06/20/16 15:00 23:00 07:00 Intake Total 550 ml 1600 ml 1382 ml Output Total 2000 ml 1060 ml Balance 550 ml -400 ml 322 ml Results Result Diagram: 06/20/16 0645 06/20/16 0645 Results 24 hrs Laboratory Tests Test 06/19/16 21:49 06/20/16 01:06 06/20/16 05:52 06/20/16 06:45 Bedside Glucose 102 115 94 White Blood Count 14.5 H Red Blood Count 2.92 L Hemoglobin 8.6 L Hematocrit 27.1 L Mean Corpuscular Volume 92.8 Mean Corpuscular Hemoglobin 29.5 Mean Corpuscular Hemoglobin Concent 31.7 L Red Cell Distribution Width 16.2 H Platelet Count 136 L Mean Platelet Volume 11.8 H Neutrophils % 76.1 Lymphocytes % 10.6 L Monocytes % 6.4 Eosinophils % 2.4 Basophils % 0.1 Nucleated Red Blood Cells % 0.0 Neutrophils # 11.0 H Lymphocytes # 1.5 Monocytes # 0.9 Eosinophils # 0.4 Basophils # 0.0 Nucleated Red Blood Cells # 0.0 Sodium Level 129 L Potassium Level 4.1 Chloride Level 100 Carbon Dioxide Level 24 Anion Gap 9 Blood Urea Nitrogen 21 H Creatinine 1.01 Glucose Level 99 Calcium Level 8.2 L Phosphorus Level 5.1 H Magnesium Level 1.7 Test 06/20/16 08:28 06/20/16 12:12 06/20/16 17:47 Bedside Glucose 97 102 76 Medications Medications Current Medications Naloxone HCl (Narcan) 0.4 mg Q3M PRN IV DECREASED REPIRATORY RATE; Start at 10:30 Ondansetron HCl (Zofran Inj) 4 mg Q6H PRN IV NAUSEA AND/OR VOMITING; Start 01/12 at 10:30 Nitroglycerin (Nitroglycerin (Sl Tab) 0.4 Mg) 1 tab Q5M PRN SL CHEST PAIN; Start 06/06/16 at 10:30 Acetaminophen (Tylenol Liquid) 650 mg Q6H PRN PO PAIN LEVEL 1-3 OR FEVER; Start 06/06/16 at 10:30 Morphine Sulfate (morphine) 2 mg Q4H PRN IV PAIN LEVEL 7-10 Last administered on 06/15/16 00:22; Admin Dose 2 MG; Start 06/06/16 at 10:30 Docusate Sodium (Colace) 100 mg Q12H PRN PO CONSTIPATION; Start 06/06/16 at 10: 30 Magnesium Hydroxide (Milk Of Mag) 30 ml DAILY PRN PO CONSTIPATION; Start at 10:30 Bisacodyl (Dulcolax) 5 mg DAILY PRN PO CONSTIPATION; Start 06/06/16 at 10:30 Pantoprazole (Protonix Iv) 40 mg DAILY@06 IV Last administered on 06/20/16 05: 54; Admin Dose 40 MG; Start 06/07/16 at 06:00 Enoxaparin Sodium (Lovenox) 40 mg DAILY SC Last administered on 06/20/16 10:22 ; Admin Dose 40 MG; Start 06/07/16 at 09:00 Collagenase (Santyl) 1 applic DAILY TOP Last administered on 06/20/16 17:55; Admin Dose 1 APPLIC; Start 06/07/16 at 09:00 Collagenase (Santyl) 1 applic PRN PRN TOP WOUND CARE; Start 06/06/16 at 16:00 IV Flush (NS 10 ml) 10 ml PRN PRN IV IV PROTOCOL; Start 06/06/16 at 18:30 Ascorbic Acid (Vitamin C) 500 mg DAILY GTB Last administered on 06/20/16 08:31 ; Admin Dose 500 MG; Start 06/07/16 at 09:00 Aspirin (Aspirin) 325 mg DAILY GTB Last administered on 06/20/16 08:31; Admin Dose 325 MG; Start 06/07/16 at 09:00 Multivitamins (Thera-Plus) 5 ml DAILY GTB Last administered on 06/20/16 10:19 ; Admin Dose 5 ML; Start 06/07/16 at 09:00 Tamsulosin HCl (Flomax) 0.4 mg HS PO Last administered on 06/19/16 21:42; Admin Dose 0.4 MG; Start 06/07/16 at 21:00 Zinc Sulfate (Zinc Sulfate) 220 mg DAILY GTB Last administered on 06/20/16 08: 31; Admin Dose 220 MG; Start 06/07/16 at 09:00 Mupirocin (Bactroban) 1 applic BID TOP Last administered on 06/20/16 10:20; Admin Dose 1 APPLIC; Start 06/07/16 at 21:00 Metoclopramide HCl (Reglan) 10 mg Q6H PRN IV NAUSEA AND/OR VOMITING Last administered on 06/08/16 18:00; Admin Dose 10 MG; Start 06/08/16 at 09:30 Atenolol (Tenormin) 25 mg DAILY PO Last administered on 06/20/16 08:32; Admin Dose 25 MG; Start 06/08/16 at 11:30 Lorazepam 1 mg 1 mg Q6H PRN IV AGITATION/ANXIETY Last administered on 12:34; Admin Dose 1 MG; Start 06/09/16 at 13:30 Fluconazole 100 ml @ 100 mls/hr Q24H IVPB Last administered on 06/20/16 08:31 ; Admin Dose 100 MLS/HR; Start 06/10/16 at 09:00 Total Parenteral Nutrition 1,000 ml @ 40 mls/hr Q24H IV Last administered on 17:56; Admin Dose 40 MLS/HR; Start 06/12/16 at 18:00 Fat Emulsion Intravenous (Liposyn Ii 20%) 500 ml @ 21 mls/hr [id number] IV Last administered on 06/20/16 17:56; Admin Dose 21 MLS/HR; Start 06/12/16 at 18:00 Diagnostic Test (Pha) 1 ea 1 ea Q4 XX Last administered on 06/19/16 05:20; Admin Dose 1 EA; Start 06/12/16 at 17:00 Linezolid 300 ml @ 300 mls/hr Q12 IVPB Last administered on 06/20/16 10:19; Admin Dose 300 MLS/HR; Start 06/14/16 at 21:00 Colistimethate Sodium 75 mg/ Sodium Chloride 100 ml @ 200 mls/hr Q12 IVPB Last administered on 06/20/16 08:30; Admin Dose 200 MLS/HR; Start 06/14/16 at 21:00 Metronidazole (Flagyl 500 Mg (Pmx)) 100 ml @ 100 mls/hr Q6 IVPB Last administered on 06/20/16 17:56; Admin Dose 100 MLS/HR; Start 06/14/16 at 18:00 Furosemide (Lasix) 20 mg DAILY@06 IV Last administered on 06/20/16 05:54; Admin Dose 20 MG; Start 06/19/16 at 06:00 LINDSAY LAGUNAS NP Jun 20, 2016 18:54
--- NOTE | 2016-06-20 19:24 | PN ---
Date/Time of Note Date/Time of Note DATE: 06/20/16 TIME: 19:22 Assessment/Plan VTE Prophylaxis VTE Prophylaxis Intervention: other Lines/Catheters IV Catheter Type (from Nrs): PICC Line Central line still needed: Yes Urinary Cath still in place: Yes Reason Cath still needed: other (indicate) Assessment/Plan Chief Complaint/Hosp Course IMPRESSION: 1. Septic shock.better 2. Pneumonia. aspiration 3. Leukocytosis.better 4. Hematuria. better 5. Lactic acidosis. 6. Respiratory failure. 7. Gastrostomy tube placement. 8. Anemia. 9. Atrial fibrillation. 10. History of congestive heart failure with decreased ejection fraction. 11. vdrf 12. History of paroxysmal atrial fibrillation. 13. The patient now has decubitus. 14 uti 15 In the left anterior mid pelvis there is an approximate 6.3 x 3.2 x 4.7 cm air and fluid collection not definitely bowel suspicious for an abscess/ localized perforation. Diverticula in sigmoid and descending colon. Small amount of ascites. 15 polymirobial sepsis 16 pul edema BETTER plan antibiotic per id weaning per pulmonary and cardio surgery consult [facility] tpn per id lasix Problems: Subjective 24 Hr Interval Summary Subjective hx not possible: other (PER DR AHMADI FEEDING) Exam/Review of Systems Vital Signs Vitals Vital Signs Date Time Temp Pulse Resp B/P Pulse Ox O2 Delivery O2 Flow Rate FiO2 06/20/16 19:16 60 30 96 30 06/20/16 15:42 98.6 108/54 06/17/16 06:00 Mechanical Ventilator Trach Collar Intake and Output 06/19/16 06/19/16 06/20/16 15:00 23:00 07:00 Intake Total 550 ml 1600 ml 1382 ml Output Total 2000 ml 1060 ml Balance 550 ml -400 ml 322 ml Exam Respiratory: clear to auscultation Cardiovascular: regular rate and rhythm Gastrointestinal: soft Musculoskeletal: nl extremities to inspection Extremities: normal pulses Results Result Diagram: 06/20/16 0645 06/20/16 0645 Results 24 hrs Laboratory Tests Test 06/19/16 21:49 06/20/16 01:06 06/20/16 05:52 06/20/16 06:45 Bedside Glucose 102 115 94 White Blood Count 14.5 H Red Blood Count 2.92 L Hemoglobin 8.6 L Hematocrit 27.1 L Mean Corpuscular Volume 92.8 Mean Corpuscular Hemoglobin 29.5 Mean Corpuscular Hemoglobin Concent 31.7 L Red Cell Distribution Width 16.2 H Platelet Count 136 L Mean Platelet Volume 11.8 H Neutrophils % 76.1 Lymphocytes % 10.6 L Monocytes % 6.4 Eosinophils % 2.4 Basophils % 0.1 Nucleated Red Blood Cells % 0.0 Neutrophils # 11.0 H Lymphocytes # 1.5 Monocytes # 0.9 Eosinophils # 0.4 Basophils # 0.0 Nucleated Red Blood Cells # 0.0 Sodium Level 129 L Potassium Level 4.1 Chloride Level 100 Carbon Dioxide Level 24 Anion Gap 9 Blood Urea Nitrogen 21 H Creatinine 1.01 Glucose Level 99 Calcium Level 8.2 L Phosphorus Level 5.1 H Magnesium Level 1.7 Test 06/20/16 08:28 06/20/16 12:12 06/20/16 17:47 Bedside Glucose 97 102 76 Medications Medications Current Medications Naloxone HCl (Narcan) 0.4 mg Q3M PRN IV DECREASED REPIRATORY RATE; Start at 10:30 Ondansetron HCl (Zofran Inj) 4 mg Q6H PRN IV NAUSEA AND/OR VOMITING; Start 01/12 at 10:30 Nitroglycerin (Nitroglycerin (Sl Tab) 0.4 Mg) 1 tab Q5M PRN SL CHEST PAIN; Start 06/06/16 at 10:30 Acetaminophen (Tylenol Liquid) 650 mg Q6H PRN PO PAIN LEVEL 1-3 OR FEVER; Start 06/06/16 at 10:30 Morphine Sulfate (morphine) 2 mg Q4H PRN IV PAIN LEVEL 7-10 Last administered on 06/15/16 00:22; Admin Dose 2 MG; Start 06/06/16 at 10:30 Docusate Sodium (Colace) 100 mg Q12H PRN PO CONSTIPATION; Start 06/06/16 at 10: 30 Magnesium Hydroxide (Milk Of Mag) 30 ml DAILY PRN PO CONSTIPATION; Start at 10:30 Bisacodyl (Dulcolax) 5 mg DAILY PRN PO CONSTIPATION; Start 06/06/16 at 10:30 Pantoprazole (Protonix Iv) 40 mg DAILY@06 IV Last administered on 06/20/16 05: 54; Admin Dose 40 MG; Start 06/07/16 at 06:00 Enoxaparin Sodium (Lovenox) 40 mg DAILY SC Last administered on 06/20/16 10:22 ; Admin Dose 40 MG; Start 06/07/16 at 09:00 Collagenase (Santyl) 1 applic DAILY TOP Last administered on 06/20/16 17:55; Admin Dose 1 APPLIC; Start 06/07/16 at 09:00 Collagenase (Santyl) 1 applic PRN PRN TOP WOUND CARE; Start 06/06/16 at 16:00 IV Flush (NS 10 ml) 10 ml PRN PRN IV IV PROTOCOL; Start 06/06/16 at 18:30 Ascorbic Acid (Vitamin C) 500 mg DAILY GTB Last administered on 06/20/16 08:31 ; Admin Dose 500 MG; Start 06/07/16 at 09:00 Aspirin (Aspirin) 325 mg DAILY GTB Last administered on 06/20/16 08:31; Admin Dose 325 MG; Start 06/07/16 at 09:00 Multivitamins (Thera-Plus) 5 ml DAILY GTB Last administered on 06/20/16 10:19 ; Admin Dose 5 ML; Start 06/07/16 at 09:00 Tamsulosin HCl (Flomax) 0.4 mg HS PO Last administered on 06/19/16 21:42; Admin Dose 0.4 MG; Start 06/07/16 at 21:00 Zinc Sulfate (Zinc Sulfate) 220 mg DAILY GTB Last administered on 06/20/16 08: 31; Admin Dose 220 MG; Start 06/07/16 at 09:00 Mupirocin (Bactroban) 1 applic BID TOP Last administered on 06/20/16 10:20; Admin Dose 1 APPLIC; Start 06/07/16 at 21:00 Metoclopramide HCl (Reglan) 10 mg Q6H PRN IV NAUSEA AND/OR VOMITING Last administered on 06/08/16 18:00; Admin Dose 10 MG; Start 06/08/16 at 09:30 Atenolol (Tenormin) 25 mg DAILY PO Last administered on 06/20/16 08:32; Admin Dose 25 MG; Start 06/08/16 at 11:30 Lorazepam 1 mg 1 mg Q6H PRN IV AGITATION/ANXIETY Last administered on 12:34; Admin Dose 1 MG; Start 06/09/16 at 13:30 Fluconazole 100 ml @ 100 mls/hr Q24H IVPB Last administered on 06/20/16 08:31 ; Admin Dose 100 MLS/HR; Start 06/10/16 at 09:00 Total Parenteral Nutrition 1,000 ml @ 40 mls/hr Q24H IV Last administered on 17:56; Admin Dose 40 MLS/HR; Start 06/12/16 at 18:00 Fat Emulsion Intravenous (Liposyn Ii 20%) 500 ml @ 21 mls/hr [id number] IV Last administered on 06/20/16 17:56; Admin Dose 21 MLS/HR; Start 06/12/16 at 18:00 Diagnostic Test (Pha) 1 ea 1 ea Q4 XX Last administered on 06/19/16 05:20; Admin Dose 1 EA; Start 06/12/16 at 17:00 Linezolid 300 ml @ 300 mls/hr Q12 IVPB Last administered on 06/20/16 10:19; Admin Dose 300 MLS/HR; Start 06/14/16 at 21:00 Colistimethate Sodium 75 mg/ Sodium Chloride 100 ml @ 200 mls/hr Q12 IVPB Last administered on 06/20/16 08:30; Admin Dose 200 MLS/HR; Start 06/14/16 at 21:00 Metronidazole (Flagyl 500 Mg (Pmx)) 100 ml @ 100 mls/hr Q6 IVPB Last administered on 06/20/16 17:56; Admin Dose 100 MLS/HR; Start 06/14/16 at 18:00 Furosemide (Lasix) 20 mg DAILY@06 IV Last administered on 06/20/16 05:54; Admin Dose 20 MG; Start 06/19/16 at 06:00 HOLLI LINDER MD Jun 20, 2016 19:23
[2016-06-20] MEDS: TAMSULOSIN (SR) 0.4 MG CAP PO SCH (22:05)
[2016-06-21] VITALS (23 sets, daily range): BP systolic 87–139; BP diastolic 46–62; PULSE 62–77; RESP 20–35
[2016-06-21] MEDS: metroNIDAZOLE 500 MG/NS (PMX) 100 ML IVPB SCH ×4 (00:32→17:58)
[2016-06-21] MEDS: ACCU-CHEK XX SCH ×6 (01:00→21:00)
[2016-06-21] MEDS: ALBUTEROL 18 GM INHALER INH SCH ×7 (01:02→23:54)
[2016-06-21] MEDS: IPRATROPIUM (HFA) 12.9 GM INHALER INH SCH ×7 (01:02→23:55)
[2016-06-21] MEDS: PANTOPRAZOLE 40 MG INJ IV SCH (05:50)
[2016-06-21] MEDS: FUROSEMIDE 20 MG INJ IV SCH (05:50)
[2016-06-21 06:09] LABS: ADD SCAN DIFF NO
[2016-06-21 06:25] LABS: ABNORMAL IP MESSAGE 1; HEMATOCRIT 31.2 % (42.0-52.0); HEMOGLOBIN 10.1 g/dl (14.0-18.0); MEAN CORPUSCULAR HEMOGLOBIN 29.3 pg (29.0-33.0); MEAN CORPUSCULAR HGB CONC 32.4 g/dl (32.0-37.0); MEAN CORPUSCULAR VOLUME 90.4 fl (82.0-101.0); MEAN PLATELET VOLUME 11.7 fl (7.4-10.4); RED BLOOD COUNT 3.45 10^6/ul (4.70-6.10); RED CELL DISTRIBUTION WIDTH 16.2 % (11.5-14.5); WHITE BLOOD COUNT 9.1 10^3/ul (4.8-10.8)
[2016-06-21 06:33] LABS: POTASSIUM 3.3 mmol/L (3.5-5.1)
[2016-06-21 06:35] LABS: CREATININE 1.13 mg/dl (0.61-1.24)
[2016-06-21 06:36] LABS: CALCIUM 7.8 mg/dl (8.4-10.2); MAGNESIUM 1.6 mg/dl (1.7-2.5)
[2016-06-21 06:51] LABS: PLATELET COUNT 84 10^3/UL (140-415)
[2016-06-21] MEDS: MUPIROCIN 2% 22 GM OINT TOP SCH ×2 (09:00→22:30)
[2016-06-21] MEDS: COLLAGENASE 30 GM TUBE TOP SCH (09:00)
[2016-06-21] MEDS: COLISTIMETHATE 75 MG in SOD CHLORIDE 0.9% 100 ML IVPB SCH ×2 (10:13→22:41)
[2016-06-21] MEDS: ASPIRIN 325 MG TAB GTB SCH (10:13)
[2016-06-21] MEDS: LINEZOLID 600 MG/D5W (PMX) 300 ML IVPB SCH ×2 (10:13→22:30)
[2016-06-21] MEDS: FLUCONAZOLE 200 MG/NS (PMX) 100 ML IVPB SCH (10:13)
[2016-06-21] MEDS: MULTIVITAMINS 5 ML CUP GTB SCH (10:14)
[2016-06-21] MEDS: ZINC SULFATE 220 MG CAP GTB SCH (10:14)
[2016-06-21] MEDS: ASCORBIC ACID 500 MG TAB GTB SCH (10:14)
[2016-06-21] MEDS: ATENOLOL 25 MG TAB PO SCH (10:14)
[2016-06-21] MEDS: ENOXAPARIN 40 MG/0.4 ML SYG SC SCH (11:06)
[2016-06-21 11:24] LABS: EOSINOPHILS # 0.2 10^3/ul (0.0-0.5); MONOCYTE # 0.3 10^3/ul (0.3-0.9); MYELOCYTES # 0.2
--- NOTE | 2016-06-21 14:18 | CONS ---
Date/Time of Note Date/Time of Note DATE: 06/21/16 TIME: 14:16 Assessment/Plan Assessment/Plan Additional Assessment/Plan Ventilator settings; AC of 14, tidal volume 400, PEEP of 5, 30% FiO2. Assessment recommendations; 1. Patient admitted for sepsis status post tracheostomy with chronic respiratory failure. 2. Multiple sacral decubitus ulcers currently on broad-spectrum antibiotic coverage. 3. Anemia. 4. Recent bowel perforation, treated conservatively. 5. Multi-infarct dementia. 6. Atrial fibrillation. Continue current supportive care. Prognosis is poor. Consultation Date/Type/Reason Admit Date/Time Jun 06, 2016 at 08:08 Initial Consult Date 06/07/16 Type of Consultation: Pulmonary Referring Provider: HOLLI LINDER MD 24 HR Interval Summary Free Text/Dictation Patient condition remains stable. Remains essentially unresponsive. Has remained hemodynamically stable. Exam; elderly male, on ventilator via tracheostomy currently in no distress, unresponsive. Exam/Review of Systems Vital Signs Vitals Vital Signs Date Time Temp Pulse Resp B/P Pulse Ox O2 Delivery O2 Flow Rate FiO2 06/21/16 12:18 69 06/21/16 11:17 98.0 35 122/58 96 06/21/16 08:34 30 Intake and Output 06/20/16 06/20/16 06/21/16 15:00 23:00 07:00 Intake Total 700 ml 932 ml 1382 ml Output Total 0 ml 1600 ml 1017 ml Balance 700 ml -668 ml 365 ml Exam HEENT exam; supple neck, no JVD. No lymphadenopathy. Midline trachea. No thyromegaly. Tracheostomy in place. Patient bilateral corneal opacities. Patient is edentulous. Chest exam is; diminished but clear vessel. S1-S2 audible, no murmurs irregular rhythm. Abdomen examination; soft, no organomegaly. G-tube in place. Bowel sounds audible. Extremity exam is; no peripheral edema. [employer] examination; patient remains essentially unresponsive. Results Result Diagram: 06/21/16 0600 06/21/16 0558 Results 24 hrs Laboratory Tests Test 06/20/16 17:47 06/20/16 22:04 06/21/16 01:43 06/21/16 05:48 Bedside Glucose 76 91 98 92 Test 06/21/16 05:58 06/21/16 06:00 06/21/16 10:11 06/21/16 11:34 Sodium Level 131 L Potassium Level 3.3 L Chloride Level 99 Carbon Dioxide Level 24 Anion Gap 11 Blood Urea Nitrogen 22 H Creatinine 1.13 Glucose Level 85 Calcium Level 7.8 L Phosphorus Level 5.0 H Magnesium Level 1.6 L White Blood Count 9.1 # Red Blood Count 3.45 L Hemoglobin 10.1 L Hematocrit 31.2 L Mean Corpuscular Volume 90.4 Mean Corpuscular Hemoglobin 29.3 Mean Corpuscular Hemoglobin Concent 32.4 Red Cell Distribution Width 16.2 H Platelet Count 84 #L Mean Platelet Volume 11.7 H Neutrophils % 77.0 Band Neutrophils % 2.0 Lymphocytes % 11.0 L Monocytes % 3.0 Eosinophils % 2.0 Basophils % Metamyelocytes % 3.0 H Myelocytes % 2.0 H Nucleated Red Blood Cells % 0.0 Neutrophils # 7.0 Lymphocytes # 1.0 Monocytes # 0.3 Eosinophils # 0.2 Basophils # Metamyelocytes # 0.3 Myelocytes # 0.2 Nucleated Red Blood Cells # 0.0 Differential Comment MANUAL DIFF Large Platelets OCCASIONAL Bedside Glucose 88 99 Medications Medications Current Medications Naloxone HCl (Narcan) 0.4 mg Q3M PRN IV DECREASED REPIRATORY RATE; Start at 10:30 Ondansetron HCl (Zofran Inj) 4 mg Q6H PRN IV NAUSEA AND/OR VOMITING; Start 01/12 at 10:30 Nitroglycerin (Nitroglycerin (Sl Tab) 0.4 Mg) 1 tab Q5M PRN SL CHEST PAIN; Start 06/06/16 at 10:30 Acetaminophen (Tylenol Liquid) 650 mg Q6H PRN PO PAIN LEVEL 1-3 OR FEVER; Start 06/06/16 at 10:30 Morphine Sulfate (morphine) 2 mg Q4H PRN IV PAIN LEVEL 7-10 Last administered on 06/15/16t 00:22; Admin Dose 2 MG; Start 06/06/16 at 10:30 Docusate Sodium (Colace) 100 mg Q12H PRN PO CONSTIPATION; Start 06/06/16 at 10: 30 Magnesium Hydroxide (Milk Of Mag) 30 ml DAILY PRN PO CONSTIPATION; Start at 10:30 Bisacodyl (Dulcolax) 5 mg DAILY PRN PO CONSTIPATION; Start 06/06/16 at 10:30 Pantoprazole (Protonix Iv) 40 mg DAILY@06 IV Last administered on 06/21/16 05: 50; Admin Dose 40 MG; Start 06/07/16 at 06:00 Enoxaparin Sodium (Lovenox) 40 mg DAILY SC Last administered on 06/21/16 11:06 ; Admin Dose 40 MG; Start 06/07/16 at 09:00 Collagenase (Santyl) 1 applic DAILY TOP Last administered on 06/20/16 17:55; Admin Dose 1 APPLIC; Start 06/07/16 at 09:00 Collagenase (Santyl) 1 applic PRN PRN TOP WOUND CARE; Start 06/06/16 at 16:00 IV Flush (NS 10 ml) 10 ml PRN PRN IV IV PROTOCOL; Start 06/06/16 at 18:30 Ascorbic Acid (Vitamin C) 500 mg DAILY GTB Last administered on 06/21/16 10:14 ; Admin Dose 500 MG; Start 06/07/16 at 09:00 Aspirin (Aspirin) 325 mg DAILY GTB Last administered on 06/21/16 10:13; Admin Dose 325 MG; Start 06/07/16 at 09:00 Multivitamins (Thera-Plus) 5 ml DAILY GTB Last administered on 06/21/16 10:14 ; Admin Dose 5 ML; Start 06/07/16 at 09:00 Tamsulosin HCl (Flomax) 0.4 mg HS PO Last administered on 06/20/16 22:05; Admin Dose 0.4 MG; Start 06/07/16 at 21:00 Zinc Sulfate (Zinc Sulfate) 220 mg DAILY GTB Last administered on 06/21/16 10: 14; Admin Dose 220 MG; Start 06/07/16 at 09:00 Mupirocin (Bactroban) 1 applic BID TOP Last administered on 06/21/16 09:00; Admin Dose 1 APPLIC; Start 06/07/16 at 21:00 Metoclopramide HCl (Reglan) 10 mg Q6H PRN IV NAUSEA AND/OR VOMITING Last administered on 06/08/16 18:00; Admin Dose 10 MG; Start 06/08/16 at 09:30 Atenolol (Tenormin) 25 mg DAILY PO Last administered on 06/21/16 10:14; Admin Dose 25 MG; Start 06/08/16 at 11:30 Lorazepam 1 mg 1 mg Q6H PRN IV AGITATION/ANXIETY Last administered on 12:34; Admin Dose 1 MG; Start 06/09/16 at 13:30 Fluconazole 100 ml @ 100 mls/hr Q24H IVPB Last administered on 06/21/16 10:13 ; Admin Dose 100 MLS/HR; Start 06/10/16 at 09:00 Total Parenteral Nutrition (Tpn) 1,000 ml @ 40 mls/hr Q24H IV Last administered on 06/20/16 17:56; Admin Dose 40 MLS/HR; Start 06/12/16 at 18:00 Diagnostic Test (Pha) 1 ea 1 ea Q4 XX Last administered on 06/21/16 11:44; Admin Dose 1 EA; Start 06/12/16 at 17:00 Linezolid 300 ml @ 300 mls/hr Q12 IVPB Last administered on 06/21/16 10:13; Admin Dose 300 MLS/HR; Start 06/14/16 at 21:00 Colistimethate Sodium 75 mg/ Sodium Chloride 100 ml @ 200 mls/hr Q12 IVPB Last administered on 06/21/16 10:13; Admin Dose 200 MLS/HR; Start 06/14/16 at 21:00 Metronidazole (Flagyl 500 Mg (Pmx)) 100 ml @ 100 mls/hr Q6 IVPB Last administered on 06/21/16 12:07; Admin Dose 100 MLS/HR; Start 06/14/16 at 18:00 Furosemide 20 mg 20 mg DAILY@06 IV Last administered on 06/21/16 05:50; Admin Dose 20 MG; Start 06/19/16 at 06:00 Fat Emulsion Intravenous (Liposyn Ii 20%) 250 ml @ 21 mls/hr [id number] IV ; Start 06/21/16 at 14:00 GERALDINE CUNNINGHAM Jun 21, 2016 14:18
--- NOTE | 2016-06-21 15:03 | CONS ---
Date/Time of Note Date/Time of Note DATE: 06/21/16 TIME: 14:59 Assessment/Plan Assessment/Plan Chief Complaint/Hosp Course IMp: 1.CHF-systolic acute on chonic-reasonable volume status at this time 2.Resp failure s/p trach on vent 3.Cardiomyopathy-LVEF 25-30% 4.HTN-with episodes of borderline Hotn 5.PPM-s/p interrogation with proper function-episodes of SVT and shot episode VT 06/09/16/good battery life 6.Leukocytosis 7.Tachycardia-PAF 8.Perforated viscous s/p IR drain placement Recc: -Tele -Follow BP/Volume status closely -Continue abx's and f/u cx data -Continue atenolol as tolerated/possible only -Continue asa/low dose lovenox -Continue abx's/f/u cx data -Follow IR drainage output -Palliative care following Problems: Consultation Date/Type/Reason Admit Date/Time Jun 06, 2016 at 08:08 Initial Consult Date 06/07/16 Type of Consultation: Cardiology Reason for Consultation cardiomyopathy Referring Provider: HOLLI LINDER MD Exam/Review of Systems Vital Signs Vitals Vital Signs Date Time Temp Pulse Resp B/P Pulse Ox O2 Delivery O2 Flow Rate FiO2 06/21/16 14:46 70 22 99 30 06/21/16 11:17 98.0 122/58 Intake and Output 06/20/16 06/20/16 06/21/16 15:00 23:00 07:00 Intake Total 700 ml 932 ml 1382 ml Output Total 0 ml 1600 ml 1017 ml Balance 700 ml -668 ml 365 ml Exam Review of Systems: CONSTITUTIONAL: No fevers, chills. PULMONARY: No sob CARDIOVASCULAR: No chest pain/palpitations GASTROINTESTINAL: No nausea/vomiting. GENITOURINARY: No hematuria/dysuria. MUSCULOSKELETAL: No myagias/arthalgias. PSYCHIATRIC: The patient denies depression. NEUROLOGIC: encephalopathic Constitutional: alert Psych: no complaints Head: normocephalic ENMT: mucosa pink and moist Neck: jvd, supple Respiratory: diminished breath sounds Cardiovascular: regular rate and rhythm Gastrointestinal: non-tender, soft Musculoskeletal: muscle weakness (generalized) Extremities: edema (none) Neurological: lethargic Results Result Diagram: 06/21/16 0600 06/21/16 0558 Results 24 hrs Laboratory Tests Test 06/20/16 17:47 06/20/16 22:04 06/21/16 01:43 06/21/16 05:48 Bedside Glucose 76 91 98 92 Test 06/21/16 05:58 06/21/16 06:00 06/21/16 10:11 06/21/16 11:34 Sodium Level 131 L Potassium Level 3.3 L Chloride Level 99 Carbon Dioxide Level 24 Anion Gap 11 Blood Urea Nitrogen 22 H Creatinine 1.13 Glucose Level 85 Calcium Level 7.8 L Phosphorus Level 5.0 H Magnesium Level 1.6 L White Blood Count 9.1 # Red Blood Count 3.45 L Hemoglobin 10.1 L Hematocrit 31.2 L Mean Corpuscular Volume 90.4 Mean Corpuscular Hemoglobin 29.3 Mean Corpuscular Hemoglobin Concent 32.4 Red Cell Distribution Width 16.2 H Platelet Count 84 #L Mean Platelet Volume 11.7 H Neutrophils % 77.0 Band Neutrophils % 2.0 Lymphocytes % 11.0 L Monocytes % 3.0 Eosinophils % 2.0 Basophils % Metamyelocytes % 3.0 H Myelocytes % 2.0 H Nucleated Red Blood Cells % 0.0 Neutrophils # 7.0 Lymphocytes # 1.0 Monocytes # 0.3 Eosinophils # 0.2 Basophils # Metamyelocytes # 0.3 Myelocytes # 0.2 Nucleated Red Blood Cells # 0.0 Differential Comment MANUAL DIFF Large Platelets OCCASIONAL Bedside Glucose 88 99 Medications Medications Current Medications Naloxone HCl (Narcan) 0.4 mg Q3M PRN IV DECREASED REPIRATORY RATE; Start at 10:30 Ondansetron HCl (Zofran Inj) 4 mg Q6H PRN IV NAUSEA AND/OR VOMITING; Start 01/12 at 10:30 Nitroglycerin (Nitroglycerin (Sl Tab) 0.4 Mg) 1 tab Q5M PRN SL CHEST PAIN; Start 06/06/16 at 10:30 Acetaminophen (Tylenol Liquid) 650 mg Q6H PRN PO PAIN LEVEL 1-3 OR FEVER; Start 06/06/16 at 10:30 Morphine Sulfate (morphine) 2 mg Q4H PRN IV PAIN LEVEL 7-10 Last administered on 06/15/16t 00:22; Admin Dose 2 MG; Start 06/06/16 at 10:30 Docusate Sodium (Colace) 100 mg Q12H PRN PO CONSTIPATION; Start 06/06/16 at 10: 30 Magnesium Hydroxide (Milk Of Mag) 30 ml DAILY PRN PO CONSTIPATION; Start at 10:30 Bisacodyl (Dulcolax) 5 mg DAILY PRN PO CONSTIPATION; Start 06/06/16 at 10:30 Pantoprazole (Protonix Iv) 40 mg DAILY@06 IV Last administered on 06/21/16 05: 50; Admin Dose 40 MG; Start 06/07/16 at 06:00 Enoxaparin Sodium (Lovenox) 40 mg DAILY SC Last administered on 06/21/16 11:06 ; Admin Dose 40 MG; Start 06/07/16 at 09:00 Collagenase (Santyl) 1 applic DAILY TOP Last administered on 06/20/16 17:55; Admin Dose 1 APPLIC; Start 06/07/16 at 09:00 Collagenase (Santyl) 1 applic PRN PRN TOP WOUND CARE; Start 06/06/16 at 16:00 IV Flush (NS 10 ml) 10 ml PRN PRN IV IV PROTOCOL; Start 06/06/16 at 18:30 Ascorbic Acid (Vitamin C) 500 mg DAILY GTB Last administered on 06/21/16 10:14 ; Admin Dose 500 MG; Start 06/07/16 at 09:00 Aspirin (Aspirin) 325 mg DAILY GTB Last administered on 06/21/16 10:13; Admin Dose 325 MG; Start 06/07/16 at 09:00 Multivitamins (Thera-Plus) 5 ml DAILY GTB Last administered on 06/21/16 10:14 ; Admin Dose 5 ML; Start 06/07/16 at 09:00 Tamsulosin HCl (Flomax) 0.4 mg HS PO Last administered on 06/20/16 22:05; Admin Dose 0.4 MG; Start 06/07/16 at 21:00 Zinc Sulfate (Zinc Sulfate) 220 mg DAILY GTB Last administered on 06/21/16 10: 14; Admin Dose 220 MG; Start 06/07/16 at 09:00 Mupirocin (Bactroban) 1 applic BID TOP Last administered on 06/21/16 09:00; Admin Dose 1 APPLIC; Start 06/07/16 at 21:00 Metoclopramide HCl (Reglan) 10 mg Q6H PRN IV NAUSEA AND/OR VOMITING Last administered on 06/08/16 18:00; Admin Dose 10 MG; Start 06/08/16 at 09:30 Atenolol (Tenormin) 25 mg DAILY PO Last administered on 06/21/16 10:14; Admin Dose 25 MG; Start 06/08/16 at 11:30 Lorazepam 1 mg 1 mg Q6H PRN IV AGITATION/ANXIETY Last administered on 12:34; Admin Dose 1 MG; Start 06/09/16 at 13:30 Fluconazole 100 ml @ 100 mls/hr Q24H IVPB Last administered on 06/21/16 10:13 ; Admin Dose 100 MLS/HR; Start 06/10/16 at 09:00 Total Parenteral Nutrition (Tpn) 1,000 ml @ 40 mls/hr Q24H IV Last administered on 06/20/16 17:56; Admin Dose 40 MLS/HR; Start 06/12/16 at 18:00 Diagnostic Test (Pha) 1 ea 1 ea Q4 XX Last administered on 06/21/16 11:44; Admin Dose 1 EA; Start 06/12/16 at 17:00 Linezolid 300 ml @ 300 mls/hr Q12 IVPB Last administered on 06/21/16 10:13; Admin Dose 300 MLS/HR; Start 06/14/16 at 21:00 Colistimethate Sodium 75 mg/ Sodium Chloride 100 ml @ 200 mls/hr Q12 IVPB Last administered on 06/21/16 10:13; Admin Dose 200 MLS/HR; Start 06/14/16 at 21:00 Metronidazole (Flagyl 500 Mg (Pmx)) 100 ml @ 100 mls/hr Q6 IVPB Last administered on 06/21/16 12:07; Admin Dose 100 MLS/HR; Start 06/14/16 at 18:00 Furosemide 20 mg 20 mg DAILY@06 IV Last administered on 06/21/16 05:50; Admin Dose 20 MG; Start 06/19/16 at 06:00 Fat Emulsion Intravenous (Liposyn Ii 20%) 250 ml @ 21 mls/hr [id number] IV ; Start 06/21/16 at 14:00 JAAY GORE Jun 21, 2016 15:03
[2016-06-21] MEDS: TPN 1,000 ML IV SCH (16:41)
[2016-06-21] MEDS: FAT EMULSION 20% 250 ML IV SCH (16:41)
--- NOTE | 2016-06-21 17:24 | CONS ---
Date/Time of Note Date/Time of Note DATE: 06/21/16 TIME: 17:22 Assessment/Plan Assessment/Plan Chief Complaint/Hosp Course ID PROGRESS NOTE TOTAL ABX DAY #11=> Colistin #8, Zyvox, Flagyl, Diflucan 24H INTERVAL SUMMARY * Much improved, WBC normalized, no fevers, DC planning in process PHYSICAL EXAMINATION: GENERAL: VSS, NADm, no fevers HEENT: Unremarkable, missing teeth NECK: Supple, trach-> Vent CHEST: Equal chest rise bilaterally, without dyspnea on observation HEART: Pulse RRR ABDOMEN: Soft, peg EXTREMITIES: Warm, PICC LUEXT w/TPN SKIN: Warm, dry ID ASSESSMENT: 85 yo M admitted with: 1. Sepsis with persistent leukocytosis = RESOLVING * (+)MRSA septicemia w/BCx(+) MRSA on admission * Repeat BCx (-) 2. Perforated viscus, POD #10 =>s/p 06/11/16 CT guided ABD abscess drainage catheter placement * Abdominal fluid culture growing gram-negative rods, Klebsiella, enterococcus species Leuconostoc. * Late posted Cx result ANAEROBIC CULTURE Final Organism 1 BACTEROIDES FRAGILIS 3. Respiratory failure= chronic VDRF 4. HCAP - suspect aspiration Pneumonia. * Chest x-ray revealed stable small bilateral pleural effusions with increased CHF. 5. Dysphagia. 6. Enterococcal urinary tract infection. 7. Candidiasis oral, skin folds INVASIVES: * Trach, PEG, FC, Intra-ABD drain, PICC LUEXT ABX ALLERGIES: KNDA CURRENT ABX: DAY #11=> Colistin #8, Zyvox, Flagyl, Diflucan ID RECOMMENDATIONS: 1. Continue current ABX -- anticipate de-escalation of ABX when WBC improved and drainage resolves - follow surgery recs * Colistin -> CRKP - MDRO * Zyvox ->Enterococcus * Flagyl -> Bacteroides * . . Problems: Consultation Date/Type/Reason Admit Date/Time Jun 06, 2016 at 08:08 Initial Consult Date 06/07/16 Type of Consultation: ID Referring Provider: HOLLI LINDER MD Exam/Review of Systems Vital Signs Vitals Vital Signs Date Time Temp Pulse Resp B/P Pulse Ox O2 Delivery O2 Flow Rate FiO2 06/21/16 16:25 73 06/21/16 15:51 98.0 32 87/49 96 06/21/16 14:46 30 Intake and Output 06/20/16 06/20/16 06/21/16 15:00 23:00 07:00 Intake Total 700 ml 932 ml 1382 ml Output Total 0 ml 1600 ml 1017 ml Balance 700 ml -668 ml 365 ml Results Result Diagram: 06/21/16 0600 06/21/16 0558 Results 24 hrs Laboratory Tests Test 06/20/16 17:47 06/20/16 22:04 06/21/16 01:43 06/21/16 05:48 Bedside Glucose 76 91 98 92 Test 06/21/16 05:58 06/21/16 06:00 06/21/16 10:11 06/21/16 11:34 Sodium Level 131 L Potassium Level 3.3 L Chloride Level 99 Carbon Dioxide Level 24 Anion Gap 11 Blood Urea Nitrogen 22 H Creatinine 1.13 Glucose Level 85 Calcium Level 7.8 L Phosphorus Level 5.0 H Magnesium Level 1.6 L White Blood Count 9.1 # Red Blood Count 3.45 L Hemoglobin 10.1 L Hematocrit 31.2 L Mean Corpuscular Volume 90.4 Mean Corpuscular Hemoglobin 29.3 Mean Corpuscular Hemoglobin Concent 32.4 Red Cell Distribution Width 16.2 H Platelet Count 84 #L Mean Platelet Volume 11.7 H Neutrophils % 77.0 Band Neutrophils % 2.0 Lymphocytes % 11.0 L Monocytes % 3.0 Eosinophils % 2.0 Basophils % Metamyelocytes % 3.0 H Myelocytes % 2.0 H Nucleated Red Blood Cells % 0.0 Neutrophils # 7.0 Lymphocytes # 1.0 Monocytes # 0.3 Eosinophils # 0.2 Basophils # Metamyelocytes # 0.3 Myelocytes # 0.2 Nucleated Red Blood Cells # 0.0 Differential Comment MANUAL DIFF Large Platelets OCCASIONAL Bedside Glucose 88 99 Medications Medications Current Medications Naloxone HCl (Narcan) 0.4 mg Q3M PRN IV DECREASED REPIRATORY RATE; Start at 10:30 Ondansetron HCl (Zofran Inj) 4 mg Q6H PRN IV NAUSEA AND/OR VOMITING; Start 01/12 at 10:30 Nitroglycerin (Nitroglycerin (Sl Tab) 0.4 Mg) 1 tab Q5M PRN SL CHEST PAIN; Start 06/06/16 at 10:30 Acetaminophen (Tylenol Liquid) 650 mg Q6H PRN PO PAIN LEVEL 1-3 OR FEVER; Start 06/06/16 at 10:30 Morphine Sulfate (morphine) 2 mg Q4H PRN IV PAIN LEVEL 7-10 Last administered on 06/15/16 00:22; Admin Dose 2 MG; Start 06/06/16 at 10:30 Docusate Sodium (Colace) 100 mg Q12H PRN PO CONSTIPATION; Start 06/06/16 at 10: 30 Magnesium Hydroxide (Milk Of Mag) 30 ml DAILY PRN PO CONSTIPATION; Start at 10:30 Bisacodyl (Dulcolax) 5 mg DAILY PRN PO CONSTIPATION; Start 06/06/16 at 10:30 Pantoprazole (Protonix Iv) 40 mg DAILY@06 IV Last administered on 06/21/16 05: 50; Admin Dose 40 MG; Start 06/07/16 at 06:00 Enoxaparin Sodium (Lovenox) 40 mg DAILY SC Last administered on 06/21/16 11:06 ; Admin Dose 40 MG; Start 06/07/16 at 09:00 Collagenase (Santyl) 1 applic DAILY TOP Last administered on 06/20/16 17:55; Admin Dose 1 APPLIC; Start 06/07/16 at 09:00 Collagenase (Santyl) 1 applic PRN PRN TOP WOUND CARE; Start 06/06/16 at 16:00 IV Flush (NS 10 ml) 10 ml PRN PRN IV IV PROTOCOL; Start 06/06/16 at 18:30 Ascorbic Acid (Vitamin C) 500 mg DAILY GTB Last administered on 06/21/16 10:14 ; Admin Dose 500 MG; Start 06/07/16 at 09:00 Aspirin (Aspirin) 325 mg DAILY GTB Last administered on 06/21/16 10:13; Admin Dose 325 MG; Start 06/07/16 at 09:00 Multivitamins (Thera-Plus) 5 ml DAILY GTB Last administered on 06/21/16 10:14 ; Admin Dose 5 ML; Start 06/07/16 at 09:00 Tamsulosin HCl (Flomax) 0.4 mg HS PO Last administered on 06/20/16 22:05; Admin Dose 0.4 MG; Start 06/07/16 at 21:00 Zinc Sulfate (Zinc Sulfate) 220 mg DAILY GTB Last administered on 06/21/16 10: 14; Admin Dose 220 MG; Start 06/07/16 at 09:00 Mupirocin (Bactroban) 1 applic BID TOP Last administered on 06/21/16 09:00; Admin Dose 1 APPLIC; Start 06/07/16 at 21:00 Metoclopramide HCl (Reglan) 10 mg Q6H PRN IV NAUSEA AND/OR VOMITING Last administered on 06/08/16 18:00; Admin Dose 10 MG; Start 06/08/16 at 09:30 Atenolol (Tenormin) 25 mg DAILY PO Last administered on 06/21/16 10:14; Admin Dose 25 MG; Start 06/08/16 at 11:30 Lorazepam 1 mg 1 mg Q6H PRN IV AGITATION/ANXIETY Last administered on 12:34; Admin Dose 1 MG; Start 06/09/16 at 13:30 Fluconazole 100 ml @ 100 mls/hr Q24H IVPB Last administered on 06/21/16 10:13 ; Admin Dose 100 MLS/HR; Start 06/10/16 at 09:00 Total Parenteral Nutrition (Tpn) 1,000 ml @ 40 mls/hr Q24H IV Last administered on 06/21/16 16:41; Admin Dose 40 MLS/HR; Start 06/12/16 at 18:00 Diagnostic Test (Pha) 1 ea 1 ea Q4 XX Last administered on 06/21/16 11:44; Admin Dose 1 EA; Start 06/12/16 at 17:00 Linezolid 300 ml @ 300 mls/hr Q12 IVPB Last administered on 06/21/16 10:13; Admin Dose 300 MLS/HR; Start 06/14/16 at 21:00 Colistimethate Sodium 75 mg/ Sodium Chloride 100 ml @ 200 mls/hr Q12 IVPB Last administered on 06/21/16 10:13; Admin Dose 200 MLS/HR; Start 06/14/16 at 21:00 Metronidazole (Flagyl 500 Mg (Pmx)) 100 ml @ 100 mls/hr Q6 IVPB Last administered on 06/21/16 12:07; Admin Dose 100 MLS/HR; Start 06/14/16 at 18:00 Furosemide 20 mg 20 mg DAILY@06 IV Last administered on 06/21/16 05:50; Admin Dose 20 MG; Start 06/19/16 at 06:00 Fat Emulsion Intravenous (Liposyn Ii 20%) 250 ml @ 21 mls/hr [id number] IV Last administered on 06/21/16 16:41; Admin Dose 21 MLS/HR; Start 06/21/16 at 14:00 LINDSAY LAGUNAS NP Jun 21, 2016 17:24
[2016-06-21] MEDS: TAMSULOSIN (SR) 0.4 MG CAP PO SCH (22:29)
--- NOTE | 2016-06-21 23:24 | PN ---
Date/Time of Note Date/Time of Note DATE: 06/21/16 TIME: 23:23 Assessment/Plan VTE Prophylaxis VTE Prophylaxis Intervention: other Lines/Catheters IV Catheter Type (from Nrs): PICC Line Central line still needed: Yes Urinary Cath still in place: Yes Reason Cath still needed: other (indicate) Assessment/Plan Chief Complaint/Hosp Course IMPRESSION: 1. Septic shock.better 2. Pneumonia. aspiration 3. Leukocytosis.better 4. Hematuria. better 5. Lactic acidosis. 6. Respiratory failure. 7. Gastrostomy tube placement. 8. Anemia. 9. Atrial fibrillation. 10. History of congestive heart failure with decreased ejection fraction. 11. vdrf 12. History of paroxysmal atrial fibrillation. 13. The patient now has decubitus. 14 uti 15 In the left anterior mid pelvis there is an approximate 6.3 x 3.2 x 4.7 cm air and fluid collection not definitely bowel suspicious for an abscess/ localized perforation. Diverticula in sigmoid and descending colon. Small amount of ascites. 15 polymirobial sepsis 16 pul edema BETTER 17 hypokalemia plan antibiotic per id weaning per pulmonary and cardio surgery consult [facility] FEEDING tpn per id lasix Problems: Subjective 24 Hr Interval Summary Subjective hx not possible: other (will go to sub acute once off tpn) Exam/Review of Systems Vital Signs Vitals Vital Signs Date Time Temp Pulse Resp B/P Pulse Ox O2 Delivery O2 Flow Rate FiO2 06/21/16 20:51 77 06/21/16 20:41 99.6 20 108/46 99 06/21/16 20:25 24 Intake and Output 06/20/16 06/20/16 06/21/16 15:00 23:00 07:00 Intake Total 700 ml 932 ml 1382 ml Output Total 0 ml 1600 ml 1017 ml Balance 700 ml -668 ml 365 ml Exam Respiratory: clear to auscultation Cardiovascular: regular rate and rhythm Gastrointestinal: soft Genitourinary - Male: nl penis Extremities: normal pulses Results Result Diagram: 06/21/16 0600 06/21/16 0558 Results 24 hrs Laboratory Tests Test 06/21/16 01:43 06/21/16 05:48 06/21/16 05:58 06/21/16 06:00 Bedside Glucose 98 92 Sodium Level 131 L Potassium Level 3.3 L Chloride Level 99 Carbon Dioxide Level 24 Anion Gap 11 Blood Urea Nitrogen 22 H Creatinine 1.13 Glucose Level 85 Calcium Level 7.8 L Phosphorus Level 5.0 H Magnesium Level 1.6 L White Blood Count 9.1 # Red Blood Count 3.45 L Hemoglobin 10.1 L Hematocrit 31.2 L Mean Corpuscular Volume 90.4 Mean Corpuscular Hemoglobin 29.3 Mean Corpuscular Hemoglobin Concent 32.4 Red Cell Distribution Width 16.2 H Platelet Count 84 #L Mean Platelet Volume 11.7 H Neutrophils % 77.0 Band Neutrophils % 2.0 Lymphocytes % 11.0 L Monocytes % 3.0 Eosinophils % 2.0 Basophils % Metamyelocytes % 3.0 H Myelocytes % 2.0 H Nucleated Red Blood Cells % 0.0 Neutrophils # 7.0 Lymphocytes # 1.0 Monocytes # 0.3 Eosinophils # 0.2 Basophils # Metamyelocytes # 0.3 Myelocytes # 0.2 Nucleated Red Blood Cells # 0.0 Differential Comment MANUAL DIFF Large Platelets OCCASIONAL Test 06/21/16 10:11 06/21/16 11:34 06/21/16 17:57 06/21/16 22:33 Bedside Glucose 88 99 93 79 Medications Medications Current Medications Naloxone HCl (Narcan) 0.4 mg Q3M PRN IV DECREASED REPIRATORY RATE; Start at 10:30 Ondansetron HCl (Zofran Inj) 4 mg Q6H PRN IV NAUSEA AND/OR VOMITING; Start 01/12 at 10:30 Nitroglycerin (Nitroglycerin (Sl Tab) 0.4 Mg) 1 tab Q5M PRN SL CHEST PAIN; Start 06/06/16 at 10:30 Acetaminophen (Tylenol Liquid) 650 mg Q6H PRN PO PAIN LEVEL 1-3 OR FEVER; Start 06/06/16 at 10:30 Morphine Sulfate (morphine) 2 mg Q4H PRN IV PAIN LEVEL 7-10 Last administered on 06/15/16t 00:22; Admin Dose 2 MG; Start 06/06/16 at 10:30 Docusate Sodium (Colace) 100 mg Q12H PRN PO CONSTIPATION; Start 06/06/16 at 10: 30 Magnesium Hydroxide (Milk Of Mag) 30 ml DAILY PRN PO CONSTIPATION; Start at 10:30 Bisacodyl (Dulcolax) 5 mg DAILY PRN PO CONSTIPATION; Start 06/06/16 at 10:30 Pantoprazole (Protonix Iv) 40 mg DAILY@06 IV Last administered on 06/21/16 05: 50; Admin Dose 40 MG; Start 06/07/16 at 06:00 Enoxaparin Sodium (Lovenox) 40 mg DAILY SC Last administered on 06/21/16 11:06 ; Admin Dose 40 MG; Start 06/07/16 at 09:00 Collagenase (Santyl) 1 applic DAILY TOP Last administered on 06/20/16 17:55; Admin Dose 1 APPLIC; Start 06/07/16 at 09:00 Collagenase (Santyl) 1 applic PRN PRN TOP WOUND CARE; Start 06/06/16 at 16:00 IV Flush (NS 10 ml) 10 ml PRN PRN IV IV PROTOCOL; Start 06/06/16 at 18:30 Ascorbic Acid (Vitamin C) 500 mg DAILY GTB Last administered on 06/21/16 10:14 ; Admin Dose 500 MG; Start 06/07/16 at 09:00 Aspirin (Aspirin) 325 mg DAILY GTB Last administered on 06/21/16 10:13; Admin Dose 325 MG; Start 06/07/16 at 09:00 Multivitamins (Thera-Plus) 5 ml DAILY GTB Last administered on 06/21/16 10:14 ; Admin Dose 5 ML; Start 06/07/16 at 09:00 Tamsulosin HCl (Flomax) 0.4 mg HS PO Last administered on 06/21/16 22:29; Admin Dose 0.4 MG; Start 06/07/16 at 21:00 Zinc Sulfate (Zinc Sulfate) 220 mg DAILY GTB Last administered on 06/21/16 10: 14; Admin Dose 220 MG; Start 06/07/16 at 09:00 Mupirocin (Bactroban) 1 applic BID TOP Last administered on 06/21/16 22:30; Admin Dose 1 APPLIC; Start 06/07/16 at 21:00 Metoclopramide HCl (Reglan) 10 mg Q6H PRN IV NAUSEA AND/OR VOMITING Last administered on 06/08/16 18:00; Admin Dose 10 MG; Start 06/08/16 at 09:30 Atenolol (Tenormin) 25 mg DAILY PO Last administered on 06/21/16 10:14; Admin Dose 25 MG; Start 06/08/16 at 11:30 Lorazepam 1 mg 1 mg Q6H PRN IV AGITATION/ANXIETY Last administered on 12:34; Admin Dose 1 MG; Start 06/09/16 at 13:30 Fluconazole 100 ml @ 100 mls/hr Q24H IVPB Last administered on 06/21/16 10:13 ; Admin Dose 100 MLS/HR; Start 06/10/16 at 09:00 Total Parenteral Nutrition (Tpn) 1,000 ml @ 40 mls/hr Q24H IV Last administered on 06/21/16 16:41; Admin Dose 40 MLS/HR; Start 06/12/16 at 18:00 Diagnostic Test (Pha) 1 ea 1 ea Q4 XX Last administered on 06/21/16 17:57; Admin Dose 1 EA; Start 06/12/16 at 17:00 Linezolid 300 ml @ 300 mls/hr Q12 IVPB Last administered on 06/21/16 22:30; Admin Dose 300 MLS/HR; Start 06/14/16 at 21:00 Colistimethate Sodium 75 mg/ Sodium Chloride 100 ml @ 200 mls/hr Q12 IVPB Last administered on 06/21/16 22:41; Admin Dose 200 MLS/HR; Start 06/14/16 at 21:00 Metronidazole (Flagyl 500 Mg (Pmx)) 100 ml @ 100 mls/hr Q6 IVPB Last administered on 06/21/16 17:58; Admin Dose 100 MLS/HR; Start 06/14/16 at 18:00 Furosemide 20 mg 20 mg DAILY@06 IV Last administered on 06/21/16 05:50; Admin Dose 20 MG; Start 06/19/16 at 06:00 Fat Emulsion Intravenous (Liposyn Ii 20%) 250 ml @ 21 mls/hr [id number] IV Last administered on 06/21/16 16:41; Admin Dose 21 MLS/HR; Start 06/21/16 at 14:00 HOLLI LINDER MD Jun 21, 2016 23:24
[2016-06-21] MEDS ORDERED: POTASSIUM CHLORIDE (SR) 8 MEQ CAP PO ONE (23:30)
[2016-06-21] MEDS ORDERED: POTASSIUM CHLORIDE 20 MEQ POWDER FOR ORAL SOLN GTB ONE (23:57)
[2016-06-22] VITALS (23 sets, daily range): BP systolic 98–137; BP diastolic 49–66; PULSE 64–81; RESP 18–36
[2016-06-22] MEDS: metroNIDAZOLE 500 MG/NS (PMX) 100 ML IVPB SCH ×5 (00:32→23:33)
[2016-06-22] MEDS: ACCU-CHEK XX SCH ×6 (00:35→21:00)
[2016-06-22] MEDS: FAT EMULSION 20% 250 ML IV SCH ×2 (03:02→16:02)
[2016-06-22] MEDS: ALBUTEROL 18 GM INHALER INH SCH ×5 (05:00→20:10)
[2016-06-22] MEDS: IPRATROPIUM (HFA) 12.9 GM INHALER INH SCH ×5 (05:00→20:09)
[2016-06-22] MEDS: FUROSEMIDE 20 MG INJ IV SCH (05:39)
[2016-06-22] MEDS: PANTOPRAZOLE 40 MG INJ IV SCH (05:39)
--- NOTE | 2016-06-22 07:41 | PN ---
Date/Time of Note Date/Time of Note DATE: 06/21/16 TIME: 10:40 Assessment/Plan Lines/Catheters IV Catheter Type (from [facility]): PICC Line Alfonso in Place (from [facility]): Yes Assessment/Plan Chief Complaint/Hosp Course 1. Contained perforated viscous s/p IR drain 06/11. Cx noted. Leukocytosis improving -continue drain till after tube feeds started -abx per ID 2. Pneumonia -pulmonary toilette -abx 3. Sepsis, significant leukocytosis. Improving -abx -as above 4. Sacral decubitus ulcer -off load -nutrition optimization -vit c -local care 5. Chronic AFib -rate control -optimize electrolytes -tx infections 6. Anemia -monitor 7. Hypoalbuminemia -eventual nutritional optimization 8. CHF -judicious fluid management -cardiac optimization Thank you, Late entry 06/21 Problems: Subjective 24 Hr Interval Summary No f/c. No cough. No sz. No rashes. No bloating. No vomiting. No bleeding. Leukocytosis resolved. TFs pending. Bowel function Exam/Review of Systems Vital Signs Vitals Vital Signs Date Time Temp Pulse Resp B/P Pulse Ox O2 Delivery O2 Flow Rate FiO2 06/22/16 04:49 78 06/22/16 04:37 20 99 30 06/22/16 04:10 100.1 119/60 Intake and Output 06/21/16 06/21/16 06/22/16 15:00 23:00 07:00 Intake Total 1612 ml 1383 ml Output Total 15 ml 1210 ml 980 ml Balance -15 ml 402 ml 403 ml Exam Free Text/Dictation Constitutional: No alert, No distress, No oriented Psych: confusion, No anxiety Head: atraumatic, normocephalic Eyes: PERRL, nl conjunctiva, No icteric ENMT: mucosa pink and moist, nl external ears & nose, nl lips & teeth Neck: jvd (min), non-tender Respiratory: No congested cough, No labored breathing Cardiovascular: No edema, No regular rate and rhythm Gastrointestinal: soft, drain Left side, PEG No distended, No firm, No rebound or guarding Musculoskeletal: No joint tenderness, No nl gait and stance Extremities: No calf tenderness, No cyanosis Neurological: No nl mental status, No nl speech, No nl strength Skin: nl turgor, rash or lesions (Sacral and LE decubitus ulcerations), No diaphoresis Lymph: nl lymph nodes Results Result Diagram: 06/21/16 0600 06/21/16 0558 DAREK AHMADI MD Jun 22, 2016 07:41
--- NOTE | 2016-06-22 07:43 | PN ---
Date/Time of Note Date/Time of Note DATE: 06/22/16 TIME: 07:41 Assessment/Plan Lines/Catheters IV Catheter Type (from [facility]): PICC Line Alfonso in Place (from [facility]): Yes Assessment/Plan Chief Complaint/Hosp Course 1. Contained perforated viscous s/p IR drain 06/11. Cx noted. Leukocytosis resolved. Tube feeds started. Bowel function. -re-evaluate drain again and if no further leak, will dc -abx per ID 2. Pneumonia -pulmonary toilette -abx 3. Sepsis, significant leukocytosis. Improving -abx -as above 4. Sacral decubitus ulcer -off load -nutrition optimization -vit c -local care 5. Chronic AFib -rate control -optimize electrolytes -tx infections 6. Anemia -monitor 7. Hypoalbuminemia -eventual nutritional optimization 8. CHF -judicious fluid management -cardiac optimization Thank you, Problems: Subjective 24 Hr Interval Summary No f/c. No cough. No sz. No rashes. No bloating. No vomiting. No bleeding. Leukocytosis resolved. TFs started. Bowel function Exam/Review of Systems Vital Signs Vitals Vital Signs Date Time Temp Pulse Resp B/P Pulse Ox O2 Delivery O2 Flow Rate FiO2 06/22/16 04:49 78 06/22/16 04:37 20 99 30 06/22/16 04:10 100.1 119/60 Intake and Output 06/21/16 06/21/16 06/22/16 15:00 23:00 07:00 Intake Total 1612 ml 1383 ml Output Total 15 ml 1210 ml 980 ml Balance -15 ml 402 ml 403 ml Exam Free Text/Dictation Constitutional: No alert, No distress, No oriented Psych: confusion, No anxiety Head: atraumatic, normocephalic Eyes: PERRL, nl conjunctiva, No icteric ENMT: mucosa pink and moist, nl external ears & nose, nl lips & teeth Neck: jvd (min), non-tender Respiratory: No congested cough, No labored breathing Cardiovascular: No edema, No regular rate and rhythm Gastrointestinal: soft, drain Left side, PEG No distended, No firm, No rebound or guarding Musculoskeletal: No joint tenderness, No nl gait and stance Extremities: No calf tenderness, No cyanosis Neurological: No nl mental status, No nl speech, No nl strength Skin: nl turgor, rash or lesions (Sacral and LE decubitus ulcerations), No diaphoresis Lymph: nl lymph nodes Results Result Diagram: 06/21/16 0600 06/21/16 0558 DAREK AHMADI MD Jun 22, 2016 07:43
[2016-06-22 08:27] LABS: CALCIUM 8.1 mg/dl (8.4-10.2); CREATININE 1.31 mg/dl (0.61-1.24); MAGNESIUM 1.7 mg/dl (1.7-2.5); PHOSPHORUS 4.7 mg/dl (2.5-4.9); POTASSIUM 4.4 mmol/L (3.5-5.1)
[2016-06-22] MEDS: MULTIVITAMINS 5 ML CUP GTB SCH (08:50)
[2016-06-22] MEDS: ZINC SULFATE 220 MG CAP GTB SCH (08:50)
[2016-06-22] MEDS: ASCORBIC ACID 500 MG TAB GTB SCH (08:50)
[2016-06-22] MEDS: ASPIRIN 325 MG TAB GTB SCH (08:50)
[2016-06-22] MEDS: LINEZOLID 600 MG/D5W (PMX) 300 ML IVPB SCH ×2 (08:51→21:37)
[2016-06-22] MEDS: ATENOLOL 25 MG TAB PO SCH (08:51)
[2016-06-22] MEDS: MUPIROCIN 2% 22 GM OINT TOP SCH ×2 (08:52→21:37)
[2016-06-22] MEDS: COLLAGENASE 30 GM TUBE TOP SCH (08:52)
[2016-06-22] MEDS: ENOXAPARIN 40 MG/0.4 ML SYG SC SCH (09:12)
[2016-06-22] MEDS: COLISTIMETHATE 75 MG in SOD CHLORIDE 0.9% 100 ML IVPB SCH ×2 (10:14→21:36)
[2016-06-22] MEDS: FLUCONAZOLE 200 MG/NS (PMX) 100 ML IVPB SCH (11:20)
--- NOTE | 2016-06-22 11:37 | CONS ---
Date/Time of Note Date/Time of Note DATE: 06/22/16 TIME: 11:35 Assessment/Plan Assessment/Plan Additional Assessment/Plan Ventilator settings; AC of 14, tidal volume 400, PEEP of 5, 30% FiO2. Assessment recommendations; next 1. Patient admitted for sepsis with multiple sacral ulcers. 2. Chronic respiratory failure. 3. Dementia. 4. Atrial fibrillation. 5. Improving leukocytosis. 6. Recent bowel perforation, patient treated conservatively, currently on TPN. Continue current treatment. Prognosis remains poor. Consultation Date/Type/Reason Admit Date/Time Jun 06, 2016 at 08:08 Initial Consult Date 06/07/16 Type of Consultation: Pulmonary Referring Provider: HOLLI LINDER MD 24 HR Interval Summary Free Text/Dictation Patient condition remains stable. Remains essentially unresponsive. Has remained hemodynamically stable. Exam; elderly male, on ventilator via tracheostomy currently in no distress. Exam/Review of Systems Vital Signs Vitals Vital Signs Date Time Temp Pulse Resp B/P Pulse Ox O2 Delivery O2 Flow Rate FiO2 06/22/16 11:15 85 36 97 30 06/22/16 04:10 100.1 119/60 Intake and Output 06/21/16 06/21/16 06/22/16 15:00 23:00 07:00 Intake Total 1612 ml 1383 ml Output Total 15 ml 1210 ml 980 ml Balance -15 ml 402 ml 403 ml Exam HEENT exam is; supple neck, no JVD. No lymphadenopathy. Midline trachea. No thyromegaly. Patient is edentulous. Tracheostomy in place with clean insertion site. Patient bilateral corneal opacities. Chest examination; diminished but clear breath sounds. S1-S2 audible, no murmurs. Irregular rhythm. Abdomen examination; soft, G-tube in place. Nondistended. No organomegaly. Bowel sounds are sluggish Extremity examination; no peripheral edema. Next [employer] examination; patient remains unresponsive Results Result Diagram: 06/21/16 0600 06/22/16 0754 Results 24 hrs Laboratory Tests Test 06/21/16 17:57 06/21/16 22:33 06/22/16 00:34 06/22/16 05:51 Bedside Glucose 93 79 118 90 Test 06/22/16 07:54 06/22/16 08:49 Sodium Level 129 L Potassium Level 4.4 Chloride Level 103 Carbon Dioxide Level 20 L Anion Gap 10 Blood Urea Nitrogen 25 H Creatinine 1.31 H Glucose Level 95 Calcium Level 8.1 L Phosphorus Level 4.7 Magnesium Level 1.7 Bedside Glucose 90 Medications Medications Current Medications Naloxone HCl (Narcan) 0.4 mg Q3M PRN IV DECREASED REPIRATORY RATE; Start at 10:30 Ondansetron HCl (Zofran Inj) 4 mg Q6H PRN IV NAUSEA AND/OR VOMITING; Start 01/12 at 10:30 Nitroglycerin (Nitroglycerin (Sl Tab) 0.4 Mg) 1 tab Q5M PRN SL CHEST PAIN; Start 06/06/16 at 10:30 Acetaminophen (Tylenol Liquid) 650 mg Q6H PRN PO PAIN LEVEL 1-3 OR FEVER; Start 06/06/16 at 10:30 Morphine Sulfate (morphine) 2 mg Q4H PRN IV PAIN LEVEL 7-10 Last administered on 06/15/16 00:22; Admin Dose 2 MG; Start 06/06/16 at 10:30 Docusate Sodium (Colace) 100 mg Q12H PRN PO CONSTIPATION; Start 06/06/16 at 10: 30 Magnesium Hydroxide (Milk Of Mag) 30 ml DAILY PRN PO CONSTIPATION; Start at 10:30 Bisacodyl (Dulcolax) 5 mg DAILY PRN PO CONSTIPATION; Start 06/06/16 at 10:30 Pantoprazole (Protonix Iv) 40 mg DAILY@06 IV Last administered on 06/22/16 05: 39; Admin Dose 40 MG; Start 06/07/16 at 06:00 Enoxaparin Sodium (Lovenox) 40 mg DAILY SC Last administered on 06/22/16 09:12 ; Admin Dose 40 MG; Start 06/07/16 at 09:00 Collagenase (Santyl) 1 applic DAILY TOP Last administered on 06/22/16 08:52; Admin Dose 1 APPLIC; Start 06/07/16 at 09:00 Collagenase (Santyl) 1 applic PRN PRN TOP WOUND CARE; Start 06/06/16 at 16:00 IV Flush (NS 10 ml) 10 ml PRN PRN IV IV PROTOCOL; Start 06/06/16 at 18:30 Ascorbic Acid (Vitamin C) 500 mg DAILY GTB Last administered on 06/22/16 08:50 ; Admin Dose 500 MG; Start 06/07/16 at 09:00 Aspirin (Aspirin) 325 mg DAILY GTB Last administered on 06/22/16 08:50; Admin Dose 325 MG; Start 06/07/16 at 09:00 Multivitamins (Thera-Plus) 5 ml DAILY GTB Last administered on 06/22/16 08:50 ; Admin Dose 5 ML; Start 06/07/16 at 09:00 Tamsulosin HCl (Flomax) 0.4 mg HS PO Last administered on 06/21/16 22:29; Admin Dose 0.4 MG; Start 06/07/16 at 21:00 Zinc Sulfate (Zinc Sulfate) 220 mg DAILY GTB Last administered on 06/22/16 08: 50; Admin Dose 220 MG; Start 06/07/16 at 09:00 Mupirocin (Bactroban) 1 applic BID TOP Last administered on 06/22/16 08:52; Admin Dose 1 APPLIC; Start 06/07/16 at 21:00 Metoclopramide HCl (Reglan) 10 mg Q6H PRN IV NAUSEA AND/OR VOMITING Last administered on 06/08/16 18:00; Admin Dose 10 MG; Start 06/08/16 at 09:30 Atenolol (Tenormin) 25 mg DAILY PO Last administered on 06/22/16 08:51; Admin Dose 25 MG; Start 06/08/16 at 11:30 Lorazepam 1 mg 1 mg Q6H PRN IV AGITATION/ANXIETY Last administered on 12:34; Admin Dose 1 MG; Start 06/09/16 at 13:30 Fluconazole 100 ml @ 100 mls/hr Q24H IVPB Last administered on 06/22/16 11:20 ; Admin Dose 100 MLS/HR; Start 06/10/16 at 09:00 Total Parenteral Nutrition (Tpn) 1,000 ml @ 40 mls/hr Q24H IV Last administered on 06/21/16 16:41; Admin Dose 40 MLS/HR; Start 06/12/16 at 18:00 Diagnostic Test (Pha) 1 ea 1 ea Q4 XX Last administered on 06/22/16 08:52; Admin Dose 1 EA; Start 06/12/16 at 17:00 Linezolid 300 ml @ 300 mls/hr Q12 IVPB Last administered on 06/22/16 08:51; Admin Dose 300 MLS/HR; Start 06/14/16 at 21:00 Colistimethate Sodium 75 mg/ Sodium Chloride 100 ml @ 200 mls/hr Q12 IVPB Last administered on 06/22/16 10:14; Admin Dose 200 MLS/HR; Start 06/14/16 at 21:00 Metronidazole (Flagyl 500 Mg (Pmx)) 100 ml @ 100 mls/hr Q6 IVPB Last administered on 06/22/16 05:39; Admin Dose 100 MLS/HR; Start 06/14/16 at 18:00 Furosemide 20 mg 20 mg DAILY@06 IV Last administered on 06/22/16 05:39; Admin Dose 20 MG; Start 06/19/16 at 06:00 Fat Emulsion Intravenous (Liposyn Ii 20%) 250 ml @ 21 mls/hr [id number] IV Last administered on 06/22/16 03:02; Admin Dose 21 MLS/HR; Start 06/21/16 at 14:00 GERALDINE CUNNINGHAM Jun 22, 2016 11:37
--- NOTE | 2016-06-22 12:33 | CONS ---
Date/Time of Note Date/Time of Note DATE: 06/22/16 TIME: 12:26 Assessment/Plan Assessment/Plan Chief Complaint/Hosp Course ID PROGRESS NOTE TOTAL ABX DAY #12=> Colistin #9, Zyvox, Flagyl, Diflucan 24H INTERVAL SUMMARY * Remains encephalopathic on the Vent, non-communicative, looks comfortable -> s /p bowel perf treated with drain catheter and IV ABX * Pt is on TPN * Much improved, WBC normalized, no fevers, DC planning in process PHYSICAL EXAMINATION: GENERAL: VSS, NADm, no fevers HEENT: Unremarkable, missing teeth NECK: Supple, trach-> Vent CHEST: Equal chest rise bilaterally, without dyspnea on observation HEART: Pulse RRR ABDOMEN: Soft, peg EXTREMITIES: Warm, PICC LUEXT w/TPN SKIN: Warm, dry SKIN: Decubs -- see photos ID ASSESSMENT: 85 yo M admitted with: 1. s/p Sepsis with persistent leukocytosis = RESOLVED * (+)MRSA septicemia w/BCx(+) MRSA on admission * Repeat BCx (-) 2. Perforated viscus, POD #11=>s/p 06/11/16 CT guided ABD abscess drainage catheter placement * Abdominal fluid culture growing gram-negative rods, Klebsiella, enterococcus species Leuconostoc. * Late posted Cx result ANAEROBIC CULTURE Final Organism 1 BACTEROIDES FRAGILIS * FUNGAL WET MOUNT Final 10% POTASSIUM HYDROXIDE NO FUNGAL ELEMENTS OR HYPHAE SEEN 3. Respiratory failure= chronic VDRF 4. HCAP - suspect aspiration Pneumonia. * Chest x-ray revealed stable small bilateral pleural effusions with increased CHF. 5. Dysphagia. 6. Enterococcal urinary tract infection. 7. Candidiasis oral, skin folds INVASIVES: * Trach, PEG, FC, Intra-ABD drain, PICC LUEXT ABX ALLERGIES: KNDA CURRENT ABX: DAY #12=> Colistin #9, Zyvox, Flagyl Diflucan -> DC 06/12 ID RECOMMENDATIONS: 1. Continue current ABX REQUIRES at least 14 days ABX for (+)Blood Cx * Start ABX de-escalation: Today will DC Diflucan * Colistin -> CRKP - MDRO * Zyvox ->Enterococcus * Flagyl -> Bacteroides * DC Diflucan today == he remains on TPN; hence at risk for candidiasis observe OFF Diflucan . . Problems: Consultation Date/Type/Reason Admit Date/Time Jun 06, 2016 at 08:08 Initial Consult Date 06/07/16 Type of Consultation: ID Referring Provider: HOLLI LINDER MD Exam/Review of Systems Vital Signs Vitals Vital Signs Date Time Temp Pulse Resp B/P Pulse Ox O2 Delivery O2 Flow Rate FiO2 06/22/16 12:12 81 06/22/16 12:12 98.6 20 118/57 99 06/22/16 11:15 30 Intake and Output 06/21/16 06/21/16 06/22/16 14:59 22:59 06:59 Intake Total 1612 ml 1383 ml Output Total 15 ml 1210 ml 980 ml Balance -15 ml 402 ml 403 ml Results Result Diagram: 06/21/16 0600 06/22/16 0754 Results 24 hrs Laboratory Tests Test 06/21/16 17:57 06/21/16 22:33 06/22/16 00:34 06/22/16 05:51 Bedside Glucose 93 79 118 90 Test 06/22/16 07:54 06/22/16 08:49 Sodium Level 129 L Potassium Level 4.4 Chloride Level 103 Carbon Dioxide Level 20 L Anion Gap 10 Blood Urea Nitrogen 25 H Creatinine 1.31 H Glucose Level 95 Calcium Level 8.1 L Phosphorus Level 4.7 Magnesium Level 1.7 Bedside Glucose 90 Medications Medications Current Medications Naloxone HCl (Narcan) 0.4 mg Q3M PRN IV DECREASED REPIRATORY RATE; Start at 10:30 Ondansetron HCl (Zofran Inj) 4 mg Q6H PRN IV NAUSEA AND/OR VOMITING; Start 01/12 at 10:30 Nitroglycerin (Nitroglycerin (Sl Tab) 0.4 Mg) 1 tab Q5M PRN SL CHEST PAIN; Start 06/06/16 at 10:30 Acetaminophen (Tylenol Liquid) 650 mg Q6H PRN PO PAIN LEVEL 1-3 OR FEVER; Start 06/06/16 at 10:30 Morphine Sulfate (morphine) 2 mg Q4H PRN IV PAIN LEVEL 7-10 Last administered on 06/15/16t 00:22; Admin Dose 2 MG; Start 06/06/16 at 10:30 Docusate Sodium (Colace) 100 mg Q12H PRN PO CONSTIPATION; Start 06/06/16 at 10: 30 Magnesium Hydroxide (Milk Of Mag) 30 ml DAILY PRN PO CONSTIPATION; Start at 10:30 Bisacodyl (Dulcolax) 5 mg DAILY PRN PO CONSTIPATION; Start 06/06/16 at 10:30 Pantoprazole (Protonix Iv) 40 mg DAILY@06 IV Last administered on 06/22/16 05: 39; Admin Dose 40 MG; Start 06/07/16 at 06:00 Enoxaparin Sodium (Lovenox) 40 mg DAILY SC Last administered on 06/22/16 09:12 ; Admin Dose 40 MG; Start 06/07/16 at 09:00 Collagenase (Santyl) 1 applic DAILY TOP Last administered on 06/22/16 08:52; Admin Dose 1 APPLIC; Start 06/07/16 at 09:00 Collagenase (Santyl) 1 applic PRN PRN TOP WOUND CARE; Start 06/06/16 at 16:00 IV Flush (NS 10 ml) 10 ml PRN PRN IV IV PROTOCOL; Start 06/06/16 at 18:30 Ascorbic Acid (Vitamin C) 500 mg DAILY GTB Last administered on 06/22/16 08:50 ; Admin Dose 500 MG; Start 06/07/16 at 09:00 Aspirin (Aspirin) 325 mg DAILY GTB Last administered on 06/22/16 08:50; Admin Dose 325 MG; Start 06/07/16 at 09:00 Multivitamins (Thera-Plus) 5 ml DAILY GTB Last administered on 06/22/16 08:50 ; Admin Dose 5 ML; Start 06/07/16 at 09:00 Tamsulosin HCl (Flomax) 0.4 mg HS PO Last administered on 06/21/16 22:29; Admin Dose 0.4 MG; Start 06/07/16 at 21:00 Zinc Sulfate (Zinc Sulfate) 220 mg DAILY GTB Last administered on 06/22/16 08: 50; Admin Dose 220 MG; Start 06/07/16 at 09:00 Mupirocin (Bactroban) 1 applic BID TOP Last administered on 06/22/16 08:52; Admin Dose 1 APPLIC; Start 06/07/16 at 21:00 Metoclopramide HCl (Reglan) 10 mg Q6H PRN IV NAUSEA AND/OR VOMITING Last administered on 06/08/16 18:00; Admin Dose 10 MG; Start 06/08/16 at 09:30 Atenolol (Tenormin) 25 mg DAILY PO Last administered on 06/22/16 08:51; Admin Dose 25 MG; Start 06/08/16 at 11:30 Lorazepam 1 mg 1 mg Q6H PRN IV AGITATION/ANXIETY Last administered on 12:34; Admin Dose 1 MG; Start 06/09/16 at 13:30 Fluconazole 100 ml @ 100 mls/hr Q24H IVPB Last administered on 06/22/16 11:20 ; Admin Dose 100 MLS/HR; Start 06/10/16 at 09:00 Total Parenteral Nutrition (Tpn) 1,000 ml @ 40 mls/hr Q24H IV Last administered on 06/21/16 16:41; Admin Dose 40 MLS/HR; Start 06/12/16 at 18:00 Diagnostic Test (Pha) 1 ea 1 ea Q4 XX Last administered on 06/22/16 08:52; Admin Dose 1 EA; Start 06/12/16 at 17:00 Linezolid 300 ml @ 300 mls/hr Q12 IVPB Last administered on 06/22/16 08:51; Admin Dose 300 MLS/HR; Start 06/14/16 at 21:00 Colistimethate Sodium 75 mg/ Sodium Chloride 100 ml @ 200 mls/hr Q12 IVPB Last administered on 06/22/16 10:14; Admin Dose 200 MLS/HR; Start 06/14/16 at 21:00 Metronidazole (Flagyl 500 Mg (Pmx)) 100 ml @ 100 mls/hr Q6 IVPB Last administered on 06/22/16 05:39; Admin Dose 100 MLS/HR; Start 06/14/16 at 18:00 Furosemide 20 mg 20 mg DAILY@06 IV Last administered on 06/22/16 05:39; Admin Dose 20 MG; Start 06/19/16 at 06:00 Fat Emulsion Intravenous (Liposyn Ii 20%) 250 ml @ 10 mls/hr Q24H IV Last administered on 06/22/16 03:02; Admin Dose 21 MLS/HR; Start 06/21/16 at 14:00 LINDSAY LAGUNAS NP Jun 22, 2016 12:33
--- NOTE | 2016-06-22 16:54 | PDOCDIS ---
Discharge Instructions CONDITION Patient Condition: Stable HOME CARE INSTRUCTIONS: Special Diet: g tube feeding FOLLOW UP/APPOINTMENTS Appointments f/u dr holt [address] elda pelitez 1 wk HOLLI LINDER MD Jun 22, 2016 16:54
[2016-06-22] MEDS: TPN 1,000 ML IV SCH (17:41)
--- NOTE | 2016-06-22 18:19 | CONS ---
Date/Time of Note Date/Time of Note DATE: 06/22/16 TIME: 18:16 Assessment/Plan Assessment/Plan Chief Complaint/Hosp Course IMp: 1.CHF-systolic acute on chonic-reasonable volume status at this time 2.Resp failure s/p trach on vent 3.Cardiomyopathy-LVEF 25-30% 4.HTN-with episodes of borderline Hotn 5.PPM-s/p interrogation with proper function-episodes of SVT and short episode VT 06/09/16/good battery life 6.Leukocytosis 7.Tachycardia-PAF 8.Perforated viscous s/p IR drain placement 9. Renal insuff-? overdiuresis Recc: -Tele -Follow BP/Volume status closely and will hold lasix given development of renal insuff -Continue abx's and f/u cx data -Continue atenolol as tolerated/possible only -Continue asa/low dose lovenox -Continue abx's/f/u cx data -Follow IR drainage output -Palliative care following Problems: Consultation Date/Type/Reason Admit Date/Time Jun 06, 2016 at 08:08 Initial Consult Date 06/07/16 Type of Consultation: Cardiology Reason for Consultation AFL/CHF Referring Provider: HOLLI LINDER MD Exam/Review of Systems Vital Signs Vitals Vital Signs Date Time Temp Pulse Resp B/P Pulse Ox O2 Delivery O2 Flow Rate FiO2 06/22/16 17:15 94 27 98 30 06/22/16 16:02 98.0 137/65 Intake and Output 06/21/16 06/21/16 06/22/16 15:00 23:00 07:00 Intake Total 1612 ml 1383 ml Output Total 15 ml 1210 ml 980 ml Balance -15 ml 402 ml 403 ml Exam Review of Systems: CONSTITUTIONAL: No fevers, chills. PULMONARY: s/p TRach CARDIOVASCULAR: No obvious chest pain/palpitations GASTROINTESTINAL: No nausea/vomiting. GENITOURINARY: No hematuria/dysuria. MUSCULOSKELETAL: No obvious myagias/arthalgias. PSYCHIATRIC: The patient denies depression. NEUROLOGIC: encephalopathy Constitutional: alert Psych: no complaints Head: normocephalic ENMT: mucosa pink and moist Neck: jvd (9 cm water), supple Respiratory: diminished breath sounds Cardiovascular: regular rate and rhythm Gastrointestinal: non-tender, soft Musculoskeletal: muscle tone (normal) Extremities: edema (none) Neurological: other (No focal deficits) Results Result Diagram: 06/21/16 0600 06/22/16 0754 Results 24 hrs Laboratory Tests Test 06/21/16 22:33 06/22/16 00:34 06/22/16 05:51 06/22/16 07:54 Bedside Glucose 79 118 90 Sodium Level 129 L Potassium Level 4.4 Chloride Level 103 Carbon Dioxide Level 20 L Anion Gap 10 Blood Urea Nitrogen 25 H Creatinine 1.31 H Glucose Level 95 Calcium Level 8.1 L Phosphorus Level 4.7 Magnesium Level 1.7 Test 06/22/16 08:49 06/22/16 12:37 06/22/16 17:40 Bedside Glucose 90 110 92 Medications Medications Current Medications Naloxone HCl (Narcan) 0.4 mg Q3M PRN IV DECREASED REPIRATORY RATE; Start at 10:30 Ondansetron HCl (Zofran Inj) 4 mg Q6H PRN IV NAUSEA AND/OR VOMITING; Start 01/12 at 10:30 Nitroglycerin (Nitroglycerin (Sl Tab) 0.4 Mg) 1 tab Q5M PRN SL CHEST PAIN; Start 06/06/16 at 10:30 Acetaminophen (Tylenol Liquid) 650 mg Q6H PRN PO PAIN LEVEL 1-3 OR FEVER; Start 06/06/16 at 10:30 Morphine Sulfate (morphine) 2 mg Q4H PRN IV PAIN LEVEL 7-10 Last administered on 06/15/16 00:22; Admin Dose 2 MG; Start 06/06/16 at 10:30 Docusate Sodium (Colace) 100 mg Q12H PRN PO CONSTIPATION; Start 06/06/16 at 10: 30 Magnesium Hydroxide (Milk Of Mag) 30 ml DAILY PRN PO CONSTIPATION; Start at 10:30 Bisacodyl (Dulcolax) 5 mg DAILY PRN PO CONSTIPATION; Start 06/06/16 at 10:30 Pantoprazole (Protonix Iv) 40 mg DAILY@06 IV Last administered on 06/22/16 05: 39; Admin Dose 40 MG; Start 06/07/16 at 06:00 Enoxaparin Sodium (Lovenox) 40 mg DAILY SC Last administered on 06/22/16 09:12 ; Admin Dose 40 MG; Start 06/07/16 at 09:00 Collagenase (Santyl) 1 applic DAILY TOP Last administered on 06/22/16 08:52; Admin Dose 1 APPLIC; Start 06/07/16 at 09:00 Collagenase (Santyl) 1 applic PRN PRN TOP WOUND CARE; Start 06/06/16 at 16:00 IV Flush (NS 10 ml) 10 ml PRN PRN IV IV PROTOCOL; Start 06/06/16 at 18:30 Ascorbic Acid (Vitamin C) 500 mg DAILY GTB Last administered on 06/22/16 08:50 ; Admin Dose 500 MG; Start 06/07/16 at 09:00 Aspirin (Aspirin) 325 mg DAILY GTB Last administered on 06/22/16 08:50; Admin Dose 325 MG; Start 06/07/16 at 09:00 Multivitamins (Thera-Plus) 5 ml DAILY GTB Last administered on 06/22/16 08:50 ; Admin Dose 5 ML; Start 06/07/16 at 09:00 Tamsulosin HCl (Flomax) 0.4 mg HS PO Last administered on 06/21/16 22:29; Admin Dose 0.4 MG; Start 06/07/16 at 21:00 Zinc Sulfate (Zinc Sulfate) 220 mg DAILY GTB Last administered on 06/22/16 08: 50; Admin Dose 220 MG; Start 06/07/16 at 09:00 Mupirocin (Bactroban) 1 applic BID TOP Last administered on 06/22/16 08:52; Admin Dose 1 APPLIC; Start 06/07/16 at 21:00 Metoclopramide HCl (Reglan) 10 mg Q6H PRN IV NAUSEA AND/OR VOMITING Last administered on 06/08/16 18:00; Admin Dose 10 MG; Start 06/08/16 at 09:30 Atenolol (Tenormin) 25 mg DAILY PO Last administered on 06/22/16 08:51; Admin Dose 25 MG; Start 06/08/16 at 11:30 Lorazepam 1 mg 1 mg Q6H PRN IV AGITATION/ANXIETY Last administered on 12:34; Admin Dose 1 MG; Start 06/09/16 at 13:30 Total Parenteral Nutrition (Tpn) 1,000 ml @ 40 mls/hr Q24H IV Last administered on 06/21/16 16:41; Admin Dose 40 MLS/HR; Start 06/12/16 at 18:00 Diagnostic Test (Pha) 1 ea 1 ea Q4 XX Last administered on 06/22/16 17:41; Admin Dose 1 EA; Start 06/12/16 at 17:00 Linezolid 300 ml @ 300 mls/hr Q12 IVPB Last administered on 06/22/16 08:51; Admin Dose 300 MLS/HR; Start 06/14/16 at 21:00 Colistimethate Sodium 75 mg/ Sodium Chloride 100 ml @ 200 mls/hr Q12 IVPB Last administered on 06/22/16 10:14; Admin Dose 200 MLS/HR; Start 06/14/16 at 21:00 Metronidazole (Flagyl 500 Mg (Pmx)) 100 ml @ 100 mls/hr Q6 IVPB Last administered on 06/22/16 17:43; Admin Dose 100 MLS/HR; Start 06/14/16 at 18:00 Furosemide 20 mg 20 mg DAILY@06 IV Last administered on 06/22/16 05:39; Admin Dose 20 MG; Start 06/19/16 at 06:00 Fat Emulsion Intravenous (Liposyn Ii 20%) 250 ml @ 10 mls/hr Q24H IV Last administered on 06/22/16 16:02; Admin Dose 10 MLS/HR; Start 06/21/16 at 14:00 JAYA GORE Jun 22, 2016 18:19
--- NOTE | 2016-06-22 18:29 | PN ---
Date/Time of Note Date/Time of Note DATE: 06/22/16 TIME: 18:27 Assessment/Plan VTE Prophylaxis VTE Prophylaxis Intervention: other Lines/Catheters IV Catheter Type (from Nrs): PICC Line Central line still needed: Yes Urinary Cath still in place: Yes Reason Cath still needed: other (indicate) Assessment/Plan Chief Complaint/Hosp Course IMPRESSION: 1. Septic shock.better 2. Pneumonia. aspiration 3. Leukocytosis.better 4. Hematuria. better 5. Lactic acidosis. 6. Respiratory failure. 7. Gastrostomy tube placement. 8. Anemia. 9. Atrial fibrillation. 10. History of congestive heart failure with decreased ejection fraction. 11. vdrf 12. History of paroxysmal atrial fibrillation. 13. The patient now has decubitus. 14 uti 15 In the left anterior mid pelvis there is an approximate 6.3 x 3.2 x 4.7 cm air and fluid collection not definitely bowel suspicious for an abscess/ localized perforation. Diverticula in sigmoid and descending colon. Small amount of ascites. on peg feeding 15 polymirobial sepsis 16 pul edema BETTER 17 hypokalemia better 18 taper tpn plan antibiotic per id weaning per pulmonary and cardio surgery consult GT FEEDING tpn taper per id lasix snf Problems: Subjective 24 Hr Interval Summary Subjective hx not possible: other (awake and alert) Exam/Review of Systems Vital Signs Vitals Vital Signs Date Time Temp Pulse Resp B/P Pulse Ox O2 Delivery O2 Flow Rate FiO2 06/22/16 17:15 94 27 98 30 06/22/16 16:02 98.0 137/65 Intake and Output 06/21/16 06/21/16 06/22/16 15:00 23:00 07:00 Intake Total 1612 ml 1383 ml Output Total 15 ml 1210 ml 980 ml Balance -15 ml 402 ml 403 ml Exam Neck: supple Respiratory: clear to auscultation Cardiovascular: regular rate and rhythm Gastrointestinal: soft Musculoskeletal: nl extremities to inspection Extremities: normal pulses Results Result Diagram: 06/21/16 0600 06/22/16 0754 Results 24 hrs Laboratory Tests Test 06/21/16 22:33 06/22/16 00:34 06/22/16 05:51 06/22/16 07:54 Bedside Glucose 79 118 90 Sodium Level 129 L Potassium Level 4.4 Chloride Level 103 Carbon Dioxide Level 20 L Anion Gap 10 Blood Urea Nitrogen 25 H Creatinine 1.31 H Glucose Level 95 Calcium Level 8.1 L Phosphorus Level 4.7 Magnesium Level 1.7 Test 06/22/16 08:49 06/22/16 12:37 06/22/16 17:40 Bedside Glucose 90 110 92 Medications Medications Current Medications Naloxone HCl (Narcan) 0.4 mg Q3M PRN IV DECREASED REPIRATORY RATE; Start at 10:30 Ondansetron HCl (Zofran Inj) 4 mg Q6H PRN IV NAUSEA AND/OR VOMITING; Start 01/12 at 10:30 Nitroglycerin (Nitroglycerin (Sl Tab) 0.4 Mg) 1 tab Q5M PRN SL CHEST PAIN; Start 06/06/16 at 10:30 Acetaminophen (Tylenol Liquid) 650 mg Q6H PRN PO PAIN LEVEL 1-3 OR FEVER; Start 06/06/16 at 10:30 Morphine Sulfate (morphine) 2 mg Q4H PRN IV PAIN LEVEL 7-10 Last administered on 06/15/16 00:22; Admin Dose 2 MG; Start 06/06/16 at 10:30 Docusate Sodium (Colace) 100 mg Q12H PRN PO CONSTIPATION; Start 06/06/16 at 10: 30 Magnesium Hydroxide (Milk Of Mag) 30 ml DAILY PRN PO CONSTIPATION; Start at 10:30 Bisacodyl (Dulcolax) 5 mg DAILY PRN PO CONSTIPATION; Start 06/06/16 at 10:30 Pantoprazole (Protonix Iv) 40 mg DAILY@06 IV Last administered on 06/22/16 05: 39; Admin Dose 40 MG; Start 06/07/16 at 06:00 Enoxaparin Sodium (Lovenox) 40 mg DAILY SC Last administered on 06/22/16 09:12 ; Admin Dose 40 MG; Start 06/07/16 at 09:00 Collagenase (Santyl) 1 applic DAILY TOP Last administered on 06/22/16 08:52; Admin Dose 1 APPLIC; Start 06/07/16 at 09:00 Collagenase (Santyl) 1 applic PRN PRN TOP WOUND CARE; Start 06/06/16 at 16:00 IV Flush (NS 10 ml) 10 ml PRN PRN IV IV PROTOCOL; Start 06/06/16 at 18:30 Ascorbic Acid (Vitamin C) 500 mg DAILY GTB Last administered on 06/22/16 08:50 ; Admin Dose 500 MG; Start 06/07/16 at 09:00 Aspirin (Aspirin) 325 mg DAILY GTB Last administered on 06/22/16 08:50; Admin Dose 325 MG; Start 06/07/16 at 09:00 Multivitamins (Thera-Plus) 5 ml DAILY GTB Last administered on 06/22/16 08:50 ; Admin Dose 5 ML; Start 06/07/16 at 09:00 Tamsulosin HCl (Flomax) 0.4 mg HS PO Last administered on 06/21/16 22:29; Admin Dose 0.4 MG; Start 06/07/16 at 21:00 Zinc Sulfate (Zinc Sulfate) 220 mg DAILY GTB Last administered on 06/22/16 08: 50; Admin Dose 220 MG; Start 06/07/16 at 09:00 Mupirocin (Bactroban) 1 applic BID TOP Last administered on 06/22/16 08:52; Admin Dose 1 APPLIC; Start 06/07/16 at 21:00 Metoclopramide HCl (Reglan) 10 mg Q6H PRN IV NAUSEA AND/OR VOMITING Last administered on 06/08/16 18:00; Admin Dose 10 MG; Start 06/08/16 at 09:30 Atenolol (Tenormin) 25 mg DAILY PO Last administered on 06/22/16 08:51; Admin Dose 25 MG; Start 06/08/16 at 11:30 Lorazepam 1 mg 1 mg Q6H PRN IV AGITATION/ANXIETY Last administered on 12:34; Admin Dose 1 MG; Start 06/09/16 at 13:30 Total Parenteral Nutrition (Tpn) 1,000 ml @ 40 mls/hr Q24H IV Last administered on 06/21/16 16:41; Admin Dose 40 MLS/HR; Start 06/12/16 at 18:00 Diagnostic Test (Pha) 1 ea 1 ea Q4 XX Last administered on 06/22/16 17:41; Admin Dose 1 EA; Start 06/12/16 at 17:00 Linezolid 300 ml @ 300 mls/hr Q12 IVPB Last administered on 06/22/16 08:51; Admin Dose 300 MLS/HR; Start 06/14/16 at 21:00 Colistimethate Sodium 75 mg/ Sodium Chloride 100 ml @ 200 mls/hr Q12 IVPB Last administered on 06/22/16 10:14; Admin Dose 200 MLS/HR; Start 06/14/16 at 21:00 Metronidazole (Flagyl 500 Mg (Pmx)) 100 ml @ 100 mls/hr Q6 IVPB Last administered on 06/22/16 17:43; Admin Dose 100 MLS/HR; Start 06/14/16 at 18:00 Furosemide 20 mg 20 mg DAILY@06 IV Last administered on 06/22/16 05:39; Admin Dose 20 MG; Start 06/19/16 at 06:00; Status Future Hold Fat Emulsion Intravenous (Liposyn Ii 20%) 250 ml @ 10 mls/hr Q24H IV Last administered on 06/22/16 16:02; Admin Dose 10 MLS/HR; Start 06/21/16 at 14:00 HOLLI LINDER MD Jun 22, 2016 18:29
[2016-06-22] MEDS: TAMSULOSIN (SR) 0.4 MG CAP PO SCH (21:36)
[2016-06-23] VITALS (23 sets, daily range): BP systolic 89–108; BP diastolic 44–59; PULSE 72–82; RESP 19–61
[2016-06-23] MEDS: ACCU-CHEK XX SCH ×6 (00:34→21:14)
[2016-06-23] MEDS: TPN 1,000 ML IV SCH (01:34)
[2016-06-23] MEDS: ALBUTEROL 18 GM INHALER INH SCH ×6 (04:15→21:22)
[2016-06-23] MEDS: IPRATROPIUM (HFA) 12.9 GM INHALER INH SCH ×6 (04:15→21:22)
[2016-06-23] MEDS: PANTOPRAZOLE 40 MG INJ IV SCH (05:02)
[2016-06-23] MEDS: metroNIDAZOLE 500 MG/NS (PMX) 100 ML IVPB SCH ×3 (05:03→18:41)
[2016-06-23 07:44] LABS: CALCIUM 8.1 mg/dl (8.4-10.2); CREATININE 1.34 mg/dl (0.61-1.24); MAGNESIUM 1.8 mg/dl (1.7-2.5); PHOSPHORUS 3.2 mg/dl (2.5-4.9); POTASSIUM 4.8 mmol/L (3.5-5.1)
[2016-06-23] MEDS: COLLAGENASE 30 GM TUBE TOP SCH (09:00)
[2016-06-23] MEDS: MUPIROCIN 2% 22 GM OINT TOP SCH ×2 (09:00→22:07)
[2016-06-23] MEDS: ASPIRIN 325 MG TAB GTB SCH (10:20)
[2016-06-23] MEDS: ZINC SULFATE 220 MG CAP GTB SCH (10:20)
[2016-06-23] MEDS: ASCORBIC ACID 500 MG TAB GTB SCH (10:20)
[2016-06-23] MEDS: MULTIVITAMINS 5 ML CUP GTB SCH (10:20)
[2016-06-23] MEDS: LINEZOLID 600 MG/D5W (PMX) 300 ML IVPB SCH ×2 (10:21→22:07)
[2016-06-23] MEDS: ATENOLOL 25 MG TAB PO SCH (10:21)
[2016-06-23] MEDS: ENOXAPARIN 40 MG/0.4 ML SYG SC SCH (10:36)
--- NOTE | 2016-06-23 10:36 | CONS ---
Date/Time of Note Date/Time of Note DATE: 06/23/16 TIME: 10:34 Assessment/Plan Assessment/Plan Additional Assessment/Plan Ventilator settings; AC of 12, tidal volume 500, PEEP of 5, 30% FiO2. Next Assessment recommendations; 1. Patient admitted for sepsis due to sacral ulcers. 2. Chronic respiratory failure, status post tracheostomy, patient remains ventilator dependent. 3. Advanced dementia. 4. Chronic atrial ablation. 5. Recent bowel perforation, treated conservatively, with stable clinical status. Patient maintained on TPN. Continue current treatment. Prognosis is poor. Consultation Date/Type/Reason Admit Date/Time Jun 06, 2016 at 08:08 Initial Consult Date 06/07/16 Type of Consultation: Pulmonary Referring Provider: HOLLI LINDER MD 24 HR Interval Summary Free Text/Dictation Patient condition remains unchanged. Remains ventilator dependent. Remains essentially unresponsive. Has remained hemodynamically stable. General exam; elderly male, on ventilator via tracheostomy currently in no distress, unresponsive. Exam/Review of Systems Vital Signs Vitals Vital Signs Date Time Temp Pulse Resp B/P Pulse Ox O2 Delivery O2 Flow Rate FiO2 06/23/16 09:35 74 29 96 30 06/23/16 07:11 97.9 105/53 Intake and Output 06/22/16 06/22/16 06/23/16 15:00 23:00 07:00 Intake Total 400 ml 400 ml 560 ml Output Total 1200 ml 1050 ml Balance 400 ml -800 ml -490 ml Exam HEENT examination; supple neck, no JVD. No lymphadenopathy. Midline trachea. Patient is edentulous. Tracheostomy in place with clean insertion site. Patient has bilateral corneal opacities. Chest examination; diminished but clear breath sound. S1-S2 audible, no murmurs , irregular rhythm. Abdomen examination; soft, bowel sounds are absent. G-tube in place. Neck Extremity examination; no peripheral edema. Patient has contractures involving all 4 extremities. [employer] examination; patient remains unresponsive. Results Result Diagram: 06/21/16 0600 06/23/16 0625 Results 24 hrs Laboratory Tests Test 06/22/16 12:37 06/22/16 17:40 06/22/16 21:34 06/22/16 23:37 Bedside Glucose 110 92 82 86 Test 06/23/16 05:02 06/23/16 06:25 06/23/16 07:39 Bedside Glucose 93 98 Sodium Level 130 L Potassium Level 4.8 Chloride Level 105 Carbon Dioxide Level 20 L Anion Gap 10 Blood Urea Nitrogen 27 H Creatinine 1.34 H Glucose Level 96 Calcium Level 8.1 L Phosphorus Level 3.2 Magnesium Level 1.8 Medications Medications Current Medications Naloxone HCl (Narcan) 0.4 mg Q3M PRN IV DECREASED REPIRATORY RATE; Start at 10:30 Ondansetron HCl (Zofran Inj) 4 mg Q6H PRN IV NAUSEA AND/OR VOMITING; Start 01/12 at 10:30 Nitroglycerin (Nitroglycerin (Sl Tab) 0.4 Mg) 1 tab Q5M PRN SL CHEST PAIN; Start 06/06/16 at 10:30 Acetaminophen (Tylenol Liquid) 650 mg Q6H PRN PO PAIN LEVEL 1-3 OR FEVER; Start 06/06/16 at 10:30 Morphine Sulfate (morphine) 2 mg Q4H PRN IV PAIN LEVEL 7-10 Last administered on 06/15/16 00:22; Admin Dose 2 MG; Start 06/06/16 at 10:30 Docusate Sodium (Colace) 100 mg Q12H PRN PO CONSTIPATION; Start 06/06/16 at 10: 30 Magnesium Hydroxide (Milk Of Mag) 30 ml DAILY PRN PO CONSTIPATION; Start at 10:30 Bisacodyl (Dulcolax) 5 mg DAILY PRN PO CONSTIPATION; Start 06/06/16 at 10:30 Pantoprazole (Protonix Iv) 40 mg DAILY@06 IV Last administered on 06/23/16 05: 02; Admin Dose 40 MG; Start 06/07/16 at 06:00 Enoxaparin Sodium (Lovenox) 40 mg DAILY SC Last administered on 06/22/16 09:12 ; Admin Dose 40 MG; Start 06/07/16 at 09:00 Collagenase (Santyl) 1 applic DAILY TOP Last administered on 06/22/16 08:52; Admin Dose 1 APPLIC; Start 06/07/16 at 09:00 Collagenase (Santyl) 1 applic PRN PRN TOP WOUND CARE; Start 06/06/16 at 16:00 IV Flush (NS 10 ml) 10 ml PRN PRN IV IV PROTOCOL; Start 06/06/16 at 18:30 Ascorbic Acid (Vitamin C) 500 mg DAILY GTB Last administered on 06/22/16 08:50 ; Admin Dose 500 MG; Start 06/07/16 at 09:00 Aspirin (Aspirin) 325 mg DAILY GTB Last administered on 06/22/16 08:50; Admin Dose 325 MG; Start 06/07/16 at 09:00 Multivitamins (Thera-Plus) 5 ml DAILY GTB Last administered on 06/22/16 08:50 ; Admin Dose 5 ML; Start 06/07/16 at 09:00 Tamsulosin HCl (Flomax) 0.4 mg HS PO Last administered on 06/22/16 21:36; Admin Dose 0.4 MG; Start 06/07/16 at 21:00 Zinc Sulfate (Zinc Sulfate) 220 mg DAILY GTB Last administered on 06/22/16 08: 50; Admin Dose 220 MG; Start 06/07/16 at 09:00 Mupirocin (Bactroban) 1 applic BID TOP Last administered on 06/22/16 21:37; Admin Dose 1 APPLIC; Start 06/07/16 at 21:00 Metoclopramide HCl (Reglan) 10 mg Q6H PRN IV NAUSEA AND/OR VOMITING Last administered on 06/08/16 18:00; Admin Dose 10 MG; Start 06/08/16 at 09:30 Atenolol (Tenormin) 25 mg DAILY PO Last administered on 06/22/16 08:51; Admin Dose 25 MG; Start 06/08/16 at 11:30 Lorazepam 1 mg 1 mg Q6H PRN IV AGITATION/ANXIETY Last administered on 12:34; Admin Dose 1 MG; Start 06/09/16 at 13:30 Total Parenteral Nutrition (Tpn) 1,000 ml @ 40 mls/hr Q24H IV Last administered on 06/23/16 01:34; Admin Dose 40 MLS/HR; Start 06/12/16 at 18:00 Diagnostic Test (Pha) 1 ea 1 ea Q4 XX Last administered on 06/22/16 17:41; Admin Dose 1 EA; Start 06/12/16 at 17:00 Linezolid 300 ml @ 300 mls/hr Q12 IVPB Last administered on 06/22/16 21:37; Admin Dose 300 MLS/HR; Start 06/14/16 at 21:00 Colistimethate Sodium 75 mg/ Sodium Chloride 100 ml @ 200 mls/hr Q12 IVPB Last administered on 06/22/16 21:36; Admin Dose 200 MLS/HR; Start 06/14/16 at 21:00 Metronidazole (Flagyl 500 Mg (Pmx)) 100 ml @ 100 mls/hr Q6 IVPB Last administered on 06/23/16 05:03; Admin Dose 100 MLS/HR; Start 06/14/16 at 18:00 Furosemide 20 mg 20 mg DAILY@06 IV Last administered on 06/22/16 05:39; Admin Dose 20 MG; Start 06/19/16 at 06:00; Status Future Hold Fat Emulsion Intravenous (Liposyn Ii 20%) 250 ml @ 10 mls/hr Q24H IV Last administered on 06/22/16 16:02; Admin Dose 10 MLS/HR; Start 06/21/16 at 14:00 GERALDINE CUNNINGHAM Jun 23, 2016 10:36
[2016-06-23] MEDS: COLISTIMETHATE 75 MG in SOD CHLORIDE 0.9% 100 ML IVPB SCH ×2 (12:40→22:07)
--- NOTE | 2016-06-23 12:48 | PN ---
Date/Time of Note Date/Time of Note DATE: 06/23/16 TIME: 12:46 Assessment/Plan VTE Prophylaxis VTE Prophylaxis Intervention: SCD's Lines/Catheters IV Catheter Type (from Nrsg): PICC Line Central line still needed: Yes Urinary Cath still in place: Yes Reason Cath still needed: pres ulcer contaminated by urine Assessment/Plan Chief Complaint/Hosp Course 1. Septic shock.better 2. Pneumonia. aspiration 3. Leukocytosis.better 4. Hematuria. better 5. Lactic acidosis. 6. Respiratory failure. 7. Gastrostomy tube placement. 8. Anemia. 9. Atrial fibrillation. 10. History of congestive heart failure with decreased ejection fraction. 11. vdrf 12. History of paroxysmal atrial fibrillation. 13. The patient now has decubitus. 14 uti Problems: Assessment/Plan 1. D/c TPN, pt is tolerated tube feeding well Subjective 24 Hr Interval Summary Subjective hx not possible: pt non-verbal Exam/Review of Systems Vital Signs Vitals Vital Signs Date Time Temp Pulse Resp B/P Pulse Ox O2 Delivery O2 Flow Rate FiO2 06/23/16 12:04 83 31 98 30 06/23/16 11:47 99.6 108/45 Intake and Output 06/22/16 06/22/16 06/23/16 15:00 23:00 07:00 Intake Total 400 ml 400 ml 560 ml Output Total 1200 ml 1050 ml Balance 400 ml -800 ml -490 ml Exam Constitutional: alert Psych: no complaints Head: normocephalic Eyes: nl conjunctiva Neck: other (tracheostomy), supple Gastrointestinal: soft Genitourinary - Male: nl penis Musculoskeletal: nl extremities to inspection Results Result Diagram: 06/21/16 0600 06/23/16 0625 Results 24 hrs Laboratory Tests Test 06/22/16 17:40 06/22/16 21:34 06/22/16 23:37 06/23/16 05:02 Bedside Glucose 92 82 86 93 Test 06/23/16 06:25 06/23/16 07:39 Sodium Level 130 L Potassium Level 4.8 Chloride Level 105 Carbon Dioxide Level 20 L Anion Gap 10 Blood Urea Nitrogen 27 H Creatinine 1.34 H Glucose Level 96 Calcium Level 8.1 L Phosphorus Level 3.2 Magnesium Level 1.8 Bedside Glucose 98 Medications Medications Current Medications Naloxone HCl (Narcan) 0.4 mg Q3M PRN IV DECREASED REPIRATORY RATE; Start at 10:30 Ondansetron HCl (Zofran Inj) 4 mg Q6H PRN IV NAUSEA AND/OR VOMITING; Start 01/12 at 10:30 Nitroglycerin (Nitroglycerin (Sl Tab) 0.4 Mg) 1 tab Q5M PRN SL CHEST PAIN; Start 06/06/16 at 10:30 Acetaminophen (Tylenol Liquid) 650 mg Q6H PRN PO PAIN LEVEL 1-3 OR FEVER; Start 06/06/16 at 10:30 Morphine Sulfate (morphine) 2 mg Q4H PRN IV PAIN LEVEL 7-10 Last administered on 06/15/16 00:22; Admin Dose 2 MG; Start 06/06/16 at 10:30 Docusate Sodium (Colace) 100 mg Q12H PRN PO CONSTIPATION; Start 06/06/16 at 10: 30 Magnesium Hydroxide (Milk Of Mag) 30 ml DAILY PRN PO CONSTIPATION; Start at 10:30 Bisacodyl (Dulcolax) 5 mg DAILY PRN PO CONSTIPATION; Start 06/06/16 at 10:30 Pantoprazole (Protonix Iv) 40 mg DAILY@06 IV Last administered on 06/23/16 05: 02; Admin Dose 40 MG; Start 06/07/16 at 06:00 Enoxaparin Sodium (Lovenox) 40 mg DAILY SC Last administered on 06/23/16 10:36 ; Admin Dose 40 MG; Start 06/07/16 at 09:00 Collagenase (Santyl) 1 applic DAILY TOP Last administered on 06/23/16 09:00; Admin Dose 1 APPLIC; Start 06/07/16 at 09:00 Collagenase (Santyl) 1 applic PRN PRN TOP WOUND CARE; Start 06/06/16 at 16:00 IV Flush (NS 10 ml) 10 ml PRN PRN IV IV PROTOCOL; Start 06/06/16 at 18:30 Ascorbic Acid (Vitamin C) 500 mg DAILY GTB Last administered on 06/23/16 10:20 ; Admin Dose 500 MG; Start 06/07/16 at 09:00 Aspirin (Aspirin) 325 mg DAILY GTB Last administered on 06/23/16 10:20; Admin Dose 325 MG; Start 06/07/16 at 09:00 Multivitamins (Thera-Plus) 5 ml DAILY GTB Last administered on 06/23/16 10:20 ; Admin Dose 5 ML; Start 06/07/16 at 09:00 Tamsulosin HCl (Flomax) 0.4 mg HS PO Last administered on 06/22/16 21:36; Admin Dose 0.4 MG; Start 06/07/16 at 21:00 Zinc Sulfate (Zinc Sulfate) 220 mg DAILY GTB Last administered on 06/23/16 10: 20; Admin Dose 220 MG; Start 06/07/16 at 09:00 Mupirocin (Bactroban) 1 applic BID TOP Last administered on 06/23/16 09:00; Admin Dose 1 APPLIC; Start 06/07/16 at 21:00 Metoclopramide HCl (Reglan) 10 mg Q6H PRN IV NAUSEA AND/OR VOMITING Last administered on 06/08/16 18:00; Admin Dose 10 MG; Start 06/08/16 at 09:30 Atenolol (Tenormin) 25 mg DAILY PO Last administered on 06/23/16 10:21; Admin Dose 25 MG; Start 06/08/16 at 11:30 Lorazepam 1 mg 1 mg Q6H PRN IV AGITATION/ANXIETY Last administered on 12:34; Admin Dose 1 MG; Start 06/09/16 at 13:30 Total Parenteral Nutrition (Tpn) 1,000 ml @ 40 mls/hr Q24H IV Last administered on 06/23/16 01:34; Admin Dose 40 MLS/HR; Start 06/12/16 at 18:00 Diagnostic Test (Pha) 1 ea 1 ea Q4 XX Last administered on 06/23/16 09:00; Admin Dose 1 EA; Start 06/12/16 at 17:00 Linezolid 300 ml @ 300 mls/hr Q12 IVPB Last administered on 06/23/16 10:21; Admin Dose 300 MLS/HR; Start 06/14/16 at 21:00 Colistimethate Sodium 75 mg/ Sodium Chloride 100 ml @ 200 mls/hr Q12 IVPB Last administered on 06/22/16 21:36; Admin Dose 200 MLS/HR; Start 06/14/16 at 21:00 Metronidazole (Flagyl 500 Mg (Pmx)) 100 ml @ 100 mls/hr Q6 IVPB Last administered on 06/23/16 05:03; Admin Dose 100 MLS/HR; Start 06/14/16 at 18:00 Furosemide 20 mg 20 mg DAILY@06 IV Last administered on 06/22/16 05:39; Admin Dose 20 MG; Start 06/19/16 at 06:00; Status Future Hold Fat Emulsion Intravenous (Liposyn Ii 20%) 250 ml @ 10 mls/hr Q24H IV Last administered on 06/22/16 16:02; Admin Dose 10 MLS/HR; Start 06/21/16 at 14:00 WANG BELL Jun 23, 2016 12:48
[2016-06-23] MEDS: FAT EMULSION 20% 250 ML IV SCH (14:00)
--- NOTE | 2016-06-23 15:10 | CONS ---
Date/Time of Note Date/Time of Note DATE: 06/23/16 TIME: 15:07 Assessment/Plan Assessment/Plan Chief Complaint/Hosp Course IMp: 1.CHF-systolic acute on chonic-reasonable volume status at this time 2.Resp failure s/p trach on vent 3.Cardiomyopathy-LVEF 25-30% 4.HTN-with episodes of borderline Hotn 5.PPM-s/p interrogation with proper function-episodes of SVT and short episode VT 06/09/16/good battery life 6.Leukocytosis 7.Tachycardia-PAF rate controlled 8.Perforated viscous s/p IR drain placement 9. Renal insuff-? overdiuresis Recc: -Tele -Follow BP/Volume status closely and will continue hold lasix given development of renal insuff -Continue abx's and f/u cx data -Continue atenolol as tolerated/possible only -Continue asa/low dose lovenox -Continue abx's/f/u cx data -Follow IR drainage output -Palliative care following Problems: Consultation Date/Type/Reason Admit Date/Time Jun 06, 2016 at 08:08 Initial Consult Date 06/07/16 Type of Consultation: Cardiology Reason for Consultation CHF/cardiomyopathy Referring Provider: HOLLI LINDER MD Exam/Review of Systems Vital Signs Vitals Vital Signs Date Time Temp Pulse Resp B/P Pulse Ox O2 Delivery O2 Flow Rate FiO2 06/23/16 13:25 82 06/23/16 12:04 31 98 30 06/23/16 11:47 99.6 108/45 Intake and Output 06/22/16 06/22/16 06/23/16 15:00 23:00 07:00 Intake Total 400 ml 400 ml 560 ml Output Total 1200 ml 1050 ml Balance 400 ml -800 ml -490 ml Exam Review of Systems: CONSTITUTIONAL: No fevers, chills. PULMONARY: s/p trach CARDIOVASCULAR: No chest pain/palpitations GASTROINTESTINAL: No nausea/vomiting. GENITOURINARY: No hematuria/dysuria. MUSCULOSKELETAL: No myagias/arthalgias. PSYCHIATRIC: The patient denies depression. NEUROLOGIC: generalized weakness Constitutional: other (encephalopathic) Psych: no complaints Head: normocephalic ENMT: mucosa pink and moist Neck: jvd (9 cm water), supple Respiratory: diminished breath sounds (at bases/B) Cardiovascular: regular rate and rhythm Gastrointestinal: non-tender, soft Musculoskeletal: muscle tone (normal) Extremities: edema (none) Neurological: confused, lethargic Results Result Diagram: 06/21/16 0600 06/23/16 0625 Results 24 hrs Laboratory Tests Test 06/22/16 17:40 06/22/16 21:34 06/22/16 23:37 06/23/16 05:02 Bedside Glucose 92 82 86 93 Test 06/23/16 06:25 06/23/16 07:39 06/23/16 12:56 Sodium Level 130 L Potassium Level 4.8 Chloride Level 105 Carbon Dioxide Level 20 L Anion Gap 10 Blood Urea Nitrogen 27 H Creatinine 1.34 H Glucose Level 96 Calcium Level 8.1 L Phosphorus Level 3.2 Magnesium Level 1.8 Bedside Glucose 98 94 Medications Medications Current Medications Naloxone HCl (Narcan) 0.4 mg Q3M PRN IV DECREASED REPIRATORY RATE; Start at 10:30 Ondansetron HCl (Zofran Inj) 4 mg Q6H PRN IV NAUSEA AND/OR VOMITING; Start 01/12 at 10:30 Nitroglycerin (Nitroglycerin (Sl Tab) 0.4 Mg) 1 tab Q5M PRN SL CHEST PAIN; Start 06/06/16 at 10:30 Acetaminophen (Tylenol Liquid) 650 mg Q6H PRN PO PAIN LEVEL 1-3 OR FEVER; Start 06/06/16 at 10:30 Morphine Sulfate (morphine) 2 mg Q4H PRN IV PAIN LEVEL 7-10 Last administered on 06/15/16 00:22; Admin Dose 2 MG; Start 06/06/16 at 10:30 Docusate Sodium (Colace) 100 mg Q12H PRN PO CONSTIPATION; Start 06/06/16 at 10: 30 Magnesium Hydroxide (Milk Of Mag) 30 ml DAILY PRN PO CONSTIPATION; Start at 10:30 Bisacodyl (Dulcolax) 5 mg DAILY PRN PO CONSTIPATION; Start 06/06/16 at 10:30 Pantoprazole (Protonix Iv) 40 mg DAILY@06 IV Last administered on 06/23/16 05: 02; Admin Dose 40 MG; Start 06/07/16 at 06:00 Enoxaparin Sodium (Lovenox) 40 mg DAILY SC Last administered on 06/23/16 10:36 ; Admin Dose 40 MG; Start 06/07/16 at 09:00 Collagenase (Santyl) 1 applic DAILY TOP Last administered on 06/23/16 09:00; Admin Dose 1 APPLIC; Start 06/07/16 at 09:00 Collagenase (Santyl) 1 applic PRN PRN TOP WOUND CARE; Start 06/06/16 at 16:00 IV Flush (NS 10 ml) 10 ml PRN PRN IV IV PROTOCOL; Start 06/06/16 at 18:30 Ascorbic Acid (Vitamin C) 500 mg DAILY GTB Last administered on 06/23/16 10:20 ; Admin Dose 500 MG; Start 06/07/16 at 09:00 Aspirin (Aspirin) 325 mg DAILY GTB Last administered on 06/23/16 10:20; Admin Dose 325 MG; Start 06/07/16 at 09:00 Multivitamins (Thera-Plus) 5 ml DAILY GTB Last administered on 06/23/16 10:20 ; Admin Dose 5 ML; Start 06/07/16 at 09:00 Tamsulosin HCl (Flomax) 0.4 mg HS PO Last administered on 06/22/16 21:36; Admin Dose 0.4 MG; Start 06/07/16 at 21:00 Zinc Sulfate (Zinc Sulfate) 220 mg DAILY GTB Last administered on 06/23/16 10: 20; Admin Dose 220 MG; Start 06/07/16 at 09:00 Mupirocin (Bactroban) 1 applic BID TOP Last administered on 06/23/16 09:00; Admin Dose 1 APPLIC; Start 06/07/16 at 21:00 Metoclopramide HCl (Reglan) 10 mg Q6H PRN IV NAUSEA AND/OR VOMITING Last administered on 06/08/16 18:00; Admin Dose 10 MG; Start 06/08/16 at 09:30 Atenolol (Tenormin) 25 mg DAILY PO Last administered on 06/23/16 10:21; Admin Dose 25 MG; Start 06/08/16 at 11:30 Lorazepam (Ativan) 1 mg Q6H PRN IV AGITATION/ANXIETY Last administered on 12:34; Admin Dose 1 MG; Start 06/09/16 at 13:30 Diagnostic Test (Pha) 1 ea 1 ea Q4 XX Last administered on 06/23/16 13:00; Admin Dose 1 EA; Start 06/12/16 at 17:00 Linezolid 300 ml @ 300 mls/hr Q12 IVPB Last administered on 06/23/16 10:21; Admin Dose 300 MLS/HR; Start 06/14/16 at 21:00 Colistimethate Sodium 75 mg/ Sodium Chloride 100 ml @ 200 mls/hr Q12 IVPB Last administered on 06/23/16 12:40; Admin Dose 200 MLS/HR; Start 06/14/16 at 21:00 Metronidazole (Flagyl 500 Mg (Pmx)) 100 ml @ 100 mls/hr Q6 IVPB Last administered on 06/23/16 14:46; Admin Dose 100 MLS/HR; Start 06/14/16 at 18:00 Furosemide (Lasix) 20 mg DAILY@06 IV Last administered on 06/22/16 05:39; Admin Dose 20 MG; Start 06/19/16 at 06:00; Status Future Hold JAYA GORE Jun 23, 2016 15:10
--- NOTE | 2016-06-23 17:01 | PN ---
Date/Time of Note Date/Time of Note DATE: 06/23/16 TIME: 16:59 Assessment/Plan Lines/Catheters IV Catheter Type (from [facility]): PICC Line Alfonso in Place (from [facility]): Yes Assessment/Plan Chief Complaint/Hosp Course 1. Contained perforated viscous s/p IR drain 06/11. Cx noted. Leukocytosis resolved. Tube feeds started. Bowel function. Drain dcd -abx per ID 2. Pneumonia -pulmonary toilette -abx 3. Sepsis, significant leukocytosis. Improving -abx -as above 4. Sacral decubitus ulcer -off load -nutrition optimization -vit c -local care 5. Chronic AFib -rate control -optimize electrolytes -tx infections 6. Anemia -monitor 7. Hypoalbuminemia -eventual nutritional optimization 8. CHF -judicious fluid management -cardiac optimization Thank you, Problems: Subjective 24 Hr Interval Summary No f/c. No cough. No sz. No rashes. No bloating. No vomiting. No bleeding. Leukocytosis resolved. TFs. Bowel function Exam/Review of Systems Vital Signs Vitals Vital Signs Date Time Temp Pulse Resp B/P Pulse Ox O2 Delivery O2 Flow Rate FiO2 06/23/16 16:28 74 06/23/16 15:09 98.9 30 89/48 97 06/23/16 15:00 30 Intake and Output 06/22/16 06/22/16 06/23/16 15:00 23:00 07:00 Intake Total 400 ml 400 ml 560 ml Output Total 1200 ml 1050 ml Balance 400 ml -800 ml -490 ml Exam Free Text/Dictation Constitutional: No alert, No distress, No oriented Psych: confusion, No anxiety Head: atraumatic, normocephalic Eyes: PERRL, nl conjunctiva, No icteric ENMT: mucosa pink and moist, nl external ears & nose, nl lips & teeth Neck: jvd (min), non-tender Respiratory: No congested cough, No labored breathing Cardiovascular: No edema, No regular rate and rhythm Gastrointestinal: soft, drain Left side, PEG No distended, No firm, No rebound or guarding Musculoskeletal: No joint tenderness, No nl gait and stance Extremities: No calf tenderness, No cyanosis Neurological: No nl mental status, No nl speech, No nl strength Skin: nl turgor, rash or lesions (Sacral and LE decubitus ulcerations), No diaphoresis Lymph: nl lymph nodes Results Result Diagram: 06/21/16 0600 06/23/16 0625 DAREK AHMADI MD Jun 23, 2016 17:01
--- NOTE | 2016-06-23 17:38 | CONS ---
Date/Time of Note Date/Time of Note DATE: 06/23/16 TIME: 17:36 Assessment/Plan Assessment/Plan Chief Complaint/Hosp Course ID PROGRESS NOTE TOTAL ABX DAY #13=> Colistin #10, Zyvox, Flagyl 24H INTERVAL SUMMARY * 85 yo w/Dementia, encephalopathy, noncommunicative, trach->Vent, peg * Pt is on TPN * DC planning in process PHYSICAL EXAMINATION: GENERAL: VSS, NADm, no fevers HEENT: Unremarkable, missing teeth NECK: Supple, trach-> Vent CHEST: Equal chest rise bilaterally, without dyspnea on observation HEART: Pulse RRR ABDOMEN: Soft, peg EXTREMITIES: Warm, PICC LUEXT w/TPN SKIN: Warm, dry SKIN: Decubs -- see photos ID ASSESSMENT: 85 yo M admitted with: 1. s/p Sepsis with persistent leukocytosis = RESOLVED * (+)MRSA septicemia w/BCx(+) MRSA on admission * Repeat BCx (-) 2. Perforated viscus, POD #11=>s/p 06/11/16 CT guided ABD abscess drainage catheter placement * Abdominal fluid culture growing gram-negative rods, Klebsiella, enterococcus species Leuconostoc. * Late posted Cx result ANAEROBIC CULTURE Final Organism 1 BACTEROIDES FRAGILIS * FUNGAL WET MOUNT Final 10% POTASSIUM HYDROXIDE NO FUNGAL ELEMENTS OR HYPHAE SEEN 3. Respiratory failure= chronic VDRF 4. HCAP - suspect aspiration Pneumonia. * Chest x-ray revealed stable small bilateral pleural effusions with increased CHF. 5. Dysphagia. 6. Enterococcal urinary tract infection. 7. Candidiasis oral, skin folds INVASIVES: * Trach, PEG, FC, Intra-ABD drain, PICC LUEXT ABX ALLERGIES: KNDA CURRENT ABX: DAY #13=> Colistin #10, Zyvox, Flagyl Diflucan -> DC 06/12 ID RECOMMENDATIONS: 1. Continue current ABX REQUIRES at least 14 days ABX for (+)Blood Cx * Start ABX de-escalation: Today will DC Diflucan * Colistin -> CRKP - MDRO * Zyvox ->Enterococcus * Flagyl -> Bacteroides * DC Diflucan today == he remains on TPN; hence at risk for candidiasis observe OFF Diflucan . . Problems: Consultation Date/Type/Reason Admit Date/Time Jun 06, 2016 at 08:08 Initial Consult Date 06/07/16 Type of Consultation: ID Referring Provider: HOLLI LINDER MD Exam/Review of Systems Vital Signs Vitals Vital Signs Date Time Temp Pulse Resp B/P Pulse Ox O2 Delivery O2 Flow Rate FiO2 06/23/16 16:28 74 06/23/16 15:09 98.9 30 89/48 97 06/23/16 15:00 30 Intake and Output 06/22/16 06/22/16 06/23/16 15:00 23:00 07:00 Intake Total 400 ml 400 ml 560 ml Output Total 1200 ml 1050 ml Balance 400 ml -800 ml -490 ml Results Result Diagram: 06/21/16 0600 06/23/16 0625 Results 24 hrs Laboratory Tests Test 06/22/16 17:40 06/22/16 21:34 06/22/16 23:37 06/23/16 05:02 Bedside Glucose 92 82 86 93 Test 06/23/16 06:25 06/23/16 07:39 06/23/16 12:56 06/23/16 17:18 Sodium Level 130 L Potassium Level 4.8 Chloride Level 105 Carbon Dioxide Level 20 L Anion Gap 10 Blood Urea Nitrogen 27 H Creatinine 1.34 H Glucose Level 96 Calcium Level 8.1 L Phosphorus Level 3.2 Magnesium Level 1.8 Bedside Glucose 98 94 83 Medications Medications Current Medications Naloxone HCl (Narcan) 0.4 mg Q3M PRN IV DECREASED REPIRATORY RATE; Start at 10:30 Ondansetron HCl (Zofran Inj) 4 mg Q6H PRN IV NAUSEA AND/OR VOMITING; Start 01/12 at 10:30 Nitroglycerin (Nitroglycerin (Sl Tab) 0.4 Mg) 1 tab Q5M PRN SL CHEST PAIN; Start 06/06/16 at 10:30 Acetaminophen (Tylenol Liquid) 650 mg Q6H PRN PO PAIN LEVEL 1-3 OR FEVER; Start 06/06/16 at 10:30 Morphine Sulfate (morphine) 2 mg Q4H PRN IV PAIN LEVEL 7-10 Last administered on 06/15/16t 00:22; Admin Dose 2 MG; Start 06/06/16 at 10:30 Docusate Sodium (Colace) 100 mg Q12H PRN PO CONSTIPATION; Start 06/06/16 at 10: 30 Magnesium Hydroxide (Milk Of Mag) 30 ml DAILY PRN PO CONSTIPATION; Start at 10:30 Bisacodyl (Dulcolax) 5 mg DAILY PRN PO CONSTIPATION; Start 06/06/16 at 10:30 Pantoprazole (Protonix Iv) 40 mg DAILY@06 IV Last administered on 06/23/16 05: 02; Admin Dose 40 MG; Start 06/07/16 at 06:00 Enoxaparin Sodium (Lovenox) 40 mg DAILY SC Last administered on 06/23/16 10:36 ; Admin Dose 40 MG; Start 06/07/16 at 09:00 Collagenase (Santyl) 1 applic DAILY TOP Last administered on 06/23/16 09:00; Admin Dose 1 APPLIC; Start 06/07/16 at 09:00 Collagenase (Santyl) 1 applic PRN PRN TOP WOUND CARE; Start 06/06/16 at 16:00 IV Flush (NS 10 ml) 10 ml PRN PRN IV IV PROTOCOL; Start 06/06/16 at 18:30 Ascorbic Acid (Vitamin C) 500 mg DAILY GTB Last administered on 06/23/16 10:20 ; Admin Dose 500 MG; Start 06/07/16 at 09:00 Aspirin (Aspirin) 325 mg DAILY GTB Last administered on 06/23/16 10:20; Admin Dose 325 MG; Start 06/07/16 at 09:00 Multivitamins (Thera-Plus) 5 ml DAILY GTB Last administered on 06/23/16 10:20 ; Admin Dose 5 ML; Start 06/07/16 at 09:00 Tamsulosin HCl (Flomax) 0.4 mg HS PO Last administered on 06/22/16 21:36; Admin Dose 0.4 MG; Start 06/07/16 at 21:00 Zinc Sulfate (Zinc Sulfate) 220 mg DAILY GTB Last administered on 06/23/16 10: 20; Admin Dose 220 MG; Start 06/07/16 at 09:00 Mupirocin (Bactroban) 1 applic BID TOP Last administered on 06/23/16 09:00; Admin Dose 1 APPLIC; Start 06/07/16 at 21:00 Metoclopramide HCl (Reglan) 10 mg Q6H PRN IV NAUSEA AND/OR VOMITING Last administered on 06/08/16 18:00; Admin Dose 10 MG; Start 06/08/16 at 09:30 Atenolol (Tenormin) 25 mg DAILY PO Last administered on 06/23/16 10:21; Admin Dose 25 MG; Start 06/08/16 at 11:30 Lorazepam (Ativan) 1 mg Q6H PRN IV AGITATION/ANXIETY Last administered on 12:34; Admin Dose 1 MG; Start 06/09/16 at 13:30 Diagnostic Test (Pha) 1 ea 1 ea Q4 XX Last administered on 06/23/16 17:19; Admin Dose 1 EA; Start 06/12/16 at 17:00 Linezolid 300 ml @ 300 mls/hr Q12 IVPB Last administered on 06/23/16 10:21; Admin Dose 300 MLS/HR; Start 06/14/16 at 21:00 Colistimethate Sodium 75 mg/ Sodium Chloride 100 ml @ 200 mls/hr Q12 IVPB Last administered on 06/23/16 12:40; Admin Dose 200 MLS/HR; Start 06/14/16 at 21:00 Metronidazole (Flagyl 500 Mg (Pmx)) 100 ml @ 100 mls/hr Q6 IVPB Last administered on 06/23/16 14:46; Admin Dose 100 MLS/HR; Start 06/14/16 at 18:00 Furosemide (Lasix) 20 mg DAILY@06 IV Last administered on 06/22/16 05:39; Admin Dose 20 MG; Start 06/19/16 at 06:00; Status Future Hold LINDSAY LAGUNAS NP Jun 23, 2016 17:38
[2016-06-23] MEDS: TAMSULOSIN (SR) 0.4 MG CAP PO SCH (22:07)
[2016-06-24] VITALS (24 sets, daily range): BP systolic 80–117; BP diastolic 46–63; PULSE 77–94; RESP 17–36
[2016-06-24] MEDS: IPRATROPIUM (HFA) 12.9 GM INHALER INH SCH ×6 (00:48→21:34)
[2016-06-24] MEDS: ALBUTEROL 18 GM INHALER INH SCH ×6 (00:48→21:34)
[2016-06-24] MEDS: metroNIDAZOLE 500 MG/NS (PMX) 100 ML IVPB SCH ×4 (01:16→17:27)
[2016-06-24] MEDS ORDERED: SOD CHLORIDE 0.9% 500 ML IV ONE ×2 (01:30→01:41)
[2016-06-24] MEDS: ACCU-CHEK XX SCH ×6 (01:33→21:58)
[2016-06-24] MEDS: PANTOPRAZOLE 40 MG INJ IV SCH (05:33)
[2016-06-24] MEDS: ATENOLOL 25 MG TAB PO SCH (08:05)
[2016-06-24] MEDS: MULTIVITAMINS 5 ML CUP GTB SCH (08:33)
[2016-06-24] MEDS: MUPIROCIN 2% 22 GM OINT TOP SCH ×2 (08:33→21:58)
[2016-06-24] MEDS: ASPIRIN 325 MG TAB GTB SCH (08:33)
[2016-06-24] MEDS: LINEZOLID 600 MG/D5W (PMX) 300 ML IVPB SCH ×2 (08:33→21:58)
[2016-06-24] MEDS: ASCORBIC ACID 500 MG TAB GTB SCH (08:33)
[2016-06-24] MEDS: ZINC SULFATE 220 MG CAP GTB SCH (08:33)
[2016-06-24] MEDS: COLLAGENASE 30 GM TUBE TOP SCH (08:34)
[2016-06-24] MEDS: ENOXAPARIN 40 MG/0.4 ML SYG SC SCH (08:45)
[2016-06-24] MEDS: COLISTIMETHATE 75 MG in SOD CHLORIDE 0.9% 100 ML IVPB SCH ×2 (09:28→21:58)
[2016-06-24] MEDS ORDERED: SOD CHLORIDE 0.9% 250 ML IV ONE (10:00)
--- NOTE | 2016-06-24 12:07 | CONS ---
Date/Time of Note Date/Time of Note DATE: 06/24/16 TIME: 12:05 Assessment/Plan Assessment/Plan Additional Assessment/Plan Ventilator settings; AC of 12, tidal volume 500, PEEP of 5, 30% FiO2. Assessment recommendations; 1. Patient admitted for severe sepsis due to sacral decubitus ulcers. 2. 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 3. Atrial fibrillation. 4. Bowel perforation, treated conservatively patient maintained on TPN. Currently no evidence of any clinical decompensation. Continue current treatment. Prognosis is poor. Consultation Date/Type/Reason Admit Date/Time Jun 06, 2016 at 08:08 Initial Consult Date 06/07/16 Type of Consultation: Pulmonary Referring Provider: HOLLI LINDER MD 24 HR Interval Summary Free Text/Dictation Patient condition remains stable. However remains completely unresponsive due to advanced dementia. Remains ventilator dependent. Has remained hemodynamically stable. General exam; elderly male, on ventilator via tracheostomy unresponsive. Currently in no distress. Exam/Review of Systems Vital Signs Vitals Vital Signs Date Time Temp Pulse Resp B/P Pulse Ox O2 Delivery O2 Flow Rate FiO2 06/24/16 11:53 83 32 100 50 06/24/16 11:38 97.9 109/51 Intake and Output 06/23/16 06/23/16 06/24/16 15:00 23:00 07:00 Intake Total 400 ml 100 ml 1200 ml Output Total 350 ml 600 ml Balance 400 ml -250 ml 600 ml Exam HEENT exam; supple neck, patient bilateral corneal opacities. Patient is edentulous. Tracheostomy in place with clean insertion site. No neck masses, no thyromegaly. Chest examination; diminished breath sound bilaterally without any added sound. S1-S2 audible, irregular rhythm. No murmurs. Abdomen examination; soft, no organomegaly, G-tube in place. Bowel sounds audible. Extremity exam; no peripheral edema. Patient has contractures involving all 4 extremities. FLEXBOARD OPERATOR examination; patient remains unresponsive. Results Result Diagram: 06/21/16 0600 06/23/16 0625 Results 24 hrs Laboratory Tests Test 06/23/16 12:56 06/23/16 17:18 06/23/16 20:42 06/24/16 00:34 Bedside Glucose 94 83 93 88 Test 06/24/16 05:36 06/24/16 08:31 Bedside Glucose 79 78 Medications Medications Current Medications Naloxone HCl (Narcan) 0.4 mg Q3M PRN IV DECREASED REPIRATORY RATE; Start at 10:30 Ondansetron HCl (Zofran Inj) 4 mg Q6H PRN IV NAUSEA AND/OR VOMITING; Start 01/12 at 10:30 Nitroglycerin (Nitroglycerin (Sl Tab) 0.4 Mg) 1 tab Q5M PRN SL CHEST PAIN; Start 06/06/16 at 10:30 Acetaminophen (Tylenol Liquid) 650 mg Q6H PRN PO PAIN LEVEL 1-3 OR FEVER; Start 06/06/16 at 10:30 Morphine Sulfate (morphine) 2 mg Q4H PRN IV PAIN LEVEL 7-10 Last administered on 06/15/16 00:22; Admin Dose 2 MG; Start 06/06/16 at 10:30 Docusate Sodium (Colace) 100 mg Q12H PRN PO CONSTIPATION; Start 06/06/16 at 10: 30 Magnesium Hydroxide (Milk Of Mag) 30 ml DAILY PRN PO CONSTIPATION; Start at 10:30 Bisacodyl (Dulcolax) 5 mg DAILY PRN PO CONSTIPATION; Start 06/06/16 at 10:30 Pantoprazole (Protonix Iv) 40 mg DAILY@06 IV Last administered on 06/24/16 05: 33; Admin Dose 40 MG; Start 06/07/16 at 06:00 Enoxaparin Sodium (Lovenox) 40 mg DAILY SC Last administered on 06/24/16 08:45 ; Admin Dose 40 MG; Start 06/07/16 at 09:00 Collagenase (Santyl) 1 applic DAILY TOP Last administered on 06/24/16 08:34; Admin Dose 1 APPLIC; Start 06/07/16 at 09:00 Collagenase (Santyl) 1 applic PRN PRN TOP WOUND CARE; Start 06/06/16 at 16:00 IV Flush (NS 10 ml) 10 ml PRN PRN IV IV PROTOCOL; Start 06/06/16 at 18:30 Ascorbic Acid (Vitamin C) 500 mg DAILY GTB Last administered on 06/24/16 08:33 ; Admin Dose 500 MG; Start 06/07/16 at 09:00 Aspirin (Aspirin) 325 mg DAILY GTB Last administered on 06/24/16 08:33; Admin Dose 325 MG; Start 06/07/16 at 09:00 Multivitamins (Thera-Plus) 5 ml DAILY GTB Last administered on 06/24/16 08:33 ; Admin Dose 5 ML; Start 06/07/16 at 09:00 Tamsulosin HCl (Flomax) 0.4 mg HS PO Last administered on 06/23/16 22:07; Admin Dose 0.4 MG; Start 06/07/16 at 21:00 Zinc Sulfate (Zinc Sulfate) 220 mg DAILY GTB Last administered on 06/24/16 08: 33; Admin Dose 220 MG; Start 06/07/16 at 09:00 Mupirocin (Bactroban) 1 applic BID TOP Last administered on 06/24/16 08:33; Admin Dose 1 APPLIC; Start 06/07/16 at 21:00 Metoclopramide HCl (Reglan) 10 mg Q6H PRN IV NAUSEA AND/OR VOMITING Last administered on 06/08/16 18:00; Admin Dose 10 MG; Start 06/08/16 at 09:30 Lorazepam (Ativan) 1 mg Q6H PRN IV AGITATION/ANXIETY Last administered on 12:34; Admin Dose 1 MG; Start 06/09/16 at 13:30 Diagnostic Test (Pha) 1 ea 1 ea Q4 XX Last administered on 06/24/16 08:34; Admin Dose 1 EA; Start 06/12/16 at 17:00 Linezolid 300 ml @ 300 mls/hr Q12 IVPB Last administered on 06/24/16 08:33; Admin Dose 300 MLS/HR; Start 06/14/16 at 21:00 Colistimethate Sodium 75 mg/ Sodium Chloride 100 ml @ 200 mls/hr Q12 IVPB Last administered on 06/24/16 09:28; Admin Dose 200 MLS/HR; Start 06/14/16 at 21:00 Metronidazole (Flagyl 500 Mg (Pmx)) 100 ml @ 100 mls/hr Q6 IVPB Last administered on 06/24/16 11:27; Admin Dose 100 MLS/HR; Start 06/14/16 at 18:00 Furosemide (Lasix) 20 mg DAILY@06 IV Last administered on 06/22/16 05:39; Admin Dose 20 MG; Start 06/19/16 at 06:00; Status Future Hold Atenolol (Tenormin) 12.5 mg DAILY PO ; Start 06/25/16 at 09:00 GERALDINE CUNNINGHAM Jun 24, 2016 12:07
--- NOTE | 2016-06-24 13:03 | PN ---
Date/Time of Note Date/Time of Note DATE: 06/24/16 TIME: 13:00 Assessment/Plan VTE Prophylaxis VTE Prophylaxis Intervention: SCD's Lines/Catheters IV Catheter Type (from Nrsg): PICC Line Central line still needed: Yes Urinary Cath still in place: Yes Reason Cath still needed: urinary retention Assessment/Plan Chief Complaint/Hosp Course 1. Septic resolved 2. Pneumonia. aspiration, resolved 3. tracheostomy 4, GT 5. decubitus Problems: Assessment/Plan 1, Continue telemetry 2. Increase tube feeding to 35 and increase with goal 55 3. Midodrine 5 mg BID via GT Subjective 24 Hr Interval Summary Subjective hx not possible: pt non-verbal Exam/Review of Systems Vital Signs Vitals Vital Signs Date Time Temp Pulse Resp B/P Pulse Ox O2 Delivery O2 Flow Rate FiO2 06/24/16 12:16 83 06/24/16 11:53 32 100 50 06/24/16 11:38 97.9 109/51 Intake and Output 06/23/16 06/23/16 06/24/16 15:00 23:00 07:00 Intake Total 400 ml 100 ml 1200 ml Output Total 350 ml 600 ml Balance 400 ml -250 ml 600 ml Exam Constitutional: alert, oriented Eyes: nl conjunctiva Neck: other (tracheostomy), supple Respiratory: clear to auscultation, diminished breath sounds Cardiovascular: regular rate and rhythm Results Result Diagram: 06/21/16 0600 06/23/16 0625 Results 24 hrs Laboratory Tests Test 06/23/16 17:18 06/23/16 20:42 06/24/16 00:34 06/24/16 05:36 Bedside Glucose 83 93 88 79 Test 06/24/16 08:31 06/24/16 12:37 Bedside Glucose 78 82 Medications Medications Current Medications Naloxone HCl (Narcan) 0.4 mg Q3M PRN IV DECREASED REPIRATORY RATE; Start at 10:30 Ondansetron HCl (Zofran Inj) 4 mg Q6H PRN IV NAUSEA AND/OR VOMITING; Start 01/12 at 10:30 Nitroglycerin (Nitroglycerin (Sl Tab) 0.4 Mg) 1 tab Q5M PRN SL CHEST PAIN; Start 06/06/16 at 10:30 Acetaminophen (Tylenol Liquid) 650 mg Q6H PRN PO PAIN LEVEL 1-3 OR FEVER; Start 06/06/16 at 10:30 Morphine Sulfate (morphine) 2 mg Q4H PRN IV PAIN LEVEL 7-10 Last administered on 06/15/16 00:22; Admin Dose 2 MG; Start 06/06/16 at 10:30 Docusate Sodium (Colace) 100 mg Q12H PRN PO CONSTIPATION; Start 06/06/16 at 10: 30 Magnesium Hydroxide (Milk Of Mag) 30 ml DAILY PRN PO CONSTIPATION; Start at 10:30 Bisacodyl (Dulcolax) 5 mg DAILY PRN PO CONSTIPATION; Start 06/06/16 at 10:30 Pantoprazole (Protonix Iv) 40 mg DAILY@06 IV Last administered on 06/24/16 05: 33; Admin Dose 40 MG; Start 06/07/16 at 06:00 Enoxaparin Sodium (Lovenox) 40 mg DAILY SC Last administered on 06/24/16 08:45 ; Admin Dose 40 MG; Start 06/07/16 at 09:00 Collagenase (Santyl) 1 applic DAILY TOP Last administered on 06/24/16 08:34; Admin Dose 1 APPLIC; Start 06/07/16 at 09:00 Collagenase (Santyl) 1 applic PRN PRN TOP WOUND CARE; Start 06/06/16 at 16:00 IV Flush (NS 10 ml) 10 ml PRN PRN IV IV PROTOCOL; Start 06/06/16 at 18:30 Ascorbic Acid (Vitamin C) 500 mg DAILY GTB Last administered on 06/24/16 08:33 ; Admin Dose 500 MG; Start 06/07/16 at 09:00 Aspirin (Aspirin) 325 mg DAILY GTB Last administered on 06/24/16 08:33; Admin Dose 325 MG; Start 06/07/16 at 09:00 Multivitamins (Thera-Plus) 5 ml DAILY GTB Last administered on 06/24/16 08:33 ; Admin Dose 5 ML; Start 06/07/16 at 09:00 Tamsulosin HCl (Flomax) 0.4 mg HS PO Last administered on 06/23/16 22:07; Admin Dose 0.4 MG; Start 06/07/16 at 21:00 Zinc Sulfate (Zinc Sulfate) 220 mg DAILY GTB Last administered on 06/24/16 08: 33; Admin Dose 220 MG; Start 06/07/16 at 09:00 Mupirocin (Bactroban) 1 applic BID TOP Last administered on 06/24/16 08:33; Admin Dose 1 APPLIC; Start 06/07/16 at 21:00 Metoclopramide HCl (Reglan) 10 mg Q6H PRN IV NAUSEA AND/OR VOMITING Last administered on 06/08/16 18:00; Admin Dose 10 MG; Start 06/08/16 at 09:30 Lorazepam (Ativan) 1 mg Q6H PRN IV AGITATION/ANXIETY Last administered on 12:34; Admin Dose 1 MG; Start 06/09/16 at 13:30 Diagnostic Test (Pha) 1 ea 1 ea Q4 XX Last administered on 06/24/16 12:40; Admin Dose 1 EA; Start 06/12/16 at 17:00 Linezolid 300 ml @ 300 mls/hr Q12 IVPB Last administered on 06/24/16 08:33; Admin Dose 300 MLS/HR; Start 06/14/16 at 21:00 Colistimethate Sodium 75 mg/ Sodium Chloride 100 ml @ 200 mls/hr Q12 IVPB Last administered on 06/24/16 09:28; Admin Dose 200 MLS/HR; Start 06/14/16 at 21:00 Metronidazole (Flagyl 500 Mg (Pmx)) 100 ml @ 100 mls/hr Q6 IVPB Last administered on 06/24/16 11:27; Admin Dose 100 MLS/HR; Start 06/14/16 at 18:00 Furosemide (Lasix) 20 mg DAILY@06 IV Last administered on 06/22/16 05:39; Admin Dose 20 MG; Start 06/19/16 at 06:00; Status Future Hold Atenolol (Tenormin) 12.5 mg DAILY PO ; Start 06/25/16 at 09:00 WANG BELL Jun 24, 2016 13:03
--- NOTE | 2016-06-24 13:52 | CONS ---
Date/Time of Note Date/Time of Note DATE: 06/24/16 TIME: 13:49 Assessment/Plan Assessment/Plan Chief Complaint/Hosp Course IMp: 1.CHF-systolic acute on chonic-reasonable volume status at this time 2.Resp failure s/p trach on vent 3.Cardiomyopathy-LVEF 25-30% 4.HTN-with episodes of borderline Hotn and now on midodrine 5.PPM-s/p interrogation with proper function-episodes of SVT and short episode VT 06/09/16/good battery life 6.Leukocytosis 7.Tachycardia-PAF rate controlled 8.Perforated viscous s/p IR drain placement 9. Renal insuff-? overdiuresis Recc: -Tele -Follow BP/Volume status closely and will continue hold lasix given development of renal insuff -Continue abx's and f/u cx data -Continue atenolol as tolerated/possible only -Continue asa/low dose lovenox -Continue abx's/f/u cx data -Follow IR drainage output -Palliative care following -Now on midodrine BP support as necessary Problems: Consultation Date/Type/Reason Admit Date/Time Jun 06, 2016 at 08:08 Initial Consult Date 06/07/16 Type of Consultation: Cardiology Reason for Consultation AFL/cardiomyopathy Referring Provider: HOLLI LINDER MD Exam/Review of Systems Vital Signs Vitals Vital Signs Date Time Temp Pulse Resp B/P Pulse Ox O2 Delivery O2 Flow Rate FiO2 06/24/16 12:16 83 06/24/16 11:53 32 100 50 06/24/16 11:38 97.9 109/51 Intake and Output 06/23/16 06/23/16 06/24/16 15:00 23:00 07:00 Intake Total 400 ml 100 ml 1200 ml Output Total 350 ml 600 ml Balance 400 ml -250 ml 600 ml Exam Review of Systems: CONSTITUTIONAL: No fevers, chills. PULMONARY: No sob CARDIOVASCULAR: No chest pain/palpitations GASTROINTESTINAL: No nausea/vomiting. GENITOURINARY: No hematuria/dysuria. MUSCULOSKELETAL: No myagias/arthalgias. PSYCHIATRIC: The patient denies depression. NEUROLOGIC: lethargic Constitutional: other (sleeping) Psych: no complaints Head: normocephalic ENMT: mucosa pink and moist Neck: jvd (9 cm water), supple Respiratory: diminished breath sounds (at bases/B) Cardiovascular: regular rate and rhythm Gastrointestinal: non-tender, soft Musculoskeletal: muscle tone (normal) Extremities: edema (none) Neurological: lethargic, other (No focal deficits) Results Result Diagram: 06/21/16 0600 06/23/16 0625 Results 24 hrs Laboratory Tests Test 06/23/16 17:18 06/23/16 20:42 06/24/16 00:34 06/24/16 05:36 Bedside Glucose 83 93 88 79 Test 06/24/16 08:31 06/24/16 12:37 Bedside Glucose 78 82 Medications Medications Current Medications Naloxone HCl (Narcan) 0.4 mg Q3M PRN IV DECREASED REPIRATORY RATE; Start at 10:30 Ondansetron HCl (Zofran Inj) 4 mg Q6H PRN IV NAUSEA AND/OR VOMITING; Start 01/12 at 10:30 Nitroglycerin (Nitroglycerin (Sl Tab) 0.4 Mg) 1 tab Q5M PRN SL CHEST PAIN; Start 06/06/16 at 10:30 Acetaminophen (Tylenol Liquid) 650 mg Q6H PRN PO PAIN LEVEL 1-3 OR FEVER; Start 06/06/16 at 10:30 Morphine Sulfate (morphine) 2 mg Q4H PRN IV PAIN LEVEL 7-10 Last administered on 06/15/16 00:22; Admin Dose 2 MG; Start 06/06/16 at 10:30 Docusate Sodium (Colace) 100 mg Q12H PRN PO CONSTIPATION; Start 06/06/16 at 10: 30 Magnesium Hydroxide (Milk Of Mag) 30 ml DAILY PRN PO CONSTIPATION; Start at 10:30 Bisacodyl (Dulcolax) 5 mg DAILY PRN PO CONSTIPATION; Start 06/06/16 at 10:30 Pantoprazole (Protonix Iv) 40 mg DAILY@06 IV Last administered on 06/24/16 05: 33; Admin Dose 40 MG; Start 06/07/16 at 06:00 Enoxaparin Sodium (Lovenox) 40 mg DAILY SC Last administered on 06/24/16 08:45 ; Admin Dose 40 MG; Start 06/07/16 at 09:00 Collagenase (Santyl) 1 applic DAILY TOP Last administered on 06/24/16 08:34; Admin Dose 1 APPLIC; Start 06/07/16 at 09:00 Collagenase (Santyl) 1 applic PRN PRN TOP WOUND CARE; Start 06/06/16 at 16:00 IV Flush (NS 10 ml) 10 ml PRN PRN IV IV PROTOCOL; Start 06/06/16 at 18:30 Ascorbic Acid (Vitamin C) 500 mg DAILY GTB Last administered on 06/24/16 08:33 ; Admin Dose 500 MG; Start 06/07/16 at 09:00 Aspirin (Aspirin) 325 mg DAILY GTB Last administered on 06/24/16 08:33; Admin Dose 325 MG; Start 06/07/16 at 09:00 Multivitamins (Thera-Plus) 5 ml DAILY GTB Last administered on 06/24/16 08:33 ; Admin Dose 5 ML; Start 06/07/16 at 09:00 Tamsulosin HCl (Flomax) 0.4 mg HS PO Last administered on 06/23/16 22:07; Admin Dose 0.4 MG; Start 06/07/16 at 21:00 Zinc Sulfate (Zinc Sulfate) 220 mg DAILY GTB Last administered on 06/24/16 08: 33; Admin Dose 220 MG; Start 06/07/16 at 09:00 Mupirocin (Bactroban) 1 applic BID TOP Last administered on 06/24/16 08:33; Admin Dose 1 APPLIC; Start 06/07/16 at 21:00 Metoclopramide HCl (Reglan) 10 mg Q6H PRN IV NAUSEA AND/OR VOMITING Last administered on 06/08/16 18:00; Admin Dose 10 MG; Start 06/08/16 at 09:30 Lorazepam (Ativan) 1 mg Q6H PRN IV AGITATION/ANXIETY Last administered on 12:34; Admin Dose 1 MG; Start 06/09/16 at 13:30 Diagnostic Test (Pha) 1 ea 1 ea Q4 XX Last administered on 06/24/16 12:40; Admin Dose 1 EA; Start 06/12/16 at 17:00 Linezolid 300 ml @ 300 mls/hr Q12 IVPB Last administered on 06/24/16 08:33; Admin Dose 300 MLS/HR; Start 06/14/16 at 21:00 Colistimethate Sodium 75 mg/ Sodium Chloride 100 ml @ 200 mls/hr Q12 IVPB Last administered on 06/24/16 09:28; Admin Dose 200 MLS/HR; Start 06/14/16 at 21:00 Metronidazole (Flagyl 500 Mg (Pmx)) 100 ml @ 100 mls/hr Q6 IVPB Last administered on 06/24/16 11:27; Admin Dose 100 MLS/HR; Start 06/14/16 at 18:00 Furosemide (Lasix) 20 mg DAILY@06 IV Last administered on 06/22/16 05:39; Admin Dose 20 MG; Start 06/19/16 at 06:00; Status Future Hold Atenolol (Tenormin) 12.5 mg DAILY PO ; Start 06/25/16 at 09:00 Midodrine (Proamatine) 5 mg BID@,17 GTB ; Start 06/24/16 at 17:00 JAYA GORE Jun 24, 2016 13:52
--- NOTE | 2016-06-24 16:01 | CONS ---
Date/Time of Note Date/Time of Note DATE: 06/24/16 TIME: 15:59 Assessment/Plan Assessment/Plan Chief Complaint/Hosp Course ID PROGRESS NOTE TOTAL ABX DAY #14=> Colistin #11, Zyvox, Flagyl = DC ABX Sunday06/25/16 24H INTERVAL SUMMARY * Today is LAST DAY ABX => Patient clinically improved and stable * 85 yo w/Dementia, encephalopathy, noncommunicative, trach->Vent, peg * Pt is on TPN * DC planning in process PHYSICAL EXAMINATION: GENERAL: VSS, NADm, no fevers HEENT: Unremarkable, missing teeth NECK: Supple, trach-> Vent CHEST: Equal chest rise bilaterally, without dyspnea on observation HEART: Pulse RRR ABDOMEN: Soft, peg EXTREMITIES: Warm, PICC LUEXT w/TPN SKIN: Warm, dry SKIN: Decubs -- see photos ID ASSESSMENT: 85 yo M admitted with: 1. s/p Sepsis with persistent leukocytosis = RESOLVED * (+)MRSA septicemia w/BCx(+) MRSA on admission * Repeat BCx (-) 2. Perforated viscus, POD # 4 => CT guided ABD abscess drainage catheter placement * Abdominal fluid culture growing gram-negative rods, Klebsiella, enterococcus species Leuconostoc. * Late posted Cx result ANAEROBIC CULTURE Final Organism 1 BACTEROIDES FRAGILIS * FUNGAL WET MOUNT Final 10% POTASSIUM HYDROXIDE NO FUNGAL ELEMENTS OR HYPHAE SEEN 3. Respiratory failure= chronic VDRF 4. HCAP - suspect aspiration Pneumonia. * Chest x-ray revealed stable small bilateral pleural effusions with increased CHF. 5. Dysphagia. 6. Enterococcal urinary tract infection. 7. Candidiasis oral, skin folds INVASIVES: * Trach, PEG, FC, Intra-ABD drain, PICC LUEXT ABX ALLERGIES: KNDA CURRENT ABX: DAY #14=> Colistin #10, Zyvox, Flagyl Diflucan -> DC 06/12 ID RECOMMENDATIONS: 1. Continue current ABX REQUIRES at least 14 days ABX for (+)Blood Cx = DC ABX Sunday06/25/16 * Start ABX de-escalation: Today will DC Diflucan * Colistin -> CRKP - MDRO * Zyvox ->Enterococcus * Flagyl -> Bacteroides * DC Diflucan today == he remains on TPN; hence at risk for candidiasis observe OFF Diflucan . . Problems: Consultation Date/Type/Reason Admit Date/Time Jun 06, 2016 at 08:08 Initial Consult Date 06/07/16 Type of Consultation: ID Referring Provider: HOLLI LINDER MD Exam/Review of Systems Vital Signs Vitals Vital Signs Date Time Temp Pulse Resp B/P Pulse Ox O2 Delivery O2 Flow Rate FiO2 06/24/16 15:20 97.9 79 33 98/53 96 06/24/16 15:16 50 Intake and Output 06/23/16 06/23/16 06/24/16 15:00 23:00 07:00 Intake Total 400 ml 100 ml 1200 ml Output Total 350 ml 600 ml Balance 400 ml -250 ml 600 ml Results Result Diagram: 06/21/16 0600 06/23/16 0625 Results 24 hrs Laboratory Tests Test 06/23/16 17:18 06/23/16 20:42 06/24/16 00:34 06/24/16 05:36 Bedside Glucose 83 93 88 79 Test 06/24/16 08:31 06/24/16 12:37 Bedside Glucose 78 82 Medications Medications Current Medications Naloxone HCl (Narcan) 0.4 mg Q3M PRN IV DECREASED REPIRATORY RATE; Start at 10:30 Ondansetron HCl (Zofran Inj) 4 mg Q6H PRN IV NAUSEA AND/OR VOMITING; Start 01/12 at 10:30 Nitroglycerin (Nitroglycerin (Sl Tab) 0.4 Mg) 1 tab Q5M PRN SL CHEST PAIN; Start 06/06/16 at 10:30 Acetaminophen (Tylenol Liquid) 650 mg Q6H PRN PO PAIN LEVEL 1-3 OR FEVER; Start 06/06/16 at 10:30 Morphine Sulfate (morphine) 2 mg Q4H PRN IV PAIN LEVEL 7-10 Last administered on 06/15/16t 00:22; Admin Dose 2 MG; Start 06/06/16 at 10:30 Docusate Sodium (Colace) 100 mg Q12H PRN PO CONSTIPATION; Start 06/06/16 at 10: 30 Magnesium Hydroxide (Milk Of Mag) 30 ml DAILY PRN PO CONSTIPATION; Start at 10:30 Bisacodyl (Dulcolax) 5 mg DAILY PRN PO CONSTIPATION; Start 06/06/16 at 10:30 Pantoprazole (Protonix Iv) 40 mg DAILY@06 IV Last administered on 06/24/16 05: 33; Admin Dose 40 MG; Start 06/07/16 at 06:00 Enoxaparin Sodium (Lovenox) 40 mg DAILY SC Last administered on 06/24/16 08:45 ; Admin Dose 40 MG; Start 06/07/16 at 09:00 Collagenase (Santyl) 1 applic DAILY TOP Last administered on 06/24/16 08:34; Admin Dose 1 APPLIC; Start 06/07/16 at 09:00 Collagenase (Santyl) 1 applic PRN PRN TOP WOUND CARE; Start 06/06/16 at 16:00 IV Flush (NS 10 ml) 10 ml PRN PRN IV IV PROTOCOL; Start 06/06/16 at 18:30 Ascorbic Acid (Vitamin C) 500 mg DAILY GTB Last administered on 06/24/16 08:33 ; Admin Dose 500 MG; Start 06/07/16 at 09:00 Aspirin (Aspirin) 325 mg DAILY GTB Last administered on 06/24/16 08:33; Admin Dose 325 MG; Start 06/07/16 at 09:00 Multivitamins (Thera-Plus) 5 ml DAILY GTB Last administered on 06/24/16 08:33 ; Admin Dose 5 ML; Start 06/07/16 at 09:00 Tamsulosin HCl (Flomax) 0.4 mg HS PO Last administered on 06/23/16 22:07; Admin Dose 0.4 MG; Start 06/07/16 at 21:00 Zinc Sulfate (Zinc Sulfate) 220 mg DAILY GTB Last administered on 06/24/16 08: 33; Admin Dose 220 MG; Start 06/07/16 at 09:00 Mupirocin (Bactroban) 1 applic BID TOP Last administered on 06/24/16 08:33; Admin Dose 1 APPLIC; Start 06/07/16 at 21:00 Metoclopramide HCl (Reglan) 10 mg Q6H PRN IV NAUSEA AND/OR VOMITING Last administered on 06/08/16 18:00; Admin Dose 10 MG; Start 06/08/16 at 09:30 Lorazepam (Ativan) 1 mg Q6H PRN IV AGITATION/ANXIETY Last administered on 12:34; Admin Dose 1 MG; Start 06/09/16 at 13:30 Diagnostic Test (Pha) 1 ea 1 ea Q4 XX Last administered on 06/24/16 12:40; Admin Dose 1 EA; Start 06/12/16 at 17:00 Linezolid 300 ml @ 300 mls/hr Q12 IVPB Last administered on 06/24/16 08:33; Admin Dose 300 MLS/HR; Start 06/14/16 at 21:00 Colistimethate Sodium 75 mg/ Sodium Chloride 100 ml @ 200 mls/hr Q12 IVPB Last administered on 06/24/16 09:28; Admin Dose 200 MLS/HR; Start 06/14/16 at 21:00 Metronidazole (Flagyl 500 Mg (Pmx)) 100 ml @ 100 mls/hr Q6 IVPB Last administered on 06/24/16 11:27; Admin Dose 100 MLS/HR; Start 06/14/16 at 18:00 Furosemide (Lasix) 20 mg DAILY@06 IV Last administered on 06/22/16 05:39; Admin Dose 20 MG; Start 06/19/16 at 06:00; Status Future Hold Atenolol (Tenormin) 12.5 mg DAILY PO ; Start 06/25/16 at 09:00 Midodrine (Proamatine) 5 mg BID@ GTB ; Start 06/24/16 at 17:00 LINDSAY LAGUNAS NP Jun 24, 2016 16:01
[2016-06-24] MEDS: MIDODRINE 5 MG TAB GTB SCH (17:27)
--- NOTE | 2016-06-24 17:43 | PN ---
Date/Time of Note Date/Time of Note DATE: 06/24/16 TIME: 17:42 Assessment/Plan Lines/Catheters IV Catheter Type (from [facility]): PICC Line Alfonso in Place (from [facility]): Yes Assessment/Plan Chief Complaint/Hosp Course 1. Contained perforated viscous s/p IR drain 06/11. Cx noted. Leukocytosis resolved. Tube feeds started. Bowel function. Drain dcd. s/p Abx. 2. Pneumonia -pulmonary toilette -abx 3. Sepsis, significant leukocytosis. Improving -abx -as above 4. Sacral decubitus ulcer -off load -nutrition optimization -vit c -local care 5. Chronic AFib -rate control -optimize electrolytes -tx infections 6. Anemia -monitor 7. Hypoalbuminemia -eventual nutritional optimization 8. CHF -judicious fluid management -cardiac optimization Thank you, Problems: Subjective 24 Hr Interval Summary No f/c. No cough. No sz. No rashes. No bloating. No vomiting. No bleeding. Leukocytosis resolved. TFs. Bowel function. Drain removed. Exam/Review of Systems Vital Signs Vitals Vital Signs Date Time Temp Pulse Resp B/P Pulse Ox O2 Delivery O2 Flow Rate FiO2 06/24/16 17:23 83 31 100 50 06/24/16 15:20 97.9 98/53 Intake and Output 06/23/16 06/23/16 06/24/16 15:00 23:00 07:00 Intake Total 400 ml 100 ml 1200 ml Output Total 350 ml 600 ml Balance 400 ml -250 ml 600 ml Exam Free Text/Dictation Constitutional: No alert, No distress, No oriented Psych: confusion, No anxiety Head: atraumatic, normocephalic Eyes: PERRL, nl conjunctiva, No icteric ENMT: mucosa pink and moist, nl external ears & nose, nl lips & teeth Neck: jvd (min), non-tender Respiratory: No congested cough, No labored breathing Cardiovascular: No edema, No regular rate and rhythm Gastrointestinal: soft, PEG No distended, No firm, No rebound or guarding Musculoskeletal: No joint tenderness, No nl gait and stance Extremities: No calf tenderness, No cyanosis Neurological: No nl mental status, No nl speech, No nl strength Skin: nl turgor, rash or lesions (Sacral and LE decubitus ulcerations), No diaphoresis Lymph: nl lymph nodes Results Result Diagram: 06/21/16 0600 06/23/16 0625 DAREK AHMADI MD Jun 24, 2016 17:43
[2016-06-24] MEDS: TAMSULOSIN (SR) 0.4 MG CAP PO SCH (21:58)
[2016-06-25] VITALS (26 sets, daily range): BP systolic 81–121; BP diastolic 45–57; PULSE 72–92; RESP 19–35
[2016-06-25] MEDS: metroNIDAZOLE 500 MG/NS (PMX) 100 ML IVPB SCH ×5 (00:54→17:18)
[2016-06-25] MEDS: IPRATROPIUM (HFA) 12.9 GM INHALER INH SCH ×7 (01:18→21:21)
[2016-06-25] MEDS: ALBUTEROL 18 GM INHALER INH SCH ×7 (01:18→21:21)
[2016-06-25] MEDS: ACCU-CHEK XX SCH ×5 (01:27→17:29)
[2016-06-25] MEDS: PANTOPRAZOLE 40 MG INJ IV SCH (06:24)
[2016-06-25 06:46] LABS: ADD SCAN DIFF NO
[2016-06-25 06:50] LABS: ABNORMAL IP MESSAGE 1; BASOPHILS % 0.2 % (0.0-2.0); EOSINOPHILS # 0.4 10^3/ul (0.0-0.5); EOSINOPHILS % 2.9 % (0.0-7.0); HEMATOCRIT 19.7 % (42.0-52.0); LYMPHOCYTES # 1.9 10^3/ul (0.8-2.9); LYMPHOCYTES % 15.6 % (15.0-51.0); MEAN CORPUSCULAR HGB CONC 31.5 g/dl (32.0-37.0); MEAN CORPUSCULAR VOLUME 92.1 fl (82.0-101.0); MEAN PLATELET VOLUME 12.2 fl (7.4-10.4); MONOCYTE # 0.7 10^3/ul (0.3-0.9); MONOCYTES % 6.1 % (0.0-11.0); NEUTROPHIL # 8.9 10^3/ul (1.6-7.5); NEUTROPHILS % 73.6 % (39.0-77.0); NUCLEATED RED BLOOD CELLS% 0.2 /100WBC (0.0-0.0); PLATELET COUNT 81 10^3/UL (140-415); RED BLOOD COUNT 2.14 10^6/ul (4.70-6.10); RED CELL DISTRIBUTION WIDTH 17.1 % (11.5-14.5); WHITE BLOOD COUNT 12.1 10^3/ul (4.8-10.8)
[2016-06-25 07:04] LABS: CALCIUM 7.1 mg/dl (8.4-10.2); CREATININE 1.51 mg/dl (0.61-1.24); POTASSIUM 3.6 mmol/L (3.5-5.1)
[2016-06-25 07:10] LABS: HEMOGLOBIN 6.2 g/dl (14.0-18.0)
[2016-06-25] MEDS: ASPIRIN 325 MG TAB GTB SCH (08:19)
[2016-06-25] MEDS: ASCORBIC ACID 500 MG TAB GTB SCH (08:19)
[2016-06-25] MEDS: LINEZOLID 600 MG/D5W (PMX) 300 ML IVPB SCH ×2 (08:19→21:33)
[2016-06-25] MEDS: ZINC SULFATE 220 MG CAP GTB SCH (08:19)
[2016-06-25] MEDS: MULTIVITAMINS 5 ML CUP GTB SCH (08:19)
[2016-06-25] MEDS: MIDODRINE 5 MG TAB GTB SCH ×2 (08:20→17:19)
[2016-06-25] MEDS: MUPIROCIN 2% 22 GM OINT TOP SCH ×2 (08:21→21:34)
[2016-06-25 08:34] LABS: HEMATOCRIT 19.7 % (42.0-52.0)
[2016-06-25 08:38] LABS: HEMOGLOBIN 6.2 g/dl (14.0-18.0)
[2016-06-25] MEDS: ENOXAPARIN 40 MG/0.4 ML SYG SC SCH (08:58)
[2016-06-25] MEDS ORDERED: FUROSEMIDE 20 MG INJ IV SCH (09:00)
[2016-06-25] MEDS ORDERED: SOD CHLORIDE 0.9% 250 ML IV SCH (09:00)
[2016-06-25] MEDS: ATENOLOL 25 MG TAB PO SCH (09:00)
[2016-06-25] MEDS: COLLAGENASE 30 GM TUBE TOP SCH (09:30)
[2016-06-25] MEDS: COLISTIMETHATE 75 MG in SOD CHLORIDE 0.9% 100 ML IVPB SCH ×2 (10:05→20:29)
--- NOTE | 2016-06-25 12:46 | CONS ---
Date/Time of Note Date/Time of Note DATE: 06/25/16 TIME: 12:44 Assessment/Plan Assessment/Plan Additional Assessment/Plan Ventilator settings; AC of 14, tidal volume 400, PEEP of 5, 50% FiO2. Assessment recommendations; 1. Patient admitted for severe sepsis due to sacral decubitus ulcers. Currently on broad-spectrum antibiotic coverage. 2. Anemia. 3. Multi-infarct dementia. 4. History of cardiac arrhythmia. 5. Recent bowel perforation, treated conservatively, currently on TPN. Next 6. Chronic respiratory failure. Transfuse 2 units packed RBCs. Continue current supportive care. Prognosis is very poor. Consultation Date/Type/Reason Admit Date/Time Jun 06, 2016 at 08:08 Initial Consult Date 06/07/16 Type of Consultation: Pulmonary/critical care Referring Provider: HOLLI LINDER MD 24 HR Interval Summary Free Text/Dictation Patient condition remains stable. Patient remains essentially unresponsive. Has remained hemodynamically stable. General exam; elderly male, on ventilator via tracheostomy currently in no distress, unresponsive. Exam/Review of Systems Vital Signs Vitals Vital Signs Date Time Temp Pulse Resp B/P Pulse Ox O2 Delivery O2 Flow Rate FiO2 06/25/16 12:31 73 06/25/16 11:20 30 100 50 06/25/16 11:16 99.0 83/45 Intake and Output 06/24/16 06/24/16 06/25/16 15:00 23:00 07:00 Intake Total 1700 ml 940 ml Output Total 850 ml 750 ml Balance 850 ml 190 ml Exam HEENT exam; supple neck, no JVD. No lymphadenopathy. Midline trachea. Patient is edentulous. Has bilateral corneal opacities. Tracheostomy placed with clean insertion site. Chest examination; diminished but clear vessel bilaterally. S1-S2 audible, no murmurs. Irregular rhythm. Abdomen examination; soft, G-tube in place. Nondistended. Bowel sounds audible. Back examination; dressing applied over sacral wounds. Extremity examination; no peripheral edema. CRIMINAL COURT JUDGE examination; patient remains unresponsive. Results Result Diagram: 06/25/16 0813 06/25/16 0605 Results 24 hrs Laboratory Tests Test 06/24/16 17:24 06/24/16 20:43 06/25/16 00:53 06/25/16 05:38 Bedside Glucose 82 82 89 80 Test 06/25/16 06:05 06/25/16 08:13 06/25/16 12:40 White Blood Count 12.1 #H Red Blood Count 2.14 #L Hemoglobin 6.2 #*L 6.2 *L Hematocrit 19.7 #L 19.7 L Mean Corpuscular Volume 92.1 Mean Corpuscular Hemoglobin 29.0 Mean Corpuscular Hemoglobin Concent 31.5 L Red Cell Distribution Width 17.1 H Platelet Count 81 L Mean Platelet Volume 12.2 H Neutrophils % 73.6 Lymphocytes % 15.6 Monocytes % 6.1 Eosinophils % 2.9 Basophils % 0.2 Nucleated Red Blood Cells % 0.2 H Neutrophils # 8.9 H Lymphocytes # 1.9 Monocytes # 0.7 Eosinophils # 0.4 Basophils # 0.0 Nucleated Red Blood Cells # 0.0 Sodium Level 127 L Potassium Level 3.6 Chloride Level 104 Carbon Dioxide Level 18 L Anion Gap 9 Blood Urea Nitrogen 32 H Creatinine 1.51 H Glucose Level 77 Calcium Level 7.1 L Bedside Glucose 109 Medications Medications Current Medications Naloxone HCl (Narcan) 0.4 mg Q3M PRN IV DECREASED REPIRATORY RATE; Start at 10:30 Ondansetron HCl (Zofran Inj) 4 mg Q6H PRN IV NAUSEA AND/OR VOMITING; Start 01/12 at 10:30 Nitroglycerin (Nitroglycerin (Sl Tab) 0.4 Mg) 1 tab Q5M PRN SL CHEST PAIN; Start 06/06/16 at 10:30 Acetaminophen (Tylenol Liquid) 650 mg Q6H PRN PO PAIN LEVEL 1-3 OR FEVER; Start 06/06/16 at 10:30 Morphine Sulfate (morphine) 2 mg Q4H PRN IV PAIN LEVEL 7-10 Last administered on 06/15/16 00:22; Admin Dose 2 MG; Start 06/06/16 at 10:30 Docusate Sodium (Colace) 100 mg Q12H PRN PO CONSTIPATION; Start 06/06/16 at 10: 30 Magnesium Hydroxide (Milk Of Mag) 30 ml DAILY PRN PO CONSTIPATION; Start at 10:30 Bisacodyl (Dulcolax) 5 mg DAILY PRN PO CONSTIPATION; Start 06/06/16 at 10:30 Pantoprazole (Protonix Iv) 40 mg DAILY@06 IV Last administered on 06/25/16 06: 24; Admin Dose 40 MG; Start 06/07/16 at 06:00 Enoxaparin Sodium (Lovenox) 40 mg DAILY SC Last administered on 06/25/16 08:58 ; Admin Dose 40 MG; Start 06/07/16 at 09:00 Collagenase (Santyl) 1 applic DAILY TOP Last administered on 06/25/16 09:30; Admin Dose 1 APPLIC; Start 06/07/16 at 09:00 Collagenase (Santyl) 1 applic PRN PRN TOP WOUND CARE; Start 06/06/16 at 16:00 IV Flush (NS 10 ml) 10 ml PRN PRN IV IV PROTOCOL; Start 06/06/16 at 18:30 Ascorbic Acid (Vitamin C) 500 mg DAILY GTB Last administered on 06/25/16 08:19 ; Admin Dose 500 MG; Start 06/07/16 at 09:00 Aspirin (Aspirin) 325 mg DAILY GTB Last administered on 06/25/16 08:19; Admin Dose 325 MG; Start 06/07/16 at 09:00 Multivitamins (Thera-Plus) 5 ml DAILY GTB Last administered on 06/25/16 08:19 ; Admin Dose 5 ML; Start 06/07/16 at 09:00 Tamsulosin HCl (Flomax) 0.4 mg HS PO Last administered on 06/24/16 21:58; Admin Dose 0.4 MG; Start 06/07/16 at 21:00 Zinc Sulfate (Zinc Sulfate) 220 mg DAILY GTB Last administered on 06/25/16 08: 19; Admin Dose 220 MG; Start 06/07/16 at 09:00 Mupirocin (Bactroban) 1 applic BID TOP Last administered on 06/25/16 08:21; Admin Dose 1 APPLIC; Start 06/07/16 at 21:00 Metoclopramide HCl (Reglan) 10 mg Q6H PRN IV NAUSEA AND/OR VOMITING Last administered on 06/08/16 18:00; Admin Dose 10 MG; Start 06/08/16 at 09:30 Lorazepam (Ativan) 1 mg Q6H PRN IV AGITATION/ANXIETY Last administered on 12:34; Admin Dose 1 MG; Start 06/09/16 at 13:30 Diagnostic Test (Pha) 1 ea 1 ea Q4 XX Last administered on 06/25/16 12:41; Admin Dose 1 EA; Start 06/12/16 at 17:00 Linezolid 300 ml @ 300 mls/hr Q12 IVPB Last administered on 06/25/16 08:19; Admin Dose 300 MLS/HR; Start 06/14/16 at 21:00 Colistimethate Sodium 75 mg/ Sodium Chloride 100 ml @ 200 mls/hr Q12 IVPB Last administered on 06/25/16 10:05; Admin Dose 200 MLS/HR; Start 06/14/16 at 21:00 Metronidazole (Flagyl 500 Mg (Pmx)) 100 ml @ 100 mls/hr Q6 IVPB Last administered on 06/25/16 11:20; Admin Dose 100 MLS/HR; Start 06/14/16 at 18:00 Furosemide (Lasix) 20 mg DAILY@06 IV Last administered on 06/22/16 05:39; Admin Dose 20 MG; Start 06/19/16 at 06:00; Status Future Hold Atenolol (Tenormin) 12.5 mg DAILY PO ; Start 06/25/16 at 09:00 Midodrine 5 mg 5 mg BID@,17 GTB Last administered on 06/25/16 08:20; Admin Dose 5 MG; Start 06/24/16 at 17:00 Sodium Chloride (NS) 250 ml @ 10 mls/hr Q24H IV Last administered on 12:07; Admin Dose 10 MLS/HR; Start 06/25/16 at 09:00; Stop 06/25/16 at 16: 00 Furosemide (Lasix) 20 mg ONCE IV ; Start 06/25/16 at 09:00; Stop 06/25/16 at 18: 00 GERALDINE CUNNINGHAM Jun 25, 2016 12:46
--- NOTE | 2016-06-25 13:21 | CONS ---
Date/Time of Note Date/Time of Note DATE: 06/25/16 TIME: 13:19 Assessment/Plan Assessment/Plan Chief Complaint/Hosp Course IMp: 1.CHF-systolic acute on chonic-reasonable volume status at this time 2.Resp failure s/p trach on vent 3.Cardiomyopathy-LVEF 25-30% 4.HTN-with episodes of borderline Hotn and now on midodrine 5.PPM-s/p interrogation with proper function-episodes of SVT and short episode VT 06/09/16/good battery life 6.Leukocytosis 7.Tachycardia-PAF rate controlled 8.Perforated viscous s/p IR drain placement 9. Renal insuff-? overdiuresis Recc: -Tele -Follow BP/Volume status closely and will continue hold lasix given development of renal insuff -Continue abx's and f/u cx data -Continue atenolol as tolerated/possible only -Continue asa/low dose lovenox -Continue abx's/f/u cx data -Follow IR drainage output -Palliative care following -Now on midodrine BP support as necessary Problems: Consultation Date/Type/Reason Admit Date/Time Jun 06, 2016 at 08:08 Initial Consult Date 06/07/16 Type of Consultation: Cardiology Reason for Consultation AFL/CHF/cardiomyopathy Referring Provider: HOLLI LINDER MD Exam/Review of Systems Vital Signs Vitals Vital Signs Date Time Temp Pulse Resp B/P Pulse Ox O2 Delivery O2 Flow Rate FiO2 06/25/16 13:09 86 30 100 50 06/25/16 11:16 99.0 83/45 Intake and Output 06/24/16 06/24/16 06/25/16 15:00 23:00 07:00 Intake Total 1700 ml 940 ml Output Total 850 ml 750 ml Balance 850 ml 190 ml Exam Review of Systems: CONSTITUTIONAL: No fevers, chills. PULMONARY: trached CARDIOVASCULAR: No chest pain/palpitations GASTROINTESTINAL: No nausea/vomiting. GENITOURINARY: No hematuria/dysuria. MUSCULOSKELETAL: No myagias/arthalgias. PSYCHIATRIC: The patient denies depression. NEUROLOGIC: No weakness Constitutional: other (encephalopathic) Psych: no complaints Head: normocephalic ENMT: mucosa pink and moist Neck: jvd (8 cm water), supple Respiratory: other (upper airway rhocherous sounds) Cardiovascular: regular rate and rhythm Gastrointestinal: non-tender, soft Musculoskeletal: muscle tone (normal) Extremities: other (None) Neurological: lethargic Results Result Diagram: 06/25/16 0813 06/25/16 0605 Results 24 hrs Laboratory Tests Test 06/24/16 17:24 06/24/16 20:43 06/25/16 00:53 06/25/16 05:38 Bedside Glucose 82 82 89 80 Test 06/25/16 06:05 06/25/16 08:13 06/25/16 12:40 White Blood Count 12.1 #H Red Blood Count 2.14 #L Hemoglobin 6.2 #*L 6.2 *L Hematocrit 19.7 #L 19.7 L Mean Corpuscular Volume 92.1 Mean Corpuscular Hemoglobin 29.0 Mean Corpuscular Hemoglobin Concent 31.5 L Red Cell Distribution Width 17.1 H Platelet Count 81 L Mean Platelet Volume 12.2 H Neutrophils % 73.6 Lymphocytes % 15.6 Monocytes % 6.1 Eosinophils % 2.9 Basophils % 0.2 Nucleated Red Blood Cells % 0.2 H Neutrophils # 8.9 H Lymphocytes # 1.9 Monocytes # 0.7 Eosinophils # 0.4 Basophils # 0.0 Nucleated Red Blood Cells # 0.0 Sodium Level 127 L Potassium Level 3.6 Chloride Level 104 Carbon Dioxide Level 18 L Anion Gap 9 Blood Urea Nitrogen 32 H Creatinine 1.51 H Glucose Level 77 Calcium Level 7.1 L Bedside Glucose 109 Medications Medications Current Medications Naloxone HCl (Narcan) 0.4 mg Q3M PRN IV DECREASED REPIRATORY RATE; Start at 10:30 Ondansetron HCl (Zofran Inj) 4 mg Q6H PRN IV NAUSEA AND/OR VOMITING; Start 01/12 at 10:30 Nitroglycerin (Nitroglycerin (Sl Tab) 0.4 Mg) 1 tab Q5M PRN SL CHEST PAIN; Start 06/06/16 at 10:30 Acetaminophen (Tylenol Liquid) 650 mg Q6H PRN PO PAIN LEVEL 1-3 OR FEVER; Start 06/06/16 at 10:30 Morphine Sulfate (morphine) 2 mg Q4H PRN IV PAIN LEVEL 7-10 Last administered on 06/15/16t 00:22; Admin Dose 2 MG; Start 06/06/16 at 10:30 Docusate Sodium (Colace) 100 mg Q12H PRN PO CONSTIPATION; Start 06/06/16 at 10: 30 Magnesium Hydroxide (Milk Of Mag) 30 ml DAILY PRN PO CONSTIPATION; Start at 10:30 Bisacodyl (Dulcolax) 5 mg DAILY PRN PO CONSTIPATION; Start 06/06/16 at 10:30 Pantoprazole (Protonix Iv) 40 mg DAILY@06 IV Last administered on 06/25/16 06: 24; Admin Dose 40 MG; Start 06/07/16 at 06:00 Enoxaparin Sodium (Lovenox) 40 mg DAILY SC Last administered on 06/25/16 08:58 ; Admin Dose 40 MG; Start 06/07/16 at 09:00 Collagenase (Santyl) 1 applic DAILY TOP Last administered on 06/25/16 09:30; Admin Dose 1 APPLIC; Start 06/07/16 at 09:00 Collagenase (Santyl) 1 applic PRN PRN TOP WOUND CARE; Start 06/06/16 at 16:00 IV Flush (NS 10 ml) 10 ml PRN PRN IV IV PROTOCOL; Start 06/06/16 at 18:30 Ascorbic Acid (Vitamin C) 500 mg DAILY GTB Last administered on 06/25/16 08:19 ; Admin Dose 500 MG; Start 06/07/16 at 09:00 Aspirin (Aspirin) 325 mg DAILY GTB Last administered on 06/25/16 08:19; Admin Dose 325 MG; Start 06/07/16 at 09:00 Multivitamins (Thera-Plus) 5 ml DAILY GTB Last administered on 06/25/16 08:19 ; Admin Dose 5 ML; Start 06/07/16 at 09:00 Tamsulosin HCl (Flomax) 0.4 mg HS PO Last administered on 06/24/16 21:58; Admin Dose 0.4 MG; Start 06/07/16 at 21:00 Zinc Sulfate (Zinc Sulfate) 220 mg DAILY GTB Last administered on 06/25/16 08: 19; Admin Dose 220 MG; Start 06/07/16 at 09:00 Mupirocin (Bactroban) 1 applic BID TOP Last administered on 06/25/16 08:21; Admin Dose 1 APPLIC; Start 06/07/16 at 21:00 Metoclopramide HCl (Reglan) 10 mg Q6H PRN IV NAUSEA AND/OR VOMITING Last administered on 06/08/16 18:00; Admin Dose 10 MG; Start 06/08/16 at 09:30 Lorazepam (Ativan) 1 mg Q6H PRN IV AGITATION/ANXIETY Last administered on 12:34; Admin Dose 1 MG; Start 06/09/16 at 13:30 Diagnostic Test (Pha) 1 ea 1 ea Q4 XX Last administered on 06/25/16 12:41; Admin Dose 1 EA; Start 06/12/16 at 17:00 Linezolid 300 ml @ 300 mls/hr Q12 IVPB Last administered on 06/25/16 08:19; Admin Dose 300 MLS/HR; Start 06/14/16 at 21:00 Colistimethate Sodium 75 mg/ Sodium Chloride 100 ml @ 200 mls/hr Q12 IVPB Last administered on 06/25/16 10:05; Admin Dose 200 MLS/HR; Start 06/14/16 at 21:00 Metronidazole (Flagyl 500 Mg (Pmx)) 100 ml @ 100 mls/hr Q6 IVPB Last administered on 06/25/16 11:20; Admin Dose 100 MLS/HR; Start 06/14/16 at 18:00 Furosemide (Lasix) 20 mg DAILY@06 IV Last administered on 06/22/16 05:39; Admin Dose 20 MG; Start 06/19/16 at 06:00; Status Future Hold Atenolol (Tenormin) 12.5 mg DAILY PO ; Start 06/25/16 at 09:00 Midodrine 5 mg 5 mg BID@,17 GTB Last administered on 06/25/16 08:20; Admin Dose 5 MG; Start 06/24/16 at 17:00 Sodium Chloride (NS) 250 ml @ 10 mls/hr Q24H IV Last administered on 12:07; Admin Dose 10 MLS/HR; Start 06/25/16 at 09:00; Stop 06/25/16 at 16: 00 Furosemide (Lasix) 20 mg ONCE IV ; Start 06/25/16 at 09:00; Stop 06/25/16 at 18: 00 JAYA GORE Jun 25, 2016 13:21
--- NOTE | 2016-06-25 18:34 | PN ---
Date/Time of Note Date/Time of Note DATE: 06/25/16 TIME: 18:33 Assessment/Plan VTE Prophylaxis VTE Prophylaxis Intervention: other Lines/Catheters IV Catheter Type (from Nrs): PICC Line Central line still needed: Yes Urinary Cath still in place: Yes Reason Cath still needed: other (indicate) Assessment/Plan Chief Complaint/Hosp Course IMPRESSION: 1. Septic shock.better 2. Pneumonia. aspiration 3. Leukocytosis.better 4. Hematuria. better 5. Lactic acidosis. 6. Respiratory failure. 7. Gastrostomy tube placement. 8. Anemia. 9. Atrial fibrillation. 10. History of congestive heart failure with decreased ejection fraction. 11. vdrf 12. History of paroxysmal atrial fibrillation. 13. The patient now has decubitus. 14 uti 15 In the left anterior mid pelvis there is an approximate 6.3 x 3.2 x 4.7 cm air and fluid collection not definitely bowel suspicious for an abscess/ localized perforation. Diverticula in sigmoid and descending colon. Small amount of ascites. on peg feeding 15 polymirobial sepsis 16 pul edema BETTER 17 no gi bleed plan antibiotic per id weaning per pulmonary and cardio surgery consult GT FEEDING tpn taper per id lasix snf Problems: Subjective 24 Hr Interval Summary Subjective hx not possible: other (no gi bleed) Exam/Review of Systems Vital Signs Vitals Vital Signs Date Time Temp Pulse Resp B/P Pulse Ox O2 Delivery O2 Flow Rate FiO2 06/25/16 17:06 88 35 100 50 06/25/16 16:01 98.6 88/49 Intake and Output 06/24/16 06/24/16 06/25/16 15:00 23:00 07:00 Intake Total 1700 ml 940 ml Output Total 850 ml 750 ml Balance 850 ml 190 ml Exam Neck: supple Respiratory: clear to auscultation Cardiovascular: regular rate and rhythm Gastrointestinal: bowel sounds (+), soft Results Result Diagram: 06/25/16 0813 06/25/16 0605 Results 24 hrs Laboratory Tests Test 06/24/16 20:43 06/25/16 00:53 06/25/16 05:38 06/25/16 06:05 Bedside Glucose 82 89 80 White Blood Count 12.1 #H Red Blood Count 2.14 #L Hemoglobin 6.2 #*L Hematocrit 19.7 #L Mean Corpuscular Volume 92.1 Mean Corpuscular Hemoglobin 29.0 Mean Corpuscular Hemoglobin Concent 31.5 L Red Cell Distribution Width 17.1 H Platelet Count 81 L Mean Platelet Volume 12.2 H Neutrophils % 73.6 Lymphocytes % 15.6 Monocytes % 6.1 Eosinophils % 2.9 Basophils % 0.2 Nucleated Red Blood Cells % 0.2 H Neutrophils # 8.9 H Lymphocytes # 1.9 Monocytes # 0.7 Eosinophils # 0.4 Basophils # 0.0 Nucleated Red Blood Cells # 0.0 Sodium Level 127 L Potassium Level 3.6 Chloride Level 104 Carbon Dioxide Level 18 L Anion Gap 9 Blood Urea Nitrogen 32 H Creatinine 1.51 H Glucose Level 77 Calcium Level 7.1 L Test 06/25/16 08:13 06/25/16 09:15 06/25/16 12:40 06/25/16 17:28 Hemoglobin 6.2 *L Hematocrit 19.7 L Stool Occult Blood NEGATIVE Bedside Glucose 109 101 Medications Medications Current Medications Naloxone HCl (Narcan) 0.4 mg Q3M PRN IV DECREASED REPIRATORY RATE; Start at 10:30 Ondansetron HCl (Zofran Inj) 4 mg Q6H PRN IV NAUSEA AND/OR VOMITING; Start 01/12 at 10:30 Nitroglycerin (Nitroglycerin (Sl Tab) 0.4 Mg) 1 tab Q5M PRN SL CHEST PAIN; Start 06/06/16 at 10:30 Acetaminophen (Tylenol Liquid) 650 mg Q6H PRN PO PAIN LEVEL 1-3 OR FEVER; Start 06/06/16 at 10:30 Morphine Sulfate (morphine) 2 mg Q4H PRN IV PAIN LEVEL 7-10 Last administered on 06/15/16 00:22; Admin Dose 2 MG; Start 06/06/16 at 10:30 Docusate Sodium (Colace) 100 mg Q12H PRN PO CONSTIPATION; Start 06/06/16 at 10: 30 Magnesium Hydroxide (Milk Of Mag) 30 ml DAILY PRN PO CONSTIPATION; Start at 10:30 Bisacodyl (Dulcolax) 5 mg DAILY PRN PO CONSTIPATION; Start 06/06/16 at 10:30 Pantoprazole (Protonix Iv) 40 mg DAILY@06 IV Last administered on 06/25/16 06: 24; Admin Dose 40 MG; Start 06/07/16 at 06:00 Enoxaparin Sodium (Lovenox) 40 mg DAILY SC Last administered on 06/25/16 08:58 ; Admin Dose 40 MG; Start 06/07/16 at 09:00 Collagenase (Santyl) 1 applic DAILY TOP Last administered on 06/25/16 09:30; Admin Dose 1 APPLIC; Start 06/07/16 at 09:00 Collagenase (Santyl) 1 applic PRN PRN TOP WOUND CARE; Start 06/06/16 at 16:00 IV Flush (NS 10 ml) 10 ml PRN PRN IV IV PROTOCOL; Start 06/06/16 at 18:30 Ascorbic Acid (Vitamin C) 500 mg DAILY GTB Last administered on 06/25/16 08:19 ; Admin Dose 500 MG; Start 06/07/16 at 09:00 Aspirin (Aspirin) 325 mg DAILY GTB Last administered on 06/25/16 08:19; Admin Dose 325 MG; Start 06/07/16 at 09:00 Multivitamins (Thera-Plus) 5 ml DAILY GTB Last administered on 06/25/16 08:19 ; Admin Dose 5 ML; Start 06/07/16 at 09:00 Tamsulosin HCl (Flomax) 0.4 mg HS PO Last administered on 06/24/16 21:58; Admin Dose 0.4 MG; Start 06/07/16 at 21:00 Zinc Sulfate (Zinc Sulfate) 220 mg DAILY GTB Last administered on 06/25/16 08: 19; Admin Dose 220 MG; Start 06/07/16 at 09:00 Mupirocin (Bactroban) 1 applic BID TOP Last administered on 06/25/16 08:21; Admin Dose 1 APPLIC; Start 06/07/16 at 21:00 Metoclopramide HCl (Reglan) 10 mg Q6H PRN IV NAUSEA AND/OR VOMITING Last administered on 06/08/16 18:00; Admin Dose 10 MG; Start 06/08/16 at 09:30 Lorazepam 1 mg 1 mg Q6H PRN IV AGITATION/ANXIETY Last administered on 12:34; Admin Dose 1 MG; Start 06/09/16 at 13:30 Linezolid 300 ml @ 300 mls/hr Q12 IVPB Last administered on 06/25/16 08:19; Admin Dose 300 MLS/HR; Start 06/14/16 at 21:00 Colistimethate Sodium 75 mg/ Sodium Chloride 100 ml @ 200 mls/hr Q12 IVPB Last administered on 06/25/16 10:05; Admin Dose 200 MLS/HR; Start 06/14/16 at 21:00 Metronidazole (Flagyl 500 Mg (Pmx)) 100 ml @ 100 mls/hr Q6 IVPB Last administered on 06/25/16 17:18; Admin Dose 100 MLS/HR; Start 06/14/16 at 18:00 Furosemide (Lasix) 20 mg DAILY@06 IV Last administered on 06/22/16 05:39; Admin Dose 20 MG; Start 06/19/16 at 06:00; Status Future Hold Atenolol (Tenormin) 12.5 mg DAILY PO ; Start 06/25/16 at 09:00 Diagnostic Test (Pha) (Accu-Chek) 1 ea Q6 XX Last administered on 06/25/16 17: 29; Admin Dose 1 EA; Start 06/25/16 at 18:00 Midodrine (Proamatine) 5 mg TID@,,17 GTB Last administered on 06/25/16 17: 19; Admin Dose 5 MG; Start 06/25/16 at 17:00 HOLLI LINDER MD Jun 25, 2016 18:34
--- NOTE | 2016-06-25 19:06 | CONS ---
Date/Time of Note Date/Time of Note DATE: 06/25/16 TIME: 19:01 Assessment/Plan Assessment/Plan Chief Complaint/Hosp Course ID PROGRESS NOTE TOTAL ABX DAY #15=> Colistin #12, Zyvox, Flagyl =DC ABX Sunday06/26/16 24H INTERVAL SUMMARY * WBC up today 12.7 with recurrent severe anemia -- ABX due to stop today -- will continue until re-evaluation by ID team this week * 85 yo w/Dementia, encephalopathy, noncommunicative, trach->Vent, peg * Pt is on TPN * DC planning in process == on hold for severe recurrent anemia PHYSICAL EXAMINATION: GENERAL: VSS, NADm, no fevers HEENT: Unremarkable, missing teeth NECK: Supple, trach-> Vent CHEST: Equal chest rise bilaterally, without dyspnea on observation HEART: Pulse RRR ABDOMEN: Soft, peg EXTREMITIES: Warm, PICC LUEXT w/TPN SKIN: Warm, dry SKIN: Decubs -- see photos ID ASSESSMENT: 85 yo M admitted with: 1. s/p Sepsis with persistent leukocytosis = RESOLVED * (+)MRSA septicemia w/BCx(+) MRSA on admission * Repeat BCx (-) 2. Perforated viscus, POD # 06/11/16 => CT guided ABD abscess drainage catheter placement * Abdominal fluid culture growing gram-negative rods, Klebsiella, enterococcus species Leuconostoc. * Late posted Cx result ANAEROBIC CULTURE Final Organism 1 BACTEROIDES FRAGILIS * FUNGAL WET MOUNT Final 10% POTASSIUM HYDROXIDE NO FUNGAL ELEMENTS OR HYPHAE SEEN 3. Respiratory failure= chronic VDRF 4. HCAP - suspect aspiration Pneumonia. * Chest x-ray revealed stable small bilateral pleural effusions with increased CHF. 5. Dysphagia. 6. Enterococcal urinary tract infection. 7. Candidiasis oral, skin folds INVASIVES: * Trach, PEG, FC, Intra-ABD drain, PICC LUEXT ABX ALLERGIES: KNDA CURRENT ABX: DAY #15=> Colistin #12, Zyvox, Flagyl =DC ABX Sunday06/26/16 Diflucan -> DC 06/12 ID RECOMMENDATIONS: 1. Continue current ABX REQUIRES at least 14 days ABX for (+)Blood Cx => continue until re-evaluation by ID colleagues Sunday * Colistin -> CRKP - MDRO * Zyvox ->Enterococcus * Flagyl -> Bacteroides * Remains on TPN with Diflucan DC'd, monitor . . Problems: Consultation Date/Type/Reason Admit Date/Time Jun 06, 2016 at 08:08 Initial Consult Date 06/07/16 Type of Consultation: ID Referring Provider: HOLLI LINDER MD Exam/Review of Systems Vital Signs Vitals Vital Signs Date Time Temp Pulse Resp B/P Pulse Ox O2 Delivery O2 Flow Rate FiO2 06/25/16 17:06 88 35 100 50 06/25/16 16:01 98.6 88/49 Intake and Output 06/24/16 06/24/16 06/25/16 15:00 23:00 07:00 Intake Total 1700 ml 940 ml Output Total 850 ml 750 ml Balance 850 ml 190 ml Results Result Diagram: 06/25/16 0813 06/25/16 0605 Results 24 hrs Laboratory Tests Test 06/24/16 20:43 06/25/16 00:53 06/25/16 05:38 06/25/16 06:05 Bedside Glucose 82 89 80 White Blood Count 12.1 #H Red Blood Count 2.14 #L Hemoglobin 6.2 #*L Hematocrit 19.7 #L Mean Corpuscular Volume 92.1 Mean Corpuscular Hemoglobin 29.0 Mean Corpuscular Hemoglobin Concent 31.5 L Red Cell Distribution Width 17.1 H Platelet Count 81 L Mean Platelet Volume 12.2 H Neutrophils % 73.6 Lymphocytes % 15.6 Monocytes % 6.1 Eosinophils % 2.9 Basophils % 0.2 Nucleated Red Blood Cells % 0.2 H Neutrophils # 8.9 H Lymphocytes # 1.9 Monocytes # 0.7 Eosinophils # 0.4 Basophils # 0.0 Nucleated Red Blood Cells # 0.0 Sodium Level 127 L Potassium Level 3.6 Chloride Level 104 Carbon Dioxide Level 18 L Anion Gap 9 Blood Urea Nitrogen 32 H Creatinine 1.51 H Glucose Level 77 Calcium Level 7.1 L Test 06/25/16 08:13 06/25/16 09:15 06/25/16 12:40 06/25/16 17:28 Hemoglobin 6.2 *L Hematocrit 19.7 L Stool Occult Blood NEGATIVE Bedside Glucose 109 101 Medications Medications Current Medications Naloxone HCl (Narcan) 0.4 mg Q3M PRN IV DECREASED REPIRATORY RATE; Start at 10:30 Ondansetron HCl (Zofran Inj) 4 mg Q6H PRN IV NAUSEA AND/OR VOMITING; Start 01/12 at 10:30 Nitroglycerin (Nitroglycerin (Sl Tab) 0.4 Mg) 1 tab Q5M PRN SL CHEST PAIN; Start 06/06/16 at 10:30 Acetaminophen (Tylenol Liquid) 650 mg Q6H PRN PO PAIN LEVEL 1-3 OR FEVER; Start 06/06/16 at 10:30 Morphine Sulfate (morphine) 2 mg Q4H PRN IV PAIN LEVEL 7-10 Last administered on 06/15/16 00:22; Admin Dose 2 MG; Start 06/06/16 at 10:30 Docusate Sodium (Colace) 100 mg Q12H PRN PO CONSTIPATION; Start 06/06/16 at 10: 30 Magnesium Hydroxide (Milk Of Mag) 30 ml DAILY PRN PO CONSTIPATION; Start at 10:30 Bisacodyl (Dulcolax) 5 mg DAILY PRN PO CONSTIPATION; Start 06/06/16 at 10:30 Pantoprazole (Protonix Iv) 40 mg DAILY@06 IV Last administered on 06/25/16 06: 24; Admin Dose 40 MG; Start 06/07/16 at 06:00 Enoxaparin Sodium (Lovenox) 40 mg DAILY SC Last administered on 06/25/16 08:58 ; Admin Dose 40 MG; Start 06/07/16 at 09:00 Collagenase (Santyl) 1 applic DAILY TOP Last administered on 06/25/16 09:30; Admin Dose 1 APPLIC; Start 06/07/16 at 09:00 Collagenase (Santyl) 1 applic PRN PRN TOP WOUND CARE; Start 06/06/16 at 16:00 IV Flush (NS 10 ml) 10 ml PRN PRN IV IV PROTOCOL; Start 06/06/16 at 18:30 Ascorbic Acid (Vitamin C) 500 mg DAILY GTB Last administered on 06/25/16 08:19 ; Admin Dose 500 MG; Start 06/07/16 at 09:00 Aspirin (Aspirin) 325 mg DAILY GTB Last administered on 06/25/16 08:19; Admin Dose 325 MG; Start 06/07/16 at 09:00 Multivitamins (Thera-Plus) 5 ml DAILY GTB Last administered on 06/25/16 08:19 ; Admin Dose 5 ML; Start 06/07/16 at 09:00 Tamsulosin HCl (Flomax) 0.4 mg HS PO Last administered on 06/24/16 21:58; Admin Dose 0.4 MG; Start 06/07/16 at 21:00 Zinc Sulfate (Zinc Sulfate) 220 mg DAILY GTB Last administered on 06/25/16 08: 19; Admin Dose 220 MG; Start 06/07/16 at 09:00 Mupirocin (Bactroban) 1 applic BID TOP Last administered on 06/25/16 08:21; Admin Dose 1 APPLIC; Start 06/07/16 at 21:00 Metoclopramide HCl (Reglan) 10 mg Q6H PRN IV NAUSEA AND/OR VOMITING Last administered on 06/08/16 18:00; Admin Dose 10 MG; Start 06/08/16 at 09:30 Lorazepam 1 mg 1 mg Q6H PRN IV AGITATION/ANXIETY Last administered on 12:34; Admin Dose 1 MG; Start 06/09/16 at 13:30 Linezolid 300 ml @ 300 mls/hr Q12 IVPB Last administered on 06/25/16 08:19; Admin Dose 300 MLS/HR; Start 06/14/16 at 21:00 Colistimethate Sodium 75 mg/ Sodium Chloride 100 ml @ 200 mls/hr Q12 IVPB Last administered on 06/25/16 10:05; Admin Dose 200 MLS/HR; Start 06/14/16 at 21:00 Metronidazole (Flagyl 500 Mg (Pmx)) 100 ml @ 100 mls/hr Q6 IVPB Last administered on 06/25/16 17:18; Admin Dose 100 MLS/HR; Start 06/14/16 at 18:00 Furosemide (Lasix) 20 mg DAILY@06 IV Last administered on 06/22/16 05:39; Admin Dose 20 MG; Start 06/19/16 at 06:00; Status Future Hold Atenolol (Tenormin) 12.5 mg DAILY PO ; Start 06/25/16 at 09:00 Diagnostic Test (Pha) (Accu-Chek) 1 ea Q6 XX Last administered on 06/25/16 17: 29; Admin Dose 1 EA; Start 06/25/16 at 18:00 Midodrine (Proamatine) 5 mg TID@,,17 GTB Last administered on 06/25/16t 17: 19; Admin Dose 5 MG; Start 06/25/16 at 17:00 LINDSAY LAGUNAS NP Jun 25, 2016 19:06
[2016-06-25] MEDS: TAMSULOSIN (SR) 0.4 MG CAP PO SCH (21:33)
[2016-06-25 22:39] LABS: ADD SCAN DIFF NO
[2016-06-25 22:41] LABS: ABNORMAL IP MESSAGE 1; HEMATOCRIT 23.7 % (42.0-52.0); HEMOGLOBIN 7.8 g/dl (14.0-18.0); MEAN CORPUSCULAR HEMOGLOBIN 30.8 pg (29.0-33.0); MEAN CORPUSCULAR HGB CONC 32.9 g/dl (32.0-37.0); MEAN CORPUSCULAR VOLUME 93.7 fl (82.0-101.0); MEAN PLATELET VOLUME 12.3 fl (7.4-10.4); PLATELET COUNT 72 10^3/UL (140-415); RED BLOOD COUNT 2.53 10^6/ul (4.70-6.10); RED CELL DISTRIBUTION WIDTH 15.9 % (11.5-14.5); WHITE BLOOD COUNT 12.8 10^3/ul (4.8-10.8)
[2016-06-26] VITALS (26 sets, daily range): BP systolic 92–136; BP diastolic 46–66; PULSE 85–103; RESP 16–38
[2016-06-26] MEDS: metroNIDAZOLE 500 MG/NS (PMX) 100 ML IVPB SCH ×5 (00:05→23:23)
[2016-06-26] MEDS: ACCU-CHEK XX SCH ×5 (00:05→23:22)
[2016-06-26] MEDS: ALBUTEROL 18 GM INHALER INH SCH ×6 (01:25→21:29)
[2016-06-26] MEDS: IPRATROPIUM (HFA) 12.9 GM INHALER INH SCH ×6 (01:25→21:29)
[2016-06-26 01:43] LABS: EOSINOPHILS # 0.1 10^3/ul (0.0-0.5); LYMPHOCYTES # 0.6 10^3/ul (0.8-2.9); MONOCYTE # 0.5 10^3/ul (0.3-0.9)
[2016-06-26 01:45] LABS: PLATELET ESTIMATE PLT APPEAR DECREASED
[2016-06-26] MEDS: PANTOPRAZOLE 40 MG INJ IV SCH (06:03)
[2016-06-26 06:43] LABS: ADD SCAN DIFF NO
[2016-06-26 06:49] LABS: ABNORMAL IP MESSAGE 1; BASOPHIL # 0.1 10^3/ul (0.0-0.1); BASOPHILS % 0.4 % (0.0-2.0); EOSINOPHILS # 0.4 10^3/ul (0.0-0.5); EOSINOPHILS % 3.1 % (0.0-7.0); HEMATOCRIT 25.7 % (42.0-52.0); HEMOGLOBIN 8.4 g/dl (14.0-18.0); LYMPHOCYTES # 1.3 10^3/ul (0.8-2.9); MEAN CORPUSCULAR HEMOGLOBIN 30.3 pg (29.0-33.0); MEAN CORPUSCULAR HGB CONC 32.7 g/dl (32.0-37.0); MEAN CORPUSCULAR VOLUME 92.8 fl (82.0-101.0); MEAN PLATELET VOLUME 12.6 fl (7.4-10.4); MONOCYTE # 0.6 10^3/ul (0.3-0.9); MONOCYTES % 4.6 % (0.0-11.0); NEUTROPHIL # 10.8 10^3/ul (1.6-7.5); NEUTROPHILS % 80.6 % (39.0-77.0); NUCLEATED RED BLOOD CELLS% 0.1 /100WBC (0.0-0.0); PLATELET COUNT 78 10^3/UL (140-415); RED BLOOD COUNT 2.77 10^6/ul (4.70-6.10); RED CELL DISTRIBUTION WIDTH 16.2 % (11.5-14.5); WHITE BLOOD COUNT 13.4 10^3/ul (4.8-10.8)
[2016-06-26 07:07] LABS: ALBUMIN 1.9 g/dl (3.3-4.9); POTASSIUM 3.2 mmol/L (3.5-5.1)
[2016-06-26 07:09] LABS: CREATININE 1.65 mg/dl (0.61-1.24)
[2016-06-26 07:10] LABS: ALBUMIN/GLOBULIN RATIO 0.65; BILIRUBIN,INDIRECT 0.3 mg/dl (0-1.1); BILIRUBIN,TOTAL 0.3 mg/dl (0.2-1.3); TOTAL PROTEIN 4.8 g/dl (6.1-8.1)
[2016-06-26] MEDS: LINEZOLID 600 MG/D5W (PMX) 300 ML IVPB SCH ×2 (08:30→20:35)
[2016-06-26] MEDS: ZINC SULFATE 220 MG CAP GTB SCH (08:30)
[2016-06-26] MEDS: ASPIRIN 325 MG TAB GTB SCH (08:30)
[2016-06-26] MEDS: MUPIROCIN 2% 22 GM OINT TOP SCH ×2 (08:30→20:35)
[2016-06-26] MEDS: MULTIVITAMINS 5 ML CUP GTB SCH (08:30)
[2016-06-26] MEDS: ATENOLOL 25 MG TAB PO SCH (08:31)
[2016-06-26] MEDS: ASCORBIC ACID 500 MG TAB GTB SCH (08:31)
[2016-06-26] MEDS: ENOXAPARIN 40 MG/0.4 ML SYG SC SCH (08:36)
[2016-06-26] MEDS: MIDODRINE 5 MG TAB GTB SCH ×3 (08:37→17:05)
[2016-06-26] MEDS: COLLAGENASE 30 GM TUBE TOP SCH (08:38)
[2016-06-26] MEDS ORDERED: POTASSIUM CHLORIDE 20 MEQ POWDER FOR ORAL SOLN GTB ONE (10:30)
--- NOTE | 2016-06-26 10:47 | PN ---
Date/Time of Note Date/Time of Note DATE: 06/25/16 TIME: 19:46 Assessment/Plan Lines/Catheters IV Catheter Type (from [facility]): PICC Line Alfonso in Place (from [facility]): Yes Assessment/Plan Chief Complaint/Hosp Course 1. Contained perforated viscous s/p IR drain 06/11. Cx noted. Leukocytosis resolved. Tube feeds started. Bowel function. Drain dcd. s/p Abx. 2. Pneumonia -pulmonary toilette -abx 3. Sepsis, significant leukocytosis. Improving -abx -as above 4. Sacral decubitus ulcer -off load -nutrition optimization -vit c -local care 5. Chronic AFib -rate control -optimize electrolytes -tx infections 6. Anemia -monitor 7. Hypoalbuminemia -eventual nutritional optimization 8. CHF -judicious fluid management -cardiac optimization Thank you, Late entry 06/25 Problems: Subjective 24 Hr Interval Summary No f/c. No cough. No sz. No rashes. No bloating. No vomiting. No bleeding. Leukocytosis resolved. TFs. Bowel function. Drain removed. Exam/Review of Systems Vital Signs Vitals Vital Signs Date Time Temp Pulse Resp B/P Pulse Ox O2 Delivery O2 Flow Rate FiO2 06/26/16 09:28 30 06/26/16 09:04 83 33 100 06/26/16 07:16 98.6 92/46 Intake and Output 06/25/16 06/25/16 06/26/16 15:00 23:00 07:00 Intake Total 100 ml 2390 ml 1140 ml Output Total 900 ml 1500 ml Balance 100 ml 1490 ml -360 ml Exam Free Text/Dictation Constitutional: No alert, No distress, No oriented Psych: confusion, No anxiety Head: atraumatic, normocephalic Eyes: PERRL, nl conjunctiva, No icteric ENMT: mucosa pink and moist, nl external ears & nose, nl lips & teeth Neck: jvd (min), non-tender Respiratory: No congested cough, No labored breathing Cardiovascular: No edema, No regular rate and rhythm Gastrointestinal: soft, PEG No distended, No firm, No rebound or guarding Musculoskeletal: No joint tenderness, No nl gait and stance Extremities: No calf tenderness, No cyanosis Neurological: No nl mental status, No nl speech, No nl strength Skin: nl turgor, rash or lesions (Sacral and LE decubitus ulcerations), No diaphoresis Lymph: nl lymph nodes Results Result Diagram: 06/26/1659906/26/16599 DAREK AHMADI MD June 26, 2016 10:47
--- NOTE | 2016-06-26 10:55 | PN ---
Date/Time of Note Date/Time of Note DATE: 06/26/16 TIME: 10:49 Assessment/Plan Lines/Catheters IV Catheter Type (from [facility]): PICC Line Alfonso in Place (from [facility]): Yes Assessment/Plan Chief Complaint/Hosp Course 1. Contained perforated viscous s/p IR drain 06/11. Cx noted. Leukocytosis resolved. Tube feeds started. Bowel function. Drain dcd. s/p Abx. WBC slowly increasing again. -? paredes cx and scan 2. Pneumonia -pulmonary toilette -abx 3. Sepsis, significant leukocytosis. Improving -abx -as above 4. Sacral decubitus ulcer -off load -nutrition optimization -vit c -local care 5. Chronic AFib -rate control -optimize electrolytes -tx infections 6. Anemia, dropped again -? source -? tx 7. Hypoalbuminemia -eventual nutritional optimization 8. CHF -judicious fluid management -cardiac optimization Thank you, Problems: Subjective 24 Hr Interval Summary No f/c. No cough. No sz. No rashes. No bloating. No vomiting. No bleeding. Leukocytosis. TFs. Bowel function. Exam/Review of Systems Vital Signs Vitals Vital Signs Date Time Temp Pulse Resp B/P Pulse Ox O2 Delivery O2 Flow Rate FiO2 06/26/16 09:28 30 06/26/16 09:04 83 33 100 06/26/16 07:16 98.6 92/46 Intake and Output 06/25/16 06/25/16 06/26/16 15:00 23:00 07:00 Intake Total 100 ml 2390 ml 1140 ml Output Total 900 ml 1500 ml Balance 100 ml 1490 ml -360 ml Exam Free Text/Dictation Constitutional: No alert, No distress, No oriented Psych: confusion, No anxiety Head: atraumatic, normocephalic Eyes: PERRL, nl conjunctiva, No icteric ENMT: mucosa pink and moist, nl external ears & nose, nl lips & teeth Neck: jvd (min), non-tender Respiratory: No congested cough, No labored breathing Cardiovascular: No edema, No regular rate and rhythm Gastrointestinal: soft, PEG No distended, No firm, No rebound or guarding Musculoskeletal: No joint tenderness, No nl gait and stance Extremities: No calf tenderness, No cyanosis Neurological: No nl mental status, No nl speech, No nl strength Skin: nl turgor, rash or lesions (Sacral and LE decubitus ulcerations), No diaphoresis Lymph: nl lymph nodes Results Result Diagram: 06/26/1659906/26/16599 DAREK AHMADI MD June 26, 2016 10:55
--- NOTE | 2016-06-26 11:34 | CONS ---
Date/Time of Note Date/Time of Note DATE: 06/26/16 TIME: 11:33 Consultation Date/Type/Reason Admit Date/Time Jun 06, 2016 at 08:08 Initial Consult Date 06/07/16 Type of Consultation: pulmnoary Referring Provider: HOLLI LINDER MD 24 HR Interval Summary Free Text/Dictation dictated. Exam/Review of Systems Vital Signs Vitals Vital Signs Date Time Temp Pulse Resp B/P Pulse Ox O2 Delivery O2 Flow Rate FiO2 06/26/16 11:07 111 36 99 50 06/26/16 07:16 98.6 92/46 Intake and Output 06/25/16 06/25/16 06/26/16 15:00 23:00 07:00 Intake Total 100 ml 2390 ml 1140 ml Output Total 900 ml 1500 ml Balance 100 ml 1490 ml -360 ml Results Result Diagram: 06/26/16 0600 06/26/16 0600 Results 24 hrs Laboratory Tests Test 06/25/16 12:40 06/25/16 17:28 06/25/16 22:25 06/26/16 00:03 Bedside Glucose 109 101 105 White Blood Count 12.8 H Red Blood Count 2.53 L Hemoglobin 7.8 #L Hematocrit 23.7 #L Mean Corpuscular Volume 93.7 Mean Corpuscular Hemoglobin 30.8 Mean Corpuscular Hemoglobin Concent 32.9 Red Cell Distribution Width 15.9 H Platelet Count 72 L Mean Platelet Volume 12.3 H Neutrophils % 86.0 H Band Neutrophils % 4.0 Lymphocytes % 5.0 L Monocytes % 4.0 Eosinophils % 1.0 Neutrophils # 11.0 H Lymphocytes # 0.6 L Monocytes # 0.5 Eosinophils # 0.1 Platelet Estimate PLT APPEAR DECREASED Large Platelets OCCASIONAL Test 06/26/16 06:00 06/26/16 06:02 White Blood Count 13.4 H Red Blood Count 2.77 L Hemoglobin 8.4 L Hematocrit 25.7 L Mean Corpuscular Volume 92.8 Mean Corpuscular Hemoglobin 30.3 Mean Corpuscular Hemoglobin Concent 32.7 Red Cell Distribution Width 16.2 H Platelet Count 78 L Mean Platelet Volume 12.6 H Neutrophils % 80.6 H Lymphocytes % 10.0 L Monocytes % 4.6 Eosinophils % 3.1 Basophils % 0.4 Nucleated Red Blood Cells % 0.1 H Neutrophils # 10.8 H Lymphocytes # 1.3 Monocytes # 0.6 Eosinophils # 0.4 Basophils # 0.1 Nucleated Red Blood Cells # 0.0 Sodium Level 129 L Potassium Level 3.2 L Chloride Level 102 Carbon Dioxide Level 16 L Anion Gap 14 Blood Urea Nitrogen 35 H Creatinine 1.65 H Glucose Level 75 Calcium Level 7.0 L Total Bilirubin 0.3 Direct Bilirubin 0.00 Indirect Bilirubin 0.3 Aspartate Amino Transf (AST/SGOT) 31 Alanine Aminotransferase (ALT/SGPT) 28 Alkaline Phosphatase 143 H Total Protein 4.8 L Albumin 1.9 L Globulin 2.90 Albumin/Globulin Ratio 0.65 Bedside Glucose 79 Medications Medications Current Medications Naloxone HCl (Narcan) 0.4 mg Q3M PRN IV DECREASED REPIRATORY RATE; Start at 10:30 Ondansetron HCl (Zofran Inj) 4 mg Q6H PRN IV NAUSEA AND/OR VOMITING; Start 01/12 at 10:30 Nitroglycerin (Nitroglycerin (Sl Tab) 0.4 Mg) 1 tab Q5M PRN SL CHEST PAIN; Start 06/06/16 at 10:30 Acetaminophen (Tylenol Liquid) 650 mg Q6H PRN PO PAIN LEVEL 1-3 OR FEVER; Start 06/06/16 at 10:30 Morphine Sulfate (morphine) 2 mg Q4H PRN IV PAIN LEVEL 7-10 Last administered on 06/15/16 00:22; Admin Dose 2 MG; Start 06/06/16 at 10:30 Docusate Sodium (Colace) 100 mg Q12H PRN PO CONSTIPATION; Start 06/06/16 at 10: 30 Magnesium Hydroxide (Milk Of Mag) 30 ml DAILY PRN PO CONSTIPATION; Start at 10:30 Bisacodyl (Dulcolax) 5 mg DAILY PRN PO CONSTIPATION; Start 06/06/16 at 10:30 Pantoprazole (Protonix Iv) 40 mg DAILY@06 IV Last administered on 06/26/16 06: 03; Admin Dose 40 MG; Start 06/07/16 at 06:00 Enoxaparin Sodium (Lovenox) 40 mg DAILY SC Last administered on 06/26/16 08:36 ; Admin Dose 40 MG; Start 06/07/16 at 09:00 Collagenase (Santyl) 1 applic DAILY TOP Last administered on 06/26/16 08:38; Admin Dose 1 APPLIC; Start 06/07/16 at 09:00 Collagenase (Santyl) 1 applic PRN PRN TOP WOUND CARE; Start 06/06/16 at 16:00 IV Flush (NS 10 ml) 10 ml PRN PRN IV IV PROTOCOL; Start 06/06/16 at 18:30 Ascorbic Acid (Vitamin C) 500 mg DAILY GTB Last administered on 06/26/16 08:31 ; Admin Dose 500 MG; Start 06/07/16 at 09:00 Aspirin (Aspirin) 325 mg DAILY GTB Last administered on 06/26/16 08:30; Admin Dose 325 MG; Start 06/07/16 at 09:00 Multivitamins (Thera-Plus) 5 ml DAILY GTB Last administered on 06/26/16 08:30; Admin Dose 5 ML; Start 06/07/16 at 09:00 Tamsulosin HCl (Flomax) 0.4 mg HS PO Last administered on 06/25/16 21:33; Admin Dose 0.4 MG; Start 06/07/16 at 21:00 Zinc Sulfate (Zinc Sulfate) 220 mg DAILY GTB Last administered on 06/26/16 08: 30; Admin Dose 220 MG; Start 06/07/16 at 09:00 Mupirocin (Bactroban) 1 applic BID TOP Last administered on 06/26/16 08:30; Admin Dose 1 APPLIC; Start 06/07/16 at 21:00 Metoclopramide HCl (Reglan) 10 mg Q6H PRN IV NAUSEA AND/OR VOMITING Last administered on 06/08/16 18:00; Admin Dose 10 MG; Start 06/08/16 at 09:30 Lorazepam 1 mg 1 mg Q6H PRN IV AGITATION/ANXIETY Last administered on 12:34; Admin Dose 1 MG; Start 06/09/16 at 13:30 Linezolid 300 ml @ 300 mls/hr Q12 IVPB Last administered on 06/26/16 08:30; Admin Dose 300 MLS/HR; Start 06/14/16 at 21:00 Metronidazole (Flagyl 500 Mg (Pmx)) 100 ml @ 100 mls/hr Q6 IVPB Last administered on 06/26/16 06:03; Admin Dose 100 MLS/HR; Start 06/14/16 at 18:00 Furosemide (Lasix) 20 mg DAILY@06 IV Last administered on 06/22/16 05:39; Admin Dose 20 MG; Start 06/19/16 at 06:00; Status Future Hold Atenolol (Tenormin) 12.5 mg DAILY PO ; Start 06/25/16 at 09:00 Diagnostic Test (Pha) (Accu-Chek) 1 ea Q6 XX Last administered on 06/26/16 06: 54; Admin Dose 1 EA; Start 06/25/16 at 18:00 Midodrine 5 mg 5 mg TID@,,17 GTB Last administered on 06/26/16 08:37; Admin Dose 5 MG; Start 06/25/16 at 17:00 Colistimethate Sodium/Sodium Chloride (Coly-Mycin/NS) 100 ml @ 200 mls/hr Q24H IVPB ; Start 06/26/16 at 21:00 GERALDINE CUNNINGHAM June 26, 2016 11:34
--- NOTE | 2016-06-26 14:24 | CONS ---
Date/Time of Note Date/Time of Note DATE: 06/26/16 TIME: 14:22 Assessment/Plan Assessment/Plan Chief Complaint/Hosp Course IMp: 1.CHF-systolic acute on chonic-reasonable volume status at this time 2.Resp failure s/p trach on vent 3.Cardiomyopathy-LVEF 25-30% 4.HTN-with episodes of borderline Hotn and now on midodrine 5.PPM-s/p interrogation with proper function-episodes of SVT and short episode VT 06/09/16/good battery life 6.Leukocytosis 7.Tachycardia-PAF/AFL rate controlled 8.Perforated viscous s/p IR drain placement 9. Renal insuff-? overdiuresis Recc: -Tele -Follow BP/Volume status closely and will continue hold lasix given development of renal insuff -Continue abx's and f/u cx data -Continue atenolol as tolerated/possible only -Continue asa/low dose lovenox -Continue abx's/f/u cx data -Follow IR drainage output -Palliative care following -Now on midodrine BP support as necessary Problems: Consultation Date/Type/Reason Admit Date/Time Jun 06, 2016 at 08:08 Initial Consult Date 06/07/16 Type of Consultation: Cardiology Reason for Consultation CHF/cardiomyopathy Referring Provider: HOLLI LINDER MD Exam/Review of Systems Vital Signs Vitals Vital Signs Date Time Temp Pulse Resp B/P Pulse Ox O2 Delivery O2 Flow Rate FiO2 06/26/16 13:21 92 38 96 50 06/26/16 12:00 98.8 97/56 Intake and Output 06/25/16 06/25/16 06/26/16 15:00 23:00 07:00 Intake Total 100 ml 2390 ml 1140 ml Output Total 900 ml 1500 ml Balance 100 ml 1490 ml -360 ml Exam Review of Systems: CONSTITUTIONAL: No fevers, chills. PULMONARY: trached CARDIOVASCULAR: No obvious chest pain/palpitations GASTROINTESTINAL: No nausea/vomiting. GENITOURINARY: No hematuria/dysuria. MUSCULOSKELETAL: No obvious myagias/arthalgias. PSYCHIATRIC: The patient denies depression. NEUROLOGIC: encephalopathic Constitutional: other (encephalopathic) Psych: no complaints Head: normocephalic ENMT: mucosa pink and moist Neck: jvd (9 cm water), supple Respiratory: other (upper airawy rhoncherous sounds) Cardiovascular: regular rate and rhythm Gastrointestinal: non-tender, soft Musculoskeletal: muscle weakness (generalized) Extremities: edema (none) Neurological: confused, lethargic Results Result Diagram: 06/26/16 0600 06/26/16 0600 Results 24 hrs Laboratory Tests Test 06/25/16 17:28 06/25/16 22:25 06/26/16 00:03 06/26/16 06:00 Bedside Glucose 101 105 White Blood Count 12.8 H 13.4 H Red Blood Count 2.53 L 2.77 L Hemoglobin 7.8 #L 8.4 L Hematocrit 23.7 #L 25.7 L Mean Corpuscular Volume 93.7 92.8 Mean Corpuscular Hemoglobin 30.8 30.3 Mean Corpuscular Hemoglobin Concent 32.9 32.7 Red Cell Distribution Width 15.9 H 16.2 H Platelet Count 72 L 78 L Mean Platelet Volume 12.3 H 12.6 H Neutrophils % 86.0 H 80.6 H Band Neutrophils % 4.0 Lymphocytes % 5.0 L 10.0 L Monocytes % 4.0 4.6 Eosinophils % 1.0 3.1 Neutrophils # 11.0 H 10.8 H Lymphocytes # 0.6 L 1.3 Monocytes # 0.5 0.6 Eosinophils # 0.1 0.4 Platelet Estimate PLT APPEAR DECREASED Large Platelets OCCASIONAL Basophils % 0.4 Nucleated Red Blood Cells % 0.1 H Basophils # 0.1 Nucleated Red Blood Cells # 0.0 Sodium Level 129 L Potassium Level 3.2 L Chloride Level 102 Carbon Dioxide Level 16 L Anion Gap 14 Blood Urea Nitrogen 35 H Creatinine 1.65 H Glucose Level 75 Calcium Level 7.0 L Total Bilirubin 0.3 Direct Bilirubin 0.00 Indirect Bilirubin 0.3 Aspartate Amino Transf (AST/SGOT) 31 Alanine Aminotransferase (ALT/SGPT) 28 Alkaline Phosphatase 143 H Total Protein 4.8 L Albumin 1.9 L Globulin 2.90 Albumin/Globulin Ratio 0.65 Test 06/26/16 06:02 06/26/16 12:18 Bedside Glucose 79 117 Medications Medications Current Medications Naloxone HCl (Narcan) 0.4 mg Q3M PRN IV DECREASED REPIRATORY RATE; Start at 10:30 Ondansetron HCl (Zofran Inj) 4 mg Q6H PRN IV NAUSEA AND/OR VOMITING; Start 01/12 at 10:30 Nitroglycerin (Nitroglycerin (Sl Tab) 0.4 Mg) 1 tab Q5M PRN SL CHEST PAIN; Start 06/06/16 at 10:30 Acetaminophen (Tylenol Liquid) 650 mg Q6H PRN PO PAIN LEVEL 1-3 OR FEVER; Start 06/06/16 at 10:30 Morphine Sulfate (morphine) 2 mg Q4H PRN IV PAIN LEVEL 7-10 Last administered on 06/15/16 00:22; Admin Dose 2 MG; Start 06/06/16 at 10:30 Docusate Sodium (Colace) 100 mg Q12H PRN PO CONSTIPATION; Start 06/06/16 at 10: 30 Magnesium Hydroxide (Milk Of Mag) 30 ml DAILY PRN PO CONSTIPATION; Start at 10:30 Bisacodyl (Dulcolax) 5 mg DAILY PRN PO CONSTIPATION; Start 06/06/16 at 10:30 Pantoprazole (Protonix Iv) 40 mg DAILY@06 IV Last administered on 06/26/16 06: 03; Admin Dose 40 MG; Start 06/07/16 at 06:00 Enoxaparin Sodium (Lovenox) 40 mg DAILY SC Last administered on 06/26/16 08:36 ; Admin Dose 40 MG; Start 06/07/16 at 09:00 Collagenase (Santyl) 1 applic DAILY TOP Last administered on 06/26/16 08:38; Admin Dose 1 APPLIC; Start 06/07/16 at 09:00 Collagenase (Santyl) 1 applic PRN PRN TOP WOUND CARE; Start 06/06/16 at 16:00 IV Flush (NS 10 ml) 10 ml PRN PRN IV IV PROTOCOL; Start 06/06/16 at 18:30 Ascorbic Acid (Vitamin C) 500 mg DAILY GTB Last administered on 06/26/16 08:31 ; Admin Dose 500 MG; Start 06/07/16 at 09:00 Aspirin (Aspirin) 325 mg DAILY GTB Last administered on 06/26/16 08:30; Admin Dose 325 MG; Start 06/07/16 at 09:00 Multivitamins (Thera-Plus) 5 ml DAILY GTB Last administered on 06/26/16 08:30; Admin Dose 5 ML; Start 06/07/16 at 09:00 Tamsulosin HCl (Flomax) 0.4 mg HS PO Last administered on 06/25/16 21:33; Admin Dose 0.4 MG; Start 06/07/16 at 21:00 Zinc Sulfate (Zinc Sulfate) 220 mg DAILY GTB Last administered on 06/26/16 08: 30; Admin Dose 220 MG; Start 06/07/16 at 09:00 Mupirocin (Bactroban) 1 applic BID TOP Last administered on 06/26/16 08:30; Admin Dose 1 APPLIC; Start 06/07/16 at 21:00 Metoclopramide HCl (Reglan) 10 mg Q6H PRN IV NAUSEA AND/OR VOMITING Last administered on 06/08/16 18:00; Admin Dose 10 MG; Start 06/08/16 at 09:30 Lorazepam 1 mg 1 mg Q6H PRN IV AGITATION/ANXIETY Last administered on 12:34; Admin Dose 1 MG; Start 06/09/16 at 13:30 Linezolid 300 ml @ 300 mls/hr Q12 IVPB Last administered on 06/26/16 08:30; Admin Dose 300 MLS/HR; Start 06/14/16 at 21:00 Metronidazole (Flagyl 500 Mg (Pmx)) 100 ml @ 100 mls/hr Q6 IVPB Last administered on 06/26/16 12:16; Admin Dose 100 MLS/HR; Start 06/14/16 at 18:00 Furosemide (Lasix) 20 mg DAILY@06 IV Last administered on 06/22/16 05:39; Admin Dose 20 MG; Start 06/19/16 at 06:00; Status Future Hold Atenolol (Tenormin) 12.5 mg DAILY PO ; Start 06/25/16 at 09:00 Diagnostic Test (Pha) (Accu-Chek) 1 ea Q6 XX Last administered on 06/26/16 06: 54; Admin Dose 1 EA; Start 06/25/16 at 18:00 Midodrine 5 mg 5 mg TID@,13,17 GTB Last administered on 06/26/16 12:16; Admin Dose 5 MG; Start 06/25/16 at 17:00 Colistimethate Sodium/Sodium Chloride (Coly-Mycin/NS) 100 ml @ 200 mls/hr Q24H IVPB ; Start 06/26/16 at 21:00 JAYA GORE June 26, 2016 14:24
--- NOTE | 2016-06-26 14:46 | PN ---
DATE: 06/26/2016 PULMONARY PROGRESS NOTE TIME: 11:30 a.m. SUBJECTIVE: Mr. Maravillas condition remains unchanged; however, he has remained hemodynamically stabl e and remains essentially unresponsive, the patient has been in his underlying mental status. GENERAL: Remains currently in no distress. VITAL SIGNS: Temperature is 98.6 degrees Fahrenheit, heart rate 82, blood pressure is 92/46, respir atory rate is 20 per minute, O2 sat 100%. HEENT: Supple neck. Tracheostomy in place, midline trachea, no thyromegaly. Patient has bilateral c orneal opacities. He is edentulous. CHEST: Diminished but clear breath sounds. HEART: S1, S2 audible, no murmurs, irregular rhythm. ABDOMEN: Soft, bowel sounds audible. G-tube in place, scaphoid. No organomegaly. EXTREMITIES: No edema. BACK: Reveals dressing applied over sacrum. NEURO: HAND GLUER AND SLICER exam, patient remains unresponsive. Ventilator settings AC of 14, tidal volume 400, PEEP of 50% FIO2. LABORATORY DATA: Labs today, sodium 129, potassium 3.2, chloride 102, bicarbonate 16, glucose 75. W gio count is 13.4, hemoglobin 8.4, platelet count of 78,000. MEDICATIONS: Reviewed. ASSESSMENT AND PLAN: 1. Patient admitted for severe sepsis from sacral decubitus ulcer. Currently on broad spectrum ant ibiotic coverage. 2. Advanced dementia. 3. Anemia, status post blood transfusion. No overt bleeding noted. 4. Cardiac arrhythmia. 5. Recent bowel perforation currently on TPN. No surgical intervention was done. 6. Chronic respiratory failure with multi-infarct dementia. RECOMMENDATIONS: Continue current treatment. Patient's prognosis remains extremely poor. Dictated By: GERALDINE DEL VALLE/NTS Conf#: [id number] DID#: [id number]
--- NOTE | 2016-06-26 15:26 | PN ---
DATE: 06/26/2016 SUBJECTIVE: Infectious disease progress note. Patient is lying comfortably in bed in no distress. No fevers overnight. WBC 13.4, H and H 8.4 and 25.7, platelets 78, neutrophils 80.6, BUN 35, creat inine 1.65. MICROBIOLOGY: Abdominal wall abscess on 06/11/2016 grew Klebsiella pneumoniae, multidrug vancomycin -resistant enterococcus and ____ as well as Bacteroides fragilis. INDWELLINGS: Trach, PEG, Alfonso, rectal tube and PICC line placed on 06/06/2016. ANTIMICROBIALS: The patient is on colistin, Zyvox and Flagyl. PHYSICAL EXAMINATION: GENERAL: This is a fragile, elderly man who is in no distress. HEENT: Head atraumatic, normocephalic. Sclerae anicteric. Buccal mucosa dry. NECK: Supple. Tracheostomy present. CHEST: Rise symmetrical. Breath sounds diminished to bases. HEART: S1, S2. ABDOMEN: Soft. Bowel tones hypoactive. EXTREMITIES: Without cyanosis. ASSESSMENT: 1. Content perforated viscus, status post drainage catheter placement that was discontinued, raven patterson on tube feedings. 2. Resolving pneumonia. 3. Resolving sepsis. 4. Chronic respiratory failure. 5. Status post urinary tract infection. 6. Status post methicillin-resistant Staphylococcus aureus bacteremia. PLAN: The patient remains stable, completing antibiotics. Will order chest x-ray in a.m., given in creasing white blood cell count and repeat urine cultures. Dictated By: JOSE G CUNNINGHAM ONLINE CONTENT EDITOR for RASHIDA HUSSEIN/TRACY Conf#: [id number] DID#: [id number]
--- NOTE | 2016-06-26 15:34 | RADRPT ---
PROCEDURE: XR Chest. CLINICAL INDICATION: Shortness of breath. TECHNIQUE: Single frontal view. COMPARISON: 06/17/2016. FINDINGS: The tracheostomy tube and right-sided dual lead permanent pacemaker are once again noted and appears satisfactory. There is atelectasis at the lung bases, worse than seen previously. The lungs are o therwise clear. Mild pulmonary edema is unchanged. The heart is mildly enlarged. There is no pleural effusion. There is no pneumothorax. IMPRESSION: 1. Worse appearance of the lung bases. 2. Mild pulmonary edema, unchanged. RPTAT: QQ .Henrik Reyna MD, MD Date Time Electronically viewed and signed by .Henrik Reyna MD, MD on 06/26/2016 15:34 .R/
--- NOTE | 2016-06-26 18:35 | PN ---
Date/Time of Note Date/Time of Note DATE: 06/26/16 TIME: 18:32 Assessment/Plan VTE Prophylaxis VTE Prophylaxis Intervention: other Lines/Catheters IV Catheter Type (from Nrs): PICC Line Central line still needed: Yes Urinary Cath still in place: Yes Reason Cath still needed: other (indicate) Assessment/Plan Chief Complaint/Hosp Course IMPRESSION: 1. Septic shock.better 2. Pneumonia. aspiration 3. Leukocytosis.better 4. Hematuria. better 5. Lactic acidosis. 6. Respiratory failure. 7. Gastrostomy tube placement. 8. Anemia. 9. Atrial fibrillation. 10. History of congestive heart failure with decreased ejection fraction. 11. vdrf 12. History of paroxysmal atrial fibrillation. 13. The patient now has decubitus. 14 uti 15 In the left anterior mid pelvis there is an approximate 6.3 x 3.2 x 4.7 cm air and fluid collection not definitely bowel suspicious for an abscess/ localized perforation. Diverticula in sigmoid and descending colon. Small amount of ascites. on peg feeding 15 polymirobial sepsis 16 pul edema BETTER 17 no gi bleed 18 hypokalemia 19 diarrhea plan antibiotic per id weaning per pulmonary and cardio surgery consult GT FEEDING tpn taper per id kcl bicitra snf when stable Problems: Subjective 24 Hr Interval Summary Subjective hx not possible: other (diarrhea+) Exam/Review of Systems Vital Signs Vitals Vital Signs Date Time Temp Pulse Resp B/P Pulse Ox O2 Delivery O2 Flow Rate FiO2 06/26/16 17:38 99 32 98 50 06/26/16 16:33 98.6 123/53 Intake and Output 06/25/16 06/25/16 06/26/16 15:00 23:00 07:00 Intake Total 100 ml 2390 ml 1140 ml Output Total 900 ml 1500 ml Balance 100 ml 1490 ml -360 ml Exam Neck: supple Respiratory: clear to auscultation Cardiovascular: regular rate and rhythm Gastrointestinal: bowel sounds (+), soft Extremities: No edema Results Result Diagram: 06/26/16 0600 06/26/16 0600 Results 24 hrs Laboratory Tests Test 06/25/16 22:25 06/26/16 00:03 06/26/16 06:00 06/26/16 06:02 White Blood Count 12.8 H 13.4 H Red Blood Count 2.53 L 2.77 L Hemoglobin 7.8 #L 8.4 L Hematocrit 23.7 #L 25.7 L Mean Corpuscular Volume 93.7 92.8 Mean Corpuscular Hemoglobin 30.8 30.3 Mean Corpuscular Hemoglobin Concent 32.9 32.7 Red Cell Distribution Width 15.9 H 16.2 H Platelet Count 72 L 78 L Mean Platelet Volume 12.3 H 12.6 H Neutrophils % 86.0 H 80.6 H Band Neutrophils % 4.0 Lymphocytes % 5.0 L 10.0 L Monocytes % 4.0 4.6 Eosinophils % 1.0 3.1 Neutrophils # 11.0 H 10.8 H Lymphocytes # 0.6 L 1.3 Monocytes # 0.5 0.6 Eosinophils # 0.1 0.4 Platelet Estimate PLT APPEAR DECREASED Large Platelets OCCASIONAL Bedside Glucose 105 79 Basophils % 0.4 Nucleated Red Blood Cells % 0.1 H Basophils # 0.1 Nucleated Red Blood Cells # 0.0 Sodium Level 129 L Potassium Level 3.2 L Chloride Level 102 Carbon Dioxide Level 16 L Anion Gap 14 Blood Urea Nitrogen 35 H Creatinine 1.65 H Glucose Level 75 Calcium Level 7.0 L Total Bilirubin 0.3 Direct Bilirubin 0.00 Indirect Bilirubin 0.3 Aspartate Amino Transf (AST/SGOT) 31 Alanine Aminotransferase (ALT/SGPT) 28 Alkaline Phosphatase 143 H Total Protein 4.8 L Albumin 1.9 L Globulin 2.90 Albumin/Globulin Ratio 0.65 Test 06/26/16 12:18 06/26/16 17:06 Bedside Glucose 117 86 Medications Medications Current Medications Naloxone HCl (Narcan) 0.4 mg Q3M PRN IV DECREASED REPIRATORY RATE; Start at 10:30 Ondansetron HCl (Zofran Inj) 4 mg Q6H PRN IV NAUSEA AND/OR VOMITING; Start 01/12 at 10:30 Nitroglycerin (Nitroglycerin (Sl Tab) 0.4 Mg) 1 tab Q5M PRN SL CHEST PAIN; Start 06/06/16 at 10:30 Acetaminophen (Tylenol Liquid) 650 mg Q6H PRN PO PAIN LEVEL 1-3 OR FEVER; Start 06/06/16 at 10:30 Morphine Sulfate (morphine) 2 mg Q4H PRN IV PAIN LEVEL 7-10 Last administered on 06/15/16t 00:22; Admin Dose 2 MG; Start 06/06/16 at 10:30 Docusate Sodium (Colace) 100 mg Q12H PRN PO CONSTIPATION; Start 06/06/16 at 10: 30 Magnesium Hydroxide (Milk Of Mag) 30 ml DAILY PRN PO CONSTIPATION; Start at 10:30 Bisacodyl (Dulcolax) 5 mg DAILY PRN PO CONSTIPATION; Start 06/06/16 at 10:30 Pantoprazole (Protonix Iv) 40 mg DAILY@06 IV Last administered on 06/26/16 06: 03; Admin Dose 40 MG; Start 06/07/16 at 06:00 Enoxaparin Sodium (Lovenox) 40 mg DAILY SC Last administered on 06/26/16 08:36 ; Admin Dose 40 MG; Start 06/07/16 at 09:00 Collagenase (Santyl) 1 applic DAILY TOP Last administered on 06/26/16 08:38; Admin Dose 1 APPLIC; Start 06/07/16 at 09:00 Collagenase (Santyl) 1 applic PRN PRN TOP WOUND CARE; Start 06/06/16 at 16:00 IV Flush (NS 10 ml) 10 ml PRN PRN IV IV PROTOCOL; Start 06/06/16 at 18:30 Ascorbic Acid (Vitamin C) 500 mg DAILY GTB Last administered on 06/26/16 08:31 ; Admin Dose 500 MG; Start 06/07/16 at 09:00 Aspirin (Aspirin) 325 mg DAILY GTB Last administered on 06/26/16 08:30; Admin Dose 325 MG; Start 06/07/16 at 09:00 Multivitamins (Thera-Plus) 5 ml DAILY GTB Last administered on 06/26/16 08:30; Admin Dose 5 ML; Start 06/07/16 at 09:00 Tamsulosin HCl (Flomax) 0.4 mg HS PO Last administered on 06/25/16 21:33; Admin Dose 0.4 MG; Start 06/07/16 at 21:00 Zinc Sulfate (Zinc Sulfate) 220 mg DAILY GTB Last administered on 06/26/16 08: 30; Admin Dose 220 MG; Start 06/07/16 at 09:00 Mupirocin (Bactroban) 1 applic BID TOP Last administered on 06/26/16 08:30; Admin Dose 1 APPLIC; Start 06/07/16 at 21:00 Metoclopramide HCl (Reglan) 10 mg Q6H PRN IV NAUSEA AND/OR VOMITING Last administered on 06/08/16 18:00; Admin Dose 10 MG; Start 06/08/16 at 09:30 Lorazepam 1 mg 1 mg Q6H PRN IV AGITATION/ANXIETY Last administered on 12:34; Admin Dose 1 MG; Start 06/09/16 at 13:30 Linezolid 300 ml @ 300 mls/hr Q12 IVPB Last administered on 06/26/16 08:30; Admin Dose 300 MLS/HR; Start 06/14/16 at 21:00 Metronidazole (Flagyl 500 Mg (Pmx)) 100 ml @ 100 mls/hr Q6 IVPB Last administered on 06/26/16 17:05; Admin Dose 100 MLS/HR; Start 06/14/16 at 18:00 Furosemide (Lasix) 20 mg DAILY@06 IV Last administered on 06/22/16 05:39; Admin Dose 20 MG; Start 06/19/16 at 06:00; Status Future Hold Atenolol (Tenormin) 12.5 mg DAILY PO ; Start 06/25/16 at 09:00 Diagnostic Test (Pha) (Accu-Chek) 1 ea Q6 XX Last administered on 06/26/16 06: 54; Admin Dose 1 EA; Start 06/25/16 at 18:00 Midodrine 5 mg 5 mg TID@,,17 GTB Last administered on 06/26/16 17:05; Admin Dose 5 MG; Start 06/25/16 at 17:00 Colistimethate Sodium/Sodium Chloride (Coly-Mycin/NS) 100 ml @ 200 mls/hr Q24H IVPB ; Start 06/26/16 at 21:00 HOLLI LINDER MD June 26, 2016 18:35
[2016-06-26] MEDS: TAMSULOSIN (SR) 0.4 MG CAP PO SCH (20:34)
[2016-06-26] MEDS: CITRIC ACID/SODIUM CITRATE 15 ML CUP PO SCH (20:35)
[2016-06-26] MEDS ORDERED: COLISTIMETHATE 135 MG in SOD CHLORIDE 0.9% 100 ML IVPB SCH (21:00)
[2016-06-27] VITALS (26 sets, daily range): BP systolic 88–117; BP diastolic 49–61; PULSE 67–130; RESP 20–38
[2016-06-27] MEDS: ALBUTEROL 18 GM INHALER INH SCH ×5 (01:00→21:18)
[2016-06-27] MEDS: IPRATROPIUM (HFA) 12.9 GM INHALER INH SCH ×6 (01:00→21:18)
[2016-06-27] MEDS: ACCU-CHEK XX SCH ×3 (05:38→18:00)
[2016-06-27] MEDS: metroNIDAZOLE 500 MG/NS (PMX) 100 ML IVPB SCH ×2 (05:38→12:04)
[2016-06-27] MEDS: PANTOPRAZOLE 40 MG INJ IV SCH (05:38)
[2016-06-27 07:24] LABS: ADD SCAN DIFF NO
[2016-06-27 07:41] LABS: ABNORMAL IP MESSAGE 1; BASOPHILS % 0.2 % (0.0-2.0); EOSINOPHILS # 0.1 10^3/ul (0.0-0.5); EOSINOPHILS % 0.9 % (0.0-7.0); HEMATOCRIT 24.4 % (42.0-52.0); HEMOGLOBIN 8.1 g/dl (14.0-18.0); LYMPHOCYTES # 1.5 10^3/ul (0.8-2.9); LYMPHOCYTES % 9.7 % (15.0-51.0); MEAN CORPUSCULAR HEMOGLOBIN 30.7 pg (29.0-33.0); MEAN CORPUSCULAR HGB CONC 33.2 g/dl (32.0-37.0); MEAN CORPUSCULAR VOLUME 92.4 fl (82.0-101.0); MEAN PLATELET VOLUME 12.9 fl (7.4-10.4); MONOCYTE # 0.8 10^3/ul (0.3-0.9); MONOCYTES % 4.9 % (0.0-11.0); NEUTROPHIL # 12.9 10^3/ul (1.6-7.5); NEUTROPHILS % 83.2 % (39.0-77.0); PLATELET COUNT 83 10^3/UL (140-415); RED BLOOD COUNT 2.64 10^6/ul (4.70-6.10); RED CELL DISTRIBUTION WIDTH 16.6 % (11.5-14.5); WHITE BLOOD COUNT 15.4 10^3/ul (4.8-10.8)
[2016-06-27 07:57] LABS: ALBUMIN 1.9 g/dl (3.3-4.9); ALBUMIN/GLOBULIN RATIO 0.65; BILIRUBIN,DIRECT 0.3 mg/dl (0.00-0.20); BILIRUBIN,INDIRECT 0.2 mg/dl (0-1.1); BILIRUBIN,TOTAL 0.5 mg/dl (0.2-1.3); CREATININE 1.59 mg/dl (0.61-1.24); POTASSIUM 3.8 mmol/L (3.5-5.1); TOTAL PROTEIN 4.8 g/dl (6.1-8.1)
[2016-06-27] MEDS: ATENOLOL 25 MG TAB PO SCH (09:00)
[2016-06-27] MEDS: LINEZOLID 600 MG/D5W (PMX) 300 ML IVPB SCH (09:49)
[2016-06-27] MEDS: ZINC SULFATE 220 MG CAP GTB SCH (09:50)
[2016-06-27] MEDS: COLLAGENASE 30 GM TUBE TOP SCH ×2 (09:50→15:23)
[2016-06-27] MEDS: ASCORBIC ACID 500 MG TAB GTB SCH (09:50)
[2016-06-27] MEDS: MIDODRINE 5 MG TAB GTB SCH ×3 (09:51→18:00)
[2016-06-27] MEDS: CITRIC ACID/SODIUM CITRATE 15 ML CUP PO SCH ×2 (09:51→20:34)
[2016-06-27] MEDS: ASPIRIN 325 MG TAB GTB SCH (09:51)
[2016-06-27] MEDS: MULTIVITAMINS 5 ML CUP GTB SCH (09:52)
[2016-06-27] MEDS: MUPIROCIN 2% 22 GM OINT TOP SCH ×2 (09:53→20:34)
[2016-06-27] MEDS: ENOXAPARIN 40 MG/0.4 ML SYG SC SCH (10:09)
--- NOTE | 2016-06-27 10:51 | CONS ---
Date/Time of Note Date/Time of Note DATE: 06/27/16 TIME: 10:49 Assessment/Plan Assessment/Plan Additional Assessment/Plan Ventilator settings; AC of 14, tidal volume 400, PEEP of 5, 50% FiO2. Assessment recommendations; next 1. Patient admitted for severe sepsis from severe decubitus ulcers, currently on broad-spectrum antibiotic coverage. 2. Anemia. 3. Advanced dementia. 4. Recent bowel perforation, treated conservatively. Patient currently on TPN. 5. Chronic respiratory failure, ventilator dependent. Continue current treatment. Prognosis is very poor. Consultation Date/Type/Reason Admit Date/Time Jun 06, 2016 at 08:08 Initial Consult Date 06/07/16 Type of Consultation: Pulmonary Referring Provider: HOLLI LINDER MD 24 HR Interval Summary Free Text/Dictation Patient condition remains stable. Remains unresponsive due to underlying advanced dementia. Has remained hemodynamically stable. General exam; elderly male, on ventilator via tracheostomy currently in no distress. Unresponsive. Exam/Review of Systems Vital Signs Vitals Vital Signs Date Time Temp Pulse Resp B/P Pulse Ox O2 Delivery O2 Flow Rate FiO2 06/27/16 09:45 55 30 97 50 06/27/16 08:17 98.6 98/60 Intake and Output 06/26/16 06/26/16 06/27/16 14:59 22:59 06:59 Intake Total 1100 ml 1140 ml Output Total 800 ml 900 ml Balance 300 ml 240 ml Exam HEENT examination; supple neck, no JVD. No lymphadenopathy. Midline trachea. No thyromegaly. Tracheostomy in place with clean insertion site. Patient is edentulous. Has bilateral corneal opacities. Chest examination; diminished but clear vessel. S1-S2 audible, no murmurs. Abdomen examination; soft, G-tube in place. No organomegaly. Bowel sounds are absent. Extremity examination; no peripheral edema. Back examination; dressing applied over sacrum. DIRECTOR DIG[employer] MARKETING examination; patient remains unresponsive. Results Result Diagram: 06/27/16 0655 06/27/16 0645 Results 24 hrs Laboratory Tests Test 06/26/16 12:18 06/26/16 17:06 06/26/16 23:21 06/27/16 05:37 Bedside Glucose 117 86 121 83 Test 06/27/16 06:45 06/27/16 06:55 Sodium Level 127 L Potassium Level 3.8 Chloride Level 103 Carbon Dioxide Level 15 L Anion Gap 13 Blood Urea Nitrogen 37 H Creatinine 1.59 H Glucose Level 71 Calcium Level 7.0 L Total Bilirubin 0.5 Direct Bilirubin 0.30 #H Indirect Bilirubin 0.2 Aspartate Amino Transf (AST/SGOT) 30 Alanine Aminotransferase (ALT/SGPT) 37 Alkaline Phosphatase 133 H Total Protein 4.8 L Albumin 1.9 L Globulin 2.90 Albumin/Globulin Ratio 0.65 White Blood Count 15.4 H Red Blood Count 2.64 L Hemoglobin 8.1 L Hematocrit 24.4 L Mean Corpuscular Volume 92.4 Mean Corpuscular Hemoglobin 30.7 Mean Corpuscular Hemoglobin Concent 33.2 Red Cell Distribution Width 16.6 H Platelet Count 83 L Mean Platelet Volume 12.9 H Neutrophils % 83.2 H Lymphocytes % 9.7 L Monocytes % 4.9 Eosinophils % 0.9 Basophils % 0.2 Nucleated Red Blood Cells % 0.0 Neutrophils # 12.9 H Lymphocytes # 1.5 Monocytes # 0.8 Eosinophils # 0.1 Basophils # 0.0 Nucleated Red Blood Cells # 0.0 Medications Medications Current Medications Naloxone HCl (Narcan) 0.4 mg Q3M PRN IV DECREASED REPIRATORY RATE; Start at 10:30 Ondansetron HCl (Zofran Inj) 4 mg Q6H PRN IV NAUSEA AND/OR VOMITING; Start 01/12 at 10:30 Nitroglycerin (Nitroglycerin (Sl Tab) 0.4 Mg) 1 tab Q5M PRN SL CHEST PAIN; Start 06/06/16 at 10:30 Acetaminophen (Tylenol Liquid) 650 mg Q6H PRN PO PAIN LEVEL 1-3 OR FEVER; Start 06/06/16 at 10:30 Morphine Sulfate (morphine) 2 mg Q4H PRN IV PAIN LEVEL 7-10 Last administered on 06/15/16t 00:22; Admin Dose 2 MG; Start 06/06/16 at 10:30 Docusate Sodium (Colace) 100 mg Q12H PRN PO CONSTIPATION; Start 06/06/16 at 10: 30 Magnesium Hydroxide (Milk Of Mag) 30 ml DAILY PRN PO CONSTIPATION; Start at 10:30 Bisacodyl (Dulcolax) 5 mg DAILY PRN PO CONSTIPATION; Start 06/06/16 at 10:30 Pantoprazole (Protonix Iv) 40 mg DAILY@06 IV Last administered on 06/27/16 05: 38; Admin Dose 40 MG; Start 06/07/16 at 06:00 Enoxaparin Sodium (Lovenox) 40 mg DAILY SC Last administered on 06/27/16 10:09 ; Admin Dose 40 MG; Start 06/07/16 at 09:00 Collagenase (Santyl) 1 applic DAILY TOP Last administered on 06/26/16 08:38; Admin Dose 1 APPLIC; Start 06/07/16 at 09:00 Collagenase (Santyl) 1 applic PRN PRN TOP WOUND CARE; Start 06/06/16 at 16:00 IV Flush (NS 10 ml) 10 ml PRN PRN IV IV PROTOCOL; Start 06/06/16 at 18:30 Ascorbic Acid (Vitamin C) 500 mg DAILY GTB Last administered on 06/27/16 09:50 ; Admin Dose 500 MG; Start 06/07/16 at 09:00 Aspirin (Aspirin) 325 mg DAILY GTB Last administered on 06/27/16 09:51; Admin Dose 325 MG; Start 06/07/16 at 09:00 Multivitamins (Thera-Plus) 5 ml DAILY GTB Last administered on 06/27/16 09:52; Admin Dose 5 ML; Start 06/07/16 at 09:00 Tamsulosin HCl (Flomax) 0.4 mg HS PO Last administered on 06/26/16 20:34; Admin Dose 0.4 MG; Start 06/07/16 at 21:00 Zinc Sulfate (Zinc Sulfate) 220 mg DAILY GTB Last administered on 06/27/16 09: 50; Admin Dose 220 MG; Start 06/07/16 at 09:00 Mupirocin (Bactroban) 1 applic BID TOP Last administered on 06/27/16 09:53; Admin Dose 1 APPLIC; Start 06/07/16 at 21:00 Metoclopramide HCl (Reglan) 10 mg Q6H PRN IV NAUSEA AND/OR VOMITING Last administered on 06/08/16 18:00; Admin Dose 10 MG; Start 06/08/16 at 09:30 Lorazepam 1 mg 1 mg Q6H PRN IV AGITATION/ANXIETY Last administered on 12:34; Admin Dose 1 MG; Start 06/09/16 at 13:30 Linezolid 300 ml @ 300 mls/hr Q12 IVPB Last administered on 06/27/16 09:49; Admin Dose 300 MLS/HR; Start 06/14/16 at 21:00 Metronidazole (Flagyl 500 Mg (Pmx)) 100 ml @ 100 mls/hr Q6 IVPB Last administered on 06/27/16 05:38; Admin Dose 100 MLS/HR; Start 06/14/16 at 18:00 Atenolol (Tenormin) 12.5 mg DAILY PO ; Start 06/25/16 at 09:00 Diagnostic Test (Pha) (Accu-Chek) 1 ea Q6 XX Last administered on 06/26/16 06: 54; Admin Dose 1 EA; Start 06/25/16 at 18:00 Midodrine 5 mg 5 mg TID@,,17 GTB Last administered on 06/27/16 09:51; Admin Dose 5 MG; Start 06/25/16 at 17:00 Colistimethate Sodium/Sodium Chloride (Coly-Mycin/NS) 100 ml @ 200 mls/hr Q24H IVPB Last administered on 06/26/16 21:36; Admin Dose 200 MLS/HR; Start 06/26/16 at 21:00 Citric Acid/ Sodium Citrate (Bicitra) 30 ml BID PO Last administered on 09:51; Admin Dose 30 ML; Start 06/26/16 at 21:00 GERALDINE CUNNINGHAM June 27, 2016 10:51
--- NOTE | 2016-06-27 13:54 | PN ---
DATE: 06/27/2016 INFECTIOUS DISEASE PROGRESS NOTE SUBJECTIVE: No events overnight. No fevers. The patient is lying comfortably in bed. LABORATORY DATA: WBC today 15.4 with neutrophils 83.2, no bands. BUN 37, creatinine 1.59. INDWELLINGS: Trach, PEG, Alfonso, permanent pacemaker. ANTIMICROBIALS: The patient remains on: 1. IV colistin. 2. Zyvox 3. Flagyl. 4. Topical Bactroban. MICROBIOLOGY: Intraabdominal fluid cultures on June 11 grew Klebsiella pneumoniae, multidrug-res istant Enterococcus species ____, also Bacteroides fragilis. PHYSICAL EXAMINATION: GENERAL: This is a chronically ill-appearing, elderly man who is in no distress. HEENT: Head atraumatic, normocephalic. Sclerae anicteric. Buccal mucosa dry. NECK: Supple. Tracheostomy present. CHEST: Rise symmetrical. Breath sounds diminished to bases. HEART: S1, S2. ABDOMEN: Soft. Bowel sounds present. EXTREMITIES: Without cyanosis. Bilateral trace edema. ASSESSMENT: 1. Contained perforated viscus status post CT-guided drainage catheter placement, discontinued. 2. Status post pneumonia and septic shock. 3. Sacral decubitus. 4. Coronary artery disease with chronic atrial fibrillation. 5. Status post urinary tract infection and methicillin-resistant Staphylococcus aureus bacteremia o n admission. PLAN: The patient remains stable, completed antibiotics today, day #14. We are going to discontinu e antibiotics and observe him. We will repeat blood cultures p.r.n. Urine culture from yesterday h ad been negative. Dictated By: JOSE G CUNNINGHAM DESIGN DIRECTOR for RASHIDA HUSSEIN/TRACY Conf#: [id number] DID#: [id number]
--- NOTE | 2016-06-27 14:21 | CONS ---
Date/Time of Note Date/Time of Note DATE: 06/27/16 TIME: 14:20 Assessment/Plan Assessment/Plan Additional Assessment/Plan 1.CHF-systolic acute on chonic-reasonable volume status at this time - con'tto keep euvolemic. BETTER NOW. 2.Resp failure s/p trach on vent - con't resp rx - stable - Pulmonary Follows - overall unchanged 3.Cardiomyopathy-LVEF 25-30%- no intervention planned now 4.HTN-with episodes of borderline Hotn - better now 5.PPM-s/p interrogation with proper function-episodes of SVT and shot episode VT 06/09/16/good battery life - good function INTERMITTENT PACING 6.Leukocytosis 7.Tachycardia-PAF- rate controlled 8.Perforated viscous s/p IR drain placement Consultation Date/Type/Reason Admit Date/Time Jun 06, 2016 at 08:08 Initial Consult Date 06/07/16 Type of Consultation: Pulmonary Referring Provider: HOLLI LINDER MD 24 HR Interval Summary Free Text/Dictation No acute events - BP stable - in good fluid status - con't med rx. Medications reviewed. Exam/Review of Systems Vital Signs Vitals Vital Signs Date Time Temp Pulse Resp B/P Pulse Ox O2 Delivery O2 Flow Rate FiO2 06/27/16 13:10 135 30 96 50 06/27/16 11:46 98.3 96/49 Intake and Output 06/26/16 06/26/16 06/27/16 15:00 23:00 07:00 Intake Total 1100 ml 1140 ml Output Total 800 ml 900 ml Balance 300 ml 240 ml Exam General: WN/WD/NAD, AOx 0 HEENT: Unicetric/atraumatic/EOMI (does not follow commands) NECK: JVD elevated, no thyromegaly Lymph: no lymphadenopathy HEART: regular with no S3, II/ systolic murmur at apex LUNGS: Coarse sounds ABD: soft, NT, ND, +BS : Intact Neuro: non focal SKIN: chronic changes EXT: trace edema Results Result Diagram: 06/27/16 0655 06/27/16 0645 Results 24 hrs Laboratory Tests Test 06/26/16 17:06 06/26/16 23:21 06/27/16 05:37 06/27/16 06:45 Bedside Glucose 86 121 83 Sodium Level 127 L Potassium Level 3.8 Chloride Level 103 Carbon Dioxide Level 15 L Anion Gap 13 Blood Urea Nitrogen 37 H Creatinine 1.59 H Glucose Level 71 Calcium Level 7.0 L Total Bilirubin 0.5 Direct Bilirubin 0.30 #H Indirect Bilirubin 0.2 Aspartate Amino Transf (AST/SGOT) 30 Alanine Aminotransferase (ALT/SGPT) 37 Alkaline Phosphatase 133 H Total Protein 4.8 L Albumin 1.9 L Globulin 2.90 Albumin/Globulin Ratio 0.65 Test 06/27/16 06:55 06/27/16 12:06 White Blood Count 15.4 H Red Blood Count 2.64 L Hemoglobin 8.1 L Hematocrit 24.4 L Mean Corpuscular Volume 92.4 Mean Corpuscular Hemoglobin 30.7 Mean Corpuscular Hemoglobin Concent 33.2 Red Cell Distribution Width 16.6 H Platelet Count 83 L Mean Platelet Volume 12.9 H Neutrophils % 83.2 H Lymphocytes % 9.7 L Monocytes % 4.9 Eosinophils % 0.9 Basophils % 0.2 Nucleated Red Blood Cells % 0.0 Neutrophils # 12.9 H Lymphocytes # 1.5 Monocytes # 0.8 Eosinophils # 0.1 Basophils # 0.0 Nucleated Red Blood Cells # 0.0 Bedside Glucose 116 Medications Medications Current Medications Naloxone HCl (Narcan) 0.4 mg Q3M PRN IV DECREASED REPIRATORY RATE; Start at 10:30 Ondansetron HCl (Zofran Inj) 4 mg Q6H PRN IV NAUSEA AND/OR VOMITING; Start 01/12 at 10:30 Nitroglycerin (Nitroglycerin (Sl Tab) 0.4 Mg) 1 tab Q5M PRN SL CHEST PAIN; Start 06/06/16 at 10:30 Acetaminophen (Tylenol Liquid) 650 mg Q6H PRN PO PAIN LEVEL 1-3 OR FEVER; Start 06/06/16 at 10:30 Morphine Sulfate (morphine) 2 mg Q4H PRN IV PAIN LEVEL 7-10 Last administered on 06/15/16t 00:22; Admin Dose 2 MG; Start 06/06/16 at 10:30 Docusate Sodium (Colace) 100 mg Q12H PRN PO CONSTIPATION; Start 06/06/16 at 10: 30 Magnesium Hydroxide (Milk Of Mag) 30 ml DAILY PRN PO CONSTIPATION; Start at 10:30 Bisacodyl (Dulcolax) 5 mg DAILY PRN PO CONSTIPATION; Start 06/06/16 at 10:30 Pantoprazole (Protonix Iv) 40 mg DAILY@06 IV Last administered on 06/27/16 05: 38; Admin Dose 40 MG; Start 06/07/16 at 06:00 Enoxaparin Sodium (Lovenox) 40 mg DAILY SC Last administered on 06/27/16 10:09 ; Admin Dose 40 MG; Start 06/07/16 at 09:00 Collagenase (Santyl) 1 applic DAILY TOP Last administered on 06/26/16 08:38; Admin Dose 1 APPLIC; Start 06/07/16 at 09:00 Collagenase (Santyl) 1 applic PRN PRN TOP WOUND CARE; Start 06/06/16 at 16:00 IV Flush (NS 10 ml) 10 ml PRN PRN IV IV PROTOCOL; Start 06/06/16 at 18:30 Ascorbic Acid (Vitamin C) 500 mg DAILY GTB Last administered on 06/27/16 09:50 ; Admin Dose 500 MG; Start 06/07/16 at 09:00 Aspirin (Aspirin) 325 mg DAILY GTB Last administered on 06/27/16 09:51; Admin Dose 325 MG; Start 06/07/16 at 09:00 Multivitamins (Thera-Plus) 5 ml DAILY GTB Last administered on 06/27/16 09:52; Admin Dose 5 ML; Start 06/07/16 at 09:00 Tamsulosin HCl (Flomax) 0.4 mg HS PO Last administered on 06/26/16 20:34; Admin Dose 0.4 MG; Start 06/07/16 at 21:00 Zinc Sulfate (Zinc Sulfate) 220 mg DAILY GTB Last administered on 06/27/16 09: 50; Admin Dose 220 MG; Start 06/07/16 at 09:00 Mupirocin (Bactroban) 1 applic BID TOP Last administered on 06/27/16 09:53; Admin Dose 1 APPLIC; Start 06/07/16 at 21:00 Metoclopramide HCl (Reglan) 10 mg Q6H PRN IV NAUSEA AND/OR VOMITING Last administered on 06/08/16 18:00; Admin Dose 10 MG; Start 06/08/16 at 09:30 Lorazepam (Ativan) 1 mg Q6H PRN IV AGITATION/ANXIETY Last administered on 12:34; Admin Dose 1 MG; Start 06/09/16 at 13:30 Atenolol (Tenormin) 12.5 mg DAILY PO ; Start 06/25/16 at 09:00 Diagnostic Test (Pha) (Accu-Chek) 1 ea Q6 XX Last administered on 06/26/16 06: 54; Admin Dose 1 EA; Start 06/25/16 at 18:00 Midodrine (Proamatine) 5 mg TID@,, GTB Last administered on 06/27/16 12: 03; Admin Dose 5 MG; Start 06/25/16 at 17:00 Citric Acid/ Sodium Citrate (Bicitra) 30 ml BID PO Last administered on 09:51; Admin Dose 30 ML; Start 06/26/16 at 21:00 ZEUS CHAPPELL MD June 27, 2016 14:21
--- NOTE | 2016-06-27 16:31 | PN ---
Date/Time of Note Date/Time of Note DATE: 06/27/16 TIME: 16:29 Assessment/Plan Lines/Catheters IV Catheter Type (from Rust): PICC Line Alfonso in Place (from Rust): Yes Assessment/Plan Chief Complaint/Hosp Course 1. Contained perforated viscous s/p IR drain 06/11. Cx noted. Leukocytosis resolved. Tube feeds started. Bowel function. Drain dcd. s/p Abx. WBC increasing again. -? paredes cx and scan 2. Pneumonia -pulmonary toilette -abx 3. Sepsis, significant leukocytosis. Improving -abx -as above 4. Sacral decubitus ulcer -off load -nutrition optimization -vit c -local care 5. Chronic AFib -rate control -optimize electrolytes -tx infections 6. Anemia, dropped again -? source -? tx 7. Hypoalbuminemia -eventual nutritional optimization 8. CHF -judicious fluid management -cardiac optimization Thank you, Problems: Subjective 24 Hr Interval Summary Leukocytosis worsening. Increased HR. No f/c. No cough. No sz. No rashes. No bloating. No vomiting. No bleeding. TFs. Bowel function. Exam/Review of Systems Vital Signs Vitals Vital Signs Date Time Temp Pulse Resp B/P Pulse Ox O2 Delivery O2 Flow Rate FiO2 06/27/16 16:24 130 06/27/16 15:58 97.9 24 88/52 99 06/27/16 15:00 50 Intake and Output 06/26/16 06/26/16 06/27/16 15:00 23:00 07:00 Intake Total 1100 ml 1140 ml Output Total 800 ml 900 ml Balance 300 ml 240 ml Exam Free Text/Dictation Constitutional: No alert, No distress, No oriented Psych: confusion, No anxiety Head: atraumatic, normocephalic Eyes: PERRL, nl conjunctiva, No icteric ENMT: mucosa pink and moist, nl external ears & nose, nl lips & teeth Neck: jvd (min), non-tender Respiratory: No congested cough, No labored breathing Cardiovascular: No edema, No regular rate and rhythm Gastrointestinal: soft, PEG No distended, No firm, No rebound or guarding Musculoskeletal: No joint tenderness, No nl gait and stance Extremities: No calf tenderness, No cyanosis Neurological: No nl mental status, No nl speech, No nl strength Skin: nl turgor, rash or lesions (Sacral and LE decubitus ulcerations), No diaphoresis Lymph: nl lymph nodes Results Result Diagram: 06/27/16 0655 06/27/16 0645 DAREK AHMADI MD June 27, 2016 16:31
--- NOTE | 2016-06-27 20:26 | PN ---
DATE: 06/26/2016 Patient remains in various debilitated moribund condition. PEG trach arrangements are being made to send patient back to a subacute facility. Please refer to my prior note on extensive discussion wi th patient's family on 06/15/2016. In reviewing him yesterday, once again, his physical findings jovel d deteriorated where he is not opening his eyes, not moving whatsoever. He looks extremely ashen on examination. CHEST: Shows distant breath sounds throughout both lung nickerson. COR: Regular rate and rhythm. NEUROLOGICAL: Unchanged. He is essentially vegetative. During the last visit, the patient's famil y did change the code to CHEMICAL CODE ONLY. I believe at this time we should address ongoing level of care and possible referral to hospice services. I have asked case management to schedule that amanda downing Dictated By: HENRY GUPTA MD LP/NTS Conf#: [id number] DID#: [id number]
[2016-06-27] MEDS: TAMSULOSIN (SR) 0.4 MG CAP PO SCH (20:34)
--- NOTE | 2016-06-27 22:57 | PN ---
Date/Time of Note Date/Time of Note DATE: 06/27/16 TIME: 22:54 Assessment/Plan VTE Prophylaxis VTE Prophylaxis Intervention: other Lines/Catheters IV Catheter Type (from Nrs): PICC Line Central line still needed: Yes Urinary Cath still in place: Yes Reason Cath still needed: other (indicate) Assessment/Plan Chief Complaint/Hosp Course IMPRESSION: 1. Septic shock.better 2. Pneumonia. aspiration 3. Leukocytosis. 4. Hematuria. better 5. Lactic acidosis. better 6. Respiratory failure. 7. Gastrostomy tube placement. 8. Anemia. 9. Atrial fibrillation. 10. History of congestive heart failure with decreased ejection fraction. 11. vdrf 12. History of paroxysmal atrial fibrillation. 13. The patient now has decubitus. 14 uti 15 In the left anterior mid pelvis there is an approximate 6.3 x 3.2 x 4.7 cm air and fluid collection not definitely bowel suspicious for an abscess/ localized perforation. Diverticula in sigmoid and descending colon. Small amount of ascites. on peg feeding 15 polymirobial sepsis 16 pul edema BETTER 17 no gi bleed 18 hypokalemia 19 diarrhea cdiff neg plan per id iv fluid poor prognosis plan antibiotic per id weaning per pulmonary and cardio surgery consult GT FEEDING tpn taper per id kcl bicitra snf when stable Problems: Subjective 24 Hr Interval Summary Subjective hx not possible: other (on vet,diarrhea+,poor prognosis) Exam/Review of Systems Vital Signs Vitals Vital Signs Date Time Temp Pulse Resp B/P Pulse Ox O2 Delivery O2 Flow Rate FiO2 06/27/16 20:48 102 06/27/16 20:37 117/57 06/27/16 19:50 98.3 32 94 06/27/16 19:30 50 Intake and Output 06/26/16 06/26/16 06/27/16 15:00 23:00 07:00 Intake Total 1100 ml 1140 ml Output Total 800 ml 900 ml Balance 300 ml 240 ml Exam Respiratory: diminished breath sounds Cardiovascular: regular rate and rhythm Gastrointestinal: bowel sounds (+), other (peg+), soft Extremities: edema (+) Results Result Diagram: 06/27/16 0655 06/27/16 0645 Results 24 hrs Laboratory Tests Test 06/26/16 23:21 06/27/16 05:37 06/27/16 06:45 06/27/16 06:55 Bedside Glucose 121 83 Sodium Level 127 L Potassium Level 3.8 Chloride Level 103 Carbon Dioxide Level 15 L Anion Gap 13 Blood Urea Nitrogen 37 H Creatinine 1.59 H Glucose Level 71 Calcium Level 7.0 L Total Bilirubin 0.5 Direct Bilirubin 0.30 #H Indirect Bilirubin 0.2 Aspartate Amino Transf (AST/SGOT) 30 Alanine Aminotransferase (ALT/SGPT) 37 Alkaline Phosphatase 133 H Total Protein 4.8 L Albumin 1.9 L Globulin 2.90 Albumin/Globulin Ratio 0.65 White Blood Count 15.4 H Red Blood Count 2.64 L Hemoglobin 8.1 L Hematocrit 24.4 L Mean Corpuscular Volume 92.4 Mean Corpuscular Hemoglobin 30.7 Mean Corpuscular Hemoglobin Concent 33.2 Red Cell Distribution Width 16.6 H Platelet Count 83 L Mean Platelet Volume 12.9 H Neutrophils % 83.2 H Lymphocytes % 9.7 L Monocytes % 4.9 Eosinophils % 0.9 Basophils % 0.2 Nucleated Red Blood Cells % 0.0 Neutrophils # 12.9 H Lymphocytes # 1.5 Monocytes # 0.8 Eosinophils # 0.1 Basophils # 0.0 Nucleated Red Blood Cells # 0.0 Test 06/27/16 12:06 06/27/16 17:55 Bedside Glucose 116 108 Medications Medications Current Medications Naloxone HCl (Narcan) 0.4 mg Q3M PRN IV DECREASED REPIRATORY RATE; Start at 10:30 Ondansetron HCl (Zofran Inj) 4 mg Q6H PRN IV NAUSEA AND/OR VOMITING; Start 01/12 at 10:30 Nitroglycerin (Nitroglycerin (Sl Tab) 0.4 Mg) 1 tab Q5M PRN SL CHEST PAIN; Start 06/06/16 at 10:30 Acetaminophen (Tylenol Liquid) 650 mg Q6H PRN PO PAIN LEVEL 1-3 OR FEVER; Start 06/06/16 at 10:30 Morphine Sulfate (morphine) 2 mg Q4H PRN IV PAIN LEVEL 7-10 Last administered on 06/15/16t 00:22; Admin Dose 2 MG; Start 06/06/16 at 10:30 Docusate Sodium (Colace) 100 mg Q12H PRN PO CONSTIPATION; Start 06/06/16 at 10: 30 Magnesium Hydroxide (Milk Of Mag) 30 ml DAILY PRN PO CONSTIPATION; Start at 10:30 Bisacodyl (Dulcolax) 5 mg DAILY PRN PO CONSTIPATION; Start 06/06/16 at 10:30 Pantoprazole (Protonix Iv) 40 mg DAILY@06 IV Last administered on 06/27/16 05: 38; Admin Dose 40 MG; Start 06/07/16 at 06:00 Enoxaparin Sodium (Lovenox) 40 mg DAILY SC Last administered on 06/27/16 10:09 ; Admin Dose 40 MG; Start 06/07/16 at 09:00 Collagenase (Santyl) 1 applic DAILY TOP Last administered on 06/27/16 15:23; Admin Dose 1 APPLIC; Start 06/07/16 at 09:00 Collagenase (Santyl) 1 applic PRN PRN TOP WOUND CARE; Start 06/06/16 at 16:00 IV Flush (NS 10 ml) 10 ml PRN PRN IV IV PROTOCOL; Start 06/06/16 at 18:30 Ascorbic Acid (Vitamin C) 500 mg DAILY GTB Last administered on 06/27/16 09:50 ; Admin Dose 500 MG; Start 06/07/16 at 09:00 Aspirin (Aspirin) 325 mg DAILY GTB Last administered on 06/27/16 09:51; Admin Dose 325 MG; Start 06/07/16 at 09:00 Multivitamins (Thera-Plus) 5 ml DAILY GTB Last administered on 06/27/16 09:52; Admin Dose 5 ML; Start 06/07/16 at 09:00 Tamsulosin HCl (Flomax) 0.4 mg HS PO Last administered on 06/27/16 20:34; Admin Dose 0.4 MG; Start 06/07/16 at 21:00 Zinc Sulfate (Zinc Sulfate) 220 mg DAILY GTB Last administered on 06/27/16 09: 50; Admin Dose 220 MG; Start 06/07/16 at 09:00 Mupirocin (Bactroban) 1 applic BID TOP Last administered on 06/27/16 20:34; Admin Dose 1 APPLIC; Start 06/07/16 at 21:00 Metoclopramide HCl (Reglan) 10 mg Q6H PRN IV NAUSEA AND/OR VOMITING Last administered on 06/08/16 18:00; Admin Dose 10 MG; Start 06/08/16 at 09:30 Lorazepam (Ativan) 1 mg Q6H PRN IV AGITATION/ANXIETY Last administered on 12:34; Admin Dose 1 MG; Start 06/09/16 at 13:30 Atenolol (Tenormin) 12.5 mg DAILY PO ; Start 06/25/16 at 09:00 Diagnostic Test (Pha) (Accu-Chek) 1 ea Q6 XX Last administered on 06/26/16 06: 54; Admin Dose 1 EA; Start 06/25/16 at 18:00 Midodrine (Proamatine) 5 mg TID@,,17 GTB Last administered on 06/27/16 18: 00; Admin Dose 5 MG; Start 06/25/16 at 17:00 Citric Acid/ Sodium Citrate (Bicitra) 30 ml BID PO Last administered on 20:34; Admin Dose 30 ML; Start 06/26/16 at 21:00 HOLLI LINDER MD June 27, 2016 22:57
[2016-06-28] VITALS (25 sets, daily range): BP systolic 80–148; BP diastolic 48–72; PULSE 68–125; RESP 18–38
[2016-06-28] MEDS: IPRATROPIUM (HFA) 12.9 GM INHALER INH SCH ×6 (01:33→20:34)
[2016-06-28] MEDS: ALBUTEROL 18 GM INHALER INH SCH ×6 (01:33→20:34)
[2016-06-28] MEDS: PANTOPRAZOLE 40 MG INJ IV SCH (05:33)
[2016-06-28] MEDS: ACCU-CHEK XX SCH ×4 (05:33→16:58)
[2016-06-28 07:10] LABS: ADD SCAN DIFF NO
[2016-06-28 07:14] LABS: BASOPHILS % 0.2 % (0.0-2.0); EOSINOPHILS # 0.2 10^3/ul (0.0-0.5); EOSINOPHILS % 1.2 % (0.0-7.0); HEMOGLOBIN 8.1 g/dl (14.0-18.0); LYMPHOCYTES # 1.3 10^3/ul (0.8-2.9); LYMPHOCYTES % 8.6 % (15.0-51.0); MEAN CORPUSCULAR HEMOGLOBIN 29.8 pg (29.0-33.0); MEAN CORPUSCULAR HGB CONC 32.4 g/dl (32.0-37.0); MEAN CORPUSCULAR VOLUME 91.9 fl (82.0-101.0); MEAN PLATELET VOLUME 12.7 fl (7.4-10.4); MONOCYTE # 0.6 10^3/ul (0.3-0.9); MONOCYTES % 4.2 % (0.0-11.0); NEUTROPHIL # 12.9 10^3/ul (1.6-7.5); NEUTROPHILS % 84.9 % (39.0-77.0); PLATELET COUNT 100 10^3/UL (140-415); RED BLOOD COUNT 2.72 10^6/ul (4.70-6.10); RED CELL DISTRIBUTION WIDTH 17.2 % (11.5-14.5); WHITE BLOOD COUNT 15.2 10^3/ul (4.8-10.8)
[2016-06-28 07:30] LABS: ALBUMIN 1.9 g/dl (3.3-4.9); POTASSIUM 3.4 mmol/L (3.5-5.1)
[2016-06-28 07:32] LABS: BILIRUBIN,INDIRECT 0.2 mg/dl (0-1.1); BILIRUBIN,TOTAL 0.2 mg/dl (0.2-1.3); CREATININE 1.64 mg/dl (0.61-1.24)
[2016-06-28 07:33] LABS: ALBUMIN/GLOBULIN RATIO 0.63; CALCIUM 7.1 mg/dl (8.4-10.2); TOTAL PROTEIN 4.9 g/dl (6.1-8.1)
[2016-06-28] MEDS: MIDODRINE 5 MG TAB GTB SCH ×3 (08:06→16:58)
[2016-06-28] MEDS: ASCORBIC ACID 500 MG TAB GTB SCH (08:06)
[2016-06-28] MEDS: ASPIRIN 325 MG TAB GTB SCH (08:06)
[2016-06-28] MEDS: MUPIROCIN 2% 22 GM OINT TOP SCH ×2 (08:07→21:48)
[2016-06-28] MEDS: CITRIC ACID/SODIUM CITRATE 15 ML CUP PO SCH ×2 (08:07→23:12)
[2016-06-28] MEDS: ATENOLOL 25 MG TAB PO SCH (08:07)
[2016-06-28] MEDS: MULTIVITAMINS 5 ML CUP GTB SCH (08:08)
[2016-06-28] MEDS: COLLAGENASE 30 GM TUBE TOP SCH ×2 (08:08→17:46)
[2016-06-28] MEDS: ZINC SULFATE 220 MG CAP GTB SCH (08:08)
[2016-06-28] MEDS: ENOXAPARIN 40 MG/0.4 ML SYG SC SCH (08:26)
--- NOTE | 2016-06-28 10:46 | CONS ---
Date/Time of Note Date/Time of Note DATE: 06/28/16 TIME: 10:44 Assessment/Plan Assessment/Plan Additional Assessment/Plan Ventilator settings; AC of 14, tidal volume 400, PEEP of 5, 50% FiO2. Next Assessment recommendations; 1. Patient admitted for sepsis from severe decubitus ulcers. 2. Chronic respiratory failure. 3. Advanced multi-infarct dementia. 4. Recent bowel perforation, treated conservatively, with interval improvement. Patient maintained on TPN. 5. History of cardiac arrhythmia. Continue current supportive care. Prognosis is poor. Consultation Date/Type/Reason Admit Date/Time Jun 06, 2016 at 08:08 Initial Consult Date 06/07/16 Type of Consultation: Pulmonary Referring Provider: HOLLI LINDER MD 24 HR Interval Summary Free Text/Dictation Patient's condition remains stable. Remains unresponsive, this has been his underlying mental status. Has remained hemodynamically stable. General exam; elderly male, on ventilator via tracheostomy, currently in no distress. Exam/Review of Systems Vital Signs Vitals Vital Signs Date Time Temp Pulse Resp B/P Pulse Ox O2 Delivery O2 Flow Rate FiO2 06/28/16 09:04 120 36 96 40 06/28/16 07:31 98.0 125/58 Intake and Output 06/27/16 06/27/16 06/28/16 15:00 23:00 07:00 Intake Total 400 ml 910 ml 860 ml Output Total 2000 ml 550 ml Balance 400 ml -1090 ml 310 ml Exam HEENT exam is; supple neck, no JVD. No lymphadenopathy. Midline trachea. Tracheostomy in place. Insertion site is clean. Patient bilateral corneal opacities. Patient is edentulous. Chest examination; clear to auscultation. S1-S2 audible, no murmurs. Regular rhythm. There is a pacemaker in the right chest wall. Abdomen examination; soft, G-tube in place. No organomegaly. Nontender distended. Bowel sounds audible. Extremity examination; no peripheral edema. Back examination; dressing applied over sacrum. GLAZIER APPRENTICE examination; patient remains unresponsive. Results Result Diagram: 06/28/16 0630 06/28/16 0630 Results 24 hrs Laboratory Tests Test 06/27/16 12:06 06/27/16 17:55 06/27/16 23:48 06/28/16 05:32 Bedside Glucose 116 108 102 106 Test 06/28/16 06:30 White Blood Count 15.2 H Red Blood Count 2.72 L Hemoglobin 8.1 L Hematocrit 25.0 L Mean Corpuscular Volume 91.9 Mean Corpuscular Hemoglobin 29.8 Mean Corpuscular Hemoglobin Concent 32.4 Red Cell Distribution Width 17.2 H Platelet Count 100 #L Mean Platelet Volume 12.7 H Neutrophils % 84.9 H Lymphocytes % 8.6 L Monocytes % 4.2 Eosinophils % 1.2 Basophils % 0.2 Nucleated Red Blood Cells % 0.0 Neutrophils # 12.9 H Lymphocytes # 1.3 Monocytes # 0.6 Eosinophils # 0.2 Basophils # 0.0 Nucleated Red Blood Cells # 0.0 Sodium Level 131 L Potassium Level 3.4 L Chloride Level 101 Carbon Dioxide Level 17 L Anion Gap 16 Blood Urea Nitrogen 45 H Creatinine 1.64 H Glucose Level 96 Calcium Level 7.1 L Total Bilirubin 0.2 Direct Bilirubin 0.00 # Indirect Bilirubin 0.2 Aspartate Amino Transf (AST/SGOT) 33 Alanine Aminotransferase (ALT/SGPT) 32 Alkaline Phosphatase 124 H Total Protein 4.9 L Albumin 1.9 L Globulin 3.00 Albumin/Globulin Ratio 0.63 Medications Medications Current Medications Naloxone HCl (Narcan) 0.4 mg Q3M PRN IV DECREASED REPIRATORY RATE; Start at 10:30 Ondansetron HCl (Zofran Inj) 4 mg Q6H PRN IV NAUSEA AND/OR VOMITING; Start 01/12 at 10:30 Nitroglycerin (Nitroglycerin (Sl Tab) 0.4 Mg) 1 tab Q5M PRN SL CHEST PAIN; Start 06/06/16 at 10:30 Acetaminophen (Tylenol Liquid) 650 mg Q6H PRN PO PAIN LEVEL 1-3 OR FEVER; Start 06/06/16 at 10:30 Morphine Sulfate (morphine) 2 mg Q4H PRN IV PAIN LEVEL 7-10 Last administered on 06/15/16t 00:22; Admin Dose 2 MG; Start 06/06/16 at 10:30 Docusate Sodium (Colace) 100 mg Q12H PRN PO CONSTIPATION; Start 06/06/16 at 10: 30 Magnesium Hydroxide (Milk Of Mag) 30 ml DAILY PRN PO CONSTIPATION; Start at 10:30 Bisacodyl (Dulcolax) 5 mg DAILY PRN PO CONSTIPATION; Start 06/06/16 at 10:30 Pantoprazole (Protonix Iv) 40 mg DAILY@06 IV Last administered on 06/28/16 05: 33; Admin Dose 40 MG; Start 06/07/16 at 06:00 Enoxaparin Sodium (Lovenox) 40 mg DAILY SC Last administered on 06/28/16 08:26 ; Admin Dose 40 MG; Start 06/07/16 at 09:00 Collagenase (Santyl) 1 applic DAILY TOP Last administered on 06/27/16 15:23; Admin Dose 1 APPLIC; Start 06/07/16 at 09:00 Collagenase (Santyl) 1 applic PRN PRN TOP WOUND CARE; Start 06/06/16 at 16:00 IV Flush (NS 10 ml) 10 ml PRN PRN IV IV PROTOCOL; Start 06/06/16 at 18:30 Ascorbic Acid (Vitamin C) 500 mg DAILY GTB Last administered on 06/28/16 08:06 ; Admin Dose 500 MG; Start 06/07/16 at 09:00 Aspirin (Aspirin) 325 mg DAILY GTB Last administered on 06/28/16 08:06; Admin Dose 325 MG; Start 06/07/16 at 09:00 Multivitamins (Thera-Plus) 5 ml DAILY GTB Last administered on 06/28/16 08:08; Admin Dose 5 ML; Start 06/07/16 at 09:00 Tamsulosin HCl (Flomax) 0.4 mg HS PO Last administered on 06/27/16 20:34; Admin Dose 0.4 MG; Start 06/07/16 at 21:00 Zinc Sulfate (Zinc Sulfate) 220 mg DAILY GTB Last administered on 06/28/16 08: 08; Admin Dose 220 MG; Start 06/07/16 at 09:00 Mupirocin (Bactroban) 1 applic BID TOP Last administered on 06/28/16 08:07; Admin Dose 1 APPLIC; Start 06/07/16 at 21:00 Metoclopramide HCl (Reglan) 10 mg Q6H PRN IV NAUSEA AND/OR VOMITING Last administered on 06/08/16 18:00; Admin Dose 10 MG; Start 06/08/16 at 09:30 Lorazepam (Ativan) 1 mg Q6H PRN IV AGITATION/ANXIETY Last administered on 12:34; Admin Dose 1 MG; Start 06/09/16 at 13:30 Atenolol (Tenormin) 12.5 mg DAILY PO Last administered on 06/28/16 08:07; Admin Dose 12.5 MG; Start 06/25/16 at 09:00 Diagnostic Test (Pha) (Accu-Chek) 1 ea Q6 XX Last administered on 06/26/16 06: 54; Admin Dose 1 EA; Start 06/25/16 at 18:00 Midodrine (Proamatine) 5 mg TID@,,17 GTB Last administered on 06/28/16 08: 06; Admin Dose 5 MG; Start 06/25/16 at 17:00 Citric Acid/ Sodium Citrate (Bicitra) 30 ml BID PO Last administered on 08:07; Admin Dose 30 ML; Start 06/26/16 at 21:00 GERALDINE CUNNINGHAM June 28, 2016 10:46
--- NOTE | 2016-06-28 12:58 | PN ---
DATE: 06/28/2016 SUBJECTIVE: No changes overnight. The patient is lying comfortably in bed. VITAL SIGNS: Tachycardic, afebrile. LABORATORIES: WBC today 15.2 with platelets 100, neutrophils 84.9. BUN 45, creatinine 1.64. MICROBIOLOGY: Stool for C. diff came back negative. Urine culture on 06/26/2016 negative. INDWELLINGS: Trach, PEG, Alfonso, PICC line. PHYSICAL EXAMINATION: GENERAL: This is a well-developed, fragile, chronically ill-appearing, elderly man who is in no dis tress. HEENT: Head atraumatic, normocephalic. Sclerae anicteric. Buccal mucosa dry. NECK: Supple. Tracheostomy present. CHEST: Rise symmetrical. Breath sounds diminished to bases. HEART: S1, S2. ABDOMEN: Soft. Bowel tones hypoactive. EXTREMITIES: Without cyanosis. Bilateral trace edema. ASSESSMENT: 1. Status post sepsis with shock. 2. Status post contained perforated viscus, requiring drainage catheter placement that was disconti nued. 3. Status post pneumonia, urinary tract infection, and methicillin-resistant Staphylococcus aureus bacteremia on admission. 4. Coronary artery disease, chronic atrial fibrillation. 5. Encephalopathy. 6. Sacral decubitus. PLAN: The patient remains stable, completed 2 weeks IV antibiotics, currently off. Continue presen t care and panculture p.r.n. Dictated By: JOSE G CUNNINGHAM MERCHANT TAILOR for RASHIDA HUSSEIN/NTS Conf#: [id number] DID#: [id number]
--- NOTE | 2016-06-28 17:14 | PN ---
Date/Time of Note Date/Time of Note DATE: 06/28/16 TIME: 17:12 Assessment/Plan Lines/Catheters IV Catheter Type (from [facility]): PICC Line Alfonso in Place (from [facility]): Yes Assessment/Plan Chief Complaint/Hosp Course 1. Contained perforated viscous s/p IR drain 06/11. Cx noted. Leukocytosis resolved. Tube feeds started. Bowel function. Drain dcd. s/p Abx. WBC increasing again. -? paredes cx and scan 2. Pneumonia -pulmonary toilette -abx 3. Sepsis, significant leukocytosis. Improving -abx -as above 4. Sacral decubitus ulcer -off load -nutrition optimization -vit c -local care 5. Chronic AFib -rate control -optimize electrolytes -tx infections 6. Anemia, dropped again -? source -? tx 7. Hypoalbuminemia -eventual nutritional optimization 8. CHF -judicious fluid management -cardiac optimization Thank you, Problems: Subjective 24 Hr Interval Summary Leukocytosis. Increased HR. No f/c. No cough. No sz. No rashes. No bloating. No vomiting. No bleeding. TFs. Bowel function. Exam/Review of Systems Vital Signs Vitals Vital Signs Date Time Temp Pulse Resp B/P Pulse Ox O2 Delivery O2 Flow Rate FiO2 06/28/16 17:08 89 33 100 06/28/16 16:59 98.6 93/50 Mechanical Ventilator 06/28/16 15:23 35 Intake and Output 06/27/16 06/27/16 06/28/16 15:00 23:00 07:00 Intake Total 400 ml 910 ml 860 ml Output Total 2000 ml 550 ml Balance 400 ml -1090 ml 310 ml Exam Free Text/Dictation Constitutional: No alert, No distress, No oriented Psych: confusion, No anxiety Head: atraumatic, normocephalic Eyes: PERRL, nl conjunctiva, No icteric ENMT: mucosa pink and moist, nl external ears & nose, nl lips & teeth Neck: jvd (min), non-tender Respiratory: No congested cough, No labored breathing Cardiovascular: No edema, No regular rate and rhythm Gastrointestinal: soft, PEG No distended, No firm, No rebound or guarding Musculoskeletal: No joint tenderness, No nl gait and stance Extremities: No calf tenderness, No cyanosis Neurological: No nl mental status, No nl speech, No nl strength Skin: nl turgor, rash or lesions (Sacral and LE decubitus ulcerations), No diaphoresis Lymph: nl lymph nodes Results Result Diagram: 06/28/1630 06/28/1630 DAREK AHMADI MD June 28, 2016 17:14
--- NOTE | 2016-06-28 17:53 | CONS ---
Date/Time of Note Date/Time of Note DATE: 06/28/16 TIME: 17:50 Assessment/Plan Assessment/Plan Chief Complaint/Hosp Course IMp: 1.CHF-systolic acute on chonic-reasonable volume status at this time 2.Resp failure s/p trach on vent 3.Cardiomyopathy-LVEF 25-30% 4.HTN-with episodes of borderline Hotn and now on midodrine 5.PPM-s/p interrogation with proper function-episodes of SVT and short episode VT 06/09/16/good battery life 6.Leukocytosis 7.Tachycardia-PAF/AFL rate controlled 8.Perforated viscous s/p IR drain placement 9. Renal insuff-? overdiuresis Recc: -Tele -Follow BP/Volume status closely and will continue hold lasix given development of renal insuff -Continue abx's and f/u cx data -Continue atenolol as tolerated/possible only -Continue asa/low dose lovenox -Continue abx's/f/u cx data -Follow IR drainage output -Palliative care following -Now on midodrine BP support as necessary Problems: Consultation Date/Type/Reason Admit Date/Time Jun 06, 2016 at 08:08 Initial Consult Date 06/07/16 Type of Consultation: Cardiology Reason for Consultation cardiomyopathy/CHF Referring Provider: HOLLI LINDER MD Exam/Review of Systems Vital Signs Vitals Vital Signs Date Time Temp Pulse Resp B/P Pulse Ox O2 Delivery O2 Flow Rate FiO2 06/28/16 17:08 89 33 100 06/28/16 16:59 98.6 93/50 Mechanical Ventilator 06/28/16 15:23 35 Intake and Output 06/27/16 06/27/16 06/28/16 15:00 23:00 07:00 Intake Total 400 ml 910 ml 860 ml Output Total 2000 ml 550 ml Balance 400 ml -1090 ml 310 ml Exam Review of Systems: CONSTITUTIONAL: No fevers, chills. PULMONARY: No sob CARDIOVASCULAR: No chest pain/palpitations GASTROINTESTINAL: No nausea/vomiting. GENITOURINARY: No hematuria/dysuria. MUSCULOSKELETAL: No myagias/arthalgias. PSYCHIATRIC: The patient denies depression. NEUROLOGIC: encephalopathy Constitutional: other (encephalopathic) Psych: no complaints Head: normocephalic ENMT: mucosa pink and moist Neck: jvd (9 cm water), supple Respiratory: diminished breath sounds Cardiovascular: regular rate and rhythm Gastrointestinal: mass, non-tender, soft Musculoskeletal: muscle tone (normal) Extremities: edema (none) Neurological: other (No focal deficits) Results Result Diagram: 06/28/16 0630 06/28/16 0630 Results 24 hrs Laboratory Tests Test 06/27/16 17:55 06/27/16 23:48 06/28/16 05:32 06/28/16 06:30 Bedside Glucose 108 102 106 White Blood Count 15.2 H Red Blood Count 2.72 L Hemoglobin 8.1 L Hematocrit 25.0 L Mean Corpuscular Volume 91.9 Mean Corpuscular Hemoglobin 29.8 Mean Corpuscular Hemoglobin Concent 32.4 Red Cell Distribution Width 17.2 H Platelet Count 100 #L Mean Platelet Volume 12.7 H Neutrophils % 84.9 H Lymphocytes % 8.6 L Monocytes % 4.2 Eosinophils % 1.2 Basophils % 0.2 Nucleated Red Blood Cells % 0.0 Neutrophils # 12.9 H Lymphocytes # 1.3 Monocytes # 0.6 Eosinophils # 0.2 Basophils # 0.0 Nucleated Red Blood Cells # 0.0 Sodium Level 131 L Potassium Level 3.4 L Chloride Level 101 Carbon Dioxide Level 17 L Anion Gap 16 Blood Urea Nitrogen 45 H Creatinine 1.64 H Glucose Level 96 Calcium Level 7.1 L Total Bilirubin 0.2 Direct Bilirubin 0.00 # Indirect Bilirubin 0.2 Aspartate Amino Transf (AST/SGOT) 33 Alanine Aminotransferase (ALT/SGPT) 32 Alkaline Phosphatase 124 H Total Protein 4.9 L Albumin 1.9 L Globulin 3.00 Albumin/Globulin Ratio 0.63 Test 06/28/16 12:40 06/28/16 16:52 Bedside Glucose 95 85 Medications Medications Current Medications Naloxone HCl (Narcan) 0.4 mg Q3M PRN IV DECREASED REPIRATORY RATE; Start at 10:30 Ondansetron HCl (Zofran Inj) 4 mg Q6H PRN IV NAUSEA AND/OR VOMITING; Start 01/12 at 10:30 Nitroglycerin (Nitroglycerin (Sl Tab) 0.4 Mg) 1 tab Q5M PRN SL CHEST PAIN; Start 06/06/16 at 10:30 Acetaminophen (Tylenol Liquid) 650 mg Q6H PRN PO PAIN LEVEL 1-3 OR FEVER; Start 06/06/16 at 10:30 Morphine Sulfate (morphine) 2 mg Q4H PRN IV PAIN LEVEL 7-10 Last administered on 06/15/16 00:22; Admin Dose 2 MG; Start 06/06/16 at 10:30 Docusate Sodium (Colace) 100 mg Q12H PRN PO CONSTIPATION; Start 06/06/16 at 10: 30 Magnesium Hydroxide (Milk Of Mag) 30 ml DAILY PRN PO CONSTIPATION; Start at 10:30 Bisacodyl (Dulcolax) 5 mg DAILY PRN PO CONSTIPATION; Start 06/06/16 at 10:30 Pantoprazole (Protonix Iv) 40 mg DAILY@06 IV Last administered on 06/28/16 05: 33; Admin Dose 40 MG; Start 06/07/16 at 06:00 Enoxaparin Sodium (Lovenox) 40 mg DAILY SC Last administered on 06/28/16 08:26 ; Admin Dose 40 MG; Start 06/07/16 at 09:00 Collagenase (Santyl) 1 applic DAILY TOP Last administered on 06/28/16 17:46; Admin Dose 1 APPLIC; Start 06/07/16 at 09:00 Collagenase (Santyl) 1 applic PRN PRN TOP WOUND CARE; Start 06/06/16 at 16:00 IV Flush (NS 10 ml) 10 ml PRN PRN IV IV PROTOCOL; Start 06/06/16 at 18:30 Ascorbic Acid (Vitamin C) 500 mg DAILY GTB Last administered on 06/28/16 08:06 ; Admin Dose 500 MG; Start 06/07/16 at 09:00 Aspirin (Aspirin) 325 mg DAILY GTB Last administered on 06/28/16 08:06; Admin Dose 325 MG; Start 06/07/16 at 09:00 Multivitamins (Thera-Plus) 5 ml DAILY GTB Last administered on 06/28/16 08:08; Admin Dose 5 ML; Start 06/07/16 at 09:00 Tamsulosin HCl (Flomax) 0.4 mg HS PO Last administered on 06/27/16 20:34; Admin Dose 0.4 MG; Start 06/07/16 at 21:00 Zinc Sulfate (Zinc Sulfate) 220 mg DAILY GTB Last administered on 06/28/16 08: 08; Admin Dose 220 MG; Start 06/07/16 at 09:00 Mupirocin (Bactroban) 1 applic BID TOP Last administered on 06/28/16 08:07; Admin Dose 1 APPLIC; Start 06/07/16 at 21:00 Metoclopramide HCl (Reglan) 10 mg Q6H PRN IV NAUSEA AND/OR VOMITING Last administered on 06/08/16 18:00; Admin Dose 10 MG; Start 06/08/16 at 09:30 Lorazepam (Ativan) 1 mg Q6H PRN IV AGITATION/ANXIETY Last administered on 12:34; Admin Dose 1 MG; Start 06/09/16 at 13:30 Atenolol (Tenormin) 12.5 mg DAILY PO Last administered on 06/28/16 08:07; Admin Dose 12.5 MG; Start 06/25/16 at 09:00 Diagnostic Test (Pha) (Accu-Chek) 1 ea Q6 XX Last administered on 06/26/16 06: 54; Admin Dose 1 EA; Start 06/25/16 at 18:00 Midodrine (Proamatine) 5 mg TID@,,17 GTB Last administered on 06/28/16 16: 58; Admin Dose 5 MG; Start 06/25/16 at 17:00 Citric Acid/ Sodium Citrate (Bicitra) 30 ml BID PO Last administered on 08:07; Admin Dose 30 ML; Start 06/26/16 at 21:00 JAYA GORE June 28, 2016 17:53
--- NOTE | 2016-06-28 21:10 | PN ---
Date/Time of Note Date/Time of Note DATE: 06/28/16 TIME: 21:09 Assessment/Plan VTE Prophylaxis VTE Prophylaxis Intervention: other Lines/Catheters IV Catheter Type (from Nrs): PICC Line Central line still needed: Yes Urinary Cath still in place: Yes Reason Cath still needed: other (indicate) Assessment/Plan Chief Complaint/Hosp Course IMPRESSION: 1. Septic shock.better 2. Pneumonia. aspiration 3. Leukocytosis. 4. Hematuria. better 5. Lactic acidosis. better 6. Respiratory failure. 7. Gastrostomy tube placement. 8. Anemia. 9. Atrial fibrillation. 10. History of congestive heart failure with decreased ejection fraction. 11. vdrf 12. History of paroxysmal atrial fibrillation. 13. The patient now has decubitus. 14 uti 15 In the left anterior mid pelvis there is an approximate 6.3 x 3.2 x 4.7 cm air and fluid collection not definitely bowel suspicious for an abscess/ localized perforation. Diverticula in sigmoid and descending colon. Small amount of ascites. on peg feeding 15 polymirobial sepsis 16 pul edema BETTER 17 no gi bleed 18 hypokalemia 19 diarrhea cdiff neg 20 HYPOKALEMIA plan per id iv fluid poor prognosis KCL plan antibiotic per id weaning per pulmonary and cardio surgery consult GT FEEDING tpn taper per id kcl bicitra snf when stable Problems: Subjective 24 Hr Interval Summary Subjective hx not possible: other (ON VENT) Exam/Review of Systems Vital Signs Vitals Vital Signs Date Time Temp Pulse Resp B/P Pulse Ox O2 Delivery O2 Flow Rate FiO2 06/28/16 20:55 85 06/28/16 19:46 98.0 20 114/55 93 06/28/16 16:59 Mechanical Ventilator 06/28/16 15:23 35 Intake and Output 06/27/16 06/27/16 06/28/16 15:00 23:00 07:00 Intake Total 400 ml 910 ml 860 ml Output Total 2000 ml 550 ml Balance 400 ml -1090 ml 310 ml Exam Neck: supple Respiratory: clear to auscultation Cardiovascular: regular rate and rhythm Gastrointestinal: bowel sounds (+), soft Results Result Diagram: 06/28/16 0630 06/28/16 0630 Results 24 hrs Laboratory Tests Test 06/27/16 23:48 06/28/16 05:32 06/28/16 06:30 06/28/16 12:40 Bedside Glucose 102 106 95 White Blood Count 15.2 H Red Blood Count 2.72 L Hemoglobin 8.1 L Hematocrit 25.0 L Mean Corpuscular Volume 91.9 Mean Corpuscular Hemoglobin 29.8 Mean Corpuscular Hemoglobin Concent 32.4 Red Cell Distribution Width 17.2 H Platelet Count 100 #L Mean Platelet Volume 12.7 H Neutrophils % 84.9 H Lymphocytes % 8.6 L Monocytes % 4.2 Eosinophils % 1.2 Basophils % 0.2 Nucleated Red Blood Cells % 0.0 Neutrophils # 12.9 H Lymphocytes # 1.3 Monocytes # 0.6 Eosinophils # 0.2 Basophils # 0.0 Nucleated Red Blood Cells # 0.0 Sodium Level 131 L Potassium Level 3.4 L Chloride Level 101 Carbon Dioxide Level 17 L Anion Gap 16 Blood Urea Nitrogen 45 H Creatinine 1.64 H Glucose Level 96 Calcium Level 7.1 L Total Bilirubin 0.2 Direct Bilirubin 0.00 # Indirect Bilirubin 0.2 Aspartate Amino Transf (AST/SGOT) 33 Alanine Aminotransferase (ALT/SGPT) 32 Alkaline Phosphatase 124 H Total Protein 4.9 L Albumin 1.9 L Globulin 3.00 Albumin/Globulin Ratio 0.63 Test 06/28/16 16:52 Bedside Glucose 85 Medications Medications Current Medications Naloxone HCl (Narcan) 0.4 mg Q3M PRN IV DECREASED REPIRATORY RATE; Start at 10:30 Ondansetron HCl (Zofran Inj) 4 mg Q6H PRN IV NAUSEA AND/OR VOMITING; Start 01/12 at 10:30 Nitroglycerin (Nitroglycerin (Sl Tab) 0.4 Mg) 1 tab Q5M PRN SL CHEST PAIN; Start 06/06/16 at 10:30 Acetaminophen (Tylenol Liquid) 650 mg Q6H PRN PO PAIN LEVEL 1-3 OR FEVER; Start 06/06/16 at 10:30 Morphine Sulfate (morphine) 2 mg Q4H PRN IV PAIN LEVEL 7-10 Last administered on 06/15/16 00:22; Admin Dose 2 MG; Start 06/06/16 at 10:30 Docusate Sodium (Colace) 100 mg Q12H PRN PO CONSTIPATION; Start 06/06/16 at 10: 30 Magnesium Hydroxide (Milk Of Mag) 30 ml DAILY PRN PO CONSTIPATION; Start at 10:30 Bisacodyl (Dulcolax) 5 mg DAILY PRN PO CONSTIPATION; Start 06/06/16 at 10:30 Pantoprazole (Protonix Iv) 40 mg DAILY@06 IV Last administered on 06/28/16 05: 33; Admin Dose 40 MG; Start 06/07/16 at 06:00 Enoxaparin Sodium (Lovenox) 40 mg DAILY SC Last administered on 06/28/16 08:26 ; Admin Dose 40 MG; Start 06/07/16 at 09:00 Collagenase (Santyl) 1 applic DAILY TOP Last administered on 06/28/16 17:46; Admin Dose 1 APPLIC; Start 06/07/16 at 09:00 Collagenase (Santyl) 1 applic PRN PRN TOP WOUND CARE; Start 06/06/16 at 16:00 IV Flush (NS 10 ml) 10 ml PRN PRN IV IV PROTOCOL; Start 06/06/16 at 18:30 Ascorbic Acid (Vitamin C) 500 mg DAILY GTB Last administered on 06/28/16 08:06 ; Admin Dose 500 MG; Start 06/07/16 at 09:00 Aspirin (Aspirin) 325 mg DAILY GTB Last administered on 06/28/16 08:06; Admin Dose 325 MG; Start 06/07/16 at 09:00 Multivitamins (Thera-Plus) 5 ml DAILY GTB Last administered on 06/28/16 08:08; Admin Dose 5 ML; Start 06/07/16 at 09:00 Tamsulosin HCl (Flomax) 0.4 mg HS PO Last administered on 06/27/16 20:34; Admin Dose 0.4 MG; Start 06/07/16 at 21:00 Zinc Sulfate (Zinc Sulfate) 220 mg DAILY GTB Last administered on 06/28/16 08: 08; Admin Dose 220 MG; Start 06/07/16 at 09:00 Mupirocin (Bactroban) 1 applic BID TOP Last administered on 06/28/16 08:07; Admin Dose 1 APPLIC; Start 06/07/16 at 21:00 Metoclopramide HCl (Reglan) 10 mg Q6H PRN IV NAUSEA AND/OR VOMITING Last administered on 06/08/16 18:00; Admin Dose 10 MG; Start 06/08/16 at 09:30 Lorazepam (Ativan) 1 mg Q6H PRN IV AGITATION/ANXIETY Last administered on 12:34; Admin Dose 1 MG; Start 06/09/16 at 13:30 Atenolol (Tenormin) 12.5 mg DAILY PO Last administered on 06/28/16 08:07; Admin Dose 12.5 MG; Start 06/25/16 at 09:00 Diagnostic Test (Pha) (Accu-Chek) 1 ea Q6 XX Last administered on 06/26/16 06: 54; Admin Dose 1 EA; Start 06/25/16 at 18:00 Midodrine (Proamatine) 5 mg TID@,,17 GTB Last administered on 06/28/16 16: 58; Admin Dose 5 MG; Start 06/25/16 at 17:00 Citric Acid/ Sodium Citrate (Bicitra) 30 ml BID PO Last administered on 08:07; Admin Dose 30 ML; Start 06/26/16 at 21:00 HOLLI LINDER MD June 28, 2016 21:10
[2016-06-28] MEDS ORDERED: POTASSIUM CHLORIDE 30 MEQ in DEXTROSE 5% 250 ML IVPB ONE (21:30)
[2016-06-28] MEDS: TAMSULOSIN (SR) 0.4 MG CAP PO SCH (21:47)
[2016-06-29] VITALS (24 sets, daily range): BP systolic 95–134; BP diastolic 55–93; PULSE 85–125; RESP 16–71
[2016-06-29] MEDS: ALBUTEROL 18 GM INHALER INH SCH ×6 (01:20→20:22)
[2016-06-29] MEDS: IPRATROPIUM (HFA) 12.9 GM INHALER INH SCH ×6 (01:20→20:22)
[2016-06-29] MEDS: ACCU-CHEK XX SCH ×4 (06:00→18:14)
[2016-06-29] MEDS: PANTOPRAZOLE 40 MG INJ IV SCH (06:23)
[2016-06-29 08:08] LABS: ADD SCAN DIFF NO
[2016-06-29 08:10] LABS: HEMATOCRIT 25.3 % (42.0-52.0); HEMOGLOBIN 8.4 g/dl (14.0-18.0); MEAN CORPUSCULAR HEMOGLOBIN 30.5 pg (29.0-33.0); MEAN CORPUSCULAR HGB CONC 33.2 g/dl (32.0-37.0); MEAN PLATELET VOLUME 12.9 fl (7.4-10.4); PLATELET COUNT 120 10^3/UL (140-415); RED BLOOD COUNT 2.75 10^6/ul (4.70-6.10); RED CELL DISTRIBUTION WIDTH 17.2 % (11.5-14.5); WHITE BLOOD COUNT 14.1 10^3/ul (4.8-10.8)
[2016-06-29 08:43] LABS: ALBUMIN 2.1 g/dl (3.3-4.9); ALBUMIN/GLOBULIN RATIO 0.7; BILIRUBIN,DIRECT 0.1 mg/dl (0.00-0.20); BILIRUBIN,INDIRECT 0.1 mg/dl (0-1.1); BILIRUBIN,TOTAL 0.2 mg/dl (0.2-1.3); CALCIUM 7.2 mg/dl (8.4-10.2); CREATININE 1.55 mg/dl (0.61-1.24); TOTAL PROTEIN 5.1 g/dl (6.1-8.1)
[2016-06-29] MEDS: ZINC SULFATE 220 MG CAP GTB SCH (09:53)
[2016-06-29] MEDS: ASPIRIN 325 MG TAB GTB SCH (09:54)
[2016-06-29] MEDS: ASCORBIC ACID 500 MG TAB GTB SCH (09:54)
[2016-06-29] MEDS: MULTIVITAMINS 5 ML CUP GTB SCH (09:54)
[2016-06-29] MEDS: CITRIC ACID/SODIUM CITRATE 15 ML CUP PO SCH ×2 (09:55→21:56)
[2016-06-29] MEDS: ATENOLOL 25 MG TAB PO SCH (09:56)
[2016-06-29] MEDS: MIDODRINE 5 MG TAB GTB SCH ×3 (09:56→18:14)
[2016-06-29] MEDS: COLLAGENASE 30 GM TUBE TOP SCH (09:57)
[2016-06-29] MEDS: MUPIROCIN 2% 22 GM OINT TOP SCH ×2 (09:57→21:10)
[2016-06-29] MEDS: ENOXAPARIN 40 MG/0.4 ML SYG SC SCH (10:10)
[2016-06-29 10:44] LABS: EOSINOPHILS # 0.1 10^3/ul (0.0-0.5); LYMPHOCYTES # 1.4 10^3/ul (0.8-2.9); MONOCYTE # 0.6 10^3/ul (0.3-0.9); NEUTROPHIL # 11.4 10^3/ul (1.6-7.5)
--- NOTE | 2016-06-29 12:14 | CONS ---
Date/Time of Note Date/Time of Note DATE: 06/29/16 TIME: 12:12 Assessment/Plan Assessment/Plan Additional Assessment/Plan Ventilator settings; AC of 14, tidal volume 400, PEEP of 5, 50% FiO2. Assessment recommendations; next 1. Patient admitted for severe sepsis from decubitus ulcers. Currently on broad-spectrum antibiotic coverage. 2. Advanced dementia. 3. Status post recent bowel perforation, treated conservatively. Patient on TPN. 4. Chronic respiratory failure, patient remains ventilator dependent. Continue current treatment. Prognosis is poor. Consultation Date/Type/Reason Admit Date/Time Jun 06, 2016 at 08:08 Initial Consult Date 06/07/16 Type of Consultation: Pulmonary/critical care Referring Provider: HOLLI LINDER MD 24 HR Interval Summary Free Text/Dictation Patient condition remains stable. Remains essentially unresponsive. Has remained hemodynamically stable. General exam; elderly male, on ventilator via tracheostomy currently in no distress. Exam/Review of Systems Vital Signs Vitals Vital Signs Date Time Temp Pulse Resp B/P Pulse Ox O2 Delivery O2 Flow Rate FiO2 06/29/16 11:37 100.0 100 26 126/93 97 06/29/16 10:56 32 06/28/16 16:59 Mechanical Ventilator Intake and Output 06/28/16 06/28/16 06/29/16 15:00 23:00 07:00 Intake Total 885 ml 750 ml Output Total 1500 ml 500 ml Balance -615 ml 250 ml Exam HEENT examination; supple neck, no JVD. No lymphadenopathy. Midline trachea. Tracheostomy in place. Insertion site is clean. Patient is edentulous. Patient has bilateral corneal opacities. Chest examination; diminished but clear vessel. S1-S2 audible, no murmurs. Abdomen examination; soft, G-tube in place. No organomegaly. Bowel sounds are audible. Back examination; dressing applied over sacrum. Extremity examination; no peripheral edema. 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 Results Result Diagram: 06/29/16 0640 06/29/16 0640 Results 24 hrs Laboratory Tests Test 06/28/16 12:40 06/28/16 16:52 06/29/16 00:41 06/29/16 06:26 Bedside Glucose 95 85 94 105 Test 06/29/16 06:40 White Blood Count 14.1 H Red Blood Count 2.75 L Hemoglobin 8.4 L Hematocrit 25.3 L Mean Corpuscular Volume 92.0 Mean Corpuscular Hemoglobin 30.5 Mean Corpuscular Hemoglobin Concent 33.2 Red Cell Distribution Width 17.2 H Platelet Count 120 L Mean Platelet Volume 12.9 H Neutrophils % 81.0 H Band Neutrophils % 4.0 Lymphocytes % 10.0 L Monocytes % 4.0 Eosinophils % 1.0 Neutrophils # 11.4 H Lymphocytes # 1.4 Monocytes # 0.6 Eosinophils # 0.1 Sodium Level 129 L Potassium Level 4.0 Chloride Level 102 Carbon Dioxide Level 20 L Anion Gap 11 Blood Urea Nitrogen 55 H Creatinine 1.55 H Glucose Level 97 Calcium Level 7.2 L Total Bilirubin 0.2 Direct Bilirubin 0.10 Indirect Bilirubin 0.1 Aspartate Amino Transf (AST/SGOT) 45 Alanine Aminotransferase (ALT/SGPT) 34 Alkaline Phosphatase 149 H Total Protein 5.1 L Albumin 2.1 L Globulin 3.00 Albumin/Globulin Ratio 0.70 Medications Medications Current Medications Naloxone HCl (Narcan) 0.4 mg Q3M PRN IV DECREASED REPIRATORY RATE; Start at 10:30 Ondansetron HCl (Zofran Inj) 4 mg Q6H PRN IV NAUSEA AND/OR VOMITING; Start 01/12 at 10:30 Nitroglycerin (Nitroglycerin (Sl Tab) 0.4 Mg) 1 tab Q5M PRN SL CHEST PAIN; Start 06/06/16 at 10:30 Acetaminophen (Tylenol Liquid) 650 mg Q6H PRN PO PAIN LEVEL 1-3 OR FEVER; Start 06/06/16 at 10:30 Morphine Sulfate (morphine) 2 mg Q4H PRN IV PAIN LEVEL 7-10 Last administered on 06/15/16 00:22; Admin Dose 2 MG; Start 06/06/16 at 10:30 Docusate Sodium (Colace) 100 mg Q12H PRN PO CONSTIPATION; Start 06/06/16 at 10: 30 Magnesium Hydroxide (Milk Of Mag) 30 ml DAILY PRN PO CONSTIPATION; Start at 10:30 Bisacodyl (Dulcolax) 5 mg DAILY PRN PO CONSTIPATION; Start 06/06/16 at 10:30 Pantoprazole (Protonix Iv) 40 mg DAILY@06 IV Last administered on 06/29/16 06: 23; Admin Dose 40 MG; Start 06/07/16 at 06:00 Enoxaparin Sodium (Lovenox) 40 mg DAILY SC Last administered on 06/29/16 10:10 ; Admin Dose 40 MG; Start 06/07/16 at 09:00 Collagenase (Santyl) 1 applic DAILY TOP Last administered on 06/29/16 09:57; Admin Dose 1 APPLIC; Start 06/07/16 at 09:00 Collagenase (Santyl) 1 applic PRN PRN TOP WOUND CARE; Start 06/06/16 at 16:00 IV Flush (NS 10 ml) 10 ml PRN PRN IV IV PROTOCOL; Start 06/06/16 at 18:30 Ascorbic Acid (Vitamin C) 500 mg DAILY GTB Last administered on 06/29/16 09:54 ; Admin Dose 500 MG; Start 06/07/16 at 09:00 Aspirin (Aspirin) 325 mg DAILY GTB Last administered on 06/29/16 09:54; Admin Dose 325 MG; Start 06/07/16 at 09:00 Multivitamins (Thera-Plus) 5 ml DAILY GTB Last administered on 06/29/16 09:54; Admin Dose 5 ML; Start 06/07/16 at 09:00 Tamsulosin HCl (Flomax) 0.4 mg HS PO Last administered on 06/28/16 21:47; Admin Dose 0.4 MG; Start 06/07/16 at 21:00 Zinc Sulfate (Zinc Sulfate) 220 mg DAILY GTB Last administered on 06/29/16 09: 53; Admin Dose 220 MG; Start 06/07/16 at 09:00 Mupirocin (Bactroban) 1 applic BID TOP Last administered on 06/29/16 09:57; Admin Dose 1 APPLIC; Start 06/07/16 at 21:00 Metoclopramide HCl (Reglan) 10 mg Q6H PRN IV NAUSEA AND/OR VOMITING Last administered on 06/08/16 18:00; Admin Dose 10 MG; Start 06/08/16 at 09:30 Lorazepam (Ativan) 1 mg Q6H PRN IV AGITATION/ANXIETY Last administered on 12:34; Admin Dose 1 MG; Start 06/09/16 at 13:30 Atenolol (Tenormin) 12.5 mg DAILY PO Last administered on 06/29/16 09:56; Admin Dose 12.5 MG; Start 06/25/16 at 09:00 Diagnostic Test (Pha) (Accu-Chek) 1 ea Q6 XX Last administered on 06/26/16 06: 54; Admin Dose 1 EA; Start 06/25/16 at 18:00 Midodrine (Proamatine) 5 mg TID@,,17 GTB Last administered on 06/29/16 09: 56; Admin Dose 5 MG; Start 06/25/16 at 17:00 Citric Acid/ Sodium Citrate (Bicitra) 30 ml BID PO Last administered on 09:55; Admin Dose 30 ML; Start 06/26/16 at 21:00 GERALDINE CUNNINGHAM June 29, 2016 12:14
[2016-06-29] MEDS: ACETAMINOPHEN 650MG/20.3ML CUP PO PRN (12:50)
--- NOTE | 2016-06-29 13:21 | CONS ---
Date/Time of Note Date/Time of Note DATE: 06/29/16 TIME: 13:18 Assessment/Plan Assessment/Plan Chief Complaint/Hosp Course IMp: 1.CHF-systolic acute on chonic-reasonable volume status at this time 2.Resp failure s/p trach on vent 3.Cardiomyopathy-LVEF 25-30% 4.HTN-with episodes of borderline Hotn and now on midodrine 5.PPM-s/p interrogation with proper function-episodes of SVT and short episode VT 06/09/16/good battery life 6.Leukocytosis 7.Tachycardia-PAF/AFL rate controlled 8.Perforated viscous s/p IR drain placement 9. Renal insuff-? overdiuresis Recc: -Tele -Follow BP/Volume status closely and will continue hold lasix given development of renal insuff -Continue abx's and f/u cx data and treat fevers -Continue atenolol as tolerated/possible only -Continue asa/low dose lovenox -Continue abx's/f/u cx data -Follow IR drainage output -Palliative care following -Now on midodrine BP support as necessary and thus continue for now -Dose digoxin IVP to improve HR control Problems: Consultation Date/Type/Reason Admit Date/Time Jun 06, 2016 at 08:08 Initial Consult Date 06/07/16 Type of Consultation: Cardiology Reason for Consultation CHF/cardiomyopathy Referring Provider: HOLLI LINDER MD Exam/Review of Systems Vital Signs Vitals Vital Signs Date Time Temp Pulse Resp B/P Pulse Ox O2 Delivery O2 Flow Rate FiO2 06/29/16 12:18 110 06/29/16 11:37 100.0 26 126/93 97 06/29/16 10:56 32 06/28/16 16:59 Mechanical Ventilator Intake and Output 06/28/16 06/28/16 06/29/16 15:00 23:00 07:00 Intake Total 885 ml 750 ml Output Total 1500 ml 500 ml Balance -615 ml 250 ml Exam Review of Systems: CONSTITUTIONAL: No fevers, chills. PULMONARY: No sob CARDIOVASCULAR: No obvious chest pain/palpitations GASTROINTESTINAL: No nausea/vomiting. GENITOURINARY: No hematuria/dysuria. MUSCULOSKELETAL: No obvious myagias/arthalgias. PSYCHIATRIC: No documented depression. NEUROLOGIC: encephalopathic Constitutional: other (encephalopathic) Head: normocephalic ENMT: mucosa pink and moist Neck: jvd (9 cm water), supple Respiratory: diminished breath sounds (at bases/B) Cardiovascular: irregular rhythm (tachycardic) Gastrointestinal: non-tender, soft Musculoskeletal: muscle tone (normal) Extremities: edema (trace/B) Neurological: lethargic, other (Encephalopathic) Results Result Diagram: 06/29/16 0640 06/29/16 0640 Results 24 hrs Laboratory Tests Test 06/28/16 16:52 06/29/16 00:41 06/29/16 06:26 06/29/16 06:40 Bedside Glucose 85 94 105 White Blood Count 14.1 H Red Blood Count 2.75 L Hemoglobin 8.4 L Hematocrit 25.3 L Mean Corpuscular Volume 92.0 Mean Corpuscular Hemoglobin 30.5 Mean Corpuscular Hemoglobin Concent 33.2 Red Cell Distribution Width 17.2 H Platelet Count 120 L Mean Platelet Volume 12.9 H Neutrophils % 81.0 H Band Neutrophils % 4.0 Lymphocytes % 10.0 L Monocytes % 4.0 Eosinophils % 1.0 Neutrophils # 11.4 H Lymphocytes # 1.4 Monocytes # 0.6 Eosinophils # 0.1 Sodium Level 129 L Potassium Level 4.0 Chloride Level 102 Carbon Dioxide Level 20 L Anion Gap 11 Blood Urea Nitrogen 55 H Creatinine 1.55 H Glucose Level 97 Calcium Level 7.2 L Total Bilirubin 0.2 Direct Bilirubin 0.10 Indirect Bilirubin 0.1 Aspartate Amino Transf (AST/SGOT) 45 Alanine Aminotransferase (ALT/SGPT) 34 Alkaline Phosphatase 149 H Total Protein 5.1 L Albumin 2.1 L Globulin 3.00 Albumin/Globulin Ratio 0.70 Test 06/29/16 12:45 Bedside Glucose 134 Medications Medications Current Medications Naloxone HCl (Narcan) 0.4 mg Q3M PRN IV DECREASED REPIRATORY RATE; Start at 10:30 Ondansetron HCl (Zofran Inj) 4 mg Q6H PRN IV NAUSEA AND/OR VOMITING; Start 01/12 at 10:30 Nitroglycerin (Nitroglycerin (Sl Tab) 0.4 Mg) 1 tab Q5M PRN SL CHEST PAIN; Start 06/06/16 at 10:30 Acetaminophen (Tylenol Liquid) 650 mg Q6H PRN PO PAIN LEVEL 1-3 OR FEVER Last administered on 06/29/16 12:50; Admin Dose 650 MG; Start 06/06/16 at 10:30 Morphine Sulfate (morphine) 2 mg Q4H PRN IV PAIN LEVEL 7-10 Last administered on 06/15/16 00:22; Admin Dose 2 MG; Start 06/06/16 at 10:30 Docusate Sodium (Colace) 100 mg Q12H PRN PO CONSTIPATION; Start 06/06/16 at 10: 30 Magnesium Hydroxide (Milk Of Mag) 30 ml DAILY PRN PO CONSTIPATION; Start at 10:30 Bisacodyl (Dulcolax) 5 mg DAILY PRN PO CONSTIPATION; Start 06/06/16 at 10:30 Pantoprazole (Protonix Iv) 40 mg DAILY@06 IV Last administered on 06/29/16 06: 23; Admin Dose 40 MG; Start 06/07/16 at 06:00 Enoxaparin Sodium (Lovenox) 40 mg DAILY SC Last administered on 06/29/16 10:10 ; Admin Dose 40 MG; Start 06/07/16 at 09:00 Collagenase (Santyl) 1 applic DAILY TOP Last administered on 06/29/16 09:57; Admin Dose 1 APPLIC; Start 06/07/16 at 09:00 Collagenase (Santyl) 1 applic PRN PRN TOP WOUND CARE; Start 06/06/16 at 16:00 IV Flush (NS 10 ml) 10 ml PRN PRN IV IV PROTOCOL; Start 06/06/16 at 18:30 Ascorbic Acid (Vitamin C) 500 mg DAILY GTB Last administered on 06/29/16 09:54 ; Admin Dose 500 MG; Start 06/07/16 at 09:00 Aspirin (Aspirin) 325 mg DAILY GTB Last administered on 06/29/16 09:54; Admin Dose 325 MG; Start 06/07/16 at 09:00 Multivitamins (Thera-Plus) 5 ml DAILY GTB Last administered on 06/29/16 09:54; Admin Dose 5 ML; Start 06/07/16 at 09:00 Tamsulosin HCl (Flomax) 0.4 mg HS PO Last administered on 06/28/16 21:47; Admin Dose 0.4 MG; Start 06/07/16 at 21:00 Zinc Sulfate (Zinc Sulfate) 220 mg DAILY GTB Last administered on 06/29/16 09: 53; Admin Dose 220 MG; Start 06/07/16 at 09:00 Mupirocin (Bactroban) 1 applic BID TOP Last administered on 06/29/16 09:57; Admin Dose 1 APPLIC; Start 06/07/16 at 21:00 Metoclopramide HCl (Reglan) 10 mg Q6H PRN IV NAUSEA AND/OR VOMITING Last administered on 06/08/16 18:00; Admin Dose 10 MG; Start 06/08/16 at 09:30 Lorazepam (Ativan) 1 mg Q6H PRN IV AGITATION/ANXIETY Last administered on 12:34; Admin Dose 1 MG; Start 06/09/16 at 13:30 Atenolol (Tenormin) 12.5 mg DAILY PO Last administered on 06/29/16 09:56; Admin Dose 12.5 MG; Start 06/25/16 at 09:00 Diagnostic Test (Pha) (Accu-Chek) 1 ea Q6 XX Last administered on 06/29/16 12: 50; Admin Dose 1 EA; Start 06/25/16 at 18:00 Midodrine (Proamatine) 5 mg TID@,,17 GTB Last administered on 06/29/16 09: 56; Admin Dose 5 MG; Start 06/25/16 at 17:00 Citric Acid/ Sodium Citrate (Bicitra) 30 ml BID PO Last administered on 09:55; Admin Dose 30 ML; Start 06/26/16 at 21:00 JAYA GORE June 29, 2016 13:21
[2016-06-29] MEDS ORDERED: DIGOXIN 500 MCG INJ IV ONE (13:30)
[2016-06-29] MEDS ORDERED: VANCOMYCIN IV PER PHARMACY XX SCH (15:30)
[2016-06-29] MEDS ORDERED: LORAZEPAM 2 MG INJ IV ONE (15:30)
[2016-06-29] MEDS ORDERED: VANCOMYCIN 1.5 GM in SOD CHLORIDE 0.9% 250 ML IVPB SCH (17:30)
--- NOTE | 2016-06-29 17:43 | PN ---
Date/Time of Note Date/Time of Note DATE: 06/29/16 TIME: 17:41 Assessment/Plan VTE Prophylaxis VTE Prophylaxis Intervention: other Lines/Catheters IV Catheter Type (from Nrs): PICC Line Central line still needed: Yes Urinary Cath still in place: Yes Reason Cath still needed: other (indicate) Assessment/Plan Chief Complaint/Hosp Course IMPRESSION: 1. Sepsis 2. Pneumonia. aspiration 3. Leukocytosis. 4. Hematuria. better 5. Lactic acidosis. better 6. Respiratory failure. 7. Gastrostomy tube placement. 8. Anemia. 9. Atrial fibrillation. 10. History of congestive heart failure with decreased ejection fraction. 11. vdrf 12. History of paroxysmal atrial fibrillation. 13. The patient now has decubitus. 14 uti 15 In the left anterior mid pelvis there is an approximate 6.3 x 3.2 x 4.7 cm air and fluid collection not definitely bowel suspicious for an abscess/ localized perforation. Diverticula in sigmoid and descending colon. Small amount of ascites. 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) Exam/Review of Systems Vital Signs Vitals Vital Signs Date Time Temp Pulse Resp B/P Pulse Ox O2 Delivery O2 Flow Rate FiO2 06/29/16 17:09 125 06/29/16 17:06 25 98 35 06/29/16 15:45 98.5 95/55 06/28/16 16:59 Mechanical Ventilator Intake and Output 06/28/16 06/28/16 06/29/16 14:59 22:59 06:59 Intake Total 885 ml 750 ml Output Total 1500 ml 500 ml Balance -615 ml 250 ml Exam Neck: supple Respiratory: diminished breath sounds Cardiovascular: regular rate and rhythm Gastrointestinal: bowel sounds, soft Musculoskeletal: joint tenderness, nl extremities to inspection Results Result Diagram: 06/29/16 0640 06/29/16 0640 Results 24 hrs Laboratory Tests Test 06/29/16 00:41 06/29/16 06:26 06/29/16 06:40 06/29/16 12:45 Bedside Glucose 94 105 134 White Blood Count 14.1 H Red Blood Count 2.75 L Hemoglobin 8.4 L Hematocrit 25.3 L Mean Corpuscular Volume 92.0 Mean Corpuscular Hemoglobin 30.5 Mean Corpuscular Hemoglobin Concent 33.2 Red Cell Distribution Width 17.2 H Platelet Count 120 L Mean Platelet Volume 12.9 H Neutrophils % 81.0 H Band Neutrophils % 4.0 Lymphocytes % 10.0 L Monocytes % 4.0 Eosinophils % 1.0 Neutrophils # 11.4 H Lymphocytes # 1.4 Monocytes # 0.6 Eosinophils # 0.1 Sodium Level 129 L Potassium Level 4.0 Chloride Level 102 Carbon Dioxide Level 20 L Anion Gap 11 Blood Urea Nitrogen 55 H Creatinine 1.55 H Glucose Level 97 Calcium Level 7.2 L Total Bilirubin 0.2 Direct Bilirubin 0.10 Indirect Bilirubin 0.1 Aspartate Amino Transf (AST/SGOT) 45 Alanine Aminotransferase (ALT/SGPT) 34 Alkaline Phosphatase 149 H Total Protein 5.1 L Albumin 2.1 L Globulin 3.00 Albumin/Globulin Ratio 0.70 Test 06/29/16 15:04 Bedside Glucose 137 Medications Medications Current Medications Naloxone HCl (Narcan) 0.4 mg Q3M PRN IV DECREASED REPIRATORY RATE; Start at 10:30 Ondansetron HCl (Zofran Inj) 4 mg Q6H PRN IV NAUSEA AND/OR VOMITING; Start 01/12 at 10:30 Nitroglycerin (Nitroglycerin (Sl Tab) 0.4 Mg) 1 tab Q5M PRN SL CHEST PAIN; Start 06/06/16 at 10:30 Acetaminophen (Tylenol Liquid) 650 mg Q6H PRN PO PAIN LEVEL 1-3 OR FEVER Last administered on 06/29/16 12:50; Admin Dose 650 MG; Start 06/06/16 at 10:30 Morphine Sulfate (morphine) 2 mg Q4H PRN IV PAIN LEVEL 7-10 Last administered on 06/15/16 00:22; Admin Dose 2 MG; Start 06/06/16 at 10:30 Docusate Sodium (Colace) 100 mg Q12H PRN PO CONSTIPATION; Start 06/06/16 at 10: 30 Magnesium Hydroxide (Milk Of Mag) 30 ml DAILY PRN PO CONSTIPATION; Start at 10:30 Bisacodyl (Dulcolax) 5 mg DAILY PRN PO CONSTIPATION; Start 06/06/16 at 10:30 Pantoprazole (Protonix Iv) 40 mg DAILY@06 IV Last administered on 06/29/16 06: 23; Admin Dose 40 MG; Start 06/07/16 at 06:00 Enoxaparin Sodium (Lovenox) 40 mg DAILY SC Last administered on 06/29/16 10:10 ; Admin Dose 40 MG; Start 06/07/16 at 09:00 Collagenase (Santyl) 1 applic DAILY TOP Last administered on 06/29/16 09:57; Admin Dose 1 APPLIC; Start 06/07/16 at 09:00 Collagenase (Santyl) 1 applic PRN PRN TOP WOUND CARE; Start 06/06/16 at 16:00 IV Flush (NS 10 ml) 10 ml PRN PRN IV IV PROTOCOL; Start 06/06/16 at 18:30 Ascorbic Acid (Vitamin C) 500 mg DAILY GTB Last administered on 06/29/16 09:54 ; Admin Dose 500 MG; Start 06/07/16 at 09:00 Aspirin (Aspirin) 325 mg DAILY GTB Last administered on 06/29/16 09:54; Admin Dose 325 MG; Start 06/07/16 at 09:00 Multivitamins (Thera-Plus) 5 ml DAILY GTB Last administered on 06/29/16 09:54; Admin Dose 5 ML; Start 06/07/16 at 09:00 Tamsulosin HCl (Flomax) 0.4 mg HS PO Last administered on 06/28/16 21:47; Admin Dose 0.4 MG; Start 06/07/16 at 21:00 Zinc Sulfate (Zinc Sulfate) 220 mg DAILY GTB Last administered on 06/29/16 09: 53; Admin Dose 220 MG; Start 06/07/16 at 09:00 Mupirocin (Bactroban) 1 applic BID TOP Last administered on 06/29/16 09:57; Admin Dose 1 APPLIC; Start 06/07/16 at 21:00 Metoclopramide HCl (Reglan) 10 mg Q6H PRN IV NAUSEA AND/OR VOMITING Last administered on 06/08/16 18:00; Admin Dose 10 MG; Start 06/08/16 at 09:30 Lorazepam (Ativan) 1 mg Q6H PRN IV AGITATION/ANXIETY Last administered on 12:34; Admin Dose 1 MG; Start 06/09/16 at 13:30 Atenolol (Tenormin) 12.5 mg DAILY PO Last administered on 06/29/16 09:56; Admin Dose 12.5 MG; Start 06/25/16 at 09:00 Diagnostic Test (Pha) (Accu-Chek) 1 ea Q6 XX Last administered on 06/29/16 12: 50; Admin Dose 1 EA; Start 06/25/16 at 18:00 Midodrine (Proamatine) 5 mg TID@,,17 GTB Last administered on 06/29/16 13: 25; Admin Dose 5 MG; Start 06/25/16 at 17:00 Citric Acid/ Sodium Citrate 30 ml 30 ml BID PO Last administered on 06/29/16 09 :55; Admin Dose 30 ML; Start 06/26/16 at 21:00 Sodium Chloride 1,000 ml @ 125 mls/hr Q8H IV ; Start 06/29/16 at 15:30 Piperacillin Sod/ Tazobactam Sod 50 ml @ 100 mls/hr Q8 IVPB ; Start 06/29/16 at 16:15 Vancomycin HCl/ Sodium Chloride (Vancocin/NS) 250 ml @ 83.333 mls/ hr NOW IVPB ; Start 06/29/16 at 17:30; Stop 06/29/16 at 20:29 HOLIL LINDER MD June 29, 2016 17:43
[2016-06-29] MEDS: SOD CHLORIDE 0.9% 1,000 ML IV SCH ×2 (18:01→21:56)
[2016-06-29] MEDS: PIPER-TAZO 2.25 GM (PMX) 50 ML IVPB SCH ×2 (18:02→21:56)
[2016-06-29] MEDS: TAMSULOSIN (SR) 0.4 MG CAP PO SCH (21:11)
--- NOTE | 2016-06-29 21:55 | CONS ---
Date/Time of Note Date/Time of Note DATE: 06/29/16 TIME: 21:53 Assessment/Plan Assessment/Plan Chief Complaint/Hosp Course SUBJECTIVE: No changes overnight. Low grade temps, NAD MICROBIOLOGY: Stool for C. diff came back negative. Urine culture on 2016 negative. INDWELLINGS: Trach, PEG, Alfonso, PICC line. PHYSICAL EXAMINATION: GENERAL: This is a well-developed, fragile, chronically ill-appearing, elderly man who is in no distress. HEENT: Head atraumatic, normocephalic. Sclerae anicteric. Buccal mucosa dry. NECK: Supple. Tracheostomy present. CHEST: Rise symmetrical. Breath sounds diminished to bases. HEART: S1, S2. ABDOMEN: Soft. Bowel tones hypoactive. EXTREMITIES: Without cyanosis. Bilateral trace edema. ASSESSMENT: 1. Status post sepsis with shock. 2. Status post contained perforated viscus, requiring drainage catheter placement that was discontinued. 3. Status post pneumonia, urinary tract infection, and methicillin-resistant Staphylococcus aureus bacteremia on admission. 4. Coronary artery disease, chronic atrial fibrillation. 5. Encephalopathy. 6. Sacral decubitus. PLAN: Abx restarted for low grade temps and tachycardia (Vanco/Zosyn), will follow cxr and cx's DW staff Problems: Consultation Date/Type/Reason Admit Date/Time Jun 06, 2016 at 08:08 Initial Consult Date 06/07/16 Type of Consultation: ID Referring Provider: HOLLI LINDER MD Exam/Review of Systems Vital Signs Vitals Vital Signs Date Time Temp Pulse Resp B/P Pulse Ox O2 Delivery O2 Flow Rate FiO2 06/29/16 21:00 30 06/29/16 20:31 91 06/29/16 20:12 98.5 16 111/64 94 06/28/16 16:59 Mechanical Ventilator Intake and Output 06/28/16 06/28/16 06/29/16 14:59 22:59 06:59 Intake Total 885 ml 750 ml Output Total 1500 ml 500 ml Balance -615 ml 250 ml Results Result Diagram: 06/29/16 0640 06/29/16 0640 Results 24 hrs Laboratory Tests Test 06/29/16 00:41 06/29/16 06:26 06/29/16 06:40 06/29/16 12:45 Bedside Glucose 94 105 134 White Blood Count 14.1 H Red Blood Count 2.75 L Hemoglobin 8.4 L Hematocrit 25.3 L Mean Corpuscular Volume 92.0 Mean Corpuscular Hemoglobin 30.5 Mean Corpuscular Hemoglobin Concent 33.2 Red Cell Distribution Width 17.2 H Platelet Count 120 L Mean Platelet Volume 12.9 H Neutrophils % 81.0 H Band Neutrophils % 4.0 Lymphocytes % 10.0 L Monocytes % 4.0 Eosinophils % 1.0 Neutrophils # 11.4 H Lymphocytes # 1.4 Monocytes # 0.6 Eosinophils # 0.1 Sodium Level 129 L Potassium Level 4.0 Chloride Level 102 Carbon Dioxide Level 20 L Anion Gap 11 Blood Urea Nitrogen 55 H Creatinine 1.55 H Glucose Level 97 Calcium Level 7.2 L Total Bilirubin 0.2 Direct Bilirubin 0.10 Indirect Bilirubin 0.1 Aspartate Amino Transf (AST/SGOT) 45 Alanine Aminotransferase (ALT/SGPT) 34 Alkaline Phosphatase 149 H Total Protein 5.1 L Albumin 2.1 L Globulin 3.00 Albumin/Globulin Ratio 0.70 Test 06/29/16 15:04 06/29/16 18:15 Bedside Glucose 137 103 Medications Medications Current Medications Naloxone HCl (Narcan) 0.4 mg Q3M PRN IV DECREASED REPIRATORY RATE; Start at 10:30 Ondansetron HCl (Zofran Inj) 4 mg Q6H PRN IV NAUSEA AND/OR VOMITING; Start 01/12 at 10:30 Nitroglycerin (Nitroglycerin (Sl Tab) 0.4 Mg) 1 tab Q5M PRN SL CHEST PAIN; Start 06/06/16 at 10:30 Acetaminophen (Tylenol Liquid) 650 mg Q6H PRN PO PAIN LEVEL 1-3 OR FEVER Last administered on 06/29/16 12:50; Admin Dose 650 MG; Start 06/06/16 at 10:30 Morphine Sulfate (morphine) 2 mg Q4H PRN IV PAIN LEVEL 7-10 Last administered on 06/15/16 00:22; Admin Dose 2 MG; Start 06/06/16 at 10:30 Docusate Sodium (Colace) 100 mg Q12H PRN PO CONSTIPATION; Start 06/06/16 at 10: 30 Magnesium Hydroxide (Milk Of Mag) 30 ml DAILY PRN PO CONSTIPATION; Start at 10:30 Bisacodyl (Dulcolax) 5 mg DAILY PRN PO CONSTIPATION; Start 06/06/16 at 10:30 Pantoprazole (Protonix Iv) 40 mg DAILY@06 IV Last administered on 06/29/16 06: 23; Admin Dose 40 MG; Start 06/07/16 at 06:00 Enoxaparin Sodium (Lovenox) 40 mg DAILY SC Last administered on 06/29/16 10:10 ; Admin Dose 40 MG; Start 06/07/16 at 09:00 Collagenase (Santyl) 1 applic DAILY TOP Last administered on 06/29/16 09:57; Admin Dose 1 APPLIC; Start 06/07/16 at 09:00 Collagenase (Santyl) 1 applic PRN PRN TOP WOUND CARE; Start 06/06/16 at 16:00 IV Flush (NS 10 ml) 10 ml PRN PRN IV IV PROTOCOL; Start 06/06/16 at 18:30 Ascorbic Acid (Vitamin C) 500 mg DAILY GTB Last administered on 06/29/16 09:54 ; Admin Dose 500 MG; Start 06/07/16 at 09:00 Aspirin (Aspirin) 325 mg DAILY GTB Last administered on 06/29/16 09:54; Admin Dose 325 MG; Start 06/07/16 at 09:00 Multivitamins (Thera-Plus) 5 ml DAILY GTB Last administered on 06/29/16 09:54; Admin Dose 5 ML; Start 06/07/16 at 09:00 Tamsulosin HCl (Flomax) 0.4 mg HS PO Last administered on 06/29/16 21:11; Admin Dose 0.4 MG; Start 06/07/16 at 21:00 Mupirocin (Bactroban) 1 applic BID TOP Last administered on 06/29/16 21:10; Admin Dose 1 APPLIC; Start 06/07/16 at 21:00 Metoclopramide HCl (Reglan) 10 mg Q6H PRN IV NAUSEA AND/OR VOMITING Last administered on 06/08/16 18:00; Admin Dose 10 MG; Start 06/08/16 at 09:30 Lorazepam (Ativan) 1 mg Q6H PRN IV AGITATION/ANXIETY Last administered on 12:34; Admin Dose 1 MG; Start 06/09/16 at 13:30 Atenolol (Tenormin) 12.5 mg DAILY PO Last administered on 06/29/16 09:56; Admin Dose 12.5 MG; Start 06/25/16 at 09:00 Diagnostic Test (Pha) (Accu-Chek) 1 ea Q6 XX Last administered on 06/29/16 18: 14; Admin Dose 1 EA; Start 06/25/16 at 18:00 Midodrine (Proamatine) 5 mg TID@09,13,17 GTB Last administered on 06/29/16 18: 14; Admin Dose 5 MG; Start 06/25/16 at 17:00 Citric Acid/ Sodium Citrate 30 ml 30 ml BID PO Last administered on 06/29/16 09 :55; Admin Dose 30 ML; Start 06/26/16 at 21:00 Sodium Chloride 1,000 ml @ 125 mls/hr Q8H IV Last administered on 06/29/16 18: 01; Admin Dose 125 MLS/HR; Start 06/29/16 at 15:30 Piperacillin Sod/ Tazobactam Sod 50 ml @ 100 mls/hr Q8 IVPB Last administered on 06/29/16 18:02; Admin Dose 100 MLS/HR; Start 06/29/16 at 16:15 Vancomycin HCl (Vancocin) 250 ml @ 125 mls/hr Q36H IVPB ; Start 07/01/16 at 07: 00 JOSE G CUNNINGHAM NP June 29, 2016 21:55
--- NOTE | 2016-06-29 23:37 | PN ---
Date/Time of Note Date/Time of Note DATE: 06/29/16 TIME: 23:36 Assessment/Plan Lines/Catheters IV Catheter Type (from [facility]): PICC Line Alfonso in Place (from [facility]): Yes Assessment/Plan Chief Complaint/Hosp Course 1. Contained perforated viscous s/p IR drain 06/11. Cx noted. Leukocytosis resolved. Tube feeds started. Bowel function. Drain dcd. s/p Abx. Persistent leukocytosis. -? paredes cx and scan 2. Pneumonia -pulmonary toilette -abx 3. Sepsis, significant leukocytosis. Improving -abx -as above 4. Sacral decubitus ulcer -off load -nutrition optimization -vit c -local care 5. Chronic AFib -rate control -optimize electrolytes -tx infections 6. Anemia, dropped again -? source -? tx 7. Hypoalbuminemia -eventual nutritional optimization 8. CHF -judicious fluid management -cardiac optimization Thank you, Problems: Subjective 24 Hr Interval Summary Leukocytosis. No f/c. No cough. No sz. No rashes. No bloating. No vomiting. No bleeding. TFs. Bowel function. Exam/Review of Systems Vital Signs Vitals Vital Signs Date Time Temp Pulse Resp B/P Pulse Ox O2 Delivery O2 Flow Rate FiO2 06/29/16 22:51 85 30 98 35 06/29/16 20:12 98.5 111/64 06/28/16 16:59 Mechanical Ventilator Intake and Output 06/28/16 06/28/16 06/29/16 15:00 23:00 07:00 Intake Total 885 ml 750 ml Output Total 1500 ml 500 ml Balance -615 ml 250 ml Exam Free Text/Dictation Constitutional: No alert, No distress, No oriented Psych: confusion, No anxiety Head: atraumatic, normocephalic Eyes: PERRL, nl conjunctiva, No icteric ENMT: mucosa pink and moist, nl external ears & nose, nl lips & teeth Neck: jvd (min), non-tender Respiratory: No congested cough, No labored breathing Cardiovascular: No edema, No regular rate and rhythm Gastrointestinal: soft, PEG No distended, No firm, No rebound or guarding Musculoskeletal: No joint tenderness, No nl gait and stance Extremities: No calf tenderness, No cyanosis Neurological: No nl mental status, No nl speech, No nl strength Skin: nl turgor, rash or lesions (Sacral and LE decubitus ulcerations), No diaphoresis Lymph: nl lymph nodes Results Result Diagram: 06/29/16 0640 06/29/16 0640 DAREK AHMADI MD June 29, 2016 23:37
[2016-06-30] VITALS (23 sets, daily range): BP systolic 94–119; BP diastolic 51–67; PULSE 85–132; RESP 18–44
[2016-06-30] MEDS: IPRATROPIUM (HFA) 12.9 GM INHALER INH SCH ×6 (01:14→23:34)
[2016-06-30] MEDS: ALBUTEROL 18 GM INHALER INH SCH ×6 (01:14→23:35)
[2016-06-30] MEDS: PIPER-TAZO 2.25 GM (PMX) 50 ML IVPB SCH ×3 (05:37→23:00)
[2016-06-30] MEDS: PANTOPRAZOLE 40 MG INJ IV SCH (05:37)
[2016-06-30] MEDS: SOD CHLORIDE 0.9% 1,000 ML IV SCH ×2 (05:41→13:33)
[2016-06-30] MEDS: ACCU-CHEK XX SCH ×4 (05:42→17:49)
[2016-06-30 06:23] LABS: ADD SCAN DIFF NO
[2016-06-30 06:32] LABS: HEMATOCRIT 24.4 % (42.0-52.0); HEMOGLOBIN 8.1 g/dl (14.0-18.0); MEAN CORPUSCULAR HEMOGLOBIN 30.5 pg (29.0-33.0); MEAN CORPUSCULAR HGB CONC 33.2 g/dl (32.0-37.0); MEAN CORPUSCULAR VOLUME 91.7 fl (82.0-101.0); MEAN PLATELET VOLUME 12.6 fl (7.4-10.4); PLATELET COUNT 142 10^3/UL (140-415); RED BLOOD COUNT 2.66 10^6/ul (4.70-6.10); RED CELL DISTRIBUTION WIDTH 17.5 % (11.5-14.5); WHITE BLOOD COUNT 13.2 10^3/ul (4.8-10.8)
[2016-06-30 07:17] LABS: ALBUMIN/GLOBULIN RATIO 0.66; BILIRUBIN,DIRECT 0.2 mg/dl (0.00-0.20); BILIRUBIN,INDIRECT 0.3 mg/dl (0-1.1); BILIRUBIN,TOTAL 0.5 mg/dl (0.2-1.3); CALCIUM 7.2 mg/dl (8.4-10.2); CREATININE 1.54 mg/dl (0.61-1.24); POTASSIUM 3.5 mmol/L (3.5-5.1)
[2016-06-30] MEDS: MULTIVITAMINS 5 ML CUP GTB SCH (08:37)
[2016-06-30] MEDS: ASPIRIN 325 MG TAB GTB SCH (08:37)
[2016-06-30] MEDS: ATENOLOL 25 MG TAB PO SCH ×2 (08:38→23:00)
[2016-06-30] MEDS: CITRIC ACID/SODIUM CITRATE 15 ML CUP PO SCH ×2 (08:38→21:00)
[2016-06-30] MEDS: ASCORBIC ACID 500 MG TAB GTB SCH (08:38)
[2016-06-30] MEDS: MIDODRINE 5 MG TAB GTB SCH ×3 (08:38→17:49)
[2016-06-30] MEDS: MUPIROCIN 2% 22 GM OINT TOP SCH ×2 (08:39→21:07)
[2016-06-30] MEDS: COLLAGENASE 30 GM TUBE TOP SCH (08:39)
[2016-06-30] MEDS: ENOXAPARIN 40 MG/0.4 ML SYG SC SCH (08:48)
--- NOTE | 2016-06-30 11:24 | CONS ---
Date/Time of Note Date/Time of Note DATE: 06/30/16 TIME: 11:21 Assessment/Plan Assessment/Plan Additional Assessment/Plan Ventilator settings; AC of 14, tidal volume 500, PEEP of 5, 45% FiO2. Assessment recommendations; 1. Patient admitted for severe sepsis from multiple decubitus ulcers. 2. Chronic respiratory failure. 3. Patient remains ventilator dependent. 5. Advanced dementia. 6. Recent bowel perforation, patient did not require laparotomy. Currently on TPN. Continue current treatment. Prognosis is poor. Consultation Date/Type/Reason Admit Date/Time Jun 06, 2016 at 08:08 Initial Consult Date 06/07/16 Type of Consultation: Pulmonary Referring Provider: HOLLI LINDER MD 24 HR Interval Summary Free Text/Dictation Patient condition remains stable. Remains essentially unresponsive. General exam; elderly male, on ventilator via tracheostomy unresponsive. Currently in no distress. Exam/Review of Systems Vital Signs Vitals Vital Signs Date Time Temp Pulse Resp B/P Pulse Ox O2 Delivery O2 Flow Rate FiO2 06/30/16 09:10 87 06/30/16 08:53 30 06/30/16 07:42 98.6 18 113/65 98 06/28/16 16:59 Mechanical Ventilator Intake and Output 06/29/16 06/29/16 06/30/16 15:00 23:00 07:00 Intake Total 2450 ml 1530 ml Output Total 800 ml 650 ml Balance 1650 ml 880 ml Exam HEENT exam is; supple neck, no JVD. No lymphadenopathy. Midline trachea. No thyromegaly. No neck masses. Tracheostomy in place with clean insertion site. Patient is edentulous. Has bilateral corneal opacities. Chest examination; diminished but clear vessel. S1-S2 audible, no murmurs. Abdomen examination; soft, G-tube in place. No organomegaly. Bowel sounds are sluggish. Extremity examination: No peripheral edema. Back exam is; multiple sacral ulcers are present. TUBE STATION ATTENDANT examination; patient remains unresponsive. Results Result Diagram: 06/30/16 0500 06/30/16 0520 Results 24 hrs Laboratory Tests Test 06/29/16 12:45 06/29/16 15:04 06/29/16 18:15 06/30/16 00:22 Bedside Glucose 134 137 103 107 Test 06/30/16 05:00 06/30/16 05:20 06/30/16 05:35 White Blood Count 13.2 H Red Blood Count 2.66 L Hemoglobin 8.1 L Hematocrit 24.4 L Mean Corpuscular Volume 91.7 Mean Corpuscular Hemoglobin 30.5 Mean Corpuscular Hemoglobin Concent 33.2 Red Cell Distribution Width 17.5 H Platelet Count 142 Mean Platelet Volume 12.6 H Neutrophils % Lymphocytes % Monocytes % Neutrophils # Lymphocytes # Monocytes # Sodium Level 133 L Potassium Level 3.5 Chloride Level 104 Carbon Dioxide Level 21 Anion Gap 12 Blood Urea Nitrogen 54 H Creatinine 1.54 H Glucose Level 116 Calcium Level 7.2 L Total Bilirubin 0.5 Direct Bilirubin 0.20 Indirect Bilirubin 0.3 Aspartate Amino Transf (AST/SGOT) 43 Alanine Aminotransferase (ALT/SGPT) 41 Alkaline Phosphatase 145 H Total Protein 5.0 L Albumin 2.0 L Globulin 3.00 Albumin/Globulin Ratio 0.66 Bedside Glucose 114 Medications Medications Current Medications Naloxone HCl (Narcan) 0.4 mg Q3M PRN IV DECREASED REPIRATORY RATE; Start at 10:30 Ondansetron HCl (Zofran Inj) 4 mg Q6H PRN IV NAUSEA AND/OR VOMITING; Start 01/12 at 10:30 Nitroglycerin (Nitroglycerin (Sl Tab) 0.4 Mg) 1 tab Q5M PRN SL CHEST PAIN; Start 06/06/16 at 10:30 Acetaminophen (Tylenol Liquid) 650 mg Q6H PRN PO PAIN LEVEL 1-3 OR FEVER Last administered on 06/29/16 12:50; Admin Dose 650 MG; Start 06/06/16 at 10:30 Morphine Sulfate (morphine) 2 mg Q4H PRN IV PAIN LEVEL 7-10 Last administered on 06/15/16 00:22; Admin Dose 2 MG; Start 06/06/16 at 10:30 Docusate Sodium (Colace) 100 mg Q12H PRN PO CONSTIPATION; Start 06/06/16 at 10: 30 Magnesium Hydroxide (Milk Of Mag) 30 ml DAILY PRN PO CONSTIPATION; Start at 10:30 Bisacodyl (Dulcolax) 5 mg DAILY PRN PO CONSTIPATION; Start 06/06/16 at 10:30 Pantoprazole (Protonix Iv) 40 mg DAILY@06 IV Last administered on 06/30/16 05: 37; Admin Dose 40 MG; Start 06/07/16 at 06:00 Enoxaparin Sodium (Lovenox) 40 mg DAILY SC Last administered on 06/30/16 08:48 ; Admin Dose 40 MG; Start 06/07/16 at 09:00 Collagenase (Santyl) 1 applic DAILY TOP Last administered on 06/30/16 08:39; Admin Dose 1 APPLIC; Start 06/07/16 at 09:00 Collagenase (Santyl) 1 applic PRN PRN TOP WOUND CARE; Start 06/06/16 at 16:00 IV Flush (NS 10 ml) 10 ml PRN PRN IV IV PROTOCOL; Start 06/06/16 at 18:30 Ascorbic Acid (Vitamin C) 500 mg DAILY GTB Last administered on 06/30/16 08:38 ; Admin Dose 500 MG; Start 06/07/16 at 09:00 Aspirin (Aspirin) 325 mg DAILY GTB Last administered on 06/30/16 08:37; Admin Dose 325 MG; Start 06/07/16 at 09:00 Multivitamins (Thera-Plus) 5 ml DAILY GTB Last administered on 06/30/16 08:37; Admin Dose 5 ML; Start 06/07/16 at 09:00 Tamsulosin HCl (Flomax) 0.4 mg HS PO Last administered on 06/29/16 21:11; Admin Dose 0.4 MG; Start 06/07/16 at 21:00 Mupirocin (Bactroban) 1 applic BID TOP Last administered on 06/30/16 08:39; Admin Dose 1 APPLIC; Start 06/07/16 at 21:00 Metoclopramide HCl (Reglan) 10 mg Q6H PRN IV NAUSEA AND/OR VOMITING Last administered on 06/08/16 18:00; Admin Dose 10 MG; Start 06/08/16 at 09:30 Lorazepam (Ativan) 1 mg Q6H PRN IV AGITATION/ANXIETY Last administered on 12:34; Admin Dose 1 MG; Start 06/09/16 at 13:30 Atenolol (Tenormin) 12.5 mg DAILY PO Last administered on 06/30/16 08:38; Admin Dose 12.5 MG; Start 06/25/16 at 09:00 Diagnostic Test (Pha) (Accu-Chek) 1 ea Q6 XX Last administered on 06/29/16 18: 14; Admin Dose 1 EA; Start 06/25/16 at 18:00 Midodrine (Proamatine) 5 mg TID@09,,17 GTB Last administered on 06/30/16 08: 38; Admin Dose 5 MG; Start 06/25/16 at 17:00 Citric Acid/ Sodium Citrate 30 ml 30 ml BID PO Last administered on 06/30/16 08 :38; Admin Dose 30 ML; Start 06/26/16 at 21:00 Sodium Chloride 1,000 ml @ 125 mls/hr Q8H IV Last administered on 06/30/16 05: 41; Admin Dose 125 MLS/HR; Start 06/29/16 at 15:30 Piperacillin Sod/ Tazobactam Sod 50 ml @ 100 mls/hr Q8 IVPB Last administered on 06/30/16 05:37; Admin Dose 100 MLS/HR; Start 06/29/16 at 16:15 Vancomycin HCl (Vancocin) 250 ml @ 125 mls/hr Q36H IVPB ; Start 07/01/16 at 07: 00 Potassium Chloride (Potassium Chloride Pwd/Soln) 40 meq DAILY GTB ; Start at 10:30 GERALDINE CUNNINGHAM June 30, 2016 11:24
[2016-06-30 11:27] LABS: EOSINOPHILS # 0.1 10^3/ul (0.0-0.5); LYMPHOCYTES # 2.2 10^3/ul (0.8-2.9); MONOCYTE # 0.1 10^3/ul (0.3-0.9); NEUTROPHIL # 9.8 10^3/ul (1.6-7.5)
[2016-06-30] MEDS: POTASSIUM CHLORIDE 20 MEQ POWDER FOR ORAL SOLN GTB SCH (12:07)
--- NOTE | 2016-06-30 13:33 | PN ---
DATE: 06/30/2016 SUBJECTIVE: No acute changes overnight. The patient is lying comfortably in bed. No fevers. He i s slightly tachycardic. LABORATORY: WBC today 13.2 with H and H 8.1 and 24.4, platelets 142, no shift, bands 7, lymphs 17, BUN 54, creatinine 1.54. INDWELLINGS: Trach, PEG, Alfonso, PICC line. ANTIMICROBIALS: The patient was started yesterday on: 1. Vancomycin. 2. Zosyn. PHYSICAL EXAMINATION: GENERAL: This is a chronically ill-appearing, elderly man who is in no distress. HEENT: Head atraumatic, normocephalic. Sclerae anicteric. Buccal mucosa dry. NECK: Supple. CHEST: Rise symmetrical. Breath sounds diminished at the bases. HEART: S1, S2. ABDOMEN: Soft, bowel tones present. EXTREMITIES: No cyanosis. ASSESSMENT: 1. Sepsis, status post symptomatic hypotension and tachycardia yesterday. Also, status post low gr april fever yesterday, restarted on broad-spectrum antibiotics. 2. Status post perforated viscus drainage. 3. Status post pneumoniae, urinary tract infection and methicillin-resistant Staphylococcus aureus bacteremia. 4. Atrial fibrillation. 5. Sacral decubitus. 6. Encephalopathy. PLAN: The patient remains stable. Urine culture from 06/29/2016 negative. We are going to order a chest x-ray and blood cultures today. Dictated By: JOSE G CUNNINGHAM POLY PACKER AND HEAT SEALER for RASHIDA HUSSEIN/TRACY Conf#: [id number] DID#: [id number]
--- NOTE | 2016-06-30 14:42 | CONS ---
Date/Time of Note Date/Time of Note DATE: 06/30/16 TIME: 14:39 Assessment/Plan Assessment/Plan Chief Complaint/Hosp Course IMp: 1.CHF-systolic acute on chonic-reasonable volume status at this time 2.Resp failure s/p trach on vent 3.Cardiomyopathy-LVEF 25-30% 4.HTN-with episodes of borderline Hotn and now on midodrine 5.PPM-s/p interrogation with proper function-episodes of SVT and short episode VT 06/09/16/good battery life 6.Leukocytosis 7.Tachycardia-PAF/AFL rate controlled 8.Perforated viscous s/p IR drain placement 9. Renal insuff-? overdiuresis Recc: -Tele -Follow BP/Volume status closely and will continue hold lasix given development of renal insuff -Continue abx's and f/u cx data and treat fevers -Continue atenolol as tolerated/possible only -Continue asa/low dose lovenox -Continue abx's/f/u cx data -Follow IR drainage output -Palliative care following -Now on midodrine BP support as necessary and thus continue for now -Will give additional dose IVP digoxin i attempt to improve BP Problems: Consultation Date/Type/Reason Admit Date/Time Jun 06, 2016 at 08:08 Initial Consult Date 06/07/16 Type of Consultation: Cardiology Reason for Consultation AFL Referring Provider: HOLLI LINDER MD Exam/Review of Systems Vital Signs Vitals Vital Signs Date Time Temp Pulse Resp B/P Pulse Ox O2 Delivery O2 Flow Rate FiO2 06/30/16 12:51 132 06/30/16 12:34 98.0 18 115/64 100 06/30/16 11:28 30 06/28/16 16:59 Mechanical Ventilator Intake and Output 06/29/16 06/29/16 06/30/16 15:00 23:00 07:00 Intake Total 2450 ml 1530 ml Output Total 800 ml 650 ml Balance 1650 ml 880 ml Exam Review of Systems: CONSTITUTIONAL: No fevers, chills. PULMONARY: trached CARDIOVASCULAR: No chest pain/palpitations GASTROINTESTINAL: No nausea/vomiting. GENITOURINARY: No hematuria/dysuria. MUSCULOSKELETAL: No myagias/arthalgias. PSYCHIATRIC: The patient denies depression. NEUROLOGIC: lethargic Constitutional: other (sleeping) Psych: confusion Head: normocephalic Neck: jvd (9 cm water), supple Respiratory: diminished breath sounds (at bases/B) Cardiovascular: regular rate and rhythm Gastrointestinal: non-tender, soft Musculoskeletal: muscle tone (normal) Extremities: edema (none) Neurological: other (No focal deficits) Results Result Diagram: 06/30/16 0500 06/30/16 0520 Results 24 hrs Laboratory Tests Test 06/29/16 15:04 06/29/16 18:15 06/30/16 00:22 06/30/16 05:00 Bedside Glucose 137 103 107 White Blood Count 13.2 H Red Blood Count 2.66 L Hemoglobin 8.1 L Hematocrit 24.4 L Mean Corpuscular Volume 91.7 Mean Corpuscular Hemoglobin 30.5 Mean Corpuscular Hemoglobin Concent 33.2 Red Cell Distribution Width 17.5 H Platelet Count 142 Mean Platelet Volume 12.6 H Neutrophils % 74.0 Band Neutrophils % 7.0 H Lymphocytes % 17.0 Monocytes % 1.0 Eosinophils % 1.0 Neutrophils # 9.8 H Lymphocytes # 2.2 Monocytes # 0.1 L Eosinophils # 0.1 Test 06/30/16 05:20 06/30/16 05:35 06/30/16 11:58 Sodium Level 133 L Potassium Level 3.5 Chloride Level 104 Carbon Dioxide Level 21 Anion Gap 12 Blood Urea Nitrogen 54 H Creatinine 1.54 H Glucose Level 116 Calcium Level 7.2 L Total Bilirubin 0.5 Direct Bilirubin 0.20 Indirect Bilirubin 0.3 Aspartate Amino Transf (AST/SGOT) 43 Alanine Aminotransferase (ALT/SGPT) 41 Alkaline Phosphatase 145 H Total Protein 5.0 L Albumin 2.0 L Globulin 3.00 Albumin/Globulin Ratio 0.66 Bedside Glucose 114 132 Medications Medications Current Medications Naloxone HCl (Narcan) 0.4 mg Q3M PRN IV DECREASED REPIRATORY RATE; Start at 10:30 Ondansetron HCl (Zofran Inj) 4 mg Q6H PRN IV NAUSEA AND/OR VOMITING; Start 01/12 at 10:30 Nitroglycerin (Nitroglycerin (Sl Tab) 0.4 Mg) 1 tab Q5M PRN SL CHEST PAIN; Start 06/06/16 at 10:30 Acetaminophen (Tylenol Liquid) 650 mg Q6H PRN PO PAIN LEVEL 1-3 OR FEVER Last administered on 06/29/16 12:50; Admin Dose 650 MG; Start 06/06/16 at 10:30 Morphine Sulfate (morphine) 2 mg Q4H PRN IV PAIN LEVEL 7-10 Last administered on 06/15/16 00:22; Admin Dose 2 MG; Start 06/06/16 at 10:30 Docusate Sodium (Colace) 100 mg Q12H PRN PO CONSTIPATION; Start 06/06/16 at 10: 30 Magnesium Hydroxide (Milk Of Mag) 30 ml DAILY PRN PO CONSTIPATION; Start at 10:30 Bisacodyl (Dulcolax) 5 mg DAILY PRN PO CONSTIPATION; Start 06/06/16 at 10:30 Pantoprazole (Protonix Iv) 40 mg DAILY@06 IV Last administered on 06/30/16 05: 37; Admin Dose 40 MG; Start 06/07/16 at 06:00 Enoxaparin Sodium (Lovenox) 40 mg DAILY SC Last administered on 06/30/16 08:48 ; Admin Dose 40 MG; Start 06/07/16 at 09:00 Collagenase (Santyl) 1 applic DAILY TOP Last administered on 06/30/16 08:39; Admin Dose 1 APPLIC; Start 06/07/16 at 09:00 Collagenase (Santyl) 1 applic PRN PRN TOP WOUND CARE; Start 06/06/16 at 16:00 IV Flush (NS 10 ml) 10 ml PRN PRN IV IV PROTOCOL; Start 06/06/16 at 18:30 Ascorbic Acid (Vitamin C) 500 mg DAILY GTB Last administered on 06/30/16 08:38 ; Admin Dose 500 MG; Start 06/07/16 at 09:00 Aspirin (Aspirin) 325 mg DAILY GTB Last administered on 06/30/16 08:37; Admin Dose 325 MG; Start 06/07/16 at 09:00 Multivitamins (Thera-Plus) 5 ml DAILY GTB Last administered on 06/30/16 08:37; Admin Dose 5 ML; Start 06/07/16 at 09:00 Tamsulosin HCl (Flomax) 0.4 mg HS PO Last administered on 06/29/16 21:11; Admin Dose 0.4 MG; Start 06/07/16 at 21:00 Mupirocin (Bactroban) 1 applic BID TOP Last administered on 06/30/16 08:39; Admin Dose 1 APPLIC; Start 06/07/16 at 21:00 Metoclopramide HCl (Reglan) 10 mg Q6H PRN IV NAUSEA AND/OR VOMITING Last administered on 06/08/16 18:00; Admin Dose 10 MG; Start 06/08/16 at 09:30 Lorazepam (Ativan) 1 mg Q6H PRN IV AGITATION/ANXIETY Last administered on 12:34; Admin Dose 1 MG; Start 06/09/16 at 13:30 Atenolol (Tenormin) 12.5 mg DAILY PO Last administered on 06/30/16 08:38; Admin Dose 12.5 MG; Start 06/25/16 at 09:00 Diagnostic Test (Pha) (Accu-Chek) 1 ea Q6 XX Last administered on 06/29/16 18: 14; Admin Dose 1 EA; Start 06/25/16 at 18:00 Midodrine (Proamatine) 5 mg TID@,,17 GTB Last administered on 06/30/16 12: 08; Admin Dose 5 MG; Start 06/25/16 at 17:00 Citric Acid/ Sodium Citrate 30 ml 30 ml BID PO Last administered on 06/30/16 08 :38; Admin Dose 30 ML; Start 06/26/16 at 21:00 Sodium Chloride 1,000 ml @ 125 mls/hr Q8H IV Last administered on 06/30/16 13: 33; Admin Dose 125 MLS/HR; Start 06/29/16 at 15:30 Piperacillin Sod/ Tazobactam Sod 50 ml @ 100 mls/hr Q8 IVPB Last administered on 06/30/16 13:32; Admin Dose 100 MLS/HR; Start 06/29/16 at 16:15 Vancomycin HCl (Vancocin) 250 ml @ 125 mls/hr Q36H IVPB ; Start 07/01/16 at 07: 00 Potassium Chloride (Potassium Chloride Pwd/Soln) 40 meq DAILY GTB Last administered on 06/30/16 12:07; Admin Dose 40 MEQ; Start 06/30/16 at 10:30 JAYA GORE 5, 2017 14:42
[2016-06-30] MEDS ORDERED: DIGOXIN 500 MCG INJ IV ONE (15:00)
--- NOTE | 2016-06-30 15:49 | PN ---
Date/Time of Note Date/Time of Note DATE: 06/30/16 TIME: 15:48 Assessment/Plan Lines/Catheters IV Catheter Type (from [facility]): PICC Line Alfonso in Place (from [facility]): Yes Assessment/Plan Chief Complaint/Hosp Course 1. Contained perforated viscous s/p IR drain 06/11. Cx noted. Leukocytosis resolved. Tube feeds started. Bowel function. Drain dcd. s/p Abx. Persistent leukocytosis. -? paredes cx and scan 2. Pneumonia -pulmonary toilette -abx 3. Sepsis, significant leukocytosis. Improving -abx -as above 4. Sacral decubitus ulcer -off load -nutrition optimization -vit c -local care 5. Chronic AFib -rate control -optimize electrolytes -tx infections 6. Anemia, dropped again -? source -? tx 7. Hypoalbuminemia -eventual nutritional optimization 8. CHF -judicious fluid management -cardiac optimization Thank you, Problems: Subjective 24 Hr Interval Summary Abnormal HR and rhythm. Leukocytosis. No f/c. No cough. No sz. No rashes. No bloating. No vomiting. No bleeding. TFs. Bowel function. Exam/Review of Systems Vital Signs Vitals Vital Signs Date Time Temp Pulse Resp B/P Pulse Ox O2 Delivery O2 Flow Rate FiO2 06/30/16 12:51 132 06/30/16 12:34 98.0 18 115/64 100 06/30/16 11:28 30 06/28/16 16:59 Mechanical Ventilator Intake and Output 06/29/16 06/29/16 06/30/16 15:00 23:00 07:00 Intake Total 2450 ml 1530 ml Output Total 800 ml 650 ml Balance 1650 ml 880 ml Exam Free Text/Dictation Constitutional: No alert, No distress, No oriented Psych: confusion, No anxiety Head: atraumatic, normocephalic Eyes: PERRL, nl conjunctiva, No icteric ENMT: mucosa pink and moist, nl external ears & nose, nl lips & teeth Neck: jvd (min), non-tender Respiratory: No congested cough, No labored breathing Cardiovascular: No edema, No regular rate and rhythm Gastrointestinal: soft, PEG No distended, No firm, No rebound or guarding Musculoskeletal: No joint tenderness, No nl gait and stance Extremities: No calf tenderness, No cyanosis Neurological: No nl mental status, No nl speech, No nl strength Skin: nl turgor, rash or lesions (Sacral and LE decubitus ulcerations), No diaphoresis Lymph: nl lymph nodes Results Result Diagram: 06/30/16 0500 06/30/16 0520 DAREK AHMADI MD June 30, 2016 15:49
--- NOTE | 2016-06-30 16:56 | PN ---
DATE: 06/29/2016 RAPID RESPONSE NOTE The date of the rapid response was 06/29/2016, the time was about 1700 hours. Rapid response was ca lled because of a systolic in the 60s and 70s with rhythm atrial fibrillation with heart rate in the 120s. 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 The patient was just recently put off antibiotic therapy, but had developed a low grade fever, firs t a couple hours prior to the CABIN WORKER been called. Stat EKG at the bedside was consistent with atrial f ibrillation with rapid ventricular rate and the systolic blood pressure, as mentioned earlier, was i n the 60s. I immediately ordered for IV fluid hydration and the head of the patient's bed was just slightly lowered, which puts him at about 20 degrees angle from regular of that before at about 45 d egrees. About [facility] into the IV fluid bolus, his blood pressure picked up to the low 100s. Based on his history, I ordered for cardiac enzymes. I also ordered for IV antibiotics, vancomycin and Zosyn, to be resumed, and I ordered for repeat blood as well as urine and tracheal cultures to b e obtained. The patient was just seen to be slightly agitated and I decided to give him 1 dose of l orazepam IV to calm him down. I also spoke with his primary care doctor, Dr. Ramirez, over the teleph one and he endorsed the patient's poor prognosis; however, agreed with my decision to leave the simona ent on telemetry floor if his blood pressure improved or transfer him to intensive care unit if his blood pressure did not respond to fluid hydration. I signed out our interventions to him, including the EKG findings and report, and he will be taking over the care and management. Critical care time spent was about 35 minutes. Dictated By: SAMARA CRABTREE MD, BA/TRACY Conf#: [id number] DID#: [id number]
[2016-06-30] MEDS ORDERED: ATENOLOL 25 MG TAB PO ONE (17:30)
[2016-06-30] MEDS: TAMSULOSIN (SR) 0.4 MG CAP PO SCH (21:07)
[2016-07-01] VITALS (25 sets, daily range): BP systolic 108–139; BP diastolic 49–65; PULSE 86–140; RESP 15–38
[2016-07-01] MEDS: ATENOLOL 25 MG TAB PO SCH ×3 (00:04→21:00)
[2016-07-01] MEDS: SOD CHLORIDE 0.9% 1,000 ML IV SCH ×3 (00:06→13:37)
[2016-07-01] MEDS: ACCU-CHEK XX SCH ×4 (00:07→17:48)
[2016-07-01] MEDS: IPRATROPIUM (HFA) 12.9 GM INHALER INH SCH ×6 (01:00→21:06)
[2016-07-01] MEDS: ALBUTEROL 18 GM INHALER INH SCH ×6 (01:00→21:07)
[2016-07-01] MEDS: PANTOPRAZOLE 40 MG INJ IV SCH (06:02)
[2016-07-01] MEDS: PIPER-TAZO 2.25 GM (PMX) 50 ML IVPB SCH ×3 (06:02→22:17)
[2016-07-01 06:53] LABS: ADD SCAN DIFF NO
[2016-07-01 07:00] LABS: ABNORMAL IP MESSAGE 1; HEMATOCRIT 21.3 % (42.0-52.0); MEAN CORPUSCULAR HEMOGLOBIN 29.6 pg (29.0-33.0); MEAN CORPUSCULAR HGB CONC 32.4 g/dl (32.0-37.0); MEAN CORPUSCULAR VOLUME 91.4 fl (82.0-101.0); MEAN PLATELET VOLUME 12.3 fl (7.4-10.4); PLATELET COUNT 188 10^3/UL (140-415); RED BLOOD COUNT 2.33 10^6/ul (4.70-6.10); RED CELL DISTRIBUTION WIDTH 17.4 % (11.5-14.5); WHITE BLOOD COUNT 12.7 10^3/ul (4.8-10.8)
[2016-07-01] MEDS ORDERED: VANCOMYCIN 1 GM in NS 250 ML IVPB SCH (07:00)
[2016-07-01 07:21] LABS: HEMOGLOBIN 6.9 g/dl (14.0-18.0)
[2016-07-01 07:31] LABS: CALCIUM 6.7 mg/dl (8.4-10.2); CREATININE 1.42 mg/dl (0.61-1.24); POTASSIUM 3.4 mmol/L (3.5-5.1)
[2016-07-01] MEDS: ENOXAPARIN 40 MG/0.4 ML SYG SC SCH (08:10)
[2016-07-01] MEDS: CITRIC ACID/SODIUM CITRATE 15 ML CUP PO SCH ×2 (09:00→22:18)
[2016-07-01] MEDS: MUPIROCIN 2% 22 GM OINT TOP SCH ×2 (09:00→22:19)
[2016-07-01] MEDS: COLLAGENASE 30 GM TUBE TOP SCH (09:00)
[2016-07-01] MEDS: ASPIRIN 325 MG TAB GTB SCH (09:00)
[2016-07-01 10:04] LABS: EOSINOPHILS # 0.1 10^3/ul (0.0-0.5); LYMPHOCYTES # 2.4 10^3/ul (0.8-2.9); MONOCYTE # 0.8 10^3/ul (0.3-0.9); MYELOCYTES # 0.3; NEUTROPHIL # 8.4 10^3/ul (1.6-7.5)
[2016-07-01 10:06] LABS: PLATELET ESTIMATE PLT APPEAR ADEQUATE
[2016-07-01] MEDS: POTASSIUM CHLORIDE 20 MEQ POWDER FOR ORAL SOLN GTB SCH (10:10)
[2016-07-01] MEDS: ASCORBIC ACID 500 MG TAB GTB SCH (10:11)
[2016-07-01] MEDS: MULTIVITAMINS 5 ML CUP GTB SCH (10:13)
[2016-07-01] MEDS: MIDODRINE 5 MG TAB GTB SCH ×3 (10:27→17:48)
--- NOTE | 2016-07-01 11:06 | CONS ---
Date/Time of Note Date/Time of Note DATE: 07/01/16 TIME: 11:04 Consult Date/Type/Reason Admit Date/Time Jun 06, 2016 at 08:08 Initial Consult Date 06/07/16 Type of Consultation: Cardiology Ordering Provider: HOLLI LINDER MD Subjective No significant changes from pulmonary standpoint continues mechanical ventilation Objective Vital Signs Date Time Temp Pulse Resp B/P Pulse Ox O2 Delivery O2 Flow Rate FiO2 07/01/16 09:00 92 26 100 30 07/01/16 07:55 98.3 125/54 06/28/16 16:59 Mechanical Ventilator Intake and Output 06/30/16 06/30/16 07/01/16 15:00 23:00 07:00 Intake Total 1000 ml 1655 ml Output Total 800 ml Balance 1000 ml 855 ml Exam PHYSICAL EXAMINATION GENERAL: Elderly gentleman, on mechanical ventilation, VITAL SIGNS: see below. HEENT: Pupils equal, round, and reactive to light. Tracheostomy site clean and intact. CARDIAC: S1, S2, tachycardia. CHEST: Diminished air entry bilaterally. ABDOMEN: Mildly distended. Diminished bowel sounds no guarding or rebound EXTREMITIES: No cyanosis, clubbing edema +2 NEUROLOGIC: Generalized weakness Results/Medications Result Diagram: 07/01/16 0600 07/01/16 0600 Results 24 hrs Laboratory Tests Test 06/30/16 11:58 06/30/16 17:46 07/01/16 00:32 07/01/16 05:52 Bedside Glucose 132 129 142 134 Test 07/01/16 06:00 07/01/16 07:50 White Blood Count 12.7 H Red Blood Count 2.33 L Hemoglobin 6.9 *L Hematocrit 21.3 L Mean Corpuscular Volume 91.4 Mean Corpuscular Hemoglobin 29.6 Mean Corpuscular Hemoglobin Concent 32.4 Red Cell Distribution Width 17.4 H Platelet Count 188 # Mean Platelet Volume 12.3 H Neutrophils % 66.0 Band Neutrophils % 5.0 Lymphocytes % 19.0 Reactive Lymphocytes % 1.0 Monocytes % 6.0 Eosinophils % 1.0 Myelocytes % 2.0 H Neutrophils # 8.4 H Lymphocytes # 2.4 Monocytes # 0.8 Eosinophils # 0.1 Myelocytes # 0.3 Platelet Estimate PLT APPEAR ADEQUATE Large Platelets FEW Sodium Level 137 Potassium Level 3.4 L Chloride Level 109 Carbon Dioxide Level 22 Anion Gap 9 Blood Urea Nitrogen 51 H Creatinine 1.42 H Glucose Level 105 Calcium Level 6.7 L Bedside Glucose 127 Medications Current Medications Naloxone HCl (Narcan) 0.4 mg Q3M PRN IV DECREASED REPIRATORY RATE; Start at 10:30 Ondansetron HCl (Zofran Inj) 4 mg Q6H PRN IV NAUSEA AND/OR VOMITING; Start 01/12 at 10:30 Nitroglycerin (Nitroglycerin (Sl Tab) 0.4 Mg) 1 tab Q5M PRN SL CHEST PAIN; Start 06/06/16 at 10:30 Acetaminophen (Tylenol Liquid) 650 mg Q6H PRN PO PAIN LEVEL 1-3 OR FEVER Last administered on 06/29/16 12:50; Admin Dose 650 MG; Start 06/06/16 at 10:30 Morphine Sulfate (morphine) 2 mg Q4H PRN IV PAIN LEVEL 7-10 Last administered on 06/15/16 00:22; Admin Dose 2 MG; Start 06/06/16 at 10:30 Docusate Sodium (Colace) 100 mg Q12H PRN PO CONSTIPATION; Start 06/06/16 at 10: 30 Magnesium Hydroxide (Milk Of Mag) 30 ml DAILY PRN PO CONSTIPATION; Start at 10:30 Bisacodyl (Dulcolax) 5 mg DAILY PRN PO CONSTIPATION; Start 06/06/16 at 10:30 Pantoprazole (Protonix Iv) 40 mg DAILY@06 IV Last administered on 07/01/16 06: 02; Admin Dose 40 MG; Start 06/07/16 at 06:00 Enoxaparin Sodium (Lovenox) 40 mg DAILY SC Last administered on 06/30/16 08:48 ; Admin Dose 40 MG; Start 06/07/16 at 09:00 Collagenase (Santyl) 1 applic DAILY TOP Last administered on 07/01/16 09:00; Admin Dose 1 APPLIC; Start 06/07/16 at 09:00 Collagenase (Santyl) 1 applic PRN PRN TOP WOUND CARE; Start 06/06/16 at 16:00 IV Flush (NS 10 ml) 10 ml PRN PRN IV IV PROTOCOL; Start 06/06/16 at 18:30 Ascorbic Acid (Vitamin C) 500 mg DAILY GTB Last administered on 07/01/16 10:11 ; Admin Dose 500 MG; Start 06/07/16 at 09:00 Aspirin (Aspirin) 325 mg DAILY GTB Last administered on 06/30/16 08:37; Admin Dose 325 MG; Start 06/07/16 at 09:00 Multivitamins (Thera-Plus) 5 ml DAILY GTB Last administered on 07/01/16 10:13; Admin Dose 5 ML; Start 06/07/16 at 09:00 Tamsulosin HCl (Flomax) 0.4 mg HS PO Last administered on 06/30/16 21:07; Admin Dose 0.4 MG; Start 06/07/16 at 21:00 Mupirocin (Bactroban) 1 applic BID TOP Last administered on 07/01/16 09:00; Admin Dose 1 APPLIC; Start 06/07/16 at 21:00 Metoclopramide HCl (Reglan) 10 mg Q6H PRN IV NAUSEA AND/OR VOMITING Last administered on 06/08/16 18:00; Admin Dose 10 MG; Start 06/08/16 at 09:30 Lorazepam (Ativan) 1 mg Q6H PRN IV AGITATION/ANXIETY Last administered on 12:34; Admin Dose 1 MG; Start 06/09/16 at 13:30 Diagnostic Test (Pha) (Accu-Chek) 1 ea Q6 XX Last administered on 07/01/16 06: 01; Admin Dose 1 EA; Start 06/25/16 at 18:00 Midodrine (Proamatine) 5 mg TID@,,17 GTB Last administered on 07/01/16 10: 27; Admin Dose 5 MG; Start 06/25/16 at 17:00 Citric Acid/ Sodium Citrate 30 ml 30 ml BID PO Last administered on 07/01/16 09 :00; Admin Dose 30 ML; Start 06/26/16 at 21:00 Sodium Chloride 1,000 ml @ 125 mls/hr Q8H IV Last administered on 07/01/16 10: 14; Admin Dose 125 MLS/HR; Start 06/29/16 at 15:30 Piperacillin Sod/ Tazobactam Sod 50 ml @ 100 mls/hr Q8 IVPB Last administered on 07/01/16 06:02; Admin Dose 100 MLS/HR; Start 06/29/16 at 16:15 Vancomycin HCl (Vancocin) 250 ml @ 125 mls/hr Q36H IVPB Last administered on 06:46; Admin Dose 125 MLS/HR; Start 07/01/16 at 07:00 Potassium Chloride (Potassium Chloride Pwd/Soln) 40 meq DAILY GTB Last administered on 07/01/16 10:10; Admin Dose 40 MEQ; Start 06/30/16 at 10:30 Atenolol (Tenormin) 12.5 mg BID PO Last administered on 07/01/16 10:13; Admin Dose 12.5 MG; Start 06/30/16 at 23:00 Assessment/Plan Chief Complaint/Hosp Course Assessment 1. Vent dependent respiratory failure with evidence of healthcare associated pneumonia 2. Status post bowel perforation with drainage, resolving leukocytosis 3. Persistent leukocytosis sepsis likely secondary to bowel abscesses VIET drains in place decreased output 4. Chronic atrial fibrillation 5. Decubitus ulcers 6. Dysphagia with G-tube 7. Anemia worsening no evidence of GI bleed Plan 1. Continue mechanical ventilation tracheostomy change 2. Continue broad-spectrum antibiotics per infectious diseases 3. Surgical recommendations regarding abdominal drains 4. Palliative care consult ? 5. DVT and GI prophylaxis 6. Consider transfusion 1 unit packed red blood cells given hypotensive episode yesterday Disposition Continue current care Consider palliative care consult consider hospice Problems: KAVON TROY [facility], [facility] July 01, 2016 11:06
--- NOTE | 2016-07-01 11:29 | CONS ---
Date/Time of Note Date/Time of Note DATE: 07/01/16 TIME: 11:28 Assessment/Plan Assessment/Plan Additional Assessment/Plan 1.CHF-systolic acute on chonic-reasonable volume status at this time - con't to keep euvolemic. 2.Resp failure s/p trach on vent- con't resp Rx 3.Cardiomyopathy-LVEF 25-30% - stable 4.HTN-with episodes of borderline Hotn and now on midodrine 5.PPM-s/p interrogation with proper function-episodes of SVT and short episode VT 06/09/16/good battery life - paced now 6.Leukocytosis 7.Tachycardia-PAF/AFL rate controlled 8.Perforated viscous s/p IR drain placement 9. Renal insuff-? overdiuresis Consultation Date/Type/Reason Admit Date/Time Jun 06, 2016 at 08:08 Initial Consult Date 06/07/16 Type of Consultation: Cardiology Referring Provider: HOLLI LINDER MD 24 HR Interval Summary Free Text/Dictation NO acute change - paced on tele - con't resp Rx ROS: No fever, no chills, no nausea, no vomiting, no diarrhea/constipation No recent weight changes No chest pain, no PND, no orthopnea No dizziness, blurred vision No thirst, no heat or cold intolerance (per nurse) Exam/Review of Systems Vital Signs Vitals Vital Signs Date Time Temp Pulse Resp B/P Pulse Ox O2 Delivery O2 Flow Rate FiO2 07/01/16 09:00 92 26 100 30 07/01/16 07:55 98.3 125/54 06/28/16 16:59 Mechanical Ventilator Intake and Output 06/30/16 06/30/16 07/01/16 15:00 23:00 07:00 Intake Total 1000 ml 1655 ml Output Total 800 ml Balance 1000 ml 855 ml Exam General: WN/WD/NAD, AOx 0 HEENT: Unicetric/atraumatic/EOMI (does not follow commands) NECK: tarch, no thyromegaly Lymph: no lymphadenopathy HEART: regular with no S3, II/ systolic murmur at apex LUNGS: Coarse sounds ABD: soft, NT, ND, +BS : Intact Neuro: non focal SKIN: chronic changes EXT: trace edema Results Result Diagram: 07/01/16 0600 07/01/16 0600 Results 24 hrs Laboratory Tests Test 06/30/16 11:58 06/30/16 17:46 07/01/16 00:32 07/01/16 05:52 Bedside Glucose 132 129 142 134 Test 07/01/16 06:00 07/01/16 07:50 White Blood Count 12.7 H Red Blood Count 2.33 L Hemoglobin 6.9 *L Hematocrit 21.3 L Mean Corpuscular Volume 91.4 Mean Corpuscular Hemoglobin 29.6 Mean Corpuscular Hemoglobin Concent 32.4 Red Cell Distribution Width 17.4 H Platelet Count 188 # Mean Platelet Volume 12.3 H Neutrophils % 66.0 Band Neutrophils % 5.0 Lymphocytes % 19.0 Reactive Lymphocytes % 1.0 Monocytes % 6.0 Eosinophils % 1.0 Myelocytes % 2.0 H Neutrophils # 8.4 H Lymphocytes # 2.4 Monocytes # 0.8 Eosinophils # 0.1 Myelocytes # 0.3 Platelet Estimate PLT APPEAR ADEQUATE Large Platelets FEW Sodium Level 137 Potassium Level 3.4 L Chloride Level 109 Carbon Dioxide Level 22 Anion Gap 9 Blood Urea Nitrogen 51 H Creatinine 1.42 H Glucose Level 105 Calcium Level 6.7 L Bedside Glucose 127 Medications Medications Current Medications Naloxone HCl (Narcan) 0.4 mg Q3M PRN IV DECREASED REPIRATORY RATE; Start at 10:30 Ondansetron HCl (Zofran Inj) 4 mg Q6H PRN IV NAUSEA AND/OR VOMITING; Start 01/12 at 10:30 Nitroglycerin (Nitroglycerin (Sl Tab) 0.4 Mg) 1 tab Q5M PRN SL CHEST PAIN; Start 06/06/16 at 10:30 Acetaminophen (Tylenol Liquid) 650 mg Q6H PRN PO PAIN LEVEL 1-3 OR FEVER Last administered on 06/29/16 12:50; Admin Dose 650 MG; Start 06/06/16 at 10:30 Morphine Sulfate (morphine) 2 mg Q4H PRN IV PAIN LEVEL 7-10 Last administered on 06/15/16 00:22; Admin Dose 2 MG; Start 06/06/16 at 10:30 Docusate Sodium (Colace) 100 mg Q12H PRN PO CONSTIPATION; Start 06/06/16 at 10: 30 Magnesium Hydroxide (Milk Of Mag) 30 ml DAILY PRN PO CONSTIPATION; Start at 10:30 Bisacodyl (Dulcolax) 5 mg DAILY PRN PO CONSTIPATION; Start 06/06/16 at 10:30 Pantoprazole (Protonix Iv) 40 mg DAILY@06 IV Last administered on 07/01/16 06: 02; Admin Dose 40 MG; Start 06/07/16 at 06:00 Enoxaparin Sodium (Lovenox) 40 mg DAILY SC Last administered on 06/30/16 08:48 ; Admin Dose 40 MG; Start 06/07/16 at 09:00 Collagenase (Santyl) 1 applic DAILY TOP Last administered on 07/01/16 09:00; Admin Dose 1 APPLIC; Start 06/07/16 at 09:00 Collagenase (Santyl) 1 applic PRN PRN TOP WOUND CARE; Start 06/06/16 at 16:00 IV Flush (NS 10 ml) 10 ml PRN PRN IV IV PROTOCOL; Start 06/06/16 at 18:30 Ascorbic Acid (Vitamin C) 500 mg DAILY GTB Last administered on 07/01/16 10:11 ; Admin Dose 500 MG; Start 06/07/16 at 09:00 Aspirin (Aspirin) 325 mg DAILY GTB Last administered on 06/30/16 08:37; Admin Dose 325 MG; Start 06/07/16 at 09:00 Multivitamins (Thera-Plus) 5 ml DAILY GTB Last administered on 07/01/16 10:13; Admin Dose 5 ML; Start 06/07/16 at 09:00 Tamsulosin HCl (Flomax) 0.4 mg HS PO Last administered on 06/30/16 21:07; Admin Dose 0.4 MG; Start 06/07/16 at 21:00 Mupirocin (Bactroban) 1 applic BID TOP Last administered on 07/01/16 09:00; Admin Dose 1 APPLIC; Start 06/07/16 at 21:00 Metoclopramide HCl (Reglan) 10 mg Q6H PRN IV NAUSEA AND/OR VOMITING Last administered on 06/08/16 18:00; Admin Dose 10 MG; Start 06/08/16 at 09:30 Lorazepam (Ativan) 1 mg Q6H PRN IV AGITATION/ANXIETY Last administered on 12:34; Admin Dose 1 MG; Start 06/09/16 at 13:30 Diagnostic Test (Pha) (Accu-Chek) 1 ea Q6 XX Last administered on 07/01/16 06: 01; Admin Dose 1 EA; Start 06/25/16 at 18:00 Midodrine (Proamatine) 5 mg TID@09,13,17 GTB Last administered on 07/01/16 10: 27; Admin Dose 5 MG; Start 06/25/16 at 17:00 Citric Acid/ Sodium Citrate 30 ml 30 ml BID PO Last administered on 07/01/16 09 :00; Admin Dose 30 ML; Start 06/26/16 at 21:00 Sodium Chloride 1,000 ml @ 125 mls/hr Q8H IV Last administered on 07/01/16 10: 14; Admin Dose 125 MLS/HR; Start 06/29/16 at 15:30 Piperacillin Sod/ Tazobactam Sod 50 ml @ 100 mls/hr Q8 IVPB Last administered on 07/01/16 06:02; Admin Dose 100 MLS/HR; Start 06/29/16 at 16:15 Vancomycin HCl (Vancocin) 250 ml @ 125 mls/hr Q36H IVPB Last administered on 06:46; Admin Dose 125 MLS/HR; Start 07/01/16 at 07:00 Potassium Chloride (Potassium Chloride Pwd/Soln) 40 meq DAILY GTB Last administered on 07/01/16 10:10; Admin Dose 40 MEQ; Start 06/30/16 at 10:30 Atenolol (Tenormin) 12.5 mg BID PO Last administered on 07/01/16 10:13; Admin Dose 12.5 MG; Start 06/30/16 at 23:00 ZEUS CHAPPELL MD July 01, 2016 11:29
--- NOTE | 2016-07-01 14:58 | PN ---
Date/Time of Note Date/Time of Note DATE: 07/01/16 TIME: 14:57 Assessment/Plan VTE Prophylaxis VTE Prophylaxis Intervention: SCD's Lines/Catheters IV Catheter Type (from Nrs): PICC Line Central line still needed: Yes Urinary Cath still in place: Yes Reason Cath still needed: urinary retention Assessment/Plan Chief Complaint/Hosp Course 1. Septic resolved 2. Pneumonia. aspiration, resolved 3. tracheostomy 4, GT 5. decubitus Problems: Assessment/Plan 1. Blood transfusion 2. Potassium was supplemented 3. Placement issue Subjective 24 Hr Interval Summary Subjective hx not possible: pt non-verbal Exam/Review of Systems Vital Signs Vitals Vital Signs Date Time Temp Pulse Resp B/P Pulse Ox O2 Delivery O2 Flow Rate FiO2 07/01/16 13:00 93 29 100 30 07/01/16 12:04 97.8 125/58 06/28/16 16:59 Mechanical Ventilator Intake and Output 06/30/16 06/30/16 07/01/16 15:00 23:00 07:00 Intake Total 1000 ml 1655 ml Output Total 800 ml Balance 1000 ml 855 ml Exam Constitutional: alert Head: normocephalic Eyes: nl conjunctiva Neck: other (tracheostomy), supple Respiratory: clear to auscultation, diminished breath sounds Cardiovascular: regular rate and rhythm Results Result Diagram: 07/01/16 0600 07/01/16 0600 Results 24 hrs Laboratory Tests Test 06/30/16 17:46 07/01/16 00:32 07/01/16 05:52 07/01/16 06:00 Bedside Glucose 129 142 134 White Blood Count 12.7 H Red Blood Count 2.33 L Hemoglobin 6.9 *L Hematocrit 21.3 L Mean Corpuscular Volume 91.4 Mean Corpuscular Hemoglobin 29.6 Mean Corpuscular Hemoglobin Concent 32.4 Red Cell Distribution Width 17.4 H Platelet Count 188 # Mean Platelet Volume 12.3 H Neutrophils % 66.0 Band Neutrophils % 5.0 Lymphocytes % 19.0 Reactive Lymphocytes % 1.0 Monocytes % 6.0 Eosinophils % 1.0 Myelocytes % 2.0 H Neutrophils # 8.4 H Lymphocytes # 2.4 Monocytes # 0.8 Eosinophils # 0.1 Myelocytes # 0.3 Platelet Estimate PLT APPEAR ADEQUATE Large Platelets FEW Sodium Level 137 Potassium Level 3.4 L Chloride Level 109 Carbon Dioxide Level 22 Anion Gap 9 Blood Urea Nitrogen 51 H Creatinine 1.42 H Glucose Level 105 Calcium Level 6.7 L Test 07/01/16 07:50 07/01/16 12:17 Bedside Glucose 127 102 Medications Medications Current Medications Naloxone HCl (Narcan) 0.4 mg Q3M PRN IV DECREASED REPIRATORY RATE; Start at 10:30 Ondansetron HCl (Zofran Inj) 4 mg Q6H PRN IV NAUSEA AND/OR VOMITING; Start 01/12 at 10:30 Nitroglycerin (Nitroglycerin (Sl Tab) 0.4 Mg) 1 tab Q5M PRN SL CHEST PAIN; Start 06/06/16 at 10:30 Acetaminophen (Tylenol Liquid) 650 mg Q6H PRN PO PAIN LEVEL 1-3 OR FEVER Last administered on 06/29/16 12:50; Admin Dose 650 MG; Start 06/06/16 at 10:30 Morphine Sulfate (morphine) 2 mg Q4H PRN IV PAIN LEVEL 7-10 Last administered on 06/15/16 00:22; Admin Dose 2 MG; Start 06/06/16 at 10:30 Docusate Sodium (Colace) 100 mg Q12H PRN PO CONSTIPATION; Start 06/06/16 at 10: 30 Magnesium Hydroxide (Milk Of Mag) 30 ml DAILY PRN PO CONSTIPATION; Start at 10:30 Bisacodyl (Dulcolax) 5 mg DAILY PRN PO CONSTIPATION; Start 06/06/16 at 10:30 Pantoprazole (Protonix Iv) 40 mg DAILY@06 IV Last administered on 07/01/16 06: 02; Admin Dose 40 MG; Start 06/07/16 at 06:00 Enoxaparin Sodium (Lovenox) 40 mg DAILY SC Last administered on 06/30/16 08:48 ; Admin Dose 40 MG; Start 06/07/16 at 09:00 Collagenase (Santyl) 1 applic DAILY TOP Last administered on 07/01/16 09:00; Admin Dose 1 APPLIC; Start 06/07/16 at 09:00 Collagenase (Santyl) 1 applic PRN PRN TOP WOUND CARE; Start 06/06/16 at 16:00 IV Flush (NS 10 ml) 10 ml PRN PRN IV IV PROTOCOL; Start 06/06/16 at 18:30 Ascorbic Acid (Vitamin C) 500 mg DAILY GTB Last administered on 07/01/16 10:11 ; Admin Dose 500 MG; Start 06/07/16 at 09:00 Aspirin (Aspirin) 325 mg DAILY GTB Last administered on 06/30/16 08:37; Admin Dose 325 MG; Start 06/07/16 at 09:00 Multivitamins (Thera-Plus) 5 ml DAILY GTB Last administered on 07/01/16 10:13; Admin Dose 5 ML; Start 06/07/16 at 09:00 Tamsulosin HCl (Flomax) 0.4 mg HS PO Last administered on 06/30/16 21:07; Admin Dose 0.4 MG; Start 06/07/16 at 21:00 Mupirocin (Bactroban) 1 applic BID TOP Last administered on 07/01/16 09:00; Admin Dose 1 APPLIC; Start 06/07/16 at 21:00 Metoclopramide HCl (Reglan) 10 mg Q6H PRN IV NAUSEA AND/OR VOMITING Last administered on 06/08/16 18:00; Admin Dose 10 MG; Start 06/08/16 at 09:30 Lorazepam (Ativan) 1 mg Q6H PRN IV AGITATION/ANXIETY Last administered on 12:34; Admin Dose 1 MG; Start 06/09/16 at 13:30 Diagnostic Test (Pha) (Accu-Chek) 1 ea Q6 XX Last administered on 07/01/16 12: 19; Admin Dose 1 EA; Start 06/25/16 at 18:00 Midodrine (Proamatine) 5 mg TID@ GTB Last administered on 07/01/16 13: 37; Admin Dose 5 MG; Start 06/25/16 at 17:00 Citric Acid/ Sodium Citrate 30 ml 30 ml BID PO Last administered on 07/01/16 09 :00; Admin Dose 30 ML; Start 06/26/16 at 21:00 Sodium Chloride 1,000 ml @ 125 mls/hr Q8H IV Last administered on 07/01/16 13: 37; Admin Dose 125 MLS/HR; Start 06/29/16 at 15:30 Piperacillin Sod/ Tazobactam Sod 50 ml @ 100 mls/hr Q8 IVPB Last administered on 07/01/16 13:37; Admin Dose 100 MLS/HR; Start 06/29/16 at 16:15 Vancomycin HCl (Vancocin) 250 ml @ 125 mls/hr Q36H IVPB Last administered on 06:46; Admin Dose 125 MLS/HR; Start 07/01/16 at 07:00 Potassium Chloride (Potassium Chloride Pwd/Soln) 40 meq DAILY GTB Last administered on 07/01/16 10:10; Admin Dose 40 MEQ; Start 06/30/16 at 10:30 Atenolol (Tenormin) 12.5 mg BID PO Last administered on 07/01/16 10:13; Admin Dose 12.5 MG; Start 06/30/16 at 23:00 WANG BELL July 01, 2016 14:58
--- NOTE | 2016-07-01 20:14 | CONS ---
Date/Time of Note Date/Time of Note DATE: 07/01/16 TIME: 20:12 Assessment/Plan Assessment/Plan Chief Complaint/Hosp Course SUBJECTIVE: No changes overnight, no fevers MICROBIOLOGY: Stool for C. diff came back negative. Urine culture on 2016 negative. INDWELLINGS: Trach, PEG, Alfonso, PICC line. PHYSICAL EXAMINATION: GENERAL: This is a well-developed, fragile, chronically ill-appearing, elderly man who is in no distress. HEENT: Head atraumatic, normocephalic. Sclerae anicteric. Buccal mucosa dry. NECK: Supple. Tracheostomy present. CHEST: Rise symmetrical. Breath sounds diminished to bases. HEART: S1, S2. ABDOMEN: Soft. Bowel tones hypoactive. EXTREMITIES: Without cyanosis. Bilateral trace edema. ASSESSMENT: 1. HCAP. 2. Status post contained perforated viscus, requiring drainage catheter placement that was discontinued. 3. Status urinary tract infection, and methicillin-resistant Staphylococcus aureus bacteremia on admission. 4. Coronary artery disease, chronic atrial fibrillation. 5. Encephalopathy. 6. Sacral decubitus. 7. Status post sepsis with shock PLAN: Abx restarted for low grade temps and tachycardia (Vanco/Zosyn), sputum cx + GNR, will f/u cxr in am, f/u pulmonary rec-s [facility] staff Problems: Consultation Date/Type/Reason Admit Date/Time Jun 06, 2016 at 08:08 Initial Consult Date 06/07/16 Type of Consultation: ID Referring Provider: HOLLI LINDER MD Exam/Review of Systems Vital Signs Vitals Vital Signs Date Time Temp Pulse Resp B/P Pulse Ox O2 Delivery O2 Flow Rate FiO2 07/01/16 19:57 97.9 102 20 139/59 97 07/01/16 19:29 30 06/28/16 16:59 Mechanical Ventilator Intake and Output 06/30/16 06/30/16 07/01/16 15:00 23:00 07:00 Intake Total 1000 ml 1655 ml Output Total 800 ml Balance 1000 ml 855 ml Results Result Diagram: 07/01/16 0600 07/01/16 0600 Results 24 hrs Laboratory Tests Test 07/01/16 00:32 07/01/16 05:52 07/01/16 06:00 07/01/16 07:50 Bedside Glucose 142 134 127 White Blood Count 12.7 H Red Blood Count 2.33 L Hemoglobin 6.9 *L Hematocrit 21.3 L Mean Corpuscular Volume 91.4 Mean Corpuscular Hemoglobin 29.6 Mean Corpuscular Hemoglobin Concent 32.4 Red Cell Distribution Width 17.4 H Platelet Count 188 # Mean Platelet Volume 12.3 H Neutrophils % 66.0 Band Neutrophils % 5.0 Lymphocytes % 19.0 Reactive Lymphocytes % 1.0 Monocytes % 6.0 Eosinophils % 1.0 Myelocytes % 2.0 H Neutrophils # 8.4 H Lymphocytes # 2.4 Monocytes # 0.8 Eosinophils # 0.1 Myelocytes # 0.3 Platelet Estimate PLT APPEAR ADEQUATE Large Platelets FEW Sodium Level 137 Potassium Level 3.4 L Chloride Level 109 Carbon Dioxide Level 22 Anion Gap 9 Blood Urea Nitrogen 51 H Creatinine 1.42 H Glucose Level 105 Calcium Level 6.7 L Test 07/01/16 12:17 07/01/16 17:46 Bedside Glucose 102 111 Medications Medications Current Medications Naloxone HCl (Narcan) 0.4 mg Q3M PRN IV DECREASED REPIRATORY RATE; Start at 10:30 Ondansetron HCl (Zofran Inj) 4 mg Q6H PRN IV NAUSEA AND/OR VOMITING; Start 01/12 at 10:30 Nitroglycerin (Nitroglycerin (Sl Tab) 0.4 Mg) 1 tab Q5M PRN SL CHEST PAIN; Start 06/06/16 at 10:30 Acetaminophen (Tylenol Liquid) 650 mg Q6H PRN PO PAIN LEVEL 1-3 OR FEVER Last administered on 06/29/16 12:50; Admin Dose 650 MG; Start 06/06/16 at 10:30 Morphine Sulfate (morphine) 2 mg Q4H PRN IV PAIN LEVEL 7-10 Last administered on 06/15/16 00:22; Admin Dose 2 MG; Start 06/06/16 at 10:30 Docusate Sodium (Colace) 100 mg Q12H PRN PO CONSTIPATION; Start 06/06/16 at 10: 30 Magnesium Hydroxide (Milk Of Mag) 30 ml DAILY PRN PO CONSTIPATION; Start at 10:30 Bisacodyl (Dulcolax) 5 mg DAILY PRN PO CONSTIPATION; Start 06/06/16 at 10:30 Pantoprazole (Protonix Iv) 40 mg DAILY@06 IV Last administered on 07/01/16 06: 02; Admin Dose 40 MG; Start 06/07/16 at 06:00 Enoxaparin Sodium (Lovenox) 40 mg DAILY SC Last administered on 06/30/16 08:48 ; Admin Dose 40 MG; Start 06/07/16 at 09:00 Collagenase (Santyl) 1 applic DAILY TOP Last administered on 07/01/16 09:00; Admin Dose 1 APPLIC; Start 06/07/16 at 09:00 Collagenase (Santyl) 1 applic PRN PRN TOP WOUND CARE; Start 06/06/16 at 16:00 IV Flush (NS 10 ml) 10 ml PRN PRN IV IV PROTOCOL; Start 06/06/16 at 18:30 Ascorbic Acid (Vitamin C) 500 mg DAILY GTB Last administered on 07/01/16 10:11 ; Admin Dose 500 MG; Start 06/07/16 at 09:00 Aspirin (Aspirin) 325 mg DAILY GTB Last administered on 06/30/16 08:37; Admin Dose 325 MG; Start 06/07/16 at 09:00 Multivitamins (Thera-Plus) 5 ml DAILY GTB Last administered on 07/01/16 10:13; Admin Dose 5 ML; Start 06/07/16 at 09:00 Tamsulosin HCl (Flomax) 0.4 mg HS PO Last administered on 06/30/16 21:07; Admin Dose 0.4 MG; Start 06/07/16 at 21:00 Mupirocin (Bactroban) 1 applic BID TOP Last administered on 07/01/16 09:00; Admin Dose 1 APPLIC; Start 06/07/16 at 21:00 Metoclopramide HCl (Reglan) 10 mg Q6H PRN IV NAUSEA AND/OR VOMITING Last administered on 06/08/16 18:00; Admin Dose 10 MG; Start 06/08/16 at 09:30 Lorazepam (Ativan) 1 mg Q6H PRN IV AGITATION/ANXIETY Last administered on 12:34; Admin Dose 1 MG; Start 06/09/16 at 13:30 Diagnostic Test (Pha) (Accu-Chek) 1 ea Q6 XX Last administered on 07/01/16 17: 48; Admin Dose 1 EA; Start 4/30/17 at 18:00 Midodrine (Proamatine) 5 mg TID@09,,17 GTB Last administered on 07/01/16 17: 48; Admin Dose 5 MG; Start 06/25/16 at 17:00 Citric Acid/ Sodium Citrate 30 ml 30 ml BID PO Last administered on 07/01/16 09 :00; Admin Dose 30 ML; Start 06/26/16 at 21:00 Sodium Chloride 1,000 ml @ 125 mls/hr Q8H IV Last administered on 07/01/16 13: 37; Admin Dose 125 MLS/HR; Start 06/29/16 at 15:30 Piperacillin Sod/ Tazobactam Sod 50 ml @ 100 mls/hr Q8 IVPB Last administered on 07/01/16 13:37; Admin Dose 100 MLS/HR; Start 06/29/16 at 16:15 Vancomycin HCl (Vancocin) 250 ml @ 125 mls/hr Q36H IVPB Last administered on 06:46; Admin Dose 125 MLS/HR; Start 07/01/16 at 07:00 Potassium Chloride (Potassium Chloride Pwd/Soln) 40 meq DAILY GTB Last administered on 07/01/16 10:10; Admin Dose 40 MEQ; Start 06/30/16 at 10:30 Atenolol (Tenormin) 12.5 mg BID PO Last administered on 07/01/16 10:13; Admin Dose 12.5 MG; Start 06/30/16 at 23:00 JOSE G CUNNINGHAM NP July 01, 2016 20:14
[2016-07-01] MEDS: TAMSULOSIN (SR) 0.4 MG CAP PO SCH (22:17)
[2016-07-02] VITALS (24 sets, daily range): BP systolic 111–124; BP diastolic 51–75; PULSE 80–110; RESP 15–41
[2016-07-02] MEDS: ALBUTEROL 18 GM INHALER INH SCH ×6 (01:30→19:35)
[2016-07-02] MEDS: IPRATROPIUM (HFA) 12.9 GM INHALER INH SCH ×6 (01:30→19:35)
[2016-07-02] MEDS: PIPER-TAZO 2.25 GM (PMX) 50 ML IVPB SCH ×2 (05:57→13:35)
[2016-07-02] MEDS: PANTOPRAZOLE 40 MG INJ IV SCH (05:57)
[2016-07-02] MEDS: SOD CHLORIDE 0.9% 1,000 ML IV SCH ×4 (05:58→22:12)
[2016-07-02] MEDS: ACCU-CHEK XX SCH ×4 (06:00→17:12)
[2016-07-02] MEDS: ENOXAPARIN 40 MG/0.4 ML SYG SC SCH ×2 (09:00→17:24)
[2016-07-02] MEDS: MUPIROCIN 2% 22 GM OINT TOP SCH ×2 (09:00→22:12)
[2016-07-02] MEDS: COLLAGENASE 30 GM TUBE TOP SCH (09:00)
[2016-07-02] MEDS: MIDODRINE 5 MG TAB GTB SCH ×3 (10:08→17:25)
[2016-07-02] MEDS: ASPIRIN 325 MG TAB GTB SCH (10:08)
[2016-07-02] MEDS: MULTIVITAMINS 5 ML CUP GTB SCH (10:09)
[2016-07-02] MEDS: POTASSIUM CHLORIDE 20 MEQ POWDER FOR ORAL SOLN GTB SCH (10:09)
[2016-07-02] MEDS: ATENOLOL 25 MG TAB PO SCH ×2 (10:09→22:12)
[2016-07-02] MEDS: CITRIC ACID/SODIUM CITRATE 15 ML CUP PO SCH ×2 (10:09→22:11)
[2016-07-02] MEDS: ASCORBIC ACID 500 MG TAB GTB SCH (10:09)
[2016-07-02 10:38] LABS: ADD SCAN DIFF NO
[2016-07-02 10:39] LABS: ABNORMAL IP MESSAGE 1; HEMATOCRIT 28.4 % (42.0-52.0); HEMOGLOBIN 9.5 g/dl (14.0-18.0); MEAN CORPUSCULAR HEMOGLOBIN 29.7 pg (29.0-33.0); MEAN CORPUSCULAR HGB CONC 33.5 g/dl (32.0-37.0); MEAN CORPUSCULAR VOLUME 88.8 fl (82.0-101.0); MEAN PLATELET VOLUME 11.7 fl (7.4-10.4); PLATELET COUNT 249 10^3/UL (140-415); RED CELL DISTRIBUTION WIDTH 17.2 % (11.5-14.5); WHITE BLOOD COUNT 16.1 10^3/ul (4.8-10.8)
[2016-07-02 13:14] LABS: EOSINOPHILS # 0.3 10^3/ul (0.0-0.5); LYMPHOCYTES # 2.1 10^3/ul (0.8-2.9); MONOCYTE # 0.3 10^3/ul (0.3-0.9); MYELOCYTES # 0.3; NEUTROPHIL # 12.1 10^3/ul (1.6-7.5)
--- NOTE | 2016-07-02 13:19 | CONS ---
Date/Time of Note Date/Time of Note DATE: 07/02/16 TIME: 13:17 Assessment/Plan Assessment/Plan Additional Assessment/Plan 1.CHF-systolic acute on chonic-reasonable volume status at this time - con't to keep euvolemic- STABLE 2.Resp failure s/p trach on vent- con't resp Rx 3.Cardiomyopathy-LVEF 25-30% - stable - PPM in place, not ICD 4.HTN-with episodes of borderline Hotn and now on midodrine 5.PPM-s/p interrogation with proper function-episodes of SVT and short episode VT 06/09/16/good battery life - paced now 6.Leukocytosis - on anti-bx 7.Tachycardia-PAF/AFL rate controlled 8.Perforated viscous s/p IR drain placement 9. Renal insuff-? overdiuresis Consultation Date/Type/Reason Admit Date/Time Jun 06, 2016 at 08:08 Initial Consult Date 06/07/16 Type of Consultation: ID Referring Provider: HOLLI LINDER MD 24 HR Interval Summary Free Text/Dictation NO acute change - intermittent tachycardia - on anti-Bx, con't resp rx ROS: No fever, no chills, no nausea, no vomiting, no diarrhea/constipation No recent weight changes No chest pain, no PND, no orthopnea +SOB No dizziness, blurred vision No thirst, no heat or cold intolerance Exam/Review of Systems Vital Signs Vitals Vital Signs Date Time Temp Pulse Resp B/P Pulse Ox O2 Delivery O2 Flow Rate FiO2 07/02/16 12:30 105 07/02/16 11:31 98.8 16 121/74 99 07/02/16 11:15 30 06/28/16 16:59 Mechanical Ventilator Intake and Output 07/01/16 07/01/16 07/02/16 15:00 23:00 07:00 Intake Total 980 ml 850 ml Output Total 440 ml 1500 ml 900 ml Balance 540 ml -1500 ml -50 ml Exam Geneal: WN/WD/NAD, AOx 0 HEENT: Unicetric/atraumatic/EOMI (does not follow commands) NECK: JVD elevated, trach Lymph: no lymphadenopathy HEART: regular with no S3, II/ systolic murmur at apex,pacer LUNGS: Coarse sounds ABD: soft, NT, ND, +BS : Intact Neuro: non focal SKIN: chronic changes EXT: trace edema Results Result Diagram: 07/02/16 1028 07/01/16 0600 Results 24 hrs Laboratory Tests Test 07/01/16 17:46 07/02/16 00:29 07/02/16 06:04 07/02/16 07:35 Bedside Glucose 111 117 120 120 Test 07/02/16 10:28 07/02/16 12:29 White Blood Count 16.1 #H Red Blood Count 3.20 #L Hemoglobin 9.5 #L Hematocrit 28.4 #L Mean Corpuscular Volume 88.8 Mean Corpuscular Hemoglobin 29.7 Mean Corpuscular Hemoglobin Concent 33.5 Red Cell Distribution Width 17.2 H Platelet Count 249 # Mean Platelet Volume 11.7 H Neutrophils % 75.0 Band Neutrophils % 3.0 Lymphocytes % 13.0 L Monocytes % 2.0 Eosinophils % 2.0 Metamyelocytes % 1.0 H Myelocytes % 2.0 H Promyelocytes % 2.0 H Neutrophils # 12.1 H Lymphocytes # 2.1 Monocytes # 0.3 Eosinophils # 0.3 Metamyelocytes # 0.2 Myelocytes # 0.3 Promyelocytes # 0.3 Differential Comment MANUAL DIFF Large Platelets OCCASIONAL Bedside Glucose 153 Medications Medications Current Medications Naloxone HCl (Narcan) 0.4 mg Q3M PRN IV DECREASED REPIRATORY RATE; Start at 10:30 Ondansetron HCl (Zofran Inj) 4 mg Q6H PRN IV NAUSEA AND/OR VOMITING; Start 01/12 at 10:30 Nitroglycerin (Nitroglycerin (Sl Tab) 0.4 Mg) 1 tab Q5M PRN SL CHEST PAIN; Start 06/06/16 at 10:30 Acetaminophen (Tylenol Liquid) 650 mg Q6H PRN PO PAIN LEVEL 1-3 OR FEVER Last administered on 06/29/16 12:50; Admin Dose 650 MG; Start 06/06/16 at 10:30 Morphine Sulfate (morphine) 2 mg Q4H PRN IV PAIN LEVEL 7-10 Last administered on 06/15/16 00:22; Admin Dose 2 MG; Start 06/06/16 at 10:30 Docusate Sodium (Colace) 100 mg Q12H PRN PO CONSTIPATION; Start 06/06/16 at 10: 30 Magnesium Hydroxide (Milk Of Mag) 30 ml DAILY PRN PO CONSTIPATION; Start at 10:30 Bisacodyl (Dulcolax) 5 mg DAILY PRN PO CONSTIPATION; Start 06/06/16 at 10:30 Pantoprazole (Protonix Iv) 40 mg DAILY@06 IV Last administered on 07/02/16 05: 57; Admin Dose 40 MG; Start 06/07/16 at 06:00 Enoxaparin Sodium (Lovenox) 40 mg DAILY SC Last administered on 06/30/16 08:48 ; Admin Dose 40 MG; Start 06/07/16 at 09:00 Collagenase (Santyl) 1 applic DAILY TOP Last administered on 07/02/16 09:00; Admin Dose 1 APPLIC; Start 06/07/16 at 09:00 Collagenase (Santyl) 1 applic PRN PRN TOP WOUND CARE; Start 06/06/16 at 16:00 IV Flush (NS 10 ml) 10 ml PRN PRN IV IV PROTOCOL; Start 06/06/16 at 18:30 Ascorbic Acid (Vitamin C) 500 mg DAILY GTB Last administered on 07/02/16 10:09 ; Admin Dose 500 MG; Start 06/07/16 at 09:00 Aspirin (Aspirin) 325 mg DAILY GTB Last administered on 07/02/16 10:08; Admin Dose 325 MG; Start 06/07/16 at 09:00 Multivitamins (Thera-Plus) 5 ml DAILY GTB Last administered on 07/02/16 10:09; Admin Dose 5 ML; Start 06/07/16 at 09:00 Tamsulosin HCl (Flomax) 0.4 mg HS PO Last administered on 07/01/16 22:17; Admin Dose 0.4 MG; Start 06/07/16 at 21:00 Mupirocin (Bactroban) 1 applic BID TOP Last administered on 07/02/16 09:00; Admin Dose 1 APPLIC; Start 06/07/16 at 21:00 Metoclopramide HCl (Reglan) 10 mg Q6H PRN IV NAUSEA AND/OR VOMITING Last administered on 06/08/16 18:00; Admin Dose 10 MG; Start 06/08/16 at 09:30 Lorazepam (Ativan) 1 mg Q6H PRN IV AGITATION/ANXIETY Last administered on 12:34; Admin Dose 1 MG; Start 06/09/16 at 13:30 Diagnostic Test (Pha) (Accu-Chek) 1 ea Q6 XX Last administered on 07/02/16 12: 29; Admin Dose 1 EA; Start 06/25/16 at 18:00 Midodrine (Proamatine) 5 mg TID@09,13,17 GTB Last administered on 07/02/16 12: 31; Admin Dose 5 MG; Start 06/25/16 at 17:00 Citric Acid/ Sodium Citrate 30 ml 30 ml BID PO Last administered on 07/02/16 10 :09; Admin Dose 30 ML; Start 06/26/16 at 21:00 Sodium Chloride 1,000 ml @ 125 mls/hr Q8H IV Last administered on 07/02/16 05: 58; Admin Dose 125 MLS/HR; Start 06/29/16 at 15:30 Piperacillin Sod/ Tazobactam Sod 50 ml @ 100 mls/hr Q8 IVPB Last administered on 07/02/16 05:57; Admin Dose 100 MLS/HR; Start 06/29/16 at 16:15 Vancomycin HCl (Vancocin) 250 ml @ 125 mls/hr Q36H IVPB Last administered on 06:46; Admin Dose 125 MLS/HR; Start 07/01/16 at 07:00 Potassium Chloride (Potassium Chloride Pwd/Soln) 40 meq DAILY GTB Last administered on 07/02/16 10:09; Admin Dose 40 MEQ; Start 06/30/16 at 10:30 Atenolol (Tenormin) 12.5 mg BID PO Last administered on 07/02/16 10:09; Admin Dose 12.5 MG; Start 06/30/16 at 23:00 ZEUS CHAPPELL MD July 02, 2016 13:19
--- NOTE | 2016-07-02 14:12 | CONS ---
Date/Time of Note Date/Time of Note DATE: 07/02/16 TIME: 14:11 Consult Date/Type/Reason Admit Date/Time Jun 06, 2016 at 08:08 Initial Consult Date 06/07/16 Type of Consultation: pulmonary Ordering Provider: HOLLI LINDER MD Subjective Appears comfortable no new events Objective Vital Signs Date Time Temp Pulse Resp B/P Pulse Ox O2 Delivery O2 Flow Rate FiO2 07/02/16 13:45 105 26 100 30 07/02/16 11:31 98.8 121/74 06/28/16 16:59 Mechanical Ventilator Intake and Output 07/01/16 07/01/16 07/02/16 15:00 23:00 07:00 Intake Total 980 ml 850 ml Output Total 440 ml 1500 ml 900 ml Balance 540 ml -1500 ml -50 ml Results/Medications Result Diagram: 07/02/16 1028 07/01/16 0600 Results 24 hrs Laboratory Tests Test 07/01/16 17:46 07/02/16 00:29 07/02/16 06:04 07/02/16 07:35 Bedside Glucose 111 117 120 120 Test 07/02/16 10:28 07/02/16 12:29 White Blood Count 16.1 #H Red Blood Count 3.20 #L Hemoglobin 9.5 #L Hematocrit 28.4 #L Mean Corpuscular Volume 88.8 Mean Corpuscular Hemoglobin 29.7 Mean Corpuscular Hemoglobin Concent 33.5 Red Cell Distribution Width 17.2 H Platelet Count 249 # Mean Platelet Volume 11.7 H Neutrophils % 75.0 Band Neutrophils % 3.0 Lymphocytes % 13.0 L Monocytes % 2.0 Eosinophils % 2.0 Metamyelocytes % 1.0 H Myelocytes % 2.0 H Promyelocytes % 2.0 H Neutrophils # 12.1 H Lymphocytes # 2.1 Monocytes # 0.3 Eosinophils # 0.3 Metamyelocytes # 0.2 Myelocytes # 0.3 Promyelocytes # 0.3 Differential Comment MANUAL DIFF Large Platelets OCCASIONAL Bedside Glucose 153 Medications Current Medications Naloxone HCl (Narcan) 0.4 mg Q3M PRN IV DECREASED REPIRATORY RATE; Start at 10:30 Ondansetron HCl (Zofran Inj) 4 mg Q6H PRN IV NAUSEA AND/OR VOMITING; Start 01/12 at 10:30 Nitroglycerin (Nitroglycerin (Sl Tab) 0.4 Mg) 1 tab Q5M PRN SL CHEST PAIN; Start 06/06/16 at 10:30 Acetaminophen (Tylenol Liquid) 650 mg Q6H PRN PO PAIN LEVEL 1-3 OR FEVER Last administered on 06/29/16 12:50; Admin Dose 650 MG; Start 06/06/16 at 10:30 Morphine Sulfate (morphine) 2 mg Q4H PRN IV PAIN LEVEL 7-10 Last administered on 06/15/16 00:22; Admin Dose 2 MG; Start 06/06/16 at 10:30 Docusate Sodium (Colace) 100 mg Q12H PRN PO CONSTIPATION; Start 06/06/16 at 10: 30 Magnesium Hydroxide (Milk Of Mag) 30 ml DAILY PRN PO CONSTIPATION; Start at 10:30 Bisacodyl (Dulcolax) 5 mg DAILY PRN PO CONSTIPATION; Start 06/06/16 at 10:30 Pantoprazole (Protonix Iv) 40 mg DAILY@06 IV Last administered on 07/02/16 05: 57; Admin Dose 40 MG; Start 06/07/16 at 06:00 Enoxaparin Sodium (Lovenox) 40 mg DAILY SC Last administered on 06/30/16 08:48 ; Admin Dose 40 MG; Start 06/07/16 at 09:00 Collagenase (Santyl) 1 applic DAILY TOP Last administered on 07/02/16 09:00; Admin Dose 1 APPLIC; Start 06/07/16 at 09:00 Collagenase (Santyl) 1 applic PRN PRN TOP WOUND CARE; Start 06/06/16 at 16:00 IV Flush (NS 10 ml) 10 ml PRN PRN IV IV PROTOCOL; Start 06/06/16 at 18:30 Ascorbic Acid (Vitamin C) 500 mg DAILY GTB Last administered on 07/02/16 10:09 ; Admin Dose 500 MG; Start 06/07/16 at 09:00 Aspirin (Aspirin) 325 mg DAILY GTB Last administered on 07/02/16 10:08; Admin Dose 325 MG; Start 06/07/16 at 09:00 Multivitamins (Thera-Plus) 5 ml DAILY GTB Last administered on 07/02/16 10:09; Admin Dose 5 ML; Start 06/07/16 at 09:00 Tamsulosin HCl (Flomax) 0.4 mg HS PO Last administered on 07/01/16 22:17; Admin Dose 0.4 MG; Start 06/07/16 at 21:00 Mupirocin (Bactroban) 1 applic BID TOP Last administered on 07/02/16 09:00; Admin Dose 1 APPLIC; Start 06/07/16 at 21:00 Metoclopramide HCl (Reglan) 10 mg Q6H PRN IV NAUSEA AND/OR VOMITING Last administered on 06/08/16 18:00; Admin Dose 10 MG; Start 06/08/16 at 09:30 Lorazepam (Ativan) 1 mg Q6H PRN IV AGITATION/ANXIETY Last administered on 12:34; Admin Dose 1 MG; Start 06/09/16 at 13:30 Diagnostic Test (Pha) (Accu-Chek) 1 ea Q6 XX Last administered on 07/02/16 12: 29; Admin Dose 1 EA; Start 06/25/16 at 18:00 Midodrine (Proamatine) 5 mg TID@,,17 GTB Last administered on 07/02/16 12: 31; Admin Dose 5 MG; Start 06/25/16 at 17:00 Citric Acid/ Sodium Citrate 30 ml 30 ml BID PO Last administered on 07/02/16 10 :09; Admin Dose 30 ML; Start 06/26/16 at 21:00 Sodium Chloride 1,000 ml @ 125 mls/hr Q8H IV Last administered on 07/02/16 05: 58; Admin Dose 125 MLS/HR; Start 06/29/16 at 15:30 Piperacillin Sod/ Tazobactam Sod 50 ml @ 100 mls/hr Q8 IVPB Last administered on 07/02/16 13:35; Admin Dose 100 MLS/HR; Start 06/29/16 at 16:15 Vancomycin HCl (Vancocin) 250 ml @ 125 mls/hr Q36H IVPB Last administered on 06:46; Admin Dose 125 MLS/HR; Start 07/01/16 at 07:00 Potassium Chloride (Potassium Chloride Pwd/Soln) 40 meq DAILY GTB Last administered on 07/02/16 10:09; Admin Dose 40 MEQ; Start 06/30/16 at 10:30 Atenolol (Tenormin) 12.5 mg BID PO Last administered on 07/02/16t 10:09; Admin Dose 12.5 MG; Start 06/30/16 at 23:00 Assessment/Plan Chief Complaint/Hosp Course Assessment 1. Vent dependent respiratory failure with evidence of healthcare associated pneumonia 2. Status post bowel perforation with drainage, resolving leukocytosis 3. Persistent leukocytosis sepsis likely secondary to bowel abscesses VIET drains in place decreased output 4. Chronic atrial fibrillation 5. Decubitus ulcers 6. Dysphagia with G-tube 7. Anemia worsening no evidence of GI bleed Plan 1. Continue mechanical ventilation 2. Continue broad-spectrum antibiotics per infectious diseases 3. Surgical recommendations regarding abdominal drains 4. Palliative care consult ? 5. DVT and GI prophylaxis 6. Stable post transfusion Disposition Continue current care Consider palliative care consult consider hospice Discharge planning Problems: KAVON TROY MD, [facility] July 02, 2016 14:12
--- NOTE | 2016-07-02 14:44 | RADRPT ---
PROCEDURE: XR Chest. CLINICAL INDICATION: Shortness of breath. TECHNIQUE: Single frontal view. COMPARISON: 06/26/2016. FINDINGS: The tracheostomy tube and right-sided dual lead permanent pacemaker remain in satisfactory position. There is atelectasis at the lung bases, unchanged. Mild pulmonary edema is unchanged. The lungs are otherwise clear. The heart is mildly enlarged. There is no pleural effusion. There is no pneumothorax. IMPRESSION: 1. No change from 06/26/2016. RPTAT: QQ .Henrik Reyna MD, MD Date Time Electronically viewed and signed by .Henrik Reyna MD, MD on 07/02/2016 14:43 .R/
--- NOTE | 2016-07-02 16:16 | CONS ---
Date/Time of Note Date/Time of Note DATE: 07/02/16 TIME: 16:13 Assessment/Plan Assessment/Plan Chief Complaint/Hosp Course SUBJECTIVE: No changes overnight, no fevers MICROBIOLOGY: Stool for C. diff came back negative. Urine culture on 2016 negative. Sputum cx + A.b INDWELLINGS: Trach, PEG, Alfonso, PICC line. PHYSICAL EXAMINATION: GENERAL: This is a well-developed, fragile, chronically ill-appearing, elderly man who is in no distress. HEENT: Head atraumatic, normocephalic. Sclerae anicteric. Buccal mucosa dry. NECK: Supple. Tracheostomy present. CHEST: Rise symmetrical. Breath sounds diminished to bases. HEART: S1, S2. ABDOMEN: Soft. Bowel tones hypoactive. EXTREMITIES: Without cyanosis. Bilateral trace edema. ASSESSMENT: 1. HCAP. 2. Status post contained perforated viscus, requiring drainage catheter placement that was discontinued. 3. Status urinary tract infection, and methicillin-resistant Staphylococcus aureus bacteremia on admission. 4. Coronary artery disease, chronic atrial fibrillation. 5. Encephalopathy. 6. Sacral decubitus. 7. Status post sepsis with shock PLAN: Stable, cxr noted, will dc abx, start [place] INH, repeat cx's prn DW staff Problems: Consultation Date/Type/Reason Admit Date/Time Jun 06, 2016 at 08:08 Initial Consult Date 06/07/16 Type of Consultation: ID Referring Provider: HOLLI LINDER MD Exam/Review of Systems Vital Signs Vitals Vital Signs Date Time Temp Pulse Resp B/P Pulse Ox O2 Delivery O2 Flow Rate FiO2 07/02/16 15:07 98.5 75 15 121/75 100 07/02/16 13:45 30 06/28/16 16:59 Mechanical Ventilator Intake and Output 07/01/16 07/01/16 07/02/16 15:00 23:00 07:00 Intake Total 980 ml 850 ml Output Total 440 ml 1500 ml 900 ml Balance 540 ml -1500 ml -50 ml Results Result Diagram: 07/02/16 1028 07/01/16 0600 Results 24 hrs Laboratory Tests Test 07/01/16 17:46 07/02/16 00:29 07/02/16 06:04 07/02/16 07:35 Bedside Glucose 111 117 120 120 Test 07/02/16 10:28 07/02/16 12:29 White Blood Count 16.1 #H Red Blood Count 3.20 #L Hemoglobin 9.5 #L Hematocrit 28.4 #L Mean Corpuscular Volume 88.8 Mean Corpuscular Hemoglobin 29.7 Mean Corpuscular Hemoglobin Concent 33.5 Red Cell Distribution Width 17.2 H Platelet Count 249 # Mean Platelet Volume 11.7 H Neutrophils % 75.0 Band Neutrophils % 3.0 Lymphocytes % 13.0 L Monocytes % 2.0 Eosinophils % 2.0 Metamyelocytes % 1.0 H Myelocytes % 2.0 H Promyelocytes % 2.0 H Neutrophils # 12.1 H Lymphocytes # 2.1 Monocytes # 0.3 Eosinophils # 0.3 Metamyelocytes # 0.2 Myelocytes # 0.3 Promyelocytes # 0.3 Differential Comment MANUAL DIFF Large Platelets OCCASIONAL Bedside Glucose 153 Medications Medications Current Medications Naloxone HCl (Narcan) 0.4 mg Q3M PRN IV DECREASED REPIRATORY RATE; Start at 10:30 Ondansetron HCl (Zofran Inj) 4 mg Q6H PRN IV NAUSEA AND/OR VOMITING; Start 01/12 at 10:30 Nitroglycerin (Nitroglycerin (Sl Tab) 0.4 Mg) 1 tab Q5M PRN SL CHEST PAIN; Start 06/06/16 at 10:30 Acetaminophen (Tylenol Liquid) 650 mg Q6H PRN PO PAIN LEVEL 1-3 OR FEVER Last administered on 06/29/16 12:50; Admin Dose 650 MG; Start 06/06/16 at 10:30 Morphine Sulfate (morphine) 2 mg Q4H PRN IV PAIN LEVEL 7-10 Last administered on 06/15/16 00:22; Admin Dose 2 MG; Start 06/06/16 at 10:30 Docusate Sodium (Colace) 100 mg Q12H PRN PO CONSTIPATION; Start 06/06/16 at 10: 30 Magnesium Hydroxide (Milk Of Mag) 30 ml DAILY PRN PO CONSTIPATION; Start at 10:30 Bisacodyl (Dulcolax) 5 mg DAILY PRN PO CONSTIPATION; Start 06/06/16 at 10:30 Pantoprazole (Protonix Iv) 40 mg DAILY@06 IV Last administered on 07/02/16 05: 57; Admin Dose 40 MG; Start 06/07/16 at 06:00 Enoxaparin Sodium (Lovenox) 40 mg DAILY SC Last administered on 06/30/16 08:48 ; Admin Dose 40 MG; Start 06/07/16 at 09:00 Collagenase (Santyl) 1 applic DAILY TOP Last administered on 07/02/16 09:00; Admin Dose 1 APPLIC; Start 06/07/16 at 09:00 Collagenase (Santyl) 1 applic PRN PRN TOP WOUND CARE; Start 06/06/16 at 16:00 IV Flush (NS 10 ml) 10 ml PRN PRN IV IV PROTOCOL; Start 06/06/16 at 18:30 Ascorbic Acid (Vitamin C) 500 mg DAILY GTB Last administered on 07/02/16 10:09 ; Admin Dose 500 MG; Start 06/07/16 at 09:00 Aspirin (Aspirin) 325 mg DAILY GTB Last administered on 07/02/16 10:08; Admin Dose 325 MG; Start 06/07/16 at 09:00 Multivitamins (Thera-Plus) 5 ml DAILY GTB Last administered on 07/02/16 10:09; Admin Dose 5 ML; Start 06/07/16 at 09:00 Tamsulosin HCl (Flomax) 0.4 mg HS PO Last administered on 07/01/16 22:17; Admin Dose 0.4 MG; Start 06/07/16 at 21:00 Mupirocin (Bactroban) 1 applic BID TOP Last administered on 07/02/16 09:00; Admin Dose 1 APPLIC; Start 06/07/16 at 21:00 Metoclopramide HCl (Reglan) 10 mg Q6H PRN IV NAUSEA AND/OR VOMITING Last administered on 06/08/16 18:00; Admin Dose 10 MG; Start 06/08/16 at 09:30 Lorazepam (Ativan) 1 mg Q6H PRN IV AGITATION/ANXIETY Last administered on 12:34; Admin Dose 1 MG; Start 06/09/16 at 13:30 Diagnostic Test (Pha) (Accu-Chek) 1 ea Q6 XX Last administered on 07/02/16 12: 29; Admin Dose 1 EA; Start 06/25/16 at 18:00 Midodrine (Proamatine) 5 mg TID@ GTB Last administered on 07/02/16 12: 31; Admin Dose 5 MG; Start 06/25/16 at 17:00 Citric Acid/ Sodium Citrate 30 ml 30 ml BID PO Last administered on 07/02/16 10 :09; Admin Dose 30 ML; Start 06/26/16 at 21:00 Sodium Chloride 1,000 ml @ 125 mls/hr Q8H IV Last administered on 07/02/16 05: 58; Admin Dose 125 MLS/HR; Start 06/29/16 at 15:30 Piperacillin Sod/ Tazobactam Sod 50 ml @ 100 mls/hr Q8 IVPB Last administered on 07/02/16 13:35; Admin Dose 100 MLS/HR; Start 06/29/16 at 16:15 Vancomycin HCl (Vancocin) 250 ml @ 125 mls/hr Q36H IVPB Last administered on 06:46; Admin Dose 125 MLS/HR; Start 07/01/16 at 07:00 Potassium Chloride (Potassium Chloride Pwd/Soln) 40 meq DAILY GTB Last administered on 07/02/16 10:09; Admin Dose 40 MEQ; Start 06/30/16 at 10:30 Atenolol (Tenormin) 12.5 mg BID PO Last administered on 07/02/16 10:09; Admin Dose 12.5 MG; Start 06/30/16 at 23:00 JOSE G CUNNINGHAM NP July 02, 2016 16:16
--- NOTE | 2016-07-02 18:11 | PN ---
Date/Time of Note Date/Time of Note DATE: 07/02/16 TIME: 18:09 Assessment/Plan VTE Prophylaxis VTE Prophylaxis Intervention: other Lines/Catheters IV Catheter Type (from Nrs): PICC Line Central line still needed: Yes Urinary Cath still in place: Yes Reason Cath still needed: other (indicate) Assessment/Plan Chief Complaint/Hosp Course IMPRESSION: 1. Sepsis 2. Pneumonia. aspiration 3. Leukocytosis. 4. Hematuria. better 5. Lactic acidosis. better 6. Respiratory failure. 7. Gastrostomy tube placement. 8. Anemia. 9. Atrial fibrillation. 10. History of congestive heart failure with decreased ejection fraction. 11. vdrf 12. History of paroxysmal atrial fibrillation. 13. The patient now has decubitus. 14 uti 15 polymirobial sepsis 16 pul edema BETTER 17 no gi bleed 18 hypokalemia 19 diarrhea cdiff neg plan per id iv fluid poor prognosis KCL weaning per pulmonary and cardio surgery consult GT FEEDING per iD bicitra snf when stable poor prognosis Problems: Subjective 24 Hr Interval Summary Subjective hx not possible: other (AWAKE) Exam/Review of Systems Vital Signs Vitals Vital Signs Date Time Temp Pulse Resp B/P Pulse Ox O2 Delivery O2 Flow Rate FiO2 07/02/16 17:00 82 29 100 30 07/02/16 15:07 98.5 121/75 06/28/16 16:59 Mechanical Ventilator Intake and Output 07/01/16 07/01/16 07/02/16 15:00 23:00 07:00 Intake Total 980 ml 850 ml Output Total 440 ml 1500 ml 900 ml Balance 540 ml -1500 ml -50 ml Exam Respiratory: diminished breath sounds Cardiovascular: regular rate and rhythm Gastrointestinal: bowel sounds (+), soft Extremities: edema (+) Results Result Diagram: 07/02/16 1028 07/01/16 0600 Results 24 hrs Laboratory Tests Test 07/02/16 00:29 07/02/16 06:04 07/02/16 07:35 07/02/16 10:28 Bedside Glucose 117 120 120 White Blood Count 16.1 #H Red Blood Count 3.20 #L Hemoglobin 9.5 #L Hematocrit 28.4 #L Mean Corpuscular Volume 88.8 Mean Corpuscular Hemoglobin 29.7 Mean Corpuscular Hemoglobin Concent 33.5 Red Cell Distribution Width 17.2 H Platelet Count 249 # Mean Platelet Volume 11.7 H Neutrophils % 75.0 Band Neutrophils % 3.0 Lymphocytes % 13.0 L Monocytes % 2.0 Eosinophils % 2.0 Metamyelocytes % 1.0 H Myelocytes % 2.0 H Promyelocytes % 2.0 H Neutrophils # 12.1 H Lymphocytes # 2.1 Monocytes # 0.3 Eosinophils # 0.3 Metamyelocytes # 0.2 Myelocytes # 0.3 Promyelocytes # 0.3 Differential Comment MANUAL DIFF Large Platelets OCCASIONAL Test 07/02/16 12:29 07/02/16 16:53 Bedside Glucose 153 104 Medications Medications Current Medications Naloxone HCl (Narcan) 0.4 mg Q3M PRN IV DECREASED REPIRATORY RATE; Start at 10:30 Ondansetron HCl (Zofran Inj) 4 mg Q6H PRN IV NAUSEA AND/OR VOMITING; Start 01/12 at 10:30 Nitroglycerin (Nitroglycerin (Sl Tab) 0.4 Mg) 1 tab Q5M PRN SL CHEST PAIN; Start 06/06/16 at 10:30 Acetaminophen (Tylenol Liquid) 650 mg Q6H PRN PO PAIN LEVEL 1-3 OR FEVER Last administered on 06/29/16 12:50; Admin Dose 650 MG; Start 06/06/16 at 10:30 Morphine Sulfate (morphine) 2 mg Q4H PRN IV PAIN LEVEL 7-10 Last administered on 06/15/16 00:22; Admin Dose 2 MG; Start 06/06/16 at 10:30 Docusate Sodium (Colace) 100 mg Q12H PRN PO CONSTIPATION; Start 06/06/16 at 10: 30 Magnesium Hydroxide (Milk Of Mag) 30 ml DAILY PRN PO CONSTIPATION; Start at 10:30 Bisacodyl (Dulcolax) 5 mg DAILY PRN PO CONSTIPATION; Start 06/06/16 at 10:30 Pantoprazole (Protonix Iv) 40 mg DAILY@06 IV Last administered on 07/02/16 05: 57; Admin Dose 40 MG; Start 06/07/16 at 06:00 Enoxaparin Sodium (Lovenox) 40 mg DAILY SC Last administered on 07/02/16 17:24 ; Admin Dose 40 MG; Start 06/07/16 at 09:00 Collagenase (Santyl) 1 applic DAILY TOP Last administered on 07/02/16 09:00; Admin Dose 1 APPLIC; Start 06/07/16 at 09:00 Collagenase (Santyl) 1 applic PRN PRN TOP WOUND CARE; Start 06/06/16 at 16:00 IV Flush (NS 10 ml) 10 ml PRN PRN IV IV PROTOCOL; Start 06/06/16 at 18:30 Ascorbic Acid (Vitamin C) 500 mg DAILY GTB Last administered on 07/02/16 10:09 ; Admin Dose 500 MG; Start 06/07/16 at 09:00 Aspirin (Aspirin) 325 mg DAILY GTB Last administered on 07/02/16 10:08; Admin Dose 325 MG; Start 06/07/16 at 09:00 Multivitamins (Thera-Plus) 5 ml DAILY GTB Last administered on 07/02/16 10:09; Admin Dose 5 ML; Start 06/07/16 at 09:00 Tamsulosin HCl (Flomax) 0.4 mg HS PO Last administered on 07/01/16 22:17; Admin Dose 0.4 MG; Start 06/07/16 at 21:00 Mupirocin (Bactroban) 1 applic BID TOP Last administered on 07/02/16 09:00; Admin Dose 1 APPLIC; Start 06/07/16 at 21:00 Metoclopramide HCl (Reglan) 10 mg Q6H PRN IV NAUSEA AND/OR VOMITING Last administered on 06/08/16 18:00; Admin Dose 10 MG; Start 06/08/16 at 09:30 Lorazepam (Ativan) 1 mg Q6H PRN IV AGITATION/ANXIETY Last administered on 12:34; Admin Dose 1 MG; Start 06/09/16 at 13:30 Diagnostic Test (Pha) (Accu-Chek) 1 ea Q6 XX Last administered on 07/02/16 17: 12; Admin Dose 1 EA; Start 06/25/16 at 18:00 Midodrine (Proamatine) 5 mg TID@,,17 GTB Last administered on 07/02/16 17: 25; Admin Dose 5 MG; Start 06/25/16 at 17:00 Citric Acid/ Sodium Citrate 30 ml 30 ml BID PO Last administered on 07/02/16 10 :09; Admin Dose 30 ML; Start 06/26/16 at 21:00 Sodium Chloride (NS) 1,000 ml @ 125 mls/hr Q8H IV Last administered on 05:58; Admin Dose 125 MLS/HR; Start 06/29/16 at 15:30 Potassium Chloride (Potassium Chloride Pwd/Soln) 40 meq DAILY GTB Last administered on 07/02/16 10:09; Admin Dose 40 MEQ; Start 06/30/16 at 10:30 Atenolol (Tenormin) 12.5 mg BID PO Last administered on 07/02/16 10:09; Admin Dose 12.5 MG; Start 06/30/16 at 23:00 HOLLI LINDER MD July 02, 2016 18:11
[2016-07-02] MEDS: COLISTIMETHATE (25 MG/ML INHAL SYG) NEB SCH (20:00)
[2016-07-02] MEDS: TAMSULOSIN (SR) 0.4 MG CAP PO SCH (22:11)
[2016-07-03] VITALS (22 sets, daily range): BP systolic 97–130; BP diastolic 51–60; PULSE 65–100; RESP 16–30
[2016-07-03] MEDS: IPRATROPIUM (HFA) 12.9 GM INHALER INH SCH ×6 (01:37→21:11)
[2016-07-03] MEDS: ALBUTEROL 18 GM INHALER INH SCH ×6 (01:37→21:10)
[2016-07-03] MEDS: ACCU-CHEK XX SCH ×4 (06:00→17:56)
[2016-07-03] MEDS: PANTOPRAZOLE 40 MG INJ IV SCH (06:20)
[2016-07-03] MEDS: SOD CHLORIDE 0.9% 1,000 ML IV SCH ×3 (06:31→18:00)
[2016-07-03 07:27] LABS: ADD SCAN DIFF NO
[2016-07-03 07:39] LABS: ABNORMAL IP MESSAGE 1; BASOPHIL # 0.1 10^3/ul (0.0-0.1); BASOPHILS % 0.3 % (0.0-2.0); EOSINOPHILS # 0.6 10^3/ul (0.0-0.5); EOSINOPHILS % 3.3 % (0.0-7.0); HEMATOCRIT 29.4 % (42.0-52.0); HEMOGLOBIN 9.4 g/dl (14.0-18.0); LYMPHOCYTES # 2.7 10^3/ul (0.8-2.9); LYMPHOCYTES % 14.3 % (15.0-51.0); MEAN CORPUSCULAR HEMOGLOBIN 29.2 pg (29.0-33.0); MEAN CORPUSCULAR VOLUME 91.3 fl (82.0-101.0); MONOCYTE # 2.1 10^3/ul (0.3-0.9); MONOCYTES % 11.1 % (0.0-11.0); NEUTROPHIL # 9.2 10^3/ul (1.6-7.5); NEUTROPHILS % 49.6 % (39.0-77.0); NUCLEATED RED BLOOD CELLS # 0.1 10^3/ul (0.0-0.0); NUCLEATED RED BLOOD CELLS% 0.3 /100WBC (0.0-0.0); PLATELET COUNT 317 10^3/UL (140-415); RED BLOOD COUNT 3.22 10^6/ul (4.70-6.10); RED CELL DISTRIBUTION WIDTH 18.2 % (11.5-14.5); WHITE BLOOD COUNT 18.6 10^3/ul (4.8-10.8)
[2016-07-03 07:51] LABS: POTASSIUM 3.5 mmol/L (3.5-5.1)
[2016-07-03 07:54] LABS: ALBUMIN/GLOBULIN RATIO 0.68; BILIRUBIN,INDIRECT 0.2 mg/dl (0-1.1); BILIRUBIN,TOTAL 0.2 mg/dl (0.2-1.3); CALCIUM 6.3 mg/dl (8.4-10.2); CREATININE 1.24 mg/dl (0.61-1.24); TOTAL PROTEIN 4.9 g/dl (6.1-8.1)
[2016-07-03] MEDS: ATENOLOL 25 MG TAB PO SCH ×2 (09:00→20:42)
[2016-07-03] MEDS: MULTIVITAMINS 5 ML CUP GTB SCH (09:05)
[2016-07-03] MEDS: CITRIC ACID/SODIUM CITRATE 15 ML CUP PO SCH ×2 (09:05→21:33)
[2016-07-03] MEDS: POTASSIUM CHLORIDE 20 MEQ POWDER FOR ORAL SOLN GTB SCH (09:08)
[2016-07-03] MEDS: ASPIRIN 325 MG TAB GTB SCH (09:08)
[2016-07-03] MEDS: COLLAGENASE 30 GM TUBE TOP SCH (09:08)
[2016-07-03] MEDS: MUPIROCIN 2% 22 GM OINT TOP SCH ×2 (09:08→20:43)
[2016-07-03] MEDS: ENOXAPARIN 40 MG/0.4 ML SYG SC SCH (09:12)
[2016-07-03] MEDS: ASCORBIC ACID 500 MG TAB GTB SCH (09:12)
[2016-07-03] MEDS: COLISTIMETHATE (25 MG/ML INHAL SYG) NEB SCH ×2 (09:15→20:00)
[2016-07-03] MEDS: MIDODRINE 5 MG TAB GTB SCH ×3 (09:45→17:56)
--- NOTE | 2016-07-03 10:52 | PN ---
Date/Time of Note Date/Time of Note DATE: 07/03/16 TIME: 10:45 Assessment/Plan Lines/Catheters IV Catheter Type (from [facility]): PICC Line Alfonso in Place (from [facility]): Yes Assessment/Plan Chief Complaint/Hosp Course 1. Contained perforated viscous s/p IR drain 06/11. Cx noted. Leukocytosis resolved. Tube feeds started. Bowel function. Drain dcd. s/p Abx. Persistent leukocytosis. -? paredes cx and scan > will d/w team 2. Pneumonia -pulmonary toilette -abx 3. Sepsis, recent. Leukocytosis worsening again. -abx -as above 4. Sacral decubitus ulcer -off load -nutrition optimization -vit c -local care 5. Chronic AFib -rate control -optimize electrolytes -tx infections 6. Anemia, dropped again -? source -? tx 7. Hypoalbuminemia -eventual nutritional optimization 8. CHF -judicious fluid management -cardiac optimization Thank you, Problems: Subjective 24 Hr Interval Summary Leukocytosis worsening. No f/c. No cough. No sz. No rashes. No bloating. No vomiting. No bleeding. TFs. Bowel function. Exam/Review of Systems Vital Signs Vitals Vital Signs Date Time Temp Pulse Resp B/P Pulse Ox O2 Delivery O2 Flow Rate FiO2 07/03/16 10:25 30 07/03/16 09:27 100 07/03/16 09:15 28 98 07/03/16 07:38 98.0 97/57 Intake and Output 07/02/16 07/02/16 07/03/16 15:00 23:00 07:00 Intake Total 850 ml Output Total 250 ml 1200 ml Balance -250 ml -350 ml Exam Free Text/Dictation Constitutional: No distress, No oriented Psych: confusion, No anxiety Head: atraumatic, normocephalic Eyes: PERRL, nl conjunctiva, No icteric ENMT: mucosa pink and moist, nl external ears & nose, nl lips & teeth Neck: jvd (min), non-tender Respiratory: No congested cough, No labored breathing Cardiovascular: No edema, No regular rate and rhythm Gastrointestinal: soft, PEGNo distended, No firm, No rebound or guarding Musculoskeletal: No joint tenderness, No nl gait and stance Extremities: No calf tenderness, No cyanosis Neurological: No nl mental status, No nl speech, No nl strength Skin: nl turgor, rash or lesions (Sacral and LE decubitus ulcerations), No diaphoresis Lymph: nl lymph nodes Results Result Diagram: 07/03/16 0620 07/03/16 0625 DAREK AHMADI MD July 03, 2016 10:51
--- NOTE | 2016-07-03 11:10 | CONS ---
Date/Time of Note Date/Time of Note DATE: 07/03/16 TIME: 11:09 Consult Date/Type/Reason Admit Date/Time Jun 06, 2016 at 08:08 Initial Consult Date 06/07/16 Type of Consultation: pulmonary ICU Ordering Provider: HOLLI LINDER MD Subjective No significant changes overnight neurologically unchanged Objective Vital Signs Date Time Temp Pulse Resp B/P Pulse Ox O2 Delivery O2 Flow Rate FiO2 07/03/16 10:25 30 07/03/16 09:27 100 07/03/16 09:15 28 98 07/03/16 07:38 98.0 97/57 Intake and Output 07/02/16 07/02/16 07/03/16 15:00 23:00 07:00 Intake Total 850 ml Output Total 250 ml 1200 ml Balance -250 ml -350 ml Exam PHYSICAL EXAMINATION GENERAL: Elderly gentleman, on mechanical ventilation, VITAL SIGNS: see below. HEENT: Pupils equal, round, and reactive to light. Tracheostomy site clean and intact. CARDIAC: S1, S2, tachycardia. CHEST: Diminished air entry bilaterally. ABDOMEN: Mildly distended. Diminished bowel sounds no guarding or rebound EXTREMITIES: No cyanosis, clubbing edema +2 NEUROLOGIC: Generalized weakness Results/Medications Result Diagram: 07/03/16 0620 07/03/16 0625 Results 24 hrs Laboratory Tests Test 07/02/16 12:29 07/02/16 16:53 07/03/16 00:38 07/03/16 06:19 Bedside Glucose 153 104 121 119 Test 07/03/16 06:20 07/03/16 06:25 White Blood Count 18.6 H Red Blood Count 3.22 L Hemoglobin 9.4 L Hematocrit 29.4 L Mean Corpuscular Volume 91.3 Mean Corpuscular Hemoglobin 29.2 Mean Corpuscular Hemoglobin Concent 32.0 Red Cell Distribution Width 18.2 H Platelet Count 317 # Mean Platelet Volume 12.0 H Neutrophils % 49.6 Lymphocytes % 14.3 L Monocytes % 11.1 H Eosinophils % 3.3 Basophils % 0.3 Nucleated Red Blood Cells % 0.3 H Neutrophils # 9.2 H Lymphocytes # 2.7 Monocytes # 2.1 H Eosinophils # 0.6 H Basophils # 0.1 Nucleated Red Blood Cells # 0.1 H Magnesium Level 1.0 L Sodium Level 141 Potassium Level 3.5 Chloride Level 109 Carbon Dioxide Level 22 Anion Gap 14 Blood Urea Nitrogen 49 H Creatinine 1.24 Glucose Level 88 Calcium Level 6.3 L Total Bilirubin 0.2 Direct Bilirubin 0.00 Indirect Bilirubin 0.2 Aspartate Amino Transf (AST/SGOT) 40 Alanine Aminotransferase (ALT/SGPT) 41 Alkaline Phosphatase 141 H Total Protein 4.9 L Albumin 2.0 L Globulin 2.90 Albumin/Globulin Ratio 0.68 Medications Current Medications Naloxone HCl (Narcan) 0.4 mg Q3M PRN IV DECREASED REPIRATORY RATE; Start at 10:30 Ondansetron HCl (Zofran Inj) 4 mg Q6H PRN IV NAUSEA AND/OR VOMITING; Start 01/12 at 10:30 Nitroglycerin (Nitroglycerin (Sl Tab) 0.4 Mg) 1 tab Q5M PRN SL CHEST PAIN; Start 06/06/16 at 10:30 Acetaminophen (Tylenol Liquid) 650 mg Q6H PRN PO PAIN LEVEL 1-3 OR FEVER Last administered on 06/29/16 12:50; Admin Dose 650 MG; Start 06/06/16 at 10:30 Morphine Sulfate (morphine) 2 mg Q4H PRN IV PAIN LEVEL 7-10 Last administered on 06/15/16 00:22; Admin Dose 2 MG; Start 06/06/16 at 10:30 Docusate Sodium (Colace) 100 mg Q12H PRN PO CONSTIPATION; Start 06/06/16 at 10: 30 Magnesium Hydroxide (Milk Of Mag) 30 ml DAILY PRN PO CONSTIPATION; Start at 10:30 Bisacodyl (Dulcolax) 5 mg DAILY PRN PO CONSTIPATION; Start 06/06/16 at 10:30 Pantoprazole (Protonix Iv) 40 mg DAILY@06 IV Last administered on 07/03/16 06: 20; Admin Dose 40 MG; Start 06/07/16 at 06:00 Enoxaparin Sodium (Lovenox) 40 mg DAILY SC Last administered on 07/03/16 09:12 ; Admin Dose 40 MG; Start 06/07/16 at 09:00 Collagenase (Santyl) 1 applic DAILY TOP Last administered on 07/03/16 09:08; Admin Dose 1 APPLIC; Start 06/07/16 at 09:00 Collagenase (Santyl) 1 applic PRN PRN TOP WOUND CARE; Start 06/06/16 at 16:00 IV Flush (NS 10 ml) 10 ml PRN PRN IV IV PROTOCOL; Start 06/06/16 at 18:30 Ascorbic Acid (Vitamin C) 500 mg DAILY GTB Last administered on 07/03/16 09:12 ; Admin Dose 500 MG; Start 06/07/16 at 09:00 Aspirin (Aspirin) 325 mg DAILY GTB Last administered on 07/03/16 09:08; Admin Dose 325 MG; Start 06/07/16 at 09:00 Multivitamins (Thera-Plus) 5 ml DAILY GTB Last administered on 07/03/16 09:05; Admin Dose 5 ML; Start 06/07/16 at 09:00 Tamsulosin HCl (Flomax) 0.4 mg HS PO Last administered on 07/02/16 22:11; Admin Dose 0.4 MG; Start 06/07/16 at 21:00 Mupirocin (Bactroban) 1 applic BID TOP Last administered on 07/03/16 09:08; Admin Dose 1 APPLIC; Start 06/07/16 at 21:00 Metoclopramide HCl (Reglan) 10 mg Q6H PRN IV NAUSEA AND/OR VOMITING Last administered on 06/08/16 18:00; Admin Dose 10 MG; Start 06/08/16 at 09:30 Lorazepam (Ativan) 1 mg Q6H PRN IV AGITATION/ANXIETY Last administered on 12:34; Admin Dose 1 MG; Start 06/09/16 at 13:30 Diagnostic Test (Pha) (Accu-Chek) 1 ea Q6 XX Last administered on 07/02/16 17: 12; Admin Dose 1 EA; Start 06/25/16 at 18:00 Midodrine (Proamatine) 5 mg TID@,,17 GTB Last administered on 07/03/16 09: 45; Admin Dose 5 MG; Start 06/25/16 at 17:00 Citric Acid/ Sodium Citrate 30 ml 30 ml BID PO Last administered on 07/03/16 09 :05; Admin Dose 30 ML; Start 06/26/16 at 21:00 Sodium Chloride (NS) 1,000 ml @ 125 mls/hr Q8H IV Last administered on 5/7/ 17at 22:12; Admin Dose 125 MLS/HR; Start 06/29/16 at 15:30 Potassium Chloride (Potassium Chloride Pwd/Soln) 40 meq DAILY GTB Last administered on 07/03/16 09:08; Admin Dose 40 MEQ; Start 06/30/16 at 10:30 Atenolol 12.5 mg 12.5 mg BID PO Last administered on 07/02/16 22:12; Admin Dose 12.5 MG; Start 06/30/16 at 23:00 Magnesium Sulfate (Magnesium Sulfate 4 Gm/100 ml) 100 ml @ 25 mls/hr ONCE IVPB ; Start 07/03/16 at 12:00; Stop 07/03/16 at 15:59 Assessment/Plan Chief Complaint/Hosp Course Assessment 1. Vent dependent respiratory failure with evidence of healthcare associated pneumonia 2. Status post bowel perforation with drainage, resolving leukocytosis 3. Persistent leukocytosis sepsis likely secondary to bowel abscesses VIET drains in place decreased output 4. Chronic atrial fibrillation 5. Decubitus ulcers 6. Dysphagia with G-tube 7. Anemia worsening no evidence of GI bleed Plan 1. Continue mechanical ventilation 2. Continue broad-spectrum antibiotics per infectious diseases 3. Surgical recommendations regarding abdominal drains 4. Palliative care consult ? 5. DVT and GI prophylaxis 6. Stable post transfusion Disposition Continue current care Consider palliative care consult consider hospice Problems: KAVON TROY MD, [facility] July 03, 2016 11:10
[2016-07-03] MEDS ORDERED: MAGNESIUM SULFATE 4 GM/100 ML 100 ML IVPB SCH (12:00)
--- NOTE | 2016-07-03 12:16 | CONS ---
Date/Time of Note Date/Time of Note DATE: 07/03/16 TIME: 12:12 Assessment/Plan Assessment/Plan Chief Complaint/Hosp Course IMp: 1.CHF-systolic acute on chonic-reasonable volume status at this time 2.Resp failure s/p trach on vent 3.Cardiomyopathy-LVEF 25-30% 4.HTN-with recurrent episodes of Hotn on midodrine 5.PPM-s/p interrogation with proper function-episodes of SVT and short episode VT 06/09/16/good battery life 6.Leukocytosis 7.Tachycardia-PAF/AFL rate controlled 8.Perforated viscous s/p IR drain now removed 9. Renal insuff-? overdiuresis 10. Wide complex tachy-NSVT today 06/30/16 Recc: -Tele -Follow BP/Volume status closely currently off of lasix with improving renal function -Continue abx's and f/u cx data and treat fevers -Continue atenolol as tolerated/possible only -Continue asa/low dose lovenox -Continue abx's/f/u cx data -Palliative care following -Now on midodrine BP support as necessary and thus continue for now -Replete mag in the setting of wide complex tacycardia today Problems: Consultation Date/Type/Reason Admit Date/Time Jun 06, 2016 at 08:08 Initial Consult Date 06/07/16 Type of Consultation: Cardiology Reason for Consultation Cardiomyopathy/CHF Referring Provider: HOLLI LINDER MD Exam/Review of Systems Vital Signs Vitals Vital Signs Date Time Temp Pulse Resp B/P Pulse Ox O2 Delivery O2 Flow Rate FiO2 07/03/16 12:01 98.0 82 18 112/56 99 07/03/16 11:00 30 Intake and Output 07/02/16 07/02/16 07/03/16 15:00 23:00 07:00 Intake Total 850 ml Output Total 250 ml 1200 ml Balance -250 ml -350 ml Exam Review of Systems: CONSTITUTIONAL: No fevers, chills. PULMONARY: trached CARDIOVASCULAR: No opbvious chest pain/palpitations GASTROINTESTINAL: No nausea/vomiting. GENITOURINARY: No hematuria/dysuria. MUSCULOSKELETAL: No obvious myagias/arthalgias. PSYCHIATRIC: No documented depression. NEUROLOGIC: lethargic Constitutional: other (lethargic) Psych: confusion Head: normocephalic ENMT: other (trached) Neck: jvd (9cm water), supple Respiratory: diminished breath sounds (at bases/B) Cardiovascular: regular rate and rhythm Gastrointestinal: non-tender, soft Musculoskeletal: muscle weakness (generalized) Extremities: edema (trace/B) Neurological: lethargic Results Result Diagram: 07/03/16 0620 07/03/16 0625 Results 24 hrs Laboratory Tests Test 07/02/16 12:29 07/02/16 16:53 07/03/16 00:38 07/03/16 06:19 Bedside Glucose 153 104 121 119 Test 07/03/16 06:20 07/03/16 06:25 07/03/16 12:00 White Blood Count 18.6 H Red Blood Count 3.22 L Hemoglobin 9.4 L Hematocrit 29.4 L Mean Corpuscular Volume 91.3 Mean Corpuscular Hemoglobin 29.2 Mean Corpuscular Hemoglobin Concent 32.0 Red Cell Distribution Width 18.2 H Platelet Count 317 # Mean Platelet Volume 12.0 H Neutrophils % 49.6 Lymphocytes % 14.3 L Monocytes % 11.1 H Eosinophils % 3.3 Basophils % 0.3 Nucleated Red Blood Cells % 0.3 H Neutrophils # 9.2 H Lymphocytes # 2.7 Monocytes # 2.1 H Eosinophils # 0.6 H Basophils # 0.1 Nucleated Red Blood Cells # 0.1 H Magnesium Level 1.0 L Sodium Level 141 Potassium Level 3.5 Chloride Level 109 Carbon Dioxide Level 22 Anion Gap 14 Blood Urea Nitrogen 49 H Creatinine 1.24 Glucose Level 88 Calcium Level 6.3 L Total Bilirubin 0.2 Direct Bilirubin 0.00 Indirect Bilirubin 0.2 Aspartate Amino Transf (AST/SGOT) 40 Alanine Aminotransferase (ALT/SGPT) 41 Alkaline Phosphatase 141 H Total Protein 4.9 L Albumin 2.0 L Globulin 2.90 Albumin/Globulin Ratio 0.68 Bedside Glucose 98 Medications Medications Current Medications Naloxone HCl (Narcan) 0.4 mg Q3M PRN IV DECREASED REPIRATORY RATE; Start at 10:30 Ondansetron HCl (Zofran Inj) 4 mg Q6H PRN IV NAUSEA AND/OR VOMITING; Start 01/12 at 10:30 Nitroglycerin (Nitroglycerin (Sl Tab) 0.4 Mg) 1 tab Q5M PRN SL CHEST PAIN; Start 06/06/16 at 10:30 Acetaminophen (Tylenol Liquid) 650 mg Q6H PRN PO PAIN LEVEL 1-3 OR FEVER Last administered on 06/29/16 12:50; Admin Dose 650 MG; Start 06/06/16 at 10:30 Morphine Sulfate (morphine) 2 mg Q4H PRN IV PAIN LEVEL 7-10 Last administered on 06/15/16 00:22; Admin Dose 2 MG; Start 06/06/16 at 10:30 Docusate Sodium (Colace) 100 mg Q12H PRN PO CONSTIPATION; Start 06/06/16 at 10: 30 Magnesium Hydroxide (Milk Of Mag) 30 ml DAILY PRN PO CONSTIPATION; Start at 10:30 Bisacodyl (Dulcolax) 5 mg DAILY PRN PO CONSTIPATION; Start 06/06/16 at 10:30 Pantoprazole (Protonix Iv) 40 mg DAILY@06 IV Last administered on 07/03/16 06: 20; Admin Dose 40 MG; Start 06/07/16 at 06:00 Enoxaparin Sodium (Lovenox) 40 mg DAILY SC Last administered on 07/03/16 09:12 ; Admin Dose 40 MG; Start 06/07/16 at 09:00 Collagenase (Santyl) 1 applic DAILY TOP Last administered on 07/03/16 09:08; Admin Dose 1 APPLIC; Start 06/07/16 at 09:00 Collagenase (Santyl) 1 applic PRN PRN TOP WOUND CARE; Start 06/06/16 at 16:00 IV Flush (NS 10 ml) 10 ml PRN PRN IV IV PROTOCOL; Start 06/06/16 at 18:30 Ascorbic Acid (Vitamin C) 500 mg DAILY GTB Last administered on 07/03/16 09:12 ; Admin Dose 500 MG; Start 06/07/16 at 09:00 Aspirin (Aspirin) 325 mg DAILY GTB Last administered on 07/03/16 09:08; Admin Dose 325 MG; Start 06/07/16 at 09:00 Multivitamins (Thera-Plus) 5 ml DAILY GTB Last administered on 07/03/16 09:05; Admin Dose 5 ML; Start 06/07/16 at 09:00 Tamsulosin HCl (Flomax) 0.4 mg HS PO Last administered on 07/02/16 22:11; Admin Dose 0.4 MG; Start 06/07/16 at 21:00 Mupirocin (Bactroban) 1 applic BID TOP Last administered on 07/03/16 09:08; Admin Dose 1 APPLIC; Start 06/07/16 at 21:00 Metoclopramide HCl (Reglan) 10 mg Q6H PRN IV NAUSEA AND/OR VOMITING Last administered on 06/08/16 18:00; Admin Dose 10 MG; Start 06/08/16 at 09:30 Lorazepam (Ativan) 1 mg Q6H PRN IV AGITATION/ANXIETY Last administered on 12:34; Admin Dose 1 MG; Start 06/09/16 at 13:30 Diagnostic Test (Pha) (Accu-Chek) 1 ea Q6 XX Last administered on 07/03/16 12: 05; Admin Dose 1 EA; Start 06/25/16 at 18:00 Midodrine (Proamatine) 5 mg TID@,,17 GTB Last administered on 07/03/16 09: 45; Admin Dose 5 MG; Start 06/25/16 at 17:00 Citric Acid/ Sodium Citrate 30 ml 30 ml BID PO Last administered on 07/03/16 09 :05; Admin Dose 30 ML; Start 06/26/16 at 21:00 Sodium Chloride (NS) 1,000 ml @ 125 mls/hr Q8H IV Last administered on 22:12; Admin Dose 125 MLS/HR; Start 06/29/16 at 15:30 Potassium Chloride (Potassium Chloride Pwd/Soln) 40 meq DAILY GTB Last administered on 07/03/16 09:08; Admin Dose 40 MEQ; Start 06/30/16 at 10:30 Atenolol 12.5 mg 12.5 mg BID PO Last administered on 07/02/16 22:12; Admin Dose 12.5 MG; Start 06/30/16 at 23:00 Magnesium Sulfate (Magnesium Sulfate 4 Gm/100 ml) 100 ml @ 25 mls/hr ONCE IVPB ; Start 07/03/16 at 12:00; Stop 07/03/16 at 15:59 JAYA GORE July 03, 2016 12:16
[2016-07-03] MEDS ORDERED: BARIUM SULF 2% 450 ML BTL (BERRY SMOOTHIE) PO ONE ×2 (13:30→14:30)
[2016-07-03] MEDS: metroNIDAZOLE 500 MG/NS (PMX) 100 ML IVPB SCH ×2 (14:39→21:34)
--- NOTE | 2016-07-03 17:37 | PN ---
DATE: 07/03/2016 SUBJECTIVE: No acute changes. No fevers. The patient is nonverbal, noncommunicative, opens eyes, grimacing. Does not follow commands. WBC today 18.6 with platelets 317, BUN 49, creatinine 1.24. MICROBIOLOGY: Blood culture on 06/30/2016 negative. Urine culture negative. Endotracheal aspirate grew Acinetobacter baumannii and Klebsiella pneumoniae. INDWELLINGS: Trach, PEG, Alfonso, PICC line, rectal tube. PHYSICAL EXAMINATION: GENERAL: This is a fragile, chronically ill-appearing, elderly man who is in no distress. HEENT: Head atraumatic, normocephalic. Sclerae anicteric. Buccal mucosa dry. NECK: Supple. Tracheostomy present. CHEST: Rise symmetrical. Breath sounds diminished to bases. HEART: S1, S2. ABDOMEN: Soft. Bowel tones hypoactive. EXTREMITIES: With trace edema. ASSESSMENT: 1. Systemic inflammatory response syndrome with persistent leukocytosis, possible Clostridium difficile colitis given persistent diarrhea and long-term intravenous antibiotics. 2. Chronic respiratory failure, status post pneumonia, with endotracheal aspirate growing multi-drug resistant organisms, on colistin inhalation. 3. Status post intra-abdominal abscess drainage. 4. Sacral decubitus. 5. Atrial fibrillation. 6. Acute on chronic anemia. 7. Status post methicillin-resistant Staphylococcus aureus bacteremia and urinary tract infection on admission. PLAN: The patient remains clinically unchanged with worsening leukocytosis. He is being followed by multiple consultants. No fevers. He is status post vancomycin and Zosyn that was restarted for 3 days and now discontinued. He is on colistin inhalation. We are going to repeat CT of the abdomen and pelvis and chest, start empiric Flagyl for diarrhea. Dictated By: JOSE G CUNNINGHAM RN DIABETES EDUCATOR for RASHIDA CAMPBELL MD NI/NTS Conf#: [id number] DID#: [id number] MTDD
[2016-07-03] MEDS: TAMSULOSIN (SR) 0.4 MG CAP PO SCH (20:42)
--- NOTE | 2016-07-03 21:38 | RADRPT ---
PROCEDURE: CT Chest, Abdomen and Pelvis without contrast. CLINICAL INDICATION: Peritonitis. TECHNIQUE: CT scan of the chest, abdomen and pelvis was performed on a multidetector CT scanner. No intravenous contrast material was utilized. Coronal and sagittal reformatted images were obtaine d from the axial source images. Images were reviewed on a high-resolution PACS workstation. Exam CT Dlvol = 18 mGy and DLP = 1452 mGy-cm. One of the following 3 dose reduction techniques were used: A utomated exposure control; adjustment of the mA and/or kV according to patient size; or use of itera tive reconstruction technique. COMPARISON: CT pelvis 06/10/2016, CT chest 07/02/2016 FINDINGS: CT Chest: Tracheostomy tube tip is above the letty. Right subclavian pacemaker is present. Heart is mildly enlarged.. There is no pericardial fluid or effusion. Pulmonary arteries are mildly engorged linden tible with a component of pulmonary vascular congestion.. The thoracic aorta is normal caliber with out aneurysm. Atherosclerotic calcification aortic knob and coronary arteries are present. There is no mediastinal or hilar lymphadenopathy or mass. There is small bilateral pleural effusions with associated bibasilar atelectasis. Mild left upper l obe probable atelectasis or scarring. There is no pneumothorax. There are diffuse degenerative changes of the thoracic spine.. There are no fractures. CT abdomen/pelvis: Evaluation of the bowel and mesentery is limited by lack of oral and IV contrast material. There is a small amount of diffuse ascites throughout the abdomen and pelvis. There is mild mesenteric infil tration. There is no definite focal collection to suggest a discrete abscess. The previously demons trated left lower quadrant/pelvic fluid collection is not distinctly visualized. Gastrostomy tube ti p is in the stomach. There is no obstruction or ileus. The appendix is not identified.. There is s igmoid colon diverticulosis without evidence for diverticulitis. Apparent rectal drain is present. The liver is overall normal in size. No intrahepatic lesions are identified. The gallbladder is con tracted and contains multiple gallstones.. There is no definite biliary ductal dilation. Pancreas i s partially fatty replaced.. The spleen is unremarkable.. There are no adrenal masses. Kidneys ar e normal in appearance without hydronephrosis, mass or calculus. Ureters are of normal caliber. Fo kayleen catheter is present within the contracted urinary bladder. There is possible scrotal hydroceles. A left scrotal calcification is present.. The aorta is normal caliber. Diffuse atherosclerotic v ascular calcifications are present.. There are diffuse degenerative changes of the lumbar spine. IMPRESSION: 1. Mild diffuse abdominal and pelvic free fluid with mild mesenteric infiltration. Amount of free fluid is increased as compared to prior study. 2. Previously demonstrated left lower quadrant/pelvic fluid collection is no longer identified. No focal collection/abscess is identified. 3. No obstruction or ileus. Gastrostomy tube tip in the stomach. 4. Endotracheal tube tip above letty. 5. Mild pulmonary vascular congestion. 6. Small bilateral pleural effusions with bibasilar atelectasis. Left upper lobe atelectasis versu s scarring. 7. Cholelithiasis with contracted gallbladder. 8. Alfonso catheter within contracted urinary bladder. No obstructive uropathy. 9. Probable bilateral scrotal hydroceles. Left scrotal calcification. 10. Diffuse degenerative changes of the thoracic and lumbar spine. RPTAT: HMVK .Juan Diego Silva MD, MD Date Time Electronically viewed and signed by .Juan Diego Silva MD, MD on 07/03/2016 21:37 .K/
--- NOTE | 2016-07-03 23:17 | PN ---
Date/Time of Note Date/Time of Note DATE: 07/03/16 TIME: 23:16 Assessment/Plan VTE Prophylaxis VTE Prophylaxis Intervention: other Lines/Catheters IV Catheter Type (from Nrsg): PICC Line Central line still needed: Yes Urinary Cath still in place: Yes Reason Cath still needed: other (indicate) Assessment/Plan Chief Complaint/Hosp Course IMPRESSION: 1. Sepsis 2. Pneumonia. aspiration 3. Leukocytosis. 4. Hematuria. better 5. Lactic acidosis. better 6. Respiratory failure. 7. Gastrostomy tube placement. 8. Anemia. 9. Atrial fibrillation. 10. History of congestive heart failure with decreased ejection fraction. 11. vdrf 12. History of paroxysmal atrial fibrillation. 13. The patient now has decubitus. 14 uti 15 polymirobial sepsis 16 pul edema BETTER 17 no gi bleed 18 hypokalemia 19 diarrhea cdiff neg plan per id iv fluid poor prognosis KCL weaning per pulmonary and cardio surgery consult GT FEEDING per iD bicitra snf when stable poor prognosis Problems: Subjective 24 Hr Interval Summary Subjective hx not possible: other (ct abd seen) Exam/Review of Systems Vital Signs Vitals Vital Signs Date Time Temp Pulse Resp B/P Pulse Ox O2 Delivery O2 Flow Rate FiO2 07/03/16 21:06 81 27 100 30 07/03/16 20:00 98.6 130/60 Intake and Output 07/02/16 07/02/16 07/03/16 15:00 23:00 07:00 Intake Total 850 ml Output Total 250 ml 1200 ml Balance -250 ml -350 ml Exam ENMT: nl external ears & nose Neck: supple Respiratory: clear to auscultation Cardiovascular: regular rate and rhythm Gastrointestinal: soft Results Result Diagram: 07/03/16 0620 07/03/16 0625 Results 24 hrs Laboratory Tests Test 07/03/16 00:38 07/03/16 06:19 07/03/16 06:20 07/03/16 06:25 Bedside Glucose 121 119 White Blood Count 18.6 H Red Blood Count 3.22 L Hemoglobin 9.4 L Hematocrit 29.4 L Mean Corpuscular Volume 91.3 Mean Corpuscular Hemoglobin 29.2 Mean Corpuscular Hemoglobin Concent 32.0 Red Cell Distribution Width 18.2 H Platelet Count 317 # Mean Platelet Volume 12.0 H Neutrophils % 49.6 Lymphocytes % 14.3 L Monocytes % 11.1 H Eosinophils % 3.3 Basophils % 0.3 Nucleated Red Blood Cells % 0.3 H Neutrophils # 9.2 H Lymphocytes # 2.7 Monocytes # 2.1 H Eosinophils # 0.6 H Basophils # 0.1 Nucleated Red Blood Cells # 0.1 H Magnesium Level 1.0 L Sodium Level 141 Potassium Level 3.5 Chloride Level 109 Carbon Dioxide Level 22 Anion Gap 14 Blood Urea Nitrogen 49 H Creatinine 1.24 Glucose Level 88 Calcium Level 6.3 L Total Bilirubin 0.2 Direct Bilirubin 0.00 Indirect Bilirubin 0.2 Aspartate Amino Transf (AST/SGOT) 40 Alanine Aminotransferase (ALT/SGPT) 41 Alkaline Phosphatase 141 H Total Protein 4.9 L Albumin 2.0 L Globulin 2.90 Albumin/Globulin Ratio 0.68 Test 07/03/16 12:00 07/03/16 18:00 Bedside Glucose 98 100 Medications Medications Current Medications Naloxone HCl (Narcan) 0.4 mg Q3M PRN IV DECREASED REPIRATORY RATE; Start at 10:30 Ondansetron HCl (Zofran Inj) 4 mg Q6H PRN IV NAUSEA AND/OR VOMITING; Start 01/12 at 10:30 Nitroglycerin (Nitroglycerin (Sl Tab) 0.4 Mg) 1 tab Q5M PRN SL CHEST PAIN; Start 06/06/16 at 10:30 Acetaminophen (Tylenol Liquid) 650 mg Q6H PRN PO PAIN LEVEL 1-3 OR FEVER Last administered on 06/29/16 12:50; Admin Dose 650 MG; Start 06/06/16 at 10:30 Morphine Sulfate (morphine) 2 mg Q4H PRN IV PAIN LEVEL 7-10 Last administered on 06/15/16 00:22; Admin Dose 2 MG; Start 06/06/16 at 10:30 Docusate Sodium (Colace) 100 mg Q12H PRN PO CONSTIPATION; Start 06/06/16 at 10: 30 Magnesium Hydroxide (Milk Of Mag) 30 ml DAILY PRN PO CONSTIPATION; Start at 10:30 Bisacodyl (Dulcolax) 5 mg DAILY PRN PO CONSTIPATION; Start 06/06/16 at 10:30 Pantoprazole (Protonix Iv) 40 mg DAILY@06 IV Last administered on 07/03/16 06: 20; Admin Dose 40 MG; Start 06/07/16 at 06:00 Enoxaparin Sodium (Lovenox) 40 mg DAILY SC Last administered on 07/03/16 09:12 ; Admin Dose 40 MG; Start 06/07/16 at 09:00 Collagenase (Santyl) 1 applic DAILY TOP Last administered on 07/03/16 09:08; Admin Dose 1 APPLIC; Start 06/07/16 at 09:00 Collagenase (Santyl) 1 applic PRN PRN TOP WOUND CARE; Start 06/06/16 at 16:00 IV Flush (NS 10 ml) 10 ml PRN PRN IV IV PROTOCOL; Start 06/06/16 at 18:30 Ascorbic Acid (Vitamin C) 500 mg DAILY GTB Last administered on 07/03/16 09:12 ; Admin Dose 500 MG; Start 06/07/16 at 09:00 Aspirin (Aspirin) 325 mg DAILY GTB Last administered on 07/03/16 09:08; Admin Dose 325 MG; Start 06/07/16 at 09:00 Multivitamins (Thera-Plus) 5 ml DAILY GTB Last administered on 07/03/16 09:05; Admin Dose 5 ML; Start 06/07/16 at 09:00 Tamsulosin HCl (Flomax) 0.4 mg HS PO Last administered on 07/03/16 20:42; Admin Dose 0.4 MG; Start 06/07/16 at 21:00 Mupirocin (Bactroban) 1 applic BID TOP Last administered on 07/03/16 20:43; Admin Dose 1 APPLIC; Start 06/07/16 at 21:00 Metoclopramide HCl (Reglan) 10 mg Q6H PRN IV NAUSEA AND/OR VOMITING Last administered on 06/08/16 18:00; Admin Dose 10 MG; Start 06/08/16 at 09:30 Lorazepam (Ativan) 1 mg Q6H PRN IV AGITATION/ANXIETY Last administered on 12:34; Admin Dose 1 MG; Start 06/09/16 at 13:30 Diagnostic Test (Pha) (Accu-Chek) 1 ea Q6 XX Last administered on 07/03/16 12: 05; Admin Dose 1 EA; Start 06/25/16 at 18:00 Midodrine (Proamatine) 5 mg TID@ GTB Last administered on 07/03/16 17: 56; Admin Dose 5 MG; Start 06/25/16 at 17:00 Citric Acid/ Sodium Citrate 30 ml 30 ml BID PO Last administered on 07/03/16 21 :33; Admin Dose 30 ML; Start 06/26/16 at 21:00 Sodium Chloride (NS) 1,000 ml @ 125 mls/hr Q8H IV Last administered on 18:00; Admin Dose 125 MLS/HR; Start 06/29/16 at 15:30 Potassium Chloride (Potassium Chloride Pwd/Soln) 40 meq DAILY GTB Last administered on 07/03/16 09:08; Admin Dose 40 MEQ; Start 06/30/16 at 10:30 Atenolol 12.5 mg 12.5 mg BID PO Last administered on 07/03/16 20:42; Admin Dose 12.5 MG; Start 06/30/16 at 23:00 Metronidazole (Flagyl 500 Mg (Pmx)) 100 ml @ 100 mls/hr Q8 IVPB Last administered on 07/03/16 21:34; Admin Dose 100 MLS/HR; Start 07/03/16 at 14:00 HOLLI LINDER MD July 03, 2016 23:17
[2016-07-04] VITALS (25 sets, daily range): BP systolic 96–110; BP diastolic 50–76; PULSE 70–100; RESP 16–38
[2016-07-04] MEDS: ACCU-CHEK XX SCH ×4 (00:01→17:26)
[2016-07-04] MEDS: ALBUTEROL 18 GM INHALER INH SCH ×6 (01:18→20:37)
[2016-07-04] MEDS: IPRATROPIUM (HFA) 12.9 GM INHALER INH SCH ×6 (01:18→20:37)
[2016-07-04] MEDS: SOD CHLORIDE 0.9% 1,000 ML IV SCH ×4 (03:34→23:30)
[2016-07-04] MEDS: PANTOPRAZOLE 40 MG INJ IV SCH (06:00)
[2016-07-04] MEDS: metroNIDAZOLE 500 MG/NS (PMX) 100 ML IVPB SCH ×3 (06:00→21:22)
[2016-07-04] MEDS: CITRIC ACID/SODIUM CITRATE 15 ML CUP PO SCH ×2 (09:08→21:22)
[2016-07-04] MEDS: MULTIVITAMINS 5 ML CUP GTB SCH (09:08)
[2016-07-04] MEDS: MUPIROCIN 2% 22 GM OINT TOP SCH ×2 (09:08→21:22)
[2016-07-04] MEDS: COLLAGENASE 30 GM TUBE TOP SCH (09:08)
[2016-07-04] MEDS: POTASSIUM CHLORIDE 20 MEQ POWDER FOR ORAL SOLN GTB SCH (09:09)
[2016-07-04] MEDS: ASPIRIN 325 MG TAB GTB SCH (09:09)
--- NOTE | 2016-07-04 09:09 | CONS ---
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 Renal insuff-? overdiuresis - better now Consultation Date/Type/Reason Admit Date/Time Jun 06, 2016 at 08:08 Initial Consult Date 06/07/16 Type of Consultation: Cardiology Referring Provider: HOLLI LINDER MD 24 HR Interval Summary Free Text/Dictation NO acute events - BP in good range now - will monitor ROS: No fever, no chills, no nausea, no vomiting, no diarrhea/constipation No recent weight changes No chest pain, no PND, no orthopnea No dizziness, blurred vision No thirst, no heat or cold intolerance (per nurse) Exam/Review of Systems Vital Signs Vitals Vital Signs Date Time Temp Pulse Resp B/P Pulse Ox O2 Delivery O2 Flow Rate FiO2 07/04/16 08:00 98.7 83 18 107/56 100 07/04/16 07:52 30 Intake and Output 07/03/16 07/03/16 07/04/16 15:00 23:00 07:00 Intake Total 625 ml 1740 ml 2000 ml Output Total 1120 ml 900 ml Balance 625 ml 620 ml 1100 ml Exam General: WN/WD/NAD, AOx 0 HEENT: Unicetric/atraumatic/EOMI (does not follow commands), trach NECK: no thyromegaly Lymph: no lymphadenopathy HEART: regular with no S3, II/ systolic murmur at apex LUNGS: Coarse sounds ABD: soft, NT, ND, +BS : Intact Neuro: non focal SKIN: chronic changes EXT: trace edema Results Result Diagram: 07/03/16 0620 07/03/16 0625 Results 24 hrs Laboratory Tests Test 07/03/16 12:00 07/03/16 18:00 07/03/16 23:59 07/04/16 06:30 Bedside Glucose 98 100 94 110 Medications Medications Current Medications Naloxone HCl (Narcan) 0.4 mg Q3M PRN IV DECREASED REPIRATORY RATE; Start at 10:30 Ondansetron HCl (Zofran Inj) 4 mg Q6H PRN IV NAUSEA AND/OR VOMITING; Start 01/12 at 10:30 Nitroglycerin (Nitroglycerin (Sl Tab) 0.4 Mg) 1 tab Q5M PRN SL CHEST PAIN; Start 06/06/16 at 10:30 Acetaminophen (Tylenol Liquid) 650 mg Q6H PRN PO PAIN LEVEL 1-3 OR FEVER Last administered on 06/29/16 12:50; Admin Dose 650 MG; Start 06/06/16 at 10:30 Morphine Sulfate (morphine) 2 mg Q4H PRN IV PAIN LEVEL 7-10 Last administered on 06/15/16 00:22; Admin Dose 2 MG; Start 06/06/16 at 10:30 Docusate Sodium (Colace) 100 mg Q12H PRN PO CONSTIPATION; Start 06/06/16 at 10: 30 Magnesium Hydroxide (Milk Of Mag) 30 ml DAILY PRN PO CONSTIPATION; Start at 10:30 Bisacodyl (Dulcolax) 5 mg DAILY PRN PO CONSTIPATION; Start 06/06/16 at 10:30 Pantoprazole (Protonix Iv) 40 mg DAILY@06 IV Last administered on 07/04/16 06: 00; Admin Dose 40 MG; Start 06/07/16 at 06:00 Enoxaparin Sodium (Lovenox) 40 mg DAILY SC Last administered on 07/03/16 09:12 ; Admin Dose 40 MG; Start 06/07/16 at 09:00 Collagenase (Santyl) 1 applic DAILY TOP Last administered on 07/03/16 09:08; Admin Dose 1 APPLIC; Start 06/07/16 at 09:00 Collagenase (Santyl) 1 applic PRN PRN TOP WOUND CARE; Start 06/06/16 at 16:00 IV Flush (NS 10 ml) 10 ml PRN PRN IV IV PROTOCOL; Start 06/06/16 at 18:30 Ascorbic Acid (Vitamin C) 500 mg DAILY GTB Last administered on 07/03/16 09:12 ; Admin Dose 500 MG; Start 06/07/16 at 09:00 Aspirin (Aspirin) 325 mg DAILY GTB Last administered on 07/03/16 09:08; Admin Dose 325 MG; Start 06/07/16 at 09:00 Multivitamins (Thera-Plus) 5 ml DAILY GTB Last administered on 07/03/16 09:05; Admin Dose 5 ML; Start 06/07/16 at 09:00 Tamsulosin HCl (Flomax) 0.4 mg HS PO Last administered on 07/03/16 20:42; Admin Dose 0.4 MG; Start 06/07/16 at 21:00 Mupirocin (Bactroban) 1 applic BID TOP Last administered on 07/03/16 20:43; Admin Dose 1 APPLIC; Start 06/07/16 at 21:00 Metoclopramide HCl (Reglan) 10 mg Q6H PRN IV NAUSEA AND/OR VOMITING Last administered on 06/08/16 18:00; Admin Dose 10 MG; Start 06/08/16 at 09:30 Lorazepam (Ativan) 1 mg Q6H PRN IV AGITATION/ANXIETY Last administered on 12:34; Admin Dose 1 MG; Start 06/09/16 at 13:30 Diagnostic Test (Pha) (Accu-Chek) 1 ea Q6 XX Last administered on 07/04/16 06: 49; Admin Dose 1 EA; Start 06/25/16 at 18:00 Midodrine (Proamatine) 5 mg TID@,,17 GTB Last administered on 07/03/16 17: 56; Admin Dose 5 MG; Start 06/25/16 at 17:00 Citric Acid/ Sodium Citrate 30 ml 30 ml BID PO Last administered on 07/03/16 21 :33; Admin Dose 30 ML; Start 06/26/16 at 21:00 Sodium Chloride (NS) 1,000 ml @ 125 mls/hr Q8H IV Last administered on 03:34; Admin Dose 125 MLS/HR; Start 06/29/16 at 15:30 Potassium Chloride (Potassium Chloride Pwd/Soln) 40 meq DAILY GTB Last administered on 07/03/16 09:08; Admin Dose 40 MEQ; Start 06/30/16 at 10:30 Atenolol 12.5 mg 12.5 mg BID PO Last administered on 07/03/16 20:42; Admin Dose 12.5 MG; Start 06/30/16 at 23:00 Metronidazole (Flagyl 500 Mg (Pmx)) 100 ml @ 100 mls/hr Q8 IVPB Last administered on 07/04/16 06:00; Admin Dose 100 MLS/HR; Start 07/03/16 at 14:00 ZEUS CHAPPELL MD July 04, 2016 09:09
[2016-07-04] MEDS: ASCORBIC ACID 500 MG TAB GTB SCH (09:10)
[2016-07-04] MEDS: ATENOLOL 25 MG TAB PO SCH ×2 (09:10→21:00)
[2016-07-04] MEDS: MIDODRINE 5 MG TAB GTB SCH ×3 (09:11→17:34)
[2016-07-04] MEDS: ENOXAPARIN 40 MG/0.4 ML SYG SC SCH (09:12)
[2016-07-04] MEDS: COLISTIMETHATE (25 MG/ML INHAL SYG) NEB SCH ×2 (09:22→19:37)
--- NOTE | 2016-07-04 11:31 | PN ---
DATE: 07/04/2016 I had a conversation with the patient's milind care team with discharge planners and rehabilitation caseworker an d the patient's family has refused hospice after apparently speaking with hospice service here at [facility] and still want to pursue this current level of care. I will continue to support family members. Dictated By: HENRY GUPTA MD, LP/TRACY Conf#: [id number] DID#: [id number]
--- NOTE | 2016-07-04 11:49 | CONS ---
Date/Time of Note Date/Time of Note DATE: 07/04/16 TIME: 11:48 Consult Date/Type/Reason Admit Date/Time Jun 06, 2016 at 08:08 Initial Consult Date 06/07/16 Type of Consultation: pulmonary Ordering Provider: HOLLI LINDER MD Subjective No significant changes Objective Vital Signs Date Time Temp Pulse Resp B/P Pulse Ox O2 Delivery O2 Flow Rate FiO2 07/04/16 10:09 30 07/04/16 09:39 74 07/04/16 09:35 20 97 07/04/16 08:00 98.7 107/56 Intake and Output 07/03/16 07/03/16 07/04/16 15:00 23:00 07:00 Intake Total 625 ml 1740 ml 2000 ml Output Total 1120 ml 900 ml Balance 625 ml 620 ml 1100 ml Exam PHYSICAL EXAMINATION GENERAL: Elderly gentleman, on mechanical ventilation, VITAL SIGNS: see below. HEENT: Pupils equal, round, and reactive to light. Tracheostomy site clean and intact. CARDIAC: S1, S2, tachycardia. CHEST: Diminished air entry bilaterally. ABDOMEN: Mildly distended. Diminished bowel sounds no guarding or rebound EXTREMITIES: No cyanosis, clubbing edema +2 NEUROLOGIC: Generalized weakness Results/Medications Result Diagram: 07/03/16 0620 07/03/16 0625 Results 24 hrs Laboratory Tests Test 07/03/16 12:00 07/03/16 18:00 07/03/16 23:59 07/04/16 06:30 Bedside Glucose 98 100 94 110 Medications Current Medications Naloxone HCl (Narcan) 0.4 mg Q3M PRN IV DECREASED REPIRATORY RATE; Start at 10:30 Ondansetron HCl (Zofran Inj) 4 mg Q6H PRN IV NAUSEA AND/OR VOMITING; Start 01/12 at 10:30 Nitroglycerin (Nitroglycerin (Sl Tab) 0.4 Mg) 1 tab Q5M PRN SL CHEST PAIN; Start 06/06/16 at 10:30 Acetaminophen (Tylenol Liquid) 650 mg Q6H PRN PO PAIN LEVEL 1-3 OR FEVER Last administered on 06/29/16 12:50; Admin Dose 650 MG; Start 06/06/16 at 10:30 Morphine Sulfate (morphine) 2 mg Q4H PRN IV PAIN LEVEL 7-10 Last administered on 06/15/16 00:22; Admin Dose 2 MG; Start 06/06/16 at 10:30 Docusate Sodium (Colace) 100 mg Q12H PRN PO CONSTIPATION; Start 06/06/16 at 10: 30 Magnesium Hydroxide (Milk Of Mag) 30 ml DAILY PRN PO CONSTIPATION; Start at 10:30 Bisacodyl (Dulcolax) 5 mg DAILY PRN PO CONSTIPATION; Start 06/06/16 at 10:30 Pantoprazole (Protonix Iv) 40 mg DAILY@06 IV Last administered on 07/04/16 06: 00; Admin Dose 40 MG; Start 06/07/16 at 06:00 Enoxaparin Sodium (Lovenox) 40 mg DAILY SC Last administered on 07/04/16 09:12 ; Admin Dose 40 MG; Start 06/07/16 at 09:00 Collagenase (Santyl) 1 applic DAILY TOP Last administered on 07/04/16 09:08; Admin Dose 1 APPLIC; Start 06/07/16 at 09:00 Collagenase (Santyl) 1 applic PRN PRN TOP WOUND CARE; Start 06/06/16 at 16:00 IV Flush (NS 10 ml) 10 ml PRN PRN IV IV PROTOCOL; Start 06/06/16 at 18:30 Ascorbic Acid (Vitamin C) 500 mg DAILY GTB Last administered on 07/04/16 09:10 ; Admin Dose 500 MG; Start 06/07/16 at 09:00 Aspirin (Aspirin) 325 mg DAILY GTB Last administered on 07/04/16 09:09; Admin Dose 325 MG; Start 06/07/16 at 09:00 Multivitamins (Thera-Plus) 5 ml DAILY GTB Last administered on 07/04/16 09:08; Admin Dose 5 ML; Start 06/07/16 at 09:00 Tamsulosin HCl (Flomax) 0.4 mg HS PO Last administered on 07/03/16 20:42; Admin Dose 0.4 MG; Start 06/07/16 at 21:00 Mupirocin (Bactroban) 1 applic BID TOP Last administered on 07/04/16 09:08; Admin Dose 1 APPLIC; Start 06/07/16 at 21:00 Metoclopramide HCl (Reglan) 10 mg Q6H PRN IV NAUSEA AND/OR VOMITING Last administered on 06/08/16 18:00; Admin Dose 10 MG; Start 06/08/16 at 09:30 Lorazepam (Ativan) 1 mg Q6H PRN IV AGITATION/ANXIETY Last administered on 12:34; Admin Dose 1 MG; Start 06/09/16 at 13:30 Diagnostic Test (Pha) (Accu-Chek) 1 ea Q6 XX Last administered on 07/04/16 06: 49; Admin Dose 1 EA; Start 06/25/16 at 18:00 Midodrine (Proamatine) 5 mg TID@,,17 GTB Last administered on 07/04/16 09: 11; Admin Dose 5 MG; Start 06/25/16 at 17:00 Citric Acid/ Sodium Citrate 30 ml 30 ml BID PO Last administered on 07/04/16 09 :08; Admin Dose 30 ML; Start 06/26/16 at 21:00 Sodium Chloride (NS) 1,000 ml @ 125 mls/hr Q8H IV Last administered on 03:34; Admin Dose 125 MLS/HR; Start 06/29/16 at 15:30 Potassium Chloride (Potassium Chloride Pwd/Soln) 40 meq DAILY GTB Last administered on 07/04/16 09:09; Admin Dose 40 MEQ; Start 06/30/16 at 10:30 Atenolol 12.5 mg 12.5 mg BID PO Last administered on 07/04/16 09:10; Admin Dose 12.5 MG; Start 06/30/16 at 23:00 Metronidazole (Flagyl 500 Mg (Pmx)) 100 ml @ 100 mls/hr Q8 IVPB Last administered on 07/04/16 06:00; Admin Dose 100 MLS/HR; Start 07/03/16 at 14:00 Assessment/Plan Chief Complaint/Hosp Course Assessment 1. Vent dependent respiratory failure with evidence of healthcare associated pneumonia 2. Status post bowel perforation with drainage, persistent leukocytosis 3. Ongoing sepsis as above 4. Chronic atrial fibrillation 5. Decubitus ulcers 6. Dysphagia with G-tube 7. Anemia worsening no evidence of GI bleed Plan 1. Continue mechanical ventilation 2. Continue broad-spectrum antibiotics per infectious diseases 3. Surgical recommendations regarding abdominal drains 4. Palliative care consult appreciated 5. DVT and GI prophylaxis 6. Stable post transfusion Disposition Continue current care Consider palliative care consult consider hospice Problems: KAVON TROY MD, FCCP July 04, 2016 11:49
--- NOTE | 2016-07-04 12:09 | PN ---
DATE: 06/30/2016 FAMILY CONFERENCE Participants at this time was the patient's son. Reason for this family conference is that the simona ent still remains extremely moribund condition, PEG'd, trached, and no significant neurological impr ovement since he has been admitted here and was treated aggressively for respiratory failure and sep sis syndrome. That is my understanding of this patient's background information. Although the simona ent's son adamantly states that his father was communicative and had a high quality of care prior to this devastating hospital event and was not neurologically impaired at the time, was cognitively co mpletely functional and physically functional. Son still hopes that the patient will have an accept able quality of life when his father's improves further, and I have tried to convey to him that I be lieve that his father will not improve significantly, both from a physical standpoint and a cognitiv e standpoint. The patient's son has no past experience with similar episodes with any family member s. Examination of this gentleman has not changed over a period of time, he still remains extremely moribund. Does not respond to any simple commands, does not move purposefully at all, does not trac k me, although there are no focal cranial nerve findings on examination, he is essentially vegetativ e. His estimated prognosis and palliative performance scale is 30%, and I believe that is generous at t his time. My recommendations to the son were to proceed with more compassionate care at this time i n keeping his father just comfortable. This patient is a CHEMICAL CODE ONLY, and I do not believe t here are any pain management issues at this time. I do not believe there are social issues, psychos ocial issues, or spiritual issues to be addressed. Ethical issues and legal issues have been addres sed with son, and he is the decision maker. There is another brother who is not involved with the d ecision making. The patient's code status once again is CHEMICAL CODE. Once again, I think the MARC [facility] should be addressed prior to this patient being discharged back to a subacute facility. My impre ssions are that the patient's son will eventually change his father's code status to just COMFORT ME ASURES. Dictated By: HENRY GUPTA MD, LP/TRACY Conf#: [id number] [facility]#: [id number]
--- NOTE | 2016-07-04 14:08 | CONS ---
Date/Time of Note Date/Time of Note DATE: 07/04/16 TIME: 14:06 Assessment/Plan Assessment/Plan Chief Complaint/Hosp Course SUBJECTIVE: No acute changes. No fevers. The patient is nonverbal, noncommunicative, opens eyes, grimacing. Does not follow commands. MICROBIOLOGY: Blood culture on 06/30/2016 negative. Urine culture negative. Endotracheal aspirate grew Acinetobacter baumannii and Klebsiella pneumoniae. INDWELLINGS: Trach, PEG, Alfonso, PICC line, rectal tube. Abx: Flagyl, Colistin INH PHYSICAL EXAMINATION: GENERAL: This is a fragile, chronically ill-appearing, elderly man who is in no distress. HEENT: Head atraumatic, normocephalic. Sclerae anicteric. Buccal mucosa dry. NECK: Supple. Tracheostomy present. CHEST: Rise symmetrical. Breath sounds diminished to bases. HEART: S1, S2. ABDOMEN: Soft. Bowel tones hypoactive. EXTREMITIES: With trace edema. ASSESSMENT: 1. Systemic inflammatory response syndrome with persistent leukocytosis, possible Clostridium difficile colitis given persistent diarrhea and long-term intravenous antibiotics. 2. Chronic respiratory failure, status post pneumonia, with endotracheal aspirate growing multi-drug resistant organisms, on colistin inhalation. 3. Status post intra-abdominal abscess drainage. 4. Sacral decubitus. 5. Atrial fibrillation. 6. Acute on chronic anemia. 7. Status post methicillin-resistant Staphylococcus aureus bacteremia and urinary tract infection on admission. PLAN: The patient remains clinically unchanged, CT abd/chest noted, continue present care DW staff Problems: Consultation Date/Type/Reason Admit Date/Time Jun 06, 2016 at 08:08 Initial Consult Date 06/07/16 Type of Consultation: ID Referring Provider: HOLLI LINDER MD Exam/Review of Systems Vital Signs Vitals Vital Signs Date Time Temp Pulse Resp B/P Pulse Ox O2 Delivery O2 Flow Rate FiO2 07/04/16 13:58 100 07/04/16 13:17 22 98 30 07/04/16 12:01 98.6 110/61 Intake and Output 07/03/16 07/03/16 07/04/16 15:00 23:00 07:00 Intake Total 625 ml 1740 ml 2000 ml Output Total 1120 ml 900 ml Balance 625 ml 620 ml 1100 ml Results Result Diagram: 07/03/16 0620 07/03/16 0625 Results 24 hrs Laboratory Tests Test 07/03/16 18:00 07/03/16 23:59 07/04/16 06:30 07/04/16 11:43 Bedside Glucose 100 94 110 122 Medications Medications Current Medications Naloxone HCl (Narcan) 0.4 mg Q3M PRN IV DECREASED REPIRATORY RATE; Start at 10:30 Ondansetron HCl (Zofran Inj) 4 mg Q6H PRN IV NAUSEA AND/OR VOMITING; Start 01/12 at 10:30 Nitroglycerin (Nitroglycerin (Sl Tab) 0.4 Mg) 1 tab Q5M PRN SL CHEST PAIN; Start 06/06/16 at 10:30 Acetaminophen (Tylenol Liquid) 650 mg Q6H PRN PO PAIN LEVEL 1-3 OR FEVER Last administered on 06/29/16 12:50; Admin Dose 650 MG; Start 06/06/16 at 10:30 Morphine Sulfate (morphine) 2 mg Q4H PRN IV PAIN LEVEL 7-10 Last administered on 06/15/16 00:22; Admin Dose 2 MG; Start 06/06/16 at 10:30 Docusate Sodium (Colace) 100 mg Q12H PRN PO CONSTIPATION; Start 06/06/16 at 10: 30 Magnesium Hydroxide (Milk Of Mag) 30 ml DAILY PRN PO CONSTIPATION; Start at 10:30 Bisacodyl (Dulcolax) 5 mg DAILY PRN PO CONSTIPATION; Start 06/06/16 at 10:30 Pantoprazole (Protonix Iv) 40 mg DAILY@06 IV Last administered on 07/04/16 06: 00; Admin Dose 40 MG; Start 06/07/16 at 06:00 Enoxaparin Sodium (Lovenox) 40 mg DAILY SC Last administered on 07/04/16 09:12 ; Admin Dose 40 MG; Start 06/07/16 at 09:00 Collagenase (Santyl) 1 applic DAILY TOP Last administered on 07/04/16 09:08; Admin Dose 1 APPLIC; Start 06/07/16 at 09:00 Collagenase (Santyl) 1 applic PRN PRN TOP WOUND CARE; Start 06/06/16 at 16:00 IV Flush (NS 10 ml) 10 ml PRN PRN IV IV PROTOCOL; Start 06/06/16 at 18:30 Ascorbic Acid (Vitamin C) 500 mg DAILY GTB Last administered on 07/04/16 09:10 ; Admin Dose 500 MG; Start 06/07/16 at 09:00 Aspirin (Aspirin) 325 mg DAILY GTB Last administered on 07/04/16 09:09; Admin Dose 325 MG; Start 06/07/16 at 09:00 Multivitamins (Thera-Plus) 5 ml DAILY GTB Last administered on 07/04/16 09:08; Admin Dose 5 ML; Start 06/07/16 at 09:00 Tamsulosin HCl (Flomax) 0.4 mg HS PO Last administered on 07/03/16 20:42; Admin Dose 0.4 MG; Start 06/07/16 at 21:00 Mupirocin (Bactroban) 1 applic BID TOP Last administered on 07/04/16 09:08; Admin Dose 1 APPLIC; Start 06/07/16 at 21:00 Metoclopramide HCl (Reglan) 10 mg Q6H PRN IV NAUSEA AND/OR VOMITING Last administered on 06/08/16 18:00; Admin Dose 10 MG; Start 06/08/16 at 09:30 Lorazepam (Ativan) 1 mg Q6H PRN IV AGITATION/ANXIETY Last administered on 12:34; Admin Dose 1 MG; Start 06/09/16 at 13:30 Diagnostic Test (Pha) (Accu-Chek) 1 ea Q6 XX Last administered on 07/04/16 06: 49; Admin Dose 1 EA; Start 06/25/16 at 18:00 Midodrine (Proamatine) 5 mg TID@,,17 GTB Last administered on 07/04/16 13: 24; Admin Dose 5 MG; Start 06/25/16 at 17:00 Citric Acid/ Sodium Citrate 30 ml 30 ml BID PO Last administered on 07/04/16 09 :08; Admin Dose 30 ML; Start 06/26/16 at 21:00 Sodium Chloride (NS) 1,000 ml @ 125 mls/hr Q8H IV Last administered on 13:22; Admin Dose 125 MLS/HR; Start 06/29/16 at 15:30 Potassium Chloride (Potassium Chloride Pwd/Soln) 40 meq DAILY GTB Last administered on 07/04/16 09:09; Admin Dose 40 MEQ; Start 06/30/16 at 10:30 Atenolol 12.5 mg 12.5 mg BID PO Last administered on 07/04/16 09:10; Admin Dose 12.5 MG; Start 06/30/16 at 23:00 Metronidazole (Flagyl 500 Mg (Pmx)) 100 ml @ 100 mls/hr Q8 IVPB Last administered on 07/04/16 13:24; Admin Dose 100 MLS/HR; Start 07/03/16 at 14:00 JOSE G CUNNINGHAM NP July 04, 2016 14:08
--- NOTE | 2016-07-04 18:52 | PN ---
Date/Time of Note Date/Time of Note DATE: 07/04/16 TIME: 18:50 Assessment/Plan Lines/Catheters IV Catheter Type (from [facility]): PICC Line Alfonso in Place (from [facility]): Yes Assessment/Plan Chief Complaint/Hosp Course 1. Contained perforated viscous s/p IR drain 06/11. Cx noted. Leukocytosis resolved. Tube feeds. Bowel function. Drain dcd. s/p Abx. Persistent leukocytosis. Chemical code. -defer further w/u to primary team 2. Pneumonia -pulmonary toilette -abx 3. Sepsis, recent. Leukocytosis worsening again. -abx -as above 4. Sacral decubitus ulcer -off load -nutrition optimization -vit c -local care 5. Chronic AFib -rate control -optimize electrolytes -tx infections 6. Anemia, dropped again -? source -? tx 7. Hypoalbuminemia -eventual nutritional optimization 8. CHF -judicious fluid management -cardiac optimization Thank you, Problems: Subjective 24 Hr Interval Summary Chemical code now. Leukocytosis. No f/c. No cough. No sz. No rashes. No bloating. No vomiting. No bleeding. TFs. Bowel function. Exam/Review of Systems Vital Signs Vitals Vital Signs Date Time Temp Pulse Resp B/P Pulse Ox O2 Delivery O2 Flow Rate FiO2 07/04/16 17:33 84 07/04/16 17:23 21 98 30 07/04/16 15:50 98.7 105/67 Intake and Output 07/03/16 07/03/16 07/04/16 15:00 23:00 07:00 Intake Total 625 ml 1740 ml 2000 ml Output Total 1120 ml 900 ml Balance 625 ml 620 ml 1100 ml Exam Free Text/Dictation Constitutional: No distress, No oriented Psych: confusion, No anxiety Head: atraumatic, normocephalic Eyes: PERRL, nl conjunctiva, No icteric ENMT: mucosa pink and moist, nl external ears & nose, nl lips & teeth Neck: jvd (min), non-tender Respiratory: No congested cough, No labored breathing Cardiovascular: No edema, No regular rate and rhythm Gastrointestinal: soft, PEGNo distended, No firm, No rebound or guarding Musculoskeletal: No joint tenderness, No nl gait and stance Extremities: No calf tenderness, No cyanosis Neurological: No nl mental status, No nl speech, No nl strength Skin: nl turgor, rash or lesions (Sacral and LE decubitus ulcerations), No diaphoresis Lymph: nl lymph nodes Results Result Diagram: 07/03/16 0620 07/03/16 0625 DAREK AHMADI MD July 04, 2016 18:52
[2016-07-04] MEDS: TAMSULOSIN (SR) 0.4 MG CAP PO SCH (21:22)
--- NOTE | 2016-07-04 21:32 | PN ---
Date/Time of Note Date/Time of Note DATE: 07/04/16 TIME: 21:31 Assessment/Plan VTE Prophylaxis VTE Prophylaxis Intervention: other Lines/Catheters IV Catheter Type (from Nrsg): PICC Line Central line still needed: Yes Urinary Cath still in place: Yes Reason Cath still needed: other (indicate) Assessment/Plan Chief Complaint/Hosp Course IMPRESSION: 1. Sepsis 2. Pneumonia. aspiration 3. Leukocytosis. 4. Hematuria. better 5. Lactic acidosis. better 6. Respiratory failure. 7. Gastrostomy tube placement. 8. Anemia. 9. Atrial fibrillation. 10. History of congestive heart failure with decreased ejection fraction. 11. vdrf 12. History of paroxysmal atrial fibrillation. 13. The patient now has decubitus. 14 uti 15 polymirobial sepsis 16 pul edema BETTER 17 no gi bleed 18 hypokalemia better 19 diarrhea cdiff neg plan per id iv fluid poor prognosis ck labs weaning per pulmonary and cardio surgery consult GT FEEDING per iD bicitra snf when stable poor prognosis Problems: Subjective 24 Hr Interval Summary Subjective hx not possible: other (no change) Exam/Review of Systems Vital Signs Vitals Vital Signs Date Time Temp Pulse Resp B/P Pulse Ox O2 Delivery O2 Flow Rate FiO2 07/04/16 20:56 89 34 98 30 07/04/16 20:31 98.0 96/65 Intake and Output 07/03/16 07/03/16 07/04/16 15:00 23:00 07:00 Intake Total 625 ml 1740 ml 2000 ml Output Total 1120 ml 900 ml Balance 625 ml 620 ml 1100 ml Exam Neck: supple Respiratory: diminished breath sounds Cardiovascular: regular rate and rhythm Gastrointestinal: bowel sounds (+), soft Extremities: edema (tr) Results Result Diagram: 07/03/16 0620 07/03/16 0625 Results 24 hrs Laboratory Tests Test 07/03/16 23:59 07/04/16 06:30 07/04/16 11:43 07/04/16 17:33 Bedside Glucose 94 110 122 114 Medications Medications Current Medications Naloxone HCl (Narcan) 0.4 mg Q3M PRN IV DECREASED REPIRATORY RATE; Start at 10:30 Ondansetron HCl (Zofran Inj) 4 mg Q6H PRN IV NAUSEA AND/OR VOMITING; Start 01/12 at 10:30 Nitroglycerin (Nitroglycerin (Sl Tab) 0.4 Mg) 1 tab Q5M PRN SL CHEST PAIN; Start 06/06/16 at 10:30 Acetaminophen (Tylenol Liquid) 650 mg Q6H PRN PO PAIN LEVEL 1-3 OR FEVER Last administered on 06/29/16 12:50; Admin Dose 650 MG; Start 06/06/16 at 10:30 Morphine Sulfate (morphine) 2 mg Q4H PRN IV PAIN LEVEL 7-10 Last administered on 06/15/16 00:22; Admin Dose 2 MG; Start 06/06/16 at 10:30 Docusate Sodium (Colace) 100 mg Q12H PRN PO CONSTIPATION; Start 06/06/16 at 10: 30 Magnesium Hydroxide (Milk Of Mag) 30 ml DAILY PRN PO CONSTIPATION; Start at 10:30 Bisacodyl (Dulcolax) 5 mg DAILY PRN PO CONSTIPATION; Start 06/06/16 at 10:30 Pantoprazole (Protonix Iv) 40 mg DAILY@06 IV Last administered on 07/04/16 06: 00; Admin Dose 40 MG; Start 06/07/16 at 06:00 Enoxaparin Sodium (Lovenox) 40 mg DAILY SC Last administered on 07/04/16 09:12 ; Admin Dose 40 MG; Start 06/07/16 at 09:00 Collagenase (Santyl) 1 applic DAILY TOP Last administered on 07/04/16 09:08; Admin Dose 1 APPLIC; Start 06/07/16 at 09:00 Collagenase (Santyl) 1 applic PRN PRN TOP WOUND CARE; Start 06/06/16 at 16:00 IV Flush (NS 10 ml) 10 ml PRN PRN IV IV PROTOCOL; Start 06/06/16 at 18:30 Ascorbic Acid (Vitamin C) 500 mg DAILY GTB Last administered on 07/04/16 09:10 ; Admin Dose 500 MG; Start 06/07/16 at 09:00 Aspirin (Aspirin) 325 mg DAILY GTB Last administered on 07/04/16 09:09; Admin Dose 325 MG; Start 06/07/16 at 09:00 Multivitamins (Thera-Plus) 5 ml DAILY GTB Last administered on 07/04/16 09:08; Admin Dose 5 ML; Start 06/07/16 at 09:00 Tamsulosin HCl (Flomax) 0.4 mg HS PO Last administered on 07/04/16 21:22; Admin Dose 0.4 MG; Start 06/07/16 at 21:00 Mupirocin (Bactroban) 1 applic BID TOP Last administered on 07/04/16 21:22; Admin Dose 1 APPLIC; Start 06/07/16 at 21:00 Metoclopramide HCl (Reglan) 10 mg Q6H PRN IV NAUSEA AND/OR VOMITING Last administered on 06/08/16 18:00; Admin Dose 10 MG; Start 06/08/16 at 09:30 Lorazepam (Ativan) 1 mg Q6H PRN IV AGITATION/ANXIETY Last administered on 12:34; Admin Dose 1 MG; Start 06/09/16 at 13:30 Midodrine (Proamatine) 5 mg TID@,, GTB Last administered on 07/04/16 17: 34; Admin Dose 5 MG; Start 06/25/16 at 17:00 Citric Acid/ Sodium Citrate 30 ml 30 ml BID PO Last administered on 07/04/16 21 :22; Admin Dose 30 ML; Start 06/26/16 at 21:00 Sodium Chloride (NS) 1,000 ml @ 125 mls/hr Q8H IV Last administered on 13:22; Admin Dose 125 MLS/HR; Start 06/29/16 at 15:30 Potassium Chloride (Potassium Chloride Pwd/Soln) 40 meq DAILY GTB Last administered on 07/04/16 09:09; Admin Dose 40 MEQ; Start 06/30/16 at 10:30 Atenolol 12.5 mg 12.5 mg BID PO Last administered on 07/04/16 09:10; Admin Dose 12.5 MG; Start 06/30/16 at 23:00 Metronidazole (Flagyl 500 Mg (Pmx)) 100 ml @ 100 mls/hr Q8 IVPB Last administered on 07/04/16 21:22; Admin Dose 100 MLS/HR; Start 07/03/16 at 14:00 Diagnostic Test (Pha) (Accu-Chek) 1 ea Q12 XX ; Start 07/05/16 at 09:00 HOLLI LINDER MD July 04, 2016 21:32
[2016-07-05] VITALS (22 sets, daily range): BP systolic 97–118; BP diastolic 49–72; PULSE 81–123; RESP 18–43
[2016-07-05] MEDS: ALBUTEROL 18 GM INHALER INH SCH ×6 (01:21→21:00)
[2016-07-05] MEDS: IPRATROPIUM (HFA) 12.9 GM INHALER INH SCH ×6 (01:21→21:00)
[2016-07-05] MEDS: PANTOPRAZOLE 40 MG INJ IV SCH (05:43)
[2016-07-05] MEDS: metroNIDAZOLE 500 MG/NS (PMX) 100 ML IVPB SCH ×3 (05:43→22:01)
[2016-07-05 06:23] LABS: ADD SCAN DIFF NO
[2016-07-05 06:34] LABS: ABNORMAL IP MESSAGE 1; HEMATOCRIT 28.2 % (42.0-52.0); HEMOGLOBIN 9.1 g/dl (14.0-18.0); MEAN CORPUSCULAR HEMOGLOBIN 29.3 pg (29.0-33.0); MEAN CORPUSCULAR HGB CONC 32.3 g/dl (32.0-37.0); MEAN CORPUSCULAR VOLUME 90.7 fl (82.0-101.0); MEAN PLATELET VOLUME 10.8 fl (7.4-10.4); PLATELET COUNT 518 10^3/UL (140-415); RED BLOOD COUNT 3.11 10^6/ul (4.70-6.10); RED CELL DISTRIBUTION WIDTH 18.6 % (11.5-14.5); WHITE BLOOD COUNT 24.7 10^3/ul (4.8-10.8)
[2016-07-05 06:49] LABS: ALBUMIN 1.9 g/dl (3.3-4.9)
[2016-07-05 06:50] LABS: POTASSIUM 3.3 mmol/L (3.5-5.1)
[2016-07-05 06:52] LABS: ALBUMIN/GLOBULIN RATIO 0.67; BILIRUBIN,INDIRECT 0.1 mg/dl (0-1.1); BILIRUBIN,TOTAL 0.1 mg/dl (0.2-1.3); CREATININE 1.01 mg/dl (0.61-1.24); TOTAL PROTEIN 4.7 g/dl (6.1-8.1)
[2016-07-05 06:53] LABS: CALCIUM 6.1 mg/dl (8.4-10.2); MAGNESIUM 1.3 mg/dl (1.7-2.5); PHOSPHORUS 2.3 mg/dl (2.5-4.9)
[2016-07-05] MEDS: SOD CHLORIDE 0.9% 1,000 ML IV SCH ×3 (07:30→15:30)
[2016-07-05] MEDS ORDERED: MAGNESIUM SULFATE 4 GM/100 ML 100 ML IVPB STA (07:58)
[2016-07-05] MEDS ORDERED: POTASSIUM CHLORIDE 250 ML IVPB STA (07:58)
[2016-07-05] MEDS: COLISTIMETHATE (25 MG/ML INHAL SYG) NEB SCH ×2 (09:00→20:00)
[2016-07-05] MEDS: ACCU-CHEK XX SCH ×2 (09:00→21:00)
[2016-07-05] MEDS: ASCORBIC ACID 500 MG TAB GTB SCH (09:01)
[2016-07-05] MEDS: POTASSIUM CHLORIDE 20 MEQ POWDER FOR ORAL SOLN GTB SCH (09:01)
[2016-07-05] MEDS: ATENOLOL 25 MG TAB PO SCH ×2 (09:05→21:50)
[2016-07-05] MEDS: MULTIVITAMINS 5 ML CUP GTB SCH (09:07)
[2016-07-05] MEDS: ASPIRIN 325 MG TAB GTB SCH (09:07)
[2016-07-05] MEDS: MIDODRINE 5 MG TAB GTB SCH ×3 (09:12→17:38)
[2016-07-05] MEDS: CITRIC ACID/SODIUM CITRATE 15 ML CUP PO SCH ×2 (09:13→21:46)
[2016-07-05] MEDS: COLLAGENASE 30 GM TUBE TOP SCH (09:13)
[2016-07-05] MEDS: MUPIROCIN 2% 22 GM OINT TOP SCH ×2 (09:13→21:50)
[2016-07-05] MEDS: ENOXAPARIN 40 MG/0.4 ML SYG SC SCH (09:18)
[2016-07-05 11:01] LABS: LYMPHOCYTES # 3.2 10^3/ul (0.8-2.9); MONOCYTE # 1.7 10^3/ul (0.3-0.9); NEUTROPHIL # 14.8 10^3/ul (1.6-7.5)
--- NOTE | 2016-07-05 11:30 | CONS ---
Date/Time of Note Date/Time of Note DATE: 07/05/16 TIME: 11:29 Consult Date/Type/Reason Admit Date/Time Jun 06, 2016 at 08:08 Initial Consult Date 06/07/16 Type of Consultation: pulmonary Ordering Provider: HOLLI LINDER MD Subjective No significant changes Objective Vital Signs Date Time Temp Pulse Resp B/P Pulse Ox O2 Delivery O2 Flow Rate FiO2 07/05/16 11:15 98.2 55 19 114/72 96 07/05/16 10:34 30 Intake and Output 07/04/16 07/04/16 07/05/16 15:00 23:00 07:00 Intake Total 1450 ml 1580 ml 1320 ml Output Total 1250 ml 900 ml Balance 1450 ml 330 ml 420 ml Exam PHYSICAL EXAMINATION GENERAL: Elderly gentleman, on mechanical ventilation, VITAL SIGNS: see below. HEENT: Pupils equal, round, and reactive to light. Tracheostomy site clean and intact. CARDIAC: S1, S2, tachycardia. CHEST: Diminished air entry bilaterally. ABDOMEN: Mildly distended. Diminished bowel sounds no guarding or rebound EXTREMITIES: No cyanosis, clubbing edema +2 NEUROLOGIC: Generalized weakness Results/Medications Result Diagram: 07/05/16 0550 07/05/16 0445 Results 24 hrs Laboratory Tests Test 07/04/16 11:43 07/04/16 17:33 07/05/16 04:45 07/05/16 05:50 Bedside Glucose 122 114 Sodium Level 144 Potassium Level 3.3 L Chloride Level 112 H Carbon Dioxide Level 21 Anion Gap 14 Blood Urea Nitrogen 42 H Creatinine 1.01 Glucose Level 89 Calcium Level 6.1 L Phosphorus Level 2.3 L Magnesium Level 1.3 L Total Bilirubin 0.1 L Direct Bilirubin 0.00 Indirect Bilirubin 0.1 Aspartate Amino Transf (AST/SGOT) 29 Alanine Aminotransferase (ALT/SGPT) 36 Alkaline Phosphatase 144 H Total Protein 4.7 L Albumin 1.9 L Globulin 2.80 Albumin/Globulin Ratio 0.67 White Blood Count 24.7 #H Red Blood Count 3.11 L Hemoglobin 9.1 L Hematocrit 28.2 L Mean Corpuscular Volume 90.7 Mean Corpuscular Hemoglobin 29.3 Mean Corpuscular Hemoglobin Concent 32.3 Red Cell Distribution Width 18.6 H Platelet Count 518 #H Mean Platelet Volume 10.8 H Neutrophils % 60.0 Band Neutrophils % 3.0 Lymphocytes % 13.0 L Monocytes % 7.0 Eosinophils % Metamyelocytes % 4.0 H Myelocytes % 4.0 H Promyelocytes % 9.0 H Neutrophils # 14.8 H Lymphocytes # 3.2 H Monocytes # 1.7 H Eosinophils # Metamyelocytes # 1.0 Myelocytes # 1.0 Promyelocytes # 2.2 Test 07/05/16 09:29 Bedside Glucose 117 Medications Current Medications Naloxone HCl (Narcan) 0.4 mg Q3M PRN IV DECREASED REPIRATORY RATE; Start at 10:30 Ondansetron HCl (Zofran Inj) 4 mg Q6H PRN IV NAUSEA AND/OR VOMITING; Start 01/12 at 10:30 Nitroglycerin (Nitroglycerin (Sl Tab) 0.4 Mg) 1 tab Q5M PRN SL CHEST PAIN; Start 06/06/16 at 10:30 Acetaminophen (Tylenol Liquid) 650 mg Q6H PRN PO PAIN LEVEL 1-3 OR FEVER Last administered on 06/29/16 12:50; Admin Dose 650 MG; Start 06/06/16 at 10:30 Morphine Sulfate (morphine) 2 mg Q4H PRN IV PAIN LEVEL 7-10 Last administered on 06/15/16 00:22; Admin Dose 2 MG; Start 06/06/16 at 10:30 Docusate Sodium (Colace) 100 mg Q12H PRN PO CONSTIPATION; Start 06/06/16 at 10: 30 Magnesium Hydroxide (Milk Of Mag) 30 ml DAILY PRN PO CONSTIPATION; Start at 10:30 Bisacodyl (Dulcolax) 5 mg DAILY PRN PO CONSTIPATION; Start 06/06/16 at 10:30 Pantoprazole (Protonix Iv) 40 mg DAILY@06 IV Last administered on 07/05/16 05: 43; Admin Dose 40 MG; Start 06/07/16 at 06:00 Enoxaparin Sodium (Lovenox) 40 mg DAILY SC Last administered on 07/05/16 09:18 ; Admin Dose 40 MG; Start 06/07/16 at 09:00 Collagenase (Santyl) 1 applic DAILY TOP Last administered on 07/05/16 09:13; Admin Dose 1 APPLIC; Start 06/07/16 at 09:00 Collagenase (Santyl) 1 applic PRN PRN TOP WOUND CARE; Start 06/06/16 at 16:00 IV Flush (NS 10 ml) 10 ml PRN PRN IV IV PROTOCOL; Start 06/06/16 at 18:30 Ascorbic Acid (Vitamin C) 500 mg DAILY GTB Last administered on 07/05/16 09:01 ; Admin Dose 500 MG; Start 06/07/16 at 09:00 Aspirin (Aspirin) 325 mg DAILY GTB Last administered on 07/05/16 09:07; Admin Dose 325 MG; Start 06/07/16 at 09:00 Multivitamins (Thera-Plus) 5 ml DAILY GTB Last administered on 07/05/16 09:07 ; Admin Dose 5 ML; Start 06/07/16 at 09:00 Tamsulosin HCl (Flomax) 0.4 mg HS PO Last administered on 07/04/16 21:22; Admin Dose 0.4 MG; Start 06/07/16 at 21:00 Mupirocin (Bactroban) 1 applic BID TOP Last administered on 07/05/16 09:13; Admin Dose 1 APPLIC; Start 06/07/16 at 21:00 Metoclopramide HCl (Reglan) 10 mg Q6H PRN IV NAUSEA AND/OR VOMITING Last administered on 06/08/16 18:00; Admin Dose 10 MG; Start 06/08/16 at 09:30 Lorazepam (Ativan) 1 mg Q6H PRN IV AGITATION/ANXIETY Last administered on 12:34; Admin Dose 1 MG; Start 06/09/16 at 13:30 Midodrine (Proamatine) 5 mg TID@ GTB Last administered on 07/05/16 09: 12; Admin Dose 5 MG; Start 06/25/16 at 17:00 Citric Acid/ Sodium Citrate 30 ml 30 ml BID PO Last administered on 07/05/16 09:13; Admin Dose 30 ML; Start 06/26/16 at 21:00 Sodium Chloride (NS) 1,000 ml @ 125 mls/hr Q8H IV Last administered on 23:30; Admin Dose 125 MLS/HR; Start 06/29/16 at 15:30 Potassium Chloride (Potassium Chloride Pwd/Soln) 40 meq DAILY GTB Last administered on 07/05/16 09:01; Admin Dose 40 MEQ; Start 06/30/16 at 10:30 Atenolol 12.5 mg 12.5 mg BID PO Last administered on 07/05/16 09:05; Admin Dose 12.5 MG; Start 06/30/16 at 23:00 Metronidazole (Flagyl 500 Mg (Pmx)) 100 ml @ 100 mls/hr Q8 IVPB Last administered on 07/05/16 05:43; Admin Dose 100 MLS/HR; Start 07/03/16 at 14:00 Diagnostic Test (Pha) (Accu-Chek) 1 ea Q12 XX ; Start 07/05/16 at 09:00 Magnesium Oxide (Mag-Ox 400) 200 mg DAILY PO ; Start 07/05/16 at 12:00; Stop at 08:00 Assessment/Plan Chief Complaint/Hosp Course Assessment 1. Vent dependent respiratory failure with evidence of healthcare associated pneumonia 2. Status post bowel perforation with drainage, persistent leukocytosis 3. Ongoing sepsis as above 4. Chronic atrial fibrillation 5. Decubitus ulcers 6. Dysphagia with G-tube 7. Anemia worsening no evidence of GI bleed Plan 1. Continue mechanical ventilation 2. Continue broad-spectrum antibiotics per infectious diseases 3. Surgical recommendations regarding abdominal drains 4. Palliative care consult appreciated 5. DVT and GI prophylaxis 6. Stable post transfusion Disposition Continue current care Appreciate palliative care input Problems: KAVON TROY MD, [facility] July 05, 2016 11:30
[2016-07-05] MEDS: MAGNESIUM OXIDE 400 MG TAB PO SCH (12:59)
[2016-07-05] MEDS ORDERED: VANCOMYCIN IV PER PHARMACY XX SCH (14:00)
--- NOTE | 2016-07-05 14:33 | PN ---
DATE: 07/05/2016 INFECTIOUS DISEASE PROGRESS NOTE SUBJECTIVE: No events overnight. The patient is lying comfortably in bed, tachypneic, in no distre ss. No fevers. LABORATORY DATA: WBC today increased to 24.7, H and H 9.1 and 28.2, platelets 518, neutrophils 60, bands 3, lymphs 13, BUN 42, creatinine 1.01. MICROBIOLOGY: Blood cultures since June 30 negative. Urine culture negative. DIAGNOSTICS: CT of the abdomen, pelvis, and chest revealed mild diffuse abdominal and pelvic free f luid with mesenteric inflammation, previously demonstrated left lower quadrant fluid collection is n o longer identified. No obstruction or ileus. Mild pulmonary vascular congestion. Cholelithiasis. INDWELLINGS: Trach, PEG, Alfonso, left upper extremity PICC line, and rectal tube. ANTIMICROBIALS: The patient on: 1. Flagyl. 2. Colistin inhalation. MICROBIOLOGY: Sputum culture grew Acinetobacter baumannii and Klebsiella multidrug resistance. PHYSICAL EXAMINATION: GENERAL: Chronically ill-appearing, fragile, elderly man who is nonverbal, noncommunicative. The p atient is in no distress. HEENT: Head atraumatic, normocephalic. Sclerae anicteric. Buccal mucosa dry. NECK: Supple. Tracheostomy present. CHEST: Rise symmetrical. Breath sounds diminished to bases. HEART: S1, S2. ABDOMEN: Soft. Bowel sounds hypoactive. EXTREMITIES: Without cyanosis. Bilateral trace edema. ASSESSMENT: 1. Persistent leukocytosis, etiology unclear, could be reactive. Rule out line sepsis. 2. Status post perforated viscus with drainage catheter placement and [address] of the abdome n revealed complete resolution. 3. Chronic respiratory failure, status post pneumonia. 4. Status post urinary tract infection and methicillin-resistant Staphylococcus aureus bacteremia. 5. Unstageable sacral decubitus. 6. Anemia. 7. Chronic encephalopathy. PLAN: We are going to start patient on vancomycin and meropenem. Continue Flagyl. Continue colist in inhalation. Consider discontinuing PICC line and also add empiric antifungal coverage. Dictated By: JOSE G CUNNINGHAM [employer] for RASHIDA CAMPBELL MD NI/NTS Conf#: [id number] DID#: [id number]
[2016-07-05] MEDS: VANCOMYCIN 1 GM in NS 250 ML IVPB SCH (15:14)
[2016-07-05] MEDS: FLUCONAZOLE 100 MG TAB PO SCH (15:14)
[2016-07-05] MEDS: MEROPENEM 500 MG/100 ML (PMX) 100 ML IVPB SCH ×2 (15:20→22:01)
--- NOTE | 2016-07-05 16:45 | CONS ---
Date/Time of Note Date/Time of Note DATE: 07/05/16 TIME: 16:41 Assessment/Plan Assessment/Plan Chief Complaint/Hosp Course IMp: 1.CHF-systolic acute on chonic-reasonable volume status at this time 2.Resp failure s/p trach on vent 3.Cardiomyopathy-LVEF 25-30% 4.HTN-with recurrent episodes of Hotn on midodrine 5.PPM-s/p interrogation with proper function-episodes of SVT and short episode VT 06/09/16/good battery life 6.Leukocytosis 7.Tachycardia-PAF/AFL rate controlled 8.Perforated viscous s/p IR drain now removed 9. Renal insuff-? overdiuresis 10. Wide complex tachy-NSVT today 06/30/16 Recc: -Tele -Follow BP/Volume status closely currently off of lasix with improving renal function -Continue abx's and f/u cx data and treat fevers -Continue atenolol as tolerated/possible only given ongoing recurrent tachy -Continue asa/low dose lovenox -Continue abx's/f/u cx data -Palliative care following -Now on midodrine BP support as necessary and thus continue for now -Dose IVP digoxin to aide in HR control Problems: Consultation Date/Type/Reason Admit Date/Time Jun 06, 2016 at 08:08 Initial Consult Date 06/07/16 Type of Consultation: Cardiology Reason for Consultation CHF Referring Provider: HOLLI LINDER MD Exam/Review of Systems Vital Signs Vitals Vital Signs Date Time Temp Pulse Resp B/P Pulse Ox O2 Delivery O2 Flow Rate FiO2 07/05/16 15:16 99.1 121 110/58 98 07/05/16 13:35 43 30 Intake and Output 07/04/16 07/04/16 07/05/16 15:00 23:00 07:00 Intake Total 1450 ml 1580 ml 1320 ml Output Total 1250 ml 900 ml Balance 1450 ml 330 ml 420 ml Exam Review of Systems: CONSTITUTIONAL: No fevers, chills. PULMONARY: trached CARDIOVASCULAR: No chest pain/palpitations GASTROINTESTINAL: No nausea/vomiting. GENITOURINARY: No hematuria/dysuria. MUSCULOSKELETAL: No myagias/arthalgias. PSYCHIATRIC: The patient denies depression. NEUROLOGIC: lethargic Constitutional: other (sleeping, encephalopathic) Psych: no complaints Head: normocephalic ENMT: mucosa pink and moist Neck: jvd (9 cm water), supple Respiratory: diminished breath sounds Cardiovascular: regular rate and rhythm Gastrointestinal: non-tender, soft Musculoskeletal: muscle weakness (generalized) Extremities: pitting pedal edema (/B) Neurological: other (No focal deficits) Results Result Diagram: 07/05/16 0550 07/05/16 0445 Results 24 hrs Laboratory Tests Test 07/04/16 17:33 07/05/16 04:45 07/05/16 05:50 07/05/16 09:29 Bedside Glucose 114 117 Sodium Level 144 Potassium Level 3.3 L Chloride Level 112 H Carbon Dioxide Level 21 Anion Gap 14 Blood Urea Nitrogen 42 H Creatinine 1.01 Glucose Level 89 Calcium Level 6.1 L Phosphorus Level 2.3 L Magnesium Level 1.3 L Total Bilirubin 0.1 L Direct Bilirubin 0.00 Indirect Bilirubin 0.1 Aspartate Amino Transf (AST/SGOT) 29 Alanine Aminotransferase (ALT/SGPT) 36 Alkaline Phosphatase 144 H Total Protein 4.7 L Albumin 1.9 L Globulin 2.80 Albumin/Globulin Ratio 0.67 White Blood Count 24.7 #H Red Blood Count 3.11 L Hemoglobin 9.1 L Hematocrit 28.2 L Mean Corpuscular Volume 90.7 Mean Corpuscular Hemoglobin 29.3 Mean Corpuscular Hemoglobin Concent 32.3 Red Cell Distribution Width 18.6 H Platelet Count 518 #H Mean Platelet Volume 10.8 H Neutrophils % 60.0 Band Neutrophils % 3.0 Lymphocytes % 13.0 L Monocytes % 7.0 Eosinophils % Metamyelocytes % 4.0 H Myelocytes % 4.0 H Promyelocytes % 9.0 H Neutrophils # 14.8 H Lymphocytes # 3.2 H Monocytes # 1.7 H Eosinophils # Metamyelocytes # 1.0 Myelocytes # 1.0 Promyelocytes # 2.2 Medications Medications Current Medications Naloxone HCl (Narcan) 0.4 mg Q3M PRN IV DECREASED REPIRATORY RATE; Start at 10:30 Ondansetron HCl (Zofran Inj) 4 mg Q6H PRN IV NAUSEA AND/OR VOMITING; Start 01/12 at 10:30 Nitroglycerin (Nitroglycerin (Sl Tab) 0.4 Mg) 1 tab Q5M PRN SL CHEST PAIN; Start 06/06/16 at 10:30 Acetaminophen (Tylenol Liquid) 650 mg Q6H PRN PO PAIN LEVEL 1-3 OR FEVER Last administered on 06/29/16 12:50; Admin Dose 650 MG; Start 06/06/16 at 10:30 Morphine Sulfate (morphine) 2 mg Q4H PRN IV PAIN LEVEL 7-10 Last administered on 06/15/16 00:22; Admin Dose 2 MG; Start 06/06/16 at 10:30 Docusate Sodium (Colace) 100 mg Q12H PRN PO CONSTIPATION; Start 06/06/16 at 10: 30 Magnesium Hydroxide (Milk Of Mag) 30 ml DAILY PRN PO CONSTIPATION; Start at 10:30 Bisacodyl (Dulcolax) 5 mg DAILY PRN PO CONSTIPATION; Start 06/06/16 at 10:30 Pantoprazole (Protonix Iv) 40 mg DAILY@06 IV Last administered on 07/05/16 05: 43; Admin Dose 40 MG; Start 06/07/16 at 06:00 Enoxaparin Sodium (Lovenox) 40 mg DAILY SC Last administered on 07/05/16 09:18 ; Admin Dose 40 MG; Start 06/07/16 at 09:00 Collagenase (Santyl) 1 applic DAILY TOP Last administered on 07/05/16 09:13; Admin Dose 1 APPLIC; Start 06/07/16 at 09:00 Collagenase (Santyl) 1 applic PRN PRN TOP WOUND CARE; Start 06/06/16 at 16:00 IV Flush (NS 10 ml) 10 ml PRN PRN IV IV PROTOCOL; Start 06/06/16 at 18:30 Ascorbic Acid (Vitamin C) 500 mg DAILY GTB Last administered on 07/05/16 09:01 ; Admin Dose 500 MG; Start 06/07/16 at 09:00 Aspirin (Aspirin) 325 mg DAILY GTB Last administered on 07/05/16 09:07; Admin Dose 325 MG; Start 06/07/16 at 09:00 Multivitamins (Thera-Plus) 5 ml DAILY GTB Last administered on 07/05/16 09:07 ; Admin Dose 5 ML; Start 06/07/16 at 09:00 Tamsulosin HCl (Flomax) 0.4 mg HS PO Last administered on 07/04/16 21:22; Admin Dose 0.4 MG; Start 06/07/16 at 21:00 Mupirocin (Bactroban) 1 applic BID TOP Last administered on 07/05/16 09:13; Admin Dose 1 APPLIC; Start 06/07/16 at 21:00 Metoclopramide HCl (Reglan) 10 mg Q6H PRN IV NAUSEA AND/OR VOMITING Last administered on 06/08/16 18:00; Admin Dose 10 MG; Start 06/08/16 at 09:30 Lorazepam (Ativan) 1 mg Q6H PRN IV AGITATION/ANXIETY Last administered on 12:34; Admin Dose 1 MG; Start 06/09/16 at 13:30 Midodrine (Proamatine) 5 mg TID@,, GTB Last administered on 07/05/16 12: 59; Admin Dose 5 MG; Start 06/25/16 at 17:00 Citric Acid/ Sodium Citrate 30 ml 30 ml BID PO Last administered on 07/05/16 09:13; Admin Dose 30 ML; Start 06/26/16 at 21:00 Sodium Chloride (NS) 1,000 ml @ 125 mls/hr Q8H IV Last administered on 13:14; Admin Dose 125 MLS/HR; Start 06/29/16 at 15:30 Potassium Chloride (Potassium Chloride Pwd/Soln) 40 meq DAILY GTB Last administered on 07/05/16 09:01; Admin Dose 40 MEQ; Start 06/30/16 at 10:30 Atenolol 12.5 mg 12.5 mg BID PO Last administered on 07/05/16 09:05; Admin Dose 12.5 MG; Start 06/30/16 at 23:00 Metronidazole (Flagyl 500 Mg (Pmx)) 100 ml @ 100 mls/hr Q8 IVPB Last administered on 07/05/16 13:13; Admin Dose 100 MLS/HR; Start 07/03/16 at 14:00 Diagnostic Test (Pha) (Accu-Chek) 1 ea Q12 XX ; Start 07/05/16 at 09:00 Magnesium Oxide (Mag-Ox 400) 200 mg DAILY PO Last administered on 07/05/16 12: 59; Admin Dose 200 MG; Start 07/05/16 at 12:00; Stop 07/12/16 at 08:00 Fluconazole 100 mg 100 mg DAILY PO Last administered on 07/05/16 15:14; Admin Dose 100 MG; Start 07/05/16 at 14:00 Meropenem 100 ml @ 200 mls/hr Q8 IVPB Last administered on 07/05/16 15:20; Admin Dose 200 MLS/HR; Start 07/05/16 at 14:00 Vancomycin HCl (Vancocin) 250 ml @ 125 mls/hr Q24H IVPB Last administered on 15:14; Admin Dose 125 MLS/HR; Start 07/05/16 at 14:30 JAYA GORE July 05, 2016 16:45
[2016-07-05] MEDS ORDERED: DIGOXIN 500 MCG INJ IV ONE (17:00)
--- NOTE | 2016-07-05 17:57 | PN ---
Date/Time of Note Date/Time of Note DATE: 07/05/16 TIME: 17:55 Assessment/Plan Lines/Catheters IV Catheter Type (from [facility]): PICC Line Alfonso in Place (from [facility]): Yes Assessment/Plan Chief Complaint/Hosp Course 1. Contained perforated viscous s/p IR drain 06/11. Cx noted. Leukocytosis resolved. Tube feeds. Bowel function. Drain dcd. s/p Abx. Persistent leukocytosis. Chemical code. -defer further w/u to primary team 2. Pneumonia -pulmonary toilette -abx 3. Sepsis, recent. Leukocytosis worsening again. -abx -as above 4. Sacral decubitus ulcer -off load -nutrition optimization -vit c -local care 5. Chronic AFib -rate control -optimize electrolytes -tx infections 6. Anemia, dropped again -? source -? tx 7. Hypoalbuminemia -eventual nutritional optimization 8. CHF -judicious fluid management -cardiac optimization Thank you, Problems: Subjective 24 Hr Interval Summary Chemical code only. Leukocytosis. No f/c. No cough. No sz. No rashes. No bloating. No vomiting. No bleeding. Bowel function. Exam/Review of Systems Vital Signs Vitals Vital Signs Date Time Temp Pulse Resp B/P Pulse Ox O2 Delivery O2 Flow Rate FiO2 07/05/16 17:11 96 40 100 30 07/05/16 15:16 99.1 110/58 Intake and Output 07/04/16 07/04/16 07/05/16 15:00 23:00 07:00 Intake Total 1450 ml 1580 ml 1320 ml Output Total 1250 ml 900 ml Balance 1450 ml 330 ml 420 ml Exam Free Text/Dictation Constitutional: No distress, No oriented Psych: confusion, No anxiety Head: atraumatic, normocephalic Eyes: PERRL, nl conjunctiva, No icteric ENMT: mucosa pink and moist, nl external ears & nose, nl lips & teeth Neck: jvd (min), non-tender Respiratory: No congested cough, No labored breathing Cardiovascular: No edema, No regular rate and rhythm Gastrointestinal: soft, PEGNo distended, No firm, No rebound or guarding Musculoskeletal: No joint tenderness, No nl gait and stance Extremities: No calf tenderness, No cyanosis Neurological: No nl mental status, No nl speech, No nl strength Skin: nl turgor, rash or lesions (Sacral and LE decubitus ulcerations), No diaphoresis Lymph: nl lymph nodes Results Result Diagram: 07/05/16 0550 07/05/16 0445 DAREK AHMADI MD July 05, 2016 17:57
[2016-07-05] MEDS: TAMSULOSIN (SR) 0.4 MG CAP PO SCH (21:46)
--- NOTE | 2016-07-05 23:54 | PN ---
Date/Time of Note Date/Time of Note DATE: 07/05/16 TIME: 23:53 Assessment/Plan VTE Prophylaxis VTE Prophylaxis Intervention: other Lines/Catheters IV Catheter Type (from Nrs): PICC Line Central line still needed: Yes Urinary Cath still in place: Yes Reason Cath still needed: other (indicate) Assessment/Plan Chief Complaint/Hosp Course IMPRESSION: 1. Sepsis 2. Pneumonia. aspiration 3. Leukocytosis. 4. Hematuria. better 5. Lactic acidosis. better 6. Respiratory failure. 7. Gastrostomy tube placement. 8. Anemia. 9. Atrial fibrillation. 10. History of congestive heart failure with decreased ejection fraction. 11. vdrf 12. History of paroxysmal atrial fibrillation. 13. The patient now has decubitus. 14 uti 15 polymirobial sepsis 16 pul edema BETTER 17 no gi bleed 18 hypokalemia better 19 diarrhea cdiff neg plan per id iv fluid poor prognosis ck labs weaning per pulmonary and cardio surgery consult GT FEEDING per iD bicitra snf when stable poor prognosis lytes replacement Problems: Subjective 24 Hr Interval Summary Subjective hx not possible: other (no distress) Exam/Review of Systems Vital Signs Vitals Vital Signs Date Time Temp Pulse Resp B/P Pulse Ox O2 Delivery O2 Flow Rate FiO2 07/05/16 22:15 30 07/05/16 20:22 90 07/05/16 20:17 98.0 19 111/55 96 Intake and Output 07/04/16 07/04/16 07/05/16 15:00 23:00 07:00 Intake Total 1450 ml 1580 ml 1320 ml Output Total 1250 ml 900 ml Balance 1450 ml 330 ml 420 ml Exam Respiratory: diminished breath sounds Cardiovascular: regular rate and rhythm Gastrointestinal: soft Musculoskeletal: nl extremities to inspection Extremities: normal pulses Results Result Diagram: 07/05/16 0550 07/05/16 0445 Results 24 hrs Laboratory Tests Test 07/05/16 04:45 07/05/16 05:50 07/05/16 09:29 07/05/16 22:11 Sodium Level 144 Potassium Level 3.3 L Chloride Level 112 H Carbon Dioxide Level 21 Anion Gap 14 Blood Urea Nitrogen 42 H Creatinine 1.01 Glucose Level 89 Calcium Level 6.1 L Phosphorus Level 2.3 L Magnesium Level 1.3 L Total Bilirubin 0.1 L Direct Bilirubin 0.00 Indirect Bilirubin 0.1 Aspartate Amino Transf (AST/SGOT) 29 Alanine Aminotransferase (ALT/SGPT) 36 Alkaline Phosphatase 144 H Total Protein 4.7 L Albumin 1.9 L Globulin 2.80 Albumin/Globulin Ratio 0.67 White Blood Count 24.7 #H Red Blood Count 3.11 L Hemoglobin 9.1 L Hematocrit 28.2 L Mean Corpuscular Volume 90.7 Mean Corpuscular Hemoglobin 29.3 Mean Corpuscular Hemoglobin Concent 32.3 Red Cell Distribution Width 18.6 H Platelet Count 518 #H Mean Platelet Volume 10.8 H Neutrophils % 60.0 Band Neutrophils % 3.0 Lymphocytes % 13.0 L Monocytes % 7.0 Eosinophils % Metamyelocytes % 4.0 H Myelocytes % 4.0 H Promyelocytes % 9.0 H Neutrophils # 14.8 H Lymphocytes # 3.2 H Monocytes # 1.7 H Eosinophils # Metamyelocytes # 1.0 Myelocytes # 1.0 Promyelocytes # 2.2 Bedside Glucose 117 93 Medications Medications Current Medications Naloxone HCl (Narcan) 0.4 mg Q3M PRN IV DECREASED REPIRATORY RATE; Start at 10:30 Ondansetron HCl (Zofran Inj) 4 mg Q6H PRN IV NAUSEA AND/OR VOMITING; Start 01/12 at 10:30 Nitroglycerin (Nitroglycerin (Sl Tab) 0.4 Mg) 1 tab Q5M PRN SL CHEST PAIN; Start 06/06/16 at 10:30 Acetaminophen (Tylenol Liquid) 650 mg Q6H PRN PO PAIN LEVEL 1-3 OR FEVER Last administered on 06/29/16 12:50; Admin Dose 650 MG; Start 06/06/16 at 10:30 Morphine Sulfate (morphine) 2 mg Q4H PRN IV PAIN LEVEL 7-10 Last administered on 06/15/16 00:22; Admin Dose 2 MG; Start 06/06/16 at 10:30 Docusate Sodium (Colace) 100 mg Q12H PRN PO CONSTIPATION; Start 06/06/16 at 10: 30 Magnesium Hydroxide (Milk Of Mag) 30 ml DAILY PRN PO CONSTIPATION; Start at 10:30 Bisacodyl (Dulcolax) 5 mg DAILY PRN PO CONSTIPATION; Start 06/06/16 at 10:30 Enoxaparin Sodium (Lovenox) 40 mg DAILY SC Last administered on 07/05/16 09:18 ; Admin Dose 40 MG; Start 06/07/16 at 09:00 Collagenase (Santyl) 1 applic DAILY TOP Last administered on 07/05/16 09:13; Admin Dose 1 APPLIC; Start 06/07/16 at 09:00 Collagenase (Santyl) 1 applic PRN PRN TOP WOUND CARE; Start 06/06/16 at 16:00 IV Flush (NS 10 ml) 10 ml PRN PRN IV IV PROTOCOL; Start 06/06/16 at 18:30 Ascorbic Acid (Vitamin C) 500 mg DAILY GTB Last administered on 07/05/16 09:01 ; Admin Dose 500 MG; Start 06/07/16 at 09:00 Aspirin (Aspirin) 325 mg DAILY GTB Last administered on 07/05/16 09:07; Admin Dose 325 MG; Start 06/07/16 at 09:00 Multivitamins (Thera-Plus) 5 ml DAILY GTB Last administered on 07/05/16 09:07 ; Admin Dose 5 ML; Start 06/07/16 at 09:00 Tamsulosin HCl (Flomax) 0.4 mg HS PO Last administered on 07/05/16 21:46; Admin Dose 0.4 MG; Start 06/07/16 at 21:00 Mupirocin (Bactroban) 1 applic BID TOP Last administered on 07/05/16 21:50; Admin Dose 1 APPLIC; Start 06/07/16 at 21:00 Metoclopramide HCl (Reglan) 10 mg Q6H PRN IV NAUSEA AND/OR VOMITING Last administered on 06/08/16 18:00; Admin Dose 10 MG; Start 06/08/16 at 09:30 Lorazepam (Ativan) 1 mg Q6H PRN IV AGITATION/ANXIETY Last administered on 12:34; Admin Dose 1 MG; Start 06/09/16 at 13:30 Midodrine (Proamatine) 5 mg TID@ GTB Last administered on 07/05/16 17: 38; Admin Dose 5 MG; Start 06/25/16 at 17:00 Citric Acid/ Sodium Citrate 30 ml 30 ml BID PO Last administered on 07/05/16 21:46; Admin Dose 30 ML; Start 06/26/16 at 21:00 Sodium Chloride (NS) 1,000 ml @ 125 mls/hr Q8H IV Last administered on 13:14; Admin Dose 125 MLS/HR; Start 06/29/16 at 15:30 Potassium Chloride (Potassium Chloride Pwd/Soln) 40 meq DAILY GTB Last administered on 07/05/16 09:01; Admin Dose 40 MEQ; Start 06/30/16 at 10:30 Atenolol 12.5 mg 12.5 mg BID PO Last administered on 07/05/16 21:50; Admin Dose 12.5 MG; Start 06/30/16 at 23:00 Metronidazole (Flagyl 500 Mg (Pmx)) 100 ml @ 100 mls/hr Q8 IVPB Last administered on 07/05/16 22:01; Admin Dose 100 MLS/HR; Start 07/03/16 at 14:00 Diagnostic Test (Pha) (Accu-Chek) 1 ea Q12 XX ; Start 07/05/16 at 09:00 Magnesium Oxide (Mag-Ox 400) 200 mg DAILY PO Last administered on 07/05/16 12: 59; Admin Dose 200 MG; Start 07/05/16 at 12:00; Stop 07/12/16 at 08:00 Fluconazole 100 mg 100 mg DAILY PO Last administered on 07/05/16 15:14; Admin Dose 100 MG; Start 07/05/16 at 14:00 Meropenem 100 ml @ 200 mls/hr Q8 IVPB Last administered on 07/05/16 22:01; Admin Dose 200 MLS/HR; Start 07/05/16 at 14:00 Vancomycin HCl (Vancocin) 250 ml @ 125 mls/hr Q24H IVPB Last administered on 15:14; Admin Dose 125 MLS/HR; Start 07/05/16 at 14:30 Lansoprazole (Prevacid) 30 mg DAILY@06 GTB ; Start 07/06/16 at 06:00 HOLLI LINDER MD July 05, 2016 23:54
[2016-07-06] VITALS (25 sets, daily range): BP systolic 101–164; BP diastolic 49–83; PULSE 63–104; RESP 19–37
[2016-07-06] MEDS: SOD CHLORIDE 0.9% 1,000 ML IV SCH ×2 (00:13→06:42)
[2016-07-06] MEDS: ALBUTEROL 18 GM INHALER INH SCH ×6 (01:00→20:01)
[2016-07-06] MEDS: IPRATROPIUM (HFA) 12.9 GM INHALER INH SCH ×6 (01:00→20:01)
[2016-07-06] MEDS: MEROPENEM 500 MG/100 ML (PMX) 100 ML IVPB SCH ×3 (05:42→21:02)
[2016-07-06] MEDS: metroNIDAZOLE 500 MG/NS (PMX) 100 ML IVPB SCH ×3 (05:42→22:18)
[2016-07-06] MEDS: LANSOPRAZOLE 30 MG CAP GTB SCH (05:42)
[2016-07-06 07:39] LABS: CALCIUM 6.1 mg/dl (8.4-10.2); CREATININE 0.93 mg/dl (0.61-1.24); MAGNESIUM 1.9 mg/dl (1.7-2.5); POTASSIUM 4.3 mmol/L (3.5-5.1)
[2016-07-06] MEDS: ACCU-CHEK XX SCH ×2 (09:00→21:00)
[2016-07-06] MEDS: COLISTIMETHATE (25 MG/ML INHAL SYG) NEB SCH ×2 (09:24→20:02)
[2016-07-06] MEDS: ASCORBIC ACID 500 MG TAB GTB SCH (09:31)
[2016-07-06] MEDS: CITRIC ACID/SODIUM CITRATE 15 ML CUP PO SCH ×2 (09:31→22:16)
[2016-07-06] MEDS: MULTIVITAMINS 5 ML CUP GTB SCH (09:31)
[2016-07-06] MEDS: FLUCONAZOLE 100 MG TAB PO SCH (09:31)
[2016-07-06] MEDS: ASPIRIN 325 MG TAB GTB SCH (09:31)
[2016-07-06] MEDS: MAGNESIUM OXIDE 400 MG TAB PO SCH (09:31)
[2016-07-06] MEDS: POTASSIUM CHLORIDE 20 MEQ POWDER FOR ORAL SOLN GTB SCH (09:32)
[2016-07-06] MEDS: ATENOLOL 25 MG TAB PO SCH ×2 (09:33→22:18)
[2016-07-06] MEDS: COLLAGENASE 30 GM TUBE TOP SCH (09:33)
[2016-07-06] MEDS: MUPIROCIN 2% 22 GM OINT TOP SCH ×2 (09:33→22:18)
[2016-07-06] MEDS: MIDODRINE 5 MG TAB GTB SCH ×3 (09:38→16:44)
[2016-07-06] MEDS: ENOXAPARIN 40 MG/0.4 ML SYG SC SCH (09:42)
[2016-07-06 12:02] LABS: ADD SCAN DIFF NO
[2016-07-06 12:08] LABS: ABNORMAL IP MESSAGE 1; BASOPHIL # 0.1 10^3/ul (0.0-0.1); BASOPHILS % 0.2 % (0.0-2.0); EOSINOPHILS # 0.2 10^3/ul (0.0-0.5); EOSINOPHILS % 0.9 % (0.0-7.0); HEMATOCRIT 29.2 % (42.0-52.0); HEMOGLOBIN 8.9 g/dl (14.0-18.0); LYMPHOCYTES # 2.3 10^3/ul (0.8-2.9); LYMPHOCYTES % 8.5 % (15.0-51.0); MEAN CORPUSCULAR HEMOGLOBIN 28.7 pg (29.0-33.0); MEAN CORPUSCULAR HGB CONC 30.5 g/dl (32.0-37.0); MEAN CORPUSCULAR VOLUME 94.2 fl (82.0-101.0); MEAN PLATELET VOLUME 11.2 fl (7.4-10.4); MONOCYTE # 2.2 10^3/ul (0.3-0.9); MONOCYTES % 8.1 % (0.0-11.0); NEUTROPHIL # 16.2 10^3/ul (1.6-7.5); NEUTROPHILS % 60.6 % (39.0-77.0); NUCLEATED RED BLOOD CELLS # 0.1 10^3/ul (0.0-0.0); NUCLEATED RED BLOOD CELLS% 0.3 /100WBC (0.0-0.0); PLATELET COUNT 560 10^3/UL (140-415); WHITE BLOOD COUNT 26.7 10^3/ul (4.8-10.8)
--- NOTE | 2016-07-06 12:38 | CONS ---
Date/Time of Note Date/Time of Note DATE: 07/06/16 TIME: 12:37 Consult Date/Type/Reason Admit Date/Time Jun 06, 2016 at 08:08 Initial Consult Date 06/07/16 Type of Consultation: Pulmonary Ordering Provider: HOLLI LINDER MD Subjective No significant changes patient remains on mechanical ventilation and mostly somnolent Objective Vital Signs Date Time Temp Pulse Resp B/P Pulse Ox O2 Delivery O2 Flow Rate FiO2 07/06/16 12:00 78 07/06/16 11:49 98.2 19 120/56 96 07/06/16 11:10 30 Intake and Output 07/05/16 07/05/16 07/06/16 15:00 23:00 07:00 Intake Total 3280 ml Output Total 1600 ml Balance 1680 ml Exam PHYSICAL EXAMINATION GENERAL: Elderly gentleman, on mechanical ventilation, VITAL SIGNS: see below. HEENT: Pupils equal, round, and reactive to light. Tracheostomy site clean and intact. CARDIAC: S1, S2, tachycardia. CHEST: Diminished air entry bilaterally. ABDOMEN: Mildly distended. Diminished bowel sounds no guarding or rebound EXTREMITIES: No cyanosis, clubbing edema +2 NEUROLOGIC: Generalized weakness Results/Medications Result Diagram: 07/06/16 0645 07/06/16 0645 Results 24 hrs Laboratory Tests Test 07/05/16 22:11 07/06/16 06:45 07/06/16 09:26 Bedside Glucose 93 89 White Blood Count 26.7 H Red Blood Count 3.10 L Hemoglobin 8.9 L Hematocrit 29.2 L Mean Corpuscular Volume 94.2 Mean Corpuscular Hemoglobin 28.7 L Mean Corpuscular Hemoglobin Concent 30.5 L Red Cell Distribution Width 19.0 H Platelet Count 560 H Mean Platelet Volume 11.2 H Neutrophils % 60.6 Lymphocytes % 8.5 L Monocytes % 8.1 Eosinophils % 0.9 Basophils % 0.2 Nucleated Red Blood Cells % 0.3 H Neutrophils # 16.2 H Lymphocytes # 2.3 Monocytes # 2.2 H Eosinophils # 0.2 Basophils # 0.1 Nucleated Red Blood Cells # 0.1 H Sodium Level 140 Potassium Level 4.3 Chloride Level 117 H Carbon Dioxide Level 22 Anion Gap 5 #L Blood Urea Nitrogen 39 H Creatinine 0.93 Glucose Level 84 Calcium Level 6.1 L Magnesium Level 1.9 Medications Current Medications Naloxone HCl (Narcan) 0.4 mg Q3M PRN IV DECREASED REPIRATORY RATE; Start at 10:30 Ondansetron HCl (Zofran Inj) 4 mg Q6H PRN IV NAUSEA AND/OR VOMITING; Start 01/12 at 10:30 Nitroglycerin (Nitroglycerin (Sl Tab) 0.4 Mg) 1 tab Q5M PRN SL CHEST PAIN; Start 06/06/16 at 10:30 Acetaminophen (Tylenol Liquid) 650 mg Q6H PRN PO PAIN LEVEL 1-3 OR FEVER Last administered on 06/29/16 12:50; Admin Dose 650 MG; Start 06/06/16 at 10:30 Morphine Sulfate (morphine) 2 mg Q4H PRN IV PAIN LEVEL 7-10 Last administered on 06/15/16 00:22; Admin Dose 2 MG; Start 06/06/16 at 10:30 Docusate Sodium (Colace) 100 mg Q12H PRN PO CONSTIPATION; Start 06/06/16 at 10: 30 Magnesium Hydroxide (Milk Of Mag) 30 ml DAILY PRN PO CONSTIPATION; Start at 10:30 Bisacodyl (Dulcolax) 5 mg DAILY PRN PO CONSTIPATION; Start 06/06/16 at 10:30 Enoxaparin Sodium (Lovenox) 40 mg DAILY SC Last administered on 07/06/16 09:42 ; Admin Dose 40 MG; Start 06/07/16 at 09:00 Collagenase (Santyl) 1 applic DAILY TOP Last administered on 07/06/16 09:33; Admin Dose 1 APPLIC; Start 06/07/16 at 09:00 Collagenase (Santyl) 1 applic PRN PRN TOP WOUND CARE; Start 06/06/16 at 16:00 IV Flush (NS 10 ml) 10 ml PRN PRN IV IV PROTOCOL; Start 06/06/16 at 18:30 Ascorbic Acid (Vitamin C) 500 mg DAILY GTB Last administered on 07/06/16 09:31 ; Admin Dose 500 MG; Start 06/07/16 at 09:00 Aspirin (Aspirin) 325 mg DAILY GTB Last administered on 07/06/16 09:31; Admin Dose 325 MG; Start 06/07/16 at 09:00 Multivitamins (Thera-Plus) 5 ml DAILY GTB Last administered on 07/06/16 09:31 ; Admin Dose 5 ML; Start 06/07/16 at 09:00 Tamsulosin HCl (Flomax) 0.4 mg HS PO Last administered on 07/05/16 21:46; Admin Dose 0.4 MG; Start 06/07/16 at 21:00 Mupirocin (Bactroban) 1 applic BID TOP Last administered on 07/06/16 09:33; Admin Dose 1 APPLIC; Start 06/07/16 at 21:00 Metoclopramide HCl (Reglan) 10 mg Q6H PRN IV NAUSEA AND/OR VOMITING Last administered on 06/08/16 18:00; Admin Dose 10 MG; Start 06/08/16 at 09:30 Lorazepam (Ativan) 1 mg Q6H PRN IV AGITATION/ANXIETY Last administered on 12:34; Admin Dose 1 MG; Start 06/09/16 at 13:30 Midodrine (Proamatine) 5 mg TID@,,17 GTB Last administered on 07/06/16 09: 38; Admin Dose 5 MG; Start 06/25/16 at 17:00 Citric Acid/ Sodium Citrate 30 ml 30 ml BID PO Last administered on 07/06/16 09:31; Admin Dose 30 ML; Start 06/26/16 at 21:00 Sodium Chloride (NS) 1,000 ml @ 125 mls/hr Q8H IV Last administered on 06:42; Admin Dose 125 MLS/HR; Start 06/29/16 at 15:30 Potassium Chloride (Potassium Chloride Pwd/Soln) 40 meq DAILY GTB Last administered on 07/06/16 09:32; Admin Dose 40 MEQ; Start 06/30/16 at 10:30 Atenolol 12.5 mg 12.5 mg BID PO Last administered on 07/06/16 09:33; Admin Dose 12.5 MG; Start 06/30/16 at 23:00 Metronidazole (Flagyl 500 Mg (Pmx)) 100 ml @ 100 mls/hr Q8 IVPB Last administered on 07/06/16 05:42; Admin Dose 100 MLS/HR; Start 07/03/16 at 14:00 Diagnostic Test (Pha) (Accu-Chek) 1 ea Q12 XX Last administered on 07/06/16 09 :00; Admin Dose 1 EA; Start 07/05/16 at 09:00 Magnesium Oxide (Mag-Ox 400) 200 mg DAILY PO Last administered on 07/06/16 09: 31; Admin Dose 200 MG; Start 07/05/16 at 12:00; Stop 07/12/16 at 08:00 Fluconazole 100 mg 100 mg DAILY PO Last administered on 07/06/16 09:31; Admin Dose 100 MG; Start 07/05/16 at 14:00 Meropenem 100 ml @ 200 mls/hr Q8 IVPB Last administered on 07/06/16 05:42; Admin Dose 200 MLS/HR; Start 07/05/16 at 14:00 Vancomycin HCl (Vancocin) 250 ml @ 125 mls/hr Q24H IVPB Last administered on 15:14; Admin Dose 125 MLS/HR; Start 07/05/16 at 14:30 Lansoprazole (Prevacid) 30 mg DAILY@06 GTB Last administered on 07/06/16 05:42 ; Admin Dose 30 MG; Start 07/06/16 at 06:00 Assessment/Plan Chief Complaint/Hosp Course Assessment 1. Vent dependent respiratory failure with evidence of healthcare associated pneumonia 2. Status post bowel perforation with drainage, persistent leukocytosis 3. Ongoing sepsis as above 4. Chronic atrial fibrillation 5. Decubitus ulcers 6. Dysphagia with G-tube 7. Anemia worsening no evidence of GI bleed Status post transfusion Plan 1. Continue mechanical ventilation 2. Continue broad-spectrum antibiotics per infectious diseases 3. Surgical recommendations regarding abdominal drains 4. Palliative care consult appreciated 5. DVT and GI prophylaxis 6. Stable post transfusion Disposition Continue current care Appreciate palliative care input Problems: KAVON TROY MD, [facility] July 06, 2016 12:38
--- NOTE | 2016-07-06 13:24 | CONS ---
Date/Time of Note Date/Time of Note DATE: 07/06/16 TIME: 13:23 Assessment/Plan Assessment/Plan Chief Complaint/Hosp Course SUBJECTIVE: No acute changes. No fevers. The patient is nonverbal, noncommunicative, nad. MICROBIOLOGY: Blood culture on 06/30/2016 negative. Urine culture negative. Endotracheal aspirate grew Acinetobacter baumannii and Klebsiella pneumoniae. INDWELLINGS: Trach, PEG, Alfonso, PICC line, rectal tube. Abx: Flagyl, Colistin INH, Vanco, Merrem, Diflucan PHYSICAL EXAMINATION: GENERAL: This is a fragile, chronically ill-appearing, elderly man who is in no distress. HEENT: Head atraumatic, normocephalic. Sclerae anicteric. Buccal mucosa dry. NECK: Supple. Tracheostomy present. CHEST: Rise symmetrical. Breath sounds diminished to bases. HEART: S1, S2. ABDOMEN: Soft. Bowel tones hypoactive. EXTREMITIES: With trace edema. ASSESSMENT: 1. Systemic inflammatory response syndrome with persistent leukocytosis, possible Clostridium difficile colitis given persistent diarrhea and long-term intravenous antibiotics. 2. Chronic respiratory failure, status post pneumonia, with endotracheal aspirate growing multi-drug resistant organisms, on colistin inhalation. 3. Status post intra-abdominal abscess drainage. 4. Sacral decubitus. 5. Atrial fibrillation. 6. Acute on chronic anemia. 7. Status post methicillin-resistant Staphylococcus aureus bacteremia and urinary tract infection on admission. PLAN: Clinically unchanged, continue present care, abx consider dc PICC DW staff Problems: Consultation Date/Type/Reason Admit Date/Time Jun 06, 2016 at 08:08 Initial Consult Date 06/07/16 Type of Consultation: ID Referring Provider: HOLLI LINDER MD Exam/Review of Systems Vital Signs Vitals Vital Signs Date Time Temp Pulse Resp B/P Pulse Ox O2 Delivery O2 Flow Rate FiO2 07/06/16 12:00 78 07/06/16 11:49 98.2 19 120/56 96 07/06/16 11:10 30 Intake and Output 07/05/16 07/05/16 07/06/16 15:00 23:00 07:00 Intake Total 3280 ml Output Total 1600 ml Balance 1680 ml Results Result Diagram: 07/06/16 0645 07/06/16 0645 Results 24 hrs Laboratory Tests Test 07/05/16 22:11 07/06/16 06:45 07/06/16 09:26 Bedside Glucose 93 89 White Blood Count 26.7 H Red Blood Count 3.10 L Hemoglobin 8.9 L Hematocrit 29.2 L Mean Corpuscular Volume 94.2 Mean Corpuscular Hemoglobin 28.7 L Mean Corpuscular Hemoglobin Concent 30.5 L Red Cell Distribution Width 19.0 H Platelet Count 560 H Mean Platelet Volume 11.2 H Neutrophils % 60.6 Lymphocytes % 8.5 L Monocytes % 8.1 Eosinophils % 0.9 Basophils % 0.2 Nucleated Red Blood Cells % 0.3 H Neutrophils # 16.2 H Lymphocytes # 2.3 Monocytes # 2.2 H Eosinophils # 0.2 Basophils # 0.1 Nucleated Red Blood Cells # 0.1 H Sodium Level 140 Potassium Level 4.3 Chloride Level 117 H Carbon Dioxide Level 22 Anion Gap 5 #L Blood Urea Nitrogen 39 H Creatinine 0.93 Glucose Level 84 Calcium Level 6.1 L Magnesium Level 1.9 Medications Medications Current Medications Naloxone HCl (Narcan) 0.4 mg Q3M PRN IV DECREASED REPIRATORY RATE; Start at 10:30 Ondansetron HCl (Zofran Inj) 4 mg Q6H PRN IV NAUSEA AND/OR VOMITING; Start 01/12 at 10:30 Nitroglycerin (Nitroglycerin (Sl Tab) 0.4 Mg) 1 tab Q5M PRN SL CHEST PAIN; Start 06/06/16 at 10:30 Acetaminophen (Tylenol Liquid) 650 mg Q6H PRN PO PAIN LEVEL 1-3 OR FEVER Last administered on 06/29/16 12:50; Admin Dose 650 MG; Start 06/06/16 at 10:30 Morphine Sulfate (morphine) 2 mg Q4H PRN IV PAIN LEVEL 7-10 Last administered on 06/15/16 00:22; Admin Dose 2 MG; Start 06/06/16 at 10:30 Docusate Sodium (Colace) 100 mg Q12H PRN PO CONSTIPATION; Start 06/06/16 at 10: 30 Magnesium Hydroxide (Milk Of Mag) 30 ml DAILY PRN PO CONSTIPATION; Start at 10:30 Bisacodyl (Dulcolax) 5 mg DAILY PRN PO CONSTIPATION; Start 06/06/16 at 10:30 Enoxaparin Sodium (Lovenox) 40 mg DAILY SC Last administered on 07/06/16 09:42 ; Admin Dose 40 MG; Start 06/07/16 at 09:00 Collagenase (Santyl) 1 applic DAILY TOP Last administered on 07/06/16 09:33; Admin Dose 1 APPLIC; Start 06/07/16 at 09:00 Collagenase (Santyl) 1 applic PRN PRN TOP WOUND CARE; Start 06/06/16 at 16:00 IV Flush (NS 10 ml) 10 ml PRN PRN IV IV PROTOCOL; Start 06/06/16 at 18:30 Ascorbic Acid (Vitamin C) 500 mg DAILY GTB Last administered on 07/06/16 09:31 ; Admin Dose 500 MG; Start 06/07/16 at 09:00 Aspirin (Aspirin) 325 mg DAILY GTB Last administered on 07/06/16 09:31; Admin Dose 325 MG; Start 06/07/16 at 09:00 Multivitamins (Thera-Plus) 5 ml DAILY GTB Last administered on 07/06/16 09:31 ; Admin Dose 5 ML; Start 06/07/16 at 09:00 Tamsulosin HCl (Flomax) 0.4 mg HS PO Last administered on 07/05/16 21:46; Admin Dose 0.4 MG; Start 06/07/16 at 21:00 Mupirocin (Bactroban) 1 applic BID TOP Last administered on 07/06/16 09:33; Admin Dose 1 APPLIC; Start 06/07/16 at 21:00 Metoclopramide HCl (Reglan) 10 mg Q6H PRN IV NAUSEA AND/OR VOMITING Last administered on 06/08/16 18:00; Admin Dose 10 MG; Start 06/08/16 at 09:30 Lorazepam (Ativan) 1 mg Q6H PRN IV AGITATION/ANXIETY Last administered on 12:34; Admin Dose 1 MG; Start 06/09/16 at 13:30 Midodrine (Proamatine) 5 mg TID@ GTB Last administered on 07/06/16 13: 14; Admin Dose 5 MG; Start 06/25/16 at 17:00 Citric Acid/ Sodium Citrate 30 ml 30 ml BID PO Last administered on 07/06/16 09:31; Admin Dose 30 ML; Start 06/26/16 at 21:00 Sodium Chloride (NS) 1,000 ml @ 125 mls/hr Q8H IV Last administered on 06:42; Admin Dose 125 MLS/HR; Start 06/29/16 at 15:30 Potassium Chloride (Potassium Chloride Pwd/Soln) 40 meq DAILY GTB Last administered on 07/06/16 09:32; Admin Dose 40 MEQ; Start 06/30/16 at 10:30 Atenolol 12.5 mg 12.5 mg BID PO Last administered on 07/06/16 09:33; Admin Dose 12.5 MG; Start 06/30/16 at 23:00 Metronidazole (Flagyl 500 Mg (Pmx)) 100 ml @ 100 mls/hr Q8 IVPB Last administered on 07/06/16 13:14; Admin Dose 100 MLS/HR; Start 07/03/16 at 14:00 Diagnostic Test (Pha) (Accu-Chek) 1 ea Q12 XX Last administered on 07/06/16 09 :00; Admin Dose 1 EA; Start 07/05/16 at 09:00 Magnesium Oxide (Mag-Ox 400) 200 mg DAILY PO Last administered on 07/06/16 09: 31; Admin Dose 200 MG; Start 07/05/16 at 12:00; Stop 07/12/16 at 08:00 Fluconazole 100 mg 100 mg DAILY PO Last administered on 07/06/16 09:31; Admin Dose 100 MG; Start 07/05/16 at 14:00 Meropenem 100 ml @ 200 mls/hr Q8 IVPB Last administered on 07/06/16 05:42; Admin Dose 200 MLS/HR; Start 07/05/16 at 14:00 Vancomycin HCl (Vancocin) 250 ml @ 125 mls/hr Q24H IVPB Last administered on 15:14; Admin Dose 125 MLS/HR; Start 07/05/16 at 14:30 Lansoprazole (Prevacid) 30 mg DAILY@06 GTB Last administered on 07/06/16 05:42 ; Admin Dose 30 MG; Start 07/06/16 at 06:00 JOSE G CUNNINGHAM NP July 06, 2016 13:24
--- NOTE | 2016-07-06 13:50 | CONS ---
Date/Time of Note Date/Time of Note DATE: 07/06/16 TIME: 13:44 Assessment/Plan Assessment/Plan Chief Complaint/Hosp Course IMp: 1.CHF-systolic acute on chonic-reasonable volume status at this time 2.Resp failure s/p trach on vent 3.Cardiomyopathy-LVEF 25-30% 4.HTN-with recurrent episodes of Hotn on midodrine 5.PPM-s/p interrogation with proper function-episodes of SVT and short episode VT 06/09/16/good battery life 6.Leukocytosis 7.Tachycardia-PAF/AFL rate controlled 8.Perforated viscous s/p IR drain now removed 9. Renal insuff-? overdiuresis-now improved and back to baseline 10. Wide complex tachy-NSVT today 06/30/16 Recc: -Tele -Continue abx's and f/u cx data and treat fevers -Continue atenolol as tolerated/possible only given ongoing recurrent tachy -Continue asa/low dose lovenox -Continue abx's/f/u cx data -Palliative care following -Now on midodrine BP support as necessary and thus continue for now -S/P dose IVP digoxin with improvement in HR control -Resume low dose gentle lasix diuresis and hold IVF hydration Problems: Consultation Date/Type/Reason Admit Date/Time Jun 06, 2016 at 08:08 Initial Consult Date 06/07/16 Type of Consultation: Cardiology Reason for Consultation cardiomyopathy Referring Provider: HOLLI LINDER MD Exam/Review of Systems Vital Signs Vitals Vital Signs Date Time Temp Pulse Resp B/P Pulse Ox O2 Delivery O2 Flow Rate FiO2 07/06/16 12:00 78 07/06/16 11:49 98.2 19 120/56 96 07/06/16 11:10 30 Intake and Output 07/05/16 07/05/16 07/06/16 15:00 23:00 07:00 Intake Total 3280 ml Output Total 1600 ml Balance 1680 ml Exam Review of Systems: CONSTITUTIONAL: No fevers, chills. PULMONARY: No sob CARDIOVASCULAR: No chest pain/palpitations GASTROINTESTINAL: No nausea/vomiting. GENITOURINARY: No hematuria/dysuria. MUSCULOSKELETAL: No myagias/arthalgias. PSYCHIATRIC: The patient denies depression. NEUROLOGIC: No weakness Constitutional: other (confused) Psych: no complaints Head: normocephalic ENMT: mucosa pink and moist Neck: jvd (9 cm water), supple Respiratory: diminished breath sounds (at bases/B) Cardiovascular: regular rate and rhythm Gastrointestinal: non-tender, soft Musculoskeletal: muscle tone (normal) Extremities: pitting pedal edema (Bilateral LE) Neurological: other (No focal deficits) Results Result Diagram: 07/06/16 0645 07/06/16 0645 Results 24 hrs Laboratory Tests Test 07/05/16 22:11 07/06/16 06:45 07/06/16 09:26 Bedside Glucose 93 89 White Blood Count 26.7 H Red Blood Count 3.10 L Hemoglobin 8.9 L Hematocrit 29.2 L Mean Corpuscular Volume 94.2 Mean Corpuscular Hemoglobin 28.7 L Mean Corpuscular Hemoglobin Concent 30.5 L Red Cell Distribution Width 19.0 H Platelet Count 560 H Mean Platelet Volume 11.2 H Neutrophils % 60.6 Lymphocytes % 8.5 L Monocytes % 8.1 Eosinophils % 0.9 Basophils % 0.2 Nucleated Red Blood Cells % 0.3 H Neutrophils # 16.2 H Lymphocytes # 2.3 Monocytes # 2.2 H Eosinophils # 0.2 Basophils # 0.1 Nucleated Red Blood Cells # 0.1 H Sodium Level 140 Potassium Level 4.3 Chloride Level 117 H Carbon Dioxide Level 22 Anion Gap 5 #L Blood Urea Nitrogen 39 H Creatinine 0.93 Glucose Level 84 Calcium Level 6.1 L Magnesium Level 1.9 Medications Medications Current Medications Naloxone HCl (Narcan) 0.4 mg Q3M PRN IV DECREASED REPIRATORY RATE; Start at 10:30 Ondansetron HCl (Zofran Inj) 4 mg Q6H PRN IV NAUSEA AND/OR VOMITING; Start 01/12 at 10:30 Nitroglycerin (Nitroglycerin (Sl Tab) 0.4 Mg) 1 tab Q5M PRN SL CHEST PAIN; Start 06/06/16 at 10:30 Acetaminophen (Tylenol Liquid) 650 mg Q6H PRN PO PAIN LEVEL 1-3 OR FEVER Last administered on 06/29/16 12:50; Admin Dose 650 MG; Start 06/06/16 at 10:30 Morphine Sulfate (morphine) 2 mg Q4H PRN IV PAIN LEVEL 7-10 Last administered on 06/15/16 00:22; Admin Dose 2 MG; Start 06/06/16 at 10:30 Docusate Sodium (Colace) 100 mg Q12H PRN PO CONSTIPATION; Start 06/06/16 at 10: 30 Magnesium Hydroxide (Milk Of Mag) 30 ml DAILY PRN PO CONSTIPATION; Start at 10:30 Bisacodyl (Dulcolax) 5 mg DAILY PRN PO CONSTIPATION; Start 06/06/16 at 10:30 Enoxaparin Sodium (Lovenox) 40 mg DAILY SC Last administered on 07/06/16 09:42 ; Admin Dose 40 MG; Start 06/07/16 at 09:00 Collagenase (Santyl) 1 applic DAILY TOP Last administered on 07/06/16 09:33; Admin Dose 1 APPLIC; Start 06/07/16 at 09:00 Collagenase (Santyl) 1 applic PRN PRN TOP WOUND CARE; Start 06/06/16 at 16:00 IV Flush (NS 10 ml) 10 ml PRN PRN IV IV PROTOCOL; Start 06/06/16 at 18:30 Ascorbic Acid (Vitamin C) 500 mg DAILY GTB Last administered on 07/06/16 09:31 ; Admin Dose 500 MG; Start 06/07/16 at 09:00 Aspirin (Aspirin) 325 mg DAILY GTB Last administered on 07/06/16 09:31; Admin Dose 325 MG; Start 06/07/16 at 09:00 Multivitamins (Thera-Plus) 5 ml DAILY GTB Last administered on 07/06/16 09:31 ; Admin Dose 5 ML; Start 06/07/16 at 09:00 Tamsulosin HCl (Flomax) 0.4 mg HS PO Last administered on 07/05/16 21:46; Admin Dose 0.4 MG; Start 06/07/16 at 21:00 Mupirocin (Bactroban) 1 applic BID TOP Last administered on 07/06/16 09:33; Admin Dose 1 APPLIC; Start 06/07/16 at 21:00 Metoclopramide HCl (Reglan) 10 mg Q6H PRN IV NAUSEA AND/OR VOMITING Last administered on 06/08/16 18:00; Admin Dose 10 MG; Start 06/08/16 at 09:30 Lorazepam (Ativan) 1 mg Q6H PRN IV AGITATION/ANXIETY Last administered on 12:34; Admin Dose 1 MG; Start 06/09/16 at 13:30 Midodrine (Proamatine) 5 mg TID@,, GTB Last administered on 07/06/16 13: 14; Admin Dose 5 MG; Start 06/25/16 at 17:00 Citric Acid/ Sodium Citrate 30 ml 30 ml BID PO Last administered on 07/06/16 09:31; Admin Dose 30 ML; Start 06/26/16 at 21:00 Sodium Chloride (NS) 1,000 ml @ 125 mls/hr Q8H IV Last administered on 06:42; Admin Dose 125 MLS/HR; Start 06/29/16 at 15:30 Potassium Chloride (Potassium Chloride Pwd/Soln) 40 meq DAILY GTB Last administered on 07/06/16 09:32; Admin Dose 40 MEQ; Start 06/30/16 at 10:30 Atenolol 12.5 mg 12.5 mg BID PO Last administered on 07/06/16 09:33; Admin Dose 12.5 MG; Start 06/30/16 at 23:00 Metronidazole (Flagyl 500 Mg (Pmx)) 100 ml @ 100 mls/hr Q8 IVPB Last administered on 07/06/16 13:14; Admin Dose 100 MLS/HR; Start 07/03/16 at 14:00 Diagnostic Test (Pha) (Accu-Chek) 1 ea Q12 XX Last administered on 07/06/16 09 :00; Admin Dose 1 EA; Start 07/05/16 at 09:00 Magnesium Oxide (Mag-Ox 400) 200 mg DAILY PO Last administered on 07/06/16 09: 31; Admin Dose 200 MG; Start 07/05/16 at 12:00; Stop 07/12/16 at 08:00 Fluconazole 100 mg 100 mg DAILY PO Last administered on 07/06/16 09:31; Admin Dose 100 MG; Start 07/05/16 at 14:00 Meropenem 100 ml @ 200 mls/hr Q8 IVPB Last administered on 07/06/16 05:42; Admin Dose 200 MLS/HR; Start 07/05/16 at 14:00 Vancomycin HCl (Vancocin) 250 ml @ 125 mls/hr Q24H IVPB Last administered on 15:14; Admin Dose 125 MLS/HR; Start 07/05/16 at 14:30 Lansoprazole (Prevacid) 30 mg DAILY@06 GTB Last administered on 07/06/16 05:42 ; Admin Dose 30 MG; Start 07/06/16 at 06:00 JAYA GORE July 06, 2016 13:50
[2016-07-06] MEDS: VANCOMYCIN 1 GM in NS 250 ML IVPB SCH (14:11)
--- NOTE | 2016-07-06 16:18 | PN ---
Date/Time of Note Date/Time of Note DATE: 07/06/16 TIME: 16:17 Assessment/Plan VTE Prophylaxis VTE Prophylaxis Intervention: other Lines/Catheters IV Catheter Type (from Nrsg): PICC Line Central line still needed: Yes Urinary Cath still in place: Yes Reason Cath still needed: other (indicate) Assessment/Plan Chief Complaint/Hosp Course IMPRESSION: 1. Sepsis 2. Pneumonia. aspiration 3. Leukocytosis. 4. Hematuria. better 5. Lactic acidosis. better 6. Respiratory failure. 7. Gastrostomy tube placement. 8. Anemia. 9. Atrial fibrillation. 10. History of congestive heart failure with decreased ejection fraction. 11. vdrf 12. History of paroxysmal atrial fibrillation. 13. The patient now has decubitus. 14 uti 15 polymirobial sepsis 16 pul edema BETTER 17 no gi bleed 18 hypokalemia better 19 diarrhea cdiff neg 20 HYPOCALCEMEIA plan per id iv fluid poor prognosis ck labs weaning per pulmonary and cardio surgery consult GT FEEDING per iD bicitra snf when stable poor prognosis lytes replacement Problems: Subjective 24 Hr Interval Summary Subjective hx not possible: other (ON VENT) Exam/Review of Systems Vital Signs Vitals Vital Signs Date Time Temp Pulse Resp B/P Pulse Ox O2 Delivery O2 Flow Rate FiO2 07/06/16 15:45 98.1 79 20 101/60 98 07/06/16 15:30 30 Intake and Output 07/05/16 07/05/16 07/06/16 15:00 23:00 07:00 Intake Total 3280 ml Output Total 1600 ml Balance 1680 ml Exam Respiratory: clear to auscultation Cardiovascular: regular rate and rhythm Gastrointestinal: soft Results Result Diagram: 07/06/16 0645 07/06/16 0645 Results 24 hrs Laboratory Tests Test 07/05/16 22:11 07/06/16 06:45 07/06/16 09:26 Bedside Glucose 93 89 White Blood Count 26.7 H Red Blood Count 3.10 L Hemoglobin 8.9 L Hematocrit 29.2 L Mean Corpuscular Volume 94.2 Mean Corpuscular Hemoglobin 28.7 L Mean Corpuscular Hemoglobin Concent 30.5 L Red Cell Distribution Width 19.0 H Platelet Count 560 H Mean Platelet Volume 11.2 H Neutrophils % 60.6 Lymphocytes % 8.5 L Monocytes % 8.1 Eosinophils % 0.9 Basophils % 0.2 Nucleated Red Blood Cells % 0.3 H Neutrophils # 16.2 H Lymphocytes # 2.3 Monocytes # 2.2 H Eosinophils # 0.2 Basophils # 0.1 Nucleated Red Blood Cells # 0.1 H Sodium Level 140 Potassium Level 4.3 Chloride Level 117 H Carbon Dioxide Level 22 Anion Gap 5 #L Blood Urea Nitrogen 39 H Creatinine 0.93 Glucose Level 84 Calcium Level 6.1 L Magnesium Level 1.9 Medications Medications Current Medications Naloxone HCl (Narcan) 0.4 mg Q3M PRN IV DECREASED REPIRATORY RATE; Start at 10:30 Ondansetron HCl (Zofran Inj) 4 mg Q6H PRN IV NAUSEA AND/OR VOMITING; Start 01/12 at 10:30 Nitroglycerin (Nitroglycerin (Sl Tab) 0.4 Mg) 1 tab Q5M PRN SL CHEST PAIN; Start 06/06/16 at 10:30 Acetaminophen (Tylenol Liquid) 650 mg Q6H PRN PO PAIN LEVEL 1-3 OR FEVER Last administered on 06/29/16 12:50; Admin Dose 650 MG; Start 06/06/16 at 10:30 Morphine Sulfate (morphine) 2 mg Q4H PRN IV PAIN LEVEL 7-10 Last administered on 06/15/16 00:22; Admin Dose 2 MG; Start 06/06/16 at 10:30 Docusate Sodium (Colace) 100 mg Q12H PRN PO CONSTIPATION; Start 06/06/16 at 10: 30 Magnesium Hydroxide (Milk Of Mag) 30 ml DAILY PRN PO CONSTIPATION; Start at 10:30 Bisacodyl (Dulcolax) 5 mg DAILY PRN PO CONSTIPATION; Start 06/06/16 at 10:30 Enoxaparin Sodium (Lovenox) 40 mg DAILY SC Last administered on 07/06/16 09:42 ; Admin Dose 40 MG; Start 06/07/16 at 09:00 Collagenase (Santyl) 1 applic DAILY TOP Last administered on 07/06/16 09:33; Admin Dose 1 APPLIC; Start 06/07/16 at 09:00 Collagenase (Santyl) 1 applic PRN PRN TOP WOUND CARE; Start 06/06/16 at 16:00 IV Flush (NS 10 ml) 10 ml PRN PRN IV IV PROTOCOL; Start 06/06/16 at 18:30 Ascorbic Acid (Vitamin C) 500 mg DAILY GTB Last administered on 07/06/16 09:31 ; Admin Dose 500 MG; Start 06/07/16 at 09:00 Aspirin (Aspirin) 325 mg DAILY GTB Last administered on 07/06/16 09:31; Admin Dose 325 MG; Start 06/07/16 at 09:00 Multivitamins (Thera-Plus) 5 ml DAILY GTB Last administered on 07/06/16 09:31 ; Admin Dose 5 ML; Start 06/07/16 at 09:00 Tamsulosin HCl (Flomax) 0.4 mg HS PO Last administered on 07/05/16 21:46; Admin Dose 0.4 MG; Start 06/07/16 at 21:00 Mupirocin (Bactroban) 1 applic BID TOP Last administered on 07/06/16 09:33; Admin Dose 1 APPLIC; Start 06/07/16 at 21:00 Metoclopramide HCl (Reglan) 10 mg Q6H PRN IV NAUSEA AND/OR VOMITING Last administered on 06/08/16 18:00; Admin Dose 10 MG; Start 06/08/16 at 09:30 Lorazepam (Ativan) 1 mg Q6H PRN IV AGITATION/ANXIETY Last administered on 12:34; Admin Dose 1 MG; Start 06/09/16 at 13:30 Midodrine (Proamatine) 5 mg TID@,, GTB Last administered on 07/06/16 13: 14; Admin Dose 5 MG; Start 06/25/16 at 17:00 Citric Acid/ Sodium Citrate (Bicitra) 30 ml BID PO Last administered on 09:31; Admin Dose 30 ML; Start 06/26/16 at 21:00 Potassium Chloride (Potassium Chloride Pwd/Soln) 40 meq DAILY GTB Last administered on 07/06/16 09:32; Admin Dose 40 MEQ; Start 06/30/16 at 10:30 Atenolol 12.5 mg 12.5 mg BID PO Last administered on 07/06/16 09:33; Admin Dose 12.5 MG; Start 06/30/16 at 23:00 Metronidazole (Flagyl 500 Mg (Pmx)) 100 ml @ 100 mls/hr Q8 IVPB Last administered on 07/06/16 13:14; Admin Dose 100 MLS/HR; Start 07/03/16 at 14:00 Diagnostic Test (Pha) (Accu-Chek) 1 ea Q12 XX Last administered on 07/06/16 09 :00; Admin Dose 1 EA; Start 07/05/16 at 09:00 Magnesium Oxide (Mag-Ox 400) 200 mg DAILY PO Last administered on 07/06/16 09: 31; Admin Dose 200 MG; Start 07/05/16 at 12:00; Stop 07/12/16 at 08:00 Fluconazole 100 mg 100 mg DAILY PO Last administered on 07/06/16 09:31; Admin Dose 100 MG; Start 07/05/16 at 14:00 Meropenem 100 ml @ 200 mls/hr Q8 IVPB Last administered on 07/06/16 14:11; Admin Dose 200 MLS/HR; Start 07/05/16 at 14:00 Vancomycin HCl (Vancocin) 250 ml @ 125 mls/hr Q24H IVPB Last administered on 14:11; Admin Dose 125 MLS/HR; Start 07/05/16 at 14:30 Lansoprazole (Prevacid) 30 mg DAILY@06 GTB Last administered on 07/06/16 05:42 ; Admin Dose 30 MG; Start 07/06/16 at 06:00 Furosemide (Lasix) 20 mg DAILY IV ; Start 07/07/16 at 09:00 HOLLI LINDER MD July 06, 2016 16:18
[2016-07-06] MEDS ORDERED: CALCIUM GLUCONATE 10% 1 GM in SOD CHLORIDE 0.9% 100 ML IVPB ONE (18:00)
[2016-07-06] MEDS: CALCIUM CARBONATE 500 MG CHEW TAB PO SCH (22:17)
[2016-07-06] MEDS: TAMSULOSIN (SR) 0.4 MG CAP PO SCH (22:17)
--- NOTE | 2016-07-06 22:31 | CONS ---
DATE OF ADMISSION: 06/06/2016 DATE OF CONSULTATION: 07/06/2016 HISTORY OF PRESENT ILLNESS: The patient is an 85-year-old male with a history of CHF, heart failure , atrial fibrillation, poor ejection fraction of 25% to 30%, status post tracheostomy and G-tube, ad mitted for recurrent pneumonia. Patient stayed in the hospital for a long period of time in between . Patient had a perforation which was contained by IR drainage on 06/11/2016, and a repeat CAT scan showed the perforation and/or fluid collection not completely resolved. GI consult was called in f or rectal bleeding. The patient had a rectal tube with a balloon inflated. No history could be obt ained from the patient. PAST MEDICAL HISTORY: Pneumonia, sacral decubitus ulcer, chronic atrial fibrillation, anemia, malnu trition, CHF with poor ejection fraction, status post G-tube and tracheostomy, and vent dependent re spiratory failure. PHYSICAL EXAMINATION: GENERAL: Obtunded. The patient is on vent. ABDOMEN: Benign. He has G-tube feeding. EXTREMITIES: No edema. NEUROLOGIC: Does not communicate. IMPRESSION: 1. Rectal bleeding, which is a new problem. 2. Status post perforated viscus with fluid collection, successfully treated by IR with drainage. 3. Pneumonia. 4. 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 5. Atrial fibrillation, which is chronic. 6. Ischemic cardiomyopathy with ejection fraction of 25% to 30%. LABORATORY DATA: Patient's WBC is still high at 26,000, hematocrit is 29. BNP is within normal farmer its. Alkaline phosphatase was mildly elevated to 144. Today's hematocrit is stable. He had a CAT scan of the abdomen and pelvis on 07/03/2016, which shows mesenteric infiltration and s ome pelvic fluid. G-tube was in the stomach. Bilateral pleural effusion, gallstones, and diffuse d egenerative joint disease. PLAN: Continue present care. We will monitor hematocrit. I told the staff nurse not to inflate th e balloon and just have the pouch with the rectal tube. If the bleeding continues and is significan t, then will do a colonoscopy. I reviewed all the medications. The patient is not on any kind of blood thinner except for the Love nox, and told them to stop Lovenox for the time being. Dictated By: NEVAEH CHIN/TRACY Conf#: [id number] [facility]#: [id number]
[2016-07-07] VITALS (24 sets, daily range): BP systolic 119–156; BP diastolic 60–95; PULSE 62–110; RESP 19–41
[2016-07-07] MEDS: ALBUTEROL 18 GM INHALER INH SCH ×6 (00:37→21:43)
[2016-07-07] MEDS: IPRATROPIUM (HFA) 12.9 GM INHALER INH SCH ×6 (00:37→21:43)
[2016-07-07] MEDS: metroNIDAZOLE 500 MG/NS (PMX) 100 ML IVPB SCH ×3 (06:25→21:03)
[2016-07-07] MEDS: LANSOPRAZOLE 30 MG CAP GTB SCH (06:25)
[2016-07-07] MEDS: MEROPENEM 500 MG/100 ML (PMX) 100 ML IVPB SCH ×2 (06:28→13:52)
[2016-07-07 07:12] LABS: ADD SCAN DIFF NO
[2016-07-07 07:20] LABS: ABNORMAL IP MESSAGE 1; HEMATOCRIT 28.9 % (42.0-52.0); HEMOGLOBIN 9.2 g/dl (14.0-18.0); MEAN CORPUSCULAR HEMOGLOBIN 29.3 pg (29.0-33.0); MEAN CORPUSCULAR HGB CONC 31.8 g/dl (32.0-37.0); MEAN PLATELET VOLUME 10.5 fl (7.4-10.4); PLATELET COUNT 616 10^3/UL (140-415); RED BLOOD COUNT 3.14 10^6/ul (4.70-6.10); RED CELL DISTRIBUTION WIDTH 18.6 % (11.5-14.5)
[2016-07-07 08:04] LABS: ALBUMIN 1.9 g/dl (3.3-4.9); ALBUMIN/GLOBULIN RATIO 0.65; BILIRUBIN,INDIRECT 0.1 mg/dl (0-1.1); BILIRUBIN,TOTAL 0.1 mg/dl (0.2-1.3); CREATININE 0.93 mg/dl (0.61-1.24); PHOSPHORUS 2.8 mg/dl (2.5-4.9); POTASSIUM 4.1 mmol/L (3.5-5.1); TOTAL PROTEIN 4.8 g/dl (6.1-8.1)
[2016-07-07] MEDS: MULTIVITAMINS 5 ML CUP GTB SCH (08:48)
[2016-07-07] MEDS: FUROSEMIDE 20 MG INJ IV SCH (08:48)
[2016-07-07] MEDS: ATENOLOL 25 MG TAB PO SCH ×2 (08:48→19:56)
[2016-07-07] MEDS: CITRIC ACID/SODIUM CITRATE 15 ML CUP PO SCH ×2 (08:48→19:56)
[2016-07-07] MEDS: ASCORBIC ACID 500 MG TAB GTB SCH (08:48)
[2016-07-07] MEDS: CALCIUM CARBONATE 500 MG CHEW TAB PO SCH ×2 (08:49→19:56)
[2016-07-07] MEDS: MAGNESIUM OXIDE 400 MG TAB PO SCH (08:49)
[2016-07-07] MEDS: FLUCONAZOLE 100 MG TAB PO SCH (08:49)
[2016-07-07] MEDS: ASPIRIN 325 MG TAB GTB SCH (08:49)
[2016-07-07] MEDS: CHOLECALCIFEROL 400 UNITS TAB PO SCH (08:49)
[2016-07-07] MEDS: POTASSIUM CHLORIDE 20 MEQ POWDER FOR ORAL SOLN GTB SCH (08:50)
[2016-07-07] MEDS: MIDODRINE 5 MG TAB GTB SCH ×3 (08:50→17:00)
[2016-07-07] MEDS: MUPIROCIN 2% 22 GM OINT TOP SCH ×2 (08:50→19:57)
[2016-07-07] MEDS: ACCU-CHEK XX SCH ×2 (08:51→19:57)
[2016-07-07] MEDS: COLLAGENASE 30 GM TUBE TOP SCH (08:51)
[2016-07-07 09:32] LABS: ANISOCYTOSIS 1+; EOSINOPHILS # 0.3 10^3/ul (0.0-0.5); LYMPHOCYTES # 3.2 10^3/ul (0.8-2.9); MONOCYTE # 1.6 10^3/ul (0.3-0.9); NEUTROPHIL # 20.8 10^3/ul (1.6-7.5)
[2016-07-07 09:33] LABS: PLATELET ESTIMATE PLT APPEAR; POLYCHROMASIA 1+
[2016-07-07] MEDS: COLISTIMETHATE (25 MG/ML INHAL SYG) NEB SCH ×2 (11:00→20:00)
[2016-07-07] MEDS: VANCOMYCIN 1 GM in NS 250 ML IVPB SCH (13:52)
--- NOTE | 2016-07-07 14:28 | PN ---
Date/Time of Note Date/Time of Note DATE: 07/06/16 TIME: 14:27 Assessment/Plan Lines/Catheters IV Catheter Type (from [facility]): PICC Line Alfonso in Place (from [facility]): Yes Assessment/Plan Chief Complaint/Hosp Course 1. Contained perforated viscous s/p IR drain 06/11. Cx noted. Leukocytosis resolved. Tube feeds. Bowel function. Drain dcd. s/p Abx. Persistent leukocytosis. Chemical code. -defer further w/u to primary team 2. Pneumonia -pulmonary toilette -abx 3. Sepsis, recent. Leukocytosis worsening again. -abx -as above 4. Sacral decubitus ulcer -off load -nutrition optimization -vit c -local care 5. Chronic AFib -rate control -optimize electrolytes -tx infections 6. Anemia, dropped again -? source -? tx 7. Hypoalbuminemia -eventual nutritional optimization 8. CHF -judicious fluid management -cardiac optimization Thank you, Late entry 07/06 Problems: Subjective 24 Hr Interval Summary Leukocytosis. No f/c. No cough. No sz. No rashes. No bloating. No vomiting. No bleeding. Bowel function. Exam/Review of Systems Vital Signs Vitals Vital Signs Date Time Temp Pulse Resp B/P Pulse Ox O2 Delivery O2 Flow Rate FiO2 07/07/16 13:20 60 25 98 30 07/07/16 11:28 98.3 119/79 Intake and Output 07/06/16 07/06/16 07/07/16 15:00 23:00 07:00 Intake Total 1050 ml 350 ml 1180 ml Output Total 800 ml 2600 ml Balance 250 ml 350 ml -1420 ml Exam Free Text/Dictation Constitutional: No distress, No oriented Psych: confusion, No anxiety Head: atraumatic, normocephalic Eyes: PERRL, nl conjunctiva, No icteric ENMT: mucosa pink and moist, nl external ears & nose, nl lips & teeth Neck: jvd (min), non-tender Respiratory: No congested cough, No labored breathing Cardiovascular: No edema, No regular rate and rhythm Gastrointestinal: soft, PEGNo distended, No firm, No rebound or guarding Musculoskeletal: No joint tenderness, No nl gait and stance Extremities: No calf tenderness, No cyanosis Neurological: No nl mental status, No nl speech, No nl strength Skin: nl turgor, rash or lesions (Sacral and LE decubitus ulcerations), No diaphoresis Lymph: nl lymph nodes Results Result Diagram: 07/07/16 0645 07/07/16 0645 DAREK AHMADI MD July 07, 2016 14:28
--- NOTE | 2016-07-07 14:29 | PN ---
Date/Time of Note Date/Time of Note DATE: 07/07/16 TIME: 14:28 Assessment/Plan Lines/Catheters IV Catheter Type (from [facility]): PICC Line Alfonso in Place (from [facility]): Yes Assessment/Plan Chief Complaint/Hosp Course 1. Contained perforated viscous s/p IR drain 06/11. Cx noted. Leukocytosis resolved. Tube feeds. Bowel function. Drain dcd. s/p Abx. Persistent leukocytosis. Chemical code. -defer further w/u to primary team 2. Pneumonia -pulmonary toilette -abx 3. Sepsis, recent. Leukocytosis worsening again. -abx -as above 4. Sacral decubitus ulcer -off load -nutrition optimization -vit c -local care 5. Chronic AFib -rate control -optimize electrolytes -tx infections 6. Anemia, dropped again -? source -? tx 7. Hypoalbuminemia -eventual nutritional optimization 8. CHF -judicious fluid management -cardiac optimization Thank you, Problems: Subjective 24 Hr Interval Summary Leukocytosis. No f/c. No cough. No sz. No rashes. No bloating. No vomiting. No bleeding. Bowel function. Exam/Review of Systems Vital Signs Vitals Vital Signs Date Time Temp Pulse Resp B/P Pulse Ox O2 Delivery O2 Flow Rate FiO2 07/07/16 13:20 60 25 98 30 07/07/16 11:28 98.3 119/79 Intake and Output 07/06/16 07/06/16 07/07/16 15:00 23:00 07:00 Intake Total 1050 ml 350 ml 1180 ml Output Total 800 ml 2600 ml Balance 250 ml 350 ml -1420 ml Exam Free Text/Dictation Constitutional: No distress, No oriented Psych: confusion, No anxiety Head: atraumatic, normocephalic Eyes: PERRL, nl conjunctiva, No icteric ENMT: mucosa pink and moist, nl external ears & nose, nl lips & teeth Neck: jvd (min), non-tender Respiratory: No congested cough, No labored breathing Cardiovascular: No edema, No regular rate and rhythm Gastrointestinal: soft, PEGNo distended, No firm, No rebound or guarding Musculoskeletal: No joint tenderness, No nl gait and stance Extremities: No calf tenderness, No cyanosis Neurological: No nl mental status, No nl speech, No nl strength Skin: nl turgor, rash or lesions (Sacral and LE decubitus ulcerations), No diaphoresis Lymph: nl lymph nodes Results Result Diagram: 07/07/16 0645 07/07/16 0645 DAREK AHMADI MD July 07, 2016 14:29
--- NOTE | 2016-07-07 14:40 | CONS ---
Date/Time of Note Date/Time of Note DATE: 07/07/16 TIME: 14:38 Assessment/Plan Assessment/Plan Chief Complaint/Hosp Course SUBJECTIVE: No acute changes. No fevers. The patient is nonverbal, noncommunicative, nad. MICROBIOLOGY: Blood culture on 06/30/2016 negative. Urine culture negative. Endotracheal aspirate grew Acinetobacter baumannii and Klebsiella pneumoniae. INDWELLINGS: Trach, PEG, Alfonso, PICC line, rectal tube. Abx: Flagyl, Colistin INH, Vanco, Merrem, Diflucan PHYSICAL EXAMINATION: GENERAL: This is a fragile, chronically ill-appearing, elderly man who is in no distress. HEENT: Head atraumatic, normocephalic. Sclerae anicteric. Buccal mucosa dry. NECK: Supple. Tracheostomy present. CHEST: Rise symmetrical. Breath sounds diminished to bases. HEART: S1, S2. ABDOMEN: Soft. Bowel tones hypoactive. EXTREMITIES: With trace edema. ASSESSMENT: 1. Systemic inflammatory response syndrome with persistent leukocytosis, possible Clostridium difficile colitis given persistent diarrhea and long-term intravenous antibiotics. 2. Chronic respiratory failure, status post pneumonia, with endotracheal aspirate growing multi-drug resistant organisms, on colistin inhalation. 3. Status post intra-abdominal abscess drainage. 4. Sacral decubitus. 5. Atrial fibrillation. 6. Acute on chronic anemia. 7. Status post methicillin-resistant Staphylococcus aureus bacteremia and urinary tract infection on admission. PLAN: Clinically unchanged, GI rec-s noted, will keep on Flagyl and Colistin INH and dc other abx, will dc PICC and order procalcitonin level. DW staff Problems: Consultation Date/Type/Reason Admit Date/Time Jun 06, 2016 at 08:08 Initial Consult Date 06/07/16 Type of Consultation: ID Referring Provider: HOLLI LINDER MD Exam/Review of Systems Vital Signs Vitals Vital Signs Date Time Temp Pulse Resp B/P Pulse Ox O2 Delivery O2 Flow Rate FiO2 07/07/16 13:20 60 25 98 30 07/07/16 11:28 98.3 119/79 Intake and Output 07/06/16 07/06/16 07/07/16 15:00 23:00 07:00 Intake Total 1050 ml 350 ml 1180 ml Output Total 800 ml 2600 ml Balance 250 ml 350 ml -1420 ml Results Result Diagram: 07/07/16 0645 07/07/16 0645 Results 24 hrs Laboratory Tests Test 07/06/16 22:24 07/07/16 06:45 07/07/16 08:46 Bedside Glucose 84 105 White Blood Count 27.0 H Red Blood Count 3.14 L Hemoglobin 9.2 L Hematocrit 28.9 L Mean Corpuscular Volume 92.0 Mean Corpuscular Hemoglobin 29.3 Mean Corpuscular Hemoglobin Concent 31.8 L Red Cell Distribution Width 18.6 H Platelet Count 616 H Mean Platelet Volume 10.5 H Neutrophils % 77.0 Band Neutrophils % 2.0 Lymphocytes % 12.0 L Monocytes % 6.0 Eosinophils % 1.0 Promyelocytes % 2.0 H Nucleated Red Blood Cells % 3.0 H Neutrophils # 20.8 H Lymphocytes # 3.2 H Monocytes # 1.6 H Eosinophils # 0.3 Promyelocytes # 0.5 Platelet Estimate PLT APPEAR Clumped Platelets Giant Platelets OCCASIONAL Polychromasia 1+ Anisocytosis 1+ Sodium Level 141 Potassium Level 4.1 Chloride Level 117 H Carbon Dioxide Level 21 Anion Gap 7 L Blood Urea Nitrogen 36 H Creatinine 0.93 Glucose Level 103 Calcium Level 7.0 L Phosphorus Level 2.8 Total Bilirubin 0.1 L Direct Bilirubin 0.00 Indirect Bilirubin 0.1 Aspartate Amino Transf (AST/SGOT) 30 Alanine Aminotransferase (ALT/SGPT) 33 Alkaline Phosphatase 202 H Total Protein 4.8 L Albumin 1.9 L Globulin 2.90 Albumin/Globulin Ratio 0.65 Medications Medications Current Medications Naloxone HCl (Narcan) 0.4 mg Q3M PRN IV DECREASED REPIRATORY RATE; Start at 10:30 Ondansetron HCl (Zofran Inj) 4 mg Q6H PRN IV NAUSEA AND/OR VOMITING; Start 01/12 at 10:30 Nitroglycerin (Nitroglycerin (Sl Tab) 0.4 Mg) 1 tab Q5M PRN SL CHEST PAIN; Start 06/06/16 at 10:30 Acetaminophen (Tylenol Liquid) 650 mg Q6H PRN PO PAIN LEVEL 1-3 OR FEVER Last administered on 06/29/16 12:50; Admin Dose 650 MG; Start 06/06/16 at 10:30 Morphine Sulfate (morphine) 2 mg Q4H PRN IV PAIN LEVEL 7-10 Last administered on 06/15/16 00:22; Admin Dose 2 MG; Start 06/06/16 at 10:30 Docusate Sodium (Colace) 100 mg Q12H PRN PO CONSTIPATION; Start 06/06/16 at 10: 30 Magnesium Hydroxide (Milk Of Mag) 30 ml DAILY PRN PO CONSTIPATION; Start at 10:30 Bisacodyl (Dulcolax) 5 mg DAILY PRN PO CONSTIPATION; Start 06/06/16 at 10:30 Collagenase (Santyl) 1 applic DAILY TOP Last administered on 07/07/16 08:51; Admin Dose 1 APPLIC; Start 06/07/16 at 09:00 Collagenase (Santyl) 1 applic PRN PRN TOP WOUND CARE; Start 06/06/16 at 16:00 IV Flush (NS 10 ml) 10 ml PRN PRN IV IV PROTOCOL; Start 06/06/16 at 18:30 Ascorbic Acid (Vitamin C) 500 mg DAILY GTB Last administered on 07/07/16 08:48 ; Admin Dose 500 MG; Start 06/07/16 at 09:00 Aspirin (Aspirin) 325 mg DAILY GTB Last administered on 07/07/16 08:49; Admin Dose 325 MG; Start 06/07/16 at 09:00 Multivitamins (Thera-Plus) 5 ml DAILY GTB Last administered on 07/07/16 08:48 ; Admin Dose 5 ML; Start 06/07/16 at 09:00 Tamsulosin HCl (Flomax) 0.4 mg HS PO Last administered on 07/06/16 22:17; Admin Dose 0.4 MG; Start 06/07/16 at 21:00 Mupirocin (Bactroban) 1 applic BID TOP Last administered on 07/07/16 08:50; Admin Dose 1 APPLIC; Start 06/07/16 at 21:00 Metoclopramide HCl (Reglan) 10 mg Q6H PRN IV NAUSEA AND/OR VOMITING Last administered on 06/08/16 18:00; Admin Dose 10 MG; Start 06/08/16 at 09:30 Lorazepam (Ativan) 1 mg Q6H PRN IV AGITATION/ANXIETY Last administered on 12:34; Admin Dose 1 MG; Start 06/09/16 at 13:30 Midodrine (Proamatine) 5 mg TID@09, GTB Last administered on 07/07/16 12: 57; Admin Dose 5 MG; Start 06/25/16 at 17:00 Citric Acid/ Sodium Citrate (Bicitra) 30 ml BID PO Last administered on 08:48; Admin Dose 30 ML; Start 06/26/16 at 21:00 Potassium Chloride (Potassium Chloride Pwd/Soln) 40 meq DAILY GTB Last administered on 07/07/16 08:50; Admin Dose 40 MEQ; Start 06/30/16 at 10:30 Atenolol 12.5 mg 12.5 mg BID PO Last administered on 07/07/16 08:48; Admin Dose 12.5 MG; Start 06/30/16 at 23:00 Metronidazole (Flagyl 500 Mg (Pmx)) 100 ml @ 100 mls/hr Q8 IVPB Last administered on 07/07/16 12:57; Admin Dose 100 MLS/HR; Start 07/03/16 at 14:00 Diagnostic Test (Pha) (Accu-Chek) 1 ea Q12 XX Last administered on 07/06/16 09 :00; Admin Dose 1 EA; Start 07/05/16 at 09:00 Magnesium Oxide (Mag-Ox 400) 200 mg DAILY PO Last administered on 07/07/16 08: 49; Admin Dose 200 MG; Start 07/05/16 at 12:00; Stop 07/12/16 at 08:00 Fluconazole 100 mg 100 mg DAILY PO Last administered on 07/07/16 08:49; Admin Dose 100 MG; Start 07/05/16 at 14:00 Meropenem 100 ml @ 200 mls/hr Q8 IVPB Last administered on 07/07/16 13:52; Admin Dose 200 MLS/HR; Start 07/05/16 at 14:00 Vancomycin HCl (Vancocin) 250 ml @ 125 mls/hr Q24H IVPB Last administered on 13:52; Admin Dose 125 MLS/HR; Start 07/05/16 at 14:30 Lansoprazole (Prevacid) 30 mg DAILY@06 GTB Last administered on 07/07/16 06:25 ; Admin Dose 30 MG; Start 07/06/16 at 06:00 Furosemide (Lasix) 20 mg DAILY IV Last administered on 07/07/16 08:48; Admin Dose 20 MG; Start 07/07/16 at 09:00 Calcium Carbonate (Tums) 1,000 mg BID PO Last administered on 07/07/16 08:49; Admin Dose 1,000 MG; Start 07/06/16 at 21:00 Cholecalciferol (Vitamin D) 800 units DAILY PO Last administered on 07/07/16 08:49; Admin Dose 800 UNITS; Start 07/07/16 at 09:00 Miscellaneous Information (*Rx Drug Level Order Reminder*) 1 ONCE ONCE XX ; Start 07/08/16 at 13:30; Stop 07/08/16 at 13:31 JOSE G CUNNINGHAM NP July 07, 2016 14:39
--- NOTE | 2016-07-07 14:45 | CONS ---
Date/Time of Note Date/Time of Note DATE: 07/07/16 TIME: 14:44 Consult Date/Type/Reason Admit Date/Time Jun 06, 2016 at 08:08 Initial Consult Date 06/07/16 Type of Consultation: Pulmonary ICU Ordering Provider: HOLLI LINDER MD Subjective Patient remains unchanged Objective Vital Signs Date Time Temp Pulse Resp B/P Pulse Ox O2 Delivery O2 Flow Rate FiO2 07/07/16 13:20 60 25 98 30 07/07/16 11:28 98.3 119/79 Intake and Output 07/06/16 07/06/16 07/07/16 15:00 23:00 07:00 Intake Total 1050 ml 350 ml 1180 ml Output Total 800 ml 2600 ml Balance 250 ml 350 ml -1420 ml Exam PHYSICAL EXAMINATION GENERAL: Elderly gentleman, on mechanical ventilation, VITAL SIGNS: see below. HEENT: Pupils equal, round, and reactive to light. Tracheostomy site clean and intact. CARDIAC: S1, S2, tachycardia. CHEST: Diminished air entry bilaterally. ABDOMEN: Mildly distended. Diminished bowel sounds no guarding or rebound EXTREMITIES: No cyanosis, clubbing edema +2 NEUROLOGIC: Generalized weakness Results/Medications Result Diagram: 07/07/16 0645 07/07/16 0645 Results 24 hrs Laboratory Tests Test 07/06/16 22:24 07/07/16 06:45 07/07/16 08:46 Bedside Glucose 84 105 White Blood Count 27.0 H Red Blood Count 3.14 L Hemoglobin 9.2 L Hematocrit 28.9 L Mean Corpuscular Volume 92.0 Mean Corpuscular Hemoglobin 29.3 Mean Corpuscular Hemoglobin Concent 31.8 L Red Cell Distribution Width 18.6 H Platelet Count 616 H Mean Platelet Volume 10.5 H Neutrophils % 77.0 Band Neutrophils % 2.0 Lymphocytes % 12.0 L Monocytes % 6.0 Eosinophils % 1.0 Promyelocytes % 2.0 H Nucleated Red Blood Cells % 3.0 H Neutrophils # 20.8 H Lymphocytes # 3.2 H Monocytes # 1.6 H Eosinophils # 0.3 Promyelocytes # 0.5 Platelet Estimate PLT APPEAR Clumped Platelets Giant Platelets OCCASIONAL Polychromasia 1+ Anisocytosis 1+ Sodium Level 141 Potassium Level 4.1 Chloride Level 117 H Carbon Dioxide Level 21 Anion Gap 7 L Blood Urea Nitrogen 36 H Creatinine 0.93 Glucose Level 103 Calcium Level 7.0 L Phosphorus Level 2.8 Total Bilirubin 0.1 L Direct Bilirubin 0.00 Indirect Bilirubin 0.1 Aspartate Amino Transf (AST/SGOT) 30 Alanine Aminotransferase (ALT/SGPT) 33 Alkaline Phosphatase 202 H Total Protein 4.8 L Albumin 1.9 L Globulin 2.90 Albumin/Globulin Ratio 0.65 Medications Current Medications Naloxone HCl (Narcan) 0.4 mg Q3M PRN IV DECREASED REPIRATORY RATE; Start at 10:30 Ondansetron HCl (Zofran Inj) 4 mg Q6H PRN IV NAUSEA AND/OR VOMITING; Start 01/12 at 10:30 Nitroglycerin (Nitroglycerin (Sl Tab) 0.4 Mg) 1 tab Q5M PRN SL CHEST PAIN; Start 06/06/16 at 10:30 Acetaminophen (Tylenol Liquid) 650 mg Q6H PRN PO PAIN LEVEL 1-3 OR FEVER Last administered on 06/29/16 12:50; Admin Dose 650 MG; Start 06/06/16 at 10:30 Morphine Sulfate (morphine) 2 mg Q4H PRN IV PAIN LEVEL 7-10 Last administered on 06/15/16 00:22; Admin Dose 2 MG; Start 06/06/16 at 10:30 Docusate Sodium (Colace) 100 mg Q12H PRN PO CONSTIPATION; Start 06/06/16 at 10: 30 Magnesium Hydroxide (Milk Of Mag) 30 ml DAILY PRN PO CONSTIPATION; Start at 10:30 Bisacodyl (Dulcolax) 5 mg DAILY PRN PO CONSTIPATION; Start 06/06/16 at 10:30 Collagenase (Santyl) 1 applic DAILY TOP Last administered on 07/07/16 08:51; Admin Dose 1 APPLIC; Start 06/07/16 at 09:00 Collagenase (Santyl) 1 applic PRN PRN TOP WOUND CARE; Start 06/06/16 at 16:00 IV Flush (NS 10 ml) 10 ml PRN PRN IV IV PROTOCOL; Start 06/06/16 at 18:30 Ascorbic Acid (Vitamin C) 500 mg DAILY GTB Last administered on 07/07/16 08:48 ; Admin Dose 500 MG; Start 06/07/16 at 09:00 Aspirin (Aspirin) 325 mg DAILY GTB Last administered on 07/07/16 08:49; Admin Dose 325 MG; Start 06/07/16 at 09:00 Multivitamins (Thera-Plus) 5 ml DAILY GTB Last administered on 07/07/16 08:48 ; Admin Dose 5 ML; Start 06/07/16 at 09:00 Tamsulosin HCl (Flomax) 0.4 mg HS PO Last administered on 07/06/16 22:17; Admin Dose 0.4 MG; Start 06/07/16 at 21:00 Mupirocin (Bactroban) 1 applic BID TOP Last administered on 07/07/16 08:50; Admin Dose 1 APPLIC; Start 06/07/16 at 21:00 Metoclopramide HCl (Reglan) 10 mg Q6H PRN IV NAUSEA AND/OR VOMITING Last administered on 06/08/16 18:00; Admin Dose 10 MG; Start 06/08/16 at 09:30 Lorazepam (Ativan) 1 mg Q6H PRN IV AGITATION/ANXIETY Last administered on 12:34; Admin Dose 1 MG; Start 06/09/16 at 13:30 Midodrine (Proamatine) 5 mg TID@,, GTB Last administered on 07/07/16 12: 57; Admin Dose 5 MG; Start 06/25/16 at 17:00 Citric Acid/ Sodium Citrate (Bicitra) 30 ml BID PO Last administered on 08:48; Admin Dose 30 ML; Start 06/26/16 at 21:00 Potassium Chloride (Potassium Chloride Pwd/Soln) 40 meq DAILY GTB Last administered on 07/07/16 08:50; Admin Dose 40 MEQ; Start 06/30/16 at 10:30 Atenolol 12.5 mg 12.5 mg BID PO Last administered on 07/07/16 08:48; Admin Dose 12.5 MG; Start 06/30/16 at 23:00 Metronidazole (Flagyl 500 Mg (Pmx)) 100 ml @ 100 mls/hr Q8 IVPB Last administered on 07/07/16 12:57; Admin Dose 100 MLS/HR; Start 07/03/16 at 14:00 Diagnostic Test (Pha) (Accu-Chek) 1 ea Q12 XX Last administered on 07/06/16 09 :00; Admin Dose 1 EA; Start 07/05/16 at 09:00 Magnesium Oxide (Mag-Ox 400) 200 mg DAILY PO Last administered on 07/07/16 08: 49; Admin Dose 200 MG; Start 07/05/16 at 12:00; Stop 07/12/16 at 08:00 Lansoprazole (Prevacid) 30 mg DAILY@06 GTB Last administered on 07/07/16 06:25 ; Admin Dose 30 MG; Start 07/06/16 at 06:00 Furosemide (Lasix) 20 mg DAILY IV Last administered on 07/07/16 08:48; Admin Dose 20 MG; Start 07/07/16 at 09:00 Calcium Carbonate (Tums) 1,000 mg BID PO Last administered on 07/07/16 08:49; Admin Dose 1,000 MG; Start 07/06/16 at 21:00 Cholecalciferol (Vitamin D) 800 units DAILY PO Last administered on 07/07/16 08:49; Admin Dose 800 UNITS; Start 07/07/16 at 09:00 Miscellaneous Information (*Rx Drug Level Order Reminder*) 1 ONCE ONCE XX ; Start 07/08/16 at 13:30; Stop 07/08/16 at 13:31 Assessment/Plan Chief Complaint/Hosp Course Assessment 1. Vent dependent respiratory failure with evidence of healthcare associated pneumonia 2. Status post bowel perforation with drainage, persistent leukocytosis 3. Ongoing sepsis as above 4. Chronic atrial fibrillation 5. Decubitus ulcers 6. Dysphagia with G-tube 7. Chronic encephalopathy Plan 1. Continue mechanical ventilation 2. Continue broad-spectrum antibiotics per infectious diseases 3. Surgical recommendations regarding abdominal drains 4. Palliative care consult appreciated 5. DVT and GI prophylaxis 6. Stable post transfusion Disposition Continue current care Overall prognosis very poor Problems: KAVON TROY MD, [facility] July 07, 2016 14:45
--- NOTE | 2016-07-07 15:40 | CONS ---
Date/Time of Note Date/Time of Note DATE: 07/07/16 TIME: 15:36 Assessment/Plan Assessment/Plan Chief Complaint/Hosp Course IMp: 1.CHF-systolic acute on chonic-reasonable volume status at this time 2.Resp failure s/p trach on vent 3.Cardiomyopathy-LVEF 25-30% 4.HTN-with recurrent episodes of Hotn on midodrine as necessary 5.PPM-s/p interrogation with proper function-episodes of SVT and short episode VT 06/09/16/good battery life 6.Leukocytosis 7.Tachycardia-PAF/AFL rate controlled 8.Perforated viscous s/p IR drain now removed 9. Renal insuff-? overdiuresis-now improved and back to baseline 10. Wide complex tachy-NSVT today 06/30/16 Recc: -Tele -Continue abx's and f/u cx data and treat fevers -Continue atenolol as tolerated/possible only given ongoing recurrent tachy -Continue asa/low dose lovenox -Continue abx's/f/u cx data -Palliative care following -Now on midodrine BP support as necessary and thus continue for now -S/P dose IVP digoxin with improvement in HR control -Contineu low dose gentle lasix diuresis and follow volume status closely Problems: Consultation Date/Type/Reason Admit Date/Time Jun 06, 2016 at 08:08 Initial Consult Date 06/07/16 Type of Consultation: Cardiology Reason for Consultation cardiomyopathy/CHF Referring Provider: HOLLI LINDER MD Exam/Review of Systems Vital Signs Vitals Vital Signs Date Time Temp Pulse Resp B/P Pulse Ox O2 Delivery O2 Flow Rate FiO2 07/07/16 15:28 98.2 87 19 137/93 95 07/07/16 13:20 30 Intake and Output 07/06/16 07/06/16 07/07/16 14:59 22:59 06:59 Intake Total 1050 ml 350 ml 1180 ml Output Total 800 ml 2600 ml Balance 250 ml 350 ml -1420 ml Exam Review of Systems: CONSTITUTIONAL: No fevers, chills. PULMONARY: No sob CARDIOVASCULAR: No chest pain/palpitations GASTROINTESTINAL: No nausea/vomiting. GENITOURINARY: No hematuria/dysuria. MUSCULOSKELETAL: No myagias/arthalgias. PSYCHIATRIC: The patient denies depression. NEUROLOGIC: encephalopathic/lethargic Constitutional: alert Psych: no complaints Head: normocephalic ENMT: mucosa pink and moist Neck: jvd (9 cm water), supple Respiratory: diminished breath sounds (at bases/B) Cardiovascular: regular rate and rhythm Gastrointestinal: non-tender, soft Musculoskeletal: muscle tone Extremities: other (None) Results Result Diagram: 07/07/16 0645 07/07/16 0645 Results 24 hrs Laboratory Tests Test 07/06/16 22:24 07/07/16 06:45 07/07/16 08:46 Bedside Glucose 84 105 White Blood Count 27.0 H Red Blood Count 3.14 L Hemoglobin 9.2 L Hematocrit 28.9 L Mean Corpuscular Volume 92.0 Mean Corpuscular Hemoglobin 29.3 Mean Corpuscular Hemoglobin Concent 31.8 L Red Cell Distribution Width 18.6 H Platelet Count 616 H Mean Platelet Volume 10.5 H Neutrophils % 77.0 Band Neutrophils % 2.0 Lymphocytes % 12.0 L Monocytes % 6.0 Eosinophils % 1.0 Promyelocytes % 2.0 H Nucleated Red Blood Cells % 3.0 H Neutrophils # 20.8 H Lymphocytes # 3.2 H Monocytes # 1.6 H Eosinophils # 0.3 Promyelocytes # 0.5 Platelet Estimate PLT APPEAR Clumped Platelets Giant Platelets OCCASIONAL Polychromasia 1+ Anisocytosis 1+ Sodium Level 141 Potassium Level 4.1 Chloride Level 117 H Carbon Dioxide Level 21 Anion Gap 7 L Blood Urea Nitrogen 36 H Creatinine 0.93 Glucose Level 103 Calcium Level 7.0 L Phosphorus Level 2.8 Total Bilirubin 0.1 L Direct Bilirubin 0.00 Indirect Bilirubin 0.1 Aspartate Amino Transf (AST/SGOT) 30 Alanine Aminotransferase (ALT/SGPT) 33 Alkaline Phosphatase 202 H Total Protein 4.8 L Albumin 1.9 L Globulin 2.90 Albumin/Globulin Ratio 0.65 Medications Medications Current Medications Naloxone HCl (Narcan) 0.4 mg Q3M PRN IV DECREASED REPIRATORY RATE; Start at 10:30 Ondansetron HCl (Zofran Inj) 4 mg Q6H PRN IV NAUSEA AND/OR VOMITING; Start 01/12 at 10:30 Nitroglycerin (Nitroglycerin (Sl Tab) 0.4 Mg) 1 tab Q5M PRN SL CHEST PAIN; Start 06/06/16 at 10:30 Acetaminophen (Tylenol Liquid) 650 mg Q6H PRN PO PAIN LEVEL 1-3 OR FEVER Last administered on 06/29/16 12:50; Admin Dose 650 MG; Start 06/06/16 at 10:30 Morphine Sulfate (morphine) 2 mg Q4H PRN IV PAIN LEVEL 7-10 Last administered on 06/15/16 00:22; Admin Dose 2 MG; Start 06/06/16 at 10:30 Docusate Sodium (Colace) 100 mg Q12H PRN PO CONSTIPATION; Start 06/06/16 at 10: 30 Magnesium Hydroxide (Milk Of Mag) 30 ml DAILY PRN PO CONSTIPATION; Start at 10:30 Bisacodyl (Dulcolax) 5 mg DAILY PRN PO CONSTIPATION; Start 06/06/16 at 10:30 Collagenase (Santyl) 1 applic DAILY TOP Last administered on 07/07/16 08:51; Admin Dose 1 APPLIC; Start 06/07/16 at 09:00 Collagenase (Santyl) 1 applic PRN PRN TOP WOUND CARE; Start 06/06/16 at 16:00 IV Flush (NS 10 ml) 10 ml PRN PRN IV IV PROTOCOL; Start 06/06/16 at 18:30 Ascorbic Acid (Vitamin C) 500 mg DAILY GTB Last administered on 07/07/16 08:48 ; Admin Dose 500 MG; Start 06/07/16 at 09:00 Aspirin (Aspirin) 325 mg DAILY GTB Last administered on 07/07/16 08:49; Admin Dose 325 MG; Start 06/07/16 at 09:00 Multivitamins (Thera-Plus) 5 ml DAILY GTB Last administered on 07/07/16 08:48 ; Admin Dose 5 ML; Start 06/07/16 at 09:00 Tamsulosin HCl (Flomax) 0.4 mg HS PO Last administered on 07/06/16 22:17; Admin Dose 0.4 MG; Start 06/07/16 at 21:00 Mupirocin (Bactroban) 1 applic BID TOP Last administered on 07/07/16 08:50; Admin Dose 1 APPLIC; Start 06/07/16 at 21:00 Metoclopramide HCl (Reglan) 10 mg Q6H PRN IV NAUSEA AND/OR VOMITING Last administered on 06/08/16 18:00; Admin Dose 10 MG; Start 06/08/16 at 09:30 Lorazepam (Ativan) 1 mg Q6H PRN IV AGITATION/ANXIETY Last administered on 12:34; Admin Dose 1 MG; Start 06/09/16 at 13:30 Midodrine (Proamatine) 5 mg TID@,,17 GTB Last administered on 07/07/16 12: 57; Admin Dose 5 MG; Start 06/25/16 at 17:00 Citric Acid/ Sodium Citrate (Bicitra) 30 ml BID PO Last administered on 08:48; Admin Dose 30 ML; Start 06/26/16 at 21:00 Potassium Chloride (Potassium Chloride Pwd/Soln) 40 meq DAILY GTB Last administered on 07/07/16 08:50; Admin Dose 40 MEQ; Start 06/30/16 at 10:30 Atenolol 12.5 mg 12.5 mg BID PO Last administered on 07/07/16 08:48; Admin Dose 12.5 MG; Start 06/30/16 at 23:00 Metronidazole (Flagyl 500 Mg (Pmx)) 100 ml @ 100 mls/hr Q8 IVPB Last administered on 07/07/16 12:57; Admin Dose 100 MLS/HR; Start 07/03/16 at 14:00 Diagnostic Test (Pha) (Accu-Chek) 1 ea Q12 XX Last administered on 07/06/16 09 :00; Admin Dose 1 EA; Start 07/05/16 at 09:00 Magnesium Oxide (Mag-Ox 400) 200 mg DAILY PO Last administered on 07/07/16 08: 49; Admin Dose 200 MG; Start 07/05/16 at 12:00; Stop 07/12/16 at 08:00 Lansoprazole (Prevacid) 30 mg DAILY@06 GTB Last administered on 07/07/16 06:25 ; Admin Dose 30 MG; Start 07/06/16 at 06:00 Furosemide (Lasix) 20 mg DAILY IV Last administered on 07/07/16 08:48; Admin Dose 20 MG; Start 07/07/16 at 09:00 Calcium Carbonate (Tums) 1,000 mg BID PO Last administered on 07/07/16 08:49; Admin Dose 1,000 MG; Start 07/06/16 at 21:00 Cholecalciferol (Vitamin D) 800 units DAILY PO Last administered on 07/07/16 08:49; Admin Dose 800 UNITS; Start 07/07/16 at 09:00 JAYA GORE July 07, 2016 15:40
--- NOTE | 2016-07-07 19:47 | PN ---
Date/Time of Note Date/Time of Note DATE: 07/07/16 TIME: 19:45 Assessment/Plan VTE Prophylaxis VTE Prophylaxis Intervention: SCD's Lines/Catheters IV Catheter Type (from Nrs): PICC Line Central line still needed: Yes Urinary Cath still in place: Yes Reason Cath still needed: urinary retention Assessment/Plan Chief Complaint/Hosp Course 1. Septic resolved 2. Pneumonia. aspiration, resolved 3. tracheostomy 4, GT 5. decubitus Problems: Assessment/Plan 1. transfer to rehab Subjective 24 Hr Interval Summary Subjective hx not possible: pt non-verbal Exam/Review of Systems Vital Signs Vitals Vital Signs Date Time Temp Pulse Resp B/P Pulse Ox O2 Delivery O2 Flow Rate FiO2 07/07/16 19:43 91 35 98 30 07/07/16 15:28 98.2 137/93 Intake and Output 07/06/16 07/06/16 07/07/16 14:59 22:59 06:59 Intake Total 1050 ml 350 ml 1180 ml Output Total 800 ml 2600 ml Balance 250 ml 350 ml -1420 ml Exam Constitutional: alert Head: normocephalic ENMT: nl external ears & nose Neck: supple Respiratory: diminished breath sounds Cardiovascular: regular rate and rhythm Results Result Diagram: 07/07/16 0645 07/07/16 0645 Results 24 hrs Laboratory Tests Test 07/06/16 22:24 07/07/16 06:45 07/07/16 08:46 Bedside Glucose 84 105 White Blood Count 27.0 H Red Blood Count 3.14 L Hemoglobin 9.2 L Hematocrit 28.9 L Mean Corpuscular Volume 92.0 Mean Corpuscular Hemoglobin 29.3 Mean Corpuscular Hemoglobin Concent 31.8 L Red Cell Distribution Width 18.6 H Platelet Count 616 H Mean Platelet Volume 10.5 H Neutrophils % 77.0 Band Neutrophils % 2.0 Lymphocytes % 12.0 L Monocytes % 6.0 Eosinophils % 1.0 Promyelocytes % 2.0 H Nucleated Red Blood Cells % 3.0 H Neutrophils # 20.8 H Lymphocytes # 3.2 H Monocytes # 1.6 H Eosinophils # 0.3 Promyelocytes # 0.5 Platelet Estimate PLT APPEAR Clumped Platelets Giant Platelets OCCASIONAL Polychromasia 1+ Anisocytosis 1+ Sodium Level 141 Potassium Level 4.1 Chloride Level 117 H Carbon Dioxide Level 21 Anion Gap 7 L Blood Urea Nitrogen 36 H Creatinine 0.93 Glucose Level 103 Calcium Level 7.0 L Phosphorus Level 2.8 Total Bilirubin 0.1 L Direct Bilirubin 0.00 Indirect Bilirubin 0.1 Aspartate Amino Transf (AST/SGOT) 30 Alanine Aminotransferase (ALT/SGPT) 33 Alkaline Phosphatase 202 H Total Protein 4.8 L Albumin 1.9 L Globulin 2.90 Albumin/Globulin Ratio 0.65 Medications Medications Current Medications Naloxone HCl (Narcan) 0.4 mg Q3M PRN IV DECREASED REPIRATORY RATE; Start at 10:30 Ondansetron HCl (Zofran Inj) 4 mg Q6H PRN IV NAUSEA AND/OR VOMITING; Start 01/12 at 10:30 Nitroglycerin (Nitroglycerin (Sl Tab) 0.4 Mg) 1 tab Q5M PRN SL CHEST PAIN; Start 06/06/16 at 10:30 Acetaminophen (Tylenol Liquid) 650 mg Q6H PRN PO PAIN LEVEL 1-3 OR FEVER Last administered on 06/29/16 12:50; Admin Dose 650 MG; Start 06/06/16 at 10:30 Morphine Sulfate (morphine) 2 mg Q4H PRN IV PAIN LEVEL 7-10 Last administered on 06/15/16 00:22; Admin Dose 2 MG; Start 06/06/16 at 10:30 Docusate Sodium (Colace) 100 mg Q12H PRN PO CONSTIPATION; Start 06/06/16 at 10: 30 Magnesium Hydroxide (Milk Of Mag) 30 ml DAILY PRN PO CONSTIPATION; Start at 10:30 Bisacodyl (Dulcolax) 5 mg DAILY PRN PO CONSTIPATION; Start 06/06/16 at 10:30 Collagenase (Santyl) 1 applic DAILY TOP Last administered on 07/07/16 08:51; Admin Dose 1 APPLIC; Start 06/07/16 at 09:00 Collagenase (Santyl) 1 applic PRN PRN TOP WOUND CARE; Start 06/06/16 at 16:00 IV Flush (NS 10 ml) 10 ml PRN PRN IV IV PROTOCOL; Start 06/06/16 at 18:30 Ascorbic Acid (Vitamin C) 500 mg DAILY GTB Last administered on 07/07/16 08:48 ; Admin Dose 500 MG; Start 06/07/16 at 09:00 Aspirin (Aspirin) 325 mg DAILY GTB Last administered on 07/07/16 08:49; Admin Dose 325 MG; Start 06/07/16 at 09:00 Multivitamins (Thera-Plus) 5 ml DAILY GTB Last administered on 07/07/16 08:48 ; Admin Dose 5 ML; Start 06/07/16 at 09:00 Tamsulosin HCl (Flomax) 0.4 mg HS PO Last administered on 07/06/16 22:17; Admin Dose 0.4 MG; Start 06/07/16 at 21:00 Mupirocin (Bactroban) 1 applic BID TOP Last administered on 07/07/16 08:50; Admin Dose 1 APPLIC; Start 06/07/16 at 21:00 Metoclopramide HCl (Reglan) 10 mg Q6H PRN IV NAUSEA AND/OR VOMITING Last administered on 06/08/16 18:00; Admin Dose 10 MG; Start 06/08/16 at 09:30 Lorazepam (Ativan) 1 mg Q6H PRN IV AGITATION/ANXIETY Last administered on 12:34; Admin Dose 1 MG; Start 06/09/16 at 13:30 Citric Acid/ Sodium Citrate (Bicitra) 30 ml BID PO Last administered on 08:48; Admin Dose 30 ML; Start 06/26/16 at 21:00 Potassium Chloride (Potassium Chloride Pwd/Soln) 40 meq DAILY GTB Last administered on 07/07/16 08:50; Admin Dose 40 MEQ; Start 06/30/16 at 10:30 Atenolol 12.5 mg 12.5 mg BID PO Last administered on 07/07/16 08:48; Admin Dose 12.5 MG; Start 06/30/16 at 23:00 Metronidazole (Flagyl 500 Mg (Pmx)) 100 ml @ 100 mls/hr Q8 IVPB Last administered on 07/07/16 12:57; Admin Dose 100 MLS/HR; Start 07/03/16 at 14:00 Diagnostic Test (Pha) (Accu-Chek) 1 ea Q12 XX Last administered on 07/06/16 09 :00; Admin Dose 1 EA; Start 07/05/16 at 09:00 Magnesium Oxide (Mag-Ox 400) 200 mg DAILY PO Last administered on 07/07/16 08: 49; Admin Dose 200 MG; Start 07/05/16 at 12:00; Stop 07/12/16 at 08:00 Lansoprazole (Prevacid) 30 mg DAILY@06 GTB Last administered on 07/07/16 06:25 ; Admin Dose 30 MG; Start 07/06/16 at 06:00 Furosemide (Lasix) 20 mg DAILY IV Last administered on 07/07/16 08:48; Admin Dose 20 MG; Start 07/07/16 at 09:00 Calcium Carbonate (Tums) 1,000 mg BID PO Last administered on 07/07/16 08:49; Admin Dose 1,000 MG; Start 07/06/16 at 21:00 Cholecalciferol (Vitamin D) 800 units DAILY PO Last administered on 07/07/16 08:49; Admin Dose 800 UNITS; Start 07/07/16 at 09:00 Midodrine (Proamatine) 5 mg TID@,,17 GTB ; Start 07/07/16 at 17:00 WANG BELL July 07, 2016 19:47
[2016-07-07] MEDS: TAMSULOSIN (SR) 0.4 MG CAP PO SCH (19:56)
[2016-07-07] MEDS: LORAZEPAM 2 MG INJ IV PRN (23:15)
[2016-07-08] VITALS (23 sets, daily range): BP systolic 115–136; BP diastolic 53–74; PULSE 60–92; RESP 11–31
[2016-07-08] MEDS: ALBUTEROL 18 GM INHALER INH SCH ×6 (01:12→20:09)
[2016-07-08] MEDS: IPRATROPIUM (HFA) 12.9 GM INHALER INH SCH ×6 (01:12→20:09)
[2016-07-08] MEDS: metroNIDAZOLE 500 MG/NS (PMX) 100 ML IVPB SCH ×3 (05:13→22:24)
[2016-07-08] MEDS: LANSOPRAZOLE 30 MG CAP GTB SCH (05:13)
[2016-07-08] MEDS: POTASSIUM CHLORIDE 20 MEQ POWDER FOR ORAL SOLN GTB SCH (08:34)
[2016-07-08] MEDS: MULTIVITAMINS 5 ML CUP GTB SCH (08:34)
[2016-07-08] MEDS: ATENOLOL 25 MG TAB PO SCH ×2 (08:35→21:10)
[2016-07-08] MEDS: CHOLECALCIFEROL 400 UNITS TAB PO SCH (08:35)
[2016-07-08] MEDS: FUROSEMIDE 20 MG INJ IV SCH (08:35)
[2016-07-08] MEDS: CALCIUM CARBONATE 500 MG CHEW TAB PO SCH ×2 (08:35→21:11)
[2016-07-08] MEDS: CITRIC ACID/SODIUM CITRATE 15 ML CUP PO SCH ×2 (08:35→21:09)
[2016-07-08] MEDS: ASPIRIN 325 MG TAB GTB SCH (08:35)
[2016-07-08] MEDS: MAGNESIUM OXIDE 400 MG TAB PO SCH (08:36)
[2016-07-08] MEDS: MUPIROCIN 2% 22 GM OINT TOP SCH ×2 (08:36→21:11)
[2016-07-08] MEDS: ASCORBIC ACID 500 MG TAB GTB SCH (08:36)
[2016-07-08] MEDS: ACCU-CHEK XX SCH ×2 (08:37→21:00)
[2016-07-08] MEDS: COLISTIMETHATE (25 MG/ML INHAL SYG) NEB SCH ×2 (08:51→20:08)
[2016-07-08] MEDS: MIDODRINE 5 MG TAB GTB SCH ×3 (09:00→17:00)
[2016-07-08] MEDS: COLLAGENASE 30 GM TUBE TOP SCH (09:00)
--- NOTE | 2016-07-08 13:58 | CONS ---
Date/Time of Note Date/Time of Note DATE: 07/08/16 TIME: 13:57 Assessment/Plan Assessment/Plan Additional Assessment/Plan IMPRESSION: 1. Rectal bleeding, which is a new problem. It is stable no further bleeding. 2. Status post perforated viscus with fluid collection, successfully treated by IR with drainage. 3. Pneumonia. 4. 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 5. Atrial fibrillation, which is chronic. 6. Ischemic cardiomyopathy with ejection fraction of 25% to 30%. Plan Monitor for any active GI bleeding Continue present care Consultation Date/Type/Reason Admit Date/Time Jun 06, 2016 at 08:08 Initial Consult Date 06/07/16 Type of Consultation: Cardiology Referring Provider: HOLLI LINDER MD 24 HR Interval Summary Constitutional: improved, no complaints Exam/Review of Systems Vital Signs Vitals Vital Signs Date Time Temp Pulse Resp B/P Pulse Ox O2 Delivery O2 Flow Rate FiO2 07/08/16 13:03 88 29 99 07/08/16 11:36 97.8 115/54 07/08/16 07:16 30 Intake and Output 07/07/16 07/07/16 07/08/16 15:00 23:00 07:00 Intake Total 1300 ml Output Total 20 ml 1500 ml Balance -20 ml -200 ml Exam Constitutional: alert, oriented, well developed Psych: nl mood/affect, no complaints Head: atraumatic, normocephalic Eyes: EOMI, PERRL, nl conjunctiva, nl lids, nl sclera ENMT: nl external ears & nose, nl lips & teeth, nl nasal mucosa & septum Neck: non-tender, supple Respiratory: clear to auscultation, normal air movement Cardiovascular: nl pulses, regular rate and rhythm Gastrointestinal: nl liver, spleen, non-tender, soft Musculoskeletal: nl extremities to inspection, nl gait and stance Extremities: normal pulses Neurological: [facility] NURSE II-XII intact, nl mental status, nl speech, nl strength Skin: nl turgor, No rash or lesions Lymph: nl lymph nodes Results Result Diagram: 07/07/16 0645 07/07/16 0645 Results 24 hrs Laboratory Tests Test 07/07/16 19:58 07/08/16 08:33 Bedside Glucose 111 109 Medications Medications Current Medications Naloxone HCl (Narcan) 0.4 mg Q3M PRN IV DECREASED REPIRATORY RATE; Start at 10:30 Ondansetron HCl (Zofran Inj) 4 mg Q6H PRN IV NAUSEA AND/OR VOMITING; Start 01/12 at 10:30 Nitroglycerin (Nitroglycerin (Sl Tab) 0.4 Mg) 1 tab Q5M PRN SL CHEST PAIN; Start 06/06/16 at 10:30 Acetaminophen (Tylenol Liquid) 650 mg Q6H PRN PO PAIN LEVEL 1-3 OR FEVER Last administered on 06/29/16 12:50; Admin Dose 650 MG; Start 06/06/16 at 10:30 Morphine Sulfate (morphine) 2 mg Q4H PRN IV PAIN LEVEL 7-10 Last administered on 06/15/16 00:22; Admin Dose 2 MG; Start 06/06/16 at 10:30 Docusate Sodium (Colace) 100 mg Q12H PRN PO CONSTIPATION; Start 06/06/16 at 10: 30 Magnesium Hydroxide (Milk Of Mag) 30 ml DAILY PRN PO CONSTIPATION; Start at 10:30 Bisacodyl (Dulcolax) 5 mg DAILY PRN PO CONSTIPATION; Start 06/06/16 at 10:30 Collagenase (Santyl) 1 applic DAILY TOP Last administered on 07/08/16 09:00; Admin Dose 1 APPLIC; Start 06/07/16 at 09:00 Collagenase (Santyl) 1 applic PRN PRN TOP WOUND CARE; Start 06/06/16 at 16:00 IV Flush (NS 10 ml) 10 ml PRN PRN IV IV PROTOCOL; Start 06/06/16 at 18:30 Ascorbic Acid (Vitamin C) 500 mg DAILY GTB Last administered on 07/08/16 08:36 ; Admin Dose 500 MG; Start 06/07/16 at 09:00 Aspirin (Aspirin) 325 mg DAILY GTB Last administered on 07/08/16 08:35; Admin Dose 325 MG; Start 06/07/16 at 09:00 Multivitamins (Thera-Plus) 5 ml DAILY GTB Last administered on 07/08/16 08:34 ; Admin Dose 5 ML; Start 06/07/16 at 09:00 Tamsulosin HCl (Flomax) 0.4 mg HS PO Last administered on 07/07/16 19:56; Admin Dose 0.4 MG; Start 06/07/16 at 21:00 Mupirocin (Bactroban) 1 applic BID TOP Last administered on 07/08/16 08:36; Admin Dose 1 APPLIC; Start 06/07/16 at 21:00 Metoclopramide HCl (Reglan) 10 mg Q6H PRN IV NAUSEA AND/OR VOMITING Last administered on 06/08/16 18:00; Admin Dose 10 MG; Start 06/08/16 at 09:30 Lorazepam (Ativan) 1 mg Q6H PRN IV AGITATION/ANXIETY Last administered on 23:15; Admin Dose 1 MG; Start 06/09/16 at 13:30 Citric Acid/ Sodium Citrate (Bicitra) 30 ml BID PO Last administered on 08:35; Admin Dose 30 ML; Start 06/26/16 at 21:00 Potassium Chloride (Potassium Chloride Pwd/Soln) 40 meq DAILY GTB Last administered on 07/08/16 08:34; Admin Dose 40 MEQ; Start 06/30/16 at 10:30 Atenolol 12.5 mg 12.5 mg BID PO Last administered on 07/08/16 08:35; Admin Dose 12.5 MG; Start 06/30/16 at 23:00 Metronidazole (Flagyl 500 Mg (Pmx)) 100 ml @ 100 mls/hr Q8 IVPB Last administered on 07/08/16 13:47; Admin Dose 100 MLS/HR; Start 07/03/16 at 14:00 Diagnostic Test (Pha) (Accu-Chek) 1 ea Q12 XX Last administered on 07/06/16 09 :00; Admin Dose 1 EA; Start 07/05/16 at 09:00 Magnesium Oxide (Mag-Ox 400) 200 mg DAILY PO Last administered on 07/08/16 08: 36; Admin Dose 200 MG; Start 07/05/16 at 12:00; Stop 07/12/16 at 08:00 Lansoprazole (Prevacid) 30 mg DAILY@06 GTB Last administered on 07/08/16 05:13 ; Admin Dose 30 MG; Start 07/06/16 at 06:00 Furosemide (Lasix) 20 mg DAILY IV Last administered on 07/08/16 08:35; Admin Dose 20 MG; Start 07/07/16 at 09:00 Calcium Carbonate (Tums) 1,000 mg BID PO Last administered on 07/08/16 08:35; Admin Dose 1,000 MG; Start 07/06/16 at 21:00 Cholecalciferol (Vitamin D) 800 units DAILY PO Last administered on 07/08/16 08:35; Admin Dose 800 UNITS; Start 07/07/16 at 09:00 Midodrine (Proamatine) 5 mg TID@, GTB Last administered on 07/08/16 13: 44; Admin Dose 5 MG; Start 07/07/16 at 17:00 NEVAEH WOODSON MD July 08, 2016 13:58
--- NOTE | 2016-07-08 14:09 | PN ---
Date/Time of Note Date/Time of Note DATE: 07/08/16 TIME: 14:08 Assessment/Plan VTE Prophylaxis VTE Prophylaxis Intervention: SCD's Lines/Catheters IV Catheter Type (from Nrsg): Saline Lock Urinary Cath still in place: Yes Reason Cath still needed: urinary retention Assessment/Plan Chief Complaint/Hosp Course 1. Septic resolved 2. Pneumonia. aspiration, resolved 3. tracheostomy 4, GT 5. decubitus Problems: Assessment/Plan 1. Placement issue Subjective 24 Hr Interval Summary Subjective hx not possible: pt non-verbal Exam/Review of Systems Vital Signs Vitals Vital Signs Date Time Temp Pulse Resp B/P Pulse Ox O2 Delivery O2 Flow Rate FiO2 07/08/16 13:03 88 29 99 07/08/16 11:36 97.8 115/54 07/08/16 07:16 30 Intake and Output 07/07/16 07/07/16 07/08/16 15:00 23:00 07:00 Intake Total 1300 ml Output Total 20 ml 1500 ml Balance -20 ml -200 ml Exam Constitutional: non-verbal ENMT: nl external ears & nose Respiratory: clear to auscultation, diminished breath sounds Cardiovascular: regular rate and rhythm Results Result Diagram: 07/07/16 0645 07/07/16 0645 Results 24 hrs Laboratory Tests Test 07/07/16 19:58 07/08/16 08:33 Bedside Glucose 111 109 Medications Medications Current Medications Naloxone HCl (Narcan) 0.4 mg Q3M PRN IV DECREASED REPIRATORY RATE; Start at 10:30 Ondansetron HCl (Zofran Inj) 4 mg Q6H PRN IV NAUSEA AND/OR VOMITING; Start 01/12 at 10:30 Nitroglycerin (Nitroglycerin (Sl Tab) 0.4 Mg) 1 tab Q5M PRN SL CHEST PAIN; Start 06/06/16 at 10:30 Acetaminophen (Tylenol Liquid) 650 mg Q6H PRN PO PAIN LEVEL 1-3 OR FEVER Last administered on 06/29/16 12:50; Admin Dose 650 MG; Start 06/06/16 at 10:30 Morphine Sulfate (morphine) 2 mg Q4H PRN IV PAIN LEVEL 7-10 Last administered on 06/15/16 00:22; Admin Dose 2 MG; Start 06/06/16 at 10:30 Docusate Sodium (Colace) 100 mg Q12H PRN PO CONSTIPATION; Start 06/06/16 at 10: 30 Magnesium Hydroxide (Milk Of Mag) 30 ml DAILY PRN PO CONSTIPATION; Start at 10:30 Bisacodyl (Dulcolax) 5 mg DAILY PRN PO CONSTIPATION; Start 06/06/16 at 10:30 Collagenase (Santyl) 1 applic DAILY TOP Last administered on 07/08/16 09:00; Admin Dose 1 APPLIC; Start 06/07/16 at 09:00 Collagenase (Santyl) 1 applic PRN PRN TOP WOUND CARE; Start 06/06/16 at 16:00 IV Flush (NS 10 ml) 10 ml PRN PRN IV IV PROTOCOL; Start 06/06/16 at 18:30 Ascorbic Acid (Vitamin C) 500 mg DAILY GTB Last administered on 07/08/16 08:36 ; Admin Dose 500 MG; Start 06/07/16 at 09:00 Aspirin (Aspirin) 325 mg DAILY GTB Last administered on 07/08/16 08:35; Admin Dose 325 MG; Start 06/07/16 at 09:00 Multivitamins (Thera-Plus) 5 ml DAILY GTB Last administered on 07/08/16 08:34 ; Admin Dose 5 ML; Start 06/07/16 at 09:00 Tamsulosin HCl (Flomax) 0.4 mg HS PO Last administered on 07/07/16 19:56; Admin Dose 0.4 MG; Start 06/07/16 at 21:00 Mupirocin (Bactroban) 1 applic BID TOP Last administered on 07/08/16 08:36; Admin Dose 1 APPLIC; Start 06/07/16 at 21:00 Metoclopramide HCl (Reglan) 10 mg Q6H PRN IV NAUSEA AND/OR VOMITING Last administered on 06/08/16 18:00; Admin Dose 10 MG; Start 06/08/16 at 09:30 Lorazepam (Ativan) 1 mg Q6H PRN IV AGITATION/ANXIETY Last administered on 23:15; Admin Dose 1 MG; Start 06/09/16 at 13:30 Citric Acid/ Sodium Citrate (Bicitra) 30 ml BID PO Last administered on 08:35; Admin Dose 30 ML; Start 06/26/16 at 21:00 Potassium Chloride (Potassium Chloride Pwd/Soln) 40 meq DAILY GTB Last administered on 07/08/16 08:34; Admin Dose 40 MEQ; Start 06/30/16 at 10:30 Atenolol 12.5 mg 12.5 mg BID PO Last administered on 07/08/16 08:35; Admin Dose 12.5 MG; Start 06/30/16 at 23:00 Metronidazole (Flagyl 500 Mg (Pmx)) 100 ml @ 100 mls/hr Q8 IVPB Last administered on 07/08/16 13:47; Admin Dose 100 MLS/HR; Start 07/03/16 at 14:00 Diagnostic Test (Pha) (Accu-Chek) 1 ea Q12 XX Last administered on 07/06/16 09 :00; Admin Dose 1 EA; Start 07/05/16 at 09:00 Magnesium Oxide (Mag-Ox 400) 200 mg DAILY PO Last administered on 07/08/16 08: 36; Admin Dose 200 MG; Start 07/05/16 at 12:00; Stop 07/12/16 at 08:00 Lansoprazole (Prevacid) 30 mg DAILY@06 GTB Last administered on 07/08/16 05:13 ; Admin Dose 30 MG; Start 07/06/16 at 06:00 Furosemide (Lasix) 20 mg DAILY IV Last administered on 07/08/16 08:35; Admin Dose 20 MG; Start 07/07/16 at 09:00 Calcium Carbonate (Tums) 1,000 mg BID PO Last administered on 07/08/16 08:35; Admin Dose 1,000 MG; Start 07/06/16 at 21:00 Cholecalciferol (Vitamin D) 800 units DAILY PO Last administered on 07/08/16 08:35; Admin Dose 800 UNITS; Start 07/07/16 at 09:00 Midodrine (Proamatine) 5 mg TID@, GTB Last administered on 07/08/16 13: 44; Admin Dose 5 MG; Start 07/07/16 at 17:00 WANG BELL July 08, 2016 14:09
--- NOTE | 2016-07-08 15:42 | CONS ---
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 HTN Cardiac dysrhythmias, Atrial fibrillation/a.flutter s/p PPM NSVT Hemodynamically stable Heart failure clinically compensated Continue Vent Support Continue Lasix as scheduled Continue Atenolol Continue Midodrine Continue aggressive Pulmonary Tolietry Continue nebs as scheduled Consultation Date/Type/Reason Admit Date/Time Jun 06, 2016 at 08:08 Constitutional: improved, no complaints Cardiovascular: no complaints Gastrointestinal: no complaints Genitourinary: no complaints Psychological: nl mood/affect, no complaints Social History Smoking Status: Unknown if ever smoked Exam/Review of Systems Vital Signs Vitals Vital Signs Date Time Temp Pulse Resp B/P Pulse Ox O2 Delivery O2 Flow Rate FiO2 07/08/16 13:03 88 29 99 07/08/16 11:36 97.8 115/54 07/08/16 07:16 30 Intake and Output 07/07/16 07/07/16 07/08/16 15:00 23:00 07:00 Intake Total 1300 ml Output Total 20 ml 1500 ml Balance -20 ml -200 ml Exam Constitutional: non-verbal Neck: other (Trach on Vent) Respiratory: other (Mechanical braeth sounds heard bilaterally) Cardiovascular: regular rate and rhythm Gastrointestinal: nl liver, spleen, non-tender, soft Extremities: normal pulses Results Result Diagram: 07/07/16 0645 07/07/16 0645 Results 24 hrs Laboratory Tests Test 07/07/16 19:58 07/08/16 08:33 Bedside Glucose 111 109 Medications Medications Current Medications Naloxone HCl (Narcan) 0.4 mg Q3M PRN IV DECREASED REPIRATORY RATE; Start at 10:30 Ondansetron HCl (Zofran Inj) 4 mg Q6H PRN IV NAUSEA AND/OR VOMITING; Start 01/12 at 10:30 Nitroglycerin (Nitroglycerin (Sl Tab) 0.4 Mg) 1 tab Q5M PRN SL CHEST PAIN; Start 06/06/16 at 10:30 Acetaminophen (Tylenol Liquid) 650 mg Q6H PRN PO PAIN LEVEL 1-3 OR FEVER Last administered on 06/29/16t 12:50; Admin Dose 650 MG; Start 06/06/16 at 10:30 Morphine Sulfate (morphine) 2 mg Q4H PRN IV PAIN LEVEL 7-10 Last administered on 06/15/16 00:22; Admin Dose 2 MG; Start 06/06/16 at 10:30 Docusate Sodium (Colace) 100 mg Q12H PRN PO CONSTIPATION; Start 06/06/16 at 10: 30 Magnesium Hydroxide (Milk Of Mag) 30 ml DAILY PRN PO CONSTIPATION; Start at 10:30 Bisacodyl (Dulcolax) 5 mg DAILY PRN PO CONSTIPATION; Start 06/06/16 at 10:30 Collagenase (Santyl) 1 applic DAILY TOP Last administered on 07/08/16 09:00; Admin Dose 1 APPLIC; Start 06/07/16 at 09:00 Collagenase (Santyl) 1 applic PRN PRN TOP WOUND CARE; Start 06/06/16 at 16:00 IV Flush (NS 10 ml) 10 ml PRN PRN IV IV PROTOCOL; Start 06/06/16 at 18:30 Ascorbic Acid (Vitamin C) 500 mg DAILY GTB Last administered on 07/08/16 08:36 ; Admin Dose 500 MG; Start 06/07/16 at 09:00 Aspirin (Aspirin) 325 mg DAILY GTB Last administered on 07/08/16 08:35; Admin Dose 325 MG; Start 06/07/16 at 09:00 Multivitamins (Thera-Plus) 5 ml DAILY GTB Last administered on 07/08/16 08:34 ; Admin Dose 5 ML; Start 06/07/16 at 09:00 Tamsulosin HCl (Flomax) 0.4 mg HS PO Last administered on 07/07/16 19:56; Admin Dose 0.4 MG; Start 06/07/16 at 21:00 Mupirocin (Bactroban) 1 applic BID TOP Last administered on 07/08/16 08:36; Admin Dose 1 APPLIC; Start 06/07/16 at 21:00 Metoclopramide HCl (Reglan) 10 mg Q6H PRN IV NAUSEA AND/OR VOMITING Last administered on 06/08/16 18:00; Admin Dose 10 MG; Start 06/08/16 at 09:30 Lorazepam (Ativan) 1 mg Q6H PRN IV AGITATION/ANXIETY Last administered on 23:15; Admin Dose 1 MG; Start 06/09/16 at 13:30 Citric Acid/ Sodium Citrate (Bicitra) 30 ml BID PO Last administered on 08:35; Admin Dose 30 ML; Start 06/26/16 at 21:00 Potassium Chloride (Potassium Chloride Pwd/Soln) 40 meq DAILY GTB Last administered on 07/08/16 08:34; Admin Dose 40 MEQ; Start 06/30/16 at 10:30 Atenolol 12.5 mg 12.5 mg BID PO Last administered on 07/08/16 08:35; Admin Dose 12.5 MG; Start 06/30/16 at 23:00 Metronidazole (Flagyl 500 Mg (Pmx)) 100 ml @ 100 mls/hr Q8 IVPB Last administered on 07/08/16 13:47; Admin Dose 100 MLS/HR; Start 07/03/16 at 14:00 Diagnostic Test (Pha) (Accu-Chek) 1 ea Q12 XX Last administered on 07/06/16 09 :00; Admin Dose 1 EA; Start 07/05/16 at 09:00 Magnesium Oxide (Mag-Ox 400) 200 mg DAILY PO Last administered on 07/08/16 08: 36; Admin Dose 200 MG; Start 07/05/16 at 12:00; Stop 07/12/16 at 08:00 Lansoprazole (Prevacid) 30 mg DAILY@06 GTB Last administered on 07/08/16 05:13 ; Admin Dose 30 MG; Start 07/06/16 at 06:00 Furosemide (Lasix) 20 mg DAILY IV Last administered on 07/08/16 08:35; Admin Dose 20 MG; Start 07/07/16 at 09:00 Calcium Carbonate (Tums) 1,000 mg BID PO Last administered on 07/08/16 08:35; Admin Dose 1,000 MG; Start 07/06/16 at 21:00 Cholecalciferol (Vitamin D) 800 units DAILY PO Last administered on 07/08/16 08:35; Admin Dose 800 UNITS; Start 07/07/16 at 09:00 Midodrine (Proamatine) 5 mg TID@,, GTB Last administered on 07/08/16 13: 44; Admin Dose 5 MG; Start 07/07/16 at 17:00 CHRISTIAN FERMIN M.D. July 08, 2016 15:42
--- NOTE | 2016-07-08 15:57 | CONS ---
Date/Time of Note Date/Time of Note DATE: 07/08/16 TIME: 15:55 Consult Date/Type/Reason Admit Date/Time Jun 06, 2016 at 08:08 Initial Consult Date 06/07/16 Type of Consultation: Pulm Ordering Provider: HOLLI LINDER MD Subjective No events. Objective Vital Signs Date Time Temp Pulse Resp B/P Pulse Ox O2 Delivery O2 Flow Rate FiO2 07/08/16 15:40 97.9 69 13 133/53 99 07/08/16 07:16 30 Intake and Output 07/07/16 07/07/16 07/08/16 15:00 23:00 07:00 Intake Total 1300 ml Output Total 20 ml 1500 ml Balance -20 ml -200 ml Exam HEENT: Pupils equal, round, and reactive to light. Tracheostomy site clean and intact. CARDIAC: S1, S2, tachycardia. CHEST: Diminished air entry bilaterally. ABDOMEN: Mildly distended. Diminished bowel sounds no guarding or rebound EXTREMITIES: No cyanosis, clubbing edema +2 Results/Medications Result Diagram: 07/07/16 0645 07/07/16 0645 Results 24 hrs Laboratory Tests Test 07/07/16 19:58 07/08/16 08:33 Bedside Glucose 111 109 Medications Current Medications Naloxone HCl (Narcan) 0.4 mg Q3M PRN IV DECREASED REPIRATORY RATE; Start at 10:30 Ondansetron HCl (Zofran Inj) 4 mg Q6H PRN IV NAUSEA AND/OR VOMITING; Start 01/12 at 10:30 Nitroglycerin (Nitroglycerin (Sl Tab) 0.4 Mg) 1 tab Q5M PRN SL CHEST PAIN; Start 06/06/16 at 10:30 Acetaminophen (Tylenol Liquid) 650 mg Q6H PRN PO PAIN LEVEL 1-3 OR FEVER Last administered on 06/29/16 12:50; Admin Dose 650 MG; Start 06/06/16 at 10:30 Morphine Sulfate (morphine) 2 mg Q4H PRN IV PAIN LEVEL 7-10 Last administered on 06/15/16 00:22; Admin Dose 2 MG; Start 06/06/16 at 10:30 Docusate Sodium (Colace) 100 mg Q12H PRN PO CONSTIPATION; Start 06/06/16 at 10: 30 Magnesium Hydroxide (Milk Of Mag) 30 ml DAILY PRN PO CONSTIPATION; Start at 10:30 Bisacodyl (Dulcolax) 5 mg DAILY PRN PO CONSTIPATION; Start 06/06/16 at 10:30 Collagenase (Santyl) 1 applic DAILY TOP Last administered on 07/08/16 09:00; Admin Dose 1 APPLIC; Start 06/07/16 at 09:00 Collagenase (Santyl) 1 applic PRN PRN TOP WOUND CARE; Start 06/06/16 at 16:00 IV Flush (NS 10 ml) 10 ml PRN PRN IV IV PROTOCOL; Start 06/06/16 at 18:30 Ascorbic Acid (Vitamin C) 500 mg DAILY GTB Last administered on 07/08/16 08:36 ; Admin Dose 500 MG; Start 06/07/16 at 09:00 Aspirin (Aspirin) 325 mg DAILY GTB Last administered on 07/08/16 08:35; Admin Dose 325 MG; Start 06/07/16 at 09:00 Multivitamins (Thera-Plus) 5 ml DAILY GTB Last administered on 07/08/16 08:34 ; Admin Dose 5 ML; Start 06/07/16 at 09:00 Tamsulosin HCl (Flomax) 0.4 mg HS PO Last administered on 07/07/16 19:56; Admin Dose 0.4 MG; Start 06/07/16 at 21:00 Mupirocin (Bactroban) 1 applic BID TOP Last administered on 07/08/16 08:36; Admin Dose 1 APPLIC; Start 06/07/16 at 21:00 Metoclopramide HCl (Reglan) 10 mg Q6H PRN IV NAUSEA AND/OR VOMITING Last administered on 06/08/16 18:00; Admin Dose 10 MG; Start 06/08/16 at 09:30 Lorazepam (Ativan) 1 mg Q6H PRN IV AGITATION/ANXIETY Last administered on 23:15; Admin Dose 1 MG; Start 06/09/16 at 13:30 Citric Acid/ Sodium Citrate (Bicitra) 30 ml BID PO Last administered on 08:35; Admin Dose 30 ML; Start 06/26/16 at 21:00 Potassium Chloride (Potassium Chloride Pwd/Soln) 40 meq DAILY GTB Last administered on 07/08/16 08:34; Admin Dose 40 MEQ; Start 06/30/16 at 10:30 Atenolol 12.5 mg 12.5 mg BID PO Last administered on 07/08/16 08:35; Admin Dose 12.5 MG; Start 06/30/16 at 23:00 Metronidazole (Flagyl 500 Mg (Pmx)) 100 ml @ 100 mls/hr Q8 IVPB Last administered on 07/08/16 13:47; Admin Dose 100 MLS/HR; Start 07/03/16 at 14:00 Diagnostic Test (Pha) (Accu-Chek) 1 ea Q12 XX Last administered on 07/06/16 09 :00; Admin Dose 1 EA; Start 07/05/16 at 09:00 Magnesium Oxide (Mag-Ox 400) 200 mg DAILY PO Last administered on 07/08/16 08: 36; Admin Dose 200 MG; Start 07/05/16 at 12:00; Stop 07/12/16 at 08:00 Lansoprazole (Prevacid) 30 mg DAILY@06 GTB Last administered on 07/08/16 05:13 ; Admin Dose 30 MG; Start 07/06/16 at 06:00 Furosemide (Lasix) 20 mg DAILY IV Last administered on 07/08/16 08:35; Admin Dose 20 MG; Start 07/07/16 at 09:00 Calcium Carbonate (Tums) 1,000 mg BID PO Last administered on 07/08/16 08:35; Admin Dose 1,000 MG; Start 07/06/16 at 21:00 Cholecalciferol (Vitamin D) 800 units DAILY PO Last administered on 07/08/16 08:35; Admin Dose 800 UNITS; Start 07/07/16 at 09:00 Midodrine (Proamatine) 5 mg TID@,, GTB Last administered on 07/08/16 13: 44; Admin Dose 5 MG; Start 07/07/16 at 17:00 Assessment/Plan Additional Assessment/Plan IMP: 1. Vent dependent respiratory failure with evidence of healthcare associated pneumonia 2. Status post bowel perforation with drainage, persistent leukocytosis 3. Ongoing sepsis as above 4. Chronic atrial fibrillation 5. Decubitus ulcers 6. Dysphagia with G-tube 7. Chronic encephalopathy RECS: 1. Continue mechanical ventilation 2. Continue broad-spectrum antibiotics per infectious diseases 3. BD's/CPT prn ARTHUR BANKS MD July 08, 2016 15:57
--- NOTE | 2016-07-08 19:52 | CONS ---
Date/Time of Note Date/Time of Note DATE: 07/08/16 TIME: 19:50 Assessment/Plan Assessment/Plan Chief Complaint/Hosp Course SUBJECTIVE: No acute changes. No fevers. The patient is nonverbal, noncommunicative, nad. MICROBIOLOGY: Blood culture on 06/30/2016 negative. Urine culture negative. Endotracheal aspirate grew Acinetobacter baumannii and Klebsiella pneumoniae. INDWELLINGS: Trach, PEG, Alfonso, rectal tube. Abx: Flagyl, Colistin INH PHYSICAL EXAMINATION: GENERAL: This is a fragile, chronically ill-appearing, elderly man who is in no distress. HEENT: Head atraumatic, normocephalic. Sclerae anicteric. Buccal mucosa dry. NECK: Supple. Tracheostomy present. CHEST: Rise symmetrical. Breath sounds diminished to bases. HEART: S1, S2. ABDOMEN: Soft. Bowel tones hypoactive. EXTREMITIES: With trace edema. ASSESSMENT: 1. Systemic inflammatory response syndrome with persistent leukocytosis, possible Clostridium difficile colitis given persistent diarrhea and long-term intravenous antibiotics. 2. Chronic respiratory failure, status post pneumonia, with endotracheal aspirate growing multi-drug resistant organisms, on colistin inhalation. 3. Status post intra-abdominal abscess drainage. 4. Sacral decubitus. 5. Atrial fibrillation. 6. Acute on chronic anemia. 7. Status post methicillin-resistant Staphylococcus aureus bacteremia and urinary tract infection on admission. PLAN: Clinically unchanged, PICC dc'd, continue Flagyl and Colistin INH, f/u labs and procalcitonin level. DW staff Problems: Consultation Date/Type/Reason Admit Date/Time Jun 06, 2016 at 08:08 Initial Consult Date 06/07/16 Type of Consultation: ID Referring Provider: HOLLI LINDER MD Exam/Review of Systems Vital Signs Vitals Vital Signs Date Time Temp Pulse Resp B/P Pulse Ox O2 Delivery O2 Flow Rate FiO2 07/08/16 17:41 90 30 99 30 07/08/16 15:40 97.9 133/53 Intake and Output 07/07/16 07/07/16 07/08/16 15:00 23:00 07:00 Intake Total 1300 ml Output Total 20 ml 1500 ml Balance -20 ml -200 ml Results Result Diagram: 07/07/16 0645 07/07/16 0645 Results 24 hrs Laboratory Tests Test 07/07/16 19:58 07/08/16 08:33 Bedside Glucose 111 109 Medications Medications Current Medications Naloxone HCl (Narcan) 0.4 mg Q3M PRN IV DECREASED REPIRATORY RATE; Start at 10:30 Ondansetron HCl (Zofran Inj) 4 mg Q6H PRN IV NAUSEA AND/OR VOMITING; Start 01/12 at 10:30 Nitroglycerin (Nitroglycerin (Sl Tab) 0.4 Mg) 1 tab Q5M PRN SL CHEST PAIN; Start 06/06/16 at 10:30 Acetaminophen (Tylenol Liquid) 650 mg Q6H PRN PO PAIN LEVEL 1-3 OR FEVER Last administered on 06/29/16 12:50; Admin Dose 650 MG; Start 06/06/16 at 10:30 Morphine Sulfate (morphine) 2 mg Q4H PRN IV PAIN LEVEL 7-10 Last administered on 06/15/16 00:22; Admin Dose 2 MG; Start 06/06/16 at 10:30 Docusate Sodium (Colace) 100 mg Q12H PRN PO CONSTIPATION; Start 06/06/16 at 10: 30 Magnesium Hydroxide (Milk Of Mag) 30 ml DAILY PRN PO CONSTIPATION; Start at 10:30 Bisacodyl (Dulcolax) 5 mg DAILY PRN PO CONSTIPATION; Start 06/06/16 at 10:30 Collagenase (Santyl) 1 applic DAILY TOP Last administered on 07/08/16 09:00; Admin Dose 1 APPLIC; Start 06/07/16 at 09:00 Collagenase (Santyl) 1 applic PRN PRN TOP WOUND CARE; Start 06/06/16 at 16:00 IV Flush (NS 10 ml) 10 ml PRN PRN IV IV PROTOCOL; Start 06/06/16 at 18:30 Ascorbic Acid (Vitamin C) 500 mg DAILY GTB Last administered on 07/08/16 08:36 ; Admin Dose 500 MG; Start 06/07/16 at 09:00 Aspirin (Aspirin) 325 mg DAILY GTB Last administered on 07/08/16 08:35; Admin Dose 325 MG; Start 06/07/16 at 09:00 Multivitamins (Thera-Plus) 5 ml DAILY GTB Last administered on 07/08/16 08:34 ; Admin Dose 5 ML; Start 06/07/16 at 09:00 Tamsulosin HCl (Flomax) 0.4 mg HS PO Last administered on 07/07/16 19:56; Admin Dose 0.4 MG; Start 06/07/16 at 21:00 Mupirocin (Bactroban) 1 applic BID TOP Last administered on 07/08/16 08:36; Admin Dose 1 APPLIC; Start 06/07/16 at 21:00 Metoclopramide HCl (Reglan) 10 mg Q6H PRN IV NAUSEA AND/OR VOMITING Last administered on 06/08/16 18:00; Admin Dose 10 MG; Start 06/08/16 at 09:30 Lorazepam (Ativan) 1 mg Q6H PRN IV AGITATION/ANXIETY Last administered on 23:15; Admin Dose 1 MG; Start 06/09/16 at 13:30 Citric Acid/ Sodium Citrate (Bicitra) 30 ml BID PO Last administered on 08:35; Admin Dose 30 ML; Start 06/26/16 at 21:00 Potassium Chloride (Potassium Chloride Pwd/Soln) 40 meq DAILY GTB Last administered on 07/08/16 08:34; Admin Dose 40 MEQ; Start 06/30/16 at 10:30 Atenolol 12.5 mg 12.5 mg BID PO Last administered on 07/08/16 08:35; Admin Dose 12.5 MG; Start 06/30/16 at 23:00 Metronidazole (Flagyl 500 Mg (Pmx)) 100 ml @ 100 mls/hr Q8 IVPB Last administered on 07/08/16 13:47; Admin Dose 100 MLS/HR; Start 07/03/16 at 14:00 Diagnostic Test (Pha) (Accu-Chek) 1 ea Q12 XX Last administered on 07/06/16 09 :00; Admin Dose 1 EA; Start 07/05/16 at 09:00 Magnesium Oxide (Mag-Ox 400) 200 mg DAILY PO Last administered on 07/08/16 08: 36; Admin Dose 200 MG; Start 07/05/16 at 12:00; Stop 07/12/16 at 08:00 Lansoprazole (Prevacid) 30 mg DAILY@06 GTB Last administered on 07/08/16 05:13 ; Admin Dose 30 MG; Start 07/06/16 at 06:00 Furosemide (Lasix) 20 mg DAILY IV Last administered on 07/08/16 08:35; Admin Dose 20 MG; Start 07/07/16 at 09:00 Calcium Carbonate (Tums) 1,000 mg BID PO Last administered on 07/08/16 08:35; Admin Dose 1,000 MG; Start 07/06/16 at 21:00 Cholecalciferol (Vitamin D) 800 units DAILY PO Last administered on 07/08/16 08:35; Admin Dose 800 UNITS; Start 07/07/16 at 09:00 Midodrine (Proamatine) 5 mg TID@, GTB Last administered on 07/08/16 13: 44; Admin Dose 5 MG; Start 07/07/16 at 17:00 JOSE G CUNNINGHAM NP July 08, 2016 19:52
[2016-07-08] MEDS: TAMSULOSIN (SR) 0.4 MG CAP PO SCH (21:10)
[2016-07-09] VITALS (25 sets, daily range): BP systolic 104–148; BP diastolic 56–62; PULSE 63–84; RESP 18–31
[2016-07-09] MEDS: IPRATROPIUM (HFA) 12.9 GM INHALER INH SCH ×6 (01:03→21:29)
[2016-07-09] MEDS: ALBUTEROL 18 GM INHALER INH SCH ×6 (01:03→21:29)
[2016-07-09] MEDS: LANSOPRAZOLE 30 MG CAP GTB SCH (06:20)
[2016-07-09] MEDS: metroNIDAZOLE 500 MG/NS (PMX) 100 ML IVPB SCH ×3 (06:20→22:02)
[2016-07-09] MEDS: POTASSIUM CHLORIDE 20 MEQ POWDER FOR ORAL SOLN GTB SCH (08:14)
[2016-07-09] MEDS: CITRIC ACID/SODIUM CITRATE 15 ML CUP PO SCH ×2 (08:14→21:39)
[2016-07-09] MEDS: MULTIVITAMINS 5 ML CUP GTB SCH (08:14)
[2016-07-09] MEDS: MAGNESIUM OXIDE 400 MG TAB PO SCH (08:14)
[2016-07-09] MEDS: FUROSEMIDE 20 MG INJ IV SCH (08:14)
[2016-07-09] MEDS: ASCORBIC ACID 500 MG TAB GTB SCH (08:15)
[2016-07-09] MEDS: ASPIRIN 325 MG TAB GTB SCH (08:15)
[2016-07-09] MEDS: CHOLECALCIFEROL 400 UNITS TAB PO SCH (08:15)
[2016-07-09] MEDS: CALCIUM CARBONATE 500 MG CHEW TAB PO SCH ×2 (08:15→21:39)
[2016-07-09] MEDS: ATENOLOL 25 MG TAB PO SCH ×2 (08:15→21:40)
[2016-07-09] MEDS: COLLAGENASE 30 GM TUBE TOP SCH (08:16)
[2016-07-09] MEDS: MUPIROCIN 2% 22 GM OINT TOP SCH ×2 (08:16→21:40)
[2016-07-09] MEDS: ACCU-CHEK XX SCH ×2 (08:16→21:40)
[2016-07-09] MEDS: MIDODRINE 5 MG TAB GTB SCH ×3 (08:17→17:00)
[2016-07-09] MEDS: COLISTIMETHATE (25 MG/ML INHAL SYG) NEB SCH ×2 (08:35→21:29)
--- NOTE | 2016-07-09 14:25 | CONS ---
Date/Time of Note Date/Time of Note DATE: 07/09/16 TIME: 14:24 Assessment/Plan Assessment/Plan Additional Assessment/Plan Acute exacerbation of CHF Combined systolic and diastolic heart failure VDRF HTN Cardiac dysrhythmias, Atrial fibrillation/a.flutter s/p PPM NSVT Hemodynamically stable Heart failure clinically compensated Continue Vent Support Continue Lasix as scheduled Continue Atenolol Continue Midodrine Continue aggressive Pulmonary Toiletry Keep Mag > 2 and Potassium > 4 Continue nebs as scheduled Consultation Date/Type/Reason Admit Date/Time Jun 06, 2016 at 08:08 Initial Consult Date 06/07/16 Type of Consultation: ID Referring Provider: HOLLI LINDER MD Exam/Review of Systems Vital Signs Vitals Vital Signs Date Time Temp Pulse Resp B/P Pulse Ox O2 Delivery O2 Flow Rate FiO2 07/09/16 12:18 63 07/09/16 11:54 22 98 30 07/09/16 11:28 98.3 125/58 Intake and Output 07/08/16 07/08/16 07/09/16 15:00 23:00 07:00 Intake Total 100 ml 900 ml 800 ml Output Total 50 ml 800 ml 1000 ml Balance 50 ml 100 ml -200 ml Exam Constitutional: non-verbal Neck: other (Trach on Vent) Respiratory: other (Mechanical braeth sounds heard bilaterally) Cardiovascular: regular rate and rhythm Gastrointestinal: nl liver, spleen, non-tender, soft Extremities: normal pulses Results Result Diagram: 07/07/16 0645 07/07/16 0645 Results 24 hrs Laboratory Tests Test 07/08/16 22:23 07/09/16 10:45 Bedside Glucose 91 93 Medications Medications Current Medications Naloxone HCl (Narcan) 0.4 mg Q3M PRN IV DECREASED REPIRATORY RATE; Start at 10:30 Ondansetron HCl (Zofran Inj) 4 mg Q6H PRN IV NAUSEA AND/OR VOMITING; Start 01/12 at 10:30 Nitroglycerin (Nitroglycerin (Sl Tab) 0.4 Mg) 1 tab Q5M PRN SL CHEST PAIN; Start 06/06/16 at 10:30 Acetaminophen (Tylenol Liquid) 650 mg Q6H PRN PO PAIN LEVEL 1-3 OR FEVER Last administered on 06/29/16t 12:50; Admin Dose 650 MG; Start 06/06/16 at 10:30 Morphine Sulfate (morphine) 2 mg Q4H PRN IV PAIN LEVEL 7-10 Last administered on 06/15/16 00:22; Admin Dose 2 MG; Start 06/06/16 at 10:30 Docusate Sodium (Colace) 100 mg Q12H PRN PO CONSTIPATION; Start 06/06/16 at 10: 30 Magnesium Hydroxide (Milk Of Mag) 30 ml DAILY PRN PO CONSTIPATION; Start at 10:30 Bisacodyl (Dulcolax) 5 mg DAILY PRN PO CONSTIPATION; Start 06/06/16 at 10:30 Collagenase (Santyl) 1 applic DAILY TOP Last administered on 07/09/16 08:16; Admin Dose 1 APPLIC; Start 06/07/16 at 09:00 Collagenase (Santyl) 1 applic PRN PRN TOP WOUND CARE; Start 06/06/16 at 16:00 IV Flush (NS 10 ml) 10 ml PRN PRN IV IV PROTOCOL; Start 06/06/16 at 18:30 Ascorbic Acid (Vitamin C) 500 mg DAILY GTB Last administered on 07/09/16 08:15 ; Admin Dose 500 MG; Start 06/07/16 at 09:00 Aspirin (Aspirin) 325 mg DAILY GTB Last administered on 07/09/16 08:15; Admin Dose 325 MG; Start 06/07/16 at 09:00 Multivitamins (Thera-Plus) 5 ml DAILY GTB Last administered on 07/09/16 08:14 ; Admin Dose 5 ML; Start 06/07/16 at 09:00 Tamsulosin HCl (Flomax) 0.4 mg HS PO Last administered on 07/08/16 21:10; Admin Dose 0.4 MG; Start 06/07/16 at 21:00 Mupirocin (Bactroban) 1 applic BID TOP Last administered on 07/09/16 08:16; Admin Dose 1 APPLIC; Start 06/07/16 at 21:00 Metoclopramide HCl (Reglan) 10 mg Q6H PRN IV NAUSEA AND/OR VOMITING Last administered on 06/08/16 18:00; Admin Dose 10 MG; Start 06/08/16 at 09:30 Lorazepam (Ativan) 1 mg Q6H PRN IV AGITATION/ANXIETY Last administered on 23:15; Admin Dose 1 MG; Start 06/09/16 at 13:30 Citric Acid/ Sodium Citrate (Bicitra) 30 ml BID PO Last administered on 08:14; Admin Dose 30 ML; Start 06/26/16 at 21:00 Potassium Chloride (Potassium Chloride Pwd/Soln) 40 meq DAILY GTB Last administered on 07/09/16 08:14; Admin Dose 40 MEQ; Start 06/30/16 at 10:30 Atenolol 12.5 mg 12.5 mg BID PO Last administered on 07/09/16 08:15; Admin Dose 12.5 MG; Start 06/30/16 at 23:00 Metronidazole (Flagyl 500 Mg (Pmx)) 100 ml @ 100 mls/hr Q8 IVPB Last administered on 07/09/16 13:15; Admin Dose 100 MLS/HR; Start 07/03/16 at 14:00 Diagnostic Test (Pha) (Accu-Chek) 1 ea Q12 XX Last administered on 07/08/16 21 :00; Admin Dose 1 EA; Start 07/05/16 at 09:00 Magnesium Oxide (Mag-Ox 400) 200 mg DAILY PO Last administered on 07/09/16 08: 14; Admin Dose 200 MG; Start 07/05/16 at 12:00; Stop 07/12/16 at 08:00 Lansoprazole (Prevacid) 30 mg DAILY@06 GTB Last administered on 07/09/16 06:20 ; Admin Dose 30 MG; Start 07/06/16 at 06:00 Furosemide (Lasix) 20 mg DAILY IV Last administered on 07/09/16 08:14; Admin Dose 20 MG; Start 07/07/16 at 09:00 Calcium Carbonate (Tums) 1,000 mg BID PO Last administered on 07/09/16 08:15; Admin Dose 1,000 MG; Start 07/06/16 at 21:00 Cholecalciferol (Vitamin D) 800 units DAILY PO Last administered on 07/09/16 08:15; Admin Dose 800 UNITS; Start 07/07/16 at 09:00 Midodrine (Proamatine) 5 mg TID@,,17 GTB Last administered on 07/09/16 08: 17; Admin Dose 5 MG; Start 07/07/16 at 17:00 CHRISTIAN FERMIN M.D. July 09, 2016 14:25
--- NOTE | 2016-07-09 14:37 | CONS ---
Date/Time of Note Date/Time of Note DATE: 07/09/16 TIME: 14:36 Assessment/Plan Assessment/Plan Additional Assessment/Plan Additional Assessment/Plan IMPRESSION: 1. Rectal bleeding, which is a new problem. It is stable no further bleeding. 2. Status post perforated viscus with fluid collection, successfully treated by IR with drainage. 3. Pneumonia. 4. 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 5. Atrial fibrillation, which is chronic. 6. Ischemic cardiomyopathy with ejection fraction of 25% to 30%. 7. Leukocytosis Plan Monitor for any active GI bleeding Continue present care Antibiotic as per ID Consultation Date/Type/Reason Admit Date/Time Jun 06, 2016 at 08:08 Initial Consult Date 06/07/16 Type of Consultation: ID Referring Provider: HOLLI LINDER MD 24 HR Interval Summary Subjective hx not possible: pt non-verbal Constitutional: improved Exam/Review of Systems Vital Signs Vitals Vital Signs Date Time Temp Pulse Resp B/P Pulse Ox O2 Delivery O2 Flow Rate FiO2 07/09/16 12:18 63 07/09/16 11:54 22 98 30 07/09/16 11:28 98.3 125/58 Intake and Output 07/08/16 07/08/16 07/09/16 15:00 23:00 07:00 Intake Total 100 ml 900 ml 800 ml Output Total 50 ml 800 ml 1000 ml Balance 50 ml 100 ml -200 ml Exam Constitutional: alert, oriented, well developed Psych: nl mood/affect, no complaints Head: atraumatic, normocephalic Eyes: EOMI, PERRL, nl conjunctiva, nl lids, nl sclera ENMT: nl external ears & nose, nl lips & teeth, nl nasal mucosa & septum Neck: non-tender, supple Respiratory: clear to auscultation, normal air movement Cardiovascular: nl pulses, regular rate and rhythm Gastrointestinal: nl liver, spleen, non-tender, soft Musculoskeletal: nl extremities to inspection, nl gait and stance Extremities: normal pulses Neurological: [employer] II-XII intact, nl mental status, nl speech, nl strength Skin: nl turgor, No rash or lesions Lymph: nl lymph nodes Results Result Diagram: 07/07/16 0645 07/07/16 0645 Results 24 hrs Laboratory Tests Test 07/08/16 22:23 07/09/16 10:45 Bedside Glucose 91 93 Medications Medications Current Medications Naloxone HCl (Narcan) 0.4 mg Q3M PRN IV DECREASED REPIRATORY RATE; Start at 10:30 Ondansetron HCl (Zofran Inj) 4 mg Q6H PRN IV NAUSEA AND/OR VOMITING; Start 01/12 at 10:30 Nitroglycerin (Nitroglycerin (Sl Tab) 0.4 Mg) 1 tab Q5M PRN SL CHEST PAIN; Start 06/06/16 at 10:30 Acetaminophen (Tylenol Liquid) 650 mg Q6H PRN PO PAIN LEVEL 1-3 OR FEVER Last administered on 06/29/16 12:50; Admin Dose 650 MG; Start 06/06/16 at 10:30 Morphine Sulfate (morphine) 2 mg Q4H PRN IV PAIN LEVEL 7-10 Last administered on 06/15/16 00:22; Admin Dose 2 MG; Start 06/06/16 at 10:30 Docusate Sodium (Colace) 100 mg Q12H PRN PO CONSTIPATION; Start 06/06/16 at 10: 30 Magnesium Hydroxide (Milk Of Mag) 30 ml DAILY PRN PO CONSTIPATION; Start at 10:30 Bisacodyl (Dulcolax) 5 mg DAILY PRN PO CONSTIPATION; Start 06/06/16 at 10:30 Collagenase (Santyl) 1 applic DAILY TOP Last administered on 07/09/16 08:16; Admin Dose 1 APPLIC; Start 06/07/16 at 09:00 Collagenase (Santyl) 1 applic PRN PRN TOP WOUND CARE; Start 06/06/16 at 16:00 IV Flush (NS 10 ml) 10 ml PRN PRN IV IV PROTOCOL; Start 06/06/16 at 18:30 Ascorbic Acid (Vitamin C) 500 mg DAILY GTB Last administered on 07/09/16 08:15 ; Admin Dose 500 MG; Start 06/07/16 at 09:00 Aspirin (Aspirin) 325 mg DAILY GTB Last administered on 07/09/16 08:15; Admin Dose 325 MG; Start 06/07/16 at 09:00 Multivitamins (Thera-Plus) 5 ml DAILY GTB Last administered on 07/09/16 08:14 ; Admin Dose 5 ML; Start 06/07/16 at 09:00 Tamsulosin HCl (Flomax) 0.4 mg HS PO Last administered on 07/08/16 21:10; Admin Dose 0.4 MG; Start 06/07/16 at 21:00 Mupirocin (Bactroban) 1 applic BID TOP Last administered on 07/09/16 08:16; Admin Dose 1 APPLIC; Start 06/07/16 at 21:00 Metoclopramide HCl (Reglan) 10 mg Q6H PRN IV NAUSEA AND/OR VOMITING Last administered on 06/08/16 18:00; Admin Dose 10 MG; Start 06/08/16 at 09:30 Lorazepam (Ativan) 1 mg Q6H PRN IV AGITATION/ANXIETY Last administered on 23:15; Admin Dose 1 MG; Start 06/09/16 at 13:30 Citric Acid/ Sodium Citrate (Bicitra) 30 ml BID PO Last administered on 08:14; Admin Dose 30 ML; Start 06/26/16 at 21:00 Potassium Chloride (Potassium Chloride Pwd/Soln) 40 meq DAILY GTB Last administered on 07/09/16 08:14; Admin Dose 40 MEQ; Start 06/30/16 at 10:30 Atenolol 12.5 mg 12.5 mg BID PO Last administered on 07/09/16 08:15; Admin Dose 12.5 MG; Start 06/30/16 at 23:00 Metronidazole (Flagyl 500 Mg (Pmx)) 100 ml @ 100 mls/hr Q8 IVPB Last administered on 07/09/16 13:15; Admin Dose 100 MLS/HR; Start 07/03/16 at 14:00 Diagnostic Test (Pha) (Accu-Chek) 1 ea Q12 XX Last administered on 07/08/16 21 :00; Admin Dose 1 EA; Start 07/05/16 at 09:00 Magnesium Oxide (Mag-Ox 400) 200 mg DAILY PO Last administered on 07/09/16 08: 14; Admin Dose 200 MG; Start 07/05/16 at 12:00; Stop 07/12/16 at 08:00 Lansoprazole (Prevacid) 30 mg DAILY@06 GTB Last administered on 07/09/16 06:20 ; Admin Dose 30 MG; Start 07/06/16 at 06:00 Furosemide (Lasix) 20 mg DAILY IV Last administered on 07/09/16 08:14; Admin Dose 20 MG; Start 07/07/16 at 09:00 Calcium Carbonate (Tums) 1,000 mg BID PO Last administered on 07/09/16 08:15; Admin Dose 1,000 MG; Start 07/06/16 at 21:00 Cholecalciferol (Vitamin D) 800 units DAILY PO Last administered on 07/09/16 08:15; Admin Dose 800 UNITS; Start 07/07/16 at 09:00 Midodrine (Proamatine) 5 mg TID@,, GTB Last administered on 07/09/16 08: 17; Admin Dose 5 MG; Start 07/07/16 at 17:00 NEVAEH WOODSON MD July 09, 2016 14:37
--- NOTE | 2016-07-09 15:03 | CONS ---
Date/Time of Note Date/Time of Note DATE: 07/09/16 TIME: 15:02 Consult Date/Type/Reason Admit Date/Time Jun 06, 2016 at 08:08 Initial Consult Date 06/07/16 Type of Consultation: Pulm Ordering Provider: HOLLI LINDER MD Subjective No events. Objective Vital Signs Date Time Temp Pulse Resp B/P Pulse Ox O2 Delivery O2 Flow Rate FiO2 07/09/16 13:19 78 27 98 30 07/09/16 11:28 98.3 125/58 Intake and Output 07/08/16 07/08/16 07/09/16 15:00 23:00 07:00 Intake Total 100 ml 900 ml 800 ml Output Total 50 ml 800 ml 1000 ml Balance 50 ml 100 ml -200 ml Exam HEENT: Pupils equal, round, and reactive to light. Tracheostomy site clean and intact. CARDIAC: Irreg Irreg S1 and S2 CHEST: Coarse BS b/l ABDOMEN: Mildly distended. Diminished bowel sounds no guarding or rebound EXTREMITIES: No cyanosis, clubbing edema +2 Results/Medications Result Diagram: 07/07/16 0645 07/07/16 0645 Results 24 hrs Laboratory Tests Test 07/08/16 22:23 07/09/16 10:45 Bedside Glucose 91 93 Medications Current Medications Naloxone HCl (Narcan) 0.4 mg Q3M PRN IV DECREASED REPIRATORY RATE; Start at 10:30 Ondansetron HCl (Zofran Inj) 4 mg Q6H PRN IV NAUSEA AND/OR VOMITING; Start 01/12 at 10:30 Nitroglycerin (Nitroglycerin (Sl Tab) 0.4 Mg) 1 tab Q5M PRN SL CHEST PAIN; Start 06/06/16 at 10:30 Acetaminophen (Tylenol Liquid) 650 mg Q6H PRN PO PAIN LEVEL 1-3 OR FEVER Last administered on 06/29/16 12:50; Admin Dose 650 MG; Start 06/06/16 at 10:30 Morphine Sulfate (morphine) 2 mg Q4H PRN IV PAIN LEVEL 7-10 Last administered on 06/15/16 00:22; Admin Dose 2 MG; Start 06/06/16 at 10:30 Docusate Sodium (Colace) 100 mg Q12H PRN PO CONSTIPATION; Start 06/06/16 at 10: 30 Magnesium Hydroxide (Milk Of Mag) 30 ml DAILY PRN PO CONSTIPATION; Start at 10:30 Bisacodyl (Dulcolax) 5 mg DAILY PRN PO CONSTIPATION; Start 06/06/16 at 10:30 Collagenase (Santyl) 1 applic DAILY TOP Last administered on 07/09/16 08:16; Admin Dose 1 APPLIC; Start 06/07/16 at 09:00 Collagenase (Santyl) 1 applic PRN PRN TOP WOUND CARE; Start 06/06/16 at 16:00 IV Flush (NS 10 ml) 10 ml PRN PRN IV IV PROTOCOL; Start 06/06/16 at 18:30 Ascorbic Acid (Vitamin C) 500 mg DAILY GTB Last administered on 07/09/16 08:15 ; Admin Dose 500 MG; Start 06/07/16 at 09:00 Aspirin (Aspirin) 325 mg DAILY GTB Last administered on 07/09/16 08:15; Admin Dose 325 MG; Start 06/07/16 at 09:00 Multivitamins (Thera-Plus) 5 ml DAILY GTB Last administered on 07/09/16 08:14 ; Admin Dose 5 ML; Start 06/07/16 at 09:00 Tamsulosin HCl (Flomax) 0.4 mg HS PO Last administered on 07/08/16 21:10; Admin Dose 0.4 MG; Start 06/07/16 at 21:00 Mupirocin (Bactroban) 1 applic BID TOP Last administered on 07/09/16 08:16; Admin Dose 1 APPLIC; Start 06/07/16 at 21:00 Metoclopramide HCl (Reglan) 10 mg Q6H PRN IV NAUSEA AND/OR VOMITING Last administered on 06/08/16 18:00; Admin Dose 10 MG; Start 06/08/16 at 09:30 Lorazepam (Ativan) 1 mg Q6H PRN IV AGITATION/ANXIETY Last administered on 23:15; Admin Dose 1 MG; Start 06/09/16 at 13:30 Citric Acid/ Sodium Citrate (Bicitra) 30 ml BID PO Last administered on 08:14; Admin Dose 30 ML; Start 06/26/16 at 21:00 Potassium Chloride (Potassium Chloride Pwd/Soln) 40 meq DAILY GTB Last administered on 07/09/16 08:14; Admin Dose 40 MEQ; Start 06/30/16 at 10:30 Atenolol 12.5 mg 12.5 mg BID PO Last administered on 07/09/16 08:15; Admin Dose 12.5 MG; Start 06/30/16 at 23:00 Metronidazole (Flagyl 500 Mg (Pmx)) 100 ml @ 100 mls/hr Q8 IVPB Last administered on 07/09/16 13:15; Admin Dose 100 MLS/HR; Start 07/03/16 at 14:00 Diagnostic Test (Pha) (Accu-Chek) 1 ea Q12 XX Last administered on 07/08/16 21 :00; Admin Dose 1 EA; Start 07/05/16 at 09:00 Magnesium Oxide (Mag-Ox 400) 200 mg DAILY PO Last administered on 07/09/16 08: 14; Admin Dose 200 MG; Start 07/05/16 at 12:00; Stop 07/12/16 at 08:00 Lansoprazole (Prevacid) 30 mg DAILY@06 GTB Last administered on 07/09/16 06:20 ; Admin Dose 30 MG; Start 07/06/16 at 06:00 Furosemide (Lasix) 20 mg DAILY IV Last administered on 07/09/16 08:14; Admin Dose 20 MG; Start 07/07/16 at 09:00 Calcium Carbonate (Tums) 1,000 mg BID PO Last administered on 07/09/16 08:15; Admin Dose 1,000 MG; Start 07/06/16 at 21:00 Cholecalciferol (Vitamin D) 800 units DAILY PO Last administered on 07/09/16 08:15; Admin Dose 800 UNITS; Start 07/07/16 at 09:00 Midodrine (Proamatine) 5 mg TID@,,17 GTB Last administered on 07/09/16 08: 17; Admin Dose 5 MG; Start 07/07/16 at 17:00 Assessment/Plan Additional Assessment/Plan IMP: 1. Vent dependent respiratory failure with evidence of healthcare associated pneumonia 2. Status post bowel perforation with drainage, persistent leukocytosis 3. Sepsis 4. Chronic atrial fibrillation 5. Decubitus ulcers 6. Dysphagia with G-tube 7. Chronic encephalopathy RECS: 1. Continue mechanical ventilation 2. Continue broad-spectrum antibiotics per infectious diseases 3. BD's/CPT prn 4. Follow H/H ARTHUR BANKS MD July 09, 2016 15:03
--- NOTE | 2016-07-09 15:48 | CONS ---
Date/Time of Note Date/Time of Note DATE: 07/09/16 TIME: 15:48 Assessment/Plan Assessment/Plan Chief Complaint/Hosp Course SUBJECTIVE: No acute changes. No fevers. The patient is nonverbal, noncommunicative, nad. MICROBIOLOGY: Blood culture on 06/30/2016 negative. Urine culture negative. Endotracheal aspirate grew Acinetobacter baumannii and Klebsiella pneumoniae. INDWELLINGS: Trach, PEG, Alfonso, rectal tube. Abx: Flagyl, Colistin INH PHYSICAL EXAMINATION: GENERAL: This is a fragile, chronically ill-appearing, elderly man who is in no distress. HEENT: Head atraumatic, normocephalic. Sclerae anicteric. Buccal mucosa dry. NECK: Supple. Tracheostomy present. CHEST: Rise symmetrical. Breath sounds diminished to bases. HEART: S1, S2. ABDOMEN: Soft. Bowel tones hypoactive. EXTREMITIES: With trace edema. ASSESSMENT: 1. Systemic inflammatory response syndrome with persistent leukocytosis, possible Clostridium difficile colitis given persistent diarrhea and long-term intravenous antibiotics. 2. Chronic respiratory failure, status post pneumonia, with endotracheal aspirate growing multi-drug resistant organisms, on colistin inhalation. 3. Status post intra-abdominal abscess drainage. 4. Sacral decubitus. 5. Atrial fibrillation. 6. Acute on chronic anemia. 7. Status post methicillin-resistant Staphylococcus aureus bacteremia and urinary tract infection on admission. PLAN: Clinically unchanged, PICC dc'd, continue Flagyl and Colistin INH, f/u labs and procalcitonin level. DW staff Problems: Consultation Date/Type/Reason Admit Date/Time Jun 06, 2016 at 08:08 Initial Consult Date 06/07/16 Type of Consultation: ID Referring Provider: HOLLI LINDER MD Exam/Review of Systems Vital Signs Vitals Vital Signs Date Time Temp Pulse Resp B/P Pulse Ox O2 Delivery O2 Flow Rate FiO2 07/09/16 15:07 98.2 65 18 113/56 94 07/09/16 13:19 30 Intake and Output 07/08/16 07/08/16 07/09/16 15:00 23:00 07:00 Intake Total 100 ml 900 ml 800 ml Output Total 50 ml 800 ml 1000 ml Balance 50 ml 100 ml -200 ml Results Result Diagram: 07/07/16 0645 07/07/16 0645 Results 24 hrs Laboratory Tests Test 07/08/16 22:23 07/09/16 10:45 Bedside Glucose 91 93 Medications Medications Current Medications Naloxone HCl (Narcan) 0.4 mg Q3M PRN IV DECREASED REPIRATORY RATE; Start at 10:30 Ondansetron HCl (Zofran Inj) 4 mg Q6H PRN IV NAUSEA AND/OR VOMITING; Start 01/12 at 10:30 Nitroglycerin (Nitroglycerin (Sl Tab) 0.4 Mg) 1 tab Q5M PRN SL CHEST PAIN; Start 06/06/16 at 10:30 Acetaminophen (Tylenol Liquid) 650 mg Q6H PRN PO PAIN LEVEL 1-3 OR FEVER Last administered on 06/29/16 12:50; Admin Dose 650 MG; Start 06/06/16 at 10:30 Morphine Sulfate (morphine) 2 mg Q4H PRN IV PAIN LEVEL 7-10 Last administered on 06/15/16 00:22; Admin Dose 2 MG; Start 06/06/16 at 10:30 Docusate Sodium (Colace) 100 mg Q12H PRN PO CONSTIPATION; Start 06/06/16 at 10: 30 Magnesium Hydroxide (Milk Of Mag) 30 ml DAILY PRN PO CONSTIPATION; Start at 10:30 Bisacodyl (Dulcolax) 5 mg DAILY PRN PO CONSTIPATION; Start 06/06/16 at 10:30 Collagenase (Santyl) 1 applic DAILY TOP Last administered on 07/09/16 08:16; Admin Dose 1 APPLIC; Start 06/07/16 at 09:00 Collagenase (Santyl) 1 applic PRN PRN TOP WOUND CARE; Start 06/06/16 at 16:00 IV Flush (NS 10 ml) 10 ml PRN PRN IV IV PROTOCOL; Start 06/06/16 at 18:30 Ascorbic Acid (Vitamin C) 500 mg DAILY GTB Last administered on 07/09/16 08:15 ; Admin Dose 500 MG; Start 06/07/16 at 09:00 Aspirin (Aspirin) 325 mg DAILY GTB Last administered on 07/09/16 08:15; Admin Dose 325 MG; Start 06/07/16 at 09:00 Multivitamins (Thera-Plus) 5 ml DAILY GTB Last administered on 07/09/16 08:14 ; Admin Dose 5 ML; Start 06/07/16 at 09:00 Tamsulosin HCl (Flomax) 0.4 mg HS PO Last administered on 07/08/16 21:10; Admin Dose 0.4 MG; Start 06/07/16 at 21:00 Mupirocin (Bactroban) 1 applic BID TOP Last administered on 07/09/16 08:16; Admin Dose 1 APPLIC; Start 06/07/16 at 21:00 Metoclopramide HCl (Reglan) 10 mg Q6H PRN IV NAUSEA AND/OR VOMITING Last administered on 06/08/16 18:00; Admin Dose 10 MG; Start 06/08/16 at 09:30 Lorazepam (Ativan) 1 mg Q6H PRN IV AGITATION/ANXIETY Last administered on 23:15; Admin Dose 1 MG; Start 06/09/16 at 13:30 Citric Acid/ Sodium Citrate (Bicitra) 30 ml BID PO Last administered on 08:14; Admin Dose 30 ML; Start 06/26/16 at 21:00 Potassium Chloride (Potassium Chloride Pwd/Soln) 40 meq DAILY GTB Last administered on 07/09/16 08:14; Admin Dose 40 MEQ; Start 06/30/16 at 10:30 Atenolol 12.5 mg 12.5 mg BID PO Last administered on 07/09/16 08:15; Admin Dose 12.5 MG; Start 06/30/16 at 23:00 Metronidazole (Flagyl 500 Mg (Pmx)) 100 ml @ 100 mls/hr Q8 IVPB Last administered on 07/09/16 13:15; Admin Dose 100 MLS/HR; Start 07/03/16 at 14:00 Diagnostic Test (Pha) (Accu-Chek) 1 ea Q12 XX Last administered on 07/08/16 21 :00; Admin Dose 1 EA; Start 07/05/16 at 09:00 Magnesium Oxide (Mag-Ox 400) 200 mg DAILY PO Last administered on 07/09/16 08: 14; Admin Dose 200 MG; Start 07/05/16 at 12:00; Stop 07/12/16 at 08:00 Lansoprazole (Prevacid) 30 mg DAILY@06 GTB Last administered on 07/09/16 06:20 ; Admin Dose 30 MG; Start 07/06/16 at 06:00 Furosemide (Lasix) 20 mg DAILY IV Last administered on 07/09/16 08:14; Admin Dose 20 MG; Start 07/07/16 at 09:00 Calcium Carbonate (Tums) 1,000 mg BID PO Last administered on 07/09/16 08:15; Admin Dose 1,000 MG; Start 07/06/16 at 21:00 Cholecalciferol (Vitamin D) 800 units DAILY PO Last administered on 07/09/16 08:15; Admin Dose 800 UNITS; Start 07/07/16 at 09:00 Midodrine (Proamatine) 5 mg TID@,, GTB Last administered on 07/09/16 08: 17; Admin Dose 5 MG; Start 07/07/16 at 17:00 JOSE G CUNNINGHAM NP July 09, 2016 15:48
--- NOTE | 2016-07-09 17:11 | PN ---
Date/Time of Note Date/Time of Note DATE: 07/09/16 TIME: 17:10 Assessment/Plan VTE Prophylaxis VTE Prophylaxis Intervention: other Lines/Catheters IV Catheter Type (from Nrs): Saline Lock Urinary Cath still in place: Yes Reason Cath still needed: other (indicate) Assessment/Plan Chief Complaint/Hosp Course IMPRESSION: 1. Sepsis 2. Pneumonia. aspiration 3. Leukocytosis. 4. Hematuria. better 5. Lactic acidosis. better 6. Respiratory failure. 7. Gastrostomy tube placement. 8. Anemia. 9. Atrial fibrillation. 10. History of congestive heart failure with decreased ejection fraction. 11. vdrf 12. History of paroxysmal atrial fibrillation. 13. The patient now has decubitus. 14 uti 15 polymirobial sepsis 16 pul edema BETTER 17 no gi bleed 18 hypokalemia better 19 diarrhea cdiff neg 20 HYPOCALCEMEIA plan per id iv fluid poor prognosis ck labs weaning per pulmonary and cardio surgery consult GT FEEDING per iD bicitra snf when stable poor prognosis lytes replacement Problems: Subjective 24 Hr Interval Summary Subjective hx not possible: other (on vent) Exam/Review of Systems Vital Signs Vitals Vital Signs Date Time Temp Pulse Resp B/P Pulse Ox O2 Delivery O2 Flow Rate FiO2 07/09/16 16:41 80 07/09/16 15:07 98.2 18 113/56 94 07/09/16 13:19 30 Intake and Output 07/08/16 07/08/16 07/09/16 14:59 22:59 06:59 Intake Total 100 ml 900 ml 800 ml Output Total 50 ml 800 ml 1000 ml Balance 50 ml 100 ml -200 ml Exam Neck: supple Respiratory: clear to auscultation Cardiovascular: regular rate and rhythm Gastrointestinal: soft Musculoskeletal: nl extremities to inspection Results Result Diagram: 07/07/16 0645 07/07/16 0645 Results 24 hrs Laboratory Tests Test 07/08/16 22:23 07/09/16 10:45 Bedside Glucose 91 93 Medications Medications Current Medications Naloxone HCl (Narcan) 0.4 mg Q3M PRN IV DECREASED REPIRATORY RATE; Start at 10:30 Ondansetron HCl (Zofran Inj) 4 mg Q6H PRN IV NAUSEA AND/OR VOMITING; Start 01/12 at 10:30 Nitroglycerin (Nitroglycerin (Sl Tab) 0.4 Mg) 1 tab Q5M PRN SL CHEST PAIN; Start 06/06/16 at 10:30 Acetaminophen (Tylenol Liquid) 650 mg Q6H PRN PO PAIN LEVEL 1-3 OR FEVER Last administered on 06/29/16 12:50; Admin Dose 650 MG; Start 06/06/16 at 10:30 Morphine Sulfate (morphine) 2 mg Q4H PRN IV PAIN LEVEL 7-10 Last administered on 06/15/16 00:22; Admin Dose 2 MG; Start 06/06/16 at 10:30 Docusate Sodium (Colace) 100 mg Q12H PRN PO CONSTIPATION; Start 06/06/16 at 10: 30 Magnesium Hydroxide (Milk Of Mag) 30 ml DAILY PRN PO CONSTIPATION; Start at 10:30 Bisacodyl (Dulcolax) 5 mg DAILY PRN PO CONSTIPATION; Start 06/06/16 at 10:30 Collagenase (Santyl) 1 applic DAILY TOP Last administered on 07/09/16 08:16; Admin Dose 1 APPLIC; Start 06/07/16 at 09:00 Collagenase (Santyl) 1 applic PRN PRN TOP WOUND CARE; Start 06/06/16 at 16:00 IV Flush (NS 10 ml) 10 ml PRN PRN IV IV PROTOCOL; Start 06/06/16 at 18:30 Ascorbic Acid (Vitamin C) 500 mg DAILY GTB Last administered on 07/09/16 08:15 ; Admin Dose 500 MG; Start 06/07/16 at 09:00 Aspirin (Aspirin) 325 mg DAILY GTB Last administered on 07/09/16 08:15; Admin Dose 325 MG; Start 06/07/16 at 09:00 Multivitamins (Thera-Plus) 5 ml DAILY GTB Last administered on 07/09/16 08:14 ; Admin Dose 5 ML; Start 06/07/16 at 09:00 Tamsulosin HCl (Flomax) 0.4 mg HS PO Last administered on 07/08/16 21:10; Admin Dose 0.4 MG; Start 06/07/16 at 21:00 Mupirocin (Bactroban) 1 applic BID TOP Last administered on 07/09/16 08:16; Admin Dose 1 APPLIC; Start 06/07/16 at 21:00 Metoclopramide HCl (Reglan) 10 mg Q6H PRN IV NAUSEA AND/OR VOMITING Last administered on 06/08/16 18:00; Admin Dose 10 MG; Start 06/08/16 at 09:30 Lorazepam (Ativan) 1 mg Q6H PRN IV AGITATION/ANXIETY Last administered on 23:15; Admin Dose 1 MG; Start 06/09/16 at 13:30 Citric Acid/ Sodium Citrate (Bicitra) 30 ml BID PO Last administered on 08:14; Admin Dose 30 ML; Start 06/26/16 at 21:00 Potassium Chloride (Potassium Chloride Pwd/Soln) 40 meq DAILY GTB Last administered on 07/09/16 08:14; Admin Dose 40 MEQ; Start 06/30/16 at 10:30 Atenolol 12.5 mg 12.5 mg BID PO Last administered on 07/09/16 08:15; Admin Dose 12.5 MG; Start 06/30/16 at 23:00 Metronidazole (Flagyl 500 Mg (Pmx)) 100 ml @ 100 mls/hr Q8 IVPB Last administered on 07/09/16 13:15; Admin Dose 100 MLS/HR; Start 07/03/16 at 14:00 Diagnostic Test (Pha) (Accu-Chek) 1 ea Q12 XX Last administered on 07/08/16 21 :00; Admin Dose 1 EA; Start 07/05/16 at 09:00 Magnesium Oxide (Mag-Ox 400) 200 mg DAILY PO Last administered on 07/09/16 08: 14; Admin Dose 200 MG; Start 07/05/16 at 12:00; Stop 07/12/16 at 08:00 Lansoprazole (Prevacid) 30 mg DAILY@06 GTB Last administered on 07/09/16 06:20 ; Admin Dose 30 MG; Start 07/06/16 at 06:00 Furosemide (Lasix) 20 mg DAILY IV Last administered on 07/09/16 08:14; Admin Dose 20 MG; Start 07/07/16 at 09:00 Calcium Carbonate (Tums) 1,000 mg BID PO Last administered on 07/09/16 08:15; Admin Dose 1,000 MG; Start 07/06/16 at 21:00 Cholecalciferol (Vitamin D) 800 units DAILY PO Last administered on 07/09/16 08:15; Admin Dose 800 UNITS; Start 07/07/16 at 09:00 Midodrine (Proamatine) 5 mg TID@,,17 GTB Last administered on 07/09/16 08: 17; Admin Dose 5 MG; Start 07/07/16 at 17:00 HOLLI LINDER MD July 09, 2016 17:11
[2016-07-09] MEDS: ACETAMINOPHEN 650MG/20.3ML CUP PO PRN (20:10)
[2016-07-09] MEDS: TAMSULOSIN (SR) 0.4 MG CAP PO SCH (21:40)
[2016-07-10] VITALS (25 sets, daily range): BP systolic 112–142; BP diastolic 55–93; PULSE 60–99; RESP 16–30
[2016-07-10] MEDS: IPRATROPIUM (HFA) 12.9 GM INHALER INH SCH ×5 (01:44→21:14)
[2016-07-10] MEDS: ALBUTEROL 18 GM INHALER INH SCH ×5 (01:44→21:14)
[2016-07-10] MEDS: metroNIDAZOLE 500 MG/NS (PMX) 100 ML IVPB SCH (05:39)
[2016-07-10] MEDS: LANSOPRAZOLE 30 MG CAP GTB SCH (06:44)
[2016-07-10 07:11] LABS: ADD SCAN DIFF NO
[2016-07-10 07:20] LABS: ABNORMAL IP MESSAGE 1; HEMATOCRIT 29.2 % (42.0-52.0); HEMOGLOBIN 9.3 g/dl (14.0-18.0); MEAN CORPUSCULAR HEMOGLOBIN 29.4 pg (29.0-33.0); MEAN CORPUSCULAR HGB CONC 31.8 g/dl (32.0-37.0); MEAN CORPUSCULAR VOLUME 92.4 fl (82.0-101.0); PLATELET COUNT 458 10^3/UL (140-415); RED BLOOD COUNT 3.16 10^6/ul (4.70-6.10); RED CELL DISTRIBUTION WIDTH 18.7 % (11.5-14.5); WHITE BLOOD COUNT 30.6 10^3/ul (4.8-10.8)
[2016-07-10 07:53] LABS: ALBUMIN/GLOBULIN RATIO 0.64; CALCIUM 6.8 mg/dl (8.4-10.2); CREATININE 0.86 mg/dl (0.61-1.24); POTASSIUM 3.9 mmol/L (3.5-5.1); TOTAL PROTEIN 5.1 g/dl (6.1-8.1)
[2016-07-10] MEDS: COLLAGENASE 30 GM TUBE TOP SCH (08:23)
[2016-07-10] MEDS: ACCU-CHEK XX SCH ×2 (08:23→21:31)
[2016-07-10] MEDS: MIDODRINE 5 MG TAB GTB SCH ×3 (08:24→17:00)
[2016-07-10] MEDS: MUPIROCIN 2% 22 GM OINT TOP SCH ×2 (08:24→21:28)
[2016-07-10] MEDS: COLISTIMETHATE (25 MG/ML INHAL SYG) NEB SCH ×2 (08:57→19:32)
[2016-07-10 09:29] LABS: LYMPHOCYTES # 2.8 10^3/ul (0.8-2.9); MONOCYTE # 0.9 10^3/ul (0.3-0.9); MYELOCYTES # 0.6; POLYCHROMASIA 1+
[2016-07-10] MEDS: ASPIRIN 325 MG TAB GTB SCH (09:47)
[2016-07-10] MEDS: CHOLECALCIFEROL 400 UNITS TAB PO SCH (09:47)
[2016-07-10] MEDS: CITRIC ACID/SODIUM CITRATE 15 ML CUP PO SCH ×2 (09:47→21:28)
[2016-07-10] MEDS: MULTIVITAMINS 5 ML CUP GTB SCH (09:47)
[2016-07-10] MEDS: CALCIUM CARBONATE 500 MG CHEW TAB PO SCH ×2 (09:47→21:28)
[2016-07-10] MEDS: POTASSIUM CHLORIDE 20 MEQ POWDER FOR ORAL SOLN GTB SCH (09:47)
[2016-07-10] MEDS: MAGNESIUM OXIDE 400 MG TAB PO SCH (09:48)
[2016-07-10] MEDS: ASCORBIC ACID 500 MG TAB GTB SCH (09:48)
[2016-07-10] MEDS: FUROSEMIDE 20 MG INJ IV SCH (09:48)
[2016-07-10] MEDS: ATENOLOL 25 MG TAB PO SCH ×2 (09:48→21:27)
--- NOTE | 2016-07-10 10:22 | PN ---
Date/Time of Note Date/Time of Note DATE: 07/08/16 TIME: 10:22 Assessment/Plan Lines/Catheters IV Catheter Type (from [facility]): Peripheral IV Alfonso in Place (from [facility]): Yes Assessment/Plan Chief Complaint/Hosp Course 1. Contained perforated viscous s/p IR drain 06/11. Cx noted. Leukocytosis resolved. Tube feeds. Bowel function. Drain dcd. s/p Abx. Persistent leukocytosis. Chemical code. -defer further w/u to primary team 2. Pneumonia -pulmonary toilette -abx 3. Sepsis, recent. Leukocytosis worsening again. -abx -as above 4. Sacral decubitus ulcer -off load -nutrition optimization -vit c -local care 5. Chronic AFib -rate control -optimize electrolytes -tx infections 6. Anemia, dropped again -? source -? tx 7. Hypoalbuminemia -eventual nutritional optimization 8. CHF -judicious fluid management -cardiac optimization Thank you, Late entry 07/08 Problems: Subjective 24 Hr Interval Summary Leukocytosis. No f/c. No cough. No sz. No rashes. No bloating. No vomiting. No bleeding. Bowel function. Exam/Review of Systems Vital Signs Vitals Vital Signs Date Time Temp Pulse Resp B/P Pulse Ox O2 Delivery O2 Flow Rate FiO2 07/10/16 09:00 62 29 99 30 07/10/16 07:17 98.0 125/62 Intake and Output 07/09/16 07/09/16 07/10/16 15:00 23:00 07:00 Intake Total 950 ml 850 ml Output Total 1300 ml 800 ml Balance -350 ml 50 ml Exam Free Text/Dictation Constitutional: No distress, No oriented Psych: confusion, No anxiety Head: atraumatic, normocephalic Eyes: PERRL, nl conjunctiva, No icteric ENMT: mucosa pink and moist, nl external ears & nose, nl lips & teeth Neck: jvd (min), non-tender Respiratory: No congested cough, No labored breathing Cardiovascular: No edema, No regular rate and rhythm Gastrointestinal: soft, PEGNo distended, No firm, No rebound or guarding Musculoskeletal: No joint tenderness, No nl gait and stance Extremities: No calf tenderness, No cyanosis Neurological: No nl mental status, No nl speech, No nl strength Skin: nl turgor, rash or lesions (Sacral and LE decubitus ulcerations), No diaphoresis Lymph: nl lymph nodes Results Result Diagram: 07/10/16 0642 07/10/16 0642 DAREK AHMADI MD July 10, 2016 10:22
--- NOTE | 2016-07-10 10:23 | PN ---
Date/Time of Note Date/Time of Note DATE: 07/09/16 TIME: 10:22 Assessment/Plan Lines/Catheters IV Catheter Type (from [facility]): Peripheral IV Alfonso in Place (from [facility]): Yes Assessment/Plan Chief Complaint/Hosp Course 1. Contained perforated viscous s/p IR drain 06/11. Cx noted. Leukocytosis resolved. Tube feeds. Bowel function. Drain dcd. s/p Abx. Persistent leukocytosis. Chemical code. -defer further w/u to primary team 2. Pneumonia -pulmonary toilette -abx 3. Sepsis, recent. Leukocytosis worsening again. -abx -as above 4. Sacral decubitus ulcer -off load -nutrition optimization -vit c -local care 5. Chronic AFib -rate control -optimize electrolytes -tx infections 6. Anemia, dropped again -? source -? tx 7. Hypoalbuminemia -eventual nutritional optimization 8. CHF -judicious fluid management -cardiac optimization Thank you, Late entry 07/09 Problems: Subjective 24 Hr Interval Summary Leukocytosis. No f/c. No cough. No sz. No rashes. No bloating. No vomiting. No bleeding. Bowel function. Exam/Review of Systems Vital Signs Vitals Vital Signs Date Time Temp Pulse Resp B/P Pulse Ox O2 Delivery O2 Flow Rate FiO2 07/10/16 09:00 62 29 99 30 07/10/16 07:17 98.0 125/62 Intake and Output 07/09/16 07/09/16 07/10/16 15:00 23:00 07:00 Intake Total 950 ml 850 ml Output Total 1300 ml 800 ml Balance -350 ml 50 ml Exam Free Text/Dictation Constitutional: No distress, No oriented Psych: confusion, No anxiety Head: atraumatic, normocephalic Eyes: PERRL, nl conjunctiva, No icteric ENMT: mucosa pink and moist, nl external ears & nose, nl lips & teeth Neck: jvd (min), non-tender Respiratory: No congested cough, No labored breathing Cardiovascular: No edema, No regular rate and rhythm Gastrointestinal: soft, PEGNo distended, No firm, No rebound or guarding Musculoskeletal: No joint tenderness, No nl gait and stance Extremities: No calf tenderness, No cyanosis Neurological: No nl mental status, No nl speech, No nl strength Skin: nl turgor, rash or lesions (Sacral and LE decubitus ulcerations), No diaphoresis Lymph: nl lymph nodes Results Result Diagram: 07/10/16 0642 07/10/16 0642 DAREK AHMADI MD July 10, 2016 10:23
--- NOTE | 2016-07-10 10:23 | PN ---
Date/Time of Note Date/Time of Note DATE: 07/10/16 TIME: 10:23 Assessment/Plan Lines/Catheters IV Catheter Type (from [facility]): Peripheral IV Alfonso in Place (from [facility]): Yes Assessment/Plan Chief Complaint/Hosp Course 1. Contained perforated viscous s/p IR drain 06/11. Cx noted. Leukocytosis resolved. Tube feeds. Bowel function. Drain dcd. s/p Abx. Persistent leukocytosis. Chemical code. -defer further w/u to primary team 2. Pneumonia -pulmonary toilette -abx 3. Sepsis, recent. Leukocytosis worsening again. -abx -as above 4. Sacral decubitus ulcer -off load -nutrition optimization -vit c -local care 5. Chronic AFib -rate control -optimize electrolytes -tx infections 6. Anemia, dropped again -? source -? tx 7. Hypoalbuminemia -eventual nutritional optimization 8. CHF -judicious fluid management -cardiac optimization Thank you, Problems: Subjective 24 Hr Interval Summary Leukocytosis. No f/c. No cough. No sz. No rashes. No bloating. No vomiting. No bleeding. Bowel function. Exam/Review of Systems Vital Signs Vitals Vital Signs Date Time Temp Pulse Resp B/P Pulse Ox O2 Delivery O2 Flow Rate FiO2 07/10/16 09:00 62 29 99 30 07/10/16 07:17 98.0 125/62 Intake and Output 07/09/16 07/09/16 07/10/16 15:00 23:00 07:00 Intake Total 950 ml 850 ml Output Total 1300 ml 800 ml Balance -350 ml 50 ml Exam Free Text/Dictation Constitutional: No distress, No oriented Psych: confusion, No anxiety Head: atraumatic, normocephalic Eyes: PERRL, nl conjunctiva, No icteric ENMT: mucosa pink and moist, nl external ears & nose, nl lips & teeth Neck: jvd (min), non-tender Respiratory: No congested cough, No labored breathing Cardiovascular: No edema, No regular rate and rhythm Gastrointestinal: soft, PEGNo distended, No firm, No rebound or guarding Musculoskeletal: No joint tenderness, No nl gait and stance Extremities: No calf tenderness, No cyanosis Neurological: No nl mental status, No nl speech, No nl strength Skin: nl turgor, rash or lesions (Sacral and LE decubitus ulcerations), No diaphoresis Lymph: nl lymph nodes Results Result Diagram: 07/10/16 0642 07/10/16 0642 DAREK AHMADI MD July 10, 2016 10:23
--- NOTE | 2016-07-10 13:31 | CONS ---
Date/Time of Note Date/Time of Note DATE: 07/10/16 TIME: 13:29 Assessment/Plan Assessment/Plan Chief Complaint/Hosp Course SUBJECTIVE: No acute changes. No fevers. No diarrhea, looks comfortable MICROBIOLOGY: Blood culture on 06/30/2016 negative. Urine culture negative. Endotracheal aspirate grew Acinetobacter baumannii and Klebsiella pneumoniae. INDWELLINGS: Trach, PEG, Alfonso, rectal tube. Abx: Flagyl, Colistin INH PHYSICAL EXAMINATION: GENERAL: This is a fragile, chronically ill-appearing, elderly man who is in no distress. HEENT: Head atraumatic, normocephalic. Sclerae anicteric. Buccal mucosa dry. NECK: Supple. Tracheostomy present. CHEST: Rise symmetrical. Breath sounds diminished to bases. HEART: S1, S2. ABDOMEN: Soft. Bowel tones hypoactive. EXTREMITIES: With trace edema. ASSESSMENT: 1. Systemic inflammatory response syndrome with persistent leukocytosis===> L acid 1,6, pending procalcitonin level 2. Chronic respiratory failure, status post pneumonia, with endotracheal aspirate growing multi-drug resistant organisms, on colistin inhalation. 3. Status post intra-abdominal abscess drainage. 4. Sacral decubitus. 5. Atrial fibrillation. 6. Acute on chronic anemia. 7. Status post methicillin-resistant Staphylococcus aureus bacteremia and urinary tract infection on admission. PLAN: Clinically unchanged, dc Flagyl, continue Colistin INH, repeat cx's, will order WBC labeled nuclear scan, will check sacral wound cx DW staff Problems: Consultation Date/Type/Reason Admit Date/Time Jun 06, 2016 at 08:08 Initial Consult Date 06/07/16 Type of Consultation: ID Referring Provider: HOLLI LINDER MD Exam/Review of Systems Vital Signs Vitals Vital Signs Date Time Temp Pulse Resp B/P Pulse Ox O2 Delivery O2 Flow Rate FiO2 07/10/16 13:06 65 07/10/16 12:00 98.0 18 112/55 99 07/10/16 11:15 30 Intake and Output 07/09/16 07/09/16 07/10/16 15:00 23:00 07:00 Intake Total 950 ml 850 ml Output Total 1300 ml 800 ml Balance -350 ml 50 ml Results Result Diagram: 07/10/16 0642 07/10/16 0642 Results 24 hrs Laboratory Tests Test 07/09/16 21:34 07/10/16 06:42 07/10/16 11:30 Bedside Glucose 118 White Blood Count 30.6 H Red Blood Count 3.16 L Hemoglobin 9.3 L Hematocrit 29.2 L Mean Corpuscular Volume 92.4 Mean Corpuscular Hemoglobin 29.4 Mean Corpuscular Hemoglobin Concent 31.8 L Red Cell Distribution Width 18.7 H Platelet Count 458 #H Mean Platelet Volume 11.0 H Neutrophils % 85.0 H Band Neutrophils % 1.0 Lymphocytes % 9.0 L Monocytes % 3.0 Eosinophils % Myelocytes % 2.0 H Neutrophils # 26.0 H Lymphocytes # 2.8 Monocytes # 0.9 Eosinophils # Myelocytes # 0.6 Polychromasia 1+ Sodium Level 140 Potassium Level 3.9 Chloride Level 112 H Carbon Dioxide Level 24 Anion Gap 8 Blood Urea Nitrogen 41 H Creatinine 0.86 Glucose Level 102 Calcium Level 6.8 L Total Bilirubin 0.0 L Direct Bilirubin 0.00 Indirect Bilirubin 0.0 Aspartate Amino Transf (AST/SGOT) 32 Alanine Aminotransferase (ALT/SGPT) 31 Alkaline Phosphatase 264 H Total Protein 5.1 L Albumin 2.0 L Globulin 3.10 Albumin/Globulin Ratio 0.64 Lactic Acid Level 1.6 Medications Medications Current Medications Naloxone HCl (Narcan) 0.4 mg Q3M PRN IV DECREASED REPIRATORY RATE; Start at 10:30 Ondansetron HCl (Zofran Inj) 4 mg Q6H PRN IV NAUSEA AND/OR VOMITING; Start 01/12 at 10:30 Nitroglycerin (Nitroglycerin (Sl Tab) 0.4 Mg) 1 tab Q5M PRN SL CHEST PAIN; Start 06/06/16 at 10:30 Acetaminophen (Tylenol Liquid) 650 mg Q6H PRN PO PAIN LEVEL 1-3 OR FEVER Last administered on 07/09/16 20:10; Admin Dose 650 MG; Start 06/06/16 at 10:30 Morphine Sulfate (morphine) 2 mg Q4H PRN IV PAIN LEVEL 7-10 Last administered on 06/15/16 00:22; Admin Dose 2 MG; Start 06/06/16 at 10:30 Docusate Sodium (Colace) 100 mg Q12H PRN PO CONSTIPATION; Start 06/06/16 at 10: 30 Magnesium Hydroxide (Milk Of Mag) 30 ml DAILY PRN PO CONSTIPATION; Start at 10:30 Bisacodyl (Dulcolax) 5 mg DAILY PRN PO CONSTIPATION; Start 06/06/16 at 10:30 Collagenase (Santyl) 1 applic DAILY TOP Last administered on 07/09/16 08:16; Admin Dose 1 APPLIC; Start 06/07/16 at 09:00 Collagenase (Santyl) 1 applic PRN PRN TOP WOUND CARE; Start 06/06/16 at 16:00 IV Flush (NS 10 ml) 10 ml PRN PRN IV IV PROTOCOL; Start 06/06/16 at 18:30 Ascorbic Acid (Vitamin C) 500 mg DAILY GTB Last administered on 07/10/16 09:48 ; Admin Dose 500 MG; Start 06/07/16 at 09:00 Aspirin (Aspirin) 325 mg DAILY GTB Last administered on 07/10/16 09:47; Admin Dose 325 MG; Start 06/07/16 at 09:00 Multivitamins (Thera-Plus) 5 ml DAILY GTB Last administered on 07/10/16 09:47 ; Admin Dose 5 ML; Start 06/07/16 at 09:00 Tamsulosin HCl (Flomax) 0.4 mg HS PO Last administered on 07/09/16 21:40; Admin Dose 0.4 MG; Start 06/07/16 at 21:00 Mupirocin (Bactroban) 1 applic BID TOP Last administered on 07/10/16 08:24; Admin Dose 1 APPLIC; Start 06/07/16 at 21:00 Metoclopramide HCl (Reglan) 10 mg Q6H PRN IV NAUSEA AND/OR VOMITING Last administered on 06/08/16 18:00; Admin Dose 10 MG; Start 06/08/16 at 09:30 Lorazepam (Ativan) 1 mg Q6H PRN IV AGITATION/ANXIETY Last administered on 23:15; Admin Dose 1 MG; Start 06/09/16 at 13:30 Citric Acid/ Sodium Citrate (Bicitra) 30 ml BID PO Last administered on 09:47; Admin Dose 30 ML; Start 06/26/16 at 21:00 Potassium Chloride (Potassium Chloride Pwd/Soln) 40 meq DAILY GTB Last administered on 07/10/16 09:47; Admin Dose 40 MEQ; Start 06/30/16 at 10:30 Atenolol 12.5 mg 12.5 mg BID PO Last administered on 07/10/16 09:48; Admin Dose 12.5 MG; Start 06/30/16 at 23:00 Metronidazole (Flagyl 500 Mg (Pmx)) 100 ml @ 100 mls/hr Q8 IVPB Last administered on 07/10/16 05:39; Admin Dose 100 MLS/HR; Start 07/03/16 at 14:00 Diagnostic Test (Pha) (Accu-Chek) 1 ea Q12 XX Last administered on 07/09/16 21 :40; Admin Dose 1 EA; Start 07/05/16 at 09:00 Magnesium Oxide (Mag-Ox 400) 200 mg DAILY PO Last administered on 07/10/16 09: 48; Admin Dose 200 MG; Start 07/05/16 at 12:00; Stop 07/12/16 at 08:00 Lansoprazole (Prevacid) 30 mg DAILY@06 GTB Last administered on 07/10/16 06:44 ; Admin Dose 30 MG; Start 07/06/16 at 06:00 Furosemide (Lasix) 20 mg DAILY IV Last administered on 07/10/16 09:48; Admin Dose 20 MG; Start 07/07/16 at 09:00 Calcium Carbonate (Tums) 1,000 mg BID PO Last administered on 07/10/16 09:47; Admin Dose 1,000 MG; Start 07/06/16 at 21:00 Cholecalciferol (Vitamin D) 800 units DAILY PO Last administered on 07/10/16 09:47; Admin Dose 800 UNITS; Start 07/07/16 at 09:00 Midodrine (Proamatine) 5 mg TID@,, GTB Last administered on 07/10/16 12: 52; Admin Dose 5 MG; Start 07/07/16 at 17:00 JOSE G CUNNINGHAM NP July 10, 2016 13:31
--- NOTE | 2016-07-10 13:40 | CONS ---
Date/Time of Note Date/Time of Note DATE: 07/10/16 TIME: 13:40 Consult Date/Type/Reason Admit Date/Time Jun 06, 2016 at 08:08 Initial Consult Date 06/07/16 Type of Consultation: Pulm Ordering Provider: HOLLI LINDER MD Subjective Comfortable, no events. Objective Vital Signs Date Time Temp Pulse Resp B/P Pulse Ox O2 Delivery O2 Flow Rate FiO2 07/10/16 13:06 65 07/10/16 12:00 98.0 18 112/55 99 07/10/16 11:15 30 Intake and Output 07/09/16 07/09/16 07/10/16 15:00 23:00 07:00 Intake Total 950 ml 850 ml Output Total 1300 ml 800 ml Balance -350 ml 50 ml Exam PHYSICAL EXAMINATION GENERAL: Elderly gentleman, on mechanical ventilation, VITAL SIGNS: see below. HEENT: Pupils equal, round, and reactive to light. Tracheostomy site clean and intact. CARDIAC: S1, S2, tachycardia. CHEST: Diminished air entry bilaterally. ABDOMEN: Mildly distended. Diminished bowel sounds no guarding or rebound EXTREMITIES: No cyanosis, clubbing edema +2 NEUROLOGIC: Generalized weakness Results/Medications Result Diagram: 07/10/16 0642 07/10/16 0642 Results 24 hrs Laboratory Tests Test 07/09/16 21:34 07/10/16 06:42 07/10/16 11:30 Bedside Glucose 118 White Blood Count 30.6 H Red Blood Count 3.16 L Hemoglobin 9.3 L Hematocrit 29.2 L Mean Corpuscular Volume 92.4 Mean Corpuscular Hemoglobin 29.4 Mean Corpuscular Hemoglobin Concent 31.8 L Red Cell Distribution Width 18.7 H Platelet Count 458 #H Mean Platelet Volume 11.0 H Neutrophils % 85.0 H Band Neutrophils % 1.0 Lymphocytes % 9.0 L Monocytes % 3.0 Eosinophils % Myelocytes % 2.0 H Neutrophils # 26.0 H Lymphocytes # 2.8 Monocytes # 0.9 Eosinophils # Myelocytes # 0.6 Polychromasia 1+ Sodium Level 140 Potassium Level 3.9 Chloride Level 112 H Carbon Dioxide Level 24 Anion Gap 8 Blood Urea Nitrogen 41 H Creatinine 0.86 Glucose Level 102 Calcium Level 6.8 L Total Bilirubin 0.0 L Direct Bilirubin 0.00 Indirect Bilirubin 0.0 Aspartate Amino Transf (AST/SGOT) 32 Alanine Aminotransferase (ALT/SGPT) 31 Alkaline Phosphatase 264 H Total Protein 5.1 L Albumin 2.0 L Globulin 3.10 Albumin/Globulin Ratio 0.64 Lactic Acid Level 1.6 Medications Current Medications Naloxone HCl (Narcan) 0.4 mg Q3M PRN IV DECREASED REPIRATORY RATE; Start at 10:30 Ondansetron HCl (Zofran Inj) 4 mg Q6H PRN IV NAUSEA AND/OR VOMITING; Start 01/12 at 10:30 Nitroglycerin (Nitroglycerin (Sl Tab) 0.4 Mg) 1 tab Q5M PRN SL CHEST PAIN; Start 06/06/16 at 10:30 Acetaminophen (Tylenol Liquid) 650 mg Q6H PRN PO PAIN LEVEL 1-3 OR FEVER Last administered on 07/09/16 20:10; Admin Dose 650 MG; Start 06/06/16 at 10:30 Morphine Sulfate (morphine) 2 mg Q4H PRN IV PAIN LEVEL 7-10 Last administered on 06/15/16 00:22; Admin Dose 2 MG; Start 06/06/16 at 10:30 Docusate Sodium (Colace) 100 mg Q12H PRN PO CONSTIPATION; Start 06/06/16 at 10: 30 Magnesium Hydroxide (Milk Of Mag) 30 ml DAILY PRN PO CONSTIPATION; Start at 10:30 Bisacodyl (Dulcolax) 5 mg DAILY PRN PO CONSTIPATION; Start 06/06/16 at 10:30 Collagenase (Santyl) 1 applic DAILY TOP Last administered on 07/09/16 08:16; Admin Dose 1 APPLIC; Start 06/07/16 at 09:00 Collagenase (Santyl) 1 applic PRN PRN TOP WOUND CARE; Start 06/06/16 at 16:00 IV Flush (NS 10 ml) 10 ml PRN PRN IV IV PROTOCOL; Start 06/06/16 at 18:30 Ascorbic Acid (Vitamin C) 500 mg DAILY GTB Last administered on 07/10/16 09:48 ; Admin Dose 500 MG; Start 06/07/16 at 09:00 Aspirin (Aspirin) 325 mg DAILY GTB Last administered on 07/10/16 09:47; Admin Dose 325 MG; Start 06/07/16 at 09:00 Multivitamins (Thera-Plus) 5 ml DAILY GTB Last administered on 07/10/16 09:47 ; Admin Dose 5 ML; Start 06/07/16 at 09:00 Tamsulosin HCl (Flomax) 0.4 mg HS PO Last administered on 07/09/16 21:40; Admin Dose 0.4 MG; Start 06/07/16 at 21:00 Mupirocin (Bactroban) 1 applic BID TOP Last administered on 07/10/16 08:24; Admin Dose 1 APPLIC; Start 06/07/16 at 21:00 Metoclopramide HCl (Reglan) 10 mg Q6H PRN IV NAUSEA AND/OR VOMITING Last administered on 06/08/16 18:00; Admin Dose 10 MG; Start 06/08/16 at 09:30 Lorazepam (Ativan) 1 mg Q6H PRN IV AGITATION/ANXIETY Last administered on 23:15; Admin Dose 1 MG; Start 06/09/16 at 13:30 Citric Acid/ Sodium Citrate (Bicitra) 30 ml BID PO Last administered on 09:47; Admin Dose 30 ML; Start 06/26/16 at 21:00 Potassium Chloride (Potassium Chloride Pwd/Soln) 40 meq DAILY GTB Last administered on 07/10/16 09:47; Admin Dose 40 MEQ; Start 06/30/16 at 10:30 Atenolol (Tenormin) 12.5 mg BID PO Last administered on 07/10/16 09:48; Admin Dose 12.5 MG; Start 06/30/16 at 23:00 Diagnostic Test (Pha) (Accu-Chek) 1 ea Q12 XX Last administered on 07/09/16 21 :40; Admin Dose 1 EA; Start 07/05/16 at 09:00 Magnesium Oxide (Mag-Ox 400) 200 mg DAILY PO Last administered on 07/10/16 09: 48; Admin Dose 200 MG; Start 07/05/16 at 12:00; Stop 07/12/16 at 08:00 Lansoprazole (Prevacid) 30 mg DAILY@06 GTB Last administered on 07/10/16 06:44 ; Admin Dose 30 MG; Start 07/06/16 at 06:00 Furosemide (Lasix) 20 mg DAILY IV Last administered on 07/10/16 09:48; Admin Dose 20 MG; Start 07/07/16 at 09:00 Calcium Carbonate (Tums) 1,000 mg BID PO Last administered on 07/10/16 09:47; Admin Dose 1,000 MG; Start 07/06/16 at 21:00 Cholecalciferol (Vitamin D) 800 units DAILY PO Last administered on 07/10/16 09:47; Admin Dose 800 UNITS; Start 07/07/16 at 09:00 Midodrine (Proamatine) 5 mg TID@, GTB Last administered on 07/10/16 12: 52; Admin Dose 5 MG; Start 07/07/16 at 17:00 Assessment/Plan Chief Complaint/Hosp Course Assessment 1. Vent dependent respiratory failure with evidence of healthcare associated pneumonia 2. Status post bowel perforation with drainage, persistent leukocytosis 3. Ongoing sepsis as above 4. Chronic atrial fibrillation 5. Decubitus ulcers 6. Dysphagia with G-tube 7. Chronic encephalopathy Plan 1. Continue mechanical ventilation 2. Continue broad-spectrum antibiotics per infectious diseases 3. Surgical recommendations regarding abdominal drains 4. Palliative care consult appreciated 5. DVT and GI prophylaxis 6. Stable post transfusion Disposition Continue current care Overall prognosis very poor Problems: KAVON TROY MD, [facility] July 10, 2016 13:40
--- NOTE | 2016-07-10 13:55 | CONS ---
Date/Time of Note Date/Time of Note DATE: 07/10/16 TIME: 13:52 Assessment/Plan Assessment/Plan Chief Complaint/Hosp Course IMp: 1.CHF-systolic acute on chonic-reasonable volume status at this time 2.Resp failure s/p trach on vent 3.Cardiomyopathy-LVEF 25-30% 4.HTN-with recurrent episodes of Hotn on midodrine as necessary 5.PPM-s/p interrogation with proper function-episodes of SVT and short episode VT 06/09/16/good battery life 6.Leukocytosis-persistent 7.Tachycardia-PAF/AFL rate controlled 8.Perforated viscous s/p IR drain now removed with ongoing leukocytosis 9. Renal insuff-? overdiuresis-now improved and back to baseline 10. Wide complex tachy-NSVT today 06/30/16 Recc: -Tele -Continue abx's and f/u cx data and treat fevers -Continue atenolol as tolerated/possible only given ongoing recurrent tachy -Continue asa/low dose lovenox -Continue abx's/f/u cx data -Palliative care following -Now on midodrine BP support as necessary and thus continue for now -S/P dose IVP digoxin with improvement in HR control -Continue low dose gentle lasix diuresis and follow volume status closely Problems: Consultation Date/Type/Reason Admit Date/Time Jun 06, 2016 at 08:08 Initial Consult Date 06/07/16 Type of Consultation: Cardiology Reason for Consultation Cardiomyopathy/CHF Referring Provider: HOLLI LINDER MD Exam/Review of Systems Vital Signs Vitals Vital Signs Date Time Temp Pulse Resp B/P Pulse Ox O2 Delivery O2 Flow Rate FiO2 07/10/16 13:06 65 07/10/16 12:00 98.0 18 112/55 99 07/10/16 11:15 30 Intake and Output 07/09/16 07/09/16 07/10/16 15:00 23:00 07:00 Intake Total 950 ml 850 ml Output Total 1300 ml 800 ml Balance -350 ml 50 ml Exam Review of Systems: CONSTITUTIONAL: No fevers, chills. PULMONARY: trached CARDIOVASCULAR: No chest pain/palpitations GASTROINTESTINAL: No nausea/vomiting. GENITOURINARY: No hematuria/dysuria. MUSCULOSKELETAL: No obvious myagias/arthalgias. PSYCHIATRIC: The patient denies depression. NEUROLOGIC: Encephalopathic Constitutional: other (sleeping, arousable) Psych: no complaints Head: normocephalic ENMT: mucosa pink and moist Neck: jvd, supple Respiratory: diminished breath sounds (at bases/B) Cardiovascular: regular rate and rhythm Gastrointestinal: non-tender, soft Musculoskeletal: muscle tone (normal) Extremities: edema (trace/B) Neurological: lethargic Results Result Diagram: 07/10/16 0642 07/10/16 0642 Results 24 hrs Laboratory Tests Test 07/09/16 21:34 07/10/16 06:42 07/10/16 11:30 Bedside Glucose 118 White Blood Count 30.6 H Red Blood Count 3.16 L Hemoglobin 9.3 L Hematocrit 29.2 L Mean Corpuscular Volume 92.4 Mean Corpuscular Hemoglobin 29.4 Mean Corpuscular Hemoglobin Concent 31.8 L Red Cell Distribution Width 18.7 H Platelet Count 458 #H Mean Platelet Volume 11.0 H Neutrophils % 85.0 H Band Neutrophils % 1.0 Lymphocytes % 9.0 L Monocytes % 3.0 Eosinophils % Myelocytes % 2.0 H Neutrophils # 26.0 H Lymphocytes # 2.8 Monocytes # 0.9 Eosinophils # Myelocytes # 0.6 Polychromasia 1+ Sodium Level 140 Potassium Level 3.9 Chloride Level 112 H Carbon Dioxide Level 24 Anion Gap 8 Blood Urea Nitrogen 41 H Creatinine 0.86 Glucose Level 102 Calcium Level 6.8 L Total Bilirubin 0.0 L Direct Bilirubin 0.00 Indirect Bilirubin 0.0 Aspartate Amino Transf (AST/SGOT) 32 Alanine Aminotransferase (ALT/SGPT) 31 Alkaline Phosphatase 264 H Total Protein 5.1 L Albumin 2.0 L Globulin 3.10 Albumin/Globulin Ratio 0.64 Lactic Acid Level 1.6 Medications Medications Current Medications Naloxone HCl (Narcan) 0.4 mg Q3M PRN IV DECREASED REPIRATORY RATE; Start at 10:30 Ondansetron HCl (Zofran Inj) 4 mg Q6H PRN IV NAUSEA AND/OR VOMITING; Start 01/12 at 10:30 Nitroglycerin (Nitroglycerin (Sl Tab) 0.4 Mg) 1 tab Q5M PRN SL CHEST PAIN; Start 06/06/16 at 10:30 Acetaminophen (Tylenol Liquid) 650 mg Q6H PRN PO PAIN LEVEL 1-3 OR FEVER Last administered on 07/09/16 20:10; Admin Dose 650 MG; Start 06/06/16 at 10:30 Morphine Sulfate (morphine) 2 mg Q4H PRN IV PAIN LEVEL 7-10 Last administered on 06/15/16 00:22; Admin Dose 2 MG; Start 06/06/16 at 10:30 Docusate Sodium (Colace) 100 mg Q12H PRN PO CONSTIPATION; Start 06/06/16 at 10: 30 Magnesium Hydroxide (Milk Of Mag) 30 ml DAILY PRN PO CONSTIPATION; Start at 10:30 Bisacodyl (Dulcolax) 5 mg DAILY PRN PO CONSTIPATION; Start 06/06/16 at 10:30 Collagenase (Santyl) 1 applic DAILY TOP Last administered on 07/09/16 08:16; Admin Dose 1 APPLIC; Start 06/07/16 at 09:00 Collagenase (Santyl) 1 applic PRN PRN TOP WOUND CARE; Start 06/06/16 at 16:00 IV Flush (NS 10 ml) 10 ml PRN PRN IV IV PROTOCOL; Start 06/06/16 at 18:30 Ascorbic Acid (Vitamin C) 500 mg DAILY GTB Last administered on 07/10/16 09:48 ; Admin Dose 500 MG; Start 06/07/16 at 09:00 Aspirin (Aspirin) 325 mg DAILY GTB Last administered on 07/10/16 09:47; Admin Dose 325 MG; Start 06/07/16 at 09:00 Multivitamins (Thera-Plus) 5 ml DAILY GTB Last administered on 07/10/16 09:47 ; Admin Dose 5 ML; Start 06/07/16 at 09:00 Tamsulosin HCl (Flomax) 0.4 mg HS PO Last administered on 07/09/16 21:40; Admin Dose 0.4 MG; Start 06/07/16 at 21:00 Mupirocin (Bactroban) 1 applic BID TOP Last administered on 07/10/16 08:24; Admin Dose 1 APPLIC; Start 06/07/16 at 21:00 Metoclopramide HCl (Reglan) 10 mg Q6H PRN IV NAUSEA AND/OR VOMITING Last administered on 06/08/16 18:00; Admin Dose 10 MG; Start 06/08/16 at 09:30 Lorazepam (Ativan) 1 mg Q6H PRN IV AGITATION/ANXIETY Last administered on 23:15; Admin Dose 1 MG; Start 06/09/16 at 13:30 Citric Acid/ Sodium Citrate (Bicitra) 30 ml BID PO Last administered on 09:47; Admin Dose 30 ML; Start 06/26/16 at 21:00 Potassium Chloride (Potassium Chloride Pwd/Soln) 40 meq DAILY GTB Last administered on 07/10/16 09:47; Admin Dose 40 MEQ; Start 06/30/16 at 10:30 Atenolol (Tenormin) 12.5 mg BID PO Last administered on 07/10/16 09:48; Admin Dose 12.5 MG; Start 06/30/16 at 23:00 Diagnostic Test (Pha) (Accu-Chek) 1 ea Q12 XX Last administered on 07/09/16 21 :40; Admin Dose 1 EA; Start 07/05/16 at 09:00 Magnesium Oxide (Mag-Ox 400) 200 mg DAILY PO Last administered on 07/10/16 09: 48; Admin Dose 200 MG; Start 07/05/16 at 12:00; Stop 07/12/16 at 08:00 Lansoprazole (Prevacid) 30 mg DAILY@06 GTB Last administered on 07/10/16 06:44 ; Admin Dose 30 MG; Start 07/06/16 at 06:00 Furosemide (Lasix) 20 mg DAILY IV Last administered on 07/10/16 09:48; Admin Dose 20 MG; Start 07/07/16 at 09:00 Calcium Carbonate (Tums) 1,000 mg BID PO Last administered on 07/10/16 09:47; Admin Dose 1,000 MG; Start 07/06/16 at 21:00 Cholecalciferol (Vitamin D) 800 units DAILY PO Last administered on 07/10/16 09:47; Admin Dose 800 UNITS; Start 07/07/16 at 09:00 Midodrine (Proamatine) 5 mg TID@,,17 GTB Last administered on 07/10/16 12: 52; Admin Dose 5 MG; Start 07/07/16 at 17:00 JAYA GORE July 10, 2016 13:55
--- NOTE | 2016-07-10 18:24 | PN ---
Date/Time of Note Date/Time of Note DATE: 07/10/16 TIME: 18:23 Assessment/Plan VTE Prophylaxis VTE Prophylaxis Intervention: other Lines/Catheters IV Catheter Type (from Nrs): Peripheral IV Urinary Cath still in place: Yes Reason Cath still needed: other (indicate) Assessment/Plan Chief Complaint/Hosp Course IMPRESSION: 1. Sepsis 2. Pneumonia. aspiration 3. Leukocytosis. 4. Hematuria. better 5. Lactic acidosis. better 6. Respiratory failure. 7. Gastrostomy tube placement. 8. Anemia. 9. Atrial fibrillation. 10. History of congestive heart failure with decreased ejection fraction. 11. vdrf 12. History of paroxysmal atrial fibrillation. 13. The patient now has decubitus. 14 uti 15 polymirobial sepsis 16 pul edema BETTER 17 no gi bleed 18 hypokalemia better 19 diarrhea cdiff neg 20 HYPOCALCEMEIA plan per id iv fluid poor prognosis ck labs weaning per pulmonary and cardio surgery consult GT FEEDING per iD bicitra snf when stable poor prognosis lytes replacement Problems: Subjective 24 Hr Interval Summary Subjective hx not possible: other (ON VENT) Exam/Review of Systems Vital Signs Vitals Vital Signs Date Time Temp Pulse Resp B/P Pulse Ox O2 Delivery O2 Flow Rate FiO2 07/10/16 17:30 60 24 99 30 07/10/16 15:57 98.0 140/58 Intake and Output 07/09/16 07/09/16 07/10/16 15:00 23:00 07:00 Intake Total 950 ml 850 ml Output Total 1300 ml 800 ml Balance -350 ml 50 ml Exam Respiratory: clear to auscultation Cardiovascular: regular rate and rhythm Gastrointestinal: bowel sounds (+), soft Extremities: edema (TR) Results Result Diagram: 07/10/16 0642 07/10/16 0642 Results 24 hrs Laboratory Tests Test 07/09/16 21:34 07/10/16 06:42 07/10/16 11:30 Bedside Glucose 118 White Blood Count 30.6 H Red Blood Count 3.16 L Hemoglobin 9.3 L Hematocrit 29.2 L Mean Corpuscular Volume 92.4 Mean Corpuscular Hemoglobin 29.4 Mean Corpuscular Hemoglobin Concent 31.8 L Red Cell Distribution Width 18.7 H Platelet Count 458 #H Mean Platelet Volume 11.0 H Neutrophils % 85.0 H Band Neutrophils % 1.0 Lymphocytes % 9.0 L Monocytes % 3.0 Eosinophils % Myelocytes % 2.0 H Neutrophils # 26.0 H Lymphocytes # 2.8 Monocytes # 0.9 Eosinophils # Myelocytes # 0.6 Polychromasia 1+ Sodium Level 140 Potassium Level 3.9 Chloride Level 112 H Carbon Dioxide Level 24 Anion Gap 8 Blood Urea Nitrogen 41 H Creatinine 0.86 Glucose Level 102 Calcium Level 6.8 L Total Bilirubin 0.0 L Direct Bilirubin 0.00 Indirect Bilirubin 0.0 Aspartate Amino Transf (AST/SGOT) 32 Alanine Aminotransferase (ALT/SGPT) 31 Alkaline Phosphatase 264 H Total Protein 5.1 L Albumin 2.0 L Globulin 3.10 Albumin/Globulin Ratio 0.64 Lactic Acid Level 1.6 Medications Medications Current Medications Naloxone HCl (Narcan) 0.4 mg Q3M PRN IV DECREASED REPIRATORY RATE; Start at 10:30 Ondansetron HCl (Zofran Inj) 4 mg Q6H PRN IV NAUSEA AND/OR VOMITING; Start 01/12 at 10:30 Nitroglycerin (Nitroglycerin (Sl Tab) 0.4 Mg) 1 tab Q5M PRN SL CHEST PAIN; Start 06/06/16 at 10:30 Acetaminophen (Tylenol Liquid) 650 mg Q6H PRN PO PAIN LEVEL 1-3 OR FEVER Last administered on 07/09/16 20:10; Admin Dose 650 MG; Start 06/06/16 at 10:30 Morphine Sulfate (morphine) 2 mg Q4H PRN IV PAIN LEVEL 7-10 Last administered on 06/15/16 00:22; Admin Dose 2 MG; Start 06/06/16 at 10:30 Docusate Sodium (Colace) 100 mg Q12H PRN PO CONSTIPATION; Start 06/06/16 at 10: 30 Magnesium Hydroxide (Milk Of Mag) 30 ml DAILY PRN PO CONSTIPATION; Start at 10:30 Bisacodyl (Dulcolax) 5 mg DAILY PRN PO CONSTIPATION; Start 06/06/16 at 10:30 Collagenase (Santyl) 1 applic DAILY TOP Last administered on 07/09/16 08:16; Admin Dose 1 APPLIC; Start 06/07/16 at 09:00 Collagenase (Santyl) 1 applic PRN PRN TOP WOUND CARE; Start 06/06/16 at 16:00 IV Flush (NS 10 ml) 10 ml PRN PRN IV IV PROTOCOL; Start 06/06/16 at 18:30 Ascorbic Acid (Vitamin C) 500 mg DAILY GTB Last administered on 07/10/16 09:48 ; Admin Dose 500 MG; Start 06/07/16 at 09:00 Aspirin (Aspirin) 325 mg DAILY GTB Last administered on 07/10/16 09:47; Admin Dose 325 MG; Start 06/07/16 at 09:00 Multivitamins (Thera-Plus) 5 ml DAILY GTB Last administered on 07/10/16 09:47 ; Admin Dose 5 ML; Start 06/07/16 at 09:00 Tamsulosin HCl (Flomax) 0.4 mg HS PO Last administered on 07/09/16 21:40; Admin Dose 0.4 MG; Start 06/07/16 at 21:00 Mupirocin (Bactroban) 1 applic BID TOP Last administered on 07/10/16 08:24; Admin Dose 1 APPLIC; Start 06/07/16 at 21:00 Metoclopramide HCl (Reglan) 10 mg Q6H PRN IV NAUSEA AND/OR VOMITING Last administered on 06/08/16 18:00; Admin Dose 10 MG; Start 06/08/16 at 09:30 Lorazepam (Ativan) 1 mg Q6H PRN IV AGITATION/ANXIETY Last administered on 23:15; Admin Dose 1 MG; Start 06/09/16 at 13:30 Citric Acid/ Sodium Citrate (Bicitra) 30 ml BID PO Last administered on 09:47; Admin Dose 30 ML; Start 06/26/16 at 21:00 Potassium Chloride (Potassium Chloride Pwd/Soln) 40 meq DAILY GTB Last administered on 07/10/16 09:47; Admin Dose 40 MEQ; Start 06/30/16 at 10:30 Atenolol (Tenormin) 12.5 mg BID PO Last administered on 07/10/16 09:48; Admin Dose 12.5 MG; Start 06/30/16 at 23:00 Diagnostic Test (Pha) (Accu-Chek) 1 ea Q12 XX Last administered on 07/09/16 21 :40; Admin Dose 1 EA; Start 07/05/16 at 09:00 Magnesium Oxide (Mag-Ox 400) 200 mg DAILY PO Last administered on 07/10/16 09: 48; Admin Dose 200 MG; Start 07/05/16 at 12:00; Stop 07/12/16 at 08:00 Lansoprazole (Prevacid) 30 mg DAILY@06 GTB Last administered on 07/10/16 06:44 ; Admin Dose 30 MG; Start 07/06/16 at 06:00 Furosemide (Lasix) 20 mg DAILY IV Last administered on 07/10/16 09:48; Admin Dose 20 MG; Start 07/07/16 at 09:00 Calcium Carbonate (Tums) 1,000 mg BID PO Last administered on 07/10/16 09:47; Admin Dose 1,000 MG; Start 07/06/16 at 21:00 Cholecalciferol (Vitamin D) 800 units DAILY PO Last administered on 07/10/16 09:47; Admin Dose 800 UNITS; Start 07/07/16 at 09:00 Midodrine (Proamatine) 5 mg TID@,, GTB Last administered on 07/10/16 12: 52; Admin Dose 5 MG; Start 07/07/16 at 17:00 HOLLI LINDER MD July 10, 2016 18:24
[2016-07-10] MEDS: TAMSULOSIN (SR) 0.4 MG CAP PO SCH (21:28)
[2016-07-11] VITALS (25 sets, daily range): BP systolic 118–129; BP diastolic 56–93; PULSE 59–80; RESP 16–31
[2016-07-11] MEDS: ALBUTEROL 18 GM INHALER INH SCH ×6 (01:35→21:44)
[2016-07-11] MEDS: IPRATROPIUM (HFA) 12.9 GM INHALER INH SCH ×6 (01:35→21:44)
[2016-07-11] MEDS: LANSOPRAZOLE 30 MG CAP GTB SCH (06:51)
[2016-07-11 07:24] LABS: ADD SCAN DIFF NO
[2016-07-11 07:31] LABS: ABNORMAL IP MESSAGE 1; HEMATOCRIT 29.4 % (42.0-52.0); HEMOGLOBIN 9.3 g/dl (14.0-18.0); MEAN CORPUSCULAR HEMOGLOBIN 29.5 pg (29.0-33.0); MEAN CORPUSCULAR HGB CONC 31.6 g/dl (32.0-37.0); MEAN CORPUSCULAR VOLUME 93.3 fl (82.0-101.0); MEAN PLATELET VOLUME 10.4 fl (7.4-10.4); PLATELET COUNT 429 10^3/UL (140-415); RED BLOOD COUNT 3.15 10^6/ul (4.70-6.10); RED CELL DISTRIBUTION WIDTH 19.2 % (11.5-14.5); WHITE BLOOD COUNT 27.3 10^3/ul (4.8-10.8)
[2016-07-11] MEDS: COLLAGENASE 30 GM TUBE TOP SCH (09:00)
[2016-07-11] MEDS: ACCU-CHEK XX SCH ×2 (09:00→21:29)
[2016-07-11] MEDS: MIDODRINE 5 MG TAB GTB SCH ×3 (09:00→17:03)
[2016-07-11] MEDS: MULTIVITAMINS 5 ML CUP GTB SCH (09:02)
[2016-07-11] MEDS: FUROSEMIDE 20 MG INJ IV SCH (09:02)
[2016-07-11] MEDS: CITRIC ACID/SODIUM CITRATE 15 ML CUP PO SCH ×2 (09:02→21:28)
[2016-07-11] MEDS: CALCIUM CARBONATE 500 MG CHEW TAB PO SCH ×2 (09:04→21:28)
[2016-07-11] MEDS: ASCORBIC ACID 500 MG TAB GTB SCH (09:04)
[2016-07-11] MEDS: POTASSIUM CHLORIDE 20 MEQ POWDER FOR ORAL SOLN GTB SCH (09:05)
[2016-07-11] MEDS: ASPIRIN 325 MG TAB GTB SCH (09:05)
[2016-07-11] MEDS: CHOLECALCIFEROL 400 UNITS TAB PO SCH (09:05)
[2016-07-11] MEDS: MAGNESIUM OXIDE 400 MG TAB PO SCH (09:05)
[2016-07-11] MEDS: ATENOLOL 25 MG TAB PO SCH ×2 (09:06→21:29)
[2016-07-11] MEDS: MUPIROCIN 2% 22 GM OINT TOP SCH ×2 (09:06→21:29)
[2016-07-11 09:18] LABS: LYMPHOCYTES # 2.5 10^3/ul (0.8-2.9); MONOCYTE # 2.5 10^3/ul (0.3-0.9); NEUTROPHIL # 21.6 10^3/ul (1.6-7.5)
--- NOTE | 2016-07-11 09:18 | CONS ---
Date/Time of Note Date/Time of Note DATE: 07/11/16 TIME: 09:16 Assessment/Plan Assessment/Plan Additional Assessment/Plan 1.CHF-systolic acute on chonic-reasonable volume status at this time - will keep euvolemic 2.Resp failure s/p trach on vent - will monitior for now 3.Cardiomyopathy-LVEF 25-30% - no plan for ICD upgrade now 4.HTN-with recurrent episodes of Hotn on midodrine as necessary 5.PPM-s/p interrogation with proper function-episodes of SVT and short episode VT 06/09/16/good battery life 6.Leukocytosis-persistent - on anti-Bx 7.Tachycardia-PAF/AFL rate controlled 8.Perforated viscous s/p IR drain now removed with ongoing leukocytosis 9. Renal insuff-? overdiuresis-now improved and back to baseline 10. Wide complex tachy-NSVT today 06/30/16 Consultation Date/Type/Reason Admit Date/Time Jun 06, 2016 at 08:08 Initial Consult Date 06/07/16 Type of Consultation: Cardiology Referring Provider: HOLLI LINDER MD 24 HR Interval Summary Free Text/Dictation NO acute vents - paced on tele -will monitor closely ROS: No fever, no chills, no nausea, no vomiting, no diarrhea/constipation No recent weight changes No chest pain, no PND, no orthopnea No dizziness, blurred vision No thirst, no heat or cold intolerance (per nurse) Exam/Review of Systems Vital Signs Vitals Vital Signs Date Time Temp Pulse Resp B/P Pulse Ox O2 Delivery O2 Flow Rate FiO2 07/11/16 08:30 98.5 75 18 122/56 90 07/11/16 07:35 30 Intake and Output 07/10/16 07/10/16 07/11/16 15:00 23:00 07:00 Intake Total 980 ml 900 ml Output Total 2900 ml 2350 ml Balance -1920 ml -1450 ml Exam General: WN/WD/NAD, AOx 0 HEENT: Unicetric/atraumatic/EOMI (does not follow commands) NECK: trach, no LAD Lymph: no lymphadenopathy HEART: regular with no S3, II/ systolic murmur at apex LUNGS: Coarse sounds ABD: soft, NT, ND, +BS : Intact Neuro: non focal SKIN: chronic changes EXT: trace edema Results Result Diagram: 07/11/16 0650 07/10/16 0642 Results 24 hrs Laboratory Tests Test 07/10/16 11:30 07/10/16 21:31 07/11/16 06:50 Lactic Acid Level 1.6 Bedside Glucose 108 White Blood Count 27.3 H Red Blood Count 3.15 L Hemoglobin 9.3 L Hematocrit 29.4 L Mean Corpuscular Volume 93.3 Mean Corpuscular Hemoglobin 29.5 Mean Corpuscular Hemoglobin Concent 31.6 L Red Cell Distribution Width 19.2 H Platelet Count 429 H Mean Platelet Volume 10.4 Medications Medications Current Medications Naloxone HCl (Narcan) 0.4 mg Q3M PRN IV DECREASED REPIRATORY RATE; Start at 10:30 Ondansetron HCl (Zofran Inj) 4 mg Q6H PRN IV NAUSEA AND/OR VOMITING; Start 01/12 at 10:30 Nitroglycerin (Nitroglycerin (Sl Tab) 0.4 Mg) 1 tab Q5M PRN SL CHEST PAIN; Start 06/06/16 at 10:30 Acetaminophen (Tylenol Liquid) 650 mg Q6H PRN PO PAIN LEVEL 1-3 OR FEVER Last administered on 07/09/16 20:10; Admin Dose 650 MG; Start 06/06/16 at 10:30 Morphine Sulfate (morphine) 2 mg Q4H PRN IV PAIN LEVEL 7-10 Last administered on 06/15/16 00:22; Admin Dose 2 MG; Start 06/06/16 at 10:30 Docusate Sodium (Colace) 100 mg Q12H PRN PO CONSTIPATION; Start 06/06/16 at 10: 30 Magnesium Hydroxide (Milk Of Mag) 30 ml DAILY PRN PO CONSTIPATION; Start at 10:30 Bisacodyl (Dulcolax) 5 mg DAILY PRN PO CONSTIPATION; Start 06/06/16 at 10:30 Collagenase (Santyl) 1 applic DAILY TOP Last administered on 07/09/16 08:16; Admin Dose 1 APPLIC; Start 06/07/16 at 09:00 Collagenase (Santyl) 1 applic PRN PRN TOP WOUND CARE; Start 06/06/16 at 16:00 IV Flush (NS 10 ml) 10 ml PRN PRN IV IV PROTOCOL; Start 06/06/16 at 18:30 Ascorbic Acid (Vitamin C) 500 mg DAILY GTB Last administered on 07/11/16 09:04 ; Admin Dose 500 MG; Start 06/07/16 at 09:00 Aspirin (Aspirin) 325 mg DAILY GTB Last administered on 07/11/16 09:05; Admin Dose 325 MG; Start 06/07/16 at 09:00 Multivitamins (Thera-Plus) 5 ml DAILY GTB Last administered on 07/11/16 09:02 ; Admin Dose 5 ML; Start 06/07/16 at 09:00 Tamsulosin HCl (Flomax) 0.4 mg HS PO Last administered on 07/10/16 21:28; Admin Dose 0.4 MG; Start 06/07/16 at 21:00 Mupirocin (Bactroban) 1 applic BID TOP Last administered on 07/11/16 09:06; Admin Dose 1 APPLIC; Start 06/07/16 at 21:00 Metoclopramide HCl (Reglan) 10 mg Q6H PRN IV NAUSEA AND/OR VOMITING Last administered on 06/08/16 18:00; Admin Dose 10 MG; Start 06/08/16 at 09:30 Lorazepam (Ativan) 1 mg Q6H PRN IV AGITATION/ANXIETY Last administered on 23:15; Admin Dose 1 MG; Start 06/09/16 at 13:30 Citric Acid/ Sodium Citrate (Bicitra) 30 ml BID PO Last administered on 09:02; Admin Dose 15 ML; Start 06/26/16 at 21:00 Potassium Chloride (Potassium Chloride Pwd/Soln) 40 meq DAILY GTB Last administered on 07/11/16 09:05; Admin Dose 40 MEQ; Start 06/30/16 at 10:30 Atenolol (Tenormin) 12.5 mg BID PO Last administered on 07/11/16 09:06; Admin Dose 12.5 MG; Start 06/30/16 at 23:00 Diagnostic Test (Pha) (Accu-Chek) 1 ea Q12 XX Last administered on 07/10/16 21 :31; Admin Dose 1 EA; Start 07/05/16 at 09:00 Magnesium Oxide (Mag-Ox 400) 200 mg DAILY PO Last administered on 07/11/16 09: 05; Admin Dose 200 MG; Start 07/05/16 at 12:00; Stop 07/12/16 at 08:00 Lansoprazole (Prevacid) 30 mg DAILY@06 GTB Last administered on 07/11/16 06:51 ; Admin Dose 30 MG; Start 07/06/16 at 06:00 Furosemide (Lasix) 20 mg DAILY IV Last administered on 07/11/16 09:02; Admin Dose 20 MG; Start 07/07/16 at 09:00 Calcium Carbonate (Tums) 1,000 mg BID PO Last administered on 07/11/16 09:04; Admin Dose 1,000 MG; Start 07/06/16 at 21:00 Cholecalciferol (Vitamin D) 800 units DAILY PO Last administered on 07/11/16 09:05; Admin Dose 800 UNITS; Start 07/07/16 at 09:00 Midodrine (Proamatine) 5 mg TID@,, GTB Last administered on 07/10/16 12: 52; Admin Dose 5 MG; Start 07/07/16 at 17:00 ZEUS CHAPPELL MD July 11, 2016 09:18
[2016-07-11] MEDS: COLISTIMETHATE (25 MG/ML INHAL SYG) NEB SCH ×2 (09:24→19:33)
--- NOTE | 2016-07-11 13:20 | PN ---
Date/Time of Note Date/Time of Note DATE: 07/11/16 TIME: 13:19 Assessment/Plan Lines/Catheters IV Catheter Type (from [facility]): Peripheral IV Alfonso in Place (from [facility]): Yes Assessment/Plan Chief Complaint/Hosp Course 1. Contained perforated viscous s/p IR drain 06/11. Cx noted. Leukocytosis resolved. Tube feeds. Bowel function. Drain dcd. s/p Abx. Persistent leukocytosis. Chemical code. -defer further w/u to primary team 2. Pneumonia -pulmonary toilette -abx 3. Sepsis, recent. Leukocytosis worsening again. -abx -as above 4. Sacral decubitus ulcer -off load -nutrition optimization -vit c -local care 5. Chronic AFib -rate control -optimize electrolytes -tx infections 6. Anemia, dropped again -? source -? tx 7. Hypoalbuminemia -eventual nutritional optimization 8. CHF -judicious fluid management -cardiac optimization Thank you, Problems: Subjective 24 Hr Interval Summary Leukocytosis. No f/c. No cough. No sz. No rashes. No bloating. No vomiting. No bleeding. Bowel function. Exam/Review of Systems Vital Signs Vitals Vital Signs Date Time Temp Pulse Resp B/P Pulse Ox O2 Delivery O2 Flow Rate FiO2 07/11/16 12:45 62 07/11/16 11:47 98.4 18 123/58 98 07/11/16 11:15 30 Intake and Output 07/10/16 07/10/16 07/11/16 15:00 23:00 07:00 Intake Total 980 ml 900 ml Output Total 2900 ml 2350 ml Balance -1920 ml -1450 ml Exam Free Text/Dictation Constitutional: No distress, No oriented Psych: confusion, No anxiety Head: atraumatic, normocephalic Eyes: PERRL, nl conjunctiva, No icteric ENMT: mucosa pink and moist, nl external ears & nose, nl lips & teeth Neck: jvd (min), non-tender Respiratory: No congested cough, No labored breathing Cardiovascular: No edema, No regular rate and rhythm Gastrointestinal: soft, PEGNo distended, No firm, No rebound or guarding Musculoskeletal: No joint tenderness, No nl gait and stance Extremities: No calf tenderness, No cyanosis Neurological: No nl mental status, No nl speech, No nl strength Skin: nl turgor, rash or lesions (Sacral and LE decubitus ulcerations), No diaphoresis Lymph: nl lymph nodes Results Result Diagram: 07/11/16 0650 07/10/16 0642 DAREK AHAMDI MD July 11, 2016 13:20
--- NOTE | 2016-07-11 13:33 | CONS ---
Date/Time of Note Date/Time of Note DATE: 07/11/16 TIME: 13:31 Assessment/Plan Assessment/Plan Chief Complaint/Hosp Course SUBJECTIVE: No acute changes. No fevers. Looks comfortable MICROBIOLOGY: Blood culture on 06/30/2016 negative. Urine culture negative. Endotracheal aspirate grew Acinetobacter baumannii and Klebsiella pneumoniae. INDWELLINGS: Trach, PEG, Alfonso Abx: Colistin INH PHYSICAL EXAMINATION: GENERAL: This is a fragile, chronically ill-appearing, elderly man who is in no distress. HEENT: Head atraumatic, normocephalic. Sclerae anicteric. Buccal mucosa dry. NECK: Supple. Tracheostomy present. CHEST: Rise symmetrical. Breath sounds diminished to bases. HEART: S1, S2. ABDOMEN: Soft. Bowel tones hypoactive. EXTREMITIES: With trace edema. ASSESSMENT: 1. Systemic inflammatory response syndrome with persistent leukocytosis===> L acid 1,6, pending procalcitonin level 2. Chronic respiratory failure, status post pneumonia, with endotracheal aspirate growing multi-drug resistant organisms===> on colistin inhalation. 3. Status post intra-abdominal abscess drainage==> repeat CT + resolution. 4. Sacral decubitus. 5. Atrial fibrillation. 6. Acute on chronic anemia. 7. Status post methicillin-resistant Staphylococcus aureus bacteremia and urinary tract infection on admission. PLAN: Clinically unchanged, add Merrem to cover GNR growing from his wound, continue Colistin INH, f/u repeat cx's, pending WBC labeled nuclear scan and sacral wound cx DW staff Problems: Consultation Date/Type/Reason Admit Date/Time Jun 06, 2016 at 08:08 Initial Consult Date 06/07/16 Type of Consultation: ID Referring Provider: HOLLI LINDER MD Exam/Review of Systems Vital Signs Vitals Vital Signs Date Time Temp Pulse Resp B/P Pulse Ox O2 Delivery O2 Flow Rate FiO2 07/11/16 12:45 62 07/11/16 11:47 98.4 18 123/58 98 07/11/16 11:15 30 Intake and Output 07/10/16 07/10/16 07/11/16 15:00 23:00 07:00 Intake Total 980 ml 900 ml Output Total 2900 ml 2350 ml Balance -1920 ml -1450 ml Results Result Diagram: 07/11/16 0650 07/10/16 0642 Results 24 hrs Laboratory Tests Test 07/10/16 21:31 07/11/16 06:50 07/11/16 10:20 Bedside Glucose 108 109 White Blood Count 27.3 H Red Blood Count 3.15 L Hemoglobin 9.3 L Hematocrit 29.4 L Mean Corpuscular Volume 93.3 Mean Corpuscular Hemoglobin 29.5 Mean Corpuscular Hemoglobin Concent 31.6 L Red Cell Distribution Width 19.2 H Platelet Count 429 H Mean Platelet Volume 10.4 Neutrophils % 79.0 H Band Neutrophils % 3.0 Lymphocytes % 9.0 L Monocytes % 9.0 Neutrophils # 21.6 H Lymphocytes # 2.5 Monocytes # 2.5 H Medications Medications Current Medications Naloxone HCl (Narcan) 0.4 mg Q3M PRN IV DECREASED REPIRATORY RATE; Start at 10:30 Ondansetron HCl (Zofran Inj) 4 mg Q6H PRN IV NAUSEA AND/OR VOMITING; Start 01/12 at 10:30 Nitroglycerin (Nitroglycerin (Sl Tab) 0.4 Mg) 1 tab Q5M PRN SL CHEST PAIN; Start 06/06/16 at 10:30 Acetaminophen (Tylenol Liquid) 650 mg Q6H PRN PO PAIN LEVEL 1-3 OR FEVER Last administered on 07/09/16 20:10; Admin Dose 650 MG; Start 06/06/16 at 10:30 Morphine Sulfate (morphine) 2 mg Q4H PRN IV PAIN LEVEL 7-10 Last administered on 06/15/16 00:22; Admin Dose 2 MG; Start 06/06/16 at 10:30 Docusate Sodium (Colace) 100 mg Q12H PRN PO CONSTIPATION; Start 06/06/16 at 10: 30 Magnesium Hydroxide (Milk Of Mag) 30 ml DAILY PRN PO CONSTIPATION; Start at 10:30 Bisacodyl (Dulcolax) 5 mg DAILY PRN PO CONSTIPATION; Start 06/06/16 at 10:30 Collagenase (Santyl) 1 applic DAILY TOP Last administered on 07/09/16 08:16; Admin Dose 1 APPLIC; Start 06/07/16 at 09:00 Collagenase (Santyl) 1 applic PRN PRN TOP WOUND CARE; Start 06/06/16 at 16:00 IV Flush (NS 10 ml) 10 ml PRN PRN IV IV PROTOCOL; Start 06/06/16 at 18:30 Ascorbic Acid (Vitamin C) 500 mg DAILY GTB Last administered on 07/11/16 09:04 ; Admin Dose 500 MG; Start 06/07/16 at 09:00 Aspirin (Aspirin) 325 mg DAILY GTB Last administered on 07/11/16 09:05; Admin Dose 325 MG; Start 06/07/16 at 09:00 Multivitamins (Thera-Plus) 5 ml DAILY GTB Last administered on 07/11/16 09:02 ; Admin Dose 5 ML; Start 06/07/16 at 09:00 Tamsulosin HCl (Flomax) 0.4 mg HS PO Last administered on 07/10/16 21:28; Admin Dose 0.4 MG; Start 06/07/16 at 21:00 Mupirocin (Bactroban) 1 applic BID TOP Last administered on 07/11/16 09:06; Admin Dose 1 APPLIC; Start 06/07/16 at 21:00 Metoclopramide HCl (Reglan) 10 mg Q6H PRN IV NAUSEA AND/OR VOMITING Last administered on 06/08/16 18:00; Admin Dose 10 MG; Start 06/08/16 at 09:30 Lorazepam (Ativan) 1 mg Q6H PRN IV AGITATION/ANXIETY Last administered on 23:15; Admin Dose 1 MG; Start 06/09/16 at 13:30 Citric Acid/ Sodium Citrate (Bicitra) 30 ml BID PO Last administered on 09:02; Admin Dose 15 ML; Start 06/26/16 at 21:00 Potassium Chloride (Potassium Chloride Pwd/Soln) 40 meq DAILY GTB Last administered on 07/11/16 09:05; Admin Dose 40 MEQ; Start 06/30/16 at 10:30 Atenolol (Tenormin) 12.5 mg BID PO Last administered on 07/11/16 09:06; Admin Dose 12.5 MG; Start 06/30/16 at 23:00 Diagnostic Test (Pha) (Accu-Chek) 1 ea Q12 XX Last administered on 07/11/16 09 :00; Admin Dose 1 EA; Start 07/05/16 at 09:00 Magnesium Oxide (Mag-Ox 400) 200 mg DAILY PO Last administered on 07/11/16 09: 05; Admin Dose 200 MG; Start 07/05/16 at 12:00; Stop 07/12/16 at 08:00 Lansoprazole (Prevacid) 30 mg DAILY@06 GTB Last administered on 07/11/16 06:51 ; Admin Dose 30 MG; Start 07/06/16 at 06:00 Furosemide (Lasix) 20 mg DAILY IV Last administered on 07/11/16 09:02; Admin Dose 20 MG; Start 07/07/16 at 09:00 Calcium Carbonate (Tums) 1,000 mg BID PO Last administered on 07/11/16 09:04; Admin Dose 1,000 MG; Start 07/06/16 at 21:00 Cholecalciferol (Vitamin D) 800 units DAILY PO Last administered on 07/11/16 09:05; Admin Dose 800 UNITS; Start 07/07/16 at 09:00 Midodrine (Proamatine) 5 mg TID@, GTB Last administered on 07/10/16 12: 52; Admin Dose 5 MG; Start 07/07/16 at 17:00 JOSE G CUNNINGHAM NP July 11, 2016 13:33
--- NOTE | 2016-07-11 14:12 | CONS ---
Date/Time of Note Date/Time of Note DATE: 07/11/16 TIME: 14:11 Consult Date/Type/Reason Admit Date/Time Jun 06, 2016 at 08:08 Initial Consult Date 06/07/16 Type of Consultation: Pulmonary Ordering Provider: HOLLI LINDER MD Subjective No significant changes patient remains on mechanical ventilation Objective Vital Signs Date Time Temp Pulse Resp B/P Pulse Ox O2 Delivery O2 Flow Rate FiO2 07/11/16 13:00 65 31 100 30 07/11/16 11:47 98.4 123/58 Intake and Output 07/10/16 07/10/16 07/11/16 15:00 23:00 07:00 Intake Total 980 ml 900 ml Output Total 2900 ml 2350 ml Balance -1920 ml -1450 ml Exam PHYSICAL EXAMINATION GENERAL: Elderly gentleman, on mechanical ventilation, VITAL SIGNS: see below. HEENT: Pupils equal, round, and reactive to light. Tracheostomy site clean and intact. CARDIAC: S1, S2, tachycardia. CHEST: Diminished air entry bilaterally. ABDOMEN: Mildly distended. Diminished bowel sounds no guarding or rebound EXTREMITIES: No cyanosis, clubbing edema +2 NEUROLOGIC: Generalized weakness Results/Medications Result Diagram: 07/11/16 0650 07/10/16 0642 Results 24 hrs Laboratory Tests Test 07/10/16 21:31 07/11/16 06:50 07/11/16 10:20 Bedside Glucose 108 109 White Blood Count 27.3 H Red Blood Count 3.15 L Hemoglobin 9.3 L Hematocrit 29.4 L Mean Corpuscular Volume 93.3 Mean Corpuscular Hemoglobin 29.5 Mean Corpuscular Hemoglobin Concent 31.6 L Red Cell Distribution Width 19.2 H Platelet Count 429 H Mean Platelet Volume 10.4 Neutrophils % 79.0 H Band Neutrophils % 3.0 Lymphocytes % 9.0 L Monocytes % 9.0 Neutrophils # 21.6 H Lymphocytes # 2.5 Monocytes # 2.5 H Medications Current Medications Naloxone HCl (Narcan) 0.4 mg Q3M PRN IV DECREASED REPIRATORY RATE; Start at 10:30 Ondansetron HCl (Zofran Inj) 4 mg Q6H PRN IV NAUSEA AND/OR VOMITING; Start 01/12 at 10:30 Nitroglycerin (Nitroglycerin (Sl Tab) 0.4 Mg) 1 tab Q5M PRN SL CHEST PAIN; Start 06/06/16 at 10:30 Acetaminophen (Tylenol Liquid) 650 mg Q6H PRN PO PAIN LEVEL 1-3 OR FEVER Last administered on 07/09/16 20:10; Admin Dose 650 MG; Start 06/06/16 at 10:30 Morphine Sulfate (morphine) 2 mg Q4H PRN IV PAIN LEVEL 7-10 Last administered on 06/15/16 00:22; Admin Dose 2 MG; Start 06/06/16 at 10:30 Docusate Sodium (Colace) 100 mg Q12H PRN PO CONSTIPATION; Start 06/06/16 at 10: 30 Magnesium Hydroxide (Milk Of Mag) 30 ml DAILY PRN PO CONSTIPATION; Start at 10:30 Bisacodyl (Dulcolax) 5 mg DAILY PRN PO CONSTIPATION; Start 06/06/16 at 10:30 Collagenase (Santyl) 1 applic DAILY TOP Last administered on 07/09/16 08:16; Admin Dose 1 APPLIC; Start 06/07/16 at 09:00 Collagenase (Santyl) 1 applic PRN PRN TOP WOUND CARE; Start 06/06/16 at 16:00 IV Flush (NS 10 ml) 10 ml PRN PRN IV IV PROTOCOL; Start 06/06/16 at 18:30 Ascorbic Acid (Vitamin C) 500 mg DAILY GTB Last administered on 07/11/16 09:04 ; Admin Dose 500 MG; Start 06/07/16 at 09:00 Aspirin (Aspirin) 325 mg DAILY GTB Last administered on 07/11/16 09:05; Admin Dose 325 MG; Start 06/07/16 at 09:00 Multivitamins (Thera-Plus) 5 ml DAILY GTB Last administered on 07/11/16 09:02 ; Admin Dose 5 ML; Start 06/07/16 at 09:00 Tamsulosin HCl (Flomax) 0.4 mg HS PO Last administered on 07/10/16 21:28; Admin Dose 0.4 MG; Start 06/07/16 at 21:00 Mupirocin (Bactroban) 1 applic BID TOP Last administered on 07/11/16 09:06; Admin Dose 1 APPLIC; Start 06/07/16 at 21:00 Metoclopramide HCl (Reglan) 10 mg Q6H PRN IV NAUSEA AND/OR VOMITING Last administered on 06/08/16 18:00; Admin Dose 10 MG; Start 06/08/16 at 09:30 Lorazepam (Ativan) 1 mg Q6H PRN IV AGITATION/ANXIETY Last administered on 23:15; Admin Dose 1 MG; Start 06/09/16 at 13:30 Citric Acid/ Sodium Citrate (Bicitra) 30 ml BID PO Last administered on 09:02; Admin Dose 15 ML; Start 06/26/16 at 21:00 Potassium Chloride (Potassium Chloride Pwd/Soln) 40 meq DAILY GTB Last administered on 07/11/16 09:05; Admin Dose 40 MEQ; Start 06/30/16 at 10:30 Atenolol (Tenormin) 12.5 mg BID PO Last administered on 07/11/16 09:06; Admin Dose 12.5 MG; Start 06/30/16 at 23:00 Diagnostic Test (Pha) (Accu-Chek) 1 ea Q12 XX Last administered on 07/11/16 09 :00; Admin Dose 1 EA; Start 07/05/16 at 09:00 Magnesium Oxide (Mag-Ox 400) 200 mg DAILY PO Last administered on 07/11/16 09: 05; Admin Dose 200 MG; Start 07/05/16 at 12:00; Stop 07/12/16 at 08:00 Lansoprazole (Prevacid) 30 mg DAILY@06 GTB Last administered on 07/11/16 06:51 ; Admin Dose 30 MG; Start 07/06/16 at 06:00 Furosemide (Lasix) 20 mg DAILY IV Last administered on 07/11/16 09:02; Admin Dose 20 MG; Start 07/07/16 at 09:00 Calcium Carbonate (Tums) 1,000 mg BID PO Last administered on 07/11/16 09:04; Admin Dose 1,000 MG; Start 07/06/16 at 21:00 Cholecalciferol (Vitamin D) 800 units DAILY PO Last administered on 07/11/16 09:05; Admin Dose 800 UNITS; Start 07/07/16 at 09:00 Midodrine 5 mg 5 mg TID@,, GTB Last administered on 07/10/16 12:52; Admin Dose 5 MG; Start 07/07/16 at 17:00 Meropenem (Merrem 500 Mg/ 100 ml (Pmx)) 100 ml @ 200 mls/hr Q8 IVPB ; Start at 14:00 Assessment/Plan Chief Complaint/Hosp Course Assessment 1. Vent dependent respiratory failure with evidence of healthcare associated pneumonia 2. Status post bowel perforation with drainage, persistent leukocytosis 3. Ongoing sepsis as above 4. Chronic atrial fibrillation 5. Decubitus ulcers 6. Dysphagia with G-tube 7. Chronic encephalopathy Plan 1. Continue mechanical ventilation 2. Continue broad-spectrum antibiotics per infectious diseases 3. Surgical recommendations regarding abdominal drains 4. Palliative care consult appreciated 5. DVT and GI prophylaxis 6. Stable post transfusion Disposition Continue current care Overall prognosis very poor Bioethics consultation Problems: KAVON TROY MD, [facility] July 11, 2016 14:12
[2016-07-11] MEDS: MEROPENEM 500 MG/100 ML (PMX) 100 ML IVPB SCH ×2 (14:59→22:00)
[2016-07-11] MEDS: COLLAGENASE 30 GM TUBE TOP PRN (16:57)
--- NOTE | 2016-07-11 19:17 | PN ---
Date/Time of Note Date/Time of Note DATE: 07/11/16 TIME: 19:15 Assessment/Plan VTE Prophylaxis VTE Prophylaxis Intervention: other Lines/Catheters IV Catheter Type (from Nrs): Peripheral IV Urinary Cath still in place: Yes Reason Cath still needed: other (indicate) Assessment/Plan Chief Complaint/Hosp Course IMPRESSION: 1. Sepsis 2. Pneumonia. aspiration 3. Leukocytosis. sacral decubitus 4. Hematuria. better 5. Lactic acidosis. better 6. Respiratory failure. 7. Gastrostomy tube placement. 8. Anemia. 9. Atrial fibrillation. 10. History of congestive heart failure with decreased ejection fraction. 11. vdrf 12. History of paroxysmal atrial fibrillation. 13. The patient now has decubitus. 14 uti 15 polymirobial sepsis 16 pul edema BETTER 17 no gi bleed 18 hypokalemia better 19 diarrhea cdiff neg 20 HYPOCALCEMEIA plan per id iv fluid poor prognosis ck labs weaning per pulmonary and cardio surgery consult GT FEEDING per iD bicitra snf when stable poor prognosis lytes replacement prn Problems: Subjective 24 Hr Interval Summary Subjective hx not possible: other (on vent) Respiratory: no complaints Cardiovascular: no complaints Exam/Review of Systems Vital Signs Vitals Vital Signs Date Time Temp Pulse Resp B/P Pulse Ox O2 Delivery O2 Flow Rate FiO2 07/11/16 17:15 60 25 98 30 07/11/16 15:28 128/59 07/11/16 11:47 98.4 Intake and Output 07/10/16 07/10/16 07/11/16 15:00 23:00 07:00 Intake Total 980 ml 900 ml Output Total 2900 ml 2350 ml Balance -1920 ml -1450 ml Exam Respiratory: clear to auscultation Cardiovascular: regular rate and rhythm Gastrointestinal: soft Musculoskeletal: nl extremities to inspection Results Result Diagram: 07/11/16 0650 07/10/16 0642 Results 24 hrs Laboratory Tests Test 07/10/16 21:31 07/11/16 06:50 07/11/16 10:20 Bedside Glucose 108 109 White Blood Count 27.3 H Red Blood Count 3.15 L Hemoglobin 9.3 L Hematocrit 29.4 L Mean Corpuscular Volume 93.3 Mean Corpuscular Hemoglobin 29.5 Mean Corpuscular Hemoglobin Concent 31.6 L Red Cell Distribution Width 19.2 H Platelet Count 429 H Mean Platelet Volume 10.4 Neutrophils % 79.0 H Band Neutrophils % 3.0 Lymphocytes % 9.0 L Monocytes % 9.0 Neutrophils # 21.6 H Lymphocytes # 2.5 Monocytes # 2.5 H Medications Medications Current Medications Naloxone HCl (Narcan) 0.4 mg Q3M PRN IV DECREASED REPIRATORY RATE; Start at 10:30 Ondansetron HCl (Zofran Inj) 4 mg Q6H PRN IV NAUSEA AND/OR VOMITING; Start 01/12 at 10:30 Nitroglycerin (Nitroglycerin (Sl Tab) 0.4 Mg) 1 tab Q5M PRN SL CHEST PAIN; Start 06/06/16 at 10:30 Acetaminophen (Tylenol Liquid) 650 mg Q6H PRN PO PAIN LEVEL 1-3 OR FEVER Last administered on 07/09/16 20:10; Admin Dose 650 MG; Start 06/06/16 at 10:30 Morphine Sulfate (morphine) 2 mg Q4H PRN IV PAIN LEVEL 7-10 Last administered on 06/15/16 00:22; Admin Dose 2 MG; Start 06/06/16 at 10:30 Docusate Sodium (Colace) 100 mg Q12H PRN PO CONSTIPATION; Start 06/06/16 at 10: 30 Magnesium Hydroxide (Milk Of Mag) 30 ml DAILY PRN PO CONSTIPATION; Start at 10:30 Bisacodyl (Dulcolax) 5 mg DAILY PRN PO CONSTIPATION; Start 06/06/16 at 10:30 Collagenase (Santyl) 1 applic DAILY TOP Last administered on 07/09/16 08:16; Admin Dose 1 APPLIC; Start 06/07/16 at 09:00 Collagenase (Santyl) 1 applic PRN PRN TOP WOUND CARE Last administered on 16:57; Admin Dose 1 APPLIC; Start 06/06/16 at 16:00 IV Flush (NS 10 ml) 10 ml PRN PRN IV IV PROTOCOL; Start 06/06/16 at 18:30 Ascorbic Acid (Vitamin C) 500 mg DAILY GTB Last administered on 07/11/16 09:04 ; Admin Dose 500 MG; Start 06/07/16 at 09:00 Aspirin (Aspirin) 325 mg DAILY GTB Last administered on 07/11/16 09:05; Admin Dose 325 MG; Start 06/07/16 at 09:00 Multivitamins (Thera-Plus) 5 ml DAILY GTB Last administered on 07/11/16 09:02 ; Admin Dose 5 ML; Start 06/07/16 at 09:00 Tamsulosin HCl (Flomax) 0.4 mg HS PO Last administered on 07/10/16 21:28; Admin Dose 0.4 MG; Start 06/07/16 at 21:00 Mupirocin (Bactroban) 1 applic BID TOP Last administered on 07/11/16 09:06; Admin Dose 1 APPLIC; Start 06/07/16 at 21:00 Metoclopramide HCl (Reglan) 10 mg Q6H PRN IV NAUSEA AND/OR VOMITING Last administered on 06/08/16 18:00; Admin Dose 10 MG; Start 06/08/16 at 09:30 Lorazepam (Ativan) 1 mg Q6H PRN IV AGITATION/ANXIETY Last administered on 23:15; Admin Dose 1 MG; Start 06/09/16 at 13:30 Citric Acid/ Sodium Citrate (Bicitra) 30 ml BID PO Last administered on 09:02; Admin Dose 15 ML; Start 06/26/16 at 21:00 Potassium Chloride (Potassium Chloride Pwd/Soln) 40 meq DAILY GTB Last administered on 07/11/16 09:05; Admin Dose 40 MEQ; Start 06/30/16 at 10:30 Atenolol (Tenormin) 12.5 mg BID PO Last administered on 07/11/16 09:06; Admin Dose 12.5 MG; Start 06/30/16 at 23:00 Diagnostic Test (Pha) (Accu-Chek) 1 ea Q12 XX Last administered on 07/11/16 09 :00; Admin Dose 1 EA; Start 07/05/16 at 09:00 Magnesium Oxide (Mag-Ox 400) 200 mg DAILY PO Last administered on 07/11/16 09: 05; Admin Dose 200 MG; Start 07/05/16 at 12:00; Stop 07/12/16 at 08:00 Lansoprazole (Prevacid) 30 mg DAILY@06 GTB Last administered on 07/11/16 06:51 ; Admin Dose 30 MG; Start 07/06/16 at 06:00 Furosemide (Lasix) 20 mg DAILY IV Last administered on 07/11/16 09:02; Admin Dose 20 MG; Start 07/07/16 at 09:00 Calcium Carbonate (Tums) 1,000 mg BID PO Last administered on 07/11/16 09:04; Admin Dose 1,000 MG; Start 07/06/16 at 21:00 Cholecalciferol (Vitamin D) 800 units DAILY PO Last administered on 07/11/16 09:05; Admin Dose 800 UNITS; Start 07/07/16 at 09:00 Midodrine 5 mg 5 mg TID@, GTB Last administered on 07/11/16 17:03; Admin Dose 5 MG; Start 07/07/16 at 17:00 Meropenem (Merrem 500 Mg/ 100 ml (Pmx)) 100 ml @ 200 mls/hr Q8 IVPB Last administered on 07/11/16 14:59; Admin Dose 200 MLS/HR; Start 07/11/16 at 14:00 HOLLI LINDER MD July 11, 2016 19:17
[2016-07-11] MEDS: TAMSULOSIN (SR) 0.4 MG CAP PO SCH (21:28)
[2016-07-12] VITALS (23 sets, daily range): BP systolic 109–134; BP diastolic 55–78; PULSE 61–84; RESP 17–32
[2016-07-12] MEDS: ALBUTEROL 18 GM INHALER INH SCH ×6 (01:10→21:05)
[2016-07-12] MEDS: IPRATROPIUM (HFA) 12.9 GM INHALER INH SCH ×6 (01:10→21:05)
[2016-07-12] MEDS: MEROPENEM 500 MG/100 ML (PMX) 100 ML IVPB SCH ×3 (06:33→21:59)
[2016-07-12] MEDS: LANSOPRAZOLE 30 MG CAP GTB SCH (06:33)
[2016-07-12] MEDS: COLISTIMETHATE (25 MG/ML INHAL SYG) NEB SCH ×2 (07:30→19:33)
[2016-07-12 07:33] LABS: ADD SCAN DIFF NO
[2016-07-12 07:35] LABS: ABNORMAL IP MESSAGE 1; HEMATOCRIT 28.3 % (42.0-52.0); HEMOGLOBIN 8.8 g/dl (14.0-18.0); MEAN CORPUSCULAR HEMOGLOBIN 29.3 pg (29.0-33.0); MEAN CORPUSCULAR HGB CONC 31.1 g/dl (32.0-37.0); MEAN CORPUSCULAR VOLUME 94.3 fl (82.0-101.0); MEAN PLATELET VOLUME 10.8 fl (7.4-10.4); PLATELET COUNT 374 10^3/UL (140-415); RED CELL DISTRIBUTION WIDTH 19.6 % (11.5-14.5)
[2016-07-12] MEDS: CITRIC ACID/SODIUM CITRATE 15 ML CUP PO SCH ×2 (08:20→21:49)
[2016-07-12] MEDS: ASCORBIC ACID 500 MG TAB GTB SCH (08:21)
[2016-07-12] MEDS: FUROSEMIDE 20 MG INJ IV SCH (08:21)
[2016-07-12] MEDS: CALCIUM CARBONATE 500 MG CHEW TAB PO SCH ×2 (08:21→21:49)
[2016-07-12] MEDS: POTASSIUM CHLORIDE 20 MEQ POWDER FOR ORAL SOLN GTB SCH (08:21)
[2016-07-12] MEDS: ASPIRIN 325 MG TAB GTB SCH (08:21)
[2016-07-12] MEDS: MULTIVITAMINS 5 ML CUP GTB SCH (08:22)
[2016-07-12] MEDS: MIDODRINE 5 MG TAB GTB SCH ×3 (08:22→17:00)
[2016-07-12] MEDS: ATENOLOL 25 MG TAB PO SCH ×2 (08:22→21:49)
[2016-07-12] MEDS: CHOLECALCIFEROL 400 UNITS TAB PO SCH (08:22)
[2016-07-12] MEDS: MUPIROCIN 2% 22 GM OINT TOP SCH ×2 (08:23→21:58)
[2016-07-12] MEDS: COLLAGENASE 30 GM TUBE TOP SCH (08:23)
[2016-07-12] MEDS: ACCU-CHEK XX SCH ×2 (08:23→22:07)
--- NOTE | 2016-07-12 11:13 | CONS ---
Date/Time of Note Date/Time of Note DATE: 07/12/16 TIME: 11:13 Consult Date/Type/Reason Admit Date/Time Jun 06, 2016 at 08:08 Initial Consult Date 06/07/16 Type of Consultation: Pulmonary Ordering Provider: HOLLI LINDER MD Subjective Condition remains unchanged Objective Vital Signs Date Time Temp Pulse Resp B/P Pulse Ox O2 Delivery O2 Flow Rate FiO2 07/12/16 09:56 87 27 99 30 07/12/16 08:34 98.6 109/55 Intake and Output 07/11/16 07/11/16 07/12/16 15:00 23:00 07:00 Intake Total 950 ml 1300 ml Output Total 1200 ml 400 ml 1800 ml Balance -1200 ml 550 ml -500 ml Exam PHYSICAL EXAMINATION GENERAL: Elderly gentleman, on mechanical ventilation, VITAL SIGNS: see below. HEENT: Pupils equal, round, and reactive to light. Tracheostomy site clean and intact. CARDIAC: S1, S2, tachycardia. CHEST: Diminished air entry bilaterally. ABDOMEN: Mildly distended. Diminished bowel sounds no guarding or rebound EXTREMITIES: No cyanosis, clubbing edema +2 NEUROLOGIC: Generalized weakness Results/Medications Result Diagram: 07/12/16 0655 07/10/16 0642 Results 24 hrs Laboratory Tests Test 07/11/16 21:40 07/12/16 06:55 07/12/16 08:19 Bedside Glucose 107 123 White Blood Count 25.0 H Red Blood Count 3.00 L Hemoglobin 8.8 L Hematocrit 28.3 L Mean Corpuscular Volume 94.3 Mean Corpuscular Hemoglobin 29.3 Mean Corpuscular Hemoglobin Concent 31.1 L Red Cell Distribution Width 19.6 H Platelet Count 374 Mean Platelet Volume 10.8 H Medications Current Medications Naloxone HCl (Narcan) 0.4 mg Q3M PRN IV DECREASED REPIRATORY RATE; Start at 10:30 Ondansetron HCl (Zofran Inj) 4 mg Q6H PRN IV NAUSEA AND/OR VOMITING; Start 01/12 at 10:30 Nitroglycerin (Nitroglycerin (Sl Tab) 0.4 Mg) 1 tab Q5M PRN SL CHEST PAIN; Start 06/06/16 at 10:30 Acetaminophen (Tylenol Liquid) 650 mg Q6H PRN PO PAIN LEVEL 1-3 OR FEVER Last administered on 07/09/16 20:10; Admin Dose 650 MG; Start 06/06/16 at 10:30 Morphine Sulfate (morphine) 2 mg Q4H PRN IV PAIN LEVEL 7-10 Last administered on 06/15/16 00:22; Admin Dose 2 MG; Start 06/06/16 at 10:30 Docusate Sodium (Colace) 100 mg Q12H PRN PO CONSTIPATION; Start 06/06/16 at 10: 30 Magnesium Hydroxide (Milk Of Mag) 30 ml DAILY PRN PO CONSTIPATION; Start at 10:30 Bisacodyl (Dulcolax) 5 mg DAILY PRN PO CONSTIPATION; Start 06/06/16 at 10:30 Collagenase (Santyl) 1 applic DAILY TOP Last administered on 07/12/16 08:23; Admin Dose 1 APPLIC; Start 06/07/16 at 09:00 Collagenase (Santyl) 1 applic PRN PRN TOP WOUND CARE Last administered on 16:57; Admin Dose 1 APPLIC; Start 06/06/16 at 16:00 IV Flush (NS 10 ml) 10 ml PRN PRN IV IV PROTOCOL; Start 06/06/16 at 18:30 Ascorbic Acid (Vitamin C) 500 mg DAILY GTB Last administered on 07/12/16 08:21 ; Admin Dose 500 MG; Start 06/07/16 at 09:00 Aspirin (Aspirin) 325 mg DAILY GTB Last administered on 07/12/16 08:21; Admin Dose 325 MG; Start 06/07/16 at 09:00 Multivitamins (Thera-Plus) 5 ml DAILY GTB Last administered on 07/12/16 08:22 ; Admin Dose 5 ML; Start 06/07/16 at 09:00 Tamsulosin HCl (Flomax) 0.4 mg HS PO Last administered on 07/11/16 21:28; Admin Dose 0.4 MG; Start 06/07/16 at 21:00 Mupirocin (Bactroban) 1 applic BID TOP Last administered on 07/12/16 08:23; Admin Dose 1 APPLIC; Start 06/07/16 at 21:00 Metoclopramide HCl (Reglan) 10 mg Q6H PRN IV NAUSEA AND/OR VOMITING Last administered on 06/08/16 18:00; Admin Dose 10 MG; Start 06/08/16 at 09:30 Lorazepam (Ativan) 1 mg Q6H PRN IV AGITATION/ANXIETY Last administered on 23:15; Admin Dose 1 MG; Start 06/09/16 at 13:30 Citric Acid/ Sodium Citrate (Bicitra) 30 ml BID PO Last administered on 08:20; Admin Dose 30 ML; Start 06/26/16 at 21:00 Potassium Chloride (Potassium Chloride Pwd/Soln) 40 meq DAILY GTB Last administered on 07/12/16 08:21; Admin Dose 40 MEQ; Start 06/30/16 at 10:30 Atenolol (Tenormin) 12.5 mg BID PO Last administered on 07/12/16 08:22; Admin Dose 12.5 MG; Start 06/30/16 at 23:00 Diagnostic Test (Pha) (Accu-Chek) 1 ea Q12 XX Last administered on 07/11/16 21 :29; Admin Dose 1 EA; Start 07/05/16 at 09:00 Lansoprazole (Prevacid) 30 mg DAILY@06 GTB Last administered on 07/12/16 06:33 ; Admin Dose 30 MG; Start 07/06/16 at 06:00 Furosemide (Lasix) 20 mg DAILY IV Last administered on 07/12/16 08:21; Admin Dose 20 MG; Start 07/07/16 at 09:00 Calcium Carbonate (Tums) 1,000 mg BID PO Last administered on 07/12/16 08:21; Admin Dose 1,000 MG; Start 07/06/16 at 21:00 Cholecalciferol (Vitamin D) 800 units DAILY PO Last administered on 07/12/16 08:22; Admin Dose 800 UNITS; Start 07/07/16 at 09:00 Midodrine 5 mg 5 mg TID@,,17 GTB Last administered on 07/12/16 08:22; Admin Dose 5 MG; Start 07/07/16 at 17:00 Meropenem (Merrem 500 Mg/ 100 ml (Pmx)) 100 ml @ 200 mls/hr Q8 IVPB Last administered on 07/12/16 06:33; Admin Dose 200 MLS/HR; Start 07/11/16 at 14:00 Linezolid (Zyvox) 600 mg BID PO ; Start 07/12/16 at 12:00 Assessment/Plan Chief Complaint/Hosp Course Assessment 1. Vent dependent respiratory failure with evidence of healthcare associated pneumonia 2. Status post bowel perforation with drainage, persistent leukocytosis 3. Ongoing sepsis as above 4. Chronic atrial fibrillation 5. Decubitus ulcers 6. Dysphagia with G-tube 7. Chronic encephalopathy Plan 1. Continue mechanical ventilation 2. Continue broad-spectrum antibiotics per infectious diseases 3. Surgical recommendations regarding abdominal drains 4. Palliative care consult appreciated 5. DVT and GI prophylaxis 6. Stable post transfusion Disposition Continue current care Overall prognosis very poor Bioethics consultation Problems: KAVON TROY MD, [facility] July 12, 2016 11:13
[2016-07-12 11:33] LABS: LYMPHOCYTES # 1.8 10^3/ul (0.8-2.9); MYELOCYTES # 0.8; NEUTROPHIL # 21.3 10^3/ul (1.6-7.5)
[2016-07-12] MEDS: ZYVOX 600 MG TAB PO SCH ×2 (12:01→21:48)
--- NOTE | 2016-07-12 14:39 | CONS ---
Date/Time of Note Date/Time of Note DATE: 07/12/16 TIME: 14:37 Assessment/Plan Assessment/Plan Chief Complaint/Hosp Course SUBJECTIVE: No acute changes. No fevers. Looks comfortable MICROBIOLOGY: Blood culture on 07/10/2016 negative. Urine culture negative. Endotracheal aspirate grew Acinetobacter baumannii and Klebsiella pneumoniae. Wound cx + Enterococcus/Kleb ESBL INDWELLINGS: Trach, PEG, Alfonso Abx: Colistin INH, Merrem, Zyvox PHYSICAL EXAMINATION: GENERAL: This is a fragile, chronically ill-appearing, elderly man who is in no distress. HEENT: Head atraumatic, normocephalic. Sclerae anicteric. Buccal mucosa dry. NECK: Supple. Tracheostomy present. CHEST: Rise symmetrical. Breath sounds diminished to bases. HEART: S1, S2. ABDOMEN: Soft. Bowel tones hypoactive. EXTREMITIES: With trace edema. ASSESSMENT: 1. Systemic inflammatory response syndrome with persistent leukocytosis 2. Chronic respiratory failure, status post pneumonia, with endotracheal aspirate growing multi-drug resistant organisms===> on colistin inhalation. 3. Status post intra-abdominal abscess drainage==> repeat CT + resolution. 4. Sacral decubitus. 5. Atrial fibrillation. 6. Acute on chronic anemia. 7. Status post methicillin-resistant Staphylococcus aureus bacteremia and urinary tract infection on admission. PLAN: Clinically unchanged,will continue on current abx, continue local wound care, pending WBC labeled nuclear scan [facility] staff Problems: Consultation Date/Type/Reason Admit Date/Time Jun 06, 2016 at 08:08 Initial Consult Date 06/07/16 Type of Consultation: id Referring Provider: HOLLI LINDER MD Exam/Review of Systems Vital Signs Vitals Vital Signs Date Time Temp Pulse Resp B/P Pulse Ox O2 Delivery O2 Flow Rate FiO2 07/12/16 14:00 77 25 99 30 07/12/16 11:31 98.1 118/66 Intake and Output 07/11/16 07/11/16 07/12/16 15:00 23:00 07:00 Intake Total 950 ml 1300 ml Output Total 1200 ml 400 ml 1800 ml Balance -1200 ml 550 ml -500 ml Results Result Diagram: 07/12/16 0655 07/10/16 0642 Results 24 hrs Laboratory Tests Test 07/11/16 21:40 07/12/16 06:55 07/12/16 08:19 Bedside Glucose 107 123 White Blood Count 25.0 H Red Blood Count 3.00 L Hemoglobin 8.8 L Hematocrit 28.3 L Mean Corpuscular Volume 94.3 Mean Corpuscular Hemoglobin 29.3 Mean Corpuscular Hemoglobin Concent 31.1 L Red Cell Distribution Width 19.6 H Platelet Count 374 Mean Platelet Volume 10.8 H Neutrophils % 85.0 H Lymphocytes % 7.0 L Monocytes % 4.0 Myelocytes % 3.0 H Promyelocytes % 1.0 H Neutrophils # 21.3 H Lymphocytes # 1.8 Monocytes # 1.0 H Myelocytes # 0.8 Promyelocytes # 0.3 Differential Comment MANUAL DIFF Large Platelets RARE Medications Medications Current Medications Naloxone HCl (Narcan) 0.4 mg Q3M PRN IV DECREASED REPIRATORY RATE; Start at 10:30 Ondansetron HCl (Zofran Inj) 4 mg Q6H PRN IV NAUSEA AND/OR VOMITING; Start 01/12 at 10:30 Nitroglycerin (Nitroglycerin (Sl Tab) 0.4 Mg) 1 tab Q5M PRN SL CHEST PAIN; Start 06/06/16 at 10:30 Acetaminophen (Tylenol Liquid) 650 mg Q6H PRN PO PAIN LEVEL 1-3 OR FEVER Last administered on 07/09/16 20:10; Admin Dose 650 MG; Start 06/06/16 at 10:30 Morphine Sulfate (morphine) 2 mg Q4H PRN IV PAIN LEVEL 7-10 Last administered on 06/15/16 00:22; Admin Dose 2 MG; Start 06/06/16 at 10:30 Docusate Sodium (Colace) 100 mg Q12H PRN PO CONSTIPATION; Start 06/06/16 at 10: 30 Magnesium Hydroxide (Milk Of Mag) 30 ml DAILY PRN PO CONSTIPATION; Start at 10:30 Bisacodyl (Dulcolax) 5 mg DAILY PRN PO CONSTIPATION; Start 06/06/16 at 10:30 Collagenase (Santyl) 1 applic DAILY TOP Last administered on 07/12/16 08:23; Admin Dose 1 APPLIC; Start 06/07/16 at 09:00 Collagenase (Santyl) 1 applic PRN PRN TOP WOUND CARE Last administered on 16:57; Admin Dose 1 APPLIC; Start 06/06/16 at 16:00 IV Flush (NS 10 ml) 10 ml PRN PRN IV IV PROTOCOL; Start 06/06/16 at 18:30 Ascorbic Acid (Vitamin C) 500 mg DAILY GTB Last administered on 07/12/16 08:21 ; Admin Dose 500 MG; Start 06/07/16 at 09:00 Aspirin (Aspirin) 325 mg DAILY GTB Last administered on 07/12/16 08:21; Admin Dose 325 MG; Start 06/07/16 at 09:00 Multivitamins (Thera-Plus) 5 ml DAILY GTB Last administered on 07/12/16 08:22 ; Admin Dose 5 ML; Start 06/07/16 at 09:00 Tamsulosin HCl (Flomax) 0.4 mg HS PO Last administered on 07/11/16 21:28; Admin Dose 0.4 MG; Start 06/07/16 at 21:00 Mupirocin (Bactroban) 1 applic BID TOP Last administered on 07/12/16 08:23; Admin Dose 1 APPLIC; Start 06/07/16 at 21:00 Metoclopramide HCl (Reglan) 10 mg Q6H PRN IV NAUSEA AND/OR VOMITING Last administered on 06/08/16 18:00; Admin Dose 10 MG; Start 06/08/16 at 09:30 Lorazepam (Ativan) 1 mg Q6H PRN IV AGITATION/ANXIETY Last administered on 23:15; Admin Dose 1 MG; Start 06/09/16 at 13:30 Citric Acid/ Sodium Citrate (Bicitra) 30 ml BID PO Last administered on 08:20; Admin Dose 30 ML; Start 06/26/16 at 21:00 Potassium Chloride (Potassium Chloride Pwd/Soln) 40 meq DAILY GTB Last administered on 07/12/16 08:21; Admin Dose 40 MEQ; Start 06/30/16 at 10:30 Atenolol (Tenormin) 12.5 mg BID PO Last administered on 07/12/16 08:22; Admin Dose 12.5 MG; Start 06/30/16 at 23:00 Diagnostic Test (Pha) (Accu-Chek) 1 ea Q12 XX Last administered on 07/11/16 21 :29; Admin Dose 1 EA; Start 07/05/16 at 09:00 Lansoprazole (Prevacid) 30 mg DAILY@06 GTB Last administered on 07/12/16 06:33 ; Admin Dose 30 MG; Start 07/06/16 at 06:00 Furosemide (Lasix) 20 mg DAILY IV Last administered on 07/12/16 08:21; Admin Dose 20 MG; Start 07/07/16 at 09:00 Calcium Carbonate (Tums) 1,000 mg BID PO Last administered on 07/12/16 08:21; Admin Dose 1,000 MG; Start 07/06/16 at 21:00 Cholecalciferol (Vitamin D) 800 units DAILY PO Last administered on 07/12/16 08:22; Admin Dose 800 UNITS; Start 07/07/16 at 09:00 Midodrine 5 mg 5 mg TID@, GTB Last administered on 07/12/16 12:02; Admin Dose 5 MG; Start 07/07/16 at 17:00 Meropenem (Merrem 500 Mg/ 100 ml (Pmx)) 100 ml @ 200 mls/hr Q8 IVPB Last administered on 07/12/16 06:33; Admin Dose 200 MLS/HR; Start 07/11/16 at 14:00 Linezolid (Zyvox) 600 mg BID PO Last administered on 07/12/16 12:01; Admin Dose 600 MG; Start 07/12/16 at 12:00 JOSE G CUNNINGHAM NP July 12, 2016 14:39
--- NOTE | 2016-07-12 15:42 | RADRPT ---
PROCEDURE: Indium-111 labeled white blood cell scan CLINICAL INDICATION: 86 -year-old patient with fever and leukocytosis. TECHNIQUE: Following the intravenous injection of 0.5 mCi of Indium-111 labeled white blood cells, whole body anterior and posterior planar images were obtained 24 hours post injection. COMPARISON: No prior indium scans. FINDINGS: Mildly increased activity is seen in the neck, likely at the location of the tracheostomy. Small area of increased activity seen in the left pelvis Slightly elongated area of mildly increased activity is seen in the mid lower posterior pelvis. No other definite abnormal areas of increased activity are seen in the study, including visualized p ortions of the head and neck, chest, abdomen, pelvis and upper and lower. Physiologic uptake is noted in the liver and spleen. IMPRESSION: 1. Small area of increased activity in the left pelvis; inflammatory/infectious process cannot be r uled out. 2. Mildly increased uptake in the neck likely at the tracheostomy site. 3. Slightly elongated area of mildly increased activity in the mid lower posterior pelvis, possibly in the rectal region, may be related to the rectal tube. 4. No other definite abnormal focal areas of increased activity. RPTAT: HH .Idania Rivera MD, MD Date Time Electronically viewed and signed by .Idania Rivera MD, MD on 07/12/2016 15:42 .L/
--- NOTE | 2016-07-12 17:32 | CONS ---
Date/Time of Note Date/Time of Note DATE: 07/12/16 TIME: 17:27 Assessment/Plan Assessment/Plan Chief Complaint/Hosp Course IMp: 1.CHF-systolic acute on chonic-reasonable volume status at this time 2.Resp failure s/p trach on vent 3.Cardiomyopathy-LVEF 25-30% 4.HTN-with recurrent episodes of Hotn on midodrine as necessary 5.PPM-s/p interrogation with proper function-episodes of SVT and short episode VT 06/09/16/good battery life 6.Leukocytosis-persistent 7.Tachycardia-PAF/AFL rate controlled 8.Perforated viscous s/p IR drain now removed with ongoing leukocytosis 9. Renal insuff-? overdiuresis-now improved and back to baseline 10. Wide complex tachy-NSVT today 06/30/16 Recc: -Tele -Continue abx's and f/u cx data and treat fevers -Continue atenolol as tolerated/possible only given ongoing recurrent tachy -Continue asa/low dose lovenox -Continue abx's/f/u cx data -Palliative care following -Now on midodrine BP support as necessary and thus continue for now -S/P dose IVP digoxin with improvement in HR control -Continue low dose gentle lasix diuresis and follow volume status closely -F/U tagged WBC scan Problems: Consultation Date/Type/Reason Admit Date/Time Jun 06, 2016 at 08:08 Initial Consult Date 06/07/16 Type of Consultation: Cardiology Reason for Consultation Cardiomyopathy/CHF Referring Provider: HOLLI LINDER MD Exam/Review of Systems Vital Signs Vitals Vital Signs Date Time Temp Pulse Resp B/P Pulse Ox O2 Delivery O2 Flow Rate FiO2 07/12/16 16:35 69 07/12/16 16:14 31 99 30 07/12/16 16:08 98.9 134/78 Intake and Output 07/11/16 07/11/16 07/12/16 15:00 23:00 07:00 Intake Total 950 ml 1300 ml Output Total 1200 ml 400 ml 1800 ml Balance -1200 ml 550 ml -500 ml Exam Review of Systems: CONSTITUTIONAL: No fevers, chills. PULMONARY: No sob CARDIOVASCULAR: No chest pain/palpitations GASTROINTESTINAL: No nausea/vomiting. GENITOURINARY: No hematuria/dysuria. MUSCULOSKELETAL: No myagias/arthalgias. PSYCHIATRIC: The patient denies depression. NEUROLOGIC: Encephalopathic Constitutional: alert Psych: no complaints Head: normocephalic ENMT: mucosa pink and moist Neck: jvd (9 cm water), supple Respiratory: diminished breath sounds Cardiovascular: regular rate and rhythm Gastrointestinal: non-tender, soft Musculoskeletal: muscle tone (normal) Extremities: edema (none) Neurological: other (No focal deficits) Results Result Diagram: 07/12/16 0655 07/10/16 0642 Results 24 hrs Laboratory Tests Test 07/11/16 21:40 07/12/16 06:55 07/12/16 08:19 Bedside Glucose 107 123 White Blood Count 25.0 H Red Blood Count 3.00 L Hemoglobin 8.8 L Hematocrit 28.3 L Mean Corpuscular Volume 94.3 Mean Corpuscular Hemoglobin 29.3 Mean Corpuscular Hemoglobin Concent 31.1 L Red Cell Distribution Width 19.6 H Platelet Count 374 Mean Platelet Volume 10.8 H Neutrophils % 85.0 H Lymphocytes % 7.0 L Monocytes % 4.0 Myelocytes % 3.0 H Promyelocytes % 1.0 H Neutrophils # 21.3 H Lymphocytes # 1.8 Monocytes # 1.0 H Myelocytes # 0.8 Promyelocytes # 0.3 Differential Comment MANUAL DIFF Large Platelets RARE Medications Medications Current Medications Naloxone HCl (Narcan) 0.4 mg Q3M PRN IV DECREASED REPIRATORY RATE; Start at 10:30 Ondansetron HCl (Zofran Inj) 4 mg Q6H PRN IV NAUSEA AND/OR VOMITING; Start 01/12 at 10:30 Nitroglycerin (Nitroglycerin (Sl Tab) 0.4 Mg) 1 tab Q5M PRN SL CHEST PAIN; Start 06/06/16 at 10:30 Acetaminophen (Tylenol Liquid) 650 mg Q6H PRN PO PAIN LEVEL 1-3 OR FEVER Last administered on 07/09/16 20:10; Admin Dose 650 MG; Start 06/06/16 at 10:30 Morphine Sulfate (morphine) 2 mg Q4H PRN IV PAIN LEVEL 7-10 Last administered on 06/15/16 00:22; Admin Dose 2 MG; Start 06/06/16 at 10:30 Docusate Sodium (Colace) 100 mg Q12H PRN PO CONSTIPATION; Start 06/06/16 at 10: 30 Magnesium Hydroxide (Milk Of Mag) 30 ml DAILY PRN PO CONSTIPATION; Start at 10:30 Bisacodyl (Dulcolax) 5 mg DAILY PRN PO CONSTIPATION; Start 06/06/16 at 10:30 Collagenase (Santyl) 1 applic DAILY TOP Last administered on 07/12/16 08:23; Admin Dose 1 APPLIC; Start 06/07/16 at 09:00 Collagenase (Santyl) 1 applic PRN PRN TOP WOUND CARE Last administered on 16:57; Admin Dose 1 APPLIC; Start 06/06/16 at 16:00 IV Flush (NS 10 ml) 10 ml PRN PRN IV IV PROTOCOL; Start 06/06/16 at 18:30 Ascorbic Acid (Vitamin C) 500 mg DAILY GTB Last administered on 07/12/16 08:21 ; Admin Dose 500 MG; Start 06/07/16 at 09:00 Aspirin (Aspirin) 325 mg DAILY GTB Last administered on 07/12/16 08:21; Admin Dose 325 MG; Start 06/07/16 at 09:00 Multivitamins (Thera-Plus) 5 ml DAILY GTB Last administered on 07/12/16 08:22 ; Admin Dose 5 ML; Start 06/07/16 at 09:00 Tamsulosin HCl (Flomax) 0.4 mg HS PO Last administered on 07/11/16 21:28; Admin Dose 0.4 MG; Start 06/07/16 at 21:00 Mupirocin (Bactroban) 1 applic BID TOP Last administered on 07/12/16 08:23; Admin Dose 1 APPLIC; Start 06/07/16 at 21:00 Metoclopramide HCl (Reglan) 10 mg Q6H PRN IV NAUSEA AND/OR VOMITING Last administered on 06/08/16 18:00; Admin Dose 10 MG; Start 06/08/16 at 09:30 Lorazepam (Ativan) 1 mg Q6H PRN IV AGITATION/ANXIETY Last administered on 23:15; Admin Dose 1 MG; Start 06/09/16 at 13:30 Citric Acid/ Sodium Citrate (Bicitra) 30 ml BID PO Last administered on 08:20; Admin Dose 30 ML; Start 06/26/16 at 21:00 Potassium Chloride (Potassium Chloride Pwd/Soln) 40 meq DAILY GTB Last administered on 07/12/16 08:21; Admin Dose 40 MEQ; Start 06/30/16 at 10:30 Atenolol (Tenormin) 12.5 mg BID PO Last administered on 07/12/16 08:22; Admin Dose 12.5 MG; Start 06/30/16 at 23:00 Diagnostic Test (Pha) (Accu-Chek) 1 ea Q12 XX Last administered on 07/11/16 21 :29; Admin Dose 1 EA; Start 07/05/16 at 09:00 Lansoprazole (Prevacid) 30 mg DAILY@06 GTB Last administered on 07/12/16 06:33 ; Admin Dose 30 MG; Start 07/06/16 at 06:00 Furosemide (Lasix) 20 mg DAILY IV Last administered on 07/12/16 08:21; Admin Dose 20 MG; Start 07/07/16 at 09:00 Calcium Carbonate (Tums) 1,000 mg BID PO Last administered on 07/12/16 08:21; Admin Dose 1,000 MG; Start 07/06/16 at 21:00 Cholecalciferol (Vitamin D) 800 units DAILY PO Last administered on 07/12/16 08:22; Admin Dose 800 UNITS; Start 07/07/16 at 09:00 Midodrine 5 mg 5 mg TID@,,17 GTB Last administered on 07/12/16 12:02; Admin Dose 5 MG; Start 07/07/16 at 17:00 Meropenem (Merrem 500 Mg/ 100 ml (Pmx)) 100 ml @ 200 mls/hr Q8 IVPB Last administered on 07/12/16 14:42; Admin Dose 200 MLS/HR; Start 07/11/16 at 14:00 Linezolid (Zyvox) 600 mg BID PO Last administered on 07/12/16 12:01; Admin Dose 600 MG; Start 07/12/16 at 12:00 JAYA GORE July 12, 2016 17:32
--- NOTE | 2016-07-12 20:02 | PN ---
Date/Time of Note Date/Time of Note DATE: 07/12/16 TIME: 20:01 Assessment/Plan VTE Prophylaxis VTE Prophylaxis Intervention: other Lines/Catheters IV Catheter Type (from [facility]): Peripheral IV Urinary Cath still in place: Yes Reason Cath still needed: other (indicate) Assessment/Plan Chief Complaint/Hosp Course IMPRESSION: 1. Sepsis 2. Pneumonia. aspiration 3. Leukocytosis. sacral decubitus 4. Hematuria. better 5. Lactic acidosis. better 6. Respiratory failure. 7. Gastrostomy tube placement. 8. Anemia. 9. Atrial fibrillation. 10. History of congestive heart failure with decreased ejection fraction. 11. vdrf 12. History of paroxysmal atrial fibrillation. 13. The patient now has decubitus. 14 uti 15 polymirobial sepsis 16 pul edema BETTER 17 no gi bleed 18 hypokalemia better 19 diarrhea cdiff neg 20 HYPOCALCEMEIA 21 WBC SCAN SEEN plan per id iv fluid poor prognosis ck labs weaning per pulmonary and cardio surgery consult GT FEEDING per iD bicitra snf when stable poor prognosis lytes replacement prn Problems: Subjective 24 Hr Interval Summary Subjective hx not possible: other (ON VENT) Exam/Review of Systems Vital Signs Vitals Vital Signs Date Time Temp Pulse Resp B/P Pulse Ox O2 Delivery O2 Flow Rate FiO2 07/12/16 19:25 86 27 99 30 07/12/16 16:08 98.9 134/78 Intake and Output 07/11/16 07/11/16 07/12/16 15:00 23:00 07:00 Intake Total 950 ml 1300 ml Output Total 1200 ml 400 ml 1800 ml Balance -1200 ml 550 ml -500 ml Exam Respiratory: clear to auscultation Cardiovascular: regular rate and rhythm Gastrointestinal: soft Musculoskeletal: nl extremities to inspection Extremities: normal pulses Results Result Diagram: 07/12/16 0655 07/10/16 0642 Results 24 hrs Laboratory Tests Test 07/11/16 21:40 07/12/16 06:55 07/12/16 08:19 Bedside Glucose 107 123 White Blood Count 25.0 H Red Blood Count 3.00 L Hemoglobin 8.8 L Hematocrit 28.3 L Mean Corpuscular Volume 94.3 Mean Corpuscular Hemoglobin 29.3 Mean Corpuscular Hemoglobin Concent 31.1 L Red Cell Distribution Width 19.6 H Platelet Count 374 Mean Platelet Volume 10.8 H Neutrophils % 85.0 H Lymphocytes % 7.0 L Monocytes % 4.0 Myelocytes % 3.0 H Promyelocytes % 1.0 H Neutrophils # 21.3 H Lymphocytes # 1.8 Monocytes # 1.0 H Myelocytes # 0.8 Promyelocytes # 0.3 Differential Comment MANUAL DIFF Large Platelets RARE Medications Medications Current Medications Naloxone HCl (Narcan) 0.4 mg Q3M PRN IV DECREASED REPIRATORY RATE; Start at 10:30 Ondansetron HCl (Zofran Inj) 4 mg Q6H PRN IV NAUSEA AND/OR VOMITING; Start 01/12 at 10:30 Nitroglycerin (Nitroglycerin (Sl Tab) 0.4 Mg) 1 tab Q5M PRN SL CHEST PAIN; Start 06/06/16 at 10:30 Acetaminophen (Tylenol Liquid) 650 mg Q6H PRN PO PAIN LEVEL 1-3 OR FEVER Last administered on 07/09/16 20:10; Admin Dose 650 MG; Start 06/06/16 at 10:30 Morphine Sulfate (morphine) 2 mg Q4H PRN IV PAIN LEVEL 7-10 Last administered on 06/15/16 00:22; Admin Dose 2 MG; Start 06/06/16 at 10:30 Docusate Sodium (Colace) 100 mg Q12H PRN PO CONSTIPATION; Start 06/06/16 at 10: 30 Magnesium Hydroxide (Milk Of Mag) 30 ml DAILY PRN PO CONSTIPATION; Start at 10:30 Bisacodyl (Dulcolax) 5 mg DAILY PRN PO CONSTIPATION; Start 06/06/16 at 10:30 Collagenase (Santyl) 1 applic DAILY TOP Last administered on 07/12/16 08:23; Admin Dose 1 APPLIC; Start 06/07/16 at 09:00 Collagenase (Santyl) 1 applic PRN PRN TOP WOUND CARE Last administered on 16:57; Admin Dose 1 APPLIC; Start 06/06/16 at 16:00 IV Flush (NS 10 ml) 10 ml PRN PRN IV IV PROTOCOL; Start 06/06/16 at 18:30 Ascorbic Acid (Vitamin C) 500 mg DAILY GTB Last administered on 07/12/16 08:21 ; Admin Dose 500 MG; Start 06/07/16 at 09:00 Aspirin (Aspirin) 325 mg DAILY GTB Last administered on 07/12/16 08:21; Admin Dose 325 MG; Start 06/07/16 at 09:00 Multivitamins (Thera-Plus) 5 ml DAILY GTB Last administered on 07/12/16 08:22 ; Admin Dose 5 ML; Start 06/07/16 at 09:00 Tamsulosin HCl (Flomax) 0.4 mg HS PO Last administered on 07/11/16 21:28; Admin Dose 0.4 MG; Start 06/07/16 at 21:00 Mupirocin (Bactroban) 1 applic BID TOP Last administered on 07/12/16 08:23; Admin Dose 1 APPLIC; Start 06/07/16 at 21:00 Metoclopramide HCl (Reglan) 10 mg Q6H PRN IV NAUSEA AND/OR VOMITING Last administered on 06/08/16 18:00; Admin Dose 10 MG; Start 06/08/16 at 09:30 Lorazepam (Ativan) 1 mg Q6H PRN IV AGITATION/ANXIETY Last administered on 23:15; Admin Dose 1 MG; Start 06/09/16 at 13:30 Citric Acid/ Sodium Citrate (Bicitra) 30 ml BID PO Last administered on 08:20; Admin Dose 30 ML; Start 06/26/16 at 21:00 Potassium Chloride (Potassium Chloride Pwd/Soln) 40 meq DAILY GTB Last administered on 07/12/16 08:21; Admin Dose 40 MEQ; Start 06/30/16 at 10:30 Atenolol (Tenormin) 12.5 mg BID PO Last administered on 07/12/16 08:22; Admin Dose 12.5 MG; Start 06/30/16 at 23:00 Diagnostic Test (Pha) (Accu-Chek) 1 ea Q12 XX Last administered on 07/11/16 21 :29; Admin Dose 1 EA; Start 07/05/16 at 09:00 Lansoprazole (Prevacid) 30 mg DAILY@06 GTB Last administered on 07/12/16 06:33 ; Admin Dose 30 MG; Start 07/06/16 at 06:00 Furosemide (Lasix) 20 mg DAILY IV Last administered on 07/12/16 08:21; Admin Dose 20 MG; Start 07/07/16 at 09:00 Calcium Carbonate (Tums) 1,000 mg BID PO Last administered on 07/12/16 08:21; Admin Dose 1,000 MG; Start 07/06/16 at 21:00 Cholecalciferol (Vitamin D) 800 units DAILY PO Last administered on 07/12/16 08:22; Admin Dose 800 UNITS; Start 07/07/16 at 09:00 Midodrine 5 mg 5 mg TID@,,17 GTB Last administered on 07/12/16 12:02; Admin Dose 5 MG; Start 07/07/16 at 17:00 Meropenem (Merrem 500 Mg/ 100 ml (Pmx)) 100 ml @ 200 mls/hr Q8 IVPB Last administered on 07/12/16 14:42; Admin Dose 200 MLS/HR; Start 07/11/16 at 14:00 Linezolid (Zyvox) 600 mg BID PO Last administered on 07/12/16 12:01; Admin Dose 600 MG; Start 07/12/16 at 12:00 HOLLI LINDER MD July 12, 2016 20:02
[2016-07-12] MEDS: TAMSULOSIN (SR) 0.4 MG CAP PO SCH (21:48)
[2016-07-13] VITALS (24 sets, daily range): BP systolic 102–134; BP diastolic 50–62; PULSE 60–78; RESP 17–27
[2016-07-13] MEDS: ALBUTEROL 18 GM INHALER INH SCH ×6 (01:03→21:24)
[2016-07-13] MEDS: IPRATROPIUM (HFA) 12.9 GM INHALER INH SCH ×6 (01:04→21:24)
[2016-07-13] MEDS: MEROPENEM 500 MG/100 ML (PMX) 100 ML IVPB SCH ×3 (06:10→21:00)
[2016-07-13] MEDS: LANSOPRAZOLE 30 MG CAP GTB SCH (06:10)
[2016-07-13] MEDS: CITRIC ACID/SODIUM CITRATE 15 ML CUP PO SCH ×2 (08:20→20:49)
[2016-07-13] MEDS: CALCIUM CARBONATE 500 MG CHEW TAB PO SCH ×2 (08:22→20:49)
[2016-07-13] MEDS: CHOLECALCIFEROL 400 UNITS TAB PO SCH (08:22)
[2016-07-13] MEDS: ASPIRIN 325 MG TAB GTB SCH (08:22)
[2016-07-13] MEDS: MIDODRINE 5 MG TAB GTB SCH ×3 (08:22→17:00)
[2016-07-13] MEDS: ATENOLOL 25 MG TAB PO SCH ×2 (08:23→20:51)
[2016-07-13] MEDS: ASCORBIC ACID 500 MG TAB GTB SCH (08:23)
[2016-07-13] MEDS: POTASSIUM CHLORIDE 20 MEQ POWDER FOR ORAL SOLN GTB SCH (08:23)
[2016-07-13] MEDS: FUROSEMIDE 20 MG INJ IV SCH (08:24)
[2016-07-13] MEDS: COLISTIMETHATE (25 MG/ML INHAL SYG) NEB SCH ×2 (08:41→21:23)
[2016-07-13] MEDS: ZYVOX 600 MG TAB PO SCH ×2 (08:57→20:49)
[2016-07-13] MEDS: MUPIROCIN 2% 22 GM OINT TOP SCH ×2 (08:58→20:49)
[2016-07-13] MEDS: MULTIVITAMINS 5 ML CUP GTB SCH (08:58)
[2016-07-13] MEDS: COLLAGENASE 30 GM TUBE TOP SCH (08:58)
[2016-07-13 09:00] LABS: POTASSIUM 3.8 mmol/L (3.5-5.1)
[2016-07-13] MEDS: ACCU-CHEK XX SCH ×2 (09:00→21:00)
[2016-07-13 09:02] LABS: CREATININE 0.83 mg/dl (0.61-1.24)
[2016-07-13 09:03] LABS: ALBUMIN/GLOBULIN RATIO 0.64; CALCIUM 6.9 mg/dl (8.4-10.2); TOTAL PROTEIN 5.1 g/dl (6.1-8.1)
--- NOTE | 2016-07-13 11:25 | CONS ---
Date/Time of Note Date/Time of Note DATE: 07/13/16 TIME: 11:24 Consult Date/Type/Reason Admit Date/Time Jun 06, 2016 at 08:08 Initial Consult Date 06/07/16 Type of Consultation: Pulmonary Ordering Provider: HOLLI LINDER MD Subjective Patient condition remains unchanged Objective Vital Signs Date Time Temp Pulse Resp B/P Pulse Ox O2 Delivery O2 Flow Rate FiO2 07/13/16 11:18 98.8 79 19 102/50 99 07/13/16 11:17 30 Intake and Output 07/12/16 07/12/16 07/13/16 15:00 23:00 07:00 Intake Total 1165 ml Output Total 1350 ml Balance -185 ml Exam PHYSICAL EXAMINATION GENERAL: Elderly gentleman, on mechanical ventilation, VITAL SIGNS: see below. HEENT: Pupils equal, round, and reactive to light. Tracheostomy site clean and intact. CARDIAC: S1, S2, tachycardia. CHEST: Diminished air entry bilaterally. ABDOMEN: Mildly distended. Diminished bowel sounds no guarding or rebound EXTREMITIES: No cyanosis, clubbing edema +2 NEUROLOGIC: Generalized weakness Results/Medications Result Diagram: 07/12/16 0655 07/13/16 0725 Results 24 hrs Laboratory Tests Test 07/12/16 22:06 07/13/16 07:25 07/13/16 09:08 Bedside Glucose 107 102 Sodium Level 142 Potassium Level 3.8 Chloride Level 106 Carbon Dioxide Level 28 Anion Gap 12 Blood Urea Nitrogen 41 H Creatinine 0.83 Glucose Level 98 Calcium Level 6.9 L Total Bilirubin 0.0 L Direct Bilirubin 0.00 Indirect Bilirubin 0.0 Aspartate Amino Transf (AST/SGOT) 31 Alanine Aminotransferase (ALT/SGPT) 28 Alkaline Phosphatase 246 H Total Protein 5.1 L Albumin 2.0 L Globulin 3.10 Albumin/Globulin Ratio 0.64 Medications Current Medications Naloxone HCl (Narcan) 0.4 mg Q3M PRN IV DECREASED REPIRATORY RATE; Start at 10:30 Ondansetron HCl (Zofran Inj) 4 mg Q6H PRN IV NAUSEA AND/OR VOMITING; Start 01/12 at 10:30 Nitroglycerin (Nitroglycerin (Sl Tab) 0.4 Mg) 1 tab Q5M PRN SL CHEST PAIN; Start 06/06/16 at 10:30 Acetaminophen (Tylenol Liquid) 650 mg Q6H PRN PO PAIN LEVEL 1-3 OR FEVER Last administered on 07/09/16 20:10; Admin Dose 650 MG; Start 06/06/16 at 10:30 Morphine Sulfate (morphine) 2 mg Q4H PRN IV PAIN LEVEL 7-10 Last administered on 06/15/16 00:22; Admin Dose 2 MG; Start 06/06/16 at 10:30 Docusate Sodium (Colace) 100 mg Q12H PRN PO CONSTIPATION; Start 06/06/16 at 10: 30 Magnesium Hydroxide (Milk Of Mag) 30 ml DAILY PRN PO CONSTIPATION; Start at 10:30 Bisacodyl (Dulcolax) 5 mg DAILY PRN PO CONSTIPATION; Start 06/06/16 at 10:30 Collagenase (Santyl) 1 applic DAILY TOP Last administered on 07/13/16 08:58; Admin Dose 1 APPLIC; Start 06/07/16 at 09:00 Collagenase (Santyl) 1 applic PRN PRN TOP WOUND CARE Last administered on 16:57; Admin Dose 1 APPLIC; Start 06/06/16 at 16:00 IV Flush (NS 10 ml) 10 ml PRN PRN IV IV PROTOCOL; Start 06/06/16 at 18:30 Ascorbic Acid (Vitamin C) 500 mg DAILY GTB Last administered on 07/13/16 08:23 ; Admin Dose 500 MG; Start 06/07/16 at 09:00 Aspirin (Aspirin) 325 mg DAILY GTB Last administered on 07/13/16 08:22; Admin Dose 325 MG; Start 06/07/16 at 09:00 Multivitamins (Thera-Plus) 5 ml DAILY GTB Last administered on 07/13/16 08:58 ; Admin Dose 5 ML; Start 06/07/16 at 09:00 Tamsulosin HCl (Flomax) 0.4 mg HS PO Last administered on 07/12/16 21:48; Admin Dose 0.4 MG; Start 06/07/16 at 21:00 Mupirocin (Bactroban) 1 applic BID TOP Last administered on 07/13/16 08:58; Admin Dose 1 APPLIC; Start 06/07/16 at 21:00 Metoclopramide HCl (Reglan) 10 mg Q6H PRN IV NAUSEA AND/OR VOMITING Last administered on 06/08/16 18:00; Admin Dose 10 MG; Start 06/08/16 at 09:30 Lorazepam (Ativan) 1 mg Q6H PRN IV AGITATION/ANXIETY Last administered on 23:15; Admin Dose 1 MG; Start 06/09/16 at 13:30 Citric Acid/ Sodium Citrate (Bicitra) 30 ml BID PO Last administered on 08:20; Admin Dose 30 ML; Start 06/26/16 at 21:00 Potassium Chloride (Potassium Chloride Pwd/Soln) 40 meq DAILY GTB Last administered on 07/13/16 08:23; Admin Dose 40 MEQ; Start 06/30/16 at 10:30 Atenolol (Tenormin) 12.5 mg BID PO Last administered on 07/13/16 08:23; Admin Dose 12.5 MG; Start 06/30/16 at 23:00 Diagnostic Test (Pha) (Accu-Chek) 1 ea Q12 XX Last administered on 07/11/16 21 :29; Admin Dose 1 EA; Start 07/05/16 at 09:00 Lansoprazole (Prevacid) 30 mg DAILY@06 GTB Last administered on 07/13/16 06:10 ; Admin Dose 30 MG; Start 07/06/16 at 06:00 Furosemide (Lasix) 20 mg DAILY IV Last administered on 07/13/16 08:24; Admin Dose 20 MG; Start 07/07/16 at 09:00 Calcium Carbonate (Tums) 1,000 mg BID PO Last administered on 07/13/16 08:22; Admin Dose 1,000 MG; Start 07/06/16 at 21:00 Cholecalciferol (Vitamin D) 800 units DAILY PO Last administered on 07/13/16 08:22; Admin Dose 800 UNITS; Start 07/07/16 at 09:00 Midodrine 5 mg 5 mg TID@,,17 GTB Last administered on 07/13/16 08:22; Admin Dose 5 MG; Start 07/07/16 at 17:00 Meropenem (Merrem 500 Mg/ 100 ml (Pmx)) 100 ml @ 200 mls/hr Q8 IVPB Last administered on 07/13/16 06:10; Admin Dose 200 MLS/HR; Start 07/11/16 at 14:00 Linezolid (Zyvox) 600 mg BID PO Last administered on 07/13/16t 08:57; Admin Dose 600 MG; Start 07/12/16 at 12:00 Assessment/Plan Chief Complaint/Hosp Course Assessment 1. Vent dependent respiratory failure with evidence of healthcare associated pneumonia 2. Status post bowel perforation with drainage, persistent leukocytosis 3. Ongoing sepsis as above 4. Chronic atrial fibrillation 5. Decubitus ulcers 6. Dysphagia with G-tube 7. Chronic encephalopathy Plan 1. Continue mechanical ventilation 2. Continue broad-spectrum antibiotics per infectious diseases 3. Surgical recommendations regarding abdominal drains 4. Palliative care consult appreciated 5. DVT and GI prophylaxis 6. Stable post transfusion Disposition Continue current care Overall prognosis very poor Bioethics meeting scheduled for tomorrow Problems: KAVON TROY MD, [facility] July 13, 2016 11:25
--- NOTE | 2016-07-13 14:12 | CONS ---
Date/Time of Note Date/Time of Note DATE: 07/13/16 TIME: 14:11 Assessment/Plan Assessment/Plan Chief Complaint/Hosp Course SUBJECTIVE: No acute changes. No fevers. Looks comfortable MICROBIOLOGY: Blood culture on 07/10/2016 negative. Urine culture negative. Endotracheal aspirate grew Acinetobacter baumannii and Klebsiella pneumoniae. Wound cx + Enterococcus/Kleb ESBL/A. baumanii INDWELLINGS: Trach, PEG, Alfonso Abx: Colistin INH, Merrem, Zyvox PHYSICAL EXAMINATION: GENERAL: This is a fragile, chronically ill-appearing, elderly man who is in no distress. HEENT: Head atraumatic, normocephalic. Sclerae anicteric. Buccal mucosa dry. NECK: Supple. Tracheostomy present. CHEST: Rise symmetrical. Breath sounds diminished to bases. HEART: S1, S2. ABDOMEN: Soft. Bowel tones hypoactive. EXTREMITIES: With trace edema. ASSESSMENT: 1. Systemic inflammatory response syndrome with persistent leukocytosis 2. Chronic respiratory failure, status post pneumonia, with endotracheal aspirate growing multi-drug resistant organisms===> on colistin inhalation. 3. Status post intra-abdominal abscess drainage==> repeat CT + resolution. 4. Sacral decubitus. 5. Atrial fibrillation. 6. Acute on chronic anemia. 7. Status post methicillin-resistant Staphylococcus aureus bacteremia and urinary tract infection on admission. PLAN: Clinically unchanged, on appropriate abx, continue local wound care, WBC scan results noted DW staff Problems: Consultation Date/Type/Reason Admit Date/Time Jun 06, 2016 at 08:08 Initial Consult Date 06/07/16 Type of Consultation: ID Referring Provider: HOLLI LINDER MD Exam/Review of Systems Vital Signs Vitals Vital Signs Date Time Temp Pulse Resp B/P Pulse Ox O2 Delivery O2 Flow Rate FiO2 07/13/16 12:17 66 07/13/16 11:18 98.8 19 102/50 99 07/13/16 11:17 30 Intake and Output 07/12/16 07/12/16 07/13/16 15:00 23:00 07:00 Intake Total 1165 ml Output Total 1350 ml Balance -185 ml Results Result Diagram: 07/12/16 0655 07/13/16 0725 Results 24 hrs Laboratory Tests Test 07/12/16 22:06 07/13/16 07:25 07/13/16 09:08 Bedside Glucose 107 102 Sodium Level 142 Potassium Level 3.8 Chloride Level 106 Carbon Dioxide Level 28 Anion Gap 12 Blood Urea Nitrogen 41 H Creatinine 0.83 Glucose Level 98 Calcium Level 6.9 L Total Bilirubin 0.0 L Direct Bilirubin 0.00 Indirect Bilirubin 0.0 Aspartate Amino Transf (AST/SGOT) 31 Alanine Aminotransferase (ALT/SGPT) 28 Alkaline Phosphatase 246 H Total Protein 5.1 L Albumin 2.0 L Globulin 3.10 Albumin/Globulin Ratio 0.64 Medications Medications Current Medications Naloxone HCl (Narcan) 0.4 mg Q3M PRN IV DECREASED REPIRATORY RATE; Start at 10:30 Ondansetron HCl (Zofran Inj) 4 mg Q6H PRN IV NAUSEA AND/OR VOMITING; Start 01/12 at 10:30 Nitroglycerin (Nitroglycerin (Sl Tab) 0.4 Mg) 1 tab Q5M PRN SL CHEST PAIN; Start 06/06/16 at 10:30 Acetaminophen (Tylenol Liquid) 650 mg Q6H PRN PO PAIN LEVEL 1-3 OR FEVER Last administered on 07/09/16 20:10; Admin Dose 650 MG; Start 06/06/16 at 10:30 Morphine Sulfate (morphine) 2 mg Q4H PRN IV PAIN LEVEL 7-10 Last administered on 06/15/16 00:22; Admin Dose 2 MG; Start 06/06/16 at 10:30 Docusate Sodium (Colace) 100 mg Q12H PRN PO CONSTIPATION; Start 06/06/16 at 10: 30 Magnesium Hydroxide (Milk Of Mag) 30 ml DAILY PRN PO CONSTIPATION; Start at 10:30 Bisacodyl (Dulcolax) 5 mg DAILY PRN PO CONSTIPATION; Start 06/06/16 at 10:30 Collagenase (Santyl) 1 applic DAILY TOP Last administered on 07/13/16 08:58; Admin Dose 1 APPLIC; Start 06/07/16 at 09:00 Collagenase (Santyl) 1 applic PRN PRN TOP WOUND CARE Last administered on 16:57; Admin Dose 1 APPLIC; Start 06/06/16 at 16:00 IV Flush (NS 10 ml) 10 ml PRN PRN IV IV PROTOCOL; Start 06/06/16 at 18:30 Ascorbic Acid (Vitamin C) 500 mg DAILY GTB Last administered on 07/13/16 08:23 ; Admin Dose 500 MG; Start 06/07/16 at 09:00 Aspirin (Aspirin) 325 mg DAILY GTB Last administered on 07/13/16 08:22; Admin Dose 325 MG; Start 06/07/16 at 09:00 Multivitamins (Thera-Plus) 5 ml DAILY GTB Last administered on 07/13/16 08:58 ; Admin Dose 5 ML; Start 06/07/16 at 09:00 Tamsulosin HCl (Flomax) 0.4 mg HS PO Last administered on 07/12/16 21:48; Admin Dose 0.4 MG; Start 06/07/16 at 21:00 Mupirocin (Bactroban) 1 applic BID TOP Last administered on 07/13/16 08:58; Admin Dose 1 APPLIC; Start 06/07/16 at 21:00 Metoclopramide HCl (Reglan) 10 mg Q6H PRN IV NAUSEA AND/OR VOMITING Last administered on 06/08/16 18:00; Admin Dose 10 MG; Start 06/08/16 at 09:30 Lorazepam (Ativan) 1 mg Q6H PRN IV AGITATION/ANXIETY Last administered on 23:15; Admin Dose 1 MG; Start 06/09/16 at 13:30 Citric Acid/ Sodium Citrate (Bicitra) 30 ml BID PO Last administered on 08:20; Admin Dose 30 ML; Start 06/26/16 at 21:00 Potassium Chloride (Potassium Chloride Pwd/Soln) 40 meq DAILY GTB Last administered on 07/13/16 08:23; Admin Dose 40 MEQ; Start 06/30/16 at 10:30 Atenolol (Tenormin) 12.5 mg BID PO Last administered on 07/13/16 08:23; Admin Dose 12.5 MG; Start 06/30/16 at 23:00 Diagnostic Test (Pha) (Accu-Chek) 1 ea Q12 XX Last administered on 07/11/16 21 :29; Admin Dose 1 EA; Start 07/05/16 at 09:00 Lansoprazole (Prevacid) 30 mg DAILY@06 GTB Last administered on 07/13/16 06:10 ; Admin Dose 30 MG; Start 07/06/16 at 06:00 Furosemide (Lasix) 20 mg DAILY IV Last administered on 07/13/16 08:24; Admin Dose 20 MG; Start 07/07/16 at 09:00 Calcium Carbonate (Tums) 1,000 mg BID PO Last administered on 07/13/16 08:22; Admin Dose 1,000 MG; Start 07/06/16 at 21:00 Cholecalciferol (Vitamin D) 800 units DAILY PO Last administered on 07/13/16 08:22; Admin Dose 800 UNITS; Start 07/07/16 at 09:00 Midodrine 5 mg 5 mg TID@,,17 GTB Last administered on 07/13/16 14:08; Admin Dose 5 MG; Start 07/07/16 at 17:00 Meropenem (Merrem 500 Mg/ 100 ml (Pmx)) 100 ml @ 200 mls/hr Q8 IVPB Last administered on 07/13/16 14:08; Admin Dose 200 MLS/HR; Start 07/11/16 at 14:00 Linezolid (Zyvox) 600 mg BID PO Last administered on 07/13/16 08:57; Admin Dose 600 MG; Start 07/12/16 at 12:00 JOSE G CUNNINGHAM NP July 13, 2016 14:12
--- NOTE | 2016-07-13 17:43 | CONS ---
Date/Time of Note Date/Time of Note DATE: 07/13/16 TIME: 17:40 Assessment/Plan Assessment/Plan Chief Complaint/Hosp Course IMp: 1.CHF-systolic acute on chonic-reasonable volume status at this time 2.Resp failure s/p trach on vent 3.Cardiomyopathy-LVEF 25-30% 4.HTN-with recurrent episodes of Hotn on midodrine as necessary 5.PPM-s/p interrogation with proper function-episodes of SVT and short episode VT 06/09/16/good battery life 6.Leukocytosis-persistent 7.Tachycardia-PAF/AFL rate controlled 8.Perforated viscous s/p IR drain now removed with ongoing leukocytosis 9. Renal insuff-? overdiuresis-now improved and back to baseline 10. Wide complex tachy-NSVT today 06/30/16 Recc: -Tele -Continue abx's and f/u cx data and treat fevers -Continue atenolol as tolerated/possible only given ongoing recurrent tachy -Continue asa/low dose lovenox -Continue abx's/f/u cx data -Palliative care following -Now on midodrine BP support as necessary and thus continue for now -S/P dose IVP digoxin with improvement in HR control -Continue low dose gentle lasix diuresis and follow volume status closely -Continue daily lasix diuresis Problems: Consultation Date/Type/Reason Admit Date/Time Jun 06, 2016 at 08:08 Initial Consult Date 06/07/16 Type of Consultation: Cardiology Reason for Consultation cardiomyopathy/AF Referring Provider: HOLLI LINDER MD Exam/Review of Systems Vital Signs Vitals Vital Signs Date Time Temp Pulse Resp B/P Pulse Ox O2 Delivery O2 Flow Rate FiO2 07/13/16 17:23 86 22 97 30 07/13/16 15:55 98.6 121/56 Intake and Output 07/12/16 07/12/16 07/13/16 15:00 23:00 07:00 Intake Total 1165 ml Output Total 1350 ml Balance -185 ml Exam Review of Systems: CONSTITUTIONAL: No fevers, chills. PULMONARY: trached CARDIOVASCULAR: No chest pain/palpitations GASTROINTESTINAL: No nausea/vomiting. GENITOURINARY: No hematuria/dysuria. MUSCULOSKELETAL: No myagias/arthalgias. PSYCHIATRIC: The patient denies depression. NEUROLOGIC: lethargic Constitutional: other (encephalopathic) Psych: no complaints Head: normocephalic ENMT: mucosa pink and moist Neck: jvd (9 cm water), supple Respiratory: diminished breath sounds (at bases/B) Cardiovascular: regular rate and rhythm Gastrointestinal: non-tender, soft Musculoskeletal: muscle tone (normal) Extremities: pitting pedal edema (Bilateral LE) Results Result Diagram: 07/12/16 0655 07/13/16 0725 Results 24 hrs Laboratory Tests Test 07/12/16 22:06 07/13/16 07:25 07/13/16 09:08 Bedside Glucose 107 102 Sodium Level 142 Potassium Level 3.8 Chloride Level 106 Carbon Dioxide Level 28 Anion Gap 12 Blood Urea Nitrogen 41 H Creatinine 0.83 Glucose Level 98 Calcium Level 6.9 L Total Bilirubin 0.0 L Direct Bilirubin 0.00 Indirect Bilirubin 0.0 Aspartate Amino Transf (AST/SGOT) 31 Alanine Aminotransferase (ALT/SGPT) 28 Alkaline Phosphatase 246 H Total Protein 5.1 L Albumin 2.0 L Globulin 3.10 Albumin/Globulin Ratio 0.64 Medications Medications Current Medications Naloxone HCl (Narcan) 0.4 mg Q3M PRN IV DECREASED REPIRATORY RATE; Start at 10:30 Ondansetron HCl (Zofran Inj) 4 mg Q6H PRN IV NAUSEA AND/OR VOMITING; Start 01/12 at 10:30 Nitroglycerin (Nitroglycerin (Sl Tab) 0.4 Mg) 1 tab Q5M PRN SL CHEST PAIN; Start 06/06/16 at 10:30 Acetaminophen (Tylenol Liquid) 650 mg Q6H PRN PO PAIN LEVEL 1-3 OR FEVER Last administered on 07/09/16 20:10; Admin Dose 650 MG; Start 06/06/16 at 10:30 Morphine Sulfate (morphine) 2 mg Q4H PRN IV PAIN LEVEL 7-10 Last administered on 06/15/16 00:22; Admin Dose 2 MG; Start 06/06/16 at 10:30 Docusate Sodium (Colace) 100 mg Q12H PRN PO CONSTIPATION; Start 06/06/16 at 10: 30 Magnesium Hydroxide (Milk Of Mag) 30 ml DAILY PRN PO CONSTIPATION; Start at 10:30 Bisacodyl (Dulcolax) 5 mg DAILY PRN PO CONSTIPATION; Start 06/06/16 at 10:30 Collagenase (Santyl) 1 applic DAILY TOP Last administered on 07/13/16 08:58; Admin Dose 1 APPLIC; Start 06/07/16 at 09:00 Collagenase (Santyl) 1 applic PRN PRN TOP WOUND CARE Last administered on 16:57; Admin Dose 1 APPLIC; Start 06/06/16 at 16:00 IV Flush (NS 10 ml) 10 ml PRN PRN IV IV PROTOCOL; Start 06/06/16 at 18:30 Ascorbic Acid (Vitamin C) 500 mg DAILY GTB Last administered on 07/13/16 08:23 ; Admin Dose 500 MG; Start 06/07/16 at 09:00 Aspirin (Aspirin) 325 mg DAILY GTB Last administered on 07/13/16 08:22; Admin Dose 325 MG; Start 06/07/16 at 09:00 Multivitamins (Thera-Plus) 5 ml DAILY GTB Last administered on 07/13/16 08:58 ; Admin Dose 5 ML; Start 06/07/16 at 09:00 Tamsulosin HCl (Flomax) 0.4 mg HS PO Last administered on 07/12/16 21:48; Admin Dose 0.4 MG; Start 06/07/16 at 21:00 Mupirocin (Bactroban) 1 applic BID TOP Last administered on 07/13/16 08:58; Admin Dose 1 APPLIC; Start 06/07/16 at 21:00 Metoclopramide HCl (Reglan) 10 mg Q6H PRN IV NAUSEA AND/OR VOMITING Last administered on 06/08/16 18:00; Admin Dose 10 MG; Start 06/08/16 at 09:30 Lorazepam (Ativan) 1 mg Q6H PRN IV AGITATION/ANXIETY Last administered on 23:15; Admin Dose 1 MG; Start 06/09/16 at 13:30 Citric Acid/ Sodium Citrate (Bicitra) 30 ml BID PO Last administered on 08:20; Admin Dose 30 ML; Start 06/26/16 at 21:00 Potassium Chloride (Potassium Chloride Pwd/Soln) 40 meq DAILY GTB Last administered on 07/13/16 08:23; Admin Dose 40 MEQ; Start 06/30/16 at 10:30 Atenolol (Tenormin) 12.5 mg BID PO Last administered on 07/13/16 08:23; Admin Dose 12.5 MG; Start 06/30/16 at 23:00 Diagnostic Test (Pha) (Accu-Chek) 1 ea Q12 XX Last administered on 07/11/16 21 :29; Admin Dose 1 EA; Start 07/05/16 at 09:00 Lansoprazole (Prevacid) 30 mg DAILY@06 GTB Last administered on 07/13/16 06:10 ; Admin Dose 30 MG; Start 07/06/16 at 06:00 Furosemide (Lasix) 20 mg DAILY IV Last administered on 07/13/16 08:24; Admin Dose 20 MG; Start 07/07/16 at 09:00 Calcium Carbonate (Tums) 1,000 mg BID PO Last administered on 07/13/16 08:22; Admin Dose 1,000 MG; Start 07/06/16 at 21:00 Cholecalciferol (Vitamin D) 800 units DAILY PO Last administered on 07/13/16 08:22; Admin Dose 800 UNITS; Start 07/07/16 at 09:00 Midodrine 5 mg 5 mg TID@,,17 GTB Last administered on 07/13/16 14:08; Admin Dose 5 MG; Start 07/07/16 at 17:00 Meropenem (Merrem 500 Mg/ 100 ml (Pmx)) 100 ml @ 200 mls/hr Q8 IVPB Last administered on 07/13/16 14:08; Admin Dose 200 MLS/HR; Start 07/11/16 at 14:00 Linezolid (Zyvox) 600 mg BID PO Last administered on 07/13/16 08:57; Admin Dose 600 MG; Start 07/12/16 at 12:00 JAYA GORE July 13, 2016 17:43
--- NOTE | 2016-07-13 20:13 | PN ---
Date/Time of Note Date/Time of Note DATE: 07/13/16 TIME: 20:12 Assessment/Plan VTE Prophylaxis VTE Prophylaxis Intervention: other Lines/Catheters IV Catheter Type (from Nrs): Peripheral IV Urinary Cath still in place: Yes Reason Cath still needed: other (indicate) Assessment/Plan Chief Complaint/Hosp Course IMPRESSION: 1. Sepsis 2. Pneumonia. aspiration 3. Leukocytosis. sacral decubitus 4. Hematuria. better 5. Lactic acidosis. better 6. Respiratory failure. 7. Gastrostomy tube placement. 8. Anemia. 9. Atrial fibrillation. 10. History of congestive heart failure with decreased ejection fraction. 11. vdrf 12. History of paroxysmal atrial fibrillation. 13. The patient now has decubitus. 14 uti 15 polymirobial sepsis 16 pul edema BETTER 17 no gi bleed 18 hypokalemia better 19 diarrhea cdiff neg 20 HYPOCALCEMEIA 21 WBC SCAN SEEN plan per id iv fluid poor prognosis ck labs weaning per pulmonary and cardio surgery consult GT FEEDING per iD bicitra snf when stable poor prognosis lytes replacement prn Problems: Subjective 24 Hr Interval Summary Subjective hx not possible: other (d/w family) Exam/Review of Systems Vital Signs Vitals Vital Signs Date Time Temp Pulse Resp B/P Pulse Ox O2 Delivery O2 Flow Rate FiO2 07/13/16 17:23 86 22 97 30 07/13/16 15:55 98.6 121/56 Intake and Output 07/12/16 07/12/16 07/13/16 15:00 23:00 07:00 Intake Total 1165 ml Output Total 1350 ml Balance -185 ml Exam Neck: supple Respiratory: diminished breath sounds Cardiovascular: regular rate and rhythm Gastrointestinal: bowel sounds (+), soft Extremities: edema (+) Results Result Diagram: 07/12/16 0655 07/13/16 0725 Results 24 hrs Laboratory Tests Test 07/12/16 22:06 07/13/16 07:25 07/13/16 09:08 Bedside Glucose 107 102 Sodium Level 142 Potassium Level 3.8 Chloride Level 106 Carbon Dioxide Level 28 Anion Gap 12 Blood Urea Nitrogen 41 H Creatinine 0.83 Glucose Level 98 Calcium Level 6.9 L Total Bilirubin 0.0 L Direct Bilirubin 0.00 Indirect Bilirubin 0.0 Aspartate Amino Transf (AST/SGOT) 31 Alanine Aminotransferase (ALT/SGPT) 28 Alkaline Phosphatase 246 H Total Protein 5.1 L Albumin 2.0 L Globulin 3.10 Albumin/Globulin Ratio 0.64 Medications Medications Current Medications Naloxone HCl (Narcan) 0.4 mg Q3M PRN IV DECREASED REPIRATORY RATE; Start at 10:30 Ondansetron HCl (Zofran Inj) 4 mg Q6H PRN IV NAUSEA AND/OR VOMITING; Start 01/12 at 10:30 Nitroglycerin (Nitroglycerin (Sl Tab) 0.4 Mg) 1 tab Q5M PRN SL CHEST PAIN; Start 06/06/16 at 10:30 Acetaminophen (Tylenol Liquid) 650 mg Q6H PRN PO PAIN LEVEL 1-3 OR FEVER Last administered on 07/09/16 20:10; Admin Dose 650 MG; Start 06/06/16 at 10:30 Morphine Sulfate (morphine) 2 mg Q4H PRN IV PAIN LEVEL 7-10 Last administered on 06/15/16 00:22; Admin Dose 2 MG; Start 06/06/16 at 10:30 Docusate Sodium (Colace) 100 mg Q12H PRN PO CONSTIPATION; Start 06/06/16 at 10: 30 Magnesium Hydroxide (Milk Of Mag) 30 ml DAILY PRN PO CONSTIPATION; Start at 10:30 Bisacodyl (Dulcolax) 5 mg DAILY PRN PO CONSTIPATION; Start 06/06/16 at 10:30 Collagenase (Santyl) 1 applic DAILY TOP Last administered on 07/13/16 08:58; Admin Dose 1 APPLIC; Start 06/07/16 at 09:00 Collagenase (Santyl) 1 applic PRN PRN TOP WOUND CARE Last administered on 16:57; Admin Dose 1 APPLIC; Start 06/06/16 at 16:00 IV Flush (NS 10 ml) 10 ml PRN PRN IV IV PROTOCOL; Start 06/06/16 at 18:30 Ascorbic Acid (Vitamin C) 500 mg DAILY GTB Last administered on 07/13/16 08:23 ; Admin Dose 500 MG; Start 06/07/16 at 09:00 Aspirin (Aspirin) 325 mg DAILY GTB Last administered on 07/13/16 08:22; Admin Dose 325 MG; Start 06/07/16 at 09:00 Multivitamins (Thera-Plus) 5 ml DAILY GTB Last administered on 07/13/16 08:58 ; Admin Dose 5 ML; Start 06/07/16 at 09:00 Tamsulosin HCl (Flomax) 0.4 mg HS PO Last administered on 07/12/16 21:48; Admin Dose 0.4 MG; Start 06/07/16 at 21:00 Mupirocin (Bactroban) 1 applic BID TOP Last administered on 07/13/16 08:58; Admin Dose 1 APPLIC; Start 06/07/16 at 21:00 Metoclopramide HCl (Reglan) 10 mg Q6H PRN IV NAUSEA AND/OR VOMITING Last administered on 06/08/16 18:00; Admin Dose 10 MG; Start 06/08/16 at 09:30 Lorazepam (Ativan) 1 mg Q6H PRN IV AGITATION/ANXIETY Last administered on 23:15; Admin Dose 1 MG; Start 06/09/16 at 13:30 Citric Acid/ Sodium Citrate (Bicitra) 30 ml BID PO Last administered on 08:20; Admin Dose 30 ML; Start 06/26/16 at 21:00 Potassium Chloride (Potassium Chloride Pwd/Soln) 40 meq DAILY GTB Last administered on 07/13/16 08:23; Admin Dose 40 MEQ; Start 06/30/16 at 10:30 Atenolol (Tenormin) 12.5 mg BID PO Last administered on 07/13/16 08:23; Admin Dose 12.5 MG; Start 06/30/16 at 23:00 Diagnostic Test (Pha) (Accu-Chek) 1 ea Q12 XX Last administered on 07/11/16 21 :29; Admin Dose 1 EA; Start 07/05/16 at 09:00 Lansoprazole (Prevacid) 30 mg DAILY@06 GTB Last administered on 07/13/16 06:10 ; Admin Dose 30 MG; Start 07/06/16 at 06:00 Furosemide (Lasix) 20 mg DAILY IV Last administered on 07/13/16 08:24; Admin Dose 20 MG; Start 07/07/16 at 09:00 Calcium Carbonate (Tums) 1,000 mg BID PO Last administered on 07/13/16 08:22; Admin Dose 1,000 MG; Start 07/06/16 at 21:00 Cholecalciferol (Vitamin D) 800 units DAILY PO Last administered on 07/13/16 08:22; Admin Dose 800 UNITS; Start 07/07/16 at 09:00 Midodrine 5 mg 5 mg TID@,,17 GTB Last administered on 07/13/16 14:08; Admin Dose 5 MG; Start 07/07/16 at 17:00 Meropenem (Merrem 500 Mg/ 100 ml (Pmx)) 100 ml @ 200 mls/hr Q8 IVPB Last administered on 07/13/16 14:08; Admin Dose 200 MLS/HR; Start 07/11/16 at 14:00 Linezolid (Zyvox) 600 mg BID PO Last administered on 07/13/16 08:57; Admin Dose 600 MG; Start 07/12/16 at 12:00 HOLLI LINDER MD July 13, 2016 20:13
[2016-07-13] MEDS: TAMSULOSIN (SR) 0.4 MG CAP PO SCH (20:49)
[2016-07-14] VITALS (24 sets, daily range): BP systolic 101–143; BP diastolic 47–93; PULSE 60–85; RESP 17–29
[2016-07-14] MEDS: IPRATROPIUM (HFA) 12.9 GM INHALER INH SCH ×6 (02:05→21:13)
[2016-07-14] MEDS: ALBUTEROL 18 GM INHALER INH SCH ×6 (02:07→21:13)
[2016-07-14] MEDS: LANSOPRAZOLE 30 MG CAP GTB SCH (05:23)
[2016-07-14] MEDS: MEROPENEM 500 MG/100 ML (PMX) 100 ML IVPB SCH ×3 (05:23→21:35)
[2016-07-14] MEDS: MIDODRINE 5 MG TAB GTB SCH ×3 (09:00→18:34)
[2016-07-14] MEDS: COLISTIMETHATE (25 MG/ML INHAL SYG) NEB SCH ×2 (09:00→20:00)
[2016-07-14] MEDS: ACCU-CHEK XX SCH ×2 (09:00→21:43)
[2016-07-14] MEDS: MULTIVITAMINS 5 ML CUP GTB SCH (09:14)
[2016-07-14] MEDS: CITRIC ACID/SODIUM CITRATE 15 ML CUP PO SCH ×2 (09:14→21:35)
[2016-07-14] MEDS: FUROSEMIDE 20 MG INJ IV SCH (09:15)
[2016-07-14] MEDS: CHOLECALCIFEROL 400 UNITS TAB PO SCH (09:15)
[2016-07-14] MEDS: POTASSIUM CHLORIDE 20 MEQ POWDER FOR ORAL SOLN GTB SCH (09:15)
[2016-07-14] MEDS: ASPIRIN 325 MG TAB GTB SCH (09:15)
[2016-07-14] MEDS: CALCIUM CARBONATE 500 MG CHEW TAB PO SCH ×2 (09:15→21:34)
[2016-07-14] MEDS: ATENOLOL 25 MG TAB PO SCH ×2 (09:16→21:34)
[2016-07-14] MEDS: ASCORBIC ACID 500 MG TAB GTB SCH (09:16)
[2016-07-14] MEDS: ZYVOX 600 MG TAB PO SCH ×2 (09:16→21:32)
[2016-07-14] MEDS: COLLAGENASE 30 GM TUBE TOP SCH (09:17)
[2016-07-14] MEDS: MUPIROCIN 2% 22 GM OINT TOP SCH ×2 (09:17→21:40)
--- NOTE | 2016-07-14 12:13 | PN ---
Date/Time of Note Date/Time of Note DATE: 07/14/16 TIME: 12:12 Assessment/Plan VTE Prophylaxis VTE Prophylaxis Intervention: SCD's Lines/Catheters IV Catheter Type (from Nrsg): Peripheral IV Urinary Cath still in place: Yes Reason Cath still needed: urinary retention Assessment/Plan Chief Complaint/Hosp Course 1. Septic resolved 2. Pneumonia. aspiration, resolved 3. tracheostomy 4, GT 5. decubitus Problems: Assessment/Plan 1. Continue tube feeding 2. Continue breathing treatment 3. A/b per ID Subjective 24 Hr Interval Summary Subjective hx not possible: pt non-verbal Exam/Review of Systems Vital Signs Vitals Vital Signs Date Time Temp Pulse Resp B/P Pulse Ox O2 Delivery O2 Flow Rate FiO2 07/14/16 11:44 82 20 97 30 07/14/16 11:29 97.9 127/74 Intake and Output 07/13/16 07/13/16 07/14/16 15:00 23:00 07:00 Intake Total 975 ml 1065 ml 1065 ml Output Total 1300 ml 1500 ml 1800 ml Balance -325 ml -435 ml -735 ml Exam Constitutional: alert Head: normocephalic Eyes: nl conjunctiva Respiratory: diminished breath sounds, other (tracheostomy) Cardiovascular: regular rate and rhythm Gastrointestinal: soft Genitourinary - Male: nl penis Results Result Diagram: 07/12/16 0655 07/13/16 0725 Results 24 hrs Laboratory Tests Test 07/13/16 20:37 Bedside Glucose 115 Medications Medications Current Medications Naloxone HCl (Narcan) 0.4 mg Q3M PRN IV DECREASED REPIRATORY RATE; Start at 10:30 Ondansetron HCl (Zofran Inj) 4 mg Q6H PRN IV NAUSEA AND/OR VOMITING; Start 01/12 at 10:30 Nitroglycerin (Nitroglycerin (Sl Tab) 0.4 Mg) 1 tab Q5M PRN SL CHEST PAIN; Start 06/06/16 at 10:30 Acetaminophen (Tylenol Liquid) 650 mg Q6H PRN PO PAIN LEVEL 1-3 OR FEVER Last administered on 07/09/16 20:10; Admin Dose 650 MG; Start 06/06/16 at 10:30 Morphine Sulfate (morphine) 2 mg Q4H PRN IV PAIN LEVEL 7-10 Last administered on 06/15/16 00:22; Admin Dose 2 MG; Start 06/06/16 at 10:30 Docusate Sodium (Colace) 100 mg Q12H PRN PO CONSTIPATION; Start 06/06/16 at 10: 30 Magnesium Hydroxide (Milk Of Mag) 30 ml DAILY PRN PO CONSTIPATION; Start at 10:30 Bisacodyl (Dulcolax) 5 mg DAILY PRN PO CONSTIPATION; Start 06/06/16 at 10:30 Collagenase (Santyl) 1 applic DAILY TOP Last administered on 07/14/16 09:17; Admin Dose 1 APPLIC; Start 06/07/16 at 09:00 Collagenase (Santyl) 1 applic PRN PRN TOP WOUND CARE Last administered on 16:57; Admin Dose 1 APPLIC; Start 06/06/16 at 16:00 IV Flush (NS 10 ml) 10 ml PRN PRN IV IV PROTOCOL; Start 06/06/16 at 18:30 Ascorbic Acid (Vitamin C) 500 mg DAILY GTB Last administered on 07/14/16 09:16 ; Admin Dose 500 MG; Start 06/07/16 at 09:00 Aspirin (Aspirin) 325 mg DAILY GTB Last administered on 07/14/16 09:15; Admin Dose 325 MG; Start 06/07/16 at 09:00 Multivitamins (Thera-Plus) 5 ml DAILY GTB Last administered on 07/14/16 09:14 ; Admin Dose 5 ML; Start 06/07/16 at 09:00 Tamsulosin HCl (Flomax) 0.4 mg HS PO Last administered on 07/13/16 20:49; Admin Dose 0.4 MG; Start 06/07/16 at 21:00 Mupirocin (Bactroban) 1 applic BID TOP Last administered on 07/14/16 09:17; Admin Dose 1 APPLIC; Start 06/07/16 at 21:00 Metoclopramide HCl (Reglan) 10 mg Q6H PRN IV NAUSEA AND/OR VOMITING Last administered on 06/08/16 18:00; Admin Dose 10 MG; Start 06/08/16 at 09:30 Lorazepam (Ativan) 1 mg Q6H PRN IV AGITATION/ANXIETY Last administered on 23:15; Admin Dose 1 MG; Start 06/09/16 at 13:30 Citric Acid/ Sodium Citrate (Bicitra) 30 ml BID PO Last administered on 09:14; Admin Dose 30 ML; Start 06/26/16 at 21:00 Potassium Chloride (Potassium Chloride Pwd/Soln) 40 meq DAILY GTB Last administered on 07/14/16 09:15; Admin Dose 40 MEQ; Start 06/30/16 at 10:30 Atenolol (Tenormin) 12.5 mg BID PO Last administered on 07/14/16 09:16; Admin Dose 12.5 MG; Start 06/30/16 at 23:00 Diagnostic Test (Pha) (Accu-Chek) 1 ea Q12 XX Last administered on 07/11/16 21 :29; Admin Dose 1 EA; Start 07/05/16 at 09:00 Lansoprazole (Prevacid) 30 mg DAILY@06 GTB Last administered on 07/14/16 05:23 ; Admin Dose 30 MG; Start 07/06/16 at 06:00 Furosemide (Lasix) 20 mg DAILY IV Last administered on 07/14/16 09:15; Admin Dose 20 MG; Start 07/07/16 at 09:00 Calcium Carbonate (Tums) 1,000 mg BID PO Last administered on 07/14/16 09:15; Admin Dose 1,000 MG; Start 07/06/16 at 21:00 Cholecalciferol (Vitamin D) 800 units DAILY PO Last administered on 07/14/16 09:15; Admin Dose 800 UNITS; Start 07/07/16 at 09:00 Midodrine 5 mg 5 mg TID@,17 GTB Last administered on 07/13/16 14:08; Admin Dose 5 MG; Start 07/07/16 at 17:00 Meropenem (Merrem 500 Mg/ 100 ml (Pmx)) 100 ml @ 200 mls/hr Q8 IVPB Last administered on 07/14/16 05:23; Admin Dose 200 MLS/HR; Start 07/11/16 at 14:00 Linezolid (Zyvox) 600 mg BID PO Last administered on 07/14/16 09:16; Admin Dose 600 MG; Start 07/12/16 at 12:00 WANG BELL July 14, 2016 12:13
--- NOTE | 2016-07-14 14:00 | CONS ---
Date/Time of Note Date/Time of Note DATE: 07/14/16 TIME: 13:55 Assessment/Plan Assessment/Plan Chief Complaint/Hosp Course IMp: 1.CHF-systolic acute on chonic-reasonable volume status at this time 2.Resp failure s/p trach on vent 3.Cardiomyopathy-LVEF 25-30% 4.HTN-with recurrent episodes of Hotn on midodrine as necessary with overall improvement 5.PPM-s/p interrogation with proper function-episodes of SVT and short episode VT 06/09/16/good battery life 6.Leukocytosis-persistent 7.Tachycardia-PAF/AFL rate controlled 8.Perforated viscous s/p IR drain now removed with ongoing leukocytosis 9. Renal insuff-? overdiuresis-now improved and back to baseline 10. Wide complex tachy-NSVT today 06/30/16 Recc: -Tele -Continue abx's and f/u cx data and treat fevers -Continue atenolol as tolerated/possible only -Continue asa/low dose lovenox -Continue abx's/f/u cx data -Palliative care following -Now on midodrine BP support as necessary but will consider decrease in dose -S/P dose IVP digoxin with improvement in HR control -Continue low dose gentle lasix diuresis and follow volume status closely -Continue daily lasix diuresis Problems: Consultation Date/Type/Reason Admit Date/Time Jun 06, 2016 at 08:08 Initial Consult Date 06/07/16 Type of Consultation: Cardiology Reason for Consultation CHF/cardiomyopathy Referring Provider: HOLLI LINDER MD Exam/Review of Systems Vital Signs Vitals Vital Signs Date Time Temp Pulse Resp B/P Pulse Ox O2 Delivery O2 Flow Rate FiO2 07/14/16 12:00 69 07/14/16 11:44 20 97 30 07/14/16 11:29 97.9 127/74 Intake and Output 07/13/16 07/13/16 07/14/16 15:00 23:00 07:00 Intake Total 975 ml 1065 ml 1065 ml Output Total 1300 ml 1500 ml 1800 ml Balance -325 ml -435 ml -735 ml Exam Review of Systems: CONSTITUTIONAL: No fevers, chills. PULMONARY: trached CARDIOVASCULAR: No obvious chest pain/palpitations GASTROINTESTINAL: No nausea/vomiting. GENITOURINARY: No hematuria/dysuria. MUSCULOSKELETAL: No myagias/arthalgias. PSYCHIATRIC: The patient denies depression. NEUROLOGIC: No weakness Constitutional: alert Psych: no complaints Head: normocephalic ENMT: mucosa pink and moist Neck: jvd (9 cm water), supple Respiratory: diminished breath sounds (at bases/B) Cardiovascular: regular rate and rhythm Gastrointestinal: non-tender, soft Musculoskeletal: muscle tone (normal) Extremities: edema (none) Neurological: other (No focal deficits) Results Result Diagram: 07/12/16 0655 07/13/16 0725 Results 24 hrs Laboratory Tests Test 07/13/16 20:37 07/14/16 12:39 Bedside Glucose 115 134 Medications Medications Current Medications Naloxone HCl (Narcan) 0.4 mg Q3M PRN IV DECREASED REPIRATORY RATE; Start at 10:30 Ondansetron HCl (Zofran Inj) 4 mg Q6H PRN IV NAUSEA AND/OR VOMITING; Start 01/12 at 10:30 Nitroglycerin (Nitroglycerin (Sl Tab) 0.4 Mg) 1 tab Q5M PRN SL CHEST PAIN; Start 06/06/16 at 10:30 Acetaminophen (Tylenol Liquid) 650 mg Q6H PRN PO PAIN LEVEL 1-3 OR FEVER Last administered on 07/09/16 20:10; Admin Dose 650 MG; Start 06/06/16 at 10:30 Morphine Sulfate (morphine) 2 mg Q4H PRN IV PAIN LEVEL 7-10 Last administered on 06/15/16 00:22; Admin Dose 2 MG; Start 06/06/16 at 10:30 Docusate Sodium (Colace) 100 mg Q12H PRN PO CONSTIPATION; Start 06/06/16 at 10: 30 Magnesium Hydroxide (Milk Of Mag) 30 ml DAILY PRN PO CONSTIPATION; Start at 10:30 Bisacodyl (Dulcolax) 5 mg DAILY PRN PO CONSTIPATION; Start 06/06/16 at 10:30 Collagenase (Santyl) 1 applic DAILY TOP Last administered on 07/14/16 09:17; Admin Dose 1 APPLIC; Start 06/07/16 at 09:00 Collagenase (Santyl) 1 applic PRN PRN TOP WOUND CARE Last administered on 16:57; Admin Dose 1 APPLIC; Start 06/06/16 at 16:00 IV Flush (NS 10 ml) 10 ml PRN PRN IV IV PROTOCOL; Start 06/06/16 at 18:30 Ascorbic Acid (Vitamin C) 500 mg DAILY GTB Last administered on 07/14/16 09:16 ; Admin Dose 500 MG; Start 06/07/16 at 09:00 Aspirin (Aspirin) 325 mg DAILY GTB Last administered on 07/14/16 09:15; Admin Dose 325 MG; Start 06/07/16 at 09:00 Multivitamins (Thera-Plus) 5 ml DAILY GTB Last administered on 07/14/16 09:14 ; Admin Dose 5 ML; Start 06/07/16 at 09:00 Tamsulosin HCl (Flomax) 0.4 mg HS PO Last administered on 07/13/16 20:49; Admin Dose 0.4 MG; Start 06/07/16 at 21:00 Mupirocin (Bactroban) 1 applic BID TOP Last administered on 07/14/16 09:17; Admin Dose 1 APPLIC; Start 06/07/16 at 21:00 Metoclopramide HCl (Reglan) 10 mg Q6H PRN IV NAUSEA AND/OR VOMITING Last administered on 06/08/16 18:00; Admin Dose 10 MG; Start 06/08/16 at 09:30 Lorazepam (Ativan) 1 mg Q6H PRN IV AGITATION/ANXIETY Last administered on 23:15; Admin Dose 1 MG; Start 06/09/16 at 13:30 Citric Acid/ Sodium Citrate (Bicitra) 30 ml BID PO Last administered on 09:14; Admin Dose 30 ML; Start 06/26/16 at 21:00 Potassium Chloride (Potassium Chloride Pwd/Soln) 40 meq DAILY GTB Last administered on 07/14/16 09:15; Admin Dose 40 MEQ; Start 06/30/16 at 10:30 Atenolol (Tenormin) 12.5 mg BID PO Last administered on 07/14/16 09:16; Admin Dose 12.5 MG; Start 06/30/16 at 23:00 Diagnostic Test (Pha) (Accu-Chek) 1 ea Q12 XX Last administered on 07/11/16 21 :29; Admin Dose 1 EA; Start 07/05/16 at 09:00 Lansoprazole (Prevacid) 30 mg DAILY@06 GTB Last administered on 07/14/16 05:23 ; Admin Dose 30 MG; Start 07/06/16 at 06:00 Furosemide (Lasix) 20 mg DAILY IV Last administered on 07/14/16 09:15; Admin Dose 20 MG; Start 07/07/16 at 09:00 Calcium Carbonate (Tums) 1,000 mg BID PO Last administered on 07/14/16 09:15; Admin Dose 1,000 MG; Start 07/06/16 at 21:00 Cholecalciferol (Vitamin D) 800 units DAILY PO Last administered on 07/14/16 09:15; Admin Dose 800 UNITS; Start 07/07/16 at 09:00 Midodrine 5 mg 5 mg TID@,, GTB Last administered on 07/13/16 14:08; Admin Dose 5 MG; Start 07/07/16 at 17:00 Meropenem (Merrem 500 Mg/ 100 ml (Pmx)) 100 ml @ 200 mls/hr Q8 IVPB Last administered on 07/14/16 05:23; Admin Dose 200 MLS/HR; Start 07/11/16 at 14:00 Linezolid (Zyvox) 600 mg BID PO Last administered on 07/14/16 09:16; Admin Dose 600 MG; Start 07/12/16 at 12:00 JAYA GORE July 14, 2016 14:00
--- NOTE | 2016-07-14 14:35 | CONS ---
Date/Time of Note Date/Time of Note DATE: 07/14/16 TIME: 14:34 Consult Date/Type/Reason Admit Date/Time Jun 06, 2016 at 08:08 Initial Consult Date 06/07/16 Type of Consultation: Pulmonary Ordering Provider: HOLLI LINDER MD Subjective Patient remains stable no changes Objective Vital Signs Date Time Temp Pulse Resp B/P Pulse Ox O2 Delivery O2 Flow Rate FiO2 07/14/16 12:00 69 07/14/16 11:44 20 97 30 07/14/16 11:29 97.9 127/74 Intake and Output 07/13/16 07/13/16 07/14/16 14:59 22:59 06:59 Intake Total 975 ml 1065 ml 1065 ml Output Total 1300 ml 1500 ml 1800 ml Balance -325 ml -435 ml -735 ml Exam PHYSICAL EXAMINATION GENERAL: Elderly gentleman, on mechanical ventilation, VITAL SIGNS: see below. HEENT: Pupils equal, round, and reactive to light. Tracheostomy site clean and intact. CARDIAC: S1, S2, tachycardia. CHEST: Diminished air entry bilaterally. ABDOMEN: Mildly distended. Diminished bowel sounds no guarding or rebound EXTREMITIES: No cyanosis, clubbing edema +2 NEUROLOGIC: Generalized weakness Results/Medications Result Diagram: 07/12/16 0655 07/13/16 0725 Results 24 hrs Laboratory Tests Test 07/13/16 20:37 07/14/16 12:39 Bedside Glucose 115 134 Medications Current Medications Naloxone HCl (Narcan) 0.4 mg Q3M PRN IV DECREASED REPIRATORY RATE; Start at 10:30 Ondansetron HCl (Zofran Inj) 4 mg Q6H PRN IV NAUSEA AND/OR VOMITING; Start 01/12 at 10:30 Nitroglycerin (Nitroglycerin (Sl Tab) 0.4 Mg) 1 tab Q5M PRN SL CHEST PAIN; Start 06/06/16 at 10:30 Acetaminophen (Tylenol Liquid) 650 mg Q6H PRN PO PAIN LEVEL 1-3 OR FEVER Last administered on 07/09/16 20:10; Admin Dose 650 MG; Start 06/06/16 at 10:30 Morphine Sulfate (morphine) 2 mg Q4H PRN IV PAIN LEVEL 7-10 Last administered on 06/15/16 00:22; Admin Dose 2 MG; Start 06/06/16 at 10:30 Docusate Sodium (Colace) 100 mg Q12H PRN PO CONSTIPATION; Start 06/06/16 at 10: 30 Magnesium Hydroxide (Milk Of Mag) 30 ml DAILY PRN PO CONSTIPATION; Start at 10:30 Bisacodyl (Dulcolax) 5 mg DAILY PRN PO CONSTIPATION; Start 06/06/16 at 10:30 Collagenase (Santyl) 1 applic DAILY TOP Last administered on 07/14/16 09:17; Admin Dose 1 APPLIC; Start 06/07/16 at 09:00 Collagenase (Santyl) 1 applic PRN PRN TOP WOUND CARE Last administered on 16:57; Admin Dose 1 APPLIC; Start 06/06/16 at 16:00 IV Flush (NS 10 ml) 10 ml PRN PRN IV IV PROTOCOL; Start 06/06/16 at 18:30 Ascorbic Acid (Vitamin C) 500 mg DAILY GTB Last administered on 07/14/16 09:16 ; Admin Dose 500 MG; Start 06/07/16 at 09:00 Aspirin (Aspirin) 325 mg DAILY GTB Last administered on 07/14/16 09:15; Admin Dose 325 MG; Start 06/07/16 at 09:00 Multivitamins (Thera-Plus) 5 ml DAILY GTB Last administered on 07/14/16 09:14 ; Admin Dose 5 ML; Start 06/07/16 at 09:00 Tamsulosin HCl (Flomax) 0.4 mg HS PO Last administered on 07/13/16 20:49; Admin Dose 0.4 MG; Start 06/07/16 at 21:00 Mupirocin (Bactroban) 1 applic BID TOP Last administered on 07/14/16 09:17; Admin Dose 1 APPLIC; Start 06/07/16 at 21:00 Metoclopramide HCl (Reglan) 10 mg Q6H PRN IV NAUSEA AND/OR VOMITING Last administered on 06/08/16 18:00; Admin Dose 10 MG; Start 06/08/16 at 09:30 Lorazepam (Ativan) 1 mg Q6H PRN IV AGITATION/ANXIETY Last administered on 23:15; Admin Dose 1 MG; Start 06/09/16 at 13:30 Citric Acid/ Sodium Citrate (Bicitra) 30 ml BID PO Last administered on 09:14; Admin Dose 30 ML; Start 06/26/16 at 21:00 Potassium Chloride (Potassium Chloride Pwd/Soln) 40 meq DAILY GTB Last administered on 07/14/16 09:15; Admin Dose 40 MEQ; Start 06/30/16 at 10:30 Atenolol (Tenormin) 12.5 mg BID PO Last administered on 07/14/16 09:16; Admin Dose 12.5 MG; Start 06/30/16 at 23:00 Diagnostic Test (Pha) (Accu-Chek) 1 ea Q12 XX Last administered on 07/11/16 21 :29; Admin Dose 1 EA; Start 07/05/16 at 09:00 Lansoprazole (Prevacid) 30 mg DAILY@06 GTB Last administered on 07/14/16 05:23 ; Admin Dose 30 MG; Start 07/06/16 at 06:00 Furosemide (Lasix) 20 mg DAILY IV Last administered on 07/14/16 09:15; Admin Dose 20 MG; Start 07/07/16 at 09:00 Calcium Carbonate (Tums) 1,000 mg BID PO Last administered on 07/14/16 09:15; Admin Dose 1,000 MG; Start 07/06/16 at 21:00 Cholecalciferol (Vitamin D) 800 units DAILY PO Last administered on 07/14/16 09:15; Admin Dose 800 UNITS; Start 07/07/16 at 09:00 Midodrine 5 mg 5 mg TID@,,17 GTB Last administered on 07/13/16 14:08; Admin Dose 5 MG; Start 07/07/16 at 17:00 Meropenem (Merrem 500 Mg/ 100 ml (Pmx)) 100 ml @ 200 mls/hr Q8 IVPB Last administered on 07/14/16 14:23; Admin Dose 200 MLS/HR; Start 07/11/16 at 14:00 Linezolid (Zyvox) 600 mg BID PO Last administered on 07/14/16 09:16; Admin Dose 600 MG; Start 07/12/16 at 12:00 Assessment/Plan Chief Complaint/Hosp Course Assessment 1. Vent dependent respiratory failure with evidence of healthcare associated pneumonia 2. Status post bowel perforation with drainage, persistent leukocytosis 3. Ongoing sepsis as above 4. Chronic atrial fibrillation 5. Decubitus ulcers 6. Dysphagia with G-tube 7. Chronic encephalopathy Plan 1. Continue mechanical ventilation 2. Continue broad-spectrum antibiotics per infectious diseases 3. Surgical recommendations regarding abdominal drains 4. Palliative care consult appreciated 5. DVT and GI prophylaxis 6. Stable post transfusion Disposition Continue current care Overall prognosis very poor Bioethics meeting today Problems: KAVON TROY MD, [facility] July 14, 2016 14:35
--- NOTE | 2016-07-14 18:54 | CONS ---
Date/Time of Note Date/Time of Note DATE: 07/14/16 TIME: 18:53 Assessment/Plan Assessment/Plan Chief Complaint/Hosp Course SUBJECTIVE: No acute changes. No fevers. Looks comfortable MICROBIOLOGY: Blood culture on 07/10/2016 negative. Urine culture negative. Endotracheal aspirate grew Acinetobacter baumannii and Klebsiella pneumoniae. Wound cx + Enterococcus/Kleb ESBL/A. baumanii INDWELLINGS: Trach, PEG, Alfonso Abx: Colistin INH, Merrem, Zyvox PHYSICAL EXAMINATION: GENERAL: This is a fragile, chronically ill-appearing, elderly man who is in no distress. HEENT: Head atraumatic, normocephalic. Sclerae anicteric. Buccal mucosa dry. NECK: Supple. Tracheostomy present. CHEST: Rise symmetrical. Breath sounds diminished to bases. HEART: S1, S2. ABDOMEN: Soft. Bowel tones hypoactive. EXTREMITIES: With trace edema. ASSESSMENT: 1. Systemic inflammatory response syndrome with persistent leukocytosis 2 to # 4 2. Chronic respiratory failure, status post pneumonia, with endotracheal aspirate growing multi-drug resistant organisms===> on colistin inhalation. 3. Status post intra-abdominal abscess drainage==> repeat CT + resolution. 4. Infected sacral decubitus==> cx growing multiple bacteria. 5. Atrial fibrillation. 6. Acute on chronic anemia. 7. Status post methicillin-resistant Staphylococcus aureus bacteremia and urinary tract infection on admission. PLAN: Clinically unchanged, on appropriate abx, continue local wound care/off load, f/u surgical rec-s, vent per pulmonary DW staff Problems: Consultation Date/Type/Reason Admit Date/Time Jun 06, 2016 at 08:08 Initial Consult Date 06/07/16 Type of Consultation: ID Referring Provider: HOLLI LINDER MD Exam/Review of Systems Vital Signs Vitals Vital Signs Date Time Temp Pulse Resp B/P Pulse Ox O2 Delivery O2 Flow Rate FiO2 07/14/16 17:28 84 21 97 30 07/14/16 15:13 98.5 101/47 Intake and Output 07/13/16 07/13/16 07/14/16 15:00 23:00 07:00 Intake Total 975 ml 1065 ml 1065 ml Output Total 1300 ml 1500 ml 1800 ml Balance -325 ml -435 ml -735 ml Results Result Diagram: 07/12/16 0655 07/13/16 0725 Results 24 hrs Laboratory Tests Test 07/13/16 20:37 07/14/16 12:39 Bedside Glucose 115 134 Medications Medications Current Medications Naloxone HCl (Narcan) 0.4 mg Q3M PRN IV DECREASED REPIRATORY RATE; Start at 10:30 Ondansetron HCl (Zofran Inj) 4 mg Q6H PRN IV NAUSEA AND/OR VOMITING; Start 01/12 at 10:30 Nitroglycerin (Nitroglycerin (Sl Tab) 0.4 Mg) 1 tab Q5M PRN SL CHEST PAIN; Start 06/06/16 at 10:30 Acetaminophen (Tylenol Liquid) 650 mg Q6H PRN PO PAIN LEVEL 1-3 OR FEVER Last administered on 07/09/16 20:10; Admin Dose 650 MG; Start 06/06/16 at 10:30 Morphine Sulfate (morphine) 2 mg Q4H PRN IV PAIN LEVEL 7-10 Last administered on 06/15/16 00:22; Admin Dose 2 MG; Start 06/06/16 at 10:30 Docusate Sodium (Colace) 100 mg Q12H PRN PO CONSTIPATION; Start 06/06/16 at 10: 30 Magnesium Hydroxide (Milk Of Mag) 30 ml DAILY PRN PO CONSTIPATION; Start at 10:30 Bisacodyl (Dulcolax) 5 mg DAILY PRN PO CONSTIPATION; Start 06/06/16 at 10:30 Collagenase (Santyl) 1 applic DAILY TOP Last administered on 07/14/16 09:17; Admin Dose 1 APPLIC; Start 06/07/16 at 09:00 Collagenase (Santyl) 1 applic PRN PRN TOP WOUND CARE Last administered on 16:57; Admin Dose 1 APPLIC; Start 06/06/16 at 16:00 IV Flush (NS 10 ml) 10 ml PRN PRN IV IV PROTOCOL; Start 06/06/16 at 18:30 Ascorbic Acid (Vitamin C) 500 mg DAILY GTB Last administered on 07/14/16 09:16 ; Admin Dose 500 MG; Start 06/07/16 at 09:00 Aspirin (Aspirin) 325 mg DAILY GTB Last administered on 07/14/16 09:15; Admin Dose 325 MG; Start 06/07/16 at 09:00 Multivitamins (Thera-Plus) 5 ml DAILY GTB Last administered on 07/14/16 09:14 ; Admin Dose 5 ML; Start 06/07/16 at 09:00 Tamsulosin HCl (Flomax) 0.4 mg HS PO Last administered on 07/13/16 20:49; Admin Dose 0.4 MG; Start 06/07/16 at 21:00 Mupirocin (Bactroban) 1 applic BID TOP Last administered on 07/14/16 09:17; Admin Dose 1 APPLIC; Start 06/07/16 at 21:00 Metoclopramide HCl (Reglan) 10 mg Q6H PRN IV NAUSEA AND/OR VOMITING Last administered on 06/08/16 18:00; Admin Dose 10 MG; Start 06/08/16 at 09:30 Lorazepam (Ativan) 1 mg Q6H PRN IV AGITATION/ANXIETY Last administered on 23:15; Admin Dose 1 MG; Start 06/09/16 at 13:30 Citric Acid/ Sodium Citrate (Bicitra) 30 ml BID PO Last administered on 09:14; Admin Dose 30 ML; Start 06/26/16 at 21:00 Potassium Chloride (Potassium Chloride Pwd/Soln) 40 meq DAILY GTB Last administered on 07/14/16 09:15; Admin Dose 40 MEQ; Start 06/30/16 at 10:30 Atenolol (Tenormin) 12.5 mg BID PO Last administered on 07/14/16 09:16; Admin Dose 12.5 MG; Start 06/30/16 at 23:00 Diagnostic Test (Pha) (Accu-Chek) 1 ea Q12 XX Last administered on 07/11/16 21 :29; Admin Dose 1 EA; Start 07/05/16 at 09:00 Lansoprazole (Prevacid) 30 mg DAILY@06 GTB Last administered on 07/14/16 05:23 ; Admin Dose 30 MG; Start 07/06/16 at 06:00 Furosemide (Lasix) 20 mg DAILY IV Last administered on 07/14/16 09:15; Admin Dose 20 MG; Start 07/07/16 at 09:00 Calcium Carbonate (Tums) 1,000 mg BID PO Last administered on 07/14/16 09:15; Admin Dose 1,000 MG; Start 07/06/16 at 21:00 Cholecalciferol (Vitamin D) 800 units DAILY PO Last administered on 07/14/16 09:15; Admin Dose 800 UNITS; Start 07/07/16 at 09:00 Midodrine 5 mg 5 mg TID@,,17 GTB Last administered on 07/14/16 18:34; Admin Dose 5 MG; Start 07/07/16 at 17:00 Meropenem (Merrem 500 Mg/ 100 ml (Pmx)) 100 ml @ 200 mls/hr Q8 IVPB Last administered on 07/14/16 14:23; Admin Dose 200 MLS/HR; Start 07/11/16 at 14:00 Linezolid (Zyvox) 600 mg BID PO Last administered on 07/14/16 09:16; Admin Dose 600 MG; Start 07/12/16 at 12:00 JOSE G CUNNINGHAM NP July 14, 2016 18:54
--- NOTE | 2016-07-14 19:17 | PN ---
Date/Time of Note Date/Time of Note DATE: 07/12/16 TIME: 19:16 Assessment/Plan Lines/Catheters IV Catheter Type (from [facility]): Peripheral IV Alfonso in Place (from [facility]): Yes Assessment/Plan Chief Complaint/Hosp Course 1. Contained perforated viscous s/p IR drain 06/11. Cx noted. Leukocytosis resolved. Tube feeds. Bowel function. Drain dcd. s/p Abx. Persistent leukocytosis. Chemical code. -defer further w/u to primary team 2. Pneumonia -pulmonary toilette -abx 3. Sepsis, recent. Leukocytosis worsening again. -abx -as above 4. Sacral decubitus ulcer -off load -nutrition optimization -vit c -local care 5. Chronic AFib -rate control -optimize electrolytes -tx infections 6. Anemia, dropped again -? source -? tx 7. Hypoalbuminemia -eventual nutritional optimization 8. CHF -judicious fluid management -cardiac optimization Thank you, Late entry 07/12 Problems: Subjective 24 Hr Interval Summary Leukocytosis. No f/c. No cough. No sz. No rashes. No bloating. No vomiting. No bleeding. Exam/Review of Systems Vital Signs Vitals Vital Signs Date Time Temp Pulse Resp B/P Pulse Ox O2 Delivery O2 Flow Rate FiO2 07/14/16 17:28 84 21 97 30 07/14/16 15:13 98.5 101/47 Intake and Output 07/13/16 07/13/16 07/14/16 14:59 22:59 06:59 Intake Total 975 ml 1065 ml 1065 ml Output Total 1300 ml 1500 ml 1800 ml Balance -325 ml -435 ml -735 ml Exam Free Text/Dictation Constitutional: No distress, No oriented Psych: confusion, No anxiety Head: atraumatic, normocephalic Eyes: PERRL, nl conjunctiva, No icteric ENMT: mucosa pink and moist, nl external ears & nose, nl lips & teeth Neck: jvd (min), non-tender Respiratory: No congested cough, No labored breathing Cardiovascular: No edema, No regular rate and rhythm Gastrointestinal: soft, PEGNo distended, No firm, No rebound or guarding Musculoskeletal: No joint tenderness, No nl gait and stance Extremities: No calf tenderness, No cyanosis Neurological: No nl mental status, No nl speech, No nl strength Skin: nl turgor, rash or lesions (Sacral and LE decubitus ulcerations), No diaphoresis Lymph: nl lymph nodes Results Result Diagram: 07/12/16 0655 07/13/16 0725 DAREK AHMADI MD July 14, 2016 19:17
--- NOTE | 2016-07-14 19:18 | PN ---
Date/Time of Note Date/Time of Note DATE: 07/13/16 TIME: 19:17 Assessment/Plan Lines/Catheters IV Catheter Type (from [facility]): Peripheral IV Alfonso in Place (from [facility]): Yes Assessment/Plan Chief Complaint/Hosp Course 1. Contained perforated viscous s/p IR drain 06/11. Cx noted. Leukocytosis resolved. Tube feeds. Bowel function. Drain dcd. s/p Abx. Persistent leukocytosis. Chemical code. -defer further w/u to primary team 2. Pneumonia -pulmonary toilette -abx 3. Sepsis, recent. Leukocytosis worsening again. -abx -as above 4. Sacral decubitus ulcer -off load -nutrition optimization -vit c -local care 5. Chronic AFib -rate control -optimize electrolytes -tx infections 6. Anemia, dropped again -? source -? tx 7. Hypoalbuminemia -eventual nutritional optimization 8. CHF -judicious fluid management -cardiac optimization Thank you, Late entry 07/13 Problems: Subjective 24 Hr Interval Summary Leukocytosis. No f/c. No cough. No sz. No rashes. No bloating. No vomiting. No bleeding. Exam/Review of Systems Vital Signs Vitals Vital Signs Date Time Temp Pulse Resp B/P Pulse Ox O2 Delivery O2 Flow Rate FiO2 07/14/16 17:28 84 21 97 30 07/14/16 15:13 98.5 101/47 Intake and Output 07/13/16 07/13/16 07/14/16 14:59 22:59 06:59 Intake Total 975 ml 1065 ml 1065 ml Output Total 1300 ml 1500 ml 1800 ml Balance -325 ml -435 ml -735 ml Exam Free Text/Dictation Constitutional: No distress, No oriented Psych: confusion, No anxiety Head: atraumatic, normocephalic Eyes: PERRL, nl conjunctiva, No icteric ENMT: mucosa pink and moist, nl external ears & nose, nl lips & teeth Neck: jvd (min), non-tender Respiratory: No congested cough, No labored breathing Cardiovascular: No edema, No regular rate and rhythm Gastrointestinal: soft, PEGNo distended, No firm, No rebound or guarding Musculoskeletal: No joint tenderness, No nl gait and stance Extremities: No calf tenderness, No cyanosis Neurological: No nl mental status, No nl speech, No nl strength Skin: nl turgor, rash or lesions (Sacral and LE decubitus ulcerations), No diaphoresis Lymph: nl lymph nodes Results Result Diagram: 07/12/16 0655 07/13/16 0725 DAREK AHMADI MD July 14, 2016 19:18
--- NOTE | 2016-07-14 19:20 | PN ---
Date/Time of Note Date/Time of Note DATE: 07/14/16 TIME: : Assessment/Plan Lines/Catheters IV Catheter Type (from [facility]): Peripheral IV Alfonso in Place (from [facility]): Yes Assessment/Plan Chief Complaint/Hosp Course 1. Contained perforated viscous s/p IR drain 06/11. Cx noted. Leukocytosis resolved. Tube feeds. Bowel function. Drain dcd. s/p Abx. Persistent leukocytosis. Chemical code. -defer further w/u to primary team 2. Pneumonia -pulmonary toilette -abx 3. Sepsis, recent. Leukocytosis -abx -as above 4. Sacral decubitus ulcer -off load -nutrition optimization -vit c -local care 5. Chronic AFib -rate control -optimize electrolytes -tx infections 6. Anemia -tx prn 7. Hypoalbuminemia -eventual nutritional optimization 8. CHF -judicious fluid management -cardiac optimization Thank you, Problems: Subjective 24 Hr Interval Summary Leukocytosis. No f/c. No cough. No sz. No rashes. No bloating. No vomiting. No bleeding. Exam/Review of Systems Vital Signs Vitals Vital Signs Date Time Temp Pulse Resp B/P Pulse Ox O2 Delivery O2 Flow Rate FiO2 07/14/16 17:28 84 21 97 30 07/14/16 15:13 98.5 101/47 Intake and Output 07/13/16 07/13/16 07/14/16 14:59 22:59 06:59 Intake Total 975 ml 1065 ml 1065 ml Output Total 1300 ml 1500 ml 1800 ml Balance -325 ml -435 ml -735 ml Exam Free Text/Dictation Constitutional: No distress, No oriented Psych: confusion, No anxiety Head: atraumatic, normocephalic Eyes: PERRL, nl conjunctiva, No icteric ENMT: mucosa pink and moist, nl external ears & nose, nl lips & teeth Neck: jvd (min), non-tender Respiratory: No congested cough, No labored breathing Cardiovascular: No edema, No regular rate and rhythm Gastrointestinal: soft, PEGNo distended, No firm, No rebound or guarding Musculoskeletal: No joint tenderness, No nl gait and stance Extremities: No calf tenderness, No cyanosis Neurological: No nl mental status, No nl speech, No nl strength Skin: nl turgor, rash or lesions (Sacral and LE decubitus ulcerations), No diaphoresis Lymph: nl lymph nodes Results Result Diagram: 07/12/16 0655 07/13/16 0725 DAREK AHMADI MD July 14, 2016 19:20
[2016-07-14] MEDS: TAMSULOSIN (SR) 0.4 MG CAP PO SCH (21:34)
[2016-07-15] VITALS (23 sets, daily range): BP systolic 110–125; BP diastolic 56–61; PULSE 69–80; RESP 18–31
[2016-07-15] MEDS: IPRATROPIUM (HFA) 12.9 GM INHALER INH SCH ×6 (01:15→21:25)
[2016-07-15] MEDS: ALBUTEROL 18 GM INHALER INH SCH ×6 (01:15→21:25)
[2016-07-15] MEDS: LANSOPRAZOLE 30 MG CAP GTB SCH (05:19)
[2016-07-15] MEDS: MEROPENEM 500 MG/100 ML (PMX) 100 ML IVPB SCH ×3 (05:28→22:30)
[2016-07-15] MEDS: ACCU-CHEK XX SCH ×2 (09:00→21:00)
[2016-07-15] MEDS: COLISTIMETHATE (25 MG/ML INHAL SYG) NEB SCH ×2 (09:07→19:37)
[2016-07-15] MEDS: MULTIVITAMINS 5 ML CUP GTB SCH (10:02)
[2016-07-15] MEDS: CITRIC ACID/SODIUM CITRATE 15 ML CUP PO SCH ×2 (10:02→22:31)
[2016-07-15] MEDS: POTASSIUM CHLORIDE 20 MEQ POWDER FOR ORAL SOLN GTB SCH (10:02)
[2016-07-15] MEDS: CALCIUM CARBONATE 500 MG CHEW TAB PO SCH ×2 (10:03→22:30)
[2016-07-15] MEDS: ZYVOX 600 MG TAB PO SCH ×2 (10:03→22:30)
[2016-07-15] MEDS: ASPIRIN 325 MG TAB GTB SCH (10:03)
[2016-07-15] MEDS: CHOLECALCIFEROL 400 UNITS TAB PO SCH (10:04)
[2016-07-15] MEDS: ATENOLOL 25 MG TAB PO SCH ×2 (10:05→22:31)
[2016-07-15] MEDS: MIDODRINE 5 MG TAB GTB SCH ×3 (10:05→17:19)
[2016-07-15] MEDS: ASCORBIC ACID 500 MG TAB GTB SCH (10:05)
[2016-07-15] MEDS: COLLAGENASE 30 GM TUBE TOP SCH ×2 (10:06→22:30)
[2016-07-15] MEDS: MUPIROCIN 2% 22 GM OINT TOP SCH ×2 (10:06→22:32)
[2016-07-15] MEDS: FUROSEMIDE 20 MG INJ IV SCH (10:22)
--- NOTE | 2016-07-15 12:03 | PN ---
Date/Time of Note Date/Time of Note DATE: 07/15/16 TIME: 12:01 Assessment/Plan VTE Prophylaxis VTE Prophylaxis Intervention: SCD's Lines/Catheters IV Catheter Type (from Nrsg): Peripheral IV Urinary Cath still in place: Yes Reason Cath still needed: urinary retention Assessment/Plan Chief Complaint/Hosp Course 1. Septic resolved 2. Pneumonia. aspiration, resolved 3. tracheostomy 4, GT 5. decubitus Problems: Assessment/Plan 1. LAbs Am 2/ Continue vent support and Tube feeding 3. Kidney function optimization Subjective 24 Hr Interval Summary Subjective hx not possible: pt non-verbal Exam/Review of Systems Vital Signs Vitals Vital Signs Date Time Temp Pulse Resp B/P Pulse Ox O2 Delivery O2 Flow Rate FiO2 07/15/16 11:15 72 22 100 30 07/15/16 08:34 98.8 125/59 Intake and Output 07/14/16 07/14/16 07/15/16 15:00 23:00 07:00 Intake Total 1115 ml 975 ml Output Total 2600 ml 1800 ml Balance -1485 ml -825 ml Exam Constitutional: alert Neck: other (tracheostomy) Respiratory: diminished breath sounds Cardiovascular: regular rate and rhythm Results Result Diagram: 07/12/16 0655 07/13/16 0725 Results 24 hrs Laboratory Tests Test 07/14/16 12:39 07/14/16 21:29 Bedside Glucose 134 105 Medications Medications Current Medications Naloxone HCl (Narcan) 0.4 mg Q3M PRN IV DECREASED REPIRATORY RATE; Start at 10:30 Ondansetron HCl (Zofran Inj) 4 mg Q6H PRN IV NAUSEA AND/OR VOMITING; Start 01/12 at 10:30 Nitroglycerin (Nitroglycerin (Sl Tab) 0.4 Mg) 1 tab Q5M PRN SL CHEST PAIN; Start 06/06/16 at 10:30 Acetaminophen (Tylenol Liquid) 650 mg Q6H PRN PO PAIN LEVEL 1-3 OR FEVER Last administered on 07/09/16 20:10; Admin Dose 650 MG; Start 06/06/16 at 10:30 Morphine Sulfate (morphine) 2 mg Q4H PRN IV PAIN LEVEL 7-10 Last administered on 06/15/16 00:22; Admin Dose 2 MG; Start 06/06/16 at 10:30 Docusate Sodium (Colace) 100 mg Q12H PRN PO CONSTIPATION; Start 06/06/16 at 10: 30 Magnesium Hydroxide (Milk Of Mag) 30 ml DAILY PRN PO CONSTIPATION; Start at 10:30 Bisacodyl (Dulcolax) 5 mg DAILY PRN PO CONSTIPATION; Start 06/06/16 at 10:30 Collagenase (Santyl) 1 applic DAILY TOP Last administered on 07/15/16 10:06; Admin Dose 1 APPLIC; Start 06/07/16 at 09:00 Collagenase (Santyl) 1 applic PRN PRN TOP WOUND CARE Last administered on 16:57; Admin Dose 1 APPLIC; Start 06/06/16 at 16:00 IV Flush (NS 10 ml) 10 ml PRN PRN IV IV PROTOCOL; Start 06/06/16 at 18:30 Ascorbic Acid (Vitamin C) 500 mg DAILY GTB Last administered on 07/15/16 10:05 ; Admin Dose 500 MG; Start 06/07/16 at 09:00 Aspirin (Aspirin) 325 mg DAILY GTB Last administered on 07/15/16 10:03; Admin Dose 325 MG; Start 06/07/16 at 09:00 Multivitamins (Thera-Plus) 5 ml DAILY GTB Last administered on 07/15/16 10:02 ; Admin Dose 5 ML; Start 06/07/16 at 09:00 Tamsulosin HCl (Flomax) 0.4 mg HS PO Last administered on 07/14/16 21:34; Admin Dose 0.4 MG; Start 06/07/16 at 21:00 Mupirocin (Bactroban) 1 applic BID TOP Last administered on 07/15/16 10:06; Admin Dose 1 APPLIC; Start 06/07/16 at 21:00 Metoclopramide HCl (Reglan) 10 mg Q6H PRN IV NAUSEA AND/OR VOMITING Last administered on 06/08/16 18:00; Admin Dose 10 MG; Start 06/08/16 at 09:30 Lorazepam (Ativan) 1 mg Q6H PRN IV AGITATION/ANXIETY Last administered on 23:15; Admin Dose 1 MG; Start 06/09/16 at 13:30 Citric Acid/ Sodium Citrate (Bicitra) 30 ml BID PO Last administered on 10:02; Admin Dose 30 ML; Start 06/26/16 at 21:00 Potassium Chloride (Potassium Chloride Pwd/Soln) 40 meq DAILY GTB Last administered on 07/15/16 10:02; Admin Dose 40 MEQ; Start 06/30/16 at 10:30 Atenolol (Tenormin) 12.5 mg BID PO Last administered on 07/15/16 10:05; Admin Dose 12.5 MG; Start 06/30/16 at 23:00 Diagnostic Test (Pha) (Accu-Chek) 1 ea Q12 XX Last administered on 07/15/16 09 :00; Admin Dose 1 EA; Start 07/05/16 at 09:00 Lansoprazole (Prevacid) 30 mg DAILY@06 GTB Last administered on 07/15/16 05:19 ; Admin Dose 30 MG; Start 07/06/16 at 06:00 Furosemide (Lasix) 20 mg DAILY IV Last administered on 07/15/16 10:22; Admin Dose 20 MG; Start 07/07/16 at 09:00 Calcium Carbonate (Tums) 1,000 mg BID PO Last administered on 07/15/16 10:03; Admin Dose 1,000 MG; Start 07/06/16 at 21:00 Cholecalciferol (Vitamin D) 800 units DAILY PO Last administered on 07/15/16 10:04; Admin Dose 800 UNITS; Start 07/07/16 at 09:00 Midodrine 5 mg 5 mg TID@,,17 GTB Last administered on 07/15/16 10:05; Admin Dose 5 MG; Start 07/07/16 at 17:00 Meropenem (Merrem 500 Mg/ 100 ml (Pmx)) 100 ml @ 200 mls/hr Q8 IVPB Last administered on 07/15/16 05:28; Admin Dose 200 MLS/HR; Start 07/11/16 at 14:00 Linezolid (Zyvox) 600 mg BID PO Last administered on 07/15/16 10:03; Admin Dose 600 MG; Start 07/12/16 at 12:00 WANG BELL July 15, 2016 12:03
--- NOTE | 2016-07-15 12:19 | PN ---
DATE: 07/15/2016 PALLIATIVE CARE FOLLOWUP NOTE AND PARTICIPANT BIOETHICS NOTE At the bioethics meeting, which was done 07/15/2016, patient's son was invited to express his opinio n of his father's current medical management and goals of care. This was Cheko Mcdaniels who was presen t at the meeting. His brother Zaid could not make the meeting. We discussed Mr. Mcdaniels's medical c ondition and the patient's family's expectation for recovery. The patient's son was very clear that he felt his father had an acceptable quality of life prior to his admission to [facility] and then a followup admission to [facility] for a catastrophic medical illness, which has left him in this very serious moribund condition. Members of the bioethics team all participant s were available. The patient's background information was reviewed by the members of the team. Th sheron son's understanding of this patient's medical condition was addressed. He has hopes to bring his father back and hopefully to his acceptable quality of life, which was normal cognition and acceptab le activities of daily living. Fears, strengths, there are no cultural issues. Past experience had been expressed. Caregiver concerns was a very important issue as I expressed felt that he ne eded to have more conversation amongst the patient's health care team and to come to an overall clin ical understanding of this gentleman's underlying medical problems and to give him options for ongoi ng level of care based upon his entire medical team discussing this. This was brought to the bioeth ics attention and everyone agreed with this. It was decided to invite a member of his primary care team to participate in the next bioethics meeting, which will be done next Sunday, the week of 06/27. There are no pain or physical symptoms out of control or issues. There are ethical issues at this part as family members want to do what is in the best interest of their father and they feel that that has not been addressed adequately. He is a "chemical code only" and the patient's son wo uld like to keep it like that and not change that level of care in the event that his father has a c atastrophic change in his condition. Dictated By: HENRY GUPTA MD, LP/TRACY Conf#: [id number] [facility]#: [id number]
[2016-07-15] MEDS: ACETAMINOPHEN 650MG/20.3ML CUP PO PRN (12:28)
--- NOTE | 2016-07-15 16:07 | CONS ---
Date/Time of Note Date/Time of Note DATE: 07/15/16 TIME: 16:04 Assessment/Plan Assessment/Plan Chief Complaint/Hosp Course ID PROGRESS NOTE TOTAL ABX DAY => Colistin INH, Zyvox, Merrem 24H INTERVAL SUMMARY * 86 yo w/Dementia, encephalopathy, noncommunicative, trach->Vent, peg * Pt is on TPN * MICROBIOLOGY: Blood culture on 07/10/2016 negative. Urine culture negative. Sputum: ACBA + KP. Wound cx + Enterococcus/Kleb ESBL/A. baumanii PHYSICAL EXAMINATION: GENERAL: VSS, NADm, no fevers HEENT: Unremarkable, missing teeth NECK: Supple, trach-> Vent CHEST: Equal chest rise bilaterally, without dyspnea on observation HEART: Pulse RRR ABDOMEN: Soft, peg EXTREMITIES: Warm, PICC LUEXT w/TPN SKIN: Warm, dry SKIN: Decubs -- see photos ID ASSESSMENT: 85 yo M admitted with: 1. s/p Sepsis with persistent leukocytosis = RESOLVED * (+)MRSA septicemia w/BCx(+) MRSA on admission * Repeat BCx (-) 2. Perforated viscus, POD # 06/11/16 => CT guided ABD abscess drainage catheter placement * Abdominal fluid culture growing gram-negative rods, Klebsiella, enterococcus species Leuconostoc. * Late posted Cx result ANAEROBIC CULTURE Final Organism 1 BACTEROIDES FRAGILIS * FUNGAL WET MOUNT Final 10% POTASSIUM HYDROXIDE NO FUNGAL ELEMENTS OR HYPHAE SEEN 3. Respiratory failure= chronic VDRF 4. HCAP - suspect aspiration Pneumonia. * Chest x-ray revealed stable small bilateral pleural effusions with increased CHF. 5. Dysphagia. 6. Enterococcal urinary tract infection. 7. Candidiasis oral, skin folds INVASIVES: * Trach, PEG, FC, Intra-ABD drain, PICC LUEXT ABX ALLERGIES: KNDA CURRENT ABX: Colistin INH, Zyvox, Merrem ID RECOMMENDATIONS: 1. Continue current ABX => continue until re-evaluation & further recs by ID colleagues Sunday . . Problems: Consultation Date/Type/Reason Admit Date/Time Jun 06, 2016 at 08:08 Initial Consult Date 06/07/16 Type of Consultation: ID Referring Provider: HOLLI LINDER MD Exam/Review of Systems Vital Signs Vitals Vital Signs Date Time Temp Pulse Resp B/P Pulse Ox O2 Delivery O2 Flow Rate FiO2 07/15/16 13:15 60 28 99 30 5/20/17 12:21 99.0 110/57 Intake and Output 07/14/16 07/14/16 07/15/16 15:00 23:00 07:00 Intake Total 1115 ml 975 ml Output Total 2600 ml 1800 ml Balance -1485 ml -825 ml Results Result Diagram: 07/12/16 0655 07/13/16 0725 Results 24 hrs Laboratory Tests Test 07/14/16 21:29 Bedside Glucose 105 Medications Medications Current Medications Naloxone HCl (Narcan) 0.4 mg Q3M PRN IV DECREASED REPIRATORY RATE; Start at 10:30 Ondansetron HCl (Zofran Inj) 4 mg Q6H PRN IV NAUSEA AND/OR VOMITING; Start 01/12 at 10:30 Nitroglycerin (Nitroglycerin (Sl Tab) 0.4 Mg) 1 tab Q5M PRN SL CHEST PAIN; Start 06/06/16 at 10:30 Acetaminophen (Tylenol Liquid) 650 mg Q6H PRN PO PAIN LEVEL 1-3 OR FEVER Last administered on 07/15/16 12:28; Admin Dose 650 MG; Start 06/06/16 at 10:30 Morphine Sulfate (morphine) 2 mg Q4H PRN IV PAIN LEVEL 7-10 Last administered on 06/15/16 00:22; Admin Dose 2 MG; Start 06/06/16 at 10:30 Docusate Sodium (Colace) 100 mg Q12H PRN PO CONSTIPATION; Start 06/06/16 at 10: 30 Magnesium Hydroxide (Milk Of Mag) 30 ml DAILY PRN PO CONSTIPATION; Start at 10:30 Bisacodyl (Dulcolax) 5 mg DAILY PRN PO CONSTIPATION; Start 06/06/16 at 10:30 Collagenase (Santyl) 1 applic DAILY TOP Last administered on 07/15/16 10:06; Admin Dose 1 APPLIC; Start 06/07/16 at 09:00 Collagenase (Santyl) 1 applic PRN PRN TOP WOUND CARE Last administered on 16:57; Admin Dose 1 APPLIC; Start 06/06/16 at 16:00 IV Flush (NS 10 ml) 10 ml PRN PRN IV IV PROTOCOL; Start 06/06/16 at 18:30 Ascorbic Acid (Vitamin C) 500 mg DAILY GTB Last administered on 07/15/16 10:05 ; Admin Dose 500 MG; Start 06/07/16 at 09:00 Aspirin (Aspirin) 325 mg DAILY GTB Last administered on 07/15/16 10:03; Admin Dose 325 MG; Start 06/07/16 at 09:00 Multivitamins (Thera-Plus) 5 ml DAILY GTB Last administered on 07/15/16 10:02 ; Admin Dose 5 ML; Start 06/07/16 at 09:00 Tamsulosin HCl (Flomax) 0.4 mg HS PO Last administered on 07/14/16 21:34; Admin Dose 0.4 MG; Start 06/07/16 at 21:00 Mupirocin (Bactroban) 1 applic BID TOP Last administered on 07/15/16 10:06; Admin Dose 1 APPLIC; Start 06/07/16 at 21:00 Metoclopramide HCl (Reglan) 10 mg Q6H PRN IV NAUSEA AND/OR VOMITING Last administered on 06/08/16 18:00; Admin Dose 10 MG; Start 06/08/16 at 09:30 Lorazepam (Ativan) 1 mg Q6H PRN IV AGITATION/ANXIETY Last administered on 23:15; Admin Dose 1 MG; Start 06/09/16 at 13:30 Citric Acid/ Sodium Citrate (Bicitra) 30 ml BID PO Last administered on 10:02; Admin Dose 30 ML; Start 06/26/16 at 21:00 Potassium Chloride (Potassium Chloride Pwd/Soln) 40 meq DAILY GTB Last administered on 07/15/16 10:02; Admin Dose 40 MEQ; Start 06/30/16 at 10:30 Atenolol (Tenormin) 12.5 mg BID PO Last administered on 07/15/16 10:05; Admin Dose 12.5 MG; Start 06/30/16 at 23:00 Diagnostic Test (Pha) (Accu-Chek) 1 ea Q12 XX Last administered on 07/15/16 09 :00; Admin Dose 1 EA; Start 07/05/16 at 09:00 Lansoprazole (Prevacid) 30 mg DAILY@06 GTB Last administered on 07/15/16 05:19 ; Admin Dose 30 MG; Start 07/06/16 at 06:00 Furosemide (Lasix) 20 mg DAILY IV Last administered on 07/15/16 10:22; Admin Dose 20 MG; Start 07/07/16 at 09:00 Calcium Carbonate (Tums) 1,000 mg BID PO Last administered on 07/15/16 10:03; Admin Dose 1,000 MG; Start 07/06/16 at 21:00 Cholecalciferol (Vitamin D) 800 units DAILY PO Last administered on 07/15/16 10:04; Admin Dose 800 UNITS; Start 07/07/16 at 09:00 Midodrine 5 mg 5 mg TID@,,17 GTB Last administered on 07/15/16 12:31; Admin Dose 5 MG; Start 07/07/16 at 17:00 Meropenem (Merrem 500 Mg/ 100 ml (Pmx)) 100 ml @ 200 mls/hr Q8 IVPB Last administered on 07/15/16 12:59; Admin Dose 200 MLS/HR; Start 07/11/16 at 14:00 Linezolid (Zyvox) 600 mg BID PO Last administered on 07/15/16 10:03; Admin Dose 600 MG; Start 07/12/16 at 12:00 LINDSAY LAGUNAS NP July 15, 2016 16:07
--- NOTE | 2016-07-15 16:40 | CONS ---
Date/Time of Note Date/Time of Note DATE: 07/15/16 TIME: 16:38 Assessment/Plan Assessment/Plan Additional Assessment/Plan Ventilator setting; AC of 14, tidal volume 500, PEEP of 5, 30% FiO2. Assessment recommendations; 1. Patient admitted for severe sepsis due to sacral decubitus ulcers, currently on broad-spectrum antibiotic coverage. 2. Advanced dementia. 3. Chronic atrial ablation. 4. Chronic respiratory failure, ventilator dependent. Continue current treatment. Prognosis is extremely poor. Consultation Date/Type/Reason Admit Date/Time Jun 06, 2016 at 08:08 Initial Consult Date 06/07/16 Type of Consultation: Pulmonary Referring Provider: HOLLI LINDER MD 24 HR Interval Summary Free Text/Dictation Patient's condition remains unchanged. Remains unresponsive. Has remained hemodynamically stable. General exam; elderly male, on ventilator via tracheostomy currently in no distress, unresponsive. Exam/Review of Systems Vital Signs Vitals Vital Signs Date Time Temp Pulse Resp B/P Pulse Ox O2 Delivery O2 Flow Rate FiO2 07/15/16 16:29 69 07/15/16 15:20 21 98 30 07/15/16 12:21 99.0 110/57 Intake and Output 07/14/16 07/14/16 07/15/16 15:00 23:00 07:00 Intake Total 1115 ml 975 ml Output Total 2600 ml 1800 ml Balance -1485 ml -825 ml Exam HEENT exam; supple neck, no JVD. No lymphadenopathy. Midline trachea. No thyromegaly. Tracheostomy in place. Patient is edentulous. Has bilateral corneal opacities. Chest examination; diminished but clear vessel. S1-S2 audible, no murmurs. Abdomen examination; soft, G-tube in place. No organomegaly. Bowel sounds noted. Extremity examination of [place] no peripheral edema. Back examination; dressing applied over sacrum. LEAD DATA ARCHITECT examination; patient remains unresponsive. Results Result Diagram: 07/12/16 0655 07/13/16 0725 Results 24 hrs Laboratory Tests Test 07/14/16 21:29 Bedside Glucose 105 Medications Medications Current Medications Naloxone HCl (Narcan) 0.4 mg Q3M PRN IV DECREASED REPIRATORY RATE; Start at 10:30 Ondansetron HCl (Zofran Inj) 4 mg Q6H PRN IV NAUSEA AND/OR VOMITING; Start 01/12 at 10:30 Nitroglycerin (Nitroglycerin (Sl Tab) 0.4 Mg) 1 tab Q5M PRN SL CHEST PAIN; Start 06/06/16 at 10:30 Acetaminophen (Tylenol Liquid) 650 mg Q6H PRN PO PAIN LEVEL 1-3 OR FEVER Last administered on 07/15/16 12:28; Admin Dose 650 MG; Start 06/06/16 at 10:30 Morphine Sulfate (morphine) 2 mg Q4H PRN IV PAIN LEVEL 7-10 Last administered on 06/15/16 00:22; Admin Dose 2 MG; Start 06/06/16 at 10:30 Docusate Sodium (Colace) 100 mg Q12H PRN PO CONSTIPATION; Start 06/06/16 at 10: 30 Magnesium Hydroxide (Milk Of Mag) 30 ml DAILY PRN PO CONSTIPATION; Start at 10:30 Bisacodyl (Dulcolax) 5 mg DAILY PRN PO CONSTIPATION; Start 06/06/16 at 10:30 Collagenase (Santyl) 1 applic DAILY TOP Last administered on 07/15/16 10:06; Admin Dose 1 APPLIC; Start 06/07/16 at 09:00 Collagenase (Santyl) 1 applic PRN PRN TOP WOUND CARE Last administered on 16:57; Admin Dose 1 APPLIC; Start 06/06/16 at 16:00 IV Flush (NS 10 ml) 10 ml PRN PRN IV IV PROTOCOL; Start 06/06/16 at 18:30 Ascorbic Acid (Vitamin C) 500 mg DAILY GTB Last administered on 07/15/16 10:05 ; Admin Dose 500 MG; Start 06/07/16 at 09:00 Aspirin (Aspirin) 325 mg DAILY GTB Last administered on 07/15/16 10:03; Admin Dose 325 MG; Start 06/07/16 at 09:00 Multivitamins (Thera-Plus) 5 ml DAILY GTB Last administered on 07/15/16 10:02 ; Admin Dose 5 ML; Start 06/07/16 at 09:00 Tamsulosin HCl (Flomax) 0.4 mg HS PO Last administered on 07/14/16 21:34; Admin Dose 0.4 MG; Start 06/07/16 at 21:00 Mupirocin (Bactroban) 1 applic BID TOP Last administered on 07/15/16 10:06; Admin Dose 1 APPLIC; Start 06/07/16 at 21:00 Metoclopramide HCl (Reglan) 10 mg Q6H PRN IV NAUSEA AND/OR VOMITING Last administered on 06/08/16 18:00; Admin Dose 10 MG; Start 06/08/16 at 09:30 Lorazepam (Ativan) 1 mg Q6H PRN IV AGITATION/ANXIETY Last administered on 23:15; Admin Dose 1 MG; Start 06/09/16 at 13:30 Citric Acid/ Sodium Citrate (Bicitra) 30 ml BID PO Last administered on 10:02; Admin Dose 30 ML; Start 06/26/16 at 21:00 Potassium Chloride (Potassium Chloride Pwd/Soln) 40 meq DAILY GTB Last administered on 07/15/16 10:02; Admin Dose 40 MEQ; Start 06/30/16 at 10:30 Atenolol (Tenormin) 12.5 mg BID PO Last administered on 07/15/16 10:05; Admin Dose 12.5 MG; Start 06/30/16 at 23:00 Diagnostic Test (Pha) (Accu-Chek) 1 ea Q12 XX Last administered on 07/15/16 09 :00; Admin Dose 1 EA; Start 07/05/16 at 09:00 Lansoprazole (Prevacid) 30 mg DAILY@06 GTB Last administered on 07/15/16 05:19 ; Admin Dose 30 MG; Start 07/06/16 at 06:00 Furosemide (Lasix) 20 mg DAILY IV Last administered on 07/15/16 10:22; Admin Dose 20 MG; Start 07/07/16 at 09:00 Calcium Carbonate (Tums) 1,000 mg BID PO Last administered on 07/15/16 10:03; Admin Dose 1,000 MG; Start 07/06/16 at 21:00 Cholecalciferol (Vitamin D) 800 units DAILY PO Last administered on 07/15/16 10:04; Admin Dose 800 UNITS; Start 07/07/16 at 09:00 Midodrine 5 mg 5 mg TID@,, GTB Last administered on 07/15/16 12:31; Admin Dose 5 MG; Start 07/07/16 at 17:00 Meropenem (Merrem 500 Mg/ 100 ml (Pmx)) 100 ml @ 200 mls/hr Q8 IVPB Last administered on 07/15/16 12:59; Admin Dose 200 MLS/HR; Start 07/11/16 at 14:00 Linezolid (Zyvox) 600 mg BID PO Last administered on 07/15/16 10:03; Admin Dose 600 MG; Start 07/12/16 at 12:00 GERALDINE CUNNINGHAM July 15, 2016 16:40
--- NOTE | 2016-07-15 16:53 | CONS ---
Date/Time of Note Date/Time of Note DATE: 07/15/16 TIME: 16:51 Assessment/Plan Assessment/Plan Additional Assessment/Plan Acute exacerbation of CHF Combined systolic and diastolic heart failure Respiratory failure HTN Cardiac dysrhythmias, Atrial fibrillation/a.flutter s/p PPM NSVT Hemodynamically stable Heart failure clinically compensated Avoid Volume Overload Continue Midodrine Continue Atenolol Continue Lasix as scheduled Continue nebs as scheduled Continue Antibiotics Consultation Date/Type/Reason Admit Date/Time Jun 06, 2016 at 08:08 Constitutional: improved Respiratory: no complaints Cardiovascular: no complaints Gastrointestinal: no complaints Genitourinary: no complaints Psychological: no complaints Social History Smoking Status: Unknown if ever smoked Exam/Review of Systems Vital Signs Vitals Vital Signs Date Time Temp Pulse Resp B/P Pulse Ox O2 Delivery O2 Flow Rate FiO2 07/15/16 16:29 69 07/15/16 15:20 21 98 30 07/15/16 12:21 99.0 110/57 Intake and Output 07/14/16 07/14/16 07/15/16 15:00 23:00 07:00 Intake Total 1115 ml 975 ml Output Total 2600 ml 1800 ml Balance -1485 ml -825 ml Exam Constitutional: non-verbal Neck: other (Trach on Vent) Respiratory: other (Mechanical braeth sounds heard bilaterally) Cardiovascular: regular rate and rhythm Gastrointestinal: nl liver, spleen, non-tender, soft Extremities: normal pulses Results Result Diagram: 07/12/16 0655 07/13/16 0725 Results 24 hrs Laboratory Tests Test 07/14/16 21:29 Bedside Glucose 105 Medications Medications Current Medications Naloxone HCl (Narcan) 0.4 mg Q3M PRN IV DECREASED REPIRATORY RATE; Start at 10:30 Ondansetron HCl (Zofran Inj) 4 mg Q6H PRN IV NAUSEA AND/OR VOMITING; Start 01/12 at 10:30 Nitroglycerin (Nitroglycerin (Sl Tab) 0.4 Mg) 1 tab Q5M PRN SL CHEST PAIN; Start 06/06/16 at 10:30 Acetaminophen (Tylenol Liquid) 650 mg Q6H PRN PO PAIN LEVEL 1-3 OR FEVER Last administered on 07/15/16t 12:28; Admin Dose 650 MG; Start 06/06/16 at 10:30 Morphine Sulfate (morphine) 2 mg Q4H PRN IV PAIN LEVEL 7-10 Last administered on 06/15/16 00:22; Admin Dose 2 MG; Start 06/06/16 at 10:30 Docusate Sodium (Colace) 100 mg Q12H PRN PO CONSTIPATION; Start 06/06/16 at 10: 30 Magnesium Hydroxide (Milk Of Mag) 30 ml DAILY PRN PO CONSTIPATION; Start at 10:30 Bisacodyl (Dulcolax) 5 mg DAILY PRN PO CONSTIPATION; Start 06/06/16 at 10:30 Collagenase (Santyl) 1 applic DAILY TOP Last administered on 07/15/16 10:06; Admin Dose 1 APPLIC; Start 06/07/16 at 09:00 Collagenase (Santyl) 1 applic PRN PRN TOP WOUND CARE Last administered on 16:57; Admin Dose 1 APPLIC; Start 06/06/16 at 16:00 IV Flush (NS 10 ml) 10 ml PRN PRN IV IV PROTOCOL; Start 06/06/16 at 18:30 Ascorbic Acid (Vitamin C) 500 mg DAILY GTB Last administered on 07/15/16 10:05 ; Admin Dose 500 MG; Start 06/07/16 at 09:00 Aspirin (Aspirin) 325 mg DAILY GTB Last administered on 07/15/16 10:03; Admin Dose 325 MG; Start 06/07/16 at 09:00 Multivitamins (Thera-Plus) 5 ml DAILY GTB Last administered on 07/15/16 10:02 ; Admin Dose 5 ML; Start 06/07/16 at 09:00 Tamsulosin HCl (Flomax) 0.4 mg HS PO Last administered on 07/14/16 21:34; Admin Dose 0.4 MG; Start 06/07/16 at 21:00 Mupirocin (Bactroban) 1 applic BID TOP Last administered on 07/15/16 10:06; Admin Dose 1 APPLIC; Start 06/07/16 at 21:00 Metoclopramide HCl (Reglan) 10 mg Q6H PRN IV NAUSEA AND/OR VOMITING Last administered on 06/08/16 18:00; Admin Dose 10 MG; Start 06/08/16 at 09:30 Lorazepam (Ativan) 1 mg Q6H PRN IV AGITATION/ANXIETY Last administered on 23:15; Admin Dose 1 MG; Start 06/09/16 at 13:30 Citric Acid/ Sodium Citrate (Bicitra) 30 ml BID PO Last administered on 10:02; Admin Dose 30 ML; Start 06/26/16 at 21:00 Potassium Chloride (Potassium Chloride Pwd/Soln) 40 meq DAILY GTB Last administered on 07/15/16 10:02; Admin Dose 40 MEQ; Start 06/30/16 at 10:30 Atenolol (Tenormin) 12.5 mg BID PO Last administered on 07/15/16 10:05; Admin Dose 12.5 MG; Start 06/30/16 at 23:00 Diagnostic Test (Pha) (Accu-Chek) 1 ea Q12 XX Last administered on 07/15/16 09 :00; Admin Dose 1 EA; Start 07/05/16 at 09:00 Lansoprazole (Prevacid) 30 mg DAILY@06 GTB Last administered on 07/15/16 05:19 ; Admin Dose 30 MG; Start 07/06/16 at 06:00 Furosemide (Lasix) 20 mg DAILY IV Last administered on 07/15/16 10:22; Admin Dose 20 MG; Start 07/07/16 at 09:00 Calcium Carbonate (Tums) 1,000 mg BID PO Last administered on 07/15/16 10:03; Admin Dose 1,000 MG; Start 07/06/16 at 21:00 Cholecalciferol (Vitamin D) 800 units DAILY PO Last administered on 07/15/16 10:04; Admin Dose 800 UNITS; Start 07/07/16 at 09:00 Midodrine 5 mg 5 mg TID@,,17 GTB Last administered on 07/15/16 12:31; Admin Dose 5 MG; Start 07/07/16 at 17:00 Meropenem (Merrem 500 Mg/ 100 ml (Pmx)) 100 ml @ 200 mls/hr Q8 IVPB Last administered on 07/15/16 12:59; Admin Dose 200 MLS/HR; Start 07/11/16 at 14:00 Linezolid (Zyvox) 600 mg BID PO Last administered on 07/15/16 10:03; Admin Dose 600 MG; Start 07/12/16 at 12:00 CHRISTIAN FERMIN M.D. July 15, 2016 16:53
[2016-07-15] MEDS: TAMSULOSIN (SR) 0.4 MG CAP PO SCH (22:30)
[2016-07-16] VITALS (23 sets, daily range): BP systolic 128–158; BP diastolic 58–73; PULSE 66–90; RESP 18–32
[2016-07-16] MEDS: ALBUTEROL 18 GM INHALER INH SCH ×6 (01:20→22:16)
[2016-07-16] MEDS: IPRATROPIUM (HFA) 12.9 GM INHALER INH SCH ×6 (01:21→22:16)
[2016-07-16] MEDS: LANSOPRAZOLE 30 MG CAP GTB SCH (06:03)
[2016-07-16] MEDS: MEROPENEM 500 MG/100 ML (PMX) 100 ML IVPB SCH ×3 (06:03→21:58)
[2016-07-16 06:36] LABS: ABNORMAL IP MESSAGE 1; HEMATOCRIT 27.8 % (42.0-52.0); HEMOGLOBIN 8.2 g/dl (14.0-18.0); MEAN CORPUSCULAR HEMOGLOBIN 28.7 pg (29.0-33.0); MEAN CORPUSCULAR HGB CONC 29.5 g/dl (32.0-37.0); MEAN CORPUSCULAR VOLUME 97.2 fl (82.0-101.0); MEAN PLATELET VOLUME 11.3 fl (7.4-10.4); PLATELET COUNT 256 10^3/UL (140-415); RED BLOOD COUNT 2.86 10^6/ul (4.70-6.10); RED CELL DISTRIBUTION WIDTH 18.8 % (11.5-14.5); WHITE BLOOD COUNT 17.6 10^3/ul (4.8-10.8)
[2016-07-16 06:57] LABS: CALCIUM 7.9 mg/dl (8.4-10.2); CREATININE 0.73 mg/dl (0.61-1.24); POTASSIUM 4.8 mmol/L (3.5-5.1)
[2016-07-16 07:15] LABS: ADD SCAN DIFF YES
[2016-07-16] MEDS: COLISTIMETHATE (25 MG/ML INHAL SYG) NEB SCH ×2 (08:54→19:24)
[2016-07-16] MEDS: MIDODRINE 5 MG TAB GTB SCH ×3 (09:00→17:00)
[2016-07-16] MEDS: ASCORBIC ACID 500 MG TAB GTB SCH (09:32)
[2016-07-16] MEDS: CALCIUM CARBONATE 500 MG CHEW TAB PO SCH ×2 (09:32→21:58)
[2016-07-16] MEDS: ZYVOX 600 MG TAB PO SCH ×2 (09:32→21:58)
[2016-07-16] MEDS: ATENOLOL 25 MG TAB PO SCH ×2 (09:33→21:58)
[2016-07-16] MEDS: COLLAGENASE 30 GM TUBE TOP SCH (09:34)
[2016-07-16] MEDS: CHOLECALCIFEROL 400 UNITS TAB PO SCH (09:34)
[2016-07-16] MEDS: ASPIRIN 325 MG TAB GTB SCH (09:34)
[2016-07-16] MEDS: MUPIROCIN 2% 22 GM OINT TOP SCH ×2 (09:34→21:59)
[2016-07-16] MEDS: MULTIVITAMINS 5 ML CUP GTB SCH (09:35)
[2016-07-16] MEDS: CITRIC ACID/SODIUM CITRATE 15 ML CUP PO SCH ×2 (09:35→21:58)
[2016-07-16] MEDS: POTASSIUM CHLORIDE 20 MEQ POWDER FOR ORAL SOLN GTB SCH (09:35)
[2016-07-16] MEDS: ACCU-CHEK XX SCH ×2 (09:36→22:08)
[2016-07-16] MEDS: FUROSEMIDE 20 MG INJ IV SCH (09:36)
[2016-07-16 10:24] LABS: EOSINOPHILS # 0.2 10^3/ul (0.0-0.5); LYMPHOCYTES # 2.6 10^3/ul (0.8-2.9); MONOCYTE # 0.9 10^3/ul (0.3-0.9); NEUTROPHIL # 13.2 10^3/ul (1.6-7.5)
--- NOTE | 2016-07-16 12:13 | CONS ---
Date/Time of Note Date/Time of Note DATE: 07/16/16 TIME: 12:11 Assessment/Plan Assessment/Plan Additional Assessment/Plan Ventilator setting; AC of 14, tidal volume 500, PEEP of 5, 30% FiO2. Next Assessment recommend patient; next 1. Patient admitted for sepsis from severe sacral decubitus ulcers currently on broad-spectrum antibiotic coverage. 2. Advanced dementia. 3. Chronic respiratory failure, patient remains ventilator dependent. 4. Chronic atrial fibrillation. Continue current treatment. Prognosis is poor. Consultation Date/Type/Reason Admit Date/Time Jun 06, 2016 at 08:08 Initial Consult Date 06/07/16 Type of Consultation: Pulmonary Referring Provider: HOLLI LINDER MD 24 HR Interval Summary Free Text/Dictation Patient condition remains unchanged. Remains essentially unresponsive. Has remained hemodynamically stable. General exam; elderly male, currently in no distress. On ventilator via tracheostomy, unresponsive. Exam/Review of Systems Vital Signs Vitals Vital Signs Date Time Temp Pulse Resp B/P Pulse Ox O2 Delivery O2 Flow Rate FiO2 07/16/16 12:06 98.7 87 22 158/73 99 07/16/16 09:00 30 Intake and Output 07/15/16 07/15/16 07/16/16 15:00 23:00 07:00 Intake Total 1130 ml 747 ml Output Total 2200 ml 1150 ml Balance -1070 ml -403 ml Exam HEENT exam is; supple neck, no JVD. No lymphadenopathy. Midline trachea. No thyromegaly. Tracheostomy in place. Patient is edentulous. Has bilateral corneal opacities. Chest examination; diminished but clear vessel. S1-S2 audible, no murmurs. Irregular rhythm. Abdomen examination; soft, nondistended. No organomegaly. G-tube in place. Bowel sounds audible. Extremity exam is; no peripheral edema. Back examination; dressing applied over sacrum. RESPIRATORY THERAPY AIDE examination; patient remains unresponsive. Results Result Diagram: 07/16/16 0540 07/16/16 0540 Results 24 hrs Laboratory Tests Test 07/15/16 22:02 07/16/16 05:40 Bedside Glucose 91 White Blood Count 17.6 #H Red Blood Count 2.86 L Hemoglobin 8.2 L Hematocrit 27.8 L Mean Corpuscular Volume 97.2 Mean Corpuscular Hemoglobin 28.7 L Mean Corpuscular Hemoglobin Concent 29.5 L Red Cell Distribution Width 18.8 H Platelet Count 256 # Mean Platelet Volume 11.3 H Neutrophils % 75.0 Lymphocytes % 15.0 Monocytes % 5.0 Eosinophils % 1.0 Basophils % Metamyelocytes % 4.0 H Nucleated Red Blood Cells % Neutrophils # 13.2 H Lymphocytes # 2.6 Monocytes # 0.9 Eosinophils # 0.2 Basophils # Metamyelocytes # 0.7 Nucleated Red Blood Cells # Differential Comment MANUAL DIFF Large Platelets OCCASIONAL Giant Platelets RARE Sodium Level 142 Potassium Level 4.8 Chloride Level 108 Carbon Dioxide Level 31 Anion Gap 8 Blood Urea Nitrogen 37 H Creatinine 0.73 Glucose Level 110 Calcium Level 7.9 L Medications Medications Current Medications Naloxone HCl (Narcan) 0.4 mg Q3M PRN IV DECREASED REPIRATORY RATE; Start at 10:30 Ondansetron HCl (Zofran Inj) 4 mg Q6H PRN IV NAUSEA AND/OR VOMITING; Start 01/12 at 10:30 Nitroglycerin (Nitroglycerin (Sl Tab) 0.4 Mg) 1 tab Q5M PRN SL CHEST PAIN; Start 06/06/16 at 10:30 Acetaminophen (Tylenol Liquid) 650 mg Q6H PRN PO PAIN LEVEL 1-3 OR FEVER Last administered on 07/15/16 12:28; Admin Dose 650 MG; Start 06/06/16 at 10:30 Morphine Sulfate (morphine) 2 mg Q4H PRN IV PAIN LEVEL 7-10 Last administered on 06/15/16 00:22; Admin Dose 2 MG; Start 06/06/16 at 10:30 Docusate Sodium (Colace) 100 mg Q12H PRN PO CONSTIPATION; Start 06/06/16 at 10: 30 Magnesium Hydroxide (Milk Of Mag) 30 ml DAILY PRN PO CONSTIPATION; Start at 10:30 Bisacodyl (Dulcolax) 5 mg DAILY PRN PO CONSTIPATION; Start 06/06/16 at 10:30 Collagenase (Santyl) 1 applic DAILY TOP Last administered on 07/16/16 09:34; Admin Dose 1 APPLIC; Start 06/07/16 at 09:00 Collagenase (Santyl) 1 applic PRN PRN TOP WOUND CARE Last administered on 16:57; Admin Dose 1 APPLIC; Start 06/06/16 at 16:00 IV Flush (NS 10 ml) 10 ml PRN PRN IV IV PROTOCOL; Start 06/06/16 at 18:30 Ascorbic Acid (Vitamin C) 500 mg DAILY GTB Last administered on 07/16/16 09:32 ; Admin Dose 500 MG; Start 06/07/16 at 09:00 Aspirin (Aspirin) 325 mg DAILY GTB Last administered on 07/16/16 09:34; Admin Dose 325 MG; Start 06/07/16 at 09:00 Multivitamins (Thera-Plus) 5 ml DAILY GTB Last administered on 07/16/16 09:35 ; Admin Dose 5 ML; Start 06/07/16 at 09:00 Tamsulosin HCl (Flomax) 0.4 mg HS PO Last administered on 07/15/16 22:30; Admin Dose 0.4 MG; Start 06/07/16 at 21:00 Mupirocin (Bactroban) 1 applic BID TOP Last administered on 07/16/16 09:34; Admin Dose 1 APPLIC; Start 06/07/16 at 21:00 Metoclopramide HCl (Reglan) 10 mg Q6H PRN IV NAUSEA AND/OR VOMITING Last administered on 06/08/16 18:00; Admin Dose 10 MG; Start 06/08/16 at 09:30 Lorazepam (Ativan) 1 mg Q6H PRN IV AGITATION/ANXIETY Last administered on 23:15; Admin Dose 1 MG; Start 06/09/16 at 13:30 Citric Acid/ Sodium Citrate (Bicitra) 30 ml BID PO Last administered on 09:35; Admin Dose 30 ML; Start 06/26/16 at 21:00 Potassium Chloride (Potassium Chloride Pwd/Soln) 40 meq DAILY GTB Last administered on 07/16/16 09:35; Admin Dose 40 MEQ; Start 06/30/16 at 10:30 Atenolol (Tenormin) 12.5 mg BID PO Last administered on 07/16/16 09:33; Admin Dose 12.5 MG; Start 06/30/16 at 23:00 Diagnostic Test (Pha) (Accu-Chek) 1 ea Q12 XX Last administered on 07/16/16 09 :36; Admin Dose 1 EA; Start 5/10/17 at 09:00 Lansoprazole (Prevacid) 30 mg DAILY@06 GTB Last administered on 07/16/16 06:03 ; Admin Dose 30 MG; Start 07/06/16 at 06:00 Furosemide (Lasix) 20 mg DAILY IV Last administered on 07/16/16 09:36; Admin Dose 20 MG; Start 07/07/16 at 09:00 Calcium Carbonate (Tums) 1,000 mg BID PO Last administered on 07/16/16 09:32; Admin Dose 1,000 MG; Start 07/06/16 at 21:00 Cholecalciferol (Vitamin D) 800 units DAILY PO Last administered on 07/16/16 09:34; Admin Dose 800 UNITS; Start 07/07/16 at 09:00 Midodrine 5 mg 5 mg TID@,17 GTB Last administered on 07/15/16 17:19; Admin Dose 5 MG; Start 07/07/16 at 17:00 Meropenem (Merrem 500 Mg/ 100 ml (Pmx)) 100 ml @ 200 mls/hr Q8 IVPB Last administered on 07/16/16 06:03; Admin Dose 200 MLS/HR; Start 07/11/16 at 14:00 Linezolid (Zyvox) 600 mg BID PO Last administered on 07/16/16 09:32; Admin Dose 600 MG; Start 07/12/16 at 12:00 GERALDINE CUNNINGHAM July 16, 2016 12:13
--- NOTE | 2016-07-16 12:23 | CONS ---
Date/Time of Note Date/Time of Note DATE: 07/16/16 TIME: 12:23 Assessment/Plan Assessment/Plan Additional Assessment/Plan Acute exacerbation of CHF Combined systolic and diastolic heart failure Respiratory failure HTN Cardiac dysrhythmias, Atrial fibrillation/a.flutter s/p PPM NSVT Hemodynamically stable Heart failure clinically compensated Avoid Volume Overload Continue Midodrine Continue Atenolol Continue Lasix as scheduled Continue nebs as scheduled Continue Antibiotics Consultation Date/Type/Reason Admit Date/Time Jun 06, 2016 at 08:08 Initial Consult Date 06/07/16 Type of Consultation: Pulmonary Referring Provider: HOLLI LINDER MD Exam/Review of Systems Vital Signs Vitals Vital Signs Date Time Temp Pulse Resp B/P Pulse Ox O2 Delivery O2 Flow Rate FiO2 07/16/16 12:06 98.7 87 22 158/73 99 07/16/16 09:00 30 Intake and Output 07/15/16 07/15/16 07/16/16 15:00 23:00 07:00 Intake Total 1130 ml 747 ml Output Total 2200 ml 1150 ml Balance -1070 ml -403 ml Exam Constitutional: non-verbal Neck: other (Trach on Vent) Respiratory: other (Mechanical braeth sounds heard bilaterally) Cardiovascular: regular rate and rhythm Gastrointestinal: nl liver, spleen, non-tender, soft Extremities: normal pulses Results Result Diagram: 07/16/16 0540 07/16/16 0540 Results 24 hrs Laboratory Tests Test 07/15/16 22:02 07/16/16 05:40 Bedside Glucose 91 White Blood Count 17.6 #H Red Blood Count 2.86 L Hemoglobin 8.2 L Hematocrit 27.8 L Mean Corpuscular Volume 97.2 Mean Corpuscular Hemoglobin 28.7 L Mean Corpuscular Hemoglobin Concent 29.5 L Red Cell Distribution Width 18.8 H Platelet Count 256 # Mean Platelet Volume 11.3 H Neutrophils % 75.0 Lymphocytes % 15.0 Monocytes % 5.0 Eosinophils % 1.0 Basophils % Metamyelocytes % 4.0 H Nucleated Red Blood Cells % Neutrophils # 13.2 H Lymphocytes # 2.6 Monocytes # 0.9 Eosinophils # 0.2 Basophils # Metamyelocytes # 0.7 Nucleated Red Blood Cells # Differential Comment MANUAL DIFF Large Platelets OCCASIONAL Giant Platelets RARE Sodium Level 142 Potassium Level 4.8 Chloride Level 108 Carbon Dioxide Level 31 Anion Gap 8 Blood Urea Nitrogen 37 H Creatinine 0.73 Glucose Level 110 Calcium Level 7.9 L Medications Medications Current Medications Naloxone HCl (Narcan) 0.4 mg Q3M PRN IV DECREASED REPIRATORY RATE; Start at 10:30 Ondansetron HCl (Zofran Inj) 4 mg Q6H PRN IV NAUSEA AND/OR VOMITING; Start 01/12 at 10:30 Nitroglycerin (Nitroglycerin (Sl Tab) 0.4 Mg) 1 tab Q5M PRN SL CHEST PAIN; Start 06/06/16 at 10:30 Acetaminophen (Tylenol Liquid) 650 mg Q6H PRN PO PAIN LEVEL 1-3 OR FEVER Last administered on 07/15/16 12:28; Admin Dose 650 MG; Start 06/06/16 at 10:30 Morphine Sulfate (morphine) 2 mg Q4H PRN IV PAIN LEVEL 7-10 Last administered on 06/15/16 00:22; Admin Dose 2 MG; Start 06/06/16 at 10:30 Docusate Sodium (Colace) 100 mg Q12H PRN PO CONSTIPATION; Start 06/06/16 at 10: 30 Magnesium Hydroxide (Milk Of Mag) 30 ml DAILY PRN PO CONSTIPATION; Start at 10:30 Bisacodyl (Dulcolax) 5 mg DAILY PRN PO CONSTIPATION; Start 06/06/16 at 10:30 Collagenase (Santyl) 1 applic DAILY TOP Last administered on 07/16/16 09:34; Admin Dose 1 APPLIC; Start 06/07/16 at 09:00 Collagenase (Santyl) 1 applic PRN PRN TOP WOUND CARE Last administered on 16:57; Admin Dose 1 APPLIC; Start 06/06/16 at 16:00 IV Flush (NS 10 ml) 10 ml PRN PRN IV IV PROTOCOL; Start 06/06/16 at 18:30 Ascorbic Acid (Vitamin C) 500 mg DAILY GTB Last administered on 07/16/16 09:32 ; Admin Dose 500 MG; Start 06/07/16 at 09:00 Aspirin (Aspirin) 325 mg DAILY GTB Last administered on 07/16/16 09:34; Admin Dose 325 MG; Start 06/07/16 at 09:00 Multivitamins (Thera-Plus) 5 ml DAILY GTB Last administered on 07/16/16 09:35 ; Admin Dose 5 ML; Start 06/07/16 at 09:00 Tamsulosin HCl (Flomax) 0.4 mg HS PO Last administered on 07/15/16 22:30; Admin Dose 0.4 MG; Start 06/07/16 at 21:00 Mupirocin (Bactroban) 1 applic BID TOP Last administered on 07/16/16 09:34; Admin Dose 1 APPLIC; Start 06/07/16 at 21:00 Metoclopramide HCl (Reglan) 10 mg Q6H PRN IV NAUSEA AND/OR VOMITING Last administered on 06/08/16 18:00; Admin Dose 10 MG; Start 06/08/16 at 09:30 Lorazepam (Ativan) 1 mg Q6H PRN IV AGITATION/ANXIETY Last administered on 23:15; Admin Dose 1 MG; Start 06/09/16 at 13:30 Citric Acid/ Sodium Citrate (Bicitra) 30 ml BID PO Last administered on 09:35; Admin Dose 30 ML; Start 06/26/16 at 21:00 Potassium Chloride (Potassium Chloride Pwd/Soln) 40 meq DAILY GTB Last administered on 07/16/16 09:35; Admin Dose 40 MEQ; Start 06/30/16 at 10:30 Atenolol (Tenormin) 12.5 mg BID PO Last administered on 07/16/16 09:33; Admin Dose 12.5 MG; Start 06/30/16 at 23:00 Diagnostic Test (Pha) (Accu-Chek) 1 ea Q12 XX Last administered on 07/16/16 09 :36; Admin Dose 1 EA; Start 07/05/16 at 09:00 Lansoprazole (Prevacid) 30 mg DAILY@06 GTB Last administered on 07/16/16 06:03 ; Admin Dose 30 MG; Start 07/06/16 at 06:00 Furosemide (Lasix) 20 mg DAILY IV Last administered on 07/16/16 09:36; Admin Dose 20 MG; Start 07/07/16 at 09:00 Calcium Carbonate (Tums) 1,000 mg BID PO Last administered on 07/16/16 09:32; Admin Dose 1,000 MG; Start 07/06/16 at 21:00 Cholecalciferol (Vitamin D) 800 units DAILY PO Last administered on 07/16/16 09:34; Admin Dose 800 UNITS; Start 07/07/16 at 09:00 Midodrine 5 mg 5 mg TID@,,17 GTB Last administered on 07/15/16 17:19; Admin Dose 5 MG; Start 07/07/16 at 17:00 Meropenem (Merrem 500 Mg/ 100 ml (Pmx)) 100 ml @ 200 mls/hr Q8 IVPB Last administered on 07/16/16 06:03; Admin Dose 200 MLS/HR; Start 07/11/16 at 14:00 Linezolid (Zyvox) 600 mg BID PO Last administered on 07/16/16 09:32; Admin Dose 600 MG; Start 07/12/16 at 12:00 CHRISTIAN FERMIN M.D. July 16, 2016 12:23
--- NOTE | 2016-07-16 14:10 | CONS ---
Date/Time of Note Date/Time of Note DATE: 07/16/16 TIME: 14:09 Assessment/Plan Assessment/Plan Chief Complaint/Hosp Course ID PROGRESS NOTE TOTAL ABX DAY => [place] INH, Zyvox, Merrem 24H INTERVAL SUMMARY * No new issues => WBC slightly down today, no fevers, 86 yo w/Dementia, encephalopathy, noncommunicative, trach->Vent, peg * Pt is on TPN * MICROBIOLOGY: Blood culture on 07/10/2016 negative. Urine culture negative. Sputum: ACBA + KP. Wound cx + Enterococcus/Kleb ESBL/A. baumanii PHYSICAL EXAMINATION: GENERAL: VSS, NADm, no fevers HEENT: Unremarkable, missing teeth NECK: Supple, trach-> Vent CHEST: Equal chest rise bilaterally, without dyspnea on observation HEART: Pulse RRR ABDOMEN: Soft, peg EXTREMITIES: Warm, PICC LUEXT w/TPN SKIN: Warm, dry SKIN: Decubs -- see photos ID ASSESSMENT: 85 yo M admitted with: 1. s/p Sepsis with persistent leukocytosis = RESOLVED * (+)MRSA septicemia w/BCx(+) MRSA on admission * Repeat BCx (-) 2. Perforated viscus, POD # 06/11/16 => CT guided ABD abscess drainage catheter placement * Abdominal fluid culture growing gram-negative rods, Klebsiella, enterococcus species Leuconostoc. * Late posted Cx result ANAEROBIC CULTURE Final Organism 1 BACTEROIDES FRAGILIS * FUNGAL WET MOUNT Final 10% POTASSIUM HYDROXIDE NO FUNGAL ELEMENTS OR HYPHAE SEEN 3. Respiratory failure= chronic VDRF 4. HCAP - suspect aspiration Pneumonia. * Chest x-ray revealed stable small bilateral pleural effusions with increased CHF. 5. Dysphagia. 6. Enterococcal urinary tract infection. 7. Candidiasis oral, skin folds INVASIVES: * Trach, PEG, FC, Intra-ABD drain, PICC LUEXT ABX ALLERGIES: KNDA CURRENT ABX: Colistin INH, Zyvox, Merrem ID RECOMMENDATIONS: 1. Continue current ABX => continue until re-evaluation & further recs by ID colleagues Sunday . . . Problems: Consultation Date/Type/Reason Admit Date/Time Jun 06, 2016 at 08:08 Initial Consult Date 06/07/16 Type of Consultation: ID Referring Provider: HOLLI LINDER MD Exam/Review of Systems Vital Signs Vitals Vital Signs Date Time Temp Pulse Resp B/P Pulse Ox O2 Delivery O2 Flow Rate FiO2 07/16/16 12:56 30 07/16/16 12:16 83 07/16/16 12:06 98.7 22 158/73 99 Intake and Output 07/15/16 07/15/16 07/16/16 15:00 23:00 07:00 Intake Total 1130 ml 747 ml Output Total 2200 ml 1150 ml Balance -1070 ml -403 ml Results Result Diagram: 07/16/16 0540 07/16/16 0540 Results 24 hrs Laboratory Tests Test 07/15/16 22:02 07/16/16 05:40 07/16/16 12:25 Bedside Glucose 91 126 White Blood Count 17.6 #H Red Blood Count 2.86 L Hemoglobin 8.2 L Hematocrit 27.8 L Mean Corpuscular Volume 97.2 Mean Corpuscular Hemoglobin 28.7 L Mean Corpuscular Hemoglobin Concent 29.5 L Red Cell Distribution Width 18.8 H Platelet Count 256 # Mean Platelet Volume 11.3 H Neutrophils % 75.0 Lymphocytes % 15.0 Monocytes % 5.0 Eosinophils % 1.0 Basophils % Metamyelocytes % 4.0 H Nucleated Red Blood Cells % Neutrophils # 13.2 H Lymphocytes # 2.6 Monocytes # 0.9 Eosinophils # 0.2 Basophils # Metamyelocytes # 0.7 Nucleated Red Blood Cells # Differential Comment MANUAL DIFF Large Platelets OCCASIONAL Giant Platelets RARE Sodium Level 142 Potassium Level 4.8 Chloride Level 108 Carbon Dioxide Level 31 Anion Gap 8 Blood Urea Nitrogen 37 H Creatinine 0.73 Glucose Level 110 Calcium Level 7.9 L Medications Medications Current Medications Naloxone HCl (Narcan) 0.4 mg Q3M PRN IV DECREASED REPIRATORY RATE; Start at 10:30 Ondansetron HCl (Zofran Inj) 4 mg Q6H PRN IV NAUSEA AND/OR VOMITING; Start 01/12 at 10:30 Nitroglycerin (Nitroglycerin (Sl Tab) 0.4 Mg) 1 tab Q5M PRN SL CHEST PAIN; Start 06/06/16 at 10:30 Acetaminophen (Tylenol Liquid) 650 mg Q6H PRN PO PAIN LEVEL 1-3 OR FEVER Last administered on 07/15/16t 12:28; Admin Dose 650 MG; Start 06/06/16 at 10:30 Morphine Sulfate (morphine) 2 mg Q4H PRN IV PAIN LEVEL 7-10 Last administered on 06/15/16 00:22; Admin Dose 2 MG; Start 06/06/16 at 10:30 Docusate Sodium (Colace) 100 mg Q12H PRN PO CONSTIPATION; Start 06/06/16 at 10: 30 Magnesium Hydroxide (Milk Of Mag) 30 ml DAILY PRN PO CONSTIPATION; Start at 10:30 Bisacodyl (Dulcolax) 5 mg DAILY PRN PO CONSTIPATION; Start 06/06/16 at 10:30 Collagenase (Santyl) 1 applic DAILY TOP Last administered on 07/16/16 09:34; Admin Dose 1 APPLIC; Start 06/07/16 at 09:00 Collagenase (Santyl) 1 applic PRN PRN TOP WOUND CARE Last administered on 16:57; Admin Dose 1 APPLIC; Start 06/06/16 at 16:00 IV Flush (NS 10 ml) 10 ml PRN PRN IV IV PROTOCOL; Start 06/06/16 at 18:30 Ascorbic Acid (Vitamin C) 500 mg DAILY GTB Last administered on 07/16/16 09:32 ; Admin Dose 500 MG; Start 06/07/16 at 09:00 Aspirin (Aspirin) 325 mg DAILY GTB Last administered on 07/16/16 09:34; Admin Dose 325 MG; Start 06/07/16 at 09:00 Multivitamins (Thera-Plus) 5 ml DAILY GTB Last administered on 07/16/16 09:35 ; Admin Dose 5 ML; Start 06/07/16 at 09:00 Tamsulosin HCl (Flomax) 0.4 mg HS PO Last administered on 07/15/16 22:30; Admin Dose 0.4 MG; Start 06/07/16 at 21:00 Mupirocin (Bactroban) 1 applic BID TOP Last administered on 07/16/16 09:34; Admin Dose 1 APPLIC; Start 06/07/16 at 21:00 Metoclopramide HCl (Reglan) 10 mg Q6H PRN IV NAUSEA AND/OR VOMITING Last administered on 06/08/16 18:00; Admin Dose 10 MG; Start 06/08/16 at 09:30 Lorazepam (Ativan) 1 mg Q6H PRN IV AGITATION/ANXIETY Last administered on 23:15; Admin Dose 1 MG; Start 06/09/16 at 13:30 Citric Acid/ Sodium Citrate (Bicitra) 30 ml BID PO Last administered on 09:35; Admin Dose 30 ML; Start 06/26/16 at 21:00 Potassium Chloride (Potassium Chloride Pwd/Soln) 40 meq DAILY GTB Last administered on 07/16/16 09:35; Admin Dose 40 MEQ; Start 06/30/16 at 10:30 Atenolol (Tenormin) 12.5 mg BID PO Last administered on 07/16/16 09:33; Admin Dose 12.5 MG; Start 06/30/16 at 23:00 Diagnostic Test (Pha) (Accu-Chek) 1 ea Q12 XX Last administered on 07/16/16 09 :36; Admin Dose 1 EA; Start 07/05/16 at 09:00 Lansoprazole (Prevacid) 30 mg DAILY@06 GTB Last administered on 07/16/16 06:03 ; Admin Dose 30 MG; Start 07/06/16 at 06:00 Furosemide (Lasix) 20 mg DAILY IV Last administered on 07/16/16 09:36; Admin Dose 20 MG; Start 07/07/16 at 09:00 Calcium Carbonate (Tums) 1,000 mg BID PO Last administered on 07/16/16 09:32; Admin Dose 1,000 MG; Start 07/06/16 at 21:00 Cholecalciferol (Vitamin D) 800 units DAILY PO Last administered on 07/16/16 09:34; Admin Dose 800 UNITS; Start 07/07/16 at 09:00 Midodrine 5 mg 5 mg TID@,,17 GTB Last administered on 07/15/16 17:19; Admin Dose 5 MG; Start 07/07/16 at 17:00 Meropenem (Merrem 500 Mg/ 100 ml (Pmx)) 100 ml @ 200 mls/hr Q8 IVPB Last administered on 07/16/16 06:03; Admin Dose 200 MLS/HR; Start 07/11/16 at 14:00 Linezolid (Zyvox) 600 mg BID PO Last administered on 07/16/16 09:32; Admin Dose 600 MG; Start 07/12/16 at 12:00 LINDSAY LAGUNAS NP July 16, 2016 14:10
--- NOTE | 2016-07-16 16:37 | PN ---
Date/Time of Note Date/Time of Note DATE: 07/16/16 TIME: 16:35 Assessment/Plan VTE Prophylaxis VTE Prophylaxis Intervention: other Lines/Catheters IV Catheter Type (from Nrs): Peripheral IV Urinary Cath still in place: Yes Reason Cath still needed: other (indicate) Assessment/Plan Chief Complaint/Hosp Course IMPRESSION: 1. Sepsis 2. Pneumonia. aspiration 3. Leukocytosis. sacral decubitus 4. Hematuria. better 5. Lactic acidosis. better 6. Respiratory failure. 7. Gastrostomy tube placement. 8. Anemia. 9. Atrial fibrillation. 10. History of congestive heart failure with decreased ejection fraction. 11. vdrf 12. History of paroxysmal atrial fibrillation. 13. The patient now has decubitus. 14 uti 15 polymirobial sepsis 16 pul edema BETTER 17 no gi bleed 18 hypokalemia better 19 diarrhea cdiff neg 20 HYPOCALCEMEIA 21 WBC SCAN SEEN plan per id iv fluid poor prognosis ck labs weaning per pulmonary and cardio POSS SUB ACUTE surgery consult GT FEEDING per iD bicitra snf when stable poor prognosis lytes replacement prn Problems: Subjective 24 Hr Interval Summary Subjective hx not possible: other (AWAKE NO DISTRESS) Exam/Review of Systems Vital Signs Vitals Vital Signs Date Time Temp Pulse Resp B/P Pulse Ox O2 Delivery O2 Flow Rate FiO2 07/16/16 16:29 97.0 87 22 149/66 99 07/16/16 15:00 30 Intake and Output 07/15/16 07/15/16 07/16/16 15:00 23:00 07:00 Intake Total 1130 ml 747 ml Output Total 2200 ml 1150 ml Balance -1070 ml -403 ml Exam Neck: supple Respiratory: clear to auscultation Cardiovascular: regular rate and rhythm Gastrointestinal: soft Musculoskeletal: nl extremities to inspection Results Result Diagram: 07/16/16 0540 07/16/16 0540 Results 24 hrs Laboratory Tests Test 07/15/16 22:02 07/16/16 05:40 07/16/16 12:25 Bedside Glucose 91 126 White Blood Count 17.6 #H Red Blood Count 2.86 L Hemoglobin 8.2 L Hematocrit 27.8 L Mean Corpuscular Volume 97.2 Mean Corpuscular Hemoglobin 28.7 L Mean Corpuscular Hemoglobin Concent 29.5 L Red Cell Distribution Width 18.8 H Platelet Count 256 # Mean Platelet Volume 11.3 H Neutrophils % 75.0 Lymphocytes % 15.0 Monocytes % 5.0 Eosinophils % 1.0 Basophils % Metamyelocytes % 4.0 H Nucleated Red Blood Cells % Neutrophils # 13.2 H Lymphocytes # 2.6 Monocytes # 0.9 Eosinophils # 0.2 Basophils # Metamyelocytes # 0.7 Nucleated Red Blood Cells # Differential Comment MANUAL DIFF Large Platelets OCCASIONAL Giant Platelets RARE Sodium Level 142 Potassium Level 4.8 Chloride Level 108 Carbon Dioxide Level 31 Anion Gap 8 Blood Urea Nitrogen 37 H Creatinine 0.73 Glucose Level 110 Calcium Level 7.9 L Medications Medications Current Medications Naloxone HCl (Narcan) 0.4 mg Q3M PRN IV DECREASED REPIRATORY RATE; Start at 10:30 Ondansetron HCl (Zofran Inj) 4 mg Q6H PRN IV NAUSEA AND/OR VOMITING; Start 01/12 at 10:30 Nitroglycerin (Nitroglycerin (Sl Tab) 0.4 Mg) 1 tab Q5M PRN SL CHEST PAIN; Start 06/06/16 at 10:30 Acetaminophen (Tylenol Liquid) 650 mg Q6H PRN PO PAIN LEVEL 1-3 OR FEVER Last administered on 07/15/16 12:28; Admin Dose 650 MG; Start 06/06/16 at 10:30 Morphine Sulfate (morphine) 2 mg Q4H PRN IV PAIN LEVEL 7-10 Last administered on 06/15/16 00:22; Admin Dose 2 MG; Start 06/06/16 at 10:30 Docusate Sodium (Colace) 100 mg Q12H PRN PO CONSTIPATION; Start 06/06/16 at 10: 30 Magnesium Hydroxide (Milk Of Mag) 30 ml DAILY PRN PO CONSTIPATION; Start at 10:30 Bisacodyl (Dulcolax) 5 mg DAILY PRN PO CONSTIPATION; Start 06/06/16 at 10:30 Collagenase (Santyl) 1 applic DAILY TOP Last administered on 07/16/16 09:34; Admin Dose 1 APPLIC; Start 06/07/16 at 09:00 Collagenase (Santyl) 1 applic PRN PRN TOP WOUND CARE Last administered on 16:57; Admin Dose 1 APPLIC; Start 06/06/16 at 16:00 IV Flush (NS 10 ml) 10 ml PRN PRN IV IV PROTOCOL; Start 06/06/16 at 18:30 Ascorbic Acid (Vitamin C) 500 mg DAILY GTB Last administered on 07/16/16 09:32 ; Admin Dose 500 MG; Start 06/07/16 at 09:00 Aspirin (Aspirin) 325 mg DAILY GTB Last administered on 07/16/16 09:34; Admin Dose 325 MG; Start 06/07/16 at 09:00 Multivitamins (Thera-Plus) 5 ml DAILY GTB Last administered on 07/16/16 09:35 ; Admin Dose 5 ML; Start 06/07/16 at 09:00 Tamsulosin HCl (Flomax) 0.4 mg HS PO Last administered on 07/15/16 22:30; Admin Dose 0.4 MG; Start 06/07/16 at 21:00 Mupirocin (Bactroban) 1 applic BID TOP Last administered on 07/16/16 09:34; Admin Dose 1 APPLIC; Start 06/07/16 at 21:00 Metoclopramide HCl (Reglan) 10 mg Q6H PRN IV NAUSEA AND/OR VOMITING Last administered on 06/08/16 18:00; Admin Dose 10 MG; Start 06/08/16 at 09:30 Lorazepam (Ativan) 1 mg Q6H PRN IV AGITATION/ANXIETY Last administered on 23:15; Admin Dose 1 MG; Start 06/09/16 at 13:30 Citric Acid/ Sodium Citrate (Bicitra) 30 ml BID PO Last administered on 09:35; Admin Dose 30 ML; Start 06/26/16 at 21:00 Potassium Chloride (Potassium Chloride Pwd/Soln) 40 meq DAILY GTB Last administered on 07/16/16 09:35; Admin Dose 40 MEQ; Start 06/30/16 at 10:30 Atenolol (Tenormin) 12.5 mg BID PO Last administered on 07/16/16 09:33; Admin Dose 12.5 MG; Start 06/30/16 at 23:00 Diagnostic Test (Pha) (Accu-Chek) 1 ea Q12 XX Last administered on 07/16/16 09 :36; Admin Dose 1 EA; Start 07/05/16 at 09:00 Lansoprazole (Prevacid) 30 mg DAILY@06 GTB Last administered on 07/16/16 06:03 ; Admin Dose 30 MG; Start 07/06/16 at 06:00 Furosemide (Lasix) 20 mg DAILY IV Last administered on 07/16/16 09:36; Admin Dose 20 MG; Start 07/07/16 at 09:00 Calcium Carbonate (Tums) 1,000 mg BID PO Last administered on 07/16/16 09:32; Admin Dose 1,000 MG; Start 07/06/16 at 21:00 Cholecalciferol (Vitamin D) 800 units DAILY PO Last administered on 07/16/16 09:34; Admin Dose 800 UNITS; Start 07/07/16 at 09:00 Midodrine 5 mg 5 mg TID@,17 GTB Last administered on 07/15/16 17:19; Admin Dose 5 MG; Start 07/07/16 at 17:00 Meropenem (Merrem 500 Mg/ 100 ml (Pmx)) 100 ml @ 200 mls/hr Q8 IVPB Last administered on 07/16/16 14:28; Admin Dose 200 MLS/HR; Start 07/11/16 at 14:00 Linezolid (Zyvox) 600 mg BID PO Last administered on 07/16/16 09:32; Admin Dose 600 MG; Start 07/12/16 at 12:00 HOLLI LINDER MD July 16, 2016 16:37
[2016-07-16] MEDS: TAMSULOSIN (SR) 0.4 MG CAP PO SCH (21:58)
[2016-07-17] VITALS (24 sets, daily range): BP systolic 93–131; BP diastolic 58–68; PULSE 65–100; RESP 11–35
--- NOTE | 2016-07-17 00:56 | PN ---
Date/Time of Note Date/Time of Note DATE: 07/15/16 TIME: 22:56 Assessment/Plan Lines/Catheters IV Catheter Type (from [facility]): Peripheral IV Alfonso in Place (from [facility]): Yes Assessment/Plan Chief Complaint/Hosp Course 1. Contained perforated viscous s/p IR drain 06/11. Cx noted. Leukocytosis resolved. Tube feeds. Bowel function. Drain dcd. s/p Abx. Persistent leukocytosis. Chemical code. -defer further w/u to primary team 2. Pneumonia -pulmonary toilette -abx 3. Sepsis, recent. Leukocytosis -abx -as above 4. Sacral decubitus ulcer -off load -nutrition optimization -vit c -local care 5. Chronic AFib -rate control -optimize electrolytes -tx infections 6. Anemia -tx prn 7. Hypoalbuminemia -eventual nutritional optimization 8. CHF -judicious fluid management -cardiac optimization Thank you, Late entry 07/15 Problems: Subjective 24 Hr Interval Summary Leukocytosis. No f/c. No cough. No sz. No rashes. No bloating. No vomiting. No bleeding. Exam/Review of Systems Vital Signs Vitals Vital Signs Date Time Temp Pulse Resp B/P Pulse Ox O2 Delivery O2 Flow Rate FiO2 07/17/16 00:07 97.9 78 20 93/58 98 07/16/16 23:32 30 Intake and Output 07/16/16 07/16/16 07/17/16 15:00 23:00 07:00 Intake Total 100 ml 1130 ml Output Total 2600 ml Balance 100 ml -1470 ml Exam Free Text/Dictation Constitutional: No distress, No oriented Psych: confusion, No anxiety Head: atraumatic, normocephalic Eyes: PERRL, nl conjunctiva, No icteric ENMT: mucosa pink and moist, nl external ears & nose, nl lips & teeth Neck: jvd (min), non-tender Respiratory: No congested cough, No labored breathing Cardiovascular: No edema, No regular rate and rhythm Gastrointestinal: soft, PEGNo distended, No firm, No rebound or guarding Musculoskeletal: No joint tenderness, No nl gait and stance Extremities: No calf tenderness, No cyanosis Neurological: No nl mental status, No nl speech, No nl strength Skin: nl turgor, rash or lesions (Sacral and LE decubitus ulcerations), No diaphoresis Lymph: nl lymph nodes Results Result Diagram: 07/16/16 0540 07/16/16 0540 DAREK AHMADI MD July 17, 2016 00:56
--- NOTE | 2016-07-17 00:57 | PN ---
Date/Time of Note Date/Time of Note DATE: 07/16/16 TIME: 17:56 Assessment/Plan Lines/Catheters IV Catheter Type (from [facility]): Peripheral IV Alfonso in Place (from [facility]): Yes Assessment/Plan Chief Complaint/Hosp Course 1. Contained perforated viscous s/p IR drain 06/11. Cx noted. Leukocytosis resolved. Tube feeds. Bowel function. Drain dcd. s/p Abx. Persistent leukocytosis. Chemical code. 2. Pneumonia -pulmonary toilette -abx 3. Sepsis, recent. Leukocytosis -abx -as above 4. Sacral decubitus ulcer -off load -nutrition optimization -vit c -local care 5. Chronic AFib -rate control -optimize electrolytes -tx infections 6. Anemia -tx prn 7. Hypoalbuminemia -eventual nutritional optimization 8. CHF -judicious fluid management -cardiac optimization Thank you, Late entry 07/16 Problems: Subjective 24 Hr Interval Summary Leukocytosis. No f/c. No cough. No sz. No rashes. No bloating. No vomiting. No bleeding. Exam/Review of Systems Vital Signs Vitals Vital Signs Date Time Temp Pulse Resp B/P Pulse Ox O2 Delivery O2 Flow Rate FiO2 07/17/16 00:07 97.9 78 20 93/58 98 07/16/16 23:32 30 Intake and Output 07/16/16 07/16/16 07/17/16 15:00 23:00 07:00 Intake Total 100 ml 1130 ml Output Total 2600 ml Balance 100 ml -1470 ml Exam Free Text/Dictation Constitutional: No distress, No oriented Psych: confusion, No anxiety Head: atraumatic, normocephalic Eyes: PERRL, nl conjunctiva, No icteric ENMT: mucosa pink and moist, nl external ears & nose, nl lips & teeth Neck: jvd (min), non-tender Respiratory: No congested cough, No labored breathing Cardiovascular: No edema, No regular rate and rhythm Gastrointestinal: soft, PEGNo distended, No firm, No rebound or guarding Musculoskeletal: No joint tenderness, No nl gait and stance Extremities: No calf tenderness, No cyanosis Neurological: No nl mental status, No nl speech, No nl strength Skin: nl turgor, rash or lesions (Sacral and LE decubitus ulcerations), No diaphoresis Lymph: nl lymph nodes Results Result Diagram: 5/21/17 0540 07/16/16 0540 DAREK AHMADI MD July 17, 2016 00:57
[2016-07-17] MEDS: ALBUTEROL 18 GM INHALER INH SCH ×6 (01:55→20:54)
[2016-07-17] MEDS: IPRATROPIUM (HFA) 12.9 GM INHALER INH SCH ×6 (01:55→20:54)
[2016-07-17] MEDS: LANSOPRAZOLE 30 MG CAP GTB SCH (05:52)
[2016-07-17] MEDS: MEROPENEM 500 MG/100 ML (PMX) 100 ML IVPB SCH ×3 (05:52→21:25)
[2016-07-17] MEDS: COLLAGENASE 30 GM TUBE TOP PRN (05:56)
[2016-07-17] MEDS: COLLAGENASE 30 GM TUBE TOP SCH (08:49)
[2016-07-17] MEDS: MULTIVITAMINS 5 ML CUP GTB SCH (08:50)
[2016-07-17] MEDS: CITRIC ACID/SODIUM CITRATE 15 ML CUP PO SCH ×2 (08:50→20:51)
[2016-07-17] MEDS: ASCORBIC ACID 500 MG TAB GTB SCH (08:50)
[2016-07-17] MEDS: POTASSIUM CHLORIDE 20 MEQ POWDER FOR ORAL SOLN GTB SCH (08:50)
[2016-07-17] MEDS: CALCIUM CARBONATE 500 MG CHEW TAB PO SCH ×2 (08:51→20:03)
[2016-07-17] MEDS: ZYVOX 600 MG TAB PO SCH ×2 (08:51→20:03)
[2016-07-17] MEDS: ASPIRIN 325 MG TAB GTB SCH (08:51)
[2016-07-17] MEDS: CHOLECALCIFEROL 400 UNITS TAB PO SCH (08:51)
[2016-07-17] MEDS: ATENOLOL 25 MG TAB PO SCH ×2 (08:51→20:04)
[2016-07-17] MEDS: MUPIROCIN 2% 22 GM OINT TOP SCH ×2 (08:52→21:26)
[2016-07-17] MEDS: FUROSEMIDE 20 MG INJ IV SCH (08:52)
[2016-07-17] MEDS: MIDODRINE 5 MG TAB GTB SCH ×3 (08:52→17:00)
[2016-07-17] MEDS: ACCU-CHEK XX SCH ×2 (09:00→20:05)
[2016-07-17] MEDS: COLISTIMETHATE (25 MG/ML INHAL SYG) NEB SCH ×2 (09:07→19:24)
--- NOTE | 2016-07-17 10:58 | PN ---
Date/Time of Note Date/Time of Note DATE: 07/17/16 TIME: 10:57 Assessment/Plan Lines/Catheters IV Catheter Type (from [facility]): Peripheral IV Alfonso in Place (from [facility]): Yes Assessment/Plan Chief Complaint/Hosp Course 1. Contained perforated viscous s/p IR drain 06/11. Cx noted. Leukocytosis resolved. Tube feeds. Bowel function. Drain dcd. s/p Abx. Persistent leukocytosis. Chemical code. 2. Pneumonia -pulmonary toilette -abx 3. Sepsis, recent. Leukocytosis -abx -as above 4. Sacral decubitus ulcer -off load -nutrition optimization -vit c -local care 5. Chronic AFib -rate control -optimize electrolytes -tx infections 6. Anemia -tx prn 7. Hypoalbuminemia -eventual nutritional optimization 8. CHF -judicious fluid management -cardiac optimization Thank you, Problems: Subjective 24 Hr Interval Summary Leukocytosis improving. No f/c. No cough. No sz. No rashes. No bloating. No vomiting. No bleeding. Exam/Review of Systems Vital Signs Vitals Vital Signs Date Time Temp Pulse Resp B/P Pulse Ox O2 Delivery O2 Flow Rate FiO2 07/17/16 09:11 72 23 98 30 07/17/16 07:57 98.7 121/68 Intake and Output 07/16/16 07/16/16 07/17/16 15:00 23:00 07:00 Intake Total 100 ml 1230 ml 961 ml Output Total 2600 ml 1300 ml Balance 100 ml -1370 ml -339 ml Exam Free Text/Dictation Constitutional: No distress, No oriented Psych: confusion, No anxiety Head: atraumatic, normocephalic Eyes: PERRL, nl conjunctiva, No icteric ENMT: mucosa pink and moist, nl external ears & nose, nl lips & teeth Neck: jvd (min), non-tender Respiratory: No congested cough, No labored breathing Cardiovascular: No edema, No regular rate and rhythm Gastrointestinal: soft, PEGNo distended, No firm, No rebound or guarding Musculoskeletal: No joint tenderness, No nl gait and stance Extremities: No calf tenderness, No cyanosis Neurological: No nl mental status, No nl speech, No nl strength Skin: nl turgor, rash or lesions (Sacral and LE decubitus ulcerations), No diaphoresis Lymph: nl lymph nodes Results Result Diagram: 07/16/16 0540 07/16/16 0540 DAREK AHMADI MD July 17, 2016 10:58
--- NOTE | 2016-07-17 11:17 | CONS ---
Date/Time of Note Date/Time of Note DATE: 07/17/16 TIME: 11:15 Consult Date/Type/Reason Admit Date/Time Jun 06, 2016 at 08:08 Initial Consult Date 06/07/16 Type of Consultation: Pulmonary Ordering Provider: HOLLI LINDER MD Subjective Patient remains somnolent on mechanical ventilation Objective Vital Signs Date Time Temp Pulse Resp B/P Pulse Ox O2 Delivery O2 Flow Rate FiO2 07/17/16 10:59 98.4 88 35 122/67 95 07/17/16 09:11 30 Intake and Output 07/16/16 07/16/16 07/17/16 15:00 23:00 07:00 Intake Total 100 ml 1230 ml 961 ml Output Total 2600 ml 1300 ml Balance 100 ml -1370 ml -339 ml Exam PHYSICAL EXAMINATION GENERAL: Elderly gentleman on mechanical ventilation, VITAL SIGNS: see below. HEENT: Pupils equal, round, and reactive to light. Tracheostomy site clean and intact. CARDIAC: S1, S2, 1/6 systolic ejection murmur CHEST: Diminished air entry bilaterally. ABDOMEN: Mildly distended. Bowel sounds present no guarding or rebound EXTREMITIES: No cyanosis, clubbing edema +1 NEUROLOGIC: Generalized weakness Results/Medications Result Diagram: 07/16/16 0540 07/16/16 0540 Results 24 hrs Laboratory Tests Test 07/16/16 12:25 07/16/16 22:01 07/17/16 09:27 Bedside Glucose 126 128 108 Medications Current Medications Naloxone HCl (Narcan) 0.4 mg Q3M PRN IV DECREASED REPIRATORY RATE; Start at 10:30 Ondansetron HCl (Zofran Inj) 4 mg Q6H PRN IV NAUSEA AND/OR VOMITING; Start 01/12 at 10:30 Nitroglycerin (Nitroglycerin (Sl Tab) 0.4 Mg) 1 tab Q5M PRN SL CHEST PAIN; Start 06/06/16 at 10:30 Acetaminophen (Tylenol Liquid) 650 mg Q6H PRN PO PAIN LEVEL 1-3 OR FEVER Last administered on 07/15/16 12:28; Admin Dose 650 MG; Start 06/06/16 at 10:30 Morphine Sulfate (morphine) 2 mg Q4H PRN IV PAIN LEVEL 7-10 Last administered on 06/15/16 00:22; Admin Dose 2 MG; Start 06/06/16 at 10:30 Docusate Sodium (Colace) 100 mg Q12H PRN PO CONSTIPATION; Start 06/06/16 at 10: 30 Magnesium Hydroxide (Milk Of Mag) 30 ml DAILY PRN PO CONSTIPATION; Start at 10:30 Bisacodyl (Dulcolax) 5 mg DAILY PRN PO CONSTIPATION; Start 06/06/16 at 10:30 Collagenase (Santyl) 1 applic DAILY TOP Last administered on 07/17/16 08:49; Admin Dose 1 APPLIC; Start 06/07/16 at 09:00 Collagenase (Santyl) 1 applic PRN PRN TOP WOUND CARE Last administered on 05:56; Admin Dose 1 APPLIC; Start 06/06/16 at 16:00 IV Flush (NS 10 ml) 10 ml PRN PRN IV IV PROTOCOL; Start 06/06/16 at 18:30 Ascorbic Acid (Vitamin C) 500 mg DAILY GTB Last administered on 07/17/16 08:50 ; Admin Dose 500 MG; Start 06/07/16 at 09:00 Aspirin (Aspirin) 325 mg DAILY GTB Last administered on 07/17/16 08:51; Admin Dose 325 MG; Start 06/07/16 at 09:00 Multivitamins (Thera-Plus) 5 ml DAILY GTB Last administered on 07/17/16 08:50 ; Admin Dose 5 ML; Start 06/07/16 at 09:00 Tamsulosin HCl (Flomax) 0.4 mg HS PO Last administered on 07/16/16 21:58; Admin Dose 0.4 MG; Start 06/07/16 at 21:00 Mupirocin (Bactroban) 1 applic BID TOP Last administered on 07/17/16 08:52; Admin Dose 1 APPLIC; Start 06/07/16 at 21:00 Metoclopramide HCl (Reglan) 10 mg Q6H PRN IV NAUSEA AND/OR VOMITING Last administered on 06/08/16 18:00; Admin Dose 10 MG; Start 06/08/16 at 09:30 Lorazepam (Ativan) 1 mg Q6H PRN IV AGITATION/ANXIETY Last administered on 23:15; Admin Dose 1 MG; Start 06/09/16 at 13:30 Citric Acid/ Sodium Citrate (Bicitra) 30 ml BID PO Last administered on 08:50; Admin Dose 30 ML; Start 06/26/16 at 21:00 Potassium Chloride (Potassium Chloride Pwd/Soln) 40 meq DAILY GTB Last administered on 07/17/16 08:50; Admin Dose 40 MEQ; Start 06/30/16 at 10:30 Atenolol (Tenormin) 12.5 mg BID PO Last administered on 07/17/16 08:51; Admin Dose 12.5 MG; Start 06/30/16 at 23:00 Diagnostic Test (Pha) (Accu-Chek) 1 ea Q12 XX Last administered on 07/16/16 22 :08; Admin Dose 1 EA; Start 07/05/16 at 09:00 Lansoprazole (Prevacid) 30 mg DAILY@06 GTB Last administered on 07/17/16 05:52 ; Admin Dose 30 MG; Start 07/06/16 at 06:00 Furosemide (Lasix) 20 mg DAILY IV Last administered on 07/17/16 08:52; Admin Dose 20 MG; Start 07/07/16 at 09:00 Calcium Carbonate (Tums) 1,000 mg BID PO Last administered on 07/17/16 08:51; Admin Dose 1,000 MG; Start 07/06/16 at 21:00 Cholecalciferol (Vitamin D) 800 units DAILY PO Last administered on 07/17/16 08:51; Admin Dose 800 UNITS; Start 07/07/16 at 09:00 Midodrine 5 mg 5 mg TID@,,17 GTB Last administered on 07/15/16 17:19; Admin Dose 5 MG; Start 07/07/16 at 17:00 Meropenem (Merrem 500 Mg/ 100 ml (Pmx)) 100 ml @ 200 mls/hr Q8 IVPB Last administered on 07/17/16 05:52; Admin Dose 200 MLS/HR; Start 07/11/16 at 14:00 Linezolid (Zyvox) 600 mg BID PO Last administered on 07/17/16 08:51; Admin Dose 600 MG; Start 07/12/16 at 12:00 Assessment/Plan Chief Complaint/Hosp Course assessment 1. Vent dependent respiratory failure with evidence of healthcare associated pneumonia 2. Status post bowel perforation with drainage, persistent leukocytosis 3. Ongoing sepsis as above 4. Chronic atrial fibrillation 5. Decubitus ulcers 6. Dysphagia with G-tube 7. Chronic encephalopathy Plan 1. Continue mechanical ventilation 2. Continue broad-spectrum antibiotics per infectious diseases 3. Surgical recommendations regarding abdominal drains 4. Palliative care consult appreciated, bioethics meeting notes reviewed. 5. DVT and GI prophylaxis 6. Stable post transfusion Disposition Continue current care Bioethics Problems: KAVON TROY MD, [facility] July 17, 2016 11:17
--- NOTE | 2016-07-17 13:15 | PN ---
DATE: 07/17/2016 SUBJECTIVE: No acute changes. Patient is nonverbal and noncommunicative, lying comfortably in bed. No fevers. LABORATORIES: WBC yesterday decreased to 17.6, BUN yesterday was 37, creatinine 0.73. ANTIMICROBIALS: 1. Merrem. 2. Zyvox. INDWELLINGS: Trach, PEG, Alfonso. PHYSICAL EXAMINATION: GENERAL: This is a cachectic, wasted, chronically ill-appearing, elderly man who is lying comfortab ly in bed. HEENT: Head atraumatic, normocephalic. Sclerae anicteric. Buccal mucosa dry. NECK: Supple. Tracheostomy present. CHEST: Rise symmetrical. Breath sounds diminished to bases. HEART: S1, S2. ABDOMEN: Soft. Bowel tones present. EXTREMITIES: No cyanosis. Bilateral dependent edema. ASSESSMENT: 1. Systemic inflammatory response syndrome with persistent leukocytosis secondary to #2. 2. Unstageable infected sacral wounds, on antibiotics. 3. Chronic respiratory failure. 4. Dysphagia. u 5. Encephalopathy. 6. History of MRSA bacteremia and urinary tract infection. PLAN: The patient remains stable. Continue present care. Local wound care per surgical recommenda tions. Continue on current antimicrobials. The patient is being seen by palliative care and had bi oethi meetings in regards to his plan of care. Dictated By: JOSE G CUNNINGHAM [employer]IVER for RASHIDA HUSSEIN/TRACY Conf#: [id number] DID#: [id number]
--- NOTE | 2016-07-17 16:43 | PN ---
DATE: 07/17/2016 PALLIATIVE CARE PROGRESS NOTE Please refer to my prior note for bioethics meeting to be scheduled this week. I will remain in con tact with family members up until that time. Will invite members of the patient's primary care team to participate also and answered all their questions that son has requested. Dictated By: HENRY GUPTA MD, LP/TRACY Conf#: [id number] DID#: [id number]
--- NOTE | 2016-07-17 19:05 | CONS ---
Date/Time of Note Date/Time of Note DATE: 07/17/16 TIME: 19:03 Assessment/Plan Assessment/Plan Chief Complaint/Hosp Course IMp: 1.CHF-systolic acute on chonic-reasonable volume status at this time 2.Resp failure s/p trach on vent 3.Cardiomyopathy-LVEF 25-30% 4.HTN-with recurrent episodes of Hotn on midodrine as necessary with overall improvement 5.PPM-s/p interrogation with proper function-episodes of SVT and short episode VT 06/09/16/good battery life 6.Leukocytosis-persistent 7.Tachycardia-PAF/AFL rate controlled 8.Perforated viscous s/p IR drain now removed with ongoing leukocytosis 9. Renal insuff-? overdiuresis-now improved and back to baseline 10. Wide complex tachy-NSVT today 06/30/16. NO recurrence Recc: -Tele -Continue abx's and f/u cx data and treat fevers -Continue atenolol as tolerated/possible only -Continue asa/low dose lovenox -Continue abx's/f/u cx data -Palliative care following -Now on midodrine BP support as necessary following hold parameters -S/P dose IVP digoxin with improvement in HR control -Continue low dose gentle lasix diuresis and follow volume status closely Problems: Consultation Date/Type/Reason Admit Date/Time Jun 06, 2016 at 08:08 Initial Consult Date 06/07/16 Type of Consultation: Cardiology Reason for Consultation AFL/cardiomyopathy Referring Provider: HOLLI LINDER MD Exam/Review of Systems Vital Signs Vitals Vital Signs Date Time Temp Pulse Resp B/P Pulse Ox O2 Delivery O2 Flow Rate FiO2 07/17/16 17:30 74 28 98 30 07/17/16 14:58 98.0 124/62 Intake and Output 07/16/16 07/16/16 07/17/16 15:00 23:00 07:00 Intake Total 100 ml 1230 ml 961 ml Output Total 2600 ml 1300 ml Balance 100 ml -1370 ml -339 ml Exam Review of Systems: CONSTITUTIONAL: No fevers, chills. PULMONARY: No sob CARDIOVASCULAR: No chest pain/palpitations GASTROINTESTINAL: No nausea/vomiting. GENITOURINARY: No hematuria/dysuria. MUSCULOSKELETAL: No myagias/arthalgias. PSYCHIATRIC: The patient denies depression. NEUROLOGIC: No weakness Constitutional: alert Psych: no complaints Head: normocephalic ENMT: mucosa pink and moist Neck: jvd (9 cm water), supple Respiratory: diminished breath sounds Cardiovascular: regular rate and rhythm Gastrointestinal: non-tender, soft Musculoskeletal: muscle tone (normal) Extremities: edema (none) Neurological: other (No focal deficits) Results Result Diagram: 07/16/16 0540 07/16/16 0540 Results 24 hrs Laboratory Tests Test 07/16/16 22:01 07/17/16 09:27 Bedside Glucose 128 108 Medications Medications Current Medications Naloxone HCl (Narcan) 0.4 mg Q3M PRN IV DECREASED REPIRATORY RATE; Start at 10:30 Ondansetron HCl (Zofran Inj) 4 mg Q6H PRN IV NAUSEA AND/OR VOMITING; Start 01/12 at 10:30 Nitroglycerin (Nitroglycerin (Sl Tab) 0.4 Mg) 1 tab Q5M PRN SL CHEST PAIN; Start 06/06/16 at 10:30 Acetaminophen (Tylenol Liquid) 650 mg Q6H PRN PO PAIN LEVEL 1-3 OR FEVER Last administered on 07/15/16 12:28; Admin Dose 650 MG; Start 06/06/16 at 10:30 Morphine Sulfate (morphine) 2 mg Q4H PRN IV PAIN LEVEL 7-10 Last administered on 06/15/16 00:22; Admin Dose 2 MG; Start 06/06/16 at 10:30 Docusate Sodium (Colace) 100 mg Q12H PRN PO CONSTIPATION; Start 06/06/16 at 10: 30 Magnesium Hydroxide (Milk Of Mag) 30 ml DAILY PRN PO CONSTIPATION; Start at 10:30 Bisacodyl (Dulcolax) 5 mg DAILY PRN PO CONSTIPATION; Start 06/06/16 at 10:30 Collagenase (Santyl) 1 applic DAILY TOP Last administered on 07/17/16 08:49; Admin Dose 1 APPLIC; Start 06/07/16 at 09:00 Collagenase (Santyl) 1 applic PRN PRN TOP WOUND CARE Last administered on 05:56; Admin Dose 1 APPLIC; Start 06/06/16 at 16:00 IV Flush (NS 10 ml) 10 ml PRN PRN IV IV PROTOCOL; Start 06/06/16 at 18:30 Ascorbic Acid (Vitamin C) 500 mg DAILY GTB Last administered on 07/17/16 08:50 ; Admin Dose 500 MG; Start 06/07/16 at 09:00 Aspirin (Aspirin) 325 mg DAILY GTB Last administered on 07/17/16 08:51; Admin Dose 325 MG; Start 06/07/16 at 09:00 Multivitamins (Thera-Plus) 5 ml DAILY GTB Last administered on 07/17/16 08:50 ; Admin Dose 5 ML; Start 06/07/16 at 09:00 Tamsulosin HCl (Flomax) 0.4 mg HS PO Last administered on 07/16/16 21:58; Admin Dose 0.4 MG; Start 06/07/16 at 21:00 Mupirocin (Bactroban) 1 applic BID TOP Last administered on 07/17/16 08:52; Admin Dose 1 APPLIC; Start 06/07/16 at 21:00 Metoclopramide HCl (Reglan) 10 mg Q6H PRN IV NAUSEA AND/OR VOMITING Last administered on 06/08/16 18:00; Admin Dose 10 MG; Start 06/08/16 at 09:30 Lorazepam (Ativan) 1 mg Q6H PRN IV AGITATION/ANXIETY Last administered on 23:15; Admin Dose 1 MG; Start 06/09/16 at 13:30 Citric Acid/ Sodium Citrate (Bicitra) 30 ml BID PO Last administered on 08:50; Admin Dose 30 ML; Start 06/26/16 at 21:00 Potassium Chloride (Potassium Chloride Pwd/Soln) 40 meq DAILY GTB Last administered on 07/17/16 08:50; Admin Dose 40 MEQ; Start 06/30/16 at 10:30 Atenolol (Tenormin) 12.5 mg BID PO Last administered on 07/17/16 08:51; Admin Dose 12.5 MG; Start 06/30/16 at 23:00 Diagnostic Test (Pha) (Accu-Chek) 1 ea Q12 XX Last administered on 07/16/16 22 :08; Admin Dose 1 EA; Start 07/05/16 at 09:00 Lansoprazole (Prevacid) 30 mg DAILY@06 GTB Last administered on 07/17/16 05:52 ; Admin Dose 30 MG; Start 07/06/16 at 06:00 Furosemide (Lasix) 20 mg DAILY IV Last administered on 07/17/16 08:52; Admin Dose 20 MG; Start 07/07/16 at 09:00 Calcium Carbonate (Tums) 1,000 mg BID PO Last administered on 07/17/16 08:51; Admin Dose 1,000 MG; Start 07/06/16 at 21:00 Cholecalciferol (Vitamin D) 800 units DAILY PO Last administered on 07/17/16 08:51; Admin Dose 800 UNITS; Start 07/07/16 at 09:00 Midodrine 5 mg 5 mg TID@,,17 GTB Last administered on 07/15/16 17:19; Admin Dose 5 MG; Start 07/07/16 at 17:00 Meropenem (Merrem 500 Mg/ 100 ml (Pmx)) 100 ml @ 200 mls/hr Q8 IVPB Last administered on 07/17/16 13:30; Admin Dose 200 MLS/HR; Start 07/11/16 at 14:00 Linezolid (Zyvox) 600 mg BID PO Last administered on 07/17/16 08:51; Admin Dose 600 MG; Start 07/12/16 at 12:00 JAYA GORE July 17, 2016 19:05
[2016-07-17] MEDS: TAMSULOSIN (SR) 0.4 MG CAP PO SCH (20:03)
[2016-07-17] MEDS: ACETAMINOPHEN 650MG/20.3ML CUP PO PRN (21:25)
--- NOTE | 2016-07-17 22:30 | PN ---
Date/Time of Note Date/Time of Note DATE: 07/17/16 TIME: 22:27 Assessment/Plan VTE Prophylaxis VTE Prophylaxis Intervention: other Lines/Catheters IV Catheter Type (from Nrs): Peripheral IV Urinary Cath still in place: Yes Reason Cath still needed: other (indicate) Assessment/Plan Chief Complaint/Hosp Course IMPRESSION: 1. Sepsis 2. Pneumonia. aspiration 3. Leukocytosis. sacral decubitus better 4. Hematuria. better 5. Lactic acidosis. better 6. Respiratory failure. 7. Gastrostomy tube placement. 8. Anemia. 9. Atrial fibrillation. 10. History of congestive heart failure with decreased ejection fraction. 11. vdrf 12. History of paroxysmal atrial fibrillation. 13. The patient now has decubitus. 14 uti 15 polymirobial sepsis 16 pul edema BETTER 17 no gi bleed 18 hypokalemia better 19 diarrhea cdiff neg 20 HYPOCALCEMEIA 21 WBC SCAN SEEN 22 sys chf plan per id iv fluid poor prognosis ck labs weaning per pulmonary and cardio POSS SUB ACUTE surgery consult f/u seen GT FEEDING lytes replacement prn Problems: Subjective 24 Hr Interval Summary Subjective hx not possible: pt non-verbal Exam/Review of Systems Vital Signs Vitals Vital Signs Date Time Temp Pulse Resp B/P Pulse Ox O2 Delivery O2 Flow Rate FiO2 07/17/16 20:51 65 07/17/16 20:00 98.7 15 117/60 98 07/17/16 19:25 30 Intake and Output 07/16/16 07/16/16 07/17/16 14:59 22:59 06:59 Intake Total 1330 ml 961 ml Output Total 2600 ml 1300 ml Balance -1270 ml -339 ml Exam Respiratory: clear to auscultation Cardiovascular: regular rate and rhythm Gastrointestinal: bowel sounds (+), soft Extremities: edema (+) Skin: other (decubitus+) Results Result Diagram: 07/16/16 0540 07/16/16 0540 Results 24 hrs Laboratory Tests Test 07/17/16 09:27 07/17/16 20:02 Bedside Glucose 108 112 Medications Medications Current Medications Naloxone HCl (Narcan) 0.4 mg Q3M PRN IV DECREASED REPIRATORY RATE; Start at 10:30 Ondansetron HCl (Zofran Inj) 4 mg Q6H PRN IV NAUSEA AND/OR VOMITING; Start 01/12 at 10:30 Nitroglycerin (Nitroglycerin (Sl Tab) 0.4 Mg) 1 tab Q5M PRN SL CHEST PAIN; Start 06/06/16 at 10:30 Acetaminophen (Tylenol Liquid) 650 mg Q6H PRN PO PAIN LEVEL 1-3 OR FEVER Last administered on 07/17/16 21:25; Admin Dose 650 MG; Start 06/06/16 at 10:30 Morphine Sulfate (morphine) 2 mg Q4H PRN IV PAIN LEVEL 7-10 Last administered on 06/15/16 00:22; Admin Dose 2 MG; Start 06/06/16 at 10:30 Docusate Sodium (Colace) 100 mg Q12H PRN PO CONSTIPATION; Start 06/06/16 at 10: 30 Magnesium Hydroxide (Milk Of Mag) 30 ml DAILY PRN PO CONSTIPATION; Start at 10:30 Bisacodyl (Dulcolax) 5 mg DAILY PRN PO CONSTIPATION; Start 06/06/16 at 10:30 Collagenase (Santyl) 1 applic DAILY TOP Last administered on 07/17/16 08:49; Admin Dose 1 APPLIC; Start 06/07/16 at 09:00 Collagenase (Santyl) 1 applic PRN PRN TOP WOUND CARE Last administered on 05:56; Admin Dose 1 APPLIC; Start 06/06/16 at 16:00 IV Flush (NS 10 ml) 10 ml PRN PRN IV IV PROTOCOL; Start 06/06/16 at 18:30 Ascorbic Acid (Vitamin C) 500 mg DAILY GTB Last administered on 07/17/16 08:50 ; Admin Dose 500 MG; Start 06/07/16 at 09:00 Aspirin (Aspirin) 325 mg DAILY GTB Last administered on 07/17/16 08:51; Admin Dose 325 MG; Start 06/07/16 at 09:00 Multivitamins (Thera-Plus) 5 ml DAILY GTB Last administered on 07/17/16 08:50 ; Admin Dose 5 ML; Start 06/07/16 at 09:00 Tamsulosin HCl (Flomax) 0.4 mg HS PO Last administered on 07/17/16 20:03; Admin Dose 0.4 MG; Start 06/07/16 at 21:00 Mupirocin (Bactroban) 1 applic BID TOP Last administered on 07/17/16 21:26; Admin Dose 1 APPLIC; Start 06/07/16 at 21:00 Metoclopramide HCl (Reglan) 10 mg Q6H PRN IV NAUSEA AND/OR VOMITING Last administered on 06/08/16 18:00; Admin Dose 10 MG; Start 06/08/16 at 09:30 Lorazepam (Ativan) 1 mg Q6H PRN IV AGITATION/ANXIETY Last administered on 23:15; Admin Dose 1 MG; Start 06/09/16 at 13:30 Citric Acid/ Sodium Citrate (Bicitra) 30 ml BID PO Last administered on 20:51; Admin Dose 30 ML; Start 06/26/16 at 21:00 Potassium Chloride (Potassium Chloride Pwd/Soln) 40 meq DAILY GTB Last administered on 07/17/16 08:50; Admin Dose 40 MEQ; Start 06/30/16 at 10:30 Atenolol (Tenormin) 12.5 mg BID PO Last administered on 07/17/16 20:04; Admin Dose 12.5 MG; Start 06/30/16 at 23:00 Diagnostic Test (Pha) (Accu-Chek) 1 ea Q12 XX Last administered on 07/17/16 20 :05; Admin Dose 1 EA; Start 07/05/16 at 09:00 Lansoprazole (Prevacid) 30 mg DAILY@06 GTB Last administered on 07/17/16 05:52 ; Admin Dose 30 MG; Start 07/06/16 at 06:00 Furosemide (Lasix) 20 mg DAILY IV Last administered on 07/17/16 08:52; Admin Dose 20 MG; Start 07/07/16 at 09:00 Calcium Carbonate (Tums) 1,000 mg BID PO Last administered on 07/17/16 20:03; Admin Dose 1,000 MG; Start 07/06/16 at 21:00 Cholecalciferol (Vitamin D) 800 units DAILY PO Last administered on 07/17/16 08:51; Admin Dose 800 UNITS; Start 07/07/16 at 09:00 Midodrine 5 mg 5 mg TID@,,17 GTB Last administered on 07/15/16 17:19; Admin Dose 5 MG; Start 07/07/16 at 17:00 Meropenem (Merrem 500 Mg/ 100 ml (Pmx)) 100 ml @ 200 mls/hr Q8 IVPB Last administered on 07/17/16 21:25; Admin Dose 200 MLS/HR; Start 07/11/16 at 14:00 Linezolid (Zyvox) 600 mg BID PO Last administered on 07/17/16 20:03; Admin Dose 600 MG; Start 07/12/16 at 12:00 HOLLI LINDER MD July 17, 2016 22:30
[2016-07-18] VITALS (24 sets, daily range): BP systolic 105–155; BP diastolic 56–73; PULSE 60–77; RESP 15–32
[2016-07-18] MEDS: ALBUTEROL 18 GM INHALER INH SCH ×6 (04:09→20:00)
[2016-07-18] MEDS: IPRATROPIUM (HFA) 12.9 GM INHALER INH SCH ×6 (04:09→20:00)
[2016-07-18] MEDS: MEROPENEM 500 MG/100 ML (PMX) 100 ML IVPB SCH ×3 (05:55→22:21)
[2016-07-18] MEDS: LANSOPRAZOLE 30 MG CAP GTB SCH (05:57)
[2016-07-18] MEDS: COLISTIMETHATE (25 MG/ML INHAL SYG) NEB SCH ×2 (08:30→19:46)
[2016-07-18] MEDS: ACCU-CHEK XX SCH ×2 (09:00→21:00)
[2016-07-18] MEDS: MIDODRINE 5 MG TAB GTB SCH ×3 (09:00→17:00)
[2016-07-18] MEDS: CITRIC ACID/SODIUM CITRATE 15 ML CUP PO SCH ×2 (10:41→22:21)
[2016-07-18] MEDS: CHOLECALCIFEROL 400 UNITS TAB PO SCH (10:41)
[2016-07-18] MEDS: ASCORBIC ACID 500 MG TAB GTB SCH (10:41)
[2016-07-18] MEDS: CALCIUM CARBONATE 500 MG CHEW TAB PO SCH ×2 (10:41→22:21)
[2016-07-18] MEDS: ASPIRIN 325 MG TAB GTB SCH (10:41)
[2016-07-18] MEDS: ZYVOX 600 MG TAB PO SCH ×2 (10:41→22:21)
[2016-07-18] MEDS: ATENOLOL 25 MG TAB PO SCH ×2 (10:42→22:21)
[2016-07-18] MEDS: FUROSEMIDE 20 MG INJ IV SCH (10:42)
[2016-07-18] MEDS: MULTIVITAMINS 5 ML CUP GTB SCH (10:42)
[2016-07-18] MEDS: POTASSIUM CHLORIDE 20 MEQ POWDER FOR ORAL SOLN GTB SCH (10:42)
[2016-07-18] MEDS: MUPIROCIN 2% 22 GM OINT TOP SCH ×2 (10:43→22:22)
[2016-07-18] MEDS: COLLAGENASE 30 GM TUBE TOP SCH (10:44)
--- NOTE | 2016-07-18 11:01 | CONS ---
Date/Time of Note Date/Time of Note DATE: 07/18/16 TIME: 11:00 Assessment/Plan Assessment/Plan Additional Assessment/Plan 1.CHF-systolic acute on chonic-reasonable volume status at this time - stable 2.Resp failure s/p trach on vent 3.Cardiomyopathy-LVEF 25-30% - no plan for ICD upgrade now 4.HTN-with recurrent episodes of Hotn on midodrine as necessary with overall improvement 5.PPM-s/p interrogation with proper function-episodes of SVT and short episode VT 06/09/16/good battery life - now a. paced 6.Leukocytosis-persistent 7.Tachycardia-PAF/AFL rate controlled 8.Perforated viscous s/p IR drain now removed with ongoing leukocytosis 9. Renal insuff-? overdiuresis-now improved and back to baseline 10. Wide complex tachy-NSVT today 06/30/16. NO recurrence - stable Consultation Date/Type/Reason Admit Date/Time Jun 06, 2016 at 08:08 Initial Consult Date 06/07/16 Type of Consultation: Cardiology Referring Provider: HOLLI LINDER MD 24 HR Interval Summary Free Text/Dictation NO acute events - chronically ill - will monitor closely ROS: No fever, no chills, no nausea, no vomiting, no diarrhea/constipation No recent weight changes No chest pain, no PND, no orthopnea No dizziness, blurred vision No thirst, no heat or cold intolerance Exam/Review of Systems Vital Signs Vitals Vital Signs Date Time Temp Pulse Resp B/P Pulse Ox O2 Delivery O2 Flow Rate FiO2 07/18/16 09:08 88 22 98 30 07/18/16 07:28 98.8 155/70 Intake and Output 07/17/16 07/17/16 07/18/16 15:00 23:00 07:00 Intake Total 1050 ml 1030 ml Output Total 1800 ml 1200 ml Balance -750 ml -170 ml Exam General: WN/WD/NAD, AOx confused HEENT: Unicetric/atraumatic/EOMI (does not follow commands) NECK: trach Lymph: no lymphadenopathy HEART: regular with no S3, II/ systolic murmur at apex LUNGS: Coarse sounds ABD: soft, NT, ND, +BS : Intact Neuro: non focal SKIN: chronic changes EXT: trace edema Results Result Diagram: 5/21/17 0540 5/21/17 0540 Results 24 hrs Laboratory Tests Test 07/17/16 20:02 07/18/16 10:40 Bedside Glucose 112 98 Medications Medications Current Medications Naloxone HCl (Narcan) 0.4 mg Q3M PRN IV DECREASED REPIRATORY RATE; Start at 10:30 Ondansetron HCl (Zofran Inj) 4 mg Q6H PRN IV NAUSEA AND/OR VOMITING; Start 01/12 at 10:30 Nitroglycerin (Nitroglycerin (Sl Tab) 0.4 Mg) 1 tab Q5M PRN SL CHEST PAIN; Start 06/06/16 at 10:30 Acetaminophen (Tylenol Liquid) 650 mg Q6H PRN PO PAIN LEVEL 1-3 OR FEVER Last administered on 07/17/16 21:25; Admin Dose 650 MG; Start 06/06/16 at 10:30 Morphine Sulfate (morphine) 2 mg Q4H PRN IV PAIN LEVEL 7-10 Last administered on 06/15/16 00:22; Admin Dose 2 MG; Start 06/06/16 at 10:30 Docusate Sodium (Colace) 100 mg Q12H PRN PO CONSTIPATION; Start 06/06/16 at 10: 30 Magnesium Hydroxide (Milk Of Mag) 30 ml DAILY PRN PO CONSTIPATION; Start at 10:30 Bisacodyl (Dulcolax) 5 mg DAILY PRN PO CONSTIPATION; Start 06/06/16 at 10:30 Collagenase (Santyl) 1 applic DAILY TOP Last administered on 07/18/16 10:44; Admin Dose 1 APPLIC; Start 06/07/16 at 09:00 Collagenase (Santyl) 1 applic PRN PRN TOP WOUND CARE Last administered on 05:56; Admin Dose 1 APPLIC; Start 06/06/16 at 16:00 IV Flush (NS 10 ml) 10 ml PRN PRN IV IV PROTOCOL; Start 06/06/16 at 18:30 Ascorbic Acid (Vitamin C) 500 mg DAILY GTB Last administered on 07/18/16 10:41 ; Admin Dose 500 MG; Start 06/07/16 at 09:00 Aspirin (Aspirin) 325 mg DAILY GTB Last administered on 07/18/16 10:41; Admin Dose 325 MG; Start 06/07/16 at 09:00 Multivitamins (Thera-Plus) 5 ml DAILY GTB Last administered on 07/18/16 10:42 ; Admin Dose 5 ML; Start 06/07/16 at 09:00 Tamsulosin HCl (Flomax) 0.4 mg HS PO Last administered on 07/17/16 20:03; Admin Dose 0.4 MG; Start 06/07/16 at 21:00 Mupirocin (Bactroban) 1 applic BID TOP Last administered on 07/18/16 10:43; Admin Dose 1 APPLIC; Start 06/07/16 at 21:00 Metoclopramide HCl (Reglan) 10 mg Q6H PRN IV NAUSEA AND/OR VOMITING Last administered on 06/08/16 18:00; Admin Dose 10 MG; Start 06/08/16 at 09:30 Lorazepam (Ativan) 1 mg Q6H PRN IV AGITATION/ANXIETY Last administered on 23:15; Admin Dose 1 MG; Start 06/09/16 at 13:30 Citric Acid/ Sodium Citrate (Bicitra) 30 ml BID PO Last administered on 10:41; Admin Dose 30 ML; Start 06/26/16 at 21:00 Potassium Chloride (Potassium Chloride Pwd/Soln) 40 meq DAILY GTB Last administered on 07/18/16 10:42; Admin Dose 40 MEQ; Start 06/30/16 at 10:30 Atenolol (Tenormin) 12.5 mg BID PO Last administered on 07/18/16 10:42; Admin Dose 12.5 MG; Start 06/30/16 at 23:00 Diagnostic Test (Pha) (Accu-Chek) 1 ea Q12 XX Last administered on 07/17/16 20 :05; Admin Dose 1 EA; Start 07/05/16 at 09:00 Lansoprazole (Prevacid) 30 mg DAILY@06 GTB Last administered on 07/18/16 05:57 ; Admin Dose 30 MG; Start 07/06/16 at 06:00 Furosemide (Lasix) 20 mg DAILY IV Last administered on 07/18/16 10:42; Admin Dose 20 MG; Start 07/07/16 at 09:00 Calcium Carbonate (Tums) 1,000 mg BID PO Last administered on 07/18/16 10:41; Admin Dose 1,000 MG; Start 07/06/16 at 21:00 Cholecalciferol (Vitamin D) 800 units DAILY PO Last administered on 07/18/16 10:41; Admin Dose 800 UNITS; Start 07/07/16 at 09:00 Midodrine 5 mg 5 mg TID@,,17 GTB Last administered on 07/15/16 17:19; Admin Dose 5 MG; Start 07/07/16 at 17:00 Meropenem (Merrem 500 Mg/ 100 ml (Pmx)) 100 ml @ 200 mls/hr Q8 IVPB Last administered on 07/18/16 05:55; Admin Dose 200 MLS/HR; Start 07/11/16 at 14:00 Linezolid (Zyvox) 600 mg BID PO Last administered on 07/18/16 10:41; Admin Dose 600 MG; Start 07/12/16 at 12:00 ZEUS CHAPPELL MD July 18, 2016 11:01
--- NOTE | 2016-07-18 11:13 | CONS ---
Date/Time of Note Date/Time of Note DATE: 07/18/16 TIME: 11:12 Consult Date/Type/Reason Admit Date/Time Jun 06, 2016 at 08:08 Initial Consult Date 06/07/16 Type of Consultation: Pulmonary ICU Ordering Provider: HOLLI LINDER MD Subjective Patient remains unchanged Objective Vital Signs Date Time Temp Pulse Resp B/P Pulse Ox O2 Delivery O2 Flow Rate FiO2 07/18/16 11:08 86 25 97 30 07/18/16 07:28 98.8 155/70 Intake and Output 07/17/16 07/17/16 07/18/16 15:00 23:00 07:00 Intake Total 1050 ml 1030 ml Output Total 1800 ml 1200 ml Balance -750 ml -170 ml Exam PHYSICAL EXAMINATION GENERAL: Elderly gentleman on mechanical ventilation, VITAL SIGNS: see below. HEENT: Pupils equal, round, and reactive to light. Tracheostomy site clean and intact. CARDIAC: S1, S2, 1/6 systolic ejection murmur CHEST: Diminished air entry bilaterally. ABDOMEN: Mildly distended. Bowel sounds present no guarding or rebound EXTREMITIES: No cyanosis, clubbing edema +1 NEUROLOGIC: Generalized weakness Results/Medications Result Diagram: 07/16/16 0540 07/16/16 0540 Results 24 hrs Laboratory Tests Test 07/17/16 20:02 07/18/16 10:40 Bedside Glucose 112 98 Medications Current Medications Naloxone HCl (Narcan) 0.4 mg Q3M PRN IV DECREASED REPIRATORY RATE; Start at 10:30 Ondansetron HCl (Zofran Inj) 4 mg Q6H PRN IV NAUSEA AND/OR VOMITING; Start 01/12 at 10:30 Nitroglycerin (Nitroglycerin (Sl Tab) 0.4 Mg) 1 tab Q5M PRN SL CHEST PAIN; Start 06/06/16 at 10:30 Acetaminophen (Tylenol Liquid) 650 mg Q6H PRN PO PAIN LEVEL 1-3 OR FEVER Last administered on 07/17/16 21:25; Admin Dose 650 MG; Start 06/06/16 at 10:30 Morphine Sulfate (morphine) 2 mg Q4H PRN IV PAIN LEVEL 7-10 Last administered on 06/15/16 00:22; Admin Dose 2 MG; Start 06/06/16 at 10:30 Docusate Sodium (Colace) 100 mg Q12H PRN PO CONSTIPATION; Start 06/06/16 at 10: 30 Magnesium Hydroxide (Milk Of Mag) 30 ml DAILY PRN PO CONSTIPATION; Start at 10:30 Bisacodyl (Dulcolax) 5 mg DAILY PRN PO CONSTIPATION; Start 06/06/16 at 10:30 Collagenase (Santyl) 1 applic DAILY TOP Last administered on 07/18/16 10:44; Admin Dose 1 APPLIC; Start 06/07/16 at 09:00 Collagenase (Santyl) 1 applic PRN PRN TOP WOUND CARE Last administered on 05:56; Admin Dose 1 APPLIC; Start 06/06/16 at 16:00 IV Flush (NS 10 ml) 10 ml PRN PRN IV IV PROTOCOL; Start 06/06/16 at 18:30 Ascorbic Acid (Vitamin C) 500 mg DAILY GTB Last administered on 07/18/16 10:41 ; Admin Dose 500 MG; Start 06/07/16 at 09:00 Aspirin (Aspirin) 325 mg DAILY GTB Last administered on 07/18/16 10:41; Admin Dose 325 MG; Start 06/07/16 at 09:00 Multivitamins (Thera-Plus) 5 ml DAILY GTB Last administered on 07/18/16 10:42 ; Admin Dose 5 ML; Start 06/07/16 at 09:00 Tamsulosin HCl (Flomax) 0.4 mg HS PO Last administered on 07/17/16 20:03; Admin Dose 0.4 MG; Start 06/07/16 at 21:00 Mupirocin (Bactroban) 1 applic BID TOP Last administered on 07/18/16 10:43; Admin Dose 1 APPLIC; Start 06/07/16 at 21:00 Metoclopramide HCl (Reglan) 10 mg Q6H PRN IV NAUSEA AND/OR VOMITING Last administered on 06/08/16 18:00; Admin Dose 10 MG; Start 06/08/16 at 09:30 Lorazepam (Ativan) 1 mg Q6H PRN IV AGITATION/ANXIETY Last administered on 23:15; Admin Dose 1 MG; Start 06/09/16 at 13:30 Citric Acid/ Sodium Citrate (Bicitra) 30 ml BID PO Last administered on 10:41; Admin Dose 30 ML; Start 06/26/16 at 21:00 Potassium Chloride (Potassium Chloride Pwd/Soln) 40 meq DAILY GTB Last administered on 07/18/16 10:42; Admin Dose 40 MEQ; Start 06/30/16 at 10:30 Atenolol (Tenormin) 12.5 mg BID PO Last administered on 07/18/16 10:42; Admin Dose 12.5 MG; Start 06/30/16 at 23:00 Diagnostic Test (Pha) (Accu-Chek) 1 ea Q12 XX Last administered on 07/17/16 20 :05; Admin Dose 1 EA; Start 07/05/16 at 09:00 Lansoprazole (Prevacid) 30 mg DAILY@06 GTB Last administered on 07/18/16 05:57 ; Admin Dose 30 MG; Start 07/06/16 at 06:00 Furosemide (Lasix) 20 mg DAILY IV Last administered on 07/18/16 10:42; Admin Dose 20 MG; Start 07/07/16 at 09:00 Calcium Carbonate (Tums) 1,000 mg BID PO Last administered on 07/18/16 10:41; Admin Dose 1,000 MG; Start 07/06/16 at 21:00 Cholecalciferol (Vitamin D) 800 units DAILY PO Last administered on 07/18/16 10:41; Admin Dose 800 UNITS; Start 07/07/16 at 09:00 Midodrine 5 mg 5 mg TID@09,13,17 GTB Last administered on 07/15/16 17:19; Admin Dose 5 MG; Start 07/07/16 at 17:00 Meropenem (Merrem 500 Mg/ 100 ml (Pmx)) 100 ml @ 200 mls/hr Q8 IVPB Last administered on 07/18/16 05:55; Admin Dose 200 MLS/HR; Start 07/11/16 at 14:00 Linezolid (Zyvox) 600 mg BID PO Last administered on 07/18/16 10:41; Admin Dose 600 MG; Start 07/12/16 at 12:00 Assessment/Plan Chief Complaint/Hosp Course assessment 1. Vent dependent respiratory failure with evidence of healthcare associated pneumonia 2. Status post bowel perforation with drainage, persistent leukocytosis 3. Ongoing sepsis as above 4. Chronic atrial fibrillation 5. Decubitus ulcers 6. Dysphagia with G-tube 7. Chronic encephalopathy Plan 1. Continue mechanical ventilation 2. Continue broad-spectrum antibiotics per infectious diseases 3. Surgical recommendations regarding abdominal drains 4. Palliative care consult appreciated, bioethics meeting notes reviewed. 5. DVT and GI prophylaxis 6. Stable post transfusion Disposition Continue current care Bioethics recommendations. Consider transfer to [facility] facility Problems: KAVON TROY MD, [facility] July 18, 2016 11:13
--- NOTE | 2016-07-18 14:27 | CONS ---
Date/Time of Note Date/Time of Note DATE: 07/18/16 TIME: 14:26 Assessment/Plan Assessment/Plan Chief Complaint/Hosp Course SUBJECTIVE: No acute changes. Noncommunicative. Looks comfortable MICROBIOLOGY: Blood culture on 07/10/2016 negative. Urine culture negative. Endotracheal aspirate grew Acinetobacter baumannii and Klebsiella pneumoniae. Wound cx + Enterococcus/Kleb ESBL/A. baumanii INDWELLINGS: Trach, PEG, Alfonso Abx: Colistin INH, Merrem, Zyvox PHYSICAL EXAMINATION: GENERAL: This is a fragile, chronically ill-appearing, elderly man who is in no distress. HEENT: Head atraumatic, normocephalic. Sclerae anicteric. Buccal mucosa dry. NECK: Supple. Tracheostomy present. CHEST: Rise symmetrical. Breath sounds diminished to bases. HEART: S1, S2. ABDOMEN: Soft. Bowel tones hypoactive. EXTREMITIES: With trace edema. ASSESSMENT: 1. Systemic inflammatory response syndrome with persistent leukocytosis 2 to # 4 2. Chronic respiratory failure, status post pneumonia, with endotracheal aspirate growing multi-drug resistant organisms===> on colistin inhalation. 3. Status post intra-abdominal abscess drainage==> repeat CT + resolution. 4. Infected sacral decubitus==> cx growing multiple bacteria. 5. Atrial fibrillation. 6. Acute on chronic anemia. 7. Status post methicillin-resistant Staphylococcus aureus bacteremia and urinary tract infection on admission. PLAN: Clinically unchanged, on appropriate abx, continue local wound care/off load, f/u surgical rec-s, vent per pulmonary DW staff Problems: Consultation Date/Type/Reason Admit Date/Time Jun 06, 2016 at 08:08 Initial Consult Date 06/07/16 Type of Consultation: ID Referring Provider: HOLLI LINDER MD Exam/Review of Systems Vital Signs Vitals Vital Signs Date Time Temp Pulse Resp B/P Pulse Ox O2 Delivery O2 Flow Rate FiO2 07/18/16 12:51 70 07/18/16 11:54 98.3 20 117/61 97 07/18/16 11:08 30 Intake and Output 07/17/16 07/17/16 07/18/16 15:00 23:00 07:00 Intake Total 1050 ml 1030 ml Output Total 1800 ml 1200 ml Balance -750 ml -170 ml Results Result Diagram: 07/16/16 0540 07/16/1640 Results 24 hrs Laboratory Tests Test 07/17/16 20:02 07/18/16 10:40 Bedside Glucose 112 98 Medications Medications Current Medications Naloxone HCl (Narcan) 0.4 mg Q3M PRN IV DECREASED REPIRATORY RATE; Start at 10:30 Ondansetron HCl (Zofran Inj) 4 mg Q6H PRN IV NAUSEA AND/OR VOMITING; Start 01/12 at 10:30 Nitroglycerin (Nitroglycerin (Sl Tab) 0.4 Mg) 1 tab Q5M PRN SL CHEST PAIN; Start 06/06/16 at 10:30 Acetaminophen (Tylenol Liquid) 650 mg Q6H PRN PO PAIN LEVEL 1-3 OR FEVER Last administered on 07/17/16 21:25; Admin Dose 650 MG; Start 06/06/16 at 10:30 Morphine Sulfate (morphine) 2 mg Q4H PRN IV PAIN LEVEL 7-10 Last administered on 06/15/16 00:22; Admin Dose 2 MG; Start 06/06/16 at 10:30 Docusate Sodium (Colace) 100 mg Q12H PRN PO CONSTIPATION; Start 06/06/16 at 10: 30 Magnesium Hydroxide (Milk Of Mag) 30 ml DAILY PRN PO CONSTIPATION; Start at 10:30 Bisacodyl (Dulcolax) 5 mg DAILY PRN PO CONSTIPATION; Start 06/06/16 at 10:30 Collagenase (Santyl) 1 applic DAILY TOP Last administered on 07/18/16 10:44; Admin Dose 1 APPLIC; Start 06/07/16 at 09:00 Collagenase (Santyl) 1 applic PRN PRN TOP WOUND CARE Last administered on 05:56; Admin Dose 1 APPLIC; Start 06/06/16 at 16:00 IV Flush (NS 10 ml) 10 ml PRN PRN IV IV PROTOCOL; Start 06/06/16 at 18:30 Ascorbic Acid (Vitamin C) 500 mg DAILY GTB Last administered on 07/18/16 10:41 ; Admin Dose 500 MG; Start 06/07/16 at 09:00 Aspirin (Aspirin) 325 mg DAILY GTB Last administered on 07/18/16 10:41; Admin Dose 325 MG; Start 06/07/16 at 09:00 Multivitamins (Thera-Plus) 5 ml DAILY GTB Last administered on 07/18/16 10:42 ; Admin Dose 5 ML; Start 06/07/16 at 09:00 Tamsulosin HCl (Flomax) 0.4 mg HS PO Last administered on 07/17/16 20:03; Admin Dose 0.4 MG; Start 06/07/16 at 21:00 Mupirocin (Bactroban) 1 applic BID TOP Last administered on 07/18/16 10:43; Admin Dose 1 APPLIC; Start 06/07/16 at 21:00 Metoclopramide HCl (Reglan) 10 mg Q6H PRN IV NAUSEA AND/OR VOMITING Last administered on 06/08/16 18:00; Admin Dose 10 MG; Start 06/08/16 at 09:30 Lorazepam (Ativan) 1 mg Q6H PRN IV AGITATION/ANXIETY Last administered on 23:15; Admin Dose 1 MG; Start 06/09/16 at 13:30 Citric Acid/ Sodium Citrate (Bicitra) 30 ml BID PO Last administered on 10:41; Admin Dose 30 ML; Start 06/26/16 at 21:00 Potassium Chloride (Potassium Chloride Pwd/Soln) 40 meq DAILY GTB Last administered on 07/18/16 10:42; Admin Dose 40 MEQ; Start 06/30/16 at 10:30 Atenolol (Tenormin) 12.5 mg BID PO Last administered on 07/18/16 10:42; Admin Dose 12.5 MG; Start 06/30/16 at 23:00 Diagnostic Test (Pha) (Accu-Chek) 1 ea Q12 XX Last administered on 07/17/16 20 :05; Admin Dose 1 EA; Start 07/05/16 at 09:00 Lansoprazole (Prevacid) 30 mg DAILY@06 GTB Last administered on 07/18/16 05:57 ; Admin Dose 30 MG; Start 07/06/16 at 06:00 Furosemide (Lasix) 20 mg DAILY IV Last administered on 07/18/16 10:42; Admin Dose 20 MG; Start 07/07/16 at 09:00 Calcium Carbonate (Tums) 1,000 mg BID PO Last administered on 07/18/16 10:41; Admin Dose 1,000 MG; Start 07/06/16 at 21:00 Cholecalciferol (Vitamin D) 800 units DAILY PO Last administered on 07/18/16 10:41; Admin Dose 800 UNITS; Start 07/07/16 at 09:00 Midodrine 5 mg 5 mg TID@09,13,17 GTB Last administered on 07/15/16 17:19; Admin Dose 5 MG; Start 07/07/16 at 17:00 Meropenem (Merrem 500 Mg/ 100 ml (Pmx)) 100 ml @ 200 mls/hr Q8 IVPB Last administered on 07/18/16 13:18; Admin Dose 200 MLS/HR; Start 07/11/16 at 14:00 Linezolid (Zyvox) 600 mg BID PO Last administered on 07/18/16 10:41; Admin Dose 600 MG; Start 07/12/16 at 12:00 JOSE G CUNNINGHAM NP July 18, 2016 14:27
[2016-07-18] MEDS: TAMSULOSIN (SR) 0.4 MG CAP PO SCH (22:21)
--- NOTE | 2016-07-18 23:05 | PN ---
Date/Time of Note Date/Time of Note DATE: 07/18/16 TIME: 23:02 Assessment/Plan Lines/Catheters IV Catheter Type (from [facility]): Peripheral IV Alfonso in Place (from [facility]): Yes Assessment/Plan Chief Complaint/Hosp Course 1. Contained perforated viscous s/p IR drain 06/11. Cx noted. Leukocytosis resolved. Tube feeds. Bowel function. Drain dcd. s/p Abx. Persistent leukocytosis. Chemical code. 2. Pneumonia -pulmonary toilette -abx 3. Sepsis, recent. Leukocytosis -abx -as above 4. Sacral decubitus ulcer -off load -nutrition optimization -vit c -local care 5. Chronic AFib -rate control -optimize electrolytes -tx infections 6. Anemia -tx prn 7. Hypoalbuminemia -eventual nutritional optimization 8. CHF -judicious fluid management -cardiac optimization Thank you, Problems: Subjective 24 Hr Interval Summary Leukocytosis improving. No f/c. No cough. No sz. No rashes. No bloating. No vomiting. No bleeding. Exam/Review of Systems Vital Signs Vitals Vital Signs Date Time Temp Pulse Resp B/P Pulse Ox O2 Delivery O2 Flow Rate FiO2 07/18/16 20:54 77 07/18/16 20:38 99.1 32 105/58 99 07/18/16 17:12 30 Intake and Output 07/17/16 07/17/16 07/18/16 15:00 23:00 07:00 Intake Total 1050 ml 1030 ml Output Total 1800 ml 1200 ml Balance -750 ml -170 ml Exam Free Text/Dictation Constitutional: No distress, No oriented Psych: confusion, No anxiety Head: atraumatic, normocephalic Eyes: PERRL, nl conjunctiva, No icteric ENMT: mucosa pink and moist, nl external ears & nose, nl lips & teeth Neck: jvd (min), non-tender Respiratory: No congested cough, No labored breathing Cardiovascular: No edema, No regular rate and rhythm Gastrointestinal: soft, PEGNo distended, No firm, No rebound or guarding Musculoskeletal: No joint tenderness, No nl gait and stance Extremities: No calf tenderness, No cyanosis Neurological: No nl mental status, No nl speech, No nl strength Skin: nl turgor, rash or lesions (Sacral and LE decubitus ulcerations), No diaphoresis Lymph: nl lymph nodes Results Result Diagram: 07/16/16 0540 07/16/16 0540 DAREK AHMADI MD July 18, 2016 23:05
--- NOTE | 2016-07-18 23:51 | PN ---
Date/Time of Note Date/Time of Note DATE: 07/18/16 TIME: 23:50 Assessment/Plan VTE Prophylaxis VTE Prophylaxis Intervention: other Lines/Catheters IV Catheter Type (from Nrs): Peripheral IV Urinary Cath still in place: Yes Reason Cath still needed: other (indicate) Assessment/Plan Chief Complaint/Hosp Course IMPRESSION: 1. Sepsis 2. Pneumonia. aspiration 3. Leukocytosis. sacral decubitus better 4. Hematuria. better 5. Lactic acidosis. better 6. Respiratory failure. 7. Gastrostomy tube placement. 8. Anemia. 9. Atrial fibrillation. 10. History of congestive heart failure with decreased ejection fraction. 11. vdrf 12. History of paroxysmal atrial fibrillation. 13. The patient now has decubitus. 14 uti 15 polymirobial sepsis 16 pul edema BETTER 17 no gi bleed 18 hypokalemia better 19 diarrhea cdiff neg 20 HYPOCALCEMEIA 21 WBC SCAN SEEN 22 sys chf plan per id iv fluid poor prognosis Problems: Subjective 24 Hr Interval Summary Subjective hx not possible: other (NO CHANGE) Exam/Review of Systems Vital Signs Vitals Vital Signs Date Time Temp Pulse Resp B/P Pulse Ox O2 Delivery O2 Flow Rate FiO2 07/18/16 20:54 77 07/18/16 20:38 99.1 32 105/58 99 07/18/16 17:12 30 Intake and Output 07/17/16 07/17/16 07/18/16 15:00 23:00 07:00 Intake Total 1050 ml 1030 ml Output Total 1800 ml 1200 ml Balance -750 ml -170 ml Exam Neck: supple Respiratory: clear to auscultation Cardiovascular: regular rate and rhythm Gastrointestinal: soft Results Result Diagram: 07/16/16 0540 07/16/16 0540 Results 24 hrs Laboratory Tests Test 07/18/16 10:40 07/18/16 22:19 Bedside Glucose 98 111 Medications Medications Current Medications Naloxone HCl (Narcan) 0.4 mg Q3M PRN IV DECREASED REPIRATORY RATE; Start at 10:30 Ondansetron HCl (Zofran Inj) 4 mg Q6H PRN IV NAUSEA AND/OR VOMITING; Start 01/12 at 10:30 Nitroglycerin (Nitroglycerin (Sl Tab) 0.4 Mg) 1 tab Q5M PRN SL CHEST PAIN; Start 06/06/16 at 10:30 Acetaminophen (Tylenol Liquid) 650 mg Q6H PRN PO PAIN LEVEL 1-3 OR FEVER Last administered on 07/17/16 21:25; Admin Dose 650 MG; Start 06/06/16 at 10:30 Morphine Sulfate (morphine) 2 mg Q4H PRN IV PAIN LEVEL 7-10 Last administered on 06/15/16 00:22; Admin Dose 2 MG; Start 06/06/16 at 10:30 Docusate Sodium (Colace) 100 mg Q12H PRN PO CONSTIPATION; Start 06/06/16 at 10: 30 Magnesium Hydroxide (Milk Of Mag) 30 ml DAILY PRN PO CONSTIPATION; Start at 10:30 Bisacodyl (Dulcolax) 5 mg DAILY PRN PO CONSTIPATION; Start 06/06/16 at 10:30 Collagenase (Santyl) 1 applic DAILY TOP Last administered on 07/18/16 10:44; Admin Dose 1 APPLIC; Start 06/07/16 at 09:00 Collagenase (Santyl) 1 applic PRN PRN TOP WOUND CARE Last administered on 05:56; Admin Dose 1 APPLIC; Start 06/06/16 at 16:00 IV Flush (NS 10 ml) 10 ml PRN PRN IV IV PROTOCOL; Start 06/06/16 at 18:30 Ascorbic Acid (Vitamin C) 500 mg DAILY GTB Last administered on 07/18/16 10:41 ; Admin Dose 500 MG; Start 06/07/16 at 09:00 Aspirin (Aspirin) 325 mg DAILY GTB Last administered on 07/18/16 10:41; Admin Dose 325 MG; Start 06/07/16 at 09:00 Multivitamins (Thera-Plus) 5 ml DAILY GTB Last administered on 07/18/16 10:42 ; Admin Dose 5 ML; Start 06/07/16 at 09:00 Tamsulosin HCl (Flomax) 0.4 mg HS PO Last administered on 07/18/16 22:21; Admin Dose 0.4 MG; Start 06/07/16 at 21:00 Mupirocin (Bactroban) 1 applic BID TOP Last administered on 07/18/16 22:22; Admin Dose 1 APPLIC; Start 06/07/16 at 21:00 Metoclopramide HCl (Reglan) 10 mg Q6H PRN IV NAUSEA AND/OR VOMITING Last administered on 06/08/16 18:00; Admin Dose 10 MG; Start 06/08/16 at 09:30 Lorazepam (Ativan) 1 mg Q6H PRN IV AGITATION/ANXIETY Last administered on 23:15; Admin Dose 1 MG; Start 06/09/16 at 13:30 Citric Acid/ Sodium Citrate (Bicitra) 30 ml BID PO Last administered on 22:21; Admin Dose 30 ML; Start 06/26/16 at 21:00 Potassium Chloride (Potassium Chloride Pwd/Soln) 40 meq DAILY GTB Last administered on 07/18/16 10:42; Admin Dose 40 MEQ; Start 06/30/16 at 10:30 Atenolol (Tenormin) 12.5 mg BID PO Last administered on 07/18/16 22:21; Admin Dose 12.5 MG; Start 06/30/16 at 23:00 Diagnostic Test (Pha) (Accu-Chek) 1 ea Q12 XX Last administered on 07/18/16 21 :00; Admin Dose 1 EA; Start 07/05/16 at 09:00 Lansoprazole (Prevacid) 30 mg DAILY@06 GTB Last administered on 07/18/16 05:57 ; Admin Dose 30 MG; Start 07/06/16 at 06:00 Furosemide (Lasix) 20 mg DAILY IV Last administered on 07/18/16 10:42; Admin Dose 20 MG; Start 07/07/16 at 09:00 Calcium Carbonate (Tums) 1,000 mg BID PO Last administered on 07/18/16 22:21; Admin Dose 1,000 MG; Start 07/06/16 at 21:00 Cholecalciferol (Vitamin D) 800 units DAILY PO Last administered on 07/18/16 10:41; Admin Dose 800 UNITS; Start 07/07/16 at 09:00 Midodrine 5 mg 5 mg TID@,,17 GTB Last administered on 07/15/16 17:19; Admin Dose 5 MG; Start 07/07/16 at 17:00 Meropenem (Merrem 500 Mg/ 100 ml (Pmx)) 100 ml @ 200 mls/hr Q8 IVPB Last administered on 07/18/16 22:21; Admin Dose 200 MLS/HR; Start 07/11/16 at 14:00 Linezolid (Zyvox) 600 mg BID PO Last administered on 07/18/16 22:; Admin Dose 600 MG; Start 07/12/16 at 12:00 HOLLI LINDER MD July 18, 2016 23:51
[2016-07-19] VITALS (24 sets, daily range): BP systolic 120–170; BP diastolic 56–71; PULSE 73–82; RESP 18–31
[2016-07-19] MEDS: IPRATROPIUM (HFA) 12.9 GM INHALER INH SCH ×6 (00:54→20:03)
[2016-07-19] MEDS: ALBUTEROL 18 GM INHALER INH SCH ×6 (00:54→20:03)
[2016-07-19] MEDS: LANSOPRAZOLE 30 MG CAP GTB SCH (05:36)
[2016-07-19] MEDS: MEROPENEM 500 MG/100 ML (PMX) 100 ML IVPB SCH ×3 (05:37→21:01)
[2016-07-19] MEDS: MIDODRINE 5 MG TAB GTB SCH ×3 (09:00→16:39)
[2016-07-19] MEDS: COLISTIMETHATE (25 MG/ML INHAL SYG) NEB SCH ×2 (09:00→20:03)
[2016-07-19] MEDS: CITRIC ACID/SODIUM CITRATE 15 ML CUP PO SCH ×2 (09:34→20:50)
[2016-07-19] MEDS: ATENOLOL 25 MG TAB PO SCH ×2 (09:34→20:51)
[2016-07-19] MEDS: FUROSEMIDE 20 MG INJ IV SCH (09:34)
[2016-07-19] MEDS: MULTIVITAMINS 5 ML CUP GTB SCH (09:34)
[2016-07-19] MEDS: ASCORBIC ACID 500 MG TAB GTB SCH (09:34)
[2016-07-19] MEDS: CALCIUM CARBONATE 500 MG CHEW TAB PO SCH ×2 (09:34→20:50)
[2016-07-19] MEDS: ZYVOX 600 MG TAB PO SCH (09:35)
[2016-07-19] MEDS: POTASSIUM CHLORIDE 20 MEQ POWDER FOR ORAL SOLN GTB SCH (09:35)
[2016-07-19] MEDS: CHOLECALCIFEROL 400 UNITS TAB PO SCH (09:35)
[2016-07-19] MEDS: ASPIRIN 325 MG TAB GTB SCH (09:35)
[2016-07-19] MEDS: COLLAGENASE 30 GM TUBE TOP SCH (09:36)
[2016-07-19] MEDS: ACCU-CHEK XX SCH ×2 (09:36→20:53)
[2016-07-19] MEDS: MUPIROCIN 2% 22 GM OINT TOP SCH ×2 (09:36→20:50)
--- NOTE | 2016-07-19 12:19 | CONS ---
Date/Time of Note Date/Time of Note DATE: 07/19/16 TIME: 12:18 Assessment/Plan Assessment/Plan Chief Complaint/Hosp Course SUBJECTIVE: No acute changes. Noncommunicative. Looks comfortable MICROBIOLOGY: Blood culture on 07/10/2016 negative. Urine culture negative. Endotracheal aspirate grew Acinetobacter baumannii and Klebsiella pneumoniae. Wound cx + Enterococcus/Kleb ESBL/A. baumanii INDWELLINGS: Trach, PEG, Alfonso Abx: Colistin INH, Merrem, Zyvox PHYSICAL EXAMINATION: GENERAL: This is a fragile, chronically ill-appearing, elderly man who is in no distress. HEENT: Head atraumatic, normocephalic. Sclerae anicteric. Buccal mucosa dry. NECK: Supple. Tracheostomy present. CHEST: Rise symmetrical. Breath sounds diminished to bases. HEART: S1, S2. ABDOMEN: Soft. Bowel tones hypoactive. EXTREMITIES: With trace edema. ASSESSMENT: 1. Systemic inflammatory response syndrome with persistent leukocytosis 2 to # 4 2. Chronic respiratory failure, status post pneumonia, with endotracheal aspirate growing multi-drug resistant organisms===> on colistin inhalation. 3. Status post intra-abdominal abscess drainage==> repeat CT + resolution. 4. Infected sacral decubitus==> cx growing multiple bacteria. 5. Atrial fibrillation. 6. Acute on chronic anemia. 7. Status post methicillin-resistant Staphylococcus aureus bacteremia and urinary tract infection on admission. PLAN: Remains stable, will change Zyvox to Vanco, continue local wound care/ off load, f/u surgical rec-s, vent per pulmonary DW staff Problems: Consultation Date/Type/Reason Admit Date/Time Jun 06, 2016 at 08:08 Initial Consult Date 06/07/16 Type of Consultation: ID Referring Provider: HOLLI LINDER MD Exam/Review of Systems Vital Signs Vitals Vital Signs Date Time Temp Pulse Resp B/P Pulse Ox O2 Delivery O2 Flow Rate FiO2 07/19/16 11:33 98.6 75 20 158/67 98 07/19/16 09:50 30 Intake and Output 07/18/16 07/18/16 07/19/16 15:00 23:00 07:00 Intake Total 1180 ml 1075 ml Output Total 1950 ml 1050 ml Balance -770 ml 25 ml Results Result Diagram: 07/16/16 0540 07/16/16 0540 Results 24 hrs Laboratory Tests Test 07/18/16 22:19 07/19/16 10:09 Bedside Glucose 111 129 Medications Medications Current Medications Naloxone HCl (Narcan) 0.4 mg Q3M PRN IV DECREASED REPIRATORY RATE; Start at 10:30 Ondansetron HCl (Zofran Inj) 4 mg Q6H PRN IV NAUSEA AND/OR VOMITING; Start 01/12 at 10:30 Nitroglycerin (Nitroglycerin (Sl Tab) 0.4 Mg) 1 tab Q5M PRN SL CHEST PAIN; Start 06/06/16 at 10:30 Acetaminophen (Tylenol Liquid) 650 mg Q6H PRN PO PAIN LEVEL 1-3 OR FEVER Last administered on 07/17/16 21:25; Admin Dose 650 MG; Start 06/06/16 at 10:30 Morphine Sulfate (morphine) 2 mg Q4H PRN IV PAIN LEVEL 7-10 Last administered on 06/15/16 00:22; Admin Dose 2 MG; Start 06/06/16 at 10:30 Docusate Sodium (Colace) 100 mg Q12H PRN PO CONSTIPATION; Start 06/06/16 at 10: 30 Magnesium Hydroxide (Milk Of Mag) 30 ml DAILY PRN PO CONSTIPATION; Start at 10:30 Bisacodyl (Dulcolax) 5 mg DAILY PRN PO CONSTIPATION; Start 06/06/16 at 10:30 Collagenase (Santyl) 1 applic DAILY TOP Last administered on 07/19/16 09:36; Admin Dose 1 APPLIC; Start 06/07/16 at 09:00 Collagenase (Santyl) 1 applic PRN PRN TOP WOUND CARE Last administered on 05:56; Admin Dose 1 APPLIC; Start 06/06/16 at 16:00 IV Flush (NS 10 ml) 10 ml PRN PRN IV IV PROTOCOL; Start 06/06/16 at 18:30 Ascorbic Acid (Vitamin C) 500 mg DAILY GTB Last administered on 07/19/16 09:34 ; Admin Dose 500 MG; Start 06/07/16 at 09:00 Aspirin (Aspirin) 325 mg DAILY GTB Last administered on 07/19/16 09:35; Admin Dose 325 MG; Start 06/07/16 at 09:00 Multivitamins (Thera-Plus) 5 ml DAILY GTB Last administered on 07/19/16 09:34 ; Admin Dose 5 ML; Start 06/07/16 at 09:00 Tamsulosin HCl (Flomax) 0.4 mg HS PO Last administered on 07/18/16 22:21; Admin Dose 0.4 MG; Start 06/07/16 at 21:00 Mupirocin (Bactroban) 1 applic BID TOP Last administered on 07/19/16 09:36; Admin Dose 1 APPLIC; Start 06/07/16 at 21:00 Metoclopramide HCl (Reglan) 10 mg Q6H PRN IV NAUSEA AND/OR VOMITING Last administered on 06/08/16 18:00; Admin Dose 10 MG; Start 06/08/16 at 09:30 Lorazepam (Ativan) 1 mg Q6H PRN IV AGITATION/ANXIETY Last administered on 23:15; Admin Dose 1 MG; Start 06/09/16 at 13:30 Citric Acid/ Sodium Citrate (Bicitra) 30 ml BID PO Last administered on 09:34; Admin Dose 30 ML; Start 06/26/16 at 21:00 Potassium Chloride (Potassium Chloride Pwd/Soln) 40 meq DAILY GTB Last administered on 07/19/16 09:35; Admin Dose 40 MEQ; Start 06/30/16 at 10:30 Atenolol (Tenormin) 12.5 mg BID PO Last administered on 07/19/16 09:34; Admin Dose 12.5 MG; Start 06/30/16 at 23:00 Diagnostic Test (Pha) (Accu-Chek) 1 ea Q12 XX Last administered on 07/19/16 09 :36; Admin Dose 1 EA; Start 07/05/16 at 09:00 Lansoprazole (Prevacid) 30 mg DAILY@06 GTB Last administered on 07/19/16 05:36 ; Admin Dose 30 MG; Start 07/06/16 at 06:00 Furosemide (Lasix) 20 mg DAILY IV Last administered on 07/19/16 09:34; Admin Dose 20 MG; Start 07/07/16 at 09:00 Calcium Carbonate (Tums) 1,000 mg BID PO Last administered on 07/19/16 09:34; Admin Dose 1,000 MG; Start 07/06/16 at 21:00 Cholecalciferol (Vitamin D) 800 units DAILY PO Last administered on 07/19/16 09:35; Admin Dose 800 UNITS; Start 07/07/16 at 09:00 Midodrine 5 mg 5 mg TID@,,17 GTB Last administered on 07/15/16 17:19; Admin Dose 5 MG; Start 07/07/16 at 17:00 Meropenem (Merrem 500 Mg/ 100 ml (Pmx)) 100 ml @ 200 mls/hr Q8 IVPB Last administered on 07/19/16 05:37; Admin Dose 200 MLS/HR; Start 07/11/16 at 14:00 Linezolid (Zyvox) 600 mg BID PO Last administered on 07/19/16 09:35; Admin Dose 600 MG; Start 07/12/16 at 12:00 JOSE G CUNNINGHAM NP July 19, 2016 12:19
[2016-07-19] MEDS ORDERED: VANCOMYCIN IV PER PHARMACY XX SCH (12:30)
[2016-07-19] MEDS ORDERED: VANCOMYCIN 1.5 GM in SOD CHLORIDE 0.9% 250 ML IVPB SCH (14:00)
--- NOTE | 2016-07-19 15:25 | CONS ---
Date/Time of Note Date/Time of Note DATE: 07/19/16 TIME: 15:21 Assessment/Plan Assessment/Plan Chief Complaint/Hosp Course IMp: 1.CHF-systolic acute on chonic-reasonable volume status at this time 2.Resp failure s/p trach on vent 3.Cardiomyopathy-LVEF 25-30% 4.HTN-with recurrent episodes of Hotn on midodrine as necessary with overall improvement 5.PPM-s/p interrogation with proper function-episodes of SVT and short episode VT 06/09/16/good battery life 6.Leukocytosis-persistent 7.Tachycardia-PAF/AFL rate controlled 8.Perforated viscous s/p IR drain now removed with ongoing leukocytosis 9. Renal insuff-? overdiuresis-now improved and back to baseline 10. Wide complex tachy-NSVT today 06/30/16. NO recurrence Recc: -Tele -Continue abx's and f/u cx data and treat fevers -Continue atenolol as tolerated/possible only -Continue asa/low dose lovenox -Continue abx's/f/u cx data -Palliative care following -Now on midodrine BP support as necessary following hold parameters with proabable ability to D/C if BP remains stable -S/P dose IVP digoxin with improvement in HR control -Continue low dose gentle lasix diuresis and follow volume status closely Problems: Consultation Date/Type/Reason Admit Date/Time Jun 06, 2016 at 08:08 Initial Consult Date 06/07/16 Type of Consultation: Cardiology Reason for Consultation AFL/cardiomyopathy Referring Provider: HOLLI LINDER MD Exam/Review of Systems Vital Signs Vitals Vital Signs Date Time Temp Pulse Resp B/P Pulse Ox O2 Delivery O2 Flow Rate FiO2 07/19/16 13:35 67 23 99 30 07/19/16 11:33 98.6 158/67 Intake and Output 07/18/16 07/18/16 07/19/16 15:00 23:00 07:00 Intake Total 1180 ml 1075 ml Output Total 1950 ml 1050 ml Balance -770 ml 25 ml Exam Review of Systems: CONSTITUTIONAL: No fevers, chills. PULMONARY: No sob CARDIOVASCULAR: No chest pain/palpitations GASTROINTESTINAL: No nausea/vomiting. GENITOURINARY: No hematuria/dysuria. MUSCULOSKELETAL: No myagias/arthalgias. PSYCHIATRIC: The patient denies depression. NEUROLOGIC: encephalopathic Constitutional: other (encephalopathic) Psych: no complaints Head: normocephalic ENMT: mucosa pink and moist Neck: jvd (9 cm water), supple Respiratory: diminished breath sounds Cardiovascular: irregular rhythm Gastrointestinal: non-tender, soft Musculoskeletal: muscle tone (normal) Extremities: edema (trace/B) Neurological: other (encephalopathic) Results Result Diagram: 07/16/16 0540 07/16/16 0540 Results 24 hrs Laboratory Tests Test 07/18/16 22:19 07/19/16 10:09 Bedside Glucose 111 129 Medications Medications Current Medications Naloxone HCl (Narcan) 0.4 mg Q3M PRN IV DECREASED REPIRATORY RATE; Start at 10:30 Ondansetron HCl (Zofran Inj) 4 mg Q6H PRN IV NAUSEA AND/OR VOMITING; Start 01/12 at 10:30 Nitroglycerin (Nitroglycerin (Sl Tab) 0.4 Mg) 1 tab Q5M PRN SL CHEST PAIN; Start 06/06/16 at 10:30 Acetaminophen (Tylenol Liquid) 650 mg Q6H PRN PO PAIN LEVEL 1-3 OR FEVER Last administered on 07/17/16 21:25; Admin Dose 650 MG; Start 06/06/16 at 10:30 Morphine Sulfate (morphine) 2 mg Q4H PRN IV PAIN LEVEL 7-10 Last administered on 06/15/16 00:22; Admin Dose 2 MG; Start 06/06/16 at 10:30 Docusate Sodium (Colace) 100 mg Q12H PRN PO CONSTIPATION; Start 06/06/16 at 10: 30 Magnesium Hydroxide (Milk Of Mag) 30 ml DAILY PRN PO CONSTIPATION; Start at 10:30 Bisacodyl (Dulcolax) 5 mg DAILY PRN PO CONSTIPATION; Start 06/06/16 at 10:30 Collagenase (Santyl) 1 applic DAILY TOP Last administered on 07/19/16 09:36; Admin Dose 1 APPLIC; Start 06/07/16 at 09:00 Collagenase (Santyl) 1 applic PRN PRN TOP WOUND CARE Last administered on 05:56; Admin Dose 1 APPLIC; Start 06/06/16 at 16:00 IV Flush (NS 10 ml) 10 ml PRN PRN IV IV PROTOCOL; Start 06/06/16 at 18:30 Ascorbic Acid (Vitamin C) 500 mg DAILY GTB Last administered on 07/19/16 09:34 ; Admin Dose 500 MG; Start 06/07/16 at 09:00 Aspirin (Aspirin) 325 mg DAILY GTB Last administered on 07/19/16 09:35; Admin Dose 325 MG; Start 06/07/16 at 09:00 Multivitamins (Thera-Plus) 5 ml DAILY GTB Last administered on 07/19/16 09:34 ; Admin Dose 5 ML; Start 06/07/16 at 09:00 Tamsulosin HCl (Flomax) 0.4 mg HS PO Last administered on 07/18/16 22:21; Admin Dose 0.4 MG; Start 06/07/16 at 21:00 Mupirocin (Bactroban) 1 applic BID TOP Last administered on 07/19/16 09:36; Admin Dose 1 APPLIC; Start 06/07/16 at 21:00 Metoclopramide HCl (Reglan) 10 mg Q6H PRN IV NAUSEA AND/OR VOMITING Last administered on 06/08/16 18:00; Admin Dose 10 MG; Start 06/08/16 at 09:30 Lorazepam (Ativan) 1 mg Q6H PRN IV AGITATION/ANXIETY Last administered on 23:15; Admin Dose 1 MG; Start 06/09/16 at 13:30 Citric Acid/ Sodium Citrate (Bicitra) 30 ml BID PO Last administered on 09:34; Admin Dose 30 ML; Start 06/26/16 at 21:00 Potassium Chloride (Potassium Chloride Pwd/Soln) 40 meq DAILY GTB Last administered on 07/19/16 09:35; Admin Dose 40 MEQ; Start 06/30/16 at 10:30 Atenolol (Tenormin) 12.5 mg BID PO Last administered on 07/19/16 09:34; Admin Dose 12.5 MG; Start 06/30/16 at 23:00 Diagnostic Test (Pha) (Accu-Chek) 1 ea Q12 XX Last administered on 07/19/16 09 :36; Admin Dose 1 EA; Start 07/05/16 at 09:00 Lansoprazole (Prevacid) 30 mg DAILY@06 GTB Last administered on 07/19/16 05:36 ; Admin Dose 30 MG; Start 07/06/16 at 06:00 Furosemide (Lasix) 20 mg DAILY IV Last administered on 07/19/16 09:34; Admin Dose 20 MG; Start 07/07/16 at 09:00 Calcium Carbonate (Tums) 1,000 mg BID PO Last administered on 07/19/16 09:34; Admin Dose 1,000 MG; Start 07/06/16 at 21:00 Cholecalciferol (Vitamin D) 800 units DAILY PO Last administered on 07/19/16 09:35; Admin Dose 800 UNITS; Start 07/07/16 at 09:00 Midodrine 5 mg 5 mg TID@,, GTB Last administered on 07/15/16 17:19; Admin Dose 5 MG; Start 07/07/16 at 17:00 Meropenem 100 ml @ 200 mls/hr Q8 IVPB Last administered on 07/19/16 05:37; Admin Dose 200 MLS/HR; Start 07/11/16 at 14:00 Vancomycin HCl 1.5 gm/Sodium Chloride 250 ml @ 83.333 mls/ hr Q24H IVPB ; Start 07/19/16 at 14:00; Stop 07/19/16 at 23:56 Vancomycin HCl/ Sodium Chloride (Vancocin/NS) 250 ml @ 83.333 mls/ hr Q24H IVPB ; Start 07/20/16 at 14:00 JAYA GORE July 19, 2016 15:25
--- NOTE | 2016-07-19 16:50 | CONS ---
Date/Time of Note Date/Time of Note DATE: 07/19/16 TIME: 16:49 Consult Date/Type/Reason Admit Date/Time Jun 06, 2016 at 08:08 Initial Consult Date 06/07/16 Type of Consultation: Pulmonary ICU Ordering Provider: HOLLI LINDER MD Subjective No significant changes overnight Objective Vital Signs Date Time Temp Pulse Resp B/P Pulse Ox O2 Delivery O2 Flow Rate FiO2 07/19/16 15:41 97.5 69 20 170/71 95 07/19/16 13:35 30 Intake and Output 07/18/16 07/18/16 07/19/16 15:00 23:00 07:00 Intake Total 1180 ml 1075 ml Output Total 1950 ml 1050 ml Balance -770 ml 25 ml Exam PHYSICAL EXAMINATION GENERAL: Elderly gentleman on mechanical ventilation, VITAL SIGNS: see below. HEENT: Pupils equal, round, and reactive to light. Tracheostomy site clean and intact. CARDIAC: S1, S2, 1/6 systolic ejection murmur CHEST: Diminished air entry bilaterally. ABDOMEN: Mildly distended. Bowel sounds present no guarding or rebound EXTREMITIES: No cyanosis, clubbing edema +1 NEUROLOGIC: Generalized weakness Results/Medications Result Diagram: 07/16/16 0540 07/16/16 0540 Results 24 hrs Laboratory Tests Test 07/18/16 22:19 07/19/16 10:09 Bedside Glucose 111 129 Medications Current Medications Naloxone HCl (Narcan) 0.4 mg Q3M PRN IV DECREASED REPIRATORY RATE; Start at 10:30 Ondansetron HCl (Zofran Inj) 4 mg Q6H PRN IV NAUSEA AND/OR VOMITING; Start 01/12 at 10:30 Nitroglycerin (Nitroglycerin (Sl Tab) 0.4 Mg) 1 tab Q5M PRN SL CHEST PAIN; Start 06/06/16 at 10:30 Acetaminophen (Tylenol Liquid) 650 mg Q6H PRN PO PAIN LEVEL 1-3 OR FEVER Last administered on 07/17/16 21:25; Admin Dose 650 MG; Start 06/06/16 at 10:30 Morphine Sulfate (morphine) 2 mg Q4H PRN IV PAIN LEVEL 7-10 Last administered on 06/15/16 00:22; Admin Dose 2 MG; Start 06/06/16 at 10:30 Docusate Sodium (Colace) 100 mg Q12H PRN PO CONSTIPATION; Start 06/06/16 at 10: 30 Magnesium Hydroxide (Milk Of Mag) 30 ml DAILY PRN PO CONSTIPATION; Start at 10:30 Bisacodyl (Dulcolax) 5 mg DAILY PRN PO CONSTIPATION; Start 06/06/16 at 10:30 Collagenase (Santyl) 1 applic DAILY TOP Last administered on 07/19/16 09:36; Admin Dose 1 APPLIC; Start 06/07/16 at 09:00 Collagenase (Santyl) 1 applic PRN PRN TOP WOUND CARE Last administered on 05:56; Admin Dose 1 APPLIC; Start 06/06/16 at 16:00 IV Flush (NS 10 ml) 10 ml PRN PRN IV IV PROTOCOL; Start 06/06/16 at 18:30 Ascorbic Acid (Vitamin C) 500 mg DAILY GTB Last administered on 07/19/16 09:34 ; Admin Dose 500 MG; Start 06/07/16 at 09:00 Aspirin (Aspirin) 325 mg DAILY GTB Last administered on 07/19/16 09:35; Admin Dose 325 MG; Start 06/07/16 at 09:00 Multivitamins (Thera-Plus) 5 ml DAILY GTB Last administered on 07/19/16 09:34 ; Admin Dose 5 ML; Start 06/07/16 at 09:00 Tamsulosin HCl (Flomax) 0.4 mg HS PO Last administered on 07/18/16 22:21; Admin Dose 0.4 MG; Start 06/07/16 at 21:00 Mupirocin (Bactroban) 1 applic BID TOP Last administered on 07/19/16 09:36; Admin Dose 1 APPLIC; Start 06/07/16 at 21:00 Metoclopramide HCl (Reglan) 10 mg Q6H PRN IV NAUSEA AND/OR VOMITING Last administered on 06/08/16 18:00; Admin Dose 10 MG; Start 06/08/16 at 09:30 Lorazepam (Ativan) 1 mg Q6H PRN IV AGITATION/ANXIETY Last administered on 23:15; Admin Dose 1 MG; Start 06/09/16 at 13:30 Citric Acid/ Sodium Citrate (Bicitra) 30 ml BID PO Last administered on 09:34; Admin Dose 30 ML; Start 06/26/16 at 21:00 Potassium Chloride (Potassium Chloride Pwd/Soln) 40 meq DAILY GTB Last administered on 07/19/16 09:35; Admin Dose 40 MEQ; Start 06/30/16 at 10:30 Atenolol (Tenormin) 12.5 mg BID PO Last administered on 07/19/16 09:34; Admin Dose 12.5 MG; Start 06/30/16 at 23:00 Diagnostic Test (Pha) (Accu-Chek) 1 ea Q12 XX Last administered on 07/19/16 09 :36; Admin Dose 1 EA; Start 07/05/16 at 09:00 Lansoprazole (Prevacid) 30 mg DAILY@06 GTB Last administered on 07/19/16 05:36 ; Admin Dose 30 MG; Start 07/06/16 at 06:00 Furosemide (Lasix) 20 mg DAILY IV Last administered on 07/19/16 09:34; Admin Dose 20 MG; Start 07/07/16 at 09:00 Calcium Carbonate (Tums) 1,000 mg BID PO Last administered on 07/19/16 09:34; Admin Dose 1,000 MG; Start 07/06/16 at 21:00 Cholecalciferol (Vitamin D) 800 units DAILY PO Last administered on 07/19/16 09:35; Admin Dose 800 UNITS; Start 07/07/16 at 09:00 Midodrine 5 mg 5 mg TID@,,17 GTB Last administered on 07/15/16 17:19; Admin Dose 5 MG; Start 07/07/16 at 17:00 Meropenem 100 ml @ 200 mls/hr Q8 IVPB Last administered on 07/19/16 15:49; Admin Dose 200 MLS/HR; Start 07/11/16 at 14:00 Vancomycin HCl 1.5 gm/Sodium Chloride 250 ml @ 83.333 mls/ hr Q24H IVPB Last administered on 07/19/16 15:49; Admin Dose 83.333 MLS/HR; Start 07/19/16 at 14: 00; Stop 07/19/16 at 23:56 Vancomycin HCl/ Sodium Chloride (Vancocin/NS) 250 ml @ 83.333 mls/ hr Q24H IVPB ; Start 07/20/16 at 14:00 Assessment/Plan Chief Complaint/Hosp Course assessment 1. Vent dependent respiratory failure with evidence of healthcare associated pneumonia 2. Status post bowel perforation with drainage, persistent leukocytosis 3. Ongoing sepsis as above 4. Chronic atrial fibrillation 5. Decubitus ulcers 6. Dysphagia with G-tube 7. Chronic encephalopathy Plan 1. Continue mechanical ventilation 2. Continue broad-spectrum antibiotics per infectious diseases 3. Surgical recommendations regarding abdominal drains 4. Palliative care consult appreciated, bioethics meeting notes reviewed. 5. DVT and GI prophylaxis Disposition Discharge to intermediate facility if okay with family Problems: KAVON TROY MD, [facility] July 19, 2016 16:50
[2016-07-19] MEDS: morphine 2 MG INJ IV PRN (18:40)
--- NOTE | 2016-07-19 19:21 | PN ---
Date/Time of Note Date/Time of Note DATE: 07/19/16 TIME: 19:19 Assessment/Plan Lines/Catheters IV Catheter Type (from [facility]): Peripheral IV Alfonso in Place (from [facility]): Yes Assessment/Plan Chief Complaint/Hosp Course 1. Contained perforated viscous s/p IR drain 06/11. Cx noted. Leukocytosis resolved. Tube feeds. Bowel function. Drain dcd. s/p Abx. Persistent leukocytosis. Chemical code. 2. Pneumonia -pulmonary toilette -abx 3. Sepsis, recent. Leukocytosis -abx -as above 4. Sacral decubitus ulcer -off load -nutrition optimization -vit c -local care 5. Chronic AFib -rate control -optimize electrolytes -tx infections 6. Anemia -tx prn 7. Hypoalbuminemia -eventual nutritional optimization 8. CHF -judicious fluid management -cardiac optimization Thank you, Problems: Subjective 24 Hr Interval Summary Leukocytosis improving. No f/c. No cough. No sz. No rashes. No bloating. No vomiting. No bleeding. Exam/Review of Systems Vital Signs Vitals Vital Signs Date Time Temp Pulse Resp B/P Pulse Ox O2 Delivery O2 Flow Rate FiO2 07/19/16 17:55 76 24 99 30 07/19/16 15:41 97.5 170/71 Intake and Output 07/18/16 07/18/16 07/19/16 15:00 23:00 07:00 Intake Total 1180 ml 1075 ml Output Total 1950 ml 1050 ml Balance -770 ml 25 ml Exam Free Text/Dictation Constitutional: No distress, No oriented Psych: confusion, No anxiety Head: atraumatic, normocephalic Eyes: PERRL, nl conjunctiva, No icteric ENMT: mucosa pink and moist, nl external ears & nose, nl lips & teeth Neck: jvd (min), non-tender Respiratory: No congested cough, No labored breathing Cardiovascular: No edema, No regular rate and rhythm Gastrointestinal: soft, PEGNo distended, No firm, No rebound or guarding Musculoskeletal: No joint tenderness, No nl gait and stance Extremities: No calf tenderness, No cyanosis Neurological: No nl mental status, No nl speech, No nl strength Skin: nl turgor, rash or lesions (Sacral and LE decubitus ulcerations), No diaphoresis Lymph: nl lymph nodes Results Result Diagram: 07/16/16 0540 07/16/16 0540 DAREK AHMADI MD July 19, 2016 19:21
[2016-07-19] MEDS: TAMSULOSIN (SR) 0.4 MG CAP PO SCH (20:50)
--- NOTE | 2016-07-19 23:59 | PN ---
Date/Time of Note Date/Time of Note DATE: 07/19/16 TIME: 23:58 Assessment/Plan VTE Prophylaxis VTE Prophylaxis Intervention: other Lines/Catheters IV Catheter Type (from Nrsg): Peripheral IV Urinary Cath still in place: Yes Reason Cath still needed: other (indicate) Assessment/Plan Chief Complaint/Hosp Course IMPRESSION: 1. Sepsis 2. Pneumonia. aspiration 3. Leukocytosis. sacral decubitus better 4. Hematuria. better 5. Lactic acidosis. better 6. Respiratory failure. 7. Gastrostomy tube placement. 8. Anemia. 9. Atrial fibrillation. 10. History of congestive heart failure with decreased ejection fraction. 11. vdrf 12. History of paroxysmal atrial fibrillation. 13. The patient now has decubitus. 14 uti 15 polymirobial sepsis 16 pul edema BETTER 17 no gi bleed 18 hypokalemia better 19 diarrhea cdiff neg 20 HYPOCALCEMEIA 21 WBC SCAN SEEN 22 sys chf plan per id iv fluid poor prognosis Problems: Subjective 24 Hr Interval Summary Gastrointestinal: no complaints Genitourinary: no complaints Exam/Review of Systems Vital Signs Vitals Vital Signs Date Time Temp Pulse Resp B/P Pulse Ox O2 Delivery O2 Flow Rate FiO2 07/19/16 20:21 73 07/19/16 20:03 23 98 30 07/19/16 19:56 98.9 133/63 Intake and Output 07/18/16 07/18/16 07/19/16 15:00 23:00 07:00 Intake Total 1180 ml 1075 ml Output Total 1950 ml 1050 ml Balance -770 ml 25 ml Exam Respiratory: clear to auscultation Cardiovascular: regular rate and rhythm Gastrointestinal: soft Results Result Diagram: 07/16/16 0540 07/16/16 0540 Results 24 hrs Laboratory Tests Test 07/19/16 10:09 07/19/16 20:52 Bedside Glucose 129 102 Medications Medications Current Medications Naloxone HCl (Narcan) 0.4 mg Q3M PRN IV DECREASED REPIRATORY RATE; Start at 10:30 Ondansetron HCl (Zofran Inj) 4 mg Q6H PRN IV NAUSEA AND/OR VOMITING; Start 01/12 at 10:30 Nitroglycerin (Nitroglycerin (Sl Tab) 0.4 Mg) 1 tab Q5M PRN SL CHEST PAIN; Start 06/06/16 at 10:30 Acetaminophen (Tylenol Liquid) 650 mg Q6H PRN PO PAIN LEVEL 1-3 OR FEVER Last administered on 07/17/16 21:25; Admin Dose 650 MG; Start 06/06/16 at 10:30 Morphine Sulfate (morphine) 2 mg Q4H PRN IV PAIN LEVEL 7-10 Last administered on 07/19/16 18:40; Admin Dose 2 MG; Start 06/06/16 at 10:30 Docusate Sodium (Colace) 100 mg Q12H PRN PO CONSTIPATION; Start 06/06/16 at 10: 30 Magnesium Hydroxide (Milk Of Mag) 30 ml DAILY PRN PO CONSTIPATION; Start at 10:30 Bisacodyl (Dulcolax) 5 mg DAILY PRN PO CONSTIPATION; Start 06/06/16 at 10:30 Collagenase (Santyl) 1 applic DAILY TOP Last administered on 07/19/16 09:36; Admin Dose 1 APPLIC; Start 06/07/16 at 09:00 Collagenase (Santyl) 1 applic PRN PRN TOP WOUND CARE Last administered on 05:56; Admin Dose 1 APPLIC; Start 06/06/16 at 16:00 IV Flush (NS 10 ml) 10 ml PRN PRN IV IV PROTOCOL; Start 06/06/16 at 18:30 Ascorbic Acid (Vitamin C) 500 mg DAILY GTB Last administered on 07/19/16 09:34 ; Admin Dose 500 MG; Start 06/07/16 at 09:00 Aspirin (Aspirin) 325 mg DAILY GTB Last administered on 07/19/16 09:35; Admin Dose 325 MG; Start 06/07/16 at 09:00 Multivitamins (Thera-Plus) 5 ml DAILY GTB Last administered on 07/19/16 09:34 ; Admin Dose 5 ML; Start 06/07/16 at 09:00 Tamsulosin HCl (Flomax) 0.4 mg HS PO Last administered on 07/19/16 20:50; Admin Dose 0.4 MG; Start 06/07/16 at 21:00 Mupirocin (Bactroban) 1 applic BID TOP Last administered on 07/19/16 20:50; Admin Dose 1 APPLIC; Start 06/07/16 at 21:00 Metoclopramide HCl (Reglan) 10 mg Q6H PRN IV NAUSEA AND/OR VOMITING Last administered on 06/08/16 18:00; Admin Dose 10 MG; Start 06/08/16 at 09:30 Lorazepam (Ativan) 1 mg Q6H PRN IV AGITATION/ANXIETY Last administered on 23:15; Admin Dose 1 MG; Start 06/09/16 at 13:30 Citric Acid/ Sodium Citrate (Bicitra) 30 ml BID PO Last administered on 20:50; Admin Dose 30 ML; Start 06/26/16 at 21:00 Potassium Chloride (Potassium Chloride Pwd/Soln) 40 meq DAILY GTB Last administered on 07/19/16 09:35; Admin Dose 40 MEQ; Start 06/30/16 at 10:30 Atenolol (Tenormin) 12.5 mg BID PO Last administered on 07/19/16 09:34; Admin Dose 12.5 MG; Start 06/30/16 at 23:00 Diagnostic Test (Pha) (Accu-Chek) 1 ea Q12 XX Last administered on 07/19/16 20 :53; Admin Dose 1 EA; Start 07/05/16 at 09:00 Lansoprazole (Prevacid) 30 mg DAILY@06 GTB Last administered on 07/19/16 05:36 ; Admin Dose 30 MG; Start 07/06/16 at 06:00 Furosemide (Lasix) 20 mg DAILY IV Last administered on 07/19/16 09:34; Admin Dose 20 MG; Start 07/07/16 at 09:00 Calcium Carbonate (Tums) 1,000 mg BID PO Last administered on 07/19/16 20:50; Admin Dose 1,000 MG; Start 07/06/16 at 21:00 Cholecalciferol (Vitamin D) 800 units DAILY PO Last administered on 07/19/16 09:35; Admin Dose 800 UNITS; Start 07/07/16 at 09:00 Midodrine 5 mg 5 mg TID@ GTB Last administered on 07/15/16 17:19; Admin Dose 5 MG; Start 07/07/16 at 17:00 Meropenem 100 ml @ 200 mls/hr Q8 IVPB Last administered on 07/19/16 21:01; Admin Dose 200 MLS/HR; Start 07/11/16 at 14:00 Vancomycin HCl/ Sodium Chloride (Vancocin/NS) 250 ml @ 83.333 mls/ hr Q24H IVPB ; Start 07/20/16 at 14:00 HOLLI LINDER MD July 19, 2016 23:59
[2016-07-20] VITALS (24 sets, daily range): BP systolic 99–126; BP diastolic 51–60; PULSE 60–88; RESP 16–29
[2016-07-20] MEDS: IPRATROPIUM (HFA) 12.9 GM INHALER INH SCH ×6 (01:00→19:31)
[2016-07-20] MEDS: ALBUTEROL 18 GM INHALER INH SCH ×6 (01:00→19:31)
[2016-07-20] MEDS: LANSOPRAZOLE 30 MG CAP GTB SCH (05:49)
[2016-07-20] MEDS: MEROPENEM 500 MG/100 ML (PMX) 100 ML IVPB SCH ×3 (05:49→21:54)
[2016-07-20] MEDS: CALCIUM CARBONATE 500 MG CHEW TAB PO SCH ×2 (09:46→21:55)
[2016-07-20] MEDS: POTASSIUM CHLORIDE 20 MEQ POWDER FOR ORAL SOLN GTB SCH (09:46)
[2016-07-20] MEDS: ASCORBIC ACID 500 MG TAB GTB SCH (09:47)
[2016-07-20] MEDS: ASPIRIN 325 MG TAB GTB SCH (09:47)
[2016-07-20] MEDS: CHOLECALCIFEROL 400 UNITS TAB PO SCH (09:47)
[2016-07-20] MEDS: ATENOLOL 25 MG TAB PO SCH ×2 (09:47→21:00)
[2016-07-20] MEDS: MUPIROCIN 2% 22 GM OINT TOP SCH ×2 (09:48→21:55)
[2016-07-20] MEDS: MULTIVITAMINS 5 ML CUP GTB SCH (09:48)
[2016-07-20] MEDS: CITRIC ACID/SODIUM CITRATE 15 ML CUP PO SCH ×2 (09:48→21:55)
[2016-07-20] MEDS: FUROSEMIDE 20 MG INJ IV SCH (09:48)
[2016-07-20] MEDS: COLLAGENASE 30 GM TUBE TOP SCH (09:49)
[2016-07-20] MEDS: ACCU-CHEK XX SCH ×2 (09:49→21:55)
--- NOTE | 2016-07-20 10:19 | PN ---
DATE: 07/20/2016 PALLIATIVE CARE PROGRESS NOTE I have had a conversation with the patient's son this morning. My understanding is Dr. Ramirez will be speaking to him at 1:30 today. To review, there was a bioethics meeting and the communication issue s were addressed with the patient's son. He requested to have a more in detailed conversation with Dr. Ramirez. The family member's understanding of underlying medical problems is very clear. Caregive r concerns have been addressed also. PHYSICAL EXAMINATION: He is afebrile. Vital signs are stable. He does respond to tactile stimulati on and verbal stimulation. He does shake his head yes or no when it comes to pain control, if he is doing okay, yes or no and he does some simple movements. The goals of care have been discussed with patient's family. Estimated prognosis and overall genera l condition with palliative performance scale, which is not overly helpful, but I do not believe thi s gentleman will live longer than the next 3 to 6 months, probably developing another serious infect ion requiring hospitalization. He is a CHEMICAL CODE ONLY. We will continue to follow him. Dictated By: HENRY GUPTA MD LP/TRACY Conf#: [id number] DID#: [id number]
[2016-07-20] MEDS: COLISTIMETHATE (25 MG/ML INHAL SYG) NEB SCH ×2 (10:21→19:32)
--- NOTE | 2016-07-20 10:33 | CONS ---
Date/Time of Note Date/Time of Note DATE: 07/20/16 TIME: 10:32 Consult Date/Type/Reason Admit Date/Time Jun 06, 2016 at 08:08 Initial Consult Date 06/07/16 Type of Consultation: Pulmonary ICU Ordering Provider: HOLLI LINDER MD Subjective Patient comfortable this morning no new. Patient's son and palliative care physician at bedside. Objective Vital Signs Date Time Temp Pulse Resp B/P Pulse Ox O2 Delivery O2 Flow Rate FiO2 07/20/16 09:51 89 17 97 30 07/20/16 07:45 98.5 126/60 Intake and Output 07/19/16 07/19/16 07/20/16 15:00 23:00 07:00 Intake Total 1080 ml 1075 ml Output Total 1600 ml 1150 ml Balance -520 ml -75 ml Exam PHYSICAL EXAMINATION GENERAL: Elderly gentleman on mechanical ventilation, VITAL SIGNS: see below. HEENT: Pupils equal, round, and reactive to light. Tracheostomy site clean and intact. CARDIAC: S1, S2, 1/6 systolic ejection murmur CHEST: Diminished air entry bilaterally. ABDOMEN: Mildly distended. Bowel sounds present no guarding or rebound EXTREMITIES: No cyanosis, clubbing edema +1 NEUROLOGIC: Generalized weakness Results/Medications Result Diagram: 07/16/16 0540 07/16/16 0540 Results 24 hrs Laboratory Tests Test 07/19/16 20:52 07/20/16 09:44 Bedside Glucose 102 122 Medications Current Medications Naloxone HCl (Narcan) 0.4 mg Q3M PRN IV DECREASED REPIRATORY RATE; Start at 10:30 Ondansetron HCl (Zofran Inj) 4 mg Q6H PRN IV NAUSEA AND/OR VOMITING; Start 01/12 at 10:30 Nitroglycerin (Nitroglycerin (Sl Tab) 0.4 Mg) 1 tab Q5M PRN SL CHEST PAIN; Start 06/06/16 at 10:30 Acetaminophen (Tylenol Liquid) 650 mg Q6H PRN PO PAIN LEVEL 1-3 OR FEVER Last administered on 07/17/16 21:25; Admin Dose 650 MG; Start 06/06/16 at 10:30 Morphine Sulfate (morphine) 2 mg Q4H PRN IV PAIN LEVEL 7-10 Last administered on 07/19/16 18:40; Admin Dose 2 MG; Start 06/06/16 at 10:30 Docusate Sodium (Colace) 100 mg Q12H PRN PO CONSTIPATION; Start 06/06/16 at 10: 30 Magnesium Hydroxide (Milk Of Mag) 30 ml DAILY PRN PO CONSTIPATION; Start at 10:30 Bisacodyl (Dulcolax) 5 mg DAILY PRN PO CONSTIPATION; Start 06/06/16 at 10:30 Collagenase (Santyl) 1 applic DAILY TOP Last administered on 07/20/16 09:49; Admin Dose 1 APPLIC; Start 06/07/16 at 09:00 Collagenase (Santyl) 1 applic PRN PRN TOP WOUND CARE Last administered on 05:56; Admin Dose 1 APPLIC; Start 06/06/16 at 16:00 IV Flush (NS 10 ml) 10 ml PRN PRN IV IV PROTOCOL; Start 06/06/16 at 18:30 Ascorbic Acid (Vitamin C) 500 mg DAILY GTB Last administered on 07/20/16 09:47 ; Admin Dose 500 MG; Start 06/07/16 at 09:00 Aspirin (Aspirin) 325 mg DAILY GTB Last administered on 07/20/16 09:47; Admin Dose 325 MG; Start 06/07/16 at 09:00 Multivitamins (Thera-Plus) 5 ml DAILY GTB Last administered on 07/20/16 09:48 ; Admin Dose 5 ML; Start 06/07/16 at 09:00 Tamsulosin HCl (Flomax) 0.4 mg HS PO Last administered on 07/19/16 20:50; Admin Dose 0.4 MG; Start 06/07/16 at 21:00 Mupirocin (Bactroban) 1 applic BID TOP Last administered on 07/20/16 09:48; Admin Dose 1 APPLIC; Start 06/07/16 at 21:00 Metoclopramide HCl (Reglan) 10 mg Q6H PRN IV NAUSEA AND/OR VOMITING Last administered on 06/08/16 18:00; Admin Dose 10 MG; Start 06/08/16 at 09:30 Lorazepam (Ativan) 1 mg Q6H PRN IV AGITATION/ANXIETY Last administered on 23:15; Admin Dose 1 MG; Start 06/09/16 at 13:30 Citric Acid/ Sodium Citrate (Bicitra) 30 ml BID PO Last administered on 09:48; Admin Dose 30 ML; Start 06/26/16 at 21:00 Potassium Chloride (Potassium Chloride Pwd/Soln) 40 meq DAILY GTB Last administered on 07/20/16 09:46; Admin Dose 40 MEQ; Start 06/30/16 at 10:30 Atenolol (Tenormin) 12.5 mg BID PO Last administered on 07/20/16 09:47; Admin Dose 12.5 MG; Start 06/30/16 at 23:00 Diagnostic Test (Pha) (Accu-Chek) 1 ea Q12 XX Last administered on 07/20/16 09 :49; Admin Dose 1 EA; Start 07/05/16 at 09:00 Lansoprazole (Prevacid) 30 mg DAILY@06 GTB Last administered on 07/20/16 05:49 ; Admin Dose 30 MG; Start 07/06/16 at 06:00 Furosemide (Lasix) 20 mg DAILY IV Last administered on 07/20/16 09:48; Admin Dose 20 MG; Start 07/07/16 at 09:00 Calcium Carbonate (Tums) 1,000 mg BID PO Last administered on 07/20/16 09:46; Admin Dose 1,000 MG; Start 07/06/16 at 21:00 Cholecalciferol (Vitamin D) 800 units DAILY PO Last administered on 07/20/16 09:47; Admin Dose 800 UNITS; Start 07/07/16 at 09:00 Midodrine 5 mg 5 mg TID@,,17 GTB Last administered on 07/15/16 17:19; Admin Dose 5 MG; Start 07/07/16 at 17:00 Meropenem 100 ml @ 200 mls/hr Q8 IVPB Last administered on 07/20/16 05:49; Admin Dose 200 MLS/HR; Start 07/11/16 at 14:00 Vancomycin HCl/ Sodium Chloride (Vancocin/NS) 250 ml @ 83.333 mls/ hr Q24H IVPB ; Start 07/20/16 at 14:00 Assessment/Plan Chief Complaint/Hosp Course assessment 1. Vent dependent respiratory failure with evidence of healthcare associated pneumonia 2. Status post bowel perforation with drainage, persistent leukocytosis 3. Ongoing sepsis as above 4. Chronic atrial fibrillation 5. Decubitus ulcers 6. Dysphagia with G-tube 7. Chronic encephalopathy Plan 1. Continue mechanical ventilation 2. Continue broad-spectrum antibiotics per infectious diseases 3. Surgical recommendations regarding abdominal drains 4. Palliative care consult appreciated, bioethics meeting notes reviewed. 5. DVT and GI prophylaxis Disposition Continue current level of care Problems: KAVON TROY MD, [facility] July 20, 2016 10:33
[2016-07-20] MEDS: MIDODRINE 5 MG TAB GTB SCH ×3 (13:00→17:39)
--- NOTE | 2016-07-20 14:06 | CONS ---
Date/Time of Note Date/Time of Note DATE: 07/20/16 TIME: 14:05 Assessment/Plan Assessment/Plan Chief Complaint/Hosp Course SUBJECTIVE: No acute changes. Noncommunicative. No fevers. Looks comfortable MICROBIOLOGY: Blood culture on 07/10/2016 negative. Urine culture negative. Endotracheal aspirate grew Acinetobacter baumannii and Klebsiella pneumoniae. Wound cx + Enterococcus/Kleb ESBL/A. baumanii INDWELLINGS: Trach, PEG, Alfonso Abx: Colistin INH, Merrem, Vanco PHYSICAL EXAMINATION: GENERAL: This is a fragile, chronically ill-appearing, elderly man who is in no distress. HEENT: Head atraumatic, normocephalic. Sclerae anicteric. Buccal mucosa dry. NECK: Supple. Tracheostomy present. CHEST: Rise symmetrical. Breath sounds diminished to bases. HEART: S1, S2. ABDOMEN: Soft. Bowel tones hypoactive. EXTREMITIES: With trace edema. ASSESSMENT: 1. Systemic inflammatory response syndrome with persistent leukocytosis 2 to # 4 2. Chronic respiratory failure, status post pneumonia, with endotracheal aspirate growing multi-drug resistant organisms===> on colistin inhalation. 3. Status post intra-abdominal abscess drainage==> repeat CT + resolution. 4. Infected sacral decubitus==> cx growing multiple bacteria. 5. Atrial fibrillation. 6. Acute on chronic anemia. 7. Status post methicillin-resistant Staphylococcus aureus bacteremia and urinary tract infection on admission. PLAN: Remains stable, continue abx, local wound care/off load, f/u surgical rec-s, pending dc staff Problems: Consultation Date/Type/Reason Admit Date/Time Jun 06, 2016 at 08:08 Initial Consult Date 06/07/16 Type of Consultation: ID Referring Provider: HOLLI ILNDER MD Exam/Review of Systems Vital Signs Vitals Vital Signs Date Time Temp Pulse Resp B/P Pulse Ox O2 Delivery O2 Flow Rate FiO2 07/20/16 12:00 74 07/20/16 11:38 98.4 19 110/55 95 07/20/16 11:00 30 Intake and Output 07/19/16 07/19/16 07/20/16 15:00 23:00 07:00 Intake Total 1080 ml 1075 ml Output Total 1600 ml 1150 ml Balance -520 ml -75 ml Results Result Diagram: 07/16/16 0540 07/16/16 0540 Results 24 hrs Laboratory Tests Test 07/19/16 20:52 07/20/16 09:44 Bedside Glucose 102 122 Medications Medications Current Medications Naloxone HCl (Narcan) 0.4 mg Q3M PRN IV DECREASED REPIRATORY RATE; Start at 10:30 Ondansetron HCl (Zofran Inj) 4 mg Q6H PRN IV NAUSEA AND/OR VOMITING; Start 01/12 at 10:30 Nitroglycerin (Nitroglycerin (Sl Tab) 0.4 Mg) 1 tab Q5M PRN SL CHEST PAIN; Start 06/06/16 at 10:30 Acetaminophen (Tylenol Liquid) 650 mg Q6H PRN PO PAIN LEVEL 1-3 OR FEVER Last administered on 07/17/16 21:25; Admin Dose 650 MG; Start 06/06/16 at 10:30 Morphine Sulfate (morphine) 2 mg Q4H PRN IV PAIN LEVEL 7-10 Last administered on 07/19/16 18:40; Admin Dose 2 MG; Start 06/06/16 at 10:30 Docusate Sodium (Colace) 100 mg Q12H PRN PO CONSTIPATION; Start 06/06/16 at 10: 30 Magnesium Hydroxide (Milk Of Mag) 30 ml DAILY PRN PO CONSTIPATION; Start at 10:30 Bisacodyl (Dulcolax) 5 mg DAILY PRN PO CONSTIPATION; Start 06/06/16 at 10:30 Collagenase (Santyl) 1 applic DAILY TOP Last administered on 07/20/16 09:49; Admin Dose 1 APPLIC; Start 06/07/16 at 09:00 Collagenase (Santyl) 1 applic PRN PRN TOP WOUND CARE Last administered on 05:56; Admin Dose 1 APPLIC; Start 06/06/16 at 16:00 IV Flush (NS 10 ml) 10 ml PRN PRN IV IV PROTOCOL; Start 06/06/16 at 18:30 Ascorbic Acid (Vitamin C) 500 mg DAILY GTB Last administered on 07/20/16 09:47 ; Admin Dose 500 MG; Start 06/07/16 at 09:00 Aspirin (Aspirin) 325 mg DAILY GTB Last administered on 07/20/16 09:47; Admin Dose 325 MG; Start 06/07/16 at 09:00 Multivitamins (Thera-Plus) 5 ml DAILY GTB Last administered on 07/20/16 09:48 ; Admin Dose 5 ML; Start 06/07/16 at 09:00 Tamsulosin HCl (Flomax) 0.4 mg HS PO Last administered on 07/19/16 20:50; Admin Dose 0.4 MG; Start 06/07/16 at 21:00 Mupirocin (Bactroban) 1 applic BID TOP Last administered on 07/20/16 09:48; Admin Dose 1 APPLIC; Start 06/07/16 at 21:00 Metoclopramide HCl (Reglan) 10 mg Q6H PRN IV NAUSEA AND/OR VOMITING Last administered on 06/08/16 18:00; Admin Dose 10 MG; Start 06/08/16 at 09:30 Lorazepam (Ativan) 1 mg Q6H PRN IV AGITATION/ANXIETY Last administered on 23:15; Admin Dose 1 MG; Start 06/09/16 at 13:30 Citric Acid/ Sodium Citrate (Bicitra) 30 ml BID PO Last administered on 09:48; Admin Dose 30 ML; Start 06/26/16 at 21:00 Potassium Chloride (Potassium Chloride Pwd/Soln) 40 meq DAILY GTB Last administered on 07/20/16 09:46; Admin Dose 40 MEQ; Start 06/30/16 at 10:30 Atenolol (Tenormin) 12.5 mg BID PO Last administered on 07/20/16 09:47; Admin Dose 12.5 MG; Start 06/30/16 at 23:00 Diagnostic Test (Pha) (Accu-Chek) 1 ea Q12 XX Last administered on 07/20/16 09 :49; Admin Dose 1 EA; Start 07/05/16 at 09:00 Lansoprazole (Prevacid) 30 mg DAILY@06 GTB Last administered on 07/20/16 05:49 ; Admin Dose 30 MG; Start 07/06/16 at 06:00 Furosemide (Lasix) 20 mg DAILY IV Last administered on 07/20/16 09:48; Admin Dose 20 MG; Start 07/07/16 at 09:00 Calcium Carbonate (Tums) 1,000 mg BID PO Last administered on 07/20/16 09:46; Admin Dose 1,000 MG; Start 07/06/16 at 21:00 Cholecalciferol (Vitamin D) 800 units DAILY PO Last administered on 07/20/16 09:47; Admin Dose 800 UNITS; Start 07/07/16 at 09:00 Midodrine 5 mg 5 mg TID@09,13,17 GTB Last administered on 07/15/16 17:19; Admin Dose 5 MG; Start 07/07/16 at 17:00 Meropenem 100 ml @ 200 mls/hr Q8 IVPB Last administered on 07/20/16 05:49; Admin Dose 200 MLS/HR; Start 07/11/16 at 14:00 Vancomycin HCl/ Sodium Chloride (Vancocin/NS) 250 ml @ 83.333 mls/ hr Q24H IVPB ; Start 07/20/16 at 14:00 JOSE G CUNNINGHAM NP July 20, 2016 14:06
[2016-07-20] MEDS: ACETAMINOPHEN 650MG/20.3ML CUP PO PRN (14:39)
--- NOTE | 2016-07-20 15:06 | CONS ---
Date/Time of Note Date/Time of Note DATE: 07/20/16 TIME: 14:59 Assessment/Plan Assessment/Plan Chief Complaint/Hosp Course IMp: 1.CHF-systolic acute on chonic-reasonable volume status at this time 2.Resp failure s/p trach on vent 3.Cardiomyopathy-LVEF 25-30% 4.HTN-with recurrent episodes of Hotn on midodrine as necessary with overall improvement 5.PPM-s/p interrogation with proper function-episodes of SVT and short episode VT 06/09/16/good battery life 6.Leukocytosis-persistent 7.Tachycardia-PAF/AFL rate controlled 8.Perforated viscous s/p IR drain now removed with ongoing leukocytosis 9. Renal insuff-? overdiuresis-now improved and back to baseline 10. Wide complex tachy-NSVT today 06/30/16. NO recurrence 11.Leukocytosis Recc: -Tele -Continue abx's and f/u cx data and treat fevers -Continue atenolol as tolerated/possible only -Continue asa/low dose lovenox -Continue abx's/f/u cx data -Palliative care following with ongoing family discussion as recent as today with PMD as well -Now on midodrine BP support as necessary following hold parameters -S/P dose IVP digoxin with improvement in HR control -Continue low dose gentle lasix diuresis and follow volume status closely Problems: Consultation Date/Type/Reason Admit Date/Time Jun 06, 2016 at 08:08 Initial Consult Date 06/07/16 Type of Consultation: Cardiology Reason for Consultation cardiomyopathy/CHF Referring Provider: HOLLI LINDER MD Exam/Review of Systems Vital Signs Vitals Vital Signs Date Time Temp Pulse Resp B/P Pulse Ox O2 Delivery O2 Flow Rate FiO2 07/20/16 13:00 60 20 97 30 07/20/16 11:38 98.4 110/55 Intake and Output 07/19/16 07/19/16 07/20/16 15:00 23:00 07:00 Intake Total 1080 ml 1075 ml Output Total 1600 ml 1150 ml Balance -520 ml -75 ml Exam Review of Systems: CONSTITUTIONAL: No fevers, chills. PULMONARY: No sob CARDIOVASCULAR: No chest pain/palpitations GASTROINTESTINAL: No nausea/vomiting. GENITOURINARY: No hematuria/dysuria. MUSCULOSKELETAL: No myagias/arthalgias. PSYCHIATRIC: The patient denies depression. NEUROLOGIC: No weakness Constitutional: other (encephalopathic) Psych: no complaints Head: normocephalic ENMT: mucosa pink and moist Neck: jvd (9 cm water), supple Respiratory: diminished breath sounds Cardiovascular: regular rate and rhythm Gastrointestinal: non-tender, soft Musculoskeletal: muscle tone (n ormal) Extremities: edema (none) Neurological: other (No focal deficiots) Results Result Diagram: 07/16/16 0540 07/16/16 0540 Results 24 hrs Laboratory Tests Test 07/19/16 20:52 07/20/16 09:44 Bedside Glucose 102 122 Medications Medications Current Medications Naloxone HCl (Narcan) 0.4 mg Q3M PRN IV DECREASED REPIRATORY RATE; Start at 10:30 Ondansetron HCl (Zofran Inj) 4 mg Q6H PRN IV NAUSEA AND/OR VOMITING; Start 01/12 at 10:30 Nitroglycerin (Nitroglycerin (Sl Tab) 0.4 Mg) 1 tab Q5M PRN SL CHEST PAIN; Start 06/06/16 at 10:30 Acetaminophen (Tylenol Liquid) 650 mg Q6H PRN PO PAIN LEVEL 1-3 OR FEVER Last administered on 07/20/16 14:39; Admin Dose 650 MG; Start 06/06/16 at 10:30 Morphine Sulfate (morphine) 2 mg Q4H PRN IV PAIN LEVEL 7-10 Last administered on 07/19/16 18:40; Admin Dose 2 MG; Start 06/06/16 at 10:30 Docusate Sodium (Colace) 100 mg Q12H PRN PO CONSTIPATION; Start 06/06/16 at 10: 30 Magnesium Hydroxide (Milk Of Mag) 30 ml DAILY PRN PO CONSTIPATION; Start at 10:30 Bisacodyl (Dulcolax) 5 mg DAILY PRN PO CONSTIPATION; Start 06/06/16 at 10:30 Collagenase (Santyl) 1 applic DAILY TOP Last administered on 07/20/16 09:49; Admin Dose 1 APPLIC; Start 06/07/16 at 09:00 Collagenase (Santyl) 1 applic PRN PRN TOP WOUND CARE Last administered on 05:56; Admin Dose 1 APPLIC; Start 06/06/16 at 16:00 IV Flush (NS 10 ml) 10 ml PRN PRN IV IV PROTOCOL; Start 06/06/16 at 18:30 Ascorbic Acid (Vitamin C) 500 mg DAILY GTB Last administered on 07/20/16 09:47 ; Admin Dose 500 MG; Start 06/07/16 at 09:00 Aspirin (Aspirin) 325 mg DAILY GTB Last administered on 07/20/16 09:47; Admin Dose 325 MG; Start 06/07/16 at 09:00 Multivitamins (Thera-Plus) 5 ml DAILY GTB Last administered on 07/20/16 09:48 ; Admin Dose 5 ML; Start 06/07/16 at 09:00 Tamsulosin HCl (Flomax) 0.4 mg HS PO Last administered on 07/19/16 20:50; Admin Dose 0.4 MG; Start 06/07/16 at 21:00 Mupirocin (Bactroban) 1 applic BID TOP Last administered on 07/20/16 09:48; Admin Dose 1 APPLIC; Start 06/07/16 at 21:00 Metoclopramide HCl (Reglan) 10 mg Q6H PRN IV NAUSEA AND/OR VOMITING Last administered on 06/08/16 18:00; Admin Dose 10 MG; Start 06/08/16 at 09:30 Lorazepam (Ativan) 1 mg Q6H PRN IV AGITATION/ANXIETY Last administered on 23:15; Admin Dose 1 MG; Start 06/09/16 at 13:30 Citric Acid/ Sodium Citrate (Bicitra) 30 ml BID PO Last administered on 09:48; Admin Dose 30 ML; Start 06/26/16 at 21:00 Potassium Chloride (Potassium Chloride Pwd/Soln) 40 meq DAILY GTB Last administered on 07/20/16 09:46; Admin Dose 40 MEQ; Start 06/30/16 at 10:30 Atenolol (Tenormin) 12.5 mg BID PO Last administered on 07/20/16 09:47; Admin Dose 12.5 MG; Start 06/30/16 at 23:00 Diagnostic Test (Pha) (Accu-Chek) 1 ea Q12 XX Last administered on 07/20/16 09 :49; Admin Dose 1 EA; Start 07/05/16 at 09:00 Lansoprazole (Prevacid) 30 mg DAILY@06 GTB Last administered on 07/20/16 05:49 ; Admin Dose 30 MG; Start 07/06/16 at 06:00 Furosemide (Lasix) 20 mg DAILY IV Last administered on 07/20/16 09:48; Admin Dose 20 MG; Start 07/07/16 at 09:00 Calcium Carbonate (Tums) 1,000 mg BID PO Last administered on 07/20/16 09:46; Admin Dose 1,000 MG; Start 07/06/16 at 21:00 Cholecalciferol (Vitamin D) 800 units DAILY PO Last administered on 07/20/16 09:47; Admin Dose 800 UNITS; Start 07/07/16 at 09:00 Midodrine 5 mg 5 mg TID@ GTB Last administered on 07/20/16 14:40; Admin Dose 5 MG; Start 07/07/16 at 17:00 Meropenem 100 ml @ 200 mls/hr Q8 IVPB Last administered on 07/20/16 05:49; Admin Dose 200 MLS/HR; Start 07/11/16 at 14:00 Vancomycin HCl/ Sodium Chloride (Vancocin/NS) 250 ml @ 83.333 mls/ hr Q24H IVPB ; Start 07/20/16 at 14:00 JAYA GORE July 20, 2016 15:06
[2016-07-20] MEDS: VANCOMYCIN 1.25 GM in SOD CHLORIDE 0.9% 250 ML IVPB SCH (15:10)
--- NOTE | 2016-07-20 18:44 | PN ---
Date/Time of Note Date/Time of Note DATE: 07/20/16 TIME: 18:41 Assessment/Plan VTE Prophylaxis VTE Prophylaxis Intervention: other Lines/Catheters IV Catheter Type (from Nrsg): Peripheral IV Urinary Cath still in place: Yes Reason Cath still needed: urinary retention, other (indicate) Assessment/Plan Chief Complaint/Hosp Course IMPRESSION: 1. Sepsis 2. Pneumonia. aspiration 3. Leukocytosis. sacral decubitus 4. Hematuria. better 5. Lactic acidosis. better 6. Respiratory failure. 7. Gastrostomy tube placement. 8. Anemia. 9. Atrial fibrillation. 10. History of congestive heart failure with decreased ejection fraction. 11. vdrf 12. History of paroxysmal atrial fibrillation. 13. The patient now has decubitus. 14 uti 15 polymirobial sepsis 16 pul edema BETTER 17 no gi bleed 18 hypokalemia better 19 diarrhea cdiff neg 20 HYPOCALCEMEIA 21 WBC SCAN SEEN 22 sys chf plan per id iv fluid poor prognosis no hospice per pt son Problems: Subjective 24 Hr Interval Summary Subjective hx not possible: other (d/w son ,no hospice per son yet) Exam/Review of Systems Vital Signs Vitals Vital Signs Date Time Temp Pulse Resp B/P Pulse Ox O2 Delivery O2 Flow Rate FiO2 07/20/16 17:26 98.1 75 24 112/59 97 Mechanical Ventilator 07/20/16 17:05 30 Intake and Output 07/19/16 07/19/16 07/20/16 15:00 23:00 07:00 Intake Total 1080 ml 1075 ml Output Total 1600 ml 1150 ml Balance -520 ml -75 ml Exam Respiratory: diminished breath sounds Cardiovascular: regular rate and rhythm Gastrointestinal: soft Extremities: No edema Results Result Diagram: 07/16/16 0540 07/16/16 0540 Results 24 hrs Laboratory Tests Test 07/19/16 20:52 07/20/16 09:44 Bedside Glucose 102 122 Medications Medications Current Medications Naloxone HCl (Narcan) 0.4 mg Q3M PRN IV DECREASED REPIRATORY RATE; Start at 10:30 Ondansetron HCl (Zofran Inj) 4 mg Q6H PRN IV NAUSEA AND/OR VOMITING; Start 01/12 at 10:30 Nitroglycerin (Nitroglycerin (Sl Tab) 0.4 Mg) 1 tab Q5M PRN SL CHEST PAIN; Start 06/06/16 at 10:30 Acetaminophen (Tylenol Liquid) 650 mg Q6H PRN PO PAIN LEVEL 1-3 OR FEVER Last administered on 07/20/16 14:39; Admin Dose 650 MG; Start 06/06/16 at 10:30 Morphine Sulfate (morphine) 2 mg Q4H PRN IV PAIN LEVEL 7-10 Last administered on 07/19/16 18:40; Admin Dose 2 MG; Start 06/06/16 at 10:30 Docusate Sodium (Colace) 100 mg Q12H PRN PO CONSTIPATION; Start 06/06/16 at 10: 30 Magnesium Hydroxide (Milk Of Mag) 30 ml DAILY PRN PO CONSTIPATION; Start at 10:30 Bisacodyl (Dulcolax) 5 mg DAILY PRN PO CONSTIPATION; Start 06/06/16 at 10:30 Collagenase (Santyl) 1 applic DAILY TOP Last administered on 07/20/16 09:49; Admin Dose 1 APPLIC; Start 06/07/16 at 09:00 Collagenase (Santyl) 1 applic PRN PRN TOP WOUND CARE Last administered on 05:56; Admin Dose 1 APPLIC; Start 06/06/16 at 16:00 IV Flush (NS 10 ml) 10 ml PRN PRN IV IV PROTOCOL; Start 06/06/16 at 18:30 Ascorbic Acid (Vitamin C) 500 mg DAILY GTB Last administered on 07/20/16 09:47 ; Admin Dose 500 MG; Start 06/07/16 at 09:00 Aspirin (Aspirin) 325 mg DAILY GTB Last administered on 07/20/16 09:47; Admin Dose 325 MG; Start 06/07/16 at 09:00 Multivitamins (Thera-Plus) 5 ml DAILY GTB Last administered on 07/20/16 09:48 ; Admin Dose 5 ML; Start 06/07/16 at 09:00 Tamsulosin HCl (Flomax) 0.4 mg HS PO Last administered on 07/19/16 20:50; Admin Dose 0.4 MG; Start 06/07/16 at 21:00 Mupirocin (Bactroban) 1 applic BID TOP Last administered on 07/20/16 09:48; Admin Dose 1 APPLIC; Start 06/07/16 at 21:00 Metoclopramide HCl (Reglan) 10 mg Q6H PRN IV NAUSEA AND/OR VOMITING Last administered on 06/08/16 18:00; Admin Dose 10 MG; Start 06/08/16 at 09:30 Lorazepam (Ativan) 1 mg Q6H PRN IV AGITATION/ANXIETY Last administered on 23:15; Admin Dose 1 MG; Start 06/09/16 at 13:30 Citric Acid/ Sodium Citrate (Bicitra) 30 ml BID PO Last administered on 09:48; Admin Dose 30 ML; Start 06/26/16 at 21:00 Potassium Chloride (Potassium Chloride Pwd/Soln) 40 meq DAILY GTB Last administered on 07/20/16 09:46; Admin Dose 40 MEQ; Start 06/30/16 at 10:30 Atenolol (Tenormin) 12.5 mg BID PO Last administered on 07/20/16 09:47; Admin Dose 12.5 MG; Start 06/30/16 at 23:00 Diagnostic Test (Pha) (Accu-Chek) 1 ea Q12 XX Last administered on 07/20/16 09 :49; Admin Dose 1 EA; Start 07/05/16 at 09:00 Lansoprazole (Prevacid) 30 mg DAILY@06 GTB Last administered on 07/20/16 05:49 ; Admin Dose 30 MG; Start 07/06/16 at 06:00 Furosemide (Lasix) 20 mg DAILY IV Last administered on 07/20/16 09:48; Admin Dose 20 MG; Start 07/07/16 at 09:00 Calcium Carbonate (Tums) 1,000 mg BID PO Last administered on 07/20/16 09:46; Admin Dose 1,000 MG; Start 07/06/16 at 21:00 Cholecalciferol (Vitamin D) 800 units DAILY PO Last administered on 07/20/16 09:47; Admin Dose 800 UNITS; Start 07/07/16 at 09:00 Midodrine 5 mg 5 mg TID@, GTB Last administered on 07/20/16 17:39; Admin Dose 5 MG; Start 07/07/16 at 17:00 Meropenem 100 ml @ 200 mls/hr Q8 IVPB Last administered on 07/20/16 15:10; Admin Dose 200 MLS/HR; Start 07/11/16 at 14:00 Vancomycin HCl/ Sodium Chloride (Vancocin/NS) 250 ml @ 83.333 mls/ hr Q24H IVPB Last administered on 07/20/16t 15:10; Admin Dose 83.333 MLS/HR; Start at 14:00 HOLLI LINDER MD July 20, 2016 18:44
[2016-07-20] MEDS: TAMSULOSIN (SR) 0.4 MG CAP PO SCH (21:55)
--- NOTE | 2016-07-20 23:22 | PN ---
Date/Time of Note Date/Time of Note DATE: 07/20/16 TIME: 23:21 Assessment/Plan Lines/Catheters IV Catheter Type (from [facility]): Peripheral IV Alfonso in Place (from [facility]): Yes Assessment/Plan Chief Complaint/Hosp Course 1. Contained perforated viscous s/p IR drain 06/11. Cx noted. Leukocytosis resolved. Tube feeds. Bowel function. Drain dcd. s/p Abx. Persistent leukocytosis. Chemical code. 2. Pneumonia -pulmonary toilette -abx 3. Sepsis, recent. Leukocytosis -abx -as above 4. Sacral decubitus ulcer -off load -nutrition optimization -vit c -local care 5. Chronic AFib -rate control -optimize electrolytes -tx infections 6. Anemia -tx prn 7. Hypoalbuminemia -eventual nutritional optimization 8. CHF -judicious fluid management -cardiac optimization Thank you, Problems: Subjective 24 Hr Interval Summary Leukocytosis. No f/c. No cough. No sz. No rashes. No bloating. No vomiting. No bleeding. Exam/Review of Systems Vital Signs Vitals Vital Signs Date Time Temp Pulse Resp B/P Pulse Ox O2 Delivery O2 Flow Rate FiO2 07/20/16 21:00 30 07/20/16 20:06 70 07/20/16 19:59 98.7 18 118/59 100 07/20/16 17:26 Mechanical Ventilator Intake and Output 07/19/16 07/19/16 07/20/16 15:00 23:00 07:00 Intake Total 1080 ml 1075 ml Output Total 1600 ml 1150 ml Balance -520 ml -75 ml Exam Free Text/Dictation Constitutional: No distress, No oriented Psych: confusion, No anxiety Head: atraumatic, normocephalic Eyes: PERRL, nl conjunctiva, No icteric ENMT: mucosa pink and moist, nl external ears & nose, nl lips & teeth Neck: jvd (min), non-tender Respiratory: No congested cough, No labored breathing Cardiovascular: No edema, No regular rate and rhythm Gastrointestinal: soft, PEGNo distended, No firm, No rebound or guarding Musculoskeletal: No joint tenderness, No nl gait and stance Extremities: No calf tenderness, No cyanosis Neurological: No nl mental status, No nl speech, No nl strength Skin: nl turgor, rash or lesions (Sacral and LE decubitus ulcerations), No diaphoresis Lymph: nl lymph nodes Results Result Diagram: 07/16/16 0540 07/16/16 0540 DAREK AHMADI MD July 20, 2016 23:22
[2016-07-21] VITALS (18 sets, daily range): BP systolic 99–112; BP diastolic 55–60; PULSE 69–120; RESP 15–38
[2016-07-21] MEDS: ALBUTEROL 18 GM INHALER INH SCH ×4 (01:22→13:14)
[2016-07-21] MEDS: IPRATROPIUM (HFA) 12.9 GM INHALER INH SCH ×4 (01:23→13:13)
[2016-07-21] MEDS: morphine 2 MG INJ IV PRN (04:01)
[2016-07-21] MEDS: LANSOPRAZOLE 30 MG CAP GTB SCH (05:35)
[2016-07-21] MEDS: MEROPENEM 500 MG/100 ML (PMX) 100 ML IVPB SCH ×2 (05:35→15:03)
[2016-07-21 06:38] LABS: ADD SCAN DIFF NO
[2016-07-21 06:43] LABS: BASOPHIL # 0.1 10^3/ul (0.0-0.1); BASOPHILS % 0.5 % (0.0-2.0); EOSINOPHILS # 0.1 10^3/ul (0.0-0.5); EOSINOPHILS % 0.8 % (0.0-7.0); HEMATOCRIT 25.4 % (42.0-52.0); HEMOGLOBIN 7.8 g/dl (14.0-18.0); LYMPHOCYTES # 2.5 10^3/ul (0.8-2.9); LYMPHOCYTES % 14.2 % (15.0-51.0); MEAN CORPUSCULAR HGB CONC 30.7 g/dl (32.0-37.0); MEAN CORPUSCULAR VOLUME 97.7 fl (82.0-101.0); MEAN PLATELET VOLUME 11.5 fl (7.4-10.4); MONOCYTE # 1.4 10^3/ul (0.3-0.9); NEUTROPHILS % 72.7 % (39.0-77.0); PLATELET COUNT 179 10^3/UL (140-415); RED CELL DISTRIBUTION WIDTH 18.3 % (11.5-14.5); WHITE BLOOD COUNT 17.9 10^3/ul (4.8-10.8)
[2016-07-21 07:05] LABS: CALCIUM 8.6 mg/dl (8.4-10.2); CREATININE 0.71 mg/dl (0.61-1.24); POTASSIUM 4.5 mmol/L (3.5-5.1)
[2016-07-21] MEDS: COLISTIMETHATE (25 MG/ML INHAL SYG) NEB SCH (09:00)
[2016-07-21] MEDS: FUROSEMIDE 20 MG INJ IV SCH (09:00)
[2016-07-21] MEDS: ATENOLOL 25 MG TAB PO SCH (09:00)
[2016-07-21] MEDS: ACCU-CHEK XX SCH (09:37)
[2016-07-21] MEDS: COLLAGENASE 30 GM TUBE TOP SCH (09:38)
[2016-07-21] MEDS: MUPIROCIN 2% 22 GM OINT TOP SCH (09:38)
[2016-07-21] MEDS: ASCORBIC ACID 500 MG TAB GTB SCH (09:39)
[2016-07-21] MEDS: CALCIUM CARBONATE 500 MG CHEW TAB PO SCH (09:39)
[2016-07-21] MEDS: MULTIVITAMINS 5 ML CUP GTB SCH (09:39)
[2016-07-21] MEDS: ASPIRIN 325 MG TAB GTB SCH (09:39)
[2016-07-21] MEDS: CHOLECALCIFEROL 400 UNITS TAB PO SCH (09:39)
[2016-07-21] MEDS: POTASSIUM CHLORIDE 20 MEQ POWDER FOR ORAL SOLN GTB SCH (09:39)
[2016-07-21] MEDS: CITRIC ACID/SODIUM CITRATE 15 ML CUP PO SCH (09:40)
--- NOTE | 2016-07-21 11:02 | CONS ---
Date/Time of Note Date/Time of Note DATE: 07/21/16 TIME: 11:01 Consult Date/Type/Reason Admit Date/Time Jun 06, 2016 at 08:08 Initial Consult Date 06/07/16 Type of Consultation: Pulmonary ICU Ordering Provider: HOLLI LINDER MD Subjective Patient appears complaints morning no significant changes Objective Vital Signs Date Time Temp Pulse Resp B/P Pulse Ox O2 Delivery O2 Flow Rate FiO2 07/21/16 09:00 109 20 96 30 07/21/16 07:05 98.8 99/60 07/20/16 17:26 Mechanical Ventilator Intake and Output 07/20/16 07/20/16 07/21/16 15:00 23:00 07:00 Intake Total 1330 ml 1065 ml Output Total 1700 ml 1100 ml Balance -370 ml -35 ml Exam PHYSICAL EXAMINATION GENERAL: Elderly gentleman on mechanical ventilation, VITAL SIGNS: see below. HEENT: Pupils equal, round, and reactive to light. Tracheostomy site clean and intact. CARDIAC: S1, S2, 1/6 systolic ejection murmur CHEST: Diminished air entry bilaterally. ABDOMEN: Mildly distended. Bowel sounds present no guarding or rebound EXTREMITIES: No cyanosis, clubbing edema +1 NEUROLOGIC: Generalized weakness Results/Medications Result Diagram: 07/21/16 0615 07/21/16 0615 Results 24 hrs Laboratory Tests Test 07/20/16 21:52 07/21/16 06:15 07/21/16 09:36 Bedside Glucose 117 113 White Blood Count 17.9 H Red Blood Count 2.60 L Hemoglobin 7.8 L Hematocrit 25.4 L Mean Corpuscular Volume 97.7 Mean Corpuscular Hemoglobin 30.0 Mean Corpuscular Hemoglobin Concent 30.7 L Red Cell Distribution Width 18.3 H Platelet Count 179 # Mean Platelet Volume 11.5 H Neutrophils % 72.7 Lymphocytes % 14.2 L Monocytes % 8.0 Eosinophils % 0.8 Basophils % 0.5 Nucleated Red Blood Cells % 0.0 Neutrophils # 13.0 H Lymphocytes # 2.5 Monocytes # 1.4 H Eosinophils # 0.1 Basophils # 0.1 Nucleated Red Blood Cells # 0.0 Sodium Level 143 Potassium Level 4.5 Chloride Level 108 Carbon Dioxide Level 30 Anion Gap 10 Blood Urea Nitrogen 49 H Creatinine 0.71 Glucose Level 114 Calcium Level 8.6 Medications Current Medications Naloxone HCl (Narcan) 0.4 mg Q3M PRN IV DECREASED REPIRATORY RATE; Start at 10:30 Ondansetron HCl (Zofran Inj) 4 mg Q6H PRN IV NAUSEA AND/OR VOMITING; Start 01/12 at 10:30 Nitroglycerin (Nitroglycerin (Sl Tab) 0.4 Mg) 1 tab Q5M PRN SL CHEST PAIN; Start 06/06/16 at 10:30 Acetaminophen (Tylenol Liquid) 650 mg Q6H PRN PO PAIN LEVEL 1-3 OR FEVER Last administered on 07/20/16 14:39; Admin Dose 650 MG; Start 06/06/16 at 10:30 Morphine Sulfate (morphine) 2 mg Q4H PRN IV PAIN LEVEL 7-10 Last administered on 07/21/16 04:01; Admin Dose 2 MG; Start 06/06/16 at 10:30 Docusate Sodium (Colace) 100 mg Q12H PRN PO CONSTIPATION; Start 06/06/16 at 10: 30 Magnesium Hydroxide (Milk Of Mag) 30 ml DAILY PRN PO CONSTIPATION; Start at 10:30 Bisacodyl (Dulcolax) 5 mg DAILY PRN PO CONSTIPATION; Start 06/06/16 at 10:30 Collagenase (Santyl) 1 applic DAILY TOP Last administered on 07/21/16 09:38; Admin Dose 1 APPLIC; Start 06/07/16 at 09:00 Collagenase (Santyl) 1 applic PRN PRN TOP WOUND CARE Last administered on 05:56; Admin Dose 1 APPLIC; Start 06/06/16 at 16:00 IV Flush (NS 10 ml) 10 ml PRN PRN IV IV PROTOCOL; Start 06/06/16 at 18:30 Ascorbic Acid (Vitamin C) 500 mg DAILY GTB Last administered on 07/21/16 09:39 ; Admin Dose 500 MG; Start 06/07/16 at 09:00 Aspirin (Aspirin) 325 mg DAILY GTB Last administered on 07/21/16 09:39; Admin Dose 325 MG; Start 06/07/16 at 09:00 Multivitamins (Thera-Plus) 5 ml DAILY GTB Last administered on 07/21/16 09:39 ; Admin Dose 5 ML; Start 06/07/16 at 09:00 Tamsulosin HCl (Flomax) 0.4 mg HS PO Last administered on 07/20/16 21:55; Admin Dose 0.4 MG; Start 06/07/16 at 21:00 Mupirocin (Bactroban) 1 applic BID TOP Last administered on 07/21/16 09:38; Admin Dose 1 APPLIC; Start 06/07/16 at 21:00 Metoclopramide HCl (Reglan) 10 mg Q6H PRN IV NAUSEA AND/OR VOMITING Last administered on 06/08/16 18:00; Admin Dose 10 MG; Start 06/08/16 at 09:30 Lorazepam (Ativan) 1 mg Q6H PRN IV AGITATION/ANXIETY Last administered on 23:15; Admin Dose 1 MG; Start 06/09/16 at 13:30 Citric Acid/ Sodium Citrate (Bicitra) 30 ml BID PO Last administered on 09:40; Admin Dose 30 ML; Start 06/26/16 at 21:00 Potassium Chloride (Potassium Chloride Pwd/Soln) 40 meq DAILY GTB Last administered on 07/21/16 09:39; Admin Dose 40 MEQ; Start 06/30/16 at 10:30 Atenolol (Tenormin) 12.5 mg BID PO Last administered on 07/20/16 09:47; Admin Dose 12.5 MG; Start 06/30/16 at 23:00 Diagnostic Test (Pha) (Accu-Chek) 1 ea Q12 XX Last administered on 07/21/16 09 :37; Admin Dose 1 EA; Start 07/05/16 at 09:00 Lansoprazole (Prevacid) 30 mg DAILY@06 GTB Last administered on 07/21/16 05:35 ; Admin Dose 30 MG; Start 07/06/16 at 06:00 Furosemide (Lasix) 20 mg DAILY IV Last administered on 07/20/16 09:48; Admin Dose 20 MG; Start 07/07/16 at 09:00 Calcium Carbonate (Tums) 1,000 mg BID PO Last administered on 07/21/16 09:39; Admin Dose 1,000 MG; Start 07/06/16 at 21:00 Cholecalciferol (Vitamin D) 800 units DAILY PO Last administered on 07/21/16 09:39; Admin Dose 800 UNITS; Start 07/07/16 at 09:00 Midodrine 5 mg 5 mg TID@,,17 GTB Last administered on 07/20/16 17:39; Admin Dose 5 MG; Start 07/07/16 at 17:00 Meropenem 100 ml @ 200 mls/hr Q8 IVPB Last administered on 07/21/16 05:35; Admin Dose 200 MLS/HR; Start 07/11/16 at 14:00 Vancomycin HCl/ Sodium Chloride (Vancocin/NS) 250 ml @ 83.333 mls/ hr Q24H IVPB Last administered on 07/20/16 15:10; Admin Dose 83.333 MLS/HR; Start at 14:00 Assessment/Plan Chief Complaint/Hosp Course assessment 1. Vent dependent respiratory failure with evidence of healthcare associated pneumonia 2. Status post bowel perforation with drainage, persistent leukocytosis 3. Ongoing sepsis as above 4. Chronic atrial fibrillation 5. Decubitus ulcers 6. Dysphagia with G-tube 7. Chronic encephalopathy Plan 1. Continue mechanical ventilation 2. Continue broad-spectrum antibiotics per infectious diseases 3. Surgical recommendations regarding abdominal drains 4. Palliative care consult appreciated, bioethics meeting notes reviewed. 5. DVT and GI prophylaxis Disposition Continue current level of care Pending transfer to snf facility Problems: KAVON TROY MD, [facility] July 21, 2016 11:02
[2016-07-21] MEDS: MIDODRINE 5 MG TAB GTB SCH ×2 (13:00→14:22)
--- NOTE | 2016-07-21 14:07 | PN ---
Date/Time of Note Date/Time of Note DATE: 07/21/16 TIME: 14:07 Assessment/Plan Lines/Catheters IV Catheter Type (from [facility]): Saline Lock Alfonso in Place (from [facility]): Yes Assessment/Plan Chief Complaint/Hosp Course 1. Contained perforated viscous s/p IR drain 06/11. Cx noted. Leukocytosis resolved. Tube feeds. Bowel function. Drain dcd. s/p Abx. Persistent leukocytosis. Chemical code. 2. Pneumonia -pulmonary toilette -abx 3. Sepsis, recent. Leukocytosis -abx -as above 4. Sacral decubitus ulcer -off load -nutrition optimization -vit c -local care 5. Chronic AFib -rate control -optimize electrolytes -tx infections 6. Anemia -tx prn 7. Hypoalbuminemia -eventual nutritional optimization 8. CHF -judicious fluid management -cardiac optimization Thank you, Problems: Subjective 24 Hr Interval Summary Leukocytosis. No f/c. No cough. No sz. No rashes. No bloating. No vomiting. No bleeding. Exam/Review of Systems Vital Signs Vitals Vital Signs Date Time Temp Pulse Resp B/P Pulse Ox O2 Delivery O2 Flow Rate FiO2 07/21/16 12:13 69 07/21/16 11:20 21 96 30 07/21/16 11:03 99.8 99/60 07/20/16 17:26 Mechanical Ventilator Intake and Output 07/20/16 07/20/16 07/21/16 15:00 23:00 07:00 Intake Total 1330 ml 1065 ml Output Total 1700 ml 1100 ml Balance -370 ml -35 ml Exam Free Text/Dictation Constitutional: No distress, No oriented Psych: confusion, No anxiety Head: atraumatic, normocephalic Eyes: PERRL, nl conjunctiva, No icteric ENMT: mucosa pink and moist, nl external ears & nose, nl lips & teeth Neck: jvd (min), non-tender Respiratory: No congested cough, No labored breathing Cardiovascular: No edema, No regular rate and rhythm Gastrointestinal: soft, PEG, Not distended, No firm, No rebound or guarding Musculoskeletal: No joint tenderness, No nl gait and stance Extremities: No calf tenderness, No cyanosis Neurological: No nl mental status, No nl speech, No nl strength Skin: nl turgor, rash or lesions (Sacral and LE decubitus ulcerations), No diaphoresis Lymph: nl lymph nodes Results Result Diagram: 07/21/16 0615 07/21/16 0615 DAREK AHMADI MD July 21, 2016 14:07
--- NOTE | 2016-07-21 14:17 | CONS ---
Date/Time of Note Date/Time of Note DATE: 07/21/16 TIME: 14:11 Assessment/Plan Assessment/Plan Chief Complaint/Hosp Course IMp: 1.CHF-systolic acute on chonic-reasonable volume status at this time 2.Resp failure s/p trach on vent 3.Cardiomyopathy-LVEF 25-30% 4.HTN-with recurrent episodes of Hotn on midodrine as necessary with overall improvement 5.PPM-s/p interrogation with proper function-episodes of SVT and short episode VT 06/09/16/good battery life 6.Leukocytosis-persistent 7.Tachycardia-PAF/AFL rate controlled 8.Perforated viscous s/p IR drain now removed with ongoing leukocytosis 9. Renal insuff-? overdiuresis-now improved and back to baseline 10. Wide complex tachy-NSVT today 06/30/16. NO recurrence 11.Leukocytosis Recc: -Tele -Continue abx's and f/u cx data and treat fevers -Continue atenolol as tolerated/possible only -Continue asa/low dose lovenox -Continue abx's/f/u cx data -Palliative care following with ongoing family discussion as recent as today with PMD as well -Now on midodrine BP support as necessary following hold parameters -S/P dose IVP digoxin with improvement in HR control -Continue low dose gentle lasix diuresis and follow volume status closely Problems: Consultation Date/Type/Reason Admit Date/Time Jun 06, 2016 at 08:08 Initial Consult Date 06/07/16 Type of Consultation: Cardiology Reason for Consultation CHF Referring Provider: HOLLI LINDER MD Exam/Review of Systems Vital Signs Vitals Vital Signs Date Time Temp Pulse Resp B/P Pulse Ox O2 Delivery O2 Flow Rate FiO2 07/21/16 12:13 69 07/21/16 11:20 21 96 30 07/21/16 11:03 99.8 99/60 07/20/16 17:26 Mechanical Ventilator Intake and Output 07/20/16 07/20/16 07/21/16 15:00 23:00 07:00 Intake Total 1330 ml 1065 ml Output Total 1700 ml 1100 ml Balance -370 ml -35 ml Exam Review of Systems: CONSTITUTIONAL: No fevers, chills. PULMONARY: trached CARDIOVASCULAR: No chest pain/palpitations GASTROINTESTINAL: No nausea/vomiting. GENITOURINARY: No hematuria/dysuria. MUSCULOSKELETAL: No myagias/arthalgias. PSYCHIATRIC: The patient denies depression. NEUROLOGIC: Encephalopathic Constitutional: other (encephalopathy) Psych: no complaints ENMT: mucosa pink and moist Neck: jvd (9 cm water), supple Respiratory: other (upper airway rhoncherous sounds) Cardiovascular: regular rate and rhythm Gastrointestinal: non-tender, soft Musculoskeletal: muscle tone Extremities: normal pulses Neurological: other (Encephalopthic) Results Result Diagram: 07/21/16 0615 07/21/16 0615 Results 24 hrs Laboratory Tests Test 07/20/16 21:52 07/21/16 06:15 07/21/16 09:36 Bedside Glucose 117 113 White Blood Count 17.9 H Red Blood Count 2.60 L Hemoglobin 7.8 L Hematocrit 25.4 L Mean Corpuscular Volume 97.7 Mean Corpuscular Hemoglobin 30.0 Mean Corpuscular Hemoglobin Concent 30.7 L Red Cell Distribution Width 18.3 H Platelet Count 179 # Mean Platelet Volume 11.5 H Neutrophils % 72.7 Lymphocytes % 14.2 L Monocytes % 8.0 Eosinophils % 0.8 Basophils % 0.5 Nucleated Red Blood Cells % 0.0 Neutrophils # 13.0 H Lymphocytes # 2.5 Monocytes # 1.4 H Eosinophils # 0.1 Basophils # 0.1 Nucleated Red Blood Cells # 0.0 Sodium Level 143 Potassium Level 4.5 Chloride Level 108 Carbon Dioxide Level 30 Anion Gap 10 Blood Urea Nitrogen 49 H Creatinine 0.71 Glucose Level 114 Calcium Level 8.6 Medications Medications Current Medications Naloxone HCl (Narcan) 0.4 mg Q3M PRN IV DECREASED REPIRATORY RATE; Start at 10:30 Ondansetron HCl (Zofran Inj) 4 mg Q6H PRN IV NAUSEA AND/OR VOMITING; Start 01/12 at 10:30 Nitroglycerin (Nitroglycerin (Sl Tab) 0.4 Mg) 1 tab Q5M PRN SL CHEST PAIN; Start 06/06/16 at 10:30 Acetaminophen (Tylenol Liquid) 650 mg Q6H PRN PO PAIN LEVEL 1-3 OR FEVER Last administered on 07/20/16t 14:39; Admin Dose 650 MG; Start 06/06/16 at 10:30 Morphine Sulfate (morphine) 2 mg Q4H PRN IV PAIN LEVEL 7-10 Last administered on 07/21/16 04:01; Admin Dose 2 MG; Start 06/06/16 at 10:30 Docusate Sodium (Colace) 100 mg Q12H PRN PO CONSTIPATION; Start 06/06/16 at 10: 30 Magnesium Hydroxide (Milk Of Mag) 30 ml DAILY PRN PO CONSTIPATION; Start at 10:30 Bisacodyl (Dulcolax) 5 mg DAILY PRN PO CONSTIPATION; Start 06/06/16 at 10:30 Collagenase (Santyl) 1 applic DAILY TOP Last administered on 07/21/16 09:38; Admin Dose 1 APPLIC; Start 06/07/16 at 09:00 Collagenase (Santyl) 1 applic PRN PRN TOP WOUND CARE Last administered on 05:56; Admin Dose 1 APPLIC; Start 06/06/16 at 16:00 IV Flush (NS 10 ml) 10 ml PRN PRN IV IV PROTOCOL; Start 06/06/16 at 18:30 Ascorbic Acid (Vitamin C) 500 mg DAILY GTB Last administered on 07/21/16 09:39 ; Admin Dose 500 MG; Start 06/07/16 at 09:00 Aspirin (Aspirin) 325 mg DAILY GTB Last administered on 07/21/16 09:39; Admin Dose 325 MG; Start 06/07/16 at 09:00 Multivitamins (Thera-Plus) 5 ml DAILY GTB Last administered on 07/21/16 09:39 ; Admin Dose 5 ML; Start 06/07/16 at 09:00 Tamsulosin HCl (Flomax) 0.4 mg HS PO Last administered on 07/20/16 21:55; Admin Dose 0.4 MG; Start 06/07/16 at 21:00 Mupirocin (Bactroban) 1 applic BID TOP Last administered on 07/21/16 09:38; Admin Dose 1 APPLIC; Start 06/07/16 at 21:00 Metoclopramide HCl (Reglan) 10 mg Q6H PRN IV NAUSEA AND/OR VOMITING Last administered on 06/08/16 18:00; Admin Dose 10 MG; Start 06/08/16 at 09:30 Lorazepam (Ativan) 1 mg Q6H PRN IV AGITATION/ANXIETY Last administered on 23:15; Admin Dose 1 MG; Start 06/09/16 at 13:30 Citric Acid/ Sodium Citrate (Bicitra) 30 ml BID PO Last administered on 09:40; Admin Dose 30 ML; Start 06/26/16 at 21:00 Potassium Chloride (Potassium Chloride Pwd/Soln) 40 meq DAILY GTB Last administered on 07/21/16 09:39; Admin Dose 40 MEQ; Start 06/30/16 at 10:30 Atenolol (Tenormin) 12.5 mg BID PO Last administered on 07/20/16 09:47; Admin Dose 12.5 MG; Start 06/30/16 at 23:00 Diagnostic Test (Pha) (Accu-Chek) 1 ea Q12 XX Last administered on 07/21/16 09 :37; Admin Dose 1 EA; Start 07/05/16 at 09:00 Lansoprazole (Prevacid) 30 mg DAILY@06 GTB Last administered on 07/21/16 05:35 ; Admin Dose 30 MG; Start 07/06/16 at 06:00 Furosemide (Lasix) 20 mg DAILY IV Last administered on 07/20/16 09:48; Admin Dose 20 MG; Start 07/07/16 at 09:00 Calcium Carbonate (Tums) 1,000 mg BID PO Last administered on 07/21/16 09:39; Admin Dose 1,000 MG; Start 07/06/16 at 21:00 Cholecalciferol (Vitamin D) 800 units DAILY PO Last administered on 07/21/16 09:39; Admin Dose 800 UNITS; Start 07/07/16 at 09:00 Midodrine 5 mg 5 mg TID@,17 GTB Last administered on 07/20/16 17:39; Admin Dose 5 MG; Start 07/07/16 at 17:00 Meropenem 100 ml @ 200 mls/hr Q8 IVPB Last administered on 07/21/16 05:35; Admin Dose 200 MLS/HR; Start 07/11/16 at 14:00 Vancomycin HCl/ Sodium Chloride (Vancocin/NS) 250 ml @ 83.333 mls/ hr Q24H IVPB Last administered on 07/20/16 15:10; Admin Dose 83.333 MLS/HR; Start at 14:00 JAYA GORE July 21, 2016 14:17
--- NOTE | 2016-07-21 14:39 | CONS ---
Date/Time of Note Date/Time of Note DATE: 07/21/16 TIME: 14:38 Assessment/Plan Assessment/Plan Chief Complaint/Hosp Course SUBJECTIVE: No acute changes. Noncommunicative. No fevers. Looks comfortable MICROBIOLOGY: Blood culture on 07/10/2016 negative. Urine culture negative. Endotracheal aspirate grew Acinetobacter baumannii and Klebsiella pneumoniae. Wound cx + Enterococcus/Kleb ESBL/A. baumanii INDWELLINGS: Trach, PEG, Alfonso Abx: Colistin INH, Merrem, Vanco PHYSICAL EXAMINATION: GENERAL: This is a fragile, chronically ill-appearing, elderly man who is in no distress. HEENT: Head atraumatic, normocephalic. Sclerae anicteric. Buccal mucosa dry. NECK: Supple. Tracheostomy present. CHEST: Rise symmetrical. Breath sounds diminished to bases. HEART: S1, S2. ABDOMEN: Soft. Bowel tones hypoactive. EXTREMITIES: With trace edema. ASSESSMENT: 1. Systemic inflammatory response syndrome with persistent leukocytosis 2 to # 4 2. Chronic respiratory failure, status post pneumonia, with endotracheal aspirate growing multi-drug resistant organisms===> on colistin inhalation. 3. Status post intra-abdominal abscess drainage==> repeat CT + resolution. 4. Infected sacral decubitus==> cx growing multiple bacteria. 5. Atrial fibrillation. 6. Acute on chronic anemia. 7. Status post methicillin-resistant Staphylococcus aureus bacteremia and urinary tract infection on admission. PLAN: Remains stable, will dc Colistin, complete abx 7 more days, pending dc [facility] staff Problems: Consultation Date/Type/Reason Admit Date/Time Jun 06, 2016 at 08:08 Initial Consult Date 06/07/16 Type of Consultation: ID Referring Provider: HOLLI LINDER MD Exam/Review of Systems Vital Signs Vitals Vital Signs Date Time Temp Pulse Resp B/P Pulse Ox O2 Delivery O2 Flow Rate FiO2 07/21/16 13:10 64 16 96 30 07/21/16 11:03 99.8 99/60 07/20/16 17:26 Mechanical Ventilator Intake and Output 07/20/16 07/20/16 07/21/16 15:00 23:00 07:00 Intake Total 1330 ml 1065 ml Output Total 1700 ml 1100 ml Balance -370 ml -35 ml Results Result Diagram: 07/21/16 0615 07/21/16 0615 Results 24 hrs Laboratory Tests Test 07/20/16 21:52 07/21/16 06:15 07/21/16 09:36 Bedside Glucose 117 113 White Blood Count 17.9 H Red Blood Count 2.60 L Hemoglobin 7.8 L Hematocrit 25.4 L Mean Corpuscular Volume 97.7 Mean Corpuscular Hemoglobin 30.0 Mean Corpuscular Hemoglobin Concent 30.7 L Red Cell Distribution Width 18.3 H Platelet Count 179 # Mean Platelet Volume 11.5 H Neutrophils % 72.7 Lymphocytes % 14.2 L Monocytes % 8.0 Eosinophils % 0.8 Basophils % 0.5 Nucleated Red Blood Cells % 0.0 Neutrophils # 13.0 H Lymphocytes # 2.5 Monocytes # 1.4 H Eosinophils # 0.1 Basophils # 0.1 Nucleated Red Blood Cells # 0.0 Sodium Level 143 Potassium Level 4.5 Chloride Level 108 Carbon Dioxide Level 30 Anion Gap 10 Blood Urea Nitrogen 49 H Creatinine 0.71 Glucose Level 114 Calcium Level 8.6 Medications Medications Current Medications Naloxone HCl (Narcan) 0.4 mg Q3M PRN IV DECREASED REPIRATORY RATE; Start at 10:30 Ondansetron HCl (Zofran Inj) 4 mg Q6H PRN IV NAUSEA AND/OR VOMITING; Start 01/12 at 10:30 Nitroglycerin (Nitroglycerin (Sl Tab) 0.4 Mg) 1 tab Q5M PRN SL CHEST PAIN; Start 06/06/16 at 10:30 Acetaminophen (Tylenol Liquid) 650 mg Q6H PRN PO PAIN LEVEL 1-3 OR FEVER Last administered on 07/20/16 14:39; Admin Dose 650 MG; Start 06/06/16 at 10:30 Morphine Sulfate (morphine) 2 mg Q4H PRN IV PAIN LEVEL 7-10 Last administered on 07/21/16 04:01; Admin Dose 2 MG; Start 06/06/16 at 10:30 Docusate Sodium (Colace) 100 mg Q12H PRN PO CONSTIPATION; Start 06/06/16 at 10: 30 Magnesium Hydroxide (Milk Of Mag) 30 ml DAILY PRN PO CONSTIPATION; Start at 10:30 Bisacodyl (Dulcolax) 5 mg DAILY PRN PO CONSTIPATION; Start 06/06/16 at 10:30 Collagenase (Santyl) 1 applic DAILY TOP Last administered on 07/21/16 09:38; Admin Dose 1 APPLIC; Start 06/07/16 at 09:00 Collagenase (Santyl) 1 applic PRN PRN TOP WOUND CARE Last administered on 05:56; Admin Dose 1 APPLIC; Start 06/06/16 at 16:00 IV Flush (NS 10 ml) 10 ml PRN PRN IV IV PROTOCOL; Start 06/06/16 at 18:30 Ascorbic Acid (Vitamin C) 500 mg DAILY GTB Last administered on 07/21/16 09:39 ; Admin Dose 500 MG; Start 06/07/16 at 09:00 Aspirin (Aspirin) 325 mg DAILY GTB Last administered on 07/21/16 09:39; Admin Dose 325 MG; Start 06/07/16 at 09:00 Multivitamins (Thera-Plus) 5 ml DAILY GTB Last administered on 07/21/16 09:39 ; Admin Dose 5 ML; Start 06/07/16 at 09:00 Tamsulosin HCl (Flomax) 0.4 mg HS PO Last administered on 07/20/16 21:55; Admin Dose 0.4 MG; Start 06/07/16 at 21:00 Mupirocin (Bactroban) 1 applic BID TOP Last administered on 07/21/16 09:38; Admin Dose 1 APPLIC; Start 06/07/16 at 21:00 Metoclopramide HCl (Reglan) 10 mg Q6H PRN IV NAUSEA AND/OR VOMITING Last administered on 06/08/16 18:00; Admin Dose 10 MG; Start 06/08/16 at 09:30 Lorazepam (Ativan) 1 mg Q6H PRN IV AGITATION/ANXIETY Last administered on 23:15; Admin Dose 1 MG; Start 06/09/16 at 13:30 Citric Acid/ Sodium Citrate (Bicitra) 30 ml BID PO Last administered on 09:40; Admin Dose 30 ML; Start 06/26/16 at 21:00 Potassium Chloride (Potassium Chloride Pwd/Soln) 40 meq DAILY GTB Last administered on 07/21/16 09:39; Admin Dose 40 MEQ; Start 06/30/16 at 10:30 Atenolol (Tenormin) 12.5 mg BID PO Last administered on 07/20/16 09:47; Admin Dose 12.5 MG; Start 06/30/16 at 23:00 Diagnostic Test (Pha) (Accu-Chek) 1 ea Q12 XX Last administered on 07/21/16 09 :37; Admin Dose 1 EA; Start 07/05/16 at 09:00 Lansoprazole (Prevacid) 30 mg DAILY@06 GTB Last administered on 07/21/16 05:35 ; Admin Dose 30 MG; Start 07/06/16 at 06:00 Furosemide (Lasix) 20 mg DAILY IV Last administered on 07/20/16 09:48; Admin Dose 20 MG; Start 07/07/16 at 09:00 Calcium Carbonate (Tums) 1,000 mg BID PO Last administered on 07/21/16 09:39; Admin Dose 1,000 MG; Start 07/06/16 at 21:00 Cholecalciferol (Vitamin D) 800 units DAILY PO Last administered on 07/21/16 09:39; Admin Dose 800 UNITS; Start 07/07/16 at 09:00 Midodrine 5 mg 5 mg TID@,,17 GTB Last administered on 07/21/16 14:22; Admin Dose 5 MG; Start 07/07/16 at 17:00 Meropenem 100 ml @ 200 mls/hr Q8 IVPB Last administered on 07/21/16 05:35; Admin Dose 200 MLS/HR; Start 07/11/16 at 14:00 Vancomycin HCl/ Sodium Chloride (Vancocin/NS) 250 ml @ 83.333 mls/ hr Q24H IVPB Last administered on 07/20/16 15:10; Admin Dose 83.333 MLS/HR; Start at 14:00 JOSE G CUNNINGHAM NP July 21, 2016 14:39
[2016-07-21] MEDS ORDERED: DOCU-216 PO (14:41)
[2016-07-21] MEDS ORDERED: Acetaminophen Liquid PO (14:41)
[2016-07-21] MEDS ORDERED: FURO20TA3 PO (14:41)
[2016-07-21] MEDS ORDERED: UDMOM PO (14:41)
[2016-07-21] MEDS ORDERED: SAN30GM TOP (14:41)
[2016-07-21] MEDS ORDERED: CHOL400T8 PO (14:41)
[2016-07-21] MEDS: VANCOMYCIN 1.25 GM in SOD CHLORIDE 0.9% 250 ML IVPB SCH (15:03)
--- NOTE | 2016-07-22 11:27 | PN ---
DATE: 07/21/2016 SUBJECTIVE: I saw and examined him once today. He is clinically unchanged. VITAL SIGNS: Blood pressure 112/58, pulse of 87 and regular, respirations of 18, temperature of 99 degrees, 96% saturation on 30% FIO2. CHEST: Distant breath sounds throughout both lung nickerson and inspiratory and expiratory rhonchi. COR: S1, S2, without S3, S4, murmur, gallop, rub. Normal rate, normal rhythm. NEUROLOGICAL: With deep stimulation, he does open his eyes and he tries to look around, he mouths w ords, primarily when his son is here. ASSESSMENT AND PLAN: This gentleman is still severely neurologically impaired, but not vegetative. He remains vent dependent. My understanding is the family wants to continue current level of care, with a FULL CODE designation and will probably continue with a high level of care when readmitted i n the near future. Patient's son has refused hospice consultations in the past. Dictated By: HENRY GUPTA MD, LP/TRACY Conf#: [id number] DID#: [id number]
== END 2016-07-21 17:25 | DRG 870 ==
LOC: EDBD 06:26 → E/R 06:26 → ICU 08:08 → TEL 06-17 07:46
PROVIDERS: ADMIT Internal Medicine Nephrology; ATTEND Internal Medicine Nephrology
PROC: 5A1955Z Respiratory Ventilation, Greater than 96 Consecutive Hours (ICD-10-PCS; principal; 2016-06-06)
PROC: 02HV33Z Insertion of Infusion Device into Superior Vena Cava, Percutaneous Approach (ICD-10-PCS; 2016-06-06)
PROC: B548ZZA Ultrasonography of Superior Vena Cava, Guidance (ICD-10-PCS; 2016-06-06)
PROC: 0W9G30Z Drainage of Peritoneal Cavity with Drainage Device, Percutaneous Approach (ICD-10-PCS; 2016-06-11)
PROC: 30233N1 Transfusion of Nonautologous Red Blood Cells into Peripheral Vein, Percutaneous Approach (ICD-10-PCS; 2016-06-11)
PROC: 30233N1 Transfusion of Nonautologous Red Blood Cells into Peripheral Vein, Percutaneous Approach (ICD-10-PCS; 2016-06-25)
PROC: 30233N1 Transfusion of Nonautologous Red Blood Cells into Peripheral Vein, Percutaneous Approach (ICD-10-PCS; 2016-07-01)
DX: A41.9 Sepsis, unspecified organism (principal); J96.21 Acute and chronic respiratory failure with hypoxia; J69.0 Pneumonitis due to inhalation of food and vomit; K63.1 Perforation of intestine (nontraumatic); R65.21 Severe sepsis with septic shock; J95.851 Ventilator associated pneumonia; G93.40 Encephalopathy, unspecified; I50.23 Acute on chronic systolic (congestive) heart failure; Z99.11 Dependence on respirator [ventilator] status; E87.2 Acidosis; I42.9 Cardiomyopathy, unspecified; N39.0 Urinary tract infection, site not specified; R18.8 Other ascites; Y95 Nosocomial condition; I25.10 Atherosclerotic heart disease of native coronary artery without angina pectoris; R13.10 Dysphagia, unspecified; I48.0 Paroxysmal atrial fibrillation; D63.8 Anemia in other chronic diseases classified elsewhere; L89.150 Pressure ulcer of sacral region, unstageable; Z93.0 Tracheostomy status; L89.029 Pressure ulcer of left elbow, unspecified stage; L89.619 Pressure ulcer of right heel, unspecified stage; F03.90 Unspecified dementia, unspecified severity, without behavioral disturbance, psychotic disturbance, mood disturbance, and anxiety; E88.09 Other disorders of plasma-protein metabolism, not elsewhere classified; Z93.1 Gastrostomy status; Y84.8 Other medical procedures as the cause of abnormal reaction of the patient, or of later complication, without mention of misadventure at the time of the procedure; Y92.122 Bedroom in nursing home as the place of occurrence of the external cause; Z95.0 Presence of cardiac pacemaker
CPT/HCPCS: 36430; 36569; 36600; 71010; 71250; 74000; 74176; 74177; 75989; 76937; 78806; 80048; 80053; 80202; 81001; 81003; 82270; 82803; 82962; 83605; 83735; 84100; 84145; 84484; 85014; 85018; 85025; 85610; 85730; 86850; 86900; 86901; 86920; 87040; 87070; 87075; 87081; 87086; 87102; 87205; 87220; 89220; 93005; 93306; 93308; 94002; 94003; 94640; 94664; 96374; 96375; 96376; J1940; A9570; C1769; C9113; J0610; J1650; J1956; J2060; J2185; J2270; J2543; J2765; J2930; J3370; J3475; J3480; J7030; J7040; J7042; J7050; J7060; J7070; P9016; P9047; Q9967

== ENCOUNTER 2016-09-15 06:30 | Inpatient (IN) | payer OTHER ==
[~2016-09-15] VITALS: Ht 167.6 cm; Wt 71.3 kg
[2016-09-15] VITALS (7 sets, daily range): BP systolic 59–76; BP diastolic 37–47; PULSE 78–82; RESP 23–25; TEMP 97; Ht 167.6 cm; Wt 71.3 kg
[~2016-09-15 06:30] MED LIST changes: +ASCO500C7 GTB; +ASPI325T4 GTB; +Acetaminophen Liquid PO; +CHOL400T8 PO; +DOCU-216 PO; -ETOMIDATE 20 MG INJ ONE; +FURO20TA3 PO; +MIDO5TAB19 GTB; +MULTI GTB; +POTA20TA96 GTB; +SAN30GM TOP; -SUCCINYLCHOLINE CHLORIDE 100 MG/5 ML SYG IV ONE; +TAMS0.4C2 GTB; +UDMOM PO; +ZINC220T GTB
[2016-09-15] MEDS ORDERED: CEFEPIME 2GM/50 ML (PMX) 50 ML IVPB STA (06:36)
[2016-09-15] MEDS ORDERED: VANCOMYCIN 1 GM (PMX) 250 ML IVPB ONE (07:00)
[2016-09-15] MEDS ORDERED: SOD CHLORIDE 0.9% 1,000 ML IV ONE ×3 (07:00→08:30)
[2016-09-15 07:06] LABS: AADO2 Arterial 520.8 mmHg (7.0-24.0); Allen Test ACCEPTAB; Arterial Base Excess -11.9 mmol/L (-3.0-3); Arterial COHb 0.3 % (0.0-3.0); Arterial Fraction of Oxyhgb 97.4 % (93.0-99.0); Arterial HCO3 15.2 mmol/L (22.0-26.0); Arterial MetHb 0.5 % (0.0-1.5); Arterial Total Hemglobin 11.6 g/dl (12.0-18.0); Blood Gas Low PEEP Setting 0 cmH2O; MODE VENT - AC
[2016-09-15 07:16] LABS: ADD SCAN DIFF NO
[2016-09-15 07:21] LABS: ABNORMAL IP MESSAGE 1; HEMATOCRIT 37.4 % (42.0-52.0); HEMOGLOBIN 11.2 g/dl (14.0-18.0); MEAN CORPUSCULAR HEMOGLOBIN 28.4 pg (29.0-33.0); MEAN CORPUSCULAR HGB CONC 29.9 g/dl (32.0-37.0); MEAN CORPUSCULAR VOLUME 94.7 fl (82.0-101.0); MEAN PLATELET VOLUME 11.6 fl (7.4-10.4); PLATELET COUNT 449 10^3/UL (140-415); RED BLOOD COUNT 3.95 10^6/ul (4.70-6.10); RED CELL DISTRIBUTION WIDTH 17.7 % (11.5-14.5)
[2016-09-15] MEDS ORDERED: FAMO20TA18 GTB (07:22)
[2016-09-15] MEDS ORDERED: CALC500T91 GTB (07:23)
[2016-09-15] MEDS ORDERED: CHOL400T10 GTB (07:25)
[2016-09-15] MEDS ORDERED: DOCU100T GTB (07:26)
--- NOTE | 2016-09-15 07:26 | ERA ---
ER Documentation Chief Complaint Date/Time DATE: 09/15/16 TIME: 07:20 Chief Complaint Patient [facility] from [facility] home with complaint of LOw sat 84% HPI This 86-year-old male was sent from a custodial facility for low oxygen saturation of 84%. Brought in by paramedics who placed him on oxygen. The patient is unresponsive at baseline yet but is a full code. His trach vent dependent. On arrival oxygen saturation is 100% in all of his other vital signs are unstable. Paperwork sent with the patient is minimal diagnoses and does not state a reason why the patient is trach vent dependent and unresponsive at baseline.. ROS Unobtainable Medications Home Meds Reported Medications Hydrocodone/Acetaminophen ([place] 5-325 Tablet) 1 Each Tablet, 1 EACH G-TUBE BID , TAB 09/15/16 Acetaminophen* (Acetaminophen*) 650 Mg Tablet, 650 MG GTB CHANGE TRACH TUBE, # 30 TAB 09/15/16 Acetaminophen* (Acetaminophen*) 650 Mg Tablet, 650 MG GTB Q4 Y for FEVER GREATER THAN 100.6, #30 TAB 09/15/16 Ferrous Sulfate (Ferrous Sulfate) 220 Mg/5 Ml Solution, 220 MG GTB BID 09/15/16 Zinc Sulfate* (Zinc Sulfate*) 220 Mg Tablet, 220 MG GTB DAILY, TAB 09/15/16 Na Phos,M-B/Na Phos,Di-Ba (ENEMA READY TO USE) 135 Ml Enema, 135 ML RC PRN Y for CONSTIPATION, ENEMA 09/15/16 Bisacodyl (Dulcolax) 10 Mg Supp.rect, 10 MG RC prn Y for CONSTIPATION, SUPP.RECT 09/15/16 Cran/Vitc/Mannose/Inulin/Brom (Uti-Stat Liquid) 3,875 Mg/30 Ml Liquid, 3875 MG GTB DAILY 09/15/16 Acetaminophen* (Acetaminophen*) 650 Mg Tablet, 650 MG GTB Q4 Y for MILD PAIN LEVEL 1-3, #30 TAB 09/15/16 Acetaminophen* (Acetaminophen*) 500 MG Extra Strength Tablet, 1000 MG PO Q4 Y for MODERATE PAIN LEVEL 4-6, TAB 09/15/16 Epoetin meme* (Epogen*) 4,000 Unit/1 Ml Vial, 65908 UNIT SC every sun and , VIAL 09/15/16 Magnesium Hydroxide* (Milk Of Magnesia*) 400 Mg/5 Ml Oral.susp, 30 ML GTB DAILY , ML 09/15/16 Furosemide* (Furosemide*) 20 Mg Tablet, 20 MG GTB DAILY, #60 TAB 09/15/16 Docusate Sodium* (Dok*) 100 Mg Tablet, 100 MG GTB BID, #60 CAP 09/15/16 Cholecalciferol* (Vitamin D*) 400 Unit Tablet, 800 UNIT GTB DAILY, TAB 09/15/16 Calcium Carbonate ([id number]) 500 Mg Tablet, 500 MG GTB DAILY, TAB 09/15/16 Famotidine* (Famotidine*) 20 Mg Tablet, 20 MG GTB DAILY, #30 TAB 09/15/16 Ascorbic Acid* (Vitamin C*) 500 Mg Capsule.sa, 500 MG GTB DAILY, CAP 06/06/16 Multivitamins* (Theragran*) 1 Tab Tab, 1 TAB GTB DAILY, TAB 06/06/16 Tamsulosin Hcl* (Tamsulosin Hcl*) 0.4 Mg Cap.er.24h, 0.4 MG GTB HS, CAP 06/06/16 Aspirin* (Aspirin*) 325 Mg Tablet, 325 MG GTB DAILY, TAB 06/06/16 Discontinued Reported Medications Zinc Sulfate* (Zinc Sulfate*) 220 Mg Tablet, 220 MG GTB DAILY, TAB 06/06/16 Potassium Chloride* (Potassium Chloride*) 20 Meq Tablet.er, 20 MEQ GTB DAILY, TAB.SA 06/06/16 Midodrine* (Midodrine*) 5 Mg Tablet, 5 MG GTB TID, TAB HOLD FOR SBP>140 06/06/16 Discontinued Scripts Furosemide* (Furosemide*) 20 Mg Tablet, 20 MG PO BID, #30 TAB Prov:WANG BELL 07/21/16 Docusate Sodium (Dok) 100 Mg Capsule, 100 MG PO Q12H Y for CONSTIPATION for 28 Days, CAP Prov:ZENTSEVWANG Vargas 07/21/16 Collagenase* (Santyl*) 30 Gm Oint..gm., 1 APPLIC TOP PRN Y for WOUND CARE for 30 Days Prov:WANG BELL 07/21/16 Cholecalciferol (Vitamin D3) 400 Unit Tablet, 800 UNITS PO DAILY for 10 Days, TAB Prov:WANG BELL 07/21/16 [Acetaminophen Liquid] 160 MG/5 ML SOLN No Conflict Check, 650 MG PO Q6H Y for PAIN LEVEL 1-3 OR FEVER for 10 Days Prov:WANG BELL 07/21/16 Magnesium Hydroxide* ([place]' MOM*) 30 Ml Susp, 30 ML PO DAILY Y for CONSTIPATION for 10 Days Prov:WANG BELL 07/21/16 Allergies Allergies: Coded Allergies: No Known Allergies (Verified Allergy, Unknown, 09/15/16) PMhx/Soc History of Surgery: No Anesthesia Reaction: No Hx Neurological Disorder: Yes (ALOC) Hx Respiratory Disorders: Yes (Vent dependent, Trach) Hx Cardiac Disorders: No Hx Psychiatric Problems: No Hx Miscellaneous Medical Probl: Yes (SOB, Asthma) Hx Alcohol Use: No Hx Substance Use: No Hx Tobacco Use: No Smoking Status: Never smoker Physical Exam Vitals Vital Signs Date Time Temp Pulse Resp B/P Pulse Ox O2 Delivery O2 Flow Rate FiO2 09/15/16 11:00 98.0 127 20 125/103 96 Mechanical Ventilator 10.0 09/15/16 10:16 124 27 100 80 09/15/16 10:00 98.0 120 20 117/6 99 Mechanical Ventilator 10.0 09/15/16 09:30 98.3 123 20 121/64 100 Mechanical Ventilator 10.0 09/15/16 09:15 98.3 123 24 97/70 100 Mechanical Ventilator 10.0 09/15/16 08:50 100 09/15/16 08:30 98.3 121 20 89/59 100 Mechanical Ventilator 10.0 09/15/16 08:09 Bag Valve Mask 09/15/16 08:00 98.0 20 67/48 98 Room Air 09/15/16 07:45 98.0 122 20 67/48 100 Mechanical Ventilator 10.0 09/15/16 07:30 98.3 122 24 79/42 100 Mechanical Ventilator 10.0 09/15/16 07:15 98.0 113 24 70/45 100 Mechanical Ventilator 10.0 09/15/16 07:00 97.9 60 20 74/51 100 Mechanical Ventilator 10.0 09/15/16 06:45 97.2 72 20 84/67 100 Mechanical Ventilator 10.0 09/15/16 06:30 Bag Valve Mask 09/15/16 06:30 97.1 100 28 48/27 84 09/15/16 06:30 125 33 100 50 Physical Exam Const: [] Severe distress, patient gasping for breath Head: Atraumatic Eyes: Normal Conjunctiva, PERRL ENT: Normal External Ears, Nose and Mouth. Mouth open with dry mucous membranes. Neck: Full range of motion..~ No meningismus. Resp: Bilateral rhonchorous breath sounds with decreased sounds bilaterally, tachypneic Cardio: Regular tachycardia, no murmurs Abd: Soft, no obvious tenderness, feeding tube in place., non distended. Normal bowel sounds Skin: No petechiae or rashes, patchy diffuse bruising. Poor skin turgor Ext: No cyanosis, or edema Neur: Awake, unresponsive, unable to cooperate with neurological exam. Result Diagram: 09/15/16 0710 09/15/16 0642 Results 24 hrs Laboratory Tests Test 09/15/16 06:36 09/15/16 06:42 09/15/16 07:10 09/15/16 09:25 Blood Gas Specimen Source Blood arterial Arterial Blood Date Drawn 09/15/2016 6:55:27 AM Arterial Blood pH (Temp corrected) 7.213 Arterial Blood pCO2 (Temp correct) 38.5mmhg Arterial Blood pO2 (Temp corrected) 153.7mmHG Arterial Blood HCO3 15.2mmol/L Arterial Blood Base Excess -11.9mmol/L Arterial Blood Oxygen Saturation 98.2mmHG Zaid Test ACCEPTAB Arterial Blood Gas Puncture Site Left Radial Arterial Blood Carboxyhemoglobin 0.3% Arterial Blood Methemoglobin 0.5% Blood Gas A-a O2 Differential 520.8mmHg Oxyhemoglobin Percent 97.4% Total Hemoglobin 11.6g/dl Blood Gas Temperature 37.0C Blood Gas Respiration Rate 14.0 Blood Gas Actual Respiration Rate 31 Blood Gas Modality VENT - AC FiO2 100.0% Blood Gas Tidal Volume 500.0mL Blood Gas Low PEEP Setting 0cmH2O Blood Gas Critical Value Read Back DR. VELAZQUEZ Blood Gas Notified Whom Fadi Blood Gas Notified Time 09/15/2016 7:06:12 AM Sodium Level 137mmol/L Potassium Level 3.5mmol/L Chloride Level 91mmol/L Carbon Dioxide Level 20mmol/L Anion Gap 30 Blood Urea Nitrogen 148mg/dl Creatinine 2.47mg/dl Glucose Level 140mg/dl Calcium Level 12.0mg/dl Total Bilirubin 0.0mg/dl Direct Bilirubin 0.00mg/dl Indirect Bilirubin 0.0mg/dl Aspartate Amino Transf (AST/SGOT) 72IU/L Alanine Aminotransferase (ALT/SGPT) 31IU/L Alkaline Phosphatase 147IU/L Troponin I 0.052ng/ml Total Protein 5.9g/dl Albumin 2.5g/dl Globulin 3.40g/dl Albumin/Globulin Ratio 0.73 White Blood Count 92.210^3/ul Red Blood Count 3.9510^6/ul Hemoglobin 11.2g/dl Hematocrit 37.4% Mean Corpuscular Volume 94.7fl Mean Corpuscular Hemoglobin 28.4pg Mean Corpuscular Hemoglobin Concent 29.9g/dl Red Cell Distribution Width 17.7% Platelet Count 55698^3/UL Mean Platelet Volume 11.6fl Neutrophils % 58.0% Band Neutrophils % 14.0% Lymphocytes % 5.0% Monocytes % 4.0% Eosinophils % % Basophils % % Metamyelocytes % (manual) 5% Myelocytes % (Manual) 5.010^3/ul Promyelocytes % (Manual) 9% Neutrophils # 53.510^3/ul Lymphocytes # 4.610^3/ul Monocytes # 3.710^3/ul Eosinophils # 10^3/ul Basophils # 10^3/ul Metamyelocytes # 4.6 Myelocytes # 4.6 Promyelocytes # 8.3 Differential Comment Prothrombin Time 13.7Sec Prothrombin Time Ratio 1.1 INR International Normalized Ratio 1.05 Activated Partial Thromboplast Time 35.0Sec Lactic Acid Level 7.1mmol/L Test 09/15/16 10:48 09/15/16 11:17 09/15/16 11:35 White Blood Count Pending Red Blood Count Pending Hemoglobin Pending Hematocrit Pending Mean Corpuscular Volume Pending Mean Corpuscular Hemoglobin Pending Mean Corpuscular Hemoglobin Concent Pending Red Cell Distribution Width Pending Platelet Count Pending Mean Platelet Volume Pending Urine Color YELLOW Urine Clarity CLOUDY Urine pH 5.5 Urine Specific Accord 1.010 Urine Ketones NEGATIVE Urine Nitrite NEGATIVE Urine Bilirubin NEGATIVE Urine Urobilinogen 0.2 E.U./dL Urine Leukocyte Esterase 3+ Urine Microscopic RBC >50/HPF Urine Microscopic WBC >50/HPF Urine Squamous Epithelial Cells FEW/HPF Urine Bacteria MODERATE/HPF Urine Hemoglobin 3+ Urine Glucose NEGATIVE% Urine Total Protein 1+ Lactic Acid Level 7.5mmol/L Blood Gas Specimen Source Blood arterial Arterial Blood Date Drawn 09/15/2016 12:23:58 PM Arterial Blood pH (Temp corrected) 7.149 Arterial Blood pCO2 (Temp correct) 41.3mmhg Arterial Blood pO2 (Temp corrected) 74.0mmHG Arterial Blood HCO3 14.0mmol/L Arterial Blood Base Excess -14.2mmol/L Arterial Blood Oxygen Saturation 90.3mmHG Zaid Test ACCEPTAB Arterial Blood Gas Puncture Site Right Radial Arterial Blood Carboxyhemoglobin 0.3% Arterial Blood Methemoglobin 0.4% Blood Gas A-a O2 Differential 453.0mmHg Oxyhemoglobin Percent 89.7% Total Hemoglobin 12.9g/dl Blood Gas Temperature 37.0C Blood Gas Respiration Rate 14.0 Blood Gas Actual Respiration Rate 30 Blood Gas Modality VENT - AC FiO2 80.0% Blood Gas Tidal Volume 500.0mL Blood Gas Low PEEP Setting 0cmH2O Blood Gas Critical Value Read Back DR. VELAZQUEZ Blood Gas Notified Whom Fadi Blood Gas Notified Time 09/15/2016 12:33:10 PM Current Medications Medications (Trade) Dose Ordered Sig/Deanna Route PRN Reason Start Time Stop Time Status Last Admin Dose Admin Cefepime HCl 50 ml @ 100 mls/hr ONCE STAT IVPB 09/15/16 06:36 09/15/16 07:05 DC 09/15/16 07:11 Vancomycin HCl 250 ml @ 125 mls/hr ONCE ONCE IVPB 09/15/16 07:00 09/15/16 08:59 DC 09/15/16 07:22 Sodium Chloride 1,000 ml @ 1,000 mls/hr Q1H ONCE IV 09/15/16 07:00 09/15/16 07:59 DC 09/15/16 06:57 Sodium Chloride 1,000 ml @ 1,000 mls/hr Q1H ONCE IV 09/15/16 07:00 09/15/16 07:59 DC 09/15/16 07:34 Norepinephrine 250 ml @ ud STK-MED ONCE .ROUTE 09/15/16 08:06 09/15/16 08:07 DC Norepinephrine (Levophed) 250 ml @ 1.875 mls/ hr TITRATE IV 09/15/16 08:30 09/15/16 08:55 Pantoprazole 40 mg 40 mg ONCE ONCE IV 09/15/16 08:30 09/15/16 08:31 DC 09/15/16 11:43 Sodium Chloride (NS) 1,000 ml @ 1,000 mls/hr Q1H ONCE IV 09/15/16 08:30 09/15/16 09:29 DC 09/15/16 08:56 Procedures/MDM UTI with septic shock. Patient was hydrated with 33 cc/kg of IV fluid started on vancomycin and cefepime. Blood pressure remained low and needed to be started on levo fed and central line placed. Blood pressure was stabilized on Levophed and eventually could be weaned off. Patient continued to have a high respiratory rate overbreathing the vent. Acidosis did increase on repeat blood gas. I added an additional IV fluids and increase the tidal volume on the ventilator. I spoke with Dr. Ramirez will be admitting patient to ICU. Also spoke with the patient's son on the phone twice to update them of the condition. EKG interpretation: Sinus tachycardia with 2 PVCs, rate of 125, bifascicular block, nonspecific T-wave abnormality may be rate related, left axis deviation. Chest x-ray interpretation: Patchy obscuration of bilateral diaphragms with apparent retrocardiac density concerning for infiltrate, no pneumothorax, no fracture satellite project site monitor interpretation: Sinus tachycardia temporarily improved with IV fluid, occasional PVCs Critical care time 51 minutes: This includes treatment of severe sepsis, careful fluid administration, immediate antibiotic administration, ventilator management, multiple visits patient's bedside to reassess cardio dynamic status of unstable vital signs, discussion with son, admitting doctor, review of chart. This does not include any billable procedures Central line placement note, right femoral: Sterile technique was used with gown , mask, drape, gloves, chlorhexidine wipe. Sterile ultrasound probe cover use. Ultrasound guidance was used to easily introduce a 7 [place] triple-lumen catheter into the right femoral vein using Seldinger technique. Patient taught the procedure with no complication. Ports flushed well there was good blood flow. Vital signs unchanged. Departure Diagnosis: Primary Impression: Septic shock Additional Impressions: UTI (urinary tract infection) Renal failure Metabolic acidosis Respiratory distress Uremia Condition: Critical QUINTIN VELAZQUEZ DO Sep 15, 2016 07:26
[2016-09-15] MEDS ORDERED: FURO20TA3 GTB (07:27)
[2016-09-15] MEDS ORDERED: MAGN400O4 GTB (07:28)
[2016-09-15] MEDS ORDERED: EPOE40002 SC (07:29)
[2016-09-15] MEDS ORDERED: ACET-141 PO (07:32)
[2016-09-15] MEDS ORDERED: ACET-2047 GTB ×3 (07:32→07:55)
[2016-09-15] MEDS ORDERED: CRAN3875 GTB (07:33)
--- NOTE | 2016-09-15 07:38 | RADRPT ---
PROCEDURE: XR Chest. CLINICAL INDICATION: Possible Sepsis TECHNIQUE: Single frontal view of the chest was obtained COMPARISON: Chest x-ray 05/30/2016 FINDINGS: Right chest wall dual lead pacer device is stable in position. Tracheostomy tube is stable in posit ion. Left PICC line has been removed. There are low lung volumes. The cardiac silhouette is mildly enlarged. There are atherosclerotic ca lcifications of the thoracic aorta. There is increased pulmonary vascular congestion as compared to prior study. There are ill-defined patchy opacities at both lung bases, increase bilaterally as compared to prior study and this may represent worsening atelectasis, consolidation, and / or small partially layerin g pleural effusions. There are degenerative changes of the visualized spine. IMPRESSION: 1. Borderline cardiomegaly with increased thoracic congestion. 2. Interval increase in patchy ill-defined opacities at both lung bases which may be on the basis o f worsening atelectasis, consolidation, and / or small partially layering pleural effusions. RPTAT: PP Physician Migue Date Time Electronically viewed and signed by Physician Migue on 09/15/2016 07:37 /
[2016-09-15 07:40] LABS: INR 1.05; PROTIME 13.7 Sec (12.2-14.2); PT RATIO 1.1
[2016-09-15] MEDS ORDERED: BISA10SU55 RC (07:43)
[2016-09-15] MEDS ORDERED: NA P135E RC (07:44)
[2016-09-15] MEDS ORDERED: ZINC220T GTB (07:45)
[2016-09-15 07:46] LABS: ALBUMIN 2.5 g/dl (3.3-4.9); ALBUMIN/GLOBULIN RATIO 0.73; CREATININE 2.47 mg/dl (0.61-1.24); POTASSIUM 3.5 mmol/L (3.5-5.1); TOTAL PROTEIN 5.9 g/dl (6.1-8.1)
[2016-09-15] MEDS ORDERED: FERR220S2 GTB (07:46)
[2016-09-15 07:57] LABS: TROPONIN-I 0.052 ng/ml (0.00-0.12)
[2016-09-15] MEDS ORDERED: HYDR-906 G-TUBE (07:57)
[2016-09-15] MEDS ORDERED: NORepinephrine 8MG/250 ML (PMX 250 ML ONE (08:06)
[2016-09-15] MEDS ORDERED: PANTOPRAZOLE 40 MG INJ IV ONE (08:30)
[2016-09-15] MEDS: NORepinephrine 8MG/250 ML (PMX 250 ML IV SCH ×2 (08:55→19:00)
[2016-09-15 09:15] LABS: LYMPHOCYTES # 4.6 10^3/ul (0.8-2.9); METAMYELOCYTES %M 5 % (0-0); MONOCYTE # 3.7 10^3/ul (0.3-0.9); MYELOCYTES # 4.6; NEUTROPHIL # 53.5 10^3/ul (1.6-7.5); PROMYELOCYTES % (M) 9 % (0-0)
[2016-09-15 10:57] LABS: ADD SCAN DIFF NO
[2016-09-15 11:11] LABS: ADD UMIC YES; UR BILIRUBIN (Dip) NEGATIVE (NEGATIVE); UR BLOOD (Dip) 3+ (NEGATIVE); UR CLARITY CLOUDY (CLEAR); UR COLOR YELLOW (YELLOW); UR GLUCOSE (Dip) NEGATIVE (NEGATIVE); UR KETONES (Dip) NEGATIVE (NEGATIVE); UR LEUKOCYTE ESTERASE (Dip) 3+ (NEGATIVE); UR NITRITE (Dip) NEGATIVE (NEGATIVE); UR TOTAL PROTEIN (Dip) 1+ (NEGATIVE); UR UROBILINOGEN (Dip) 0.2 E.U./dL (0.1-1.0)
[2016-09-15 11:30] LABS: UR BACTERIA MODERATE /HPF (NONE SEEN)
[2016-09-15 11:31] LABS: UR SQUAMOUS EPITHELIAL CELL FEW /HPF (FEW); URINE RBCS >50 /HPF (0)
[2016-09-15 12:33] LABS: Allen Test ACCEPTAB; Arterial Base Excess -14.2 mmol/L (-3.0-3); Arterial COHb 0.3 % (0.0-3.0); Arterial Fraction of Oxyhgb 89.7 % (93.0-99.0); Arterial MetHb 0.4 % (0.0-1.5); Arterial Total Hemglobin 12.9 g/dl (12.0-18.0); Blood Gas Low PEEP Setting 0 cmH2O; MODE VENT - AC
--- NOTE | 2016-09-15 13:09 | RADRPT ---
PROCEDURE: XR Chest. CLINICAL INDICATION: Increased respiratory rate in a 86-year-old male. TECHNIQUE: Single frontal view of the chest was obtained. COMPARISON: Chest x-ray 05/30/2016 06:05 a.m. chest x-ray 09/15/2016. FINDINGS: A tracheostomy tube is positioned near T4. An NG tube is noted distal to the GE junction. There is a dual channel cardiac pacemaker over the right upper chest wall with electrode leads at the level of the right atrium and right ventricle. There are degenerative osteophytes in the thoracic spine. The heart is enlarged. The cardiomediastinal silhouette and hilar structures are normal. The pulmo nary vasculature is equilibrated. There are vascular calcifications of the aortic arch. There are b ibasilar consolidative infiltrates which have worsened when compared to 05/30/2016. There are littl e changed compared to more recent study of 09/15/2016. The costophrenic angles are normal. IMPRESSION: 1. Cardiomegaly with possible mild CHF and alveolar infiltrates in the bases of the lungs. These fi ndings are unchanged. 2. Bilateral pleural effusions are suspected and are unchanged. 3. Dual chamber cardiac pacemaker. 4. 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 RPTAT:AAJJ Physician Chema Date Time Electronically viewed and signed by Physician Chema on 09/15/2016 13:09 JM/
[2016-09-15] MEDS ORDERED: DEXTROSE 5%-0.45% NACL 1,000 ML IV SCH (13:54)
[2016-09-15] MEDS ORDERED: ONDANSETRON 4 MG INJ IV PRN (14:00)
[2016-09-15] MEDS ORDERED: NACL 0.9% 3 ML SYG IV SCH (14:00)
[2016-09-15] MEDS ORDERED: ACETAMINOPHEN 325 MG TAB PO PRN (14:00)
[2016-09-15] MEDS ORDERED: HYDROCODONE/APAP (5/325) TAB PO PRN (14:00)
[2016-09-15] MEDS ORDERED: SODIUM CHLORIDE 0.9% 1L BAG IV SCH (14:00)
[2016-09-15 14:06] LABS: ABNORMAL IP MESSAGE 1; HEMATOCRIT 35.4 % (42.0-52.0); HEMOGLOBIN 10.7 g/dl (14.0-18.0); MEAN CORPUSCULAR HEMOGLOBIN 28.3 pg (29.0-33.0); MEAN CORPUSCULAR HGB CONC 30.2 g/dl (32.0-37.0); MEAN CORPUSCULAR VOLUME 93.7 fl (82.0-101.0); MEAN PLATELET VOLUME 10.7 fl (7.4-10.4); PLATELET COUNT 469 10^3/UL (140-415); RED BLOOD COUNT 3.78 10^6/ul (4.70-6.10); RED CELL DISTRIBUTION WIDTH 17.7 % (11.5-14.5); WHITE BLOOD COUNT 97.9 10^3/ul (4.8-10.8)
--- NOTE | 2016-09-15 14:16 | HP ---
Date/Time of Note Date/Time of Note DATE: 09/15/16 TIME: 14:09 Assessment/Plan VTE Prophylaxis VTE Prophylaxis Intervention: SCD's Assessment/Plan Chief Complaint/Hosp Course 1. Sepsis 2. Respiratory failure, went dependent 3. G tube 4. Bedridden 4. RHINA 5. HS HTN 6. CAD 7. CHF Problems: Assessment/Plan 1. CArdiology consult Dr Kendrick, notified, ID consult Dr Kapadia, notified. Pulmonary consult Dr Garcia, notified 2, Transfer ICU 3. Continue vasopressors 4. Continue a/n 5. Continue mech vent and breathing treatment 6. Place PICC line 7. NPO 8. Sepsis workout HPI/ROS Admit Date/Time Admit Date/Time Hx of Present Illness This 86-year-old male was sent from a long term facility for low oxygen saturation of 84%. He was brought in by paramedics who placed him on oxygen. The patient was unresponsive per notes ER MD HENRIQUEZ Subjective hx not possible: pt non-verbal, pt critical status PMH/Family/Social Past Medical History Medical History: congestive heart failure, coronary artery disease, GI bleed Past Surgical History Past Surgical Hx: bowel resection, other (tracheostomy and G tube) Family History Significant Family History: no pertinent family hx Social History Alcohol Use: none Smoking Status: Never smoker Drug Use: none Exam/Review of Systems Vital Signs Vitals Vital Signs Date Time Temp Pulse Resp B/P Pulse Ox O2 Delivery O2 Flow Rate FiO2 09/15/16 13:03 97.1 128 32 138/123 96 Mechanical Ventilator 10.0 09/15/16 12:47 80 Exam Exam pt is laying in ER on gurney Constitutional: alert Head: atraumatic, normocephalic Eyes: nl conjunctiva ENMT: nl external ears & nose Neck: supple Respiratory: congested cough, crackles/rales, diminished breath sounds Cardiovascular: irregular rhythm Gastrointestinal: distended, other (g tube), soft, surgical scars Genitourinary - Male: nl scrotum Musculoskeletal: muscle weakness (bed bound) Extremities: other (weak pulses) Neurological: confused Labs Result Diagram: 09/15/16 0710 09/15/16 0642 Medications Medications Current Medications Norepinephrine (Levophed) 250 ml @ 1.875 mls/ hr TITRATE IV Last administered on 09/15/16t 08:55; Admin Dose 9.375 MLS/HR; Start 09/15/16 at 08:30 Sodium Chloride 120 ml 120 ml ONCE IV ; Start 09/15/16 at 14:00; Stop 09/15/16 at 19:00 Dextrose/Sodium Chloride (D5-1/2ns) 1,000 ml @ 100 mls/hr Q10H IV ; Start 09/15 at 13:54 Ondansetron HCl (Zofran Inj) 4 mg Q6H PRN IV NAUSEA AND/OR VOMITING; Start at 14:00 Acetaminophen (Tylenol Tab) 650 mg Q6H PRN PO PAIN LEVEL 1-3 OR FEVER; Start at 14:00 Acetaminophen/ Hydrocodone Bitart ([place] (5/325)) 1 tab Q6H PRN PO MODERATE PAIN LEVEL 4-6; Start 09/15/16 at 14:00 Pantoprazole (Protonix Iv) 40 mg DAILY@06 IV ; Start 09/16/16 at 06:00 WANG BELL Sep 15, 2016 14:16
[2016-09-15] MEDS ORDERED: LIDOCAINE 1% (MPF) 5 ML VIAL SC ONE (14:30)
[2016-09-15] MEDS ORDERED: BISACODYL 10 MG SUPP PR PRN (14:30)
[2016-09-15] MEDS ORDERED: ACETAMINOPHEN 650MG/20.3ML CUP GTB PRN (14:30)
[2016-09-15 14:57] LABS: ANISOCYTOSIS 1+ (0-0); MICROCYTOSIS 1+ (0-0); POIKILOCYTOSIS 3+ (0-0); POLYCHROMASIA 3+ (0-0); PROMYELOCYTES % (M) 8 % (0-0)
[2016-09-15 15:23] LABS: ERYTHROBLAST% (NRBC) (M) 4 % (0-0); METAMYELOCYTES %M 10 % (0-0)
[2016-09-15 16:33] LABS: WHITE BLOOD COUNT 92.2 10^3/ul (4.8-10.8)
--- NOTE | 2016-09-15 17:15 | CONS ---
Date/Time of Note Date/Time of Note DATE: 09/15/16 TIME: 17:15 Consultation Date/Type/Reason Admit Date/Time Type of Consultation: ID Reason for Consultation This is Dr. Max Campbell dictating infectious disease consult on Shira Mcdaniels , date of admission 09/15 date of consultation and dictation 09/15/2016, the reason for consultation is antibiotic management. Patient is an 86-year-old male who was sent in from his senior care facility for low oxygen saturation patient was unresponsive on admission. Past problems include: #1 ventilator dependent respiratory failure #2 status post tracheostomy. #3 asthma #4 altered level of consciousness. On admission his white count was 92.2 H&H of 11.2 and 37.4 platelet count 449, 000. BUN creatinine 148/2.47. Chest x-ray showed cardiomegaly with mild CHF and alveolar infiltrates in the bases of the lungs. He had bilateral pleural effusions, a dual-chamber cardiac pacemaker, and atherosclerotic vascular disease as well as spondylosis of the thoracic spine. A repeat x-ray showed an interval increase in patchy ill-defined opacities at both lung bases which may be on the basis of worsening atelectasis, consolidation, and/or small partially layering pleural effusions. Blood cultures 4 were ordered, urine culture was ordered and the patient was started on vancomycin and cefepime. He was placed on norepinephrine to titrate his blood pressure and will be transferred to the intensive care unit when a bed is available Past medical history as outlined Past surgical history: Status post bowel resection, tracheostomy and G-tube placement Family history is noncontributory Social history: He does not smoke drink or abuse drugs No known allergies Medications per chart Review of systems could not be obtained. On physical examination patient is an elderly appearing male who is awake on a respirator. He is afebrile SHEENT within normal limits Neck: Tracheostomy in place Chest decreased breath sounds at the bases with occasional rales Heart: Irregular rhythm Abdomen is soft distended, G-tube in place, surgical scars present. Extremities: Without cyanosis clubbing or edema Neurological exam: Patient is confused, no focal neurological abnormalities. Impression plan: Patient is an 86-year-old male who comes in now from senior care facility with what appears to be fever and a markedly elevated white count of 99.2. This could be a leukemoid reaction or evidence of leukemia. Blood cultures and urine cultures were ordered and the patient was started on vancomycin and cefepime. We will continue him on this regimen. 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 Past Medical History Medical History: congestive heart failure, coronary artery disease, GI bleed Past Surgical History Past Surgical Hx: bowel resection, other (tracheostomy and G tube) Social History Alcohol Use: none Smoking Status: Never smoker Drug Use: none Exam/Review of Systems Vital Signs Vitals Vital Signs Date Time Temp Pulse Resp B/P Pulse Ox O2 Delivery O2 Flow Rate FiO2 09/15/16 17:00 98.0 125 20 106/48 98 Mechanical Ventilator 10.0 09/15/16 14:57 80 Results Result Diagram: 09/15/16 1048 09/15/16 0642 Results 24 hrs Laboratory Tests Test 09/15/16 06:36 09/15/16 06:42 09/15/16 07:10 09/15/16 09:25 Blood Gas Specimen Source Blood arterial Arterial Blood Date Drawn 09/15/2016 6:55:27 AM Arterial Blood pH (Temp corrected) 7.213 *L Arterial Blood pCO2 (Temp correct) 38.5 Arterial Blood pO2 (Temp corrected) 153.7 H Arterial Blood HCO3 15.2 L Arterial Blood Base Excess -11.9 L Arterial Blood Oxygen Saturation 98.2 Zaid Test ACCEPTAB Arterial Blood Gas Puncture Site Left Radial Arterial Blood Carboxyhemoglobin 0.3 Arterial Blood Methemoglobin 0.5 Blood Gas A-a O2 Differential 520.8 H Oxyhemoglobin Percent 97.4 Total Hemoglobin 11.6 L Blood Gas Temperature 37.0 Blood Gas Respiration Rate 14.0 Blood Gas Actual Respiration Rate 31 Blood Gas Modality VENT - AC FiO2 100.0 Blood Gas Tidal Volume 500.0 Blood Gas Low PEEP Setting 0 Blood Gas Critical Value Read Back DR. VELAZQUEZ Blood Gas Notified Whom Fadi Blood Gas Notified Time 09/15/2016 7:06:12 AM Sodium Level 137 Potassium Level 3.5 Chloride Level 91 L Carbon Dioxide Level 20 L Anion Gap 30 H Blood Urea Nitrogen 148 H Creatinine 2.47 H Glucose Level 140 Calcium Level 12.0 H Total Bilirubin 0.0 L Direct Bilirubin 0.00 Indirect Bilirubin 0.0 Aspartate Amino Transf (AST/SGOT) 72 H Alanine Aminotransferase (ALT/SGPT) 31 Alkaline Phosphatase 147 H Troponin I 0.052 Total Protein 5.9 L Albumin 2.5 L Globulin 3.40 H Albumin/Globulin Ratio 0.73 White Blood Count 92.2 #H Red Blood Count 3.95 #L Hemoglobin 11.2 #L Hematocrit 37.4 #L Mean Corpuscular Volume 94.7 Mean Corpuscular Hemoglobin 28.4 L Mean Corpuscular Hemoglobin Concent 29.9 L Red Cell Distribution Width 17.7 H Platelet Count 449 #H Mean Platelet Volume 11.6 H Neutrophils % 58.0 Band Neutrophils % 14.0 H Lymphocytes % 5.0 L Monocytes % 4.0 Eosinophils % Basophils % Metamyelocytes % (manual) 5 H Myelocytes % (Manual) 5.0 H Promyelocytes % (Manual) 9 H Neutrophils # 53.5 H Lymphocytes # 4.6 H Monocytes # 3.7 H Eosinophils # Basophils # Metamyelocytes # 4.6 Myelocytes # 4.6 Promyelocytes # 8.3 Differential Comment Prothrombin Time 13.7 Prothrombin Time Ratio 1.1 INR International Normalized Ratio 1.05 Activated Partial Thromboplast Time 35.0 Lactic Acid Level 7.1 *H Test 09/15/16 10:48 09/15/16 11:17 09/15/16 11:35 09/15/16 13:55 White Blood Count 97.9 H Red Blood Count 3.78 L Hemoglobin 10.7 L Hematocrit 35.4 L Mean Corpuscular Volume 93.7 Mean Corpuscular Hemoglobin 28.3 L Mean Corpuscular Hemoglobin Concent 30.2 L Red Cell Distribution Width 17.7 H Platelet Count 469 H Mean Platelet Volume 10.7 H Neutrophils % 45.0 Band Neutrophils % 28.0 H Lymphocytes % 5.0 L Monocytes % Eosinophils % Basophils % Metamyelocytes % (manual) 10 H Myelocytes % (Manual) 6.0 H Promyelocytes % (Manual) 8 H Nucleated Red Blood Cells % 4 H Neutrophils # Lymphocytes # Monocytes # Eosinophils # Basophils # Nucleated Red Blood Cells # Polychromasia 3+ Poikilocytosis 3+ Anisocytosis 1+ Microcytosis 1+ Urine Color YELLOW Urine Clarity CLOUDY H Urine pH 5.5 Urine Specific [place] 1.010 Urine Ketones NEGATIVE Urine Nitrite NEGATIVE Urine Bilirubin NEGATIVE Urine Urobilinogen 0.2 E.U./dL Urine Leukocyte Esterase 3+ H Urine Microscopic RBC >50 Urine Microscopic WBC >50 Urine Squamous Epithelial Cells FEW Urine Bacteria MODERATE Urine Hemoglobin 3+ H Urine Glucose NEGATIVE Urine Total Protein 1+ H Lactic Acid Level 7.5 *H 6.6 *H Blood Gas Specimen Source Blood arterial Arterial Blood Date Drawn 09/15/2016 12:23:58 PM Arterial Blood pH (Temp corrected) 7.149 *L Arterial Blood pCO2 (Temp correct) 41.3 Arterial Blood pO2 (Temp corrected) 74.0 L Arterial Blood HCO3 14.0 L Arterial Blood Base Excess -14.2 L Arterial Blood Oxygen Saturation 90.3 L Zaid Test ACCEPTAB Arterial Blood Gas Puncture Site Right Radial Arterial Blood Carboxyhemoglobin 0.3 Arterial Blood Methemoglobin 0.4 Blood Gas A-a O2 Differential 453.0 H Oxyhemoglobin Percent 89.7 L Total Hemoglobin 12.9 Blood Gas Temperature 37.0 Blood Gas Respiration Rate 14.0 Blood Gas Actual Respiration Rate 30 Blood Gas Modality VENT - AC FiO2 80.0 Blood Gas Tidal Volume 500.0 Blood Gas Low PEEP Setting 0 Blood Gas Critical Value Read Back DR. VELAZQUEZ Blood Gas Notified Whom Fadi Blood Gas Notified Time 09/15/2016 12:33:10 PM Medications Medications Current Medications Norepinephrine (Levophed) 250 ml @ 1.875 mls/ hr TITRATE IV Last administered on 09/15/16 08:55; Admin Dose 9.375 MLS/HR; Start 09/15/16 at 08:30 Sodium Chloride 120 ml 120 ml ONCE IV Last administered on 09/15/16 14:37; Admin Dose 1,000 ML; Start 09/15/16 at 14:00; Stop 09/15/16 at 19:00 Dextrose/Sodium Chloride (D5-1/2ns) 1,000 ml @ 100 mls/hr Q10H IV Last administered on 09/15/16 14:18; Admin Dose 100 MLS/HR; Start 09/15/16 at 13:54 Ondansetron HCl (Zofran Inj) 4 mg Q6H PRN IV NAUSEA AND/OR VOMITING; Start at 14:00 Acetaminophen (Tylenol Tab) 650 mg Q6H PRN PO PAIN LEVEL 1-3 OR FEVER; Start at 14:00 Acetaminophen/ Hydrocodone Bitart (Orange (5/325)) 1 tab Q6H PRN PO MODERATE PAIN LEVEL 4-6; Start 09/15/16 at 14:00 Pantoprazole 40 mg 40 mg DAILY@06 IV ; Start 09/16/16 at 06:00 Norepinephrine/ Dextrose (Levophed/D5W) 500 ml @ 0 mls/hr TITRATE IV ; Start at 14:30 Ascorbic Acid (Vitamin C) 500 mg DAILY GTB ; Start 09/16/16 at 09:00 Aspirin (Aspirin) 325 mg DAILY GTB ; Start 09/16/16 at 09:00 Bisacodyl (Dulcolax Supp) 10 mg DAILY PRN MA CONSTIPATION; Start 09/15/16 at 14 :30 Cholecalciferol (Vitamin D) 800 units DAILY GTB ; Start 09/16/16 at 09:00 Docusate Sodium (Colace) 100 mg BID PO ; Start 09/15/16 at 21:00 Multivitamins Therapeutic (Theragran) 1 tab DAILY GTB ; Start 09/16/16 at 09:00 Tamsulosin HCl (Flomax) 0.4 mg HS PO ; Start 09/15/16 at 21:00 Zinc Sulfate (Zinc Sulfate) 220 mg DAILY GTB ; Start 09/16/16 at 09:00 MAX CAMPBELL MD Sep 15, 2016 17:15
[2016-09-15 17:21] LABS: NUCLEATED RED BLOOD CELLS # 2.2 10^3/ul (0.0-0.0)
[2016-09-15 18:08] LABS: TROPONIN-I 0.062 ng/ml (0.00-0.12)
[2016-09-15 18:12] LABS: CK-MB 2.63 ng/ml (0.0-2.4); CREATINE KINASE < 20 IU/L (23-200)
[2016-09-15] MEDS: DEXTROSE 5%-0.45% NACL 1,000 ML IV SCH ×2 (18:27→21:47)
[2016-09-15 20:06] LABS: CALCIUM 8.9 mg/dl (8.4-10.2); CREATININE 2.05 mg/dl (0.61-1.24); POTASSIUM 3.4 mmol/L (3.5-5.1)
[2016-09-15] MEDS ORDERED: DOCUSATE SODIUM 100 MG CAP PO SCH (21:00)
[2016-09-15] MEDS ORDERED: TAMSULOSIN (SR) 0.4 MG CAP PO SCH (21:00)
[2016-09-15] MEDS ORDERED: MEROPENEM 1 GM/50ML(PMX) 50 ML IVPB SCH (21:00)
[2016-09-15] MEDS ORDERED: MEROPENEM 2 GM in SOD CHLORIDE 0.9% 100 ML IVPB SCH (21:00)
[2016-09-16] VITALS (30 sets, daily range): BP systolic 42–102; BP diastolic 28–80; PULSE 61–121; RESP 17–27
[2016-09-16] MEDS: PHENYLephrine 40 MG in DEXTROSE 5% 496 ML IV SCH ×2 (00:10→02:20)
[2016-09-16 01:47] LABS: TROPONIN-I 0.086 ng/ml (0.00-0.12)
[2016-09-16 01:59] LABS: CK-MB 4.76 ng/ml (0.0-2.4)
[2016-09-16] MEDS ORDERED: NA BICARBONATE 8.4% 50 ML SYG ONE (02:05)
[2016-09-16] MEDS ORDERED: NA BICARBONATE 8.4% 50 ML SYG IV ONE (02:15)
[2016-09-16] MEDS ORDERED: PHENYLephrine 160 MG in DEXTROSE 5% 484 ML IV SCH (02:30)
[2016-09-16] MEDS ORDERED: SODIUM BICARBONATE (IV ADD) 100 MEQ in DEXTROSE 5% 900 ML IV SCH (02:30)
[2016-09-16] MEDS ORDERED: VASOPRESSIN 60 UNIT in DEXTROSE 5% 57 ML IV SCH (03:00)
[2016-09-16 05:53] LABS: ABNORMAL IP MESSAGE 1; HEMATOCRIT 34.1 % (42.0-52.0); HEMOGLOBIN 9.4 g/dl (14.0-18.0); MEAN CORPUSCULAR HEMOGLOBIN 28.1 pg (29.0-33.0); MEAN CORPUSCULAR HGB CONC 27.6 g/dl (32.0-37.0); MEAN CORPUSCULAR VOLUME 102.1 fl (82.0-101.0); MEAN PLATELET VOLUME 11.1 fl (7.4-10.4); NUCLEATED RED BLOOD CELLS% 5.2 /100WBC (0.0-0.0); PLATELET COUNT 265 10^3/UL (140-415); POSITIVE DIFF @See below; RED BLOOD COUNT 3.34 10^6/ul (4.70-6.10); WHITE BLOOD COUNT 121.5 10^3/ul (4.8-10.8)
[2016-09-16] MEDS ORDERED: PANTOPRAZOLE 40 MG INJ IV SCH (06:00)
[2016-09-16 06:21] LABS: ALBUMIN 1.4 g/dl (3.3-4.9); ALBUMIN/GLOBULIN RATIO 0.7; CALCIUM 7.6 mg/dl (8.4-10.2); CREATININE 1.96 mg/dl (0.61-1.24); MAGNESIUM 2.3 mg/dl (1.7-2.5); POTASSIUM 4.4 mmol/L (3.5-5.1); TOTAL PROTEIN 3.4 g/dl (6.1-8.1)
[2016-09-16 06:30] LABS: TROPONIN-I 0.109 ng/ml (0.00-0.12)
[2016-09-16 06:31] LABS: CK-MB 5.55 ng/ml (0.0-2.4)
[2016-09-16] MEDS ORDERED: DOPamine-D5W 1.6 MG/ML 250 ML IV SCH (08:00)
--- NOTE | 2016-09-16 08:22 | EN ---
Date/Time of Note Date/Time of Note DATE: 09/16/16 TIME: 08:20 ER Progress Note I was called to the patient's bedside because of a CODE BLUE. In short: I was called to the intensive care unit for a chemical code. The patient is trached. The patient went asystolic despite pacemaker. General: Unresponsive Head: Normocephalic, atraumatic Eyes: Fixed and dilated pupils ENT: Moist mucous membranes Neck: Supple, no lymphadenopathy Respiratory: No spontaneous respiratory activity Cardiovascular: No spontaneous cardiac activity Abdominal: Soft, non-protuberant, no pulsatile mass : Deferred MSK: No spontaneous motor activity Neurologic: No spontaneous neurologic activity Skin: No evidence of trauma CODE BLUE events: The patient had received 2 rounds of epinephrine prior to my arrival. Upon my assessment the patient was asystolic with pacemaker spikes but no cardiac activity, no pulses, no spontaneous respiratory activity. Further dosing of epinephrine through the IV without chest compressions is not medically sound. I believe further doses of epinephrine are futile. I had a conversation with the patient's sons and discussed the futility of further resuscitation with chemical code only. The patient was declared . Disposition: Diagnostic impression: Time of 7:59 AM JAVIER SOARES MD Sep 16, 2016 08:22
[2016-09-16] MEDS ORDERED: ASPIRIN 325 MG TAB GTB SCH (09:00)
[2016-09-16] MEDS ORDERED: ZINC SULFATE 220 MG CAP GTB SCH (09:00)
[2016-09-16] MEDS ORDERED: CHOLECALCIFEROL 400 UNITS TAB GTB SCH (09:00)
[2016-09-16] MEDS ORDERED: ASCORBIC ACID 500 MG TAB GTB SCH (09:00)
[2016-09-16] MEDS ORDERED: MULTIVITAMINS THERAPEUTIC TAB GTB SCH (09:00)
--- NOTE | 2016-09-16 10:52 | CONS ---
DATE OF ADMISSION: 09/15/2016 DATE OF CONSULTATION: 09/15/2016 REASON FOR CONSULTATION: Cardiomyopathy with decreased left ventricular ejection fraction, congestive heart failure. HISTORY OF PRESENT ILLNESS: Mr. Mcdaniels is an 86-year-old known to myself due to prolonged prior hospital admission with a history of cardiomyopathy with decreased left ventricular ejection fraction, last one approximately 25 percent to 30 percent by echo June 2016, respiratory failure, chronic, status post a trach; recurrent bouts of congestive heart failure, systolic hypertension, permanent pacemaker, SVT consistent with paroxysmal atrial fibrillation, atrial flutter, recent perforated abdominal viscus, encephalopathy, who presents with worsening respiratory distress and hypoxia. Initially upon arrival, temperature 97.1, blood pressure of 48/27, pulse 125, satting 100 percent on FiO2 of 50 percent. Patient's labs revealed a white blood cell count 92.2, hemoglobin 11.2, platelet count of 449. Sodium 137, potassium 4.5, creatinine 2.4, BUN of 148. AST 72, ALT 31. Lactic acid is 7.1. ABG revealing a pH of 7.213, PO2 of 153, pCO2 of 38.5. INR of 1.0. UA positive. Patient underwent a chest x-ray revealing cardiomegaly with congestive heart failure, bilateral pleural effusions, dual-chamber cardiac pacemaker. Patient's electrocardiogram revealed rhythm likely most consistent with sinus tach, rate of 125, left axis deviation, right bundle branch block, left ventricular fascicular block, secondary repolarization abnormalities. Patient subsequently has required initiation of Levophed pressor support, been given a total of 4 L of IV fluids, covered with broad-spectrum antibiotics with cefepime and vancomycin, remains in significant respiratory distress, but with recently improved blood pressures on Levophed and tachycardia to the 120s. The patient, at this time, does respond to questioning pertaining to any chest pain, shortness of breath. PAST MEDICAL HISTORY: As above in HPI. MEDICATION: Currently in the hospital, vitamin C, aspirin 325 daily, zinc sulfate, Protonix IV, Colace 100 mg b.i.d., 0.4 mg p.o. at bedtime, Levophed pressor support, Dulcolax p.r.n., Zofran p.r.n., Tylenol p.r.n., IV fluid hydration at 100 cc an hour. ALLERGIES: NO KNOWN DRUG ALLERGIES. SOCIAL HISTORY: No current tobacco, EtOH or illicit drug use. FAMILY HISTORY: Negative for sudden cardiac or early CAD. REVIEW OF SYSTEMS: As above in HPI. CONSTITUTIONAL: No fever, chills. RESPIRATORY: Respiratory failure, chronic, status post trach, worsening hypoxia. GASTROINTESTINAL: Dysphagia. Does have a G-tube. GENITOURINARY: Renal failure. PSYCHIATRIC: No documented psych history. NEUROLOGIC: Encephalopathy. HEMATOLOGIC: Anemia. PHYSICAL EXAMINATION: VITAL SIGNS: Temperature of 98.3, blood pressure 101/58, pulse 126, respiratory rate 24, satting 98 percent on 10 L. GENERAL: The patient is alert, encephalopathic, nonresponsive. NECK: Tracheostomy in place. CHEST: Upper airways reveal rhonchorous sounds. CARDIAC: Tachycardic. Regular rhythm. Normal S1, increased S2. 1/6 systolic murmur. Laterally displaced PMI. ABDOMEN: Distended. Hyperactive bowel sounds. EXTREMITIES: No pitting edema. Difficult to palpate distal pulses, bilaterally posterior tibial. LABORATORY: Most recant today, new ABG revealing a pH of 7.149, pCO2 of 41, PaO2 of 74. Lactic acid of 6.6 most recently. White blood cell count 97.9, hemoglobin 10.7, platelet count of 469. IMPRESSION: 1. Congestive heart failure exacerbating the systolic, acute on chronic. cardiomegaly with severely depressed left ventricular ejection fraction, last one approximately 25 percent to 30 percent. 2. Abnormal electrocardiogram. Assess for acute coronary syndrome. 3. Tachycardia consistent with sinus tachycardia at this time. 4. History of paroxysmal atrial fibrillation, atrial flutter. 5. Chronic respiratory failure, status post tracheostomy. 6. Dysphagia, status post G-tube. 7. Encephalopathy. 8. Hypoxia, worsening. 9. Renal failure. 10. Hypotension, shock, on pressors. 11. Leukocytosis, severe, assess for malignancy. 12. Anemia. 13. Acidosis. 14. Urinary tract infection. RECOMMENDATIONS: 1. At this time, patient will be admitted to ICU and placed on continuous telemetry monitoring. 2. Patient will continue to maintain on Levophed pressor support with weaning as tolerates. 3. Continue patient's intravenous fluid resuscitation at this time. 4. Would complete a rule out for myocardial infarction to assess for the possibility if the patient's symptoms are due to possible acute coronary syndrome, acute myocardial infarction. 5. Correct patient's acid base status. 6. Continue broad-spectrum antibiotics and follow up all culture data. 7. Overall poor prognosis and recommend discussion with the family pertaining to code status. 8. Continue patient's aspirin at this time for prophylaxis and cardiac events and we will continue to check serial EKGs to assess for any significant ongoing change. EKG in the morning. EKG for any complaint of chest pain or change in rhythm. Thank you for allowing me to take part in the care of this patient. I will continue to follow him very closely with you. Further recommendations will be made as patient progresses through his inpatient hospital course. Dictated By: Ancelmo Amador /brody/jena /Document#: [id number] CC: Bladimir Ramirez MD;*[facility]*
[2016-09-16 11:48] LABS: LYMPHOCYTES # 8.5 10^3/ul (0.8-2.9); METAMYELOCYTES %M 15 % (0-0); MONOCYTE # 2.4 10^3/ul (0.3-0.9); NEUTROPHIL # 19.4 10^3/ul (1.6-7.5); PROMYELOCYTES #M 13 # (0-0); PROMYELOCYTES % (M) 11 % (0-0)
--- NOTE | 2016-09-16 17:14 | DES ---
Date/Time of Note Date/Time of Note DATE: 09/16/16 TIME: 17:13 Discharge/ Summary Admission/Discharge Info Admit Date/Time Sep 15, 2016 at 14:02 Discharge Date/Time Sep 16, 2016 at 07:59 Final Diagnosis Sepsis, respiratory failure Preliminary Cause of Asystole, cardio-pulmonary arrest Hx of Present Illness This 86-year-old male was sent from a alf facility for low oxygen saturation of 84%. He was brought in by paramedics who placed him on oxygen. The patient was unresponsive per notes ER MD Hospital Course 1. Sepsis 2. Respiratory failure, went dependent 3. G tube 4. Bedridden 4. RHINA 5. HS HTN 6. CAD 7. CHF Pending Labs/Cultures Laboratory Tests Test 09/15/16 17:30 09/16/16 01:07 09/16/16 05:00 Sodium Level 137mmol/L (135-144) 137mmol/L (135-144) Potassium Level 3.4mmol/L (3.5-5.1) 4.4mmol/L (3.5-5.1) Chloride Level 105mmol/L (97-110) 101mmol/L (97-110) Carbon Dioxide Level 13mmol/L (21-31) 13mmol/L (21-31) Anion Gap 22 (8-16) 27 (8-16) Blood Urea Nitrogen 130mg/dl (7-20) 113mg/dl (7-20) Creatinine 2.05mg/dl (0.61-1.24) 1.96mg/dl (0.61-1.24) Glucose Level 102mg/dl (70-220) 134mg/dl (70-220) Calcium Level 8.9mg/dl (8.4-10.2) 7.6mg/dl (8.4-10.2) Creatine Kinase < 20IU/L (23-200) 99IU/L (23-200) 136IU/L (23-200) Creatine Kinase Index 4.8 4.1 Creatinine Kinase MB (Mass) 2.63ng/ml (0.0-2.4) 4.76ng/ml (0.0-2.4) 5.55ng/ml (0.0-2.4) Troponin I 0.062ng/ml (0.00-0.12) 0.086ng/ml (0.00-0.12) 0.109ng/ml (0.00-0.12) White Blood Count 121.510^3/ul (4.8-10.8) Red Blood Count 3.3410^6/ul (4.70-6.10) Hemoglobin 9.4g/dl (14.0-18.0) Hematocrit 34.1% (42.0-52.0) Mean Corpuscular Volume 102.1fl (82.0-101.0) Mean Corpuscular Hemoglobin 28.1pg (29.0-33.0) Mean Corpuscular Hemoglobin Concent 27.6g/dl (32.0-37.0) Red Cell Distribution Width 18.0% (11.5-14.5) Platelet Count 41291^3/UL (140-415) Mean Platelet Volume 11.1fl (7.4-10.4) Neutrophils % 16.0% (39.0-77.0) Lymphocytes % 7.0% (15.0-51.0) Monocytes % 2.0% (0.0-11.0) Eosinophils % % (0.0-7.0) Basophils % % (0.0-2.0) Metamyelocytes % (manual) 15% (0-0) Myelocytes % (Manual) 8.010^3/ul (0.0-0.0) Promyelocytes % (Manual) 11% (0-0) Nucleated Red Blood Cells % 5.2/100WBC (0.0-0.0) Neutrophils # 19.410^3/ul (1.6-7.5) Band Neutrophils # 19.410^3/ul (0.0-0.6) Lymphocytes # 8.510^3/ul (0.8-2.9) Monocytes # 2.410^3/ul (0.3-0.9) Eosinophils # 10^3/ul (0.0-0.5) Basophils # 10^3/ul (0.0-0.1) Metamyelocytes # 18.210^3/ul (0.0-0.0) Myelocytes # 9.710^3/ul (0.0-0.0) Promyelocytes # 13# (0-0) Nucleated Red Blood Cells # 10^3/ul (0.0-0.0) Lactic Acid Level 12.4mmol/L (0.5-2.0) Phosphorus Level 9.0mg/dl (2.5-4.9) Magnesium Level 2.3mg/dl (1.7-2.5) Total Bilirubin 0.0mg/dl (0.2-1.3) Direct Bilirubin 0.00mg/dl (0.00-0.20) Indirect Bilirubin 0.0mg/dl (0-1.1) Aspartate Amino Transf (AST/SGOT) 156IU/L (15-46) Alanine Aminotransferase (ALT/SGPT) 62IU/L (13-69) Alkaline Phosphatase 82IU/L (42-121) Total Protein 3.4g/dl (6.1-8.1) Albumin 1.4g/dl (3.3-4.9) Globulin 2.00g/dl (1.3-3.2) Albumin/Globulin Ratio 0.70 WANG BELL Sep 16, 2016 17:14
--- NOTE | 2016-09-18 15:52 | RADRPT ---
Vent Rate: 101 bpm RR Interval: 0 msec MT Interval: 0 msec QRS Duration: 132 msec QT Interval: 376 msec QTC Interval: 487 msec P-R-T [place]: 0 - -50 - 118 degrees Wide QRS rhythm Right bundle branch block Left anterior fascicular block Bifascicular block Abnormal ECG Electronically Signed By: Clyde Kendrick [id number]
== END 2016-09-16 07:59 | disposition expired | DRG 871 ==
LOC: E/R 06:30 → ICU 14:02
PROVIDERS: ADMIT Internal Medicine Nephrology; ATTEND Internal Medicine Nephrology
PROC: 5A1945Z Respiratory Ventilation, 24-96 Consecutive Hours (ICD-10-PCS; principal; 2016-09-15)
DX: A41.9 Sepsis, unspecified organism (principal); I50.23 Acute on chronic systolic (congestive) heart failure; J96.21 Acute and chronic respiratory failure with hypoxia; R57.8 Other shock; Z99.11 Dependence on respirator [ventilator] status; N17.9 Acute kidney failure, unspecified; G93.40 Encephalopathy, unspecified; Z93.0 Tracheostomy status; J98.11 Atelectasis; E87.2 Acidosis; N39.0 Urinary tract infection, site not specified; R65.20 Severe sepsis without septic shock; I25.10 Atherosclerotic heart disease of native coronary artery without angina pectoris; J45.909 Unspecified asthma, uncomplicated; I46.9 Cardiac arrest, cause unspecified; I11.0 Hypertensive heart disease with heart failure; R00.0 Tachycardia, unspecified; R13.10 Dysphagia, unspecified; D64.9 Anemia, unspecified; Z95.0 Presence of cardiac pacemaker; Z74.01 Bed confinement status; Z90.49 Acquired absence of other specified parts of digestive tract; Z93.1 Gastrostomy status
CPT/HCPCS: 36415; 36600; 71010; 76937; 80048; 80053; 81001; 82550; 82553; 82803; 83605; 83735; 84100; 84443; 84484; 85025; 85610; 85730; 87040; 87081; 87086; 93005; 94002; 94003; 96365; 96366; 96368; 96375; C9113; J1265; J2185; J3370; J7030; J7042; J7060; J7070